=== PATIENT | female | born 1970 | race Caucasian/White ===

== ENCOUNTER 2020-07-21 18:38 | Inpatient (IN) | payer MEDICARE, MEDICAID, SELFPAY ==
[2020-07-21] VITALS (10 sets, daily range): BP systolic 111–118; BP diastolic 59–66; PULSE 80–122; RESP 16–24; TEMP 36.6; O2SAT 94–97; BMI 45.7
--- NOTE | ~2020-07-21 | XR_ITS ---
EXAMINATION: XR HUMERUS, RIGHT CLINICAL INFORMATION: Follow-up humeral head fracture COMPARISON: 08/26/2020 TECHNIQUE: AP and lateral views of the right humerus. FINDINGS: Again seen is the cortical defect in the region of the greater tuberosity which appears less sharp indicative of interval periosteal reaction and some healing. No new fractures are seen. No tendinous calcification is seen. XR/XR humerus RT IMPRESSION: Healing fracture greater tuberosity.
--- NOTE | ~2020-07-21 | XR_ITS ---
EXAMINATION: XR HUMERUS, RIGHT CLINICAL INFORMATION: Injury COMPARISON: None TECHNIQUE: AP and lateral views of the right humerus. FINDINGS: There is a nondisplaced fracture of the humeral head at the tuberosity. No dislocation. XR/XR humerus RT IMPRESSION: Nondisplaced fracture of the humeral head tuberosity.
[2020-07-21] MEDS: LORazepam 2 MG/ML VIAL IM (19:09)
[2020-07-21] MEDS: Haloperidol Lactate 5 MG/ML VIAL IM (19:09)
[2020-07-21] MEDS: OLANZapine 10 MG VIAL 5 MG IM (20:00)
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
[2020-07-21 23:33] LABS: MANUAL DIFF FLAG NO
[2020-07-21 23:34] LABS: Basophils Absolute Auto 0.1 X10*3/uL (0.0-0.2); Basophils Percent Auto 0.3 % (0-2); Eosinophils Percent Auto 0.2 % (0-4); Hematocrit 43.8 % (37-47); Hemoglobin 14.9 g/dl (12.0-16.0); Imm Gran Abs Auto 0.07 X10*3/uL (0.00-0.03); Imm Gran Pct Auto 0.4 % (0.0-0.4); Lymphocytes Absolute Auto 2.7 X10*3/uL (1.2-4.9); Lymphocytes Percent Auto 15.1 % (20-40); Mean Corpuscular Hemoglobin 32.2 pg (27.0-33.0); Mean Corpuscular Volume 94.6 fL (80-98); Mean Platelet Volume 9.4 fL (9.4-12.3); Monocytes Percent Auto 5.3 % (2-11); Neutrophils Absolute Auto 14.3 X10*3/uL (2.0-8.3); Neutrophils Percent Auto 78.7 % (45-73); Platelet Count 277 X10*3/uL (160-400); Red Blood Count 4.63 X10*6/uL (4.20-5.50); Red Cell Distribution Width 12.1 % (11.0-16.0); White Blood Count 18.1 X10*3/uL (4.8-10.8)
[2020-07-22] VITALS (8 sets, daily range): BP systolic 111; BP diastolic 63–69; PULSE 73–84; RESP 16–20; O2SAT 98
[2020-07-22 00:10] LABS: Ethanol < 10 mg/dL
[2020-07-22 00:14] LABS: Alanine Aminotransferase 28 U/L (0-31); Alkaline Phosphatase 97 U/L (39-117); Anion Gap 14 (12-20); Aspartate Amino Transferase 25 U/L (5-31); Bilirubin Total 0.8 mg/dL (0.0-1.0); Blood Urea Nitrogen 10 mg/dL (9-16); Calcium 9.1 mg/dL (8.4-10.2); Carbon Dioxide 22 mmol/L (22-29); Chloride 107 mmol/L (96-108); Creatinine Clr Calc Pharmacy 102.7; Estimated Glomerular Filt Rate > 60; Glucose Random 102 mg/dL (60-115); Potassium 3.8 mmol/L (3.3-5.1); Sodium 139 mmol/L (135-145); Total Protein 6.2 g/dL (6.5-8.0)
[2020-07-22 00:20] LABS: HCG Quantitative < 2 mIU/mL
[2020-07-22 02:47] LABS: COVID-19 Test Negative (Negative); IDNOW Serial# 9DD0AD1C
--- NOTE | 2020-07-22 02:50 | PC.NURSE ---
PT SLEEPING. SITTER AT BEDSIDE.
--- NOTE | 2020-07-22 08:59 | PC.NURSE ---
PT EATING BREAKFAST. NEEDS FREQUENT RE-DIRECTION. SITTER MAINTAINED. NOT COOPERATIVE FOR EKG
--- NOTE | 2020-07-22 10:20 | PC.NURSE ---
Pt continues to refuse all care including VS, covid swab, and EKG. Unable to give psych meds at this time due to a need for an EKG prior to administration. Will continue to encourage pt to allow care. Sitter at bedside.
--- NOTE | 2020-07-22 11:54 | PC.NURSE ---
Pt sleeping in bed. She was awakened and asked if we may obtain VS and an EKG. She continues to refuse at this time.
--- NOTE | 2020-07-22 12:07 | PC.NURSE ---
ADRIANA telles- Pt was seen yesterday and is an inpatient psych bed search. She is due for ADRIANA re-eval at 5pm.
[2020-07-22] MEDS: OLANZapine 10 MG VIAL 5 MG IM (14:50)
--- NOTE | 2020-07-22 15:02 | PC.NURSE ---
Addendum entered by Vanesa Miramontes RN 07/22/20 16:25: Pt continues to refuse VS and EKG. She is sleeping but is still uncooperative when she wakes. Jennifer SKIN PEELING MACHINE OPERATOR aware and staff aware. Original Note: Bed on M5. Pt refusing to go and becoming increasingly agitated. Per SKIN PEELING MACHINE OPERATOR give 5mg IM Zyprexa and obtain VS and EKG if able after the injection. Pt was cooperative for the injection but afterward became very upset and combative. Security able to calm her down. M5 called for report. Awaiting call back at this time.
--- NOTE | 2020-07-22 19:14 | PC.ADMIT ---
Nursing admission note: 49 year old female DX: Other specified schizophrenia spectrum and other psychotic disorder. A + O x2 place and name. Referred for admission by [facility],arrived approx 1630. Admitted on section 12b. Patient had been aggressive prior to admission. Engaged for brief period, preoccupied, delayed responses, hard stare at times. Refused to sign any legal documents or MELANIE. Oriented to unit, placed on 5 min checks. Medicated in ED prior to admission with Zyprexa 5mg IM. Patient disorganized and disoriented. Is currently [facility] the [facility]. Is marginally cooperative, in need of frequent redirection. She has been non compliant with medications at [facility] for unknown period of time 2-3 months. House was called for information regarding Ochoa order and last Invega injection, spoke to Deisi who reported last injection Invega 234mg was between April and May 2020, did not believe patient is currently on Ochoa order. Patient reports they pulled me out of bed, I new it wasn't the police or EMT and I don't know why they brought me here . Patient reports I don't take medicine . States she has not been sleeping well. She is dressed in hospital attire, disheveled and malodorous. 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 Patient denies any medical problems. Allergy includes Demerol HCl, Acetaminophen and latex. Tox screen was not obtained, COVID negative. Dr. Painter contacted for admission orders. See crisis evaluation for further details.
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
--- NOTE | 2020-07-24 13:37 | HO.PSYCHPN ---
Subjective Subjective Date of Service: 07/24/20 Reason For Visit: aggression Subjective Notes: Section 12B (07/26/20) Interim History: Pt declines to meet. Collateral contact with Meño Calderon who has worked with pt since pandemic began. Pt in a [facility] setting for a brief time. Prior to this she was in the [facility] 04/2019. Partner's mother has been very involved with pt. While living in that area pt was overusing substances while taking prescribed medications-she improved with medication decrease and Invega Sustenna. She began refusing a few months ago as she discussed not needing medication and experiencing a SE of tiredness. Overall impression by her team is that she did well on Invega Sustenna. Current time frame is anniversary of loss and changes 04/2019-07/2019. Pt has been declining with ADL's, decrease in her appetite, medication non-compliance, poor sleep, paranoia, throwing coffee at her staff, insighting fear in house-mates, aggression, refusing all medical appointments for the past two months, delusional content, misinterpreting identity of others, making accusations of friends in community and unable to accept assistance of any sort. Medication Compliance: No Side effects from medications: Yes (reported to out pt team sedation with Invega Sustenna) Attending Groups: No Review of Systems Review of Systems Yes Unobtainable due to mental status Reports behavioral changes Psychiatric: Reports abnormal sleep pattern, Reports anxiety, Reports behavioral changes, Reports change in appetite, Reports depression, Reports difficulty concentrating, Reports auditory hallucinations, Reports hopelessness, Reports irritability, Reports anhedonia, Reports mood swings and Reports paranoia Mental Status Exam Mental Status Exam Patient Appearance: Disheveled, Unkempt and Malodorous Patient Orientation: Person Level of Consciousness: Awake Patient Behavior: Guarded, Suspicious, Anxious, Fearful, Resistive to Care, Avoidant, Distractible, Isolative and Uncooperative Mood Description: Suspicious, Withdrawn, Constricted, Fearful, Hostile, Anxious, Angry, Sad, Nervous and Apprehensive Affect Description: Constricted Patient Cognition Impaired: Yes Ability to Follow Directions: Poor Speech Pattern: Impoverished, Soft-Spoken and Delayed Hallucinations: Auditory (appears to be responding) Delusions: Paranoid Ideation Perceptual Disturbances: Hallucinations Thought Process: Illogical, Distracted, Rumination and Slowed Thinking Thought Content: positive for Perseveration Depressive Symptoms: Insomnia, Increased Irritability, Difficulty Sleeping, Changes in Appetite, Loss of Int. in Activity, Unhappiness, Loss of Energy and Difficulty Concentrating Abnormal Motor Activity Signs and Symptoms: Restlessness Judgement: Poor Diagnostics Vital Signs (24Hr): Body Mass Index 45.7 Labs Results: 07/21/20 23:28 07/21/20 23:28 Medications Medications Current Medications Generic Name Dose Route Start Last Admin Trade Name Freq PRN Reason Stop Dose Admin Al Hydroxide/Mg Hydroxide 30 ml 07/22/20 16:17 Magnesium Hydrox/Alum Hydrox 30 Ml Oral.Susp PO Q6H PRN Heartburn/Nausea Albuterol Sulfate 2 puff 07/22/20 17:54 Albuterol Sulfate 90 Mcg 8 Gm Inhaler INHALE Q4H PRN Shortness Of Breath Or Wheezing Clonazepam 0.5 mg 07/22/20 17:54 Clonazepam 0.5 Mg Tablet PO Q4H PRN Anxiety Hydroxyzine HCl 25 mg 07/22/20 16:17 Hydroxyzine Hcl 25 Mg Tablet PO BEDTIME PRN Anxiety Lisinopril 5 mg 07/23/20 09:00 07/24/20 09:24 Lisinopril 5 Mg Tablet PO Not Given DAILY [facility] Protocol Magnesium Hydroxide 30 ml 07/22/20 16:17 Milk Of Magnesia 30 Ml Oral.Susp PO DAILY PRN Constipation Melatonin 3 mg 07/22/20 17:58 Melatonin 3 Mg Tablet PO BEDTIME PRN Insomnia Metoprolol Tartrate 25 mg 07/22/20 21:00 07/24/20 09:24 Metoprolol Tartrate 25 Mg Tablet PO Not Given BID [facility] Protocol Multivitamins/Vitamin C 1 tab 07/23/20 09:00 07/24/20 09:25 Multivitamin Tablet PO Not Given DAILY [facility] Naloxone HCl 4 mg 07/22/20 17:54 Naloxone Hcl Nasal 4 Mg [place] NOSTRILALT 07/28/20 23:59 Q3M PRN Opioid Overdose Non-Formulary Medication 1 appl 07/23/20 09:00 Metronidazole [Metrogel] TOPICAL 07/28/20 23:59 DAILY [facility] Nystatin 1 appl 07/22/20 21:00 07/24/20 09:25 Nystatin Powder 15 Gm Bottle TOPICAL Not Given BID [facility] Protocol Paliperidone 3 mg 07/23/20 11:40 07/24/20 09:25 Paliperidone Er 3 Mg Tab.Er.24 PO Not Given DAILY [facility] Paliperidone Palmitate 234 mg 07/22/20 17:54 Paliperidone Palmitate 234 Mg/1.5 Ml Syringe IM Q30D [facility] Senna 17.2 mg 07/22/20 17:59 Sennosides 8.6 Mg Tablet PO DAILY PRN Constipation Trazodone HCl 50 mg 07/22/20 16:17 Trazodone Hcl 50 Mg Tablet PO BEDTIME PRN Insomnia Allergies Allergies Allergy/AdvReac Type Severity Reaction Status Date / Time acetaminophen [From TYLENOL] Allergy Intermediate HIVES Verified 07/22/20 02:13 meperidine [From Demerol] Allergy Unknown Verified 07/22/20 02:10 Assessment & Plan Assessment & Plan (1) Schizo affective schizophrenia: Status: Acute Code(s): F25.9 - Schizoaffective disorder, unspecified Assessment and Plan: -Attempt to initiate alliance of treatment with pt. -Consider civil commitment process if pt continues to refuse care. Greater than 50% of the session was spent on counseling and/or coordination of care Reason for contiued inpatient stay Substantial Risk for: harm to self, harm to others, inability to function and rapid decompensation
--- NOTE | 2020-07-25 17:23 | HO.PSYCHPN ---
Subjective Subjective Date of Service: 07/25/20 Reason For Visit: aggression Subjective Notes: Section 12B Interim History: Withdrawn, in bed, refuses to talk with TW, pulls blankets over her head. Section 12B ends on 07/26/20. Will file for consideration for civil commitment. Medication Compliance: No Side effects from medications: No Attending Groups: No Review of Systems Review of Systems Yes Unobtainable due to mental status Reports behavioral changes Psychiatric: Reports behavioral changes, Reports auditory hallucinations, Reports irritability, Reports anhedonia, Reports mood swings, Reports paranoia, Reports visual hallucinations, Reports hallucinations and Reports homicidal ideation Mental Status Exam Mental Status Exam Patient Appearance: Disheveled, Unkempt and Malodorous Patient Orientation: Person Level of Consciousness: Awake Patient Behavior: Guarded, Suspicious, Aggressive, Anxious, Fearful, Resistive to Care, Avoidant, Fatigued, Distractible, Isolative, Uncooperative, Impulsive and Poor Eye Contact Mood Description: Suspicious, Withdrawn, Depressed, Fearful, Hostile, Anxious, Labile, Angry, Sad and Apprehensive Affect Description: Withdrawn, Labile and Angry Patient Cognition Impaired: Yes Ability to Follow Directions: Poor Speech Pattern: Impoverished and Poor Articulation Memory Description: Remote Impaired, Immediate Impaired, Nursing Home Impaired, Episodic Impaired, Recent Impaired, Working Impaired and Semantic Impaired Hallucinations: Auditory and Visual Delusions: Paranoid Ideation and Present Perceptual Disturbances: Hallucinations Thought Process: Illogical, Distracted and Rumination Thought Content: positive for Perseveration, positive for Preoccupation, positive for Thought Blocking, positive for Slowed Thinking, positive for Tangential and positive for Disorganized Depressive Symptoms: Increased Irritability, Difficulty Sleeping, Changes in Appetite, Loss of Int. in Activity, Feelings of Worthlessness, Hopelessness, Isolating-Friends/Family, Unhappiness, Increased Fatigue, Low Self Esteem, Loss of Energy and Difficulty Concentrating Judgement: Poor Diagnostics Vital Signs (24Hr): Body Mass Index 45.7 Labs Results: 07/21/20 23:28 07/21/20 23:28 Medications Medications Current Medications Generic Name Dose Route Start Last Admin Trade Name Freq PRN Reason Stop Dose Admin Al Hydroxide/Mg Hydroxide 30 ml 07/22/20 16:17 Magnesium Hydrox/Alum Hydrox 30 Ml Oral.Susp PO Q6H PRN Heartburn/Nausea Albuterol Sulfate 2 puff 07/22/20 17:54 Albuterol Sulfate 90 Mcg 8 Gm Inhaler INHALE Q4H PRN Shortness Of Breath Or Wheezing Clonazepam 0.5 mg 07/22/20 17:54 Clonazepam 0.5 Mg Tablet PO Q4H PRN Anxiety Hydroxyzine HCl 25 mg 07/22/20 16:17 Hydroxyzine Hcl 25 Mg Tablet PO BEDTIME PRN Anxiety Lisinopril 5 mg 07/23/20 09:00 07/25/20 09:28 Lisinopril 5 Mg Tablet PO Not Given DAILY [facility] Protocol Magnesium Hydroxide 30 ml 07/22/20 16:17 Milk Of Magnesia 30 Ml Oral.Susp PO DAILY PRN Constipation Melatonin 3 mg 07/22/20 17:58 Melatonin 3 Mg Tablet PO BEDTIME PRN Insomnia Metoprolol Tartrate 25 mg 07/22/20 21:00 07/25/20 09:29 Metoprolol Tartrate 25 Mg Tablet PO Not Given BID [facility] Protocol Multivitamins/Vitamin C 1 tab 07/23/20 09:00 07/25/20 09:29 Multivitamin Tablet PO Not Given DAILY [facility] Naloxone HCl 4 mg 07/22/20 17:54 Naloxone Hcl Nasal 4 Mg [place] NOSTRILALT 07/28/20 23:59 Q3M PRN Opioid Overdose Non-Formulary Medication 1 appl 07/23/20 09:00 Metronidazole [Metrogel] TOPICAL 07/28/20 23:59 DAILY [facility] Nystatin 1 appl 07/22/20 21:00 07/25/20 09:30 Nystatin Powder 15 Gm Bottle TOPICAL Not Given BID [facility] Protocol Paliperidone 3 mg 07/23/20 11:40 07/25/20 09:29 Paliperidone Er 3 Mg Tab.Er.24 PO Not Given DAILY [facility] Paliperidone Palmitate 234 mg 07/22/20 17:54 Paliperidone Palmitate 234 Mg/1.5 Ml Syringe IM Q30D [facility] Senna 17.2 mg 07/22/20 17:59 Sennosides 8.6 Mg Tablet PO DAILY PRN Constipation Trazodone HCl 50 mg 07/22/20 16:17 Trazodone Hcl 50 Mg Tablet PO BEDTIME PRN Insomnia Allergies Allergies Allergy/AdvReac Type Severity Reaction Status Date / Time acetaminophen [From TYLENOL] Allergy Intermediate HIVES Verified 07/22/20 02:13 meperidine [From Demerol] Allergy Unknown Verified 07/22/20 02:10 Assessment & Plan Assessment & Plan (1) Schizo affective schizophrenia: Status: Acute Code(s): F25.9 - Schizoaffective disorder, unspecified Assessment and Plan: Refusing interaction, refusing medication, appears to be responding to internal stimuli. Collateral contact obtained. Will file for consideration for civil commitment on 07/26/20. Greater than 50% of the session was spent on counseling and/or coordination of care Informed Consent: does not understand Reason for contiued inpatient stay Substantial Risk for: harm to self, harm to others, inability to function, rapid decompensation and med/psych decompensation
[2020-07-25 18:00] VITALS: RESP 14
[2020-07-26 04:50] VITALS: RESP 16
--- NOTE | 2020-07-26 17:10 | P.PNPSI_ITS ---
Subjective Subjective Date of Service: 07/26/20 Reason For Visit: aggression Subjective Notes: Section 7 Interim History: Visible in milieu. 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 Appears pre-occupied, not engaging much in her environment. Medication Compliance: No Side effects from medications: No Attending Groups: No Review of Systems Review of Systems Yes Unobtainable due to mental status Reports behavioral changes and Reports confusion Psychiatric: Reports anxiety, Reports behavioral changes, Reports confusion, Reports depression, Reports difficulty concentrating, Reports auditory hallucinations, Reports hopelessness, Reports irritability, Reports paranoia and Reports hallucinations Mental Status Exam Mental Status Exam Patient Appearance: Disheveled and Unkempt Patient Orientation: Person Level of Consciousness: Alert Patient Behavior: Guarded, Suspicious, Anxious, Fearful, Resistive to Care, Avoidant, Fatigued, Distractible, Isolative, Uncooperative and Poor Eye Contact Mood Description: Apathetic, Suspicious, Withdrawn, Hostile and Blunted Affect Description: Withdrawn Patient Cognition Impaired: Yes Ability to Follow Directions: Fair Speech Pattern: Impoverished, Delayed and Poor Articulation Memory Description: Remote Impaired, [facility] Impaired, Episodic Impaired and Recent Impaired Hallucinations: Auditory Delusions: Paranoid Ideation and Present Thought Process: Illogical, Distracted and Rumination Thought Content: positive for Perseveration and positive for Preoccupation Depressive Symptoms: Increased Irritability, Changes in Appetite, Loss of Int. in Activity, Unhappiness, Increased Fatigue, Loss of Energy and Difficulty Concentrating Diagnostics Vital Signs (24Hr): Vital Signs - 24 hr 07/25/20 18:00 07/26/20 04:50 Respiratory Rate 14 16 Body Mass Index 45.7 Labs Results: 07/21/20 23:28 07/21/20 23:28 Medications Medications Current Medications Generic Name Dose Route Start Last Admin Trade Name Freq PRN Reason Stop Dose Admin Al Hydroxide/Mg Hydroxide 30 ml 07/22/20 16:17 Magnesium Hydrox/Alum Hydrox 30 Ml Oral.Susp PO Q6H PRN Heartburn/Nausea Albuterol Sulfate 2 puff 07/22/20 17:54 Albuterol Sulfate 90 Mcg 8 Gm Inhaler INHALE Q4H PRN Shortness Of Breath Or Wheezing Clonazepam 0.5 mg 07/22/20 17:54 Clonazepam 0.5 Mg Tablet PO Q4H PRN Anxiety Hydroxyzine HCl 25 mg 07/22/20 16:17 Hydroxyzine Hcl 25 Mg Tablet PO BEDTIME PRN Anxiety Lisinopril 5 mg 07/23/20 09:00 07/26/20 12:14 Lisinopril 5 Mg Tablet PO Not Given DAILY [facility] Protocol Magnesium Hydroxide 30 ml 07/22/20 16:17 Milk Of Magnesia 30 Ml Oral.Susp PO DAILY PRN Constipation Melatonin 3 mg 07/22/20 17:58 Melatonin 3 Mg Tablet PO BEDTIME PRN Insomnia Metoprolol Tartrate 25 mg 07/22/20 21:00 07/26/20 12:14 Metoprolol Tartrate 25 Mg Tablet PO Not Given BID [facility] Protocol Multivitamins/Vitamin C 1 tab 07/23/20 09:00 07/26/20 12:14 Multivitamin Tablet PO Not Given DAILY [facility] Naloxone HCl 4 mg 07/22/20 17:54 Naloxone Hcl Nasal 4 Mg [place] NOSTRILALT 07/28/20 23:59 Q3M PRN Opioid Overdose Non-Formulary Medication 1 appl 07/23/20 09:00 Metronidazole [Metrogel] TOPICAL 07/28/20 23:59 DAILY [facility] Nystatin 1 appl 07/22/20 21:00 07/26/20 12:15 Nystatin Powder 15 Gm Bottle TOPICAL Not Given BID [facility] Protocol Paliperidone 3 mg 07/23/20 11:40 07/26/20 12:15 Paliperidone Er 3 Mg Tab.Er.24 PO Not Given DAILY [facility] Paliperidone Palmitate 234 mg 07/22/20 17:54 Paliperidone Palmitate 234 Mg/1.5 Ml Syringe IM Q30D [facility] Senna 17.2 mg 07/22/20 17:59 Sennosides 8.6 Mg Tablet PO DAILY PRN Constipation Trazodone HCl 50 mg 07/22/20 16:17 Trazodone Hcl 50 Mg Tablet PO BEDTIME PRN Insomnia Allergies Allergies Allergy/AdvReac Type Severity Reaction Status Date / Time acetaminophen [From TYLENOL] Allergy Intermediate HIVES Verified 07/22/20 02:13 meperidine [From Demerol] Allergy Unknown Verified 07/22/20 02:10 Assessment & Plan Assessment & Plan (1) Schizo affective schizophrenia: Status: Acute Code(s): F25.9 - Schizoaffective disorder, unspecified Assessment and Plan: -Court 08/01/20 to file for civil commitment Greater than 50% of the session was spent on counseling and/or coordination of care Informed Consent: does not understand Reason for contiued inpatient stay Substantial Risk for: harm to self, harm to others, inability to function and rapid decompensation
--- NOTE | 2020-07-27 13:09 | HO.PSYCHPN ---
Subjective Subjective Date of Service: 07/27/20 Reason For Visit: aggression Subjective Notes: Section 7 Interim History: Approached pt to discuss Section VII and upcoming court proceedings. She again refuses to engage in a discussion stating we are not here . Declines to talk. Visable in milieu-eating and drinking, minimal ADL attention-appears to be preoccupied, unaware of environment at times and responding to internal stimuli. Medication Compliance: No Side effects from medications: No Attending Groups: No (Will sit in the common area and at times observe, at times unaware of env.) Review of Systems Review of Systems Yes Unobtainable due to mental status Reports behavioral changes and Reports confusion Psychiatric: Reports behavioral changes, Reports confusion, Reports depression, Reports difficulty concentrating, Reports auditory hallucinations, Reports hopelessness, Reports irritability, Reports anhedonia, Reports mood swings and Reports paranoia Mental Status Exam Mental Status Exam Patient Appearance: Unkempt Patient Orientation: Person Level of Consciousness: Awake Patient Behavior: Guarded, Suspicious, Wandering, Anxious, Fearful, Resistive to Care, Avoidant, Fatigued, Distractible, Isolative and Uncooperative Mood Description: Apathetic, Withdrawn, Constricted, Depressed, Hostile and Angry Affect Description: Constricted and Angry Patient Cognition Impaired: Yes Ability to Follow Directions: Poor Speech Pattern: Impoverished, Difficulty Finding Words and Spontaneous Speech Hallucinations: Auditory Delusions: Present Thought Process: Illogical, Distracted and Rumination Thought Content: positive for Flight of Ideas, positive for Perseveration, positive for Thought Blocking and positive for Tangential Depressive Symptoms: Increased Anxiety, Diff. Making Decisions, Loss of Int. in Activity, Isolating-Friends/Family, Unhappiness, Increased Fatigue and Difficulty Concentrating Judgement: Poor Diagnostics Vital Signs (24Hr): Body Mass Index 45.7 Labs Results: 07/21/20 23:28 07/21/20 23:28 Medications Medications Current Medications Generic Name Dose Route Start Last Admin Trade Name Freq PRN Reason Stop Dose Admin Al Hydroxide/Mg Hydroxide 30 ml 07/22/20 16:17 Magnesium Hydrox/Alum Hydrox 30 Ml Oral.Susp PO Q6H PRN Heartburn/Nausea Albuterol Sulfate 2 puff 07/22/20 17:54 Albuterol Sulfate 90 Mcg 8 Gm Inhaler INHALE Q4H PRN Shortness Of Breath Or Wheezing Clonazepam 0.5 mg 07/22/20 17:54 Clonazepam 0.5 Mg Tablet PO Q4H PRN Anxiety Hydroxyzine HCl 25 mg 07/22/20 16:17 Hydroxyzine Hcl 25 Mg Tablet PO BEDTIME PRN Anxiety Lisinopril 5 mg 07/23/20 09:00 07/27/20 11:08 Lisinopril 5 Mg Tablet PO Not Given DAILY [facility] Protocol Magnesium Hydroxide 30 ml 07/22/20 16:17 Milk Of Magnesia 30 Ml Oral.Susp PO DAILY PRN Constipation Melatonin 3 mg 07/22/20 17:58 Melatonin 3 Mg Tablet PO BEDTIME PRN Insomnia Metoprolol Tartrate 25 mg 07/22/20 21:00 07/27/20 11:10 Metoprolol Tartrate 25 Mg Tablet PO Not Given BID [facility] Protocol Multivitamins/Vitamin C 1 tab 07/23/20 09:00 07/27/20 11:10 Multivitamin Tablet PO Not Given DAILY [facility] Naloxone HCl 4 mg 07/22/20 17:54 Naloxone Hcl Nasal 4 Mg [place] NOSTRILALT 07/28/20 23:59 Q3M PRN Opioid Overdose Non-Formulary Medication 1 appl 07/23/20 09:00 Metronidazole [Metrogel] TOPICAL 07/28/20 23:59 DAILY [facility] Nystatin 1 appl 07/22/20 21:00 07/27/20 11:10 Nystatin Powder 15 Gm Bottle TOPICAL Not Given BID [facility] Protocol Paliperidone 3 mg 07/23/20 11:40 07/27/20 11:10 Paliperidone Er 3 Mg Tab.Er.24 PO Not Given DAILY [facility] Paliperidone Palmitate 234 mg 07/22/20 17:54 Paliperidone Palmitate 234 Mg/1.5 Ml Syringe IM Q30D [facility] Senna 17.2 mg 07/22/20 17:59 Sennosides 8.6 Mg Tablet PO DAILY PRN Constipation Trazodone HCl 50 mg 07/22/20 16:17 Trazodone Hcl 50 Mg Tablet PO BEDTIME PRN Insomnia Allergies Allergies Allergy/AdvReac Type Severity Reaction Status Date / Time acetaminophen [From TYLENOL] Allergy Intermediate HIVES Verified 07/22/20 02:13 meperidine [From Demerol] Allergy Unknown Verified 07/22/20 02:10 Assessment & Plan Assessment & Plan (1) Schizo affective schizophrenia: Status: Acute Code(s): F25.9 - Schizoaffective disorder, unspecified Assessment and Plan: -Continue to approach and monitor pt. -Court 08/01/20. Greater than 50% of the session was spent on counseling and/or coordination of care Reason for contiued inpatient stay Substantial Risk for: inability to function and rapid decompensation
--- NOTE | 2020-07-28 14:01 | HO.PSYCHPN ---
Subjective Subjective Date of Service: 07/28/20 Reason For Visit: aggression Subjective Notes: Section 7 Interim History: Continues to refuse to meet to discuss her treatment. Visable in milieu. Team reports she is sleeping and eating well. She will now maintain eye contact, speaks infrequently except to refuse what is requested and appears to gaze through at times with a decrease in visual focus. Appears to respond to internal stimuli-although denies to team and does not answer when TW asks. Also appears to have some confusion in recognition of people. Today, smiled as I walked to her as if she knew me then when I attempted to talk with her she was briefly startled and rejecting of interaction. Per team, pt's last Invega Sustenna injection 2019. Medication Compliance: No Side effects from medications: No Attending Groups: No Review of Systems Review of Systems Yes Unobtainable due to mental status Reports behavioral changes and Reports confusion Psychiatric: Reports behavioral changes, Reports confusion, Reports depression, Reports difficulty concentrating, Reports auditory hallucinations, Reports hopelessness, Reports irritability, Reports anhedonia, Reports mood swings, Reports paranoia and Reports hallucinations Mental Status Exam Mental Status Exam Patient Appearance: Disheveled, Inappropriate, Unkempt and Malodorous Patient Orientation: Person Level of Consciousness: Awake Patient Behavior: Guarded, Suspicious, Anxious, Fearful, Resistive to Care, Avoidant, Fatigued, Distractible, Confused, Isolative, Uncooperative and Poor Eye Contact Mood Description: Apathetic, Suspicious, Withdrawn, Depressed, Fearful, Hostile, Anxious, Angry, Flat, Sad and Apprehensive Affect Description: Constricted, Depressed and Angry Patient Cognition Impaired: Yes Ability to Follow Directions: Fair Speech Pattern: Impoverished, Spontaneous Speech and Soft-Spoken Memory Description: Remote Impaired, Immediate Impaired, Mcc Impaired, Episodic Impaired and Recent Impaired Hallucinations: Auditory Delusions: Paranoid Ideation and Present Perceptual Disturbances: Derealization Thought Process: Disoriented, Distracted and Rumination Thought Content: positive for [place] and positive for Perseveration Depressive Symptoms: Increased Anxiety, Increased Irritability, Sleeping More Than Usual, Loss of Int. in Activity, Hopelessness, Isolating-Friends/Family, Unhappiness, Increased Fatigue, Loss of Energy and Difficulty Concentrating Judgement: Poor Diagnostics Vital Signs (24Hr): Body Mass Index 45.7 Labs Results: 07/21/20 23:28 07/21/20 23:28 Medications Medications Current Medications Generic Name Dose Route Start Last Admin Trade Name Freq PRN Reason Stop Dose Admin Al Hydroxide/Mg Hydroxide 30 ml 07/22/20 16:17 Magnesium Hydrox/Alum Hydrox 30 Ml Oral.Susp PO Q6H PRN Heartburn/Nausea Albuterol Sulfate 2 puff 07/22/20 17:54 Albuterol Sulfate 90 Mcg 8 Gm Inhaler INHALE Q4H PRN Shortness Of Breath Or Wheezing Clonazepam 0.5 mg 07/22/20 17:54 Clonazepam 0.5 Mg Tablet PO Q4H PRN Anxiety Hydroxyzine HCl 25 mg 07/22/20 16:17 Hydroxyzine Hcl 25 Mg Tablet PO BEDTIME PRN Anxiety Lisinopril 5 mg 07/23/20 09:00 07/28/20 08:33 Lisinopril 5 Mg Tablet PO Not Given DAILY [facility] Protocol Magnesium Hydroxide 30 ml 07/22/20 16:17 Milk Of Magnesia 30 Ml Oral.Susp PO DAILY PRN Constipation Melatonin 3 mg 07/22/20 17:58 Melatonin 3 Mg Tablet PO BEDTIME PRN Insomnia Metoprolol Tartrate 25 mg 07/22/20 21:00 07/28/20 08:33 Metoprolol Tartrate 25 Mg Tablet PO Not Given BID [facility] Protocol Multivitamins/Vitamin C 1 tab 07/23/20 09:00 07/28/20 08:33 Multivitamin Tablet PO Not Given DAILY [facility] Naloxone HCl 4 mg 07/22/20 17:54 Naloxone Hcl Nasal 4 Mg [place] NOSTRILALT 07/28/20 23:59 Q3M PRN Opioid Overdose Non-Formulary Medication 1 appl 07/23/20 09:00 Metronidazole [Metrogel] TOPICAL 07/28/20 23:59 DAILY [facility] Nystatin 1 appl 07/22/20 21:00 07/28/20 08:33 Nystatin Powder 15 Gm Bottle TOPICAL Not Given BID [facility] Protocol Paliperidone 3 mg 07/23/20 11:40 07/28/20 08:33 Paliperidone Er 3 Mg Tab.Er.24 PO Not Given DAILY [facility] Paliperidone Palmitate 234 mg 07/22/20 17:54 Paliperidone Palmitate 234 Mg/1.5 Ml Syringe IM Q30D [facility] Senna 17.2 mg 07/22/20 17:59 Sennosides 8.6 Mg Tablet PO DAILY PRN Constipation Trazodone HCl 50 mg 07/22/20 16:17 Trazodone Hcl 50 Mg Tablet PO BEDTIME PRN Insomnia Allergies Allergies Allergy/AdvReac Type Severity Reaction Status Date / Time acetaminophen [From TYLENOL] Allergy Intermediate HIVES Verified 07/22/20 02:13 meperidine [From Demerol] Allergy Unknown Verified 07/22/20 02:10 Assessment & Plan Assessment & Plan (1) Schizo affective schizophrenia: Status: Acute Code(s): F25.9 - Schizoaffective disorder, unspecified Assessment and Plan: Continue to approach pt to build alliance Court date is changed to 08/03/20. Greater than 50% of the session was spent on counseling and/or coordination of care Reason for contiued inpatient stay Substantial Risk for: harm to self, harm to others, inability to function and rapid decompensation
[2020-07-29 06:00] VITALS: RESP 18
--- NOTE | 2020-07-29 21:44 | HO.PSYCHPN ---
Subjective Subjective Date of Service: 07/29/20 Reason For Visit: aggression Mental Status Exam Mental Status Exam Patient Appearance: Disheveled, Inappropriate, Unkempt and Malodorous Patient Orientation: Person Level of Consciousness: Awake Patient Behavior: Guarded, Suspicious, Anxious, Fearful, Resistive to Care, Avoidant, Fatigued, Distractible, Confused, Isolative, Uncooperative and Poor Eye Contact Mood Description: Apathetic, Suspicious, Withdrawn, Depressed, Fearful, Hostile, Anxious, Angry, Flat, Sad and Apprehensive Affect Description: Constricted, Depressed and Angry Patient Cognition Impaired: Yes Ability to Follow Directions: Fair Speech Pattern: Impoverished, Spontaneous Speech and Soft-Spoken Memory Description: Remote Impaired, Immediate Impaired, Shelter Impaired, Episodic Impaired and Recent Impaired Hallucinations: Auditory Delusions: Paranoid Ideation and Present Perceptual Disturbances: Derealization Thought Process: Disoriented, Distracted and Rumination Thought Content: positive for [place] and positive for [place] Depressive Symptoms: Increased Anxiety, Increased Irritability, Sleeping More Than Usual, Loss of Int. in Activity, Hopelessness, Isolating-Friends/Family, Unhappiness, Increased Fatigue, Loss of Energy and Difficulty Concentrating Judgement: Poor Diagnostics Vital Signs (24Hr): Vital Signs - 24 hr 07/29/20 06:00 Respiratory Rate 18 Body Mass Index 45.7 Labs Results: 07/21/20 23:28 07/21/20 23:28 Medications Medications Current Medications Generic Name Dose Route Start Last Admin Trade Name Freq PRN Reason Stop Dose Admin Al Hydroxide/Mg Hydroxide 30 ml 07/22/20 16:17 Magnesium Hydrox/Alum Hydrox 30 Ml Oral.Susp PO Q6H PRN Heartburn/Nausea Albuterol Sulfate 2 puff 07/22/20 17:54 Albuterol Sulfate 90 Mcg 8 Gm Inhaler INHALE Q4H PRN Shortness Of Breath Or Wheezing Clonazepam 0.5 mg 07/22/20 17:54 Clonazepam 0.5 Mg Tablet PO Q4H PRN Anxiety Hydroxyzine HCl 25 mg 07/22/20 16:17 Hydroxyzine Hcl 25 Mg Tablet PO BEDTIME PRN Anxiety Lisinopril 5 mg 07/23/20 09:00 07/29/20 09:34 Lisinopril 5 Mg Tablet PO Not Given DAILY [facility] Protocol Magnesium Hydroxide 30 ml 07/22/20 16:17 Milk Of Magnesia 30 Ml Oral.Susp PO DAILY PRN Constipation Melatonin 3 mg 07/22/20 17:58 Melatonin 3 Mg Tablet PO BEDTIME PRN Insomnia Metoprolol Tartrate 25 mg 07/22/20 21:00 07/29/20 21:44 Metoprolol Tartrate 25 Mg Tablet PO Not Given BID [facility] Protocol Multivitamins/Vitamin C 1 tab 07/23/20 09:00 07/29/20 09:33 Multivitamin Tablet PO Not Given DAILY [facility] Non-Formulary Medication 1 appl 07/23/20 09:00 Metronidazole [Metrogel] TOPICAL 07/28/20 23:59 DAILY [facility] Nystatin 1 appl 07/22/20 21:00 07/29/20 09:33 Nystatin Powder 15 Gm Bottle TOPICAL Not Given BID [facility] Protocol Paliperidone 3 mg 07/23/20 11:40 07/29/20 09:33 Paliperidone Er 3 Mg Tab.Er.24 PO Not Given DAILY [facility] Paliperidone Palmitate 234 mg 07/22/20 17:54 Paliperidone Palmitate 234 Mg/1.5 Ml Syringe IM Q30D [facility] Senna 17.2 mg 07/22/20 17:59 Sennosides 8.6 Mg Tablet PO DAILY PRN Constipation Trazodone HCl 50 mg 07/22/20 16:17 Trazodone Hcl 50 Mg Tablet PO BEDTIME PRN Insomnia Allergies Allergies Allergy/AdvReac Type Severity Reaction Status Date / Time acetaminophen [From TYLENOL] Allergy Intermediate HIVES Verified 07/22/20 02:13 meperidine [From Demerol] Allergy Unknown Verified 07/22/20 02:10 Assessment & Plan Assessment & Plan (1) Schizo affective schizophrenia: Status: Acute Code(s): F25.9 - Schizoaffective disorder, unspecified Assessment and Plan: Encourage medication patient grossly disorganized flat psychotic Greater than 50% of the session was spent on counseling and/or coordination of care Reason for contiued inpatient stay Substantial Risk for: inability to function and rapid decompensation
[2020-07-30 06:20] VITALS: BP 124/63; PULSE 112; RESP 16; TEMP 36.2
[2020-07-30 09:41] VITALS: BP 124/63; PULSE 112
--- NOTE | 2020-07-30 13:30 | P.PNPSI_ITS ---
Subjective Subjective Date of Service: 07/30/20 Reason For Visit: aggression Subjective Notes: Section 7 Interim History: Patient flat withdrawn internally preoccupied does not engage in conversation has been refusing medication Medication Compliance: No Mental Status Exam Mental Status Exam Narrative: Patient not taking care of herself poor ADLs disheveled would not engage in meaningful conversation observed on the unit Patient Appearance: Disheveled, Inappropriate, Unkempt and Malodorous Patient Orientation: Person Level of Consciousness: Awake and Lethargic Patient Behavior: Guarded, Suspicious, Anxious, Fearful, Resistive to Care, Avoidant, Fatigued, Distractible, Confused, Isolative, Uncooperative and Poor Eye Contact Mood Description: Apathetic, Suspicious, Withdrawn, Depressed, Fearful, Hostile, Anxious, Angry, Flat, Sad and Apprehensive Affect Description: Constricted, Depressed and Angry Patient Cognition Impaired: Yes Ability to Follow Directions: Fair Speech Pattern: Impoverished Memory Description: Remote Impaired, Immediate Impaired, Fci Impaired, Episodic Impaired and Recent Impaired Hallucinations: Auditory Delusions: Paranoid Ideation Thought Process: Disoriented, Distracted and Rumination Thought Content: positive for [place] and positive for [place] Depressive Symptoms: Increased Anxiety, Increased Irritability, Sleeping More Than Usual, Loss of Int. in Activity, Hopelessness, Isolating-Friends/Family, Unhappiness, Increased Fatigue, Loss of Energy and Difficulty Concentrating Abnormal Motor Activity Signs and Symptoms: Psychomotor Retardation Judgement: Poor Diagnostics Vital Signs (24Hr): Vital Signs - 24 hr 07/30/20 06:20 07/30/20 09:41 Temperature 97.2 F Pulse Rate 112 H 112 H Respiratory Rate 16 Blood Pressure 124/63 124/63 Body Mass Index 45.7 Labs Results: 07/21/20 23:28 07/21/20 23:28 Medications Medications Current Medications Generic Name Dose Route Start Last Admin Trade Name Freq PRN Reason Stop Dose Admin Al Hydroxide/Mg Hydroxide 30 ml 07/22/20 16:17 Magnesium Hydrox/Alum Hydrox 30 Ml Oral.Susp PO Q6H PRN Heartburn/Nausea Albuterol Sulfate 2 puff 07/22/20 17:54 Albuterol Sulfate 90 Mcg 8 Gm Inhaler INHALE Q4H PRN Shortness Of Breath Or Wheezing Clonazepam 0.5 mg 07/22/20 17:54 Clonazepam 0.5 Mg Tablet PO Q4H PRN Anxiety Hydroxyzine HCl 25 mg 07/22/20 16:17 Hydroxyzine Hcl 25 Mg Tablet PO BEDTIME PRN Anxiety Lisinopril 5 mg 07/23/20 09:00 07/30/20 09:41 Lisinopril 5 Mg Tablet PO Not Given DAILY [facility] Protocol Magnesium Hydroxide 30 ml 07/22/20 16:17 Milk Of Magnesia 30 Ml Oral.Susp PO DAILY PRN Constipation Melatonin 3 mg 07/22/20 17:58 Melatonin 3 Mg Tablet PO BEDTIME PRN Insomnia Metoprolol Tartrate 25 mg 07/22/20 21:00 07/30/20 09:41 Metoprolol Tartrate 25 Mg Tablet PO Not Given BID [facility] Protocol Multivitamins/Vitamin C 1 tab 07/23/20 09:00 07/30/20 09:41 Multivitamin Tablet PO Not Given DAILY [facility] Non-Formulary Medication 1 appl 07/23/20 09:00 Metronidazole [Metrogel] TOPICAL 07/28/20 23:59 DAILY [facility] Nystatin 1 appl 07/22/20 21:00 07/30/20 09:42 Nystatin Powder 15 Gm Bottle TOPICAL Not Given BID [facility] Protocol Paliperidone 3 mg 07/23/20 11:40 07/30/20 09:42 Paliperidone Er 3 Mg Tab.Er.24 PO Not Given DAILY [facility] Paliperidone Palmitate 234 mg 07/22/20 17:54 Paliperidone Palmitate 234 Mg/1.5 Ml Syringe IM Q30D [facility] Senna 17.2 mg 07/22/20 17:59 Sennosides 8.6 Mg Tablet PO DAILY PRN Constipation Trazodone HCl 50 mg 07/22/20 16:17 Trazodone Hcl 50 Mg Tablet PO BEDTIME PRN Insomnia Allergies Allergies Allergy/AdvReac Type Severity Reaction Status Date / Time acetaminophen [From TYLENOL] Allergy Intermediate HIVES Verified 07/22/20 02:13 meperidine [From Demerol] Allergy Unknown Verified 07/22/20 02:10 Assessment & Plan Assessment & Plan (1) Schizo affective schizophrenia: Status: Acute Code(s): F25.9 - Schizoaffective disorder, unspecified Assessment and Plan: Patient isolative withdrawn poor ADLs minimal functioning refusing medication pending commitment and [place] hearing recheck CBC elevated white count afebrile Greater than 50% of the session was spent on counseling and/or coordination of care Reason for contiued inpatient stay Substantial Risk for: inability to function and rapid decompensation
[2020-07-31 06:00] VITALS: RESP 18
[2020-07-31 14:03] LABS: MANUAL DIFF FLAG NO
[2020-07-31 14:08] LABS: Basophils Absolute Auto 0.1 X10*3/uL (0.0-0.2); Basophils Percent Auto 0.7 % (0-2); Eosinophils Absolute Auto 0.3 X10*3/uL (0.0-0.4); Eosinophils Percent Auto 1.7 % (0-4); Hematocrit 46.8 % (37-47); Hemoglobin 15.4 g/dl (12.0-16.0); Imm Gran Abs Auto 0.09 X10*3/uL (0.00-0.03); Imm Gran Pct Auto 0.6 % (0.0-0.4); Lymphocytes Absolute Auto 2.9 X10*3/uL (1.2-4.9); Lymphocytes Percent Auto 19.4 % (20-40); Mean Corpuscular HGB Conc 32.9 g/dl (31.0-35.0); Mean Corpuscular Hemoglobin 32.2 pg (27.0-33.0); Mean Corpuscular Volume 97.9 fL (80-98); Mean Platelet Volume 9.6 fL (9.4-12.3); Monocytes Absolute Auto 1.1 X10*3/uL (0.1-1.2); Monocytes Percent Auto 7.5 % (2-11); Neutrophils Absolute Auto 10.5 X10*3/uL (2.0-8.3); Neutrophils Percent Auto 70.1 % (45-73); Platelet Count 276 X10*3/uL (160-400); Red Blood Count 4.78 X10*6/uL (4.20-5.50); Red Cell Distribution Width 12.2 % (11.0-16.0)
[2020-07-31 14:36] LABS: Estimated Average Glucose 128 mg/dL; Hemoglobin A1c % 6.1 %
[2020-07-31 14:38] LABS: Alanine Aminotransferase 39 U/L (0-31); Alkaline Phosphatase 111 U/L (39-117); Anion Gap 15 (12-20); Aspartate Amino Transferase 21 U/L (5-31); Bilirubin Total 0.2 mg/dL (0.0-1.0); Blood Urea Nitrogen 15 mg/dL (9-16); Calcium 9.2 mg/dL (8.4-10.2); Carbon Dioxide 26 mmol/L (22-29); Chloride 103 mmol/L (96-108); Cholesterol 187 mg/dL; Creatinine Clr Calc Pharmacy 95.4; Estimated Glomerular Filt Rate > 60; Glucose Random 158 mg/dL (60-115); HDL Cholesterol 45 mg/dL; LDL Cholesterol Calculated 86 mg/dl; Potassium 4.8 mmol/L (3.3-5.1); Sodium 139 mmol/L (135-145); Total Protein 6.2 g/dL (6.5-8.0); Triglycerides 282 mg/dL
--- NOTE | 2020-07-31 14:49 | HO.PSYCHPN ---
Subjective Subjective Date of Service: 07/31/20 Reason For Visit: aggression Subjective Notes: Section 7 Interim History: Court scheduled for 08/03/20. Labs completed. Pt continues to refuse to have a conversation, however, is increasing her response to the team. Care discussed with HCP Brit Elder. Brit agreed with team request for labs as pt is consistently refusing care, meds and WBC was elevated on admission. Brit reports pt has not responded to her calls recently and she is concerned by pt's recent statements that she is suicidal, feeling unable to continue after her partner has . As a result, team has moved her room closer to the nursing station for increased observation. Medication Compliance: No Side effects from medications: No Attending Groups: No Review of Systems Reports behavioral changes Psychiatric: Reports anxiety, Reports behavioral changes, Reports depression, Reports difficulty concentrating, Reports auditory hallucinations, Reports irritability, Reports anhedonia, Reports mood swings and Reports paranoia Mental Status Exam Mental Status Exam Patient Appearance: Fatigued, Disheveled, Unkempt and Malodorous (refuses ADL care) Patient Orientation: Person Level of Consciousness: Awake and Alert Patient Behavior: Guarded, Suspicious, Fearful, Resistive to Care, Avoidant, Fatigued, Isolative, Uncooperative and Poor Eye Contact Mood Description: Depressed Affect Description: Flat Patient Cognition Impaired: Yes Ability to Follow Directions: Fair Speech Pattern: Impoverished Hallucinations: Auditory Delusions: Paranoid Ideation Perceptual Disturbances: Depersonalization Thought Process: Illogical, Distracted and Rumination Thought Content: positive for [place] and positive for Preoccupation Depressive Symptoms: Increased Irritability, Loss of Int. in Activity, Hopelessness, Unhappiness and Loss of Energy Judgement: Poor Diagnostics Vital Signs (24Hr): Vital Signs - 24 hr 07/31/20 06:00 Respiratory Rate 18 Body Mass Index 45.7 Labs Results: 07/31/20 13:55 07/31/20 13:55 Labs: Laboratory Results - last 48 hr 07/31/20 07/31/20 07/31/20 13:55 13:55 13:55 WBC 15.0 H RBC 4.78 Hgb 15.4 Hct 46.8 MCV 97.9 MCH 32.2 MCHC 32.9 RDW 12.2 Plt Count 276 MPV 9.6 Immature Gran % (Auto) 0.6 H Neut % (Auto) 70.1 Lymph % (Auto) 19.4 L [place] % (Auto) 7.5 Eos % (Auto) 1.7 Baso % (Auto) 0.7 Lymph # (Auto) 2.9 [place] # (Auto) 1.1 Eos # (Auto) 0.3 Baso # (Auto) 0.1 Abs Immat Gran (auto) 0.09 H Absolute Neuts (auto) 10.5 H Absolute Nucleated RBC 0.000 Nucleated RBC % (auto) 0.0 Sodium 139 Potassium 4.8 D Chloride 103 Carbon Dioxide 26 Anion Gap 15 BUN 15 Creatinine 0.84 Estim Creat Clear Calc 95.4 Estimated GFR > 60 Random Glucose 158 H D Estimat Average Glucose 128 Hemoglobin A1c % 6.1 Calcium 9.2 Total Bilirubin 0.2 AST 21 ALT 39 H Alkaline Phosphatase 111 Total Protein 6.2 L Albumin 4.0 Triglycerides 282 Cholesterol 187 LDL Cholesterol, Calc 86 HDL Cholesterol 45 Medications Medications Current Medications Generic Name Dose Route Start Last Admin Trade Name Freq PRN Reason Stop Dose Admin Al Hydroxide/Mg Hydroxide 30 ml 07/22/20 16:17 Magnesium Hydrox/Alum Hydrox 30 Ml Oral.Susp PO Q6H PRN Heartburn/Nausea Albuterol Sulfate 2 puff 07/22/20 17:54 Albuterol Sulfate 90 Mcg 8 Gm Inhaler INHALE Q4H PRN Shortness Of Breath Or Wheezing Clonazepam 0.5 mg 07/22/20 17:54 Clonazepam 0.5 Mg Tablet PO Q4H PRN Anxiety Hydroxyzine HCl 25 mg 07/22/20 16:17 Hydroxyzine Hcl 25 Mg Tablet PO BEDTIME PRN Anxiety Lisinopril 5 mg 07/23/20 09:00 07/31/20 08:52 Lisinopril 5 Mg Tablet PO Not Given DAILY [facility] Protocol Magnesium Hydroxide 30 ml 07/22/20 16:17 Milk Of Magnesia 30 Ml Oral.Susp PO DAILY PRN Constipation Melatonin 3 mg 07/22/20 17:58 Melatonin 3 Mg Tablet PO BEDTIME PRN Insomnia Metoprolol Tartrate 25 mg 07/22/20 21:00 07/31/20 08:52 Metoprolol Tartrate 25 Mg Tablet PO Not Given BID [facility] Protocol Multivitamins/Vitamin C 1 tab 07/23/20 09:00 07/31/20 08:52 Multivitamin Tablet PO Not Given DAILY [facility] Non-Formulary Medication 1 appl 07/23/20 09:00 Metronidazole [Metrogel] TOPICAL 07/28/20 23:59 DAILY [facility] Nystatin 1 appl 07/22/20 21:00 07/31/20 08:53 Nystatin Powder 15 Gm Bottle TOPICAL Not Given BID [facility] Protocol Paliperidone 3 mg 07/23/20 11:40 07/31/20 08:53 Paliperidone Er 3 Mg Tab.Er.24 PO Not Given DAILY [facility] Paliperidone Palmitate 234 mg 07/22/20 17:54 Paliperidone Palmitate 234 Mg/1.5 Ml Syringe IM Q30D [facility] Senna 17.2 mg 07/22/20 17:59 Sennosides 8.6 Mg Tablet PO DAILY PRN Constipation Trazodone HCl 50 mg 07/22/20 16:17 Trazodone Hcl 50 Mg Tablet PO BEDTIME PRN Insomnia Allergies Allergies Allergy/AdvReac Type Severity Reaction Status Date / Time acetaminophen [From TYLENOL] Allergy Intermediate HIVES Verified 07/22/20 02:13 meperidine [From Demerol] Allergy Unknown Verified 07/22/20 02:10 Assessment & Plan Assessment & Plan (1) Schizo affective schizophrenia: Status: Acute Code(s): F25.9 - Schizoaffective disorder, unspecified Greater than 50% of the session was spent on counseling and/or coordination of care Reason for contiued inpatient stay Substantial Risk for: harm to self, inability to function, rapid decompensation and med/psych decompensation
[2020-07-31 14:53] LABS: Thyroid Stimulating Hormone 0.89 uIU/mL (0.32-4.0); Vitamin D 25-OH Total 12.7 ng/mL (>30)
[2020-07-31 15:10] LABS: Folate 9.3 ng/mL (> or = 4.0); Vitamin B12 662 pg/mL (200-900)
[2020-08-01 06:10] VITALS: RESP 18
--- NOTE | 2020-08-01 18:57 | P.PNPSI_ITS ---
Subjective Subjective Date of Service: 08/01/20 Reason For Visit: aggression Subjective Notes: Section 7 Interim History: Showered, visible, continues to refuse to talk with brief writer. Tentative court date 08/03/20. Medication Compliance: No Attending Groups: No Review of Systems Review of Systems Yes Unobtainable due to mental status Reports behavioral changes and Reports confusion Psychiatric: Reports anxiety, Reports behavioral changes, Reports confusion, Reports depression, Reports difficulty concentrating, Reports auditory hallucinations, Reports hopelessness, Reports irritability, Reports anhedonia, Reports mood swings and Reports paranoia Mental Status Exam Mental Status Exam Patient Appearance: Disheveled Patient Orientation: Person, Place, Time and Situation Level of Consciousness: Alert Patient Behavior: Guarded, Suspicious, Fearful, Resistive to Care, Avoidant, Distractible, Uncooperative and Poor Eye Contact Mood Description: Depressed Affect Description: Constricted Patient Cognition Impaired: Yes Ability to Follow Directions: Poor Speech Pattern: Impoverished Memory Description: Remote Impaired and Episodic Impaired Hallucinations: Auditory Delusions: Present Thought Process: Illogical, Distracted, Rumination and Slowed Thinking Thought Content: positive for Perseveration, positive for Poverty of Content, positive for Preoccupation, positive for Thought Blocking and positive for Tangential Depressive Symptoms: Increased Irritability, Loss of Int. in Activity, Feelings of Worthlessness, Hopelessness, Isolating-Friends/Family, Unhappiness, Loss of Energy and Difficulty Concentrating Judgement: Poor Diagnostics Vital Signs (24Hr): Vital Signs - 24 hr 08/01/20 06:10 Respiratory Rate 18 Body Mass Index 45.7 Labs Results: 07/31/20 13:55 07/31/20 13:55 Labs: Laboratory Results - last 48 hr 07/31/20 07/31/20 07/31/20 13:55 13:55 13:55 WBC 15.0 H RBC 4.78 Hgb 15.4 Hct 46.8 MCV 97.9 MCH 32.2 MCHC 32.9 RDW 12.2 Plt Count 276 MPV 9.6 Immature Gran % (Auto) 0.6 H Neut % (Auto) 70.1 Lymph % (Auto) 19.4 L Ward % (Auto) 7.5 Eos % (Auto) 1.7 Baso % (Auto) 0.7 Lymph # (Auto) 2.9 Ward # (Auto) 1.1 Eos # (Auto) 0.3 Baso # (Auto) 0.1 Abs Immat Gran (auto) 0.09 H Absolute Neuts (auto) 10.5 H Absolute Nucleated RBC 0.000 Nucleated RBC % (auto) 0.0 Sodium 139 Potassium 4.8 D Chloride 103 Carbon Dioxide 26 Anion Gap 15 BUN 15 Creatinine 0.84 Estim Creat Clear Calc 95.4 Estimated GFR > 60 Random Glucose 158 H D Estimat Average Glucose 128 Hemoglobin A1c % 6.1 Calcium 9.2 Total Bilirubin 0.2 AST 21 ALT 39 H Alkaline Phosphatase 111 Total Protein 6.2 L Albumin 4.0 Triglycerides 282 Cholesterol 187 LDL Cholesterol, Calc 86 HDL Cholesterol 45 Vitamin B12 25-OH Vitamin D Total Folate TSH 0.89 07/31/20 07/31/20 13:55 13:55 WBC RBC Hgb Hct MCV MCH MCHC RDW Plt Count MPV Immature Gran % (Auto) Neut % (Auto) Lymph % (Auto) Ward % (Auto) Eos % (Auto) Baso % (Auto) Lymph # (Auto) Ward # (Auto) Eos # (Auto) Baso # (Auto) Abs Immat Gran (auto) Absolute Neuts (auto) Absolute Nucleated RBC Nucleated RBC % (auto) Sodium Potassium Chloride Carbon Dioxide Anion Gap BUN Creatinine Estim Creat Clear Calc Estimated GFR Random Glucose Estimat Average Glucose Hemoglobin A1c % Calcium Total Bilirubin AST ALT Alkaline Phosphatase Total Protein Albumin Triglycerides Cholesterol LDL Cholesterol, Calc HDL Cholesterol Vitamin B12 662 25-OH Vitamin D Total 12.7 Folate 9.3 TSH Medications Medications Current Medications Generic Name Dose Route Start Last Admin Trade Name Freq PRN Reason Stop Dose Admin Al Hydroxide/Mg Hydroxide 30 ml 07/22/20 16:17 Magnesium Hydrox/Alum Hydrox 30 Ml Oral.Susp PO Q6H PRN Heartburn/Nausea Albuterol Sulfate 2 puff 07/22/20 17:54 Albuterol Sulfate 90 Mcg 8 Gm Inhaler INHALE Q4H PRN Shortness Of Breath Or Wheezing Hydroxyzine HCl 25 mg 07/22/20 16:17 Hydroxyzine Hcl 25 Mg Tablet PO BEDTIME PRN Anxiety Lisinopril 5 mg 07/23/20 09:00 08/01/20 09:31 Lisinopril 5 Mg Tablet PO Not Given DAILY [facility] Protocol Magnesium Hydroxide 30 ml 07/22/20 16:17 Milk Of Magnesia 30 Ml Oral.Susp PO DAILY PRN Constipation Melatonin 3 mg 07/22/20 17:58 Melatonin 3 Mg Tablet PO BEDTIME PRN Insomnia Metoprolol Tartrate 25 mg 07/22/20 21:00 08/01/20 09:31 Metoprolol Tartrate 25 Mg Tablet PO Not Given BID [facility] Protocol Multivitamins/Vitamin C 1 tab 07/23/20 09:00 08/01/20 09:31 Multivitamin Tablet PO Not Given DAILY [facility] Non-Formulary Medication 1 appl 07/23/20 09:00 Metronidazole [Metrogel] TOPICAL 07/28/20 23:59 DAILY [facility] Nystatin 1 appl 07/22/20 21:00 08/01/20 09:32 Nystatin Powder 15 Gm Bottle TOPICAL Not Given BID [facility] Protocol Paliperidone 3 mg 07/23/20 11:40 08/01/20 09:32 Paliperidone Er 3 Mg Tab.Er.24 PO Not Given DAILY [facility] Paliperidone Palmitate 234 mg 07/22/20 17:54 Paliperidone Palmitate 234 Mg/1.5 Ml Syringe IM Q30D [facility] Senna 17.2 mg 07/22/20 17:59 Sennosides 8.6 Mg Tablet PO DAILY PRN Constipation Trazodone HCl 50 mg 07/22/20 16:17 Trazodone Hcl 50 Mg Tablet PO BEDTIME PRN Insomnia Allergies Allergies Allergy/AdvReac Type Severity Reaction Status Date / Time acetaminophen [From TYLENOL] Allergy Intermediate HIVES Verified 07/22/20 02:13 meperidine [From Demerol] Allergy Unknown Verified 07/22/20 02:10 Assessment & Plan Assessment & Plan (1) Schizo affective schizophrenia: Status: Acute Code(s): F25.9 - Schizoaffective disorder, unspecified Greater than 50% of the session was spent on counseling and/or coordination of care Reason for contiued inpatient stay Substantial Risk for: harm to self, inability to function and rapid decompensation
--- NOTE | 2020-08-02 17:47 | P.PNPSI_ITS ---
Subjective Subjective Date of Service: 08/02/20 Reason For Visit: aggression Interim History: Pt turns her head and walks away when approached. We continue to work with the court on a treatment agreement. TW spoke with Dr. Jasso, the court assigned MEGAN at [phone]. Pt will not talk with Dr. Thompson as well. Case and plan of care discussed. Alterations to civil commitment request completed including abilify maximum 30 mg, olanzapine maximum 30 mg, lamictal maximum 400 mg, duloxetine maximum 120 mg, trileptal maximum 2400 mg Medication Compliance: No Side effects from medications: No Attending Groups: No Review of Systems Review of Systems Yes Unobtainable due to mental status Reports behavioral changes and Reports confusion Psychiatric: Reports behavioral changes, Reports confusion, Reports difficulty concentrating, Reports auditory hallucinations, Reports irritability, Reports mood swings, Reports paranoia and Reports hallucinations Mental Status Exam Mental Status Exam Patient Appearance: Disheveled Patient Orientation: Person, Place, Time and Situation Level of Consciousness: Awake Patient Behavior: Guarded, Suspicious, Anxious, Fearful, Resistive to Care, Avoidant, Distractible, Confused, Uncooperative and Poor Eye Contact Mood Description: Apathetic, Suspicious, Withdrawn, Constricted, Hostile, Anxious, Labile, Angry, Sad, Nervous and Apprehensive Affect Description: Depressed, Labile and Angry Patient Cognition Impaired: Yes Ability to Follow Directions: Poor Speech Pattern: Impoverished Memory Description: Remote Impaired Hallucinations: Auditory Delusions: Present Thought Process: Illogical, Distracted and Rumination Thought Content: positive for Perseveration and positive for Poverty of Content Depressive Symptoms: Increased Irritability, Loss of Int. in Activity, Ho pelessness, Isolating-Friends/Family, Unhappiness and Loss of Energy Judgement: Poor Diagnostics Vital Signs (24Hr): Body Mass Index 45.7 Labs Results: 07/31/20 13:55 07/31/20 13:55 Medications Medications Current Medications Generic Name Dose Route Start Last Admin Trade Name Freq PRN Reason Stop Dose Admin Al Hydroxide/Mg Hydroxide 30 ml 07/22/20 16:17 Magnesium Hydrox/Alum Hydrox 30 Ml Oral.Susp PO Q6H PRN Heartburn/Nausea Albuterol Sulfate 2 puff 07/22/20 17:54 Albuterol Sulfate 90 Mcg 8 Gm Inhaler INHALE Q4H PRN Shortness Of Breath Or Wheezing Hydroxyzine HCl 25 mg 07/22/20 16:17 Hydroxyzine Hcl 25 Mg Tablet PO BEDTIME PRN Anxiety Lisinopril 5 mg 07/23/20 09:00 08/02/20 08:42 Lisinopril 5 Mg Tablet PO Not Given DAILY [facility] Protocol Magnesium Hydroxide 30 ml 07/22/20 16:17 Milk Of Magnesia 30 Ml Oral.Susp PO DAILY PRN Constipation Melatonin 3 mg 07/22/20 17:58 Melatonin 3 Mg Tablet PO BEDTIME PRN Insomnia Metoprolol Tartrate 25 mg 07/22/20 21:00 08/02/20 08:42 Metoprolol Tartrate 25 Mg Tablet PO Not Given BID [facility] Protocol Multivitamins/Vitamin C 1 tab 07/23/20 09:00 08/02/20 08:42 Multivitamin Tablet PO Not Given DAILY [facility] Non-Formulary Medication 1 appl 07/23/20 09:00 Metronidazole [Metrogel] TOPICAL 07/28/20 23:59 DAILY [facility] Nystatin 1 appl 07/22/20 21:00 08/02/20 08:43 Nystatin Powder 15 Gm Bottle TOPICAL Not Given BID [facility] Protocol Paliperidone 3 mg 07/23/20 11:40 08/02/20 08:43 Paliperidone Er 3 Mg Tab.Er.24 PO Not Given DAILY [facility] Paliperidone Palmitate 234 mg 07/22/20 17:54 Paliperidone Palmitate 234 Mg/1.5 Ml Syringe IM Q30D [facility] Senna 17.2 mg 07/22/20 17:59 Sennosides 8.6 Mg Tablet PO DAILY PRN Constipation Trazodone HCl 50 mg 07/22/20 16:17 Trazodone Hcl 50 Mg Tablet PO BEDTIME PRN Insomnia Allergies Allergies Allergy/AdvReac Type Severity Reaction Status Date / Time acetaminophen [From TYLENOL] Allergy Intermediate HIVES Verified 07/22/20 02:13 meperidine [From Demerol] Allergy Unknown Verified 07/22/20 02:10 Assessment & Plan Assessment & Plan (1) Schizo affective schizophrenia: Status: Acute Code(s): F25.9 - Schizoaffective disorder, unspecified Greater than 50% of the session was spent on counseling and/or coordination of care Reason for contiued inpatient stay Substantial Risk for: harm to self, harm to others, inability to function and rapid decompensation
[2020-08-03 05:01] VITALS: RESP 18
[2020-08-03 09:56] VITALS: PULSE 0
[2020-08-03 09:57] VITALS: PULSE 0
--- NOTE | 2020-08-03 09:59 | PC.NURSE ---
pt refused to have her blood pressure taken today, refused all medications and turned her head away declining to talk when being greeted
--- NOTE | 2020-08-03 16:49 | HO.PSYCHPN ---
Subjective Subjective Date of Service: 08/03/20 Reason For Visit: aggression Subjective Notes: Section 8 Interim History: Court granted civil commitment for three months with approval of pt's commercial litigation attorney, Claudia, who reports pt has told others she wants to be in hospital. Pt is visable on the unit. Consistently, when approached, she will not make eye contact, will not speak and walks away with no acknowledgment. She is observed to be watching TV with attentiveness, watching peers with minimal interaction. Medication Compliance: No Side effects from medications: No Attending Groups: No Review of Systems Review of Systems Yes Unobtainable due to mental status Psychiatric: Reports anxiety, Reports depression, Reports auditory hallucinations, Reports hopelessness, Reports irritability, Reports paranoia, Reports hallucinations and Reports suicidal ideation (has told her HCP this week there is no reason to live after loss of partner) Mental Status Exam Mental Status Exam Patient Appearance: Disheveled Patient Orientation: Person Level of Consciousness: Awake and Alert Patient Behavior: Guarded, Suspicious, Anxious, Fearful, Resistive to Care, Avoidant, Fatigued, Distractible, Isolative, Uncooperative and Poor Eye Contact Mood Description: Suspicious, Withdrawn, Constricted, Depressed, Anxious, Sad and Apprehensive Affect Description: Flat Patient Cognition Impaired: Yes Ability to Follow Directions: Fair Speech Pattern: Impoverished Hallucinations: Auditory Delusions: Present Thought Process: Illogical and Rumination Thought Content: positive for Poverty of Content and positive for Suicidal Ideation Depressive Symptoms: Loss of Int. in Activity, Feelings of Worthlessness, Hopelessness, Isolating-Friends/Family, Unhappiness, Thoughts of /Suicide, Low Self Esteem, Loss of Energy and Difficulty Concentrating Judgement: Poor Diagnostics Vital Signs (24Hr): Vital Signs - 24 hr 08/03/20 05:01 08/03/20 09:56 08/03/20 09:57 Pulse Rate 0 L 0 L Respiratory Rate 18 Body Mass Index 45.7 Labs Results: 07/31/20 13:55 07/31/20 13:55 Medications Medications Current Medications Generic Name Dose Route Start Last Admin Trade Name Freq PRN Reason Stop Dose Admin Al Hydroxide/Mg Hydroxide 30 ml 07/22/20 16:17 Magnesium Hydrox/Alum Hydrox 30 Ml Oral.Susp PO Q6H PRN Heartburn/Nausea Albuterol Sulfate 2 puff 07/22/20 17:54 Albuterol Sulfate 90 Mcg 8 Gm Inhaler INHALE Q4H PRN Shortness Of Breath Or Wheezing Hydroxyzine HCl 25 mg 07/22/20 16:17 Hydroxyzine Hcl 25 Mg Tablet PO BEDTIME PRN Anxiety Lisinopril 5 mg 07/23/20 09:00 08/03/20 09:56 Lisinopril 5 Mg Tablet PO Not Given DAILY [facility] Protocol Magnesium Hydroxide 30 ml 07/22/20 16:17 Milk Of Magnesia 30 Ml Oral.Susp PO DAILY PRN Constipation Melatonin 3 mg 07/22/20 17:58 Melatonin 3 Mg Tablet PO BEDTIME PRN Insomnia Metoprolol Tartrate 25 mg 07/22/20 21:00 08/03/20 09:57 Metoprolol Tartrate 25 Mg Tablet PO Not Given BID [facility] Protocol Multivitamins/Vitamin C 1 tab 07/23/20 09:00 08/03/20 09:57 Multivitamin Tablet PO Not Given DAILY [facility] Non-Formulary Medication 1 appl 07/23/20 09:00 Metronidazole [Metrogel] TOPICAL 07/28/20 23:59 DAILY [facility] Nystatin 1 appl 07/22/20 21:00 08/03/20 09:58 Nystatin Powder 15 Gm Bottle TOPICAL Not Given BID [facility] Protocol Paliperidone 3 mg 07/23/20 11:40 08/03/20 09:58 Paliperidone Er 3 Mg Tab.Er.24 PO Not Given DAILY [facility] Paliperidone Palmitate 234 mg 07/22/20 17:54 Paliperidone Palmitate 234 Mg/1.5 Ml Syringe IM Q30D [facility] Senna 17.2 mg 07/22/20 17:59 Sennosides 8.6 Mg Tablet PO DAILY PRN Constipation Trazodone HCl 50 mg 07/22/20 16:17 Trazodone Hcl 50 Mg Tablet PO BEDTIME PRN Insomnia Allergies Allergies Allergy/AdvReac Type Severity Reaction Status Date / Time acetaminophen [From TYLENOL] Allergy Intermediate HIVES Verified 07/22/20 02:13 meperidine [From Demerol] Allergy Unknown Verified 07/22/20 02:10 Assessment & Plan Assessment & Plan (1) Schizo affective schizophrenia: Status: Acute Code(s): F25.9 - Schizoaffective disorder, unspecified Greater than 50% of the session was spent on counseling and/or coordination of care Reason for contiued inpatient stay Substantial Risk for: harm to self, harm to others, inability to function and rapid decompensation
[2020-08-03 18:00] VITALS: RESP 14
[2020-08-04] MEDS: Paliperidone Palmitate 234 MG/1.5 ML SYRINGE IM (19:05)
--- NOTE | 2020-08-04 19:41 | P.PNPSI_ITS ---
Subjective Subjective Date of Service: 08/04/20 Reason For Visit: aggression Subjective Notes: Section 8 Interim History: Received civil commitment paperwork. Ordered Invega Sustenna 234 mg IM as pt refuses PO. MEGAN asked that we give Sustenna if she refused po as she has tolerated it in the past and last injection was Mar 2020. Klonopin 0.5 mg bid, Ativan 1 mg q 4h prn po or im and Olanzapine 5 mg q4h prn po or im ordered. Pt continues to decline to talk with TW. Medication Compliance: No Side effects from medications: No Attending Groups: No Review of Systems Reports behavioral changes and Reports confusion Psychiatric: Reports behavioral changes, Reports confusion, Reports depression, Reports difficulty concentrating, Reports auditory hallucinations, Reports hopelessness, Reports irritability, Reports mood swings, Reports paranoia and Reports hallucinations Mental Status Exam Mental Status Exam Patient Appearance: Disheveled Patient Orientation: Person Level of Consciousness: Alert Patient Behavior: Resistive to Care Mood Description: Depressed and Angry Affect Description: Flat Patient Cognition Impaired: Yes Ability to Follow Directions: Fair Speech Pattern: Impoverished Hallucinations: Auditory Delusions: Present Thought Process: Rumination Thought Content: positive for Circumstantial and positive for Perseveration Depressive Symptoms: Increased Anxiety, Increased Irritability, Loss of Int. in Activity, Hopelessness, Isolating-Friends/Family, Unhappiness, Thoughts of /Suicide, Low Self Esteem and Loss of Energy Judgement: Poor Diagnostics Vital Signs (24Hr): Body Mass Index 45.7 Labs Results: 07/31/20 13:55 07/31/20 13:55 Medications Medications Current Medications Generic Name Dose Route Start Last Admin Trade Name Freq PRN Reason Stop Dose Admin Al Hydroxide/Mg Hydroxide 30 ml 07/22/20 16:17 Magnesium Hydrox/Alum Hydrox 30 Ml Oral.Susp PO Q6H PRN Heartburn/Nausea Albuterol Sulfate 2 puff 07/22/20 17:54 Albuterol Sulfate 90 Mcg 8 Gm Inhaler INHALE Q4H PRN Shortness Of Breath Or Wheezing Clonazepam 0.5 mg 08/04/20 21:00 Clonazepam 0.5 Mg Tablet PO BID [facility] Hydroxyzine HCl 25 mg 07/22/20 16:17 Hydroxyzine Hcl 25 Mg Tablet PO BEDTIME PRN Anxiety Lisinopril 5 mg 07/23/20 09:00 08/04/20 09:30 Lisinopril 5 Mg Tablet PO Not Given DAILY [facility] Protocol Lorazepam 1 mg 08/04/20 15:38 Lorazepam 1 Mg Tablet PO Q4H PRN agitation Magnesium Hydroxide 30 ml 07/22/20 16:17 Milk Of Magnesia 30 Ml Oral.Susp PO DAILY PRN Constipation Melatonin 3 mg 07/22/20 17:58 Melatonin 3 Mg Tablet PO BEDTIME PRN Insomnia Metoprolol Tartrate 25 mg 07/22/20 21:00 08/04/20 09:30 Metoprolol Tartrate 25 Mg Tablet PO Not Given BID [facility] Protocol Multivitamins/Vitamin C 1 tab 07/23/20 09:00 08/04/20 09:30 Multivitamin Tablet PO Not Given DAILY [facility] Non-Formulary Medication 1 appl 07/23/20 09:00 Metronidazole [Metrogel] TOPICAL 07/28/20 23:59 DAILY [facility] Nystatin 1 appl 07/22/20 21:00 08/04/20 09:30 Nystatin Powder 15 Gm Bottle TOPICAL Not Given BID [facility] Protocol Olanzapine 5 mg 08/04/20 15:39 Olanzapine 5 Mg Tablet PO Q4H PRN agitation Senna 17.2 mg 07/22/20 17:59 Sennosides 8.6 Mg Tablet PO DAILY PRN Constipation Trazodone HCl 50 mg 07/22/20 16:17 Trazodone Hcl 50 Mg Tablet PO BEDTIME PRN Insomnia Allergies Allergies Allergy/AdvReac Type Severity Reaction Status Date / Time acetaminophen [From TYLENOL] Allergy Intermediate HIVES Verified 07/22/20 02:13 meperidine [From Demerol] Allergy Unknown Verified 07/22/20 02:10 Assessment & Plan Assessment & Plan (1) Schizoaffective disorder: Status: Acute Code(s): F25.9 - Schizoaffective disorder, unspecified Assessment and Plan: Invega sustenna 234 mg IM Klonopin 0.5 mg bid Ativan/Olanzapine prn po/im Greater than 50% of the session was spent on counseling and/or coordination of care Reason for contiued inpatient stay Substantial Risk for: harm to self, harm to others, inability to function and rapid decompensation
[2020-08-05] MEDS: LORazepam 1 MG TABLET PO (04:00)
--- NOTE | 2020-08-05 04:46 | PC.NURSE ---
At start of shift pt observed pacing length of hallway. Refused medication for sleep and denied anxiety. Pt periodically returned to bed for brief periods. Pt's legs observed to be restless while in bed. Pt continued to refuse PRN medication for anxiety and agitation. 0340 T/W discussed with pt the possibility of experiencing akithisia as side effect to medication. After educating pt on possible side effects, pt agreeable to taking Ativan 1 mg PO which she received at 0400. Thorough mouth check performed. Refused vital signs. Pt appears to be sleeping as of 0450.
[2020-08-05 06:00] VITALS: BP 132/74; PULSE 101; TEMP 36.3
[2020-08-05 09:12] VITALS: BP 132/74; PULSE 101
[2020-08-05 09:13] VITALS: BP 132/74; PULSE 101
--- NOTE | 2020-08-05 12:19 | P.PNPSI_ITS ---
Subjective Subjective Date of Service: 08/06/20 Reason For Visit: aggression Interim History: 08/05/2020: Patient continues to be disorganized. Briefly met with this senior grant writer then simply walked off when I raise the issue of Cogentin. Staff have noticed some stiffness. Will add Cogentin p.r.n. but unlikely to accept. Patient is unkempt. 08/04/2020: Received civil commitment paperwork. Ordered Invega Sustenna 234 mg IM as pt refuses PO. MEGAN asked that we give Sustenna if she refused po as she has tolerated it in the past and last injection was Mar 2020. Klonopin 0.5 mg bid, Ativan 1 mg q 4h prn po or im and Olanzapine 5 mg q4h prn po or im ordered. Pt continues to decline to talk with TW. Review of Systems Review of Systems Yes all other systems are reviewed and are negative and Unobtainable due to mental status Reports behavioral changes and Reports confusion Psychiatric: Reports abnormal sleep pattern, Reports anxiety, Reports behavioral changes, Reports change in appetite, Reports confusion, Reports depression, Reports difficulty concentrating, Reports auditory hallucinations, Reports hopelessness, Reports irritability, Reports anhedonia, Reports mood swings, Reports paranoia, Reports visual hallucinations, Reports hallucinations, Reports homicidal ideation and Reports suicidal ideation (has told her HCP this week there is no reason to live after loss of partner) Mental Status Exam Mental Status Exam Narrative: Patient not taking care of herself poor ADLs disheveled would not engage in meaningful conversation observed on the unit Patient Appearance: Disheveled Patient Orientation: Person Level of Consciousness: Alert Patient Behavior: Resistive to Care Behavior Comments: Patient refused to participate in initial admission process. Today states there is nothing wrong with her she denies she is on medications so she needs medications. She denies she was seen by crisis stating ?they are not crisis people? Mood Description: Depressed and Angry Affect Description: Flat Patient Cognition Impaired: Yes Ability to Follow Directions: Fair Speech Pattern: Impoverished Memory Description: Remote Impaired Diagnostics Vital Signs (24Hr): Vital Signs - 24 hr 08/05/20 06:00 08/05/20 09:12 08/05/20 09:13 Temperature 97.3 F Pulse Rate 101 H 101 H 101 H Blood Pressure 132/74 132/74 132/74 Body Mass Index 45.7 Labs Results: 07/31/20 13:55 07/31/20 13:55 Medications Medications Current Medications Generic Name Dose Route Start Last Admin Trade Name Freq PRN Reason Stop Dose Admin Al Hydroxide/Mg Hydroxide 30 ml 07/22/20 16:17 Magnesium Hydrox/Alum Hydrox 30 Ml Oral.Susp PO Q6H PRN Heartburn/Nausea Albuterol Sulfate 2 puff 07/22/20 17:54 Albuterol Sulfate 90 Mcg 8 Gm Inhaler INHALE Q4H PRN Shortness Of Breath Or Wheezing Clonazepam 0.5 mg 08/04/20 21:00 08/05/20 09:12 Clonazepam 0.5 Mg Tablet PO Not Given BID [facility] Hydroxyzine HCl 25 mg 07/22/20 16:17 Hydroxyzine Hcl 25 Mg Tablet PO BEDTIME PRN Anxiety Lisinopril 5 mg 07/23/20 09:00 08/05/20 09:12 Lisinopril 5 Mg Tablet PO Not Given DAILY [facility] Protocol Lorazepam 1 mg 08/04/20 15:38 08/05/20 04:00 Lorazepam 1 Mg Tablet PO 1 mg Q4H PRN Administration agitation Magnesium Hydroxide 30 ml 07/22/20 16:17 Milk Of Magnesia 30 Ml Oral.Susp PO DAILY PRN Constipation Melatonin 3 mg 07/22/20 17:58 Melatonin 3 Mg Tablet PO BEDTIME PRN Insomnia Metoprolol Tartrate 25 mg 07/22/20 21:00 08/05/20 09:13 Metoprolol Tartrate 25 Mg Tablet PO Not Given BID [facility] Protocol Multivitamins/Vitamin C 1 tab 07/23/20 09:00 08/05/20 09:13 Multivitamin Tablet PO Not Given DAILY [facility] Non-Formulary Medication 1 appl 07/23/20 09:00 Metronidazole [Metrogel] TOPICAL 07/28/20 23:59 DAILY [facility] Nystatin 1 appl 07/22/20 21:00 08/05/20 09:13 Nystatin Powder 15 Gm Bottle TOPICAL Not Given BID [facility] Protocol Olanzapine 5 mg 08/04/20 15:39 Olanzapine 5 Mg Tablet PO Q4H PRN agitation Senna 17.2 mg 07/22/20 17:59 Sennosides 8.6 Mg Tablet PO DAILY PRN Constipation Trazodone HCl 50 mg 07/22/20 16:17 Trazodone Hcl 50 Mg Tablet PO BEDTIME PRN Insomnia Allergies Allergies Allergy/AdvReac Type Severity Reaction Status Date / Time acetaminophen [From TYLENOL] Allergy Intermediate HIVES Verified 07/22/20 02:13 meperidine [From Demerol] Allergy Unknown Verified 07/22/20 02:10 Assessment & Plan Assessment & Plan (1) Schizoaffective disorder: Status: Acute Code(s): F25.9 - Schizoaffective disorder, unspecified Assessment and Plan: Invega sustenna 234 mg IM Klonopin 0.5 mg bid Ativan/Olanzapine prn po/im Greater than 50% of the session was spent on counseling and/or coordination of care Reason for contiued inpatient stay Substantial Risk for: rapid decompensation
[2020-08-06 06:00] VITALS: RESP 18
--- NOTE | 2020-08-06 08:19 | HO.PSYCHPN ---
Subjective Subjective Date of Service: 08/06/20 Reason For Visit: aggression Interim History: 08/06/2020: Patient continues to be psychotic paranoid and disorganized. Afternoons have been difficult with screaming and intrusive behaviors. Neuroleptic orders clarified which charge nurse. Will use olanzapine scheduled with backup of IM if she refuses p.o. 08/05/2020: Patient continues to be disorganized. Briefly met with this quality analyst/technical writer then simply walked off when I raise the issue of Cogentin. Staff have noticed some stiffness. Will add Cogentin p.r.n. but unlikely to accept. Patient is unkempt. 08/04/2020: Received civil commitment paperwork. Ordered Invega Sustenna 234 mg IM as pt refuses PO. MEGAN asked that we give Sustenna if she refused po as she has tolerated it in the past and last injection was Mar 2020. Klonopin 0.5 mg bid, Ativan 1 mg q 4h prn po or im and Olanzapine 5 mg q4h prn po or im ordered. Pt continues to decline to talk with TW. Review of Systems Review of Systems Yes all other systems are reviewed and are negative and Unobtainable due to mental status Reports behavioral changes and Reports confusion Psychiatric: Reports abnormal sleep pattern, Reports anxiety, Reports behavioral changes, Reports change in appetite, Reports confusion, Reports depression, Reports difficulty concentrating, Reports auditory hallucinations, Reports hopelessness, Reports irritability, Reports anhedonia, Reports mood swings, Reports paranoia, Reports visual hallucinations, Reports hallucinations, Reports homicidal ideation and Reports suicidal ideation (has told her HCP this week there is no reason to live after loss of partner) Mental Status Exam Mental Status Exam Narrative: Patient not taking care of herself poor ADLs disheveled would not engage in meaningful conversation observed on the unit Patient Appearance: Disheveled Patient Orientation: Person Level of Consciousness: Alert Patient Behavior: Resistive to Care Behavior Comments: Patient refused to participate in initial admission process. Today states there is nothing wrong with her she denies she is on medications so she needs medications. She denies she was seen by crisis stating ?they are not crisis people? Mood Description: Depressed and Angry Affect Description: Flat Patient Cognition Impaired: Yes Ability to Follow Directions: Fair Speech Pattern: Impoverished Memory Description: Remote Impaired Diagnostics Vital Signs (24Hr): Vital Signs - 24 hr 08/05/20 09:12 08/05/20 09:13 08/06/20 06:00 Pulse Rate 101 H 101 H Respiratory Rate 18 Blood Pressure 132/74 132/74 Body Mass Index 45.7 Labs Results: 07/31/20 13:55 07/31/20 13:55 Medications Medications Current Medications Generic Name Dose Route Start Last Admin Trade Name Freq PRN Reason Stop Dose Admin Al Hydroxide/Mg Hydroxide 30 ml 07/22/20 16:17 Magnesium Hydrox/Alum Hydrox 30 Ml Oral.Susp PO Q6H PRN Heartburn/Nausea Albuterol Sulfate 2 puff 07/22/20 17:54 Albuterol Sulfate 90 Mcg 8 Gm Inhaler INHALE Q4H PRN Shortness Of Breath Or Wheezing Benztropine Mesylate 1 mg 08/05/20 21:00 08/05/20 20:52 Benztropine Mesylate 1 Mg Tablet PO Not Given BID [facility] Clonazepam 0.5 mg 08/04/20 21:00 08/05/20 20:52 Clonazepam 0.5 Mg Tablet PO Not Given BID [facility] Hydroxyzine HCl 25 mg 07/22/20 16:17 Hydroxyzine Hcl 25 Mg Tablet PO BEDTIME PRN Anxiety Lisinopril 5 mg 07/23/20 09:00 08/05/20 09:12 Lisinopril 5 Mg Tablet PO Not Given DAILY [facility] Protocol Lorazepam 1 mg 08/04/20 15:38 08/05/20 04:00 Lorazepam 1 Mg Tablet PO 1 mg Q4H PRN Administration agitation Magnesium Hydroxide 30 ml 07/22/20 16:17 Milk Of Magnesia 30 Ml Oral.Susp PO DAILY PRN Constipation Melatonin 3 mg 07/22/20 17:58 Melatonin 3 Mg Tablet PO BEDTIME PRN Insomnia Metoprolol Tartrate 25 mg 07/22/20 21:00 08/05/20 20:53 Metoprolol Tartrate 25 Mg Tablet PO Not Given BID [facility] Protocol Multivitamins/Vitamin C 1 tab 07/23/20 09:00 08/05/20 09:13 Multivitamin Tablet PO Not Given DAILY [facility] Non-Formulary Medication 1 appl 07/23/20 09:00 Metronidazole [Metrogel] TOPICAL 07/28/20 23:59 DAILY [facility] Nystatin 1 appl 07/22/20 21:00 08/05/20 20:56 Nystatin Powder 15 Gm Bottle TOPICAL Not Given BID [facility] Protocol Olanzapine 5 mg 08/04/20 15:39 Olanzapine 5 Mg Tablet PO Q4H PRN agitation Senna 17.2 mg 07/22/20 17:59 Sennosides 8.6 Mg Tablet PO DAILY PRN Constipation Trazodone HCl 50 mg 07/22/20 16:17 Trazodone Hcl 50 Mg Tablet PO BEDTIME PRN Insomnia Allergies Allergies Allergy/AdvReac Type Severity Reaction Status Date / Time acetaminophen [From TYLENOL] Allergy Intermediate HIVES Verified 07/22/20 02:13 meperidine [From Demerol] Allergy Unknown Verified 07/22/20 02:10 Assessment & Plan Assessment & Plan (1) Schizoaffective disorder: Status: Acute Code(s): F25.9 - Schizoaffective disorder, unspecified Assessment and Plan: Invega sustenna 234 mg IM Klonopin 0.5 mg bid Ativan/Olanzapine prn po/im Greater than 50% of the session was spent on counseling and/or coordination of care Reason for contiued inpatient stay Substantial Risk for: inability to function and rapid decompensation
[2020-08-06 16:00] VITALS: BP 141/92
[2020-08-06] MEDS: LORazepam 2 MG/ML VIAL 1 MG IM (16:11)
[2020-08-06] MEDS: OLANZapine 10 MG VIAL IM (16:11)
--- NOTE | 2020-08-06 16:36 | PC.NURSE ---
medicated per jack's order-pt continued to escalate verbally and posturing physically. verbalizes that staff are not staff that staff do not work in the hospital and that medications are not real medications. offered po medications, resistant to education. refused po medication and IM given as per jack's order. pt did require hands on to administer medication but was immediately released after injection. roommate was moved out of room due to negative verbalizations towards her. staff attempted to obtain vs but pt refusing and stating that blood pressure is not real. has fluids at bedside. will attempt to obtain vs at another time.
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
--- NOTE | 2020-08-06 19:28 | PC.NURSE ---
restraint time placed incorrectly in order set. time of restraint was 174. update information placed in system. release was at 1830.
--- NOTE | 2020-08-06 21:40 | PC.NURSE ---
REVIEWED WITH MD THAT PATIENT IS NOW SLEEPING. WILL HOLD EVENING MEDICATIONS ORDERED.
[2020-08-07] MEDS: LORazepam 2 MG/ML VIAL IM (10:23)
[2020-08-07] MEDS: OLANZapine 10 MG TABLET PO ×2 (10:24→20:32)
[2020-08-07] MEDS: LORazepam 1 MG TABLET 2 MG PO (16:08)
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
[2020-08-07] MEDS: clonazePAM 1 MG TABLET PO (20:09)
[2020-08-08 05:40] VITALS: BP 123/76; PULSE 112; RESP 18; TEMP 36.3; O2SAT 99
[2020-08-08] MEDS: OLANZapine 10 MG TABLET PO (10:01)
[2020-08-08] MEDS: clonazePAM 1 MG TABLET PO (10:01)
--- NOTE | 2020-08-08 18:09 | P.PNPSI_ITS ---
Subjective Subjective Date of Service: 08/08/20 Reason For Visit: aggression Subjective Notes: Section 8 Interim History: Angry, dismissive, agitated. Security present for pt's medicine choices-PO or IM-choice varies. Approached pt to check in. She stuck her tongue out and walked away, without speaking. Medication Compliance: Yes Side effects from medications: No Attending Groups: Yes Review of Systems Review of Systems Yes Unobtainable due to mental status Reports behavioral changes Psychiatric: Reports behavioral changes, Reports depression, Reports auditory hallucinations, Reports hopelessness, Reports irritability, Reports anhedonia, Reports mood swings, Reports paranoia and Reports hallucinations Mental Status Exam Mental Status Exam Patient Appearance: Disheveled and Unkempt Level of Consciousness: Alert Patient Behavior: Guarded, Suspicious, Belligerent, Anxious, Fearful, Resistive to Care, Avoidant, Fatigued, Distractible, Isolative, Uncooperative and Poor Eye Contact Mood Description: Suspicious, Withdrawn, Hostile, Labile and Angry Affect Description: Labile Patient Cognition Impaired: Yes Ability to Follow Directions: Fair Speech Pattern: Impoverished and Spontaneous Speech Memory Description: Remote Impaired, Immediate Impaired, Washery Boss Impaired and Episodic Impaired Hallucinations: Auditory Delusions: Being Controlled and Paranoid Ideation Thought Process: Illogical, Distracted and Rumination Thought Content: positive for Poverty of Content Depressive Symptoms: Increased Irritability, Hopelessness, Isolating- Friends/Family, Unhappiness, Increased Fatigue, Thoughts of /Suicide and Low Self Esteem Judgement: Poor Diagnostics Vital Signs (24Hr): Vital Signs - 24 hr 08/08/20 05:40 Temperature 97.4 F Pulse Rate 112 H Respiratory Rate 18 Blood Pressure 123/76 Pulse Oximetry 99 Body Mass Index 45.7 Labs Results: 07/31/20 13:55 07/31/20 13:55 Medications Medications Current Medications Generic Name Dose Route Start Last Admin Trade Name Freq PRN Reason Stop Dose Admin Al Hydroxide/Mg Hydroxide 30 ml 07/22/20 16:17 Magnesium Hydrox/Alum Hydrox 30 Ml Oral.Susp PO Q6H PRN Heartburn/Nausea Albuterol Sulfate 2 puff 07/22/20 17:54 Albuterol Sulfate 90 Mcg 8 Gm Inhaler INHALE Q4H PRN Shortness Of Breath Or Wheezing Benztropine Mesylate 1 mg 08/05/20 21:00 08/08/20 10:02 Benztropine Mesylate 1 Mg Tablet PO Not Given BID [facility] Clonazepam 1 mg 08/07/20 21:00 08/08/20 10:01 Clonazepam 1 Mg Tablet PO 1 mg BID [facility] Administration Hydroxyzine HCl 25 mg 07/22/20 16:17 Hydroxyzine Hcl 25 Mg Tablet PO BEDTIME PRN Anxiety Lisinopril 5 mg 07/23/20 09:00 08/08/20 10:01 Lisinopril 5 Mg Tablet PO Not Given DAILY [facility] Protocol Lorazepam 2 mg 08/06/20 18:11 08/07/20 16:08 Lorazepam 1 Mg Tablet PO 2 mg Q4H PRN Administration agitation Magnesium Hydroxide 30 ml 07/22/20 16:17 Milk Of Magnesia 30 Ml Oral.Susp PO DAILY PRN Constipation Melatonin 3 mg 07/22/20 17:58 Melatonin 3 Mg Tablet PO BEDTIME PRN Insomnia Metoprolol Tartrate 25 mg 07/22/20 21:00 08/08/20 10:01 Metoprolol Tartrate 25 Mg Tablet PO Not Given BID [facility] Protocol Multivitamins/Vitamin C 1 tab 07/23/20 09:00 08/08/20 10:02 Multivitamin Tablet PO Not Given DAILY [facility] Non-Formulary Medication 1 appl 07/23/20 09:00 Metronidazole [Metrogel] TOPICAL 07/28/20 23:59 DAILY [facility] Nystatin 1 appl 07/22/20 21:00 08/08/20 10:02 Nystatin Powder 15 Gm Bottle TOPICAL Not Given BID [facility] Protocol Olanzapine 10 mg 08/07/20 21:00 08/08/20 10:01 Olanzapine 10 Mg Tablet PO 10 mg BID [facility] Administration Olanzapine 5 mg 08/07/20 09:59 Olanzapine 5 Mg Tablet PO Q4H PRN psychosis, agitation Olanzapine 10 mg 08/07/20 21:00 Olanzapine 10 Mg Vial IM BID PRN IF PATIENT REFUSES PO Senna 17.2 mg 07/22/20 17:59 Sennosides 8.6 Mg Tablet PO DAILY PRN Constipation Trazodone HCl 50 mg 07/22/20 16:17 Trazodone Hcl 50 Mg Tablet PO BEDTIME PRN Insomnia Allergies Allergies Allergy/AdvReac Type Severity Reaction Status Date / Time acetaminophen [From TYLENOL] Allergy Intermediate HIVES Verified 07/22/20 02:13 meperidine [From Demerol] Allergy Unknown Verified 07/22/20 02:10 Assessment & Plan Assessment & Plan (1) Schizoaffective disorder: Status: Acute Code(s): F25.9 - Schizoaffective disorder, unspecified Greater than 50% of the session was spent on counseling and/or coordination of care Reason for contiued inpatient stay Substantial Risk for: harm to self, inability to function and rapid decompensation
[2020-08-08] MEDS: OLANZapine 10 MG VIAL IM (20:52)
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
[2020-08-09 06:35] VITALS: RESP 18
[2020-08-09] MEDS: OLANZapine 10 MG VIAL IM ×2 (08:18→21:59)
--- NOTE | 2020-08-09 17:21 | P.PNPSI_ITS ---
Subjective Subjective Date of Service: 08/09/20 Reason For Visit: aggression Subjective Notes: Section 8 Interim History: Accepted meds IM today, refusing PO. Declined to meet with this sql report writer, however did not verbally decline, just pointed her finger for TW to blu Braggable on the unit-appears unkempt, disheveled. Spends some time in the common area with TV-at times appears to be attentive to programming, at times appears to stare through. Eye contact is minimal but improving. Medication Compliance: Yes Side effects from medications: No Attending Groups: No Review of Systems Review of Systems Yes Unobtainable due to mental status Reports behavioral changes Psychiatric: Reports behavioral changes, Reports depression, Reports auditory hallucinations, Reports irritability, Reports anhedonia, Reports mood swings, Reports paranoia and Reports hallucinations Mental Status Exam Mental Status Exam Patient Appearance: Unkempt Patient Orientation: Person Level of Consciousness: Alert Patient Behavior: Guarded, Suspicious, Aggressive, Belligerent, Anxious, Resistive to Care, Avoidant, Fatigued, Distractible and Poor Eye Contact Diagnostics Vital Signs (24Hr): Vital Signs - 24 hr 08/09/20 06:35 Respiratory Rate 18 Body Mass Index 45.7 Labs Results: 07/31/20 13:55 07/31/20 13:55 Medications Medications Current Medications Generic Name Dose Route Start Last Admin Trade Name Freq PRN Reason Stop Dose Admin Al Hydroxide/Mg Hydroxide 30 ml 07/22/20 16:17 Magnesium Hydrox/Alum Hydrox 30 Ml Oral.Susp PO Q6H PRN Heartburn/Nausea Albuterol Sulfate 2 puff 07/22/20 17:54 Albuterol Sulfate 90 Mcg 8 Gm Inhaler INHALE Q4H PRN Shortness Of Breath Or Wheezing Benztropine Mesylate 1 mg 08/05/20 21:00 08/09/20 08:52 Benztropine Mesylate 1 Mg Tablet PO Not Given BID [facility] Clonazepam 1 mg 08/07/20 21:00 08/09/20 08:52 Clonazepam 1 Mg Tablet PO Not Given BID [facility] Hydroxyzine HCl 25 mg 07/22/20 16:17 Hydroxyzine Hcl 25 Mg Tablet PO BEDTIME PRN Anxiety Lisinopril 5 mg 07/23/20 09:00 08/09/20 08:52 Lisinopril 5 Mg Tablet PO Not Given DAILY [facility] Protocol Lorazepam 2 mg 08/06/20 18:11 08/07/20 16:08 Lorazepam 1 Mg Tablet PO 2 mg Q4H PRN Administration agitation Magnesium Hydroxide 30 ml 07/22/20 16:17 Milk Of Magnesia 30 Ml Oral.Susp PO DAILY PRN Constipation Melatonin 3 mg 07/22/20 17:58 Melatonin 3 Mg Tablet PO BEDTIME PRN Insomnia Metoprolol Tartrate 25 mg 07/22/20 21:00 08/09/20 08:52 Metoprolol Tartrate 25 Mg Tablet PO Not Given BID [facility] Protocol Multivitamins/Vitamin C 1 tab 07/23/20 09:00 08/09/20 08:53 Multivitamin Tablet PO Not Given DAILY [facility] Non-Formulary Medication 1 appl 07/23/20 09:00 Metronidazole [Metrogel] TOPICAL 07/28/20 23:59 DAILY [facility] Nystatin 1 appl 07/22/20 21:00 08/09/20 08:53 Nystatin Powder 15 Gm Bottle TOPICAL Not Given BID [facility] Protocol Olanzapine 10 mg 08/07/20 21:00 08/09/20 08:53 Olanzapine 10 Mg Tablet PO Not Given BID [facility] Olanzapine 5 mg 08/07/20 09:59 Olanzapine 5 Mg Tablet PO Q4H PRN psychosis, agitation Olanzapine 10 mg 08/07/20 21:00 08/09/20 08:18 Olanzapine 10 Mg Vial IM 10 mg BID PRN Administration IF PATIENT REFUSES PO Senna 17.2 mg 07/22/20 17:59 Sennosides 8.6 Mg Tablet PO DAILY PRN Constipation Trazodone HCl 50 mg 07/22/20 16:17 Trazodone Hcl 50 Mg Tablet PO BEDTIME PRN Insomnia Allergies Allergies Allergy/AdvReac Type Severity Reaction Status Date / Time acetaminophen [From TYLENOL] Allergy Intermediate HIVES Verified 07/22/20 02:13 meperidine [From Demerol] Allergy Unknown Verified 07/22/20 02:10 Assessment & Plan Assessment & Plan (1) Schizoaffective disorder: Status: Acute Code(s): F25.9 - Schizoaffective disorder, unspecified Assessment and Plan: -Continue current regime Greater than 50% of the session was spent on counseling and/or coordination of care Reason for contiued inpatient stay Substantial Risk for: harm to self, inability to function and rapid decompensation
[2020-08-10] MEDS: OLANZapine 10 MG VIAL IM ×2 (10:13→20:53)
--- NOTE | 2020-08-10 17:51 | HO.PSYCHPN ---
Subjective Subjective Date of Service: 08/10/20 Reason For Visit: aggression Subjective Notes: Section 8 Interim History: Hi. I don't have anything to say. Pt allowed minute dialogue today and did not dismiss TW. She appears fatigued, shakes her head to any symptoms or complaints Medication Compliance: Yes (prefers IM) Side effects from medications: No Attending Groups: No Review of Systems Review of Systems Yes Unobtainable due to mental status Reports behavioral changes Psychiatric: Reports behavioral changes, Reports depression, Reports difficulty concentrating, Reports auditory hallucinations, Reports hopelessness, Reports irritability, Reports anhedonia, Reports mood swings and Reports paranoia Mental Status Exam Mental Status Exam Patient Appearance: Fatigued and Disheveled Patient Orientation: Person Level of Consciousness: Awake and Sedated Patient Behavior: Appropriate, Guarded, Suspicious, Avoidant, Fatigued and Isolative Mood Description: Depressed Affect Description: Flat Patient Cognition Impaired: Yes Ability to Follow Directions: Fair Speech Pattern: Perseverating, Impoverished and Spontaneous Speech Memory Description: Remote Impaired and Episodic Impaired Hallucinations: Auditory Delusions: Paranoid Ideation Thought Process: Distracted and Rumination Thought Content: positive for Perseveration, positive for Tangential, positive for Disorganized and positive for Suicidal Ideation Depressive Symptoms: Increased Irritability, Loss of Int. in Activity, Feelings of Worthlessness, Hopelessness, Unhappiness, Thoughts of /Suicide, Low Self Esteem, Loss of Energy and Difficulty Concentrating Abnormal Motor Activity Signs and Symptoms: Restlessness Judgement: Poor Diagnostics Vital Signs (24Hr): Body Mass Index 45.7 Labs Results: 07/31/20 13:55 07/31/20 13:55 Medications Medications Current Medications Generic Name Dose Route Start Last Admin Trade Name Freq PRN Reason Stop Dose Admin Al Hydroxide/Mg Hydroxide 30 ml 07/22/20 16:17 Magnesium Hydrox/Alum Hydrox 30 Ml Oral.Susp PO Q6H PRN Heartburn/Nausea Albuterol Sulfate 2 puff 07/22/20 17:54 Albuterol Sulfate 90 Mcg 8 Gm Inhaler INHALE Q4H PRN Shortness Of Breath Or Wheezing Benztropine Mesylate 1 mg 08/05/20 21:00 08/10/20 10:15 Benztropine Mesylate 1 Mg Tablet PO Not Given BID [facility] Clonazepam 1 mg 08/07/20 21:00 08/10/20 10:15 Clonazepam 1 Mg Tablet PO Not Given BID [facility] Hydroxyzine HCl 25 mg 07/22/20 16:17 Hydroxyzine Hcl 25 Mg Tablet PO BEDTIME PRN Anxiety Lisinopril 5 mg 07/23/20 09:00 08/10/20 10:15 Lisinopril 5 Mg Tablet PO Not Given DAILY [facility] Protocol Lorazepam 2 mg 08/06/20 18:11 08/07/20 16:08 Lorazepam 1 Mg Tablet PO 2 mg Q4H PRN Administration agitation Magnesium Hydroxide 30 ml 07/22/20 16:17 Milk Of Magnesia 30 Ml Oral.Susp PO DAILY PRN Constipation Melatonin 3 mg 07/22/20 17:58 Melatonin 3 Mg Tablet PO BEDTIME PRN Insomnia Metoprolol Tartrate 25 mg 07/22/20 21:00 08/10/20 10:15 Metoprolol Tartrate 25 Mg Tablet PO Not Given BID [facility] Protocol Multivitamins/Vitamin C 1 tab 07/23/20 09:00 08/10/20 10:14 Multivitamin Tablet PO Not Given DAILY [facility] Nystatin 1 appl 07/22/20 21:00 08/10/20 10:14 Nystatin Powder 15 Gm Bottle TOPICAL Not Given BID [facility] Protocol Olanzapine 10 mg 08/07/20 21:00 08/10/20 10:14 Olanzapine 10 Mg Tablet PO Not Given BID [facility] Olanzapine 5 mg 08/07/20 09:59 Olanzapine 5 Mg Tablet PO Q4H PRN psychosis, agitation Olanzapine 10 mg 08/07/20 21:00 08/10/20 10:13 Olanzapine 10 Mg Vial IM 10 mg BID PRN Administration IF PATIENT REFUSES PO Senna 17.2 mg 07/22/20 17:59 Sennosides 8.6 Mg Tablet PO DAILY PRN Constipation Trazodone HCl 50 mg 07/22/20 16:17 Trazodone Hcl 50 Mg Tablet PO BEDTIME PRN Insomnia Allergies Allergies Allergy/AdvReac Type Severity Reaction Status Date / Time acetaminophen [From TYLENOL] Allergy Intermediate HIVES Verified 07/22/20 02:13 meperidine [From Demerol] Allergy Unknown Verified 07/22/20 02:10 Assessment & Plan Assessment & Plan (1) Schizoaffective disorder: Status: Acute Code(s): F25.9 - Schizoaffective disorder, unspecified Greater than 50% of the session was spent on counseling and/or coordination of care Reason for contiued inpatient stay Substantial Risk for: harm to self, harm to others, inability to function and rapid decompensation
[2020-08-11 06:00] VITALS: RESP 16
[2020-08-11] MEDS: OLANZapine 10 MG VIAL IM ×2 (09:31→20:45)
--- NOTE | 2020-08-11 16:33 | HO.PSYCHPN ---
Subjective Subjective Date of Service: 08/13/20 Reason For Visit: aggression Subjective Notes: Section 8 Interim History: Hi. How are you? Good, good, I am good. Would you get me some coffee? Calmer, distant, appears pre-occupied and thought blocking. Prefers meds IM. Declines conversation but allows approach and brief superficial dialogue. Preference is to not interact it appears. Medication Compliance: Yes (Prefers IM) Side effects from medications: No Attending Groups: No Review of Systems Review of Systems Yes Unobtainable due to mental status Reports behavioral changes Psychiatric: Reports behavioral changes, Reports depression, Reports difficulty concentrating, Reports auditory hallucinations, Reports hopelessness, Reports irritability and Reports paranoia Mental Status Exam Mental Status Exam Patient Appearance: Disheveled and Unkempt Patient Orientation: Person Level of Consciousness: Awake Patient Behavior: Guarded, Resistive to Care, Avoidant, Isolative and Poor Eye Contact Mood Description: Withdrawn Affect Description: Flat Patient Cognition Impaired: Yes Ability to Follow Directions: Fair Speech Pattern: Perseverating, Spontaneous Speech and Soft-Spoken Memory Description: Remote Impaired and Episodic Impaired Hallucinations: Auditory Delusions: Paranoid Ideation and Present Thought Process: Distracted and Rumination Thought Content: positive for Perseveration, positive for Thought Blocking and positive for Tangential Depressive Symptoms: Loss of Int. in Activity, Feelings of Worthlessness, Hopelessness, Isolating-Friends/Family, Unhappiness, Increased Fatigue, Loss of Energy and Difficulty Concentrating Judgement: Poor Diagnostics Vital Signs (24Hr): Vital Signs - 24 hr 08/11/20 06:00 Respiratory Rate 16 Body Mass Index 45.7 Labs Results: 07/31/20 13:55 07/31/20 13:55 Medications Medications Current Medications Generic Name Dose Route Start Last Admin Trade Name Freq PRN Reason Stop Dose Admin Al Hydroxide/Mg Hydroxide 30 ml 07/22/20 16:17 Magnesium Hydrox/Alum Hydrox 30 Ml Oral.Susp PO Q6H PRN Heartburn/Nausea Albuterol Sulfate 2 puff 07/22/20 17:54 Albuterol Sulfate 90 Mcg 8 Gm Inhaler INHALE Q4H PRN Shortness Of Breath Or Wheezing Benztropine Mesylate 1 mg 08/05/20 21:00 08/11/20 09:31 Benztropine Mesylate 1 Mg Tablet PO Not Given BID [facility] Clonazepam 1 mg 08/07/20 21:00 08/11/20 09:31 Clonazepam 1 Mg Tablet PO Not Given BID [facility] Hydroxyzine HCl 25 mg 07/22/20 16:17 Hydroxyzine Hcl 25 Mg Tablet PO BEDTIME PRN Anxiety Lisinopril 5 mg 07/23/20 09:00 08/11/20 09:31 Lisinopril 5 Mg Tablet PO Not Given DAILY [facility] Protocol Lorazepam 2 mg 08/06/20 18:11 08/07/20 16:08 Lorazepam 1 Mg Tablet PO 2 mg Q4H PRN Administration agitation Magnesium Hydroxide 30 ml 07/22/20 16:17 Milk Of Magnesia 30 Ml Oral.Susp PO DAILY PRN Constipation Melatonin 3 mg 07/22/20 17:58 Melatonin 3 Mg Tablet PO BEDTIME PRN Insomnia Metoprolol Tartrate 25 mg 07/22/20 21:00 08/11/20 09:31 Metoprolol Tartrate 25 Mg Tablet PO Not Given BID [facility] Protocol Multivitamins/Vitamin C 1 tab 07/23/20 09:00 08/11/20 09:31 Multivitamin Tablet PO Not Given DAILY [facility] Nystatin 1 appl 07/22/20 21:00 08/11/20 09:31 Nystatin Powder 15 Gm Bottle TOPICAL Not Given BID [facility] Protocol Olanzapine 10 mg 08/07/20 21:00 08/11/20 09:31 Olanzapine 10 Mg Tablet PO Not Given BID [facility] Olanzapine 5 mg 08/07/20 09:59 Olanzapine 5 Mg Tablet PO Q4H PRN psychosis, agitation Olanzapine 10 mg 08/07/20 21:00 08/11/20 09:31 Olanzapine 10 Mg Vial IM 10 mg BID PRN Administration IF PATIENT REFUSES PO Senna 17.2 mg 07/22/20 17:59 Sennosides 8.6 Mg Tablet PO DAILY PRN Constipation Trazodone HCl 50 mg 07/22/20 16:17 Trazodone Hcl 50 Mg Tablet PO BEDTIME PRN Insomnia Allergies Allergies Allergy/AdvReac Type Severity Reaction Status Date / Time acetaminophen [From TYLENOL] Allergy Intermediate HIVES Verified 07/22/20 02:13 meperidine [From Demerol] Allergy Unknown Verified 07/22/20 02:10 Assessment & Plan Assessment & Plan (1) Schizoaffective disorder: Status: Acute Code(s): F25.9 - Schizoaffective disorder, unspecified Assessment and Plan: -Invega Sustenna 156 mg on 08/12/20 is due. First dose of 234 mg given 08/04/20. Greater than 50% of the session was spent on counseling and/or coordination of care Reason for contiued inpatient stay Substantial Risk for: harm to self, harm to others, inability to function and rapid decompensation
[2020-08-12 06:00] VITALS: RESP 18
[2020-08-12 08:50] VITALS: PULSE 76; RESP 18
[2020-08-12] MEDS: Paliperidone Palmitate 156 MG/ML SYRINGE IM (09:35)
[2020-08-12] MEDS: OLANZapine 10 MG VIAL IM ×2 (09:36→21:31)
--- NOTE | 2020-08-12 10:50 | HO.PSYCHPN ---
Subjective Subjective Date of Service: 08/12/20 Reason For Visit: aggression Interim History: Pt minimally verbal, mostly staring at this commercial insurance underwriter, nodding head yes or no when asked questions. Per nursing, pt sleeping through night, less aggressive outburst, especially when medications offered, she rather get IM. She appears internally preoccupied, marked negativism, blank stare. She nods no, when asked about SI/HI. Appearance: casually groomed, poor hygiene, in NAD Behavior: minimally cooperative, blank stare Psychomotor: retardation noted Speech: non verbal during my interaction with her, but she does talk at times TP: unable to assess TC: unable to assess Mood:unable to assess Affect:flat AH/VH:appears to be responding to internal stimuli Delusions:guarded Insight/judgment:impaired Memory/cog:impaired secondary to psychiatric symptoms. Review of Systems Review of Systems Yes all other systems are reviewed and are negative and Unobtainable due to mental status Reports behavioral changes and Reports confusion Psychiatric: Reports behavioral changes and Reports confusion Diagnostics Vital Signs (24Hr): Vital Signs - 24 hr 08/12/20 06:00 08/12/20 08:50 Pulse Rate 76 Respiratory Rate 18 18 Body Mass Index 45.7 Labs Results: 07/31/20 13:55 07/31/20 13:55 Medications Medications Current Medications Generic Name Dose Route Start Last Admin Trade Name Freq PRN Reason Stop Dose Admin Al Hydroxide/Mg Hydroxide 30 ml 07/22/20 16:17 Magnesium Hydrox/Alum Hydrox 30 Ml Oral.Susp PO Q6H PRN Heartburn/Nausea Albuterol Sulfate 2 puff 07/22/20 17:54 Albuterol Sulfate 90 Mcg 8 Gm Inhaler INHALE Q4H PRN Shortness Of Breath Or Wheezing Benztropine Mesylate 1 mg 08/05/20 21:00 08/12/20 09:37 Benztropine Mesylate 1 Mg Tablet PO Not Given BID [facility] Clonazepam 1 mg 08/07/20 21:00 08/12/20 09:38 Clonazepam 1 Mg Tablet PO Not Given BID [facility] Hydroxyzine HCl 25 mg 07/22/20 16:17 Hydroxyzine Hcl 25 Mg Tablet PO BEDTIME PRN Anxiety Lisinopril 5 mg 07/23/20 09:00 08/12/20 09:39 Lisinopril 5 Mg Tablet PO Not Given DAILY [facility] Protocol Magnesium Hydroxide 30 ml 07/22/20 16:17 Milk Of Magnesia 30 Ml Oral.Susp PO DAILY PRN Constipation Melatonin 3 mg 07/22/20 17:58 Melatonin 3 Mg Tablet PO BEDTIME PRN Insomnia Metoprolol Tartrate 25 mg 07/22/20 21:00 08/12/20 09:38 Metoprolol Tartrate 25 Mg Tablet PO Not Given BID [facility] Protocol Multivitamins/Vitamin C 1 tab 07/23/20 09:00 08/12/20 09:38 Multivitamin Tablet PO Not Given DAILY [facility] Nystatin 1 appl 07/22/20 21:00 08/12/20 09:38 Nystatin Powder 15 Gm Bottle TOPICAL Not Given BID [facility] Protocol Olanzapine 10 mg 08/07/20 21:00 08/12/20 09:39 Olanzapine 10 Mg Tablet PO Not Given BID [facility] Olanzapine 5 mg 08/07/20 09:59 Olanzapine 5 Mg Tablet PO Q4H PRN psychosis, agitation Olanzapine 10 mg 08/07/20 21:00 08/12/20 09:36 Olanzapine 10 Mg Vial IM 10 mg BID PRN Administration IF PATIENT REFUSES PO Senna 17.2 mg 07/22/20 17:59 Sennosides 8.6 Mg Tablet PO DAILY PRN Constipation Trazodone HCl 50 mg 07/22/20 16:17 Trazodone Hcl 50 Mg Tablet PO BEDTIME PRN Insomnia Allergies Allergies Allergy/AdvReac Type Severity Reaction Status Date / Time acetaminophen [From TYLENOL] Allergy Intermediate HIVES Verified 07/22/20 02:13 meperidine [From Demerol] Allergy Unknown Verified 07/22/20 02:10 Assessment & Plan Assessment & Plan (1) Schizoaffective disorder: Status: Acute Code(s): F25.9 - Schizoaffective disorder, unspecified Assessment and Plan: -Invega Sustenna 156 mg on 08/12/20 is due. First dose of 234 mg given 08/04/20. continue olanzapine Greater than 50% of the session was spent on counseling and/or coordination of care Reason for contiued inpatient stay Substantial Risk for: inability to function
[2020-08-12 18:00] VITALS: BP 131/64; PULSE 94; RESP 16; TEMP 37.1
[2020-08-12 21:29] VITALS: BP 131/64; PULSE 94
[2020-08-13 05:50] VITALS: RESP 16
[2020-08-13] MEDS: OLANZapine 10 MG VIAL IM ×2 (10:05→22:46)
[2020-08-13] MEDS: LORazepam 2 MG/ML VIAL IM (10:05)
--- NOTE | 2020-08-13 10:45 | P.PNPSI_ITS ---
Subjective Subjective Date of Service: 08/13/20 Reason For Visit: aggression Interim History: Pt minimally verbal, mostly staring at this handbook writer, nodding head yes or no when asked questions. Today, she did tell this handbook writer get out, I don't want to talk, your not a nurse. When told if it matter and she would agree to talk with this handbook writer she states I know you're not human. Per santos damon, pt sleeping through night, less aggressive outburst, especially when medications offered although continues to refuse oral and getting mostly IM. She appears internally preoccupied, marked negativism, blank stare. She nods no, when asked about SI/HI. She is internally preoccupied and very paranoid. Appearance: casually groomed, poor hygiene, in NAD Behavior: minimally cooperative, blank stare Psychomotor: retardation noted Speech: non verbal during my interaction with her, but she does talk at times TP: unable to assess TC: unable to assess Mood:unable to assess Affect:flat AH/VH:appears to be responding to internal stimuli Delusions:guarded Insight/judgment:impaired Memory/cog:impaired secondary to psychiatric symptoms. Review of Systems Review of Systems Yes all other systems are reviewed and are negative and Unobtainable due to mental status Reports behavioral changes and Reports confusion Psychiatric: Reports abnormal sleep pattern, Reports anxiety, Reports behavioral changes, Reports change in appetite, Reports confusion, Reports depression, Reports difficulty concentrating, Reports auditory hallucinations, Reports hopelessness, Reports irritability, Reports anhedonia, Reports mood swings, Reports paranoia, Reports visual hallucinations, Reports hallucinations, Reports homicidal ideation and Reports suicidal ideation (has told her HCP this week there is no reason to live after loss of partner) Diagnostics Vital Signs (24Hr): Vital Signs - 24 hr 08/12/20 18:00 08/12/20 21:29 08/13/20 05:50 Temperature 98.7 F Pulse Rate 94 94 Respiratory Rate 16 16 Blood Pressure 131/64 131/64 Body Mass Index 45.7 Labs Results: 07/31/20 13:55 07/31/20 13:55 Medications Medications Current Medications Generic Name Dose Route Start Last Admin Trade Name Freq PRN Reason Stop Dose Admin Al Hydroxide/Mg Hydroxide 30 ml 07/22/20 16:17 Magnesium Hydrox/Alum Hydrox 30 Ml Oral.Susp PO Q6H PRN Heartburn/Nausea Albuterol Sulfate 2 puff 07/22/20 17:54 Albuterol Sulfate 90 Mcg 8 Gm Inhaler INHALE Q4H PRN Shortness Of Breath Or Wheezing Benztropine Mesylate 1 mg 08/05/20 21:00 08/13/20 09:08 Benztropine Mesylate 1 Mg Tablet PO Not Given BID [facility] Hydroxyzine HCl 25 mg 07/22/20 16:17 Hydroxyzine Hcl 25 Mg Tablet PO BEDTIME PRN Anxiety Lisinopril 5 mg 07/23/20 09:00 08/13/20 09:08 Lisinopril 5 Mg Tablet PO Not Given DAILY [facility] Protocol Magnesium Hydroxide 30 ml 07/22/20 16:17 Milk Of Magnesia 30 Ml Oral.Susp PO DAILY PRN Constipation Melatonin 3 mg 07/22/20 17:58 Melatonin 3 Mg Tablet PO BEDTIME PRN Insomnia Metoprolol Tartrate 25 mg 07/22/20 21:00 08/13/20 09:08 Metoprolol Tartrate 25 Mg Tablet PO Not Given BID [facility] Protocol Multivitamins/Vitamin C 1 tab 07/23/20 09:00 08/13/20 09:08 Multivitamin Tablet PO Not Given DAILY [facility] Nystatin 1 appl 07/22/20 21:00 08/13/20 09:08 Nystatin Powder 15 Gm Bottle TOPICAL Not Given BID [facility] Protocol Olanzapine 10 mg 08/07/20 21:00 08/13/20 09:09 Olanzapine 10 Mg Tablet PO Not Given BID [facility] Olanzapine 5 mg 08/07/20 09:59 Olanzapine 5 Mg Tablet PO Q4H PRN psychosis, agitation Olanzapine 10 mg 08/07/20 21:00 08/13/20 10:05 Olanzapine 10 Mg Vial IM 10 mg BID PRN Administration IF PATIENT REFUSES PO Senna 17.2 mg 07/22/20 17:59 Sennosides 8.6 Mg Tablet PO DAILY PRN Constipation Trazodone HCl 50 mg 07/22/20 16:17 Trazodone Hcl 50 Mg Tablet PO BEDTIME PRN Insomnia Allergies Allergies Allergy/AdvReac Type Severity Reaction Status Date / Time acetaminophen [From TYLENOL] Allergy Intermediate HIVES Verified 07/22/20 02:13 meperidine [From Demerol] Allergy Unknown Verified 07/22/20 02:10 Assessment & Plan Assessment & Plan (1) Schizoaffective disorder: Status: Acute Code(s): F25.9 - Schizoaffective disorder, unspecified Assessment and Plan: -Invega Sustenna 156 mg on 08/12/20 is due. First dose of 234 mg given 08/04/20. Greater than 50% of the session was spent on counseling and/or coordination of care Reason for contiued inpatient stay Substantial Risk for: inability to function
[2020-08-13 20:58] VITALS: BP 99/54; PULSE 86; RESP 18; TEMP 36.5; O2SAT 96
[2020-08-13] MEDS: metroNIDAZOLE 0.75 % Gel 45 GM TUBE 1 APPL TOPICAL (22:26)
--- NOTE | 2020-08-14 04:47 | PC.NURSE ---
During HS medication pass pt reported that she would not take medication due to having detoxed from all my medication: cymbaltal, klonopin... Pt provided with medication education but continued to refuse medication. You're not a nurse. This isn't a hospital. I don't have a [facility] order. Pt allowed for vital signs to be assessed. Order received for Metro Gel which pt reported self-admin outside of hospital. Pt observed to admin first dose to facial area where redness and dry flaky skin present. After refusing HS PO medication, pt recived IM per [facility] order with presence of security. Cont to deny [facility] order but allowed for admin of IM. Pt stated I slept all day today but refused PRN medication. Listened to music and in bed by 0100. Pt slept remainder of shift.
[2020-08-14 06:00] VITALS: RESP 18
[2020-08-14] MEDS: OLANZapine 10 MG VIAL IM ×2 (09:04→21:25)
--- NOTE | 2020-08-14 17:32 | HO.PSYCHPN ---
Subjective Subjective Date of Service: 08/14/20 Reason For Visit: aggression Interim History: Increase in presence and social activity. Increase in social conversation. Clinically, when attempts are made to communicate, assess, pt shuts down-accusatory of providers not being providers, not being real dismissive of any discussion. Accepts IM medications, remains with paranoia, delusions, withdrawal and depressive sx. Medication Compliance: Yes (court ordered-using IM) Side effects from medications: No Attending Groups: No Review of Systems Review of Systems Yes Unobtainable due to mental status Reports confusion Psychiatric: Reports anxiety, Reports confusion, Reports depression, Reports difficulty concentrating, Reports auditory hallucinations, Reports hopelessness, Reports irritability, Reports anhedonia, Reports mood swings, Reports paranoia, Reports hallucinations and Reports suicidal ideation (? will not answer) Mental Status Exam Mental Status Exam Patient Appearance: Disheveled, Unkempt and Malodorous Patient Orientation: Person and Place Level of Consciousness: Awake Patient Behavior: Guarded, Cooperative, Suspicious, Restless, Anxious, Fearful, Resistive to Care, Avoidant, Combative, Fatigued, Distractible, Isolative, Uncooperative and Poor Eye Contact Mood Description: Depressed, Labile and Angry Affect Description: Labile Patient Cognition Impaired: Yes Ability to Follow Directions: Fair Speech Pattern: Difficulty Finding Words and Spontaneous Speech Memory Description: Remote Impaired and Episodic Impaired Hallucinations: Auditory Delusions: Paranoid Ideation Perceptual Disturbances: Depersonalization and Derealization Thought Process: Distracted and Rumination Thought Content: positive for [place] and positive for Circumstantial Depressive Symptoms: Increased Anxiety, Increased Irritability, Hopelessness, Isolating-Friends/Family, Unhappiness and Low Self Esteem Judgement: Poor Diagnostics Vital Signs (24Hr): Vital Signs - 24 hr 08/13/20 20:58 08/14/20 06:00 Temperature 97.7 F Pulse Rate 86 Respiratory Rate 18 18 Blood Pressure 99/54 L Pulse Oximetry 96 Body Mass Index 45.7 Labs Results: 07/31/20 13:55 07/31/20 13:55 Medications Medications Current Medications Generic Name Dose Route Start Last Admin Trade Name Freq PRN Reason Stop Dose Admin Al Hydroxide/Mg Hydroxide 30 ml 07/22/20 16:17 Magnesium Hydrox/Alum Hydrox 30 Ml Oral.Susp PO Q6H PRN Heartburn/Nausea Albuterol Sulfate 2 puff 07/22/20 17:54 Albuterol Sulfate 90 Mcg 8 Gm Inhaler INHALE Q4H PRN Shortness Of Breath Or Wheezing Benztropine Mesylate 1 mg 08/05/20 21:00 08/14/20 09:03 Benztropine Mesylate 1 Mg Tablet PO Not Given BID [facility] Hydroxyzine HCl 25 mg 07/22/20 16:17 Hydroxyzine Hcl 25 Mg Tablet PO BEDTIME PRN Anxiety Lisinopril 5 mg 07/23/20 09:00 08/14/20 09:03 Lisinopril 5 Mg Tablet PO Not Given DAILY [facility] Protocol Magnesium Hydroxide 30 ml 07/22/20 16:17 Milk Of Magnesia 30 Ml Oral.Susp PO DAILY PRN Constipation Melatonin 3 mg 07/22/20 17:58 Melatonin 3 Mg Tablet PO BEDTIME PRN Insomnia Metoprolol Tartrate 25 mg 07/22/20 21:00 08/14/20 09:03 Metoprolol Tartrate 25 Mg Tablet PO Not Given BID [facility] Protocol Metronidazole 1 appl 08/14/20 09:00 08/14/20 10:40 Metronidazole 0.75 % Gel 45 Gm Tube TOPICAL Not Given BID [facility] Multivitamins/Vitamin C 1 tab 07/23/20 09:00 08/14/20 09:03 Multivitamin Tablet PO Not Given DAILY [facility] Nystatin 1 appl 07/22/20 21:00 08/14/20 09:03 Nystatin Powder 15 Gm Bottle TOPICAL Not Given BID [facility] Protocol Olanzapine 10 mg 08/07/20 21:00 08/14/20 10:10 Olanzapine 10 Mg Tablet PO Not Given BID [facility] Olanzapine 5 mg 08/07/20 09:59 Olanzapine 5 Mg Tablet PO Q4H PRN psychosis, agitation Olanzapine 10 mg 08/07/20 21:00 08/14/20 09:04 Olanzapine 10 Mg Vial IM 10 mg BID PRN Administration IF PATIENT REFUSES PO Senna 17.2 mg 07/22/20 17:59 Sennosides 8.6 Mg Tablet PO DAILY PRN Constipation Trazodone HCl 50 mg 07/22/20 16:17 Trazodone Hcl 50 Mg Tablet PO BEDTIME PRN Insomnia Allergies Allergies Allergy/AdvReac Type Severity Reaction Status Date / Time acetaminophen [From TYLENOL] Allergy Intermediate HIVES Verified 07/22/20 02:13 meperidine [From Demerol] Allergy Unknown Verified 07/22/20 02:10 Assessment & Plan Assessment & Plan (1) Schizoaffective disorder: Status: Acute Code(s): F25.9 - Schizoaffective disorder, unspecified Assessment and Plan: -Continue to attempt alliance -Continue current medication regime. Greater than 50% of the session was spent on counseling and/or coordination of care Reason for contiued inpatient stay Substantial Risk for: harm to self, inability to function and rapid decompensation
[2020-08-14 18:00] VITALS: BP 131/87; PULSE 93; TEMP 36.1
[2020-08-15 06:00] VITALS: RESP 18
[2020-08-15] MEDS: OLANZapine 10 MG VIAL IM ×2 (09:41→21:24)
[2020-08-15] MEDS: LORazepam 2 MG/ML VIAL IM (09:42)
--- NOTE | 2020-08-15 15:59 | P.PNPSI_ITS ---
Subjective Subjective Date of Service: 08/15/20 Reason For Visit: aggression Subjective Notes: Section 8 Interim History: Angry and more isolative today. Pt would not allow eye contact, covered her head with a blanket, stating Go . Accepting IM medications only. Ir ritable, paranoid and withdrawn. Medication Compliance: Yes (IM) Side effects from medications: No Attending Groups: No Review of Systems Review of Systems Yes Unobtainable due to mental status Reports behavioral changes Psychiatric: Reports behavioral changes, Reports depression, Reports difficulty concentrating, Reports hopelessness, Reports irritability, Reports anhedonia, Reports mood swings and Reports paranoia Mental Status Exam Mental Status Exam Patient Appearance: Fatigued, Disheveled, Unkempt and Malodorous Patient Orientation: Person Level of Consciousness: Alert Patient Behavior: Guarded, Suspicious, Resistive to Care, Avoidant, Fatigued, Distractible, Isolative, Uncooperative, Impulsive and Poor Eye Contact Mood Description: Suspicious, Withdrawn, Hostile, Labile and Angry Affect Description: Labile Patient Cognition Impaired: Yes Ability to Follow Directions: Poor Speech Pattern: Impoverished and Spontaneous Speech Memory Description: Remote Impaired and Episodic Impaired Hallucinations: Auditory Delusions: Being Controlled, Paranoid Ideation and Present Thought Process: Distracted, Rumination and Evasive Thought Content: positive for [place], positive for Circumstantial, positive for Perseveration, positive for Poverty of Content, positive for Preoccupation, positive for Thought Blocking and positive for Evasive Depressive Symptoms: Increased Irritability Judgement: Poor Diagnostics Vital Signs (24Hr): Vital Signs - 24 hr 08/14/20 18:00 08/15/20 06:00 Temperature 97.0 F Pulse Rate 93 Respiratory Rate 18 Blood Pressure 131/87 Body Mass Index 45.7 Labs Results: 07/31/20 13:55 07/31/20 13:55 Medications Medications Current Medications Generic Name Dose Route Start Last Admin Trade Name Freq PRN Reason Stop Dose Admin Al Hydroxide/Mg Hydroxide 30 ml 07/22/20 16:17 Magnesium Hydrox/Alum Hydrox 30 Ml Oral.Susp PO Q6H PRN Heartburn/Nausea Albuterol Sulfate 2 puff 07/22/20 17:54 Albuterol Sulfate 90 Mcg 8 Gm Inhaler INHALE Q4H PRN Shortness Of Breath Or Wheezing Benztropine Mesylate 1 mg 08/05/20 21:00 08/15/20 09:44 Benztropine Mesylate 1 Mg Tablet PO Not Given BID [facility] Hydroxyzine HCl 25 mg 07/22/20 16:17 Hydroxyzine Hcl 25 Mg Tablet PO BEDTIME PRN Anxiety Lisinopril 5 mg 07/23/20 09:00 08/15/20 09:44 Lisinopril 5 Mg Tablet PO Not Given DAILY [facility] Protocol Magnesium Hydroxide 30 ml 07/22/20 16:17 Milk Of Magnesia 30 Ml Oral.Susp PO DAILY PRN Constipation Melatonin 3 mg 07/22/20 17:58 Melatonin 3 Mg Tablet PO BEDTIME PRN Insomnia Metoprolol Tartrate 25 mg 07/22/20 21:00 08/15/20 09:46 Metoprolol Tartrate 25 Mg Tablet PO Not Given BID [facility] Protocol Metronidazole 1 appl 08/14/20 09:00 08/15/20 09:46 Metronidazole 0.75 % Gel 45 Gm Tube TOPICAL Not Given BID [facility] Multivitamins/Vitamin C 1 tab 07/23/20 09:00 08/15/20 09:46 Multivitamin Tablet PO Not Given DAILY [facility] Nystatin 1 appl 07/22/20 21:00 08/15/20 09:46 Nystatin Powder 15 Gm Bottle TOPICAL Not Given BID [facility] Protocol Olanzapine 10 mg 08/07/20 21:00 08/15/20 09:47 Olanzapine 10 Mg Tablet PO Not Given BID [facility] Olanzapine 5 mg 08/07/20 09:59 Olanzapine 5 Mg Tablet PO Q4H PRN psychosis, agitation Olanzapine 10 mg 08/07/20 21:00 08/15/20 09:41 Olanzapine 10 Mg Vial IM 10 mg BID PRN Administration IF PATIENT REFUSES PO Senna 17.2 mg 07/22/20 17:59 Sennosides 8.6 Mg Tablet PO DAILY PRN Constipation Trazodone HCl 50 mg 07/22/20 16:17 Trazodone Hcl 50 Mg Tablet PO BEDTIME PRN Insomnia Allergies Allergies Allergy/AdvReac Type Severity Reaction Status Date / Time acetaminophen [From TYLENOL] Allergy Intermediate HIVES Verified 07/22/20 02:13 meperidine [From Demerol] Allergy Unknown Verified 07/22/20 02:10 Assessment & Plan Assessment & Plan (1) Schizoaffective disorder: Status: Acute Code(s): F25.9 - Schizoaffective disorder, unspecified Greater than 50% of the session was spent on counseling and/or coordination of care Reason for contiued inpatient stay Substantial Risk for: harm to self, inability to function and rapid decompensation
[2020-08-16] MEDS: OLANZapine 10 MG VIAL IM (09:03)
--- NOTE | 2020-08-16 17:04 | P.PNPSI_ITS ---
Subjective Subjective Date of Service: 08/17/20 Reason For Visit: aggression Subjective Notes: Section 8 Interim History: Depressed, withdrawn, angry, looks through people when they attempt to connect. Pt in bed, awake, eyes will open when spoken to. Attempted to talk with pt about taking PO meds, specifically an antidepressant to assist with sx as Olanzapine is not seeming to be assisting in mood sx relief. Pt initially denied TW identity, claiming imposters-confronted on this perspective as being similiar to other interactions and needing to move forward with her treatment. Pt clearly expressed anger with profanity and some communication allowing insight into her perspective. you f------ b----. He is and you don't care. I can't go on without him. Told pt we were going to keep trying to help her through this. HCP tells Natividad WINN that by history it took three cycles of Sustenna for pt to have sx relief and clarity. Review of Systems Review of Systems Yes Unobtainable due to mental status Reports behavioral changes Psychiatric: Reports anxiety, Reports behavioral changes, Reports depression, Reports difficulty concentrating, Reports auditory hallucinations, Reports hopelessness, Reports irritability, Reports anhedonia, Reports mood swings, Reports paranoia and Reports suicidal ideation Mental Status Exam Mental Status Exam Patient Appearance: Fatigued, Disheveled, Unkempt and Malodorous Patient Orientation: Person and Situation Level of Consciousness: Awake, Sedated and Alert Patient Behavior: Guarded, Suspicious, Aggressive, Belligerent, Swearing, Anxious, Fearful, Avoidant, Fatigued, Distractible, Isolative, Uncooperative, Impulsive and Poor Eye Contact Mood Description: Depressed, Angry and Flat Affect Description: Depressed, Angry and Flat Patient Cognition Impaired: Yes Ability to Follow Directions: Fair Speech Pattern: Perseverating, Spontaneous Speech, Soft-Spoken and Delayed Memory Description: Remote Impaired and Episodic Impaired Hallucinations: Auditory Delusions: Paranoid Ideation Thought Process: Rumination Thought Content: positive for [place], positive for Obsessional Thoughts, positive for Circumstantial, positive for Perseveration, positive for Poverty of Content, positive for Preoccupation, positive for Tangential and positive for Suicidal Ideation Depressive Symptoms: Increased Irritability, Loss of Int. in Activity, Feelings of Worthlessness, Hopelessness, Isolating-Friends/Family, Unhappiness, Increased Fatigue, Low Self Esteem and Difficulty Concentrating Abnormal Motor Activity Signs and Symptoms: Agitation Judgement: Poor Diagnostics Vital Signs (24Hr): Body Mass Index 45.7 Labs Results: 07/31/20 13:55 07/31/20 13:55 Medications Medications Current Medications Generic Name Dose Route Start Last Admin Trade Name Freq PRN Reason Stop Dose Admin Al Hydroxide/Mg Hydroxide 30 ml 07/22/20 16:17 Magnesium Hydrox/Alum Hydrox 30 Ml Oral.Susp PO Q6H PRN Heartburn/Nausea Albuterol Sulfate 2 puff 07/22/20 17:54 Albuterol Sulfate 90 Mcg 8 Gm Inhaler INHALE Q4H PRN Shortness Of Breath Or Wheezing Benztropine Mesylate 1 mg 08/05/20 21:00 08/16/20 08:32 Benztropine Mesylate 1 Mg Tablet PO Not Given BID [facility] Haloperidol 5 mg 08/16/20 21:00 Haloperidol 5 Mg Tablet PO BID [facility] Haloperidol 5 mg 08/16/20 16:00 Haloperidol 5 Mg Tablet PO Q4H PRN Psychosis Lisinopril 5 mg 07/23/20 09:00 08/16/20 08:32 Lisinopril 5 Mg Tablet PO Not Given DAILY [facility] Protocol Lorazepam 1 mg 08/16/20 21:00 Lorazepam 1 Mg Tablet PO BID [facility] Lorazepam 1 mg 08/16/20 16:04 Lorazepam 1 Mg Tablet PO Q4H PRN agiation Magnesium Hydroxide 30 ml 07/22/20 16:17 Milk Of Magnesia 30 Ml Oral.Susp PO DAILY PRN Constipation Melatonin 3 mg 07/22/20 17:58 Melatonin 3 Mg Tablet PO BEDTIME PRN Insomnia Metoprolol Tartrate 25 mg 07/22/20 21:00 08/16/20 08:33 Metoprolol Tartrate 25 Mg Tablet PO Not Given BID [facility] Protocol Metronidazole 1 appl 08/14/20 09:00 08/16/20 08:33 Metronidazole 0.75 % Gel 45 Gm Tube TOPICAL Not Given BID [facility] Multivitamins/Vitamin C 1 tab 07/23/20 09:00 08/16/20 08:33 Multivitamin Tablet PO Not Given DAILY [facility] Nystatin 1 appl 07/22/20 21:00 08/16/20 08:33 Nystatin Powder 15 Gm Bottle TOPICAL Not Given BID [facility] Protocol Senna 17.2 mg 07/22/20 17:59 Sennosides 8.6 Mg Tablet PO DAILY PRN Constipation Trazodone HCl 50 mg 07/22/20 16:17 Trazodone Hcl 50 Mg Tablet PO BEDTIME PRN Insomnia Allergies Allergies Allergy/AdvReac Type Severity Reaction Status Date / Time acetaminophen [From TYLENOL] Allergy Intermediate HIVES Verified 07/22/20 02:13 meperidine [From Demerol] Allergy Unknown Verified 07/22/20 02:10 Assessment & Plan Assessment & Plan (1) Schizoaffective disorder: Status: Acute Code(s): F25.9 - Schizoaffective disorder, unspecified Assessment and Plan: Discontinue Olanzapine Haldol 5 mg bid Lorazepam 1 mg bid Greater than 50% of the session was spent on counseling and/or coordination of care Reason for contiued inpatient stay Substantial Risk for: harm to self, inability to function and rapid decompensation
[2020-08-16] MEDS: LORazepam 2 MG/ML VIAL 1 MG IM (21:31)
[2020-08-16] MEDS: Haloperidol Lactate 5 MG/ML VIAL IM (21:42)
[2020-08-17 06:00] VITALS: RESP 18
[2020-08-17] MEDS: Haloperidol Lactate 5 MG/ML VIAL IM ×2 (10:01→21:48)
[2020-08-17] MEDS: LORazepam 2 MG/ML VIAL 1 MG IM ×2 (10:01→21:48)
--- NOTE | 2020-08-17 15:02 | PC.ADMIT ---
Pt refusing to have her weight done ,approached x2.
--- NOTE | 2020-08-17 17:46 | P.PNPSI_ITS ---
Subjective Subjective Date of Service: 08/17/20 Reason For Visit: aggression Subjective Notes: Section 8 Interim History: Zyprexa change to Haldol as pt is not responding to this agent with improvement in mood and thought process. Angry, irritable, dismissive and isolative today. Medication Compliance: Yes (Will take IM meds only) Side effects from medications: No Attending Groups: No Review of Systems Review of Systems Yes Unobtainable due to mental status Reports behavioral changes, Reports confusion and Reports memory loss Psychiatric: Reports anxiety, Reports behavioral changes, Reports confusion, Reports depression, Reports difficulty concentrating, Reports auditory hallucinations, Reports hopelessness, Reports irritability, Reports anhedonia, Reports memory loss, Reports mood swings, Reports paranoia and Reports suicidal ideation Mental Status Exam Mental Status Exam Patient Appearance: Disheveled and Unkempt Patient Orientation: Person Level of Consciousness: Alert Patient Behavior: Guarded, Suspicious, Anxious, Fearful, Resistive to Care, Avoidant, Fatigued, Distractible, Confused, Uncooperative and Poor Eye Contact Mood Description: Apathetic, Suspicious, Withdrawn, Depressed, Hostile, Anxious, Labile, Angry, Sad, Nervous and Apprehensive Affect Description: Labile Patient Cognition Impaired: Yes Ability to Follow Directions: Fair Speech Pattern: Spontaneous Speech and Soft-Spoken Memory Description: Remote Impaired and Episodic Impaired Hallucinations: Auditory Delusions: Present Thought Process: Illogical, Distracted, Rumination and Confusion Thought Content: positive for [place], positive for Circumstantial, positive for Perseveration, positive for Poverty of Content, positive for Loose Associations, positive for Thought Blocking, positive for Tangential and positive for Suicidal Ideation Depressive Symptoms: Increased Anxiety, Increased Irritability, Isolating- Friends/Family, Unhappiness, Thoughts of /Suicide, Low Self Esteem, Loss of Energy and Difficulty Concentrating Abnormal Motor Activity Signs and Symptoms: Agitation Judgement: Poor Diagnostics Vital Signs (24Hr): Vital Signs - 24 hr 08/17/20 06:00 Respiratory Rate 18 Body Mass Index 0.0 Labs Results: 07/31/20 13:55 07/31/20 13:55 Medications Medications Current Medications Generic Name Dose Route Start Last Admin Trade Name Freq PRN Reason Stop Dose Admin Al Hydroxide/Mg Hydroxide 30 ml 07/22/20 16:17 Magnesium Hydrox/Alum Hydrox 30 Ml Oral.Susp PO Q6H PRN Heartburn/Nausea Albuterol Sulfate 2 puff 07/22/20 17:54 Albuterol Sulfate 90 Mcg 8 Gm Inhaler INHALE Q4H PRN Shortness Of Breath Or Wheezing Benztropine Mesylate 1 mg 08/05/20 21:00 08/17/20 10:00 Benztropine Mesylate 1 Mg Tablet PO Not Given BID [facility] Benztropine Mesylate 1 mg 08/17/20 10:08 Benztropine Mesylate 2 Mg/2 Ml Vial IM Q6H PRN Extrapyramidal Effects Haloperidol 5 mg 08/16/20 21:00 08/17/20 09:58 Haloperidol 5 Mg Tablet PO Not Given BID [facility] Haloperidol 5 mg 08/16/20 19:09 Haloperidol 5 Mg Tablet PO BID PRN Psychosis Haloperidol Lactate 5 mg 08/16/20 19:26 08/17/20 10:01 Haloperidol Lactate 5 Mg/Ml Vial IM 5 mg BID PRN Administration if pt refuses po per court order Lisinopril 5 mg 07/23/20 09:00 08/17/20 09:58 Lisinopril 5 Mg Tablet PO Not Given DAILY [facility] Protocol Lorazepam 1 mg 08/16/20 16:04 Lorazepam 1 Mg Tablet PO Q4H PRN agiation Lorazepam 1 mg 08/16/20 21:00 08/17/20 09:59 Lorazepam 1 Mg Tablet PO Not Given BID [facility] Lorazepam 1 mg 08/16/20 19:29 08/17/20 10:01 Lorazepam 2 Mg/Ml Vial IM 1 mg BID PRN Administration if pt refuses po per court ord Magnesium Hydroxide 30 ml 07/22/20 16:17 Milk Of Magnesia 30 Ml Oral.Susp PO DAILY PRN Constipation Melatonin 3 mg 07/22/20 17:58 Melatonin 3 Mg Tablet PO BEDTIME PRN Insomnia Metoprolol Tartrate 25 mg 07/22/20 21:00 08/17/20 09:59 Metoprolol Tartrate 25 Mg Tablet PO Not Given BID [facility] Protocol Metronidazole 1 appl 08/14/20 09:00 08/17/20 10:00 Metronidazole 0.75 % Gel 45 Gm Tube TOPICAL Not Given BID [facility] Multivitamins/Vitamin C 1 tab 07/23/20 09:00 08/17/20 10:00 Multivitamin Tablet PO Not Given DAILY [facility] Nystatin 1 appl 07/22/20 21:00 03/25/21 09:59 Nystatin Powder 15 Gm Bottle TOPICAL Not Given BID [facility] Protocol Senna 17.2 mg 07/22/20 17:59 Sennosides 8.6 Mg Tablet PO DAILY PRN Constipation Trazodone HCl 50 mg 07/22/20 16:17 Trazodone Hcl 50 Mg Tablet PO BEDTIME PRN Insomnia Allergies Allergies Allergy/AdvReac Type Severity Reaction Status Date / Time acetaminophen [From TYLENOL] Allergy Intermediate HIVES Verified 07/22/20 02:13 meperidine [From Demerol] Allergy Unknown Verified 07/22/20 02:10 Assessment & Plan Assessment & Plan (1) Schizoaffective disorder: Status: Acute Code(s): F25.9 - Schizoaffective disorder, unspecified Assessment and Plan: -Change of regime, Zyprexa to Haldol. Observe for changes, SE, improvement. Greater than 50% of the session was spent on counseling and/or coordination of care Reason for contiued inpatient stay Substantial Risk for: harm to self, harm to others, inability to function, rapid decompensation and med/psych decompensation
[2020-08-18 06:30] VITALS: RESP 20
[2020-08-18] MEDS: Benztropine Mesylate 2 MG/2 ML VIAL 1 MG IM ×2 (09:51→21:36)
[2020-08-18] MEDS: Haloperidol Lactate 5 MG/ML VIAL IM ×2 (09:52→21:36)
[2020-08-18] MEDS: LORazepam 2 MG/ML VIAL 1 MG IM ×2 (09:52→21:43)
--- NOTE | 2020-08-18 15:33 | HO.PSYCHPN ---
Subjective Subjective Date of Service: 08/18/20 Reason For Visit: aggression Subjective Notes: Section 8 Interim History: Pt reports team continues to be imposters and she continues to refuse PO medications. However, pt observed today having a conversation on the telephone where she was well engaged, smiling and laughing. Also visible in the common area this afternoon talking with the team. Appears at times with more affect and improved mood. Pt has no current interest in treatment. She is dismissive of all team members and interventions. Medication Compliance: Yes (needing IM dosing) Side effects from medications: No Attending Groups: No Review of Systems Review of Systems Yes Unobtainable due to mental status Reports behavioral changes and Reports memory loss Psychiatric: Reports behavioral changes, Reports auditory hallucinations, Reports hopelessness, Reports irritability, Reports anhedonia, Reports memory loss, Reports mood swings, Reports paranoia, Reports hallucinations and Reports suicidal ideation Mental Status Exam Mental Status Exam Patient Appearance: Disheveled and Unkempt Patient Orientation: Person Level of Consciousness: Awake and Alert Patient Behavior: Guarded, Suspicious, Anxious, Resistive to Care, Avoidant, Distractible, Confused, Isolative and Uncooperative Mood Description: Suspicious, Withdrawn, Constricted, Angry and Flat Affect Description: Flat Patient Cognition Impaired: Yes Ability to Follow Directions: Fair Speech Pattern: Impoverished, Spontaneous Speech and Soft-Spoken Memory Description: Remote Impaired and Episodic Impaired Hallucinations: Auditory Delusions: Being Controlled, Paranoid Ideation and Present Perceptual Disturbances: Derealization Thought Process: Illogical, Distracted, Evasive and Confusion Thought Content: positive for [place]overty of Content, positive for Thought Blocking and positive for Suicidal Ideation Depressive Symptoms: Loss of Int. in Activity, Feelings of Worthlessness, Hopelessness, Isolating-Friends/Family, Unhappiness, Thoughts of /Suicide, Low Self Esteem and Difficulty Concentrating Judgement: Poor Diagnostics Vital Signs (24Hr): Vital Signs - 24 hr 08/18/20 06:30 Respiratory Rate 20 Body Mass Index 0.0 Labs Results: 07/31/20 13:55 07/31/20 13:55 Medications Medications Current Medications Generic Name Dose Route Start Last Admin Trade Name Freq PRN Reason Stop Dose Admin Al Hydroxide/Mg Hydroxide 30 ml 07/22/20 16:17 Magnesium Hydrox/Alum Hydrox 30 Ml Oral.Susp PO Q6H PRN Heartburn/Nausea Albuterol Sulfate 2 puff 07/22/20 17:54 Albuterol Sulfate 90 Mcg 8 Gm Inhaler INHALE Q4H PRN Shortness Of Breath Or Wheezing Benztropine Mesylate 1 mg 08/05/20 21:00 08/18/20 09:50 Benztropine Mesylate 1 Mg Tablet PO Not Given BID [facility] Benztropine Mesylate 1 mg 08/17/20 10:08 08/18/20 09:51 Benztropine Mesylate 2 Mg/2 Ml Vial IM 1 mg Q6H PRN Administration Extrapyramidal Effects Haloperidol 5 mg 08/16/20 21:00 08/18/20 09:50 Haloperidol 5 Mg Tablet PO Not Given BID [facility] Haloperidol 5 mg 08/16/20 19:09 Haloperidol 5 Mg Tablet PO BID PRN Psychosis Haloperidol Lactate 5 mg 08/16/20 19:26 08/18/20 09:52 Haloperidol Lactate 5 Mg/Ml Vial IM 5 mg BID PRN Administration if pt refuses po per court order Lisinopril 5 mg 07/23/20 09:00 08/18/20 09:50 Lisinopril 5 Mg Tablet PO Not Given DAILY [facility] Protocol Lorazepam 1 mg 08/16/20 16:04 Lorazepam 1 Mg Tablet PO Q4H PRN agiation Lorazepam 1 mg 08/16/20 21:00 08/18/20 09:50 Lorazepam 1 Mg Tablet PO Not Given BID [facility] Lorazepam 1 mg 08/16/20 19:29 08/18/20 09:52 Lorazepam 2 Mg/Ml Vial IM 1 mg BID PRN Administration if pt refuses po per court ord Magnesium Hydroxide 30 ml 07/22/20 16:17 Milk Of Magnesia 30 Ml Oral.Susp PO DAILY PRN Constipation Melatonin 3 mg 07/22/20 17:58 Melatonin 3 Mg Tablet PO BEDTIME PRN Insomnia Metoprolol Tartrate 25 mg 07/22/20 21:00 08/18/20 09:50 Metoprolol Tartrate 25 Mg Tablet PO Not Given BID [facility] Protocol Metronidazole 1 appl 08/14/20 09:00 08/18/20 09:51 Metronidazole 0.75 % Gel 45 Gm Tube TOPICAL Not Given BID [facility] Multivitamins/Vitamin C 1 tab 07/23/20 09:00 08/18/20 09:51 Multivitamin Tablet PO Not Given DAILY [facility] Nystatin 1 appl 07/22/20 21:00 08/18/20 09:51 Nystatin Powder 15 Gm Bottle TOPICAL Not Given BID [facility] Protocol Senna 17.2 mg 07/22/20 17:59 Sennosides 8.6 Mg Tablet PO DAILY PRN Constipation Trazodone HCl 50 mg 07/22/20 16:17 Trazodone Hcl 50 Mg Tablet PO BEDTIME PRN Insomnia Allergies Allergies Allergy/AdvReac Type Severity Reaction Status Date / Time acetaminophen [From TYLENOL] Allergy Intermediate HIVES Verified 07/22/20 02:13 meperidine [From Demerol] Allergy Unknown Verified 07/22/20 02:10 Assessment & Plan Assessment & Plan (1) Schizoaffective disorder: Status: Acute Code(s): F25.9 - Schizoaffective disorder, unspecified Greater than 50% of the session was spent on counseling and/or coordination of care Reason for contiued inpatient stay Substantial Risk for: harm to self, harm to others, inability to function and rapid decompensation
[2020-08-19 08:59] VITALS: BP 121/67; PULSE 93
[2020-08-19] MEDS: HaloperidoL 5 MG TABLET PO ×2 (08:59→22:26)
[2020-08-19] MEDS: Metoprolol Tartrate 25 MG TABLET PO (08:59)
[2020-08-19] MEDS: Benztropine Mesylate 1 MG TABLET PO ×2 (08:59→22:26)
[2020-08-19] MEDS: LORazepam 1 MG TABLET PO ×2 (08:59→22:21)
[2020-08-19] MEDS: Multivitamin TABLET 1 TAB PO (08:59)
[2020-08-19] MEDS: Ibuprofen 400 MG TABLET PO (09:01)
[2020-08-19 10:00] VITALS: BP 121/67; PULSE 93; RESP 16; TEMP 36.4; O2SAT 96
--- NOTE | 2020-08-19 15:34 | HO.PSYCHPN ---
Subjective Subjective Date of Service: 08/19/20 Reason For Visit: aggression Subjective Notes: Section 8 Interim History: Pt demonstrating some improvement today with conversation, attention to ADL's and appearance. Alert, more engaged in her environment. Medication Compliance: Yes Side effects from medications: No Attending Groups: No Review of Systems Review of Systems Yes Unobtainable due to mental status Reports behavioral changes and Reports memory loss Psychiatric: Reports anxiety, Reports behavioral changes, Reports depression, Reports difficulty concentrating, Reports auditory hallucinations, Reports hopelessness, Reports irritability, Reports memory loss, Reports mood swings, Reports paranoia, Reports hallucinations and Reports suicidal ideation Mental Status Exam Mental Status Exam Patient Appearance: Well Grooomed Patient Orientation: Person Level of Consciousness: Alert Patient Behavior: Resistive to Care (some decrease in resistance) and Good Eye Contact Mood Description: Constricted Affect Description: Constricted Patient Cognition Impaired: Yes Ability to Follow Directions: Fair Speech Pattern: Spontaneous Speech Memory Description: Episodic Impaired Hallucinations: None Delusions: Present Thought Content: positive for [place], positive for Circumstantial, positive for Loose Associations and positive for Tangential Depressive Symptoms: Increased Irritability, Feelings of Worthlessness, Hopelessness, Isolating-Friends/Family, Unhappiness, Increased Fatigue, Thoughts of /Suicide, Low Self Esteem, Loss of Energy and Difficulty Concentrating Judgement: Fair Diagnostics Vital Signs (24Hr): Vital Signs - 24 hr 08/19/20 08:59 08/19/20 10:00 Temperature 97.5 F Pulse Rate 93 93 Respiratory Rate 16 Blood Pressure 121/67 121/67 Pulse Oximetry 96 Body Mass Index 0.0 Labs Results: 07/31/20 13:55 07/31/20 13:55 Medications Medications Current Medications Generic Name Dose Route Start Last Admin Trade Name Freq PRN Reason Stop Dose Admin Al Hydroxide/Mg Hydroxide 30 ml 07/22/20 16:17 Magnesium Hydrox/Alum Hydrox 30 Ml Oral.Susp PO Q6H PRN Heartburn/Nausea Albuterol Sulfate 2 puff 07/22/20 17:54 Albuterol Sulfate 90 Mcg 8 Gm Inhaler INHALE Q4H PRN Shortness Of Breath Or Wheezing Benztropine Mesylate 1 mg 08/05/20 21:00 08/19/20 08:59 Benztropine Mesylate 1 Mg Tablet PO 1 mg BID [facility] Administration Benztropine Mesylate 1 mg 08/17/20 10:08 08/18/20 21:36 Benztropine Mesylate 2 Mg/2 Ml Vial IM 1 mg Q6H PRN Administration Extrapyramidal Effects Haloperidol 5 mg 08/16/20 21:00 08/19/20 08:59 Haloperidol 5 Mg Tablet PO 5 mg BID [facility] Administration Haloperidol 5 mg 08/16/20 19:09 Haloperidol 5 Mg Tablet PO BID PRN Psychosis Haloperidol Lactate 5 mg 08/16/20 19:26 08/18/20 21:36 Haloperidol Lactate 5 Mg/Ml Vial IM 5 mg BID PRN Administration if pt refuses po per court order Ibuprofen 400 mg 08/18/20 20:19 08/19/20 09:01 Ibuprofen 400 Mg Tablet PO 400 mg Q6H PRN Administration Pain, Mild (Pain Scale 1-3) Lisinopril 5 mg 07/23/20 09:00 08/19/20 08:59 Lisinopril 5 Mg Tablet PO 5 mg DAILY [facility] Administration Protocol Lorazepam 1 mg 08/16/20 16:04 Lorazepam 1 Mg Tablet PO Q4H PRN agiation Lorazepam 1 mg 08/16/20 21:00 08/19/20 08:59 Lorazepam 1 Mg Tablet PO 1 mg BID [facility] Administration Lorazepam 1 mg 08/16/20 19:29 08/18/20 21:43 Lorazepam 2 Mg/Ml Vial IM 1 mg BID PRN Administration if pt refuses po per court ord Magnesium Hydroxide 30 ml 07/22/20 16:17 Milk Of Magnesia 30 Ml Oral.Susp PO DAILY PRN Constipation Melatonin 3 mg 07/22/20 17:58 Melatonin 3 Mg Tablet PO BEDTIME PRN Insomnia Metoprolol Tartrate 25 mg 07/22/20 21:00 08/19/20 08:59 Metoprolol Tartrate 25 Mg Tablet PO 25 mg BID [facility] Administration Protocol Metronidazole 1 appl 08/14/20 09:00 08/19/20 09:58 Metronidazole 0.75 % Gel 45 Gm Tube TOPICAL Not Given BID [facility] Multivitamins/Vitamin C 1 tab 07/23/20 09:00 08/19/20 08:59 Multivitamin Tablet PO 1 tab DAILY [facility] Administration Nystatin 1 appl 07/22/20 21:00 08/19/20 09:58 Nystatin Powder 15 Gm Bottle TOPICAL Not Given BID [facility] Protocol Senna 17.2 mg 07/22/20 17:59 Sennosides 8.6 Mg Tablet PO DAILY PRN Constipation Trazodone HCl 50 mg 07/22/20 16:17 Trazodone Hcl 50 Mg Tablet PO BEDTIME PRN Insomnia Allergies Allergies Allergy/AdvReac Type Severity Reaction Status Date / Time acetaminophen [From TYLENOL] Allergy Intermediate HIVES Verified 07/22/20 02:13 meperidine [From Demerol] Allergy Unknown Verified 07/22/20 02:10 Assessment & Plan Assessment & Plan (1) Schizoaffective disorder: Status: Acute Code(s): F25.9 - Schizoaffective disorder, unspecified Greater than 50% of the session was spent on counseling and/or coordination of care Reason for contiued inpatient stay Substantial Risk for: harm to self, harm to others, inability to function and rapid decompensation
--- NOTE | 2020-08-20 08:29 | P.PNPSI_ITS ---
Subjective Subjective Date of Service: 08/20/20 Reason For Visit: aggression Subjective Notes: Section 8 Interim History: Accepted PO medications with much encouragement from the team today. Less visable and interactive-confrontive of team-accusatory, belligerent Medication Compliance: Yes Side effects from medications: No Attending Groups: No Review of Systems Review of Systems Yes Unobtainable due to mental status Reports memory loss Psychiatric: Reports depression, Reports difficulty concentrating, Reports auditory hallucinations, Reports hopelessness, Reports irritability, Reports memory loss, Reports mood swings, Reports paranoia and Reports suicidal ideation Mental Status Exam Mental Status Exam Patient Appearance: Disheveled Patient Orientation: Person Level of Consciousness: Alert Patient Behavior: Guarded, Suspicious, Aggressive (verbally), Belligerent, Verbal Threats, Swearing, Resistive to Care, Avoidant, Fatigued, Distractible and Isolative Mood Description: Depressed and Angry Affect Description: Flat Patient Cognition Impaired: Yes Ability to Follow Directions: Good Speech Pattern: Impoverished and Spontaneous Speech Memory Description: Remote Impaired and Episodic Impaired Hallucinations: Auditory Delusions: Present Thought Process: Illogical, Distracted and Rumination Thought Content: positive for [place], positive for Circumstantial, positive for Perseveration and positive for Suicidal Ideation Depressive Symptoms: Increased Irritability, Feelings of Worthlessness, Significant Weight Gain, Hopelessness, Feelings of Guilt, Unhappiness, Increased Fatigue, Thoughts of /Suicide, Low Self Esteem, Loss of Energy and Difficulty Concentrating Abnormal Motor Activity Signs and Symptoms: Agitation Judgement: Poor Diagnostics Vital Signs (24Hr): Vital Signs - 24 hr 08/19/20 08:59 08/19/20 10:00 Temperature 97.5 F Pulse Rate 93 93 Respiratory Rate 16 Blood Pressure 121/67 121/67 Pulse Oximetry 96 Body Mass Index 0.0 Labs Results: 07/31/20 13:55 07/31/20 13:55 Medications Medications Current Medications Generic Name Dose Route Start Last Admin Trade Name Freq PRN Reason Stop Dose Admin Al Hydroxide/Mg Hydroxide 30 ml 07/22/20 16:17 Magnesium Hydrox/Alum Hydrox 30 Ml Oral.Susp PO Q6H PRN Heartburn/Nausea Albuterol Sulfate 2 puff 07/22/20 17:54 Albuterol Sulfate 90 Mcg 8 Gm Inhaler INHALE Q4H PRN Shortness Of Breath Or Wheezing Benztropine Mesylate 1 mg 08/05/20 21:00 08/19/20 22:26 Benztropine Mesylate 1 Mg Tablet PO 1 mg BID [facility] Administration Benztropine Mesylate 1 mg 08/17/20 10:08 08/18/20 21:36 Benztropine Mesylate 2 Mg/2 Ml Vial IM 1 mg Q6H PRN Administration Extrapyramidal Effects Haloperidol 5 mg 08/16/20 21:00 08/19/20 22:26 Haloperidol 5 Mg Tablet PO 5 mg BID [facility] Administration Haloperidol 5 mg 08/16/20 19:09 Haloperidol 5 Mg Tablet PO BID PRN Psychosis Haloperidol Lactate 5 mg 08/16/20 19:26 08/18/20 21:36 Haloperidol Lactate 5 Mg/Ml Vial IM 5 mg BID PRN Administration if pt refuses po per court order Ibuprofen 400 mg 08/18/20 20:19 08/19/20 09:01 Ibuprofen 400 Mg Tablet PO 400 mg Q6H PRN Administration Pain, Mild (Pain Scale 1-3) Lisinopril 5 mg 07/23/20 09:00 08/19/20 08:59 Lisinopril 5 Mg Tablet PO 5 mg DAILY [facility] Administration Protocol Lorazepam 1 mg 08/16/20 16:04 Lorazepam 1 Mg Tablet PO Q4H PRN agiation Lorazepam 1 mg 08/16/20 21:00 08/19/20 22:21 Lorazepam 1 Mg Tablet PO 1 mg BID [facility] Administration Lorazepam 1 mg 08/16/20 19:29 08/18/20 21:43 Lorazepam 2 Mg/Ml Vial IM 1 mg BID PRN Administration if pt refuses po per court ord Magnesium Hydroxide 30 ml 07/22/20 16:17 Milk Of Magnesia 30 Ml Oral.Susp PO DAILY PRN Constipation Melatonin 3 mg 07/22/20 17:58 Melatonin 3 Mg Tablet PO BEDTIME PRN Insomnia Metoprolol Tartrate 25 mg 07/22/20 21:00 08/19/20 22:29 Metoprolol Tartrate 25 Mg Tablet PO Not Given BID [facility] Protocol Metronidazole 1 appl 08/14/20 09:00 08/19/20 22:30 Metronidazole 0.75 % Gel 45 Gm Tube TOPICAL Not Given BID [facility] Multivitamins/Vitamin C 1 tab 07/23/20 09:00 08/19/20 08:59 Multivitamin Tablet PO 1 tab DAILY [facility] Administration Nystatin 1 appl 07/22/20 21:00 08/19/20 22:30 Nystatin Powder 15 Gm Bottle TOPICAL Not Given BID [facility] Protocol Senna 17.2 mg 07/22/20 17:59 Sennosides 8.6 Mg Tablet PO DAILY PRN Constipation Trazodone HCl 50 mg 07/22/20 16:17 Trazodone Hcl 50 Mg Tablet PO BEDTIME PRN Insomnia Allergies Allergies Allergy/AdvReac Type Severity Reaction Status Date / Time acetaminophen [From TYLENOL] Allergy Intermediate HIVES Verified 07/22/20 02:13 meperidine [From Demerol] Allergy Unknown Verified 07/22/20 02:10 Assessment & Plan Assessment & Plan (1) Schizoaffective disorder: Status: Acute Code(s): F25.9 - Schizoaffective disorder, unspecified Greater than 50% of the session was spent on counseling and/or coordination of care Reason for contiued inpatient stay Substantial Risk for: harm to self, harm to others, inability to function and rapid decompensation
[2020-08-20 10:36] VITALS: BP 121/74; PULSE 103
[2020-08-20] MEDS: Metoprolol Tartrate 25 MG TABLET PO (10:36)
[2020-08-20] MEDS: HaloperidoL 5 MG TABLET PO ×2 (10:37→20:31)
[2020-08-20 10:38] VITALS: BP 121/74; PULSE 103
[2020-08-20] MEDS: Multivitamin TABLET 1 TAB PO (10:38)
[2020-08-20] MEDS: Benztropine Mesylate 1 MG TABLET PO ×2 (10:38→20:31)
[2020-08-20] MEDS: LORazepam 1 MG TABLET PO ×2 (10:41→20:31)
[2020-08-21 06:00] VITALS: RESP 18
[2020-08-21] MEDS: HaloperidoL 5 MG TABLET PO ×2 (09:47→21:34)
[2020-08-21] MEDS: LORazepam 1 MG TABLET PO ×2 (09:48→21:34)
[2020-08-21] MEDS: Benztropine Mesylate 1 MG TABLET PO ×2 (09:50→21:34)
--- NOTE | 2020-08-21 17:17 | P.PNPSI_ITS ---
Subjective Subjective Date of Service: 08/21/20 Reason For Visit: psychosis Subjective Notes: Section 8 Interim History: Pt willing to talk with continuity writer today. Asks where she will go when well. She reports concerns about her [facility]-people were cleaning with chemicals-Clorox, Ammonia, Bleach-pt does not feel this is a healthy situation. 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 Also, states her daughter is a resident of her [facility] but going under another name. Also reports concern about night staff sleeping and feeling unprotected and overall inconsideration by staff and residents about the condition of the home which make her feel more unsafe. Adds she believes she is not allowed access to her entire check on a monthly basis, has had her driving license taken, her ID taken, is not allowed to grocery shop and fears that people of different races will harm her. Reports she feels safe on [address], is co mfortable with her room, diet and although she would like a private room, states she understands we only have a few . Is upset with room-mate leaving med cups on her blankets- but I am going to show her where we put the trash in a nice way . Medication Compliance: Yes Side effects from medications: No Attending Groups: No Review of Systems Review of Systems Yes all other systems are reviewed and are negative (pt denies-answered question s) Mental Status Exam Mental Status Exam Patient Appearance: Disheveled Patient Orientation: Person and Place Level of Consciousness: Alert Patient Behavior: Appropriate and Talkative Mood Description: Calm, Appropriate and Relaxed Affect Description: Calm Patient Cognition Impaired: Yes Ability to Follow Directions: Fair Speech Pattern: Spontaneous Speech and Soft-Spoken Memory Description: Remote Impaired and Episodic Impaired Hallucinations: None Delusions: Present Thought Process: Illogical Thought Content: positive for [place], positive for Perseveration and positive for Tangential Depressive Symptoms: Increased Anxiety and Increased Irritability Judgement: Fair Diagnostics Vital Signs (24Hr): Vital Signs - 24 hr 08/21/20 06:00 Respiratory Rate 18 Body Mass Index 0.0 Labs Results: 07/31/20 13:55 07/31/20 13:55 Medications Medications Current Medications Generic Name Dose Route Start Last Admin Trade Name Freq PRN Reason Stop Dose Admin Al Hydroxide/Mg Hydroxide 30 ml 07/22/20 16:17 Magnesium Hydrox/Alum Hydrox 30 Ml Oral.Susp PO Q6H PRN Heartburn/Nausea Albuterol Sulfate 2 puff 07/22/20 17:54 Albuterol Sulfate 90 Mcg 8 Gm Inhaler INHALE Q4H PRN Shortness Of Breath Or Wheezing Benztropine Mesylate 1 mg 08/05/20 21:00 08/21/20 09:50 Benztropine Mesylate 1 Mg Tablet PO 1 mg BID [facility] Administration Benztropine Mesylate 1 mg 08/17/20 10:08 08/18/20 21:36 Benztropine Mesylate 2 Mg/2 Ml Vial IM 1 mg Q6H PRN Administration Extrapyramidal Effects Haloperidol 5 mg 08/16/20 21:00 08/21/20 09:47 Haloperidol 5 Mg Tablet PO 5 mg BID [facility] Administration Haloperidol 5 mg 08/16/20 19:09 Haloperidol 5 Mg Tablet PO BID PRN Psychosis Haloperidol Lactate 5 mg 08/16/20 19:26 08/18/20 21:36 Haloperidol Lactate 5 Mg/Ml Vial IM 5 mg BID PRN Administration if pt refuses po per court order Ibuprofen 400 mg 08/18/20 20:19 08/19/20 09:01 Ibuprofen 400 Mg Tablet PO 400 mg Q6H PRN Administration Pain, Mild (Pain Scale 1-3) Lisinopril 5 mg 07/23/20 09:00 08/21/20 15:35 Lisinopril 5 Mg Tablet PO Not Given DAILY [facility] Protocol Lorazepam 1 mg 08/16/20 16:04 Lorazepam 1 Mg Tablet PO Q4H PRN agiation Lorazepam 1 mg 08/16/20 21:00 08/21/20 09:48 Lorazepam 1 Mg Tablet PO 1 mg BID [facility] Administration Lorazepam 1 mg 08/16/20 19:29 08/18/20 21:43 Lorazepam 2 Mg/Ml Vial IM 1 mg BID PRN Administration if pt refuses po per court ord Magnesium Hydroxide 30 ml 07/22/20 16:17 Milk Of Magnesia 30 Ml Oral.Susp PO DAILY PRN Constipation Melatonin 3 mg 07/22/20 17:58 Melatonin 3 Mg Tablet PO BEDTIME PRN Insomnia Metoprolol Tartrate 25 mg 07/22/20 21:00 08/21/20 15:36 Metoprolol Tartrate 25 Mg Tablet PO Not Given BID [facility] Protocol Metronidazole 1 appl 08/14/20 09:00 08/21/20 13:19 Metronidazole 0.75 % Gel 45 Gm Tube TOPICAL Not Given BID [facility] Multivitamins/Vitamin C 1 tab 07/23/20 09:00 08/21/20 15:36 Multivitamin Tablet PO Not Given DAILY [facility] Nystatin 1 appl 07/22/20 21:00 08/21/20 13:18 Nystatin Powder 15 Gm Bottle TOPICAL Not Given BID [facility] Protocol Senna 17.2 mg 07/22/20 17:59 Sennosides 8.6 Mg Tablet PO DAILY PRN Constipation Trazodone HCl 50 mg 07/22/20 16:17 Trazodone Hcl 50 Mg Tablet PO BEDTIME PRN Insomnia Allergies Allergies Allergy/AdvReac Type Severity Reaction Status Date / Time acetaminophen [From TYLENOL] Allergy Intermediate HIVES Verified 07/22/20 02:13 meperidine [From Demerol] Allergy Unknown Verified 07/22/20 02:10 Assessment & Plan Assessment & Plan (1) Schizoaffective disorder: Status: Acute Code(s): F25.9 - Schizoaffective disorder, unspecified Greater than 50% of the session was spent on counseling and/or coordination of care Reason for contiued inpatient stay Substantial Risk for: harm to self, inability to function and rapid decompensation
[2020-08-22 06:00] VITALS: BP 115/51; PULSE 90; RESP 16; TEMP 36.8; O2SAT 96
[2020-08-22] MEDS: HaloperidoL 5 MG TABLET PO ×2 (08:51→21:27)
[2020-08-22] MEDS: Benztropine Mesylate 1 MG TABLET PO (08:52)
[2020-08-22] MEDS: Multivitamin TABLET 1 TAB PO (08:52)
[2020-08-22] MEDS: LORazepam 1 MG TABLET PO (08:52)
[2020-08-22 08:55] VITALS: BP 110/51
[2020-08-22 08:56] VITALS: BP 110/51
--- NOTE | 2020-08-22 14:54 | P.PNPSI_ITS ---
Subjective Subjective Date of Service: 08/22/20 Reason For Visit: psychosis Subjective Notes: Section 8 Interim History: Quieter today. Nothing to talk about . States she feels OK. Asks about discharge, stating she has wasted much time here and needs to get herself back to work. EKG ordered. Medication Compliance: Yes Side effects from medications: No Attending Groups: No (Team reports she did attend one group yesterday.) Review of Systems Review of Systems Yes Unobtainable due to mental status Reports behavioral changes and Reports confusion Psychiatric: Reports anxiety, Reports behavioral changes, Reports confusion, Reports depression, Reports auditory hallucinations, Reports irritability and Reports suicidal ideation Mental Status Exam Mental Status Exam Patient Appearance: Fatigued and Disheveled Patient Orientation: Person and Place Level of Consciousness: Awake and Alert Patient Behavior: Guarded, Talkative, Suspicious, Fearful, Resistive to Care, Avoidant, Fatigued, Distractible, Isolative and Poor Eye Contact Mood Description: Suspicious, Withdrawn, Constricted, Depressed, Hostile, Anxious, Labile, Angry, Flat and Apprehensive Affect Description: Labile and Flat Patient Cognition Impaired: Yes Ability to Follow Directions: Good Speech Pattern: Spontaneous Speech, Soft-Spoken, Delayed and Long Pauses Memory Description: Remote Impaired and Episodic Impaired Hallucinations: Auditory Delusions: Paranoid Ideation and Present Thought Process: Illogical Thought Content: positive for Flight of Ideas, positive for [place], positive for Circumstantial, positive for Perseveration and positive for Suicidal Ideation Depressive Symptoms: Increased Irritability and Difficulty Sleeping Judgement: Fair Diagnostics Vital Signs (24Hr): Vital Signs - 24 hr 08/22/20 06:00 08/22/20 08:55 08/22/20 08:56 Temperature 98.2 F Pulse Rate 90 Respiratory Rate 16 Blood Pressure 115/51 L 110/51 L 110/51 L Pulse Oximetry 96 Body Mass Index 0.0 Labs Results: 07/31/20 13:55 07/31/20 13:55 Medications Medications Current Medications Generic Name Dose Route Start Last Admin Trade Name Freq PRN Reason Stop Dose Admin Al Hydroxide/Mg Hydroxide 30 ml 07/22/20 16:17 Magnesium Hydrox/Alum Hydrox 30 Ml Oral.Susp PO Q6H PRN Heartburn/Nausea Albuterol Sulfate 2 puff 07/22/20 17:54 Albuterol Sulfate 90 Mcg 8 Gm Inhaler INHALE Q4H PRN Shortness Of Breath Or Wheezing Benztropine Mesylate 1 mg 08/05/20 21:00 08/22/20 08:52 Benztropine Mesylate 1 Mg Tablet PO 1 mg BID [facility] Administration Benztropine Mesylate 1 mg 08/17/20 10:08 08/18/20 21:36 Benztropine Mesylate 2 Mg/2 Ml Vial IM 1 mg Q6H PRN Administration Extrapyramidal Effects Haloperidol 5 mg 08/16/20 21:00 08/22/20 08:51 Haloperidol 5 Mg Tablet PO 5 mg BID [facility] Administration Haloperidol 5 mg 08/16/20 19:09 Haloperidol 5 Mg Tablet PO BID PRN Psychosis Haloperidol Lactate 5 mg 08/16/20 19:26 08/18/20 21:36 Haloperidol Lactate 5 Mg/Ml Vial IM 5 mg BID PRN Administration if pt refuses po per court order Ibuprofen 400 mg 08/18/20 20:19 08/19/20 09:01 Ibuprofen 400 Mg Tablet PO 400 mg Q6H PRN Administration Pain, Mild (Pain Scale 1-3) Lisinopril 5 mg 07/23/20 09:00 08/22/20 08:56 Lisinopril 5 Mg Tablet PO Not Given DAILY [facility] Protocol Lorazepam 1 mg 08/16/20 16:04 Lorazepam 1 Mg Tablet PO Q4H PRN agiation Lorazepam 1 mg 08/16/20 21:00 08/22/20 08:52 Lorazepam 1 Mg Tablet PO 1 mg BID [facility] Administration Lorazepam 1 mg 08/16/20 19:29 08/18/20 21:43 Lorazepam 2 Mg/Ml Vial IM 1 mg BID PRN Administration if pt refuses po per court ord Magnesium Hydroxide 30 ml 07/22/20 16:17 Milk Of Magnesia 30 Ml Oral.Susp PO DAILY PRN Constipation Melatonin 3 mg 07/22/20 17:58 Melatonin 3 Mg Tablet PO BEDTIME PRN Insomnia Metoprolol Tartrate 25 mg 07/22/20 21:00 08/22/20 08:55 Metoprolol Tartrate 25 Mg Tablet PO Not Given BID [facility] Protocol Metronidazole 1 appl 08/14/20 09:00 08/22/20 08:55 Metronidazole 0.75 % Gel 45 Gm Tube TOPICAL Not Given BID [facility] Multivitamins/Vitamin C 1 tab 07/23/20 09:00 08/22/20 08:52 Multivitamin Tablet PO 1 tab DAILY [facility] Administration Nystatin 1 appl 07/22/20 21:00 08/22/20 08:56 Nystatin Powder 15 Gm Bottle TOPICAL Not Given BID [facility] Protocol Senna 17.2 mg 07/22/20 17:59 Sennosides 8.6 Mg Tablet PO DAILY PRN Constipation Trazodone HCl 50 mg 07/22/20 16:17 Trazodone Hcl 50 Mg Tablet PO BEDTIME PRN Insomnia Allergies Allergies Allergy/AdvReac Type Severity Reaction Status Date / Time acetaminophen [From TYLENOL] Allergy Intermediate HIVES Verified 07/22/20 02:13 meperidine [From Demerol] Allergy Unknown Verified 07/22/20 02:10 Assessment & Plan Assessment & Plan (1) Schizoaffective disorder: Status: Acute Code(s): F25.9 - Schizoaffective disorder, unspecified Greater than 50% of the session was spent on counseling and/or coordination of care Reason for contiued inpatient stay Substantial Risk for: harm to self, harm to others, inability to function and rapid decompensation
[2020-08-22 19:15] VITALS: BP 115/64; PULSE 94; TEMP 36.3
[2020-08-23] MEDS: Benztropine Mesylate 1 MG TABLET PO (10:33)
[2020-08-23] MEDS: LORazepam 1 MG TABLET PO ×2 (10:33→20:17)
[2020-08-23] MEDS: HaloperidoL 5 MG TABLET PO ×2 (10:34→20:18)
[2020-08-23] MEDS: Multivitamin TABLET 1 TAB PO (10:34)
--- NOTE | 2020-08-23 12:23 | P.PNPSI_ITS ---
Subjective Subjective Date of Service: 08/23/20 Reason For Visit: psychosis Diagnostics Vital Signs (24Hr): Vital Signs - 24 hr 08/22/20 19:15 Temperature 97.3 F Pulse Rate 94 Blood Pressure 115/64 Body Mass Index 0.0 Labs Results: 07/31/20 13:55 07/31/20 13:55 Medications Medications Current Medications Generic Name Dose Route Start Last Admin Trade Name Freq PRN Reason Stop Dose Admin Al Hydroxide/Mg Hydroxide 30 ml 07/22/20 16:17 Magnesium Hydrox/Alum Hydrox 30 Ml Oral.Susp PO Q6H PRN Heartburn/Nausea Albuterol Sulfate 2 puff 07/22/20 17:54 Albuterol Sulfate 90 Mcg 8 Gm Inhaler INHALE Q4H PRN Shortness Of Breath Or Wheezing Benztropine Mesylate 1 mg 08/05/20 21:00 08/23/20 10:33 Benztropine Mesylate 1 Mg Tablet PO 1 mg BID [facility] Administration Benztropine Mesylate 1 mg 08/17/20 10:08 08/18/20 21:36 Benztropine Mesylate 2 Mg/2 Ml Vial IM 1 mg Q6H PRN Administration Extrapyramidal Effects Haloperidol 5 mg 08/16/20 21:00 08/23/20 10:34 Haloperidol 5 Mg Tablet PO 5 mg BID [facility] Administration Haloperidol 5 mg 08/16/20 19:09 Haloperidol 5 Mg Tablet PO BID PRN Psychosis Haloperidol Lactate 5 mg 08/16/20 19:26 08/18/20 21:36 Haloperidol Lactate 5 Mg/Ml Vial IM 5 mg BID PRN Administration if pt refuses po per court order Ibuprofen 400 mg 08/18/20 20:19 08/19/20 09:01 Ibuprofen 400 Mg Tablet PO 400 mg Q6H PRN Administration Pain, Mild (Pain Scale 1-3) Lisinopril 5 mg 07/23/20 09:00 08/23/20 10:41 Lisinopril 5 Mg Tablet PO Not Given DAILY [facility] Protocol Lorazepam 1 mg 08/16/20 16:04 Lorazepam 1 Mg Tablet PO Q4H PRN agiation Lorazepam 1 mg 08/16/20 21:00 08/23/20 10:33 Lorazepam 1 Mg Tablet PO 1 mg BID [facility] Administration Lorazepam 1 mg 08/16/20 19:29 08/18/20 21:43 Lorazepam 2 Mg/Ml Vial IM 1 mg BID PRN Administration if pt refuses po per court ord Magnesium Hydroxide 30 ml 07/22/20 16:17 Milk Of Magnesia 30 Ml Oral.Susp PO DAILY PRN Constipation Melatonin 3 mg 07/22/20 17:58 Melatonin 3 Mg Tablet PO BEDTIME PRN Insomnia Metoprolol Tartrate 25 mg 07/22/20 21:00 08/23/20 10:40 Metoprolol Tartrate 25 Mg Tablet PO Not Given BID [facility] Protocol Metronidazole 1 appl 08/14/20 09:00 08/23/20 10:42 Metronidazole 0.75 % Gel 45 Gm Tube TOPICAL Not Given BID [facility] Multivitamins/Vitamin C 1 tab 07/23/20 09:00 08/23/20 10:34 Multivitamin Tablet PO 1 tab DAILY [facility] Administration Nystatin 1 appl 07/22/20 21:00 08/23/20 10:42 Nystatin Powder 15 Gm Bottle TOPICAL Not Given BID [facility] Protocol Senna 17.2 mg 07/22/20 17:59 Sennosides 8.6 Mg Tablet PO DAILY PRN Constipation Trazodone HCl 50 mg 07/22/20 16:17 Trazodone Hcl 50 Mg Tablet PO BEDTIME PRN Insomnia Allergies Allergies Allergy/AdvReac Type Severity Reaction Status Date / Time acetaminophen [From TYLENOL] Allergy Intermediate HIVES Verified 07/22/20 02:13 meperidine [From Demerol] Allergy Unknown Verified 07/22/20 02:10 Assessment & Plan Greater than 50% of the session was spent on counseling and/or coordination of care
--- NOTE | 2020-08-23 15:57 | HO.PSYCHPN ---
Subjective Subjective Date of Service: 08/23/20 Reason For Visit: psychosis Subjective Notes: Section 8 Interim History: Talkative and very tearful today about feeling depressed due to the loss of her partner. I miss Jhony. Declines antidepressant treatment, citing increased anger when this is prescribed. States she is aware how angry and mean she has been to team since admission. Crying-she adds that this is horrible- everyone is good to me here and I am hateful-I am so sorry. Pt is [facility] to her [facility]-discussed what treatment needs to occur prior to this. I think I am better. Reviewed with pt medical concerns- elevated triglycerides, elevated blood sugar, low Vitamin D. Pt declines treatment for triglycerides, blood sugar. Will allow Vit D supplement. Later in the day pt approached singer songwriter and said I feel good, I would like to leave today. Discussed with pt what treatment goals needed to be met prior to discharge. Encouraged pt to take PO meds. Medication Compliance: Intermittent (still needing IM dosing) Side effects from medications: No Attending Groups: No Review of Systems Review of Systems Yes all other systems are reviewed and are negative (Pt denies today-hip is sore) and Other Musculoskeletal: Reports other (R hip pain-chronic she states) Reports behavioral changes Psychiatric: Reports anxiety, Reports behavioral changes, Reports depression, Reports difficulty concentrating, Reports hopelessness, Reports irritability, Reports anhedonia, Reports mood swings and Reports suicidal ideation (denies-discussed wanting to work in the [employer] [facility] [facility] cafe. Hx of work with [employer]) Mental Status Exam Mental Status Exam Patient Appearance: Disheveled Patient Orientation: Person and Place Level of Consciousness: Alert Patient Behavior: Appropriate, Talkative, Anxious, Resistive to Care, Fatigued, Distractible, Confused, Isolative, Good Eye Contact and Crying Mood Description: Withdrawn and Depressed Affect Description: Flat Patient Cognition Impaired: Yes Ability to Follow Directions: Fair Speech Pattern: Appropriate, Spontaneous Speech and Soft-Spoken Memory Description: Remote Impaired and Episodic Impaired Hallucinations: None Delusions: Present Thought Process: Illogical, Distracted and Rumination Thought Content: positive for [place], positive for Circumstantial and positive for Perseveration Depressive Symptoms: Increased Anxiety, Hopelessness and Thoughts of /Suicide (denies) Judgement: Poor Diagnostics Vital Signs (24Hr): Vital Signs - 24 hr 08/22/20 19:15 Temperature 97.3 F Pulse Rate 94 Blood Pressure 115/64 Body Mass Index 0.0 Labs Results: 07/31/20 13:55 07/31/20 13:55 Medications Medications Current Medications Generic Name Dose Route Start Last Admin Trade Name Freq PRN Reason Stop Dose Admin Al Hydroxide/Mg Hydroxide 30 ml 07/22/20 16:17 Magnesium Hydrox/Alum Hydrox 30 Ml Oral.Susp PO Q6H PRN Heartburn/Nausea Albuterol Sulfate 2 puff 07/22/20 17:54 Albuterol Sulfate 90 Mcg 8 Gm Inhaler INHALE Q4H PRN Shortness Of Breath Or Wheezing Benztropine Mesylate 1 mg 08/05/20 21:00 08/23/20 10:33 Benztropine Mesylate 1 Mg Tablet PO 1 mg BID [facility] Administration Benztropine Mesylate 1 mg 08/17/20 10:08 08/18/20 21:36 Benztropine Mesylate 2 Mg/2 Ml Vial IM 1 mg Q6H PRN Administration Extrapyramidal Effects Haloperidol 5 mg 08/16/20 21:00 08/23/20 10:34 Haloperidol 5 Mg Tablet PO 5 mg BID [facility] Administration Haloperidol 5 mg 08/16/20 19:09 Haloperidol 5 Mg Tablet PO BID PRN Psychosis Haloperidol Lactate 5 mg 08/16/20 19:26 08/18/20 21:36 Haloperidol Lactate 5 Mg/Ml Vial IM 5 mg BID PRN Administration if pt refuses po per court order Ibuprofen 400 mg 08/18/20 20:19 08/19/20 09:01 Ibuprofen 400 Mg Tablet PO 400 mg Q6H PRN Administration Pain, Mild (Pain Scale 1-3) Lisinopril 5 mg 07/23/20 09:00 08/23/20 10:41 Lisinopril 5 Mg Tablet PO Not Given DAILY [facility] Protocol Lorazepam 1 mg 08/16/20 16:04 Lorazepam 1 Mg Tablet PO Q4H PRN agiation Lorazepam 1 mg 08/16/20 21:00 08/23/20 10:33 Lorazepam 1 Mg Tablet PO 1 mg BID [facility] Administration Lorazepam 1 mg 08/16/20 19:29 08/18/20 21:43 Lorazepam 2 Mg/Ml Vial IM 1 mg BID PRN Administration if pt refuses po per court ord Magnesium Hydroxide 30 ml 07/22/20 16:17 Milk Of Magnesia 30 Ml Oral.Susp PO DAILY PRN Constipation Melatonin 3 mg 07/22/20 17:58 Melatonin 3 Mg Tablet PO BEDTIME PRN Insomnia Metoprolol Tartrate 25 mg 07/22/20 21:00 08/23/20 10:40 Metoprolol Tartrate 25 Mg Tablet PO Not Given BID [facility] Protocol Metronidazole 1 appl 08/14/20 09:00 08/23/20 10:42 Metronidazole 0.75 % Gel 45 Gm Tube TOPICAL Not Given BID [facility] Multivitamins/Vitamin C 1 tab 07/23/20 09:00 08/23/20 10:34 Multivitamin Tablet PO 1 tab DAILY [facility] Administration Nystatin 1 appl 07/22/20 21:00 08/23/20 10:42 Nystatin Powder 15 Gm Bottle TOPICAL Not Given BID [facility] Protocol Senna 17.2 mg 07/22/20 17:59 Sennosides 8.6 Mg Tablet PO DAILY PRN Constipation Trazodone HCl 50 mg 07/22/20 16:17 Trazodone Hcl 50 Mg Tablet PO BEDTIME PRN Insomnia Allergies Allergies Allergy/AdvReac Type Severity Reaction Status Date / Time acetaminophen [From TYLENOL] Allergy Intermediate HIVES Verified 07/22/20 02:13 meperidine [From Demerol] Allergy Unknown Verified 07/22/20 02:10 Assessment & Plan Assessment & Plan (1) Schizoaffective disorder: Status: Acute Code(s): F25.9 - Schizoaffective disorder, unspecified Greater than 50% of the session was spent on counseling and/or coordination of care Reason for contiued inpatient stay Substantial Risk for: harm to self, harm to others, inability to function and rapid decompensation
[2020-08-24] MEDS: Multivitamin TABLET 1 TAB PO (10:26)
[2020-08-24] MEDS: HaloperidoL 5 MG TABLET PO ×2 (10:26→20:31)
[2020-08-24] MEDS: Benztropine Mesylate 1 MG TABLET PO (10:28)
[2020-08-24] MEDS: LORazepam 1 MG TABLET PO ×2 (10:29→20:31)
--- NOTE | 2020-08-24 19:44 | P.PNPSI_ITS ---
Subjective Subjective Date of Service: 08/24/20 Reason For Visit: psychosis Subjective Notes: Section 8 Interim History: Pt appears slightly less guarded and less paranoid. She agreed to talk with this creative services writer, which in the past she had refused. She reports sleeping and eating well. She denies SI/HI. She continues to present with cap gras delusions thinking that staff in unit are not who they say they are, including questioning if nurses are true license RN. She has received IM, refusing oral. She continues to isolate in room, minimally interactive with peers or staff. Medication Compliance: Yes Side effects from medications: No Attending Groups: No Review of Systems Review of Systems Yes all other systems are reviewed and are negative (Pt denies today-hip is sore), Unobtainable due to mental status and Other Musculoskeletal: Reports other (R hip pain-chronic she states) Reports behavioral changes and Reports confusion Psychiatric: Reports abnormal sleep pattern, Reports anxiety, Reports behavioral changes, Reports change in appetite, Reports confusion, Reports depression, Reports difficulty concentrating, Reports auditory hallucinations, Reports hopel essness, Reports anhedonia, Reports mood swings, Reports paranoia, Reports visual hallucinations, Reports hallucinations, Reports homicidal ideation and Reports suicidal ideation (denies-discussed wanting to work in the [employer] cafe. Hx of work with [employer]) Mental Status Exam Mental Status Exam Narrative: Appearance: casually groomed, fair hygiene, in NAD Behavior: less guarded, minimal eye contact. Psychomotor: no agitation or retardation noted Speech: clear, slowed rate/rhythm/volume, minimally spontaneous TP: single word answers TC: cap gras delusions, paranoid delusions, Mood: okay Affect:constricted SI:denies HI:denies AH/VH:appears to be responding to internal stimuli Delusions:paranoid, cap gras. Insight/judgment:impaired x 2. Memory/cog: alert, impaired secondary to psychiatric symptoms. Diagnostics Vital Signs (24Hr): Body Mass Index 0.0 Labs Results: 07/31/20 13:55 07/31/20 13:55 Medications Medications Current Medications Generic Name Dose Route Start Last Admin Trade Name Freq PRN Reason Stop Dose Admin Al Hydroxide/Mg Hydroxide 30 ml 07/22/20 16:17 Magnesium Hydrox/Alum Hydrox 30 Ml Oral.Susp PO Q6H PRN Heartburn/Nausea Albuterol Sulfate 2 puff 07/22/20 17:54 Albuterol Sulfate 90 Mcg 8 Gm Inhaler INHALE Q4H PRN Shortness Of Breath Or Wheezing Benztropine Mesylate 1 mg 08/05/20 21:00 08/24/20 10:28 Benztropine Mesylate 1 Mg Tablet PO 1 mg BID [facility] Administration Benztropine Mesylate 1 mg 08/17/20 10:08 08/18/20 21:36 Benztropine Mesylate 2 Mg/2 Ml Vial IM 1 mg Q6H PRN Administration Extrapyramidal Effects Haloperidol 5 mg 08/16/20 21:00 08/24/20 10:26 Haloperidol 5 Mg Tablet PO 5 mg BID [facility] Administration Haloperidol 5 mg 08/16/20 19:09 Haloperidol 5 Mg Tablet PO BID PRN Psychosis Haloperidol Lactate 5 mg 08/16/20 19:26 08/18/20 21:36 Haloperidol Lactate 5 Mg/Ml Vial IM 5 mg BID PRN Administration if pt refuses po per court order Ibuprofen 400 mg 08/18/20 20:19 08/19/20 09:01 Ibuprofen 400 Mg Tablet PO 400 mg Q6H PRN Administration Pain, Mild (Pain Scale 1-3) Lisinopril 5 mg 07/23/20 09:00 08/24/20 10:25 Lisinopril 5 Mg Tablet PO Not Given DAILY [facility] Protocol Lorazepam 1 mg 08/16/20 16:04 Lorazepam 1 Mg Tablet PO Q4H PRN agiation Lorazepam 1 mg 08/16/20 21:00 08/24/20 10:29 Lorazepam 1 Mg Tablet PO 1 mg BID [facility] Administration Lorazepam 1 mg 08/16/20 19:29 08/18/20 21:43 Lorazepam 2 Mg/Ml Vial IM 1 mg BID PRN Administration if pt refuses po per court ord Magnesium Hydroxide 30 ml 07/22/20 16:17 Milk Of Magnesia 30 Ml Oral.Susp PO DAILY PRN Constipation Melatonin 3 mg 07/22/20 17:58 Melatonin 3 Mg Tablet PO BEDTIME PRN Insomnia Metoprolol Tartrate 25 mg 07/22/20 21:00 08/24/20 10:24 Metoprolol Tartrate 25 Mg Tablet PO Not Given BID [facility] Protocol Metronidazole 1 appl 08/14/20 09:00 08/24/20 10:24 Metronidazole 0.75 % Gel 45 Gm Tube TOPICAL Not Given BID [facility] Multivitamins/Vitamin C 1 tab 07/23/20 09:00 08/24/20 10:26 Multivitamin Tablet PO 1 tab DAILY [facility] Administration Nystatin 1 appl 07/22/20 21:00 08/24/20 10:24 Nystatin Powder 15 Gm Bottle TOPICAL Not Given BID [facility] Protocol Senna 17.2 mg 07/22/20 17:59 Sennosides 8.6 Mg Tablet PO DAILY PRN Constipation Trazodone HCl 50 mg 07/22/20 16:17 Trazodone Hcl 50 Mg Tablet PO BEDTIME PRN Insomnia Allergies Allergies Allergy/AdvReac Type Severity Reaction Status Date / Time acetaminophen [From TYLENOL] Allergy Intermediate HIVES Verified 07/22/20 02:13 meperidine [From Demerol] Allergy Unknown Verified 07/22/20 02:10 Assessment & Plan Assessment & Plan (1) Schizoaffective disorder: Status: Acute Code(s): F25.9 - Schizoaffective disorder, unspecified Assessment and Plan: Continue current medications -Change of regime, Zyprexa to Haldol. Observe for changes, SE, improvement. Greater than 50% of the session was spent on counseling and/or coordination of care Reason for contiued inpatient stay Substantial Risk for: inability to function
--- NOTE | 2020-08-25 | ECG_ITS ---
Test Reason : MED CHECK Blood Pressure : / mmHG Vent. Rate : 142 BPM Atrial Rate : 142 BPM P-R Int : 132 ms QRS Dur : 072 ms QT Int : 270 ms P-R-T Axes : 071 009 070 degrees QTc Int : 415 ms Poor data quality Sinus tachycardia Nonspecific ST and T wave abnormality No previous ECGs available Referred By: Carolin Reyes Electronically Signed By:Christopher Watts
[2020-08-25] MEDS: Ibuprofen 400 MG TABLET PO ×2 (06:29→22:55)
[2020-08-25] MEDS: LORazepam 1 MG TABLET PO (09:46)
[2020-08-25] MEDS: Benztropine Mesylate 1 MG TABLET PO (09:46)
[2020-08-25] MEDS: Multivitamin TABLET 1 TAB PO (09:46)
[2020-08-25] MEDS: HaloperidoL 5 MG TABLET PO (09:46)
[2020-08-25] MEDS: metroNIDAZOLE 0.75 % Gel 45 GM TUBE 1 APPL TOPICAL (09:57)
[2020-08-25] MEDS: Nystatin Powder 15 GM BOTTLE 1 APPL TOPICAL (09:57)
--- NOTE | 2020-08-25 12:44 | P.PNPSI_ITS ---
Subjective Subjective Date of Service: 08/25/20 Reason For Visit: psychosis Subjective Notes: Section 8 Interim History: Isolative today. Responsive to discussion. Focus is on discharge- now, when, where ? Pt still believes that we are all imposters-when asked why she thought this and what would be the gain from it she replied, I have not figured this out yet. Pt reports sleep and appetite are intact She has chronic hip pain. She denies SI but I miss Jhony . She presents an ambivalent stance on some aspects of her health care when asked. Medication Compliance: Yes Side effects from medications: No Attending Groups: No Review of Systems Musculoskeletal: Reports other (hip pain that is chronic) Mental Status Exam Mental Status Exam Patient Appearance: Disheveled and Unkempt Patient Orientation: Person, Place (hospital but it is not real) and Situation (I am not committed.) Level of Consciousness: Alert Patient Behavior: Appropriate, Suspicious, Resistive to Care, Avoidant, Fatigued, Distractible, Isolative and Good Eye Contact Mood Description: Constricted and Depressed Affect Description: Constricted Patient Cognition Impaired: Yes Ability to Follow Directions: Good Speech Pattern: Spontaneous Speech and Soft-Spoken Memory Description: Remote Impaired and Episodic Impaired Hallucinations: None Delusions: Being Controlled, Paranoid Ideation and Present Thought Process: Disoriented, Illogical, Distracted and Rumination Thought Content: positive for Disoriented, positive for Gibbs, positive for Circumstantial, positive for Perseveration and positive for Suicidal Ideation ( denies) Depressive Symptoms: Increased Irritability, Loss of Int. in Activity, Feelings of Worthlessness, Hopelessness, Isolating-Friends/Family, Unhappiness, Increased Fatigue, Low Self Esteem and Difficulty Concentrating Judgement: Poor Diagnostics Vital Signs (24Hr): Body Mass Index 0.0 Labs Results: 07/31/20 13:55 07/31/20 13:55 Medications Medications Current Medications Generic Name Dose Route Start Last Admin Trade Name Freq PRN Reason Stop Dose Admin Al Hydroxide/Mg Hydroxide 30 ml 07/22/20 16:17 Magnesium Hydrox/Alum Hydrox 30 Ml Oral.Susp PO Q6H PRN Heartburn/Nausea Albuterol Sulfate 2 puff 07/22/20 17:54 Albuterol Sulfate 90 Mcg 8 Gm Inhaler INHALE Q4H PRN Shortness Of Breath Or Wheezing Benztropine Mesylate 1 mg 08/05/20 21:00 08/25/20 09:46 Benztropine Mesylate 1 Mg Tablet PO 1 mg BID LOBITO Administration Benztropine Mesylate 1 mg 08/17/20 10:08 08/18/20 21:36 Benztropine Mesylate 2 Mg/2 Ml Vial IM 1 mg Q6H PRN Administration Extrapyramidal Effects Haloperidol 5 mg 08/16/20 21:00 08/25/20 09:46 Haloperidol 5 Mg Tablet PO 5 mg BID LOBITO Administration Haloperidol 5 mg 08/16/20 19:09 Haloperidol 5 Mg Tablet PO BID PRN Psychosis Haloperidol Lactate 5 mg 08/16/20 19:26 08/18/20 21:36 Haloperidol Lactate 5 Mg/Ml Vial IM 5 mg BID PRN Administration if pt refuses po per court order Ibuprofen 400 mg 08/18/20 20:19 08/25/20 06:29 Ibuprofen 400 Mg Tablet PO 400 mg Q6H PRN Administration Pain, Mild (Pain Scale 1-3) Lisinopril 5 mg 07/23/20 09:00 08/25/20 09:56 Lisinopril 5 Mg Tablet PO Not Given DAILY [facility] Protocol Lorazepam 1 mg 08/16/20 16:04 Lorazepam 1 Mg Tablet PO Q4H PRN agiation Lorazepam 1 mg 08/16/20 21:00 08/25/20 09:46 Lorazepam 1 Mg Tablet PO 1 mg BID LOBITO Administration Lorazepam 1 mg 08/16/20 19:29 08/18/20 21:43 Lorazepam 2 Mg/Ml Vial IM 1 mg BID PRN Administration if pt refuses po per court ord Magnesium Hydroxide 30 ml 07/22/20 16:17 Milk Of Magnesia 30 Ml Oral.Susp PO DAILY PRN Constipation Melatonin 3 mg 07/22/20 17:58 Melatonin 3 Mg Tablet PO BEDTIME PRN Insomnia Metoprolol Tartrate 25 mg 07/22/20 21:00 08/25/20 09:56 Metoprolol Tartrate 25 Mg Tablet PO Not Given BID [facility] Protocol Metronidazole 1 appl 08/14/20 09:00 08/25/20 09:57 Metronidazole 0.75 % Gel 45 Gm Tube TOPICAL 1 appl BID LOBITO Administration Multivitamins/Vitamin C 1 tab 07/23/20 09:00 08/25/20 09:46 Multivitamin Tablet PO 1 tab DAILY [facility] Administration Nystatin 1 appl 07/22/20 21:00 08/25/20 09:57 Nystatin Powder 15 Gm Bottle TOPICAL 1 appl BID LOB[facility] Administration Protocol Senna 17.2 mg 07/22/20 17:59 Sennosides 8.6 Mg Tablet PO DAILY PRN Constipation Trazodone HCl 50 mg 07/22/20 16:17 Trazodone Hcl 50 Mg Tablet PO BEDTIME PRN Insomnia Allergies Allergies Allergy/AdvReac Type Severity Reaction Status Date / Time acetaminophen [From TYLENOL] Allergy Intermediate HIVES Verified 07/22/20 02:13 meperidine [From Demerol] Allergy Unknown Verified 07/22/20 02:10 Assessment & Plan Assessment & Plan (1) Schizoaffective disorder: Status: Acute Code(s): F25.9 - Schizoaffective disorder, unspecified Assessment and Plan: Pt is improving-continue current regime EKG ordered today. Greater than 50% of the session was spent on counseling and/or coordination of care Reason for contiued inpatient stay Substantial Risk for: harm to self, harm to others, inability to function and rapid decompensation
[2020-08-25] MEDS: LORazepam 2 MG/ML VIAL 1 MG IM (20:56)
[2020-08-25] MEDS: Haloperidol Lactate 5 MG/ML VIAL IM (20:56)
[2020-08-25 21:15] LABS: Alanine Aminotransferase 29 U/L (0-31); Albumin Level 3.9 g/dL (3.5-5.0); Alkaline Phosphatase 109 U/L (39-117); Anion Gap 15 (12-20); Aspartate Amino Transferase 20 U/L (5-31); Bilirubin Total 0.3 mg/dL (0.0-1.0); Blood Urea Nitrogen 13 mg/dL (9-16); Calcium 8.9 mg/dL (8.4-10.2); Carbon Dioxide 26 mmol/L (22-29); Chloride 104 mmol/L (96-108); Estimated Glomerular Filt Rate > 60; Glucose Random 186 mg/dL (60-115); Sodium 140 mmol/L (135-145); Total Protein 6.3 g/dL (6.5-8.0)
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
--- NOTE | 2020-08-26 00:42 | PC.NURSE ---
MD Dr Mckinney ordered an ekg this evening, however given that pt had already had an ekg and needed to be held down earlier in the day, and in addition needed so for labs, this senior technical writer spoke with provider iron launder operator Dr Matt Shipley and it was decided that another ekg would not be possible to be done at this time given the mental status of the pt this evening and the further distress it would cause
[2020-08-26] MEDS: Ibuprofen 400 MG TABLET PO (01:12)
[2020-08-26 06:00] VITALS: RESP 18
[2020-08-26] MEDS: LORazepam 1 MG TABLET PO ×2 (09:26→20:40)
[2020-08-26] MEDS: Multivitamin TABLET 1 TAB PO (09:34)
--- NOTE | 2020-08-26 10:45 | PM.EVENT ---
Event Note Date of Service: 08/25/20 Event Note: Ask to eval for increase QTc. I went up to see patient who didn't want to be evaluated. ECG reviewed, no prior ECG. QTc is 526. There is no report of syncope, metabolic labs K, mag requested. Spoke to Psychiatrist..that likely cause of increase QTc is Psychotropic and recommend review of meds and change to alternative meds, understanding that this patient is quite challenging to manage without Psychotropics. I was told a cardiology consultation had been requested as. Also reqquest repeat ECG for 08/26
[2020-08-26] MEDS: Ibuprofen 800 MG TABLET PO ×2 (13:45→21:43)
--- NOTE | 2020-08-26 15:59 | PC.NURSE ---
Pt agreeable to have he Right upper arm X-Rayed. Results reported to Dr Jacques .Order for Ortho consult received and placed in computer system. Pt received 800mg of motrin with good effect.
--- NOTE | 2020-08-26 15:59 | PM.CNCAR ---
History of Present Illness History of Present Illness Date of Service: 08/26/20 Requesting physician: Carolin Reyes Chief complaint: psychosis, prolonged QT Narrative: 50-year-old female with background history of hypertension obesity use presenting with psychosis. She is in the inpatient psych unit. She had an EKG performed which showed at QTC of 526 milliseconds. The EKG has a lot of artifact on it specially in the lateral leads. Discussing with her she has right shoulder pains. She is saying she fell and hit her shoulder. She denies any chest pain or shortness of breath otherwise. No dizziness or syncope episodes. [facility] Past Medical History Medical History (Updated 08/26/20 @ 18:07 by Christopher Watts MD) Hypertension Obesity Papanicolaou smear for cervical cancer screening Rosacea, acne Schizo affective schizophrenia Schizoaffective disorder Social History Social History Household Members: Other Household Members Other:: Ivis, Meño, Samia, Jhony Housing: Other Do you presently have visiting nurse or other home services: No Alcohol intake: unknown Smoking Status: Unknown if ever smoked Smoked in Last 30 Days: No Patient Interested in Nicotine Replacement: No Patient Given Instructions on How to Stop Smoking: No (Non smoker) Date Education Initiated: 07/22/20 Second Hand Smoke Exposure: No Use of substances other than those prescribed or required for medical reasons: No Substance Use Type Other:: Denies drug use Last Used Substance Other:: When I was real young, just weed . Currently Displaying Signs/Symptoms of Drug Intoxication Withdrawal: No Any prior treatment program specific to substance use: No Have you been hit, kicked, punched, or otherwise hurt by someone within the past year? If so, by whom?: No Do you feel safe in your current relationship?: No Current Relationship Is there a partner from a previous relationship who is making you feel unsafe now?: No Spiritual Healthcare Practices: Refused to answer [facility] Practices: Refused to answer Cultural Healthcare Practices: Refused to answer Advance Directives: No Advance Directives Information Provided: Yes Do you have thoughts of harming others: None Do you have a plan to hurt others: No Plan service: No Sexual orientation: Straight/Heterosexual Meds Allergies Allergy/AdvReac Type Severity Reaction Status Date / Time acetaminophen [From TYLENOL] Allergy Intermediate HIVES Verified 07/22/20 02:13 meperidine [From Demerol] Allergy Unknown Verified 07/22/20 02:10 Active Medications: Current Medications Generic Name Dose Route Start Last Admin Trade Name Freq PRN Reason Stop Dose Admin Al Hydroxide/Mg Hydroxide 30 ml 07/22/20 16:17 Magnesium Hydrox/Alum Hydrox 30 Ml Oral.Susp PO Q6H PRN Heartburn/Nausea Haloperidol 5 mg 08/16/20 19:09 Haloperidol 5 Mg Tablet PO BID PRN Psychosis Haloperidol 5 mg 08/25/20 21:00 08/25/20 21:11 Haloperidol 5 Mg Tablet PO Not Given BEDTIME LOBITO Haloperidol Lactate 5 mg 08/25/20 17:11 08/25/20 20:56 Haloperidol Lactate 5 Mg/Ml Vial IM 5 mg BEDTIME PRN Administration if pt ref PO per court order Ibuprofen 800 mg 08/26/20 01:21 08/26/20 13:45 Ibuprofen 800 Mg Tablet PO 800 mg Q8H PRN Administration Pain, Moderate (Pain Scale 4-6 Lisinopril 5 mg 07/23/20 09:00 08/26/20 09:26 Lisinopril 5 Mg Tablet PO Not Given DAILY [facility] Protocol Lorazepam 1 mg 08/16/20 16:04 Lorazepam 1 Mg Tablet PO Q4H PRN agiation Lorazepam 1 mg 08/16/20 21:00 08/26/20 09:26 Lorazepam 1 Mg Tablet PO 1 mg BID LOBITO Administration Lorazepam 1 mg 08/16/20 19:29 08/25/20 20:56 Lorazepam 2 Mg/Ml Vial IM 1 mg BID PRN Administration if pt refuses po per court ord Magnesium Hydroxide 30 ml 07/22/20 16:17 Milk Of Magnesia 30 Ml Oral.Susp PO DAILY PRN Constipation Melatonin 3 mg 07/22/20 17:58 Melatonin 3 Mg Tablet PO BEDTIME PRN Insomnia Metoprolol Tartrate 25 mg 07/22/20 21:00 08/26/20 09:26 Metoprolol Tartrate 25 Mg Tablet PO Not Given BID [facility] Protocol Metronidazole 1 appl 08/14/20 09:00 08/26/20 09:34 Metronidazole 0.75 % Gel 45 Gm Tube TOPICAL Not Given BID [facility] Multivitamins/Vitamin C 1 tab 07/23/20 09:00 08/26/20 09:34 Multivitamin Tablet PO 1 tab DAILY [facility] Administration Nystatin 1 appl 07/22/20 21:00 08/26/20 09:35 Nystatin Powder 15 Gm Bottle TOPICAL Not Given BID [facility] Protocol Senna 17.2 mg 07/22/20 17:59 Sennosides 8.6 Mg Tablet PO DAILY PRN Constipation Home Medications Medication Instructions Recorded Confirmed Last Taken Type albuterol sulfate 90 mcg/actuation 2 puff INHALATION Q4-6H PRN 04/04/20 07/22/20 Unknown History aerosol inhaler clonazepam 0.5 mg tablet 0.5 mg PO Q4-6H PRN 04/04/20 07/22/20 Unknown History lidocaine 5 % topical patch 1 patch TOPICAL DAILY 04/04/20 07/22/20 Unknown History lisinopril 5 mg tablet 5 mg PO DAILY 04/04/20 07/22/20 Unknown History melatonin 3 mg capsule 3 mg PO BEDTIME PRN 04/04/20 07/22/20 Unknown History metoprolol tartrate 25 mg tablet 25 mg PO BID 04/04/20 07/22/20 Unknown History multivitamin 1 tab PO DAILY 04/04/20 07/22/20 Unknown History naloxone 4 mg/actuation nasal spray 4 mg INTRANASAL Q3M PRN 04/04/20 07/22/20 Unknown History nystatin 100,000 unit/gram topical 1 applic TOPICAL BID 04/04/20 07/22/20 Unknown History powder paliperidone palmitate 234 mg/1.5 234 mg IM Q30D 04/04/20 07/22/20 Unknown History mL intramuscular syringe sennosides 15 mg tablet 17 mg PO DAILY PRN tab 04/04/20 07/22/20 Unknown History metronidazole [Metrogel] 1 appl TOPICAL DAILY 07/22/20 07/22/20 Unknown History Physical Exam Vital Signs: Vital Signs: Last Vital Signs Temp 97.3 F 08/22/20 19:15 Pulse 94 08/22/20 19:15 Resp 18 08/26/20 06:00 BP 115/64 08/22/20 19:15 Pulse Ox 96 08/22/20 06:00 Body Mass Index 0.0 GENERAL APPEARANCE: in no acute distress, well developed, well nourished. HEENT: unremarkable. HEAD: normocephalic, atraumatic. NECK/THYROID: no carotid bruit, no jugular venous distention. SKIN: no suspicious lesions, warm and dry. HEART: no murmurs, regular rate and rhythm, S1, S2 normal. LUNGS: clear to auscultation bilaterally. ABDOMEN: normal, bowel sounds present, soft, nontender, nondistended. EXTREMITIES: no clubbing, cyanosis, or edema. Right arm tenderness. She is having trouble abducting the arm. PERIPHERAL PULSES: equal. NEUROLOGIC: nonfocal, alert and oriented. Results Labs and Meds Result diagrams: 07/31/20 13:55 08/25/20 20:31 Lab results: Laboratory Results - last 24 hr 08/25/20 20:31 Sodium 140 Potassium 5.0 Chloride 104 Carbon Dioxide 26 Anion Gap 15 BUN 13 Creatinine 0.83 Estim Creat Clear Calc TNP Estimated GFR > 60 Random Glucose 186 H Calcium 8.9 Magnesium 2.0 Total Bilirubin 0.3 AST 20 ALT 29 Alkaline Phosphatase 109 Total Protein 6.3 L Albumin 3.9 Imaging Radiologist's impression: Impressions Humerus X-Ray 08/26/20 00:00 IMPRESSION: Nondisplaced fracture of the humeral head tuberosity. Assessment and Plan (1) Hypertension: Qualifiers: Hypertension type: unspecified Qualified Code(s): I10 - Essential (primary) hypertension Status: Acute (2) Obesity: Qualifiers: Obesity type: due to excess calories Obesity classification: adult class 3 (BMI >= 40) Serious obesity comorbidity presence: without serious comorbidity Body mass index: BMI 50.0-59.9 Qualified Code(s): E66.01 - Morbid (severe) obesity due to excess calories; Z68.43 - Body mass index [BMI] 50.0-59.9, adult Status: Acute (3) Prolonged QT interval: Status: Acute 50-year-old female with schizophrenia. She is on anti psychotic medications. We have been asked to assess her because of prolonged QTC on the EKG. The EKG had significant artifact in the lateral leads. When manually checked the QT interval was normal. She can continue her anti psychotic medications as before. Please monitor EKGs closely and if there is any concern again please reach out to us. Please monitor electrolytes during potassium magnesium if possible and if she allows any blood workup. She is agreeable for getting right shoulder x-ray. Thank you for allowing me to participate in the care of your patient. Please feel free to contact me if you have any questions.
--- NOTE | 2020-08-26 19:00 | HO.PSYCHPN ---
Subjective Subjective Date of Service: 08/26/20 Reason For Visit: psychosis, prolonged QT Subjective Notes: Section 7 and Section 8 Interim History: Sivan has remained grossly psychotic. At times she can be quite agitated and aggressive. Last evening she was chasing one of the clinicians and she fell onto the floor. She complained of pain in her arm. Initially she refused and XR, but later agreed. This has revealed a non-displace fracture. Orthopedic consult is now pending. She has used motrin for pain with good effect. Cardiology consult appreciated. Elevated QTc appears to have been an artefact, and suggest that antipsychotics can be re-instated with monitoring of QTc. She refused EKG today but will try tomorrow. Medication Compliance: Intermittent Side effects from medications: No Attending Groups: No Review of Systems Acute medical concerns: No Medical Review of Systems: changed Review of Systems: Shoulder pain after a fall Review of Systems Review of Systems Yes all other systems are reviewed and are negative Mental Status Exam Mental Status Exam Patient Appearance: Disheveled and Unkempt Patient Orientation: Person, Place (hospital but it is not real) and Situation (I am not committed.) Level of Consciousness: Alert Patient Behavior: Appropriate, Suspicious, Resistive to Care, Avoidant, Fatigued, Distractible, Isolative and Good Eye Contact Mood Description: Constricted and Depressed Affect Description: Constricted Patient Cognition Impaired: Yes Ability to Follow Directions: Good Speech Pattern: Spontaneous Speech and Soft-Spoken Memory Description: Remote Impaired and Episodic Impaired Hallucinations: None Delusions: Being Controlled, Paranoid Ideation and Present Thought Process: Disoriented, Illogical, Distracted and Rumination Thought Content: positive for Disoriented, positive for Fields, positive for Circumstantial, positive for Perseveration, negative for Suicidal Ideation and negative for Homicidal Ideation Depressive Symptoms: Increased Irritability, Loss of Int. in Activity, Feelings of Worthlessness, Hopelessness, Isolating-Friends/Family, Unhappiness, Increased Fatigue, Low Self Esteem and Difficulty Concentrating Judgement: Poor Diagnostics Vital Signs (24Hr): Vital Signs - 24 hr 08/26/20 06:00 Respiratory Rate 18 Body Mass Index 0.0 Labs Results: 07/31/20 13:55 08/25/20 20:31 Labs: Laboratory Results - last 48 hr 08/25/20 20:31 Sodium 140 Potassium 5.0 Chloride 104 Carbon Dioxide 26 Anion Gap 15 BUN 13 Creatinine 0.83 Estim Creat Clear Calc TNP Estimated GFR > 60 Random Glucose 186 H Calcium 8.9 Magnesium 2.0 Total Bilirubin 0.3 AST 20 ALT 29 Alkaline Phosphatase 109 Total Protein 6.3 L Albumin 3.9 Imaging Radiology Impressions: ITS Impressions Humerus X-Ray 08/26/20 00:00 IMPRESSION: Nondisplaced fracture of the humeral head tuberosity. Medications Medications Current Medications Generic Name Dose Route Start Last Admin Trade Name Freq PRN Reason Stop Dose Admin Al Hydroxide/Mg Hydroxide 30 ml 07/22/20 16:17 Magnesium Hydrox/Alum Hydrox 30 Ml Oral.Susp PO Q6H PRN Heartburn/Nausea Haloperidol 5 mg 08/16/20 19:09 Haloperidol 5 Mg Tablet PO BID PRN Psychosis Haloperidol 5 mg 08/26/20 21:00 Haloperidol 5 Mg Tablet PO BEDTIME LOBITO Haloperidol Lactate 5 mg 08/26/20 18:57 Haloperidol Lactate 5 Mg/Ml Vial IM BEDTIME PRN Refusal of court order Ibuprofen 800 mg 08/26/20 01:21 08/26/20 13:45 Ibuprofen 800 Mg Tablet PO 800 mg Q8H PRN Administration Pain, Moderate (Pain Scale 4-6 Lisinopril 5 mg 07/23/20 09:00 08/26/20 09:26 Lisinopril 5 Mg Tablet PO Not Given DAILY [facility] Protocol Lorazepam 1 mg 08/16/20 16:04 Lorazepam 1 Mg Tablet PO Q4H PRN agiation Lorazepam 1 mg 08/16/20 21:00 08/26/20 09:26 Lorazepam 1 Mg Tablet PO 1 mg BID LOBITO Administration Lorazepam 1 mg 08/16/20 19:29 08/25/20 20:56 Lorazepam 2 Mg/Ml Vial IM 1 mg BID PRN Administration if pt refuses po per court ord Magnesium Hydroxide 30 ml 07/22/20 16:17 Milk Of Magnesia 30 Ml Oral.Susp PO DAILY PRN Constipation Melatonin 3 mg 07/22/20 17:58 Melatonin 3 Mg Tablet PO BEDTIME PRN Insomnia Metoprolol Tartrate 25 mg 07/22/20 21:00 08/26/20 09:26 Metoprolol Tartrate 25 Mg Tablet PO Not Given BID [facility] Protocol Metronidazole 1 appl 08/14/20 09:00 08/26/20 09:34 Metronidazole 0.75 % Gel 45 Gm Tube TOPICAL Not Given BID [facility] Multivitamins/Vitamin C 1 tab 07/23/20 09:00 08/26/20 09:34 Multivitamin Tablet PO 1 tab DAILY [facility] Administration Nystatin 1 appl 07/22/20 21:00 08/26/20 09:35 Nystatin Powder 15 Gm Bottle TOPICAL Not Given BID [facility] Protocol Senna 17.2 mg 07/22/20 17:59 Sennosides 8.6 Mg Tablet PO DAILY PRN Constipation Allergies Allergies Allergy/AdvReac Type Severity Reaction Status Date / Time acetaminophen [From TYLENOL] Allergy Intermediate HIVES Verified 07/22/20 02:13 meperidine [From Demerol] Allergy Unknown Verified 07/22/20 02:10 Assessment & Plan Assessment & Plan (1) Schizoaffective disorder: Status: Acute Code(s): F25.9 - Schizoaffective disorder, unspecified Assessment and Plan: Pt is improving-continue current regime Re-start haldol Monitor with EKGs Orthopedic consult re: fracture Greater than 50% of the session was spent on counseling and/or coordination of care Patient educated on: diagnosis and medication risk/benefits Informed Consent: does not understand Reason for contiued inpatient stay Substantial Risk for: inability to function and rapid decompensation
[2020-08-26] MEDS: HaloperidoL 5 MG TABLET PO (20:41)
[2020-08-26] MEDS: Melatonin 3 MG TABLET PO (21:47)
--- NOTE | 2020-08-26 23:07 | PC.NURSE ---
Pt c/o pain in her right shoulder rating 9/10. ROM is minimal, weakness, circulation intact. Brewing Technician was notified about the fracture this evening and a call was made to the cement contractor orthopedic Dr. Vilchis. Reported that the ED doctor should be notified to come up to assess the patient till Ortho can see her tomorrow. Patient has been utilizing her PRN ibuprofen and is currently sleeping. Need to follow up in the morning to Ortho.
--- NOTE | 2020-08-27 | ECG_ITS ---
Test Reason : Prolonged QTc Blood Pressure : / mmHG Vent. Rate : 076 BPM Atrial Rate : 076 BPM P-R Int : 198 ms QRS Dur : 078 ms QT Int : 382 ms P-R-T Axes : 071 007 057 degrees QTc Int : 429 ms Normal sinus rhythm Normal ECG No previous ECGs available Referred By: Martha Jett Electronically Signed By:DANIELLE STARR MD
[2020-08-27 05:35] VITALS: RESP 18
[2020-08-27] MEDS: Ibuprofen 800 MG TABLET PO ×2 (06:11→15:48)
[2020-08-27] MEDS: LORazepam 1 MG TABLET PO ×2 (10:38→21:46)
[2020-08-27] MEDS: Multivitamin TABLET 1 TAB PO (10:38)
--- NOTE | 2020-08-27 15:03 | PC.NURSE ---
Complains of right shoulder pain r/t humerus f
--- NOTE | 2020-08-27 16:06 | P.PNPSI_ITS ---
Subjective Subjective Date of Service: 08/27/20 Reason For Visit: psychosis, prolonged QT Subjective Notes: Section 7 and Section 8 Interim History: Sivan has remained grossly psychotic, although she was much calmer today. At times she can be quite agitated and aggressive. She has a non-displaced fracture of the right humerus. Dr. Ruth from ER was consulted and he recommended an immobilizing sling. Orthopedics was also consulted and she was to be seen by PA today. Pain has been somewhat controlled with ibuprofen but will augment with oxycodone. She agreed to EKG today and RN will follow through with the order. Medication Compliance: Yes Side effects from medications: No Attending Groups: No Review of Systems Acute medical concerns: Yes Fracture Medical Review of Systems: unchanged Review of Systems Review of Systems Yes all other systems are reviewed and are negative, Unobtainable due to mental status and Other Musculoskeletal: Reports other (hip pain that is chronic) Reports behavioral changes, Reports confusion and Reports memory loss Psychiatric: Reports abnormal sleep pattern, Reports anxiety, Reports behavioral changes, Reports change in appetite, Reports confusion, Reports depression, Reports difficulty concentrating, Reports auditory hallucinations, Reports hopelessness, Reports irritability, Reports anhedonia, Reports memory loss, Reports mood swings, Reports paranoia, Reports visual hallucinations, Reports hallucinations, Reports homicidal ideation and Reports suicidal ideation (denies-discussed wanting to work in the [employer]. Hx of work with [employer]) Mental Status Exam Mental Status Exam Patient Appearance: Disheveled and Unkempt Patient Orientation: Person, Place (hospital but it is not real) and Situation (I am not committed.) Level of Consciousness: Alert Patient Behavior: Appropriate, Suspicious, Resistive to Care, Avoidant, Fatigued, Distractible, Isolative and Good Eye Contact Mood Description: Constricted and Depressed Affect Description: Constricted Patient Cognition Impaired: Yes Ability to Follow Directions: Good Speech Pattern: Spontaneous Speech and Soft-Spoken Memory Description: Remote Impaired and Episodic Impaired Thought Content: negative for Suicidal Ideation and negative for Homicidal Ideation Judgement: Poor Diagnostics Vital Signs (24Hr): Vital Signs - 24 hr 08/27/20 05:35 Respiratory Rate 18 Body Mass Index 0.0 Labs Results: 07/31/20 13:55 08/25/20 20:31 Labs: Laboratory Results - last 48 hr 08/25/20 20:31 Sodium 140 Potassium 5.0 Chloride 104 Carbon Dioxide 26 Anion Gap 15 BUN 13 Creatinine 0.83 Estim Creat Clear Calc TNP Estimated GFR > 60 Random Glucose 186 H Calcium 8.9 Magnesium 2.0 Total Bilirubin 0.3 AST 20 ALT 29 Alkaline Phosphatase 109 Total Protein 6.3 L Albumin 3.9 Imaging Radiology Impressions: ITS Impressions Humerus X-Ray 08/26/20 00:00 IMPRESSION: Nondisplaced fracture of the humeral head tuberosity. Medications Medications Current Medications Generic Name Dose Route Start Last Admin Trade Name Freq PRN Reason Stop Dose Admin Al Hydroxide/Mg Hydroxide 30 ml 07/22/20 16:17 Magnesium Hydrox/Alum Hydrox 30 Ml Oral.Susp PO Q6H PRN Heartburn/Nausea Haloperidol 5 mg 08/16/20 19:09 Haloperidol 5 Mg Tablet PO BID PRN Psychosis Haloperidol 5 mg 08/26/20 21:00 08/26/20 20:41 Haloperidol 5 Mg Tablet PO 5 mg BEDTIME [facility] Administration Haloperidol Lactate 5 mg 08/26/20 18:57 Haloperidol Lactate 5 Mg/Ml Vial IM BEDTIME PRN Refusal of court order Ibuprofen 800 mg 08/26/20 01:21 08/27/20 15:48 Ibuprofen 800 Mg Tablet PO 800 mg Q8H PRN Administration Pain, Moderate (Pain Scale 4-6 Lisinopril 5 mg 07/23/20 09:00 08/27/20 10:40 Lisinopril 5 Mg Tablet PO Not Given DAILY [facility] Protocol Lorazepam 1 mg 08/16/20 16:04 Lorazepam 1 Mg Tablet PO Q4H PRN agiation Lorazepam 1 mg 08/16/20 21:00 08/27/20 10:38 Lorazepam 1 Mg Tablet PO 1 mg BID [facility] Administration Lorazepam 1 mg 08/16/20 19:29 08/25/20 20:56 Lorazepam 2 Mg/Ml Vial IM 1 mg BID PRN Administration if pt refuses po per court ord Magnesium Hydroxide 30 ml 07/22/20 16:17 Milk Of Magnesia 30 Ml Oral.Susp PO DAILY PRN Constipation Melatonin 3 mg 07/22/20 17:58 08/26/20 21:47 Melatonin 3 Mg Tablet PO 3 mg BEDTIME PRN Administration Insomnia Metoprolol Tartrate 25 mg 07/22/20 21:00 08/27/20 10:40 Metoprolol Tartrate 25 Mg Tablet PO Not Given BID [facility] Protocol Metronidazole 1 appl 08/14/20 09:00 08/27/20 10:40 Metronidazole 0.75 % Gel 45 Gm Tube TOPICAL Not Given BID [facility] Multivitamins/Vitamin C 1 tab 07/23/20 09:00 08/27/20 10:38 Multivitamin Tablet PO 1 tab DAILY [facility] Administration Nystatin 1 appl 07/22/20 21:00 08/27/20 10:40 Nystatin Powder 15 Gm Bottle TOPICAL Not Given BID [facility] Protocol Senna 17.2 mg 07/22/20 17:59 Sennosides 8.6 Mg Tablet PO DAILY PRN Constipation Allergies Allergies Allergy/AdvReac Type Severity Reaction Status Date / Time acetaminophen [From TYLENOL] Allergy Intermediate HIVES Verified 07/22/20 02:13 meperidine [From Demerol] Allergy Unknown Verified 07/22/20 02:10 Assessment & Plan Assessment & Plan (1) Schizoaffective disorder: Status: Acute Code(s): F25.9 - Schizoaffective disorder, unspecified Assessment and Plan: Pt is improving-continue current regime Re-start haldol Monitor with EKGs Orthopedic consult re: fracture Greater than 50% of the session was spent on counseling and/or coordination of care Patient educated on: diagnosis and medication risk/benefits Informed Consent: further education needed Reason for contiued inpatient stay Substantial Risk for: rapid decompensation
[2020-08-27] MEDS: oxyCODONE HCl Immed Release 5 MG TABLET PO ×2 (17:37→21:46)
[2020-08-27 21:45] VITALS: BP 138/79; PULSE 75; TEMP 36.2
[2020-08-27 21:46] VITALS: BP 138/79; PULSE 75
[2020-08-27] MEDS: HaloperidoL 5 MG TABLET PO (21:46)
[2020-08-27] MEDS: Metoprolol Tartrate 25 MG TABLET PO (21:46)
[2020-08-27] MEDS: Melatonin 3 MG TABLET PO (21:46)
[2020-08-28] MEDS: oxyCODONE HCl Immed Release 5 MG TABLET PO ×4 (02:48→20:56)
[2020-08-28] MEDS: LORazepam 1 MG TABLET PO ×3 (02:48→20:57)
[2020-08-28 06:00] VITALS: BP 122/75; PULSE 70; RESP 18; TEMP 36.2; O2SAT 95
--- NOTE | 2020-08-28 07:43 | PM.EVENT ---
Event Note Date of Service: 08/28/20 Event Note: right shoulder greater tuberosity fx -she fell on the floor chasing a clinician down the floor -she was seen today wearing sling -recommend no abduction of the arm -will order PT/OT consult note to follow
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
[2020-08-28 08:55] VITALS: BP 122/61; PULSE 92
[2020-08-28] MEDS: Multivitamin TABLET 1 TAB PO (08:55)
[2020-08-28] MEDS: Metoprolol Tartrate 25 MG TABLET PO ×2 (08:55→20:58)
[2020-08-28 08:56] VITALS: BP 122/61; PULSE 92
[2020-08-28] MEDS: Nystatin Powder 15 GM BOTTLE 1 APPL TOPICAL (08:56)
[2020-08-28] MEDS: metroNIDAZOLE 0.75 % Gel 45 GM TUBE 1 APPL TOPICAL (08:56)
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
[2020-08-28 20:50] VITALS: BP 108/53; PULSE 85; TEMP 36.8
[2020-08-28] MEDS: HaloperidoL 5 MG TABLET PO (20:56)
[2020-08-28] MEDS: Melatonin 3 MG TABLET PO (20:56)
[2020-08-28 20:58] VITALS: BP 108/53; PULSE 85
[2020-08-29] MEDS: LORazepam 1 MG TABLET PO ×2 (08:46→20:52)
[2020-08-29] MEDS: Multivitamin TABLET 1 TAB PO (08:46)
[2020-08-29] MEDS: oxyCODONE HCl Immed Release 5 MG TABLET PO ×2 (08:46→17:26)
--- NOTE | 2020-08-29 16:53 | HO.PSYCHPN ---
Subjective Subjective Date of Service: 08/29/20 Reason For Visit: right shoulder pain Subjective Notes: Section 8 Interim History: Sivan spent much of her day resting/sleeping. She is reporting r arm pain s/p fracture. She declined to meet, stating only if TW were to give her discharge information. Attempted to see pt twice more during the day, and she was asleep with 1:1 present. Medication Compliance: Yes Side effects from medications: No Attending Groups: No Review of Systems Review of Systems Yes Unobtainable due to mental status Reports behavioral changes Psychiatric: Reports abnormal sleep pattern (increase in sleep), Reports behavioral changes, Reports mood swings and Reports paranoia Mental Status Exam Mental Status Exam Patient Appearance: Disheveled Patient Orientation: Person and Place Level of Consciousness: Awake, Drowsy and Sedated Patient Behavior: Guarded, Passive, Suspicious, Asleep, Sedated, Avoidant, Fatigued, Distractible, Isolative and Poor Eye Contact Mood Description: Suspicious, Withdrawn, Constricted, Angry and Apprehensive Affect Description: Flat Patient Cognition Impaired: Yes Ability to Follow Directions: Fair Speech Pattern: Clear, Monotone, Spontaneous Speech, Soft-Spoken and Delayed Memory Description: Episodic Impaired Hallucinations: None Delusions: Present Thought Process: Distracted and Slowed Thinking Thought Content: positive for Moore, positive for Circumstantial and positive for Tangential Depressive Symptoms: Increased Irritability, Sleeping More Than Usual, Loss of Int. in Activity, Isolating-Friends/Family, Unhappiness, Increased Fatigue, Loss of Energy and Difficulty Concentrating Judgement: Poor Diagnostics Vital Signs (24Hr): Vital Signs - 24 hr 08/28/20 20:50 08/28/20 20:58 Temperature 98.2 F Pulse Rate 85 85 Blood Pressure 108/53 L 108/53 L Body Mass Index 0.0 Labs Results: 07/31/20 13:55 08/25/20 20:31 Imaging Radiology Impressions: ITS Impressions Humerus X-Ray 08/26/20 00:00 IMPRESSION: Nondisplaced fracture of the humeral head tuberosity. Medications Medications Current Medications Generic Name Dose Route Start Last Admin Trade Name Freq PRN Reason Stop Dose Admin Al Hydroxide/Mg Hydroxide 30 ml 07/22/20 16:17 Magnesium Hydrox/Alum Hydrox 30 Ml Oral.Susp PO Q6H PRN Heartburn/Nausea Haloperidol 5 mg 08/16/20 19:09 Haloperidol 5 Mg Tablet PO BID PRN Psychosis Haloperidol 5 mg 08/26/20 21:00 08/28/20 20:56 Haloperidol 5 Mg Tablet PO 5 mg BEDTIME LOB[facility]O Administration Haloperidol Lactate 5 mg 08/26/20 18:57 Haloperidol Lactate 5 Mg/Ml Vial IM BEDTIME PRN Refusal of court order Ibuprofen 800 mg 08/26/20 01:21 08/27/20 15:48 Ibuprofen 800 Mg Tablet PO 800 mg Q8H PRN Administration Pain, Moderate (Pain Scale 4-6 Lisinopril 5 mg 07/23/20 09:00 08/29/20 08:58 Lisinopril 5 Mg Tablet PO Not Given DAILY [facility] Protocol Lorazepam 1 mg 08/16/20 16:04 08/28/20 02:48 Lorazepam 1 Mg Tablet PO 1 mg Q4H PRN Administration agiation Lorazepam 1 mg 08/16/20 21:00 08/29/20 08:46 Lorazepam 1 Mg Tablet PO 1 mg BID [facility] Administration Lorazepam 1 mg 08/16/20 19:29 08/25/20 20:56 Lorazepam 2 Mg/Ml Vial IM 1 mg BID PRN Administration if pt refuses po per court ord Magnesium Hydroxide 30 ml 07/22/20 16:17 Milk Of Magnesia 30 Ml Oral.Susp PO DAILY PRN Constipation Melatonin 3 mg 07/22/20 17:58 08/28/20 20:56 Melatonin 3 Mg Tablet PO 3 mg BEDTIME PRN Administration Insomnia Metoprolol Tartrate 25 mg 07/22/20 21:00 08/29/20 08:58 Metoprolol Tartrate 25 Mg Tablet PO Not Given BID [facility] Protocol Metronidazole 1 appl 08/14/20 09:00 08/29/20 08:58 Metronidazole 0.75 % Gel 45 Gm Tube TOPICAL Not Given BID [facility] Multivitamins/Vitamin C 1 tab 07/23/20 09:00 08/29/20 08:46 Multivitamin Tablet PO 1 tab DAILY [facility] Administration Nystatin 1 appl 07/22/20 21:00 08/29/20 08:58 Nystatin Powder 15 Gm Bottle TOPICAL Not Given BID [facility] Protocol Oxycodone HCl 5 mg 08/27/20 16:12 08/29/20 08:46 Oxycodone Hcl Immed Release 5 Mg Tablet PO 5 mg Q4H PRN Administration Pain, Moderate (Pain Scale 4-6 Senna 17.2 mg 02/27/21 17:59 Sennosides 8.6 Mg Tablet PO DAILY PRN Constipation Allergies Allergies Allergy/AdvReac Type Severity Reaction Status Date / Time acetaminophen [From TYLENOL] Allergy Intermediate HIVES Verified 07/22/20 02:13 meperidine [From Demerol] Allergy Unknown Verified 07/22/20 02:10 Assessment & Plan Assessment & Plan (1) Schizoaffective disorder: Status: Acute Code(s): F25.9 - Schizoaffective disorder, unspecified Assessment and Plan: -Continue current regime Greater than 50% of the session was spent on counseling and/or coordination of care Reason for contiued inpatient stay Substantial Risk for: harm to self, harm to others, inability to function, rapid decompensation and med/psych decompensation
[2020-08-29 18:00] VITALS: BP 122/79; PULSE 108; RESP 16; TEMP 36.5; O2SAT 93
[2020-08-29 20:53] VITALS: BP 122/79; PULSE 108
[2020-08-29] MEDS: HaloperidoL 5 MG TABLET PO (20:53)
[2020-08-29] MEDS: Metoprolol Tartrate 25 MG TABLET PO (20:53)
[2020-08-29] MEDS: Nystatin Powder 15 GM BOTTLE 1 APPL TOPICAL (20:54)
[2020-08-29] MEDS: Melatonin 3 MG TABLET PO (23:51)
[2020-08-30 06:00] VITALS: BP 118/61; PULSE 8
[2020-08-30 08:55] VITALS: BP 110/61; PULSE 78
[2020-08-30] MEDS: Multivitamin TABLET 1 TAB PO (08:55)
[2020-08-30] MEDS: LORazepam 1 MG TABLET PO (08:55)
[2020-08-30] MEDS: oxyCODONE HCl Immed Release 5 MG TABLET PO ×3 (08:55→22:07)
[2020-08-30 08:56] VITALS: BP 110/61; PULSE 78
[2020-08-30] MEDS: Metoprolol Tartrate 25 MG TABLET PO (08:56)
--- NOTE | 2020-08-30 12:29 | HO.PSYCHPN ---
Subjective Subjective Date of Service: 08/30/20 Reason For Visit: right shoulder pain Subjective Notes: Section 8 Interim History: Pt sleeping most of the day when attempting to be seen. Reports pain 9/10 to team in shoulder. Using pain medication regularly. Consult requested for orthopedics to discuss pain medication duration of use. Accepting PO psychotropic medication more frequently per team report and overall increase in compliance. Team reports more isolative today. Medication Compliance: Yes Side effects from medications: Yes (sedation) Attending Groups: No Review of Systems Musculoskeletal: Reports other (Fx L Humerus) Reports behavioral changes Psychiatric: Reports abnormal sleep pattern, Reports behavioral changes, Reports depression, Reports irritability, Reports anhedonia, Reports paranoia and Reports suicidal ideation (denies) Mental Status Exam Mental Status Exam Patient Appearance: Disheveled Patient Orientation: Person and Place Level of Consciousness: Drowsy and Sedated Patient Behavior: Guarded, Suspicious, Asleep, Belligerent, Anxious, Sedated, Fearful, Avoidant, Fatigued, Distractible, Isolative and Poor Eye Contact Mood Description: Constricted and Labile Affect Description: Labile Patient Cognition Impaired: Yes Ability to Follow Directions: Good Speech Pattern: Spontaneous Speech Memory Description: Episodic Impaired Hallucinations: None Delusions: Present Thought Process: Distracted and Slowed Thinking Thought Content: positive for [place] and positive for Circumstantial Depressive Symptoms: Increased Anxiety, Increased Irritability, Muscle Pain, Sleeping More Than Usual and Thoughts of /Suicide (denies) Judgement: Poor Diagnostics Vital Signs (24Hr): Vital Signs - 24 hr 08/29/20 18:00 08/29/20 20:53 08/30/20 06:00 Temperature 97.7 F Pulse Rate 108 H 108 H 8 L Respiratory Rate 16 Blood Pressure 122/79 122/79 118/61 Pulse Oximetry 93 08/30/20 08:55 08/30/20 08:56 Temperature Pulse Rate 78 78 Respiratory Rate Blood Pressure 110/61 110/61 Pulse Oximetry Body Mass Index 0.0 Labs Results: 07/31/20 13:55 08/25/20 20:31 Imaging Radiology Impressions: ITS Impressions Humerus X-Ray 08/26/20 00:00 IMPRESSION: Nondisplaced fracture of the humeral head tuberosity. Medications Medications Current Medications Generic Name Dose Route Start Last Admin Trade Name Freq PRN Reason Stop Dose Admin Al Hydroxide/Mg Hydroxide 30 ml 07/22/20 16:17 Magnesium Hydrox/Alum Hydrox 30 Ml Oral.Susp PO Q6H PRN Heartburn/Nausea Haloperidol 5 mg 08/16/20 19:09 Haloperidol 5 Mg Tablet PO BID PRN Psychosis Haloperidol 5 mg 08/26/20 21:00 08/29/20 20:53 Haloperidol 5 Mg Tablet PO 5 mg BEDTIME [facility] Administration Haloperidol Lactate 5 mg 08/26/20 18:57 Haloperidol Lactate 5 Mg/Ml Vial IM BEDTIME PRN Refusal of court order Ibuprofen 800 mg 08/26/20 01:21 08/27/20 15:48 Ibuprofen 800 Mg Tablet PO 800 mg Q8H PRN Administration Pain, Moderate (Pain Scale 4-6 Lisinopril 5 mg 07/23/20 09:00 08/30/20 08:55 Lisinopril 5 Mg Tablet PO 5 mg DAILY [facility] Administration Protocol Lorazepam 1 mg 08/16/20 16:04 08/28/20 02:48 Lorazepam 1 Mg Tablet PO 1 mg Q4H PRN Administration agiation Lorazepam 1 mg 08/16/20 21:00 08/30/20 08:55 Lorazepam 1 Mg Tablet PO 1 mg BID [facility] Administration Lorazepam 1 mg 08/16/20 19:29 08/25/20 20:56 Lorazepam 2 Mg/Ml Vial IM 1 mg BID PRN Administration if pt refuses po per court ord Magnesium Hydroxide 30 ml 07/22/20 16:17 Milk Of Magnesia 30 Ml Oral.Susp PO DAILY PRN Constipation Melatonin 3 mg 07/22/20 17:58 08/29/20 23:51 Melatonin 3 Mg Tablet PO 3 mg BEDTIME PRN Administration Insomnia Metoprolol Tartrate 25 mg 07/22/20 21:00 08/30/20 08:56 Metoprolol Tartrate 25 Mg Tablet PO 25 mg BID [facility] Administration Protocol Metronidazole 1 appl 08/14/20 09:00 08/30/20 10:40 Metronidazole 0.75 % Gel 45 Gm Tube TOPICAL Not Given BID [facility] Multivitamins/Vitamin C 1 tab 07/23/20 09:00 08/30/20 08:55 Multivitamin Tablet PO 1 tab DAILY [facility] Administration Nystatin 1 appl 07/22/20 21:00 08/30/20 10:05 Nystatin Powder 15 Gm Bottle TOPICAL Not Given BID [facility] Protocol Oxycodone HCl 5 mg 08/27/20 16:12 08/30/20 08:55 Oxycodone Hcl Immed Release 5 Mg Tablet PO 5 mg Q4H PRN Administration Pain, Moderate (Pain Scale 4-6 Senna 17.2 mg 07/22/20 17:59 Sennosides 8.6 Mg Tablet PO DAILY PRN Constipation Allergies Allergies Allergy/AdvReac Type Severity Reaction Status Date / Time acetaminophen [From TYLENOL] Allergy Intermediate HIVES Verified 07/22/20 02:13 meperidine [From Demerol] Allergy Unknown Verified 07/22/20 02:10 Assessment & Plan Assessment & Plan (1) Fracture of greater tuberosity of left humerus: Status: Acute Code(s): S42.252A - Displaced fracture of greater tuberosity of left humerus, initial encounter for closed fracture Assessment and Plan: -Continue 1:1 -Continue ortho care-supportive sling, pain mgt. (2) Prolonged QT interval: Status: Acute Code(s): R94.31 - Abnormal electrocardiogram [ECG] [EKG] Assessment and Plan: Resolved-will repeat EKG this week. (3) Schizoaffective disorder: Status: Acute Code(s): F25.9 - Schizoaffective disorder, unspecified Assessment and Plan: -Continue current medication plan. -Invega Sustenna given 08/04/20 234 mg and 08/12/20 156 mg. Next IM due 09/10/20. Greater than 50% of the session was spent on counseling and/or coordination of care Reason for contiued inpatient stay Substantial Risk for: harm to self, harm to others, inability to function, rapid decompensation and med/psych decompensation
[2020-08-30] MEDS: Haloperidol Lactate 5 MG/ML VIAL IM (20:36)
[2020-08-30] MEDS: LORazepam 2 MG/ML VIAL 1 MG IM (20:37)
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
[2020-08-31 06:00] VITALS: RESP 18
[2020-08-31] MEDS: metroNIDAZOLE 0.75 % Gel 45 GM TUBE 1 APPL TOPICAL (09:53)
[2020-08-31] MEDS: LORazepam 1 MG TABLET PO ×2 (09:53→21:32)
[2020-08-31] MEDS: Multivitamin TABLET 1 TAB PO (09:53)
[2020-08-31] MEDS: oxyCODONE HCl Immed Release 5 MG TABLET PO ×2 (16:16→21:57)
[2020-08-31] MEDS: Ibuprofen 800 MG TABLET PO (18:03)
--- NOTE | 2020-08-31 18:50 | HO.PSYCHPN ---
Subjective Subjective Date of Service: 08/31/20 Reason For Visit: right shoulder pain Subjective Notes: Section 8 Interim History: Pt is sleeping for most of the day- unable to meet. She is reporting significant pain and is using pain med. Consultation with orthopedics appreciated regarding pain mgt. Aj Renner encourages us to consider Oxycodone or Percocet for the first 3-4 weeks, asking pt not to move her arm away from the body because the attachment of the rotator cuff is at the fracture site and it can tear. Meeting scheduled for 09/04 with pt's [facility]-brief, just for her to check in with them. She did not talk with this rfp writer today-she was up briefly to ambulate but appears sedate, medicated. Medication Compliance: Yes Side effects from medications: Yes (sedation) Attending Groups: No Review of Systems Musculoskeletal: Reports myalgias, Reports arthralgias and Reports muscle weakness Comments: L Humeral Fx Reports behavioral changes Psychiatric: Reports anxiety, Reports behavioral changes, Reports depression, Reports difficulty concentrating, Reports irritability, Reports anhedonia, Reports mood swings and Reports paranoia Mental Status Exam Mental Status Exam Patient Appearance: Fatigued and Disheveled Patient Orientation: Person, Place and Situation Level of Consciousness: Alert Patient Behavior: Asleep and Fatigued Mood Description: Withdrawn and Labile Affect Description: Labile and Flat Patient Cognition Impaired: Yes Ability to Follow Directions: Poor Speech Pattern: Impoverished, Spontaneous Speech and Soft-Spoken Memory Description: Remote Impaired and Episodic Impaired Hallucinations: Auditory Delusions: Present Thought Process: Distracted and Slowed Thinking Thought Content: positive for [place], positive for [place] and positive for Slowed Thinking Depressive Symptoms: Sleeping More Than Usual (pain), Loss of Int. in Activity, Unexplained Headaches, Increased Fatigue and Loss of Energy Judgement: Poor Diagnostics Vital Signs (24Hr): Vital Signs - 24 hr 08/31/20 06:00 Respiratory Rate 18 Body Mass Index 0.0 Labs Results: 07/31/20 13:55 08/25/20 20:31 Imaging Radiology Impressions: ITS Impressions Humerus X-Ray 08/26/20 00:00 IMPRESSION: Nondisplaced fracture of the humeral head tuberosity. Medications Medications Current Medications Generic Name Dose Route Start Last Admin Trade Name Freq PRN Reason Stop Dose Admin Al Hydroxide/Mg Hydroxide 30 ml 07/22/20 16:17 Magnesium Hydrox/Alum Hydrox 30 Ml Oral.Susp PO Q6H PRN Heartburn/Nausea Haloperidol 5 mg 08/16/20 19:09 Haloperidol 5 Mg Tablet PO BID PRN Psychosis Haloperidol 5 mg 08/26/20 21:00 08/30/20 20:44 Haloperidol 5 Mg Tablet PO Not Given BEDTIME [facility] Haloperidol Lactate 5 mg 08/26/20 18:57 08/30/20 20:36 Haloperidol Lactate 5 Mg/Ml Vial IM 5 mg BEDTIME PRN Administration Refusal of court order Ibuprofen 800 mg 08/26/20 01:21 08/31/20 18:03 Ibuprofen 800 Mg Tablet PO 800 mg Q8H PRN Administration Pain, Moderate (Pain Scale 4-6 Lisinopril 5 mg 07/23/20 09:00 08/31/20 10:00 Lisinopril 5 Mg Tablet PO Not Given DAILY [facility] Protocol Lorazepam 1 mg 08/16/20 16:04 08/28/20 02:48 Lorazepam 1 Mg Tablet PO 1 mg Q4H PRN Administration agiation Lorazepam 1 mg 08/16/20 21:00 08/31/20 09:53 Lorazepam 1 Mg Tablet PO 1 mg BID [facility] Administration Lorazepam 1 mg 08/16/20 19:29 08/30/20 20:37 Lorazepam 2 Mg/Ml Vial IM 1 mg BID PRN Administration if pt refuses po per court ord Magnesium Hydroxide 30 ml 07/22/20 16:17 Milk Of Magnesia 30 Ml Oral.Susp PO DAILY PRN Constipation Melatonin 3 mg 07/22/20 17:58 08/29/20 23:51 Melatonin 3 Mg Tablet PO 3 mg BEDTIME PRN Administration Insomnia Metoprolol Tartrate 25 mg 07/22/20 21:00 08/31/20 10:00 Metoprolol Tartrate 25 Mg Tablet PO Not Given BID [facility] Protocol Metronidazole 1 appl 08/14/20 09:00 08/31/20 09:53 Metronidazole 0.75 % Gel 45 Gm Tube TOPICAL 1 appl BID [facility] Administration Multivitamins/Vitamin C 1 tab 07/23/20 09:00 08/31/20 09:53 Multivitamin Tablet PO 1 tab DAILY [facility] Administration Nystatin 1 appl 07/22/20 21:00 08/31/20 10:00 Nystatin Powder 15 Gm Bottle TOPICAL Not Given BID [facility] Protocol Oxycodone HCl 5 mg 08/27/20 16:12 08/31/20 16:16 Oxycodone Hcl Immed Release 5 Mg Tablet PO 5 mg Q4H PRN Administration Pain, Moderate (Pain Scale 4-6 Senna 17.2 mg 07/22/20 17:59 Sennosides 8.6 Mg Tablet PO DAILY PRN Constipation Allergies Allergies Allergy/AdvReac Type Severity Reaction Status Date / Time acetaminophen [From TYLENOL] Allergy Intermediate HIVES Verified 07/22/20 02:13 meperidine [From Demerol] Allergy Unknown Verified 07/22/20 02:10 Assessment & Plan Assessment & Plan (1) Fracture of greater tuberosity of left humerus: Status: Acute Code(s): S42.252A - Displaced fracture of greater tuberosity of left humerus, initial encounter for closed fracture Assessment and Plan: -Pain Mgt -Position Mgt -Orthopedic consult appreciated. (2) Schizoaffective disorder: Status: Acute Code(s): F25.9 - Schizoaffective disorder, unspecified Assessment and Plan: -Sedated due to pain mgt. -Continue current psychiatric plan. Greater than 50% of the session was spent on counseling and/or coordination of care Informed Consent: does not understand Reason for contiued inpatient stay Substantial Risk for: harm to self, harm to others, inability to function, rapid decompensation and med/psych decompensation
[2020-08-31] MEDS: HaloperidoL 5 MG TABLET PO (21:32)
[2020-09-01] MEDS: Ibuprofen 800 MG TABLET PO (10:21)
[2020-09-01] MEDS: LORazepam 1 MG TABLET PO (10:22)
[2020-09-01] MEDS: Multivitamin TABLET 1 TAB PO (10:22)
--- NOTE | 2020-09-01 10:54 | PC.NURSE ---
Approached for vitals,pt refused I'm all set,I dont need them .
[2020-09-01] MEDS: HaloperidoL 5 MG TABLET PO ×2 (11:04→19:58)
[2020-09-01] MEDS: oxyCODONE HCl Immed Release 5 MG TABLET PO ×2 (11:04→19:58)
--- NOTE | 2020-09-01 13:30 | PC.NURSE ---
Staff from [facility] in and met with patient. Good interaction noted. Patient was pleasant and talkative.
--- NOTE | 2020-09-01 14:49 | HO.PSYCHPN ---
Subjective Subjective Date of Service: 09/01/20 Reason For Visit: right shoulder pain Subjective Notes: Section 8 Interim History: Pt sedate from pain meds and Lorazepam. Will decrease Lorazepam to 0.5 mg bid Up at times-irritable, labile-engages in some brief superficial discussion, however, intolerant of clinical conversation as she was able to manage prior to Haldol decrease. Ortho team recommends we keep pain med in place for 3-4 weeks with the goal of immobilization of the shoulder to prevent rotator tear. Medication Compliance: Yes Side effects from medications: Yes (sedation) Attending Groups: No Review of Systems Musculoskeletal: Reports arthralgias, Reports limited range of motion, Reports muscle weakness and Reports radiating pain into limb Comments: Humerus Fx. Reports behavioral changes Psychiatric: Reports behavioral changes, Reports irritability and Reports mood swings Mental Status Exam Mental Status Exam Patient Appearance: Disheveled and Unkempt Patient Orientation: Person, Place and Situation Level of Consciousness: Awake and Sedated Patient Behavior: Guarded, Avoidant and Isolative Mood Description: Labile Affect Description: Labile Patient Cognition Impaired: Yes Ability to Follow Directions: Fair Speech Pattern: Spontaneous Speech and Soft-Spoken Memory Description: Episodic Impaired Hallucinations: Auditory Delusions: Present Thought Process: Distracted Thought Content: positive for [place] and positive for [place] Depressive Symptoms: Increased Anxiety, Increased Irritability and Sleeping More Than Usual Judgement: Poor Diagnostics Vital Signs (24Hr): Body Mass Index 0.0 Labs Results: 07/31/20 13:55 08/25/20 20:31 Imaging Radiology Impressions: ITS Impressions Humerus X-Ray 08/26/20 00:00 IMPRESSION: Nondisplaced fracture of the humeral head tuberosity. Medications Medications Current Medications Generic Name Dose Route Start Last Admin Trade Name Freq PRN Reason Stop Dose Admin Al Hydroxide/Mg Hydroxide 30 ml 07/22/20 16:17 Magnesium Hydrox/Alum Hydrox 30 Ml Oral.Susp PO Q6H PRN Heartburn/Nausea Haloperidol 5 mg 08/16/20 19:09 09/01/20 11:04 Haloperidol 5 Mg Tablet PO 5 mg BID PRN Administration Psychosis Haloperidol 5 mg 08/26/20 21:00 08/31/20 21:32 Haloperidol 5 Mg Tablet PO 5 mg BEDTIME [facility] Administration Haloperidol Lactate 5 mg 08/26/20 18:57 08/30/20 20:36 Haloperidol Lactate 5 Mg/Ml Vial IM 5 mg BEDTIME PRN Administration Refusal of court order Ibuprofen 800 mg 08/26/20 01:21 09/01/20 10:21 Ibuprofen 800 Mg Tablet PO 800 mg Q8H PRN Administration Pain, Moderate (Pain Scale 4-6 Lisinopril 5 mg 07/23/20 09:00 09/01/20 10:28 Lisinopril 5 Mg Tablet PO Not Given DAILY [facility] Protocol Lorazepam 1 mg 08/16/20 16:04 08/28/20 02:48 Lorazepam 1 Mg Tablet PO 1 mg Q4H PRN Administration agiation Lorazepam 0.5 mg 09/01/20 21:00 Lorazepam 0.5 Mg Tablet PO BID [facility] Lorazepam 0.5 mg 09/01/20 10:43 Lorazepam 2 Mg/Ml Vial IM BID PRN if pt refuses PO per court ord Magnesium Hydroxide 30 ml 07/22/20 16:17 Milk Of Magnesia 30 Ml Oral.Susp PO DAILY PRN Constipation Melatonin 3 mg 07/22/20 17:58 08/29/20 23:51 Melatonin 3 Mg Tablet PO 3 mg BEDTIME PRN Administration Insomnia Metoprolol Tartrate 25 mg 07/22/20 21:00 09/01/20 10:28 Metoprolol Tartrate 25 Mg Tablet PO Not Given BID [facility] Protocol Metronidazole 1 appl 08/14/20 09:00 09/01/20 10:28 Metronidazole 0.75 % Gel 45 Gm Tube TOPICAL Not Given BID [facility] Multivitamins/Vitamin C 1 tab 07/23/20 09:00 09/01/20 10:22 Multivitamin Tablet PO 1 tab DAILY [facility] Administration Nystatin 1 appl 07/22/20 21:00 09/01/20 10:25 Nystatin Powder 15 Gm Bottle TOPICAL Not Given BID [facility] Protocol Oxycodone HCl 5 mg 08/27/20 16:12 09/01/20 11:04 Oxycodone Hcl Immed Release 5 Mg Tablet PO 5 mg Q4H PRN Administration Pain, Moderate (Pain Scale 4-6 Senna 17.2 mg 07/22/20 17:59 Sennosides 8.6 Mg Tablet PO DAILY PRN Constipation Allergies Allergies Allergy/AdvReac Type Severity Reaction Status Date / Time acetaminophen [From TYLENOL] Allergy Intermediate HIVES Verified 07/22/20 02:13 meperidine [From Demerol] Allergy Unknown Verified 07/22/20 02:10 Assessment & Plan Assessment & Plan (1) Fracture of greater tuberosity of left humerus: Status: Acute Code(s): S42.252A - Displaced fracture of greater tuberosity of left humerus, initial encounter for closed fracture Assessment and Plan: -Immobility to prevent rotator tear is the goal. Continue support sling -PRN pain medications (2) Schizoaffective disorder: Status: Acute Code(s): F25.9 - Schizoaffective disorder, unspecified Assessment and Plan: -Less interactive with Haldol decrease. Sedate with pain med and lorazepam. -Decrease Lorazepam to 0.5 mg bid -EKG/Labs next week to evaluate for Haldol increase. QTC elevation may have been an artifact. Greater than 50% of the session was spent on counseling and/or coordination of care Reason for contiued inpatient stay Substantial Risk for: harm to self, harm to others, inability to function, rapid decompensation and med/psych decompensation
[2020-09-01 18:00] VITALS: BP 130/69; PULSE 91; RESP 16; TEMP 37.1; O2SAT 95
[2020-09-01] MEDS: LORazepam 0.5 MG TABLET PO (19:59)
--- NOTE | 2020-09-02 10:43 | P.PNPSI_ITS ---
Subjective Subjective Date of Service: 09/02/20 Reason For Visit: right shoulder pain Interim History: Pt sedate from pain meds and Lorazepam. tolerating decrease Lorazepam to 0.5 mg bid presents irritable, labile and superficial Review of Systems Review of Systems Yes all other systems are reviewed and are negative, Unobtainable due to mental status and Other Musculoskeletal: Reports myalgias, Reports arthralgias, Reports limited range of motion, Reports muscle weakness, Reports radiating pain into limb and Reports other (Fx L Humerus) Reports behavioral changes, Reports confusion and Reports memory loss Psychiatric: Reports abnormal sleep pattern, Reports anxiety, Reports behavioral changes, Reports change in appetite, Reports confusion, Reports depression, Reports difficulty concentrating, Reports auditory hallucinations, Reports hopelessness, Reports irritability, Reports anhedonia, Reports memory loss, Reports mood swings, Reports paranoia, Reports visual hallucinations, Reports hallucinations, Reports homicidal ideation and Reports suicidal ideation (denies) Mental Status Exam Mental Status Exam Narrative: Appearance: casually groomed, fair hygiene, in NAD Behavior: less guarded, minimal eye contact. Psychomotor: no agitation or retardation noted Speech: clear, slowed rate/rhythm/volume, minimally spontaneous TP: single word answers TC: cap gras delusions, paranoid delusions, Mood: okay Affect:constricted SI:denies HI:denies AH/VH:appears to be responding to internal stimuli Delusions:paranoid, cap gras. Insight/judgment:impaired x 2. Memory/cog: alert, impaired secondary to psychiatric symptoms. Patient Appearance: Disheveled and Unkempt Patient Orientation: Person, Place and Situation Level of Consciousness: Awake and Sedated Patient Behavior: Guarded, Avoidant and Isolative Mood Description: Labile Affect Description: Labile Patient Cognition Impaired: Yes Ability to Follow Directions: Fair Speech Pattern: Spontaneous Speech and Soft-Spoken Memory Description: Episodic Impaired Judgement: Fair Diagnostics Vital Signs (24Hr): Vital Signs - 24 hr 09/01/20 18:00 Temperature 98.7 F Pulse Rate 91 Respiratory Rate 16 Blood Pressure 130/69 Pulse Oximetry 95 Body Mass Index 0.0 Labs Results: 07/31/20 13:55 08/25/20 20:31 Imaging Radiology Impressions: ITS Impressions Humerus X-Ray 08/26/20 00:00 IMPRESSION: Nondisplaced fracture of the humeral head tuberosity. Medications Medications Current Medications Generic Name Dose Route Start Last Admin Trade Name Freq PRN Reason Stop Dose Admin Al Hydroxide/Mg Hydroxide 30 ml 07/22/20 16:17 Magnesium Hydrox/Alum Hydrox 30 Ml Oral.Susp PO Q6H PRN Heartburn/Nausea Haloperidol 5 mg 08/16/20 19:09 09/01/20 11:04 Haloperidol 5 Mg Tablet PO 5 mg BID PRN Administration Psychosis Haloperidol 5 mg 08/26/20 21:00 09/01/20 19:58 Haloperidol 5 Mg Tablet PO 5 mg BEDTIME [facility] Administration Haloperidol Lactate 5 mg 08/26/20 18:57 08/30/20 20:36 Haloperidol Lactate 5 Mg/Ml Vial IM 5 mg BEDTIME PRN Administration Refusal of court order Ibuprofen 800 mg 08/26/20 01:21 09/01/20 10:21 Ibuprofen 800 Mg Tablet PO 800 mg Q8H PRN Administration Pain, Moderate (Pain Scale 4-6 Lisinopril 5 mg 07/23/20 09:00 09/01/20 10:28 Lisinopril 5 Mg Tablet PO Not Given DAILY [facility] Protocol Lorazepam 1 mg 08/16/20 16:04 08/28/20 02:48 Lorazepam 1 Mg Tablet PO 1 mg Q4H PRN Administration agiation Lorazepam 0.5 mg 09/01/20 21:00 09/01/20 19:59 Lorazepam 0.5 Mg Tablet PO 0.5 mg BID [facility] Administration Lorazepam 0.5 mg 09/01/20 10:43 Lorazepam 2 Mg/Ml Vial IM BID PRN if pt refuses PO per court ord Magnesium Hydroxide 30 ml 07/22/20 16:17 Milk Of Magnesia 30 Ml Oral.Susp PO DAILY PRN Constipation Melatonin 3 mg 07/22/20 17:58 08/29/20 23:51 Melatonin 3 Mg Tablet PO 3 mg BEDTIME PRN Administration Insomnia Metoprolol Tartrate 25 mg 07/22/20 21:00 09/01/20 21:42 Metoprolol Tartrate 25 Mg Tablet PO Not Given BID [facility] Protocol Metronidazole 1 appl 08/14/20 09:00 09/01/20 21:42 Metronidazole 0.75 % Gel 45 Gm Tube TOPICAL Not Given BID [facility] Multivitamins/Vitamin C 1 tab 07/23/20 09:00 09/01/20 10:22 Multivitamin Tablet PO 1 tab DAILY [facility] Administration Nystatin 1 appl 07/22/20 21:00 09/01/20 21:42 Nystatin Powder 15 Gm Bottle TOPICAL Not Given BID [facility] Protocol Oxycodone HCl 5 mg 08/27/20 16:12 09/01/20 19:58 Oxycodone Hcl Immed Release 5 Mg Tablet PO 5 mg Q4H PRN Administration Pain, Moderate (Pain Scale 4-6 Senna 17.2 mg 07/22/20 17:59 Sennosides 8.6 Mg Tablet PO DAILY PRN Constipation Allergies Allergies Allergy/AdvReac Type Severity Reaction Status Date / Time acetaminophen [From TYLENOL] Allergy Intermediate HIVES Verified 07/22/20 02:13 meperidine [From Demerol] Allergy Unknown Verified 07/22/20 02:10 Assessment & Plan Assessment & Plan (1) Fracture of greater tuberosity of left humerus: Status: Acute Code(s): S42.252A - Displaced fracture of greater tuberosity of left humerus, initial encounter for closed fracture Assessment and Plan: -Immobility to prevent rotator tear is the goal. Continue support sling -PRN pain medications (2) Schizoaffective disorder: Status: Acute Code(s): F25.9 - Schizoaffective disorder, unspecified Assessment and Plan: Continue with treatment plan: -Less interactive with Haldol decrease. Sedate with pain med and lorazepam. -Decrease Lorazepam to 0.5 mg bid -EKG/Labs next week to evaluate for Haldol increase. QTC elevation may have been an artifact. Greater than 50% of the session was spent on counseling and/or coordination of care Reason for contiued inpatient stay Substantial Risk for: harm to self, inability to function, rapid decompensation and med/psych decompensation
[2020-09-02] MEDS: HaloperidoL 5 MG TABLET PO (21:04)
[2020-09-02] MEDS: Melatonin 3 MG TABLET PO (21:04)
[2020-09-02] MEDS: LORazepam 0.5 MG TABLET PO (21:04)
[2020-09-02] MEDS: oxyCODONE HCl Immed Release 5 MG TABLET PO (21:11)
[2020-09-03 07:55] VITALS: RESP 16
[2020-09-03] MEDS: oxyCODONE HCl Immed Release 5 MG TABLET PO ×3 (08:04→21:12)
--- NOTE | 2020-09-03 15:07 | PC.NURSE ---
PT REFUSING ANY BLOOD PRESSURES TO BE TAKEN
[2020-09-03 16:43] VITALS: BP 117/55; PULSE 94; RESP 16; TEMP 36.6; O2SAT 94
--- NOTE | 2020-09-03 17:51 | HO.PSYCHPN ---
Subjective Subjective Date of Service: 09/03/20 Reason For Visit: right shoulder pain Interim History: Pt sedate from pain meds and Lorazepam. tolerating decrease Lorazepam to 0.5 mg bid presents irritable, labile and superficial refused am meds and vitals- paranoid Review of Systems Review of Systems Yes all other systems are reviewed and are negative, Unobtainable due to mental status and Other Musculoskeletal: Reports myalgias, Reports arthralgias, Reports limited range of motion, Reports muscle weakness, Reports radiating pain into limb and Reports other (Fx L Humerus) Reports behavioral changes, Reports confusion and Reports memory loss Psychiatric: Reports abnormal sleep pattern, Reports anxiety, Reports behavioral changes, Reports change in appetite, Reports confusion, Reports depression, Reports difficulty concentrating, Reports auditory hallucinations, Reports hopelessness, Reports irritability, Reports anhedonia, Reports memory loss, Reports mood swings, Reports paranoia, Reports visual hallucinations, Reports hallucinations, Reports homicidal ideation and Reports suicidal ideation (denies) Mental Status Exam Mental Status Exam Narrative: Appearance: casually groomed, fair hygiene, in NAD Behavior: less guarded, minimal eye contact. Psychomotor: no agitation or retardation noted Speech: clear, slowed rate/rhythm/volume, minimally spontaneous TP: single word answers TC: cap gras delusions, paranoid delusions, Mood: okay Affect:constricted SI:denies HI:denies AH/VH:appears to be responding to internal stimuli Delusions:paranoid, cap gras. Insight/judgment:impaired x 2. Memory/cog: alert, impaired secondary to psychiatric symptoms. Patient Appearance: Disheveled and Unkempt Patient Orientation: Person, Place and Situation Level of Consciousness: Awake and Sedated Patient Behavior: Guarded, Avoidant and Isolative Mood Description: Labile Affect Description: Labile Patient Cognition Impaired: Yes Ability to Follow Directions: Fair Speech Pattern: Spontaneous Speech and Soft-Spoken Memory Description: Episodic Impaired Abnormal Motor Activity Signs and Symptoms: Restlessness Judgement: Poor Diagnostics Vital Signs (24Hr): Vital Signs - 24 hr 09/03/20 07:55 09/03/20 16:43 Temperature 97.9 F Pulse Rate 94 Respiratory Rate 16 16 Blood Pressure 117/55 L Pulse Oximetry 94 Body Mass Index 0.0 Labs Results: 07/31/20 13:55 08/25/20 20:31 Imaging Radiology Impressions: ITS Impressions Humerus X-Ray 08/26/20 00:00 IMPRESSION: Nondisplaced fracture of the humeral head tuberosity. Medications Medications Current Medications Generic Name Dose Route Start Last Admin Trade Name Elizabeth PRN Reason Stop Dose Admin Al Hydroxide/Mg Hydroxide 30 ml 07/22/20 16:17 Magnesium Hydrox/Alum Hydrox 30 Ml Oral.Susp PO Q6H PRN Heartburn/Nausea Haloperidol 5 mg 08/16/20 19:09 09/01/20 11:04 Haloperidol 5 Mg Tablet PO 5 mg BID PRN Administration Psychosis Haloperidol 5 mg 08/26/20 21:00 09/02/20 21:04 Haloperidol 5 Mg Tablet PO 5 mg BEDTIME [facility] Administration Haloperidol Lactate 5 mg 08/26/20 18:57 08/30/20 20:36 Haloperidol Lactate 5 Mg/Ml Vial IM 5 mg BEDTIME PRN Administration Refusal of court order Ibuprofen 800 mg 08/26/20 01:21 09/01/20 10:21 Ibuprofen 800 Mg Tablet PO 800 mg Q8H PRN Administration Pain, Moderate (Pain Scale 4-6 Lisinopril 5 mg 07/23/20 09:00 09/03/20 08:07 Lisinopril 5 Mg Tablet PO Not Given DAILY [facility] Protocol Lorazepam 0.5 mg 09/01/20 21:00 09/03/20 08:08 Lorazepam 0.5 Mg Tablet PO Not Given BID [facility] Lorazepam 0.5 mg 09/01/20 10:43 Lorazepam 2 Mg/Ml Vial IM BID PRN if pt refuses PO per court ord Magnesium Hydroxide 30 ml 07/22/20 16:17 Milk Of Magnesia 30 Ml Oral.Susp PO DAILY PRN Constipation Melatonin 3 mg 07/22/20 17:58 09/02/20 21:04 Melatonin 3 Mg Tablet PO 3 mg BEDTIME PRN Administration Insomnia Metoprolol Tartrate 25 mg 07/22/20 21:00 09/03/20 08:08 Metoprolol Tartrate 25 Mg Tablet PO Not Given BID [facility] Protocol Metronidazole 1 appl 08/14/20 09:00 09/03/20 08:08 Metronidazole 0.75 % Gel 45 Gm Tube TOPICAL Not Given BID [facility] Multivitamins/Vitamin C 1 tab 07/23/20 09:00 09/03/20 08:08 Multivitamin Tablet PO Not Given DAILY [facility] Nystatin 1 appl 07/22/20 21:00 09/03/20 08:09 Nystatin Powder 15 Gm Bottle TOPICAL Not Given BID [facility] Protocol Oxycodone HCl 5 mg 08/27/20 16:12 09/03/20 15:01 Oxycodone Hcl Immed Release 5 Mg Tablet PO 5 mg Q4H PRN Administration Pain, Moderate (Pain Scale 4-6 Senna 17.2 mg 07/22/20 17:59 Sennosides 8.6 Mg Tablet PO DAILY PRN Constipation Allergies Allergies Allergy/AdvReac Type Severity Reaction Status Date / Time acetaminophen [From TYLENOL] Allergy Intermediate HIVES Verified 07/22/20 02:13 meperidine [From Demerol] Allergy Unknown Verified 07/22/20 02:10 Assessment & Plan Assessment & Plan (1) Fracture of greater tuberosity of left humerus: Status: Acute Code(s): S42.252A - Displaced fracture of greater tuberosity of left humerus, initial encounter for closed fracture Assessment and Plan: -Immobility to prevent rotator tear is the goal. Continue support sling -PRN pain medications (2) Schizoaffective disorder: Status: Acute Code(s): F25.9 - Schizoaffective disorder, unspecified Assessment and Plan: Continue with treatment plan: -Less interactive with Haldol decrease. Sedate with pain med and lorazepam. -Decrease Lorazepam to 0.5 mg bid -EKG/Labs next week to evaluate for Haldol increase. QTC elevation may have been an artifact. Greater than 50% of the session was spent on counseling and/or coordination of care Reason for contiued inpatient stay Substantial Risk for: inability to function, rapid decompensation and med/psych decompensation
[2020-09-03] MEDS: HaloperidoL 5 MG TABLET PO (21:13)
[2020-09-03] MEDS: LORazepam 0.5 MG TABLET PO (21:13)
[2020-09-04] MEDS: oxyCODONE HCl Immed Release 5 MG TABLET PO ×3 (02:51→20:25)
[2020-09-04 06:35] VITALS: RESP 18
[2020-09-04 08:37] VITALS: BP 110/55; PULSE 77
[2020-09-04 08:47] VITALS: BP 110/55; PULSE 77
[2020-09-04 08:52] VITALS: BP 110/55; PULSE 77
[2020-09-04] MEDS: metroNIDAZOLE 0.75 % Gel 45 GM TUBE 1 APPL TOPICAL (08:53)
--- NOTE | 2020-09-04 18:29 | P.PNPSI_ITS ---
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 Team is talking with her about medicine and treatment compliance prior to setting a d ischarge goal. Attending group, visable in milieu. Medication Compliance: Intermittent Side effects from medications: No Attending Groups: Yes Review of Systems Musculoskeletal: Reports other (Humerus Fracture) Reports behavioral changes and Reports confusion Psychiatric: Reports behavioral changes, Reports confusion, Reports irritability, Reports mood swings and Reports paranoia Mental Status Exam Mental Status Exam Patient Appearance: Appropriate Patient Orientation: Person, Place and Situation Level of Consciousness: Alert Patient Behavior: Appropriate, Guarded, Talkative, Cooperative, Suspicious, Anxious, Sedated, Resistive to Care, Avoidant, Fatigued, Distractible, Isolative and Good Eye Contact Mood Description: Labile Affect Description: Labile Patient Cognition Impaired: No Ability to Follow Directions: Fair Speech Pattern: Spontaneous Speech Memory Description: Remote Impaired and Episodic Impaired Hallucinations: None Delusions: Present Thought Process: Distracted and Rumination Thought Content: positive for [place], positive for Circumstantial and positive for Perseveration Depressive Symptoms: Increased Irritability, Loss of Int. in Activity and Loss of Energy Judgement: Poor Diagnostics Vital Signs (24Hr): Vital Signs - 24 hr 09/04/20 06:35 09/04/20 08:37 09/04/20 08:47 Pulse Rate 77 77 Respiratory Rate 18 Blood Pressure 110/55 L 110/55 L 09/04/20 08:52 Pulse Rate 77 Respiratory Rate Blood Pressure 110/55 L Body Mass Index 0.0 Labs Results: 07/31/20 13:55 08/25/20 20:31 Imaging Radiology Impressions: ITS Impressions Humerus X-Ray 08/26/20 00:00 IMPRESSION: Nondisplaced fracture of the humeral head tuberosity. Medications Medications Current Medications Generic Name Dose Route Start Last Admin Trade Name Freq PRN Reason Stop Dose Admin Al Hydroxide/Mg Hydroxide 30 ml 07/22/20 16:17 Magnesium Hydrox/Alum Hydrox 30 Ml Oral.Susp PO Q6H PRN Heartburn/Nausea Haloperidol 5 mg 08/16/20 19:09 09/01/20 11:04 Haloperidol 5 Mg Tablet PO 5 mg BID PRN Administration Psychosis Haloperidol 5 mg 08/26/20 21:00 09/03/20 21:13 Haloperidol 5 Mg Tablet PO 5 mg BEDTIME [facility] Administration Haloperidol Lactate 5 mg 08/26/20 18:57 08/30/20 20:36 Haloperidol Lactate 5 Mg/Ml Vial IM 5 mg BEDTIME PRN Administration Refusal of court order Ibuprofen 800 mg 08/26/20 01:21 09/01/20 10:21 Ibuprofen 800 Mg Tablet PO 800 mg Q8H PRN Administration Pain, Moderate (Pain Scale 4-6 Lisinopril 5 mg 07/23/20 09:00 09/04/20 08:52 Lisinopril 5 Mg Tablet PO Not Given DAILY [facility] Protocol Lorazepam 0.5 mg 09/01/20 21:00 09/04/20 08:53 Lorazepam 0.5 Mg Tablet PO Not Given BID [facility] Lorazepam 0.5 mg 09/01/20 10:43 Lorazepam 2 Mg/Ml Vial IM BID PRN if pt refuses PO per court ord Magnesium Hydroxide 30 ml 07/22/20 16:17 Milk Of Magnesia 30 Ml Oral.Susp PO DAILY PRN Constipation Melatonin 3 mg 07/22/20 17:58 09/02/20 21:04 Melatonin 3 Mg Tablet PO 3 mg BEDTIME PRN Administration Insomnia Metoprolol Tartrate 25 mg 07/22/20 21:00 09/04/20 08:47 Metoprolol Tartrate 25 Mg Tablet PO Not Given BID [facility] Protocol Metronidazole 1 appl 08/14/20 09:00 09/04/20 08:53 Metronidazole 0.75 % Gel 45 Gm Tube TOPICAL 1 appl BID [facility] Administration Multivitamins/Vitamin C 1 tab 07/23/20 09:00 09/04/20 08:53 Multivitamin Tablet PO Not Given DAILY [facility] Nystatin 1 appl 07/22/20 21:00 09/04/20 09:13 Nystatin Powder 15 Gm Bottle TOPICAL Not Given BID [facility] Protocol Oxycodone HCl 5 mg 08/27/20 16:12 09/04/20 14:10 Oxycodone Hcl Immed Release 5 Mg Tablet PO 5 mg Q4H PRN Administration Pain, Moderate (Pain Scale 4-6 Senna 17.2 mg 07/22/20 17:59 Sennosides 8.6 Mg Tablet PO DAILY PRN Constipation Allergies Allergies Allergy/AdvReac Type Severity Reaction Status Date / Time acetaminophen [From TYLENOL] Allergy Intermediate HIVES Verified 07/22/20 02:13 meperidine [From Demerol] Allergy Unknown Verified 07/22/20 02:10 Assessment & Plan Assessment & Plan (1) Fracture of greater tuberosity of left humerus: Status: Acute Code(s): S42.252A - Displaced fracture of greater tuberosity of left humerus, initial encounter for closed fracture (2) Schizoaffective disorder: Status: Acute Code(s): F25.9 - Schizoaffective disorder, unspecified Assessment and Plan: Increase of awareness, activity and participation. Asking appropriate questions. Continue plan of care. Greater than 50% of the session was spent on counseling and/or coordination of care Reason for contiued inpatient stay Substantial Risk for: harm to self, harm to others, inability to function, rapid decompensation and med/psych decompensation
[2020-09-04] MEDS: Melatonin 3 MG TABLET PO (20:26)
[2020-09-04] MEDS: LORazepam 0.5 MG TABLET PO (20:27)
[2020-09-04] MEDS: HaloperidoL 5 MG TABLET PO (20:27)
[2020-09-05 06:00] VITALS: RESP 18
[2020-09-05 09:18] VITALS: BP 121/61; PULSE 84
[2020-09-05] MEDS: Metoprolol Tartrate 25 MG TABLET PO (09:18)
[2020-09-05] MEDS: Multivitamin TABLET 1 TAB PO (09:18)
[2020-09-05] MEDS: LORazepam 0.5 MG TABLET PO ×2 (09:19→22:07)
[2020-09-05] MEDS: oxyCODONE HCl Immed Release 5 MG TABLET PO ×2 (09:21→17:32)
--- NOTE | 2020-09-05 18:40 | HO.PSYCHPN ---
Subjective Subjective Date of Service: 09/05/20 Reason For Visit: right shoulder pain Subjective Notes: Section 8 Interim History: Alert, interactive, spontaneous. Ambulating with team. Encouraged to position her arm so as to not hyperextend. Supportive sling requested Medication Compliance: Yes Side effects from medications: No Attending Groups: No Review of Systems Review of Systems Yes all other systems are reviewed and are negative, Unobtainable due to mental status and Other Musculoskeletal: Reports other (humerus fx) Reports behavioral changes Psychiatric: Reports behavioral changes, Reports depression and Reports irritability Mental Status Exam Mental Status Exam Narrative: Appearance: casually groomed, fair hygiene, in NAD Behavior: less guarded, minimal eye contact. Psychomotor: no agitation or retardation noted Speech: clear, slowed rate/rhythm/volume, minimally spontaneous TP: single word answers TC: cap gras delusions, paranoid delusions, Mood: okay Affect:constricted SI:denies HI:denies AH/VH:appears to be responding to internal stimuli Delusions:paranoid, cap gras. Insight/judgment:impaired x 2. Memory/cog: alert, impaired secondary to psychiatric symptoms. Patient Appearance: Appropriate Patient Orientation: Person, Place and Situation Level of Consciousness: Alert Patient Behavior: Appropriate, Guarded, Talkative, Cooperative, Suspicious, Anxious, Sedated, Resistive to Care, Avoidant, Fatigued, Distractible, Isolative and Good Eye Contact Mood Description: Labile Affect Description: Labile Patient Cognition Impaired: No Ability to Follow Directions: Fair Speech Pattern: Spontaneous Speech Memory Description: Remote Impaired and Episodic Impaired Diagnostics Vital Signs (24Hr): Vital Signs - 24 hr 09/05/20 06:00 09/05/20 09:18 Pulse Rate 84 Respiratory Rate 18 Blood Pressure 121/61 Body Mass Index 0.0 Labs Results: 07/31/20 13:55 08/25/20 20:31 Imaging Radiology Impressions: ITS Impressions Humerus X-Ray 08/26/20 00:00 IMPRESSION: Nondisplaced fracture of the humeral head tuberosity. Medications Medications Current Medications Generic Name Dose Route Start Last Admin Trade Name Freq PRN Reason Stop Dose Admin Al Hydroxide/Mg Hydroxide 30 ml 07/22/20 16:17 Magnesium Hydrox/Alum Hydrox 30 Ml Oral.Susp PO Q6H PRN Heartburn/Nausea Haloperidol 5 mg 08/16/20 19:09 09/01/20 11:04 Haloperidol 5 Mg Tablet PO 5 mg BID PRN Administration Psychosis Haloperidol 5 mg 08/26/20 21:00 09/04/20 20:27 Haloperidol 5 Mg Tablet PO 5 mg BEDTIME [facility] Administration Haloperidol Lactate 5 mg 08/26/20 18:57 08/30/20 20:36 Haloperidol Lactate 5 Mg/Ml Vial IM 5 mg BEDTIME PRN Administration Refusal of court order Ibuprofen 800 mg 08/26/20 01:21 09/01/20 10:21 Ibuprofen 800 Mg Tablet PO 800 mg Q8H PRN Administration Pain, Moderate (Pain Scale 4-6 Lisinopril 5 mg 07/23/20 09:00 09/05/20 09:18 Lisinopril 5 Mg Tablet PO 5 mg DAILY [facility] Administration Protocol Lorazepam 0.5 mg 09/01/20 21:00 09/05/20 09:19 Lorazepam 0.5 Mg Tablet PO 0.5 mg BID [facility] Administration Lorazepam 0.5 mg 09/01/20 10:43 Lorazepam 2 Mg/Ml Vial IM BID PRN if pt refuses PO per court ord Magnesium Hydroxide 30 ml 07/22/20 16:17 Milk Of Magnesia 30 Ml Oral.Susp PO DAILY PRN Constipation Melatonin 3 mg 07/22/20 17:58 09/04/20 20:26 Melatonin 3 Mg Tablet PO 3 mg BEDTIME PRN Administration Insomnia Metoprolol Tartrate 25 mg 07/22/20 21:00 09/05/20 09:18 Metoprolol Tartrate 25 Mg Tablet PO 25 mg BID [facility] Administration Protocol Metronidazole 1 appl 08/14/20 09:00 09/05/20 10:53 Metronidazole 0.75 % Gel 45 Gm Tube TOPICAL Not Given BID [facility] Multivitamins/Vitamin C 1 tab 07/23/20 09:00 09/05/20 09:18 Multivitamin Tablet PO 1 tab DAILY [facility] Administration Nystatin 1 appl 07/22/20 21:00 09/05/20 09:20 Nystatin Powder 15 Gm Bottle TOPICAL Not Given BID [facility] Protocol Oxycodone HCl 5 mg 08/27/20 16:12 09/05/20 17:32 Oxycodone Hcl Immed Release 5 Mg Tablet PO 5 mg Q4H PRN Administration Pain, Moderate (Pain Scale 4-6 Senna 17.2 mg 07/22/20 17:59 Sennosides 8.6 Mg Tablet PO DAILY PRN Constipation Allergies Allergies Allergy/AdvReac Type Severity Reaction Status Date / Time acetaminophen [From TYLENOL] Allergy Intermediate HIVES Verified 07/22/20 02:13 meperidine [From Demerol] Allergy Unknown Verified 07/22/20 02:10 Assessment & Plan Assessment & Plan (1) Fracture of greater tuberosity of left humerus: Status: Acute Code(s): S42.252A - Displaced fracture of greater tuberosity of left humerus, initial encounter for closed fracture (2) Schizoaffective disorder: Status: Acute Code(s): F25.9 - Schizoaffective disorder, unspecified Assessment and Plan: Increase of awareness, activity and participation. Asking appropriate questions. Continue plan of care. Greater than 50% of the session was spent on counseling and/or coordination of care Reason for contiued inpatient stay Substantial Risk for: harm to self, harm to others, inability to function, rapid decompensation and med/psych decompensation
[2020-09-05] MEDS: HaloperidoL 5 MG TABLET PO (22:07)
[2020-09-06] MEDS: Melatonin 3 MG TABLET PO (03:05)
[2020-09-06] MEDS: oxyCODONE HCl Immed Release 5 MG TABLET PO ×2 (03:05→17:20)
[2020-09-06 06:00] VITALS: RESP 18
[2020-09-06 09:00] VITALS: BP 131/76; PULSE 80; RESP 16; TEMP 36.5; O2SAT 95
[2020-09-06 09:10] VITALS: BP 131/76; PULSE 80
[2020-09-06] MEDS: LORazepam 0.5 MG TABLET PO ×2 (09:10→20:58)
[2020-09-06] MEDS: Multivitamin TABLET 1 TAB PO (09:10)
[2020-09-06 12:52] VITALS: BP 131/76; PULSE 80
[2020-09-06] MEDS: Metoprolol Tartrate 25 MG TABLET PO (12:52)
--- NOTE | 2020-09-06 17:30 | HO.PSYCHPN ---
Subjective Subjective Date of Service: 09/06/20 Reason For Visit: right shoulder pain Subjective Notes: Section 8 Interim History: When can I go home? Can you call the house? I need some clothes. Pt singing in bed, laughing, interactive. Alert, in the milieu, walking with team. Discussed treatment and medicine compliance as being most important when discussing moving to the next step. Medication Compliance: Yes Side effects from medications: No Attending Groups: No Review of Systems Comments: Humerus Fx Mental Status Exam Mental Status Exam Patient Appearance: Disheveled Patient Orientation: Person, Place and Situation Level of Consciousness: Alert Patient Behavior: Talkative, Cooperative and Good Eye Contact Mood Description: Calm and Cheerful (singing) Affect Description: Calm Patient Cognition Impaired: Yes Ability to Follow Directions: Fair Speech Pattern: Spontaneous Speech and Soft-Spoken Memory Description: Episodic Impaired Hallucinations: None Delusions: Present Thought Process: Distracted Thought Content: positive for Loose Associations Depressive Symptoms: Unhappiness and Loss of Energy Judgement: Fair Diagnostics Vital Signs (24Hr): Vital Signs - 24 hr 09/06/20 06:00 09/06/20 09:00 09/06/20 09:10 Temperature 97.7 F Pulse Rate 80 80 Respiratory Rate 18 16 Blood Pressure 131/76 131/76 Pulse Oximetry 95 09/06/20 12:52 Temperature Pulse Rate 80 Respiratory Rate Blood Pressure 131/76 Pulse Oximetry Body Mass Index 0.0 Labs Results: 07/31/20 13:55 08/25/20 20:31 Imaging Radiology Impressions: ITS Impressions Humerus X-Ray 08/26/20 00:00 IMPRESSION: Nondisplaced fracture of the humeral head tuberosity. Medications Medications Current Medications Generic Name Dose Route Start Last Admin Trade Name Freq PRN Reason Stop Dose Admin Al Hydroxide/Mg Hydroxide 30 ml 07/22/20 16:17 Magnesium Hydrox/Alum Hydrox 30 Ml Oral.Susp PO Q6H PRN Heartburn/Nausea Haloperidol 5 mg 08/16/20 19:09 09/01/20 11:04 Haloperidol 5 Mg Tablet PO 5 mg BID PRN Administration Psychosis Haloperidol 5 mg 08/26/20 21:00 09/05/20 22:07 Haloperidol 5 Mg Tablet PO 5 mg BEDTIME [facility] Administration Haloperidol Lactate 5 mg 08/26/20 18:57 08/30/20 20:36 Haloperidol Lactate 5 Mg/Ml Vial IM 5 mg BEDTIME PRN Administration Refusal of court order Ibuprofen 800 mg 08/26/20 01:21 09/01/20 10:21 Ibuprofen 800 Mg Tablet PO 800 mg Q8H PRN Administration Pain, Moderate (Pain Scale 4-6 Lisinopril 5 mg 07/23/20 09:00 09/06/20 09:10 Lisinopril 5 Mg Tablet PO 5 mg DAILY [facility] Administration Protocol Lorazepam 0.5 mg 09/01/20 21:00 09/06/20 09:10 Lorazepam 0.5 Mg Tablet PO 0.5 mg BID [facility] Administration Lorazepam 0.5 mg 09/01/20 10:43 Lorazepam 2 Mg/Ml Vial IM BID PRN if pt refuses PO per court ord Magnesium Hydroxide 30 ml 07/22/20 16:17 Milk Of Magnesia 30 Ml Oral.Susp PO DAILY PRN Constipation Melatonin 3 mg 07/22/20 17:58 09/06/20 03:05 Melatonin 3 Mg Tablet PO 3 mg BEDTIME PRN Administration Insomnia Metoprolol Tartrate 25 mg 07/22/20 21:00 09/06/20 12:52 Metoprolol Tartrate 25 Mg Tablet PO 25 mg BID [facility] Administration Protocol Metronidazole 1 appl 08/14/20 09:00 09/06/20 12:52 Metronidazole 0.75 % Gel 45 Gm Tube TOPICAL Not Given BID [facility] Multivitamins/Vitamin C 1 tab 07/23/20 09:00 09/06/20 09:10 Multivitamin Tablet PO 1 tab DAILY [facility] Administration Nystatin 1 appl 07/22/20 21:00 09/06/20 12:53 Nystatin Powder 15 Gm Bottle TOPICAL Not Given BID [facility] Protocol Oxycodone HCl 5 mg 08/27/20 16:12 09/06/20 17:20 Oxycodone Hcl Immed Release 5 Mg Tablet PO 5 mg Q4H PRN Administration Pain, Moderate (Pain Scale 4-6 Senna 17.2 mg 07/22/20 17:59 Sennosides 8.6 Mg Tablet PO DAILY PRN Constipation Allergies Allergies Allergy/AdvReac Type Severity Reaction Status Date / Time acetaminophen [From TYLENOL] Allergy Intermediate HIVES Verified 07/22/20 02:13 meperidine [From Demerol] Allergy Unknown Verified 07/22/20 02:10 Assessment & Plan Assessment & Plan (1) Schizoaffective disorder: Status: Acute Code(s): F25.9 - Schizoaffective disorder, unspecified Assessment and Plan: -Improved today. -Attempt to reconnect pt with her residential team gradually. -Continue current regime. (2) Fracture of greater tuberosity of left humerus: Status: Acute Code(s): S42.252A - Displaced fracture of greater tuberosity of left humerus, initial encounter for closed fracture Assessment and Plan: -Ortho has offered two different types of slings to assist pt. Team is working with immobilizing sling today. Pt reports improved comfort and pain relief with this sling change. Greater than 50% of the session was spent on counseling and/or coordination of care Patient educated on: therapeutic strategies Informed Consent: understands and further education needed Reason for contiued inpatient stay Substantial Risk for: harm to self, harm to others, inability to function, rapid decompensation and med/psych decompensation
[2020-09-06] MEDS: HaloperidoL 5 MG TABLET PO (20:58)
[2020-09-07 06:00] VITALS: RESP 18
[2020-09-07] MEDS: LORazepam 0.5 MG TABLET PO ×2 (08:56→21:27)
[2020-09-07] MEDS: oxyCODONE HCl Immed Release 5 MG TABLET PO ×2 (08:56→21:31)
[2020-09-07 09:08] VITALS: BP 118/68; PULSE 80
[2020-09-07 09:09] VITALS: BP 118/68; PULSE 80
--- NOTE | 2020-09-07 12:52 | HO.PSYCHPN ---
Subjective Subjective Date of Service: 09/07/20 Reason For Visit: right shoulder pain Subjective Notes: Section 8 Interim History: Visable, more attentive to her environment and ADL's. Tells team and TW that she does not want to return to the shelter. Appears internally preoccupied at times, distant. Increasingly social-reports poor sleep-declines medicine prn-will offer again if she changes her mind. Accepting some PO meds, refusing others, i.e. antihypertensives-vital signs. Invega Sustenna IM due 09/11. Will order labs and ekg. Medication Compliance: Yes Side effects from medications: No Attending Groups: No Review of Systems Comments: Humerus fx Psychiatric: Reports abnormal sleep pattern, Reports difficulty concentrating, Reports irritability, Reports mood swings and Reports hallucinations Mental Status Exam Mental Status Exam Patient Appearance: Appropriate Patient Orientation: Person, Place and Situation Level of Consciousness: Alert Patient Behavior: Talkative, Cooperative, Resistive to Care (at times), Fatigued, Distractible, Isolative (at times) and Good Eye Contact Mood Description: Constricted Affect Description: Constricted Patient Cognition Impaired: No Ability to Follow Directions: Fair Speech Pattern: Spontaneous Speech and Soft-Spoken Memory Description: Remote Impaired and Episodic Impaired Hallucinations: None Delusions: Present Thought Process: Distracted and Rumination Thought Content: positive for [place], positive for Circumstantial, positive for Perseveration and positive for Tangential Depressive Symptoms: Insomnia, Difficulty Sleeping, Muscle Pain, Increased Fatigue and Difficulty Concentrating Judgement: Poor Diagnostics Vital Signs (24Hr): Vital Signs - 24 hr 09/07/20 06:00 09/07/20 09:08 09/07/20 09:09 Pulse Rate 80 80 Respiratory Rate 18 Blood Pressure 118/68 118/68 Body Mass Index 0.0 Labs Results: 07/31/20 13:55 08/25/20 20:31 Imaging Radiology Impressions: ITS Impressions Humerus X-Ray 08/26/20 00:00 IMPRESSION: Nondisplaced fracture of the humeral head tuberosity. Medications Medications Current Medications Generic Name Dose Route Start Last Admin Trade Name Freq PRN Reason Stop Dose Admin Al Hydroxide/Mg Hydroxide 30 ml 07/22/20 16:17 Magnesium Hydrox/Alum Hydrox 30 Ml Oral.Susp PO Q6H PRN Heartburn/Nausea Haloperidol 5 mg 08/16/20 19:09 09/01/20 11:04 Haloperidol 5 Mg Tablet PO 5 mg BID PRN Administration Psychosis Haloperidol 5 mg 08/26/20 21:00 09/06/20 20:58 Haloperidol 5 Mg Tablet PO 5 mg BEDTIME LOBITO Administration Haloperidol Lactate 5 mg 08/26/20 18:57 08/30/20 20:36 Haloperidol Lactate 5 Mg/Ml Vial IM 5 mg BEDTIME PRN Administration Refusal of court order Ibuprofen 800 mg 08/26/20 01:21 09/01/20 10:21 Ibuprofen 800 Mg Tablet PO 800 mg Q8H PRN Administration Pain, Moderate (Pain Scale 4-6 Lisinopril 5 mg 07/23/20 09:00 09/07/20 09:08 Lisinopril 5 Mg Tablet PO Not Given DAILY [facility] Protocol Lorazepam 0.5 mg 09/01/20 21:00 09/07/20 08:56 Lorazepam 0.5 Mg Tablet PO 0.5 mg BID LOBITO Administration Lorazepam 0.5 mg 09/01/20 10:43 Lorazepam 2 Mg/Ml Vial IM BID PRN if pt refuses PO per court ord Magnesium Hydroxide 30 ml 07/22/20 16:17 Milk Of Magnesia 30 Ml Oral.Susp PO DAILY PRN Constipation Melatonin 3 mg 07/22/20 17:58 09/06/20 03:05 Melatonin 3 Mg Tablet PO 3 mg BEDTIME PRN Administration Insomnia Metoprolol Tartrate 25 mg 07/22/20 21:00 09/07/20 09:09 Metoprolol Tartrate 25 Mg Tablet PO Not Given BID [facility] Protocol Metronidazole 1 appl 08/14/20 09:00 09/07/20 09:09 Metronidazole 0.75 % Gel 45 Gm Tube TOPICAL Not Given BID [facility] Multivitamins/Vitamin C 1 tab 07/23/20 09:00 09/07/20 09:09 Multivitamin Tablet PO Not Given DAILY [facility] Nystatin 1 appl 07/22/20 21:00 09/07/20 09:09 Nystatin Powder 15 Gm Bottle TOPICAL Not Given BID [facility] Protocol Oxycodone HCl 5 mg 08/27/20 16:12 09/07/20 08:56 Oxycodone Hcl Immed Release 5 Mg Tablet PO 5 mg Q4H PRN Administration Pain, Moderate (Pain Scale 4-6 Senna 17.2 mg 07/22/20 17:59 Sennosides 8.6 Mg Tablet PO DAILY PRN Constipation Allergies Allergies Allergy/AdvReac Type Severity Reaction Status Date / Time acetaminophen [From TYLENOL] Allergy Intermediate HIVES Verified 07/22/20 02:13 meperidine [From Demerol] Allergy Unknown Verified 07/22/20 02:10 Assessment & Plan Assessment & Plan (1) Fracture of greater tuberosity of left humerus: Status: Acute Code(s): S42.252A - Displaced fracture of greater tuberosity of left humerus, initial encounter for closed fracture Assessment and Plan: -Continue immobilizer sling -Pain mgt -Continues to report pain-with thought clarity she is more able to maintain and understand the need to immobilize (2) Schizoaffective disorder: Status: Acute Code(s): F25.9 - Schizoaffective disorder, unspecified Assessment and Plan: Gradual improvement. By history, family reports this takes about 3 months of treatment with [facility]. Due for injection on 09/11/20. Will prepare by getting EKG, labs. Pt is telling team that she does not want to return to her shelter. Will have a zoom meeting with them next week to begin to reaquaint with the residential team. Greater than 50% of the session was spent on counseling and/or coordination of care Patient educated on: therapeutic strategies Informed Consent: further education needed Reason for contiued inpatient stay Substantial Risk for: harm to self, harm to others, inability to function, rapid decompensation and med/psych decompensation
[2020-09-07 18:00] VITALS: BP 134/78; PULSE 101; RESP 18; TEMP 36.9; O2SAT 94
[2020-09-07] MEDS: HaloperidoL 5 MG TABLET PO ×2 (21:22→23:57)
[2020-09-07] MEDS: Melatonin 3 MG TABLET PO (21:31)
[2020-09-08] MEDS: oxyCODONE HCl Immed Release 5 MG TABLET PO ×3 (07:00→23:16)
[2020-09-08] MEDS: LORazepam 0.5 MG TABLET PO ×2 (09:05→21:13)
[2020-09-08] MEDS: Multivitamin TABLET 1 TAB PO (09:05)
--- NOTE | 2020-09-08 16:41 | P.PNPSI_ITS ---
Subjective Subjective Date of Service: 09/08/20 Reason For Visit: right shoulder pain Subjective Notes: Section 8 Interim History: Clear, calm, oriented, briefly engages however continues to appear internally preoccupied. Ambivalent about medication-sees/feels progress but compliance is still a difficult thought. Sleep is OK , some PETR, however pt is napping during the day. Attentive to appearance and clothing. Denies symptoms of anxiety/depression today. Invega Sustenna 234 mg due 09/11. Refused EKG and labs today. Will re-order tomorrow. Review of Systems Comments: Fx humerus-has immobilizer sling. Reports pain. Psychiatric: Reports abnormal sleep pattern, Reports difficulty concentrating and Reports hallucinations Mental Status Exam Mental Status Exam Patient Appearance: Appropriate Patient Orientation: Person, Place and Situation Level of Consciousness: Alert Patient Behavior: Talkative, Cooperative, Fatigued and Isolative Mood Description: Calm and Constricted Affect Description: Calm and Constricted Patient Cognition Impaired: Yes Ability to Follow Directions: Fair Speech Pattern: Spontaneous Speech and Soft-Spoken Memory Description: Remote Impaired and Episodic Impaired Hallucinations: None Delusions: Present Thought Process: Intact Thought Content: positive for Intact and positive for Circumstantial Judgement: Fair Diagnostics Vital Signs (24Hr): Vital Signs - 24 hr 09/07/20 18:00 Temperature 98.5 F Pulse Rate 101 H Respiratory Rate 18 Blood Pressure 134/78 Pulse Oximetry 94 Body Mass Index 0.0 Labs Results: 07/31/20 13:55 08/25/20 20:31 Imaging Radiology Impressions: ITS Impressions Humerus X-Ray 08/26/20 00:00 IMPRESSION: Nondisplaced fracture of the humeral head tuberosity. Medications Medications Current Medications Generic Name Dose Route Start Last Admin Trade Name Freq PRN Reason Stop Dose Admin Al Hydroxide/Mg Hydroxide 30 ml 07/22/20 16:17 Magnesium Hydrox/Alum Hydrox 30 Ml Oral.Susp PO Q6H PRN Heartburn/Nausea Haloperidol 5 mg 08/16/20 19:09 09/07/20 23:57 Haloperidol 5 Mg Tablet PO 5 mg BID PRN Administration Psychosis Haloperidol 5 mg 08/26/20 21:00 09/07/20 21:22 Haloperidol 5 Mg Tablet PO 5 mg BEDTIME LOBITO Administration Haloperidol Lactate 5 mg 08/26/20 18:57 08/30/20 20:36 Haloperidol Lactate 5 Mg/Ml Vial IM 5 mg BEDTIME PRN Administration Refusal of court order Ibuprofen 800 mg 08/26/20 01:21 09/01/20 10:21 Ibuprofen 800 Mg Tablet PO 800 mg Q8H PRN Administration Pain, Moderate (Pain Scale 4-6 Lisinopril 5 mg 07/23/20 09:00 09/08/20 09:40 Lisinopril 5 Mg Tablet PO Not Given DAILY [facility] Protocol Lorazepam 0.5 mg 09/01/20 21:00 09/08/20 09:05 Lorazepam 0.5 Mg Tablet PO 0.5 mg BID LOBITO Administration Lorazepam 0.5 mg 09/01/20 10:43 Lorazepam 2 Mg/Ml Vial IM BID PRN if pt refuses PO per court ord Magnesium Hydroxide 30 ml 07/22/20 16:17 Milk Of Magnesia 30 Ml Oral.Susp PO DAILY PRN Constipation Melatonin 3 mg 07/22/20 17:58 09/07/20 21:31 Melatonin 3 Mg Tablet PO 3 mg BEDTIME PRN Administration Insomnia Metoprolol Tartrate 25 mg 07/22/20 21:00 09/08/20 09:38 Metoprolol Tartrate 25 Mg Tablet PO Not Given BID [facility] Protocol Metronidazole 1 appl 08/14/20 09:00 09/08/20 09:38 Metronidazole 0.75 % Gel 45 Gm Tube TOPICAL Not Given BID [facility] Multivitamins/Vitamin C 1 tab 07/23/20 09:00 09/08/20 09:05 Multivitamin Tablet PO 1 tab DAILY [facility] Administration Nystatin 1 appl 07/22/20 21:00 09/08/20 09:38 Nystatin Powder 15 Gm Bottle TOPICAL Not Given BID [facility] Protocol Oxycodone HCl 5 mg 08/27/20 16:12 09/08/20 07:00 Oxycodone Hcl Immed Release 5 Mg Tablet PO 5 mg Q4H PRN Administration Pain, Moderate (Pain Scale 4-6 Paliperidone Palmitate 234 mg 09/11/20 09:00 Paliperidone Palmitate 234 Mg/1.5 Ml Syringe IM Q30D [facility] Senna 17.2 mg 07/22/20 17:59 Sennosides 8.6 Mg Tablet PO DAILY PRN Constipation Allergies Allergies Allergy/AdvReac Type Severity Reaction Status Date / Time acetaminophen [From TYLENOL] Allergy Intermediate HIVES Verified 07/22/20 02:13 meperidine [From Demerol] Allergy Unknown Verified 07/22/20 02:10 Assessment & Plan Assessment & Plan (1) Fracture of greater tuberosity of left humerus: Status: Acute Code(s): S42.252A - Displaced fracture of greater tuberosity of left humerus, initial encounter for closed fracture Assessment and Plan: -Continue immobilizer sling -Pain mgt -Continues to report pain-with thought clarity she is more able to maintain and understand the need to immobilize (2) Schizoaffective disorder: Status: Acute Code(s): F25.9 - Schizoaffective disorder, unspecified Assessment and Plan: Gradual improvement. By history, family reports this takes about 3 months of treatment with [facility]. Due for injection on 09/11/20, Invega Sustenna 234 mg. Refused EKG, labs today, will re-order for 09/09. Pt is telling team that she does not want to return to her [facility]. Will have a zoom meeting with them next week to begin to reaquaint with the residential team. Greater than 50% of the session was spent on counseling and/or coordination of care Reason for contiued inpatient stay Substantial Risk for: harm to self, harm to others, inability to function, rapid decompensation and med/psych decompensation
[2020-09-08] MEDS: HaloperidoL 5 MG TABLET PO (21:13)
[2020-09-08] MEDS: Melatonin 3 MG TABLET PO (21:13)
[2020-09-08] MEDS: Ibuprofen 800 MG TABLET PO (23:15)
[2020-09-09 06:00] VITALS: BP 123/49; PULSE 82; RESP 18; TEMP 35.9; O2SAT 97
[2020-09-09] MEDS: Multivitamin TABLET 1 TAB PO (08:51)
[2020-09-09] MEDS: LORazepam 0.5 MG TABLET PO ×2 (08:51→20:36)
[2020-09-09] MEDS: Ibuprofen 800 MG TABLET PO ×2 (09:02→20:36)
[2020-09-09] MEDS: oxyCODONE HCl Immed Release 5 MG TABLET PO ×3 (09:03→20:36)
--- NOTE | 2020-09-09 19:53 | HO.PSYCHPN ---
Subjective Subjective Date of Service: 09/09/20 Reason For Visit: right shoulder pain Subjective Notes: Section 8 Interim History: Interactive, visible in milieu. Improving. Mild lability. Increased attention to ADL's. Spontaneous conversation which is logical, concrete and goal oriented. Refused labs, EKG. Taking po meds, pain meds. Mostly refusing vital signs. Refuses monthly Invega, which is difficult as if pt needs restraint with humerus fx increases injury risk. Medication Compliance: Yes Side effects from medications: No Attending Groups: Intermittent Review of Systems Review of Systems Yes Unobtainable due to mental status (denies and refuses, difficult to restrain due to humerus fx.) Comments: Fractured humerus Reports behavioral changes Psychiatric: Reports behavioral changes and Reports depression Mental Status Exam Mental Status Exam Patient Appearance: Appropriate Patient Orientation: Person, Place, Time and Situation Level of Consciousness: Awake and Alert Patient Behavior: Guarded, Cooperative, Resistive to Care and Distractible Mood Description: Calm Affect Description: Flat Patient Cognition Impaired: No Ability to Follow Directions: Good Speech Pattern: Spontaneous Speech Memory Description: Remote Impaired, Immediate Impaired, [facility] Impaired and Episodic Impaired Hallucinations: None Delusions: Being Controlled Thought Process: Illogical Thought Content: positive for Circumstantial Depressive Symptoms: Diff. Making Decisions and Unhappiness Judgement: Poor Diagnostics Vital Signs (24Hr): Vital Signs - 24 hr 09/09/20 06:00 Temperature 96.7 F L Pulse Rate 82 Respiratory Rate 18 Blood Pressure 123/49 L Pulse Oximetry 97 Body Mass Index 0.0 Labs Results: 07/31/20 13:55 08/25/20 20:31 Imaging Radiology Impressions: ITS Impressions Humerus X-Ray 08/26/20 00:00 IMPRESSION: Nondisplaced fracture of the humeral head tuberosity. Medications Medications Current Medications Generic Name Dose Route Start Last Admin Trade Name Freq PRN Reason Stop Dose Admin Al Hydroxide/Mg Hydroxide 30 ml 07/22/20 16:17 Magnesium Hydrox/Alum Hydrox 30 Ml Oral.Susp PO Q6H PRN Heartburn/Nausea Haloperidol 5 mg 08/16/20 19:09 09/07/20 23:57 Haloperidol 5 Mg Tablet PO 5 mg BID PRN Administration Psychosis Haloperidol 5 mg 08/26/20 21:00 09/08/20 21:13 Haloperidol 5 Mg Tablet PO 5 mg BEDTIME LOBITO Administration Haloperidol Lactate 5 mg 08/26/20 18:57 08/30/20 20:36 Haloperidol Lactate 5 Mg/Ml Vial IM 5 mg BEDTIME PRN Administration Refusal of court order Ibuprofen 800 mg 08/26/20 01:21 09/09/20 09:02 Ibuprofen 800 Mg Tablet PO 800 mg Q8H PRN Administration Pain, Moderate (Pain Scale 4-6 Lisinopril 5 mg 07/23/20 09:00 09/09/20 09:52 Lisinopril 5 Mg Tablet PO Not Given DAILY [facility] Protocol Lorazepam 0.5 mg 09/01/20 21:00 09/09/20 08:51 Lorazepam 0.5 Mg Tablet PO 0.5 mg BID LOB[facility]O Administration Lorazepam 0.5 mg 09/01/20 10:43 Lorazepam 2 Mg/Ml Vial IM BID PRN if pt refuses PO per court ord Magnesium Hydroxide 30 ml 07/22/20 16:17 Milk Of Magnesia 30 Ml Oral.Susp PO DAILY PRN Constipation Melatonin 3 mg 07/22/20 17:58 09/08/20 21:13 Melatonin 3 Mg Tablet PO 3 mg BEDTIME PRN Administration Insomnia Metoprolol Tartrate 25 mg 07/22/20 21:00 09/09/20 09:53 Metoprolol Tartrate 25 Mg Tablet PO Not Given BID [facility] Protocol Metronidazole 1 appl 08/14/20 09:00 09/09/20 09:53 Metronidazole 0.75 % Gel 45 Gm Tube TOPICAL Not Given BID [facility] Multivitamins/Vitamin C 1 tab 07/23/20 09:00 09/09/20 08:51 Multivitamin Tablet PO 1 tab DAILY [facility] Administration Nystatin 1 appl 07/22/20 21:00 09/09/20 09:53 Nystatin Powder 15 Gm Bottle TOPICAL Not Given BID [facility] Protocol Oxycodone HCl 5 mg 08/27/20 16:12 09/09/20 16:24 Oxycodone Hcl Immed Release 5 Mg Tablet PO 5 mg Q4H PRN Administration Pain, Moderate (Pain Scale 4-6 Paliperidone Palmitate 234 mg 09/11/20 09:00 Paliperidone Palmitate 234 Mg/1.5 Ml Syringe IM Q30D [facility] Senna 17.2 mg 07/22/20 17:59 Sennosides 8.6 Mg Tablet PO DAILY PRN Constipation Allergies Allergies Allergy/AdvReac Type Severity Reaction Status Date / Time acetaminophen [From TYLENOL] Allergy Intermediate HIVES Verified 07/22/20 02:13 meperidine [From Demerol] Allergy Unknown Verified 07/22/20 02:10 Assessment & Plan Assessment & Plan (1) Fracture of greater tuberosity of left humerus: Status: Acute Code(s): S42.252A - Displaced fracture of greater tuberosity of left humerus, initial encounter for closed fracture Assessment and Plan: -Continue immobilizer sling -Pain mgt -Continues to report pain-with decreasing intensity (2) Schizoaffective disorder: Status: Acute Code(s): F25.9 - Schizoaffective disorder, unspecified Assessment and Plan: Gradual improvement. By history, family reports this takes about 3 months of treatment with [facility]. Due for injection on 09/11/20, Invega Sustenna 234 mg. Refused EKG, labs today, will re-order for 09/09. Pt is telling team that she does not want to return to her [place] [facility]. 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 Greater than 50% of the session was spent on counseling and/or coordination of care Reason for contiued inpatient stay Substantial Risk for: harm to self, harm to others, inability to function, rapid decompensation and med/psych decompensation
[2020-09-09 20:35] VITALS: BP 115/59; PULSE 86; TEMP 36.6
[2020-09-09 20:37] VITALS: BP 115/59; PULSE 86
[2020-09-09] MEDS: Metoprolol Tartrate 25 MG TABLET PO (20:37)
[2020-09-09] MEDS: HaloperidoL 5 MG TABLET PO (20:38)
[2020-09-10] MEDS: oxyCODONE HCl Immed Release 5 MG TABLET PO ×3 (04:53→20:51)
[2020-09-10 05:00] VITALS: BP 115/61; PULSE 95; RESP 18; TEMP 36.9; O2SAT 95
[2020-09-10] MEDS: LORazepam 0.5 MG TABLET PO ×2 (09:16→20:50)
[2020-09-10] MEDS: Multivitamin TABLET 1 TAB PO (09:17)
[2020-09-10] MEDS: Ibuprofen 800 MG TABLET PO (14:39)
[2020-09-10 18:43] VITALS: BP 136/90; PULSE 104; TEMP 36.8
--- NOTE | 2020-09-10 19:56 | HO.PSYCHPN ---
Subjective Subjective Date of Service: 09/10/20 Reason For Visit: right shoulder pain Subjective Notes: Section 8 Interim History: Discussed taking injection with pt. She agreed with the condition of being allowed reward of [employer], then declined, stating she does not want the medications. She is firm in her decision. Labile at times-precipitously cried with journalists and other writers when talking about leaving hospital to return to assisted, which today she is wanting to discharge to. Discussed needing medication compliance in order to return. Medication Compliance: Yes Side effects from medications: No Attending Groups: Yes Review of Systems Review of Systems Yes all other systems are reviewed and are negative Comments: R humerus fracture Reports behavioral changes Psychiatric: Reports behavioral changes and Reports mood swings Mental Status Exam Mental Status Exam Patient Appearance: Appropriate Patient Orientation: Person and Place Level of Consciousness: Alert Patient Behavior: Guarded, Talkative, Cooperative, Resistive to Care, Distractible and Good Eye Contact Mood Description: Flat Affect Description: Flat Patient Cognition Impaired: No Ability to Follow Directions: Fair Speech Pattern: Spontaneous Speech Memory Description: Remote Impaired, Immediate Impaired, Nursing Home Impaired and Episodic Impaired Hallucinations: None Delusions: Being Controlled Thought Process: Illogical Thought Content: positive for [place], positive for Circumstantial and positive for Perseveration Depressive Symptoms: Crying Spells Judgement: Poor Diagnostics Vital Signs (24Hr): Vital Signs - 24 hr 09/09/20 20:35 09/09/20 20:37 09/10/20 05:00 Temperature 97.9 F 98.5 F Pulse Rate 86 86 95 Respiratory Rate 18 Blood Pressure 115/59 L 115/59 L 115/61 Pulse Oximetry 95 09/10/20 18:43 Temperature 98.3 F Pulse Rate 104 H Respiratory Rate Blood Pressure 136/90 H Pulse Oximetry Body Mass Index 0.0 Labs Results: 07/31/20 13:55 08/25/20 20:31 Imaging Radiology Impressions: ITS Impressions Humerus X-Ray 08/26/20 00:00 IMPRESSION: Nondisplaced fracture of the humeral head tuberosity. Medications Medications Current Medications Generic Name Dose Route Start Last Admin Trade Name Freq PRN Reason Stop Dose Admin Al Hydroxide/Mg Hydroxide 30 ml 07/22/20 16:17 Magnesium Hydrox/Alum Hydrox 30 Ml Oral.Susp PO Q6H PRN Heartburn/Nausea Haloperidol 5 mg 08/16/20 19:09 09/07/20 23:57 Haloperidol 5 Mg Tablet PO 5 mg BID PRN Administration Psychosis Haloperidol 5 mg 08/26/20 21:00 09/09/20 20:38 Haloperidol 5 Mg Tablet PO 5 mg BEDTIME LOBITO Administration Haloperidol Lactate 5 mg 08/26/20 18:57 08/30/20 20:36 Haloperidol Lactate 5 Mg/Ml Vial IM 5 mg BEDTIME PRN Administration Refusal of court order Ibuprofen 800 mg 08/26/20 01:21 09/10/20 14:39 Ibuprofen 800 Mg Tablet PO 800 mg Q8H PRN Administration Pain, Moderate (Pain Scale 4-6 Lisinopril 5 mg 07/23/20 09:00 09/10/20 10:04 Lisinopril 5 Mg Tablet PO Not Given DAILY [facility] Protocol Lorazepam 0.5 mg 09/01/20 21:00 09/10/20 09:16 Lorazepam 0.5 Mg Tablet PO 0.5 mg BID [facility] Administration Magnesium Hydroxide 30 ml 07/22/20 16:17 Milk Of Magnesia 30 Ml Oral.Susp PO DAILY PRN Constipation Melatonin 3 mg 07/22/20 17:58 09/08/20 21:13 Melatonin 3 Mg Tablet PO 3 mg BEDTIME PRN Administration Insomnia Metoprolol Tartrate 25 mg 07/22/20 21:00 09/10/20 10:05 Metoprolol Tartrate 25 Mg Tablet PO Not Given BID [facility] Protocol Metronidazole 1 appl 08/14/20 09:00 09/10/20 10:07 Metronidazole 0.75 % Gel 45 Gm Tube TOPICAL Not Given BID [facility] Multivitamins/Vitamin C 1 tab 07/23/20 09:00 09/10/20 09:17 Multivitamin Tablet PO 1 tab DAILY [facility] Administration Nystatin 1 appl 07/22/20 21:00 09/10/20 10:08 Nystatin Powder 15 Gm Bottle TOPICAL Not Given BID [facility] Protocol Oxycodone HCl 5 mg 08/27/20 16:12 09/10/20 14:39 Oxycodone Hcl Immed Release 5 Mg Tablet PO 5 mg Q4H PRN Administration Pain, Moderate (Pain Scale 4-6 Paliperidone Palmitate 234 mg 09/11/20 09:00 Paliperidone Palmitate 234 Mg/1.5 Ml Syringe IM Q30D [facility] Senna 17.2 mg 07/22/20 17:59 Sennosides 8.6 Mg Tablet PO DAILY PRN Constipation Allergies Allergies Allergy/AdvReac Type Severity Reaction Status Date / Time acetaminophen [From TYLENOL] Allergy Intermediate HIVES Verified 07/22/20 02:13 meperidine [From Demerol] Allergy Unknown Verified 07/22/20 02:10 Assessment & Plan Assessment & Plan (1) Fracture of greater tuberosity of left humerus: Status: Acute Code(s): S42.252A - Displaced fracture of greater tuberosity of left humerus, initial encounter for closed fracture Assessment and Plan: -Continue immobilizer sling -Pain mgt -Continues to report pain-with thought clarity she is more able to maintain and understand the need to immobilize (2) Schizoaffective disorder: Status: Acute Code(s): F25.9 - Schizoaffective disorder, unspecified Assessment and Plan: Gradual improvement with increase in lability noted today. By history, family reports this takes about 3 months of treatment with [facility]. Due for injection on 09/11/20, Invega Sustenna 234 mg. Refused EKG, labs today. Refusing injection. Pt is telling team that she does want to return to her assisted. Will have a zoom meeting with them next week to begin to reaquaint with the residential team. Greater than 50% of the session was spent on counseling and/or coordination of care Reason for contiued inpatient stay Substantial Risk for: harm to self, harm to others, inability to function, rapid decompensation and med/psych decompensation
[2020-09-10 20:51] VITALS: BP 136/90; PULSE 104
[2020-09-10] MEDS: Metoprolol Tartrate 25 MG TABLET PO (20:51)
[2020-09-10] MEDS: HaloperidoL 5 MG TABLET PO (20:51)
[2020-09-11] MEDS: Multivitamin TABLET 1 TAB PO (08:51)
--- NOTE | 2020-09-11 13:36 | PC.NURSE ---
Pt refused vitals signs/ labs to be drawn / refused an EkG
[2020-09-11] MEDS: oxyCODONE HCl Immed Release 5 MG TABLET PO (14:56)
[2020-09-11 18:00] VITALS: BP 120/59; PULSE 86; TEMP 36.9
[2020-09-11] MEDS: Ibuprofen 800 MG TABLET PO (19:35)
[2020-09-11] MEDS: LORazepam 0.5 MG TABLET PO (20:15)
[2020-09-11] MEDS: HaloperidoL 5 MG TABLET PO (20:15)
--- NOTE | 2020-09-11 21:40 | P.PNPSI_ITS ---
Subjective Subjective Date of Service: 09/11/20 Reason For Visit: right shoulder pain Subjective Notes: Section 8 Interim History: Refusing INFANTE injection. Discussed with pt in each interaction over the past three days. She is alert, appears improved, pleased to have Zoom meeting with her residence. I have re-enforced that in order to discharge she needs to comply with treatment and medications. Nope, not true Celie. You are mistaken. Will need to do extensive planning to restrain given fx humerus for involvuntary IM Medication Compliance: Yes Side effects from medications: No Attending Groups: Yes Review of Systems Comments: Humerus Fx Reports behavioral changes and Reports confusion Psychiatric: Reports anxiety, Reports behavioral changes, Reports confusion, Reports depression, Reports difficulty concentrating and Reports irritability Mental Status Exam Mental Status Exam Patient Appearance: Appropriate Patient Orientation: Person and Place Level of Consciousness: Alert Patient Behavior: Guarded, Talkative, Suspicious, Resistive to Care, Distractible and Good Eye Contact Mood Description: Constricted Affect Description: Constricted Patient Cognition Impaired: Yes Ability to Follow Directions: Good Speech Pattern: Spontaneous Speech and Cofabulation Memory Description: Remote Impaired, Immediate Impaired, [place] Impaired and Episodic Impaired Hallucinations: None Delusions: Present Thought Process: Illogical and Distracted Thought Content: positive for Circumstantial, positive for Perseveration, positive for Thought Blocking and positive for Suicidal Ideation (denies) Depressive Symptoms: Sleeping More Than Usual, Increased Fatigue, Low Self Esteem and Loss of Energy Judgement: Poor Diagnostics Vital Signs (24Hr): Vital Signs - 24 hr 09/11/20 18:00 Temperature 98.4 F Pulse Rate 86 Blood Pressure 120/59 L Body Mass Index 0.0 Labs Results: 07/31/20 13:55 08/25/20 20:31 Imaging Radiology Impressions: ITS Impressions Humerus X-Ray 08/26/20 00:00 IMPRESSION: Nondisplaced fracture of the humeral head tuberosity. Medications Medications Current Medications Generic Name Dose Route Start Last Admin Trade Name Freq PRN Reason Stop Dose Admin Al Hydroxide/Mg Hydroxide 30 ml 07/22/20 16:17 Magnesium Hydrox/Alum Hydrox 30 Ml Oral.Susp PO Q6H PRN Heartburn/Nausea Haloperidol 5 mg 08/16/20 19:09 09/07/20 23:57 Haloperidol 5 Mg Tablet PO 5 mg BID PRN Administration Psychosis Haloperidol 5 mg 08/26/20 21:00 09/11/20 20:15 Haloperidol 5 Mg Tablet PO 5 mg BEDTIME [facility] Administration Haloperidol Lactate 5 mg 08/26/20 18:57 08/30/20 20:36 Haloperidol Lactate 5 Mg/Ml Vial IM 5 mg BEDTIME PRN Administration Refusal of court order Ibuprofen 800 mg 08/26/20 01:21 09/11/20 19:35 Ibuprofen 800 Mg Tablet PO 800 mg Q8H PRN Administration Pain, Moderate (Pain Scale 4-6 Lisinopril 5 mg 07/23/20 09:00 09/11/20 08:50 Lisinopril 5 Mg Tablet PO Not Given DAILY [facility] Protocol Lorazepam 0.5 mg 09/01/20 21:00 09/11/20 20:15 Lorazepam 0.5 Mg Tablet PO 0.5 mg BID [facility] Administration Magnesium Hydroxide 30 ml 07/22/20 16:17 Milk Of Magnesia 30 Ml Oral.Susp PO DAILY PRN Constipation Melatonin 3 mg 07/22/20 17:58 09/08/20 21:13 Melatonin 3 Mg Tablet PO 3 mg BEDTIME PRN Administration Insomnia Metoprolol Tartrate 25 mg 07/22/20 21:00 09/11/20 20:30 Metoprolol Tartrate 25 Mg Tablet PO Not Given BID [facility] Protocol Metronidazole 1 appl 08/14/20 09:00 09/11/20 20:30 Metronidazole 0.75 % Gel 45 Gm Tube TOPICAL Not Given BID [facility] Multivitamins/Vitamin C 1 tab 07/23/20 09:00 09/11/20 08:51 Multivitamin Tablet PO 1 tab DAILY [facility] Administration Nystatin 1 appl 07/22/20 21:00 09/11/20 20:31 Nystatin Powder 15 Gm Bottle TOPICAL Not Given BID [facility] Protocol Oxycodone HCl 5 mg 08/27/20 16:12 09/11/20 14:56 Oxycodone Hcl Immed Release 5 Mg Tablet PO 5 mg Q4H PRN Administration Pain, Moderate (Pain Scale 4-6 Paliperidone Palmitate 234 mg 09/11/20 09:00 09/11/20 10:32 Paliperidone Palmitate 234 Mg/1.5 Ml Syringe IM Not Given Q30D [facility] Senna 17.2 mg 07/22/20 17:59 Sennosides 8.6 Mg Tablet PO DAILY PRN Constipation Allergies Allergies Allergy/AdvReac Type Severity Reaction Status Date / Time acetaminophen [From TYLENOL] Allergy Intermediate HIVES Verified 07/22/20 02:13 meperidine [From Demerol] Allergy Unknown Verified 07/22/20 02:10 Assessment & Plan Assessment & Plan (1) Fracture of greater tuberosity of left humerus: Status: Acute Code(s): S42.252A - Displaced fracture of greater tuberosity of left humerus, initial encounter for closed fracture Assessment and Plan: -Continue immobilizer sling -Pain mgt -Continues to report pain-with thought clarity she is more able to maintain and understand the need to immobilize (2) Schizoaffective disorder: Status: Acute Code(s): F25.9 - Schizoaffective disorder, unspecified Assessment and Plan: Gradual improvement with increase in lability noted today. By history, family reports this takes about 3 months of treatment with INFANTE. Due for injection on 09/11/20, Invega Sustenna 234 mg. Refused EKG, labs today. Refusing injection. Will need to plan with team for restraint in considertion of humerus fx. Pt is telling team that she does want to return to her retirement. Will have a zoom meeting with them next week to begin to reaquaint with the residential team. Greater than 50% of the session was spent on counseling and/or coordination of care Reason for contiued inpatient stay Substantial Risk for: harm to self, harm to others, inability to function, rapid decompensation and med/psych decompensation
--- NOTE | 2020-09-12 | ECG_ITS ---
Test Reason : CHECK QT Blood Pressure : / mmHG Vent. Rate : 080 BPM Atrial Rate : 080 BPM P-R Int : 174 ms QRS Dur : 080 ms QT Int : 388 ms P-R-T Axes : 063 -13 046 degrees QTc Int : 447 ms Normal sinus rhythm Normal ECG When compared with ECG of 27-AUG-2020 19:14, No significant change was found Referred By: Yifan Montano Electronically Signed By:Christopher Watts
[2020-09-12] MEDS: oxyCODONE HCl Immed Release 5 MG TABLET PO ×3 (08:41→19:48)
[2020-09-12] MEDS: Multivitamin TABLET 1 TAB PO (08:41)
[2020-09-12] MEDS: Ibuprofen 800 MG TABLET PO ×2 (09:15→20:44)
[2020-09-12] MEDS: metroNIDAZOLE 0.75 % Gel 45 GM TUBE 1 APPL TOPICAL (10:09)
[2020-09-12 10:16] LABS: MANUAL DIFF FLAG NO
[2020-09-12 10:19] LABS: Basophils Absolute Auto 0.1 X10*3/uL (0.0-0.2); Basophils Percent Auto 0.6 % (0-2); Eosinophils Absolute Auto 0.2 X10*3/uL (0.0-0.4); Eosinophils Percent Auto 1.9 % (0-4); Hematocrit 42.9 % (37-47); Hemoglobin 14.2 g/dl (12.0-16.0); Imm Gran Abs Auto 0.11 X10*3/uL (0.00-0.03); Imm Gran Pct Auto 0.9 % (0.0-0.4); Lymphocytes Absolute Auto 1.9 X10*3/uL (1.2-4.9); Lymphocytes Percent Auto 15.9 % (20-40); Mean Corpuscular HGB Conc 33.1 g/dl (31.0-35.0); Mean Corpuscular Hemoglobin 31.8 pg (27.0-33.0); Mean Platelet Volume 9.1 fL (9.4-12.3); Monocytes Absolute Auto 0.7 X10*3/uL (0.1-1.2); Neutrophils Absolute Auto 8.7 X10*3/uL (2.0-8.3); Neutrophils Percent Auto 74.7 % (45-73); Platelet Count 252 X10*3/uL (160-400); Red Blood Count 4.47 X10*6/uL (4.20-5.50); Red Cell Distribution Width 12.2 % (11.0-16.0); White Blood Count 11.6 X10*3/uL (4.8-10.8)
--- NOTE | 2020-09-12 12:17 | HO.PSYCHPN ---
Subjective Subjective Date of Service: 09/12/20 Reason For Visit: right shoulder pain Subjective Notes: Section 7 and Section 8 Interim History: The patient was assessed at bedside, she recently had a Zoom meeting and she came back very upset, refused to talk with this prescriber. Initially, at AM she was open to have bloodwork and EKG that she has been refusing but later she refused them. Medication Compliance: Yes (Court ordered) Side effects from medications: No Review of Systems Review of Systems Yes Unobtainable due to mental status Mental Status Exam Mental Status Exam Patient Appearance: Unkempt Patient Orientation: Person, Place, Time and Situation Level of Consciousness: Awake Patient Behavior: Guarded and Passive Mood Description: Withdrawn Affect Description: Depressed Patient Cognition Impaired: No Ability to Follow Directions: Fair Speech Pattern: Clear Thought Content: positive for Thought Blocking Judgement: Poor Diagnostics Vital Signs (24Hr): Vital Signs - 24 hr 09/11/20 18:00 Temperature 98.4 F Pulse Rate 86 Blood Pressure 120/59 L Body Mass Index 0.0 Labs Results: 09/12/20 10:07 08/25/20 20:31 Labs: Laboratory Results - last 48 hr 09/12/20 10:07 WBC 11.6 H RBC 4.47 Hgb 14.2 Hct 42.9 MCV 96.0 MCH 31.8 MCHC 33.1 RDW 12.2 Plt Count 252 MPV 9.1 L Immature Gran % (Auto) 0.9 H Neut % (Auto) 74.7 H Lymph % (Auto) 15.9 L [place] % (Auto) 6.0 Eos % (Auto) 1.9 Baso % (Auto) 0.6 Lymph # (Auto) 1.9 [place] # (Auto) 0.7 Eos # (Auto) 0.2 Baso # (Auto) 0.1 Abs Immat Gran (auto) 0.11 H Absolute Neuts (auto) 8.7 H Absolute Nucleated RBC 0.000 Nucleated RBC % (auto) 0.0 Imaging Radiology Impressions: ITS Impressions Humerus X-Ray 08/26/20 00:00 IMPRESSION: Nondisplaced fracture of the humeral head tuberosity. Medications Medications Current Medications Generic Name Dose Route Start Last Admin Trade Name Freq PRN Reason Stop Dose Admin Al Hydroxide/Mg Hydroxide 30 ml 07/22/20 16:17 Magnesium Hydrox/Alum Hydrox 30 Ml Oral.Susp PO Q6H PRN Heartburn/Nausea Haloperidol 5 mg 08/16/20 19:09 09/07/20 23:57 Haloperidol 5 Mg Tablet PO 5 mg BID PRN Administration Psychosis Haloperidol 5 mg 08/26/20 21:00 09/11/20 20:15 Haloperidol 5 Mg Tablet PO 5 mg BEDTIME L[facility] Administration Haloperidol Lactate 5 mg 08/26/20 18:57 08/30/20 20:36 Haloperidol Lactate 5 Mg/Ml Vial IM 5 mg BEDTIME PRN Administration Refusal of court order Ibuprofen 800 mg 08/26/20 01:21 09/11/20 19:35 Ibuprofen 800 Mg Tablet PO 800 mg Q8H PRN Administration Pain, Moderate (Pain Scale 4-6 Lisinopril 5 mg 07/23/20 09:00 09/12/20 08:40 Lisinopril 5 Mg Tablet PO Not Given DAILY [facility] Protocol Lorazepam 0.5 mg 09/01/20 21:00 09/12/20 08:40 Lorazepam 0.5 Mg Tablet PO Not Given BID [facility] Magnesium Hydroxide 30 ml 07/22/20 16:17 Milk Of Magnesia 30 Ml Oral.Susp PO DAILY PRN Constipation Melatonin 3 mg 07/22/20 17:58 09/08/20 21:13 Melatonin 3 Mg Tablet PO 3 mg BEDTIME PRN Administration Insomnia Metoprolol Tartrate 25 mg 07/22/20 21:00 09/12/20 08:40 Metoprolol Tartrate 25 Mg Tablet PO Not Given BID [facility] Protocol Metronidazole 1 appl 08/14/20 09:00 09/12/20 10:09 Metronidazole 0.75 % Gel 45 Gm Tube TOPICAL 1 appl BID [facility] Administration Multivitamins/Vitamin C 1 tab 07/23/20 09:00 09/12/20 08:41 Multivitamin Tablet PO 1 tab DAILY [facility] Administration Nystatin 1 appl 07/22/20 21:00 09/12/20 08:41 Nystatin Powder 15 Gm Bottle TOPICAL Not Given BID [facility] Protocol Oxycodone HCl 5 mg 08/27/20 16:12 09/12/20 08:41 Oxycodone Hcl Immed Release 5 Mg Tablet PO 5 mg Q4H PRN Administration Pain, Moderate (Pain Scale 4-6 Paliperidone Palmitate 234 mg 09/11/20 09:00 09/11/20 10:32 Paliperidone Palmitate 234 Mg/1.5 Ml Syringe IM Not Given Q30D [facility] Senna 17.2 mg 07/22/20 17:59 Sennosides 8.6 Mg Tablet PO DAILY PRN Constipation Allergies Allergies Allergy/AdvReac Type Severity Reaction Status Date / Time acetaminophen [From TYLENOL] Allergy Intermediate HIVES Verified 07/22/20 02:13 meperidine [From Demerol] Allergy Unknown Verified 07/22/20 02:10 Assessment & Plan Assessment & Plan (1) Fracture of greater tuberosity of left humerus: Status: Acute Code(s): S42.252A - Displaced fracture of greater tuberosity of left humerus, initial encounter for closed fracture Assessment and Plan: -Continue immobilizer sling -Pain mgt -Continues to report pain-with thought clarity she is more able to maintain and understand the need to immobilize (2) Schizoaffective disorder: Status: Acute Code(s): F25.9 - Schizoaffective disorder, unspecified Assessment and Plan: Gradual improvement with increase in lability noted today. By history, family reports this takes about 3 months of treatment with INFANTE. Due for injection on 09/11/20, Invega Sustenna 234 mg. Refused EKG again, labs today. Refusing injection. Will need to plan with team for restraint in considertion of humerus fx. Pt is telling team that she does want to return to her senior care. Will have a zoom meeting with them next week to begin to reaquaint with the residential team. Greater than 50% of the session was spent on counseling and/or coordination of care Reason for contiued inpatient stay Substantial Risk for: harm to self and inability to function
[2020-09-12 18:00] VITALS: BP 111/68; PULSE 89; RESP 18; TEMP 36.5; O2SAT 96
[2020-09-12] MEDS: Melatonin 3 MG TABLET PO (20:06)
[2020-09-12] MEDS: HaloperidoL 5 MG TABLET PO (20:06)
[2020-09-12] MEDS: LORazepam 0.5 MG TABLET PO (20:06)
[2020-09-13] MEDS: Multivitamin TABLET 1 TAB PO (09:13)
[2020-09-13] MEDS: Nystatin Powder 15 GM BOTTLE 1 APPL TOPICAL (09:22)
[2020-09-13 09:25] VITALS: BP 141/63; PULSE 78; RESP 16; O2SAT 98
[2020-09-13] MEDS: oxyCODONE HCl Immed Release 5 MG TABLET PO ×2 (12:14→17:54)
--- NOTE | 2020-09-13 14:41 | P.PNPSI_ITS ---
Subjective Subjective Date of Service: 09/13/20 Reason For Visit: right shoulder pain Subjective Notes: Section 8 Interim History: Labs/EKG completed. Alert, talkative, asking about going home. Reluctant to have IM-difficult issue as with humerus fx restraint is a risk. Medication Compliance: Yes Side effects from medications: No Attending Groups: Yes Review of Systems Comments: humerus fracture Reports behavioral changes Psychiatric: Reports anxiety, Reports behavioral changes, Reports depression, Reports difficulty concentrating, Reports auditory hallucinations, Reports hopelessness, Reports irritability, Reports anhedonia, Reports paranoia and Reports suicidal ideation Mental Status Exam Mental Status Exam Patient Appearance: Appropriate Patient Orientation: Person, Place, Time and Situation Level of Consciousness: Alert Patient Behavior: Cooperative and Good Eye Contact Mood Description: Anxious Affect Description: Anxious Patient Cognition Impaired: Yes Ability to Follow Directions: Good Speech Pattern: Perseverating, Spontaneous Speech and Soft-Spoken Memory Description: Remote Impaired, Immediate Impaired, Lang Interpreter Impaired and Episodic Impaired Hallucinations: None Delusions: Present Thought Process: Distracted and Rumination Thought Content: positive for [place] and positive for Circumstantial Depressive Symptoms: Increased Anxiety, Diff. Making Decisions, Increased Irritability, Hopelessness, Low Self Esteem and Difficulty Concentrating Abnormal Motor Activity Signs and Symptoms: Restlessness Judgement: Poor Diagnostics Vital Signs (24Hr): Vital Signs - 24 hr 09/12/20 18:00 09/13/20 09:25 Temperature 97.7 F Pulse Rate 89 78 Respiratory Rate 18 16 Blood Pressure 111/68 141/63 H Pulse Oximetry 96 98 Body Mass Index 0.0 Labs Results: 09/12/20 10:07 08/25/20 20:31 Labs: Laboratory Results - last 48 hr 09/12/20 10:07 WBC 11.6 H RBC 4.47 Hgb 14.2 Hct 42.9 MCV 96.0 MCH 31.8 MCHC 33.1 RDW 12.2 Plt Count 252 MPV 9.1 L Immature Gran % (Auto) 0.9 H Neut % (Auto) 74.7 H Lymph % (Auto) 15.9 L [place] % (Auto) 6.0 Eos % (Auto) 1.9 Baso % (Auto) 0.6 Lymph # (Auto) 1.9 [place] # (Auto) 0.7 Eos # (Auto) 0.2 Baso # (Auto) 0.1 Abs Immat Gran (auto) 0.11 H Absolute Neuts (auto) 8.7 H Absolute Nucleated RBC 0.000 Nucleated RBC % (auto) 0.0 Imaging Radiology Impressions: ITS Impressions Humerus X-Ray 08/26/20 00:00 IMPRESSION: Nondisplaced fracture of the humeral head tuberosity. Medications Medications Current Medications Generic Name Dose Route Start Last Admin Trade Name Freq PRN Reason Stop Dose Admin Al Hydroxide/Mg Hydroxide 30 ml 07/22/20 16:17 Magnesium Hydrox/Alum Hydrox 30 Ml Oral.Susp PO Q6H PRN Heartburn/Nausea Haloperidol 5 mg 08/16/20 19:09 09/07/20 23:57 Haloperidol 5 Mg Tablet PO 5 mg BID PRN Administration Psychosis Haloperidol 5 mg 08/26/20 21:00 09/12/20 20:06 Haloperidol 5 Mg Tablet PO 5 mg BEDTIME LOB[facility] Administration Haloperidol Lactate 5 mg 08/26/20 18:57 08/30/20 20:36 Haloperidol Lactate 5 Mg/Ml Vial IM 5 mg BEDTIME PRN Administration Refusal of court order Ibuprofen 800 mg 08/26/20 01:21 09/12/20 20:44 Ibuprofen 800 Mg Tablet PO 800 mg Q8H PRN Administration Pain, Moderate (Pain Scale 4-6 Lisinopril 5 mg 07/23/20 09:00 09/13/20 09:21 Lisinopril 5 Mg Tablet PO Not Given DAILY [facility] Protocol Lorazepam 0.5 mg 09/01/20 21:00 09/13/20 09:21 Lorazepam 0.5 Mg Tablet PO Not Given BID [facility] Magnesium Hydroxide 30 ml 07/22/20 16:17 Milk Of Magnesia 30 Ml Oral.Susp PO DAILY PRN Constipation Melatonin 3 mg 07/22/20 17:58 09/12/20 20:06 Melatonin 3 Mg Tablet PO 3 mg BEDTIME PRN Administration Insomnia Metoprolol Tartrate 25 mg 07/22/20 21:00 09/13/20 09:21 Metoprolol Tartrate 25 Mg Tablet PO Not Given BID [facility] Protocol Metronidazole 1 appl 08/14/20 09:00 09/13/20 09:22 Metronidazole 0.75 % Gel 45 Gm Tube TOPICAL Not Given BID [facility] Multivitamins/Vitamin C 1 tab 07/23/20 09:00 09/13/20 09:13 Multivitamin Tablet PO 1 tab DAILY [facility] Administration Nystatin 1 appl 07/22/20 21:00 09/13/20 09:22 Nystatin Powder 15 Gm Bottle TOPICAL 1 appl BID [facility] Administration Protocol Oxycodone HCl 5 mg 08/27/20 16:12 09/13/20 12:14 Oxycodone Hcl Immed Release 5 Mg Tablet PO 5 mg Q4H PRN Administration Pain, Moderate (Pain Scale 4-6 Paliperidone Palmitate 234 mg 09/11/20 09:00 09/11/20 10:32 Paliperidone Palmitate 234 Mg/1.5 Ml Syringe IM Not Given Q30D [facility] Senna 17.2 mg 07/22/20 17:59 Sennosides 8.6 Mg Tablet PO DAILY PRN Constipation Allergies Allergies Allergy/AdvReac Type Severity Reaction Status Date / Time acetaminophen [From TYLENOL] Allergy Intermediate HIVES Verified 07/22/20 02:13 meperidine [From Demerol] Allergy Unknown Verified 07/22/20 02:10 Assessment & Plan Assessment & Plan (1) Fracture of greater tuberosity of left humerus: Status: Acute Code(s): S42.252A - Displaced fracture of greater tuberosity of left humerus, initial encounter for closed fracture Assessment and Plan: -Continue immobilizer sling -Pain mgt -Continues to report pain-with thought clarity she is more able to maintain and understand the need to immobilize (2) Schizoaffective disorder: Status: Acute Code(s): F25.9 - Schizoaffective disorder, unspecified Assessment and Plan: Gradual improvement with increase in lability noted today. By history, family reports this takes about 3 months of treatment with INFANTE. Due for injection on 09/11/20, Invega Sustenna 234 mg. Labs/EKG done 09/12. Will order INFANTE for 09/14. Pt is telling team that she does [facility] her [facility]. Greater than 50% of the session was spent on counseling and/or coordination of care Reason for contiued inpatient stay Substantial Risk for: harm to self, harm to others, inability to function, rapid decompensation and med/psych decompensation
[2020-09-13 18:00] VITALS: BP 136/74; PULSE 76; RESP 16; TEMP 35.8; O2SAT 96
[2020-09-13 20:03] VITALS: BP 136/74; PULSE 76
[2020-09-13] MEDS: HaloperidoL 5 MG TABLET PO (20:03)
[2020-09-13] MEDS: Metoprolol Tartrate 25 MG TABLET PO (20:03)
[2020-09-13] MEDS: LORazepam 0.5 MG TABLET PO (20:03)
[2020-09-14] MEDS: Ibuprofen 800 MG TABLET PO ×2 (02:35→22:42)
[2020-09-14 06:00] VITALS: RESP 18
[2020-09-14 07:00] VITALS: BMI 42.0
[2020-09-14] MEDS: Nystatin Powder 15 GM BOTTLE 1 APPL TOPICAL (09:13)
[2020-09-14] MEDS: Multivitamin TABLET 1 TAB PO (09:13)
[2020-09-14] MEDS: oxyCODONE HCl Immed Release 5 MG TABLET PO (15:54)
[2020-09-14] MEDS: Paliperidone Palmitate 234 MG/1.5 ML SYRINGE IM (16:05)
--- NOTE | 2020-09-14 16:21 | P.PNPSI_ITS ---
Subjective Subjective Date of Service: 09/14/20 Reason For Visit: right shoulder pain Subjective Notes: Section 8 Interim History: Alert, interactive, visable on the unit. Remains resistant to treatment Medication Compliance: Yes Side effects from medications: No Attending Groups: Yes Review of Systems Comments: Humerus Fracture Reports behavioral changes and Reports confusion Psychiatric: Reports anxiety, Reports behavioral changes, Reports confusion, Reports auditory hallucinations, Reports hopelessness, Reports irritability, Reports anhedonia and Reports mood swings Mental Status Exam Mental Status Exam Patient Appearance: Appropriate Patient Orientation: Person, Place, Time and Situation Level of Consciousness: Alert Patient Behavior: Guarded and Suspicious Mood Description: Suspicious and Withdrawn Affect Description: Suspicious, Withdrawn and Flat Patient Cognition Impaired: Yes Ability to Follow Directions: Fair Speech Pattern: Spontaneous Speech, Soft-Spoken and Delayed Memory Description: Remote Impaired, Immediate Impaired, Skilled Nursing Impaired and Episodic Impaired Hallucinations: None Delusions: Present Thought Process: Distracted Thought Content: positive for Circumstantial Depressive Symptoms: Increased Anxiety, Diff. Making Decisions, Crying Spells, Hopelessness, Unhappiness, Low Self Esteem, Loss of Energy and Difficulty Concentrating Judgement: Fair Diagnostics Vital Signs (24Hr): Vital Signs - 24 hr 09/13/20 18:00 09/13/20 20:03 09/14/20 06:00 Temperature 96.4 F L Pulse Rate 76 76 Respiratory Rate 16 18 Blood Pressure 136/74 136/74 Pulse Oximetry 96 Body Mass Index 42.0 Labs Results: 09/12/20 10:07 08/25/20 20:31 Imaging Radiology Impressions: ITS Impressions Humerus X-Ray 08/26/20 00:00 IMPRESSION: Nondisplaced fracture of the humeral head tuberosity. Medications Medications Current Medications Generic Name Dose Route Start Last Admin Trade Name Freq PRN Reason Stop Dose Admin Al Hydroxide/Mg Hydroxide 30 ml 07/22/20 16:17 Magnesium Hydrox/Alum Hydrox 30 Ml Oral.Susp PO Q6H PRN Heartburn/Nausea Haloperidol 5 mg 08/16/20 19:09 09/07/20 23:57 Haloperidol 5 Mg Tablet PO 5 mg BID PRN Administration Psychosis Haloperidol 5 mg 08/26/20 21:00 09/13/20 20:03 Haloperidol 5 Mg Tablet PO 5 mg BEDTIME [facility] Administration Haloperidol Lactate 5 mg 08/26/20 18:57 08/30/20 20:36 Haloperidol Lactate 5 Mg/Ml Vial IM 5 mg BEDTIME PRN Administration Refusal of court order Ibuprofen 800 mg 08/26/20 01:21 09/14/20 02:35 Ibuprofen 800 Mg Tablet PO 800 mg Q8H PRN Administration Pain, Moderate (Pain Scale 4-6 Lisinopril 5 mg 07/23/20 09:00 09/14/20 09:14 Lisinopril 5 Mg Tablet PO Not Given DAILY [facility] Protocol Lorazepam 0.5 mg 09/01/20 21:00 09/14/20 09:14 Lorazepam 0.5 Mg Tablet PO Not Given BID [facility] Magnesium Hydroxide 30 ml 07/22/20 16:17 Milk Of Magnesia 30 Ml Oral.Susp PO DAILY PRN Constipation Melatonin 3 mg 07/22/20 17:58 09/12/20 20:06 Melatonin 3 Mg Tablet PO 3 mg BEDTIME PRN Administration Insomnia Metoprolol Tartrate 25 mg 07/22/20 21:00 09/14/20 09:15 Metoprolol Tartrate 25 Mg Tablet PO Not Given BID [facility] Protocol Metronidazole 1 appl 08/14/20 09:00 09/14/20 09:16 Metronidazole 0.75 % Gel 45 Gm Tube TOPICAL Not Given BID [facility] Multivitamins/Vitamin C 1 tab 07/23/20 09:00 09/14/20 09:13 Multivitamin Tablet PO 1 tab DAILY [facility] Administration Nystatin 1 appl 07/22/20 21:00 09/14/20 09:13 Nystatin Powder 15 Gm Bottle TOPICAL 1 appl BID [facility] Administration Protocol Oxycodone HCl 5 mg 09/14/20 10:30 09/14/20 15:54 Oxycodone Hcl Immed Release 5 Mg Tablet PO 5 mg Q4H PRN Administration Pain, Moderate (Pain Scale 4-6 Paliperidone Palmitate 234 mg 09/11/20 09:00 09/11/20 10:32 Paliperidone Palmitate 234 Mg/1.5 Ml Syringe IM Not Given Q30D [facility] Senna 17.2 mg 07/22/20 17:59 Sennosides 8.6 Mg Tablet PO DAILY PRN Constipation Allergies Allergies Allergy/AdvReac Type Severity Reaction Status Date / Time acetaminophen [From TYLENOL] Allergy Intermediate HIVES Verified 07/22/20 02:13 meperidine [From Demerol] Allergy Unknown Verified 07/22/20 02:10 Assessment & Plan Assessment & Plan (1) Fracture of greater tuberosity of left humerus: Status: Acute Code(s): S42.252A - Displaced fracture of greater tuberosity of left humerus, initial encounter for closed fracture Assessment and Plan: -Continue immobilizer sling -Pain mgt -Continues to report pain-with thought clarity she is more able to maintain and understand the need to immobilize (2) Schizoaffective disorder: Status: Acute Code(s): F25.9 - Schizoaffective disorder, unspecified Assessment and Plan: Gradual improvement with increase in lability noted today. By history, family reports this takes about 3 months of treatment with INFANTE. Due for injection on 09/11/20, Invega Sustenna 234 mg. Labs/EKG done 09/12. Will order INFANTE for 09/14. Pt is telling team that she does want to return to her [facility]. Greater than 50% of the session was spent on counseling and/or coordination of care Reason for contiued inpatient stay Substantial Risk for: harm to self, harm to others, inability to function, rapid decompensation and med/psych decompensation
[2020-09-15 06:00] VITALS: RESP 16
[2020-09-15] MEDS: Multivitamin TABLET 1 TAB PO (08:25)
[2020-09-15] MEDS: Ibuprofen 800 MG TABLET PO (08:28)
--- NOTE | 2020-09-15 13:38 | HO.PSYCHPN ---
Subjective Subjective Date of Service: 09/15/20 Reason For Visit: right shoulder pain Subjective Notes: Section 8 Interim History: INFANTE given 09/14. Pt up and visable in milieu-socializing with peers, team, participating in activities. Reports she is feeling OK. Medication Compliance: Yes Side effects from medications: No Attending Groups: Yes Review of Systems Review of Systems Yes Unobtainable due to mental status Reports behavioral changes Psychiatric: Reports behavioral changes and Reports paranoia Mental Status Exam Mental Status Exam Patient Appearance: Appropriate Patient Orientation: Person, Place and Situation Level of Consciousness: Alert Patient Behavior: Talkative, Passive, Suspicious, Resistive to Care, Distractible and Good Eye Contact Mood Description: Constricted Affect Description: Constricted Patient Cognition Impaired: Yes Ability to Follow Directions: Good Speech Pattern: Spontaneous Speech and Soft-Spoken Memory Description: Remote Impaired, Immediate Impaired, [facility] Impaired and Episodic Impaired Hallucinations: None Delusions: Paranoid Ideation Thought Process: Distracted Thought Content: positive for [place] and positive for Circumstantial Depressive Symptoms: Diff. Making Decisions, Crying Spells, Hopelessness, Unhappiness and Low Self Esteem Judgement: Fair Diagnostics Vital Signs (24Hr): Vital Signs - 24 hr 09/15/20 06:00 Respiratory Rate 16 Body Mass Index 42.0 Labs Results: 09/12/20 10:07 08/25/20 20:31 Imaging Radiology Impressions: ITS Impressions Humerus X-Ray 08/26/20 00:00 IMPRESSION: Nondisplaced fracture of the humeral head tuberosity. Medications Medications Current Medications Generic Name Dose Route Start Last Admin Trade Name Freq PRN Reason Stop Dose Admin Al Hydroxide/Mg Hydroxide 30 ml 07/22/20 16:17 Magnesium Hydrox/Alum Hydrox 30 Ml Oral.Susp PO Q6H PRN Heartburn/Nausea Haloperidol 5 mg 08/16/20 19:09 09/07/20 23:57 Haloperidol 5 Mg Tablet PO 5 mg BID PRN Administration Psychosis Haloperidol 5 mg 08/26/20 21:00 09/14/20 19:51 Haloperidol 5 Mg Tablet PO Not Given BEDTIME LOBITO Haloperidol Lactate 5 mg 08/26/20 18:57 08/30/20 20:36 Haloperidol Lactate 5 Mg/Ml Vial IM 5 mg BEDTIME PRN Administration Refusal of court order Ibuprofen 800 mg 08/26/20 01:21 09/15/20 08:28 Ibuprofen 800 Mg Tablet PO 800 mg Q8H PRN Administration Pain, Moderate (Pain Scale 4-6 Lisinopril 5 mg 07/23/20 09:00 09/15/20 08:55 Lisinopril 5 Mg Tablet PO Not Given DAILY [facility] Protocol Lorazepam 0.5 mg 09/01/20 21:00 09/15/20 08:55 Lorazepam 0.5 Mg Tablet PO Not Given BID [facility] Magnesium Hydroxide 30 ml 07/22/20 16:17 Milk Of Magnesia 30 Ml Oral.Susp PO DAILY PRN Constipation Melatonin 3 mg 07/22/20 17:58 09/12/20 20:06 Melatonin 3 Mg Tablet PO 3 mg BEDTIME PRN Administration Insomnia Metoprolol Tartrate 25 mg 07/22/20 21:00 09/15/20 08:55 Metoprolol Tartrate 25 Mg Tablet PO Not Given BID [facility] Protocol Metronidazole 1 appl 08/14/20 09:00 09/15/20 08:56 Metronidazole 0.75 % Gel 45 Gm Tube TOPICAL Not Given BID [facility] Multivitamins/Vitamin C 1 tab 07/23/20 09:00 09/15/20 08:25 Multivitamin Tablet PO 1 tab DAILY [facility] Administration Nystatin 1 appl 07/22/20 21:00 09/15/20 08:56 Nystatin Powder 15 Gm Bottle TOPICAL Not Given BID [facility] Protocol Oxycodone HCl 5 mg 09/14/20 10:30 09/14/20 15:54 Oxycodone Hcl Immed Release 5 Mg Tablet PO 5 mg Q4H PRN Administration Pain, Moderate (Pain Scale 4-6 Paliperidone Palmitate 234 mg 09/11/20 09:00 09/11/20 10:32 Paliperidone Palmitate 234 Mg/1.5 Ml Syringe IM Not Given Q30D [facility] Senna 17.2 mg 07/22/20 17:59 Sennosides 8.6 Mg Tablet PO DAILY PRN Constipation Allergies Allergies Allergy/AdvReac Type Severity Reaction Status Date / Time acetaminophen [From TYLENOL] Allergy Intermediate HIVES Verified 07/22/20 02:13 meperidine [From Demerol] Allergy Unknown Verified 07/22/20 02:10 Assessment & Plan Assessment & Plan (1) Fracture of greater tuberosity of left humerus: Status: Acute Code(s): S42.252A - Displaced fracture of greater tuberosity of left humerus, initial encounter for closed fracture Assessment and Plan: -Continue immobilizer sling -Pain mgt -Continues to report pain-with thought clarity she is more able to maintain and understand the need to immobilize (2) Schizoaffective disorder: Status: Acute Code(s): F25.9 - Schizoaffective disorder, unspecified Assessment and Plan: Gradual improvement with increase in lability noted today. By history, family reports this takes about 3 months of treatment with INFANTE. Invega Sustenna 234 mg given 09/14.. Labs/EKG done 09/12. Pt is telling team that she does want to return to her shelter. Greater than 50% of the session was spent on counseling and/or coordination of care Reason for contiued inpatient stay Substantial Risk for: harm to self, harm to others, inability to function, rapid decompensation and med/psych decompensation
[2020-09-15] MEDS: HaloperidoL 5 MG TABLET PO (21:00)
[2020-09-15] MEDS: LORazepam 0.5 MG TABLET PO (21:00)
[2020-09-15] MEDS: Nystatin Powder 15 GM BOTTLE 1 APPL TOPICAL (22:21)
[2020-09-16] MEDS: Ibuprofen 800 MG TABLET PO ×2 (08:39→20:51)
[2020-09-16] MEDS: Multivitamin TABLET 1 TAB PO (08:41)
[2020-09-16] MEDS: LORazepam 0.5 MG TABLET PO ×2 (08:41→20:50)
[2020-09-16] MEDS: oxyCODONE HCl Immed Release 5 MG TABLET PO ×3 (11:36→23:45)
--- NOTE | 2020-09-16 17:15 | P.PNPSI_ITS ---
Subjective Subjective Date of Service: 09/16/20 Reason For Visit: right shoulder pain Subjective Notes: Conditional Voluntary Interim History: Sivan was somewhat more shutdown today. She was however in behavioral control Medication Compliance: Yes Side effects from medications: No Attending Groups: No Review of Systems Acute medical concerns: No Medical Review of Systems: unchanged Mental Status Exam Mental Status Exam Patient Appearance: Appropriate Patient Orientation: Person, Place and Situation Level of Consciousness: Alert Patient Behavior: Guarded, Passive, Suspicious, Resistive to Care, Distractible and Good Eye Contact Mood Description: Constricted Affect Description: Constricted Patient Cognition Impaired: Yes Ability to Follow Directions: Good Speech Pattern: Spontaneous Speech and Soft-Spoken Memory Description: Remote Impaired, Immediate Impaired, [employer] Impaired and Episodic Impaired Hallucinations: None Delusions: Paranoid Ideation Thought Process: Distracted Thought Content: positive for [place], positive for Circumstantial, negative for Suicidal Ideation and negative for Homicidal Ideation Depressive Symptoms: Diff. Making Decisions, Crying Spells, Hopelessness, Unhappiness and Low Self Esteem Judgement: Fair Diagnostics Vital Signs (24Hr): Body Mass Index 42.0 Labs Results: 09/12/20 10:07 08/25/20 20:31 Imaging Radiology Impressions: ITS Impressions Humerus X-Ray 08/26/20 00:00 IMPRESSION: Nondisplaced fracture of the humeral head tuberosity. Medications Medications Current Medications Generic Name Dose Route Start Last Admin Trade Name Freq PRN Reason Stop Dose Admin Al Hydroxide/Mg Hydroxide 30 ml 07/22/20 16:17 Magnesium Hydrox/Alum Hydrox 30 Ml Oral.Susp PO Q6H PRN Heartburn/Nausea Haloperidol 5 mg 08/16/20 19:09 09/07/20 23:57 Haloperidol 5 Mg Tablet PO 5 mg BID PRN Administration Psychosis Haloperidol 5 mg 08/26/20 21:00 09/15/20 21:00 Haloperidol 5 Mg Tablet PO 5 mg BEDTIME LOBITO Administration Haloperidol Lactate 5 mg 08/26/20 18:57 08/30/20 20:36 Haloperidol Lactate 5 Mg/Ml Vial IM 5 mg BEDTIME PRN Administration Refusal of court order Ibuprofen 800 mg 08/26/20 01:21 09/16/20 08:39 Ibuprofen 800 Mg Tablet PO 800 mg Q8H PRN Administration Pain, Moderate (Pain Scale 4-6 Lisinopril 5 mg 07/23/20 09:00 09/16/20 10:37 Lisinopril 5 Mg Tablet PO Not Given DAILY [facility] Protocol Lorazepam 0.5 mg 09/01/20 21:00 09/16/20 08:41 Lorazepam 0.5 Mg Tablet PO 0.5 mg BID [facility] Administration Magnesium Hydroxide 30 ml 07/22/20 16:17 Milk Of Magnesia 30 Ml Oral.Susp PO DAILY PRN Constipation Melatonin 3 mg 07/22/20 17:58 09/12/20 20:06 Melatonin 3 Mg Tablet PO 3 mg BEDTIME PRN Administration Insomnia Metoprolol Tartrate 25 mg 07/22/20 21:00 09/16/20 10:38 Metoprolol Tartrate 25 Mg Tablet PO Not Given BID [facility] Protocol Metronidazole 1 appl 08/14/20 09:00 09/16/20 13:20 Metronidazole 0.75 % Gel 45 Gm Tube TOPICAL Not Given BID [facility] Multivitamins/Vitamin C 1 tab 07/23/20 09:00 09/16/20 08:41 Multivitamin Tablet PO 1 tab DAILY [facility] Administration Nystatin 1 appl 07/22/20 21:00 09/16/20 13:20 Nystatin Powder 15 Gm Bottle TOPICAL Not Given BID [facility] Protocol Oxycodone HCl 5 mg 09/14/20 10:30 09/16/20 11:36 Oxycodone Hcl Immed Release 5 Mg Tablet PO 5 mg Q4H PRN Administration Pain, Moderate (Pain Scale 4-6 Paliperidone Palmitate 234 mg 09/11/20 09:00 09/11/20 10:32 Paliperidone Palmitate 234 Mg/1.5 Ml Syringe IM Not Given Q30D [facility] Senna 17.2 mg 07/22/20 17:59 Sennosides 8.6 Mg Tablet PO DAILY PRN Constipation Allergies Allergies Allergy/AdvReac Type Severity Reaction Status Date / Time acetaminophen [From TYLENOL] Allergy Intermediate HIVES Verified 07/22/20 02:13 meperidine [From Demerol] Allergy Unknown Verified 07/22/20 02:10 Assessment & Plan Assessment & Plan (1) Fracture of greater tuberosity of left humerus: Status: Acute Code(s): S42.252A - Displaced fracture of greater tuberosity of left humerus, initial encounter for closed fracture (2) Schizoaffective disorder: Status: Acute Code(s): F25.9 - Schizoaffective disorder, unspecified Assessment and Plan: -Continue immobilizer sling -Pain mgt -Continues to report pain-with thought clarity she is more able to maintain and understand the need to immobilize Gradual improvement with increase in lability noted today. By history, family reports this takes about 3 months of treatment with INFANTE. Invega Sustenna 234 mg given 09/14.. Labs/EKG done 09/12. Pt is telling team that she does want to return to her [facility]. No change to current treatment plan Greater than 50% of the session was spent on counseling and/or coordination of care Reason for contiued inpatient stay Substantial Risk for: inability to function and rapid decompensation
[2020-09-16 18:22] VITALS: BP 135/73; PULSE 85; RESP 18; TEMP 37.2; O2SAT 97
[2020-09-16 20:31] VITALS: BP 130/61; PULSE 72; RESP 18; TEMP 36.7; O2SAT 95
[2020-09-16] MEDS: HaloperidoL 5 MG TABLET PO (20:50)
--- NOTE | 2020-09-16 21:02 | PC.NURSE ---
Sivan took her scheduled Haldol and Ativan. Patient refused Metoprolol. Am staff however marked off the 2100 dose in the morning as not given so this nurse could not record it. Patient also stated she used her cream and powder already today and did not need it again.
--- NOTE | 2020-09-16 23:20 | PC.NURSE ---
TOE-left large toe is is red and swollen with some discolored drainage noted. reports she had stubbed her toe and that it was painful. nails were long and required trimming.
[2020-09-17] MEDS: oxyCODONE HCl Immed Release 5 MG TABLET PO ×2 (12:48→19:18)
[2020-09-17 17:44] VITALS: BP 118/72; PULSE 88; RESP 18; TEMP 36.8; O2SAT 94
[2020-09-17] MEDS: Ibuprofen 800 MG TABLET PO (17:58)
--- NOTE | 2020-09-17 18:06 | P.PNPSI_ITS ---
Subjective Subjective Date of Service: 09/17/20 Reason For Visit: right shoulder pain Subjective Notes: Section 8 Interim History: Sivan was sullen, withdrawn but in behavioral control Medication Compliance: Yes Side effects from medications: No Attending Groups: No Review of Systems Acute medical concerns: No Medical Review of Systems: unchanged Mental Status Exam Mental Status Exam Patient Appearance: Appropriate Patient Orientation: Person, Place and Situation Level of Consciousness: Alert Patient Behavior: Guarded, Passive, Suspicious, Resistive to Care, Distractible and Good Eye Contact Mood Description: Constricted Affect Description: Constricted Patient Cognition Impaired: Yes Ability to Follow Directions: Good Speech Pattern: Spontaneous Speech and Soft-Spoken Memory Description: Remote Impaired, Immediate Impaired, [place] Impaired and Episodic Impaired Hallucinations: None Delusions: Paranoid Ideation Thought Process: Distracted Thought Content: positive for [place], positive for Circumstantial, negative for Suicidal Ideation and negative for Homicidal Ideation Depressive Symptoms: Diff. Making Decisions, Crying Spells, Hopelessness, Unhappiness and Low Self Esteem Judgement: Fair Diagnostics Vital Signs (24Hr): Vital Signs - 24 hr 09/16/20 18:22 09/16/20 20:31 09/17/20 17:44 Temperature 98.9 F 98.1 F 98.3 F Pulse Rate 85 72 88 Respiratory Rate 18 18 18 Blood Pressure 135/73 130/61 118/72 Pulse Oximetry 97 95 94 Body Mass Index 42.0 Labs Results: 09/12/20 10:07 08/25/20 20:31 Imaging Radiology Impressions: ITS Impressions Humerus X-Ray 08/26/20 00:00 IMPRESSION: Nondisplaced fracture of the humeral head tuberosity. Medications Medications Current Medications Generic Name Dose Route Start Last Admin Trade Name Freq PRN Reason Stop Dose Admin Al Hydroxide/Mg Hydroxide 30 ml 07/22/20 16:17 Magnesium Hydrox/Alum Hydrox 30 Ml Oral.Susp PO Q6H PRN Heartburn/Nausea Haloperidol 5 mg 08/16/20 19:09 09/07/20 23:57 Haloperidol 5 Mg Tablet PO 5 mg BID PRN Administration Psychosis Haloperidol 5 mg 08/26/20 21:00 09/16/20 20:50 Haloperidol 5 Mg Tablet PO 5 mg BEDTIME LOBITO Administration Haloperidol Lactate 5 mg 08/26/20 18:57 08/30/20 20:36 Haloperidol Lactate 5 Mg/Ml Vial IM 5 mg BEDTIME PRN Administration Refusal of court order Ibuprofen 800 mg 08/26/20 01:21 09/17/20 17:58 Ibuprofen 800 Mg Tablet PO 800 mg Q8H PRN Administration Pain, Moderate (Pain Scale 4-6 Lisinopril 5 mg 07/23/20 09:00 09/17/20 08:53 Lisinopril 5 Mg Tablet PO Not Given DAILY [facility] Protocol Lorazepam 0.5 mg 09/01/20 21:00 09/17/20 08:54 Lorazepam 0.5 Mg Tablet PO Not Given BID [facility] Magnesium Hydroxide 30 ml 07/22/20 16:17 Milk Of Magnesia 30 Ml Oral.Susp PO DAILY PRN Constipation Melatonin 3 mg 07/22/20 17:58 09/12/20 20:06 Melatonin 3 Mg Tablet PO 3 mg BEDTIME PRN Administration Insomnia Metoprolol Tartrate 25 mg 07/22/20 21:00 09/17/20 08:54 Metoprolol Tartrate 25 Mg Tablet PO Not Given BID [facility] Protocol Metronidazole 1 appl 08/14/20 09:00 09/17/20 08:54 Metronidazole 0.75 % Gel 45 Gm Tube TOPICAL Not Given BID [facility] Multivitamins/Vitamin C 1 tab 07/23/20 09:00 09/17/20 08:54 Multivitamin Tablet PO Not Given DAILY [facility] Nystatin 1 appl 07/22/20 21:00 09/17/20 08:54 Nystatin Powder 15 Gm Bottle TOPICAL Not Given BID [facility] Protocol Oxycodone HCl 5 mg 09/14/20 10:30 09/17/20 12:48 Oxycodone Hcl Immed Release 5 Mg Tablet PO 5 mg Q4H PRN Administration Pain, Moderate (Pain Scale 4-6 Paliperidone Palmitate 234 mg 09/11/20 09:00 09/11/20 10:32 Paliperidone Palmitate 234 Mg/1.5 Ml Syringe IM Not Given Q30D [facility] Senna 17.2 mg 07/22/20 17:59 Sennosides 8.6 Mg Tablet PO DAILY PRN Constipation Allergies Allergies Allergy/AdvReac Type Severity Reaction Status Date / Time acetaminophen [From TYLENOL] Allergy Intermediate HIVES Verified 07/22/20 02:13 meperidine [From Demerol] Allergy Unknown Verified 07/22/20 02:10 Assessment & Plan Assessment & Plan (1) Fracture of greater tuberosity of left humerus: Status: Acute Code(s): S42.252A - Displaced fracture of greater tuberosity of left humerus, initial encounter for closed fracture (2) Schizoaffective disorder: Status: Acute Code(s): F25.9 - Schizoaffective disorder, unspecified Assessment and Plan: -Continue immobilizer sling -Pain mgt -Continues to report pain-with thought clarity she is more able to maintain and understand the need to immobilize Gradual improvement with increase in lability noted today. By history, family reports this takes about 3 months of treatment with INF[facility]. Invega Sustenna 234 mg given 09/14.. Labs/EKG done 09/12. Pt is telling team that she does want to return to her intermediate. No change to current treatment plan Greater than 50% of the session was spent on counseling and/or coordination of care Patient educated on: diagnosis and medication risk/benefits Informed Consent: further education needed Reason for contiued inpatient stay Substantial Risk for: inability to function and rapid decompensation
[2020-09-17] MEDS: LORazepam 0.5 MG TABLET PO (21:05)
[2020-09-17] MEDS: Melatonin 3 MG TABLET PO (21:05)
[2020-09-17] MEDS: HaloperidoL 5 MG TABLET PO (21:05)
[2020-09-17] MEDS: Nystatin Powder 15 GM BOTTLE 1 APPL TOPICAL (21:09)
[2020-09-18] MEDS: Ibuprofen 800 MG TABLET PO ×2 (08:25→16:44)
[2020-09-18] MEDS: LORazepam 0.5 MG TABLET PO ×2 (08:26→20:57)
[2020-09-18] MEDS: Multivitamin TABLET 1 TAB PO (08:26)
[2020-09-18] MEDS: metroNIDAZOLE 0.75 % Gel 45 GM TUBE 1 APPL TOPICAL (09:25)
[2020-09-18 09:26] VITALS: BP 129/65; PULSE 87
[2020-09-18] MEDS: Nystatin Powder 15 GM BOTTLE 1 APPL TOPICAL (09:26)
[2020-09-18 09:27] VITALS: BP 129/65; PULSE 87
[2020-09-18] MEDS: oxyCODONE HCl Immed Release 5 MG TABLET PO ×2 (10:12→23:10)
--- NOTE | 2020-09-18 14:24 | P.PNPSI_ITS ---
Subjective Subjective Date of Service: 09/18/20 Reason For Visit: right shoulder pain Subjective Notes: Section 8 Interim History: Alert, attentive, visable in milieu, interactive. Asking when her next injection is due. Processing issues with her team-they report she is talking about the loss of her partner, Jhony. Medication Compliance: Yes Side effects from medications: No Attending Groups: Yes Review of Systems Musculoskeletal: Reports other Comments: Humerus Fracture-difficulty keeping the sling in position. Initiated opiates prn for pain on 08/27/20. Ortho team recommended 4 weeks of pain mgt which will complete on09/24/20. Mental Status Exam Mental Status Exam Patient Appearance: Appropriate Patient Orientation: Person, Place, Time and Situation Level of Consciousness: Alert Patient Behavior: Appropriate and Cooperative Mood Description: Calm Affect Description: Calm Patient Cognition Impaired: No Ability to Follow Directions: Good Speech Pattern: Spontaneous Speech and Soft-Spoken Memory Description: Remote Impaired and Episodic Impaired Hallucinations: None Delusions: Not Present Thought Process: Distracted and Goal Oriented Thought Content: positive for [place] and positive for Circumstantial Abnormal Motor Activity Signs and Symptoms: Restlessness Judgement: Fair Diagnostics Vital Signs (24Hr): Vital Signs - 24 hr 09/17/20 17:44 09/18/20 09:26 09/18/20 09:27 Temperature 98.3 F Pulse Rate 88 87 87 Respiratory Rate 18 Blood Pressure 118/72 129/65 129/65 Pulse Oximetry 94 Body Mass Index 42.0 Labs Results: 09/12/20 10:07 08/25/20 20:31 Imaging Radiology Impressions: ITS Impressions Humerus X-Ray 08/26/20 00:00 IMPRESSION: Nondisplaced fracture of the humeral head tuberosity. Medications Medications Current Medications Generic Name Dose Route Start Last Admin Trade Name Freq PRN Reason Stop Dose Admin Al Hydroxide/Mg Hydroxide 30 ml 07/22/20 16:17 Magnesium Hydrox/Alum Hydrox 30 Ml Oral.Susp PO Q6H PRN Heartburn/Nausea Haloperidol 5 mg 08/16/20 19:09 09/07/20 23:57 Haloperidol 5 Mg Tablet PO 5 mg BID PRN Administration Psychosis Haloperidol 5 mg 08/26/20 21:00 09/17/20 21:05 Haloperidol 5 Mg Tablet PO 5 mg BEDTIME LOBITO Administration Haloperidol Lactate 5 mg 08/26/20 18:57 08/30/20 20:36 Haloperidol Lactate 5 Mg/Ml Vial IM 5 mg BEDTIME PRN Administration Refusal of court order Ibuprofen 800 mg 08/26/20 01:21 09/18/20 08:25 Ibuprofen 800 Mg Tablet PO 800 mg Q8H PRN Administration Pain, Moderate (Pain Scale 4-6 Lisinopril 5 mg 07/23/20 09:00 09/18/20 09:26 Lisinopril 5 Mg Tablet PO Not Given DAILY [facility] Protocol Lorazepam 0.5 mg 09/01/20 21:00 09/18/20 08:26 Lorazepam 0.5 Mg Tablet PO 0.5 mg BID [facility] Administration Magnesium Hydroxide 30 ml 07/22/20 16:17 Milk Of Magnesia 30 Ml Oral.Susp PO DAILY PRN Constipation Melatonin 3 mg 07/22/20 17:58 09/17/20 21:05 Melatonin 3 Mg Tablet PO 3 mg BEDTIME PRN Administration Insomnia Metoprolol Tartrate 25 mg 07/22/20 21:00 09/18/20 09:27 Metoprolol Tartrate 25 Mg Tablet PO Not Given BID [facility] Protocol Metronidazole 1 appl 08/14/20 09:00 09/18/20 09:25 Metronidazole 0.75 % Gel 45 Gm Tube TOPICAL 1 appl BID [facility] Administration Multivitamins/Vitamin C 1 tab 07/23/20 09:00 09/18/20 08:26 Multivitamin Tablet PO 1 tab DAILY [facility] Administration Nystatin 1 appl 07/22/20 21:00 09/18/20 09:26 Nystatin Powder 15 Gm Bottle TOPICAL 1 appl BID [facility] Administration Protocol Oxycodone HCl 5 mg 09/14/20 10:30 09/18/20 10:12 Oxycodone Hcl Immed Release 5 Mg Tablet PO 5 mg Q4H PRN Administration Pain, Moderate (Pain Scale 4-6 Paliperidone Palmitate 234 mg 09/11/20 09:00 09/11/20 10:32 Paliperidone Palmitate 234 Mg/1.5 Ml Syringe IM Not Given Q30D [facility] Senna 17.2 mg 07/22/20 17:59 Sennosides 8.6 Mg Tablet PO DAILY PRN Constipation Allergies Allergies Allergy/AdvReac Type Severity Reaction Status Date / Time acetaminophen [From TYLENOL] Allergy Intermediate HIVES Verified 07/22/20 02:13 meperidine [From Demerol] Allergy Unknown Verified 02/27/21 02:10 Assessment & Plan Assessment & Plan (1) Fracture of greater tuberosity of left humerus: Status: Acute Code(s): S42.252A - Displaced fracture of greater tuberosity of left humerus, initial encounter for closed fracture (2) Schizoaffective disorder: Status: Acute Code(s): F25.9 - Schizoaffective disorder, unspecified Assessment and Plan: -Continue immobilizer sling -Pain mgt -Continues to report pain-with thought clarity she is more able to maintain and understand the need to immobilize Gradual improvement with increase in lability noted today. By history, family reports this takes about 3 months of treatment with [facility]. Invega Sustenna 234 mg given 09/14.. Labs/EKG done 09/12. Pt is telling team that she does want to return to her [facility]. No change to current treatment plan Greater than 50% of the session was spent on counseling and/or coordination of care Reason for contiued inpatient stay Substantial Risk for: harm to self, harm to others, inability to function, rapid decompensation and med/psych decompensation
[2020-09-18 20:00] VITALS: BP 141/80; PULSE 86; TEMP 36.6
[2020-09-18] MEDS: HaloperidoL 5 MG TABLET PO (20:57)
[2020-09-19 05:05] VITALS: BP 130/60; PULSE 100; RESP 18; TEMP 35.9; O2SAT 96
[2020-09-19] MEDS: oxyCODONE HCl Immed Release 5 MG TABLET PO ×2 (10:09→19:17)
[2020-09-19] MEDS: Multivitamin TABLET 1 TAB PO (10:09)
[2020-09-19] MEDS: Ibuprofen 800 MG TABLET PO (13:38)
--- NOTE | 2020-09-19 13:47 | P.PNPSI_ITS ---
Subjective Subjective Date of Service: 09/19/20 Reason For Visit: right shoulder pain Subjective Notes: Section 8 Interim History: Visable, attending groups, no questions for TW today. Appearing preoccupied at times. Discussed in team an increase in agitated, angry, labile sx/behaviors. Will re-start Haldol at bid 5 mg from 5 mg daily dosing. Medication Compliance: Yes Side effects from medications: No Attending Groups: Yes Review of Systems Review of Systems Yes all other systems are reviewed and are negative Reports behavioral changes Psychiatric: Reports behavioral changes, Reports depression, Reports auditory hallucinations, Reports irritability, Reports mood swings and Reports hallucinations Mental Status Exam Mental Status Exam Patient Appearance: Appropriate Patient Orientation: Person, Place, Time and Situation Level of Consciousness: Alert Patient Behavior: Guarded, Cooperative, Fatigued and Distractible Mood Description: Blunted Affect Description: Blunted Patient Cognition Impaired: Yes Ability to Follow Directions: Fair Speech Pattern: Spontaneous Speech Memory Description: Remote Impaired, Immediate Impaired and Mobile Home Technician Impaired Hallucinations: Auditory Delusions: Present Thought Process: Distracted Thought Content: positive for Dennis Depressive Symptoms: Increased Irritability Judgement: Fair Diagnostics Vital Signs (24Hr): Vital Signs - 24 hr 09/18/20 20:00 09/19/20 05:05 Temperature 97.8 F 96.7 F L Pulse Rate 86 100 Respiratory Rate 18 Blood Pressure 141/80 H 130/60 Pulse Oximetry 96 Body Mass Index 42.0 Labs Results: 09/12/20 10:07 08/25/20 20:31 Imaging Radiology Impressions: ITS Impressions Humerus X-Ray 08/26/20 00:00 IMPRESSION: Nondisplaced fracture of the humeral head tuberosity. Medications Medications Current Medications Generic Name Dose Route Start Last Admin Trade Name Freq PRN Reason Stop Dose Admin Al Hydroxide/Mg Hydroxide 30 ml 07/22/20 16:17 Magnesium Hydrox/Alum Hydrox 30 Ml Oral.Susp PO Q6H PRN Heartburn/Nausea Haloperidol 5 mg 08/16/20 19:09 09/07/20 23:57 Haloperidol 5 Mg Tablet PO 5 mg BID PRN Administration Psychosis Haloperidol 5 mg 08/26/20 21:00 09/18/20 20:57 Haloperidol 5 Mg Tablet PO 5 mg BEDTIME [facility] Administration Haloperidol Lactate 5 mg 08/26/20 18:57 08/30/20 20:36 Haloperidol Lactate 5 Mg/Ml Vial IM 5 mg BEDTIME PRN Administration Refusal of court order Ibuprofen 800 mg 08/26/20 01:21 09/19/20 13:38 Ibuprofen 800 Mg Tablet PO 800 mg Q8H PRN Administration Pain, Moderate (Pain Scale 4-6 Lisinopril 5 mg 07/23/20 09:00 09/19/20 10:09 Lisinopril 5 Mg Tablet PO Not Given DAILY [facility] Protocol Lorazepam 0.5 mg 09/01/20 21:00 09/19/20 10:10 Lorazepam 0.5 Mg Tablet PO Not Given BID [facility] Magnesium Hydroxide 30 ml 07/22/20 16:17 Milk Of Magnesia 30 Ml Oral.Susp PO DAILY PRN Constipation Melatonin 3 mg 07/22/20 17:58 09/17/20 21:05 Melatonin 3 Mg Tablet PO 3 mg BEDTIME PRN Administration Insomnia Metoprolol Tartrate 25 mg 07/22/20 21:00 09/19/20 10:10 Metoprolol Tartrate 25 Mg Tablet PO Not Given BID [facility] Protocol Metronidazole 1 appl 08/14/20 09:00 09/19/20 13:40 Metronidazole 0.75 % Gel 45 Gm Tube TOPICAL Not Given BID [facility] Multivitamins/Vitamin C 1 tab 07/23/20 09:00 09/19/20 10:09 Multivitamin Tablet PO 1 tab DAILY [facility] Administration Nystatin 1 appl 07/22/20 21:00 09/19/20 13:40 Nystatin Powder 15 Gm Bottle TOPICAL Not Given BID [facility] Protocol Oxycodone HCl 5 mg 09/14/20 10:30 09/19/20 10:09 Oxycodone Hcl Immed Release 5 Mg Tablet PO 5 mg Q4H PRN Administration Pain, Moderate (Pain Scale 4-6 Paliperidone Palmitate 234 mg 09/11/20 09:00 09/11/20 10:32 Paliperidone Palmitate 234 Mg/1.5 Ml Syringe IM Not Given Q30D [facility] Senna 17.2 mg 07/22/20 17:59 Sennosides 8.6 Mg Tablet PO DAILY PRN Constipation Allergies Allergies Allergy/AdvReac Type Severity Reaction Status Date / Time acetaminophen [From TYLENOL] Allergy Intermediate HIVES Verified 07/22/20 02:13 meperidine [From Demerol] Allergy Unknown Verified 07/22/20 02:10 Assessment & Plan Assessment & Plan (1) Fracture of greater tuberosity of left humerus: Status: Acute Code(s): S42.252A - Displaced fracture of greater tuberosity of left humerus, initial encounter for closed fracture (2) Schizoaffective disorder: Status: Acute Code(s): F25.9 - Schizoaffective disorder, unspecified Assessment and Plan: -Continue immobilizer sling -Pain mgt -Continues to report pain-with thought clarity she is more able to maintain and understand the need to immobilize Gradual improvement with increase in lability, irritability and anger. By history, family reports this takes about 3 months of treatment with [facility]. Will increase Haldol to 5 mg bid from 5 mg daily Invega Sustenna 234 mg given 09/14.. Labs/EKG done 09/12. Pt is telling team that she does not want to return to her [facility]. Greater than 50% of the session was spent on counseling and/or coordination of care Reason for contiued inpatient stay Substantial Risk for: harm to self, harm to others, inability to function, rapid decompensation and med/psych decompensation
[2020-09-19 19:50] VITALS: BP 137/75; PULSE 85; TEMP 36.4
[2020-09-19] MEDS: LORazepam 0.5 MG TABLET PO (20:00)
[2020-09-19] MEDS: HaloperidoL 5 MG TABLET PO (20:00)
[2020-09-19 20:01] VITALS: BP 137/75; PULSE 85
[2020-09-19] MEDS: Metoprolol Tartrate 25 MG TABLET PO (20:01)
[2020-09-20] MEDS: Multivitamin TABLET 1 TAB PO (09:58)
[2020-09-20] MEDS: HaloperidoL 5 MG TABLET PO ×2 (09:58→21:04)
--- NOTE | 2020-09-20 11:39 | P.PNPSI_ITS ---
Subjective Subjective Date of Service: 09/20/20 Reason For Visit: right shoulder pain Subjective Notes: Section 8 Interim History: Guarded, paranoid, confrontive. Ambivalent about what she wants, unsure if team is real or imposter. No questions for TW today. Medication Compliance: Yes Side effects from medications: No Attending Groups: Intermittent Review of Systems Comments: Humerus fracture Reports behavioral changes and Reports confusion Psychiatric: Reports anxiety, Reports behavioral changes, Reports confusion, Reports difficulty concentrating, Reports auditory hallucinations, Reports irritability, Reports mood swings, Reports paranoia and Reports hallucinations Mental Status Exam Mental Status Exam Patient Appearance: Appropriate Patient Orientation: Person and Place Level of Consciousness: Awake and Alert Patient Behavior: Guarded, Talkative, Suspicious, Restless, Anxious, Resistive to Care, Avoidant, Distractible, Confused, Good Eye Contact, Impulsive and Poor Eye Contact Mood Description: Constricted Affect Description: Constricted Patient Cognition Impaired: Yes Ability to Follow Directions: Fair Speech Pattern: Spontaneous Speech, Soft-Spoken and Cofabulation Memory Description: Remote Impaired, Immediate Impaired, 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 Making Decisions, Increased Irritability and Difficulty Concentrating Judgement: Poor Diagnostics Vital Signs (24Hr): Vital Signs - 24 hr 09/19/20 19:50 09/19/20 20:01 Temperature 97.6 F Pulse Rate 85 85 Blood Pressure 137/75 137/75 Body Mass Index 42.0 Labs Results: 09/12/20 10:07 08/25/20 20:31 Imaging Radiology Impressions: ITS Impressions Humerus X-Ray 08/26/20 00:00 IMPRESSION: Nondisplaced fracture of the humeral head tuberosity. Medications Medications Current Medications Generic Name Dose Route Start Last Admin Trade Name Freq PRN Reason Stop Dose Admin Al Hydroxide/Mg Hydroxide 30 ml 07/22/20 16:17 Magnesium Hydrox/Alum Hydrox 30 Ml Oral.Susp PO Q6H PRN Heartburn/Nausea Haloperidol 5 mg 08/16/20 19:09 09/07/20 23:57 Haloperidol 5 Mg Tablet PO 5 mg BID PRN Administration Psychosis Haloperidol 5 mg 09/19/20 21:00 09/20/20 09:58 Haloperidol 5 Mg Tablet PO 5 mg BID [facility] Administration Haloperidol Lactate 5 mg 09/19/20 16:47 Haloperidol Lactate 5 Mg/Ml Vial IM BID PRN If pt ref PO per court order Ibuprofen 800 mg 08/26/20 01:21 09/19/20 13:38 Ibuprofen 800 Mg Tablet PO 800 mg Q8H PRN Administration Pain, Moderate (Pain Scale 4-6 Lisinopril 5 mg 07/23/20 09:00 09/20/20 10:01 Lisinopril 5 Mg Tablet PO Not Given DAILY [facility] Protocol Lorazepam 0.5 mg 09/01/20 21:00 09/20/20 10:00 Lorazepam 0.5 Mg Tablet PO Not Given BID [facility] Magnesium Hydroxide 30 ml 07/22/20 16:17 Milk Of Magnesia 30 Ml Oral.Susp PO DAILY PRN Constipation Melatonin 3 mg 07/22/20 17:58 09/17/20 21:05 Melatonin 3 Mg Tablet PO 3 mg BEDTIME PRN Administration Insomnia Metoprolol Tartrate 25 mg 07/22/20 21:00 09/20/20 10:00 Metoprolol Tartrate 25 Mg Tablet PO Not Given BID [facility] Protocol Metronidazole 1 appl 08/14/20 09:00 09/20/20 10:01 Metronidazole 0.75 % Gel 45 Gm Tube TOPICAL Not Given BID [facility] Multivitamins/Vitamin C 1 tab 07/23/20 09:00 09/20/20 09:58 Multivitamin Tablet PO 1 tab DAILY [facility] Administration Nystatin 1 appl 07/22/20 21:00 09/20/20 10:02 Nystatin Powder 15 Gm Bottle TOPICAL Not Given BID [facility] Protocol Oxycodone HCl 5 mg 09/14/20 10:30 09/19/20 19:17 Oxycodone Hcl Immed Release 5 Mg Tablet PO 5 mg Q4H PRN Administration Pain, Moderate (Pain Scale 4-6 Paliperidone Palmitate 234 mg 09/11/20 09:00 09/11/20 10:32 Paliperidone Palmitate 234 Mg/1.5 Ml Syringe IM Not Given Q30D [facility] Senna 17.2 mg 07/22/20 17:59 Sennosides 8.6 Mg Tablet PO DAILY PRN Constipation Allergies Allergies Allergy/AdvReac Type Severity Reaction Status Date / Time acetaminophen [From TYLENOL] Allergy Intermediate HIVES Verified 07/22/20 02:13 meperidine [From Demerol] Allergy Unknown Verified 07/22/20 02:10 Assessment & Plan Assessment & Plan (1) Fracture of greater tuberosity of left humerus: Status: Acute Code(s): S42.252A - Displaced fracture of greater tuberosity of left humerus, initial encounter for closed fracture (2) Schizoaffective disorder: Status: Acute Code(s): F25.9 - Schizoaffective disorder, unspecified Assessment and Plan: -Continue immobilizer sling -Pain mgt -Continues to report pain-with thought clarity she is more able to maintain and understand the need to immobilize Gradual improvement with increase in lability, irritability and anger. By history, family reports this takes about 3 months of treatment with [facility]. Haldol to 5 mg bid Invega Sustenna 234 mg given 09/14.. Labs/EKG done 09/12. Pt has several changes in what she will accept for a discharge plan. Greater than 50% of the session was spent on counseling and/or coordination of care Reason for contiued inpatient stay Substantial Risk for: harm to self, harm to others, inability to function, rapid decompensation and med/psych decompensation
[2020-09-20 18:00] VITALS: PULSE 114; RESP 18; TEMP 36.6; O2SAT 94
[2020-09-20] MEDS: LORazepam 0.5 MG TABLET PO (21:03)
[2020-09-20] MEDS: oxyCODONE HCl Immed Release 5 MG TABLET PO (21:48)
[2020-09-21 07:00] VITALS: BMI 41.8
[2020-09-21] MEDS: Multivitamin TABLET 1 TAB PO (08:54)
[2020-09-21] MEDS: HaloperidoL 5 MG TABLET PO (08:54)
[2020-09-21] MEDS: LORazepam 0.5 MG TABLET PO ×2 (09:52→20:07)
[2020-09-21] MEDS: oxyCODONE HCl Immed Release 5 MG TABLET PO ×2 (09:52→20:07)
--- NOTE | 2020-09-21 11:02 | P.PNPSI_ITS ---
Subjective Subjective Date of Service: 09/21/20 Reason For Visit: right shoulder pain Subjective Notes: Section 8 Interim History: Ana Paula is labile, angry, challenging today. She is aggressive with the team-at one point throwing her sling at her primary nurse. She asks to make a change in Haldol as she believes it causes her to have muscle pain. We will trial Olanzapine. She challenges both board writer and Natividad WINN on validity of civil commitment. She was given a copy of the judges order, but states it is fake, invalid. Team requests discontinuation of sling and trial of five minute checks as she seems to become more upset with the 1:1-at one point today making them stay outside of her room while she was resting. She also is asking to discharge to respite, which was explained that this was the plan, but not at this time due to increase in symptoms. She also reports she will refuse to return to the assigned residence. Medication Compliance: Yes Side effects from medications: Yes (reports muscle pain) Attending Groups: Intermittent Review of Systems Musculoskeletal: Reports other (Reports SE of haldol-pain.) Reports behavioral changes and Reports confusion Psychiatric: Reports behavioral changes, Reports confusion, Reports depression, Reports difficulty concentrating, Reports irritability, Reports mood swings and Reports paranoia Mental Status Exam Mental Status Exam Patient Appearance: Appropriate Patient Orientation: Person, Place, Time and Situation Level of Consciousness: Alert Patient Behavior: Guarded, Talkative, Suspicious, Aggressive, Restless, Swearing, Anxious, Resistive to Care, Avoidant, Distractible, Good Eye Contact and Uncooperative Mood Description: Suspicious, Withdrawn, Fearful, Hostile, Labile, Angry and Apprehensive Affect Description: Labile and Angry Patient Cognition Impaired: Yes Ability to Follow Directions: Fair Speech Pattern: Perseverating, Spontaneous Speech and Soft-Spoken Memory Description: Remote Impaired, Immediate Impaired, 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 in Activity, H opelessness, Isolating-Friends/Family and Unhappiness Judgement: Poor Diagnostics Vital Signs (24Hr): Vital Signs - 24 hr 09/20/20 18:00 Temperature 98 F Pulse Rate 114 H Respiratory Rate 18 Pulse Oximetry 94 Body Mass Index 41.8 Labs Results: 09/12/20 10:07 08/25/20 20:31 Imaging Radiology Impressions: ITS Impressions Humerus X-Ray 08/26/20 00:00 IMPRESSION: Nondisplaced fracture of the humeral head tuberosity. Medications Medications Current Medications Generic Name Dose Route Start Last Admin Trade Name Freq PRN Reason Stop Dose Admin Al Hydroxide/Mg Hydroxide 30 ml 07/22/20 16:17 Magnesium Hydrox/Alum Hydrox 30 Ml Oral.Susp PO Q6H PRN Heartburn/Nausea Haloperidol 5 mg 08/16/20 19:09 09/07/20 23:57 Haloperidol 5 Mg Tablet PO 5 mg BID PRN Administration Psychosis Haloperidol 5 mg 09/19/20 21:00 09/21/20 08:54 Haloperidol 5 Mg Tablet PO 5 mg BID [facility] Administration Haloperidol Lactate 5 mg 09/19/20 16:47 Haloperidol Lactate 5 Mg/Ml Vial IM BID PRN If pt ref PO per court order Ibuprofen 800 mg 08/26/20 01:21 09/19/20 13:38 Ibuprofen 800 Mg Tablet PO 800 mg Q8H PRN Administration Pain, Moderate (Pain Scale 4-6 Lisinopril 5 mg 07/23/20 09:00 09/21/20 09:15 Lisinopril 5 Mg Tablet PO Not Given DAILY [facility] Protocol Lorazepam 0.5 mg 09/01/20 21:00 09/21/20 09:52 Lorazepam 0.5 Mg Tablet PO 0.5 mg BID [facility] Administration Magnesium Hydroxide 30 ml 07/22/20 16:17 Milk Of Magnesia 30 Ml Oral.Susp PO DAILY PRN Constipation Melatonin 3 mg 07/22/20 17:58 09/17/20 21:05 Melatonin 3 Mg Tablet PO 3 mg BEDTIME PRN Administration Insomnia Metoprolol Tartrate 25 mg 07/22/20 21:00 09/21/20 09:15 Metoprolol Tartrate 25 Mg Tablet PO Not Given BID [facility] Protocol Metronidazole 1 appl 08/14/20 09:00 09/21/20 09:15 Metronidazole 0.75 % Gel 45 Gm Tube TOPICAL Not Given BID [facility] Multivitamins/Vitamin C 1 tab 07/23/20 09:00 09/21/20 08:54 Multivitamin Tablet PO 1 tab DAILY [facility] Administration Nystatin 1 appl 07/22/20 21:00 09/21/20 09:15 Nystatin Powder 15 Gm Bottle TOPICAL Not Given BID [facility] Protocol Oxycodone HCl 5 mg 09/14/20 10:30 09/21/20 09:52 Oxycodone Hcl Immed Release 5 Mg Tablet PO 5 mg Q4H PRN Administration Pain, Moderate (Pain Scale 4-6 Paliperidone Palmitate 234 mg 09/11/20 09:00 09/11/20 10:32 Paliperidone Palmitate 234 Mg/1.5 Ml Syringe IM Not Given Q30D [facility] Senna 17.2 mg 07/22/20 17:59 Sennosides 8.6 Mg Tablet PO DAILY PRN Constipation Allergies Allergies Allergy/AdvReac Type Severity Reaction Status Date / Time acetaminophen [From TYLENOL] Allergy Intermediate HIVES Verified 07/22/20 02:13 meperidine [From Demerol] Allergy Unknown Verified 07/22/20 02:10 Assessment & Plan Assessment & Plan (1) Fracture of greater tuberosity of left humerus: Status: Acute Code(s): S42.252A - Displaced fracture of greater tuberosity of left humerus, initial encounter for closed fracture (2) Schizoaffective disorder: Status: Acute Code(s): F25.9 - Schizoaffective disorder, unspecified Assessment and Plan: -Pt refuses immobilizer sling-discontinue. -Discontinue 1:1. 5 minute safety checks -Decrease oxycodone to q 12 hours prn-taper. Pt will have used the medication for 4 weeks effective 09/25/20. -I have asked pt to repeat x rays to re-evaluate healing and consult with orthpedics again-she refuses at this time. Gradual improvement with increase in lability, irritability and anger. Seems to be deteriorating today. By history, family reports this takes about 3 months of treatment with [facility]. Discontinue Haldol. Olanzapine 5 mg bid. Olanzapine 10 mg daily prn Invega Sustenna 234 mg given 09/14.. Pt accepting of plan for respite, not residential at this time. She has returned to the belief that the civil commitment is fradulent. Greater than 50% of the session was spent on counseling and/or coordination of care Patient educated on: medication risk/benefits and therapeutic strategies Informed Consent: does not understand Reason for contiued inpatient stay Substantial Risk for: harm to self, harm to others, inability to function, rapid decompensation and med/psych decompensation
[2020-09-21 20:03] VITALS: TEMP 36.4
[2020-09-21 20:07] VITALS: BP 150/87; PULSE 91
[2020-09-21] MEDS: OLANZapine 5 MG TABLET PO (20:07)
[2020-09-21] MEDS: Metoprolol Tartrate 25 MG TABLET PO (20:07)
[2020-09-22] MEDS: OLANZapine 5 MG TABLET PO (08:39)
--- NOTE | 2020-09-22 12:50 | HO.PSYCHPN ---
Subjective Subjective Date of Service: 09/22/20 Reason For Visit: right shoulder pain Subjective Notes: Section 8 Interim History: Visable, interactive, labile and angry at times. Refusing sling-discontinued. Trial of 5 minute checks. Continues at times to state that team are imposters, at other times is clear, oriented, and able to discuss concerns. Depressive sx present-pt not wanting to treat these, periods of crying. Wanting to go to respite, not wanting to return to her residence. Medication Compliance: Yes Side effects from medications: No Attending Groups: Intermittent Review of Systems Musculoskeletal: Reports other ( My arm does not hurt anymore .) Reports behavioral changes and Reports confusion Psychiatric: Reports anxiety, Reports behavioral changes, Reports confusion, Reports depression, Reports difficulty concentrating, Reports auditory hallucinations, Reports hopelessness, Reports irritability, Reports anhedonia, Reports mood swings, Reports paranoia and Reports suicidal ideation (denies) Mental Status Exam Mental Status Exam Patient Appearance: Appropriate Patient Orientation: Person and Place Level of Consciousness: Awake and Alert Patient Behavior: Guarded, Talkative, Cooperative, Suspicious, Restless, Belligerent, Anxious, Fearful, Resistive to Care, Avoidant, Distractible, Confused, Isolative, Good Eye Contact (intense at times), Crying, Uncooperative and Impulsive Mood Description: Suspicious, Withdrawn, Anxious and Labile Affect Description: Labile Patient Cognition Impaired: Yes Ability to Follow Directions: Fair Speech Pattern: Spontaneous Speech and Soft-Spoken Memory Description: Remote Impaired, Immediate Impaired, Supreme Court Justice Impaired and Episodic Impaired Hallucinations: Auditory Delusions: Paranoid Ideation and Present Thought Process: Illogical, Distracted, Rumination and Goal Oriented Thought Content: positive for Circumstantial, positive for Goal Oriented, positive for Preoccupation and positive for Tangential Depressive Symptoms: Increased Anxiety, Diff. Making Decisions, Increased Irritability, Crying Spells, Low Self Esteem and Difficulty Concentrating Judgement: Poor Diagnostics Vital Signs (24Hr): Vital Signs - 24 hr 09/21/20 20:03 09/21/20 20:07 Temperature 97.5 F Pulse Rate 91 Blood Pressure 150/87 H Body Mass Index 41.8 Labs Results: 09/12/20 10:07 08/25/20 20:31 Imaging Radiology Impressions: ITS Impressions Humerus X-Ray 08/26/20 00:00 IMPRESSION: Nondisplaced fracture of the humeral head tuberosity. Medications Medications Current Medications Generic Name Dose Route Start Last Admin Trade Name Freq PRN Reason Stop Dose Admin Al Hydroxide/Mg Hydroxide 30 ml 07/22/20 16:17 Magnesium Hydrox/Alum Hydrox 30 Ml Oral.Susp PO Q6H PRN Heartburn/Nausea Ibuprofen 800 mg 08/26/20 01:21 09/19/20 13:38 Ibuprofen 800 Mg Tablet PO 800 mg Q8H PRN Administration Pain, Moderate (Pain Scale 4-6 Lisinopril 5 mg 07/23/20 09:00 09/22/20 10:05 Lisinopril 5 Mg Tablet PO Not Given DAILY [facility] Protocol Lorazepam 0.5 mg 09/01/20 21:00 09/22/20 10:06 Lorazepam 0.5 Mg Tablet PO Not Given BID [facility] Magnesium Hydroxide 30 ml 07/22/20 16:17 Milk Of Magnesia 30 Ml Oral.Susp PO DAILY PRN Constipation Melatonin 3 mg 07/22/20 17:58 09/17/20 21:05 Melatonin 3 Mg Tablet PO 3 mg BEDTIME PRN Administration Insomnia Metoprolol Tartrate 25 mg 07/22/20 21:00 09/22/20 10:06 Metoprolol Tartrate 25 Mg Tablet PO Not Given BID [facility] Protocol Metronidazole 1 appl 08/14/20 09:00 09/22/20 10:08 Metronidazole 0.75 % Gel 45 Gm Tube TOPICAL Not Given BID [facility] Multivitamins/Vitamin C 1 tab 07/23/20 09:00 09/22/20 10:08 Multivitamin Tablet PO Not Given DAILY [facility] Nystatin 1 appl 07/22/20 21:00 09/22/20 10:06 Nystatin Powder 15 Gm Bottle TOPICAL Not Given BID [facility] Protocol Olanzapine 5 mg 09/21/20 21:00 09/22/20 08:39 Olanzapine 5 Mg Tablet PO 5 mg BID [facility] Administration Olanzapine 5 mg 09/21/20 13:05 Olanzapine 10 Mg Vial IM BID PRN if pt ref po per court order Olanzapine 10 mg 09/21/20 13:08 Olanzapine 10 Mg Tablet PO DAILY PRN psychosis Oxycodone HCl 5 mg 09/21/20 13:01 09/21/20 20:07 Oxycodone Hcl Immed Release 5 Mg Tablet PO 5 mg BID PRN Administration Pain, Severe (Pain Scale 7-10) Paliperidone Palmitate 234 mg 09/11/20 09:00 09/11/20 10:32 Paliperidone Palmitate 234 Mg/1.5 Ml Syringe IM Not Given Q30D [facility] Senna 17.2 mg 07/22/20 17:59 Sennosides 8.6 Mg Tablet PO DAILY PRN Constipation Allergies Allergies Allergy/AdvReac Type Severity Reaction Status Date / Time acetaminophen [From TYLENOL] Allergy Intermediate HIVES Verified 07/22/20 02:13 meperidine [From Demerol] Allergy Unknown Verified 07/22/20 02:10 Assessment & Plan Assessment & Plan (1) Fracture of greater tuberosity of left humerus: Status: Acute Code(s): S42.252A - Displaced fracture of greater tuberosity of left humerus, initial encounter for closed fracture (2) Schizoaffective disorder: Status: Acute Code(s): F25.9 - Schizoaffective disorder, unspecified Assessment and Plan: -Pt refuses immobilizer sling-discontinue. -Discontinue 1:1. 5 minute safety checks -Decrease oxycodone to q 12 hours prn-taper. Pt will have used the medication for 4 weeks effective 09/25/20. -I have asked pt to repeat x rays to re-evaluate healing and consult with orthpedics again-she refuses at this time. Gradual improvement with increase in lability, irritability and anger. Seems to be deteriorating today. By history, family reports this takes about 3 months of treatment with [facility]. Discontinue Haldol. Olanzapine 5 mg bid. Olanzapine 10 mg daily prn. Will trial, if ineffective ?Kuldeep Stewart Sustenna 234 mg given 09/14.. Pt accepting of plan for respite, not residential at this time. She has returned to the belief that the civil commitment is fradulent. Greater than 50% of the session was spent on counseling and/or coordination of care Reason for contiued inpatient stay Substantial Risk for: harm to self, harm to others, inability to function, rapid decompensation and med/psych decompensation
[2020-09-22] MEDS: oxyCODONE HCl Immed Release 5 MG TABLET PO ×2 (14:55→19:32)
[2020-09-22] MEDS: Ibuprofen 800 MG TABLET PO (14:55)
[2020-09-22 21:00] VITALS: BP 134/70; PULSE 81; TEMP 36.7
[2020-09-22 21:18] VITALS: BP 134/70; PULSE 81
[2020-09-22] MEDS: OLANZapine ODT 10 MG TAB.RAPDIS 5 MG TRANSLINGU (21:18)
[2020-09-22] MEDS: LORazepam 0.5 MG TABLET PO (21:18)
[2020-09-22] MEDS: Metoprolol Tartrate 25 MG TABLET PO (21:18)
[2020-09-23 04:00] VITALS: RESP 16
[2020-09-23] MEDS: LORazepam 0.5 MG TABLET PO ×2 (08:25→20:29)
[2020-09-23] MEDS: OLANZapine ODT 10 MG TAB.RAPDIS 5 MG TRANSLINGU ×2 (08:25→20:23)
[2020-09-23] MEDS: Ibuprofen 800 MG TABLET PO ×2 (08:26→20:28)
[2020-09-23] MEDS: Multivitamin TABLET 1 TAB PO (08:26)
--- NOTE | 2020-09-23 10:53 | HO.PSYCHPN ---
Subjective Subjective Date of Service: 09/23/20 Reason For Visit: right shoulder pain Subjective Notes: Section 8 Interim History: Chart reviewed; case discussed with team. Vitals reviewed: pt refused Pt lying in bed. Petrol Tanker Driver asked how pt was feeling today and at fist she said good but then started saying she does not belong here, she is not schizophrenic...court document on substituted judgement is false and she wants to discharge now. Petrol Tanker Driver inquired about Zyprexa which was just started which she said makes her tired and said she would thus forward refuse it. Pt could tolerate discussion regarding this topics and conversation concluded. Medication Compliance: Yes (after first refuses) Side effects from medications: Yes (zyprexa causing tiredness) Mental Status Exam Mental Status Exam Narrative: Patient Appearance: Appropriate Patient Orientation: Person and Place Level of Consciousness: Awake and Alert Patient Behavior: Guarded, Talkative, Cooperative, Suspicious, Restless, Belligerent, Anxious, Fearful, Resistive to Care, Avoidant, Distractible, Confused, Isolative, Good Eye Contact (intense at times), Crying, Uncooperative and Impulsive Mood Description: Suspicious, Withdrawn, Anxious and Labile Affect Description: Labile Patient Cognition Impaired: Yes Ability to Follow Directions: Fair Speech Pattern: Spontaneous Speech and Soft-Spoken Memory Description: Remote Impaired, Immediate Impaired, Animal Nursery Worker Impaired and Episodic Impaired Hallucinations: Auditory Delusions: Paranoid Ideation and Present Thought Process: Illogical, Distracted, Rumination and Goal Oriented Thought Content: positive for Circumstantial, positive for Goal Oriented, positive for Preoccupation and positive for Tangential Depressive Symptoms: Increased Anxiety, Diff. Making Decisions, Increased Irritability, Crying Spells, Low Self Esteem and Difficulty Concentrating Diagnostics Vital Signs (24Hr): Vital Signs - 24 hr 09/22/20 21:00 09/22/20 21:18 09/23/20 04:00 Temperature 98.0 F Pulse Rate 81 81 Respiratory Rate 16 Blood Pressure 134/70 134/70 Body Mass Index 41.8 Labs Results: 09/12/20 10:07 08/25/20 20:31 Imaging Radiology Impressions: ITS Impressions Humerus X-Ray 08/26/20 00:00 IMPRESSION: Nondisplaced fracture of the humeral head tuberosity. Medications Medications Current Medications Generic Name Dose Route Start Last Admin Trade Name Freq PRN Reason Stop Dose Admin Al Hydroxide/Mg Hydroxide 30 ml 07/22/20 16:17 Magnesium Hydrox/Alum Hydrox 30 Ml Oral.Susp PO Q6H PRN Heartburn/Nausea Ibuprofen 800 mg 08/26/20 01:21 09/23/20 08:26 Ibuprofen 800 Mg Tablet PO 800 mg Q8H PRN Administration Pain, Moderate (Pain Scale 4-6 Lisinopril 5 mg 07/23/20 09:00 09/23/20 08:28 Lisinopril 5 Mg Tablet PO Not Given DAILY [facility] Protocol Lorazepam 0.5 mg 09/01/20 21:00 09/23/20 08:25 Lorazepam 0.5 Mg Tablet PO 0.5 mg BID [facility] Administration Magnesium Hydroxide 30 ml 07/22/20 16:17 Milk Of Magnesia 30 Ml Oral.Susp PO DAILY PRN Constipation Melatonin 3 mg 07/22/20 17:58 09/17/20 21:05 Melatonin 3 Mg Tablet PO 3 mg BEDTIME PRN Administration Insomnia Metoprolol Tartrate 25 mg 07/22/20 21:00 09/23/20 08:28 Metoprolol Tartrate 25 Mg Tablet PO Not Given BID [facility] Protocol Metronidazole 1 appl 08/14/20 09:00 09/23/20 08:29 Metronidazole 0.75 % Gel 45 Gm Tube TOPICAL Not Given BID [facility] Multivitamins/Vitamin C 1 tab 07/23/20 09:00 09/23/20 08:26 Multivitamin Tablet PO 1 tab DAILY [facility] Administration Nystatin 1 appl 07/22/20 21:00 09/23/20 08:28 Nystatin Powder 15 Gm Bottle TOPICAL Not Given BID [facility] Protocol Olanzapine 5 mg 09/21/20 13:05 Olanzapine 10 Mg Vial IM BID PRN if pt ref po per court order Olanzapine 5 mg 09/22/20 21:00 09/23/20 08:25 Olanzapine Odt 10 Mg Tab.Rapdis TRANSLINGU 5 mg BID [facility] Administration Olanzapine 10 mg 09/22/20 16:24 Olanzapine Odt 10 Mg Tab.Rapdis TRANSLINGU DAILY PRN psychosis, agitation Oxycodone HCl 5 mg 09/21/20 13:01 09/22/20 19:32 Oxycodone Hcl Immed Release 5 Mg Tablet PO 5 mg BID PRN Administration Pain, Severe (Pain Scale 7-10) Paliperidone Palmitate 234 mg 09/11/20 09:00 09/11/20 10:32 Paliperidone Palmitate 234 Mg/1.5 Ml Syringe IM Not Given Q30D [facility] Senna 17.2 mg 07/22/20 17:59 Sennosides 8.6 Mg Tablet PO DAILY PRN Constipation Allergies Allergies Allergy/AdvReac Type Severity Reaction Status Date / Time acetaminophen [From TYLENOL] Allergy Intermediate HIVES Verified 07/22/20 02:13 meperidine [From Demerol] Allergy Unknown Verified 07/22/20 02:10 Assessment & Plan Assessment & Plan (1) Fracture of greater tuberosity of left humerus: Status: Acute Code(s): S42.252A - Displaced fracture of greater tuberosity of left humerus, initial encounter for closed fracture (2) Schizoaffective disorder: Status: Acute Code(s): F25.9 - Schizoaffective disorder, unspecified Assessment and Plan: impression: pt perseverative that court proceedings are false; poor insight; resistance to medication but taking it -Pt had Follow up Xray for right humerus, impression pending Otherwise, no change from primary team treatment plan: Pt refuses immobilizer sling-discontinue. -Discontinue 1:1. 5 minute safety checks -Decrease oxycodone to q 12 hours prn-taper. Pt will have used the medication for 4 weeks effective 09/25/20. Gradual improvement with increase in lability, irritability and anger.. By history, family reports this takes about 3 months of treatment with [facility]. Discontinued Haldol. Continue Olanzapine 5 mg bid. Olanzapine 10 mg daily prn. Will trial, if ineffective ?Kuldeep Stewart Sustenna 234 mg given 09/14.. Pt accepting of plan for respite, not residential at this time. She has returned to the belief that the civil commitment is fradulent. Greater than 50% of the session was spent on counseling and/or coordination of care Reason for contiued inpatient stay Substantial Risk for: inability to function
[2020-09-23] MEDS: oxyCODONE HCl Immed Release 5 MG TABLET PO (16:57)
[2020-09-23 20:00] VITALS: BP 122/66; PULSE 75; TEMP 36.9
[2020-09-23 20:28] VITALS: BP 122/66; PULSE 75
[2020-09-23] MEDS: Metoprolol Tartrate 25 MG TABLET PO (20:28)
[2020-09-24] MEDS: Ibuprofen 800 MG TABLET PO (08:25)
[2020-09-24] MEDS: OLANZapine ODT 10 MG TAB.RAPDIS 5 MG TRANSLINGU ×2 (08:25→20:42)
[2020-09-24] MEDS: Multivitamin TABLET 1 TAB PO (08:25)
[2020-09-24] MEDS: LORazepam 0.5 MG TABLET PO ×2 (08:25→20:41)
--- NOTE | 2020-09-24 09:11 | P.PNPSI_ITS ---
Subjective Subjective Date of Service: 09/24/20 Reason For Visit: right shoulder pain Interim History: Chart reviewed; case discussed with team. Vitals reviewed: WNL Pt sleeping on approach. Tip Stitcher woke patient who was willing to say that she is fine and does not need anything. Otherwise, nursing staff reports that today, patient approached med window and asked for her medications, a significant improvement in presentation/insight/judgement regarding arm pain she reports it hurts some in the morning and then again just before bed Mental Status Exam Mental Status Exam Narrative: Patient Appearance: Appropriate Patient Orientation: Person and Place Level of Consciousness: Awake and Alert Patient Behavior: Guarded, Talkative, Cooperative, Suspicious, Restless, Belligerent, Anxious, Fearful, Resistive to Care, Avoidant, Distractible, Confused, Isolative, Good Eye Contact (intense at times), Crying, Uncooperative and Impulsive Mood Description: Suspicious, Withdrawn, Anxious and Labile Affect Description: Labile Patient Cognition Impaired: Yes Ability to Follow Directions: Fair Speech Pattern: Spontaneous Speech Memory Description: Remote Impaired, Immediate Impaired, Intermediate Impaired and Episodic Impaired Hallucinations: Auditory Delusions: Paranoid Ideation and Present Thought Process: Illogical, Distracted, Rumination and Goal Oriented Thought Content: positive for Circumstantial, positive for Goal Oriented, positive for Preoccupation and positive for Tangential Depressive Symptoms: Increased Anxiety, Diff. Making Decisions, Increased Irritability, Crying Spells, Low Self Esteem and Difficulty Concentrating Diagnostics Vital Signs (24Hr): Vital Signs - 24 hr 09/23/20 20:00 09/23/20 20:28 Temperature 98.4 F Pulse Rate 75 75 Blood Pressure 122/66 122/66 Body Mass Index 41.8 Labs Results: 09/12/20 10:07 08/25/20 20:31 Imaging Radiology Impressions: ITS Impressions Humerus X-Ray 08/26/20 00:00 IMPRESSION: Nondisplaced fracture of the humeral head tuberosity. Humerus X-Ray 09/23/20 11:48 IMPRESSION: Healing fracture greater tuberosity. Medications Medications Current Medications Generic Name Dose Route Start Last Admin Trade Name Freq PRN Reason Stop Dose Admin Al Hydroxide/Mg Hydroxide 30 ml 07/22/20 16:17 Magnesium Hydrox/Alum Hydrox 30 Ml Oral.Susp PO Q6H PRN Heartburn/Nausea Ibuprofen 800 mg 08/26/20 01:21 09/24/20 08:25 Ibuprofen 800 Mg Tablet PO 800 mg Q8H PRN Administration Pain, Moderate (Pain Scale 4-6 Lisinopril 5 mg 07/23/20 09:00 09/24/20 08:43 Lisinopril 5 Mg Tablet PO Not Given DAILY [facility] Protocol Lorazepam 0.5 mg 09/01/20 21:00 09/24/20 08:25 Lorazepam 0.5 Mg Tablet PO 0.5 mg BID [facility] Administration Magnesium Hydroxide 30 ml 07/22/20 16:17 Milk Of Magnesia 30 Ml Oral.Susp PO DAILY PRN Constipation Melatonin 3 mg 07/22/20 17:58 09/17/20 21:05 Melatonin 3 Mg Tablet PO 3 mg BEDTIME PRN Administration Insomnia Metoprolol Tartrate 25 mg 07/22/20 21:00 09/24/20 08:43 Metoprolol Tartrate 25 Mg Tablet PO Not Given BID [facility] Protocol Metronidazole 1 appl 08/14/20 09:00 09/24/20 08:44 Metronidazole 0.75 % Gel 45 Gm Tube TOPICAL Not Given BID [facility] Multivitamins/Vitamin C 1 tab 07/23/20 09:00 09/24/20 08:25 Multivitamin Tablet PO 1 tab DAILY [facility] Administration Nystatin 1 appl 07/22/20 21:00 09/24/20 08:44 Nystatin Powder 15 Gm Bottle TOPICAL Not Given BID [facility] Protocol Olanzapine 5 mg 09/21/20 13:05 Olanzapine 10 Mg Vial IM BID PRN if pt ref po per court order Olanzapine 5 mg 09/22/20 21:00 09/24/20 08:25 Olanzapine Odt 10 Mg Tab.Rapdis TRANSLINGU 5 mg BID [facility] Administration Olanzapine 10 mg 09/22/20 16:24 Olanzapine Odt 10 Mg Tab.Rapdis TRANSLINGU DAILY PRN psychosis, agitation Oxycodone HCl 5 mg 09/21/20 13:01 09/23/20 16:57 Oxycodone Hcl Immed Release 5 Mg Tablet PO 5 mg BID PRN Administration Pain, Severe (Pain Scale 7-10) Paliperidone Palmitate 234 mg 09/11/20 09:00 09/11/20 10:32 Paliperidone Palmitate 234 Mg/1.5 Ml Syringe IM Not Given Q30D [facility] Senna 17.2 mg 07/22/20 17:59 Sennosides 8.6 Mg Tablet PO DAILY PRN Constipation Allergies Allergies Allergy/AdvReac Type Severity Reaction Status Date / Time acetaminophen [From TYLENOL] Allergy Intermediate HIVES Verified 07/22/20 02:13 meperidine [From Demerol] Allergy Unknown Verified 07/22/20 02:10 Assessment & Plan Assessment & Plan (1) Fracture of greater tuberosity of left humerus: Status: Acute Code(s): S42.252A - Displaced fracture of greater tuberosity of left humerus, initial encounter for closed fracture (2) Schizoaffective disorder: Status: Acute Code(s): F25.9 - Schizoaffective disorder, unspecified Assessment and Plan: impression: pt perseverative that court proceedings are false; poor insight; resistance to medication but taking it -Pt had Follow up Xray for right humerus, impression: Healing fracture greater tuberosity. Otherwise, no change from primary team treatment plan: Pt refuses immobilizer sling-discontinue. -Discontinue 1:1. 5 minute safety checks -Decrease oxycodone to q 12 hours prn-taper. Pt will have used the medication for 4 weeks effective 09/25/20. Gradual improvement with increase in lability, irritability and anger.. By history, family reports this takes about 3 months of treatment with [facility]. Discontinued Haldol. Continue Olanzapine 5 mg bid. Olanzapine 10 mg daily prn. Will trial, if ineffective ?Kuldeep Stewart Sustenna 234 mg given 09/14.. Pt accepting of plan for respite, not residential at this time. She has returned to the belief that the civil commitment is fradulent. Greater than 50% of the session was spent on counseling and/or coordination of care Reason for contiued inpatient stay Substantial Risk for: inability to function
[2020-09-24] MEDS: oxyCODONE HCl Immed Release 5 MG TABLET PO (18:00)
[2020-09-24] MEDS: metroNIDAZOLE 0.75 % Gel 45 GM TUBE 1 APPL TOPICAL (20:15)
[2020-09-25 06:00] VITALS: RESP 16
[2020-09-25] MEDS: Multivitamin TABLET 1 TAB PO (09:37)
[2020-09-25] MEDS: OLANZapine ODT 10 MG TAB.RAPDIS 5 MG TRANSLINGU ×2 (09:44→20:35)
[2020-09-25] MEDS: LORazepam 0.5 MG TABLET PO ×2 (09:46→20:34)
[2020-09-25] MEDS: oxyCODONE HCl Immed Release 5 MG TABLET PO ×2 (10:29→20:34)
--- NOTE | 2020-09-25 17:43 | HO.PSYCHPN ---
Subjective Subjective Date of Service: 09/25/20 Reason For Visit: right shoulder pain Subjective Notes: Section 8 Interim History: Pt approached team over the weekend and asked for her medications once. Today, she continues to deny validity of her legal status, her team, credentials of her team and her current situation. Team reports Olanzapine has had some positive effect. Will continue with this trial at this time. Medication Compliance: Yes Side effects from medications: No Attending Groups: Intermittent Review of Systems Review of Systems Yes all other systems are reviewed and are negative Reports behavioral changes Psychiatric: Reports anxiety, Reports behavioral changes, Reports depression, Reports irritability, Reports mood swings and Reports paranoia Mental Status Exam Mental Status Exam Patient Appearance: Appropriate Patient Orientation: Person, Place, Time and Situation Level of Consciousness: Awake and Alert Patient Behavior: Guarded, Talkative, Suspicious, Aggressive, Belligerent, Anxious, Distractible, Isolative, Good Eye Contact and Impulsive Mood Description: Labile Affect Description: Labile Patient Cognition Impaired: Yes Speech Pattern: Perseverating, Spontaneous Speech and Soft-Spoken Memory Description: Remote Impaired, Immediate Impaired and Nursing Home Impaired Hallucinations: None Delusions: Present Thought Process: Distracted and Rumination Thought Content: positive for Circumstantial and positive for Tangential Depressive Symptoms: Diff. Making Decisions, Increased Irritability, Unhappiness and Low Self Esteem Abnormal Motor Activity Signs and Symptoms: Restlessness Judgement: Poor Diagnostics Vital Signs (24Hr): Vital Signs - 24 hr 09/25/20 06:00 Respiratory Rate 16 Body Mass Index 41.8 Labs Results: 09/12/20 10:07 08/25/20 20:31 Imaging Radiology Impressions: ITS Impressions Humerus X-Ray 08/26/20 00:00 IMPRESSION: Nondisplaced fracture of the humeral head tuberosity. Humerus X-Ray 09/23/20 11:48 IMPRESSION: Healing fracture greater tuberosity. Medications Medications Current Medications Generic Name Dose Route Start Last Admin Trade Name Freq PRN Reason Stop Dose Admin Al Hydroxide/Mg Hydroxide 30 ml 07/22/20 16:17 Magnesium Hydrox/Alum Hydrox 30 Ml Oral.Susp PO Q6H PRN Heartburn/Nausea Ibuprofen 800 mg 08/26/20 01:21 09/24/20 08:25 Ibuprofen 800 Mg Tablet PO 800 mg Q8H PRN Administration Pain, Moderate (Pain Scale 4-6 Lisinopril 5 mg 07/23/20 09:00 09/25/20 09:39 Lisinopril 5 Mg Tablet PO Not Given DAILY [facility] Protocol Lorazepam 0.5 mg 09/01/20 21:00 09/25/20 09:46 Lorazepam 0.5 Mg Tablet PO 0.5 mg BID [facility] Administration Magnesium Hydroxide 30 ml 07/22/20 16:17 Milk Of Magnesia 30 Ml Oral.Susp PO DAILY PRN Constipation Melatonin 3 mg 07/22/20 17:58 09/17/20 21:05 Melatonin 3 Mg Tablet PO 3 mg BEDTIME PRN Administration Insomnia Metoprolol Tartrate 25 mg 07/22/20 21:00 09/25/20 09:39 Metoprolol Tartrate 25 Mg Tablet PO Not Given BID [facility] Protocol Metronidazole 1 appl 08/14/20 09:00 09/25/20 09:38 Metronidazole 0.75 % Gel 45 Gm Tube TOPICAL Not Given BID [facility] Multivitamins/Vitamin C 1 tab 07/23/20 09:00 09/25/20 09:37 Multivitamin Tablet PO 1 tab DAILY [facility] Administration Nystatin 1 appl 07/22/20 21:00 09/25/20 09:38 Nystatin Powder 15 Gm Bottle TOPICAL Not Given BID [facility] Protocol Olanzapine 5 mg 09/21/20 13:05 Olanzapine 10 Mg Vial IM BID PRN if pt ref po per court order Olanzapine 5 mg 09/22/20 21:00 09/25/20 09:44 Olanzapine Odt 10 Mg Tab.Rapdis TRANSLINGU 5 mg BID [facility] Administration Olanzapine 10 mg 09/22/20 16:24 Olanzapine Odt 10 Mg Tab.Rapdis TRANSLINGU DAILY PRN psychosis, agitation Oxycodone HCl 5 mg 09/21/20 13:01 09/25/20 10:29 Oxycodone Hcl Immed Release 5 Mg Tablet PO 5 mg BID PRN Administration Pain, Severe (Pain Scale 7-10) Paliperidone Palmitate 234 mg 09/11/20 09:00 09/11/20 10:32 Paliperidone Palmitate 234 Mg/1.5 Ml Syringe IM Not Given Q30D [facility] Senna 17.2 mg 07/22/20 17:59 Sennosides 8.6 Mg Tablet PO DAILY PRN Constipation Allergies Allergies Allergy/AdvReac Type Severity Reaction Status Date / Time acetaminophen [From TYLENOL] Allergy Intermediate HIVES Verified 07/22/20 02:13 meperidine [From Demerol] Allergy Unknown Verified 07/22/20 02:10 Assessment & Plan Assessment & Plan (1) Fracture of greater tuberosity of left humerus: Status: Acute Code(s): S42.252A - Displaced fracture of greater tuberosity of left humerus, initial encounter for closed fracture (2) Schizoaffective disorder: Status: Acute Code(s): F25.9 - Schizoaffective disorder, unspecified Assessment and Plan: Pt refuses immobilizer sling-discontinue. Follow up [id number] fracture greater tuberosity -Discontinue 1:1. 5 minute safety checks -Decrease oxycodone to q 12 hours prn-taper. Pt will have used the medication for 4 weeks effective 09/25/20. Gradual improvement with increase in lability, irritability and anger.. By history, family reports this takes about 3 months of treatment with [facility]. Continue Olanzapine 5 mg bid. Olanzapine 10 mg daily prn. Will trial, if ineffective ?Kuldeep Longoriaega Sustenna 234 mg given 09/14.. Pt accepting of plan for respite, not residential at this time. She has returned to the belief that the civil commitment is fradulent. Greater than 50% of the session was spent on counseling and/or coordination of care Reason for contiued inpatient stay Substantial Risk for: harm to self, harm to others, inability to function, rapid decompensation and med/psych decompensation
[2020-09-25] MEDS: Ibuprofen 800 MG TABLET PO (20:33)
[2020-09-25 20:57] VITALS: BP 148/76; PULSE 103; TEMP 36.9
[2020-09-26 06:00] VITALS: BP 164/60; PULSE 88; TEMP 36.3; O2SAT 94
[2020-09-26] MEDS: OLANZapine ODT 10 MG TAB.RAPDIS 5 MG TRANSLINGU ×2 (09:07→21:02)
[2020-09-26] MEDS: LORazepam 0.5 MG TABLET PO ×2 (09:08→21:02)
[2020-09-26] MEDS: Multivitamin TABLET 1 TAB PO (09:08)
[2020-09-26] MEDS: metroNIDAZOLE 0.75 % Gel 45 GM TUBE 1 APPL TOPICAL ×2 (09:20→22:06)
[2020-09-26] MEDS: Ibuprofen 800 MG TABLET PO (09:24)
--- NOTE | 2020-09-26 11:33 | HO.PSYCHPN ---
Subjective Subjective Date of Service: 09/26/20 Reason For Visit: right shoulder pain Subjective Notes: Section 8 Interim History: I don't want to talk because there is nothing wrong with me. You don't have to ask me any questions. Irritable, evasive, isolative, not interested in communicating today. Medication Compliance: Yes Side effects from medications: No Attending Groups: Intermittent Review of Systems Review of Systems Yes all other systems are reviewed and are negative (denies, denies arm pain) Reports behavioral changes Psychiatric: Reports behavioral changes, Reports depression, Reports auditory hallucinations, Reports hopelessness, Reports anhedonia and Reports mood swings Mental Status Exam Mental Status Exam Patient Appearance: Appropriate Patient Orientation: Person, Place, Time and Situation Level of Consciousness: Drowsy, Sedated and Alert Patient Behavior: Guarded, Suspicious, Fatigued, Distractible, Isolative and Good Eye Contact Mood Description: Suspicious, Constricted, Hostile, Anxious, Labile, Angry and Apprehensive Affect Description: Labile Patient Cognition Impaired: Yes Ability to Follow Directions: Good Speech Pattern: Spontaneous Speech and Cofabulation Memory Description: Remote Impaired, Immediate Impaired and Mcfp Impaired Hallucinations: None Delusions: Present Thought Process: Illogical, Distracted and Rumination Thought Content: positive for Circumstantial, positive for Tangential, positive for Disorganized and positive for Suicidal Ideation (denies) Depressive Symptoms: Increased Anxiety, Increased Irritability, Sleeping More Than Usual, Low Self Esteem and Difficulty Concentrating Judgement: Poor Diagnostics Vital Signs (24Hr): Vital Signs - 24 hr 09/25/20 20:57 09/26/20 06:00 Temperature 98.5 F 97.4 F Pulse Rate 103 H 88 Blood Pressure 148/76 H 164/60 H Pulse Oximetry 94 Body Mass Index 41.8 Labs Results: 09/12/20 10:07 08/25/20 20:31 Imaging Radiology Impressions: ITS Impressions Humerus X-Ray 08/26/20 00:00 IMPRESSION: Nondisplaced fracture of the humeral head tuberosity. Humerus X-Ray 09/23/20 11:48 IMPRESSION: Healing fracture greater tuberosity. Medications Medications Current Medications Generic Name Dose Route Start Last Admin Trade Name Freq PRN Reason Stop Dose Admin Al Hydroxide/Mg Hydroxide 30 ml 07/22/20 16:17 Magnesium Hydrox/Alum Hydrox 30 Ml Oral.Susp PO Q6H PRN Heartburn/Nausea Ibuprofen 800 mg 08/26/20 01:21 09/26/20 09:24 Ibuprofen 800 Mg Tablet PO 800 mg Q8H PRN Administration Pain, Moderate (Pain Scale 4-6 Lisinopril 5 mg 07/23/20 09:00 09/26/20 09:08 Lisinopril 5 Mg Tablet PO Not Given DAILY [facility] Protocol Lorazepam 0.5 mg 09/01/20 21:00 09/26/20 09:08 Lorazepam 0.5 Mg Tablet PO 0.5 mg BID [facility] Administration Magnesium Hydroxide 30 ml 07/22/20 16:17 Milk Of Magnesia 30 Ml Oral.Susp PO DAILY PRN Constipation Melatonin 3 mg 07/22/20 17:58 09/17/20 21:05 Melatonin 3 Mg Tablet PO 3 mg BEDTIME PRN Administration Insomnia Metoprolol Tartrate 25 mg 07/22/20 21:00 09/26/20 09:08 Metoprolol Tartrate 25 Mg Tablet PO Not Given BID [facility] Protocol Metronidazole 1 appl 08/14/20 09:00 09/26/20 09:20 Metronidazole 0.75 % Gel 45 Gm Tube TOPICAL 1 appl BID [facility] Administration Multivitamins/Vitamin C 1 tab 07/23/20 09:00 09/26/20 09:08 Multivitamin Tablet PO 1 tab DAILY [facility] Administration Nystatin 1 appl 07/22/20 21:00 09/26/20 09:21 Nystatin Powder 15 Gm Bottle TOPICAL Not Given BID [facility] Protocol Olanzapine 5 mg 09/21/20 13:05 Olanzapine 10 Mg Vial IM BID PRN if pt ref po per court order Olanzapine 5 mg 09/22/20 21:00 09/26/20 09:07 Olanzapine Odt 10 Mg Tab.Rapdis TRANSLINGU 5 mg BID [facility] Administration Olanzapine 10 mg 09/22/20 16:24 Olanzapine Odt 10 Mg Tab.Rapdis TRANSLINGU DAILY PRN psychosis, agitation Oxycodone HCl 5 mg 09/21/20 13:01 09/25/20 20:34 Oxycodone Hcl Immed Release 5 Mg Tablet PO 5 mg BID PRN Administration Pain, Severe (Pain Scale 7-10) Paliperidone Palmitate 234 mg 09/11/20 09:00 09/11/20 10:32 Paliperidone Palmitate 234 Mg/1.5 Ml Syringe IM Not Given Q30D [facility] Senna 17.2 mg 07/22/20 17:59 Sennosides 8.6 Mg Tablet PO DAILY PRN Constipation Allergies Allergies Allergy/AdvReac Type Severity Reaction Status Date / Time acetaminophen [From TYLENOL] Allergy Intermediate HIVES Verified 07/22/20 02:13 meperidine [From Demerol] Allergy Unknown Verified 07/22/20 02:10 Assessment & Plan Assessment & Plan (1) Fracture of greater tuberosity of left humerus: Status: Acute Code(s): S42.252A - Displaced fracture of greater tuberosity of left humerus, initial encounter for closed fracture (2) Schizoaffective disorder: Status: Acute Code(s): F25.9 - Schizoaffective disorder, unspecified Assessment and Plan: Pt refuses immobilizer sling-discontinue. Follow up [id number] fracture greater tuberosity -Discontinue 1:1. 5 minute safety checks -Decrease oxycodone to q 12 hours prn-taper. Pt will have used the medication for 4 weeks effective 09/25/20. Gradual improvement with increase in lability, irritability and anger.The course is up and down. Pt exhibiting more mood sx currently however, po compliance is very erratic so difficult to treat effectively. ? ECT eval. By history, family reports atypical [facility] takes about 3 months of treatment. Continue Olanzapine 5 mg bid. Olanzapine 10 mg daily prn. Will trial, if ineffective ?Vraylar, however it is only in PO form. Invega Sustenna 234 mg given 09/14.. Pt accepting of plan for respite, not residential at this time. She has returned to the belief that the civil commitment is fradulent. Greater than 50% of the session was spent on counseling and/or coordination of care Reason for contiued inpatient stay Substantial Risk for: harm to self, harm to others, inability to function, rapid decompensation and med/psych decompensation
[2020-09-26] MEDS: oxyCODONE HCl Immed Release 5 MG TABLET PO (14:24)
[2020-09-27] MEDS: Multivitamin TABLET 1 TAB PO (08:39)
[2020-09-27] MEDS: OLANZapine ODT 10 MG TAB.RAPDIS 5 MG TRANSLINGU ×2 (08:39→20:07)
[2020-09-27] MEDS: LORazepam 0.5 MG TABLET PO ×2 (08:39→20:07)
[2020-09-27] MEDS: metroNIDAZOLE 0.75 % Gel 45 GM TUBE 1 APPL TOPICAL ×2 (08:50→20:09)
[2020-09-27] MEDS: oxyCODONE HCl Immed Release 5 MG TABLET PO (14:08)
--- NOTE | 2020-09-27 18:02 | HO.PSYCHPN ---
Subjective Subjective Date of Service: 09/27/20 Reason For Visit: psychosis Subjective Notes: Section 8 Interim History: Team reports pt is more accepting of medications, with less lability. Will continue Olanzapine. Pt reports today she is feeling OK . Asks about her discharge plan. Discussed respite and return to her custodial, she responded Oh that is good, when? Discussed improved sx mgt and a more stable period of mood before those plans could be made, encouraged compliance with regime and discussion of what she would like for herself in moving forward in her life. She responded with a laugh- just good coffee. . Medication Compliance: Yes Side effects from medications: No Attending Groups: No Review of Systems Musculoskeletal: Reports other (intermittent arm/shoulder pain) Reports behavioral changes Psychiatric: Reports behavioral changes, Reports irritability, Reports mood swings and Reports paranoia Mental Status Exam Mental Status Exam Patient Appearance: Disheveled Patient Orientation: Person, Place and Situation Level of Consciousness: Alert Patient Behavior: Talkative and Good Eye Contact Mood Description: Labile Affect Description: Labile Patient Cognition Impaired: Yes Ability to Follow Directions: Good Speech Pattern: Spontaneous Speech Memory Description: Remote Impaired, Immediate Impaired and Shelter Impaired Hallucinations: None Delusions: Present Thought Process: Distracted Thought Content: positive for [place], positive for Circumstantial, positive for Preoccupation and positive for Tangential Depressive Symptoms: Increased Irritability Judgement: Fair Diagnostics Vital Signs (24Hr): Body Mass Index 41.8 Labs Results: 09/12/20 10:07 08/25/20 20:31 Imaging Radiology Impressions: ITS Impressions Humerus X-Ray 08/26/20 00:00 IMPRESSION: Nondisplaced fracture of the humeral head tuberosity. Humerus X-Ray 09/23/20 11:48 IMPRESSION: Healing fracture greater tuberosity. Medications Medications Current Medications Generic Name Dose Route Start Last Admin Trade Name Freq PRN Reason Stop Dose Admin Al Hydroxide/Mg Hydroxide 30 ml 07/22/20 16:17 Magnesium Hydrox/Alum Hydrox 30 Ml Oral.Susp PO Q6H PRN Heartburn/Nausea Ibuprofen 800 mg 08/26/20 01:21 09/26/20 09:24 Ibuprofen 800 Mg Tablet PO 800 mg Q8H PRN Administration Pain, Moderate (Pain Scale 4-6 Lisinopril 5 mg 07/23/20 09:00 09/27/20 08:41 Lisinopril 5 Mg Tablet PO Not Given DAILY [facility] Protocol Lorazepam 0.5 mg 09/01/20 21:00 09/27/20 08:39 Lorazepam 0.5 Mg Tablet PO 0.5 mg BID [facility] Administration Magnesium Hydroxide 30 ml 07/22/20 16:17 Milk Of Magnesia 30 Ml Oral.Susp PO DAILY PRN Constipation Melatonin 3 mg 07/22/20 17:58 09/17/20 21:05 Melatonin 3 Mg Tablet PO 3 mg BEDTIME PRN Administration Insomnia Metoprolol Tartrate 25 mg 07/22/20 21:00 09/27/20 08:41 Metoprolol Tartrate 25 Mg Tablet PO Not Given BID [facility] Protocol Metronidazole 1 appl 08/14/20 09:00 09/27/20 08:50 Metronidazole 0.75 % Gel 45 Gm Tube TOPICAL 1 appl BID [facility] Administration Multivitamins/Vitamin C 1 tab 07/23/20 09:00 09/27/20 08:39 Multivitamin Tablet PO 1 tab DAILY [facility] Administration Nystatin 1 appl 07/22/20 21:00 09/27/20 08:42 Nystatin Powder 15 Gm Bottle TOPICAL Not Given BID [facility] Protocol Olanzapine 5 mg 09/21/20 13:05 Olanzapine 10 Mg Vial IM BID PRN if pt ref po per court order Olanzapine 5 mg 09/22/20 21:00 09/27/20 08:39 Olanzapine Odt 10 Mg Tab.Rapdis TRANSLINGU 5 mg BID [facility] Administration Olanzapine 10 mg 09/22/20 16:24 Olanzapine Odt 10 Mg Tab.Rapdis TRANSLINGU DAILY PRN psychosis, agitation Oxycodone HCl 5 mg 09/21/20 13:01 09/27/20 14:08 Oxycodone Hcl Immed Release 5 Mg Tablet PO 5 mg BID PRN Administration Pain, Severe (Pain Scale 7-10) Paliperidone Palmitate 234 mg 09/11/20 09:00 09/11/20 10:32 Paliperidone Palmitate 234 Mg/1.5 Ml Syringe IM Not Given Q30D [facility] Senna 17.2 mg 07/22/20 17:59 Sennosides 8.6 Mg Tablet PO DAILY PRN Constipation Allergies Allergies Allergy/AdvReac Type Severity Reaction Status Date / Time acetaminophen [From TYLENOL] Allergy Intermediate HIVES Verified 07/22/20 02:13 meperidine [From Demerol] Allergy Unknown Verified 07/22/20 02:10 Assessment & Plan Assessment & Plan (1) Fracture of greater tuberosity of left humerus: Status: Acute Code(s): S42.252A - Displaced fracture of greater tuberosity of left humerus, initial encounter for closed fracture (2) Schizoaffective disorder: Status: Acute Code(s): F25.9 - Schizoaffective disorder, unspecified Assessment and Plan: Pt refuses immobilizer sling-discontinue. Follow up [id number] fracture greater tuberosity -Discontinue 1:1. 5 minute safety checks -Decrease oxycodone to q 12 hours prn-taper. Pt will have used the medication for 4 weeks effective 09/25/20. Gradual improvement with increase in lability, irritability and anger.The course is up and down. Pt exhibiting more mood sx currently however, po compliance is very erratic so difficult to treat effectively. ? ECT eval. By history, family reports atypical INFANTE takes about 3 months of treatment. Continue Olanzapine 5 mg bid. Olanzapine 10 mg daily prn. Will trial, if ineffective ?Alexlashaniqua, however it is only in PO form. Invega Sustenna 234 mg given 09/14.. Pt accepting of plan for respite, residential at this time. She is interactive today and believes the plan makes some sense for her well-being. Greater than 50% of the session was spent on counseling and/or coordination of care Reason for contiued inpatient stay Substantial Risk for: harm to self, harm to others, inability to function, rapid decompensation and med/psych decompensation
[2020-09-27] MEDS: Ibuprofen 800 MG TABLET PO (19:03)
[2020-09-28 05:20] VITALS: BP 153/82; PULSE 84; RESP 16; TEMP 36.1; O2SAT 96
[2020-09-28 07:00] VITALS: BMI 43.1
[2020-09-28] MEDS: Ibuprofen 800 MG TABLET PO (07:50)
[2020-09-28] MEDS: LORazepam 0.5 MG TABLET PO ×2 (09:10→20:58)
[2020-09-28] MEDS: OLANZapine ODT 10 MG TAB.RAPDIS 5 MG TRANSLINGU ×2 (09:10→20:58)
[2020-09-28] MEDS: Multivitamin TABLET 1 TAB PO (10:02)
--- NOTE | 2020-09-28 11:43 | P.PNPSI_ITS ---
Subjective Subjective Date of Service: 09/28/20 Reason For Visit: psychosis Subjective Notes: Section 8 Interim History: Sivan reports she is feeling well. She is clearer, bright, has good eye contact, initiates conversation, has humor and is visable on the unit. She is attentive to her ADL's today and appears alert without sedation. She is looking forward to the next phase of her transition plan. Medication Compliance: Yes Side effects from medications: No Attending Groups: Intermittent Review of Systems Comments: intermittent arm pain s/p fracture. Reports behavioral changes Psychiatric: Reports behavioral changes, Reports depression, Reports irritability and Reports mood swings Mental Status Exam Mental Status Exam Patient Appearance: Appropriate Patient Orientation: Person, Place and Situation Level of Consciousness: Awake and Alert Patient Behavior: Appropriate, Talkative, Cooperative, Distractible and Good Eye Contact Mood Description: Calm and Cheerful Affect Description: Calm Patient Cognition Impaired: Yes Ability to Follow Directions: Good Speech Pattern: Clear, Appropriate and Spontaneous Speech Memory Description: Remote Impaired, Immediate Impaired, Machine Accountant Impaired and Episodic Impaired Hallucinations: None Delusions: Not Present Thought Process: Intact Thought Content: positive for Intact Judgement: Fair Diagnostics Vital Signs (24Hr): Vital Signs - 24 hr 09/28/20 05:20 Temperature 97 F Pulse Rate 84 Respiratory Rate 16 Blood Pressure 153/82 H Pulse Oximetry 96 Body Mass Index 43.1 Labs Results: 09/12/20 10:07 08/25/20 20:31 Imaging Radiology Impressions: ITS Impressions Humerus X-Ray 08/26/20 00:00 IMPRESSION: Nondisplaced fracture of the humeral head tuberosity. Humerus X-Ray 09/23/20 11:48 IMPRESSION: Healing fracture greater tuberosity. Medications Medications Current Medications Generic Name Dose Route Start Last Admin Trade Name Freq PRN Reason Stop Dose Admin Al Hydroxide/Mg Hydroxide 30 ml 07/22/20 16:17 Magnesium Hydrox/Alum Hydrox 30 Ml Oral.Susp PO Q6H PRN Heartburn/Nausea Ibuprofen 800 mg 08/26/20 01:21 09/28/20 07:50 Ibuprofen 800 Mg Tablet PO 800 mg Q8H PRN Administration Pain, Moderate (Pain Scale 4-6 Lisinopril 5 mg 07/23/20 09:00 09/28/20 09:13 Lisinopril 5 Mg Tablet PO Not Given DAILY [facility] Protocol Lorazepam 0.5 mg 09/01/20 21:00 09/28/20 09:10 Lorazepam 0.5 Mg Tablet PO 0.5 mg BID [facility] Administration Magnesium Hydroxide 30 ml 07/22/20 16:17 Milk Of Magnesia 30 Ml Oral.Susp PO DAILY PRN Constipation Melatonin 3 mg 07/22/20 17:58 09/17/20 21:05 Melatonin 3 Mg Tablet PO 3 mg BEDTIME PRN Administration Insomnia Metoprolol Tartrate 25 mg 07/22/20 21:00 09/28/20 09:13 Metoprolol Tartrate 25 Mg Tablet PO Not Given BID [facility] Protocol Metronidazole 1 appl 08/14/20 09:00 09/28/20 10:03 Metronidazole 0.75 % Gel 45 Gm Tube TOPICAL 1 appl BID [facility] Administration Multivitamins/Vitamin C 1 tab 07/23/20 09:00 09/28/20 10:02 Multivitamin Tablet PO 1 tab DAILY [facility] Administration Nystatin 1 appl 07/22/20 21:00 09/28/20 10:01 Nystatin Powder 15 Gm Bottle TOPICAL 1 appl BID [facility] Administration Protocol Olanzapine 5 mg 09/21/20 13:05 Olanzapine 10 Mg Vial IM BID PRN if pt ref po per court order Olanzapine 5 mg 09/22/20 21:00 09/28/20 09:10 Olanzapine Odt 10 Mg Tab.Rapdis TRANSLINGU 5 mg BID [facility] Administration Olanzapine 10 mg 09/22/20 16:24 Olanzapine Odt 10 Mg Tab.Rapdis TRANSLINGU DAILY PRN psychosis, agitation Oxycodone HCl 5 mg 09/21/20 13:01 09/27/20 14:08 Oxycodone Hcl Immed Release 5 Mg Tablet PO 5 mg BID PRN Administration Pain, Severe (Pain Scale 7-10) Paliperidone Palmitate 234 mg 09/11/20 09:00 09/11/20 10:32 Paliperidone Palmitate 234 Mg/1.5 Ml Syringe IM Not Given Q30D [facility] Senna 17.2 mg 07/22/20 17:59 Sennosides 8.6 Mg Tablet PO DAILY PRN Constipation Allergies Allergies Allergy/AdvReac Type Severity Reaction Status Date / Time acetaminophen [From TYLENOL] Allergy Intermediate HIVES Verified 07/22/20 02:13 meperidine [From Demerol] Allergy Unknown Verified 07/22/20 02:10 Assessment & Plan Assessment & Plan (1) Fracture of greater tuberosity of left humerus: Status: Acute Code(s): S42.252A - Displaced fracture of greater tuberosity of left humerus, initial encounter for closed fracture (2) Schizoaffective disorder: Status: Acute Code(s): F25.9 - Schizoaffective disorder, unspecified Assessment and Plan: Pt refuses immobilizer sling-discontinue. Follow up [id number] fracture greater tuberosity -Discontinue 1:1. 5 minute safety checks -Decrease oxycodone to q 12 hours prn-taper to qd prn 10/02/20. Pt will have used the medication for 4 weeks effective 09/25/20. Gradual improvement with increase in lability, irritability and anger.The course is up and down. Pt exhibiting more mood sx currently however, po compliance is very erratic so difficult to treat effectively. ? ECT eval. By history, family reports atypical INFANTE takes about 3 months of treatment. Today, she appears well. Continue Olanzapine 5 mg bid. Olanzapine 10 mg daily prn. Will trial, if ineffective ?Vraylar, however it is only in PO form. Invega Sustenna 234 mg given 09/14.. Pt accepting of plan for respite, residential at this time. She is interactive today and believes the plan makes some sense for her well-being. Greater than 50% of the session was spent on counseling and/or coordination of care Reason for contiued inpatient stay Substantial Risk for: harm to self, harm to others, inability to function, rapid decompensation and med/psych decompensation
[2020-09-28 18:00] VITALS: RESP 15
[2020-09-28] MEDS: oxyCODONE HCl Immed Release 5 MG TABLET PO (19:47)
[2020-09-29] MEDS: LORazepam 0.5 MG TABLET PO ×2 (08:06→20:19)
[2020-09-29] MEDS: OLANZapine ODT 10 MG TAB.RAPDIS 5 MG TRANSLINGU ×2 (08:07→20:18)
[2020-09-29] MEDS: Multivitamin TABLET 1 TAB PO (08:07)
[2020-09-29] MEDS: oxyCODONE HCl Immed Release 5 MG TABLET PO (08:34)
[2020-09-29] MEDS: Ibuprofen 800 MG TABLET PO (08:35)
--- NOTE | 2020-09-29 16:28 | HO.PSYCHPN ---
Subjective Subjective Date of Service: 09/29/20 Reason For Visit: psychosis Subjective Notes: Section 8 Interim History: Interactive, visable, positive, three conversations with pt that were focused, without psychotic, accusatory content and were appropriate to her needs. Medication Compliance: Yes Side effects from medications: No Attending Groups: Intermittent Review of Systems Comments: intermittent arm pain. Reports behavioral changes Psychiatric: Reports behavioral changes, Reports depression, Reports difficulty concentrating, Reports irritability and Reports mood swings Mental Status Exam Mental Status Exam Patient Appearance: Appropriate Patient Orientation: Person, Place, Time and Situation Level of Consciousness: Awake and Alert Patient Behavior: Appropriate, Talkative, Cooperative, Distractible and Good Eye Contact Mood Description: Calm and Cheerful Affect Description: Calm Patient Cognition Impaired: Yes Ability to Follow Directions: Good Speech Pattern: Spontaneous Speech and Soft-Spoken Memory Description: Remote Impaired, Immediate Impaired and Shelter Impaired Hallucinations: None Delusions: Not Present Thought Process: Goal Oriented Thought Content: positive for Goal Oriented Depressive Symptoms: Diff. Making Decisions Judgement: Fair Diagnostics Vital Signs (24Hr): Vital Signs - 24 hr 09/28/20 18:00 Respiratory Rate 15 Body Mass Index 43.1 Labs Results: 09/12/20 10:07 08/25/20 20:31 Imaging Radiology Impressions: ITS Impressions Humerus X-Ray 08/26/20 00:00 IMPRESSION: Nondisplaced fracture of the humeral head tuberosity. Humerus X-Ray 09/23/20 11:48 IMPRESSION: Healing fracture greater tuberosity. Medications Medications Current Medications Generic Name Dose Route Start Last Admin Trade Name Freq PRN Reason Stop Dose Admin Al Hydroxide/Mg Hydroxide 30 ml 07/22/20 16:17 Magnesium Hydrox/Alum Hydrox 30 Ml Oral.Susp PO Q6H PRN Heartburn/Nausea Ibuprofen 800 mg 08/26/20 01:21 09/29/20 08:35 Ibuprofen 800 Mg Tablet PO 800 mg Q8H PRN Administration Pain, Moderate (Pain Scale 4-6 Lisinopril 5 mg 07/23/20 09:00 09/29/20 08:09 Lisinopril 5 Mg Tablet PO Not Given DAILY [facility] Protocol Lorazepam 0.5 mg 09/01/20 21:00 09/29/20 08:06 Lorazepam 0.5 Mg Tablet PO 0.5 mg BID [facility] Administration Magnesium Hydroxide 30 ml 07/22/20 16:17 Milk Of Magnesia 30 Ml Oral.Susp PO DAILY PRN Constipation Melatonin 3 mg 07/22/20 17:58 09/17/20 21:05 Melatonin 3 Mg Tablet PO 3 mg BEDTIME PRN Administration Insomnia Metoprolol Tartrate 25 mg 07/22/20 21:00 09/29/20 08:08 Metoprolol Tartrate 25 Mg Tablet PO Not Given BID [facility] Protocol Metronidazole 1 appl 08/14/20 09:00 09/29/20 08:08 Metronidazole 0.75 % Gel 45 Gm Tube TOPICAL Not Given BID [facility] Multivitamins/Vitamin C 1 tab 07/23/20 09:00 09/29/20 08:07 Multivitamin Tablet PO 1 tab DAILY [facility] Administration Nystatin 1 appl 07/22/20 21:00 09/29/20 08:09 Nystatin Powder 15 Gm Bottle TOPICAL Not Given BID [facility] Protocol Olanzapine 5 mg 09/21/20 13:05 Olanzapine 10 Mg Vial IM BID PRN if pt ref po per court order Olanzapine 5 mg 09/22/20 21:00 09/29/20 08:07 Olanzapine Odt 10 Mg Tab.Rapdis TRANSLINGU 5 mg BID [facility] Administration Olanzapine 10 mg 09/22/20 16:24 Olanzapine Odt 10 Mg Tab.Rapdis TRANSLINGU DAILY PRN psychosis, agitation Oxycodone HCl 5 mg 09/21/20 13:01 09/29/20 08:34 Oxycodone Hcl Immed Release 5 Mg Tablet PO 5 mg BID PRN Administration Pain, Severe (Pain Scale 7-10) Paliperidone Palmitate 234 mg 09/11/20 09:00 09/11/20 10:32 Paliperidone Palmitate 234 Mg/1.5 Ml Syringe IM Not Given Q30D [facility] Senna 17.2 mg 07/22/20 17:59 Sennosides 8.6 Mg Tablet PO DAILY PRN Constipation Allergies Allergies Allergy/AdvReac Type Severity Reaction Status Date / Time acetaminophen [From TYLENOL] Allergy Intermediate HIVES Verified 07/22/20 02:13 meperidine [From Demerol] Allergy Unknown Verified 07/22/20 02:10 Assessment & Plan Assessment & Plan (1) Fracture of greater tuberosity of left humerus: Status: Acute Code(s): S42.252A - Displaced fracture of greater tuberosity of left humerus, initial encounter for closed fracture (2) Schizoaffective disorder: Status: Acute Code(s): F25.9 - Schizoaffective disorder, unspecified Assessment and Plan: Pt refuses immobilizer sling-discontinue. Follow up [id number] fracture greater tuberosity -Discontinue 1:1. 5 minute safety checks -Decrease oxycodone to q 12 hours prn-taper to qd prn 10/02/20. Pt will have used the medication for 4 weeks effective 09/25/20. Gradual improvement with increase in lability, irritability and anger.The course is up and down. Pt exhibiting more mood sx currently however, po compliance is very erratic so difficult to treat effectively. ? ECT eval. By history, family reports atypical INFANTE takes about 3 months of treatment. Today, she appears well. Continue Olanzapine 5 mg bid. Olanzapine 10 mg daily prn. Will trial, if ineffective ?Vraylar, however it is only in PO form. Invega Sustenna 234 mg given 09/14. Next dose due 10/14/20 with labs, EKG prior to injection. Pt accepting of plan for respite, residential at this time. She is interactive today and believes the plan makes some sense for her well-being. Greater than 50% of the session was spent on counseling and/or coordination of care Reason for contiued inpatient stay Substantial Risk for: harm to self, harm to others, inability to function, rapid decompensation and med/psych decompensation
[2020-09-29 18:00] VITALS: RESP 18
--- NOTE | 2020-09-30 08:20 | HO.PSYCHPN ---
Subjective Subjective Date of Service: 09/30/20 Reason For Visit: psychosis Interim History: Chart reviewed; case discussed with team. Vitals reviewed: refuses BP pt warm and friendly, significantly more than in past with health underwriter; she says she's good' and that she slept well; she reports she has no complaints. Staff reports pt is overall doing much better and taking antipsychotic meds; she still refuses BP meds in milue more often, typically sitting on her own Medication Compliance: Yes Side effects from medications: No Attending Groups: Yes Mental Status Exam Mental Status Exam Narrative: Appearance: Appropriate Patient Orientation: Person, Place, Time and Situation Level of Consciousness: Awake and Alert Patient Behavior: friendly, cooperative, Good Eye Contact Mood Description: good Affect Description: congruent, almost cheerful Patient Cognition Impaired: Yes Ability to Follow Directions: Good Speech Pattern: Spontaneous Speech Memory Description: Remote Impaired, Immediate Impaired and Jamb Cutter Impaired Hallucinations: None Delusions: Not Present Thought Process: Goal Oriented Thought Content: positive for Goal Oriented Judgement: Fair Diagnostics Vital Signs (24Hr): Vital Signs - 24 hr 09/29/20 18:00 Respiratory Rate 18 Body Mass Index 43.1 Labs Results: 09/12/20 10:07 08/25/20 20:31 Imaging Radiology Impressions: ITS Impressions Humerus X-Ray 08/26/20 00:00 IMPRESSION: Nondisplaced fracture of the humeral head tuberosity. Humerus X-Ray 09/23/20 11:48 IMPRESSION: Healing fracture greater tuberosity. Medications Medications Current Medications Generic Name Dose Route Start Last Admin Trade Name Freq PRN Reason Stop Dose Admin Al Hydroxide/Mg Hydroxide 30 ml 07/22/20 16:17 Magnesium Hydrox/Alum Hydrox 30 Ml Oral.Susp PO Q6H PRN Heartburn/Nausea Ibuprofen 800 mg 08/26/20 01:21 09/29/20 08:35 Ibuprofen 800 Mg Tablet PO 800 mg Q8H PRN Administration Pain, Moderate (Pain Scale 4-6 Lisinopril 5 mg 07/23/20 09:00 09/29/20 08:09 Lisinopril 5 Mg Tablet PO Not Given DAILY [facility] Protocol Lorazepam 0.5 mg 09/01/20 21:00 09/29/20 20:19 Lorazepam 0.5 Mg Tablet PO 0.5 mg BID [facility] Administration Magnesium Hydroxide 30 ml 07/22/20 16:17 Milk Of Magnesia 30 Ml Oral.Susp PO DAILY PRN Constipation Melatonin 3 mg 07/22/20 17:58 09/17/20 21:05 Melatonin 3 Mg Tablet PO 3 mg BEDTIME PRN Administration Insomnia Metoprolol Tartrate 25 mg 07/22/20 21:00 09/29/20 20:45 Metoprolol Tartrate 25 Mg Tablet PO Not Given BID [facility] Protocol Metronidazole 1 appl 08/14/20 09:00 09/29/20 20:46 Metronidazole 0.75 % Gel 45 Gm Tube TOPICAL Not Given BID [facility] Multivitamins/Vitamin C 1 tab 07/23/20 09:00 09/29/20 08:07 Multivitamin Tablet PO 1 tab DAILY [facility] Administration Nystatin 1 appl 07/22/20 21:00 09/29/20 20:46 Nystatin Powder 15 Gm Bottle TOPICAL Not Given BID [facility] Protocol Olanzapine 5 mg 09/21/20 13:05 Olanzapine 10 Mg Vial IM BID PRN if pt ref po per court order Olanzapine 5 mg 09/22/20 21:00 09/29/20 20:18 Olanzapine Odt 10 Mg Tab.Rapdis TRANSLINGU 5 mg BID [facility] Administration Olanzapine 10 mg 09/22/20 16:24 Olanzapine Odt 10 Mg Tab.Rapdis TRANSLINGU DAILY PRN psychosis, agitation Oxycodone HCl 5 mg 09/21/20 13:01 09/29/20 08:34 Oxycodone Hcl Immed Release 5 Mg Tablet PO 5 mg BID PRN Administration Pain, Severe (Pain Scale 7-10) Paliperidone Palmitate 234 mg 09/11/20 09:00 09/11/20 10:32 Paliperidone Palmitate 234 Mg/1.5 Ml Syringe IM Not Given Q30D [facility] Senna 17.2 mg 07/22/20 17:59 Sennosides 8.6 Mg Tablet PO DAILY PRN Constipation Allergies Allergies Allergy/AdvReac Type Severity Reaction Status Date / Time acetaminophen [From TYLENOL] Allergy Intermediate HIVES Verified 07/22/20 02:13 meperidine [From Demerol] Allergy Unknown Verified 07/22/20 02:10 Assessment & Plan Assessment & Plan (1) Fracture of greater tuberosity of left humerus: Status: Acute Code(s): S42.252A - Displaced fracture of greater tuberosity of left humerus, initial encounter for closed fracture (2) Schizoaffective disorder: Status: Acute Code(s): F25.9 - Schizoaffective disorder, unspecified Assessment and Plan: 09/30/20 pt stable, good mood, taking antipsychotic meds, though refusing antihypertensives and Vitals no changes to current tx plan Pt refuses immobilizer sling-discontinue. Follow up [id number] fracture greater tuberosity -Discontinue 1:1. 5 minute safety checks -Decrease oxycodone to q 12 hours prn-taper to qd prn 10/02/20. Pt will have used the medication for 4 weeks effective 09/25/20. Gradual improvement with increase in lability, irritability and anger.The course is up and down. Pt exhibiting more mood sx currently however, po compliance is very erratic so difficult to treat effectively. ? ECT eval. By history, family reports atypical INFANTE takes about 3 months of treatment. Today, she appears well. Continue Olanzapine 5 mg bid. Olanzapine 10 mg daily prn. Will trial, if ineffective ?Vraylar, however it is only in PO form. Invega Sustenna 234 mg given 09/14. Next dose due 10/14/20 with labs, EKG prior to injection. Pt accepting of plan for respite, residential at this time. She is interactive today and believes the plan makes some sense for her well-being. Greater than 50% of the session was spent on counseling and/or coordination of care Reason for contiued inpatient stay Substantial Risk for: rapid decompensation
[2020-09-30] MEDS: LORazepam 0.5 MG TABLET PO ×2 (09:04→20:28)
[2020-09-30] MEDS: OLANZapine ODT 10 MG TAB.RAPDIS 5 MG TRANSLINGU ×2 (09:04→20:28)
[2020-09-30] MEDS: Multivitamin TABLET 1 TAB PO (09:05)
[2020-09-30 09:16] VITALS: BP 134/80; PULSE 87; O2SAT 99
[2020-09-30 09:18] VITALS: BP 134/80; PULSE 87
[2020-09-30 09:19] VITALS: BP 134/80; PULSE 87
[2020-09-30 18:00] VITALS: BP 144/72; PULSE 112; TEMP 35.8; O2SAT 95
[2020-09-30] MEDS: Ibuprofen 800 MG TABLET PO (18:44)
[2020-09-30 20:39] VITALS: BP 144/72; PULSE 112
[2020-10-01] MEDS: LORazepam 0.5 MG TABLET PO ×2 (08:35→19:49)
[2020-10-01] MEDS: OLANZapine ODT 10 MG TAB.RAPDIS 5 MG TRANSLINGU ×2 (09:15→19:49)
[2020-10-01] MEDS: metroNIDAZOLE 0.75 % Gel 45 GM TUBE 1 APPL TOPICAL ×2 (09:16→19:51)
--- NOTE | 2020-10-01 11:08 | HO.PSYCHPN ---
Subjective Subjective Date of Service: 10/01/20 Reason For Visit: psychosis Interim History: Chart reviewed; case discussed with team. Vitals reviewed: mild hypertension, tachycardic pt again friendly and calm; she says im' good...i'm in a good mood and denies any complaints. Staff informed mortgage or loan underwriter that last night she'd felt a little down, thinking of past boyfriend but was able to talk about it w/ staff and remain stable. Mental Status Exam Mental Status Exam Narrative: Appearance: Appropriate Patient Orientation: Person, Place, Time and Situation Level of Consciousness: Awake and Alert Patient Behavior: friendly, cooperative, Good Eye Contact Mood Description: im in a good mood Affect Description: congruent, almost cheerful Patient Cognition Impaired: Yes Ability to Follow Directions: Good Speech Pattern: Spontaneous Speech Memory Description: Remote Impaired, Immediate Impaired and Bell Spinner Sousaphones Impaired Hallucinations: None Delusions: Not Present Thought Process: Goal Oriented Thought Content: positive for Goal Oriented Judgement: Fair Diagnostics Vital Signs (24Hr): Vital Signs - 24 hr 09/30/20 18:00 09/30/20 20:39 Temperature 96.4 F L Pulse Rate 112 H 112 H Blood Pressure 144/72 H 144/72 H Pulse Oximetry 95 Body Mass Index 43.1 Labs Results: 09/12/20 10:07 08/25/20 20:31 Imaging Radiology Impressions: ITS Impressions Humerus X-Ray 08/26/20 00:00 IMPRESSION: Nondisplaced fracture of the humeral head tuberosity. Humerus X-Ray 09/23/20 11:48 IMPRESSION: Healing fracture greater tuberosity. Medications Medications Current Medications Generic Name Dose Route Start Last Admin Trade Name Freq PRN Reason Stop Dose Admin Al Hydroxide/Mg Hydroxide 30 ml 07/22/20 16:17 Magnesium Hydrox/Alum Hydrox 30 Ml Oral.Susp PO Q6H PRN Heartburn/Nausea Ibuprofen 800 mg 08/26/20 01:21 09/30/20 18:44 Ibuprofen 800 Mg Tablet PO 800 mg Q8H PRN Administration Pain, Moderate (Pain Scale 4-6 Lisinopril 5 mg 07/23/20 09:00 10/01/20 09:18 Lisinopril 5 Mg Tablet PO Not Given DAILY [facility] Protocol Lorazepam 0.5 mg 09/01/20 21:00 10/01/20 08:35 Lorazepam 0.5 Mg Tablet PO 0.5 mg BID [facility] Administration Magnesium Hydroxide 30 ml 07/22/20 16:17 Milk Of Magnesia 30 Ml Oral.Susp PO DAILY PRN Constipation Melatonin 3 mg 07/22/20 17:58 09/17/20 21:05 Melatonin 3 Mg Tablet PO 3 mg BEDTIME PRN Administration Insomnia Metoprolol Tartrate 25 mg 07/22/20 21:00 10/01/20 09:17 Metoprolol Tartrate 25 Mg Tablet PO Not Given BID [facility] Protocol Metronidazole 1 appl 08/14/20 09:00 10/01/20 09:16 Metronidazole 0.75 % Gel 45 Gm Tube TOPICAL 1 appl BID [facility] Administration Multivitamins/Vitamin C 1 tab 07/23/20 09:00 10/01/20 09:16 Multivitamin Tablet PO Not Given DAILY [facility] Nystatin 1 appl 07/22/20 21:00 10/01/20 09:16 Nystatin Powder 15 Gm Bottle TOPICAL Not Given BID [facility] Protocol Olanzapine 5 mg 09/21/20 13:05 Olanzapine 10 Mg Vial IM BID PRN if pt ref po per court order Olanzapine 5 mg 09/22/20 21:00 10/01/20 09:15 Olanzapine Odt 10 Mg Tab.Rapdis TRANSLINGU 5 mg BID [facility] Administration Olanzapine 10 mg 09/22/20 16:24 Olanzapine Odt 10 Mg Tab.Rapdis TRANSLINGU DAILY PRN psychosis, agitation Oxycodone HCl 5 mg 09/21/20 13:01 09/29/20 08:34 Oxycodone Hcl Immed Release 5 Mg Tablet PO 5 mg BID PRN Administration Pain, Severe (Pain Scale 7-10) Paliperidone Palmitate 234 mg 09/11/20 09:00 09/11/20 10:32 Paliperidone Palmitate 234 Mg/1.5 Ml Syringe IM Not Given Q30D [facility] Senna 17.2 mg 07/22/20 17:59 Sennosides 8.6 Mg Tablet PO DAILY PRN Constipation Allergies Allergies Allergy/AdvReac Type Severity Reaction Status Date / Time acetaminophen [From TYLENOL] Allergy Intermediate HIVES Verified 07/22/20 02:13 meperidine [From Demerol] Allergy Unknown Verified 07/22/20 02:10 Assessment & Plan Assessment & Plan (1) Fracture of greater tuberosity of left humerus: Status: Acute Code(s): S42.252A - Displaced fracture of greater tuberosity of left humerus, initial encounter for closed fracture (2) Schizoaffective disorder: Status: Acute Code(s): F25.9 - Schizoaffective disorder, unspecified Assessment and Plan: 10/01/20 pt remains stable and overall in good mood; continues to take antipsychotic meds no changes to current tx plan Pt refuses immobilizer sling-discontinue. Follow up [id number] fracture greater tuberosity -Discontinue 1:1. 5 minute safety checks -Decrease oxycodone to q 12 hours prn-taper to qd prn 10/02/20. Pt will have used the medication for 4 weeks effective 09/25/20. Gradual improvement with increase in lability, irritability and anger.The course is up and down. Pt exhibiting more mood sx currently however, po compliance is very erratic so difficult to treat effectively. ? ECT eval. By history, family reports atypical INFANTE takes about 3 months of treatment. Today, she appears well. Continue Olanzapine 5 mg bid. Olanzapine 10 mg daily prn. Will trial, if ineffective ?Vraylar, however it is only in PO form. Invega Sustenna 234 mg given 09/14. Next dose due 10/14/20 with labs, EKG prior to injection. Pt accepting of plan for respite, residential at this time. She is interactive today and believes the plan makes some sense for her well-being. Greater than 50% of the session was spent on counseling and/or coordination of care Reason for contiued inpatient stay Substantial Risk for: med/psych decompensation
[2020-10-01] MEDS: Ibuprofen 800 MG TABLET PO (16:00)
[2020-10-01] MEDS: oxyCODONE HCl Immed Release 5 MG TABLET PO (16:57)
[2020-10-01 17:48] VITALS: BP 117/88; PULSE 92; RESP 18; TEMP 36.4; O2SAT 96
[2020-10-02 05:50] VITALS: BP 130/77; PULSE 114; RESP 18; TEMP 36.6; O2SAT 97
[2020-10-02] MEDS: Multivitamin TABLET 1 TAB PO (09:04)
[2020-10-02] MEDS: LORazepam 0.5 MG TABLET PO ×2 (09:05→20:45)
[2020-10-02] MEDS: OLANZapine ODT 10 MG TAB.RAPDIS 5 MG TRANSLINGU (09:06)
[2020-10-02] MEDS: Ibuprofen 800 MG TABLET PO (14:49)
--- NOTE | 2020-10-02 15:57 | P.PNPSI_ITS ---
Subjective Subjective Date of Service: 10/02/20 Reason For Visit: psychosis Subjective Notes: Section 8 Interim History: Team reports slight improvement, however, pt discussed over the weekend that she did not believe her partner Jhony had . Continues to refuse some medications, making it difficult to target specific symptoms for treatment when PO is the option. Pt is pleasant today, but dismissive when the subject is approached regarding her symptoms, treatment, medicines and future planning. She believes it is all fallacy and our beliefs are mistaken and misguided. Medication Compliance: Yes Side effects from medications: No Attending Groups: Intermittent Review of Systems Review of Systems Yes all other systems are reviewed and are negative (denies) Reports behavioral changes and Reports confusion Psychiatric: Reports behavioral changes, Reports confusion, Reports depression, Reports difficulty concentrating and Reports mood swings Mental Status Exam Mental Status Exam Patient Appearance: Appropriate Patient Orientation: Person and Place Level of Consciousness: Alert Patient Behavior: Talkative, Suspicious, Resistive to Care, Distractible and Good Eye Contact Mood Description: Calm, Suspicious and Apprehensive Affect Description: Apprehensive Patient Cognition Impaired: Yes Ability to Follow Directions: Good Speech Pattern: Spontaneous Speech and Soft-Spoken Memory Description: Remote Impaired, Immediate Impaired, Snf Impaired and Episodic Impaired Hallucinations: None Delusions: Present Thought Process: Illogical, Distracted and Rumination Thought Content: positive for Perseveration and positive for Thought Blocking Depressive Symptoms: Difficulty Concentrating Judgement: Poor Diagnostics Vital Signs (24Hr): Vital Signs - 24 hr 10/01/20 17:48 10/02/20 05:50 Temperature 97.6 F 97.8 F Pulse Rate 92 114 H Respiratory Rate 18 18 Blood Pressure 117/88 130/77 Pulse Oximetry 96 97 Body Mass Index 43.1 Labs Results: 09/12/20 10:07 08/25/20 20:31 Imaging Radiology Impressions: ITS Impressions Humerus X-Ray 08/26/20 00:00 IMPRESSION: Nondisplaced fracture of the humeral head tuberosity. Humerus X-Ray 09/23/20 11:48 IMPRESSION: Healing fracture greater tuberosity. Medications Medications Current Medications Generic Name Dose Route Start Last Admin Trade Name Freq PRN Reason Stop Dose Admin Al Hydroxide/Mg Hydroxide 30 ml 07/22/20 16:17 Magnesium Hydrox/Alum Hydrox 30 Ml Oral.Susp PO Q6H PRN Heartburn/Nausea Ibuprofen 800 mg 08/26/20 01:21 10/02/20 14:49 Ibuprofen 800 Mg Tablet PO 800 mg Q8H PRN Administration Pain, Moderate (Pain Scale 4-6 Lisinopril 5 mg 07/23/20 09:00 10/02/20 10:29 Lisinopril 5 Mg Tablet PO Not Given DAILY [facility] Protocol Lorazepam 0.5 mg 09/01/20 21:00 10/02/20 09:05 Lorazepam 0.5 Mg Tablet PO 0.5 mg BID [facility] Administration Magnesium Hydroxide 30 ml 07/22/20 16:17 Milk Of Magnesia 30 Ml Oral.Susp PO DAILY PRN Constipation Melatonin 3 mg 07/22/20 17:58 09/17/20 21:05 Melatonin 3 Mg Tablet PO 3 mg BEDTIME PRN Administration Insomnia Metoprolol Tartrate 25 mg 07/22/20 21:00 10/02/20 10:30 Metoprolol Tartrate 25 Mg Tablet PO Not Given BID [facility] Protocol Metronidazole 1 appl 08/14/20 09:00 10/02/20 10:30 Metronidazole 0.75 % Gel 45 Gm Tube TOPICAL Not Given BID [facility] Multivitamins/Vitamin C 1 tab 07/23/20 09:00 10/02/20 09:04 Multivitamin Tablet PO 1 tab DAILY [facility] Administration Nystatin 1 appl 07/22/20 21:00 10/02/20 10:30 Nystatin Powder 15 Gm Bottle TOPICAL Not Given BID [facility] Protocol Olanzapine 5 mg 09/21/20 13:05 Olanzapine 10 Mg Vial IM BID PRN if pt ref po per court order Olanzapine 10 mg 09/22/20 16:24 Olanzapine Odt 10 Mg Tab.Rapdis TRANSLINGU DAILY PRN psychosis, agitation Olanzapine 10 mg 10/02/20 21:00 Olanzapine Odt 10 Mg Tab.Rapdis TRANSLINGU BID [facility] Oxycodone HCl 5 mg 09/21/20 13:01 10/01/20 16:57 Oxycodone Hcl Immed Release 5 Mg Tablet PO 5 mg BID PRN Administration Pain, Severe (Pain Scale 7-10) Paliperidone Palmitate 234 mg 09/11/20 09:00 09/11/20 10:32 Paliperidone Palmitate 234 Mg/1.5 Ml Syringe IM Not Given Q30D [facility] Senna 17.2 mg 07/22/20 17:59 Sennosides 8.6 Mg Tablet PO DAILY PRN Constipation Allergies Allergies Allergy/AdvReac Type Severity Reaction Status Date / Time acetaminophen [From TYLENOL] Allergy Intermediate HIVES Verified 07/22/20 02:13 meperidine [From Demerol] Allergy Unknown Verified 07/22/20 02:10 Assessment & Plan Assessment & Plan (1) Fracture of greater tuberosity of left humerus: Status: Acute Code(s): S42.252A - Displaced fracture of greater tuberosity of left humerus, initial encounter for closed fracture (2) Schizoaffective disorder: Status: Acute Code(s): F25.9 - Schizoaffective disorder, unspecified Assessment and Plan: Pt refuses immobilizer sling-discontinue. Follow up [id number] fracture greater tuberosity -Discontinue 1:1. 15 minute safety checks -Decrease oxycodone to q 24 hours prn-discontinue 10/09/20. Pt will have used the medication for 4 weeks effective 09/25/20. Gradual improvement with increase in lability, irritability and anger.The course is up and down. Pt exhibiting more mood sx currently however, po compliance is very erratic so difficult to treat effectively. ? ECT eval. By history, family reports atypical INFANTE takes about 3 months of treatment. Today, she appears well. Increase Olanzapine 10 mg bid. Olanzapine 10 mg daily prn. Will trial, if ineffective ?Vraylar, however it is only in PO form. Invega Sustenna 234 mg given 09/14. Next dose due 10/14/20 with labs, EKG prior to injection. Pt accepting of plan for respite, residential at this time. Greater than 50% of the session was spent on counseling and/or coordination of care Reason for contiued inpatient stay Substantial Risk for: harm to self, harm to others, inability to function, rapid decompensation and med/psych decompensation
[2020-10-02] MEDS: oxyCODONE HCl Immed Release 5 MG TABLET PO (16:39)
[2020-10-02] MEDS: OLANZapine ODT 10 MG TAB.RAPDIS TRANSLINGU (20:44)
[2020-10-03 06:20] VITALS: RESP 18
[2020-10-03] MEDS: OLANZapine ODT 10 MG TAB.RAPDIS TRANSLINGU ×2 (10:19→20:02)
[2020-10-03] MEDS: LORazepam 0.5 MG TABLET PO ×2 (10:19→20:02)
[2020-10-03] MEDS: Multivitamin TABLET 1 TAB PO (10:20)
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
[2020-10-03 18:00] VITALS: RESP 18
[2020-10-04 06:00] VITALS: BP 121/59; PULSE 100; TEMP 36.2; O2SAT 94
[2020-10-04] MEDS: Multivitamin TABLET 1 TAB PO (08:49)
[2020-10-04] MEDS: OLANZapine ODT 10 MG TAB.RAPDIS TRANSLINGU ×2 (08:49→22:22)
[2020-10-04] MEDS: LORazepam 0.5 MG TABLET PO ×2 (09:13→22:22)
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
[2020-10-04] MEDS: Ibuprofen 800 MG TABLET PO (14:09)
--- NOTE | 2020-10-04 17:44 | P.PNPSI_ITS ---
Subjective Subjective Date of Service: 10/04/20 Reason For Visit: psychosis Subjective Notes: Section 8 Interim History: You will never convince me that I have high blood pressure. I will never take blood pressure medications. Talking today with Sivan about preventative health maintenance. For most of the discussion she was labile, giggling and denied all issues/interventions discussed. She responded at the end of our discussion, we just need to be free, happy and not worry about these things, they do not matter. Who have you seen in concert? Discussed that moving to the next step of transition would require compliance with her plan, taking responsiblity for her health care and accepting a plan that she could follow. She responded with a smile and a laugh, stating no. Discussed with team submission of application for consideration to admit to LTC vs senior care as pt at this time is not wanting to accept a plan for her health care. Medication Compliance: Yes Side effects from medications: Yes (sedation) Attending Groups: Yes Review of Systems Review of Systems Yes all other systems are reviewed and are negative (denies) Reports behavioral changes Psychiatric: Reports behavioral changes, Reports depression, Reports difficulty concentrating, Reports auditory hallucinations, Reports hopelessness, Reports irritability, Reports anhedonia, Reports paranoia and Reports suicidal ideation ( sometimes ) Mental Status Exam Mental Status Exam Patient Appearance: Disheveled Patient Orientation: Person and Place Level of Consciousness: Awake, Sedated and Alert Patient Behavior: Guarded, Talkative, Suspicious, Sedated, Resistive to Care, Avoidant, Fatigued, Distractible and Good Eye Contact Mood Description: Calm, Withdrawn and Flat Affect Description: Flat Patient Cognition Impaired: Yes Ability to Follow Directions: Fair Speech Pattern: Spontaneous Speech, Soft-Spoken and Cofabulation Memory Description: Remote Impaired, Immediate Impaired, Intermediate Impaired and Episodic Impaired Hallucinations: None Delusions: Present Thought Process: Illogical and Distracted Thought Content: positive for Circumstantial, positive for Tangential and positive for Suicidal Ideation (denies) Depressive Symptoms: Diff. Making Decisions, Increased Irritability, Crying Spells and Thoughts of /Suicide (denies) Judgement: Poor Diagnostics Vital Signs (24Hr): Vital Signs - 24 hr 10/03/20 18:00 10/04/20 06:00 Temperature 97.1 F Pulse Rate 100 Respiratory Rate 18 Blood Pressure 121/59 L Pulse Oximetry 94 Body Mass Index 43.1 Labs Results: 09/12/20 10:07 08/25/20 20:31 Imaging Radiology Impressions: ITS Impressions Humerus X-Ray 08/26/20 00:00 IMPRESSION: Nondisplaced fracture of the humeral head tuberosity. Humerus X-Ray 09/23/20 11:48 IMPRESSION: Healing fracture greater tuberosity. Medications Medications Current Medications Generic Name Dose Route Start Last Admin Trade Name Freq PRN Reason Stop Dose Admin Al Hydroxide/Mg Hydroxide 30 ml 07/22/20 16:17 Magnesium Hydrox/Alum Hydrox 30 Ml Oral.Susp PO Q6H PRN Heartburn/Nausea Ibuprofen 800 mg 08/26/20 01:21 10/04/20 14:09 Ibuprofen 800 Mg Tablet PO 800 mg Q8H PRN Administration Pain, Moderate (Pain Scale 4-6 Lisinopril 5 mg 07/23/20 09:00 10/04/20 09:11 Lisinopril 5 Mg Tablet PO Not Given DAILY [facility] Protocol Lorazepam 0.5 mg 09/01/20 21:00 10/04/20 09:13 Lorazepam 0.5 Mg Tablet PO 0.5 mg BID [facility] Administration Magnesium Hydroxide 30 ml 07/22/20 16:17 Milk Of Magnesia 30 Ml Oral.Susp PO DAILY PRN Constipation Melatonin 3 mg 07/22/20 17:58 09/17/20 21:05 Melatonin 3 Mg Tablet PO 3 mg BEDTIME PRN Administration Insomnia Metoprolol Tartrate 25 mg 07/22/20 21:00 10/04/20 09:11 Metoprolol Tartrate 25 Mg Tablet PO Not Given BID [facility] Protocol Metronidazole 1 appl 08/14/20 09:00 10/04/20 09:12 Metronidazole 0.75 % Gel 45 Gm Tube TOPICAL Not Given BID [facility] Multivitamins/Vitamin C 1 tab 07/23/20 09:00 10/04/20 08:49 Multivitamin Tablet PO 1 tab DAILY [facility] Administration Nystatin 1 appl 07/22/20 21:00 10/04/20 09:12 Nystatin Powder 15 Gm Bottle TOPICAL Not Given BID [facility] Protocol Olanzapine 10 mg 09/22/20 16:24 Olanzapine Odt 10 Mg Tab.Rapdis TRANSLINGU DAILY PRN psychosis, agitation Olanzapine 10 mg 10/02/20 21:00 10/04/20 08:49 Olanzapine Odt 10 Mg Tab.Rapdis TRANSLINGU 10 mg BID [facility] Administration Olanzapine 10 mg 10/02/20 16:11 Olanzapine 10 Mg Vial IM BID PRN if pt refuses PO per court ord Oxycodone HCl 5 mg 10/02/20 16:08 10/02/20 16:39 Oxycodone Hcl Immed Release 5 Mg Tablet PO 5 mg DAILY PRN Administration Pain, Severe (Pain Scale 7-10) Paliperidone Palmitate 234 mg 09/11/20 09:00 09/11/20 10:32 Paliperidone Palmitate 234 Mg/1.5 Ml Syringe IM Not Given Q30D [facility] Senna 17.2 mg 07/22/20 17:59 Sennosides 8.6 Mg Tablet PO DAILY PRN Constipation Allergies Allergies Allergy/AdvReac Type Severity Reaction Status Date / Time acetaminophen [From TYLENOL] Allergy Intermediate HIVES Verified 07/22/20 02:13 meperidine [From Demerol] Allergy Unknown Verified 07/22/20 02:10 Assessment & Plan Assessment & Plan (1) Fracture of greater tuberosity of left humerus: Status: Acute Code(s): S42.252A - Displaced fracture of greater tuberosity of left humerus, initial encounter for closed fracture (2) Schizoaffective disorder: Status: Acute Code(s): F25.9 - Schizoaffective disorder, unspecified Assessment and Plan: Pt refuses immobilizer sling-discontinue. Follow up [id number] fracture greater tuberosity -Discontinue 1:1. 15 minute safety checks -Decrease oxycodone to q 24 hours prn-discontinue 10/09/20. Pt will have used the medication for 4 weeks effective 09/25/20. Variable improvement with increase in lability, irritability and anger.The course is up and down. Pt exhibiting more mood sx currently however, po compliance is very erratic so difficult to treat effectively. ? ECT eval. By history, family reports atypical INFANTE takes about 3 months of treatment. Today, labile, believes she has no medical issues to address Olanzapine 10 mg bid. Olanzapine 10 mg daily prn. Will trial, if ineffective ?Vraylar, however it is only in PO form. Pt declines. Discussed lamictal trial, and antihypertensive eval for new regime. She refuses. Invega Sustenna 234 mg given 09/14. Next dose due 10/14/20 with labs, EKG prior to injection. Pt accepting of plan for respite, residential at this time, unclear if this will be an option. Discussed LTC referral with team. Treatment summary completed. Greater than 50% of the session was spent on counseling and/or coordination of care Reason for contiued inpatient stay Substantial Risk for: harm to self, harm to others, inability to function, rapid decompensation and med/psych decompensation
[2020-10-05 07:00] VITALS: BMI 43.0
[2020-10-05] MEDS: LORazepam 0.5 MG TABLET PO ×2 (09:09→20:28)
[2020-10-05] MEDS: Multivitamin TABLET 1 TAB PO (09:09)
[2020-10-05] MEDS: OLANZapine ODT 10 MG TAB.RAPDIS TRANSLINGU ×2 (09:09→20:28)
[2020-10-05] MEDS: oxyCODONE HCl Immed Release 5 MG TABLET PO (09:12)
[2020-10-05] MEDS: Ibuprofen 800 MG TABLET PO ×2 (09:13→23:14)
--- NOTE | 2020-10-05 11:18 | HO.PSYCHPN ---
Subjective Subjective Date of Service: 10/05/20 Reason For Visit: psychosis Subjective Notes: Conditional Voluntary Interim History: Pt visable in milieu, approached team to inform them she accepted her medications. Denies issues of concern, except to ask when can she discharge-she then tells team she is feeling comfortable here and is not feeling stressed to discharge. Medication Compliance: Yes Side effects from medications: No Attending Groups: Intermittent Review of Systems Review of Systems Yes all other systems are reviewed and are negative Reports behavioral changes Psychiatric: Reports behavioral changes, Reports depression, Reports difficulty concentrating, Reports auditory hallucinations, Reports irritability, Reports mood swings and Reports paranoia Mental Status Exam Mental Status Exam Patient Appearance: Appropriate Patient Orientation: Person, Place, Time and Situation Level of Consciousness: Awake and Alert Patient Behavior: Appropriate, Guarded, Talkative, Suspicious, Distractible and Good Eye Contact Mood Description: Calm, Withdrawn and Constricted Affect Description: Constricted Patient Cognition Impaired: Yes Ability to Follow Directions: Good Speech Pattern: Spontaneous Speech and Soft-Spoken Memory Description: Remote Impaired, Immediate Impaired, [employer] Impaired and Episodic Impaired Hallucinations: Auditory Delusions: Present Thought Process: Illogical and Rumination Thought Content: positive for Perseveration and positive for Tangential Depressive Symptoms: Diff. Making Decisions Judgement: Poor Diagnostics Vital Signs (24Hr): Body Mass Index 43.1 Labs Results: 09/12/20 10:07 08/25/20 20:31 Imaging Radiology Impressions: ITS Impressions Humerus X-Ray 08/26/20 00:00 IMPRESSION: Nondisplaced fracture of the humeral head tuberosity. Humerus X-Ray 09/23/20 11:48 IMPRESSION: Healing fracture greater tuberosity. Medications Medications Current Medications Generic Name Dose Route Start Last Admin Trade Name Freq PRN Reason Stop Dose Admin Al Hydroxide/Mg Hydroxide 30 ml 07/22/20 16:17 Magnesium Hydrox/Alum Hydrox 30 Ml Oral.Susp PO Q6H PRN Heartburn/Nausea Ibuprofen 800 mg 08/26/20 01:21 10/05/20 09:13 Ibuprofen 800 Mg Tablet PO 800 mg Q8H PRN Administration Pain, Moderate (Pain Scale 4-6 Lisinopril 5 mg 07/23/20 09:00 10/05/20 09:21 Lisinopril 5 Mg Tablet PO Not Given DAILY [facility] Protocol Lorazepam 0.5 mg 09/01/20 21:00 10/05/20 09:09 Lorazepam 0.5 Mg Tablet PO 0.5 mg BID [facility] Administration Magnesium Hydroxide 30 ml 07/22/20 16:17 Milk Of Magnesia 30 Ml Oral.Susp PO DAILY PRN Constipation Melatonin 3 mg 07/22/20 17:58 09/17/20 21:05 Melatonin 3 Mg Tablet PO 3 mg BEDTIME PRN Administration Insomnia Metoprolol Tartrate 25 mg 07/22/20 21:00 10/05/20 09:21 Metoprolol Tartrate 25 Mg Tablet PO Not Given BID [facility] Protocol Metronidazole 1 appl 08/14/20 09:00 10/05/20 09:22 Metronidazole 0.75 % Gel 45 Gm Tube TOPICAL Not Given BID [facility] Multivitamins/Vitamin C 1 tab 07/23/20 09:00 10/05/20 09:09 Multivitamin Tablet PO 1 tab DAILY [facility] Administration Nystatin 1 appl 07/22/20 21:00 10/05/20 09:22 Nystatin Powder 15 Gm Bottle TOPICAL Not Given BID [facility] Protocol Olanzapine 10 mg 09/22/20 16:24 Olanzapine Odt 10 Mg Tab.Rapdis TRANSLINGU DAILY PRN psychosis, agitation Olanzapine 10 mg 10/02/20 21:00 10/05/20 09:09 Olanzapine Odt 10 Mg Tab.Rapdis TRANSLINGU 10 mg BID [facility] Administration Olanzapine 10 mg 10/02/20 16:11 Olanzapine 10 Mg Vial IM BID PRN if pt refuses PO per court ord Oxycodone HCl 5 mg 10/02/20 16:08 10/05/20 09:12 Oxycodone Hcl Immed Release 5 Mg Tablet PO 5 mg DAILY PRN Administration Pain, Severe (Pain Scale 7-10) Paliperidone Palmitate 234 mg 09/11/20 09:00 09/11/20 10:32 Paliperidone Palmitate 234 Mg/1.5 Ml Syringe IM Not Given Q30D [facility] Senna 17.2 mg 07/22/20 17:59 Sennosides 8.6 Mg Tablet PO DAILY PRN Constipation Allergies Allergies Allergy/AdvReac Type Severity Reaction Status Date / Time acetaminophen [From TYLENOL] Allergy Intermediate HIVES Verified 07/22/20 02:13 meperidine [From Demerol] Allergy Unknown Verified 07/22/20 02:10 Assessment & Plan Assessment & Plan (1) Fracture of greater tuberosity of left humerus: Status: Acute Code(s): S42.252A - Displaced fracture of greater tuberosity of left humerus, initial encounter for closed fracture (2) Schizoaffective disorder: Status: Acute Code(s): F25.9 - Schizoaffective disorder, unspecified Assessment and Plan: Pt refuses immobilizer sling-discontinue. Follow up [id number] fracture greater tuberosity -Discontinue 1:1. 15 minute safety checks -Decrease oxycodone to q 24 hours prn-discontinue 10/09/20. Pt will have used the medication for 4 weeks effective 09/25/20. Variable improvement with increase in lability, irritability and anger.The course is up and down. Pt exhibiting more mood sx currently however, po compliance is very erratic so difficult to treat effectively. ? ECT eval. By history, family reports atypical INFANTE takes about 3 months of treatment. Today, labile, believes she has no medical issues to address Olanzapine 10 mg bid. Olanzapine 10 mg daily prn. Will trial, if ineffective ?Vraylar, however it is only in PO form. Pt declines. Discussed lamictal trial, and antihypertensive eval for new regime. She refuses. Invega Sustenna 234 mg given 09/14. Next dose due 10/14/20 with labs, EKG prior to injection. Pt accepting of plan for respite, residential at this time, unclear if this will be an option. Discussed LTC referral with team. Treatment summary completed. Greater than 50% of the session was spent on counseling and/or coordination of care Reason for contiued inpatient stay Substantial Risk for: harm to self, harm to others, inability to function, rapid decompensation and med/psych decompensation
[2020-10-05 16:22] VITALS: RESP 16
[2020-10-06 06:00] VITALS: BP 113/58; PULSE 88; RESP 18; TEMP 36.1; O2SAT 96
[2020-10-06] MEDS: Multivitamin TABLET 1 TAB PO (09:02)
[2020-10-06] MEDS: LORazepam 0.5 MG TABLET PO ×2 (09:02→20:25)
[2020-10-06] MEDS: OLANZapine ODT 10 MG TAB.RAPDIS TRANSLINGU ×2 (09:07→20:25)
--- NOTE | 2020-10-06 15:53 | P.PNPSI_ITS ---
Subjective Subjective Date of Service: 10/06/20 Reason For Visit: psychosis Subjective Notes: Section 8 Interim History: Asking about discharge to respite. Visable, engaged, lability remains. Unrealistic in her account of medical issues, needs and need to follow POC. We are in process of application to LTC as pt is not improving and insight is poor into self-care, acceptance of assistance, need for treatment and acceptance of treatment. Medication Compliance: Yes Side effects from medications: No Attending Groups: Intermittent Review of Systems Reports behavioral changes Psychiatric: Reports behavioral changes, Reports difficulty concentrating, Reports irritability, Reports mood swings and Reports suicidal ideation (denies) Mental Status Exam Mental Status Exam Patient Appearance: Disheveled Patient Orientation: Person and Place Level of Consciousness: Awake and Alert Patient Behavior: Guarded, Talkative, Cooperative, Fearful, Resistive to Care, Distractible and Good Eye Contact Mood Description: Constricted Affect Description: Constricted Patient Cognition Impaired: Yes Ability to Follow Directions: Good Speech Pattern: Spontaneous Speech and Soft-Spoken Memory Description: Remote Impaired, Immediate Impaired, Custodial Impaired and Episodic Impaired Hallucinations: None Delusions: Present Thought Process: Illogical Thought Content: positive for [place], positive for Circumstantial, positive for Thought Blocking and positive for Tangential Depressive Symptoms: Increased Irritability, Feelings of Worthlessness, Hopelessness, Isolating-Friends/Family, Unhappiness, Increased Fatigue, Low Self Esteem and Difficulty Concentrating Judgement: Poor Diagnostics Vital Signs (24Hr): Vital Signs - 24 hr 10/05/20 16:22 10/06/20 06:00 Temperature 96.9 F Pulse Rate 88 Respiratory Rate 16 18 Blood Pressure 113/58 L Pulse Oximetry 96 Body Mass Index 43.0 Labs Results: 09/12/20 10:07 08/25/20 20:31 Imaging Radiology Impressions: ITS Impressions Humerus X-Ray 08/26/20 00:00 IMPRESSION: Nondisplaced fracture of the humeral head tuberosity. Humerus X-Ray 09/23/20 11:48 IMPRESSION: Healing fracture greater tuberosity. Medications Medications Current Medications Generic Name Dose Route Start Last Admin Trade Name Freq PRN Reason Stop Dose Admin Al Hydroxide/Mg Hydroxide 30 ml 07/22/20 16:17 Magnesium Hydrox/Alum Hydrox 30 Ml Oral.Susp PO Q6H PRN Heartburn/Nausea Ibuprofen 800 mg 08/26/20 01:21 10/05/20 23:14 Ibuprofen 800 Mg Tablet PO 800 mg Q8H PRN Administration Pain, Moderate (Pain Scale 4-6 Lisinopril 5 mg 07/23/20 09:00 10/06/20 09:07 Lisinopril 5 Mg Tablet PO Not Given DAILY [facility] Protocol Lorazepam 0.5 mg 09/01/20 21:00 10/06/20 09:02 Lorazepam 0.5 Mg Tablet PO 0.5 mg BID [facility] Administration Magnesium Hydroxide 30 ml 07/22/20 16:17 Milk Of Magnesia 30 Ml Oral.Susp PO DAILY PRN Constipation Melatonin 3 mg 07/22/20 17:58 09/17/20 21:05 Melatonin 3 Mg Tablet PO 3 mg BEDTIME PRN Administration Insomnia Metoprolol Tartrate 25 mg 07/22/20 21:00 10/06/20 09:07 Metoprolol Tartrate 25 Mg Tablet PO Not Given BID [facility] Protocol Metronidazole 1 appl 08/14/20 09:00 10/06/20 09:07 Metronidazole 0.75 % Gel 45 Gm Tube TOPICAL Not Given BID [facility] Multivitamins/Vitamin C 1 tab 07/23/20 09:00 10/06/20 09:02 Multivitamin Tablet PO 1 tab DAILY [facility] Administration Nystatin 1 appl 07/22/20 21:00 10/06/20 09:08 Nystatin Powder 15 Gm Bottle TOPICAL Not Given BID [facility] Protocol Olanzapine 10 mg 09/22/20 16:24 Olanzapine Odt 10 Mg Tab.Rapdis TRANSLINGU DAILY PRN psychosis, agitation Olanzapine 10 mg 10/02/20 21:00 10/06/20 09:07 Olanzapine Odt 10 Mg Tab.Rapdis TRANSLINGU 10 mg BID [facility] Administration Olanzapine 10 mg 10/02/20 16:11 Olanzapine 10 Mg Vial IM BID PRN if pt refuses PO per court ord Oxycodone HCl 5 mg 10/02/20 16:08 10/05/20 09:12 Oxycodone Hcl Immed Release 5 Mg Tablet PO 5 mg DAILY PRN Administration Pain, Severe (Pain Scale 7-10) Paliperidone Palmitate 234 mg 09/11/20 09:00 09/11/20 10:32 Paliperidone Palmitate 234 Mg/1.5 Ml Syringe IM Not Given Q30D [facility] Paliperidone Palmitate 234 mg 10/14/20 16:00 Paliperidone Palmitate 234 Mg/1.5 Ml Syringe IM Q30D [facility] Senna 17.2 mg 07/22/20 17:59 Sennosides 8.6 Mg Tablet PO DAILY PRN Constipation Allergies Allergies Allergy/AdvReac Type Severity Reaction Status Date / Time acetaminophen [From TYLENOL] Allergy Intermediate HIVES Verified 07/22/20 02:13 meperidine [From Demerol] Allergy Unknown Verified 07/22/20 02:10 Assessment & Plan Assessment & Plan (1) Fracture of greater tuberosity of left humerus: Status: Acute Code(s): S42.252A - Displaced fracture of greater tuberosity of left humerus, initial encounter for closed fracture (2) Schizoaffective disorder: Status: Acute Code(s): F25.9 - Schizoaffective disorder, unspecified Assessment and Plan: Pt refuses immobilizer sling-discontinue. Follow up [id number] fracture greater tuberosity -Discontinue 1:1. 15 minute safety checks -Decrease oxycodone to q 24 hours prn-discontinue 10/09/20. Pt will have used the medication for 4 weeks effective 09/25/20. Variable improvement with increase in lability, irritability and anger.The course is up and down. Pt exhibiting more mood sx currently however, po compliance is very erratic so difficult to treat effectively. ? ECT eval. By history, family reports atypical INFANTE takes about 3 months of treatment. Today, asking about discharge Olanzapine 10 mg bid. Olanzapine 10 mg daily prn. Will trial, if ineffective ?Vraylar, however it is only in PO form. Pt declines. Discussed lamictal trial, and antihypertensive eval for new regime. She refuses. Invega Sustenna 234 mg given 09/14. Next dose due 10/14/20 with labs, EKG prior to injection. All are ordered today. Pt accepting of plan for respite, residential at this time, unclear if this will be an option. Discussed LTC referral with team. Treatment summary completed. Greater than 50% of the session was spent on counseling and/or coordination of care Reason for contiued inpatient stay Substantial Risk for: harm to self, harm to others, inability to function, rapid decompensation and med/psych decompensation
[2020-10-06 17:54] VITALS: RESP 18
[2020-10-07] MEDS: LORazepam 0.5 MG TABLET PO ×2 (09:31→20:50)
[2020-10-07] MEDS: Multivitamin TABLET 1 TAB PO (09:33)
[2020-10-07] MEDS: OLANZapine ODT 10 MG TAB.RAPDIS TRANSLINGU ×2 (09:35→20:50)
--- NOTE | 2020-10-07 11:41 | P.PNPSI_ITS ---
Subjective Subjective Date of Service: 10/08/20 Reason For Visit: psychosis Interim History: Pt somewhat guarded this morning, declining to talk with this handbook writer. She reports she slept well. she denies SI/HI. She was more open with nursing about feeling frustrated about being in hospital, loss of boyfriend. She is taking medications as prescribed. Today she stayed mostly in bed, minimally interactive with peers. Review of Systems Review of Systems Yes all other systems are reviewed and are negative and Other Musculoskeletal: Reports myalgias, Reports arthralgias, Reports limited range of motion, Reports muscle weakness, Reports radiating pain into limb and Reports other (intermittent arm/shoulder pain) Reports behavioral changes, Reports confusion and Reports memory loss Psychiatric: Reports abnormal sleep pattern, Reports anxiety, Reports behavioral changes, Reports change in appetite, Reports confusion, Reports depression, Reports difficulty concentrating, Reports auditory hallucinations, Reports hopelessness, Reports irritability, Reports anhedonia, Reports memory loss, Reports mood swings, Reports paranoia, Reports visual hallucinations, Reports hallucinations, Reports homicidal ideation and Reports suicidal ideation (denies) Mental Status Exam Mental Status Exam Narrative: Appearance: Appropriate Patient Orientation: Person, Place, Time and Situation Level of Consciousness: Awake and Alert Patient Behavior: friendly, cooperative, Good Eye Contact Mood Description: okay Affect Description: constricted Patient Cognition Impaired: Yes Ability to Follow Directions: Good Speech Pattern: Spontaneous Speech Memory Description: Remote Impaired, Immediate Impaired and Bonded Strand Operator Impaired Hallucinations: None Delusions: Not Present Thought Process: Goal Oriented Thought Content: positive for Goal Oriented Judgement: Fair Diagnostics Vital Signs (24Hr): Vital Signs - 24 hr 10/07/20 18:00 Respiratory Rate 16 Body Mass Index 43.0 Labs Results: 09/12/20 10:07 08/25/20 20:31 Imaging Radiology Impressions: ITS Impressions Humerus X-Ray 08/26/20 00:00 IMPRESSION: Nondisplaced fracture of the humeral head tuberosity. Humerus X-Ray 09/23/20 11:48 IMPRESSION: Healing fracture greater tuberosity. Medications Medications Current Medications Generic Name Dose Route Start Last Admin Trade Name Freq PRN Reason Stop Dose Admin Al Hydroxide/Mg Hydroxide 30 ml 07/22/20 16:17 Magnesium Hydrox/Alum Hydrox 30 Ml Oral.Susp PO Q6H PRN Heartburn/Nausea Ibuprofen 800 mg 08/26/20 01:21 10/05/20 23:14 Ibuprofen 800 Mg Tablet PO 800 mg Q8H PRN Administration Pain, Moderate (Pain Scale 4-6 Lisinopril 5 mg 07/23/20 09:00 10/08/20 08:27 Lisinopril 5 Mg Tablet PO Not Given DAILY [facility] Protocol Lorazepam 0.5 mg 09/01/20 21:00 10/08/20 08:23 Lorazepam 0.5 Mg Tablet PO 0.5 mg BID [facility] Administration Magnesium Hydroxide 30 ml 07/22/20 16:17 Milk Of Magnesia 30 Ml Oral.Susp PO DAILY PRN Constipation Melatonin 3 mg 07/22/20 17:58 09/17/20 21:05 Melatonin 3 Mg Tablet PO 3 mg BEDTIME PRN Administration Insomnia Metoprolol Tartrate 25 mg 07/22/20 21:00 10/08/20 08:27 Metoprolol Tartrate 25 Mg Tablet PO Not Given BID [facility] Protocol Metronidazole 1 appl 08/14/20 09:00 10/08/20 08:27 Metronidazole 0.75 % Gel 45 Gm Tube TOPICAL Not Given BID [facility] Multivitamins/Vitamin C 1 tab 07/23/20 09:00 10/08/20 08:24 Multivitamin Tablet PO 1 tab DAILY [facility] Administration Nystatin 1 appl 07/22/20 21:00 10/08/20 08:27 Nystatin Powder 15 Gm Bottle TOPICAL Not Given BID [facility] Protocol Olanzapine 10 mg 09/22/20 16:24 Olanzapine Odt 10 Mg Tab.Rapdis TRANSLINGU DAILY PRN psychosis, agitation Olanzapine 10 mg 10/02/20 21:00 10/08/20 08:23 Olanzapine Odt 10 Mg Tab.Rapdis TRANSLINGU 10 mg BID [facility] Administration Olanzapine 10 mg 10/02/20 16:11 Olanzapine 10 Mg Vial IM BID PRN if pt refuses PO per court ord Paliperidone Palmitate 234 mg 09/11/20 09:00 09/11/20 10:32 Paliperidone Palmitate 234 Mg/1.5 Ml Syringe IM Not Given Q30D [facility] Paliperidone Palmitate 234 mg 10/14/20 16:00 Paliperidone Palmitate 234 Mg/1.5 Ml Syringe IM Q30D [facility] Senna 17.2 mg 07/22/20 17:59 Sennosides 8.6 Mg Tablet PO DAILY PRN Constipation Allergies Allergies Allergy/AdvReac Type Severity Reaction Status Date / Time acetaminophen [From TYLENOL] Allergy Intermediate HIVES Verified 07/22/20 02:13 meperidine [From Demerol] Allergy Unknown Verified 07/22/20 02:10 Assessment & Plan Assessment & Plan (1) Fracture of greater tuberosity of left humerus: Status: Acute Code(s): S42.252A - Displaced fracture of greater tuberosity of left humerus, initial encounter for closed fracture (2) Schizoaffective disorder: Status: Acute Code(s): F25.9 - Schizoaffective disorder, unspecified Assessment and Plan: Pt refuses immobilizer sling-discontinue. Follow up [id number] fracture greater tuberosity -Discontinue 1:1. 15 minute safety checks -Decrease oxycodone to q 24 hours prn-discontinue 10/09/20. Pt will have used the medication for 4 weeks effective 09/25/20. Variable improvement with increase in lability, irritability and anger.The course is up and down. Pt exhibiting more mood sx currently however, po compliance is very erratic so difficult to treat effectively. ? ECT eval. By history, family reports atypical INFANTE takes about 3 months of treatment. Today, asking about discharge Olanzapine 10 mg bid. Olanzapine 10 mg daily prn. Will trial, if ineffective ?Vraylar, however it is only in PO form. Pt declines. Discussed lamictal trial, and antihypertensive eval for new regime. She refuses. Invega Sustenna 234 mg given 09/14. Next dose due 10/14/20 with labs, EKG prior to injection. All are ordered today. Pt accepting of plan for respite, residential at this time, unclear if this will be an option. Discussed LTC referral with team. Treatment summary completed. Greater than 50% of the session was spent on counseling and/or coordination of care Reason for contiued inpatient stay Substantial Risk for: inability to function
[2020-10-07 18:00] VITALS: RESP 16
[2020-10-08] MEDS: OLANZapine ODT 10 MG TAB.RAPDIS TRANSLINGU ×2 (08:23→20:35)
[2020-10-08] MEDS: LORazepam 0.5 MG TABLET PO ×2 (08:23→20:35)
[2020-10-08] MEDS: Multivitamin TABLET 1 TAB PO (08:24)
--- NOTE | 2020-10-08 11:43 | HO.PSYCHPN ---
Subjective Subjective Date of Service: 10/08/20 Reason For Visit: psychosis Interim History: Pt more visible today, but again not very talkative as she was last week. She denies SI/HI. She has been mostly in her room, minimally interactive with peers. She denies any concerns with current medications, although insight about mental illness is poor. No behavioral concerns. Review of Systems Review of Systems Yes all other systems are reviewed and are negative Musculoskeletal: Reports myalgias, Reports arthralgias, Reports limited range of motion, Reports muscle weakness, Reports radiating pain into limb and Reports other (intermittent arm/shoulder pain) Reports behavioral changes, Reports confusion and Reports memory loss Psychiatric: Reports abnormal sleep pattern, Reports anxiety, Reports behavioral changes, Reports change in appetite, Reports confusion, Reports depression, Reports difficulty concentrating, Reports auditory hallucinations, Reports hopelessness, Reports irritability, Reports anhedonia, Reports memory loss, Reports mood swings, Reports paranoia, Reports visual hallucinations, Reports hallucinations, Reports homicidal ideation and Reports suicidal ideation (denies) Mental Status Exam Mental Status Exam Narrative: Appearance: Appropriate Patient Orientation: Person, Place, Time and Situation Level of Consciousness: Awake and Alert Patient Behavior: friendly, cooperative, Good Eye Contact Mood Description: okay Affect Description: constricted Patient Cognition Impaired: Yes Ability to Follow Directions: Good Speech Pattern: Spontaneous Speech Memory Description: Remote Impaired, Immediate Impaired and Fci Impaired Hallucinations: None Delusions: Not Present Thought Process: Goal Oriented Thought Content: positive for Goal Oriented Judgement: Fair Diagnostics Vital Signs (24Hr): Vital Signs - 24 hr 10/07/20 18:00 Respiratory Rate 16 Body Mass Index 43.0 Labs Results: 09/12/20 10:07 08/25/20 20:31 Imaging Radiology Impressions: ITS Impressions Humerus X-Ray 08/26/20 00:00 IMPRESSION: Nondisplaced fracture of the humeral head tuberosity. Humerus X-Ray 09/23/20 11:48 IMPRESSION: Healing fracture greater tuberosity. Medications Medications Current Medications Generic Name Dose Route Start Last Admin Trade Name Freq PRN Reason Stop Dose Admin Al Hydroxide/Mg Hydroxide 30 ml 07/22/20 16:17 Magnesium Hydrox/Alum Hydrox 30 Ml Oral.Susp PO Q6H PRN Heartburn/Nausea Ibuprofen 800 mg 08/26/20 01:21 10/05/20 23:14 Ibuprofen 800 Mg Tablet PO 800 mg Q8H PRN Administration Pain, Moderate (Pain Scale 4-6 Lisinopril 5 mg 07/23/20 09:00 10/08/20 08:27 Lisinopril 5 Mg Tablet PO Not Given DAILY [facility] Protocol Lorazepam 0.5 mg 09/01/20 21:00 10/08/20 08:23 Lorazepam 0.5 Mg Tablet PO 0.5 mg BID [facility] Administration Magnesium Hydroxide 30 ml 07/22/20 16:17 Milk Of Magnesia 30 Ml Oral.Susp PO DAILY PRN Constipation Melatonin 3 mg 07/22/20 17:58 09/17/20 21:05 Melatonin 3 Mg Tablet PO 3 mg BEDTIME PRN Administration Insomnia Metoprolol Tartrate 25 mg 07/22/20 21:00 10/08/20 08:27 Metoprolol Tartrate 25 Mg Tablet PO Not Given BID [facility] Protocol Metronidazole 1 appl 08/14/20 09:00 10/08/20 08:27 Metronidazole 0.75 % Gel 45 Gm Tube TOPICAL Not Given BID [facility] Multivitamins/Vitamin C 1 tab 07/23/20 09:00 10/08/20 08:24 Multivitamin Tablet PO 1 tab DAILY [facility] Administration Nystatin 1 appl 07/22/20 21:00 10/08/20 08:27 Nystatin Powder 15 Gm Bottle TOPICAL Not Given BID [facility] Protocol Olanzapine 10 mg 09/22/20 16:24 Olanzapine Odt 10 Mg Tab.Rapdis TRANSLINGU DAILY PRN psychosis, agitation Olanzapine 10 mg 10/02/20 21:00 10/08/20 08:23 Olanzapine Odt 10 Mg Tab.Rapdis TRANSLINGU 10 mg BID [facility] Administration Olanzapine 10 mg 10/02/20 16:11 Olanzapine 10 Mg Vial IM BID PRN if pt refuses PO per court ord Paliperidone Palmitate 234 mg 09/11/20 09:00 09/11/20 10:32 Paliperidone Palmitate 234 Mg/1.5 Ml Syringe IM Not Given Q30D [facility] Paliperidone Palmitate 234 mg 10/14/20 16:00 Paliperidone Palmitate 234 Mg/1.5 Ml Syringe IM Q30D [facility] Senna 17.2 mg 07/22/20 17:59 Sennosides 8.6 Mg Tablet PO DAILY PRN Constipation Allergies Allergies Allergy/AdvReac Type Severity Reaction Status Date / Time acetaminophen [From TYLENOL] Allergy Intermediate HIVES Verified 07/22/20 02:13 meperidine [From Demerol] Allergy Unknown Verified 07/22/20 02:10 Assessment & Plan Assessment & Plan (1) Fracture of greater tuberosity of left humerus: Status: Acute Code(s): S42.252A - Displaced fracture of greater tuberosity of left humerus, initial encounter for closed fracture (2) Schizoaffective disorder: Status: Acute Code(s): F25.9 - Schizoaffective disorder, unspecified Assessment and Plan: Pt refuses immobilizer sling-discontinue. Follow up [id number] fracture greater tuberosity -Discontinue 1:1. 15 minute safety checks -Decrease oxycodone to q 24 hours prn-discontinue 10/09/20. Pt will have used the medication for 4 weeks effective 09/25/20. Variable improvement with increase in lability, irritability and anger.The course is up and down. Pt exhibiting more mood sx currently however, po compliance is very erratic so difficult to treat effectively. ? ECT eval. By history, family reports atypical INFANTE takes about 3 months of treatment. Today, asking about discharge Olanzapine 10 mg bid. Olanzapine 10 mg daily prn. Will trial, if ineffective ?Vraylar, however it is only in PO form. Pt declines. Discussed lamictal trial, and antihypertensive eval for new regime. She refuses. Invega Sustenna 234 mg given 09/14. Next dose due 10/14/20 with labs, EKG prior to injection. All are ordered today. Pt accepting of plan for respite, residential at this time, unclear if this will be an option. Discussed LTC referral with team. Treatment summary completed. Greater than 50% of the session was spent on counseling and/or coordination of care Reason for contiued inpatient stay Substantial Risk for: inability to function
[2020-10-08 16:45] VITALS: TEMP 36.4
[2020-10-08] MEDS: Ibuprofen 800 MG TABLET PO (16:52)
[2020-10-09 06:00] VITALS: BP 140/68; PULSE 82; TEMP 36.2; O2SAT 96
[2020-10-09] MEDS: Ibuprofen 800 MG TABLET PO ×2 (07:08→14:15)
[2020-10-09] MEDS: Multivitamin TABLET 1 TAB PO (08:02)
[2020-10-09] MEDS: OLANZapine ODT 10 MG TAB.RAPDIS TRANSLINGU ×2 (08:02→21:42)
[2020-10-09] MEDS: LORazepam 0.5 MG TABLET PO ×2 (08:03→21:42)
[2020-10-09] MEDS: metroNIDAZOLE 0.75 % Gel 45 GM TUBE 1 APPL TOPICAL (08:05)
--- NOTE | 2020-10-09 10:16 | HO.PSYCHPN ---
Subjective Subjective Date of Service: 10/09/20 Reason For Visit: psychosis Interim History: [employer] Manager covering for Carolin Montiel Pt lying in bed; promotion writer explains coverage for primary provider. Pt reports she's good; denies depression, SI, AVH. Does not need anything. She knows that eKg and labs are ordered for her but she said she will not allow this saying she does not need it; promotion writer can persuade her otherwise. She is curios about DC and promotion writer agreed to discuss further with team Mental Status Exam Mental Status Exam Narrative: Appearance: Appropriate Patient Orientation: Person, Place, Time and Situation Level of Consciousness: Awake and Alert Patient Behavior: friendly, cooperative, Good Eye Contact Mood Description: good Affect Description: constricted Patient Cognition Impaired: Yes Ability to Follow Directions: Good Speech Pattern: Spontaneous Speech Memory Description: Remote Impaired, Immediate Impaired and Long-Term Impaired Hallucinations: None Delusions: Not Present Thought Process: Goal Oriented Thought Content: positive for Goal Oriented Judgement: Fair Diagnostics Vital Signs (24Hr): Vital Signs - 24 hr 10/08/20 16:45 10/09/20 06:00 Temperature 97.6 F 97.2 F Pulse Rate 82 Blood Pressure 140/68 H Pulse Oximetry 96 Body Mass Index 43.0 Labs Results: 09/12/20 10:07 08/25/20 20:31 Imaging Radiology Impressions: ITS Impressions Humerus X-Ray 08/26/20 00:00 IMPRESSION: Nondisplaced fracture of the humeral head tuberosity. Humerus X-Ray 09/23/20 11:48 IMPRESSION: Healing fracture greater tuberosity. EKG Date of Service: 09/12/20 Procedure(s): ECG 12 lead EKG Accession Number(s): [id number] Test Reason : CHECK QT Blood Pressure : / mmHG Vent. Rate : 080 BPM Atrial Rate : 080 BPM P-R Int : 174 ms QRS Dur : 080 ms QT Int : 388 ms P-R-T Axes : 063 -13 046 degrees QTc Int : 447 ms Normal sinus rhythm Normal ECG When compared with ECG of 27-AUG-2020 19:14, No significant change was found Medications Medications Current Medications Generic Name Dose Route Start Last Admin Trade Name Freq PRN Reason Stop Dose Admin Al Hydroxide/Mg Hydroxide 30 ml 07/22/20 16:17 Magnesium Hydrox/Alum Hydrox 30 Ml Oral.Susp PO Q6H PRN Heartburn/Nausea Ibuprofen 800 mg 08/26/20 01:21 10/09/20 07:08 Ibuprofen 800 Mg Tablet PO 800 mg Q8H PRN Administration Pain, Moderate (Pain Scale 4-6 Lisinopril 5 mg 07/23/20 09:00 10/09/20 08:05 Lisinopril 5 Mg Tablet PO Not Given DAILY [facility] Protocol Lorazepam 0.5 mg 09/01/20 21:00 10/09/20 08:03 Lorazepam 0.5 Mg Tablet PO 0.5 mg BID [facility] Administration Magnesium Hydroxide 30 ml 07/22/20 16:17 Milk Of Magnesia 30 Ml Oral.Susp PO DAILY PRN Constipation Melatonin 3 mg 07/22/20 17:58 09/17/20 21:05 Melatonin 3 Mg Tablet PO 3 mg BEDTIME PRN Administration Insomnia Metoprolol Tartrate 25 mg 07/22/20 21:00 10/09/20 08:05 Metoprolol Tartrate 25 Mg Tablet PO Not Given BID [facility] Protocol Metronidazole 1 appl 08/14/20 09:00 10/09/20 08:05 Metronidazole 0.75 % Gel 45 Gm Tube TOPICAL 1 appl BID [facility] Administration Multivitamins/Vitamin C 1 tab 07/23/20 09:00 10/09/20 08:02 Multivitamin Tablet PO 1 tab DAILY [facility] Administration Nystatin 1 appl 07/22/20 21:00 10/09/20 08:07 Nystatin Powder 15 Gm Bottle TOPICAL Not Given BID [facility] Protocol Olanzapine 10 mg 09/22/20 16:24 Olanzapine Odt 10 Mg Tab.Rapdis TRANSLINGU DAILY PRN psychosis, agitation Olanzapine 10 mg 10/02/20 21:00 10/09/20 08:02 Olanzapine Odt 10 Mg Tab.Rapdis TRANSLINGU 10 mg BID [facility] Administration Olanzapine 10 mg 10/02/20 16:11 Olanzapine 10 Mg Vial IM BID PRN if pt refuses PO per court ord Paliperidone Palmitate 234 mg 09/11/20 09:00 09/11/20 10:32 Paliperidone Palmitate 234 Mg/1.5 Ml Syringe IM Not Given Q30D [facility] Paliperidone Palmitate 234 mg 10/14/20 16:00 Paliperidone Palmitate 234 Mg/1.5 Ml Syringe IM Q30D [facility] Senna 17.2 mg 07/22/20 17:59 Sennosides 8.6 Mg Tablet PO DAILY PRN Constipation Allergies Allergies Allergy/AdvReac Type Severity Reaction Status Date / Time acetaminophen [From TYLENOL] Allergy Intermediate HIVES Verified 07/22/20 02:13 meperidine [From Demerol] Allergy Unknown Verified 07/22/20 02:10 Assessment & Plan Assessment & Plan (1) Fracture of greater tuberosity of left humerus: Status: Acute Code(s): S42.252A - Displaced fracture of greater tuberosity of left humerus, initial encounter for closed fracture (2) Schizoaffective disorder: Status: Acute Code(s): F25.9 - Schizoaffective disorder, unspecified Assessment and Plan: PLAN Invega Sustenna 234 mg given 09/14. Next dose to be given on 10/11/20 (30 days from prior) Pt refuses labs and EKG, however most recent EKG is with a just barely prolonged Qtc; pt has no other cardiac history and Torsades is rare; here, benefit outweighs the risk as pt has stabilized considerably on this medication. Pt is unconcerned about this risk. Otherwise continue with primary tx plan: Pt refuses immobilizer sling-discontinue. Follow up [id number] fracture greater tuberosity -Discontinue 1:1. 15 minute safety checks -Decrease oxycodone to q 24 hours prn-discontinue 10/09/20. Pt will have used the medication for 4 weeks effective 09/25/20. Variable improvement with increase in lability, irritability and anger.The course is up and down. Pt exhibiting more mood sx currently however, po compliance is very erratic so difficult to treat effectively. ? ECT eval. By history, family reports atypical INFANTE takes about 3 months of treatment. Today, asking about discharge Olanzapine 10 mg bid. Olanzapine 10 mg daily prn. Will trial, if ineffective ?Vraylar, however it is only in PO form. Pt declines. Discussed lamictal trial, and antihypertensive eval for new regime. She refuses. Pt accepting of plan for respite, residential at this time, unclear if this will be an option. Discussed LTC referral with team. Treatment summary completed. Greater than 50% of the session was spent on counseling and/or coordination of care Reason for contiued inpatient stay Substantial Risk for: med/psych decompensation
[2020-10-10] MEDS: OLANZapine ODT 10 MG TAB.RAPDIS TRANSLINGU ×2 (09:09→21:39)
--- NOTE | 2020-10-10 17:02 | P.PNPSI_ITS ---
Subjective Subjective Date of Service: 10/10/20 Reason For Visit: psychosis Interim History: Pt sitting in bed. She says i'm good...I'm good She then says when I am getting discharged? santos woods said he would set up discussion with LUBNA Reid to which patient said but she's not doing anything Cable Worker Helper attempted to explain, but pt repeated But she's not doing anything. Pt seemed to accept that staff writer will get Jeanette involved. Medication Compliance: Yes Side effects from medications: No Attending Groups: No Mental Status Exam Mental Status Exam Narrative: Appearance: Appropriate attire; perhaps some roscea on face Patient Orientation: Person, Place, Time and Situation Level of Consciousness: Awake and Alert Patient Behavior: friendly, cooperative, Good Eye Contact Mood Description: good Affect Description: constricted Patient Cognition Impaired: Yes Ability to Follow Directions: Good Speech Pattern: Spontaneous Speech Memory Description: Remote Impaired, Immediate Impaired and Intermediate Impaired Hallucinations: None Delusions: Not Present Thought Process: Goal Oriented Thought Content: positive for Goal Oriented Judgement: Fair Diagnostics Vital Signs (24Hr): Body Mass Index 43.0 Labs Results: 09/12/20 10:07 08/25/20 20:31 Imaging Radiology Impressions: ITS Impressions Humerus X-Ray 08/26/20 00:00 IMPRESSION: Nondisplaced fracture of the humeral head tuberosity. Humerus X-Ray 09/23/20 11:48 IMPRESSION: Healing fracture greater tuberosity. Medications Medications Current Medications Generic Name Dose Route Start Last Admin Trade Name Freq PRN Reason Stop Dose Admin Al Hydroxide/Mg Hydroxide 30 ml 07/22/20 16:17 Magnesium Hydrox/Alum Hydrox 30 Ml Oral.Susp PO Q6H PRN Heartburn/Nausea Ibuprofen 800 mg 08/26/20 01:21 10/09/20 14:15 Ibuprofen 800 Mg Tablet PO 800 mg Q8H PRN Administration Pain, Moderate (Pain Scale 4-6 Lisinopril 5 mg 07/23/20 09:00 10/10/20 10:40 Lisinopril 5 Mg Tablet PO Not Given DAILY [facility] Protocol Lorazepam 0.5 mg 09/01/20 21:00 10/10/20 10:41 Lorazepam 0.5 Mg Tablet PO Not Given BID [facility] Magnesium Hydroxide 30 ml 07/22/20 16:17 Milk Of Magnesia 30 Ml Oral.Susp PO DAILY PRN Constipation Melatonin 3 mg 07/22/20 17:58 09/17/20 21:05 Melatonin 3 Mg Tablet PO 3 mg BEDTIME PRN Administration Insomnia Metoprolol Tartrate 25 mg 07/22/20 21:00 10/10/20 10:41 Metoprolol Tartrate 25 Mg Tablet PO Not Given BID [facility] Protocol Metronidazole 1 appl 08/14/20 09:00 10/10/20 10:42 Metronidazole 0.75 % Gel 45 Gm Tube TOPICAL Not Given BID [facility] Multivitamins/Vitamin C 1 tab 07/23/20 09:00 10/10/20 10:42 Multivitamin Tablet PO Not Given DAILY [facility] Patient Own 234 each 10/11/20 16:00 Medication Invega IM Sustenna 234 Mg Q30D [facility] Nystatin 1 appl 07/22/20 21:00 10/10/20 10:42 Nystatin Powder 15 Gm Bottle TOPICAL Not Given BID [facility] Protocol Olanzapine 10 mg 09/22/20 16:24 Olanzapine Odt 10 Mg Tab.Rapdis TRANSLINGU DAILY PRN psychosis, agitation Olanzapine 10 mg 10/02/20 21:00 10/10/20 09:09 Olanzapine Odt 10 Mg Tab.Rapdis TRANSLINGU 10 mg BID [facility] Administration Olanzapine 10 mg 10/02/20 16:11 Olanzapine 10 Mg Vial IM BID PRN if pt refuses PO per court ord Paliperidone Palmitate 234 mg 09/11/20 09:00 09/11/20 10:32 Paliperidone Palmitate 234 Mg/1.5 Ml Syringe IM Not Given Q30D [facility] Senna 17.2 mg 07/22/20 17:59 Sennosides 8.6 Mg Tablet PO DAILY PRN Constipation Allergies Allergies Allergy/AdvReac Type Severity Reaction Status Date / Time acetaminophen [From TYLENOL] Allergy Intermediate HIVES Verified 07/22/20 02:13 meperidine [From Demerol] Allergy Unknown Verified 07/22/20 02:10 Assessment & Plan Assessment & Plan (1) Fracture of greater tuberosity of left humerus: Status: Acute Code(s): S42.252A - Displaced fracture of greater tuberosity of left humerus, initial encounter for closed fracture (2) Schizoaffective disorder: Status: Acute Code(s): F25.9 - Schizoaffective disorder, unspecified Assessment and Plan: no changes to current tx plan below PLAN Invega Sustenna 234 mg given 09/14. Next dose to be given on 10/11/20 (30 days from prior) Pt refuses labs and EKG, however most recent EKG is with a just barely prolonged Qtc; pt has no other cardiac history and Torsades is rare; here, benefit outweighs the risk as pt has stabilized considerably on this medication. Pt is unconcerned about this risk. Otherwise continue with primary tx plan: Pt refuses immobilizer sling-discontinue. Follow up [id number] fracture greater tuberosity -Discontinue 1:1. 15 minute safety checks -Decrease oxycodone to q 24 hours prn-discontinue 10/09/20. Pt will have used the medication for 4 weeks effective 09/25/20. Variable improvement with increase in lability, irritability and anger.The course is up and down. Pt exhibiting more mood sx currently however, po compliance is very erratic so difficult to treat effectively. ? ECT eval. By history, family reports atypical INFANTE takes about 3 months of treatment. Today, asking about discharge Olanzapine 10 mg bid. Olanzapine 10 mg daily prn. Will trial, if ineffective ?Vraylar, however it is only in PO form. Pt declines. Discussed lamictal trial, and antihypertensive eval for new regime. She refuses. Pt accepting of plan for respite, residential at this time, unclear if this will be an option. Discussed LTC referral with team. Treatment summary completed. Greater than 50% of the session was spent on counseling and/or coordination of care Reason for contiued inpatient stay Substantial Risk for: rapid decompensation
[2020-10-10] MEDS: metroNIDAZOLE 0.75 % Gel 45 GM TUBE 1 APPL TOPICAL (17:28)
[2020-10-10] MEDS: Ibuprofen 800 MG TABLET PO (17:52)
[2020-10-10 21:20] VITALS: BP 175/78; PULSE 102; TEMP 36
[2020-10-10] MEDS: LORazepam 0.5 MG TABLET PO (21:39)
[2020-10-10] MEDS: Melatonin 3 MG TABLET PO (23:54)
[2020-10-11] MEDS: LORazepam 0.5 MG TABLET PO ×2 (08:46→21:09)
[2020-10-11] MEDS: OLANZapine ODT 10 MG TAB.RAPDIS TRANSLINGU ×2 (08:46→21:09)
[2020-10-11] MEDS: Multivitamin TABLET 1 TAB PO (08:46)
--- NOTE | 2020-10-11 09:04 | HO.PSYCHPN ---
Subjective Subjective Date of Service: 10/11/20 Reason For Visit: psychosis Interim History: Pt says she's good and no complaints. Pt questioned Invega IM but accepted it. Medication Compliance: Yes Side effects from medications: No Attending Groups: Intermittent Mental Status Exam Mental Status Exam Narrative: Appearance: Appropriate attire; perhaps some roscea on face Patient Orientation: Person, Place, Time and Situation Level of Consciousness: Awake and Alert Patient Behavior: friendly, cooperative, Good Eye Contact Mood Description: good Affect Description: constricted Patient Cognition Impaired: Yes Ability to Follow Directions: Good Speech Pattern: Spontaneous Speech Memory Description: Remote Impaired, Immediate Impaired and Polish Maker Impaired Hallucinations: None Delusions: Not Present Thought Process: Goal Oriented Thought Content: positive for Goal Oriented Judgement: impaired Diagnostics Vital Signs (24Hr): Vital Signs - 24 hr 10/10/20 21:20 Temperature 96.8 F Pulse Rate 102 H Blood Pressure 175/78 H Body Mass Index 43.0 Labs Results: 09/12/20 10:07 08/25/20 20:31 Imaging Radiology Impressions: ITS Impressions Humerus X-Ray 08/26/20 00:00 IMPRESSION: Nondisplaced fracture of the humeral head tuberosity. Humerus X-Ray 09/23/20 11:48 IMPRESSION: Healing fracture greater tuberosity. Medications Medications Current Medications Generic Name Dose Route Start Last Admin Trade Name Freq PRN Reason Stop Dose Admin Al Hydroxide/Mg Hydroxide 30 ml 07/22/20 16:17 Magnesium Hydrox/Alum Hydrox 30 Ml Oral.Susp PO Q6H PRN Heartburn/Nausea Ibuprofen 800 mg 08/26/20 01:21 10/10/20 17:52 Ibuprofen 800 Mg Tablet PO 800 mg Q8H PRN Administration Pain, Moderate (Pain Scale 4-6 Lisinopril 5 mg 07/23/20 09:00 10/11/20 08:48 Lisinopril 5 Mg Tablet PO Not Given DAILY [facility] Protocol Lorazepam 0.5 mg 09/01/20 21:00 10/11/20 08:46 Lorazepam 0.5 Mg Tablet PO 0.5 mg BID [facility] Administration Magnesium Hydroxide 30 ml 07/22/20 16:17 Milk Of Magnesia 30 Ml Oral.Susp PO DAILY PRN Constipation Melatonin 3 mg 07/22/20 17:58 10/10/20 23:54 Melatonin 3 Mg Tablet PO 3 mg BEDTIME PRN Administration Insomnia Metoprolol Tartrate 25 mg 07/22/20 21:00 10/11/20 08:48 Metoprolol Tartrate 25 Mg Tablet PO Not Given BID [facility] Protocol Metronidazole 1 appl 08/14/20 09:00 10/11/20 08:48 Metronidazole 0.75 % Gel 45 Gm Tube TOPICAL Not Given BID [facility] Multivitamins/Vitamin C 1 tab 07/23/20 09:00 10/11/20 08:46 Multivitamin Tablet PO 1 tab DAILY [facility] Administration Patient Own 234 each 10/11/20 16:00 Medication Invega IM Sustenna 234 Mg Q30D [facility] Nystatin 1 appl 07/22/20 21:00 10/11/20 08:49 Nystatin Powder 15 Gm Bottle TOPICAL Not Given BID [facility] Protocol Olanzapine 10 mg 09/22/20 16:24 Olanzapine Odt 10 Mg Tab.Rapdis TRANSLINGU DAILY PRN psychosis, agitation Olanzapine 10 mg 10/02/20 21:00 10/11/20 08:46 Olanzapine Odt 10 Mg Tab.Rapdis TRANSLINGU 10 mg BID [facility] Administration Olanzapine 10 mg 10/02/20 16:11 Olanzapine 10 Mg Vial IM BID PRN if pt refuses PO per court ord Paliperidone Palmitate 234 mg 09/11/20 09:00 09/11/20 10:32 Paliperidone Palmitate 234 Mg/1.5 Ml Syringe IM Not Given Q30D [facility] Senna 17.2 mg 07/22/20 17:59 Sennosides 8.6 Mg Tablet PO DAILY PRN Constipation Allergies Allergies Allergy/AdvReac Type Severity Reaction Status Date / Time acetaminophen [From TYLENOL] Allergy Intermediate HIVES Verified 07/22/20 02:13 meperidine [From Demerol] Allergy Unknown Verified 07/22/20 02:10 Assessment & Plan Assessment & Plan (1) Fracture of greater tuberosity of left humerus: Status: Acute Code(s): S42.252A - Displaced fracture of greater tuberosity of left humerus, initial encounter for closed fracture (2) Schizoaffective disorder: Status: Acute Code(s): F25.9 - Schizoaffective disorder, unspecified Assessment and Plan: no changes to current tx plan below discussed dispo with SW who reports patient remains with impaired insight saying she continues to refuse to meet with outpatient psychiatrist upon discharge, making her a quick return to inpatient unit. It is currently questionable whether she will be successful in a skilled nursing and whether she needs long term acute care registered nurse inpatient facility. refuses BP meds PLAN Invega Sustenna 234 mg given on 10/11/20 Pt refuses labs and EKG, however most recent EKG is with a just barely prolonged Qtc; pt has no other cardiac history and Torsades is rare; here, benefit outweighs the risk as pt has stabilized considerably on this medication. Pt is unconcerned about this risk. Otherwise continue with primary tx plan: Pt refuses immobilizer sling-discontinue. Follow up [id number] fracture greater tuberosity -Discontinue 1:1. 15 minute safety checks -Decrease oxycodone to q 24 hours prn-discontinue 10/09/20. Pt will have used the medication for 4 weeks effective 09/25/20. Variable improvement with increase in lability, irritability and anger.The course is up and down. Pt exhibiting more mood sx currently however, po compliance is very erratic so difficult to treat effectively. ? ECT eval. By history, family reports atypical INFANTE takes about 3 months of treatment. Today, asking about discharge Olanzapine 10 mg bid. Olanzapine 10 mg daily prn. Will trial, if ineffective ?Vraylar, however it is only in PO form. Pt declines. Discussed lamictal trial, and antihypertensive eval for new regime. She refuses. Pt accepting of plan for respite, residential at this time, unclear if this will be an option. Discussed LTC referral with team. Treatment summary completed. Greater than 50% of the session was spent on counseling and/or coordination of care Reason for contiued inpatient stay Substantial Risk for: rapid decompensation
[2020-10-12] MEDS: OLANZapine ODT 10 MG TAB.RAPDIS TRANSLINGU ×2 (10:09→20:08)
[2020-10-12] MEDS: Ibuprofen 800 MG TABLET PO (10:09)
[2020-10-12] MEDS: LORazepam 0.5 MG TABLET PO ×2 (10:09→20:08)
[2020-10-12] MEDS: Multivitamin TABLET 1 TAB PO (10:09)
[2020-10-12 10:16] VITALS: BP 139/66; PULSE 100; RESP 16; TEMP 36.3; O2SAT 98
--- NOTE | 2020-10-12 10:18 | HO.PSYCHPN ---
Subjective Subjective Date of Service: 10/12/20 Reason For Visit: psychosis Interim History: Pt sitting in day room. She says i'm good. Medical/Surgery Registered Nurse asked what it's like to have BORA Montiel abscent to which pt said it makes it harder for her to get her coffee (reward for certain behaviors). Pt said i took the shot yesterday... She then said for a few weeks she feels her eyes are blurry and can't read. Medical/Surgery Registered Nurse gave patient an informal reading test and she could read words only once close enough. On further discussion, patient told typewriter operator automatic that she normally wears glasses and cannot read without them. [facility]. She agrees that this is the likely reason for her blurry vision and asked if LUBNA Reid could have them delivered to which typewriter operator automatic agreed to help facilitate. Medical/Surgery Registered Nurse discussed patients refusal for EKG and it's function to r/o arrhythmia; she said she understands about that and that it's to measure medication side-effect but informs i've had a lot of EKG's...there's nothing wrong with my heart. She says she does not like the sticky stuff on pads and won't get EKG. She says same thing about lab work. Medication Compliance: Yes (with antipsychotics; no BP meds) Side effects from medications: No Attending Groups: No Mental Status Exam Mental Status Exam Narrative: Appearance: Appropriate attire; perhaps some roscea and or dry skin on face Patient Orientation: Person, Place, Time and Situation Level of Consciousness: Awake and Alert Patient Behavior: friendly, cooperative, Good Eye Contact Mood Description: good Affect Description: somewhat constricted Patient Cognition Impaired: Yes Ability to Follow Directions: Good Speech Pattern: Spontaneous Speech Memory Description: Remote Impaired, Immediate Impaired and Wash Worker Impaired Hallucinations: None Delusions: Not Present Thought Process: Goal Oriented Thought Content: positive for Goal Oriented Judgement: impaired Diagnostics Vital Signs (24Hr): Vital Signs - 24 hr 10/12/20 10:16 Temperature 97.4 F Pulse Rate 100 Respiratory Rate 16 Blood Pressure 139/66 Pulse Oximetry 98 Body Mass Index 43.0 Labs Results: 09/12/20 10:07 08/25/20 20:31 Imaging Radiology Impressions: ITS Impressions Humerus X-Ray 08/26/20 00:00 IMPRESSION: Nondisplaced fracture of the humeral head tuberosity. Humerus X-Ray 09/23/20 11:48 IMPRESSION: Healing fracture greater tuberosity. Medications Medications Current Medications Generic Name Dose Route Start Last Admin Trade Name Freq PRN Reason Stop Dose Admin Al Hydroxide/Mg Hydroxide 30 ml 07/22/20 16:17 Magnesium Hydrox/Alum Hydrox 30 Ml Oral.Susp PO Q6H PRN Heartburn/Nausea Ibuprofen 800 mg 08/26/20 01:21 10/12/20 10:09 Ibuprofen 800 Mg Tablet PO 800 mg Q8H PRN Administration Pain, Moderate (Pain Scale 4-6 Lisinopril 5 mg 07/23/20 09:00 10/12/20 10:14 Lisinopril 5 Mg Tablet PO Not Given DAILY [facility] Protocol Lorazepam 0.5 mg 10/11/20 21:00 10/12/20 10:09 Lorazepam 0.5 Mg Tablet PO 0.5 mg BID [facility] Administration Magnesium Hydroxide 30 ml 07/22/20 16:17 Milk Of Magnesia 30 Ml Oral.Susp PO DAILY PRN Constipation Melatonin 3 mg 07/22/20 17:58 10/10/20 23:54 Melatonin 3 Mg Tablet PO 3 mg BEDTIME PRN Administration Insomnia Metoprolol Tartrate 25 mg 07/22/20 21:00 10/12/20 10:14 Metoprolol Tartrate 25 Mg Tablet PO Not Given BID [facility] Protocol Metronidazole 1 appl 08/14/20 09:00 10/12/20 10:15 Metronidazole 0.75 % Gel 45 Gm Tube TOPICAL Not Given BID [facility] Multivitamins/Vitamin C 1 tab 07/23/20 09:00 10/12/20 10:09 Multivitamin Tablet PO 1 tab DAILY [facility] Administration Patient Own 234 each 10/11/20 16:00 10/11/20 13:33 Medication Invega IM 234 each Sustenna 234 Mg Q30D [facility] Administration Nystatin 1 appl 07/22/20 21:00 10/12/20 10:15 Nystatin Powder 15 Gm Bottle TOPICAL Not Given BID [facility] Protocol Olanzapine 10 mg 09/22/20 16:24 Olanzapine Odt 10 Mg Tab.Rapdis TRANSLINGU DAILY PRN psychosis, agitation Olanzapine 10 mg 10/02/20 21:00 10/12/20 10:09 Olanzapine Odt 10 Mg Tab.Rapdis TRANSLINGU 10 mg BID [facility] Administration Olanzapine 10 mg 10/02/20 16:11 Olanzapine 10 Mg Vial IM BID PRN if pt refuses PO per court ord Senna 17.2 mg 07/22/20 17:59 Sennosides 8.6 Mg Tablet PO DAILY PRN Constipation Allergies Allergies Allergy/AdvReac Type Severity Reaction Status Date / Time acetaminophen [From TYLENOL] Allergy Intermediate HIVES Verified 07/22/20 02:13 meperidine [From Demerol] Allergy Unknown Verified 07/22/20 02:10 Assessment & Plan Assessment & Plan (1) Fracture of greater tuberosity of left humerus: Status: Acute Code(s): S42.252A - Displaced fracture of greater tuberosity of left humerus, initial encounter for closed fracture (2) Schizoaffective disorder: Status: Acute Code(s): F25.9 - Schizoaffective disorder, unspecified Assessment and Plan: no changes to current tx plan below discussed dispo with SW who reports patient remains with impaired insight saying she continues to refuse to meet with outpatient psychiatrist upon discharge, making her a quick return to inpatient unit. It is currently questionable whether she will be successful in a penitentiary and whether she needs [facility] inpatient facility. VIBRA Consult placed refuses BP meds PLAN Invega Sustenna 234 mg given on 10/11/20 Pt refuses labs and EKG; she understands it's function and risk of not getting but is not concerned and says there's nothing wrong with my heart. That said, most recent EKG is with a just barely prolonged Qtc; pt has no other cardiac history and Torsades is rare; here, benefit outweighs the risk as pt has stabilized considerably on this medication. VIBRA Consult placed Otherwise continue with primary tx plan: Pt refuses immobilizer sling-discontinue. Follow up [id number] fracture greater tuberosity -Discontinue 1:1. 15 minute safety checks -Decrease oxycodone to q 24 hours prn-discontinue 10/09/20. Pt will have used the medication for 4 weeks effective 09/25/20. Variable improvement with increase in lability, irritability and anger.The course is up and down. Pt exhibiting more mood sx currently however, po compliance is very erratic so difficult to treat effectively. ? ECT eval. By history, family reports atypical INFANTE takes about 3 months of treatment. Today, asking about discharge Olanzapine 10 mg bid. Olanzapine 10 mg daily prn. Will trial, if ineffective ?Vraylar, however it is only in PO form. Pt declines. Discussed lamictal trial, and antihypertensive eval for new regime. She refuses. Pt accepting of plan for respite, residential at this time, unclear if this will be an option. Discussed LTC referral with team. Treatment summary completed. Greater than 50% of the session was spent on counseling and/or coordination of care Reason for contiued inpatient stay Substantial Risk for: rapid decompensation and med/psych decompensation
[2020-10-12] MEDS: metroNIDAZOLE 0.75 % Gel 45 GM TUBE 1 APPL TOPICAL (20:08)
[2020-10-13] MEDS: OLANZapine ODT 10 MG TAB.RAPDIS TRANSLINGU ×2 (09:22→20:36)
[2020-10-13] MEDS: Multivitamin TABLET 1 TAB PO (09:22)
[2020-10-13] MEDS: LORazepam 0.5 MG TABLET PO ×2 (09:22→20:36)
--- NOTE | 2020-10-13 09:27 | P.PNPSI_ITS ---
Subjective Subjective Date of Service: 10/13/20 Reason For Visit: psychosis Interim History: pt says she's good that she slept well and has no complaints. She did ask if internal communications writer will ask SW to see if skilled nursing can send over her other slippers as current ones don't have good traction Medication Compliance: Intermittent Side effects from medications: Yes Attending Groups: No Mental Status Exam Mental Status Exam Narrative: Appearance: Appropriate attire; perhaps some roscea and or dry skin on face Patient Orientation: Person, Place, Time and Situation Level of Consciousness: Awake and Alert Patient Behavior: friendly, cooperative, Good Eye Contact Mood Description: good Affect Description: somewhat constricted Patient Cognition Impaired: Yes Ability to Follow Directions: Good Speech Pattern: Spontaneous Speech Memory Description: Remote Impaired, Immediate Impaired and Correction Impaired Hallucinations: None Delusions: Not Present Thought Process: Goal Oriented Thought Content: positive for Goal Oriented Judgement: impaired Diagnostics Vital Signs (24Hr): Vital Signs - 24 hr 10/12/20 10:16 Temperature 97.4 F Pulse Rate 100 Respiratory Rate 16 Blood Pressure 139/66 Pulse Oximetry 98 Body Mass Index 43.0 Labs Results: 09/12/20 10:07 08/25/20 20:31 Imaging Radiology Impressions: ITS Impressions Humerus X-Ray 08/26/20 00:00 IMPRESSION: Nondisplaced fracture of the humeral head tuberosity. Humerus X-Ray 09/23/20 11:48 IMPRESSION: Healing fracture greater tuberosity. Medications Medications Current Medications Generic Name Dose Route Start Last Admin Trade Name Freq PRN Reason Stop Dose Admin Al Hydroxide/Mg Hydroxide 30 ml 07/22/20 16:17 Magnesium Hydrox/Alum Hydrox 30 Ml Oral.Susp PO Q6H PRN Heartburn/Nausea Ibuprofen 800 mg 08/26/20 01:21 10/12/20 10:09 Ibuprofen 800 Mg Tablet PO 800 mg Q8H PRN Administration Pain, Moderate (Pain Scale 4-6 Lisinopril 5 mg 07/23/20 09:00 10/12/20 10:14 Lisinopril 5 Mg Tablet PO Not Given DAILY [facility] Protocol Lorazepam 0.5 mg 10/11/20 21:00 10/13/20 09:22 Lorazepam 0.5 Mg Tablet PO 0.5 mg BID [facility] Administration Magnesium Hydroxide 30 ml 07/22/20 16:17 Milk Of Magnesia 30 Ml Oral.Susp PO DAILY PRN Constipation Melatonin 3 mg 07/22/20 17:58 10/10/20 23:54 Melatonin 3 Mg Tablet PO 3 mg BEDTIME PRN Administration Insomnia Metoprolol Tartrate 25 mg 07/22/20 21:00 10/12/20 20:08 Metoprolol Tartrate 25 Mg Tablet PO Not Given BID [facility] Protocol Metronidazole 1 appl 08/14/20 09:00 10/12/20 20:08 Metronidazole 0.75 % Gel 45 Gm Tube TOPICAL 1 appl BID [facility] Administration Multivitamins/Vitamin C 1 tab 07/23/20 09:00 10/13/20 09:22 Multivitamin Tablet PO 1 tab DAILY [facility] Administration Patient Own 234 each 10/11/20 16:00 10/11/20 13:33 Medication Invega IM 234 each Sustenna 234 Mg Q30D [facility] Administration Nystatin 1 appl 07/22/20 21:00 10/12/20 20:08 Nystatin Powder 15 Gm Bottle TOPICAL Not Given BID [facility] Protocol Olanzapine 10 mg 09/22/20 16:24 Olanzapine Odt 10 Mg Tab.Rapdis TRANSLINGU DAILY PRN psychosis, agitation Olanzapine 10 mg 10/02/20 21:00 10/13/20 09:22 Olanzapine Odt 10 Mg Tab.Rapdis TRANSLINGU 10 mg BID [facility] Administration Olanzapine 10 mg 10/02/20 16:11 Olanzapine 10 Mg Vial IM BID PRN if pt refuses PO per court ord Senna 17.2 mg 07/22/20 17:59 Sennosides 8.6 Mg Tablet PO DAILY PRN Constipation Allergies Allergies Allergy/AdvReac Type Severity Reaction Status Date / Time acetaminophen [From TYLENOL] Allergy Intermediate HIVES Verified 07/22/20 02:13 meperidine [From Demerol] Allergy Unknown Verified 07/22/20 02:10 Assessment & Plan Assessment & Plan (1) Fracture of greater tuberosity of left humerus: Status: Acute Code(s): S42.252A - Displaced fracture of greater tuberosity of left humerus, initial encounter for closed fracture (2) Schizoaffective disorder: Status: Acute Code(s): F25.9 - Schizoaffective disorder, unspecified Assessment and Plan: no changes to current tx plan below discussed dispo with SW who reports patient remains with impaired insight saying she continues to refuse to meet with outpatient psychiatrist upon discharge, making her a quick return to inpatient unit. It is currently questionable whether she will be successful in a skilled nursing and whether she needs nursing home inpatient facility. VIBRA Consult placed continues to refuse BP meds PLAN Invega Sustenna 234 mg given on 10/11/20 Pt refuses labs and EKG; she understands it's function and risk of not getting but is not concerned and says there's nothing wrong with my heart. That said, most recent EKG is with a just barely prolonged Qtc; pt has no other cardiac history and Torsades is rare; here, benefit outweighs the risk as pt has stabilized considerably on this medication. VIBRA Consult placed Otherwise continue with primary tx plan: Pt refuses immobilizer sling-discontinue. Follow up [id number] fracture greater tuberosity -Discontinue 1:1. 15 minute safety checks -Decrease oxycodone to q 24 hours prn-discontinue 10/09/20. Pt will have used the medication for 4 weeks effective 09/25/20. Variable improvement with increase in lability, irritability and anger.The course is up and down. Pt exhibiting more mood sx currently however, po comp liance is very erratic so difficult to treat effectively. ? ECT eval. By history, family reports atypical INFANTE takes about 3 months of treatment. Today, asking about discharge Olanzapine 10 mg bid. Olanzapine 10 mg daily prn. Will trial, if ineffective ?Vraylar, however it is only in PO form. Pt declines. Discussed lamictal trial, and antihypertensive eval for new regime. She refuses. Pt accepting of plan for respite, residential at this time, unclear if this will be an option. Discussed LTC referral with team. Treatment summary completed. Greater than 50% of the session was spent on counseling and/or coordination of care Reason for contiued inpatient stay Substantial Risk for: rapid decompensation
[2020-10-13 18:00] VITALS: RESP 16
--- NOTE | 2020-10-14 08:04 | HO.PSYCHPN ---
Subjective Subjective Date of Service: 10/14/20 Reason For Visit: psychosis Interim History: pT initially refused to speak with this development writer but later in am more easily engaged; reports mood is good. Reports she slept well; she states she accepted the invega INFANTE and tolerating well. denies SI or HI, Review of Systems Review of Systems Yes all other systems are reviewed and are negative Musculoskeletal: Reports myalgias, Reports arthralgias, Reports limited range of motion, Reports muscle weakness, Reports radiating pain into limb and Reports other (intermittent arm/shoulder pain) Reports behavioral changes, Reports confusion and Reports memory loss Psychiatric: Reports abnormal sleep pattern, Reports anxiety, Reports behavioral changes, Reports change in appetite, Reports confusion, Reports depression, Reports difficulty concentrating, Reports auditory hallucinations, Reports hopelessness, Reports irritability, Reports anhedonia, Reports memory loss, Reports mood swings, Reports paranoia, Reports visual hallucinations, Reports hallucinations, Reports homicidal ideation and Reports suicidal ideation (denies) Mental Status Exam Mental Status Exam Narrative: Appearance: Appropriate attire; perhaps some roscea and or dry skin on face Patient Orientation: Person, Place, Time and Situation Level of Consciousness: Awake and Alert Patient Behavior: friendly, cooperative, Good Eye Contact Mood Description: good Affect Description: somewhat constricted Patient Cognition Impaired: Yes Ability to Follow Directions: Good Speech Pattern: Spontaneous Speech Memory Description: Remote Impaired, Immediate Impaired and Senior Care Impaired Hallucinations: None Delusions: Not Present Thought Process: Goal Oriented Thought Content: positive for Goal Oriented Judgement: impaired Diagnostics Vital Signs (24Hr): Vital Signs - 24 hr 10/13/20 18:00 Respiratory Rate 16 Body Mass Index 43.0 Labs Results: 09/12/20 10:07 08/25/20 20:31 Imaging Radiology Impressions: ITS Impressions Humerus X-Ray 08/26/20 00:00 IMPRESSION: Nondisplaced fracture of the humeral head tuberosity. Humerus X-Ray 09/23/20 11:48 IMPRESSION: Healing fracture greater tuberosity. Medications Medications Current Medications Generic Name Dose Route Start Last Admin Trade Name Freq PRN Reason Stop Dose Admin Al Hydroxide/Mg Hydroxide 30 ml 07/22/20 16:17 Magnesium Hydrox/Alum Hydrox 30 Ml Oral.Susp PO Q6H PRN Heartburn/Nausea Ibuprofen 800 mg 08/26/20 01:21 10/12/20 10:09 Ibuprofen 800 Mg Tablet PO 800 mg Q8H PRN Administration Pain, Moderate (Pain Scale 4-6 Lisinopril 5 mg 07/23/20 09:00 10/13/20 13:12 Lisinopril 5 Mg Tablet PO Not Given DAILY [facility] Protocol Lorazepam 0.5 mg 10/11/20 21:00 10/13/20 20:36 Lorazepam 0.5 Mg Tablet PO 0.5 mg BID [facility] Administration Magnesium Hydroxide 30 ml 07/22/20 16:17 Milk Of Magnesia 30 Ml Oral.Susp PO DAILY PRN Constipation Melatonin 3 mg 07/22/20 17:58 10/10/20 23:54 Melatonin 3 Mg Tablet PO 3 mg BEDTIME PRN Administration Insomnia Metoprolol Tartrate 25 mg 07/22/20 21:00 10/13/20 21:00 Metoprolol Tartrate 25 Mg Tablet PO Not Given BID [facility] Protocol Metronidazole 1 appl 08/14/20 09:00 10/13/20 21:01 Metronidazole 0.75 % Gel 45 Gm Tube TOPICAL Not Given BID [facility] Multivitamins/Vitamin C 1 tab 07/23/20 09:00 10/13/20 09:22 Multivitamin Tablet PO 1 tab DAILY [facility] Administration Patient Own 234 each 10/11/20 16:00 10/11/20 13:33 Medication Invega IM 234 each Sustenna 234 Mg Q30D [facility] Administration Nystatin 1 appl 07/22/20 21:00 10/13/20 21:03 Nystatin Powder 15 Gm Bottle TOPICAL Not Given BID [facility] Protocol Olanzapine 10 mg 09/22/20 16:24 Olanzapine Odt 10 Mg Tab.Rapdis TRANSLINGU DAILY PRN psychosis, agitation Olanzapine 10 mg 10/02/20 21:00 10/13/20 20:36 Olanzapine Odt 10 Mg Tab.Rapdis TRANSLINGU 10 mg BID [facility] Administration Olanzapine 10 mg 10/02/20 16:11 Olanzapine 10 Mg Vial IM BID PRN if pt refuses PO per court ord Senna 17.2 mg 07/22/20 17:59 Sennosides 8.6 Mg Tablet PO DAILY PRN Constipation Allergies Allergies Allergy/AdvReac Type Severity Reaction Status Date / Time acetaminophen [From TYLENOL] Allergy Intermediate HIVES Verified 07/22/20 02:13 meperidine [From Demerol] Allergy Unknown Verified 07/22/20 02:10 Assessment & Plan Assessment & Plan (1) Fracture of greater tuberosity of left humerus: Status: Acute Code(s): S42.252A - Displaced fracture of greater tuberosity of left humerus, initial encounter for closed fracture (2) Schizoaffective disorder: Status: Acute Code(s): F25.9 - Schizoaffective disorder, unspecified Assessment and Plan: no changes to current tx plan below discussed dispo with SW who reports patient remains with impaired insight saying she continues to refuse to meet with outpatient psychiatrist upon discharge, making her a quick return to inpatient unit. It is currently questionable whether she will be successful in a penitentiary and whether she needs rat exterminator inpatient facility. VIBRA Consult placed continues to refuse BP meds PLAN Invega Sustenna 234 mg given on 10/11/20 Pt refuses labs and EKG; she understands it's function and risk of not getting but is not concerned and says there's nothing wrong with my heart. That said, most recent EKG is with a just barely prolonged Qtc; pt has no other cardiac history and Torsades is rare; here, benefit outweighs the risk as pt has stabilized considerably on this medication. VIBRA Consult placed Otherwise continue with primary tx plan: Pt refuses immobilizer sling-discontinue. Follow up [id number] fracture greater tuberosity -Discontinue 1:1. 15 minute safety checks -Decrease oxycodone to q 24 hours prn-discontinue 10/09/20. Pt will have used the medication for 4 weeks effective 09/25/20. Variable improvement with increase in lability, irritability and anger.The course is up and down. Pt exhibiting more mood sx currently however, po compliance is very erratic so difficult to treat effectively. ? ECT eval. By history, family reports atypical INFANTE takes about 3 months of treatment. Today, asking about discharge Olanzapine 10 mg bid. Olanzapine 10 mg daily prn. Will trial, if ineffective ?Vraylar, however it is only in PO form. Pt declines. Discussed lamictal trial, and antihypertensive eval for new regime. She refuses. Pt accepting of plan for respite, residential at this time, unclear if this will be an option. Discussed LTC referral with team. Treatment summary completed. Greater than 50% of the session was spent on counseling and/or coordination of care Reason for contiued inpatient stay Substantial Risk for: harm to self, inability to function and med/psych decompensation
[2020-10-14] MEDS: LORazepam 0.5 MG TABLET PO ×2 (09:15→21:19)
[2020-10-14] MEDS: OLANZapine ODT 10 MG TAB.RAPDIS TRANSLINGU ×2 (09:15→21:19)
[2020-10-14] MEDS: Ibuprofen 800 MG TABLET PO (14:32)
[2020-10-14 17:10] VITALS: BP 142/91; PULSE 118; RESP 18; TEMP 36.2; O2SAT 96
[2020-10-15] MEDS: LORazepam 0.5 MG TABLET PO ×2 (09:03→20:14)
[2020-10-15] MEDS: OLANZapine ODT 10 MG TAB.RAPDIS TRANSLINGU ×2 (09:03→20:14)
[2020-10-15] MEDS: Ibuprofen 800 MG TABLET PO (09:08)
[2020-10-15] MEDS: Multivitamin TABLET 1 TAB PO (09:08)
[2020-10-15] MEDS: metroNIDAZOLE 0.75 % Gel 45 GM TUBE 1 APPL TOPICAL (10:56)
--- NOTE | 2020-10-15 18:03 | HO.PSYCHPN ---
Subjective Subjective Date of Service: 10/15/20 Reason For Visit: psychosis Interim History: pt more easily engaged; rless irritable; reports mood is good. Reports she slept well; she states she accepted the invega INFANTE and tolerating well. denies SI or HI, Review of Systems Review of Systems Yes all other systems are reviewed and are negative, Unobtainable due to mental status and Other Musculoskeletal: Reports myalgias, Reports arthralgias, Reports limited range of motion, Reports muscle weakness, Reports radiating pain into limb and Reports other (intermittent arm/shoulder pain) Reports behavioral changes, Reports confusion and Reports memory loss Psychiatric: Reports abnormal sleep pattern, Reports anxiety, Reports behavioral changes, Reports change in appetite, Reports confusion, Reports depression, Reports difficulty concentrating, Reports auditory hallucinations, Reports hopelessness, Reports irritability, Reports anhedonia, Reports memory loss, Reports mood swings, Reports paranoia, Reports visual hallucinations, Reports hallucinations, Reports homicidal ideation and Reports suicidal ideation (denies) Mental Status Exam Mental Status Exam Narrative: Appearance: Appropriate attire; perhaps some roscea and or dry skin on face Patient Orientation: Person, Place, Time and Situation Level of Consciousness: Awake and Alert Patient Behavior: friendly, cooperative, Good Eye Contact Mood Description: good Affect Description: somewhat constricted Patient Cognition Impaired: Yes Ability to Follow Directions: Good Speech Pattern: Spontaneous Speech Memory Description: Remote Impaired, Immediate Impaired and Janitorial Assistant Impaired Hallucinations: None Delusions: Not Present Thought Process: Goal Oriented Thought Content: positive for Goal Oriented Judgement: impaired Patient Appearance: Disheveled Patient Orientation: Person and Place Level of Consciousness: Awake and Alert Patient Behavior: Guarded, Talkative, Cooperative, Fearful, Resistive to Care, Distractible and Good Eye Contact Mood Description: Constricted Affect Description: Constricted Patient Cognition Impaired: Yes Ability to Follow Directions: Good Speech Pattern: Spontaneous Speech and Soft-Spoken Memory Description: Remote Impaired, Immediate Impaired, Janitorial Assistant Impaired and Episodic Impaired Diagnostics Vital Signs (24Hr): Body Mass Index 43.0 Labs Results: 09/12/20 10:07 08/25/20 20:31 Imaging Radiology Impressions: ITS Impressions Humerus X-Ray 08/26/20 00:00 IMPRESSION: Nondisplaced fracture of the humeral head tuberosity. Humerus X-Ray 09/23/20 11:48 IMPRESSION: Healing fracture greater tuberosity. Medications Medications Current Medications Generic Name Dose Route Start Last Admin Trade Name Freq PRN Reason Stop Dose Admin Al Hydroxide/Mg Hydroxide 30 ml 07/22/20 16:17 Magnesium Hydrox/Alum Hydrox 30 Ml Oral.Susp PO Q6H PRN Heartburn/Nausea Ibuprofen 800 mg 08/26/20 01:21 10/15/20 09:08 Ibuprofen 800 Mg Tablet PO 800 mg Q8H PRN Administration Pain, Moderate (Pain Scale 4-6 Lisinopril 5 mg 07/23/20 09:00 10/15/20 09:13 Lisinopril 5 Mg Tablet PO Not Given DAILY [facility] Protocol Lorazepam 0.5 mg 10/11/20 21:00 10/15/20 09:03 Lorazepam 0.5 Mg Tablet PO 0.5 mg BID [facility] Administration Magnesium Hydroxide 30 ml 07/22/20 16:17 Milk Of Magnesia 30 Ml Oral.Susp PO DAILY PRN Constipation Melatonin 3 mg 07/22/20 17:58 10/10/20 23:54 Melatonin 3 Mg Tablet PO 3 mg BEDTIME PRN Administration Insomnia Metoprolol Tartrate 25 mg 07/22/20 21:00 10/15/20 09:13 Metoprolol Tartrate 25 Mg Tablet PO Not Given BID [facility] Protocol Metronidazole 1 appl 08/14/20 09:00 10/15/20 10:56 Metronidazole 0.75 % Gel 45 Gm Tube TOPICAL 1 appl BID [facility] Administration Multivitamins/Vitamin C 1 tab 07/23/20 09:00 10/15/20 09:08 Multivitamin Tablet PO 1 tab DAILY [facility] Administration Patient Own 234 each 10/11/20 16:00 10/11/20 13:33 Medication Invega IM 234 each Sustenna 234 Mg Q30D [facility] Administration Nystatin 1 appl 07/22/20 21:00 10/15/20 10:55 Nystatin Powder 15 Gm Bottle TOPICAL Not Given BID [facility] Protocol Olanzapine 10 mg 09/22/20 16:24 Olanzapine Odt 10 Mg Tab.Rapdis TRANSLINGU DAILY PRN psychosis, agitation Olanzapine 10 mg 10/02/20 21:00 10/15/20 09:03 Olanzapine Odt 10 Mg Tab.Rapdis TRANSLINGU 10 mg BID [facility] Administration Olanzapine 10 mg 10/02/20 16:11 Olanzapine 10 Mg Vial IM BID PRN if pt refuses PO per court ord Senna 17.2 mg 07/22/20 17:59 Sennosides 8.6 Mg Tablet PO DAILY PRN Constipation Allergies Allergies Allergy/AdvReac Type Severity Reaction Status Date / Time acetaminophen [From TYLENOL] Allergy Intermediate HIVES Verified 07/22/20 02:13 meperidine [From Demerol] Allergy Unknown Verified 07/22/20 02:10 Assessment & Plan Assessment & Plan (1) Fracture of greater tuberosity of left humerus: Status: Acute Code(s): S42.252A - Displaced fracture of greater tuberosity of left humerus, initial encounter for closed fracture (2) Schizoaffective disorder: Status: Acute Code(s): F25.9 - Schizoaffective disorder, unspecified Assessment and Plan: 10/15/20 no changes to current tx plan below discussed dispo with LUBNA who reports patient remains with impaired insight saying she continues to refuse to meet with outpatient psychiatrist upon discharge, making her a quick return to inpatient unit. It is currently questionable whether she will be successful in a half-way and whether she needs correction inpatient facility. VIBRA Consult placed continues to refuse BP meds PLAN Invega Sustenna 234 mg given on 10/11/20 Pt refuses labs and EKG; she understands it's function and risk of not getting but is not concerned and says there's nothing wrong with my heart. That said, most recent EKG is with a just barely prolonged Qtc; pt has no other cardiac history and Torsades is rare; here, benefit outweighs the risk as pt has stabilized considerably on this medication. VIBRA Consult placed Otherwise continue with primary tx plan: Pt refuses immobilizer sling-discontinue. Follow up [id number] fracture greater tuberosity -Discontinue 1:1. 15 minute safety checks -Decrease oxycodone to q 24 hours prn-discontinue 10/09/20. Pt will have used the medication for 4 weeks effective 09/25/20. Variable improvement with increase in lability, irritability and anger.The course is up and down. Pt exhibiting more mood sx currently however, po compliance is very erratic so difficult to treat effectively. ? ECT eval. By history, family reports atypical INFANTE takes about 3 months of treatment. Today, asking about discharge Olanzapine 10 mg bid. Olanzapine 10 mg daily prn. Will trial, if ineffective ?Vraylar, however it is only in PO form. Pt declines. Discussed lamictal trial, and antihypertensive eval for new regime. She refuses. Pt accepting of plan for respite, residential at this time, unclear if this will be an option. Discussed LTC referral with team. Treatment summary completed. Greater than 50% of the session was spent on counseling and/or coordination of care Reason for contiued inpatient stay Substantial Risk for: harm to self, inability to function, rapid decompensation and med/psych decompensation
[2020-10-16 06:50] VITALS: BP 133/86; PULSE 108; RESP 18; TEMP 36.1; O2SAT 95
[2020-10-16] MEDS: LORazepam 0.5 MG TABLET PO ×2 (08:06→19:55)
[2020-10-16] MEDS: Multivitamin TABLET 1 TAB PO (08:06)
[2020-10-16] MEDS: OLANZapine ODT 10 MG TAB.RAPDIS TRANSLINGU ×2 (08:07→19:55)
--- NOTE | 2020-10-16 09:35 | HO.PSYCHPN ---
Subjective Subjective Date of Service: 10/16/20 Reason For Visit: psychosis Subjective Notes: Chandler Order Interim History: today pt says she's good. but then she said the medication is making her face break out. Military Pay Clerk inquired further and pt clarified and says she has exzema but that the medication is making it worse. She then said she does not need the medication and does not want to take it anymore. Military Pay Clerk said that to his knowledge, a court and curb and gutter laborer ordered a chandler...Pt said incredulously, a curb and gutter laborer ordered drugs? I don't believe it... Pt repeated herself and ensuring discussion could change her mind. Pt insisted these were drugs and not medications. She said she is not on a Chandler, there was no court hearing and if senior technical writer were to show her the court documents, she would know the were fake. Patient says i dont have a psychiatric illness. of note, Eczema and rosacea are not listed side-effects of Paliperidone (according to [employer]) Zyprexa has a 2% incidence of acne and dry skin. Medication Compliance: Yes Mental Status Exam Mental Status Exam Narrative: Appearance: Appropriate attire; perhaps some roscea and or dry skin on face Patient Orientation: Person, Place Level of Consciousness: Awake and Alert Patient Behavior: calm Mood Description: good Affect Description: somewhat constricted Patient Cognition Impaired: Yes Ability to Follow Directions: fair Speech Pattern: Spontaneous Speech Memory Description: Remote Impaired, Immediate Impaired and Import/Export Specialist Impaired Hallucinations: None Delusions: None expressed Thought Process: Goal Oriented Thought Content: does not want medications Judgment/insight: impaired Diagnostics Vital Signs (24Hr): Vital Signs - 24 hr 10/16/20 06:50 Temperature 96.9 F Pulse Rate 108 H Respiratory Rate 18 Blood Pressure 133/86 Pulse Oximetry 95 Body Mass Index 43.0 Labs Results: 09/12/20 10:07 08/25/20 20:31 Imaging Radiology Impressions: ITS Impressions Humerus X-Ray 08/26/20 00:00 IMPRESSION: Nondisplaced fracture of the humeral head tuberosity. Humerus X-Ray 09/23/20 11:48 IMPRESSION: Healing fracture greater tuberosity. Medications Medications Current Medications Generic Name Dose Route Start Last Admin Trade Name Freq PRN Reason Stop Dose Admin Al Hydroxide/Mg Hydroxide 30 ml 07/22/20 16:17 Magnesium Hydrox/Alum Hydrox 30 Ml Oral.Susp PO Q6H PRN Heartburn/Nausea Ibuprofen 800 mg 08/26/20 01:21 10/15/20 09:08 Ibuprofen 800 Mg Tablet PO 800 mg Q8H PRN Administration Pain, Moderate (Pain Scale 4-6 Lisinopril 5 mg 07/23/20 09:00 10/16/20 08:13 Lisinopril 5 Mg Tablet PO Not Given DAILY [facility] Protocol Lorazepam 0.5 mg 10/11/20 21:00 10/16/20 08:06 Lorazepam 0.5 Mg Tablet PO 0.5 mg BID [facility] Administration Magnesium Hydroxide 30 ml 07/22/20 16:17 Milk Of Magnesia 30 Ml Oral.Susp PO DAILY PRN Constipation Melatonin 3 mg 07/22/20 17:58 10/10/20 23:54 Melatonin 3 Mg Tablet PO 3 mg BEDTIME PRN Administration Insomnia Metoprolol Tartrate 25 mg 07/22/20 21:00 10/16/20 08:13 Metoprolol Tartrate 25 Mg Tablet PO Not Given BID [facility] Protocol Metronidazole 1 appl 08/14/20 09:00 10/16/20 08:13 Metronidazole 0.75 % Gel 45 Gm Tube TOPICAL Not Given BID [facility] Multivitamins/Vitamin C 1 tab 07/23/20 09:00 10/16/20 08:06 Multivitamin Tablet PO 1 tab DAILY [facility] Administration Patient Own 234 each 10/11/20 16:00 10/11/20 13:33 Medication Invega IM 234 each Sustenna 234 Mg Q30D [facility] Administration Nystatin 1 appl 07/22/20 21:00 10/16/20 08:21 Nystatin Powder 15 Gm Bottle TOPICAL Not Given BID [facility] Protocol Olanzapine 10 mg 09/22/20 16:24 Olanzapine Odt 10 Mg Tab.Rapdis TRANSLINGU DAILY PRN psychosis, agitation Olanzapine 10 mg 10/02/20 21:00 10/16/20 08:07 Olanzapine Odt 10 Mg Tab.Rapdis TRANSLINGU 10 mg BID [facility] Administration Olanzapine 10 mg 10/02/20 16:11 Olanzapine 10 Mg Vial IM BID PRN if pt refuses PO per court ord Senna 17.2 mg 07/22/20 17:59 Sennosides 8.6 Mg Tablet PO DAILY PRN Constipation Allergies Allergies Allergy/AdvReac Type Severity Reaction Status Date / Time acetaminophen [From TYLENOL] Allergy Intermediate HIVES Verified 07/22/20 02:13 meperidine [From Demerol] Allergy Unknown Verified 07/22/20 02:10 Assessment & Plan Assessment & Plan (1) Fracture of greater tuberosity of left humerus: Status: Acute Code(s): S42.252A - Displaced fracture of greater tuberosity of left humerus, initial encounter for closed fracture (2) Schizoaffective disorder: Status: Acute Code(s): F25.9 - Schizoaffective disorder, unspecified Assessment and Plan: no changes to current tx plan below Pt has poor insight; denies psychiatric illness and denies Chandler order exists discussed dispo with SW who reports patient remains with impaired insight saying she continues to refuse to meet with outpatient psychiatrist upon discharge, making her a quick return to inpatient unit. It is currently questionable whether she will be successful in a [place] [facility] facility and whether she needs rn long term care inpatient facility. VIBRA Consult placed pt continues to refuse BP meds PLAN Invega Sustenna 234 mg given on 10/11/20 Pt refuses labs and EKG; she understands it's function and risk of not getting but is not concerned and says there's nothing wrong with my heart. That said, most recent EKG is with a just barely prolonged Qtc; pt has no other cardiac history and Torsades is rare; here, benefit outweighs the risk as pt has stabilized considerably on this medication. VIBRA Consult placed Otherwise continue with primary tx plan: Pt refuses immobilizer sling-discontinue. Follow up [id number] fracture greater tuberosity -Discontinue 1:1. 15 minute safety checks -Decrease oxycodone to q 24 hours prn-discontinue 10/09/20. Pt will have used the medication for 4 weeks effective 09/25/20. Variable improvement with increase in lability, irritability and anger.The course is up and down. Pt exhibiting more mood sx currently however, po compliance is very erratic so difficult to treat effectively. ? ECT eval. By history, family reports atypical INFANTE takes about 3 months of treatment. Today, asking about discharge Olanzapine 10 mg bid. Olanzapine 10 mg daily prn. Will trial, if ineffective ?Vraylar, however it is only in PO form. Pt declines. Discussed lamictal trial, and antihypertensive eval for new regime. She refuses. Pt accepting of plan for respite, residential at this time, unclear if this will be an option. Discussed LTC referral with team. Treatment summary completed. Greater than 50% of the session was spent on counseling and/or coordination of care Reason for contiued inpatient stay Substantial Risk for: rapid decompensation and med/psych decompensation
[2020-10-16] MEDS: Ibuprofen 800 MG TABLET PO (17:20)
[2020-10-16] MEDS: metroNIDAZOLE 0.75 % Gel 45 GM TUBE 1 APPL TOPICAL (20:24)
[2020-10-17] MEDS: Multivitamin TABLET 1 TAB PO (08:05)
[2020-10-17] MEDS: metroNIDAZOLE 0.75 % Gel 45 GM TUBE 1 APPL TOPICAL (08:06)
[2020-10-17] MEDS: OLANZapine ODT 10 MG TAB.RAPDIS TRANSLINGU ×2 (08:06→20:41)
[2020-10-17] MEDS: Ibuprofen 800 MG TABLET PO (13:12)
--- NOTE | 2020-10-17 14:29 | HO.PSYCHPN ---
Subjective Subjective Date of Service: 10/17/20 Reason For Visit: psychosis Interim History: pt lying on bed, back to ad copy writer; she does not turn or look at ad copy writer. Pt says she's OK. She denies SI/AVH. ad copy writer makes other inquires, but pt does not respond. Until ad copy writer says will let her rest and good bye, to which she says good bye back. Medication Compliance: Intermittent (not bp meds) Attending Groups: No Mental Status Exam Mental Status Exam Narrative: Appearance: lying on bed, back to ad copy writer; Appropriate attire; some roscea and or dry skin on face Patient Orientation: Person, Place Level of Consciousness: Awake and Alert Patient Behavior: calm Mood Description: OK Affect Description: constricted Patient Cognition Impaired: Yes Ability to Follow Directions: fair Speech Pattern: Spontaneous Speech Memory Description: Remote Impaired, Immediate Impaired and Nursing Home Impaired Hallucinations: None Delusions: None expressed Thought Process: Goal Oriented Thought Content: does not want medications Judgment/insight: impaired Diagnostics Vital Signs (24Hr): Body Mass Index 43.0 Labs Results: 09/12/20 10:07 08/25/20 20:31 Imaging Radiology Impressions: ITS Impressions Humerus X-Ray 08/26/20 00:00 IMPRESSION: Nondisplaced fracture of the humeral head tuberosity. Humerus X-Ray 09/23/20 11:48 IMPRESSION: Healing fracture greater tuberosity. Medications Medications Current Medications Generic Name Dose Route Start Last Admin Trade Name Freq PRN Reason Stop Dose Admin Al Hydroxide/Mg Hydroxide 30 ml 07/22/20 16:17 Magnesium Hydrox/Alum Hydrox 30 Ml Oral.Susp PO Q6H PRN Heartburn/Nausea Ibuprofen 800 mg 08/26/20 01:21 10/17/20 13:12 Ibuprofen 800 Mg Tablet PO 800 mg Q8H PRN Administration Pain, Moderate (Pain Scale 4-6 Lisinopril 5 mg 07/23/20 09:00 10/17/20 08:06 Lisinopril 5 Mg Tablet PO Not Given DAILY [facility] Protocol Magnesium Hydroxide 30 ml 07/22/20 16:17 Milk Of Magnesia 30 Ml Oral.Susp PO DAILY PRN Constipation Melatonin 3 mg 07/22/20 17:58 10/10/20 23:54 Melatonin 3 Mg Tablet PO 3 mg BEDTIME PRN Administration Insomnia Metoprolol Tartrate 25 mg 07/22/20 21:00 10/17/20 08:06 Metoprolol Tartrate 25 Mg Tablet PO Not Given BID [facility] Protocol Metronidazole 1 appl 08/14/20 09:00 10/17/20 08:06 Metronidazole 0.75 % Gel 45 Gm Tube TOPICAL 1 appl BID [facility] Administration Multivitamins/Vitamin C 1 tab 07/23/20 09:00 10/17/20 08:05 Multivitamin Tablet PO 1 tab DAILY [facility] Administration Patient Own 234 each 10/11/20 16:00 10/11/20 13:33 Medication Invega IM 234 each Sustenna 234 Mg Q30D [facility] Administration Nystatin 1 appl 07/22/20 21:00 10/17/20 08:06 Nystatin Powder 15 Gm Bottle TOPICAL Not Given BID [facility] Protocol Olanzapine 10 mg 09/22/20 16:24 Olanzapine Odt 10 Mg Tab.Rapdis TRANSLINGU DAILY PRN psychosis, agitation Olanzapine 10 mg 10/02/20 21:00 10/17/20 08:06 Olanzapine Odt 10 Mg Tab.Rapdis TRANSLINGU 10 mg BID [facility] Administration Olanzapine 10 mg 10/02/20 16:11 Olanzapine 10 Mg Vial IM BID PRN if pt refuses PO per court ord Senna 17.2 mg 07/22/20 17:59 Sennosides 8.6 Mg Tablet PO DAILY PRN Constipation Allergies Allergies Allergy/AdvReac Type Severity Reaction Status Date / Time acetaminophen [From TYLENOL] Allergy Intermediate HIVES Verified 07/22/20 02:13 meperidine [From Demerol] Allergy Unknown Verified 07/22/20 02:10 Assessment & Plan Assessment & Plan (1) Fracture of greater tuberosity of left humerus: Status: Acute Code(s): S42.252A - Displaced fracture of greater tuberosity of left humerus, initial encounter for closed fracture (2) Schizoaffective disorder: Status: Acute Code(s): F25.9 - Schizoaffective disorder, unspecified Assessment and Plan: no changes to current tx plan below Pt has poor insight; intermittently denies psychiatric illness and denies Ochoa order exists -discussed dispo with SW who reports patient remains with impaired insight saying she continues to refuse to meet with outpatient psychiatrist upon discharge, making her a quick return to inpatient unit. It is currently questionable whether she will be successful in a snf and whether she needs dedicated intermodal truck driver inpatient facility. -VIBRA Consult placed -pt continues to refuse BP meds, though BP WNL PLAN Invega Sustenna 234 mg given on 10/11/20 Pt refuses labs and EKG; she understands it's function and risk of not getting but is not concerned and says there's nothing wrong with my heart. That said, most recent EKG is with a just barely prolonged Qtc; pt has no other cardiac history and Torsades is rare; here, benefit outweighs the risk as pt has stabilized considerably on this medication. VIBRA Consult placed Otherwise continue with primary tx plan: Pt refuses immobilizer sling-discontinue. Follow up [id number] fracture greater tuberosity -Discontinue 1:1. 15 minute safety checks -Decrease oxycodone to q 24 hours prn-discontinue 10/09/20. Pt will have used the medication for 4 weeks effective 09/25/20. Variable improvement with increase in lability, irritability and anger.The course is up and down. Pt exhibiting more mood sx currently however, po compliance is very erratic so difficult to treat effectively. ? ECT eval. By history, family reports atypical INFANTE takes about 3 months of treatment. Today, asking about discharge Olanzapine 10 mg bid. Olanzapine 10 mg daily prn. Will trial, if ineffective ?Vraylar, however it is only in PO form. Pt declines. Discussed lamictal trial, and antihypertensive eval for new regime. She refuses. Pt accepting of plan for respite, residential at this time, unclear if this will be an option. Discussed LTC referral with team. Treatment summary completed. Greater than 50% of the session was spent on counseling and/or coordination of care Reason for contiued inpatient stay Substantial Risk for: rapid decompensation and med/psych decompensation
[2020-10-17 16:30] VITALS: BP 115/88; PULSE 99; TEMP 36.6
[2020-10-17] MEDS: LORazepam 0.5 MG TABLET PO (20:41)
[2020-10-18] MEDS: Ibuprofen 800 MG TABLET PO ×2 (09:04→16:21)
[2020-10-18] MEDS: LORazepam 0.5 MG TABLET PO ×2 (09:04→20:44)
[2020-10-18] MEDS: OLANZapine ODT 10 MG TAB.RAPDIS TRANSLINGU ×2 (09:05→20:44)
[2020-10-18] MEDS: Multivitamin TABLET 1 TAB PO (09:05)
--- NOTE | 2020-10-18 09:36 | P.PNPSI_ITS ---
Subjective Subjective Date of Service: 10/18/20 Reason For Visit: psychosis Interim History: Patient says she is in ?good ? mood today. Pharmacy Technician Inpatient asked about yesterday and she said she was just tired and laughed about it. She tells sba underwriter that she would like to go to a care home or otherwise respite and hopes that she can. Pharmacy Technician Inpatient asked about her past refusal to see psychiatrist as an ou tpatient but she says that she will. She does not acknowledge her recent refusal. No complaints Medication Compliance: Intermittent (Refuses the meds) Side effects from medications: No Mental Status Exam Mental Status Exam Narrative: Appearance: Appropriate attire; roscea clearing; some dry skin on face Patient Orientation: Person, Place Level of Consciousness: Awake and Alert Patient Behavior: calm Mood Description: good Affect Description: friendly Patient Cognition Impaired: Yes Ability to Follow Directions: fair Speech Pattern: Spontaneous Speech Memory Description: Remote Impaired, Immediate Impaired and Aquatic Scientist Impaired Hallucinations: None Delusions: None expressed Thought Process: Goal Oriented Thought Content: does not want medications Judgment/insight: impaired Diagnostics Vital Signs (24Hr): Vital Signs - 24 hr 10/17/20 16:30 Temperature 97.8 F Pulse Rate 99 Blood Pressure 115/88 Body Mass Index 43.0 Labs Results: 09/12/20 10:07 08/25/20 20:31 Imaging Radiology Impressions: ITS Impressions Humerus X-Ray 08/26/20 00:00 IMPRESSION: Nondisplaced fracture of the humeral head tuberosity. Humerus X-Ray 09/23/20 11:48 IMPRESSION: Healing fracture greater tuberosity. Medications Medications Current Medications Generic Name Dose Route Start Last Admin Trade Name Freq PRN Reason Stop Dose Admin Al Hydroxide/Mg Hydroxide 30 ml 07/22/20 16:17 Magnesium Hydrox/Alum Hydrox 30 Ml Oral.Susp PO Q6H PRN Heartburn/Nausea Ibuprofen 800 mg 08/26/20 01:21 10/18/20 09:04 Ibuprofen 800 Mg Tablet PO 800 mg Q8H PRN Administration Pain, Moderate (Pain Scale 4-6 Lisinopril 5 mg 07/23/20 09:00 10/18/20 09:02 Lisinopril 5 Mg Tablet PO Not Given DAILY [facility] Protocol Lorazepam 0.5 mg 10/17/20 21:00 10/18/20 09:04 Lorazepam 0.5 Mg Tablet PO 0.5 mg BID [facility] Administration Magnesium Hydroxide 30 ml 07/22/20 16:17 Milk Of Magnesia 30 Ml Oral.Susp PO DAILY PRN Constipation Melatonin 3 mg 07/22/20 17:58 10/10/20 23:54 Melatonin 3 Mg Tablet PO 3 mg BEDTIME PRN Administration Insomnia Metoprolol Tartrate 25 mg 07/22/20 21:00 10/18/20 09:03 Metoprolol Tartrate 25 Mg Tablet PO Not Given BID [facility] Protocol Metronidazole 1 appl 08/14/20 09:00 10/18/20 09:03 Metronidazole 0.75 % Gel 45 Gm Tube TOPICAL Not Given BID [facility] Multivitamins/Vitamin C 1 tab 07/23/20 09:00 10/18/20 09:05 Multivitamin Tablet PO 1 tab DAILY [facility] Administration Patient Own 234 each 10/11/20 16:00 10/11/20 13:33 Medication Invega IM 234 each Sustenna 234 Mg Q30D [facility] Administration Nystatin 1 appl 07/22/20 21:00 10/18/20 09:03 Nystatin Powder 15 Gm Bottle TOPICAL Not Given BID [facility] Protocol Olanzapine 10 mg 09/22/20 16:24 Olanzapine Odt 10 Mg Tab.Rapdis TRANSLINGU DAILY PRN psychosis, agitation Olanzapine 10 mg 10/02/20 21:00 10/18/20 09:05 Olanzapine Odt 10 Mg Tab.Rapdis TRANSLINGU 10 mg BID [facility] Administration Olanzapine 10 mg 10/02/20 16:11 Olanzapine 10 Mg Vial IM BID PRN if pt refuses PO per court ord Senna 17.2 mg 07/22/20 17:59 Sennosides 8.6 Mg Tablet PO DAILY PRN Constipation Allergies Allergies Allergy/AdvReac Type Severity Reaction Status Date / Time acetaminophen [From TYLENOL] Allergy Intermediate HIVES Verified 07/22/20 02:13 meperidine [From Demerol] Allergy Unknown Verified 07/22/20 02:10 Assessment & Plan Assessment & Plan (1) Fracture of greater tuberosity of left humerus: Status: Acute Code(s): S42.252A - Displaced fracture of greater tuberosity of left humerus, initial encounter for closed fracture (2) Schizoaffective disorder: Status: Acute Code(s): F25.9 - Schizoaffective disorder, unspecified Assessment and Plan: no changes to current tx plan below Pt has poor insight; intermittently denies psychiatric illness and that court ordered treatment plan/Ochoa order exists. -discussed dispo with SW who reports patient remains with impaired insight saying she continues to refuse to meet with outpatient psychiatrist upon discharge, making her a quick return to inpatient unit. It is currently questionable whether she will be successful in a care home and whether she needs ferry terminal agent inpatient facility. -VIBRA Consult placed -pt continues to refuse BP meds, though BP WNL PLAN Invega Sustenna 234 mg given on 10/11/20 Pt refuses labs and EKG; she understands it's function and risk of not getting but is not concerned and says there's nothing wrong with my heart. That said, most recent EKG is with a just barely prolonged Qtc; pt has no other cardiac history and Torsades is rare; here, benefit outweighs the risk as pt has stabilized considerably on this medication. VIBRA Consult placed Otherwise continue with primary tx plan: Pt refuses immobilizer sling-discontinue. Follow up [id number] fracture greater tuberosity -Discontinue 1:1. 15 minute safety checks -Decrease oxycodone to q 24 hours prn-discontinue 10/09/20. Pt will have used the medication for 4 weeks effective 09/25/20. Variable improvement with increase in lability, irritability and anger.The course is up and down. Pt exhibiting more mood sx currently however, po c ompliance is very erratic so difficult to treat effectively. ? ECT eval. By history, family reports atypical INFANTE takes about 3 months of treatment. Today, asking about discharge Olanzapine 10 mg bid. Olanzapine 10 mg daily prn. Will trial, if ineffective ?Vraylar, however it is only in PO form. Pt declines. Discussed lamictal trial, and antihypertensive eval for new regime. She refuses. Pt accepting of plan for respite, residential at this time, unclear if this will be an option. Discussed LTC referral with team. Treatment summary completed. Greater than 50% of the session was spent on counseling and/or coordination of care Reason for contiued inpatient stay Substantial Risk for: rapid decompensation and med/psych decompensation
[2020-10-18 09:53] VITALS: BP 128/79; PULSE 101; RESP 18
[2020-10-18 17:41] VITALS: BP 134/63; PULSE 104; RESP 18; TEMP 35.9; O2SAT 94
[2020-10-19 06:00] VITALS: BP 139/72; PULSE 89; RESP 18; TEMP 36.3; O2SAT 98
[2020-10-19] MEDS: LORazepam 0.5 MG TABLET PO ×2 (09:38→20:05)
[2020-10-19] MEDS: OLANZapine ODT 10 MG TAB.RAPDIS TRANSLINGU ×2 (09:38→20:05)
[2020-10-19] MEDS: Multivitamin TABLET 1 TAB PO (09:39)
--- NOTE | 2020-10-19 09:40 | P.PNPSI_ITS ---
Subjective Subjective Date of Service: 10/19/20 Reason For Visit: psychosis Interim History: Patient had bright affect and says she was ?good?. She says ?I feel lot better today...I was so tired yesterday, I was so tired... I was so tired. Patient reiterated that she would like to go to residential but accepted that she will discuss this more with her primary team provider when she returns. Icing Maker asked about medications and psychiatric illness and she said ?I do not have a psychiatric illness ? and then said she will not take the medications when she leaves. Medication Compliance: Intermittent Side effects from medications: No Attending Groups: Yes Mental Status Exam Mental Status Exam Narrative: Appearance: Appropriate attire; roscea clearing; some dry skin on face Patient Orientation: Person, Place Level of Consciousness: Awake and Alert Patient Behavior: calm Mood Description: good Affect Description: friendly Patient Cognition Impaired: Yes Ability to Follow Directions: fair Speech Pattern: Spontaneous Speech Memory Description: Remote Impaired, Immediate Impaired and Charge Coordinator Impaired Hallucinations: None Delusions: None expressed Thought Process: Goal Oriented Thought Content: does not want medications Judgment/insight: impaired Diagnostics Vital Signs (24Hr): Vital Signs - 24 hr 10/18/20 09:53 10/18/20 17:41 10/19/20 06:00 Temperature 96.6 F L 97.4 F Pulse Rate 101 H 104 H 89 Respiratory Rate 18 18 18 Blood Pressure 128/79 134/63 139/72 Pulse Oximetry 94 98 Body Mass Index 43.0 Labs Results: 09/12/20 10:07 08/25/20 20:31 Imaging Radiology Impressions: ITS Impressions Humerus X-Ray 08/26/20 00:00 IMPRESSION: Nondisplaced fracture of the humeral head tuberosity. Humerus X-Ray 09/23/20 11:48 IMPRESSION: Healing fracture greater tuberosity. Medications Medications Current Medications Generic Name Dose Route Start Last Admin Trade Name Freq PRN Reason Stop Dose Admin Al Hydroxide/Mg Hydroxide 30 ml 07/22/20 16:17 Magnesium Hydrox/Alum Hydrox 30 Ml Oral.Susp PO Q6H PRN Heartburn/Nausea Ibuprofen 800 mg 08/26/20 01:21 10/18/20 16:21 Ibuprofen 800 Mg Tablet PO 800 mg Q8H PRN Administration Pain, Moderate (Pain Scale 4-6 Lisinopril 5 mg 07/23/20 09:00 10/18/20 09:02 Lisinopril 5 Mg Tablet PO Not Given DAILY [facility] Protocol Lorazepam 0.5 mg 10/17/20 21:00 10/18/20 20:44 Lorazepam 0.5 Mg Tablet PO 0.5 mg BID LOBITO Administration Magnesium Hydroxide 30 ml 07/22/20 16:17 Milk Of Magnesia 30 Ml Oral.Susp PO DAILY PRN Constipation Melatonin 3 mg 07/22/20 17:58 10/10/20 23:54 Melatonin 3 Mg Tablet PO 3 mg BEDTIME PRN Administration Insomnia Metoprolol Tartrate 25 mg 07/22/20 21:00 10/18/20 20:45 Metoprolol Tartrate 25 Mg Tablet PO Not Given BID [facility] Protocol Metronidazole 1 appl 08/14/20 09:00 10/18/20 20:45 Metronidazole 0.75 % Gel 45 Gm Tube TOPICAL Not Given BID [facility] Multivitamins/Vitamin C 1 tab 07/23/20 09:00 10/18/20 09:05 Multivitamin Tablet PO 1 tab DAILY LOB[facility] Administration Patient Own 234 each 10/11/20 16:00 10/11/20 13:33 Medication Invega IM 234 each Sustenna 234 Mg Q30D [facility] Administration Nystatin 1 appl 07/22/20 21:00 10/18/20 20:45 Nystatin Powder 15 Gm Bottle TOPICAL Not Given BID [facility] Protocol Olanzapine 10 mg 09/22/20 16:24 Olanzapine Odt 10 Mg Tab.Rapdis TRANSLINGU DAILY PRN psychosis, agitation Olanzapine 10 mg 10/02/20 21:00 10/18/20 20:44 Olanzapine Odt 10 Mg Tab.Rapdis TRANSLINGU 10 mg BID [facility] Administration Olanzapine 10 mg 10/02/20 16:11 Olanzapine 10 Mg Vial IM BID PRN if pt refuses PO per court ord Senna 17.2 mg 07/22/20 17:59 Sennosides 8.6 Mg Tablet PO DAILY PRN Constipation Allergies Allergies Allergy/AdvReac Type Severity Reaction Status Date / Time acetaminophen [From TYLENOL] Allergy Intermediate HIVES Verified 07/22/20 02:13 meperidine [From Demerol] Allergy Unknown Verified 07/22/20 02:10 Assessment & Plan Assessment & Plan (1) Fracture of greater tuberosity of left humerus: Status: Acute Code(s): S42.252A - Displaced fracture of greater tuberosity of left humerus, initial encounter for closed fracture (2) Schizoaffective disorder: Status: Acute Code(s): F25.9 - Schizoaffective disorder, unspecified Assessment and Plan: no changes to current tx plan below Pt has poor insight; intermittently denies psychiatric illness and that court ordered treatment plan/[place] order exists. -discussed dispo with SW who reports patient remains with impaired insight saying she continues to refuse to meet with outpatient psychiatrist upon discharge, making her a quick return to inpatient unit. It is currently questionable whether she will be successful in a residential and whether she needs rn long term care inpatient facility. -VIBRA Consult placed -pt continues to refuse BP meds, though BP WNL PLAN Invega Sustenna 234 mg given on 10/11/20 Pt refuses labs and EKG; she understands it's function and risk of not getting but is not concerned and says there's nothing wrong with my heart. That said, most recent EKG is with a just barely prolonged Qtc; pt has no other cardiac history and Torsades is rare; here, benefit outweighs the risk as pt has stabilized considerably on this medication. VIBRA Consult placed Otherwise continue with primary tx plan: Pt refuses immobilizer sling-discontinue. Follow up [id number] fracture grea ter tuberosity -Discontinue 1:1. 15 minute safety checks -Decrease oxycodone to q 24 hours prn-discontinue 10/09/20. Pt will have used the medication for 4 weeks effective 09/25/20. Variable improvement with increase in lability, irritability and anger.The course is up and down. Pt exhibiting more mood sx currently however, po compliance is very erratic so difficult to treat effectively. ? ECT eval. By history, family reports atypical INFANTE takes about 3 months of treatment. Today, asking about discharge Olanzapine 10 mg bid. Olanzapine 10 mg daily prn. Will trial, if ineffective ?Vraylar, however it is only in PO form. Pt declines. Discussed lamictal trial, and antihypertensive eval for new regime. She refuses. Pt accepting of plan for respite, residential at this time, unclear if this will be an option. Discussed LTC referral with team. Treatment summary completed. Greater than 50% of the session was spent on counseling and/or coordination of care Reason for contiued inpatient stay Substantial Risk for: rapid decompensation
[2020-10-19 11:20] VITALS: BMI 43.7
[2020-10-19 17:19] VITALS: RESP 18
[2020-10-20] MEDS: OLANZapine ODT 10 MG TAB.RAPDIS TRANSLINGU ×2 (08:58→20:19)
[2020-10-20] MEDS: Multivitamin TABLET 1 TAB PO (08:58)
[2020-10-20] MEDS: LORazepam 0.5 MG TABLET PO ×2 (08:58→20:19)
--- NOTE | 2020-10-20 09:07 | HO.PSYCHPN ---
Subjective Subjective Date of Service: 11/03/20 Reason For Visit: psychosis Diagnostics Vital Signs (24Hr): Vital Signs - 24 hr 10/19/20 17:19 Respiratory Rate 18 Body Mass Index 43.7 Labs Results: 09/12/20 10:07 08/25/20 20:31 Imaging Radiology Impressions: ITS Impressions Humerus X-Ray 08/26/20 00:00 IMPRESSION: Nondisplaced fracture of the humeral head tuberosity. Humerus X-Ray 09/23/20 11:48 IMPRESSION: Healing fracture greater tuberosity. Medications Medications Current Medications Generic Name Dose Route Start Last Admin Trade Name Freq PRN Reason Stop Dose Admin Al Hydroxide/Mg Hydroxide 30 ml 07/22/20 16:17 Magnesium Hydrox/Alum Hydrox 30 Ml Oral.Susp PO Q6H PRN Heartburn/Nausea Ibuprofen 800 mg 08/26/20 01:21 10/18/20 16:21 Ibuprofen 800 Mg Tablet PO 800 mg Q8H PRN Administration Pain, Moderate (Pain Scale 4-6 Lisinopril 5 mg 07/23/20 09:00 10/20/20 09:02 Lisinopril 5 Mg Tablet PO Not Given DAILY [facility] Protocol Lorazepam 0.5 mg 10/17/20 21:00 10/20/20 08:58 Lorazepam 0.5 Mg Tablet PO 0.5 mg BID [facility] Administration Magnesium Hydroxide 30 ml 07/22/20 16:17 Milk Of Magnesia 30 Ml Oral.Susp PO DAILY PRN Constipation Melatonin 3 mg 07/22/20 17:58 10/10/20 23:54 Melatonin 3 Mg Tablet PO 3 mg BEDTIME PRN Administration Insomnia Metoprolol Tartrate 25 mg 07/22/20 21:00 10/20/20 09:02 Metoprolol Tartrate 25 Mg Tablet PO Not Given BID [facility] Protocol Metronidazole 1 appl 08/14/20 09:00 10/20/20 09:03 Metronidazole 0.75 % Gel 45 Gm Tube TOPICAL Not Given BID [facility] Multivitamins/Vitamin C 1 tab 07/23/20 09:00 10/20/20 08:58 Multivitamin Tablet PO 1 tab DAILY [facility] Administration Patient Own 234 each 10/11/20 16:00 10/11/20 13:33 Medication Invega IM 234 each Sustenna 234 Mg Q30D [facility] Administration Nystatin 1 appl 07/22/20 21:00 10/20/20 09:03 Nystatin Powder 15 Gm Bottle TOPICAL Not Given BID [facility] Protocol Olanzapine 10 mg 09/22/20 16:24 Olanzapine Odt 10 Mg Tab.Rapdis TRANSLINGU DAILY PRN psychosis, agitation Olanzapine 10 mg 10/02/20 21:00 10/20/20 08:58 Olanzapine Odt 10 Mg Tab.Rapdis TRANSLINGU 10 mg BID [facility] Administration Olanzapine 10 mg 10/02/20 16:11 Olanzapine 10 Mg Vial IM BID PRN if pt refuses PO per court ord Senna 17.2 mg 07/22/20 17:59 Sennosides 8.6 Mg Tablet PO DAILY PRN Constipation Allergies Allergies Allergy/AdvReac Type Severity Reaction Status Date / Time acetaminophen [From TYLENOL] Allergy Intermediate HIVES Verified 07/22/20 02:13 meperidine [From Demerol] Allergy Unknown Verified 07/22/20 02:10 Assessment & Plan Assessment & Plan (1) Fracture of greater tuberosity of left humerus: Status: Acute Code(s): S42.252A - Displaced fracture of greater tuberosity of left humerus, initial encounter for closed fracture (2) Schizoaffective disorder: Status: Acute Code(s): F25.9 - Schizoaffective disorder, unspecified Assessment and Plan: no changes to current tx plan below Pt has poor insight; intermittently denies psychiatric illness and that court ordered treatment plan/[place] order exists. -discussed dispo with LUBNA who reports patient remains with impaired insight saying she continues to refuse to meet with outpatient psychiatrist upon discharge, making her a quick return to inpatient unit. It is currently questionable whether she will be successful in a shelter and whether she needs intermediate frame tender inpatient facility. -VIBRA Consult placed -pt continues to refuse BP meds, though BP WNL PLAN Invega Sustenna 234 mg given on 10/11/20 Pt refuses labs and EKG; she understands it's function and risk of not getting but is not concerned and says there's nothing wrong with my heart. That said, most recent EKG is with a just barely prolonged Qtc; pt has no other cardiac history and Torsades is rare; here, benefit outweighs the risk as pt has stabilized considerably on this medication. VIBRA Consult placed Otherwise continue with primary tx plan: Pt refuses immobilizer sling-discontinue. Follow up [id number] fracture greater tuberosity -Discontinue 1:1. 15 minute safety checks -Decrease oxycodone to q 24 hours prn-discontinue 10/09/20. Pt will have used the medication for 4 weeks effective 09/25/20. Variable improvement with increase in lability, irritability and anger.The course is up and down. Pt exhibiting more mood sx currently however, po compliance is very erratic so difficult to treat effectively. ? ECT eval. By history, family reports atypical INFANTE takes about 3 months of treatment. Today, asking about discharge Olanzapine 10 mg bid. Olanzapine 10 mg daily prn. Will trial, if ineffective ?Vraylar, however it is only in PO form. Pt declines. Discussed lamictal trial, and antihypertensive eval for new regime. She refuses. Pt accepting of plan for respite, residential at this time, unclear if this will be an option. Discussed LTC referral with team. Treatment summary completed. Greater than 50% of the session was spent on counseling and/or coordination of care Reason for contiued inpatient stay Substantial Risk for: rapid decompensation
[2020-10-20 18:00] VITALS: RESP 16
[2020-10-21 06:00] VITALS: BP 101/67; PULSE 91; RESP 18; TEMP 34.4; O2SAT 95
[2020-10-21] MEDS: Multivitamin TABLET 1 TAB PO (08:55)
[2020-10-21] MEDS: OLANZapine ODT 10 MG TAB.RAPDIS TRANSLINGU ×2 (08:55→20:00)
[2020-10-21] MEDS: LORazepam 0.5 MG TABLET PO ×2 (08:55→20:00)
--- NOTE | 2020-10-21 11:16 | HO.PHPPROGNO ---
Subjective Subjective Date of Service: 10/21/20 Reason For Visit: psychosis Review of Systems Review of Systems Yes all other systems are reviewed and are negative, Unobtainable due to mental status and Other Musculoskeletal: Reports myalgias, Reports arthralgias, Reports limited range of motion, Reports muscle weakness, Reports radiating pain into limb and Reports other (intermittent arm/shoulder pain) Reports behavioral changes, Reports confusion and Reports memory loss Psychiatric: Reports abnormal sleep pattern, Reports anxiety, Reports behavioral changes, Reports change in appetite, Reports confusion, Reports depression, Reports difficulty concentrating, Reports auditory hallucinations, Reports hopelessness, Reports irritability, Reports anhedonia, Reports memory loss, Reports mood swings, Reports paranoia, Reports visual hallucinations, Reports hallucinations, Reports homicidal ideation and Reports suicidal ideation (denies) Mental Status Exam Mental Status Exam Narrative: Appearance: Appropriate attire; roscea clearing; some dry skin on face Patient Orientation: Person, Place Level of Consciousness: Awake and Alert Patient Behavior: calm Mood Description: good Affect Description: friendly Patient Cognition Impaired: Yes Ability to Follow Directions: fair Speech Pattern: Spontaneous Speech Memory Description: Remote Impaired, Immediate Impaired and Senior Living Impaired Hallucinations: None Delusions: None expressed Thought Process: Goal Oriented Thought Content: does not want medications Judgment/insight: impaired Diagnostics Vital Signs (24Hr): Vital Signs - 24 hr 10/20/20 18:00 10/21/20 06:00 Temperature 94 F L Pulse Rate 91 Respiratory Rate 16 18 Blood Pressure 101/67 Pulse Oximetry 95 Body Mass Index 43.7 Labs Results: 09/12/20 10:07 08/25/20 20:31 Imaging Radiology Impressions: ITS Impressions Humerus X-Ray 08/26/20 00:00 IMPRESSION: Nondisplaced fracture of the humeral head tuberosity. Humerus X-Ray 09/23/20 11:48 IMPRESSION: Healing fracture greater tuberosity. Assessment & Plan Certification Patient continues to have a daryn of hospital level of care for safety and stabilization. Greater than 50% of the session was spent on counseling and/or coordination of care Discharge Plan Discharge Patient Disposition: Home, Self-Care Discharge Diagnosis: schizoaffective disorder Referrals: Physician,Unknown [Primary Care Provider] - 1 Week Discharge Medications: Continued metronidazole [Metrogel] 1 % gel 1 appl topical DAILY RF: 0 Invega Sustenna 234 mg/1.5 mL syringe 234 mg IM Q30D Qty: 1 RF: 0 clonazepam [Klonopin] 0.5 mg tablet 0.5 mg PO Q4-6H PRN (Reason: Anxiety) RF: 0 melatonin 3 mg capsule 3 mg PO BEDTIME PRN (Reason: qhs) RF: 0 multivitamin Tablet 1 tab PO DAILY RF: 0 lisinopril 5 mg tablet 5 mg PO DAILY RF: 0 albuterol sulfate 90 mcg/actuation HFA aerosol inhaler 2 puff inhalation Q4-6H PRN (Reason: Shortness Of Breath Or Wheezing) RF: 0 metoprolol tartrate 25 mg tablet 25 mg PO BID RF: 0 lidocaine [Lidoderm] 5 % adhesive patch,medicated 1 patch topical DAILY RF: 0 Narcan 4 mg/actuation spray,non-aerosol 4 mg intranasal Q3M PRN (Reason: Opioid Overdose) RF: 0 sennosides 15 mg tablet 17 mg PO DAILY PRN (Reason: Constipation) RF: 0 nystatin [Nyamyc] 100,000 unit/gram powder 1 applic topical BID RF: 0 Stand Alone Forms: Patient Portal Discharge page
--- NOTE | 2020-10-21 11:24 | P.PNPSI_ITS ---
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 Humerus X-Ray 09/23/20 11:48 IMPRESSION: Healing fracture greater tuberosity. Medications Medications Current Medications Generic Name Dose Route Start Last Admin Trade Name Freq PRN Reason Stop Dose Admin Ibuprofen 800 mg 08/26/20 01:21 10/18/20 16:21 Ibuprofen 800 Mg Tablet PO 800 mg Q8H PRN Administration Pain, Moderate (Pain Scale 4-6 Lorazepam 0.5 mg 10/17/20 21:00 10/21/20 08:55 Lorazepam 0.5 Mg Tablet PO 0.5 mg BID [facility] Administration Metronidazole 1 appl 08/14/20 09:00 10/21/20 08:55 Metronidazole 0.75 % Gel 45 Gm Tube TOPICAL Not Given BID [facility] Patient Own 234 each 10/11/20 16:00 10/11/20 13:33 Medication Invega IM 234 each Sustenna 234 Mg Q30D [facility] Administration Olanzapine 10 mg 09/22/20 16:24 Olanzapine Odt 10 Mg Tab.Rapdis TRANSLINGU DAILY PRN psychosis, agitation Olanzapine 10 mg 10/02/20 21:00 10/21/20 08:55 Olanzapine Odt 10 Mg Tab.Rapdis TRANSLINGU 10 mg BID [facility] Administration Olanzapine 10 mg 10/02/20 16:11 Olanzapine 10 Mg Vial IM BID PRN if pt refuses PO per court ord Allergies Allergies Allergy/AdvReac Type Severity Reaction Status Date / Time acetaminophen [From TYLENOL] Allergy Intermediate HIVES Verified 07/22/20 02:13 meperidine [From Demerol] Allergy Unknown Verified 07/22/20 02:10 Assessment & Plan Assessment & Plan (1) Fracture of greater tuberosity of left humerus: Status: Acute Code(s): S42.252A - Displaced fracture of greater tuberosity of left humerus, initial encounter for closed fracture (2) Schizoaffective disorder: Status: Acute Code(s): F25.9 - Schizoaffective disorder, unspecified Assessment and Plan: no changes to current tx plan below Pt has poor insight; intermittently denies psychiatric illness and that court ordered treatment plan/[place] order exists. -discussed dispo with SW who reports patient remains with impaired insight saying she continues to refuse to meet with outpatient psychiatrist upon discharge, making her a quick return to inpatient unit. It is currently questionable whether she will be successful in a [facility] and whether she needs adjunct faculty for medical terminology inpatient facility. -VIBRA Consult placed -pt continues to refuse BP meds, though BP WNL PLAN Invega Sustenna 234 mg given on 10/11/20 Pt refuses labs and EKG; she understands it's function and risk of not getting but is not concerned and says there's nothing wrong with my heart. That said, most recent EKG is with a just barely prolonged Qtc; pt has no other cardiac history and Torsades is rare; here, benefit outweighs the risk as pt has stabilized considerably on this medication. VIBRA Consult placed Otherwise continue with primary tx plan: Pt refuses immobilizer sling-discontinue. Follow up [id number] fracture greater tuberosity -Discontinue 1:1. 15 minute safety checks -Decrease oxycodone to q 24 hours prn-discontinue 10/09/20. Pt will have used the medication for 4 weeks effective 09/25/20. Variable improvement with increase in lability, irritability and anger.The co urse is up and down. Pt exhibiting more mood sx currently however, po compliance is very erratic so difficult to treat effectively. ? ECT eval. By history, family reports atypical INFANTE takes about 3 months of treatment. Today, asking about discharge Olanzapine 10 mg bid. Olanzapine 10 mg daily prn. Will trial, if ineffective ?Vraylar, however it is only in PO form. Pt declines. Discussed lamictal trial, and antihypertensive eval for new regime. She refuses. Pt accepting of plan for respite, residential at this time, unclear if this will be an option. Discussed LTC referral with team. Treatment summary completed. Greater than 50% of the session was spent on counseling and/or coordination of care Reason for contiued inpatient stay Substantial Risk for: harm to self
[2020-10-21 16:24] VITALS: RESP 16
[2020-10-22] MEDS: Ibuprofen 800 MG TABLET PO ×2 (06:39→19:23)
--- NOTE | 2020-10-22 08:58 | P.PNPSI_ITS ---
Subjective Subjective Date of Service: 10/22/20 Reason For Visit: psychosis Subjective Notes: Conditional Voluntary Medical Problems Affecting Mental Status: No Interim History: Patient was seen in rounds today. She has been visible. She has been taking her medications intermittently, having refused the morning dose but took the medications later in the day. She has been taking the Zyprexa and Ativan more regularly. She denies any side effects. Eating and sleeping adequately. No SI. No signs of psychosis. 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 Humerus X-Ray 09/23/20 11:48 IMPRESSION: Healing fracture greater tuberosity. Medications Medications Current Medications Generic Name Dose Route Start Last Admin Trade Name Elizabeth PRN Reason Stop Dose Admin Ibuprofen 800 mg 08/26/20 01:21 10/22/20 06:39 Ibuprofen 800 Mg Tablet PO 800 mg Q8H PRN Administration Pain, Moderate (Pain Scale 4-6 Lorazepam 0.5 mg 10/17/20 21:00 10/21/20 20:00 Lorazepam 0.5 Mg Tablet PO 0.5 mg BID LOBITO Administration Metronidazole 1 appl 08/14/20 09:00 10/21/20 20:16 Metronidazole 0.75 % Gel 45 Gm Tube TOPICAL Not Given BID LOBITO Patient Own 234 each 10/11/20 16:00 10/11/20 13:33 Medication Invega IM 234 each Sustenna 234 Mg Q30D LOBITO Administration Olanzapine 10 mg 09/22/20 16:24 Olanzapine Odt 10 Mg Tab.Rapdis TRANSLINGU DAILY PRN psychosis, agitation Olanzapine 10 mg 10/02/20 21:00 10/21/20 20:00 Olanzapine Odt 10 Mg Tab.Rapdis TRANSLINGU 10 mg BID LOBITO Administration Olanzapine 10 mg 10/02/20 16:11 Olanzapine 10 Mg Vial IM BID PRN if pt refuses PO per court ord Allergies Allergies Allergy/AdvReac Type Severity Reaction Status Date / Time acetaminophen [From TYLENOL] Allergy Intermediate HIVES Verified 07/22/20 02:13 meperidine [From Demerol] Allergy Unknown Verified 07/22/20 02:10 Assessment & Plan Assessment & Plan (1) Fracture of greater tuberosity of left humerus: Status: Acute Code(s): S42.252A - Displaced fracture of greater tuberosity of left humerus, initial encounter for closed fracture (2) Schizoaffective disorder: Status: Acute Code(s): F25.9 - Schizoaffective disorder, unspecified Assessment and Plan: no changes to current tx plan below Pt has poor insight; intermittently denies psychiatric illness and that court ordered treatment plan/[place] order exists. PLAN Invega Sustenna 234 mg given on 10/11/20 Pt refuses labs and EKG; she understands it's function and risk of not getting but is not concerned and says there's nothing wrong with my heart. That said, most recent EKG is with a just barely prolonged Qtc; pt has no other cardiac history and Torsades is rare; here, benefit outweighs the risk as pt has stabilized considerably on this medication. VIBRA Consult placed Otherwise continue with primary tx plan: Pt refuses immobilizer sling-discontinue. Follow up [id number] fracture greater tuberosity -Discontinue 1:1. 15 minute safety checks -Decrease oxycodone to q 24 hours prn-discontinue 10/09/20. Pt will have used the medication for 4 weeks effective 09/25/20. Variable improvement with increase in lability, irritability and anger.The course is up and down. Pt exhibiting more mood sx currently however, po compliance is very erratic so difficult to treat effectively. ? ECT eval. By history, family reports atypical INFANTE takes about 3 months of treatment. Today, asking about discharge Olanzapine 10 mg bid. Olanzapine 10 mg daily prn. Will trial, if ineffective ?Kuldeep, however it is only in PO form. Pt declines. Discussed lamictal trial, and antihypertensive eval for new regime. She refuses. Greater than 50% of the session was spent on counseling and/or coordination of care Reason for contiued inpatient stay Substantial Risk for: inability to function
[2020-10-22] MEDS: OLANZapine ODT 10 MG TAB.RAPDIS TRANSLINGU ×2 (10:00→20:29)
[2020-10-22] MEDS: LORazepam 0.5 MG TABLET PO ×2 (10:00→20:30)
[2020-10-22 16:30] VITALS: BP 120/71; PULSE 101; TEMP 36.3
[2020-10-23] MEDS: OLANZapine ODT 10 MG TAB.RAPDIS TRANSLINGU ×2 (09:16→20:17)
--- NOTE | 2020-10-23 09:35 | HO.PSYCHPN ---
Subjective Subjective Date of Service: 10/23/20 Reason For Visit: psychosis Subjective Notes: Conditional Voluntary Interim History: Subjective Notes: Conditional Voluntary Medical Problems Affecting Mental Status: No Interim History: Patient was seen in rounds today. She has been doing better and has been compliant with treatment and medications. She had some questions pertaining to dietary supplements which we discussed and multivitamin and vitamin-D was ordered. Ativan order was renewed. She has been visible on social. Eating and sleeping adequately. No other complaints or changes. Continue current regimen Medication Compliance: Yes Side effects from medications: No Attending Groups: Yes Review of Systems Review of Systems Yes all other systems are reviewed and are negative Mental Status Exam Mental Status Exam Narrative: Patient was seen today. She is alert, oriented and pleasant. Normal speech. Good eye contact. Affect is appropriate and varied. No signs of psychosis. No overt signs of depression. No SI. Cognitively intact. Diagnostics Vital Signs (24Hr): Vital Signs - 24 hr 10/22/20 16:30 Temperature 97.3 F Pulse Rate 101 H Blood Pressure 120/71 Body Mass Index 43.7 Labs Results: 09/12/20 10:07 08/25/20 20:31 Imaging Radiology Impressions: ITS Impressions Humerus X-Ray 08/26/20 00:00 IMPRESSION: Nondisplaced fracture of the humeral head tuberosity. Humerus X-Ray 09/23/20 11:48 IMPRESSION: Healing fracture greater tuberosity. Medications Medications Current Medications Generic Name Dose Route Start Last Admin Trade Name Freq PRN Reason Stop Dose Admin Ibuprofen 800 mg 08/26/20 01:21 10/22/20 19:23 Ibuprofen 800 Mg Tablet PO 800 mg Q8H PRN Administration Pain, Moderate (Pain Scale 4-6 Lorazepam 0.5 mg 10/23/20 09:33 Lorazepam 0.5 Mg Tablet PO BID [facility] Metronidazole 1 appl 08/14/20 09:00 10/23/20 09:16 Metronidazole 0.75 % Gel 45 Gm Tube TOPICAL Not Given BID [facility] Multivitamins/Minerals 1 tab 10/23/20 09:45 Multivitamin With Minerals Tablet PO DAILY [facility] Patient Own 234 each 10/11/20 16:00 10/11/20 13:33 Medication Invega IM 234 each Sustenna 234 Mg Q30D LOBITO Administration Olanzapine 10 mg 09/22/20 16:24 Olanzapine Odt 10 Mg Tab.Rapdis TRANSLINGU DAILY PRN psychosis, agitation Olanzapine 10 mg 10/02/20 21:00 10/23/20 09:16 Olanzapine Odt 10 Mg Tab.Rapdis TRANSLINGU 10 mg BID LOBITO Administration Olanzapine 10 mg 10/02/20 16:11 Olanzapine 10 Mg Vial IM BID PRN if pt refuses PO per court ord Vitamin D 10 mcg 10/23/20 09:45 Cholecalciferol (Vitamin D3) 10 Mcg Tablet PO DAILY LOBITO Allergies Allergies Allergy/AdvReac Type Severity Reaction Status Date / Time acetaminophen [From TYLENOL] Allergy Intermediate HIVES Verified 07/22/20 02:13 meperidine [From Demerol] Allergy Unknown Verified 07/22/20 02:10 Assessment & Plan Assessment & Plan (1) Fracture of greater tuberosity of left humerus: Status: Acute Code(s): S42.252A - Displaced fracture of greater tuberosity of left humerus, initial encounter for closed fracture (2) Schizoaffective disorder: Status: Acute Code(s): F25.9 - Schizoaffective disorder, unspecified Assessment and Plan: no changes to current tx plan below Pt has poor insight; intermittently denies psychiatric illness and that court ordered treatment plan/[place] order exists. PLAN Continue current regimen and plans Greater than 50% of the session was spent on counseling and/or coordination of care Reason for contiued inpatient stay Substantial Risk for: other
[2020-10-23] MEDS: LORazepam 0.5 MG TABLET PO ×2 (10:24→20:17)
[2020-10-23 17:09] VITALS: RESP 18
[2020-10-24 08:30] VITALS: BP 124/73; PULSE 91; TEMP 36.4; O2SAT 96
[2020-10-24] MEDS: LORazepam 0.5 MG TABLET PO ×2 (09:54→20:14)
[2020-10-24] MEDS: Cholecalciferol (Vitamin D3) 10 MCG TABLET PO (09:54)
[2020-10-24] MEDS: OLANZapine ODT 10 MG TAB.RAPDIS TRANSLINGU ×2 (09:54→20:15)
--- NOTE | 2020-10-24 19:05 | P.PNPSI_ITS ---
Subjective Subjective Date of Service: 10/24/20 Reason For Visit: psychosis Subjective Notes: Section 8 Healthcare Proxy: No Guardianship: No Medical Problems Affecting Mental Status: No Interim History: Pt reports she is well. Discussed ending of commitment on 11/03/20. She reports she is willing to transfer to respite for transition back to the [facility]. Medication Compliance: Yes Side effects from medications: No Attending Groups: Intermittent Review of Systems Review of Systems Yes all other systems are reviewed and are negative (denies issues today.) Psychiatric: Reports mood swings Mental Status Exam Mental Status Exam Patient Appearance: Appropriate Patient Orientation: Person, Place, Time and Situation Level of Consciousness: Awake and Alert Patient Behavior: Talkative Mood Description: Constricted Affect Description: Constricted Patient Cognition Impaired: Yes Ability to Follow Directions: Good Speech Pattern: Spontaneous Speech Memory Description: Remote Impaired and Episodic Impaired Hallucinations: None Delusions: Present Thought Process: Distracted Thought Content: positive for Cow[place] and positive for Circumstantial Depressive Symptoms: Increased Irritability Judgement: Fair Diagnostics Vital Signs (24Hr): Vital Signs - 24 hr 10/24/20 08:30 Temperature 97.5 F Pulse Rate 91 Blood Pressure 124/73 Pulse Oximetry 96 Body Mass Index 43.7 Labs Results: 09/12/20 10:07 08/25/20 20:31 Imaging Radiology Impressions: ITS Impressions Humerus X-Ray 08/26/20 00:00 IMPRESSION: Nondisplaced fracture of the humeral head tuberosity. Humerus X-Ray 09/23/20 11:48 IMPRESSION: Healing fracture greater tuberosity. Medications Medications Current Medications Generic Name Dose Route Start Last Admin Trade Name Freq PRN Reason Stop Dose Admin Ibuprofen 800 mg 08/26/20 01:21 10/22/20 19:23 Ibuprofen 800 Mg Tablet PO 800 mg Q8H PRN Administration Pain, Moderate (Pain Scale 4-6 Lorazepam 0.5 mg 10/23/20 09:33 10/24/20 09:54 Lorazepam 0.5 Mg Tablet PO 0.5 mg BID LOBITO Administration Metronidazole 1 appl 08/14/20 09:00 10/24/20 09:59 Metronidazole 0.75 % Gel 45 Gm Tube TOPICAL Not Given BID [facility] Multivitamins/Minerals 1 tab 10/23/20 09:45 10/24/20 09:54 Multivitamin With Minerals Tablet PO 1 tab DAILY LOBITO Administration Patient Own 234 each 10/11/20 16:00 10/11/20 13:33 Medication Invega IM 234 each Sustenna 234 Mg Q30D LOBITO Administration Olanzapine 10 mg 09/22/20 16:24 Olanzapine Odt 10 Mg Tab.Rapdis TRANSLINGU DAILY PRN psychosis, agitation Olanzapine 10 mg 10/02/20 21:00 10/24/20 09:54 Olanzapine Odt 10 Mg Tab.Rapdis TRANSLINGU 10 mg BID LOBITO Administration Olanzapine 10 mg 10/02/20 16:11 Olanzapine 10 Mg Vial IM BID PRN if pt refuses PO per court ord Vitamin D 10 mcg 10/23/20 09:45 10/24/20 09:54 Cholecalciferol (Vitamin D3) 10 Mcg Tablet PO 10 mcg DAILY LOBITO Administration Allergies Allergies Allergy/AdvReac Type Severity Reaction Status Date / Time acetaminophen [From TYLENOL] Allergy Intermediate HIVES Verified 07/22/20 02:13 meperidine [From Demerol] Allergy Unknown Verified 07/22/20 02:10 Assessment & Plan Assessment & Plan (1) Fracture of greater tuberosity of left humerus: Status: Acute Code(s): S42.252A - Displaced fracture of greater tuberosity of left humerus, initial encounter for closed fracture (2) Schizoaffective disorder: Status: Acute Code(s): F25.9 - Schizoaffective disorder, unspecified Assessment and Plan: no changes to current tx plan below Pt has poor insight; intermittently denies psychiatric illness and that court ordered treatment plan/[place] order exists. PLAN Continue current regimen and plans Transition to respite Greater than 50% of the session was spent on counseling and/or coordination of care Reason for contiued inpatient stay Substantial Risk for: harm to self, harm to others, inability to function, rapid decompensation and med/psych decompensation
[2020-10-25] MEDS: LORazepam 0.5 MG TABLET PO ×2 (08:51→20:29)
[2020-10-25] MEDS: OLANZapine ODT 10 MG TAB.RAPDIS TRANSLINGU ×2 (08:52→20:29)
[2020-10-25] MEDS: Cholecalciferol (Vitamin D3) 10 MCG TABLET PO (08:52)
[2020-10-25 09:44] VITALS: RESP 18
--- NOTE | 2020-10-25 19:40 | HO.PSYCHPN ---
Subjective Subjective Date of Service: 10/25/20 Reason For Visit: psychosis Subjective Notes: Section 8 Healthcare Proxy: No Guardianship: No Medical Problems Affecting Mental Status: No Interim History: Pt talked of her mother today. 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 Expressed her respect and pride for mother's accomplishments. Also spoke of her daughter whom she has not discussed with TW. Asking about respite, encouraged to keep on track Medication Compliance: Yes Side effects from medications: No Attending Groups: Intermittent Review of Systems Review of Systems Yes all other systems are reviewed and are negative Reports behavioral changes Psychiatric: Reports behavioral changes Mental Status Exam Mental Status Exam Patient Appearance: Appropriate Patient Orientation: Person, Place, Time and Situation Level of Consciousness: Alert Patient Behavior: Appropriate and Cooperative Mood Description: Calm Affect Description: Calm Patient Cognition Impaired: Yes Ability to Follow Directions: Good Speech Pattern: Spontaneous Speech Memory Description: Remote Impaired and Episodic Impaired Hallucinations: None Delusions: Present Thought Process: Intact Thought Content: positive for [place] and positive for Circumstantial Depressive Symptoms: Increased Irritability Judgement: Fair Diagnostics Vital Signs (24Hr): Vital Signs - 24 hr 10/25/20 09:44 Respiratory Rate 18 Body Mass Index 43.7 Labs Results: 09/12/20 10:07 08/25/20 20:31 Imaging Radiology Impressions: ITS Impressions Humerus X-Ray 08/26/20 00:00 IMPRESSION: Nondisplaced fracture of the humeral head tuberosity. Humerus X-Ray 09/23/20 11:48 IMPRESSION: Healing fracture greater tuberosity. Medications Medications Current Medications Generic Name Dose Route Start Last Admin Trade Name Freq PRN Reason Stop Dose Admin Ibuprofen 800 mg 08/26/20 01:21 10/22/20 19:23 Ibuprofen 800 Mg Tablet PO 800 mg Q8H PRN Administration Pain, Moderate (Pain Scale 4-6 Lorazepam 0.5 mg 10/23/20 09:33 10/25/20 08:51 Lorazepam 0.5 Mg Tablet PO 0.5 mg BID LOBITO Administration Metronidazole 1 appl 08/14/20 09:00 10/25/20 09:00 Metronidazole 0.75 % Gel 45 Gm Tube TOPICAL Not Given BID [facility] Multivitamins/Minerals 1 tab 10/23/20 09:45 10/25/20 08:51 Multivitamin With Minerals Tablet PO 1 tab DAILY LOBITO Administration Patient Own 234 each 10/11/20 16:00 10/11/20 13:33 Medication Invega IM 234 each Sustenna 234 Mg Q30D LOBITO Administration Olanzapine 10 mg 09/22/20 16:24 Olanzapine Odt 10 Mg Tab.Rapdis TRANSLINGU DAILY PRN psychosis, agitation Olanzapine 10 mg 10/02/20 21:00 10/25/20 08:52 Olanzapine Odt 10 Mg Tab.Rapdis TRANSLINGU 10 mg BID LOBITO Administration Olanzapine 10 mg 10/02/20 16:11 Olanzapine 10 Mg Vial IM BID PRN if pt refuses PO per court ord Vitamin D 10 mcg 10/23/20 09:45 10/25/20 08:52 Cholecalciferol (Vitamin D3) 10 Mcg Tablet PO 10 mcg DAILY LOBITO Administration Allergies Allergies Allergy/AdvReac Type Severity Reaction Status Date / Time acetaminophen [From TYLENOL] Allergy Intermediate HIVES Verified 07/22/20 02:13 meperidine [From Demerol] Allergy Unknown Verified 07/22/20 02:10 Assessment & Plan Assessment & Plan (1) Fracture of greater tuberosity of left humerus: Status: Acute Code(s): S42.252A - Displaced fracture of greater tuberosity of left humerus, initial encounter for closed fracture (2) Schizoaffective disorder: Status: Acute Code(s): F25.9 - Schizoaffective disorder, unspecified Assessment and Plan: no changes to current tx plan below Pt has poor insight; intermittently denies psychiatric illness and that court ordered treatment plan/[place] order exists. PLAN Continue current regimen and plans Transition to respite Greater than 50% of the session was spent on counseling and/or coordination of care Reason for contiued inpatient stay Substantial Risk for: harm to self, harm to others, inability to function, rapid decompensation and med/psych decompensation
[2020-10-26 05:50] VITALS: BP 123/58; PULSE 83; RESP 18; TEMP 36.2; O2SAT 97
[2020-10-26] MEDS: Ibuprofen 800 MG TABLET PO (06:09)
[2020-10-26 07:00] VITALS: BMI 44.3
[2020-10-26] MEDS: Cholecalciferol (Vitamin D3) 10 MCG TABLET PO (09:20)
[2020-10-26] MEDS: OLANZapine ODT 10 MG TAB.RAPDIS TRANSLINGU ×2 (09:21→20:21)
[2020-10-26] MEDS: LORazepam 0.5 MG TABLET PO ×2 (09:21→20:21)
[2020-10-26 16:55] VITALS: BP 134/74; PULSE 101; TEMP 38.3
--- NOTE | 2020-10-26 19:27 | P.PNPSI_ITS ---
Subjective Subjective Date of Service: 10/26/20 Reason For Visit: psychosis Subjective Notes: Section 8 Healthcare Proxy: No Guardianship: No Medical Problems Affecting Mental Status: No Interim History: Spending time with team, down today. Talking with team about losing Jhony, having illness and coping. 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 Overall improved with grieving evident. Medication Compliance: Yes Side effects from medications: No Attending Groups: Yes Review of Systems Review of Systems Yes all other systems are reviewed and are negative Reports behavioral changes Psychiatric: Reports behavioral changes and Reports depression (grieving) Mental Status Exam Mental Status Exam Patient Appearance: Appropriate Patient Orientation: Person, Place, Time and Situation Level of Consciousness: Alert Patient Behavior: Appropriate Mood Description: Depressed Affect Description: Flat Patient Cognition Impaired: Yes Ability to Follow Directions: Good Speech Pattern: Spontaneous Speech Memory Description: Remote Impaired, Immediate Impaired and Episodic Impaired Hallucinations: None Delusions: Not Present Thought Process: Intact and Rumination Thought Content: positive for Intact and positive for Circumstantial Depressive Symptoms: Unhappiness (grief) Judgement: Fair Diagnostics Vital Signs (24Hr): Vital Signs - 24 hr 10/26/20 05:50 10/26/20 16:55 Temperature 97.1 F 101 F H Pulse Rate 83 101 H Respiratory Rate 18 Blood Pressure 123/58 L 134/74 Pulse Oximetry 97 Body Mass Index 44.3 Labs Results: 09/12/20 10:07 08/25/20 20:31 Imaging Radiology Impressions: ITS Impressions Humerus X-Ray 08/26/20 00:00 IMPRESSION: Nondisplaced fracture of the humeral head tuberosity. Humerus X-Ray 09/23/20 11:48 IMPRESSION: Healing fracture greater tuberosity. Medications Medications Current Medications Generic Name Dose Route Start Last Admin Trade Name Freq PRN Reason Stop Dose Admin Ibuprofen 800 mg 08/26/20 01:21 10/26/20 06:09 Ibuprofen 800 Mg Tablet PO 800 mg Q8H PRN Administration Pain, Moderate (Pain Scale 4-6 Lorazepam 0.5 mg 10/23/20 09:33 10/26/20 09:21 Lorazepam 0.5 Mg Tablet PO 0.5 mg BID LOBITO Administration Metronidazole 1 appl 08/14/20 09:00 10/26/20 11:14 Metronidazole 0.75 % Gel 45 Gm Tube TOPICAL Not Given BID [facility] Multivitamins/Minerals 1 tab 10/23/20 09:45 10/26/20 09:21 Multivitamin With Minerals Tablet PO 1 tab DAILY LOBITO Administration Patient Own 234 each 10/11/20 16:00 10/11/20 13:33 Medication Invega IM 234 each Sustenna 234 Mg Q30D LOBITO Administration Olanzapine 10 mg 09/22/20 16:24 Olanzapine Odt 10 Mg Tab.Rapdis TRANSLINGU DAILY PRN psychosis, agitation Olanzapine 10 mg 10/02/20 21:00 10/26/20 09:21 Olanzapine Odt 10 Mg Tab.Rapdis TRANSLINGU 10 mg BID LOBITO Administration Olanzapine 10 mg 10/02/20 16:11 Olanzapine 10 Mg Vial IM BID PRN if pt refuses PO per court ord Vitamin D 10 mcg 10/23/20 09:45 10/26/20 09:20 Cholecalciferol (Vitamin D3) 10 Mcg Tablet PO 10 mcg DAILY LOBITO Administration Allergies Allergies Allergy/AdvReac Type Severity Reaction Status Date / Time acetaminophen [From TYLENOL] Allergy Intermediate HIVES Verified 07/22/20 02:13 meperidine [From Demerol] Allergy Unknown Verified 07/22/20 02:10 Assessment & Plan Assessment & Plan (1) Fracture of greater tuberosity of left humerus: Status: Acute Code(s): S42.252A - Displaced fracture of greater tuberosity of left humerus, initial encounter for closed fracture (2) Schizoaffective disorder: Status: Acute Code(s): F25.9 - Schizoaffective disorder, unspecified Assessment and Plan: no changes to current tx plan below Pt has poor insight; intermittently denies psychiatric illness and that court ordered treatment plan/[place] order exists. PLAN Continue current regimen and plans Transition to respite Greater than 50% of the session was spent on counseling and/or coordination of care Reason for contiued inpatient stay Substantial Risk for: harm to self, harm to others, inability to function, rapid decompensation and med/psych decompensation
[2020-10-27 06:45] VITALS: BP 118/68; PULSE 80; RESP 18; TEMP 36; O2SAT 97
[2020-10-27] MEDS: OLANZapine ODT 10 MG TAB.RAPDIS TRANSLINGU ×2 (08:18→20:14)
[2020-10-27] MEDS: Cholecalciferol (Vitamin D3) 10 MCG TABLET PO (08:18)
[2020-10-27] MEDS: LORazepam 0.5 MG TABLET PO ×2 (08:18→20:14)
[2020-10-27] MEDS: Ibuprofen 800 MG TABLET PO (15:53)
[2020-10-27 16:25] VITALS: RESP 16
--- NOTE | 2020-10-27 17:30 | HO.PSYCHPN ---
Subjective Subjective Date of Service: 10/27/20 Reason For Visit: psychosis Subjective Notes: Section [employer] Proxy: No Guardianship: No Medical Problems Affecting Mental Status: No Interim History: Visable and interactive in milieu. Approachable and independently approaches to initiate appropriate discussion Mood appears euthymic today. Pt reports a bad day yesterday, but today, a bit better. Medication Compliance: Yes Side effects from medications: No Attending Groups: Yes Review of Systems Review of Systems Yes all other systems are reviewed and are negative Reports behavioral changes Psychiatric: Reports behavioral changes Mental Status Exam Mental Status Exam Patient Appearance: Appropriate Patient Orientation: Person, Place and Time Level of Consciousness: Awake and Alert Patient Behavior: Appropriate, Talkative, Cooperative and Good Eye Contact Mood Description: Constricted Affect Description: Flat Patient Cognition Impaired: Yes Ability to Follow Directions: Good Speech Pattern: Spontaneous Speech and Soft-Spoken Memory Description: Remote Impaired, Immediate Impaired, Intermediate Impaired and Episodic Impaired Hallucinations: None Delusions: Present Thought Process: Intact and Distracted Thought Content: positive for [place] and positive for Circumstantial Depressive Symptoms: Diff. Making Decisions, Unhappiness and Low Self Esteem Judgement: Fair Diagnostics Vital Signs (24Hr): Vital Signs - 24 hr 10/27/20 06:45 10/27/20 16:25 Temperature 96.8 F Pulse Rate 80 Respiratory Rate 18 16 Blood Pressure 118/68 Pulse Oximetry 97 Body Mass Index 44.3 Labs Results: 09/12/20 10:07 08/25/20 20:31 Imaging Radiology Impressions: ITS Impressions Humerus X-Ray 08/26/20 00:00 IMPRESSION: Nondisplaced fracture of the humeral head tuberosity. Humerus X-Ray 09/23/20 11:48 IMPRESSION: Healing fracture greater tuberosity. Medications Medications Current Medications Generic Name Dose Route Start Last Admin Trade Name Freq PRN Reason Stop Dose Admin Ibuprofen 800 mg 08/26/20 01:21 10/27/20 15:53 Ibuprofen 800 Mg Tablet PO 800 mg Q8H PRN Administration Pain, Moderate (Pain Scale 4-6 Lorazepam 0.5 mg 10/23/20 09:33 10/27/20 08:18 Lorazepam 0.5 Mg Tablet PO 0.5 mg BID LOBITO Administration Metronidazole 1 appl 08/14/20 09:00 10/27/20 08:19 Metronidazole 0.75 % Gel 45 Gm Tube TOPICAL Not Given BID [facility] Multivitamins/Minerals 1 tab 10/23/20 09:45 10/27/20 08:18 Multivitamin With Minerals Tablet PO 1 tab DAILY LOBITO Administration Patient Own 234 each 10/11/20 16:00 10/11/20 13:33 Medication Invega IM 234 each Sustenna 234 Mg Q30D LOBITO Administration Olanzapine 10 mg 09/22/20 16:24 Olanzapine Odt 10 Mg Tab.Rapdis TRANSLINGU DAILY PRN psychosis, agitation Olanzapine 10 mg 10/02/20 21:00 10/27/20 08:18 Olanzapine Odt 10 Mg Tab.Rapdis TRANSLINGU 10 mg BID LOBITO Administration Olanzapine 10 mg 10/02/20 16:11 Olanzapine 10 Mg Vial IM BID PRN if pt refuses PO per court ord Vitamin D 10 mcg 10/23/20 09:45 10/27/20 08:18 Cholecalciferol (Vitamin D3) 10 Mcg Tablet PO 10 mcg DAILY LOBITO Administration Allergies Allergies Allergy/AdvReac Type Severity Reaction Status Date / Time acetaminophen [From TYLENOL] Allergy Intermediate HIVES Verified 07/22/20 02:13 meperidine [From Demerol] Allergy Unknown Verified 07/22/20 02:10 Assessment & Plan Assessment & Plan (1) Fracture of greater tuberosity of left humerus: Status: Acute Code(s): S42.252A - Displaced fracture of greater tuberosity of left humerus, initial encounter for closed fracture (2) Schizoaffective disorder: Status: Acute Code(s): F25.9 - Schizoaffective disorder, unspecified Assessment and Plan: no changes to current tx plan below Pt has poor insight; intermittently denies psychiatric illness and that court ordered treatment plan/[place] order exists. PLAN Continue current regimen and plans Transition to respite Greater than 50% of the session was spent on counseling and/or coordination of care Reason for contiued inpatient stay Substantial Risk for: harm to self, harm to others, inability to function, rapid decompensation and med/psych decompensation
[2020-10-28] MEDS: Cholecalciferol (Vitamin D3) 10 MCG TABLET PO (08:45)
[2020-10-28] MEDS: LORazepam 0.5 MG TABLET PO ×2 (08:45→20:41)
[2020-10-28] MEDS: OLANZapine ODT 10 MG TAB.RAPDIS TRANSLINGU ×2 (08:45→20:41)
--- NOTE | 2020-10-28 20:32 | P.PNPSI_ITS ---
Subjective Subjective Date of Service: 10/28/20 Reason For Visit: psychosis Subjective Notes: Section 8 Healthcare Proxy: No Guardianship: No Medical Problems Affecting Mental Status: No Interim History: Social with peer and team. Smiling, laughing, joking. Well engaged. Appears emotionally calm today. Medication Compliance: Yes Side effects from medications: No Attending Groups: Yes Review of Systems Reports behavioral changes Psychiatric: Reports behavioral changes Mental Status Exam Mental Status Exam Patient Appearance: Appropriate Patient Orientation: Person, Place and Time Level of Consciousness: Alert Patient Behavior: Appropriate, Talkative and Cooperative Mood Description: Calm Affect Description: Calm Patient Cognition Impaired: No Ability to Follow Directions: Good Speech Pattern: Spontaneous Speech Memory Description: Remote Impaired, Chcf Impaired and Episodic Impaired Hallucinations: None Delusions: Not Present Thought Process: Intact Thought Content: positive for [place] Judgement: Fair Diagnostics Vital Signs (24Hr): Body Mass Index 44.3 Labs Results: 09/12/20 10:07 08/25/20 20:31 Imaging Radiology Impressions: ITS Impressions Humerus X-Ray 08/26/20 00:00 IMPRESSION: Nondisplaced fracture of the humeral head tuberosity. Humerus X-Ray 09/23/20 11:48 IMPRESSION: Healing fracture greater tuberosity. Medications Medications Current Medications Generic Name Dose Route Start Last Admin Trade Name Freq PRN Reason Stop Dose Admin Ibuprofen 800 mg 08/26/20 01:21 10/27/20 15:53 Ibuprofen 800 Mg Tablet PO 800 mg Q8H PRN Administration Pain, Moderate (Pain Scale 4-6 Lorazepam 0.5 mg 10/28/20 21:00 Lorazepam 0.[address] [facility] Metronidazole 1 appl 08/14/20 09:00 10/28/20 08:48 Metronidazole 0.75 % Gel 45 Gm Tube TOPICAL Not Given BID [facility] Multivitamins/Minerals 1 tab 10/23/20 09:45 10/28/20 08:45 Multivitamin With Minerals Tablet PO 1 tab DAILY LOBITO Administration Patient Own 234 each 10/11/20 16:00 10/11/20 13:33 Medication Invega IM 234 each Sustenna 234 Mg Q30D LOBITO Administration Olanzapine 10 mg 09/22/20 16:24 Olanzapine Odt 10 Mg Tab.Rapdis TRANSLINGU DAILY PRN psychosis, agitation Olanzapine 10 mg 10/02/20 21:00 10/28/20 08:45 Olanzapine Odt 10 Mg Tab.Rapdis TRANSLINGU 10 mg BID LOBITO Administration Olanzapine 10 mg 10/02/20 16:11 Olanzapine 10 Mg Vial IM BID PRN if pt refuses PO per court ord Vitamin D 10 mcg 10/23/20 09:45 10/28/20 08:45 Cholecalciferol (Vitamin D3) 10 Mcg Tablet PO 10 mcg DAILY LOBITO Administration Allergies Allergies Allergy/AdvReac Type Severity Reaction Status Date / Time acetaminophen [From TYLENOL] Allergy Intermediate HIVES Verified 07/22/20 02:13 meperidine [From Demerol] Allergy Unknown Verified 07/22/20 02:10 Assessment & Plan Assessment & Plan (1) Fracture of greater tuberosity of left humerus: Status: Acute Code(s): S42.252A - Displaced fracture of greater tuberosity of left humerus, initial encounter for closed fracture (2) Schizoaffective disorder: Status: Acute Code(s): F25.9 - Schizoaffective disorder, unspecified Assessment and Plan: no changes to current tx plan below Pt has poor insight; intermittently denies psychiatric illness and that court ordered treatment plan/[place] order exists. PLAN Continue current regimen and plans Transition to respite Greater than 50% of the session was spent on counseling and/or coordination of care Reason for contiued inpatient stay Substantial Risk for: harm to self, harm to others, inability to function and rapid decompensation
[2020-10-29] MEDS: OLANZapine ODT 10 MG TAB.RAPDIS TRANSLINGU ×2 (08:51→20:09)
[2020-10-29] MEDS: LORazepam 0.5 MG TABLET PO ×2 (08:51→20:09)
[2020-10-29] MEDS: Cholecalciferol (Vitamin D3) 10 MCG TABLET PO (08:51)
--- NOTE | 2020-10-29 18:07 | HO.PSYCHPN ---
Subjective Subjective Date of Service: 10/29/20 Reason For Visit: psychosis Subjective Notes: Section 8 Healthcare Proxy: No Guardianship: No Medical Problems Affecting Mental Status: No Interim History: Pt reports she is feeling well. She is again interactive with the team and peers. Medication Compliance: Yes Side effects from medications: No Attending Groups: Yes Review of Systems Reports behavioral changes Psychiatric: Reports anxiety and Reports behavioral changes Mental Status Exam Mental Status Exam Patient Appearance: Appropriate Patient Orientation: Person, Place, Time and Situation Level of Consciousness: Awake and Alert Patient Behavior: Appropriate and Talkative Mood Description: Cheerful Affect Description: Constricted Patient Cognition Impaired: Yes Ability to Follow Directions: Good Speech Pattern: Spontaneous Speech and Soft-Spoken Memory Description: Remote Impaired and Episodic Impaired Hallucinations: None Delusions: Not Present Thought Process: Goal Oriented Thought Content: positive for Circum[place] and positive for Goal Oriented Depressive Symptoms: Increased Anxiety and Low Self Esteem Judgement: Fair Diagnostics Vital Signs (24Hr): Body Mass Index 44.3 Labs Results: 09/12/20 10:07 08/25/20 20:31 Imaging Radiology Impressions: ITS Impressions Humerus X-Ray 08/26/20 00:00 IMPRESSION: Nondisplaced fracture of the humeral head tuberosity. Humerus X-Ray 09/23/20 11:48 IMPRESSION: Healing fracture greater tuberosity. Medications Medications Current Medications Generic Name Dose Route Start Last Admin Trade Name Rogelioq PRN Reason Stop Dose Admin Ibuprofen 800 mg 08/26/20 01:21 10/27/20 15:53 Ibuprofen 800 Mg Tablet PO 800 mg Q8H PRN Administration Pain, Moderate (Pain Scale 4-6 Lorazepam 0.5 mg 10/28/20 21:00 10/29/20 08:51 Lorazepam 0.5 Mg Tablet PO 0.5 mg BID LOBITO Administration Metronidazole 1 appl 08/14/20 09:00 10/29/20 08:55 Metronidazole 0.75 % Gel 45 Gm Tube TOPICAL Not Given BID [facility] Multivitamins/Minerals 1 tab 10/23/20 09:45 10/29/20 08:51 Multivitamin With Minerals Tablet PO 1 tab DAILY LOBITO Administration Patient Own 234 each 10/11/20 16:00 10/11/20 13:33 Medication Invega IM 234 each Sustenna 234 Mg Q30D LOBITO Administration Olanzapine 10 mg 09/22/20 16:24 Olanzapine Odt 10 Mg Tab.Rapdis TRANSLINGU DAILY PRN psychosis, agitation Olanzapine 10 mg 10/02/20 21:00 10/29/20 08:51 Olanzapine Odt 10 Mg Tab.Rapdis TRANSLINGU 10 mg BID LOBITO Administration Olanzapine 10 mg 10/02/20 16:11 Olanzapine 10 Mg Vial IM BID PRN if pt refuses PO per court ord Vitamin D 10 mcg 10/23/20 09:45 10/29/20 08:51 Cholecalciferol (Vitamin D3) 10 Mcg Tablet PO 10 mcg DAILY LOBITO Administration Allergies Allergies Allergy/AdvReac Type Severity Reaction Status Date / Time acetaminophen [From TYLENOL] Allergy Intermediate HIVES Verified 07/22/20 02:13 meperidine [From Demerol] Allergy Unknown Verified 07/22/20 02:10 Assessment & Plan Assessment & Plan (1) Fracture of greater tuberosity of left humerus: Status: Acute Code(s): S42.252A - Displaced fracture of greater tuberosity of left humerus, initial encounter for closed fracture (2) Schizoaffective disorder: Status: Acute Code(s): F25.9 - Schizoaffective disorder, unspecified Assessment and Plan: no changes to current tx plan below Pt has poor insight; intermittently denies psychiatric illness and that court ordered treatment plan/[place] order exists. PLAN Continue current regimen and plans Transition to respite Greater than 50% of the session was spent on counseling and/or coordination of care Reason for contiued inpatient stay Substantial Risk for: harm to self, harm to others, inability to function and rapid decompensation
[2020-10-29] MEDS: Ibuprofen 800 MG TABLET PO (20:28)
[2020-10-30] MEDS: Cholecalciferol (Vitamin D3) 10 MCG TABLET PO (08:26)
[2020-10-30] MEDS: LORazepam 0.5 MG TABLET PO ×2 (08:26→21:29)
[2020-10-30] MEDS: OLANZapine ODT 10 MG TAB.RAPDIS TRANSLINGU ×2 (08:26→21:29)
[2020-10-30] MEDS: metroNIDAZOLE 0.75 % Gel 45 GM TUBE 1 APPL TOPICAL (08:56)
[2020-10-30 21:35] VITALS: BP 138/78; PULSE 98; TEMP 36.7
[2020-10-31] MEDS: Cholecalciferol (Vitamin D3) 10 MCG TABLET PO (08:33)
[2020-10-31] MEDS: OLANZapine ODT 10 MG TAB.RAPDIS TRANSLINGU ×2 (08:33→20:04)
[2020-10-31] MEDS: LORazepam 0.5 MG TABLET PO ×2 (08:33→20:04)
--- NOTE | 2020-10-31 09:24 | HO.PSYCHPN ---
Subjective Subjective Date of Service: 10/30/20 Reason For Visit: psychosis Interim History: late entry for 10/30/20 pt lying in bed; says she's good and asks when Nellie Montiel will return. Pt says she is due a coffee for compliance. Otherwise, has no complaints, no requests. Mental Status Exam Mental Status Exam Narrative: Patient Appearance: Appropriate Patient Orientation: Person, Place, Time and Situation Level of Consciousness: Awake and Alert Patient Behavior: Appropriate and Talkative Mood Description: good Affect Description: Constricted Patient Cognition Impaired: Yes Ability to Follow Directions: Good Speech Pattern: Spontaneous Speech and Soft-Spoken Memory Description: Remote Impaired and Episodic Impaired Hallucinations: None Delusions: Not Present Thought Process: Goal Oriented Thought Content: positive for Circumstantial and positive for Goal Oriented Depressive Symptoms: Increased Anxiety and Low Self Esteem Judgement: Fair Diagnostics Vital Signs (24Hr): Vital Signs - 24 hr 10/30/20 21:35 Temperature 98.0 F Pulse Rate 98 Blood Pressure 138/78 Body Mass Index 44.3 Labs Results: 09/12/20 10:07 08/25/20 20:31 Imaging Radiology Impressions: ITS Impressions Humerus X-Ray 08/26/20 00:00 IMPRESSION: Nondisplaced fracture of the humeral head tuberosity. Humerus X-Ray 09/23/20 11:48 IMPRESSION: Healing fracture greater tuberosity. Medications Medications Current Medications Generic Name Dose Route Start Last Admin Trade Name Freq PRN Reason Stop Dose Admin Ibuprofen 800 mg 08/26/20 01:21 10/29/20 20:28 Ibuprofen 800 Mg Tablet PO 800 mg Q8H PRN Administration Pain, Moderate (Pain Scale 4-6 Lorazepam 0.5 mg 10/28/20 21:00 10/31/20 08:33 Lorazepam 0.5 Mg Tablet PO 0.5 mg BID LOBITO Administration Metronidazole 1 appl 08/14/20 09:00 10/30/20 21:30 Metronidazole 0.75 % Gel 45 Gm Tube TOPICAL Not Given BID [facility] Multivitamins/Minerals 1 tab 10/23/20 09:45 10/31/20 08:33 Multivitamin With Minerals Tablet PO 1 tab DAILY LOBITO Administration Patient Own 234 each 10/11/20 16:00 10/11/20 13:33 Medication Invega IM 234 each Sustenna 234 Mg Q30D LOBITO Administration Olanzapine 10 mg 09/22/20 16:24 Olanzapine Odt 10 Mg Tab.Rapdis TRANSLINGU DAILY PRN psychosis, agitation Olanzapine 10 mg 10/02/20 21:00 10/31/20 08:33 Olanzapine Odt 10 Mg Tab.Rapdis TRANSLINGU 10 mg BID LOBITO Administration Olanzapine 10 mg 10/02/20 16:11 Olanzapine 10 Mg Vial IM BID PRN if pt refuses PO per court ord Vitamin D 10 mcg 10/23/20 09:45 10/31/20 08:33 Cholecalciferol (Vitamin D3) 10 Mcg Tablet PO 10 mcg DAILY LOBITO Administration Allergies Allergies Allergy/AdvReac Type Severity Reaction Status Date / Time acetaminophen [From TYLENOL] Allergy Intermediate HIVES Verified 07/22/20 02:13 meperidine [From Demerol] Allergy Unknown Verified 07/22/20 02:10 Assessment & Plan Assessment & Plan (1) Fracture of greater tuberosity of left humerus: Status: Acute Code(s): S42.252A - Displaced fracture of greater tuberosity of left humerus, initial encounter for closed fracture (2) Schizoaffective disorder: Status: Acute Code(s): F25.9 - Schizoaffective disorder, unspecified Assessment and Plan: no changes to current tx plan below Pt has poor insight; intermittently denies psychiatric illness and that court ordered treatment plan/[place] order exists. -discussed dispo with SW who reports patient remains with impaired insight saying she continues to refuse to meet with outpatient psychiatrist upon discharge, making her a quick return to inpatient unit. It is currently questionable whether she will be successful in a fci and whether she needs correction inpatient facility. -VIBRA Consult placed -pt continues to refuse BP meds, though BP WNL PLAN Invega Sustenna 234 mg given on 10/11/20 Pt refuses labs and EKG; she understands it's function and risk of not getting but is not concerned and says there's nothing wrong with my heart. That said, most recent EKG is with a just barely prolonged Qtc; pt has no other cardiac history and Torsades is rare; here, benefit outweighs the risk as pt has stabilized considerably on this medication. VIBRA Consult placed Otherwise continue with primary tx plan: Pt refuses immobilizer sling-discontinue. Follow up [id number] fracture greater tuberosity -Discontinue 1:1. 15 minute safety checks -Decrease oxycodone to q 24 hours prn-discontinue 10/09/20. Pt will have used the medication for 4 weeks effective 09/25/20. Variable improvement with increase in lability, irritability and anger.The course is up and down. Pt exhibiting more mood sx currently however, po compliance is very erratic so difficult to treat effectively. ? ECT eval. By history, family reports atypical INFANTE takes about 3 months of treatment. Today, asking about discharge Olanzapine 10 mg bid. Olanzapine 10 mg daily prn. Will trial, if ineffective ?Vraylar, however it is only in PO form. Pt declines. Discussed lamictal trial, and antihypertensive eval for new regime. She refuses. Pt accepting of plan for respite, residential at this time, unclear if this will be an option. Discussed LTC referral with team. Treatment summary completed. Greater than 50% of the session was spent on counseling and/or coordination of care Reason for contiued inpatient stay Substantial Risk for: rapid decompensation
[2020-10-31] MEDS: metroNIDAZOLE 0.75 % Gel 45 GM TUBE 1 APPL TOPICAL (10:54)
[2020-10-31 18:45] VITALS: RESP 16
--- NOTE | 2020-10-31 21:12 | HO.PSYCHPN ---
Subjective Subjective Date of Service: 11/01/20 Reason For Visit: psychosis Subjective Notes: Section 8 Healthcare Proxy: No Guardianship: No Medical Problems Affecting Mental Status: No Interim History: Pt talking about her work on [employer], her treatment experience and moving to her next step of respite. She discussed the need for an antidepressant and is ready to begin. By history she reporty Negraalta has worked very well at low doses. Medication Compliance: Yes Side effects from medications: No Attending Groups: Yes Review of Systems Reports behavioral changes Psychiatric: Reports behavioral changes and Reports depression Mental Status Exam Mental Status Exam Patient Appearance: Appropriate Patient Orientation: Person, Place, Time and Situation Level of Consciousness: Awake and Alert Patient Behavior: Appropriate, Talkative and Cooperative Mood Description: Depressed Affect Description: Flat Patient Cognition Impaired: Yes Ability to Follow Directions: Good Speech Pattern: Spontaneous Speech Memory Description: Remote Impaired and Episodic Impaired Hallucinations: None Delusions: Not Present Thought Process: Rumination Thought Content: positive for Circumstantial and positive for Suicidal Ideation (denies) Depressive Symptoms: Diff. Making Decisions, Hopelessness, Unhappiness, Low Self Esteem and Difficulty Concentrating Judgement: Fair Diagnostics Vital Signs (24Hr): Vital Signs - 24 hr 10/30/20 21:35 10/31/20 18:45 Temperature 98.0 F Pulse Rate 98 Respiratory Rate 16 Blood Pressure 138/78 Body Mass Index 44.3 Labs Results: 09/12/20 10:07 08/25/20 20:31 Imaging Radiology Impressions: ITS Impressions Humerus X-Ray 08/26/20 00:00 IMPRESSION: Nondisplaced fracture of the humeral head tuberosity. Humerus X-Ray 09/23/20 11:48 IMPRESSION: Healing fracture greater tuberosity. Medications Medications Current Medications Generic Name Dose Route Start Last Admin Trade Name Freq PRN Reason Stop Dose Admin Duloxetine HCl 20 mg 11/01/20 09:00 Duloxetine Hcl 20 Mg Capsule. PO DAILY LOBITO Ibuprofen 800 mg 08/26/20 01:21 10/29/20 20:28 Ibuprofen 800 Mg Tablet PO 800 mg Q8H PRN Administration Pain, Moderate (Pain Scale 4-6 Lorazepam 0.5 mg 10/28/20 21:00 10/31/20 20:04 Lorazepam 0.5 Mg Tablet PO 0.5 mg BID LOBITO Administration Metronidazole 1 appl 08/14/20 09:00 10/31/20 20:09 Metronidazole 0.75 % Gel 45 Gm Tube TOPICAL Not Given BID [facility] Multivitamins/Minerals 1 tab 10/23/20 09:45 10/31/20 08:33 Multivitamin With Minerals Tablet PO 1 tab DAILY LOBITO Administration Patient Own 234 each 10/11/20 16:00 10/11/20 13:33 Medication Invega IM 234 each Sustenna 234 Mg Q30D LOBITO Administration Olanzapine 10 mg 09/22/20 16:24 Olanzapine Odt 10 Mg Tab.Rapdis TRANSLINGU DAILY PRN psychosis, agitation Olanzapine 10 mg 10/02/20 21:00 10/31/20 20:04 Olanzapine Odt 10 Mg Tab.Rapdis TRANSLINGU 10 mg BID LOBITO Administration Olanzapine 10 mg 10/02/20 16:11 Olanzapine 10 Mg Vial IM BID PRN if pt refuses PO per court ord Vitamin D 10 mcg 10/23/20 09:45 10/31/20 08:33 Cholecalciferol (Vitamin D3) 10 Mcg Tablet PO 10 mcg DAILY LOBITO Administration Allergies Allergies Allergy/AdvReac Type Severity Reaction Status Date / Time acetaminophen [From TYLENOL] Allergy Intermediate HIVES Verified 07/22/20 02:13 meperidine [From Demerol] Allergy Unknown Verified 07/22/20 02:10 Assessment & Plan Assessment & Plan (1) Fracture of greater tuberosity of left humerus: Status: Acute Code(s): S42.252A - Displaced fracture of greater tuberosity of left humerus, initial encounter for closed fracture (2) Schizoaffective disorder: Status: Acute Code(s): F25.9 - Schizoaffective disorder, unspecified Assessment and Plan: Cymbalta 20 mg daily Re-consult ortho for follow up s/p fracture Preparing for transition to respite. Greater than 50% of the session was spent on counseling and/or coordination of care Reason for contiued inpatient stay Substantial Risk for: harm to self, harm to others, inability to function, rapid decompensation and med/psych decompensation
[2020-11-01 06:00] VITALS: BP 123/82; PULSE 87; TEMP 36.1
[2020-11-01] MEDS: DULoxetine HCl 20 MG CAPSULE.DR PO (08:34)
[2020-11-01] MEDS: OLANZapine ODT 10 MG TAB.RAPDIS TRANSLINGU ×2 (08:34→20:03)
[2020-11-01] MEDS: Cholecalciferol (Vitamin D3) 10 MCG TABLET PO (08:34)
[2020-11-01] MEDS: metroNIDAZOLE 0.75 % Gel 45 GM TUBE 1 APPL TOPICAL (08:35)
[2020-11-01] MEDS: LORazepam 0.5 MG TABLET PO ×2 (08:35→20:03)
--- NOTE | 2020-11-01 12:52 | HO.PSYCHPN ---
Subjective Subjective Date of Service: 11/01/20 Reason For Visit: psychosis Subjective Notes: Section 8 Healthcare Proxy: No Guardianship: No Medical Problems Affecting Mental Status: No Interim History: Discharge to respite on 11/02. Pt feeling excited about this and feeling ready to move forward. States I will call you to let you know how I am, OK? Medication Compliance: Yes Side effects from medications: No Attending Groups: Yes Review of Systems Review of Systems Yes all other systems are reviewed and are negative (pt refuses diagnostics) Psychiatric: Reports no additional psychiatric complaints Mental Status Exam Mental Status Exam Patient Appearance: Appropriate Patient Orientation: Person, Place, Time and Situation Level of Consciousness: Awake and Alert Patient Behavior: Appropriate, Talkative and Cooperative Mood Description: Calm and Cheerful Affect Description: Calm Patient Cognition Impaired: No Ability to Follow Directions: Good Speech Pattern: Spontaneous Speech Memory Description: Remote Impaired and Episodic Impaired Hallucinations: None Delusions: Not Present Thought Process: Intact Thought Content: positive for Intact Depressive Symptoms: Low Self Esteem Judgement: Good Diagnostics Vital Signs (24Hr): Vital Signs - 24 hr 10/31/20 18:45 11/01/20 06:00 Temperature 96.9 F Pulse Rate 87 Respiratory Rate 16 Blood Pressure 123/82 Body Mass Index 44.3 Labs Results: 09/12/20 10:07 08/25/20 20:31 Imaging Radiology Impressions: ITS Impressions Humerus X-Ray 08/26/20 00:00 IMPRESSION: Nondisplaced fracture of the humeral head tuberosity. Humerus X-Ray 09/23/20 11:48 IMPRESSION: Healing fracture greater tuberosity. Medications Medications Current Medications Generic Name Dose Route Start Last Admin Trade Name Rogelioq PRN Reason Stop Dose Admin Duloxetine HCl 20 mg 11/01/20 09:00 11/01/20 08:34 Duloxetine Hcl 20 Mg Capsule. PO 20 mg DAILY LOBITO Administration Ibuprofen 800 mg 08/26/20 01:21 10/29/20 20:28 Ibuprofen 800 Mg Tablet PO 800 mg Q8H PRN Administration Pain, Moderate (Pain Scale 4-6 Lorazepam 0.5 mg 10/28/20 21:00 11/01/20 08:35 Lorazepam 0.5 Mg Tablet PO 0.5 mg BID LOBITO Administration Metronidazole 1 appl 08/14/20 09:00 11/01/20 08:35 Metronidazole 0.75 % Gel 45 Gm Tube TOPICAL 1 appl BID LOBITO Administration Multivitamins/Minerals 1 tab 10/23/20 09:45 11/01/20 08:34 Multivitamin With Minerals Tablet PO 1 tab DAILY LOBITO Administration Patient Own 234 each 10/11/20 16:00 10/11/20 13:33 Medication Invega IM 234 each Sustenna 234 Mg Q30D LOBITO Administration Olanzapine 10 mg 09/22/20 16:24 Olanzapine Odt 10 Mg Tab.Rapdis TRANSLINGU DAILY PRN psychosis, agitation Olanzapine 10 mg 10/02/20 21:00 11/01/20 08:34 Olanzapine Odt 10 Mg Tab.Rapdis TRANSLINGU 10 mg BID LOBITO Administration Olanzapine 10 mg 10/02/20 16:11 Olanzapine 10 Mg Vial IM BID PRN if pt refuses PO per court ord Vitamin D 10 mcg 10/23/20 09:45 11/01/20 08:34 Cholecalciferol (Vitamin D3) 10 Mcg Tablet PO 10 mcg DAILY LOBITO Administration Allergies Allergies Allergy/AdvReac Type Severity Reaction Status Date / Time acetaminophen [From TYLENOL] Allergy Intermediate HIVES Verified 07/22/20 02:13 meperidine [From Demerol] Allergy Unknown Verified 07/22/20 02:10 Assessment & Plan Assessment & Plan (1) Fracture of greater tuberosity of left humerus: Status: Acute Code(s): S42.252A - Displaced fracture of greater tuberosity of left humerus, initial encounter for closed fracture (2) Schizoaffective disorder: Status: Acute Code(s): F25.9 - Schizoaffective disorder, unspecified Assessment and Plan: Cymbalta 20 mg daily tolerated for first dosage. Re-consult ortho for follow up s/p fracture- will need OP scheduling Discharge 11/02 to Respite. COVID-19 testing per respite request. Greater than 50% of the session was spent on counseling and/or coordination of care Reason for contiued inpatient stay Substantial Risk for: stable for discharge
[2020-11-01 19:39] LABS: COVID-19 Test Negative (Negative)
[2020-11-01] MEDS: Ibuprofen 800 MG TABLET PO (20:45)
[2020-11-02] MEDS: Cholecalciferol (Vitamin D3) 10 MCG TABLET PO (08:36)
[2020-11-02] MEDS: DULoxetine HCl 20 MG CAPSULE.DR PO (08:36)
[2020-11-02] MEDS: LORazepam 0.5 MG TABLET PO (08:36)
[2020-11-02] MEDS: OLANZapine ODT 10 MG TAB.RAPDIS TRANSLINGU (08:37)
[2020-11-02] MEDS: metroNIDAZOLE 0.75 % Gel 45 GM TUBE 1 APPL TOPICAL (08:40)
[2020-11-02 08:48] VITALS: BP 112/57; PULSE 104
[2020-11-02 10:14] VITALS: BMI 44.6
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
== END 2020-11-02 12:52 | DRG 885 ==
LOC: HO.ED 07-22 16:36 → HO.PM5 07-22 16:38
PROVIDERS: Nurse Practitioner Primary Care; Psychiatry & Neurology Psychiatry; Admitting Provider Psychiatry & Neurology Psychiatry; Emergency Provider Emergency Medicine Emergency Medical Services; Visit Provider Clinical Nurse Specialist Psychiatric/Mental Health, Adult
DX: F25.9 Schizoaffective disorder, unspecified (principal); S42.252A Displaced fracture of greater tuberosity of left humerus, initial encounter for closed fracture; Z68.41 Body mass index [BMI] 40.0-44.9, adult; R45.851 Suicidal ideations; E66.9 Obesity, unspecified; Z20.822 Contact with and (suspected) exposure to COVID-19; F43.10 Post-traumatic stress disorder, unspecified; W18.30XA Fall on same level, unspecified, initial encounter; Y93.89 Activity, other specified; Y92.232 Corridor of hospital as the place of occurrence of the external cause; Y99.9 Unspecified external cause status; Z79.899 Other long term (current) drug therapy
CPT/HCPCS: 36415; 73060; 80053; 80061; 80320; 82306; 82607; 82746; 83036; 83735; 84443; 84702; 85025; 87635; 93005; 99232; 99285; J0515; J2060; J2426

== ENCOUNTER 2020-11-15 10:08 | Outpatient (REF) | payer MEDICARE, MEDICAID, SELFPAY ==
--- NOTE | ~2020-11-15 | XR_ITS ---
EXAMINATION: XR SHOULDER, LEFT CLINICAL INFORMATION: Pain left shoulder. COMPARISON: None TECHNIQUE: AP external rotation, Grashey, scapular Y, and axillary views of the left shoulder. FINDINGS: There is a minimally displaced right greater tuberosity comminuted fracture. No dislocation. No gross additional bony abnormality. The right AC joint space is maintained normal. XR/XR shoulder LT min 2V IMPRESSION: Comminuted displaced fracture right greater tuberosity. No dislocation seen.
== END 2020-11-15 10:09 | disposition home or self-care (01) ==
LOC: HO.XRAY 10:08
PROVIDERS: PCP Internal Medicine; Visit Provider Physician Assistant
DX: M25.512 Pain in left shoulder (principal); S42.251D Displaced fracture of greater tuberosity of right humerus, subsequent encounter for fracture with routine healing
CPT/HCPCS: 73030; 99202

== ENCOUNTER 2020-12-27 06:18 | Outpatient (REF) | payer MEDICARE, MEDICAID, SELFPAY | END 2020-12-27 06:19 | disposition home or self-care (01) | LOC: HO.HOSX 06:18 | PROVIDERS: Visit Provider Physician Assistant | DX: Z13.89 Encounter for screening for other disorder (principal) ==

== ENCOUNTER 2021-07-06 13:00 | Outpatient (RCR) | payer OTHER, MEDICARE, MEDICAID, SELFPAY ==
--- NOTE | 2021-08-09 08:51 | MHC.PT.DC ---
[facility] [place] Office [place] Office [place] Office [address] Israel Morocho [address] [phone] F: [phone] F: [phone] F: [phone] F: [phone] Physical Therapy Discharge Report Diagnosis: R shoulder pain Date of Surgery: Date of Evaluation: 06/06/21 Date of Discharge: 08/09/21 Treatments to Date: 7 Cancellations to Date: 2 No Shows to Date: 0 Discharge Status: Independent with HEP Visit Non-compliance Discharge Summary: Pt did not f/u with further visits and is now d/c at this time. Electronically signed by: Ivy Lewis PT Please sign and return to therapist. Thank you for your referral.
== END 2021-08-09 08:52 | disposition home or self-care (01) ==
LOC: HO.PT 13:00
PROVIDERS: PCP Internal Medicine; Visit Provider Nurse Practitioner Family
DX: M25.511 Pain in right shoulder (principal)
CPT/HCPCS: 97110; 97140; 97161

== ENCOUNTER 2021-12-19 12:06 | Outpatient (REF) | payer MEDICARE, MEDICAID, SELFPAY ==
[2021-12-19 13:38] LABS: Alanine Aminotransferase 53 U/L (0-31); Albumin Level 4.2 g/dL (3.5-5.0); Alkaline Phosphatase 121 U/L (39-117); Anion Gap 15 (12-20); Aspartate Amino Transferase 30 U/L (5-31); Bilirubin Total 0.5 mg/dL (0.0-1.0); Blood Urea Nitrogen 11 mg/dL (9-16); Calcium 9.3 mg/dL (8.4-10.2); Carbon Dioxide 26 mmol/L (22-29); Chloride 104 mmol/L (96-108); Cholesterol 197 mg/dL; Estimated Glomerular Filt Rate > 60; Glucose Random 188 mg/dL (60-115); HDL Cholesterol 39 mg/dL; LDL Cholesterol Calculated 117 mg/dl; Sodium 140 mmol/L (135-145); Total Protein 6.6 g/dL (6.5-8.0); Triglycerides 208 mg/dL
[2021-12-19 14:18] LABS: Vitamin B12 653 pg/mL (200-900)
== END 2021-12-19 12:07 | disposition home or self-care (01) ==
LOC: HO.LAB 12:06
PROVIDERS: PCP Internal Medicine; Visit Provider Internal Medicine
DX: E11.65 Type 2 diabetes mellitus with hyperglycemia (principal); E78.00 Pure hypercholesterolemia, unspecified
CPT/HCPCS: 36415; 80053; 80061; 82607; 82746; 84439; 84443

== ENCOUNTER 2022-07-10 11:16 | Outpatient (REF) | payer MEDICARE, MEDICAID, SELFPAY | END 2022-07-10 11:17 | disposition home or self-care (01) | LOC: HO.LAB 11:16 | PROVIDERS: PCP Internal Medicine; Visit Provider Advanced Practice Midwife | DX: Z13.89 Encounter for screening for other disorder (principal) | CPT/HCPCS: 99202 ==

== ENCOUNTER 2022-07-10 11:47 | Outpatient (REF) | payer MEDICARE, MEDICAID, SELFPAY ==
[2022-07-10 16:30] LABS: CT PCR NOT DETECTED (Not Detect.); NG PCR NOT DETECTED (Not Detect.)
[2022-07-11 11:14] LABS: BV Int Neg Control Negative (Negative); BV Int Pos Control Positive (Positive)
[2022-07-13 03:48] LABS: HPV mRNA E6/E7 rflx Not Detected (Not Detected)
== END 2022-07-10 11:48 | disposition home or self-care (01) ==
LOC: HO.LNP 11:47
PROVIDERS: Visit Provider Advanced Practice Midwife
DX: N95.0 Postmenopausal bleeding (principal)
CPT/HCPCS: 0353U; 87480; 87510; 87624; 87660; 88142; 99202

== ENCOUNTER 2022-07-26 10:36 | Outpatient (REF) | payer MEDICARE, MEDICAID, SELFPAY ==
--- NOTE | ~2022-07-26 | US_ITS ---
EXAMINATION: US PELVIS CLINICAL INFORMATION: Postmenopausal bleeding. COMPARISON: None TECHNIQUE: Ultrasound of the pelvis is performed using both transabdominal technique. The patient declined transvaginal imaging. FINDINGS: Uterus: The uterus is anteverted and anteflexed. The uterus measures 8.4 x 3.3 x 4.1 cm. The double wall endometrial thickness is 0.3 mm. The uterus is smooth in contour and has normal myometrial echogenicity. No visible fibroid. Adnexa: Both ovaries are nonvisualized. There is normal color flow to the adnexa. There is no ovarian torsion. There is no pelvic ascites or fluid collection. US/US pelvic and transvaginal IMPRESSION: The bilateral ovaries are nonvisualized. Otherwise, unremarkable transabdominal ultrasound examination of the pelvis.
== END 2022-07-26 10:37 | disposition home or self-care (01) ==
LOC: HO.US 10:36
PROVIDERS: PCP Internal Medicine; Visit Provider Advanced Practice Midwife
DX: N95.0 Postmenopausal bleeding (principal)
CPT/HCPCS: 76830; 76856

== ENCOUNTER → 2022-08-20 11:37 | Outpatient (BNVA) | payer MEDICARE, MEDICAID, SELFPAY | PROVIDERS: PCP Internal Medicine; Visit Provider Advanced Practice Midwife | DX: N95.0 Postmenopausal bleeding (principal); Z71.2 Person consulting for explanation of examination or test findings | CPT/HCPCS: 99212 ==

== ENCOUNTER 2023-01-31 16:17 | Outpatient (REF) | payer MEDICARE, MEDICAID, SELFPAY ==
[2023-01-31 17:39] LABS: Appearance Urine Turbid; Color Urine Dark Yellow; Glucose Urine UA 250 mg/dL (Negative); Leukocyte Esterase Urine Negative (Negative); Nitrite Urine Negative (Negative); PH 5.5 (5.0-9.0); Specific Gravity - Urine >= 1.030 (1.005-1.025); UMIC TRIGGER UACC YES; Urine Blood Negative (Negative); Urine Ketones Trace mg/dL (Negative); Urine Protein 300 (3+) mg/dL (Neg-Trace)
[2023-01-31 17:45] LABS: Bacteria Urine 2+ (None Seen); Hyaline Casts Urine 0-2 /LPF (0-2); RBC Urine 0-2 /HPF (0-2); WBC Urine 0-5 /HPF (0-5)
== END 2023-01-31 16:18 | disposition home or self-care (01) ==
LOC: HO.LAB 16:17
PROVIDERS: PCP Internal Medicine; Visit Provider Internal Medicine
DX: R39.9 Unspecified symptoms and signs involving the genitourinary system (principal)
CPT/HCPCS: 81001

== ENCOUNTER 2023-06-25 16:26 | Inpatient (IN) | payer MEDICARE, MEDICAID, SELFPAY ==
[2023-06-25 16:34] VITALS: BP 140/43; BP 142/69; PULSE 108; PULSE 119; RESP 18; TEMP 36.5; O2SAT 98; O2SAT 99; BMI 33.5
[2023-06-25 18:03] LABS: MANUAL DIFF FLAG NO
[2023-06-25 18:22] LABS: Alanine Aminotransferase 39 U/L (0-31); Albumin Level 4.2 g/dL (3.5-5.0); Alkaline Phosphatase 95 U/L (39-117); Anion Gap 12 (12-20); Aspartate Amino Transferase 21 U/L (5-31); Bilirubin Total 0.4 mg/dL (0.0-1.0); Blood Urea Nitrogen 13 mg/dL (9-16); Calcium 9.5 mg/dL (8.4-10.2); Carbon Dioxide 27 mmol/L (22-29); Chloride 106 mmol/L (96-108); Creatinine Clr Calc Pharmacy 78.2; Estimated Glomerular Filt Rate > 60; Ethanol < 10 mg/dL; Glucose Random 133 mg/dL (60-115); IDNOW Serial# 6674DD1D; Potassium 4.1 mmol/L (3.3-5.1); Sodium 141 mmol/L (135-145); Total Protein 6.8 g/dL (6.5-8.0)
[2023-06-25 18:23] LABS: COVID-19 Test Negative (Negative)
[2023-06-25 18:31] LABS: Basophils Absolute Auto 0.1 X10*3/uL (0.0-0.2); Basophils Percent Auto 0.7 % (0-2); Eosinophils Absolute Auto 0.1 X10*3/uL (0.0-0.4); Eosinophils Percent Auto 0.9 % (0-4); Hemoglobin 16.2 g/dl (12.0-16.0); Imm Gran Abs Auto 0.15 X10*3/uL (0.00-0.03); Lymphocytes Absolute Auto 2.7 X10*3/uL (1.2-4.9); Lymphocytes Percent Auto 18.1 % (20-40); Mean Corpuscular HGB Conc 33.8 g/dl (31.0-35.0); Mean Corpuscular Hemoglobin 32.1 pg (27.0-33.0); Monocytes Absolute Auto 0.8 X10*3/uL (0.1-1.2); Monocytes Percent Auto 5.1 % (2-11); Neutrophils Percent Auto 74.2 % (45-73); Platelet Count 267 X10*3/uL (160-400); Red Blood Count 5.05 X10*6/uL (4.20-5.50); Red Cell Distribution Width 11.9 % (11.0-16.0); White Blood Count 14.8 X10*3/uL (4.8-10.8)
--- NOTE | 2023-06-25 19:07 | ED.PSYCH ---
HPI - Psych General Chief Complaint: Psychiatric Symptoms Stated Complaint: SECTION 12 FAILURE TO THRIVE Time Seen by Provider: 06/25/23 16:33 Source: patient Mode of arrival: EMS Limitations: no limitations History of Present Illness HPI Narrative: Patient comes to the emergency room from a custodial. Patient was seen already by [facility] [place]. EMS reports that the staff at the patient's custodial reports increased delusions, inability to do activities of daily living, sealing other people's belongings. Patient here in the ED states that she feels well, has no complaints, there is nothing wrong with her other than having pain all over and needing coffee to cure her pains. Denies SI or HI Related Data Home Medications Medication Instructions Recorded Confirmed Multi-Vitamin W/Extra C 1 tab PO DAILY 06/25/23 06/25/23 albuterol sulfate 90 mcg/actuation 2 puff inhalation DIRECTED PRN 06/25/23 06/25/23 aerosol inhaler (Ventolin HFA) Wheezing cholecalciferol (vitamin D3) 100 400 unit PO DAILY 06/25/23 06/25/23 mcg (4,000 unit) capsule duloxetine 20 mg capsule,delayed 40 mg PO DAILY 06/25/23 06/25/23 release (Cymbalta) metformin 500 mg tablet 500 mg PO BID 06/25/23 06/25/23 metronidazole 0.75 % topical gel 1 appl topical DAILY 06/25/23 06/25/23 nicotine (polacrilex) 2 mg buccal 2 mg buccal Q2-4H PRN Nicotine 06/25/23 06/25/23 lozenge Cravings olanzapine 10 mg disintegrating 10 mg PO DAILY PRN Psychosis 06/25/23 06/25/23 tablet (Zyprexa Zydis) olanzapine 20 mg disintegrating 20 mg PO DAILY 06/25/23 06/25/23 tablet (Zyprexa Zydis) Previous Rx's Medication Instructions Recorded blood-glucose meter ([employer] #1 ea 02/16/21 Autocode Meter kit) lancets 28 gauge ([employer] Lancets) #100 ea 06/04/21 blood sugar diagnostic ([place] [employer] #100 boxes 06/18/21 Coding strips) Allergies Allergy/AdvReac Type Severity Reaction Status Date / Time acetaminophen [From TYLENOL] Allergy Intermediate HIVES Verified 08/28/22 09:48 meperidine [From Demerol] Allergy Unknown Verified 08/28/22 09:48 Review of Systems Review of Systems: Constitutional : No Weight loss, No Fever, No Chills, No Night Sweats, No Fatigue, No Malaise ENT/Mouth : No Hearing loss, No Ear Pain, No Nasal Congestion, No Sinus Pain, No Hoarseness, No sore throat, No Rhinorrhea, No Swallowing Difficulty Eyes: No Eye Pain, No Swelling, No Redness, No Foreign Body, No Discharge, No Vision Changes Cardiovascular : No Chest Pain, No SOB, No Dyspnea on Exertion, No Orthopnea, No Edema, No Palpitations Respiratory : No Cough, No Sputum, No Wheezing, No Smoke Exposure, No Dyspnea Gastrointestinal : No Nausea, No Vomiting, No Diarrhea, No Constipation, No abdominal Pain, No Hematochezia, No Melena Genitourinary : no irregular bleeding, No Dysuria, No Urinary Frequency, No Hematuria, No Urinary Incontinence, No Urgency, No Flank Pain, No Urinary Flow Changes, No Hesitancy Musculoskeletal : No joint pain, No Myalgias, No Joint Swelling Skin : No Skin Lesions, No rash Neuro : No Weakness, No Numbness, No Paresthesias, No Loss of Consciousness, No Dizziness, No Headache Psych : No Anxiety/Panic, No Depression, No SI/HI/AH/VH, No Social Issues, Heme/Lymph: No Bruising, No Bleeding,No Lymphadenopathy Endocrine : No Polyuria, No Polydipsia, No Temperature Intolerance [facility] Past Medical History Medical History Hypertension Obesity Postmenopausal Postmenopausal bleeding Rosacea, acne Schizoaffective disorder Surgical History Delivery by section Social History Social History Household Members: Other Household Members Other:: Meño Langston, Jhony Gracia Housing: Assisted Living Facility Do you presently have visiting nurse or other home services: No Unable to assess alcohol history related to: Unknown Alcohol intake: current Alcohol intake frequency: does not drink Comment: patient asleep at start of shift Patient Tobacco Use Status: Current everyday Tobacco user Tobacco use type: Cigarette Cigarettes Per Day: 5 e-Cigarette/Vaping Use: Never Used Second Hand Smoke Exposure: No Use of substances other than those prescribed or required for medical reasons: No Advance Directives: Yes Advance Directives on File: Yes Advance Directives Date on File: 11/06/20 service: No Current occupational status: disabled Sexual orientation: Straight/Heterosexual Cognitive needs: No Hearing needs: No Vision needs: No Physical Exam Vital Signs: Vital Signs: Last Vital Signs Temp 97.7 F 06/25/23 16:34 Pulse 108 H 06/25/23 16:34 Resp 18 06/25/23 16:34 BP 142/69 H 06/25/23 16:34 Pulse Ox 98 06/25/23 16:34 O2 Del Method Room Air 06/25/23 16:34 BMI result Body Mass Index 33.5 Const: Other: Appearance: Alert. No acute distress. Eyes: Pupils equal, round and reactive to light. ENT: Pharynx normal. Neck: Normal inspection. Neck supple. No lymph nodes noted. No crepitus CVS: Normal heart rate and rhythm. Pulses normal. Normal S1 and S2 Respiratory: No respiratory distress. Breath sounds normal. No Wheezing. No rales Abdomen: Soft and nontender. No rigidity. No distention. Skin: Skin warm and dry. Normal skin color. Normal skin turgor. Extremities: No lower extremity edema. No Lacerations. No Rash Neuro: No motor deficit. No sensory deficit. Moving all extremities. No slurred speech. CN 2 through 12 grossly intact Psych: calm, cooperative, normal affect Course Course Course Narrative: - Medical Decision Making Medical Decision Making [facility] Narrative: -my interpretation of labs: Chemistry no electrolyte abnormalities, chronic leukocytosis, alcohol level negative. Patient has not provided a urine sample yet. -care team consult pending -patient is on a Section 12 started by [facility] [place] -Physician observation started at 20:46 Differential Diagnosis Differential Diagnoses: The differential diagnosis associated with the presentation includes (Schizophrenia, schizoaffective disorder, decompensation) Admission/Observation Consideration of admission/observation: Escalation of care including admission/observation considered (Patient will likely be admitted to the psychiatric unit. Consult pending) Lab Data [facility] Lab Attestation statement: I reviewed the patient's lab results. 06/25/23 17:59 06/25/23 17:59 Labs: Lab Results 06/25/23 Range/Units 17:59 WBC 14.8 H (4.8-10.8) X10*3/uL RBC 5.05 (4.20-5.50) X10*6/uL Hgb 16.2 H (12.0-16.0) g/dl Hct 48.0 H (37.0-47.0) % MCV 95.0 (80.0-98.0) fL MCH 32.1 (27.0-33.0) pg MCHC 33.8 (31.0-35.0) g/dl RDW 11.9 (11.0-16.0) % Plt Count 267 (160-400) X10*3/uL MPV 10.0 (9.4-12.3) fL Immature Gran % (Auto) 1.0 H (0.0-0.4) % Neut % (Auto) 74.2 H (45-73) % Lymph % (Auto) 18.1 L (20-40) % [place] % (Auto) 5.1 (2-11) % Eos % (Auto) 0.9 (0-4) % Baso % (Auto) 0.7 (0-2) % Lymph # (Auto) 2.7 (1.2-4.9) X10*3/uL [place] # (Auto) 0.8 (0.1-1.2) X10*3/uL Eos # (Auto) 0.1 (0.0-0.4) X10*3/uL Baso # (Auto) 0.1 (0.0-0.2) X10*3/uL Abs Immat Gran (auto) 0.15 H (0.00-0.03) X10*3/uL Absolute Neuts (auto) 11.0 H (2.0-8.3) x10*3/uL Absolute Nucleated RBC 0.000 (0.0-0.012) X10*3/uL Nucleated RBC % (auto) 0.0 (0.0-0.2) /100WBC Sodium 141 (135-145) mmol/L Potassium 4.1 (3.3-5.1) mmol/L Chloride 106 (96-108) mmol/L Carbon Dioxide 27 (22-29) mmol/L Anion Gap 12 (12-20) BUN 13 (9-16) mg/dL Creatinine 0.83 (0.5-1.4) mg/dL Estim Creat Clear Calc 78.2 Estimated GFR > 60 Random Glucose 133 H (60-115) mg/dL Calcium 9.5 (8.4-10.2) mg/dL Total Bilirubin 0.4 (0.0-1.0) mg/dL AST 21 (5-31) U/L ALT 39 H (0-31) U/L Alkaline Phosphatase 95 (39-117) U/L Total Protein 6.8 (6.5-8.0) g/dL Albumin 4.2 (3.5-5.0) g/dL Ethyl Alcohol < 10 mg/dL COVID-19 (CAS) Negative (Negative) COVID-19 Clin Com See Note Critical Care Time Critical Care Time Critical Care Time: Yes Total Critical Care Time: 30 Attestation: I have personally provided critical care time. Time includes review of lab data, radiology results, discussion with consultants, and monitoring for potential decompensation. Intervention performed as documented. Discharge Plan Discharge Clinical Impression: Schizoaffective disorder Patient Disposition: Still a Patient Prescriptions: No Action (DME) blood-glucose meter [[employer] Autocode Meter] Kit See Rx Instructions .Route Qty: 1 0RF Rx Instructions: As directed metformin 500 mg Tablet 500 mg PO BID olanzapine [Zyprexa Zydis] 20 mg Tablet,Disintegrating 20 mg PO DAILY olanzapine [Zyprexa Zydis] 10 mg Tablet,Disintegrating 10 mg PO DAILY PRN (Reason: Psychosis) albuterol sulfate [Ventolin HFA] 90 mcg/actuation Hfa Aerosol Inhaler 2 puff INHALATION DIRECTED PRN (Reason: Wheezing) metronidazole [Metrogel] 0.75 % Gel 1 appl TOPICAL DAILY nicotine (polacrilex) 2 mg Lozenge 2 mg BUCCAL Q2-4H PRN (Reason: Nicotine Cravings) duloxetine [Cymbalta] 20 mg Capsule,Delayed Release(Dr/Ec) 40 mg PO DAILY cholecalciferol (vitamin D3) 100 mcg (4,000 unit) Capsule 400 unit PO DAILY Multi-Vitamin W/Extra C 1 tab PO DAILY (DME) [employer] No Coding Strip See Rx Instructions .Route Qty: 100 3RF Rx Instructions: As directed check the BS QD (DME) lancets [[employer] Lancets] 28 gauge misc See Rx Instructions .Route Qty: 100 3RF Rx Instructions: As directed check the blood sugar once a day Interventions: Daniels-Suicide Risk Severity Scale Last Done: 06/25/23 16:42
[2023-06-25 23:44] VITALS: RESP 17
--- NOTE | 2023-06-26 06:32 | PC.NURSE ---
Pt refused to provide urine sample stating she is unable to urinate.
[2023-06-26 08:26] VITALS: RESP 18
[2023-06-26 08:26] LABS: Appearance Urine Cloudy; Color Urine Dark Yellow; Glucose Urine UA Negative (Negative); Leukocyte Esterase Urine Negative (Negative); Nitrite Urine Negative (Negative); PH 5.5 (5.0-9.0); Specific Gravity - Urine 1.025 (1.005-1.025); UMIC TRIGGER UACC YES; Urine Blood Negative (Negative); Urine Ketones Negative (Negative); Urine Protein 100 (2+) mg/dL (Neg-Trace)
[2023-06-26 08:31] LABS: Bacteria Urine 2+ (None Seen); Hyaline Casts Urine 0-2 /LPF (0-2); RBC Urine 0-2 /HPF (0-2); WBC Urine 0-5 /HPF (0-5)
[2023-06-26 09:34] LABS: Amphetamine Screen Urine Not Detected (Not Detect); Barbiturates, Urine Not Detected (Not Detect); Benzodiazepines Screen Urine Not Detected (Not Detect); Cannabinoid Screen Urine POSITIVE (Not Detect); Cocaine Screen Urine Not Detected (Not Detect); Fentanyl, urine Not Detected (Not Detect); Opiate Screen Urine Not Detected (Not Detect); Phencyclidine Screen Urine Not Detected (Not Detect)
--- NOTE | 2023-06-26 09:35 | PC.NURSE ---
pt refused ekg, it hurts , milton attempts made but unsuccessful, pt also refused her meds as she stated I'm not taking them they are street drugs , otherwise quiet and laying in her bed
--- NOTE | 2023-06-26 13:09 | PC.NURSE ---
Assumed care of patient at 1100, patient is resting on couch in BH7, offers no complaints, respirations even and unlabored. Pt refusing EKG stating it hurts, I don't want it . Pt otherwise compliant
--- NOTE | 2023-06-26 14:58 | PHA.MEDREC ---
Pharmacy Consult ? Medication Reconciliation Pharmacy has reviewed the medication reconciliation completed by binta. Patient filling Invega Sustena but patient believes she is not getting them anymore. Unable to confirm if patient still receive Invega Sustenna or the last time she has received it,
--- NOTE | 2023-06-26 18:38 | PC.NURSE ---
PT continues to refuse EKG after multiple attempts.
--- NOTE | 2023-06-26 19:11 | PC.NURSE ---
patient appears to remain at rest at present respirations are even and and unlabored patient appears in no distress.
[2023-06-26 20:52] VITALS: RESP 18
[2023-06-27 03:48] VITALS: RESP 17
--- NOTE | 2023-06-27 07:49 | PC.NURSE ---
Pt refused am medications. Refused VS.
--- NOTE | 2023-06-27 13:34 | PC.NURSE ---
Report given to Celeste LOMELI on M5.
[2023-06-27 14:11] VITALS: BP 163/77; PULSE 109; RESP 18; TEMP 36.6; O2SAT 98; BMI 34.1
--- NOTE | 2023-06-27 14:22 | PC.NURSE ---
Pt arrived to unit at approximately 1345. Pt added to safety check board and census board. Patient safety search completed on arrival with comic book writer and jamarcus Cotter RN. New band applied, patient oriented to unit, and menu and toiletries given to patient.
--- NOTE | 2023-06-27 18:03 | PC.ADMIT ---
This is one of multiple admissions for this 52 y.o female to [facility]. Arrived on unit at 1350 and placed on 15 min safety checks. Referred by [facility] Mobile Crisis with Dx Schizoaffective Disorder, Bipolar Type, Opioid Use Disorder. Precipitating factors to admission: Presented to [facility] on a Section 12b from [facility] mobile crisis on 06/25/23. Referral for crisis eval was initiated by the employment programs analyst for pt's group living environment. Pt had been presenting with increased depressive symptoms, paranoid delusions, poor ADL's, and med noncompliance. Pt has been declining meals at home, leading to noticeable wt loss to her outpt staff. Pt has not showered x2 weeks. Has not taken oral psych meds x6-7 months and refused IM Invega Sustenna this month. Last admission to this unit 07/23/20-11/03/20. CA[place]EDO positive for THC. Medical issues: Diabetes. Did not respond when initially approached by this technical writer and then stated she would not state her name out loud. Pt declined to participate in admission process. Walked away from this technical writer to her room and shut the door. Paranoia noted. Nurse to nurse done prior to admission by prior shift. Med verified in ED, Admission orders received. Declined CV, Section 12b status. Denies SI/HI. Visible in milieu; sitting in kitchen, isolative to self. Observed snacking upon admission to unit and eating supper this beatris.
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
[2023-06-29 08:00] VITALS: RESP 18
--- NOTE | 2023-06-29 12:14 | P.PNPSI_ITS ---
Subjective Subjective Date of Service: 06/29/23 Reason For Visit: Schizoaffective disorder Subjective Notes: Section 12B Medical Problems Affecting Mental Status: No Interim History: Not engaging with staff. Refusing medications. Is eating and drinkking. In milieu. Asked for motrin later in the day Medication Compliance: No Side effects from medications: No Attending Groups: Intermittent Review of Systems Acute medical concerns: No Review of Systems Review of Systems Yes Unobtainable due to mental status Mental Status Exam Mental Status Exam Narrative: poor self-care. Alert. Does appear oriented to where she is. Wearing headphones. Observed eating meals. Will not engage with interview. Diagnostics Vital Signs (24Hr): Vital Signs - 24 hr 06/29/23 08:00 Respiratory Rate 18 BMI result Body Mass Index 34.1 Labs 06/25/23 17:59 06/25/23 17:59 Medications Medications Current Medications Al Hydroxide/Mg Hydroxide (Magnesium Hydrox/Alum Hydrox 30 Ml Oral.Susp) 30 ml PO Q6H PRN PRN Reason: Heartburn/Nausea Albuterol Sulfate (Albuterol Sulfate 90 Mcg 8 Gm Inhaler) 2 puff INHALE Q4H PRN PRN Reason: Wheezing Duloxetine HCl (Duloxetine Hcl 20 Mg Capsule.Dr) 40 mg PO DAILY [facility] Last Admin: 06/29/23 10:13 Dose: Not Given Hydroxyzine HCl (Hydroxyzine Hcl 25 Mg Tablet) 25 mg PO Q6H PRN PRN Reason: Anxiety Magnesium Hydroxide (Milk Of Magnesia 30 Ml Oral.Susp) 30 ml PO DAILY PRN PRN Reason: Constipation Metformin HCl (Metformin Hcl 500 Mg Tablet) 500 mg PO BID [facility] Last Admin: 06/29/23 10:13 Dose: Not Given Metronidazole (Metronidazole 0.75 % Gel 45 Gm Tube) 1 appl TOPICAL DAILY [facility] Last Admin: 06/29/23 10:13 Dose: Not Given Multivitamins/Vitamin C (Multivitamin Tablet) 1 tab PO DAILY [facility] Last Admin: 06/29/23 10:13 Dose: Not Given Nicotine Polacrilex (Nicotine Polacrilex Lozenge 2 Mg Lozenge) 2 mg BUCCAL Q2H PRN PRN Reason: Nicotine Cravings Olanzapine (Olanzapine Odt 10 Mg Tab.Rapdis) 20 mg TRANSLINGU DAILY [facility] Last Admin: 06/29/23 10:14 Dose: Not Given Olanzapine (Olanzapine Odt 10 Mg Tab.Rapdis) 10 mg TRANSLINGU DAILY PRN PRN Reason: Psychosis Trazodone HCl (Trazodone Hcl 50 Mg Tablet) 50 mg PO BEDTIME MRX1 PRN PRN Reason: Insomnia Vitamin D (Cholecalciferol (Vitamin D3) 10 Mcg Tablet) 10 mcg PO DAILY [facility] Last Admin: 06/29/23 10:13 Dose: Not Given Allergies Allergies Allergy/AdvReac Type Severity Reaction Status Date / Time acetaminophen [From TYLENOL] Allergy Intermediate HIVES Verified 08/28/22 09:48 meperidine [From Demerol] Allergy Unknown Verified 08/28/22 09:48 Assessment & Plan Assessment & Plan (1) Schizoaffective disorder: Status: Acute Code(s): F25.9 - Schizoaffective disorder, unspecified Assessment and Plan: Presents with decompensation of schizoaffective disorder, while in group living environment. Not adherence appears to be a factor. Patient not engaging with interview, evaluation or adherent with medications ie declining same. Unable to care for self. Being held on a Section 12 that will on 07/02/23. In the meantime will try and establish report and encourage medication adherence. Plan 2/4: encourage med adherence. Reason for continued inpatient stay Substantial Risk for: inability to function Time Spent With Patient Time: Total time managing care of this patient today ____ minutes.
[2023-06-29] MEDS: Ibuprofen 600 MG TABLET PO (13:35)
[2023-06-29 18:00] VITALS: RESP 18
[2023-06-30 09:36] VITALS: RESP 18
--- NOTE | 2023-06-30 15:07 | HO.PSYCHPN ---
Subjective Subjective Date of Service: 06/30/23 Reason For Visit: Schizoaffective disorder Subjective Notes: Section 12B Healthcare Proxy: Yes Guardianship: No Medical Problems Affecting Mental Status: No Interim History: I am sick and will need to stay a long time. Refusing of meds, care, ADL's. Significant body odor. Engaging when approached at times, irritable, dismissive at other times. Listening to headphones in milieu, singing, dancing. Delusional and paranoid sx are present. Medication Compliance: No Side effects from medications: No Attending Groups: No Review of Systems Acute medical concerns: No Medical Review of Systems: unchanged Review of Systems Review of Systems Reports that every bone in her body is broken. Mental Status Exam Mental Status Exam Patient Appearance: Fatigued, Unkempt and Malodorous Patient Orientation: Person and Place Level of Consciousness: Alert Patient Behavior: Talkative, Suspicious, Belligerent, Anxious, Fearful, Avoidant, Distractible and Good Eye Contact Mood Description: Labile Affect Description: Labile Patient Cognition Impaired: Yes Ability to Follow Directions: Fair Speech Pattern: Spontaneous Speech Memory Description: Remote Impaired and Episodic Impaired Hallucinations: Auditory (??) Delusions: Paranoid Ideation and Present Perceptual Disturbances: Derealization Thought Process: Illogical, Distracted and Rumination Thought Content: positive for Flight of Ideas, positive for Circumstantial, positive for Perseveration, positive for Thought Blocking, positive for Tangential and positive for Disorganized Depressive Symptoms: Increased Anxiety, Increased Irritability, Unhappiness, Difficulty Concentrating and Back Pain Abnormal Motor Activity Signs and Symptoms: Restlessness Judgement: Poor Diagnostics Vital Signs (24Hr): Vital Signs - 24 hr 06/29/23 18:00 06/30/23 09:36 Respiratory Rate 18 18 BMI result Body Mass Index 34.1 Labs 06/25/23 17:59 06/25/23 17:59 Medications Medications Current Medications Al Hydroxide/Mg Hydroxide (Magnesium Hydrox/Alum Hydrox 30 Ml Oral.Susp) 30 ml PO Q6H PRN PRN Reason: Heartburn/Nausea Albuterol Sulfate (Albuterol Sulfate 90 Mcg 8 Gm Inhaler) 2 puff INHALE Q4H PRN PRN Reason: Wheezing Duloxetine HCl (Duloxetine Hcl 20 Mg Capsule.Dr) 40 mg PO DAILY [facility] Last Admin: 06/30/23 09:36 Dose: Not Given Hydroxyzine HCl (Hydroxyzine Hcl 25 Mg Tablet) 25 mg PO Q6H PRN PRN Reason: Anxiety Ibuprofen (Ibuprofen 600 Mg Tablet) 600 mg PO Q6H PRN PRN Reason: moderate to severe pain Last Admin: 06/29/23 13:35 Dose: 600 mg Magnesium Hydroxide (Milk Of Magnesia 30 Ml Oral.Susp) 30 ml PO DAILY PRN PRN Reason: Constipation Metformin HCl (Metformin Hcl 500 Mg Tablet) 500 mg PO BID [facility] Last Admin: 06/30/23 09:36 Dose: Not Given Metronidazole (Metronidazole 0.75 % Gel 45 Gm Tube) 1 appl TOPICAL DAILY [facility] Last Admin: 06/30/23 09:36 Dose: Not Given Multivitamins/Vitamin C (Multivitamin Tablet) 1 tab PO DAILY [facility] Last Admin: 06/30/23 09:36 Dose: Not Given Nicotine Polacrilex (Nicotine Polacrilex Lozenge 2 Mg Lozenge) 2 mg BUCCAL Q2H PRN PRN Reason: Nicotine Cravings Olanzapine (Olanzapine Odt 10 Mg Tab.Rapdis) 20 mg TRANSLINGU DAILY [facility] Last Admin: 06/30/23 09:36 Dose: Not Given Olanzapine (Olanzapine Odt 10 Mg Tab.Rapdis) 10 mg TRANSLINGU DAILY PRN PRN Reason: Psychosis Trazodone HCl (Trazodone Hcl 50 Mg Tablet) 50 mg PO BEDTIME MRX1 PRN PRN Reason: Insomnia Vitamin D (Cholecalciferol (Vitamin D3) 10 Mcg Tablet) 10 mcg PO DAILY [facility] Last Admin: 06/30/23 09:36 Dose: Not Given Allergies Allergies Allergy/AdvReac Type Severity Reaction Status Date / Time acetaminophen [From TYLENOL] Allergy Intermediate HIVES Verified 08/28/22 09:48 meperidine [From Demerol] Allergy Unknown Verified 08/28/22 09:48 Assessment & Plan Assessment & Plan (1) Schizoaffective disorder: Status: Acute Code(s): F25.9 - Schizoaffective disorder, unspecified Assessment and Plan: Presents with decompensation of schizoaffective disorder, while in group living environment. Not adherence appears to be a factor. Patient not engaging with interview, evaluation or adherent with medications ie declining same. Unable to care for self. Being held on a Section 12 that will on 07/02/23. In the meantime will try and establish report and encourage medication adherence. Plan 2/4: encourage med adherence. 06/30/23: Encourage participation in treatment. Informed Consent: does not understand Reason for continued inpatient stay Substantial Risk for: rapid decompensation Time Spent With Patient Time: Total time managing care of this patient today ____ minutes.
[2023-06-30] MEDS: Ibuprofen 600 MG TABLET PO (17:12)
[2023-07-01 09:13] VITALS: RESP 16
[2023-07-01] MEDS: Ibuprofen 600 MG TABLET PO ×2 (12:16→21:20)
--- NOTE | 2023-07-01 14:25 | P.PNPSI_ITS ---
Subjective Subjective Date of Service: 07/01/23 Reason For Visit: Schizoaffective disorder Subjective Notes: Section 12B Healthcare Proxy: Yes Guardianship: No Medical Problems Affecting Mental Status: No Interim History: Pt seen, discussed in team meeting. Reports her back, legs, feet, hands hurt and she can only take Motrin. She needs to heal broken bones, needs a wheelchair and cannot sleep She will allow Ensure, no other meds besides Motrin TC to HCP, Martine Elder [phone]. Martine is pt's partner's mother (partner a few years ago). She is available to pt as needed, however, she is about to have hip surgery and will be unavailable for a few weeks, she is available to pt by phone. Martine reports pt stopped meds several months ago as someone at the home told her her injectable meds had Fentanyl in it and pt became increasingly paranoid, thinking she would just as she saw her partner of this a few years ago. Discussed filing of Section 7 which Martine is in agreement with. Pt has no family to contact at this time. Medication Compliance: No Side effects from medications: No Attending Groups: No Review of Systems Acute medical concerns: No Medical Review of Systems: unchanged Review of Systems Review of Systems reports chronic musculoskeletal pain Mental Status Exam Mental Status Exam Patient Appearance: Fatigued, Unkempt and Malodorous Patient Orientation: Person and Place Level of Consciousness: Alert Patient Behavior: Talkative, Suspicious, Belligerent, Anxious, Fearful, Avoidant, Distractible and Good Eye Contact Mood Description: Labile Affect Description: Labile Patient Cognition Impaired: Yes Ability to Follow Directions: Fair Speech Pattern: Spontaneous Speech Memory Description: Remote Impaired and Episodic Impaired Hallucinations: Auditory (??) Delusions: Paranoid Ideation and Present Perceptual Disturbances: Derealization Thought Process: Illogical, Distracted and Rumination Thought Content: positive for Flight of Ideas, positive for Circumstantial, positive for Perseveration, positive for Thought Blocking, positive for Tangential and positive for Disorganized Depressive Symptoms: Increased Anxiety, Increased Irritability, Unhappiness, Difficulty Concentrating and Back Pain Abnormal Motor Activity Signs and Symptoms: Restlessness Judgement: Poor Diagnostics Vital Signs (24Hr): Vital Signs - 24 hr 07/01/23 09:13 Respiratory Rate 16 BMI result Body Mass Index 34.1 Labs 06/25/23 17:59 06/25/23 17:59 Medications Medications Current Medications Al Hydroxide/Mg Hydroxide (Magnesium Hydrox/Alum Hydrox 30 Ml Oral.Susp) 30 ml PO Q6H PRN PRN Reason: Heartburn/Nausea Albuterol Sulfate (Albuterol Sulfate 90 Mcg 8 Gm Inhaler) 2 puff INHALE Q4H PRN PRN Reason: Wheezing Duloxetine HCl (Duloxetine Hcl 20 Mg Capsule.Dr) 40 mg PO DAILY [facility] Last Admin: 07/01/23 09:09 Dose: Not Given Hydroxyzine HCl (Hydroxyzine Hcl 25 Mg Tablet) 25 mg PO Q6H PRN PRN Reason: Anxiety Ibuprofen (Ibuprofen 600 Mg Tablet) 600 mg PO Q6H PRN PRN Reason: moderate to severe pain Last Admin: 07/01/23 12:16 Dose: 600 mg Magnesium Hydroxide (Milk Of Magnesia 30 Ml Oral.Susp) 30 ml PO DAILY PRN PRN Reason: Constipation Metformin HCl (Metformin Hcl 500 Mg Tablet) 500 mg PO BID [facility] Last Admin: 07/01/23 09:09 Dose: Not Given Metronidazole (Metronidazole 0.75 % Gel 45 Gm Tube) 1 appl TOPICAL DAILY [facility] Last Admin: 07/01/23 09:09 Dose: Not Given Multivitamins/Vitamin C (Multivitamin Tablet) 1 tab PO DAILY [facility] Last Admin: 07/01/23 09:10 Dose: Not Given Nicotine Polacrilex (Nicotine Polacrilex Lozenge 2 Mg Lozenge) 2 mg BUCCAL Q2H PRN PRN Reason: Nicotine Cravings Olanzapine (Olanzapine Odt 10 Mg Tab.Rapdis) 20 mg TRANSLINGU DAILY [facility] Last Admin: 07/01/23 09:10 Dose: Not Given Olanzapine (Olanzapine Odt 10 Mg Tab.Rapdis) 10 mg TRANSLINGU DAILY PRN PRN Reason: Psychosis Trazodone HCl (Trazodone Hcl 50 Mg Tablet) 50 mg PO BEDTIME MRX1 PRN PRN Reason: Insomnia Vitamin D (Cholecalciferol (Vitamin D3) 10 Mcg Tablet) 10 mcg PO DAILY [facility] Last Admin: 07/01/23 09:09 Dose: Not Given Allergies Allergies Allergy/AdvReac Type Severity Reaction Status Date / Time acetaminophen [From TYLENOL] Allergy Intermediate HIVES Verified 08/28/22 09:48 meperidine [From Demerol] Allergy Unknown Verified 08/28/22 09:48 Assessment & Plan Assessment & Plan (1) Schizoaffective disorder: Status: Acute Code(s): F25.9 - Schizoaffective disorder, unspecified Assessment and Plan: Presents with decompensation of schizoaffective disorder, while in group living environment. Not adherence appears to be a factor. Patient not engaging with interview, evaluation or adherent with medications ie declining same. Unable to care for self. Being held on a Section 12 that will on 07/02/23. In the meantime will try and establish report and encourage medication adherence. Plan 06/29: encourage med adherence. 07/01/23: Ensure tid Will file Section VII on 07/02/23. Informed Consent: does not understand Reason for continued inpatient stay Substantial Risk for: rapid decompensation Time Spent With Patient Time: Total time managing care of this patient today ____ minutes.
[2023-07-01 18:00] VITALS: RESP 18
--- NOTE | 2023-07-02 08:40 | HO.PSYCHPN ---
Subjective Subjective Date of Service: 07/02/23 Reason For Visit: Schizoaffective disorder Subjective Notes: Conditional Voluntary (signed in by HCP) Healthcare Proxy: Yes Guardianship: No Medical Problems Affecting Mental Status: No Interim History: Pt's Section 12B expires today. Discussion with HCP Martine Elder [phone]. Martine is willing to serve in the capacity as HCP and has signed a CV for pt to remain on the unit. She is aware she will be consenting to treatment decisions. We will need to go to probate to affirm the HCP for medication use. Martine will have surgery 07/15 and will be available for court by zoom. She will be available by phone but not in person for a time after surgery. She is happy to assist pt with her care and treatment and is invested in her recovery. Pt is not asking to leave the unit. She is isolative, refusing of care and treatment, however, intermittently interactive and attempts to help peers and offer her feedback and assistance. Team notes as does this ticket writer, that she believes all on the unit are men. Today she asks for face cream which she uses at home. Medication Compliance: No Side effects from medications: No Attending Groups: No Review of Systems Acute medical concerns: No Medical Review of Systems: unchanged Review of Systems Review of Systems Yes Unobtainable due to mental status Mental Status Exam Mental Status Exam Patient Appearance: Fatigued and Appropriate (showered today) Patient Orientation: Person and Place Level of Consciousness: Alert Patient Behavior: Talkative, Suspicious, Belligerent, Anxious, Fearful, Avoidant, Distractible and Good Eye Contact Mood Description: Labile Affect Description: Labile Patient Cognition Impaired: Yes Ability to Follow Directions: Fair Speech Pattern: Spontaneous Speech Memory Description: Remote Impaired and Episodic Impaired Hallucinations: Auditory (??) Delusions: Paranoid Ideation and Present Perceptual Disturbances: Derealization Thought Process: Illogical, Distracted and Rumination Thought Content: positive for Flight of Ideas, positive for Circumstantial, positive for Perseveration, positive for Thought Blocking, positive for Tangential and positive for Disorganized Depressive Symptoms: Increased Anxiety, Increased Irritability, Unhappiness, Difficulty Concentrating and Back Pain Abnormal Motor Activity Signs and Symptoms: Restlessness Judgement: Poor Diagnostics Vital Signs (24Hr): Vital Signs - 24 hr 07/01/23 09:13 07/01/23 18:00 Respiratory Rate 16 18 BMI result Body Mass Index 34.1 Labs 06/25/23 17:59 06/25/23 17:59 Medications Medications Current Medications Al Hydroxide/Mg Hydroxide (Magnesium Hydrox/Alum Hydrox 30 Ml Oral.Susp) 30 ml PO Q6H PRN PRN Reason: Heartburn/Nausea Albuterol Sulfate (Albuterol Sulfate 90 Mcg 8 Gm Inhaler) 2 puff INHALE Q4H PRN PRN Reason: Wheezing Duloxetine HCl (Duloxetine Hcl 20 Mg Capsule.Dr) 40 mg PO DAILY [facility] Last Admin: 07/01/23 09:09 Dose: Not Given Hydroxyzine HCl (Hydroxyzine Hcl 25 Mg Tablet) 25 mg PO Q6H PRN PRN Reason: Anxiety Ibuprofen (Ibuprofen 600 Mg Tablet) 600 mg PO Q6H PRN PRN Reason: moderate to severe pain Last Admin: 07/01/23 21:20 Dose: 600 mg Magnesium Hydroxide (Milk Of Magnesia 30 Ml Oral.Susp) 30 ml PO DAILY PRN PRN Reason: Constipation Metformin HCl (Metformin Hcl 500 Mg Tablet) 500 mg PO BID [facility] Last Admin: 07/01/23 20:29 Dose: Not Given Metronidazole (Metronidazole 0.75 % Gel 45 Gm Tube) 1 appl TOPICAL DAILY [facility] Last Admin: 07/01/23 09:09 Dose: Not Given Multivitamins/Vitamin C (Multivitamin Tablet) 1 tab PO DAILY [facility] Last Admin: 07/01/23 09:10 Dose: Not Given Nicotine Polacrilex (Nicotine Polacrilex Lozenge 2 Mg Lozenge) 2 mg BUCCAL Q2H PRN PRN Reason: Nicotine Cravings Olanzapine (Olanzapine Odt 10 Mg Tab.Rapdis) 20 mg TRANSLINGU DAILY [facility] Last Admin: 07/01/23 09:10 Dose: Not Given Olanzapine (Olanzapine Odt 10 Mg Tab.Rapdis) 10 mg TRANSLINGU DAILY PRN PRN Reason: Psychosis Trazodone HCl (Trazodone Hcl 50 Mg Tablet) 50 mg PO BEDTIME MRX1 PRN PRN Reason: Insomnia Vitamin D (Cholecalciferol (Vitamin D3) 10 Mcg Tablet) 10 mcg PO DAILY [facility] Last Admin: 07/01/23 09:09 Dose: Not Given Allergies Allergies Allergy/AdvReac Type Severity Reaction Status Date / Time acetaminophen [From TYLENOL] Allergy Intermediate HIVES Verified 08/28/22 09:48 meperidine [From Demerol] Allergy Unknown Verified 08/28/22 09:48 Assessment & Plan Assessment & Plan (1) Schizoaffective disorder: Status: Acute Code(s): F25.9 - Schizoaffective disorder, unspecified Assessment and Plan: Presents with decompensation of schizoaffective disorder, while in group living environment. Not adherence appears to be a factor. Patient not engaging with interview, evaluation or adherent with medications ie declining same. Unable to care for self. Being held on a Section 12 that will on 07/02/23. In the meantime will try and establish report and encourage medication adherence. Plan 06/29: encourage med adherence. 07/01/23: Ensure tid Will file Section VII on 07/02/23. 07/02/23: HCP activated today. Martine Elder is willing to serve in this role. [phone]. Informed Consent: does not understand Reason for continued inpatient stay Substantial Risk for: rapid decompensation Time Spent With Patient Time: Total time managing care of this patient today ____ minutes.
[2023-07-02 11:08] VITALS: RESP 16
[2023-07-02 18:00] VITALS: RESP 18
[2023-07-03 10:43] VITALS: RESP 16
--- NOTE | 2023-07-03 16:33 | P.PNPSI_ITS ---
Subjective Subjective Date of Service: 07/03/23 Reason For Visit: Schizoaffective disorder Subjective Notes: Conditional Voluntary Healthcare Proxy: Yes Guardianship: No Medical Problems Affecting Mental Status: No Interim History: Visable in milieu. Labile, angry, quiet yet interactive. Attempted to give pt a message from her HCP. She hates me I hate me I know all of you don't hate me, that is why I am working for you . Refusing of meds. Medication Compliance: No Side effects from medications: No Attending Groups: No Review of Systems Acute medical concerns: No Medical Review of Systems: unchanged Review of Systems Review of Systems Yes all other systems are reviewed and are negative Mental Status Exam Mental Status Exam Patient Appearance: Fatigued Patient Orientation: Person and Place Level of Consciousness: Alert Patient Behavior: Talkative, Suspicious, Belligerent, Anxious, Fearful, Avoidant, Distractible and Good Eye Contact Mood Description: Labile Affect Description: Labile Patient Cognition Impaired: Yes Ability to Follow Directions: Fair Speech Pattern: Spontaneous Speech Memory Description: Remote Impaired and Episodic Impaired Hallucinations: Auditory (??) Delusions: Paranoid Ideation and Present Perceptual Disturbances: Derealization Thought Process: Illogical, Distracted and Rumination Thought Content: positive for Flight of Ideas, positive for Circumstantial, positive for Perseveration, positive for Thought Blocking, positive for Tangential and positive for Disorganized Depressive Symptoms: Increased Anxiety, Increased Irritability, Unhappiness, Difficulty Concentrating and Back Pain Abnormal Motor Activity Signs and Symptoms: Restlessness Judgement: Poor Diagnostics Vital Signs (24Hr): Vital Signs - 24 hr 07/02/23 18:00 07/03/23 10:43 Respiratory Rate 18 16 BMI result Body Mass Index 34.1 Labs 06/25/23 17:59 06/25/23 17:59 Medications Medications Current Medications Al Hydroxide/Mg Hydroxide (Magnesium Hydrox/Alum Hydrox 30 Ml Oral.Susp) 30 ml PO Q6H PRN PRN Reason: Heartburn/Nausea Albuterol Sulfate (Albuterol Sulfate 90 Mcg 8 Gm Inhaler) 2 puff INHALE Q4H PRN PRN Reason: Wheezing Duloxetine HCl (Duloxetine Hcl 20 Mg Capsule.Dr) 40 mg PO DAILY [facility] Last Admin: 07/03/23 08:55 Dose: Not Given Hydroxyzine HCl (Hydroxyzine Hcl 25 Mg Tablet) 25 mg PO Q6H PRN PRN Reason: Anxiety Ibuprofen (Ibuprofen 600 Mg Tablet) 600 mg PO Q6H PRN PRN Reason: moderate to severe pain Last Admin: 07/01/23 21:20 Dose: 600 mg Magnesium Hydroxide (Milk Of Magnesia 30 Ml Oral.Susp) 30 ml PO DAILY PRN PRN Reason: Constipation Metformin HCl (Metformin Hcl 500 Mg Tablet) 500 mg PO BID [facility] Last Admin: 07/03/23 08:55 Dose: Not Given Metronidazole (Metronidazole 0.75 % Gel 45 Gm Tube) 1 appl TOPICAL DAILY [facility] Last Admin: 07/03/23 08:55 Dose: Not Given Multivitamins/Vitamin C (Multivitamin Tablet) 1 tab PO DAILY [facility] Last Admin: 07/03/23 08:55 Dose: Not Given Nicotine Polacrilex (Nicotine Polacrilex Lozenge 2 Mg Lozenge) 2 mg BUCCAL Q2H PRN PRN Reason: Nicotine Cravings Olanzapine (Olanzapine Odt 10 Mg Tab.Rapdis) 20 mg TRANSLINGU DAILY [facility] Last Admin: 07/03/23 08:55 Dose: Not Given Olanzapine (Olanzapine Odt 10 Mg Tab.Rapdis) 10 mg TRANSLINGU DAILY PRN PRN Reason: Psychosis Trazodone HCl (Trazodone Hcl 50 Mg Tablet) 50 mg PO BEDTIME MRX1 PRN PRN Reason: Insomnia Vitamin D (Cholecalciferol (Vitamin D3) 10 Mcg Tablet) 10 mcg PO DAILY [facility] Last Admin: 07/03/23 08:54 Dose: Not Given Allergies Allergies Allergy/AdvReac Type Severity Reaction Status Date / Time acetaminophen [From TYLENOL] Allergy Intermediate HIVES Verified 08/28/22 09:48 meperidine [From Demerol] Allergy Unknown Verified 08/28/22 09:48 Assessment & Plan Assessment & Plan (1) Schizoaffective disorder: Status: Acute Code(s): F25.9 - Schizoaffective disorder, unspecified Assessment and Plan: Presents with decompensation of schizoaffective disorder, while in group living environment. Not adherence appears to be a factor. Patient not engaging with interview, evaluation or adherent with medications ie declining same. Unable to care for self. Being held on a Section 12 that will on 07/02/23. In the meantime will try and establish report and encourage medication adherence. Plan 06/29: encourage med adherence. 07/01/23: Ensure tid Will file Section VII on 07/02/23. 07/02/23: HCP activated today. Martine Elder is willing to serve in this role. [phone]. 07/03/23: Encourage treatment compliance Informed Consent: does not understand Reason for continued inpatient stay Substantial Risk for: rapid decompensation Time Spent With Patient Time: Total time managing care of this patient today ____ minutes.
[2023-07-03] MEDS: Ibuprofen 600 MG TABLET PO (20:52)
[2023-07-04 06:00] VITALS: RESP 16
--- NOTE | 2023-07-04 09:59 | HO.PSYCHPN ---
Subjective Subjective Date of Service: 07/04/23 Reason For Visit: Schizoaffective disorder Subjective Notes: Conditional Voluntary Healthcare Proxy: Yes Guardianship: No Medical Problems Affecting Mental Status: No Interim History: No, I can only take Motrin and Cetaphil I own the pharmacy and all the medicines there are contraband except Motrin Cetaphil is safe from [facility] Attempting to discuss pt's reports of joint pain, muscle pain, bone pain to her stopping Cymbalta. No, I have not taken it in 20 years , just Motrin . The other stuff is poisoned. I know, I own all of the pharmacies . Medication Compliance: No Side effects from medications: No Attending Groups: No Review of Systems Acute medical concerns: No Medical Review of Systems: unchanged Review of Systems Review of Systems joint, muscle, bone pain reported. Pt will not accept intervention as she believes she owns all of the pharmacies and all of the meds are contraband. Mental Status Exam Mental Status Exam Patient Appearance: Fatigued Patient Orientation: Person and Place Level of Consciousness: Alert Patient Behavior: Talkative, Suspicious, Belligerent, Anxious, Fearful, Avoidant, Distractible and Good Eye Contact Mood Description: Labile Affect Description: Labile Patient Cognition Impaired: Yes Ability to Follow Directions: Fair Speech Pattern: Spontaneous Speech Memory Description: Remote Impaired and Episodic Impaired Hallucinations: Auditory (??) Delusions: Paranoid Ideation and Present Perceptual Disturbances: Derealization Thought Process: Illogical, Distracted and Rumination Thought Content: positive for Flight of Ideas, positive for Circumstantial, positive for Perseveration, positive for Thought Blocking, positive for Tangential and positive for Disorganized Depressive Symptoms: Increased Anxiety, Increased Irritability, Unhappiness, Difficulty Concentrating and Back Pain Abnormal Motor Activity Signs and Symptoms: Restlessness Judgement: Poor Diagnostics Vital Signs (24Hr): Vital Signs - 24 hr 07/03/23 10:43 07/04/23 06:00 Respiratory Rate 16 16 BMI result Body Mass Index 34.1 Labs 06/25/23 17:59 06/25/23 17:59 Medications Medications Current Medications Al Hydroxide/Mg Hydroxide (Magnesium Hydrox/Alum Hydrox 30 Ml Oral.Susp) 30 ml PO Q6H PRN PRN Reason: Heartburn/Nausea Albuterol Sulfate (Albuterol Sulfate 90 Mcg 8 Gm Inhaler) 2 puff INHALE Q4H PRN PRN Reason: Wheezing Duloxetine HCl (Duloxetine Hcl 20 Mg Capsule.Dr) 40 mg PO DAILY [facility] Last Admin: 07/04/23 08:21 Dose: Not Given Hydroxyzine HCl (Hydroxyzine Hcl 25 Mg Tablet) 25 mg PO Q6H PRN PRN Reason: Anxiety Ibuprofen (Ibuprofen 600 Mg Tablet) 600 mg PO Q6H PRN PRN Reason: moderate to severe pain Last Admin: 07/03/23 20:52 Dose: 600 mg Lorazepam (Lorazepam 0.5 Mg Tablet) 0.5 mg PO BID [facility] Last Admin: 07/04/23 08:21 Dose: Not Given Magnesium Hydroxide (Milk Of Magnesia 30 Ml Oral.Susp) 30 ml PO DAILY PRN PRN Reason: Constipation Metformin HCl (Metformin Hcl 500 Mg Tablet) 500 mg PO BID [facility] Last Admin: 07/04/23 08:21 Dose: Not Given Metronidazole (Metronidazole 0.75 % Gel 45 Gm Tube) 1 appl TOPICAL DAILY [facility] Last Admin: 07/04/23 08:21 Dose: Not Given Multivitamins/Vitamin C (Multivitamin Tablet) 1 tab PO DAILY [facility] Last Admin: 07/04/23 08:21 Dose: Not Given Nicotine Polacrilex (Nicotine Polacrilex Lozenge 2 Mg Lozenge) 2 mg BUCCAL Q2H PRN PRN Reason: Nicotine Cravings Olanzapine (Olanzapine Odt 10 Mg Tab.Rapdis) 20 mg TRANSLINGU DAILY [facility] Last Admin: 07/04/23 08:22 Dose: Not Given Olanzapine (Olanzapine Odt 10 Mg Tab.Rapdis) 10 mg TRANSLINGU DAILY PRN PRN Reason: Psychosis Trazodone HCl (Trazodone Hcl 50 Mg Tablet) 50 mg PO BEDTIME MRX1 PRN PRN Reason: Insomnia Vitamin D (Cholecalciferol (Vitamin D3) 10 Mcg Tablet) 10 mcg PO DAILY [facility] Last Admin: 07/04/23 08:21 Dose: Not Given Allergies Allergies Allergy/AdvReac Type Severity Reaction Status Date / Time acetaminophen [From TYLENOL] Allergy Intermediate HIVES Verified 08/28/22 09:48 meperidine [From Demerol] Allergy Unknown Verified 08/28/22 09:48 Assessment & Plan Assessment & Plan (1) Schizoaffective disorder: Status: Acute Code(s): F25.9 - Schizoaffective disorder, unspecified Assessment and Plan: Presents with decompensation of schizoaffective disorder, while in group living environment. Not adherence appears to be a factor. Patient not engaging with interview, evaluation or adherent with medications ie declining same. Unable to care for self. Being held on a Section 12 that will on 07/02/23. In the meantime will try and establish report and encourage medication adherence. Plan 06/29: encourage med adherence. 07/01/23: Ensure tid Will file Section VII on 07/02/23. 07/02/23: HCP activated today. Martine Elder is willing to serve in this role. [phone]. 07/03/23: Encourage treatment compliance 07/04/23 Encourage treatment compliance, begin process of validating HCP with the courts in order to provide pt with psychopharmacology options. Informed Consent: does not understand Reason for continued inpatient stay Substantial Risk for: rapid decompensation Time Spent With Patient Time: Total time managing care of this patient today ____ minutes.
[2023-07-04] MEDS: Ibuprofen 600 MG TABLET PO ×2 (13:54→21:27)
--- NOTE | 2023-07-05 10:32 | P.PNPSI_ITS ---
Subjective Subjective Date of Service: 07/05/23 Reason For Visit: Schizoaffective disorder Subjective Notes: Conditional Voluntary Healthcare Proxy: Yes Guardianship: No Medical Problems Affecting Mental Status: No Interim History: Continues guarded, paranoid, delusional, grandiose. Refusing of meds and treatment Unable to have a discussion with her-she owns all pharmacies, all meds are contraband for her except motrin and cetaphil and this is fixed in her thought process. She reports muscle pain-unable to accept alternative interventions besides motrin. Quiet in milieu- no aggression, no violence. States she is safe here as when I lived with all of you before I learned that you would keep me safe and you are. Medication Compliance: No Side effects from medications: No Attending Groups: No Review of Systems Acute medical concerns: No Medical Review of Systems: unchanged Review of Systems Review of Systems Yes all other systems are reviewed and are negative and Unobtainable due to mental status Mental Status Exam Mental Status Exam Patient Appearance: Fatigued Patient Orientation: Person and Place Level of Consciousness: Alert Patient Behavior: Talkative, Suspicious, Belligerent, Anxious, Fearful, Avoidant, Distractible and Good Eye Contact Mood Description: Labile Affect Description: Labile Patient Cognition Impaired: Yes Ability to Follow Directions: Fair Speech Pattern: Spontaneous Speech Memory Description: Remote Impaired and Episodic Impaired Hallucinations: Auditory (??) Delusions: Paranoid Ideation and Present Perceptual Disturbances: Derealization Thought Process: Illogical, Distracted and Rumination Thought Content: positive for Flight of Ideas, positive for Circumstantial, positive for Perseveration, positive for Thought Blocking, positive for Tangential and positive for Disorganized Depressive Symptoms: Increased Anxiety, Increased Irritability, Unhappiness, Difficulty Concentrating and Back Pain Abnormal Motor Activity Signs and Symptoms: Restlessness Judgement: Poor Diagnostics Vital Signs (24Hr): BMI result Body Mass Index 34.1 Labs 06/25/23 17:59 06/25/23 17:59 Medications Medications Current Medications Al Hydroxide/Mg Hydroxide (Magnesium Hydrox/Alum Hydrox 30 Ml Oral.Susp) 30 ml PO Q6H PRN PRN Reason: Heartburn/Nausea Albuterol Sulfate (Albuterol Sulfate 90 Mcg 8 Gm Inhaler) 2 puff INHALE Q4H PRN PRN Reason: Wheezing Duloxetine HCl (Duloxetine Hcl 20 Mg Capsule.Dr) 40 mg PO DAILY [facility] Last Admin: 07/05/23 09:40 Dose: Not Given Hydroxyzine HCl (Hydroxyzine Hcl 25 Mg Tablet) 25 mg PO Q6H PRN PRN Reason: Anxiety Ibuprofen (Ibuprofen 600 Mg Tablet) 600 mg PO Q6H PRN PRN Reason: moderate to severe pain Last Admin: 07/04/23 21:27 Dose: 600 mg Lorazepam (Lorazepam 0.5 Mg Tablet) 0.5 mg PO BID [facility] Last Admin: 07/05/23 09:40 Dose: Not Given Magnesium Hydroxide (Milk Of Magnesia 30 Ml Oral.Susp) 30 ml PO DAILY PRN PRN Reason: Constipation Metformin HCl (Metformin Hcl 500 Mg Tablet) 500 mg PO BID [facility] Last Admin: 07/05/23 09:40 Dose: Not Given Metronidazole (Metronidazole 0.75 % Gel 45 Gm Tube) 1 appl TOPICAL DAILY [facility] Last Admin: 07/05/23 09:40 Dose: Not Given Multivitamins/Vitamin C (Multivitamin Tablet) 1 tab PO DAILY [facility] Last Admin: 07/05/23 09:40 Dose: Not Given Nicotine Polacrilex (Nicotine Polacrilex Lozenge 2 Mg Lozenge) 2 mg BUCCAL Q2H PRN PRN Reason: Nicotine Cravings Olanzapine (Olanzapine Odt 10 Mg Tab.Rapdis) 20 mg TRANSLINGU DAILY [facility] Last Admin: 07/05/23 09:40 Dose: Not Given Olanzapine (Olanzapine Odt 10 Mg Tab.Rapdis) 10 mg TRANSLINGU DAILY PRN PRN Reason: Psychosis Trazodone HCl (Trazodone Hcl 50 Mg Tablet) 50 mg PO BEDTIME MRX1 PRN PRN Reason: Insomnia Vitamin D (Cholecalciferol (Vitamin D3) 10 Mcg Tablet) 10 mcg PO DAILY [facility] Last Admin: 07/05/23 09:40 Dose: Not Given Allergies Allergies Allergy/AdvReac Type Severity Reaction Status Date / Time acetaminophen [From TYLENOL] Allergy Intermediate HIVES Verified 08/28/22 09:48 meperidine [From Demerol] Allergy Unknown Verified 08/28/22 09:48 Assessment & Plan Assessment & Plan (1) Schizoaffective disorder: Status: Acute Code(s): F25.9 - Schizoaffective disorder, unspecified Assessment and Plan: Presents with decompensation of schizoaffective disorder, while in group living environment. Not adherence appears to be a factor. Patient not engaging with interview, evaluation or adherent with medications ie declining same. Unable to care for self. Being held on a Section 12 that will on 07/02/23. In the meantime will try and establish report and encourage medication adherence. Plan 06/29: encourage med adherence. 07/01/23: Ensure tid Will file Section VII on 07/02/23. 07/02/23: HCP activated today. Martine Elder is willing to serve in this role. [phone]. 07/03/23: Encourage treatment compliance 07/04/23 Encourage treatment compliance, begin process of validating HCP with the courts in order to provide pt with psychopharmacology options. 07/05/23 Encourage treatment. Informed Consent: does not understand Reason for continued inpatient stay Substantial Risk for: rapid decompensation Time Spent With Patient Time: Total time managing care of this patient today ____ minutes.
[2023-07-05 11:18] VITALS: RESP 16
[2023-07-05] MEDS: Ibuprofen 600 MG TABLET PO (22:00)
[2023-07-06 08:54] VITALS: RESP 16
[2023-07-06] MEDS: Ibuprofen 600 MG TABLET PO (20:29)
--- NOTE | 2023-07-07 09:40 | HO.PSYCHPN ---
Subjective Subjective Date of Service: 07/07/23 Reason For Visit: Schizoaffective disorder Interim History: Met with patient; discussed with team; reviewed chart on approach pt said you're not a doctor and you don't work here... Supervisor Detasseling Crew tried to explain the contrary, including that pt has seen underwriter solicitation director on the unit all last week, however, she repeated the same, turned away and would not engage further. refusing meds Mental Status Exam Mental Status Exam Narrative: Pt is alert and oriented; behavior is guarded, not cooperative though calm; patient is not in distress; dressed in casual attire, disheveled, malodorous; mood is described as irritable and affect congruent; eye contact limited; Speech is normal rate, volume and prosody and not pressured; some mild psychomotor agitation and retardation both present; thought process goal directed; Thought content is on paranoid thoughts; no SI/HI expressed. Internally preoccupied. Patients insight and judgment impaired. Diagnostics Vital Signs (24Hr): BMI result Body Mass Index 34.1 Labs 06/25/23 17:59 06/25/23 17:59 Medications Medications Current Medications Al Hydroxide/Mg Hydroxide (Magnesium Hydrox/Alum Hydrox 30 Ml Oral.Susp) 30 ml PO Q6H PRN PRN Reason: Heartburn/Nausea Albuterol Sulfate (Albuterol Sulfate 90 Mcg 8 Gm Inhaler) 2 puff INHALE Q4H PRN PRN Reason: Wheezing Duloxetine HCl (Duloxetine Hcl 20 Mg Capsule.Dr) 40 mg PO DAILY [facility] Last Admin: 07/06/23 08:31 Dose: Not Given Hydroxyzine HCl (Hydroxyzine Hcl 25 Mg Tablet) 25 mg PO Q6H PRN PRN Reason: Anxiety Ibuprofen (Ibuprofen 600 Mg Tablet) 600 mg PO Q6H PRN PRN Reason: moderate to severe pain Last Admin: 07/06/23 20:29 Dose: 600 mg Lorazepam (Lorazepam 0.5 Mg Tablet) 0.5 mg PO BID [facility] Last Admin: 07/06/23 20:28 Dose: Not Given Magnesium Hydroxide (Milk Of Magnesia 30 Ml Oral.Susp) 30 ml PO DAILY PRN PRN Reason: Constipation Metformin HCl (Metformin Hcl 500 Mg Tablet) 500 mg PO BID [facility] Last Admin: 07/06/23 20:28 Dose: Not Given Metronidazole (Metronidazole 0.75 % Gel 45 Gm Tube) 1 appl TOPICAL DAILY [facility] Last Admin: 07/06/23 08:31 Dose: Not Given Multivitamins/Vitamin C (Multivitamin Tablet) 1 tab PO DAILY [facility] Last Admin: 07/06/23 08:32 Dose: Not Given Nicotine Polacrilex (Nicotine Polacrilex Lozenge 2 Mg Lozenge) 2 mg BUCCAL Q2H PRN PRN Reason: Nicotine Cravings Olanzapine (Olanzapine Odt 10 Mg Tab.Rapdis) 20 mg TRANSLINGU DAILY [facility] Last Admin: 07/06/23 08:32 Dose: Not Given Olanzapine (Olanzapine Odt 10 Mg Tab.Rapdis) 10 mg TRANSLINGU DAILY PRN PRN Reason: Psychosis Trazodone HCl (Trazodone Hcl 50 Mg Tablet) 50 mg PO BEDTIME MRX1 PRN PRN Reason: Insomnia Vitamin D (Cholecalciferol (Vitamin D3) 10 Mcg Tablet) 10 mcg PO DAILY [facility] Last Admin: 07/06/23 08:31 Dose: Not Given Allergies Allergies Allergy/AdvReac Type Severity Reaction Status Date / Time acetaminophen [From TYLENOL] Allergy Intermediate HIVES Verified 08/28/22 09:48 meperidine [From Demerol] Allergy Unknown Verified 08/28/22 09:48 Assessment & Plan Assessment & Plan (1) Schizoaffective disorder: Status: Acute Code(s): F25.9 - Schizoaffective disorder, unspecified Assessment and Plan: Presents with decompensation of schizoaffective disorder, while in group living environment. Not adherence appears to be a factor. Patient not engaging with interview, evaluation or adherent with medications ie declining same. Unable to care for self. Being held on a Section 12 that will on 07/02/23. In the meantime will try and establish report and encourage medication adherence. Plan 06/29: encourage med adherence. 07/01/23: Ensure tid Will file Section VII on 07/02/23. 07/02/23: HCP activated today. Martine Elder is willing to serve in this role. [phone]. 07/03/23: Encourage treatment compliance 07/04/23 Encourage treatment compliance, begin process of validating HCP with the courts in order to provide pt with psychopharmacology options. 07/05/23 Encourage treatment. 07/07 remains disorganized in speech and behavior; refusing meds, paranoid -continue process of affirming HCP Patient educated on: diagnosis Informed Consent: does not understand Reason for continued inpatient stay Substantial Risk for: inability to function Time Spent With Patient Time: Total time managing care of this patient today ____ minutes.
[2023-07-07 10:00] VITALS: RESP 18
[2023-07-07] MEDS: Ibuprofen 600 MG TABLET PO (10:17)
--- NOTE | 2023-07-07 10:27 | HO.PSYCHPN ---
Subjective Subjective Date of Service: 07/06/23 Reason For Visit: Schizoaffective disorder Subjective Notes: Conditional Voluntary Healthcare Proxy: Yes Guardianship: No Medical Problems Affecting Mental Status: No Interim History: Pt seen and reviewed with team. She remains resistant to care, meds, delusional and paranoid about treatment, grandiose regarding owning all pharmacies and her authority to deem meds contraband. She has intermittent irritability and overall mood is labile. She is confrontive at times with team and peers. She continues to believe that all on the unit are male and uses male pronouns to address this. Medication Compliance: No Side effects from medications: No Attending Groups: Intermittent Review of Systems Acute medical concerns: No Medical Review of Systems: unchanged Review of Systems Review of Systems Yes all other systems are reviewed and are negative and Unobtainable due to mental status Mental Status Exam Mental Status Exam Patient Appearance: Fatigued Patient Orientation: Person and Place Level of Consciousness: Alert Patient Behavior: Talkative, Suspicious, Belligerent, Anxious, Fearful, Avoidant, Distractible and Good Eye Contact Mood Description: Labile Affect Description: Labile Patient Cognition Impaired: Yes Ability to Follow Directions: Fair Speech Pattern: Spontaneous Speech Memory Description: Remote Impaired and Episodic Impaired Hallucinations: Auditory (??) Delusions: Paranoid Ideation and Present Perceptual Disturbances: Derealization Thought Process: Illogical, Distracted and Rumination Thought Content: positive for Flight of Ideas, positive for Circumstantial, positive for Perseveration, positive for Thought Blocking, positive for Tangential and positive for Disorganized Depressive Symptoms: Increased Anxiety, Increased Irritability, Unhappiness, Difficulty Concentrating and Back Pain Abnormal Motor Activity Signs and Symptoms: Restlessness Judgement: Poor Diagnostics Vital Signs (24Hr): Vital Signs - 24 hr 07/07/23 10:00 Respiratory Rate 18 BMI result Body Mass Index 34.1 Labs 06/25/23 17:59 06/25/23 17:59 Medications Medications Current Medications Al Hydroxide/Mg Hydroxide (Magnesium Hydrox/Alum Hydrox 30 Ml Oral.Susp) 30 ml PO Q6H PRN PRN Reason: Heartburn/Nausea Albuterol Sulfate (Albuterol Sulfate 90 Mcg 8 Gm Inhaler) 2 puff INHALE Q4H PRN PRN Reason: Wheezing Duloxetine HCl (Duloxetine Hcl 20 Mg Capsule.Dr) 40 mg PO DAILY [facility] Last Admin: 07/07/23 09:45 Dose: Not Given Hydroxyzine HCl (Hydroxyzine Hcl 25 Mg Tablet) 25 mg PO Q6H PRN PRN Reason: Anxiety Ibuprofen (Ibuprofen 600 Mg Tablet) 600 mg PO Q6H PRN PRN Reason: moderate to severe pain Last Admin: 07/07/23 10:17 Dose: 600 mg Lorazepam (Lorazepam 0.5 Mg Tablet) 0.5 mg PO BID [facility] Last Admin: 07/07/23 09:45 Dose: Not Given Magnesium Hydroxide (Milk Of Magnesia 30 Ml Oral.Susp) 30 ml PO DAILY PRN PRN Reason: Constipation Metformin HCl (Metformin Hcl 500 Mg Tablet) 500 mg PO BID [facility] Last Admin: 07/07/23 09:45 Dose: Not Given Metronidazole (Metronidazole 0.75 % Gel 45 Gm Tube) 1 appl TOPICAL DAILY [facility] Last Admin: 07/07/23 09:45 Dose: Not Given Multivitamins/Vitamin C (Multivitamin Tablet) 1 tab PO DAILY [facility] Last Admin: 07/07/23 09:45 Dose: Not Given Nicotine Polacrilex (Nicotine Polacrilex Lozenge 2 Mg Lozenge) 2 mg BUCCAL Q2H PRN PRN Reason: Nicotine Cravings Olanzapine (Olanzapine Odt 10 Mg Tab.Rapdis) 20 mg TRANSLINGU DAILY [facility] Last Admin: 07/07/23 09:45 Dose: Not Given Olanzapine (Olanzapine Odt 10 Mg Tab.Rapdis) 10 mg TRANSLINGU DAILY PRN PRN Reason: Psychosis Trazodone HCl (Trazodone Hcl 50 Mg Tablet) 50 mg PO BEDTIME MRX1 PRN PRN Reason: Insomnia Vitamin D (Cholecalciferol (Vitamin D3) 10 Mcg Tablet) 10 mcg PO DAILY [facility] Last Admin: 07/07/23 09:45 Dose: Not Given Allergies Allergies Allergy/AdvReac Type Severity Reaction Status Date / Time acetaminophen [From TYLENOL] Allergy Intermediate HIVES Verified 08/28/22 09:48 meperidine [From Demerol] Allergy Unknown Verified 08/28/22 09:48 Assessment & Plan Assessment & Plan (1) Schizoaffective disorder: Status: Acute Code(s): F25.9 - Schizoaffective disorder, unspecified Assessment and Plan: Presents with decompensation of schizoaffective disorder, while in group living environment. Not adherence appears to be a factor. Patient not engaging with interview, evaluation or adherent with medications ie declining same. Unable to care for self. Being held on a Section 12 that will on 07/02/23. In the meantime will try and establish report and encourage medication adherence. Plan 06/29: encourage med adherence. 07/01/23: Ensure tid Will file Section VII on 07/02/23. 07/02/23: HCP activated today. Martine Elder is willing to serve in this role. [phone]. 07/03/23: Encourage treatment compliance 07/04/23 Encourage treatment compliance, begin process of validating HCP with the courts in order to provide pt with psychopharmacology options. 07/05/23 Encourage treatment. 07/06/23 Encourage treatment, begin work on validation of HCP so we may begin medications. Informed Consent: does not understand Reason for continued inpatient stay Substantial Risk for: rapid decompensation Time Spent With Patient Time: Total time managing care of this patient today ____ minutes.
[2023-07-08 08:20] VITALS: RESP 20
[2023-07-08] MEDS: Ibuprofen 600 MG TABLET PO (09:07)
--- NOTE | 2023-07-08 16:15 | PC.NURSE ---
Assumed care of pt at 15:30, pt laying in bed with eyes closed, resp even and unlabored. Plan of care ongoing.
--- NOTE | 2023-07-08 16:30 | P.PNPSI_ITS ---
Subjective Subjective Date of Service: 07/08/23 Reason For Visit: Schizoaffective disorder Subjective Notes: Conditional Voluntary Healthcare Proxy: Yes Guardianship: No Medical Problems Affecting Mental Status: No Interim History: Sivan is not my name I am not telling you my name, now go . Intermittently visable in milieu and spending time in her room. Irritable, labile, approachable at times, but expresses anger at other times. Continues to refuse medications. Team is working on HCP validation so medications can be given to treat schizoaffective disorder sx. By history, pt has recompensated on a psychotropic regime and has been able to be actively involved in her community. Medication Compliance: No Side effects from medications: No Attending Groups: No Review of Systems Acute medical concerns: No Medical Review of Systems: unchanged Review of Systems Review of Systems Yes Unobtainable due to mental status Mental Status Exam Mental Status Exam Patient Appearance: Fatigued Patient Orientation: Person and Place Level of Consciousness: Alert Patient Behavior: Talkative, Suspicious, Belligerent, Anxious, Fearful, Avoidant, Distractible and Good Eye Contact Mood Description: Labile Affect Description: Labile Patient Cognition Impaired: Yes Ability to Follow Directions: Fair Speech Pattern: Spontaneous Speech Memory Description: Remote Impaired and Episodic Impaired Hallucinations: Auditory (??) Delusions: Paranoid Ideation and Present Perceptual Disturbances: Derealization Thought Process: Illogical, Distracted and Rumination Thought Content: positive for Flight of Ideas, positive for Circumstantial, positive for Perseveration, positive for Thought Blocking, positive for Tangential and positive for Disorganized Depressive Symptoms: Increased Anxiety, Increased Irritability, Unhappiness, Difficulty Concentrating and Back Pain Abnormal Motor Activity Signs and Symptoms: Restlessness Judgement: Poor Diagnostics Vital Signs (24Hr): Vital Signs - 24 hr 07/08/23 08:20 Respiratory Rate 20 BMI result Body Mass Index 34.1 Labs 06/25/23 17:59 06/25/23 17:59 Medications Medications Current Medications Al Hydroxide/Mg Hydroxide (Magnesium Hydrox/Alum Hydrox 30 Ml Oral.Susp) 30 ml PO Q6H PRN PRN Reason: Heartburn/Nausea Albuterol Sulfate (Albuterol Sulfate 90 Mcg 8 Gm Inhaler) 2 puff INHALE Q4H PRN PRN Reason: Wheezing Duloxetine HCl (Duloxetine Hcl 20 Mg Capsule.Dr) 40 mg PO DAILY [facility] Last Admin: 07/08/23 09:01 Dose: Not Given Hydroxyzine HCl (Hydroxyzine Hcl 25 Mg Tablet) 25 mg PO Q6H PRN PRN Reason: Anxiety Ibuprofen (Ibuprofen 600 Mg Tablet) 600 mg PO Q6H PRN PRN Reason: moderate to severe pain Last Admin: 07/08/23 09:07 Dose: 600 mg Lorazepam (Lorazepam 0.5 Mg Tablet) 0.5 mg PO BID [facility] Last Admin: 07/08/23 09:02 Dose: Not Given Magnesium Hydroxide (Milk Of Magnesia 30 Ml Oral.Susp) 30 ml PO DAILY PRN PRN Reason: Constipation Metformin HCl (Metformin Hcl 500 Mg Tablet) 500 mg PO BID [facility] Last Admin: 07/08/23 09:02 Dose: Not Given Metronidazole (Metronidazole 0.75 % Gel 45 Gm Tube) 1 appl TOPICAL DAILY [facility] Last Admin: 07/08/23 09:02 Dose: Not Given Multivitamins/Vitamin C (Multivitamin Tablet) 1 tab PO DAILY [facility] Last Admin: 07/08/23 09:02 Dose: Not Given Nicotine Polacrilex (Nicotine Polacrilex Lozenge 2 Mg Lozenge) 2 mg BUCCAL Q2H PRN PRN Reason: Nicotine Cravings Olanzapine (Olanzapine Odt 10 Mg Tab.Rapdis) 20 mg TRANSLINGU DAILY [facility] Last Admin: 07/08/23 09:02 Dose: Not Given Olanzapine (Olanzapine Odt 10 Mg Tab.Rapdis) 10 mg TRANSLINGU DAILY PRN PRN Reason: Psychosis Trazodone HCl (Trazodone Hcl 50 Mg Tablet) 50 mg PO BEDTIME MRX1 PRN PRN Reason: Insomnia Vitamin D (Cholecalciferol (Vitamin D3) 10 Mcg Tablet) 10 mcg PO DAILY [facility] Last Admin: 07/08/23 09:01 Dose: Not Given Allergies Allergies Allergy/AdvReac Type Severity Reaction Status Date / Time acetaminophen [From TYLENOL] Allergy Intermediate HIVES Verified 08/28/22 09:48 meperidine [From Demerol] Allergy Unknown Verified 08/28/22 09:48 Assessment & Plan Assessment & Plan (1) Schizoaffective disorder: Status: Acute Code(s): F25.9 - Schizoaffective disorder, unspecified Assessment and Plan: Presents with decompensation of schizoaffective disorder, while in group living environment. Not adherence appears to be a factor. Patient not engaging with interview, evaluation or adherent with medications ie declining same. Unable to care for self. Being held on a Section 12 that will on 07/02/23. In the meantime will try and establish report and encourage medication adherence. Plan 06/29: encourage med adherence. 07/01/23: Ensure tid Will file Section VII on 07/02/23. 07/02/23: HCP activated today. Martine Elder is willing to serve in this role. [phone]. 07/03/23: Encourage treatment compliance 07/04/23 Encourage treatment compliance, begin process of validating HCP with the courts in order to provide pt with psychopharmacology options. 07/05/23 Encourage treatment. 07/07 remains disorganized in speech and behavior; refusing meds, paranoid -continue process of affirming HCP 07/08- Continue current plan. Informed Consent: does not understand Reason for continued inpatient stay Substantial Risk for: rapid decompensation Time Spent With Patient Time: Total time managing care of this patient today ____ minutes.
--- NOTE | 2023-07-08 19:52 | PC.NURSE ---
PT refusing all care including VS, EKG and scheduled medications.
[2023-07-09 08:42] VITALS: RESP 18
--- NOTE | 2023-07-09 09:45 | P.PNPSI_ITS ---
Subjective Subjective Date of Service: 07/09/23 Reason For Visit: Schizoaffective disorder Interim History: met with patient; discussed with team Patient refused to meet with racebook writer. Also refused vitals, meds, and other staff interaction frequent verbal outbursts in the milieu, however they quickly resolve and patient retreats back to room Mental Status Exam Mental Status Exam Narrative: Pt is alert and oriented; behavior is guarded, not cooperative though calm; patient is not in distress; dressed in casual attire, disheveled, malodorous; mood is described as irritable and affect congruent; eye contact limited; Speech is normal rate, volume and prosody and not pressured; some mild psychomotor agitation and retardation both present; thought process goal directed; Thought content is on paranoid thoughts; no SI/HI expressed. Internally preoccupied. Patients insight and judgment impaired. Diagnostics Vital Signs (24Hr): Vital Signs - 24 hr 07/09/23 08:42 Respiratory Rate 18 BMI result Body Mass Index 34.1 Labs 06/25/23 17:59 06/25/23 17:59 Medications Medications Current Medications Al Hydroxide/Mg Hydroxide (Magnesium Hydrox/Alum Hydrox 30 Ml Oral.Susp) 30 ml PO Q6H PRN PRN Reason: Heartburn/Nausea Albuterol Sulfate (Albuterol Sulfate 90 Mcg 8 Gm Inhaler) 2 puff INHALE Q4H PRN PRN Reason: Wheezing Duloxetine HCl (Duloxetine Hcl 20 Mg Capsule.Dr) 40 mg PO DAILY [facility] Last Admin: 07/09/23 08:45 Dose: Not Given Hydroxyzine HCl (Hydroxyzine Hcl 25 Mg Tablet) 25 mg PO Q6H PRN PRN Reason: Anxiety Ibuprofen (Ibuprofen 600 Mg Tablet) 600 mg PO Q6H PRN PRN Reason: moderate to severe pain Last Admin: 07/08/23 09:07 Dose: 600 mg Lorazepam (Lorazepam 0.5 Mg Tablet) 0.5 mg PO BID [facility] Last Admin: 07/09/23 08:45 Dose: Not Given Magnesium Hydroxide (Milk Of Magnesia 30 Ml Oral.Susp) 30 ml PO DAILY PRN PRN Reason: Constipation Metformin HCl (Metformin Hcl 500 Mg Tablet) 500 mg PO BID [facility] Last Admin: 07/09/23 08:45 Dose: Not Given Metronidazole (Metronidazole 0.75 % Gel 45 Gm Tube) 1 appl TOPICAL DAILY [facility] Last Admin: 07/09/23 08:45 Dose: Not Given Multivitamins/Vitamin C (Multivitamin Tablet) 1 tab PO DAILY [facility] Last Admin: 07/09/23 08:45 Dose: Not Given Nicotine Polacrilex (Nicotine Polacrilex Lozenge 2 Mg Lozenge) 2 mg BUCCAL Q2H PRN PRN Reason: Nicotine Cravings Olanzapine (Olanzapine Odt 10 Mg Tab.Rapdis) 20 mg TRANSLINGU DAILY [facility] Last Admin: 07/09/23 08:45 Dose: Not Given Olanzapine (Olanzapine Odt 10 Mg Tab.Rapdis) 10 mg TRANSLINGU DAILY PRN PRN Reason: Psychosis Trazodone HCl (Trazodone Hcl 50 Mg Tablet) 50 mg PO BEDTIME MRX1 PRN PRN Reason: Insomnia Vitamin D (Cholecalciferol (Vitamin D3) 10 Mcg Tablet) 10 mcg PO DAILY [facility] Last Admin: 07/09/23 08:45 Dose: Not Given Allergies Allergies Allergy/AdvReac Type Severity Reaction Status Date / Time acetaminophen [From TYLENOL] Allergy Intermediate HIVES Verified 08/28/22 09:48 meperidine [From Demerol] Allergy Unknown Verified 08/28/22 09:48 Assessment & Plan Assessment & Plan (1) Schizoaffective disorder: Status: Acute Code(s): F25.9 - Schizoaffective disorder, unspecified Assessment and Plan: Presents with decompensation of schizoaffective disorder, while in group living environment. Not adherence appears to be a factor. Patient not engaging with interview, evaluation or adherent with medications ie declining same. Unable to care for self. Being held on a Section 12 that will on 07/02/23. In the meantime will try and establish report and encourage medication adherence. Plan 06/29: encourage med adherence. 07/01/23: Ensure tid Will file Section VII on 07/02/23. 07/02/23: HCP activated today. Martine Elder is willing to serve in this role. [phone]. 07/03/23: Encourage treatment compliance 07/04/23 Encourage treatment compliance, begin process of validating HCP with the courts in order to provide pt with psychopharmacology options. 07/05/23 Encourage treatment. 07/07 remains disorganized in speech and behavior; refusing meds, paranoid -continue process of affirming HCP 07/08- Continue current plan. 07/09 continue current treatment plan Patient educated on: diagnosis Informed Consent: does not understand Reason for continued inpatient stay Substantial Risk for: inability to function Time Spent With Patient Time: Total time managing care of this patient today ____ minutes.
--- NOTE | 2023-07-09 21:11 | P.EN_ITS ---
Event Note Date of Service: 07/09/23 Event Note: Patient seen chart reviewed patient refusing to engage with this director underwriter sales paperwork completed regarding affirming healthcare proxy Time Spent With Patient Time: Total time managing care of this patient today ____ minutes.
[2023-07-10] MEDS: Ibuprofen 600 MG TABLET PO ×2 (01:32→08:30)
[2023-07-10 08:15] VITALS: RESP 18
--- NOTE | 2023-07-10 15:18 | HO.PSYCHPN ---
Subjective Subjective Date of Service: 07/10/23 Reason For Visit: Schizoaffective disorder Subjective Notes: Conditional Voluntary Healthcare Proxy: Yes Guardianship: No Medical Problems Affecting Mental Status: No Interim History: Irritable, hostile at times, responding to internal stimult. Inattentive to ADL's and hygiene, declines assist. Poor sleep per team-2 hours Continues to refuse medications. Process of health care proxy affirmation is ongoing. Pt's residential insurance inspector visited. Pt refused to meet with her. Medication Compliance: No Side effects from medications: No Attending Groups: No Review of Systems Acute medical concerns: No Medical Review of Systems: unchanged Review of Systems Review of Systems Yes Unobtainable due to mental status Mental Status Exam Mental Status Exam Patient Appearance: Fatigued Patient Orientation: Person and Place Level of Consciousness: Alert Patient Behavior: Talkative, Suspicious, Belligerent, Anxious, Fearful, Avoidant, Distractible and Good Eye Contact Mood Description: Labile Affect Description: Labile Patient Cognition Impaired: Yes Ability to Follow Directions: Fair Speech Pattern: Spontaneous Speech Memory Description: Remote Impaired and Episodic Impaired Hallucinations: Auditory (??) Delusions: Paranoid Ideation and Present Perceptual Disturbances: Derealization Thought Process: Illogical, Distracted and Rumination Thought Content: positive for Flight of Ideas, positive for Circumstantial, positive for Perseveration, positive for Thought Blocking, positive for Tangential and positive for Disorganized Depressive Symptoms: Increased Anxiety, Increased Irritability, Unhappiness, Difficulty Concentrating and Back Pain Abnormal Motor Activity Signs and Symptoms: Restlessness Judgement: Poor Diagnostics Vital Signs (24Hr): Vital Signs - 24 hr 07/10/23 08:15 Respiratory Rate 18 BMI result Body Mass Index 34.1 Labs 06/25/23 17:59 06/25/23 17:59 Medications Medications Current Medications Al Hydroxide/Mg Hydroxide (Magnesium Hydrox/Alum Hydrox 30 Ml Oral.Susp) 30 ml PO Q6H PRN PRN Reason: Heartburn/Nausea Albuterol Sulfate (Albuterol Sulfate 90 Mcg 8 Gm Inhaler) 2 puff INHALE Q4H PRN PRN Reason: Wheezing Duloxetine HCl (Duloxetine Hcl 20 Mg Capsule.Dr) 40 mg PO DAILY [facility] Last Admin: 07/10/23 10:11 Dose: Not Given Hydroxyzine HCl (Hydroxyzine Hcl 25 Mg Tablet) 25 mg PO Q6H PRN PRN Reason: Anxiety Ibuprofen (Ibuprofen 600 Mg Tablet) 600 mg PO Q6H PRN PRN Reason: moderate to severe pain Last Admin: 07/10/23 08:30 Dose: 600 mg Lorazepam (Lorazepam 0.5 Mg Tablet) 0.5 mg PO BID [facility] Last Admin: 07/10/23 10:12 Dose: Not Given Magnesium Hydroxide (Milk Of Magnesia 30 Ml Oral.Susp) 30 ml PO DAILY PRN PRN Reason: Constipation Metformin HCl (Metformin Hcl 500 Mg Tablet) 500 mg PO BID [facility] Last Admin: 07/10/23 10:12 Dose: Not Given Metronidazole (Metronidazole 0.75 % Gel 45 Gm Tube) 1 appl TOPICAL DAILY [facility] Last Admin: 07/10/23 10:12 Dose: Not Given Multivitamins/Vitamin C (Multivitamin Tablet) 1 tab PO DAILY [facility] Last Admin: 07/10/23 10:12 Dose: Not Given Nicotine Polacrilex (Nicotine Polacrilex Lozenge 2 Mg Lozenge) 2 mg BUCCAL Q2H PRN PRN Reason: Nicotine Cravings Olanzapine (Olanzapine Odt 10 Mg Tab.Rapdis) 20 mg TRANSLINGU DAILY [facility] Last Admin: 07/10/23 10:12 Dose: Not Given Olanzapine (Olanzapine Odt 10 Mg Tab.Rapdis) 10 mg TRANSLINGU DAILY PRN PRN Reason: Psychosis Trazodone HCl (Trazodone Hcl 50 Mg Tablet) 50 mg PO BEDTIME MRX1 PRN PRN Reason: Insomnia Vitamin D (Cholecalciferol (Vitamin D3) 10 Mcg Tablet) 10 mcg PO DAILY [facility] Last Admin: 07/10/23 10:11 Dose: Not Given Allergies Allergies Allergy/AdvReac Type Severity Reaction Status Date / Time acetaminophen [From TYLENOL] Allergy Intermediate HIVES Verified 08/28/22 09:48 meperidine [From Demerol] Allergy Unknown Verified 08/28/22 09:48 Assessment & Plan Assessment & Plan (1) Schizoaffective disorder: Status: Acute Code(s): F25.9 - Schizoaffective disorder, unspecified Assessment and Plan: Presents with decompensation of schizoaffective disorder, while in group living environment. Not adherence appears to be a factor. Patient not engaging with interview, evaluation or adherent with medications ie declining same. Unable to care for self. Being held on a Section 12 that will on 07/02/23. In the meantime will try and establish report and encourage medication adherence. Plan 06/29: encourage med adherence. 07/01/23: Ensure tid Will file Section VII on 07/02/23. 07/02/23: HCP activated today. Martine Elder is willing to serve in this role. [phone]. 07/03/23: Encourage treatment compliance 07/04/23 Encourage treatment compliance, begin process of validating HCP with the courts in order to provide pt with psychopharmacology options. 07/05/23 Encourage treatment. 07/07 remains disorganized in speech and behavior; refusing meds, paranoid -continue process of affirming HCP 07/08- Continue current plan. 07/09: Contineu current plan of affirmation of health care proxy. Informed Consent: does not understand Reason for continued inpatient stay Substantial Risk for: rapid decompensation Time Spent With Patient Time: Total time managing care of this patient today ____ minutes.
[2023-07-11] MEDS: Ibuprofen 600 MG TABLET PO (08:04)
[2023-07-11 08:40] VITALS: RESP 16
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
[2023-07-11] MEDS: Haloperidol Lactate 5 MG/ML VIAL 10 MG IM (16:40)
[2023-07-11] MEDS: diphenhydrAMINE HCL 50 MG/ML VIAL IM (16:40)
[2023-07-11] MEDS: LORazepam 2 MG/ML VIAL IM (16:40)
--- NOTE | 2023-07-11 17:26 | PM.EVENT ---
Event Note Date of Service: 07/15/23 Event Note: Pt seen post restraint. She is resting in room 505, drinking apple juice and listening to headphones. She is not wanting to process the restraint or discuss further at this time. No current distress noted, resting and comfortable. Does motion for this financial underwriter to leave after a short period of time. Time Spent With Patient Time: Total time managing care of this patient today ____ minutes.
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
[2023-07-12] MEDS: Ibuprofen 600 MG TABLET PO ×3 (08:46→20:53)
--- NOTE | 2023-07-12 08:49 | HO.PSYCHPN ---
Subjective Subjective Date of Service: 07/12/23 Reason For Visit: Schizoaffective disorder Subjective Notes: Conditional Voluntary Interim History: Patient was seen and discussed in rounds today. She is irritable, loud and refused to be interviewed. She has been aggressive towards others. No changes or additions were made today Review of Systems Review of Systems Yes Unobtainable due to mental status Mental Status Exam Mental Status Exam Narrative: Unable to do formal exam. She is loud, irritable and uncooperative Diagnostics Vital Signs (24Hr): BMI result Body Mass Index 34.1 Labs 06/25/23 17:59 06/25/23 17:59 Medications Medications Current Medications Al Hydroxide/Mg Hydroxide (Magnesium Hydrox/Alum Hydrox 30 Ml Oral.Susp) 30 ml PO Q6H PRN PRN Reason: Heartburn/Nausea Albuterol Sulfate (Albuterol Sulfate 90 Mcg 8 Gm Inhaler) 2 puff INHALE Q4H PRN PRN Reason: Wheezing Duloxetine HCl (Duloxetine Hcl 20 Mg Capsule.Dr) 40 mg PO DAILY [facility] Last Admin: 07/11/23 09:16 Dose: Not Given Hydroxyzine HCl (Hydroxyzine Hcl 25 Mg Tablet) 25 mg PO Q6H PRN PRN Reason: Anxiety Ibuprofen (Ibuprofen 600 Mg Tablet) 600 mg PO Q6H PRN PRN Reason: moderate to severe pain Last Admin: 07/12/23 08:46 Dose: 600 mg Lorazepam (Lorazepam 0.5 Mg Tablet) 0.5 mg PO BID [facility] Last Admin: 07/11/23 20:27 Dose: Not Given Magnesium Hydroxide (Milk Of Magnesia 30 Ml Oral.Susp) 30 ml PO DAILY PRN PRN Reason: Constipation Metformin HCl (Metformin Hcl 500 Mg Tablet) 500 mg PO BID [facility] Last Admin: 07/11/23 20:27 Dose: Not Given Metronidazole (Metronidazole 0.75 % Gel 45 Gm Tube) 1 appl TOPICAL DAILY [facility] Last Admin: 07/11/23 09:16 Dose: Not Given Multivitamins/Vitamin C (Multivitamin Tablet) 1 tab PO DAILY [facility] Last Admin: 07/11/23 09:16 Dose: Not Given Nicotine Polacrilex (Nicotine Polacrilex Lozenge 2 Mg Lozenge) 2 mg BUCCAL Q2H PRN PRN Reason: Nicotine Cravings Olanzapine (Olanzapine Odt 10 Mg Tab.Rapdis) 20 mg TRANSLINGU DAILY [facility] Last Admin: 07/11/23 09:16 Dose: Not Given Olanzapine (Olanzapine Odt 10 Mg Tab.Rapdis) 10 mg TRANSLINGU DAILY PRN PRN Reason: Psychosis Trazodone HCl (Trazodone Hcl 50 Mg Tablet) 50 mg PO BEDTIME MRX1 PRN PRN Reason: Insomnia Vitamin D (Cholecalciferol (Vitamin D3) 10 Mcg Tablet) 10 mcg PO DAILY [facility] Last Admin: 07/11/23 09:16 Dose: Not Given Allergies Allergies Allergy/AdvReac Type Severity Reaction Status Date / Time acetaminophen [From TYLENOL] Allergy Intermediate HIVES Verified 08/28/22 09:48 meperidine [From Demerol] Allergy Unknown Verified 08/28/22 09:48 Assessment & Plan Assessment & Plan (1) Schizoaffective disorder: Status: Acute Code(s): F25.9 - Schizoaffective disorder, unspecified Assessment and Plan: Presents with decompensation of schizoaffective disorder, while in group living environment. Not adherence appears to be a factor. Patient not engaging with interview, evaluation or adherent with medications ie declining same. Unable to care for self. Being held on a Section 12 that will on 07/02/23. In the meantime will try and establish report and encourage medication adherence. Plan 06/29: encourage med adherence. 07/01/23: Ensure tid Will file Section VII on 07/02/23. 07/02/23: HCP activated today. Martine Elder is willing to serve in this role. [phone]. 07/03/23: Encourage treatment compliance 07/04/23 Encourage treatment compliance, begin process of validating HCP with the courts in order to provide pt with psychopharmacology options. 07/05/23 Encourage treatment. 07/07 remains disorganized in speech and behavior; refusing meds, paranoid -continue process of affirming HCP 07/08- Continue current plan. 07/09 continue current treatment plan 07/11/23 continue current treatment plan 07/12: Continue current regimen and plans Reason for continued inpatient stay Substantial Risk for: inability to function and med/psych decompensation Time Spent With Patient Time: Total time managing care of this patient today ____ minutes.
[2023-07-13] MEDS: Ibuprofen 600 MG TABLET PO ×2 (05:02→20:15)
--- NOTE | 2023-07-13 08:49 | P.PNPSI_ITS ---
Subjective Subjective Date of Service: 07/13/23 Reason For Visit: Schizoaffective disorder Subjective Notes: Conditional Voluntary Interim History: Patient was seen and discussed in rounds today. She continues to be guarded, agitated at times. She is delusional. Not taking any medications. When asked to be seen she gave me the middle finger and walked away. Medication Compliance: No Attending Groups: No Review of Systems Review of Systems Yes Unobtainable due to mental status Mental Status Exam Mental Status Exam Narrative: She refused to be seen/examined. She is delusional and psychotic. Judgment is impaired. Diagnostics Vital Signs (24Hr): BMI result Body Mass Index 34.1 Labs 06/25/23 17:59 06/25/23 17:59 Medications Medications Current Medications Al Hydroxide/Mg Hydroxide (Magnesium Hydrox/Alum Hydrox 30 Ml Oral.Susp) 30 ml PO Q6H PRN PRN Reason: Heartburn/Nausea Albuterol Sulfate (Albuterol Sulfate 90 Mcg 8 Gm Inhaler) 2 puff INHALE Q4H PRN PRN Reason: Wheezing Duloxetine HCl (Duloxetine Hcl 20 Mg Capsule.Dr) 40 mg PO DAILY [facility] Last Admin: 07/13/23 08:05 Dose: Not Given Hydroxyzine HCl (Hydroxyzine Hcl 25 Mg Tablet) 25 mg PO Q6H PRN PRN Reason: Anxiety Ibuprofen (Ibuprofen 600 Mg Tablet) 600 mg PO Q6H PRN PRN Reason: moderate to severe pain Last Admin: 07/13/23 05:02 Dose: 600 mg Lorazepam (Lorazepam 0.5 Mg Tablet) 0.5 mg PO BID [facility] Last Admin: 07/13/23 08:05 Dose: Not Given Magnesium Hydroxide (Milk Of Magnesia 30 Ml Oral.Susp) 30 ml PO DAILY PRN PRN Reason: Constipation Metformin HCl (Metformin Hcl 500 Mg Tablet) 500 mg PO BID [facility] Last Admin: 07/13/23 08:05 Dose: Not Given Metronidazole (Metronidazole 0.75 % Gel 45 Gm Tube) 1 appl TOPICAL DAILY [facility] Last Admin: 07/13/23 08:05 Dose: Not Given Multivitamins/Vitamin C (Multivitamin Tablet) 1 tab PO DAILY [facility] Last Admin: 07/13/23 08:05 Dose: Not Given Nicotine Polacrilex (Nicotine Polacrilex Lozenge 2 Mg Lozenge) 2 mg BUCCAL Q2H PRN PRN Reason: Nicotine Cravings Olanzapine (Olanzapine Odt 10 Mg Tab.Rapdis) 20 mg TRANSLINGU DAILY [facility] Last Admin: 07/13/23 08:05 Dose: Not Given Olanzapine (Olanzapine Odt 10 Mg Tab.Rapdis) 10 mg TRANSLINGU DAILY PRN PRN Reason: Psychosis Trazodone HCl (Trazodone Hcl 50 Mg Tablet) 50 mg PO BEDTIME MRX1 PRN PRN Reason: Insomnia Vitamin D (Cholecalciferol (Vitamin D3) 10 Mcg Tablet) 10 mcg PO DAILY [facility] Last Admin: 07/13/23 08:05 Dose: Not Given Allergies Allergies Allergy/AdvReac Type Severity Reaction Status Date / Time acetaminophen [From TYLENOL] Allergy Intermediate HIVES Verified 08/28/22 09:48 meperidine [From Demerol] Allergy Unknown Verified 08/28/22 09:48 Assessment & Plan Assessment & Plan (1) Schizoaffective disorder: Status: Acute Code(s): F25.9 - Schizoaffective disorder, unspecified Assessment and Plan: Presents with decompensation of schizoaffective disorder, while in group living environment. Not adherence appears to be a factor. Patient not engaging with interview, evaluation or adherent with medications ie declining same. Unable to care for self. Being held on a Section 12 that will on 07/02/23. In the meantime will try and establish report and encourage medication adherence. Plan 06/29: encourage med adherence. 07/01/23: Ensure tid Will file Section VII on 07/02/23. 07/02/23: HCP activated today. Martine Elder is willing to serve in this role. [phone]. 07/03/23: Encourage treatment compliance 07/04/23 Encourage treatment compliance, begin process of validating HCP with the courts in order to provide pt with psychopharmacology options. 07/05/23 Encourage treatment. 07/07 remains disorganized in speech and behavior; refusing meds, paranoid -continue process of affirming HCP 07/08- Continue current plan. 07/09 continue current treatment plan 07/11/23 continue current treatment plan 07/12: Continue current regimen and plans 07/13: Continue current regimen and plans Reason for continued inpatient stay Substantial Risk for: inability to function and med/psych decompensation Time Spent With Patient Time: Total time managing care of this patient today ____ minutes.
[2023-07-14 09:25] VITALS: RESP 18
[2023-07-14] MEDS: Ibuprofen 600 MG TABLET PO (11:14)
--- NOTE | 2023-07-14 13:28 | P.PNPSI_ITS ---
Subjective Subjective Date of Service: 07/14/23 Reason For Visit: Schizoaffective disorder Subjective Notes: Conditional Voluntary Interim History: Patient was seen and discussed in rounds today. She continues to be guarded, agitated at times. She is delusional. Not taking any medications. She continues refused to be interviewed Medication Compliance: No Attending Groups: No Review of Systems Review of Systems Yes Unobtainable due to mental status Mental Status Exam Mental Status Exam Narrative: Continues to appear psychotic and delusional and very disorganized and would not interact. Diagnostics Vital Signs (24Hr): Vital Signs - 24 hr 07/14/23 09:25 Respiratory Rate 18 BMI result Body Mass Index 34.1 Labs 06/25/23 17:59 06/25/23 17:59 Medications Medications Current Medications Al Hydroxide/Mg Hydroxide (Magnesium Hydrox/Alum Hydrox 30 Ml Oral.Susp) 30 ml PO Q6H PRN PRN Reason: Heartburn/Nausea Albuterol Sulfate (Albuterol Sulfate 90 Mcg 8 Gm Inhaler) 2 puff INHALE Q4H PRN PRN Reason: Wheezing Duloxetine HCl (Duloxetine Hcl 20 Mg Capsule.Dr) 40 mg PO DAILY [facility] Last Admin: 07/14/23 09:23 Dose: Not Given Hydroxyzine HCl (Hydroxyzine Hcl 25 Mg Tablet) 25 mg PO Q6H PRN PRN Reason: Anxiety Ibuprofen (Ibuprofen 600 Mg Tablet) 600 mg PO Q6H PRN PRN Reason: moderate to severe pain Last Admin: 07/14/23 11:14 Dose: 600 mg Lorazepam (Lorazepam 0.5 Mg Tablet) 0.5 mg PO BID [facility] Last Admin: 07/14/23 09:24 Dose: Not Given Magnesium Hydroxide (Milk Of Magnesia 30 Ml Oral.Susp) 30 ml PO DAILY PRN PRN Reason: Constipation Metformin HCl (Metformin Hcl 500 Mg Tablet) 500 mg PO BID [facility] Last Admin: 07/14/23 09:24 Dose: Not Given Metronidazole (Metronidazole 0.75 % Gel 45 Gm Tube) 1 appl TOPICAL DAILY [facility] Last Admin: 07/14/23 09:24 Dose: Not Given Multivitamins/Vitamin C (Multivitamin Tablet) 1 tab PO DAILY [facility] Last Admin: 07/14/23 09:24 Dose: Not Given Nicotine Polacrilex (Nicotine Polacrilex Lozenge 2 Mg Lozenge) 2 mg BUCCAL Q2H PRN PRN Reason: Nicotine Cravings Olanzapine (Olanzapine Odt 10 Mg Tab.Rapdis) 20 mg TRANSLINGU DAILY [facility] Last Admin: 07/14/23 09:24 Dose: Not Given Olanzapine (Olanzapine Odt 10 Mg Tab.Rapdis) 10 mg TRANSLINGU DAILY PRN PRN Reason: Psychosis Trazodone HCl (Trazodone Hcl 50 Mg Tablet) 50 mg PO BEDTIME MRX1 PRN PRN Reason: Insomnia Vitamin D (Cholecalciferol (Vitamin D3) 10 Mcg Tablet) 10 mcg PO DAILY [facility] Last Admin: 07/14/23 09:23 Dose: Not Given Allergies Allergies Allergy/AdvReac Type Severity Reaction Status Date / Time acetaminophen [From TYLENOL] Allergy Intermediate HIVES Verified 08/28/22 09:48 meperidine [From Demerol] Allergy Unknown Verified 08/28/22 09:48 Assessment & Plan Assessment & Plan (1) Schizoaffective disorder: Status: Acute Code(s): F25.9 - Schizoaffective disorder, unspecified Assessment and Plan: Presents with decompensation of schizoaffective disorder, while in group living environment. Not adherence appears to be a factor. Patient not engaging with interview, evaluation or adherent with medications ie declining same. Unable to care for self. Being held on a Section 12 that will on 07/02/23. In the meantime will try and establish report and encourage medication adherence. Plan 06/29: encourage med adherence. 07/01/23: Ensure tid Will file Section VII on 07/02/23. 07/02/23: HCP activated today. Martine Elder is willing to serve in this role. [phone]. 07/03/23: Encourage treatment compliance 07/04/23 Encourage treatment compliance, begin process of validating HCP with the courts in order to provide pt with psychopharmacology options. 07/05/23 Encourage treatment. 07/07 remains disorganized in speech and behavior; refusing meds, paranoid -continue process of affirming HCP 07/08- Continue current plan. 07/09 continue current treatment plan 07/11/23 continue current treatment plan 07/12: Continue current regimen and plans 07/13: Continue current regimen and plans 07/14: Continue current plans and regimen Reason for continued inpatient stay Substantial Risk for: inability to function and med/psych decompensation Time Spent With Patient Time: Total time managing care of this patient today ____ minutes.
[2023-07-15 08:25] VITALS: RESP 18
--- NOTE | 2023-07-15 16:29 | P.PNPSI_ITS ---
Subjective Subjective Date of Service: 07/15/23 Reason For Visit: Schizoaffective disorder Subjective Notes: Conditional Voluntary Healthcare Proxy: Yes Guardianship: No Medical Problems Affecting Mental Status: No Interim History: Pt seen, discussed with team. Pt continues with paranoia, responding to internal stimuli. Refusing ADL's and shower, declining vital signs. Pt is restricted from the kitchen due to poor ADL's.HCP was affirmed today. Review of meds later in the day with pt's HCP Martine Elder. Martine hopes pt can begin Sustenna again as she had good success and quality of life while on this medication. Full med list reviewed. Medication Compliance: No Side effects from medications: No Attending Groups: No Review of Systems Acute medical concerns: No Medical Review of Systems: unchanged Review of Systems Review of Systems Yes Unobtainable due to mental status Mental Status Exam Mental Status Exam Narrative: Continues to appear psychotic and delusional and very disorganized and would not interact. Diagnostics Vital Signs (24Hr): Vital Signs - 24 hr 07/15/23 08:25 Respiratory Rate 18 BMI result Body Mass Index 34.1 Labs 06/25/23 17:59 06/25/23 17:59 Medications Medications Current Medications Al Hydroxide/Mg Hydroxide (Magnesium Hydrox/Alum Hydrox 30 Ml Oral.Susp) 30 ml PO Q6H PRN PRN Reason: Heartburn/Nausea Albuterol Sulfate (Albuterol Sulfate 90 Mcg 8 Gm Inhaler) 2 puff INHALE Q4H PRN PRN Reason: Wheezing Duloxetine HCl (Duloxetine Hcl 20 Mg Capsule.Dr) 40 mg PO DAILY [facility] Last Admin: 07/15/23 09:59 Dose: Not Given Hydroxyzine HCl (Hydroxyzine Hcl 25 Mg Tablet) 25 mg PO Q6H PRN PRN Reason: Anxiety Ibuprofen (Ibuprofen 600 Mg Tablet) 600 mg PO Q6H PRN PRN Reason: moderate to severe pain Last Admin: 07/14/23 11:14 Dose: 600 mg Lorazepam (Lorazepam 0.5 Mg Tablet) 0.5 mg PO BID [facility] Last Admin: 07/15/23 09:59 Dose: Not Given Magnesium Hydroxide (Milk Of Magnesia 30 Ml Oral.Susp) 30 ml PO DAILY PRN PRN Reason: Constipation Metformin HCl (Metformin Hcl 500 Mg Tablet) 500 mg PO BID [facility] Last Admin: 07/15/23 09:59 Dose: Not Given Metronidazole (Metronidazole 0.75 % Gel 45 Gm Tube) 1 appl TOPICAL DAILY [facility] Last Admin: 07/15/23 09:59 Dose: Not Given Multivitamins/Vitamin C (Multivitamin Tablet) 1 tab PO DAILY [facility] Last Admin: 07/15/23 09:59 Dose: Not Given Nicotine Polacrilex (Nicotine Polacrilex Lozenge 2 Mg Lozenge) 2 mg BUCCAL Q2H PRN PRN Reason: Nicotine Cravings Olanzapine (Olanzapine Odt 10 Mg Tab.Rapdis) 20 mg TRANSLINGU DAILY [facility] Last Admin: 07/15/23 10:18 Dose: Not Given Olanzapine (Olanzapine Odt 10 Mg Tab.Rapdis) 10 mg TRANSLINGU DAILY PRN PRN Reason: Psychosis Trazodone HCl (Trazodone Hcl 50 Mg Tablet) 50 mg PO BEDTIME MRX1 PRN PRN Reason: Insomnia Vitamin D (Cholecalciferol (Vitamin D3) 10 Mcg Tablet) 10 mcg PO DAILY [facility] Last Admin: 07/15/23 09:59 Dose: Not Given Allergies Allergies Allergy/AdvReac Type Severity Reaction Status Date / Time acetaminophen [From TYLENOL] Allergy Intermediate HIVES Verified 08/28/22 09:48 meperidine [From Demerol] Allergy Unknown Verified 08/28/22 09:48 Assessment & Plan Assessment & Plan (1) Schizoaffective disorder: Status: Acute Code(s): F25.9 - Schizoaffective disorder, unspecified Assessment and Plan: Presents with decompensation of schizoaffective disorder, while in group living environment. Not adherence appears to be a factor. Patient not engaging with interview, evaluation or adherent with medications ie declining same. Unable to care for self. Being held on a Section 12 that will on 07/02/23. In the meantime will try and establish report and encourage medication adherence. Plan 06/29: encourage med adherence. 07/01/23: Ensure tid Will file Section VII on 07/02/23. 07/02/23: HCP activated today. Martine Elder is willing to serve in this role. [phone]. 07/03/23: Encourage treatment compliance 07/04/23 Encourage treatment compliance, begin process of validating HCP with the courts in order to provide pt with psychopharmacology options. 07/05/23 Encourage treatment. 07/07 remains disorganized in speech and behavior; refusing meds, paranoid -continue process of affirming HCP 07/08- Continue current plan. 07/09 continue current treatment plan 07/11/23 continue current treatment plan 07/12: Continue current regimen and plans 07/13: Continue current regimen and plans 07/14: Continue current plans and regimen 07/15/23: Continue current tx. Initiate regime 07/16. Informed Consent: does not understand Reason for continued inpatient stay Substantial Risk for: rapid decompensation Time Spent With Patient Time: Total time managing care of this patient today ____ minutes.
[2023-07-15 18:00] VITALS: RESP 18
[2023-07-16] MEDS: Ibuprofen 600 MG TABLET PO (08:29)
[2023-07-16 08:43] VITALS: RESP 18
[2023-07-16] MEDS: Paliperidone Palmitate 156 MG/ML SYRINGE IM (13:16)
--- NOTE | 2023-07-16 18:56 | P.PNPSI_ITS ---
Subjective Subjective Date of Service: 07/16/23 Reason For Visit: Schizoaffective disorder Subjective Notes: Conditional Voluntary Healthcare Proxy: Yes Guardianship: No Medical Problems Affecting Mental Status: No Interim History: HCP activated on 07/15. Invega Sustenna 156 mg given without incident. Discussed with pt that Martine and her family are wanting her back in the family group of activity, that Martine, Travis, and the kids would like her to begin visiting again, and Kaykay and Eric would like her to visit as well. Encouraged pt to re-establish her treatment so she may benefit from this family involvement. Martine also asked that she be told that she would protect her and not allow her to be harmed and would always watch out for her health. Pt responded, yes, I know this, and I know all of you will too, that is why I came for a long time. Medication Compliance: Yes Side effects from medications: No Attending Groups: Intermittent Review of Systems Acute medical concerns: No Medical Review of Systems: unchanged Review of Systems Review of Systems Yes Unobtainable due to mental status Mental Status Exam Mental Status Exam Narrative: Continues to appear psychotic and delusional and very disorganized and would not interact for a long period of time, however, able to talk briefly and listen to support and encouragment, Diagnostics Vital Signs (24Hr): Vital Signs - 24 hr 07/16/23 08:43 Respiratory Rate 18 BMI result Body Mass Index 34.1 Labs 06/25/23 17:59 06/25/23 17:59 Medications Medications Current Medications Al Hydroxide/Mg Hydroxide (Magnesium Hydrox/Alum Hydrox 30 Ml Oral.Susp) 30 ml PO Q6H PRN PRN Reason: Heartburn/Nausea Albuterol Sulfate (Albuterol Sulfate 90 Mcg 8 Gm Inhaler) 2 puff INHALE Q4H PRN PRN Reason: Wheezing Duloxetine HCl (Duloxetine Hcl 20 Mg Capsule.Dr) 40 mg PO DAILY [facility] Last Admin: 07/16/23 08:29 Dose: Not Given Hydroxyzine HCl (Hydroxyzine Hcl 25 Mg Tablet) 25 mg PO Q6H PRN PRN Reason: Anxiety Ibuprofen (Ibuprofen 600 Mg Tablet) 600 mg PO Q6H PRN PRN Reason: moderate to severe pain Last Admin: 07/16/23 08:29 Dose: 600 mg Lorazepam (Lorazepam 0.5 Mg Tablet) 0.5 mg PO BID [facility] Last Admin: 07/16/23 08:30 Dose: Not Given Magnesium Hydroxide (Milk Of Magnesia 30 Ml Oral.Susp) 30 ml PO DAILY PRN PRN Reason: Constipation Metformin HCl (Metformin Hcl 500 Mg Tablet) 500 mg PO BID [facility] Last Admin: 07/16/23 08:30 Dose: Not Given Metronidazole (Metronidazole 0.75 % Gel 45 Gm Tube) 1 appl TOPICAL DAILY [facility] Last Admin: 07/16/23 08:30 Dose: Not Given Multivitamins/Vitamin C (Multivitamin Tablet) 1 tab PO DAILY [facility] Last Admin: 07/16/23 08:30 Dose: Not Given Nicotine Polacrilex (Nicotine Polacrilex Lozenge 2 Mg Lozenge) 2 mg BUCCAL Q2H PRN PRN Reason: Nicotine Cravings Olanzapine (Olanzapine Odt 10 Mg Tab.Rapdis) 20 mg TRANSLINGU DAILY [facility] Last Admin: 07/16/23 08:30 Dose: Not Given Olanzapine (Olanzapine Odt 10 Mg Tab.Rapdis) 10 mg TRANSLINGU DAILY PRN PRN Reason: Psychosis Trazodone HCl (Trazodone Hcl 50 Mg Tablet) 50 mg PO BEDTIME MRX1 PRN PRN Reason: Insomnia Vitamin D (Cholecalciferol (Vitamin D3) 10 Mcg Tablet) 10 mcg PO DAILY [facility] Last Admin: 07/16/23 08:29 Dose: Not Given Allergies Allergies Allergy/AdvReac Type Severity Reaction Status Date / Time acetaminophen [From TYLENOL] Allergy Intermediate HIVES Verified 08/28/22 09:48 meperidine [From Demerol] Allergy Unknown Verified 08/28/22 09:48 Assessment & Plan Assessment & Plan (1) Schizoaffective disorder: Status: Acute Code(s): F25.9 - Schizoaffective disorder, unspecified Assessment and Plan: Presents with decompensation of schizoaffective disorder, while in group living environment. Not adherence appears to be a factor. Patient not engaging with interview, evaluation or adherent with medications ie declining same. Unable to care for self. Being held on a Section 12 that will on 07/02/23. In the meantime will try and establish report and encourage medication adherence. Plan 06/29: encourage med adherence. 07/01/23: Ensure tid Will file Section VII on 07/02/23. 07/02/23: HCP activated today. Martine Elder is willing to serve in this role. [phone]. 07/03/23: Encourage treatment compliance 07/04/23 Encourage treatment compliance, begin process of validating HCP with the courts in order to provide pt with psychopharmacology options. 07/05/23 Encourage treatment. 07/07 remains disorganized in speech and behavior; refusing meds, paranoid -continue process of affirming HCP 07/08- Continue current plan. 07/09 continue current treatment plan 07/11/23 continue current treatment plan 07/12: Continue current regimen and plans 07/13: Continue current regimen and plans 07/14: Continue current plans and regimen 07/15/23: Continue current tx. Initiate regime 07/16. 07/16/23: Invega Sustenna initiated at 156 mg. Encourage treatment. Informed Consent: does not understand Reason for continued inpatient stay Substantial Risk for: rapid decompensation Time Spent With Patient Time: Total time managing care of this patient today ____ minutes.
[2023-07-16 19:03] VITALS: RESP 18
[2023-07-17 08:23] VITALS: RESP 18
--- NOTE | 2023-07-17 12:06 | HO.PSYCHPN ---
Subjective Subjective Date of Service: 07/17/23 Reason For Visit: Schizoaffective disorder Subjective Notes: Conditional Voluntary Healthcare Proxy: No Guardianship: No Medical Problems Affecting Mental Status: No Interim History: Pt declined to meet today. She is visable in milieu. Had a visit from a friend today. She continues to decline to shower. Medication Compliance: Intermittent Side effects from medications: No Attending Groups: No Review of Systems Acute medical concerns: No Medical Review of Systems: unchanged Review of Systems Review of Systems Yes Unobtainable due to mental status Diagnostics Vital Signs (24Hr): Vital Signs - 24 hr 07/16/23 19:03 07/17/23 08:23 Respiratory Rate 18 18 BMI result Body Mass Index 34.1 Labs 06/25/23 17:59 06/25/23 17:59 Medications Medications Current Medications Al Hydroxide/Mg Hydroxide (Magnesium Hydrox/Alum Hydrox 30 Ml Oral.Susp) 30 ml PO Q6H PRN PRN Reason: Heartburn/Nausea Albuterol Sulfate (Albuterol Sulfate 90 Mcg 8 Gm Inhaler) 2 puff INHALE Q4H PRN PRN Reason: Wheezing Duloxetine HCl (Duloxetine Hcl 20 Mg Capsule.Dr) 40 mg PO DAILY [facility] Last Admin: 07/17/23 08:23 Dose: Not Given Hydroxyzine HCl (Hydroxyzine Hcl 25 Mg Tablet) 25 mg PO Q6H PRN PRN Reason: Anxiety Ibuprofen (Ibuprofen 600 Mg Tablet) 600 mg PO Q6H PRN PRN Reason: moderate to severe pain Last Admin: 07/16/23 08:29 Dose: 600 mg Lorazepam (Lorazepam 0.5 Mg Tablet) 0.5 mg PO BID [facility] Last Admin: 07/17/23 08:23 Dose: Not Given Magnesium Hydroxide (Milk Of Magnesia 30 Ml Oral.Susp) 30 ml PO DAILY PRN PRN Reason: Constipation Metformin HCl (Metformin Hcl 500 Mg Tablet) 500 mg PO BID [facility] Last Admin: 07/17/23 08:23 Dose: Not Given Metronidazole (Metronidazole 0.75 % Gel 45 Gm Tube) 1 appl TOPICAL DAILY [facility] Last Admin: 07/17/23 08:24 Dose: Not Given Multivitamins/Vitamin C (Multivitamin Tablet) 1 tab PO DAILY [facility] Last Admin: 07/17/23 08:24 Dose: Not Given Nicotine Polacrilex (Nicotine Polacrilex Lozenge 2 Mg Lozenge) 2 mg BUCCAL Q2H PRN PRN Reason: Nicotine Cravings Olanzapine (Olanzapine Odt 10 Mg Tab.Rapdis) 20 mg TRANSLINGU DAILY [facility] Last Admin: 07/17/23 08:25 Dose: Not Given Olanzapine (Olanzapine Odt 10 Mg Tab.Rapdis) 10 mg TRANSLINGU DAILY PRN PRN Reason: Psychosis Trazodone HCl (Trazodone Hcl 50 Mg Tablet) 50 mg PO BEDTIME MRX1 PRN PRN Reason: Insomnia Vitamin D (Cholecalciferol (Vitamin D3) 10 Mcg Tablet) 10 mcg PO DAILY [facility] Last Admin: 07/17/23 08:23 Dose: Not Given Allergies Allergies Allergy/AdvReac Type Severity Reaction Status Date / Time acetaminophen [From TYLENOL] Allergy Intermediate HIVES Verified 08/28/22 09:48 meperidine [From Demerol] Allergy Unknown Verified 08/28/22 09:48 Assessment & Plan Assessment & Plan (1) Schizoaffective disorder: Status: Acute Code(s): F25.9 - Schizoaffective disorder, unspecified Assessment and Plan: Presents with decompensation of schizoaffective disorder, while in group living environment. Not adherence appears to be a factor. Patient not engaging with interview, evaluation or adherent with medications ie declining same. Unable to care for self. Being held on a Section 12 that will on 07/02/23. In the meantime will try and establish report and encourage medication adherence. Plan 06/29: encourage med adherence. 07/01/23: Ensure tid Will file Section VII on 07/02/23. 07/02/23: HCP activated today. Martine Elder is willing to serve in this role. [phone]. 07/03/23: Encourage treatment compliance 07/04/23 Encourage treatment compliance, begin process of validating HCP with the courts in order to provide pt with psychopharmacology options. 07/05/23 Encourage treatment. 07/07 remains disorganized in speech and behavior; refusing meds, paranoid -continue process of affirming HCP 07/08- Continue current plan. 07/09 continue current treatment plan 07/11/23 continue current treatment plan 07/12: Continue current regimen and plans 07/13: Continue current regimen and plans 07/14: Continue current plans and regimen 2/20/24: Continue current tx. Initiate regime 07/16. 07/17/23: Continue to encourage treatment. Patient educated on: therapeutic strategies Informed Consent: does not understand Reason for continued inpatient stay Substantial Risk for: rapid decompensation Time Spent With Patient Time: Total time managing care of this patient today ____ minutes.
[2023-07-18 08:46] VITALS: RESP 18
--- NOTE | 2023-07-18 16:12 | P.PNPSI_ITS ---
Subjective Subjective Date of Service: 07/18/23 Reason For Visit: Schizoaffective disorder Subjective Notes: Conditional Voluntary Healthcare Proxy: Yes Guardianship: No Medical Problems Affecting Mental Status: No Interim History: Visable at times in milieu today. Declines to meet. Denies questions. Asks for food and drink options. Medication Compliance: Intermittent Side effects from medications: No Attending Groups: No Review of Systems Acute medical concerns: No Medical Review of Systems: unchanged Review of Systems Review of Systems Yes Unobtainable due to mental status Mental Status Exam Mental Status Exam Narrative: Continues to appear psychotic and delusional and very disorganized and would not interact for a long period of time, however, able to talk briefly and listen to support and encouragment, Diagnostics Vital Signs (24Hr): Vital Signs - 24 hr 07/18/23 08:46 Respiratory Rate 18 BMI result Body Mass Index 34.1 Labs 06/25/23 17:59 06/25/23 17:59 Medications Medications Current Medications Al Hydroxide/Mg Hydroxide (Magnesium Hydrox/Alum Hydrox 30 Ml Oral.Susp) 30 ml PO Q6H PRN PRN Reason: Heartburn/Nausea Albuterol Sulfate (Albuterol Sulfate 90 Mcg 8 Gm Inhaler) 2 puff INHALE Q4H PRN PRN Reason: Wheezing Duloxetine HCl (Duloxetine Hcl 20 Mg Capsule.Dr) 40 mg PO DAILY [facility] Last Admin: 07/18/23 09:25 Dose: Not Given Hydroxyzine HCl (Hydroxyzine Hcl 25 Mg Tablet) 25 mg PO Q6H PRN PRN Reason: Anxiety Ibuprofen (Ibuprofen 600 Mg Tablet) 600 mg PO Q6H PRN PRN Reason: moderate to severe pain Last Admin: 07/16/23 08:29 Dose: 600 mg Lorazepam (Lorazepam 0.5 Mg Tablet) 0.5 mg PO BID [facility] Last Admin: 07/18/23 09:25 Dose: Not Given Magnesium Hydroxide (Milk Of Magnesia 30 Ml Oral.Susp) 30 ml PO DAILY PRN PRN Reason: Constipation Metformin HCl (Metformin Hcl 500 Mg Tablet) 500 mg PO BID [facility] Last Admin: 07/18/23 09:25 Dose: Not Given Metronidazole (Metronidazole 0.75 % Gel 45 Gm Tube) 1 appl TOPICAL DAILY [facility] Last Admin: 07/18/23 09:25 Dose: Not Given Multivitamins/Vitamin C (Multivitamin Tablet) 1 tab PO DAILY [facility] Last Admin: 07/18/23 09:26 Dose: Not Given Nicotine Polacrilex (Nicotine Polacrilex Lozenge 2 Mg Lozenge) 2 mg BUCCAL Q2H PRN PRN Reason: Nicotine Cravings Olanzapine (Olanzapine Odt 10 Mg Tab.Rapdis) 20 mg TRANSLINGU DAILY [facility] Last Admin: 07/18/23 09:26 Dose: Not Given Olanzapine (Olanzapine Odt 10 Mg Tab.Rapdis) 10 mg TRANSLINGU DAILY PRN PRN Reason: Psychosis Trazodone HCl (Trazodone Hcl 50 Mg Tablet) 50 mg PO BEDTIME MRX1 PRN PRN Reason: Insomnia Vitamin D (Cholecalciferol (Vitamin D3) 10 Mcg Tablet) 10 mcg PO DAILY [facility] Last Admin: 07/18/23 09:25 Dose: Not Given Allergies Allergies Allergy/AdvReac Type Severity Reaction Status Date / Time acetaminophen [From TYLENOL] Allergy Intermediate HIVES Verified 08/28/22 09:48 meperidine [From Demerol] Allergy Unknown Verified 08/28/22 09:48 Assessment & Plan Assessment & Plan (1) Schizoaffective disorder: Status: Acute Code(s): F25.9 - Schizoaffective disorder, unspecified Assessment and Plan: Presents with decompensation of schizoaffective disorder, while in group living environment. Not adherence appears to be a factor. Patient not engaging with interview, evaluation or adherent with medications ie declining same. Unable to care for self. Being held on a Section 12 that will on 07/02/23. In the meantime will try and establish report and encourage medication adherence. Plan 06/29: encourage med adherence. 07/01/23: Ensure tid Will file Section VII on 07/02/23. 07/02/23: HCP activated today. Martine Elder is willing to serve in this role. [phone]. 07/03/23: Encourage treatment compliance 07/04/23 Encourage treatment compliance, begin process of validating HCP with the courts in order to provide pt with psychopharmacology options. 07/05/23 Encourage treatment. 07/07 remains disorganized in speech and behavior; refusing meds, paranoid -continue process of affirming HCP 07/08- Continue current plan. 07/09 continue current treatment plan 07/11/23 continue current treatment plan 07/12: Continue current regimen and plans 07/13: Continue current regimen and plans 07/14: Continue current plans and regimen 07/15/23: Continue current tx. Initiate regime 07/16. 07/17/23: Continue to encourage treatment. 07/18/23: Add prn Zyprexa IM if she refuses HS dosing Reason for continued inpatient stay Substantial Risk for: rapid decompensation Time Spent With Patient Time: Total time managing care of this patient today ____ minutes.
[2023-07-18] MEDS: Ibuprofen 600 MG TABLET PO (19:21)
[2023-07-19] MEDS: Ibuprofen 600 MG TABLET PO (05:49)
[2023-07-19 11:01] VITALS: RESP 16
[2023-07-19] MEDS: OLANZapine 10 MG VIAL 20 MG IM (12:08)
--- NOTE | 2023-07-19 14:55 | HO.PSYCHPN ---
Subjective Subjective Date of Service: 07/19/23 Reason For Visit: Schizoaffective disorder Interim History: Patient discussed. Walked away from examiner when approached and refused to talk. She continues to refuse PO Zyprexa. HCP affirmed. IM Zyprexa administered. Declines to meet. [place] yelling F you at the RN after she received the IM Zyprexa. Didn't resist and was cooperative with the administration of IM. Medication Compliance: No Review of Systems Review of Systems joint, muscle, bone pain reported. Pt will not accept intervention as she believes she owns all of the pharmacies and all of the meds are contraband. Yes all other systems are reviewed and are negative and Unobtainable due to mental status Mental Status Exam Mental Status Exam Narrative: Continues to appear psychotic and delusional and very disorganized and would not interact for a long period of time, however, able to talk briefly and listen to support and encouragment, Patient Appearance: Fatigued Patient Orientation: Person and Place Level of Consciousness: Alert Patient Behavior: Talkative, Suspicious, Belligerent, Anxious, Fearful, Avoidant, Distractible and Good Eye Contact Mood Description: Labile Affect Description: Labile Patient Cognition Impaired: Yes Ability to Follow Directions: Fair Speech Pattern: Spontaneous Speech Memory Description: Remote Impaired and Episodic Impaired Diagnostics Vital Signs (24Hr): Vital Signs - 24 hr 07/19/23 11:01 Respiratory Rate 16 BMI result Body Mass Index 34.1 Labs 06/25/23 17:59 06/25/23 17:59 Medications Medications Current Medications Al Hydroxide/Mg Hydroxide (Magnesium Hydrox/Alum Hydrox 30 Ml Oral.Susp) 30 ml PO Q6H PRN PRN Reason: Heartburn/Nausea Albuterol Sulfate (Albuterol Sulfate 90 Mcg 8 Gm Inhaler) 2 puff INHALE Q4H PRN PRN Reason: Wheezing Duloxetine HCl (Duloxetine Hcl 20 Mg Capsule.Dr) 40 mg PO DAILY [facility] Last Admin: 07/19/23 12:15 Dose: Not Given Hydroxyzine HCl (Hydroxyzine Hcl 25 Mg Tablet) 25 mg PO Q6H PRN PRN Reason: Anxiety Ibuprofen (Ibuprofen 600 Mg Tablet) 600 mg PO Q6H PRN PRN Reason: moderate to severe pain Last Admin: 07/19/23 05:49 Dose: 600 mg Lorazepam (Lorazepam 0.5 Mg Tablet) 0.5 mg PO BID [facility] Last Admin: 07/19/23 12:15 Dose: Not Given Magnesium Hydroxide (Milk Of Magnesia 30 Ml Oral.Susp) 30 ml PO DAILY PRN PRN Reason: Constipation Metformin HCl (Metformin Hcl 500 Mg Tablet) 500 mg PO BID [facility] Last Admin: 07/19/23 12:14 Dose: Not Given Metronidazole (Metronidazole 0.75 % Gel 45 Gm Tube) 1 appl TOPICAL DAILY [facility] Last Admin: 07/19/23 12:14 Dose: Not Given Multivitamins/Vitamin C (Multivitamin Tablet) 1 tab PO DAILY [facility] Last Admin: 07/19/23 12:14 Dose: Not Given Nicotine Polacrilex (Nicotine Polacrilex Lozenge 2 Mg Lozenge) 2 mg BUCCAL Q2H PRN PRN Reason: Nicotine Cravings Olanzapine (Olanzapine Odt 10 Mg Tab.Rapdis) 20 mg TRANSLINGU DAILY [facility] Last Admin: 07/19/23 12:00 Dose: Not Given Olanzapine (Olanzapine Odt 10 Mg Tab.Rapdis) 10 mg TRANSLINGU DAILY PRN PRN Reason: Psychosis Olanzapine (Olanzapine 10 Mg Vial) 20 mg IM DAILY PRN PRN Reason: if pt refuses PO Zydis-HCP activation Last Admin: 07/19/23 12:08 Dose: 20 mg Trazodone HCl (Trazodone Hcl 50 Mg Tablet) 50 mg PO BEDTIME MRX1 PRN PRN Reason: Insomnia Vitamin D (Cholecalciferol (Vitamin D3) 10 Mcg Tablet) 10 mcg PO DAILY [facility] Last Admin: 07/19/23 12:15 Dose: Not Given Allergies Allergies Allergy/AdvReac Type Severity Reaction Status Date / Time acetaminophen [From TYLENOL] Allergy Intermediate HIVES Verified 08/28/22 09:48 meperidine [From Demerol] Allergy Unknown Verified 08/28/22 09:48 Assessment & Plan Assessment & Plan (1) Schizoaffective disorder: Status: Acute Code(s): F25.9 - Schizoaffective disorder, unspecified Assessment and Plan: Presents with decompensation of schizoaffective disorder, while in group living environment. Not adherence appears to be a factor. Patient not engaging with interview, evaluation or adherent with medications ie declining same. Unable to care for self. Being held on a Section 12 that will on 07/02/23. In the meantime will try and establish report and encourage medication adherence. Plan 06/29: encourage med adherence. 07/01/23: Ensure tid Will file Section VII on 07/02/23. 07/02/23: HCP activated today. Martine Elder is willing to serve in this role. [phone]. 07/03/23: Encourage treatment compliance 07/04/23 Encourage treatment compliance, begin process of validating HCP with the courts in order to provide pt with psychopharmacology options. 07/05/23 Encourage treatment. 07/07 remains disorganized in speech and behavior; refusing meds, paranoid -continue process of affirming HCP 07/08- Continue current plan. 07/09 continue current treatment plan 07/11/23 continue current treatment plan 07/12: Continue current regimen and plans 07/13: Continue current regimen and plans 07/14: Continue current plans and regimen 07/15/23: Continue current tx. Initiate regime 07/16. 07/17/23: Continue to encourage treatment. 07/18/23: Add prn Zyprexa IM if she refuses HS dosing 07/19: Continue current management and treatment plan. Reason for continued inpatient stay Substantial Risk for: inability to function and rapid decompensation Time Spent With Patient Time: Total time managing care of this patient today ____ minutes.
--- NOTE | 2023-07-19 15:41 | PC.NURSE ---
Prior to medication administration I spoke with the patient's affirmed HCP Martine Elder at [phone] regarding medication orders. The affirmed HCP Martine Elder verbalized that she spoke with provider Carolin Live NP on 07/18/2023 regarding Zyprexa. Martine Elder stated that she was aware and approved for patient to start Zyprexa injections today if/when patient refuses daily scheduled Zyprexa PO.
[2023-07-20] MEDS: Ibuprofen 600 MG TABLET PO ×3 (00:43→21:11)
[2023-07-20 09:41] VITALS: RESP 16
[2023-07-20] MEDS: OLANZapine ODT 10 MG TAB.RAPDIS 20 MG TRANSLINGU (10:57)
--- NOTE | 2023-07-20 14:52 | HO.PSYCHPN ---
Subjective Subjective Date of Service: 07/20/23 Reason For Visit: Schizoaffective disorder Interim History: Patient discussed. Yelled at this examiner no you're not! when he went into the room and introduced himself as the doctor environmental marketer. Patient took her Zydis PO today and didn't need an IM. Security show of force has helped and no restraints or hands on needed. Cooperated with the mouth check as well. Declines to meet. Review of Systems Review of Systems joint, muscle, bone pain reported. Pt will not accept intervention as she believes she owns all of the pharmacies and all of the meds are contraband. Yes all other systems are reviewed and are negative and Unobtainable due to mental status Mental Status Exam Mental Status Exam Narrative: Continues to appear psychotic and delusional and very disorganized and would not interact for a long period of time, however, able to talk briefly and listen to support and encouragment, Patient Appearance: Fatigued Patient Orientation: Person and Place Level of Consciousness: Alert Patient Behavior: Talkative, Suspicious, Belligerent, Anxious, Fearful, Avoidant, Distractible and Good Eye Contact Mood Description: Labile Affect Description: Labile Patient Cognition Impaired: Yes Ability to Follow Directions: Fair Speech Pattern: Spontaneous Speech Memory Description: Remote Impaired and Episodic Impaired Diagnostics Vital Signs (24Hr): Vital Signs - 24 hr 07/20/23 09:41 Respiratory Rate 16 BMI result Body Mass Index 34.1 Labs 06/25/23 17:59 06/25/23 17:59 Medications Medications Current Medications Al Hydroxide/Mg Hydroxide (Magnesium Hydrox/Alum Hydrox 30 Ml Oral.Susp) 30 ml PO Q6H PRN PRN Reason: Heartburn/Nausea Albuterol Sulfate (Albuterol Sulfate 90 Mcg 8 Gm Inhaler) 2 puff INHALE Q4H PRN PRN Reason: Wheezing Duloxetine HCl (Duloxetine Hcl 20 Mg Capsule.Dr) 40 mg PO DAILY [facility] Last Admin: 07/20/23 10:18 Dose: Not Given Hydroxyzine HCl (Hydroxyzine Hcl 25 Mg Tablet) 25 mg PO Q6H PRN PRN Reason: Anxiety Ibuprofen (Ibuprofen 600 Mg Tablet) 600 mg PO Q6H PRN PRN Reason: moderate to severe pain Last Admin: 07/20/23 06:07 Dose: 600 mg Lorazepam (Lorazepam 0.5 Mg Tablet) 0.5 mg PO BID [facility] Last Admin: 07/20/23 10:18 Dose: Not Given Magnesium Hydroxide (Milk Of Magnesia 30 Ml Oral.Susp) 30 ml PO DAILY PRN PRN Reason: Constipation Metformin HCl (Metformin Hcl 500 Mg Tablet) 500 mg PO BID [facility] Last Admin: 07/20/23 10:19 Dose: Not Given Metronidazole (Metronidazole 0.75 % Gel 45 Gm Tube) 1 appl TOPICAL DAILY [facility] Last Admin: 07/20/23 10:19 Dose: Not Given Multivitamins/Vitamin C (Multivitamin Tablet) 1 tab PO DAILY [facility] Last Admin: 07/20/23 10:19 Dose: Not Given Nicotine Polacrilex (Nicotine Polacrilex Lozenge 2 Mg Lozenge) 2 mg BUCCAL Q2H PRN PRN Reason: Nicotine Cravings Olanzapine (Olanzapine Odt 10 Mg Tab.Rapdis) 20 mg TRANSLINGU DAILY [facility] Last Admin: 07/20/23 10:57 Dose: 20 mg Olanzapine (Olanzapine Odt 10 Mg Tab.Rapdis) 10 mg TRANSLINGU DAILY PRN PRN Reason: Psychosis Olanzapine (Olanzapine 10 Mg Vial) 20 mg IM DAILY PRN PRN Reason: if pt refuses PO Zydis-HCP activation Last Admin: 07/19/23 12:08 Dose: 20 mg Trazodone HCl (Trazodone Hcl 50 Mg Tablet) 50 mg PO BEDTIME MRX1 PRN PRN Reason: Insomnia Vitamin D (Cholecalciferol (Vitamin D3) 10 Mcg Tablet) 10 mcg PO DAILY [facility] Last Admin: 07/20/23 10:18 Dose: Not Given Allergies Allergies Allergy/AdvReac Type Severity Reaction Status Date / Time acetaminophen [From TYLENOL] Allergy Intermediate HIVES Verified 08/28/22 09:48 meperidine [From Demerol] Allergy Unknown Verified 08/28/22 09:48 Assessment & Plan Assessment & Plan (1) Schizoaffective disorder: Status: Acute Code(s): F25.9 - Schizoaffective disorder, unspecified Assessment and Plan: Presents with decompensation of schizoaffective disorder, while in group living environment. Not adherence appears to be a factor. Patient not engaging with interview, evaluation or adherent with medications ie declining same. Unable to care for self. Being held on a Section 12 that will on 07/02/23. In the meantime will try and establish report and encourage medication adherence. Plan 06/29: encourage med adherence. 07/01/23: Ensure tid Will file Section VII on 07/02/23. 07/02/23: HCP activated today. Martine Elder is willing to serve in this role. [phone]. 07/03/23: Encourage treatment compliance 07/04/23 Encourage treatment compliance, begin process of validating HCP with the courts in order to provide pt with psychopharmacology options. 07/05/23 Encourage treatment. 07/07 remains disorganized in speech and behavior; refusing meds, paranoid -continue process of affirming HCP 07/08- Continue current plan. 07/09 continue current treatment plan 07/11/23 continue current treatment plan 07/12: Continue current regimen and plans 07/13: Continue current regimen and plans 07/14: Continue current plans and regimen 07/15/23: Continue current tx. Initiate regime 07/16. 07/17/23: Continue to encourage treatment. 07/18/23: Add prn Zyprexa IM if she refuses HS dosing 07/19: Continue current management and treatment plan. 07/20: Continue current management and treatment plan. Reason for continued inpatient stay Substantial Risk for: inability to function and rapid decompensation Time Spent With Patient Time: Total time managing care of this patient today ____ minutes.
[2023-07-21 06:00] VITALS: RESP 18
[2023-07-21] MEDS: Ibuprofen 600 MG TABLET PO ×2 (08:22→22:00)
[2023-07-21] MEDS: OLANZapine ODT 10 MG TAB.RAPDIS 20 MG TRANSLINGU (09:49)
--- NOTE | 2023-07-21 21:57 | P.PNPSI_ITS ---
Subjective Subjective Date of Service: 07/21/23 Reason For Visit: Schizoaffective disorder Subjective Notes: Conditional Voluntary Healthcare Proxy: Yes Guardianship: No Medical Problems Affecting Mental Status: No Interim History: Visable. Poor attention to ADL's. Poor communication with some breakthrough agitation, profanity and decreased impulse control. Pacing, listening to music. Disconnected with milieu, but with some attention to the environment. Medication Compliance: Yes Side effects from medications: No Attending Groups: No Review of Systems Acute medical concerns: No Medical Review of Systems: unchanged Review of Systems Review of Systems Yes Unobtainable due to mental status Mental Status Exam Mental Status Exam Patient Appearance: Disheveled Patient Orientation: Person and Place Level of Consciousness: Alert Patient Behavior: Talkative, Suspicious, Belligerent, Anxious, Fearful, Avoidant, Distractible and Good Eye Contact Mood Description: Labile Affect Description: Labile Patient Cognition Impaired: Yes Ability to Follow Directions: Fair Speech Pattern: Spontaneous Speech Memory Description: Remote Impaired and Episodic Impaired Diagnostics Vital Signs (24Hr): Vital Signs - 24 hr 07/21/23 06:00 Respiratory Rate 18 BMI result Body Mass Index 34.1 Labs 06/25/23 17:59 06/25/23 17:59 Medications Medications Current Medications Al Hydroxide/Mg Hydroxide (Magnesium Hydrox/Alum Hydrox 30 Ml Oral.Susp) 30 ml PO Q6H PRN PRN Reason: Heartburn/Nausea Albuterol Sulfate (Albuterol Sulfate 90 Mcg 8 Gm Inhaler) 2 puff INHALE Q4H PRN PRN Reason: Wheezing Duloxetine HCl (Duloxetine Hcl 20 Mg Capsule.Dr) 40 mg PO DAILY [facility] Last Admin: 07/21/23 10:12 Dose: Not Given Hydroxyzine HCl (Hydroxyzine Hcl 25 Mg Tablet) 25 mg PO Q6H PRN PRN Reason: Anxiety Ibuprofen (Ibuprofen 600 Mg Tablet) 600 mg PO Q6H PRN PRN Reason: moderate to severe pain Last Admin: 07/21/23 08:22 Dose: 600 mg Lorazepam (Lorazepam 0.5 Mg Tablet) 0.5 mg PO BID [facility] Last Admin: 07/21/23 20:03 Dose: Not Given Magnesium Hydroxide (Milk Of Magnesia 30 Ml Oral.Susp) 30 ml PO DAILY PRN PRN Reason: Constipation Metformin HCl (Metformin Hcl 500 Mg Tablet) 500 mg PO BID [facility] Last Admin: 07/21/23 20:03 Dose: Not Given Metronidazole (Metronidazole 0.75 % Gel 45 Gm Tube) 1 appl TOPICAL DAILY [facility] Last Admin: 07/21/23 10:13 Dose: Not Given Multivitamins/Vitamin C (Multivitamin Tablet) 1 tab PO DAILY [facility] Last Admin: 07/21/23 10:13 Dose: Not Given Nicotine Polacrilex (Nicotine Polacrilex Lozenge 2 Mg Lozenge) 2 mg BUCCAL Q2H PRN PRN Reason: Nicotine Cravings Olanzapine (Olanzapine Odt 10 Mg Tab.Rapdis) 20 mg TRANSLINGU DAILY [facility] Last Admin: 07/21/23 09:49 Dose: 20 mg Olanzapine (Olanzapine Odt 10 Mg Tab.Rapdis) 10 mg TRANSLINGU DAILY PRN PRN Reason: Psychosis Olanzapine (Olanzapine 10 Mg Vial) 20 mg IM DAILY PRN PRN Reason: if pt refuses PO Zydis-HCP activation Last Admin: 07/19/23 12:08 Dose: 20 mg Trazodone HCl (Trazodone Hcl 50 Mg Tablet) 50 mg PO BEDTIME MRX1 PRN PRN Reason: Insomnia Vitamin D (Cholecalciferol (Vitamin D3) 10 Mcg Tablet) 10 mcg PO DAILY [facility] Last Admin: 07/21/23 10:12 Dose: Not Given Allergies Allergies Allergy/AdvReac Type Severity Reaction Status Date / Time acetaminophen [From TYLENOL] Allergy Intermediate HIVES Verified 08/28/22 09:48 meperidine [From Demerol] Allergy Unknown Verified 08/28/22 09:48 Assessment & Plan Assessment & Plan (1) Schizoaffective disorder: Status: Acute Code(s): F25.9 - Schizoaffective disorder, unspecified Assessment and Plan: Presents with decompensation of schizoaffective disorder, while in group living environment. Not adherence appears to be a factor. Patient not engaging with interview, evaluation or adherent with medications ie declining same. Unable to care for self. Being held on a Section 12 that will on 07/02/23. In the meantime will try and establish report and encourage medication adherence. Plan 06/29: encourage med adherence. 07/01/23: Ensure tid Will file Section VII on 07/02/23. 07/02/23: HCP activated today. Martine Elder is willing to serve in this role. [phone]. 07/03/23: Encourage treatment compliance 07/04/23 Encourage treatment compliance, begin process of validating HCP with the courts in order to provide pt with psychopharmacology options. 07/05/23 Encourage treatment. 07/07 remains disorganized in speech and behavior; refusing meds, paranoid -continue process of affirming HCP 07/08- Continue current plan. 07/09 continue current treatment plan 07/11/23 continue current treatment plan 07/12: Continue current regimen and plans 07/13: Continue current regimen and plans 07/14: Continue current plans and regimen 07/15/23: Continue current tx. Initiate regime 07/16. 07/17/23: Continue to encourage treatment. 07/18/23: Add prn Zyprexa IM if she refuses HS dosing 07/19: Continue current management and treatment plan. 07/20: Continue current management and treatment plan. 07/21: Continue tx. Informed Consent: does not understand Reason for continued inpatient stay Substantial Risk for: rapid decompensation Time Spent With Patient Time: Total time managing care of this patient today ____ minutes.
[2023-07-22] MEDS: Ibuprofen 600 MG TABLET PO ×2 (05:35→15:20)
[2023-07-22 09:37] VITALS: RESP 18
[2023-07-22] MEDS: OLANZapine ODT 10 MG TAB.RAPDIS 20 MG TRANSLINGU (09:55)
--- NOTE | 2023-07-22 09:57 | P.PNPSI_ITS ---
Subjective Subjective Date of Service: 07/22/23 Reason For Visit: Schizoaffective disorder Subjective Notes: Conditional Voluntary Healthcare Proxy: Yes Guardianship: No Medical Problems Affecting Mental Status: No Interim History: Visable in milieu. Declines to meet Irritable angry and labile at times. Asks for needs to be met. No interest in process discussion Caustic when approached. ADL's encouraged. Medication Compliance: Intermittent Side effects from medications: No Attending Groups: No Review of Systems Acute medical concerns: No Medical Review of Systems: unchanged Review of Systems Review of Systems Yes Unobtainable due to mental status Mental Status Exam Mental Status Exam Patient Appearance: Disheveled Patient Orientation: Person and Place Level of Consciousness: Alert Patient Behavior: Talkative, Suspicious, Belligerent, Anxious, Fearful, Avoidant, Distractible and Good Eye Contact Mood Description: Labile Affect Description: Labile Patient Cognition Impaired: Yes Ability to Follow Directions: Fair Speech Pattern: Spontaneous Speech Memory Description: Remote Impaired and Episodic Impaired Diagnostics Vital Signs (24Hr): Vital Signs - 24 hr 07/22/23 09:37 Respiratory Rate 18 BMI result Body Mass Index 34.1 Labs 06/25/23 17:59 06/25/23 17:59 Medications Medications Current Medications Al Hydroxide/Mg Hydroxide (Magnesium Hydrox/Alum Hydrox 30 Ml Oral.Susp) 30 ml PO Q6H PRN PRN Reason: Heartburn/Nausea Albuterol Sulfate (Albuterol Sulfate 90 Mcg 8 Gm Inhaler) 2 puff INHALE Q4H PRN PRN Reason: Wheezing Duloxetine HCl (Duloxetine Hcl 20 Mg Capsule.Dr) 40 mg PO DAILY [facility] Last Admin: 07/21/23 10:12 Dose: Not Given Hydroxyzine HCl (Hydroxyzine Hcl 25 Mg Tablet) 25 mg PO Q6H PRN PRN Reason: Anxiety Ibuprofen (Ibuprofen 600 Mg Tablet) 600 mg PO Q6H PRN PRN Reason: moderate to severe pain Last Admin: 07/22/23 05:35 Dose: 600 mg Lorazepam (Lorazepam 0.5 Mg Tablet) 0.5 mg PO BID [facility] Last Admin: 07/21/23 20:03 Dose: Not Given Magnesium Hydroxide (Milk Of Magnesia 30 Ml Oral.Susp) 30 ml PO DAILY PRN PRN Reason: Constipation Metformin HCl (Metformin Hcl 500 Mg Tablet) 500 mg PO BID [facility] Last Admin: 07/21/23 20:03 Dose: Not Given Metronidazole (Metronidazole 0.75 % Gel 45 Gm Tube) 1 appl TOPICAL DAILY [facility] Last Admin: 07/21/23 10:13 Dose: Not Given Multivitamins/Vitamin C (Multivitamin Tablet) 1 tab PO DAILY [facility] Last Admin: 07/21/23 10:13 Dose: Not Given Nicotine Polacrilex (Nicotine Polacrilex Lozenge 2 Mg Lozenge) 2 mg BUCCAL Q2H PRN PRN Reason: Nicotine Cravings Olanzapine (Olanzapine Odt 10 Mg Tab.Rapdis) 20 mg TRANSLINGU DAILY [facility] Last Admin: 07/22/23 09:55 Dose: 20 mg Olanzapine (Olanzapine Odt 10 Mg Tab.Rapdis) 10 mg TRANSLINGU DAILY PRN PRN Reason: Psychosis Olanzapine (Olanzapine 10 Mg Vial) 20 mg IM DAILY PRN PRN Reason: if pt refuses PO Zydis-HCP activation Last Admin: 07/19/23 12:08 Dose: 20 mg Trazodone HCl (Trazodone Hcl 50 Mg Tablet) 50 mg PO BEDTIME MRX1 PRN PRN Reason: Insomnia Vitamin D (Cholecalciferol (Vitamin D3) 10 Mcg Tablet) 10 mcg PO DAILY [facility] Last Admin: 07/21/23 10:12 Dose: Not Given Allergies Allergies Allergy/AdvReac Type Severity Reaction Status Date / Time acetaminophen [From TYLENOL] Allergy Intermediate HIVES Verified 08/28/22 09:48 meperidine [From Demerol] Allergy Unknown Verified 08/28/22 09:48 Assessment & Plan Assessment & Plan (1) Schizoaffective disorder: Status: Acute Code(s): F25.9 - Schizoaffective disorder, unspecified Assessment and Plan: Presents with decompensation of schizoaffective disorder, while in group living environment. Not adherence appears to be a factor. Patient not engaging with interview, evaluation or adherent with medications ie declining same. Unable to care for self. Being held on a Section 12 that will on 07/02/23. In the meantime will try and establish report and encourage medication adherence. Plan 06/29: encourage med adherence. 07/01/23: Ensure tid Will file Section VII on 07/02/23. 07/02/23: HCP activated today. Martine Elder is willing to serve in this role. [phone]. 07/03/23: Encourage treatment compliance 07/04/23 Encourage treatment compliance, begin process of validating HCP with the courts in order to provide pt with psychopharmacology options. 07/05/23 Encourage treatment. 07/07 remains disorganized in speech and behavior; refusing meds, paranoid -continue process of affirming HCP 07/08- Continue current plan. 07/09 continue current treatment plan 07/11/23 continue current treatment plan 07/12: Continue current regimen and plans 07/13: Continue current regimen and plans 07/14: Continue current plans and regimen 07/15/23: Continue current tx. Initiate regime 07/16. 07/17/23: Continue to encourage treatment. 07/18/23: Add prn Zyprexa IM if she refuses HS dosing 07/19: Continue current management and treatment plan. 07/20: Continue current management and treatment plan. 07/21: Continue tx. Informed Consent: does not understand Reason for continued inpatient stay Substantial Risk for: rapid decompensation Time Spent With Patient Time: Total time managing care of this patient today ____ minutes.
[2023-07-23] MEDS: OLANZapine ODT 10 MG TAB.RAPDIS 20 MG TRANSLINGU (08:56)
--- NOTE | 2023-07-23 16:32 | P.PNPSI_ITS ---
Subjective Subjective Date of Service: 07/23/23 Reason For Visit: Schizoaffective disorder Subjective Notes: Conditional Voluntary Healthcare Proxy: Yes Guardianship: No Medical Problems Affecting Mental Status: No Medication Compliance: Intermittent Side effects from medications: No Attending Groups: No Review of Systems Acute medical concerns: No Medical Review of Systems: unchanged Review of Systems Review of Systems Yes Unobtainable due to mental status Mental Status Exam Mental Status Exam Patient Appearance: Disheveled Patient Orientation: Person and Place Level of Consciousness: Alert Patient Behavior: Talkative, Suspicious, Belligerent, Anxious, Fearful, Avoidant, Distractible and Good Eye Contact Mood Description: Labile Affect Description: Labile Patient Cognition Impaired: Yes Ability to Follow Directions: Fair Speech Pattern: Spontaneous Speech Memory Description: Remote Impaired and Episodic Impaired Diagnostics Vital Signs (24Hr): BMI result Body Mass Index 34.1 Labs 06/25/23 17:59 06/25/23 17:59 Medications Medications Current Medications Al Hydroxide/Mg Hydroxide (Magnesium Hydrox/Alum Hydrox 30 Ml Oral.Susp) 30 ml PO Q6H PRN PRN Reason: Heartburn/Nausea Albuterol Sulfate (Albuterol Sulfate 90 Mcg 8 Gm Inhaler) 2 puff INHALE Q4H PRN PRN Reason: Wheezing Duloxetine HCl (Duloxetine Hcl 20 Mg Capsule.Dr) 40 mg PO DAILY COUNTS INCLUDE 234 BEDS AT THE [facility] Last Admin: 07/23/23 08:55 Dose: Not Given Hydroxyzine HCl (Hydroxyzine Hcl 25 Mg Tablet) 25 mg PO Q6H PRN PRN Reason: Anxiety Ibuprofen (Ibuprofen 600 Mg Tablet) 600 mg PO Q6H PRN PRN Reason: moderate to severe pain Last Admin: 07/22/23 15:20 Dose: 600 mg Lorazepam (Lorazepam 0.5 Mg Tablet) 0.5 mg PO BID COUNTS INCLUDE 234 BEDS AT THE [facility] Last Admin: 07/23/23 08:55 Dose: Not Given Magnesium Hydroxide (Milk Of Magnesia 30 Ml Oral.Susp) 30 ml PO DAILY PRN PRN Reason: Constipation Metformin HCl (Metformin Hcl 500 Mg Tablet) 500 mg PO BID COUNTS INCLUDE 234 BEDS AT THE [facility] Last Admin: 07/23/23 08:55 Dose: Not Given Metronidazole (Metronidazole 0.75 % Gel 45 Gm Tube) 1 appl TOPICAL DAILY COUNTS INCLUDE 234 BEDS AT THE [facility] Last Admin: 07/23/23 08:55 Dose: Not Given Multivitamins/Vitamin C (Multivitamin Tablet) 1 tab PO DAILY COUNTS INCLUDE 234 BEDS AT THE [facility] Last Admin: 07/23/23 08:55 Dose: Not Given Nicotine Polacrilex (Nicotine Polacrilex Lozenge 2 Mg Lozenge) 2 mg BUCCAL Q2H PRN PRN Reason: Nicotine Cravings Olanzapine (Olanzapine Odt 10 Mg Tab.Rapdis) 20 mg TRANSLINGU DAILY COUNTS INCLUDE 234 BEDS AT THE [facility] Last Admin: 07/23/23 08:56 Dose: 20 mg Olanzapine (Olanzapine Odt 10 Mg Tab.Rapdis) 10 mg TRANSLINGU DAILY PRN PRN Reason: Psychosis Olanzapine (Olanzapine 10 Mg Vial) 20 mg IM DAILY PRN PRN Reason: if pt refuses PO Zydis-HCP activation Last Admin: 07/19/23 12:08 Dose: 20 mg Paliperidone Palmitate (Paliperidone Palmitate 234 Mg/1.5 Ml Syringe) 234 mg IM ONCE ONE Stop: 07/24/23 09:01 Trazodone HCl (Trazodone Hcl 50 Mg Tablet) 50 mg PO BEDTIME MRX1 PRN PRN Reason: Insomnia Vitamin D (Cholecalciferol (Vitamin D3) 10 Mcg Tablet) 10 mcg PO DAILY COUNTS INCLUDE 234 BEDS AT THE [facility] Last Admin: 07/23/23 08:55 Dose: Not Given Allergies Allergies Allergy/AdvReac Type Severity Reaction Status Date / Time acetaminophen [From TYLENOL] Allergy Intermediate HIVES Verified 08/28/22 09:48 meperidine [From Demerol] Allergy Unknown Verified 08/28/22 09:48 Assessment & Plan Assessment & Plan (1) Schizoaffective disorder: Status: Acute Code(s): F25.9 - Schizoaffective disorder, unspecified Assessment and Plan: Presents with decompensation of schizoaffective disorder, while in group living environment. Not adherence appears to be a factor. Patient not engaging with interview, evaluation or adherent with medications ie declining same. Unable to care for self. Being held on a Section 12 that will on 07/02/23. In the meantime will try and establish report and encourage medication adherence. Plan 06/29: encourage med adherence. 07/01/23: Ensure tid Will file Section VII on 07/02/23. 07/02/23: HCP activated today. Martine Elder is willing to serve in this role. [phone]. 07/03/23: Encourage treatment compliance 07/04/23 Encourage treatment compliance, begin process of validating HCP with the courts in order to provide pt with psychopharmacology options. 07/05/23 Encourage treatment. 07/07 remains disorganized in speech and behavior; refusing meds, paranoid -continue process of affirming HCP 07/08- Continue current plan. 07/09 continue current treatment plan 07/11/23 continue current treatment plan 07/12: Continue current regimen and plans 07/13: Continue current regimen and plans 07/14: Continue current plans and regimen 07/15/23: Continue current tx. Initiate regime 07/16. 07/17/23: Continue to encourage treatment. 07/18/23: Add prn Zyprexa IM if she refuses HS dosing 07/19: Continue current management and treatment plan. 07/20: Continue current management and treatment plan. 07/22: Continue tx. 07/23: Continue tx Informed Consent: does not understand Reason for continued inpatient stay Substantial Risk for: rapid decompensation Time Spent With Patient Time: Total time managing care of this patient today ____ minutes.
[2023-07-23] MEDS: Ibuprofen 600 MG TABLET PO (17:32)
[2023-07-24] MEDS: Ibuprofen 600 MG TABLET PO ×2 (06:23→16:40)
--- NOTE | 2023-07-24 10:50 | PC.NURSE ---
pt was approached by nurse with PO and IM medication as ordered. Pt was agreeable and then threw med cup at nurse and refused PO medication. Nurse collected medications from floor and will reapproach pt to administer IM medication shortly. Currently allowing pt to deescalate.
[2023-07-24] MEDS: Paliperidone Palmitate 234 MG/1.5 ML SYRINGE IM (11:19)
--- NOTE | 2023-07-24 11:30 | PC.NURSE ---
pt withdrew needle from arm while nurse was administering scheduled IM Paliperidone medication, security and staff held pt for 1min while new needle was obtained and remainder of medication was administered. Pt is now resting comfortably in bed.
--- NOTE | 2023-07-24 17:25 | P.EN_ITS ---
Documented by User: Carolin Reyes, BORA 08/06/23 17:54 Event Note Date of Service: 08/06/23 Event Note: Pt receiving her Invega Sustenna IM per activated HCP today She required a physical hold from 11:19-11:20 as team report she ripped the needle out during IM administration. Hold was needed for one minute to stabilize, obtain a clean needle and re- administer the remainder of the medication. During the remainder of the medicine administration pt was able to maintain behavioral control. Pt has been visable in the milieu this afternoon, listening to music, walking. She is verbal to make her needs known, however she is not open to process interactions at this time. Time Spent With Patient Time: Total time managing care of this patient today ____ minutes. Documented by User: Reggie Elder MD 08/07/23 22:48 Event Note Date of Service: 08/07/23
[2023-07-24 18:00] VITALS: RESP 18
--- NOTE | 2023-07-24 18:53 | P.PNPSI_ITS ---
Subjective Subjective Date of Service: 07/24/23 Reason For Visit: Schizoaffective disorder Subjective Notes: Conditional Voluntary Healthcare Proxy: Yes Guardianship: No Medical Problems Affecting Mental Status: No Interim History: Pt combative today with Invega Sustenna injection. Please refer to event notation. After injection she is calm, no distress, visable in milieu. Continues to make needs known, but is otherwise not very interactive when approached. She continues to be non-attentive to ADL'S Medication Compliance: Intermittent Side effects from medications: No Attending Groups: No Review of Systems Acute medical concerns: No Medical Review of Systems: unchanged Review of Systems Review of Systems Yes Unobtainable due to mental status Mental Status Exam Mental Status Exam Patient Appearance: Disheveled Patient Orientation: Person and Place Level of Consciousness: Alert Patient Behavior: Talkative, Suspicious, Belligerent, Anxious, Fearful, Avoidant, Distractible and Good Eye Contact Mood Description: Labile Affect Description: Labile Patient Cognition Impaired: Yes Ability to Follow Directions: Fair Speech Pattern: Spontaneous Speech Memory Description: Remote Impaired and Episodic Impaired Diagnostics Vital Signs (24Hr): BMI result Body Mass Index 34.1 Labs 06/25/23 17:59 06/25/23 17:59 Medications Medications Current Medications Al Hydroxide/Mg Hydroxide (Magnesium Hydrox/Alum Hydrox 30 Ml Oral.Susp) 30 ml PO Q6H PRN PRN Reason: Heartburn/Nausea Albuterol Sulfate (Albuterol Sulfate 90 Mcg 8 Gm Inhaler) 2 puff INHALE Q4H PRN PRN Reason: Wheezing Duloxetine HCl (Duloxetine Hcl 20 Mg Capsule.Dr) 40 mg PO DAILY [facility] Last Admin: 07/24/23 10:48 Dose: Not Given Hydroxyzine HCl (Hydroxyzine Hcl 25 Mg Tablet) 25 mg PO Q6H PRN PRN Reason: Anxiety Ibuprofen (Ibuprofen 600 Mg Tablet) 600 mg PO Q6H PRN PRN Reason: moderate to severe pain Last Admin: 07/24/23 16:40 Dose: 600 mg Lorazepam (Lorazepam 0.5 Mg Tablet) 0.5 mg PO BID [facility] Last Admin: 07/24/23 10:48 Dose: Not Given Magnesium Hydroxide (Milk Of Magnesia 30 Ml Oral.Susp) 30 ml PO DAILY PRN PRN Reason: Constipation Metformin HCl (Metformin Hcl 500 Mg Tablet) 500 mg PO BID [facility] Last Admin: 07/24/23 10:48 Dose: Not Given Metronidazole (Metronidazole 0.75 % Gel 45 Gm Tube) 1 appl TOPICAL DAILY [facility] Last Admin: 07/24/23 10:48 Dose: Not Given Multivitamins/Vitamin C (Multivitamin Tablet) 1 tab PO DAILY [facility] Last Admin: 07/24/23 10:49 Dose: Not Given Nicotine Polacrilex (Nicotine Polacrilex Lozenge 2 Mg Lozenge) 2 mg BUCCAL Q2H PRN PRN Reason: Nicotine Cravings Olanzapine (Olanzapine Odt 10 Mg Tab.Rapdis) 20 mg TRANSLINGU DAILY [facility] Last Admin: 07/24/23 10:49 Dose: Not Given Olanzapine (Olanzapine Odt 10 Mg Tab.Rapdis) 10 mg TRANSLINGU DAILY PRN PRN Reason: Psychosis Olanzapine (Olanzapine 10 Mg Vial) 20 mg IM DAILY PRN PRN Reason: if pt refuses PO Zydis-HCP activation Last Admin: 07/19/23 12:08 Dose: 20 mg Trazodone HCl (Trazodone Hcl 50 Mg Tablet) 50 mg PO BEDTIME MRX1 PRN PRN Reason: Insomnia Vitamin D (Cholecalciferol (Vitamin D3) 10 Mcg Tablet) 10 mcg PO DAILY [facility] Last Admin: 07/24/23 10:48 Dose: Not Given Allergies Allergies Allergy/AdvReac Type Severity Reaction Status Date / Time acetaminophen [From TYLENOL] Allergy Intermediate HIVES Verified 08/28/22 09:48 meperidine [From Demerol] Allergy Unknown Verified 08/28/22 09:48 Assessment & Plan Assessment & Plan (1) Schizoaffective disorder: Status: Acute Code(s): F25.9 - Schizoaffective disorder, unspecified Assessment and Plan: Presents with decompensation of schizoaffective disorder, while in group living environment. Not adherence appears to be a factor. Patient not engaging with interview, evaluation or adherent with medications ie declining same. Unable to care for self. Being held on a Section 12 that will on 07/02/23. In the meantime will try and establish report and encourage medication adherence. Plan 06/29: encourage med adherence. 07/01/23: Ensure tid Will file Section VII on 07/02/23. 07/02/23: HCP activated today. Martine Elder is willing to serve in this role. [phone]. 07/03/23: Encourage treatment compliance 07/04/23 Encourage treatment compliance, begin process of validating HCP with the courts in order to provide pt with psychopharmacology options. 07/05/23 Encourage treatment. 07/07 remains disorganized in speech and behavior; refusing meds, paranoid -continue process of affirming HCP 07/08- Continue current plan. 07/09 continue current treatment plan 07/11/23 continue current treatment plan 07/12: Continue current regimen and plans 07/13: Continue current regimen and plans 07/14: Continue current plans and regimen 07/15/23: Continue current tx. Initiate regime 07/16. 07/17/23: Continue to encourage treatment. 07/18/23: Add prn Zyprexa IM if she refuses HS dosing 07/19: Continue current management and treatment plan. 07/20: Continue current management and treatment plan. 07/22: Continue tx. 07/23: Continue tx : Received Sustenna 234 mg today. Informed Consent: does not understand Reason for continued inpatient stay Substantial Risk for: harm to self, harm to others and rapid decompensation Time Spent With Patient Time: Total time managing care of this patient today ____ minutes.
[2023-07-25] MEDS: Ibuprofen 600 MG TABLET PO ×3 (05:00→21:05)
[2023-07-25 06:00] VITALS: RESP 18
--- NOTE | 2023-07-25 13:09 | P.PNPSI_ITS ---
Subjective Subjective Date of Service: 07/25/23 Reason For Visit: Schizoaffective disorder Subjective Notes: Conditional Voluntary Healthcare Proxy: Yes Guardianship: No Medical Problems Affecting Mental Status: No Interim History: Visable in milieu. Spent the afternoon sitting by the phone, watching the door. No exit seeking attempts. Pt is a bit more talkative today in brief interactions Making her needs known. At times attentive to the environment, at times in her own thoughts. Medication Compliance: Intermittent Side effects from medications: No Attending Groups: No Review of Systems Acute medical concerns: No Medical Review of Systems: unchanged Review of Systems Review of Systems Yes Unobtainable due to mental status Mental Status Exam Mental Status Exam Patient Appearance: Disheveled Patient Orientation: Person and Place Level of Consciousness: Alert Patient Behavior: Talkative, Suspicious, Belligerent, Anxious, Fearful, Avoidant, Distractible and Good Eye Contact Mood Description: Labile Affect Description: Labile Patient Cognition Impaired: Yes Ability to Follow Directions: Fair Speech Pattern: Spontaneous Speech Memory Description: Remote Impaired and Episodic Impaired Diagnostics Vital Signs (24Hr): Vital Signs - 24 hr 07/24/23 18:00 07/25/23 06:00 Respiratory Rate 18 18 BMI result Body Mass Index 34.1 Labs 06/25/23 17:59 06/25/23 17:59 Medications Medications Current Medications Al Hydroxide/Mg Hydroxide (Magnesium Hydrox/Alum Hydrox 30 Ml Oral.Susp) 30 ml PO Q6H PRN PRN Reason: Heartburn/Nausea Albuterol Sulfate (Albuterol Sulfate 90 Mcg 8 Gm Inhaler) 2 puff INHALE Q4H PRN PRN Reason: Wheezing Duloxetine HCl (Duloxetine Hcl 20 Mg Capsule.Dr) 40 mg PO DAILY [facility] Last Admin: 07/25/23 08:22 Dose: Not Given Hydroxyzine HCl (Hydroxyzine Hcl 25 Mg Tablet) 25 mg PO Q6H PRN PRN Reason: Anxiety Ibuprofen (Ibuprofen 600 Mg Tablet) 600 mg PO Q6H PRN PRN Reason: moderate to severe pain Last Admin: 07/25/23 05:00 Dose: 600 mg Lorazepam (Lorazepam 0.5 Mg Tablet) 0.5 mg PO BID [facility] Last Admin: 07/25/23 08:22 Dose: Not Given Magnesium Hydroxide (Milk Of Magnesia 30 Ml Oral.Susp) 30 ml PO DAILY PRN PRN Reason: Constipation Metformin HCl (Metformin Hcl 500 Mg Tablet) 500 mg PO BID [facility] Last Admin: 07/25/23 08:22 Dose: Not Given Metronidazole (Metronidazole 0.75 % Gel 45 Gm Tube) 1 appl TOPICAL DAILY [facility] Last Admin: 07/25/23 08:23 Dose: Not Given Multivitamins/Vitamin C (Multivitamin Tablet) 1 tab PO DAILY [facility] Last Admin: 07/25/23 08:23 Dose: Not Given Nicotine Polacrilex (Nicotine Polacrilex Lozenge 2 Mg Lozenge) 2 mg BUCCAL Q2H PRN PRN Reason: Nicotine Cravings Olanzapine (Olanzapine Odt 10 Mg Tab.Rapdis) 20 mg TRANSLINGU DAILY [facility] Last Admin: 07/24/23 10:49 Dose: Not Given Olanzapine (Olanzapine Odt 10 Mg Tab.Rapdis) 10 mg TRANSLINGU DAILY PRN PRN Reason: Psychosis Olanzapine (Olanzapine 10 Mg Vial) 20 mg IM DAILY PRN PRN Reason: if pt refuses PO Zydis-HCP activation Last Admin: 07/19/23 12:08 Dose: 20 mg Trazodone HCl (Trazodone Hcl 50 Mg Tablet) 50 mg PO BEDTIME MRX1 PRN PRN Reason: Insomnia Vitamin D (Cholecalciferol (Vitamin D3) 10 Mcg Tablet) 10 mcg PO DAILY [facility] Last Admin: 07/25/23 08:22 Dose: Not Given Allergies Allergies Allergy/AdvReac Type Severity Reaction Status Date / Time acetaminophen [From TYLENOL] Allergy Intermediate HIVES Verified 08/28/22 09:48 meperidine [From Demerol] Allergy Unknown Verified 08/28/22 09:48 Assessment & Plan Assessment & Plan (1) Schizoaffective disorder: Status: Acute Code(s): F25.9 - Schizoaffective disorder, unspecified Assessment and Plan: Presents with decompensation of schizoaffective disorder, while in group living environment. Not adherence appears to be a factor. Patient not engaging with interview, evaluation or adherent with medications ie declining same. Unable to care for self. Being held on a Section 12 that will on 07/02/23. In the meantime will try and establish report and encourage medication adherence. Plan 06/29: encourage med adherence. 07/01/23: Ensure tid Will file Section VII on 07/02/23. 07/02/23: HCP activated today. Maritne Elder is willing to serve in this role. [phone]. 07/03/23: Encourage treatment compliance 07/04/23 Encourage treatment compliance, begin process of validating HCP with the courts in order to provide pt with psychopharmacology options. 07/05/23 Encourage treatment. 07/07 remains disorganized in speech and behavior; refusing meds, paranoid -continue process of affirming HCP 07/08- Continue current plan. 07/09 continue current treatment plan 07/11/23 continue current treatment plan 07/12: Continue current regimen and plans 07/13: Continue current regimen and plans 07/14: Continue current plans and regimen 07/15/23: Continue current tx. Initiate regime 07/16. 07/17/23: Continue to encourage treatment. 07/18/23: Add prn Zyprexa IM if she refuses HS dosing 07/19: Continue current management and treatment plan. 07/20: Continue current management and treatment plan. 07/22: Continue tx. 07/23: Continue tx 07/24: Encourage milieu participation Informed Consent: does not understand Reason for continued inpatient stay Substantial Risk for: rapid decompensation Time Spent With Patient Time: Total time managing care of this patient today ____ minutes.
[2023-07-26 06:00] VITALS: RESP 18
[2023-07-26] MEDS: Ibuprofen 600 MG TABLET PO ×2 (08:21→17:48)
--- NOTE | 2023-07-26 13:25 | HO.PSYCHPN ---
Subjective Subjective Date of Service: 07/26/23 Reason For Visit: Schizoaffective disorder Subjective Notes: Conditional Voluntary Healthcare Proxy: Yes Guardianship: No Medical Problems Affecting Mental Status: No Interim History: When asked to talk with pt she said no you don't refused am meds , malodorous, keeps to self, eating, but interaction becomes mildly agitated Medication Compliance: No (but getting injection) Side effects from medications: No Attending Groups: No Review of Systems Acute medical concerns: No Medical Review of Systems: unchanged Mental Status Exam Mental Status Exam Patient Appearance: Disheveled and Unkempt Patient Orientation: Person Level of Consciousness: Awake and Inappropriate Patient Behavior: Resistive to Care Mood Description: Angry Affect Description: Labile Patient Cognition Impaired: No Ability to Follow Directions: Poor Delusions: Paranoid Ideation Thought Process: Illogical Judgement: Poor Diagnostics Vital Signs (24Hr): Vital Signs - 24 hr 07/26/23 06:00 Respiratory Rate 18 BMI result Body Mass Index 34.1 Labs 06/25/23 17:59 06/25/23 17:59 Medications Medications Current Medications Al Hydroxide/Mg Hydroxide (Magnesium Hydrox/Alum Hydrox 30 Ml Oral.Susp) 30 ml PO Q6H PRN PRN Reason: Heartburn/Nausea Albuterol Sulfate (Albuterol Sulfate 90 Mcg 8 Gm Inhaler) 2 puff INHALE Q4H PRN PRN Reason: Wheezing Duloxetine HCl (Duloxetine Hcl 20 Mg Capsule.Dr) 40 mg PO DAILY [facility] Last Admin: 07/26/23 08:34 Dose: Not Given Hydroxyzine HCl (Hydroxyzine Hcl 25 Mg Tablet) 25 mg PO Q6H PRN PRN Reason: Anxiety Ibuprofen (Ibuprofen 600 Mg Tablet) 600 mg PO Q6H PRN PRN Reason: moderate to severe pain Last Admin: 07/26/23 08:21 Dose: 600 mg Lorazepam (Lorazepam 0.5 Mg Tablet) 0.5 mg PO BID [facility] Last Admin: 07/26/23 08:34 Dose: Not Given Magnesium Hydroxide (Milk Of Magnesia 30 Ml Oral.Susp) 30 ml PO DAILY PRN PRN Reason: Constipation Metformin HCl (Metformin Hcl 500 Mg Tablet) 500 mg PO BID [facility] Last Admin: 07/26/23 08:35 Dose: Not Given Metronidazole (Metronidazole 0.75 % Gel 45 Gm Tube) 1 appl TOPICAL DAILY [facility] Last Admin: 07/26/23 08:35 Dose: Not Given Multivitamins/Vitamin C (Multivitamin Tablet) 1 tab PO DAILY [facility] Last Admin: 07/26/23 08:35 Dose: Not Given Nicotine Polacrilex (Nicotine Polacrilex Lozenge 2 Mg Lozenge) 2 mg BUCCAL Q2H PRN PRN Reason: Nicotine Cravings Olanzapine (Olanzapine Odt 10 Mg Tab.Rapdis) 20 mg TRANSLINGU DAILY [facility] Last Admin: 07/24/23 10:49 Dose: Not Given Olanzapine (Olanzapine Odt 10 Mg Tab.Rapdis) 10 mg TRANSLINGU DAILY PRN PRN Reason: Psychosis Olanzapine (Olanzapine 10 Mg Vial) 20 mg IM DAILY PRN PRN Reason: if pt refuses PO Zydis-HCP activation Last Admin: 07/19/23 12:08 Dose: 20 mg Trazodone HCl (Trazodone Hcl 50 Mg Tablet) 50 mg PO BEDTIME MRX1 PRN PRN Reason: Insomnia Vitamin D (Cholecalciferol (Vitamin D3) 10 Mcg Tablet) 10 mcg PO DAILY [facility] Last Admin: 07/26/23 08:34 Dose: Not Given Allergies Allergies Allergy/AdvReac Type Severity Reaction Status Date / Time acetaminophen [From TYLENOL] Allergy Intermediate HIVES Verified 08/28/22 09:48 meperidine [From Demerol] Allergy Unknown Verified 08/28/22 09:48 Assessment & Plan Assessment & Plan (1) Schizoaffective disorder: Status: Acute Code(s): F25.9 - Schizoaffective disorder, unspecified Assessment and Plan: Presents with decompensation of schizoaffective disorder, while in group living environment. Not adherence appears to be a factor. Patient not engaging with interview, evaluation or adherent with medications ie declining same. Unable to care for self. Being held on a Section 12 that will on 07/02/23. In the meantime will try and establish report and encourage medication adherence. Plan 06/29: encourage med adherence. 07/01/23: Ensure tid Will file Section VII on 07/02/23. 07/02/23: HCP activated today. Martine Elder is willing to serve in this role. [phone]. 07/03/23: Encourage treatment compliance 07/04/23 Encourage treatment compliance, begin process of validating HCP with the courts in order to provide pt with psychopharmacology options. 07/05/23 Encourage treatment. 07/07 remains disorganized in speech and behavior; refusing meds, paranoid -continue process of affirming HCP 07/08- Continue current plan. 07/09 continue current treatment plan 07/11/23 continue current treatment plan 07/12: Continue current regimen and plans 07/13: Continue current regimen and plans 07/14: Continue current plans and regimen 07/15/23: Continue current tx. Initiate regime 07/16. 07/17/23: Continue to encourage treatment. 07/18/23: Add prn Zyprexa IM if she refuses HS dosing 07/19: Continue current management and treatment plan. 07/20: Continue current management and treatment plan. 07/22: Continue tx. 07/23: Continue tx 07/24: Encourage milieu participation 07/26/23 continues too labile to interact with others- Informed Consent: does not understand Reason for continued inpatient stay Substantial Risk for: inability to function and rapid decompensation Time Spent With Patient Time: Total time managing care of this patient today ____ minutes.
[2023-07-27 06:00] VITALS: RESP 18
[2023-07-27] MEDS: Ibuprofen 600 MG TABLET PO ×2 (08:08→21:37)
--- NOTE | 2023-07-27 11:11 | P.PNPSI_ITS ---
Subjective Subjective Date of Service: 07/27/23 Reason For Visit: Schizoaffective disorder Subjective Notes: Section 7 Healthcare Proxy: No Guardianship: No Medical Problems Affecting Mental Status: No Interim History: 52 yo with ongoing psychosis refusing medications - I am not on any that is what she tells nursing- but did ask nursing to take a shower/shave - today- ( is on invega I don't do meds or vitals paces around with headphones- singing in [place] Medication Compliance: No Side effects from medications: No Attending Groups: No Review of Systems Acute medical concerns: No Medical Review of Systems: unchanged Mental Status Exam Mental Status Exam Patient Appearance: Unkempt (but showering today) Patient Orientation: Person, Place, Time and Situation Level of Consciousness: Awake Patient Behavior: Hyperactive, Resistive to Care, Impulsive and Poor Eye Contact Mood Description: Expansive Affect Description: Labile Patient Cognition Impaired: No Ability to Follow Directions: Poor Speech Pattern: Inappropriate and Loud Thought Process: Racing and Distracted Thought Content: positive for [employer] Depressive Symptoms: Difficulty Sleeping Abnormal Motor Activity Signs and Symptoms: Hyperactivity Judgement: Poor Diagnostics Vital Signs (24Hr): Vital Signs - 24 hr 07/27/23 06:00 Respiratory Rate 18 BMI result Body Mass Index 34.1 Labs 06/25/23 17:59 06/25/23 17:59 Medications Medications Current Medications Al Hydroxide/Mg Hydroxide (Magnesium Hydrox/Alum Hydrox 30 Ml Oral.Susp) 30 ml PO Q6H PRN PRN Reason: Heartburn/Nausea Albuterol Sulfate (Albuterol Sulfate 90 Mcg 8 Gm Inhaler) 2 puff INHALE Q4H PRN PRN Reason: Wheezing Duloxetine HCl (Duloxetine Hcl 20 Mg Capsule.Dr) 40 mg PO DAILY [facility] Last Admin: 07/27/23 09:47 Dose: Not Given Hydroxyzine HCl (Hydroxyzine Hcl 25 Mg Tablet) 25 mg PO Q6H PRN PRN Reason: Anxiety Ibuprofen (Ibuprofen 600 Mg Tablet) 600 mg PO Q6H PRN PRN Reason: moderate to severe pain Last Admin: 07/27/23 08:08 Dose: 600 mg Lorazepam (Lorazepam 0.5 Mg Tablet) 0.5 mg PO BID [facility] Last Admin: 07/27/23 09:47 Dose: Not Given Magnesium Hydroxide (Milk Of Magnesia 30 Ml Oral.Susp) 30 ml PO DAILY PRN PRN Reason: Constipation Metformin HCl (Metformin Hcl 500 Mg Tablet) 500 mg PO BID [facility] Last Admin: 07/27/23 09:47 Dose: Not Given Metronidazole (Metronidazole 0.75 % Gel 45 Gm Tube) 1 appl TOPICAL DAILY [facility] Last Admin: 07/27/23 09:47 Dose: Not Given Multivitamins/Vitamin C (Multivitamin Tablet) 1 tab PO DAILY [facility] Last Admin: 07/27/23 09:47 Dose: Not Given Nicotine Polacrilex (Nicotine Polacrilex Lozenge 2 Mg Lozenge) 2 mg BUCCAL Q2H PRN PRN Reason: Nicotine Cravings Olanzapine (Olanzapine Odt 10 Mg Tab.Rapdis) 20 mg TRANSLINGU DAILY [facility] Last Admin: 07/24/23 10:49 Dose: Not Given Olanzapine (Olanzapine Odt 10 Mg Tab.Rapdis) 10 mg TRANSLINGU DAILY PRN PRN Reason: Psychosis Olanzapine (Olanzapine 10 Mg Vial) 20 mg IM DAILY PRN PRN Reason: if pt refuses PO Zydis-HCP activation Last Admin: 07/19/23 12:08 Dose: 20 mg Trazodone HCl (Trazodone Hcl 50 Mg Tablet) 50 mg PO BEDTIME MRX1 PRN PRN Reason: Insomnia Vitamin D (Cholecalciferol (Vitamin D3) 10 Mcg Tablet) 10 mcg PO DAILY [facility] Last Admin: 07/27/23 09:46 Dose: Not Given Allergies Allergies Allergy/AdvReac Type Severity Reaction Status Date / Time acetaminophen [From TYLENOL] Allergy Intermediate HIVES Verified 08/28/22 09:48 meperidine [From Demerol] Allergy Unknown Verified 08/28/22 09:48 Assessment & Plan Assessment & Plan (1) Schizoaffective disorder: Status: Acute Code(s): F25.9 - Schizoaffective disorder, unspecified Assessment and Plan: Presents with decompensation of schizoaffective disorder, while in group living environment. Not adherence appears to be a factor. Patient not engaging with interview, evaluation or adherent with medications ie declining same. Unable to care for self. Being held on a Section 12 that will on 07/02/23. In the meantime will try and establish report and encourage medication adherence. Plan 06/29: encourage med adherence. 07/01/23: Ensure tid Will file Section VII on 07/02/23. 07/02/23: HCP activated today. Martine Elder is willing to serve in this role. [phone]. 07/03/23: Encourage treatment compliance 07/04/23 Encourage treatment compliance, begin process of validating HCP with the courts in order to provide pt with psychopharmacology options. 07/05/23 Encourage treatment. 07/07 remains disorganized in speech and behavior; refusing meds, paranoid -continue process of affirming HCP 07/08- Continue current plan. 07/09 continue current treatment plan 07/11/23 continue current treatment plan 07/12: Continue current regimen and plans 07/13: Continue current regimen and plans 07/14: Continue current plans and regimen 07/15/23: Continue current tx. Initiate regime 07/16. 07/17/23: Continue to encourage treatment. 07/18/23: Add prn Zyprexa IM if she refuses HS dosing 07/19: Continue current management and treatment plan. 07/20: Continue current management and treatment plan. 07/22: Continue tx. 07/23: Continue tx 07/24: Encourage milieu participation 07/26/23 continues too labile to interact with others- 07/27/23 - CTP encourage treatment Patient educated on: medication risk/benefits Informed Consent: further education needed Reason for continued inpatient stay Substantial Risk for: inability to function and rapid decompensation Time Spent With Patient Time: Total time managing care of this patient today ____ minutes.
[2023-07-27 18:00] VITALS: RESP 18
[2023-07-28 06:00] VITALS: RESP 18
[2023-07-28] MEDS: Ibuprofen 600 MG TABLET PO (07:41)
--- NOTE | 2023-07-28 12:43 | P.PNPSI_ITS ---
Subjective Subjective Date of Service: 07/28/23 Reason For Visit: Schizoaffective disorder Healthcare Proxy: Yes ( HCP activated 07/02. Martine Elder ) Interim History: 52 yo with ongoing psychosis refusing medications -discussed in team and pt seen; pt yells get the hell out of my room upon apprach - refuses to meet with me. Pt is agitated. is on invega sustenna. I don't do meds or vitals paces around with headphones- singing in [place] Medication Compliance: No Side effects from medications: No Attending Groups: No Review of Systems Acute medical concerns: No Medical Review of Systems: unchanged Review of Systems Review of Systems joint, muscle, bone pain reported. Pt will not accept intervention as she believes she owns all of the pharmacies and all of the meds are contraband. Yes all other systems are reviewed and are negative and Unobtainable due to mental status Mental Status Exam Mental Status Exam Narrative: Continues to appear psychotic and delusional and very disorganized and would not interact and became more agitated when I persisted. Patient Appearance: Unkempt (but showering today) Patient Orientation: Person, Place, Time and Situation Level of Consciousness: Awake Patient Behavior: Hyperactive, Resistive to Care, Impulsive and Poor Eye Contact Mood Description: Expansive Affect Description: Labile Patient Cognition Impaired: No Ability to Follow Directions: Poor Speech Pattern: Inappropriate and Loud Memory Description: Remote Impaired and Episodic Impaired Thought Process: Distracted Judgement: Poor Diagnostics Vital Signs (24Hr): Vital Signs - 24 hr 07/27/23 18:00 07/28/23 06:00 Respiratory Rate 18 18 BMI result Body Mass Index 34.1 Labs 06/25/23 17:59 06/25/23 17:59 Medications Medications Current Medications Al Hydroxide/Mg Hydroxide (Magnesium Hydrox/Alum Hydrox 30 Ml Oral.Susp) 30 ml PO Q6H PRN PRN Reason: Heartburn/Nausea Albuterol Sulfate (Albuterol Sulfate 90 Mcg 8 Gm Inhaler) 2 puff INHALE Q4H PRN PRN Reason: Wheezing Duloxetine HCl (Duloxetine Hcl 20 Mg Capsule.Dr) 40 mg PO DAILY [facility] Last Admin: 07/28/23 08:29 Dose: Not Given Hydroxyzine HCl (Hydroxyzine Hcl 25 Mg Tablet) 25 mg PO Q6H PRN PRN Reason: Anxiety Ibuprofen (Ibuprofen 600 Mg Tablet) 600 mg PO Q6H PRN PRN Reason: moderate to severe pain Last Admin: 07/28/23 07:41 Dose: 600 mg Lorazepam (Lorazepam 0.5 Mg Tablet) 0.5 mg PO BID [facility] Last Admin: 07/28/23 08:29 Dose: Not Given Magnesium Hydroxide (Milk Of Magnesia 30 Ml Oral.Susp) 30 ml PO DAILY PRN PRN Reason: Constipation Metformin HCl (Metformin Hcl 500 Mg Tablet) 500 mg PO BID [facility] Last Admin: 07/28/23 08:30 Dose: Not Given Metronidazole (Metronidazole 0.75 % Gel 45 Gm Tube) 1 appl TOPICAL DAILY [facility] Last Admin: 07/28/23 08:30 Dose: Not Given Multivitamins/Vitamin C (Multivitamin Tablet) 1 tab PO DAILY [facility] Last Admin: 07/28/23 08:30 Dose: Not Given Nicotine Polacrilex (Nicotine Polacrilex Lozenge 2 Mg Lozenge) 2 mg BUCCAL Q2H PRN PRN Reason: Nicotine Cravings Olanzapine (Olanzapine Odt 10 Mg Tab.Rapdis) 20 mg TRANSLINGU DAILY [facility] Last Admin: 07/24/23 10:49 Dose: Not Given Olanzapine (Olanzapine Odt 10 Mg Tab.Rapdis) 10 mg TRANSLINGU DAILY PRN PRN Reason: Psychosis Olanzapine (Olanzapine 10 Mg Vial) 20 mg IM DAILY PRN PRN Reason: if pt refuses PO Zydis-HCP activation Last Admin: 07/19/23 12:08 Dose: 20 mg Trazodone HCl (Trazodone Hcl 50 Mg Tablet) 50 mg PO BEDTIME MRX1 PRN PRN Reason: Insomnia Vitamin D (Cholecalciferol (Vitamin D3) 10 Mcg Tablet) 10 mcg PO DAILY [facility] Last Admin: 07/28/23 08:29 Dose: Not Given Allergies Allergies Allergy/AdvReac Type Severity Reaction Status Date / Time acetaminophen [From TYLENOL] Allergy Intermediate HIVES Verified 08/28/22 09:48 meperidine [From Demerol] Allergy Unknown Verified 08/28/22 09:48 Assessment & Plan Assessment & Plan (1) Schizoaffective disorder: Status: Acute Code(s): F25.9 - Schizoaffective disorder, unspecified Assessment and Plan: Presents with decompensation of schizoaffective disorder, while in group living environment. Not adherence appears to be a factor. Patient not engaging with interview, evaluation or adherent with medications ie declining same. Unable to care for self. Being held on a Section 12 that will on 07/02/23. In the meantime will try and establish report and encourage medication adherence. Plan 06/29: encourage med adherence. 07/01/23: Ensure tid Will file Section VII on 07/02/23. 07/02/23: HCP activated today. Martine Elder is willing to serve in this role. [phone]. 07/03/23: Encourage treatment compliance 07/04/23 Encourage treatment compliance, begin process of validating HCP with the courts in order to provide pt with psychopharmacology options. 07/05/23 Encourage treatment. 07/07 remains disorganized in speech and behavior; refusing meds, paranoid -continue process of affirming HCP 07/08- Continue current plan. 07/09 continue current treatment plan 07/11/23 continue current treatment plan 07/12: Continue current regimen and plans 07/13: Continue current regimen and plans 07/14: Continue current plans and regimen 07/15/23: Continue current tx. Initiate regime 07/16. 07/17/23: Continue to encourage treatment. 07/18/23: Add prn Zyprexa IM if she refuses HS dosing 07/19: Continue current management and treatment plan. 07/20: Continue current management and treatment plan. 07/22: Continue tx. 07/23: Continue tx 07/24: Encourage milieu participation 07/26/23 continues too labile to interact with others- 07/27/23 - CTP encourage treatment 07/27/22 Continue tx plan; encourge meds as approved by HCP and court Patient educated on: therapeutic strategies Informed Consent: does not understand Reason for continued inpatient stay Substantial Risk for: harm to self, harm to others, inability to function and rapid decompensation Time Spent With Patient Time: Total time managing care of this patient today ____ minutes.
[2023-07-29] MEDS: Ibuprofen 600 MG TABLET PO ×3 (05:14→18:22)
--- NOTE | 2023-07-29 05:16 | PC.NURSE ---
pt approached nurses station and reported lower abdominal pain. Pt reports having a small, hard bowel movement home health clinician 07/29/23 but was unable to recall last bowel movement prior to then. MOM administered and results pending. will continue to monitor.
[2023-07-29 06:00] VITALS: RESP 18
--- NOTE | 2023-07-29 13:42 | HO.PSYCHPN ---
Subjective Subjective Date of Service: 07/29/23 Reason For Visit: Schizoaffective disorder Subjective Notes: Conditional Voluntary Healthcare Proxy: Yes (court approved) Interim History: Pt discussed in team and pt seen; 52 yo with ongoing psychosis; received invega sustenna 156 mg IM on 07.16.23 and then 234 mg IM on 07/24/23. Pt is refusing PO medications -discussed in team and pt seen; refuses to meet with me. Pt is observed in [facility] with headphones on; she appears mildy irritable and withdrawn; she does not make eye contact. she is not aggressive with staff or peers. States I don't do meds or vitals paces around with headphones on. Medication Compliance: No Side effects from medications: No Attending Groups: No Review of Systems Acute medical concerns: No Medical Review of Systems: unchanged Review of Systems Review of Systems joint, muscle, bone pain reported. Pt will not accept intervention as she believes she owns all of the pharmacies and all of the meds are contraband. Yes all other systems are reviewed and are negative and Unobtainable due to mental status Mental Status Exam Mental Status Exam Narrative: Continues to appear psychotic and delusional and very disorganized and would not interact and became more agitated when I persisted. Patient Appearance: Unkempt (but showering today) Patient Orientation: Person, Place, Time and Situation Level of Consciousness: Awake Patient Behavior: Hyperactive, Resistive to Care, Impulsive and Poor Eye Contact Mood Description: Withdrawn Affect Description: Labile Patient Cognition Impaired: No Ability to Follow Directions: Poor Speech Pattern: Inappropriate and Loud Memory Description: Remote Impaired and Episodic Impaired Judgement: Poor Diagnostics Vital Signs (24Hr): Vital Signs - 24 hr 07/29/23 06:00 Respiratory Rate 18 BMI result Body Mass Index 34.1 Labs 06/25/23 17:59 06/25/23 17:59 Medications Medications Current Medications Al Hydroxide/Mg Hydroxide (Magnesium Hydrox/Alum Hydrox 30 Ml Oral.Susp) 30 ml PO Q6H PRN PRN Reason: Heartburn/Nausea Albuterol Sulfate (Albuterol Sulfate 90 Mcg 8 Gm Inhaler) 2 puff INHALE Q4H PRN PRN Reason: Wheezing Duloxetine HCl (Duloxetine Hcl 20 Mg Capsule.Dr) 40 mg PO DAILY [facility] Last Admin: 07/28/23 08:29 Dose: Not Given Hydroxyzine HCl (Hydroxyzine Hcl 25 Mg Tablet) 25 mg PO Q6H PRN PRN Reason: Anxiety Ibuprofen (Ibuprofen 600 Mg Tablet) 600 mg PO Q6H PRN PRN Reason: moderate to severe pain Last Admin: 07/29/23 05:14 Dose: 600 mg Lorazepam (Lorazepam 0.5 Mg Tablet) 0.5 mg PO BID [facility] Last Admin: 07/28/23 21:32 Dose: Not Given Magnesium Hydroxide (Milk Of Magnesia 30 Ml Oral.Susp) 30 ml PO DAILY PRN PRN Reason: Constipation Metformin HCl (Metformin Hcl 500 Mg Tablet) 500 mg PO BID [facility] Last Admin: 07/28/23 21:32 Dose: Not Given Metronidazole (Metronidazole 0.75 % Gel 45 Gm Tube) 1 appl TOPICAL DAILY [facility] Last Admin: 07/28/23 08:30 Dose: Not Given Multivitamins/Vitamin C (Multivitamin Tablet) 1 tab PO DAILY [facility] Last Admin: 07/28/23 08:30 Dose: Not Given Nicotine Polacrilex (Nicotine Polacrilex Lozenge 2 Mg Lozenge) 2 mg BUCCAL Q2H PRN PRN Reason: Nicotine Cravings Olanzapine (Olanzapine Odt 10 Mg Tab.Rapdis) 10 mg TRANSLINGU DAILY PRN PRN Reason: Psychosis Trazodone HCl (Trazodone Hcl 50 Mg Tablet) 50 mg PO BEDTIME MRX1 PRN PRN Reason: Insomnia Vitamin D (Cholecalciferol (Vitamin D3) 10 Mcg Tablet) 10 mcg PO DAILY [facility] Last Admin: 07/28/23 08:29 Dose: Not Given Allergies Allergies Allergy/AdvReac Type Severity Reaction Status Date / Time acetaminophen [From TYLENOL] Allergy Intermediate HIVES Verified 08/28/22 09:48 meperidine [From Demerol] Allergy Unknown Verified 08/28/22 09:48 Assessment & Plan Assessment & Plan (1) Schizoaffective disorder: Status: Acute Code(s): F25.9 - Schizoaffective disorder, unspecified Assessment and Plan: Presents with decompensation of schizoaffective disorder, while in group living environment. Not adherence appears to be a factor. Patient not engaging with interview, evaluation or adherent with medications ie declining same. Unable to care for self. Being held on a Section 12 that will on 07/02/23. In the meantime will try and establish report and encourage medication adherence. Plan 06/29: encourage med adherence. 07/01/23: Ensure tid Will file Section VII on 07/02/23. 07/02/23: HCP activated today. Martine Elder is willing to serve in this role. [phone]. 07/03/23: Encourage treatment compliance 07/04/23 Encourage treatment compliance, begin process of validating HCP with the courts in order to provide pt with psychopharmacology options. 07/05/23 Encourage treatment. 07/07 remains disorganized in speech and behavior; refusing meds, paranoid -continue process of affirming HCP 07/08- Continue current plan. 07/09 continue current treatment plan 07/11/23 continue current treatment plan 07/12: Continue current regimen and plans 07/13: Continue current regimen and plans 07/14: Continue current plans and regimen 07/15/23: Continue current tx. Initiate regime 07/16. 07/17/23: Continue to encourage treatment. 07/18/23: Add prn Zyprexa IM if she refuses HS dosing 07/19: Continue current management and treatment plan. 07/20: Continue current management and treatment plan. 07/22: Continue tx. 07/23: Continue tx 07/24: Encourage milieu participation 07/26/23 continues too labile to interact with others- 07/27/23 - CTP encourage treatment 07/27/22 Continue tx plan; encourge meds as approved by HCP and court 07/29/23 schedule olanzepine discontinued after on hold for several days; awaiting invega sustenna to alleviate some of the psychosis in hopes patient more engageable and able to participate in her treatment; PO meds still ordered and should be offered with statement that they are court ordered and approved by HCP. Patient educated on: diagnosis, medication risk/benefits and therapeutic strategies Informed Consent: does not understand Reason for continued inpatient stay Substantial Risk for: harm to self, inability to function and rapid decompensation Time Spent With Patient Time: Total time managing care of this patient today __30__ minutes.
[2023-07-30] MEDS: Ibuprofen 600 MG TABLET PO ×3 (06:31→20:40)
[2023-07-30 09:00] VITALS: RESP 16
--- NOTE | 2023-07-30 16:47 | P.PNPSI_ITS ---
Subjective Subjective Date of Service: 07/30/23 Reason For Visit: Schizoaffective disorder Subjective Notes: Conditional Voluntary Healthcare Proxy: Yes Interim History: Pt discussed in team and pt seen; 52 yo with ongoing psychosis; received invega sustenna 156 mg IM on 07.16.23 and then 234 mg IM on 07/24/23. Pt is refusing PO medications -discussed in team and pt seen; refuses to meet with me. Pt is observed in [facility] with headphones on; she appears mildy irritable and withdrawn; she does not make eye contact. She is interacting with a few specific staff people but otherwise refuses to engage or allow vitals. She yelled at this chart writer again stating to get out of her room and that i was not a staff person. Staff reports she slept 3 hours last night. Medication Compliance: No Side effects from medications: No Attending Groups: No Review of Systems Acute medical concerns: No Medical Review of Systems: unchanged Review of Systems Review of Systems joint, muscle, bone pain reported. Pt will not accept intervention as she believes she owns all of the pharmacies and all of the meds are contraband. Yes all other systems are reviewed and are negative and Unobtainable due to mental status Mental Status Exam Mental Status Exam Narrative: Continues to appear psychotic and delusional and very disorganized and would not interact and became more agitated when I persisted. Patient Appearance: Unkempt (but showering today) Patient Orientation: Person, Place, Time and Situation Level of Consciousness: Awake Patient Behavior: Hyperactive, Resistive to Care, Impulsive and Poor Eye Contact Mood Description: Withdrawn Affect Description: Labile Patient Cognition Impaired: No Ability to Follow Directions: Poor Speech Pattern: Inappropriate and Loud Memory Description: Remote Impaired and Episodic Impaired Delusions: Paranoid Ideation Thought Process: Distracted and Confusion Thought Content: positive for Disorganized Judgement: Poor Diagnostics Vital Signs (24Hr): Vital Signs - 24 hr 07/30/23 09:00 Respiratory Rate 16 BMI result Body Mass Index 34.1 Labs 06/25/23 17:59 06/25/23 17:59 Medications Medications Current Medications Al Hydroxide/Mg Hydroxide (Magnesium Hydrox/Alum Hydrox 30 Ml Oral.Susp) 30 ml PO Q6H PRN PRN Reason: Heartburn/Nausea Albuterol Sulfate (Albuterol Sulfate 90 Mcg 8 Gm Inhaler) 2 puff INHALE Q4H PRN PRN Reason: Wheezing Duloxetine HCl (Duloxetine Hcl 20 Mg Capsule.Dr) 40 mg PO DAILY [facility] Last Admin: 07/30/23 08:59 Dose: Not Given Hydroxyzine HCl (Hydroxyzine Hcl 25 Mg Tablet) 25 mg PO Q6H PRN PRN Reason: Anxiety Ibuprofen (Ibuprofen 600 Mg Tablet) 600 mg PO Q6H PRN PRN Reason: moderate to severe pain Last Admin: 07/30/23 12:56 Dose: 600 mg Lorazepam (Lorazepam 0.5 Mg Tablet) 0.5 mg PO BID [facility] Last Admin: 07/30/23 08:59 Dose: Not Given Magnesium Hydroxide (Milk Of Magnesia 30 Ml Oral.Susp) 30 ml PO DAILY PRN PRN Reason: Constipation Metformin HCl (Metformin Hcl 500 Mg Tablet) 500 mg PO BID [facility] Last Admin: 07/30/23 08:59 Dose: Not Given Metronidazole (Metronidazole 0.75 % Gel 45 Gm Tube) 1 appl TOPICAL DAILY [facility] Last Admin: 07/30/23 09:00 Dose: Not Given Multivitamins/Vitamin C (Multivitamin Tablet) 1 tab PO DAILY [facility] Last Admin: 07/30/23 09:00 Dose: Not Given Nicotine Polacrilex (Nicotine Polacrilex Lozenge 2 Mg Lozenge) 2 mg BUCCAL Q2H PRN PRN Reason: Nicotine Cravings Olanzapine (Olanzapine Odt 10 Mg Tab.Rapdis) 10 mg TRANSLINGU DAILY PRN PRN Reason: Psychosis Trazodone HCl (Trazodone Hcl 50 Mg Tablet) 50 mg PO BEDTIME MRX1 PRN PRN Reason: Insomnia Vitamin D (Cholecalciferol (Vitamin D3) 10 Mcg Tablet) 10 mcg PO DAILY [facility] Last Admin: 07/30/23 08:59 Dose: Not Given Allergies Allergies Allergy/AdvReac Type Severity Reaction Status Date / Time acetaminophen [From TYLENOL] Allergy Intermediate HIVES Verified 08/28/22 09:48 meperidine [From Demerol] Allergy Unknown Verified 08/28/22 09:48 Assessment & Plan Assessment & Plan (1) Schizoaffective disorder: Status: Acute Code(s): F25.9 - Schizoaffective disorder, unspecified Assessment and Plan: Presents with decompensation of schizoaffective disorder, while in group living environment. Not adherence appears to be a factor. Patient not engaging with interview, evaluation or adherent with medications ie declining same. Unable to care for self. Being held on a Section 12 that will on 07/02/23. In the meantime will try and establish report and encourage medication adherence. Plan 06/29: encourage med adherence. 07/01/23: Ensure tid Will file Section VII on 07/02/23. 07/02/23: HCP activated today. Martine Elder is willing to serve in this role. [phone]. 07/03/23: Encourage treatment compliance 07/04/23 Encourage treatment compliance, begin process of validating HCP with the courts in order to provide pt with psychopharmacology options. 07/05/23 Encourage treatment. 07/07 remains disorganized in speech and behavior; refusing meds, paranoid -continue process of affirming HCP 07/08- Continue current plan. 07/09 continue current treatment plan 07/11/23 continue current treatment plan 07/12: Continue current regimen and plans 07/13: Continue current regimen and plans 07/14: Continue current plans and regimen 07/15/23: Continue current tx. Initiate regime 07/16. 07/17/23: Continue to encourage treatment. 07/18/23: Add prn Zyprexa IM if she refuses HS dosing 07/19: Continue current management and treatment plan. 07/20: Continue current management and treatment plan. 07/22: Continue tx. 07/23: Continue tx 07/24: Encourage milieu participation 07/26/23 continues too labile to interact with others- 07/27/23 - CTP encourage treatment 07/27/22 Continue tx plan; encourge meds as approved by HCP and court 07/29/23 schedule olanzepine discontinued after on hold for several days; awaiting invega sustenna to alleviate some of the psychosis in hopes patient more engageable and able to participate in her treatment; PO meds still ordered and should be offered with statement that they are court ordered and approved by HCP. 07/30/23 pt showing slight improvement- continue treatment plan Reason for continued inpatient stay Substantial Risk for: harm to self, harm to others, inability to function and rapid decompensation Time Spent With Patient Time: Total time managing care of this patient today ____ minutes.
--- NOTE | 2023-07-30 21:51 | PC.NURSE ---
PT refused blood draw.
[2023-07-31] MEDS: Ibuprofen 600 MG TABLET PO ×2 (08:29→17:46)
--- NOTE | 2023-07-31 09:52 | P.PNPSI_ITS ---
Subjective Subjective Date of Service: 07/31/23 Reason For Visit: Schizoaffective disorder Subjective Notes: Conditional Voluntary Interim History: Pt discussed in team and pt seen; 52 yo with ongoing psychosis; received invega sustenna 156 mg IM on 07.16.23 and then 234 mg IM on 07/24/23. Pt is refusing PO medications -discussed in team and pt seen; pt seen in [facility] [place] ; she acknowledged and said hello to this health underwriter; first day she did not yell at me and accuse me of being an imposter; More engaged with other in milieu in appropriate way. Staff reports she slept 6 hours last night. Medication Compliance: No Side effects from medications: No Attending Groups: No Review of Systems Acute medical concerns: No Medical Review of Systems: unchanged Review of Systems Review of Systems joint, muscle, bone pain reported. Pt will not accept intervention as she believes she owns all of the pharmacies and all of the meds are contraband. Yes all other systems are reviewed and are negative and Unobtainable due to mental status Mental Status Exam Mental Status Exam Narrative: Continues to appear psychotic and delusional and very disorganized. slight improvement in interactions and mood. Patient Appearance: Unkempt (but showering today) Patient Orientation: Person, Place, Time and Situation Level of Consciousness: Awake Patient Behavior: Hyperactive, Resistive to Care, Impulsive and Poor Eye Contact Mood Description: Withdrawn Affect Description: Labile Patient Cognition Impaired: No Ability to Follow Directions: Poor Speech Pattern: Inappropriate and Loud Memory Description: Remote Impaired and Episodic Impaired Judgement: Poor Diagnostics Vital Signs (24Hr): BMI result Body Mass Index 34.1 Labs 06/25/23 17:59 06/25/23 17:59 Medications Medications Current Medications Al Hydroxide/Mg Hydroxide (Magnesium Hydrox/Alum Hydrox 30 Ml Oral.Susp) 30 ml PO Q6H PRN PRN Reason: Heartburn/Nausea Albuterol Sulfate (Albuterol Sulfate 90 Mcg 8 Gm Inhaler) 2 puff INHALE Q4H PRN PRN Reason: Wheezing Duloxetine HCl (Duloxetine Hcl 20 Mg Capsule.Dr) 40 mg PO DAILY [facility] Last Admin: 07/31/23 08:30 Dose: Not Given Hydroxyzine HCl (Hydroxyzine Hcl 25 Mg Tablet) 25 mg PO Q6H PRN PRN Reason: Anxiety Ibuprofen (Ibuprofen 600 Mg Tablet) 600 mg PO Q6H PRN PRN Reason: moderate to severe pain Last Admin: 07/31/23 08:29 Dose: 600 mg Lorazepam (Lorazepam 0.5 Mg Tablet) 0.5 mg PO BID [facility] Last Admin: 07/31/23 08:30 Dose: Not Given Magnesium Hydroxide (Milk Of Magnesia 30 Ml Oral.Susp) 30 ml PO DAILY PRN PRN Reason: Constipation Metformin HCl (Metformin Hcl 500 Mg Tablet) 500 mg PO BID [facility] Last Admin: 07/31/23 08:30 Dose: Not Given Metronidazole (Metronidazole 0.75 % Gel 45 Gm Tube) 1 appl TOPICAL DAILY [facility] Last Admin: 07/31/23 08:31 Dose: Not Given Multivitamins/Vitamin C (Multivitamin Tablet) 1 tab PO DAILY [facility] Last Admin: 07/31/23 08:31 Dose: Not Given Nicotine Polacrilex (Nicotine Polacrilex Lozenge 2 Mg Lozenge) 2 mg BUCCAL Q2H PRN PRN Reason: Nicotine Cravings Olanzapine (Olanzapine Odt 10 Mg Tab.Rapdis) 10 mg TRANSLINGU DAILY PRN PRN Reason: Psychosis Trazodone HCl (Trazodone Hcl 50 Mg Tablet) 50 mg PO BEDTIME MRX1 PRN PRN Reason: Insomnia Vitamin D (Cholecalciferol (Vitamin D3) 10 Mcg Tablet) 10 mcg PO DAILY [facility] Last Admin: 07/31/23 08:30 Dose: Not Given Allergies Allergies Allergy/AdvReac Type Severity Reaction Status Date / Time acetaminophen [From TYLENOL] Allergy Intermediate HIVES Verified 08/28/22 09:48 meperidine [From Demerol] Allergy Unknown Verified 08/28/22 09:48 Assessment & Plan Assessment & Plan (1) Schizoaffective disorder: Status: Acute Code(s): F25.9 - Schizoaffective disorder, unspecified Assessment and Plan: Presents with decompensation of schizoaffective disorder, while in group living environment. Not adherence appears to be a factor. Patient not engaging with interview, evaluation or adherent with medications ie declining same. Unable to care for self. Being held on a Section 12 that will on 07/02/23. In the meantime will try and establish report and encourage medication adherence. Plan 06/29: encourage med adherence. 07/01/23: Ensure tid Will file Section VII on 07/02/23. 07/02/23: HCP activated today. Martine Elder is willing to serve in this role. [phone]. 07/03/23: Encourage treatment compliance 07/04/23 Encourage treatment compliance, begin process of validating HCP with the courts in order to provide pt with psychopharmacology options. 07/05/23 Encourage treatment. 07/07 remains disorganized in speech and behavior; refusing meds, paranoid -continue process of affirming HCP 07/08- Continue current plan. 07/09 continue current treatment plan 07/11/23 continue current treatment plan 07/12: Continue current regimen and plans 07/13: Continue current regimen and plans 07/14: Continue current plans and regimen 07/15/23: Continue current tx. Initiate regime 07/16. 07/17/23: Continue to encourage treatment. 07/18/23: Add prn Zyprexa IM if she refuses HS dosing 07/19: Continue current management and treatment plan. 07/20: Continue current management and treatment plan. 07/22: Continue tx. 07/23: Continue tx 07/24: Encourage milieu participation 07/26/23 continues too labile to interact with others- 07/27/23 - CTP encourage treatment 07/27/22 Continue tx plan; encourge meds as approved by HCP and court 07/29/23 schedule olanzepine discontinued after on hold for several days; awaiting invega sustenna to alleviate some of the psychosis in hopes patient more engageable and able to participate in her treatment; PO meds still ordered and should be offered with statement that they are court ordered and approved by HCP. 07/30/23 pt showing slight improvement- continue treatment plan 07/31/23 continue tx plan Reason for continued inpatient stay Substantial Risk for: harm to self, inability to function and rapid decompensation Time Spent With Patient Time: Total time managing care of this patient today __30__ minutes.
[2023-08-01] MEDS: Ibuprofen 600 MG TABLET PO ×3 (01:01→15:25)
[2023-08-01 08:00] VITALS: BP 135/83; PULSE 103; RESP 16; TEMP 36.2; O2SAT 98
--- NOTE | 2023-08-01 09:53 | HO.PSYCHPN ---
Subjective Subjective Date of Service: 08/01/23 Reason For Visit: Schizoaffective disorder Subjective Notes: Conditional Voluntary Healthcare Proxy: Yes Medical Problems Affecting Mental Status: No Interim History: Pt discussed in team and pt seen; 52 yo with ongoing psychosis; received invega sustenna 156 mg IM on 07.16.23 and then 234 mg IM on 07/24/23. Pt still refusing PO medications; she is more visible on unit and more interactive; makes brief eye contact, says kizzy, not willing to engage with this signwriter more but making progress as not yelling at TW as in past days. More engaged with other in milieu in appropriate way. Staff reports she slept 6 hours last night. Less labile. Medication Compliance: No Side effects from medications: No Attending Groups: Intermittent Review of Systems Acute medical concerns: No Medical Review of Systems: unchanged Review of Systems Review of Systems joint, muscle, bone pain reported. Pt will not accept intervention as she believes she owns all of the pharmacies and all of the meds are contraband. Yes all other systems are reviewed and are negative and Unobtainable due to mental status Mental Status Exam Mental Status Exam Narrative: Continues to appear psychotic and delusional and disorganized. slight improvement in interactions and mood. Patient Appearance: Unkempt (but showering today) Patient Orientation: Person, Place, Time and Situation Level of Consciousness: Awake Patient Behavior: Hyperactive, Resistive to Care, Impulsive and Poor Eye Contact Mood Description: Withdrawn Affect Description: Labile Patient Cognition Impaired: No Ability to Follow Directions: Poor Speech Pattern: Inappropriate and Loud Memory Description: Remote Impaired and Episodic Impaired Hallucinations: Auditory and Visual Delusions: Paranoid Ideation Thought Process: Incoherent Thought Content: positive for Preoccupation and positive for Incoherent Judgement: Poor Diagnostics Vital Signs (24Hr): BMI result Body Mass Index 34.1 Labs 06/25/23 17:59 06/25/23 17:59 Medications Medications Current Medications Al Hydroxide/Mg Hydroxide (Magnesium Hydrox/Alum Hydrox 30 Ml Oral.Susp) 30 ml PO Q6H PRN PRN Reason: Heartburn/Nausea Albuterol Sulfate (Albuterol Sulfate 90 Mcg 8 Gm Inhaler) 2 puff INHALE Q4H PRN PRN Reason: Wheezing Duloxetine HCl (Duloxetine Hcl 20 Mg Capsule.Dr) 40 mg PO DAILY [facility] Last Admin: 08/01/23 09:45 Dose: Not Given Hydroxyzine HCl (Hydroxyzine Hcl 25 Mg Tablet) 25 mg PO Q6H PRN PRN Reason: Anxiety Ibuprofen (Ibuprofen 600 Mg Tablet) 600 mg PO Q6H PRN PRN Reason: moderate to severe pain Last Admin: 08/01/23 06:02 Dose: 600 mg Lorazepam (Lorazepam 0.5 Mg Tablet) 0.5 mg PO BID [facility] Last Admin: 08/01/23 09:45 Dose: Not Given Magnesium Hydroxide (Milk Of Magnesia 30 Ml Oral.Susp) 30 ml PO DAILY PRN PRN Reason: Constipation Metformin HCl (Metformin Hcl 500 Mg Tablet) 500 mg PO BID [facility] Last Admin: 08/01/23 09:45 Dose: Not Given Metronidazole (Metronidazole 0.75 % Gel 45 Gm Tube) 1 appl TOPICAL DAILY [facility] Last Admin: 08/01/23 09:45 Dose: Not Given Multivitamins/Vitamin C (Multivitamin Tablet) 1 tab PO DAILY [facility] Last Admin: 08/01/23 09:45 Dose: Not Given Nicotine Polacrilex (Nicotine Polacrilex Lozenge 2 Mg Lozenge) 2 mg BUCCAL Q2H PRN PRN Reason: Nicotine Cravings Olanzapine (Olanzapine Odt 10 Mg Tab.Rapdis) 10 mg TRANSLINGU DAILY PRN PRN Reason: Psychosis Trazodone HCl (Trazodone Hcl 50 Mg Tablet) 50 mg PO BEDTIME MRX1 PRN PRN Reason: Insomnia Vitamin D (Cholecalciferol (Vitamin D3) 10 Mcg Tablet) 10 mcg PO DAILY [facility] Last Admin: 08/01/23 09:45 Dose: Not Given Allergies Allergies Allergy/AdvReac Type Severity Reaction Status Date / Time acetaminophen [From TYLENOL] Allergy Intermediate HIVES Verified 08/28/22 09:48 meperidine [From Demerol] Allergy Unknown Verified 08/28/22 09:48 Assessment & Plan Assessment & Plan (1) Schizoaffective disorder: Status: Acute Code(s): F25.9 - Schizoaffective disorder, unspecified Assessment and Plan: Presents with decompensation of schizoaffective disorder, while in group living environment. Not adherence appears to be a factor. Patient not engaging with interview, evaluation or adherent with medications ie declining same. Unable to care for self. Being held on a Section 12 that will on 07/02/23. In the meantime will try and establish report and encourage medication adherence. Plan 06/29: encourage med adherence. 07/01/23: Ensure tid Will file Section VII on 07/02/23. 07/02/23: HCP activated today. Martine Elder is willing to serve in this role. [phone]. 07/03/23: Encourage treatment compliance 07/04/23 Encourage treatment compliance, begin process of validating HCP with the courts in order to provide pt with psychopharmacology options. 07/05/23 Encourage treatment. 07/07 remains disorganized in speech and behavior; refusing meds, paranoid -continue process of affirming HCP 07/08- Continue current plan. 07/09 continue current treatment plan 07/11/23 continue current treatment plan 07/12: Continue current regimen and plans 07/13: Continue current regimen and plans 07/14: Continue current plans and regimen 07/15/23: Continue current tx. Initiate regime 07/16. 07/17/23: Continue to encourage treatment. 07/18/23: Add prn Zyprexa IM if she refuses HS dosing 07/19: Continue current management and treatment plan. 07/20: Continue current management and treatment plan. 07/22: Continue tx. 07/23: Continue tx 07/24: Encourage milieu participation 07/26/23 continues too labile to interact with others- 07/27/23 - CTP encourage treatment 07/27/22 Continue tx plan; encourge meds as approved by HCP and court 07/29/23 schedule olanzepine discontinued after on hold for several days; awaiting invega sustenna to alleviate some of the psychosis in hopes patient more engageable and able to participate in her treatment; PO meds still ordered and should be offered with statement that they are court ordered and approved by HCP. 07/30/23 pt showing slight improvement- continue treatment plan 07/31/23 continue tx plan 08/01/23 continue tx plan Informed Consent: does not understand Reason for continued inpatient stay Substantial Risk for: harm to self, inability to function and rapid decompensation Time Spent With Patient Time: Total time managing care of this patient today ____ minutes.
[2023-08-02 08:15] VITALS: BP 144/79; PULSE 84; RESP 16; TEMP 36.4; O2SAT 99
[2023-08-02] MEDS: Ibuprofen 600 MG TABLET PO ×2 (08:49→19:58)
--- NOTE | 2023-08-02 10:31 | HO.PSYCHPN ---
Subjective Subjective Date of Service: 08/02/23 Reason For Visit: Schizoaffective disorder Interim History: Met with patient; discussed with team; reviewed chart -Intermittently angry and irritable. Said hello to chart writer but then when chart writer asked how she was doing said none of your business. -Made swiping motion as if to scratch towards several staff, saying it was a curse -Yelled at peer today due to disorganized thought that person should not be in group room; yell that another peer who was going into the community refrigerator since patient thinks that the refrigerator is her property; able to be redirected Mental Status Exam Mental Status Exam Narrative: Continues to appear psychotic and delusional and disorganized. slight improvement in interactions and mood. Patient Appearance: Unkempt (but showering today) Patient Orientation: Person, Place, Time and Situation Level of Consciousness: Awake Patient Behavior: Hyperactive, Resistive to Care, Impulsive and Poor Eye Contact Mood Description: Withdrawn Affect Description: Labile Patient Cognition Impaired: No Ability to Follow Directions: Poor Speech Pattern: Inappropriate and Loud Memory Description: Remote Impaired and Episodic Impaired Hallucinations: Auditory and Visual Delusions: Paranoid Ideation Thought Process: Incoherent Thought Content: positive for Preoccupation and positive for Incoherent Judgement: Poor Diagnostics Vital Signs (24Hr): Vital Signs - 24 hr 08/02/23 08:15 Temperature 97.5 F Pulse Rate 84 Respiratory Rate 16 Blood Pressure 144/79 H Pulse Oximetry 99 Oxygen Delivery Method Room Air BMI result Body Mass Index 34.1 Labs 06/25/23 17:59 06/25/23 17:59 Medications Medications Current Medications Al Hydroxide/Mg Hydroxide (Magnesium Hydrox/Alum Hydrox 30 Ml Oral.Susp) 30 ml PO Q6H PRN PRN Reason: Heartburn/Nausea Albuterol Sulfate (Albuterol Sulfate 90 Mcg 8 Gm Inhaler) 2 puff INHALE Q4H PRN PRN Reason: Wheezing Duloxetine HCl (Duloxetine Hcl 20 Mg Capsule.) 40 mg PO DAILY [facility] Last Admin: 08/02/23 08:51 Dose: Not Given Hydroxyzine HCl (Hydroxyzine Hcl 25 Mg Tablet) 25 mg PO Q6H PRN PRN Reason: Anxiety Ibuprofen (Ibuprofen 600 Mg Tablet) 600 mg PO Q6H PRN PRN Reason: moderate to severe pain Last Admin: 08/02/23 08:49 Dose: 600 mg Lorazepam (Lorazepam 0.5 Mg Tablet) 0.5 mg PO BID [facility] Last Admin: 08/02/23 08:52 Dose: Not Given Magnesium Hydroxide (Milk Of Magnesia 30 Ml Oral.Susp) 30 ml PO DAILY PRN PRN Reason: Constipation Metformin HCl (Metformin Hcl 500 Mg Tablet) 500 mg PO BID [facility] Last Admin: 08/02/23 08:52 Dose: Not Given Metronidazole (Metronidazole 0.75 % Gel 45 Gm Tube) 1 appl TOPICAL DAILY [facility] Last Admin: 08/02/23 08:52 Dose: Not Given Multivitamins/Vitamin C (Multivitamin Tablet) 1 tab PO DAILY [facility] Last Admin: 08/02/23 08:52 Dose: Not Given Nicotine Polacrilex (Nicotine Polacrilex Lozenge 2 Mg Lozenge) 2 mg BUCCAL Q2H PRN PRN Reason: Nicotine Cravings Olanzapine (Olanzapine Odt 10 Mg Tab.Rapdis) 10 mg TRANSLINGU DAILY PRN PRN Reason: Psychosis Trazodone HCl (Trazodone Hcl 50 Mg Tablet) 50 mg PO BEDTIME MRX1 PRN PRN Reason: Insomnia Vitamin D (Cholecalciferol (Vitamin D3) 10 Mcg Tablet) 10 mcg PO DAILY [facility] Last Admin: 08/02/23 08:51 Dose: Not Given Allergies Allergies Allergy/AdvReac Type Severity Reaction Status Date / Time acetaminophen [From TYLENOL] Allergy Intermediate HIVES Verified 08/28/22 09:48 meperidine [From Demerol] Allergy Unknown Verified 08/28/22 09:48 Assessment & Plan Assessment & Plan (1) Schizoaffective disorder: Status: Acute Code(s): F25.9 - Schizoaffective disorder, unspecified Assessment and Plan: Presents with decompensation of schizoaffective disorder, while in group living environment. Not adherence appears to be a factor. Patient not engaging with interview, evaluation or adherent with medications ie declining same. Unable to care for self. Being held on a Section 12 that will on 07/02/23. In the meantime will try and establish report and encourage medication adherence. Plan 06/29: encourage med adherence. 07/01/23: Ensure tid Will file Section VII on 07/02/23. 07/02/23: HCP activated today. Martine Elder is willing to serve in this role. [phone]. 07/03/23: Encourage treatment compliance 07/04/23 Encourage treatment compliance, begin process of validating HCP with the courts in order to provide pt with psychopharmacology options. 07/05/23 Encourage treatment. 07/07 remains disorganized in speech and behavior; refusing meds, paranoid -continue process of affirming HCP 07/08- Continue current plan. 07/09 continue current treatment plan 07/11/23 continue current treatment plan 07/12: Continue current regimen and plans 07/13: Continue current regimen and plans 07/14: Continue current plans and regimen 07/15/23: Continue current tx. Initiate regime 07/16. 07/17/23: Continue to encourage treatment. 07/18/23: Add prn Zyprexa IM if she refuses HS dosing 07/19: Continue current management and treatment plan. 07/20: Continue current management and treatment plan. 07/22: Continue tx. 07/23: Continue tx 07/24: Encourage milieu participation 07/26/23 continues too labile to interact with others- 07/27/23 - CTP encourage treatment 07/27/22 Continue tx plan; encourge meds as approved by HCP and court 07/29/23 schedule olanzepine discontinued after on hold for several days; awaiting invega sustenna to alleviate some of the psychosis in hopes patient more engageable and able to participate in her treatment; PO meds still ordered and should be offered with statement that they are court ordered and approved by HCP. 07/30/23 pt showing slight improvement- continue treatment plan 07/31/23 continue tx plan 08/01/23 continue tx plan 08/01 -Intermittently angry and irritable. Said hello to chart writer but then when chart writer asked how she was doing said none of your business. -Made swiping motion as if to scratch towards several staff, saying it was a curse -Yelled at peer today due to disorganized thought that person should not be in group room; yell that another peer who was going into the community refrigerator since patient thinks that the refrigerator is her property; able to be redirected Patient educated on: diagnosis Informed Consent: does not understand Reason for continued inpatient stay Substantial Risk for: inability to function Time Spent With Patient Time: Total time managing care of this patient today ____ minutes.
[2023-08-02 17:05] VITALS: RESP 18
[2023-08-03] MEDS: Ibuprofen 600 MG TABLET PO ×3 (06:06→21:13)
[2023-08-03 08:00] VITALS: BP 95/50; PULSE 109; TEMP 36.3; O2SAT 96
--- NOTE | 2023-08-03 11:04 | P.PNPSI_ITS ---
Subjective Subjective Date of Service: 08/03/23 Reason For Visit: Schizoaffective disorder Interim History: met with patient; discussed with team in rare moment, letting staff take BP, pt mild-moderately hypotensive but repeated and WNL remains irritable and disorganized; on approach pt screamed at property underwriter get out of my room... alerting staff. Later she walked by staff and suddenly yelled you're not a real doctor.. Mental Status Exam Mental Status Exam Narrative: Continues to appear psychotic and delusional and disorganized. slight improvement in interactions and mood. Patient Appearance: Unkempt (but showering today) Patient Orientation: Person and Place Level of Consciousness: Awake Patient Behavior: Hyperactive, Resistive to Care, Impulsive and Poor Eye Contact Mood Description: Withdrawn Affect Description: Labile Patient Cognition Impaired: No Ability to Follow Directions: Poor Speech Pattern: Inappropriate and Loud Memory Description: Remote Impaired and Episodic Impaired Hallucinations: Auditory and Visual Delusions: Paranoid Ideation Thought Process: Incoherent Thought Content: positive for Preoccupation and positive for Incoherent Judgement: Poor Diagnostics Vital Signs (24Hr): Vital Signs - 24 hr 08/02/23 17:05 08/03/23 08:00 Temperature 97.4 F Pulse Rate 109 H Respiratory Rate 18 Blood Pressure 95/50 L Pulse Oximetry 96 Oxygen Delivery Method Room Air BMI result Body Mass Index 34.1 Labs 06/25/23 17:59 06/25/23 17:59 Medications Medications Current Medications Al Hydroxide/Mg Hydroxide (Magnesium Hydrox/Alum Hydrox 30 Ml Oral.Susp) 30 ml PO Q6H PRN PRN Reason: Heartburn/Nausea Albuterol Sulfate (Albuterol Sulfate 90 Mcg 8 Gm Inhaler) 2 puff INHALE Q4H PRN PRN Reason: Wheezing Duloxetine HCl (Duloxetine Hcl 20 Mg Capsule.Dr) 40 mg PO DAILY [facility] Last Admin: 08/03/23 08:55 Dose: Not Given Hydroxyzine HCl (Hydroxyzine Hcl 25 Mg Tablet) 25 mg PO Q6H PRN PRN Reason: Anxiety Ibuprofen (Ibuprofen 600 Mg Tablet) 600 mg PO Q6H PRN PRN Reason: moderate to severe pain Last Admin: 08/03/23 06:06 Dose: 600 mg Lorazepam (Lorazepam 0.5 Mg Tablet) 0.5 mg PO BID [facility] Last Admin: 08/03/23 08:55 Dose: Not Given Magnesium Hydroxide (Milk Of Magnesia 30 Ml Oral.Susp) 30 ml PO DAILY PRN PRN Reason: Constipation Metformin HCl (Metformin Hcl 500 Mg Tablet) 500 mg PO BID [facility] Last Admin: 08/03/23 08:55 Dose: Not Given Metronidazole (Metronidazole 0.75 % Gel 45 Gm Tube) 1 appl TOPICAL DAILY [facility] Last Admin: 08/03/23 08:56 Dose: Not Given Multivitamins/Vitamin C (Multivitamin Tablet) 1 tab PO DAILY [facility] Last Admin: 08/03/23 08:56 Dose: Not Given Nicotine Polacrilex (Nicotine Polacrilex Lozenge 2 Mg Lozenge) 2 mg BUCCAL Q2H PRN PRN Reason: Nicotine Cravings Olanzapine (Olanzapine Odt 10 Mg Tab.Rapdis) 10 mg TRANSLINGU DAILY PRN PRN Reason: Psychosis Trazodone HCl (Trazodone Hcl 50 Mg Tablet) 50 mg PO BEDTIME MRX1 PRN PRN Reason: Insomnia Vitamin D (Cholecalciferol (Vitamin D3) 10 Mcg Tablet) 10 mcg PO DAILY [facility] Last Admin: 08/03/23 08:55 Dose: Not Given Allergies Allergies Allergy/AdvReac Type Severity Reaction Status Date / Time acetaminophen [From TYLENOL] Allergy Intermediate HIVES Verified 08/28/22 09:48 meperidine [From Demerol] Allergy Unknown Verified 08/28/22 09:48 Assessment & Plan Assessment & Plan (1) Schizoaffective disorder: Status: Acute Code(s): F25.9 - Schizoaffective disorder, unspecified Assessment and Plan: Presents with decompensation of schizoaffective disorder, while in group living environment. Not adherence appears to be a factor. Patient not engaging with interview, evaluation or adherent with medications ie declining same. Unable to care for self. Being held on a Section 12 that will on 07/02/23. In the meantime will try and establish report and encourage medication adherence. Plan 06/29: encourage med adherence. 07/01/23: Ensure tid Will file Section VII on 07/02/23. 07/02/23: HCP activated today. Martine Elder is willing to serve in this role. [phone]. 07/03/23: Encourage treatment compliance 07/04/23 Encourage treatment compliance, begin process of validating HCP with the courts in order to provide pt with psychopharmacology options. 07/05/23 Encourage treatment. 07/07 remains disorganized in speech and behavior; refusing meds, paranoid -continue process of affirming HCP 07/08- Continue current plan. 07/09 continue current treatment plan 07/11/23 continue current treatment plan 07/12: Continue current regimen and plans 07/13: Continue current regimen and plans 07/14: Continue current plans and regimen 07/15/23: Continue current tx. Initiate regime 07/16. 07/17/23: Continue to encourage treatment. 07/18/23: Add prn Zyprexa IM if she refuses HS dosing 07/19: Continue current management and treatment plan. 07/20: Continue current management and treatment plan. 07/22: Continue tx. 07/23: Continue tx 07/24: Encourage milieu participation 07/26/23 continues too labile to interact with others- 07/27/23 - CTP encourage treatment 07/27/22 Continue tx plan; encourge meds as approved by HCP and court 07/29/23 schedule olanzepine discontinued after on hold for several days; awaiting invega sustenna to alleviate some of the psychosis in hopes patient more engageable and able to participate in her treatment; PO meds still ordered and should be offered with statement that they are court ordered and approved by HCP. 07/30/23 pt showing slight improvement- continue treatment plan 07/31/23 continue tx plan 08/01/23 continue tx plan 08/01 -Intermittently angry and irritable. Said hello to property underwriter but then when property underwriter asked how she was doing said none of your business. -Made swiping motion as if to scratch towards several staff, saying it was a curse -Yelled at peer today due to disorganized thought that person should not be in group room; yell that another peer who was going into the community refrigerator since patient thinks that the refrigerator is her property; able to be redirected 08/02 screamed at property underwriter and refused to enage. Patient educated on: diagnosis Informed Consent: does not understand Reason for continued inpatient stay Substantial Risk for: inability to function Time Spent With Patient Time: Total time managing care of this patient today ____ minutes.
[2023-08-03 12:05] VITALS: BP 130/67
[2023-08-04 08:00] VITALS: BP 136/78; PULSE 95; RESP 18; TEMP 36.1; O2SAT 99
--- NOTE | 2023-08-04 09:34 | HO.PSYCHPN ---
Subjective Subjective Date of Service: 08/04/23 Reason For Visit: Schizoaffective disorder Interim History: met with patient; discussed with team Patient seems to be increasingly disorganized, walking briskly down the calle and yelling at peers, staff, making angry accusatory remarks and frightening some patients. Will not engage with production underwriter. Mental Status Exam Mental Status Exam Narrative: Continues to appear psychotic and delusional and disorganized. Patient Appearance: Unkempt Patient Orientation: Person and Place Level of Consciousness: Awake Patient Behavior: Hyperactive, Resistive to Care, Combative, Impulsive and Poor Eye Contact Mood Description: Angry Affect Description: Angry Patient Cognition Impaired: No Ability to Follow Directions: Poor Speech Pattern: Inappropriate and Loud Memory Description: Remote Impaired and Episodic Impaired Hallucinations: Auditory and Visual Delusions: Paranoid Ideation Thought Process: Distracted and Goal Oriented Thought Content: positive for Preoccupation and positive for Disorganized Judgement: Poor Judgement and Insight: impaired Diagnostics Vital Signs (24Hr): Vital Signs - 24 hr 08/03/23 12:05 08/04/23 08:00 Temperature 96.9 F Pulse Rate 95 Respiratory Rate 18 Blood Pressure 130/67 136/78 Pulse Oximetry 99 Oxygen Delivery Method Room Air BMI result Body Mass Index 34.1 Labs 06/25/23 17:59 06/25/23 17:59 Medications Medications Current Medications Al Hydroxide/Mg Hydroxide (Magnesium Hydrox/Alum Hydrox 30 Ml Oral.Susp) 30 ml PO Q6H PRN PRN Reason: Heartburn/Nausea Albuterol Sulfate (Albuterol Sulfate 90 Mcg 8 Gm Inhaler) 2 puff INHALE Q4H PRN PRN Reason: Wheezing Duloxetine HCl (Duloxetine Hcl 20 Mg Capsule.Dr) 40 mg PO DAILY [facility] Last Admin: 08/04/23 09:13 Dose: Not Given Hydroxyzine HCl (Hydroxyzine Hcl 25 Mg Tablet) 25 mg PO Q6H PRN PRN Reason: Anxiety Ibuprofen (Ibuprofen 600 Mg Tablet) 600 mg PO Q6H PRN PRN Reason: moderate to severe pain Last Admin: 08/03/23 21:13 Dose: 600 mg Lorazepam (Lorazepam 0.5 Mg Tablet) 0.5 mg PO BID [facility] Last Admin: 08/04/23 09:13 Dose: Not Given Magnesium Hydroxide (Milk Of Magnesia 30 Ml Oral.Susp) 30 ml PO DAILY PRN PRN Reason: Constipation Metformin HCl (Metformin Hcl 500 Mg Tablet) 500 mg PO BID [facility] Last Admin: 08/04/23 09:13 Dose: Not Given Metronidazole (Metronidazole 0.75 % Gel 45 Gm Tube) 1 appl TOPICAL DAILY [facility] Last Admin: 08/04/23 09:13 Dose: Not Given Multivitamins/Vitamin C (Multivitamin Tablet) 1 tab PO DAILY [facility] Last Admin: 08/04/23 09:13 Dose: Not Given Nicotine Polacrilex (Nicotine Polacrilex Lozenge 2 Mg Lozenge) 2 mg BUCCAL Q2H PRN PRN Reason: Nicotine Cravings Olanzapine (Olanzapine Odt 10 Mg Tab.Rapdis) 10 mg TRANSLINGU DAILY PRN PRN Reason: Psychosis Trazodone HCl (Trazodone Hcl 50 Mg Tablet) 50 mg PO BEDTIME MRX1 PRN PRN Reason: Insomnia Vitamin D (Cholecalciferol (Vitamin D3) 10 Mcg Tablet) 10 mcg PO DAILY [facility] Last Admin: 08/04/23 09:13 Dose: Not Given Allergies Allergies Allergy/AdvReac Type Severity Reaction Status Date / Time acetaminophen [From TYLENOL] Allergy Intermediate HIVES Verified 08/28/22 09:48 meperidine [From Demerol] Allergy Unknown Verified 08/28/22 09:48 Assessment & Plan Assessment & Plan (1) Schizoaffective disorder: Status: Acute Code(s): F25.9 - Schizoaffective disorder, unspecified Assessment and Plan: Presents with decompensation of schizoaffective disorder, while in group living environment. Not adherence appears to be a factor. Patient not engaging with interview, evaluation or adherent with medications ie declining same. Unable to care for self. Being held on a Section 12 that will on 07/02/23. In the meantime will try and establish report and encourage medication adherence. Plan 06/29: encourage med adherence. 07/01/23: Ensure tid Will file Section VII on 07/02/23. 07/02/23: HCP activated today. Martine Elder is willing to serve in this role. [phone]. 07/03/23: Encourage treatment compliance 07/04/23 Encourage treatment compliance, begin process of validating HCP with the courts in order to provide pt with psychopharmacology options. 07/05/23 Encourage treatment. 07/07 remains disorganized in speech and behavior; refusing meds, paranoid -continue process of affirming HCP 07/08- Continue current plan. 07/09 continue current treatment plan 07/11/23 continue current treatment plan 07/12: Continue current regimen and plans 07/13: Continue current regimen and plans 07/14: Continue current plans and regimen 07/15/23: Continue current tx. Initiate regime 07/16. 07/17/23: Continue to encourage treatment. 07/18/23: Add prn Zyprexa IM if she refuses HS dosing 07/19: Continue current management and treatment plan. 07/20: Continue current management and treatment plan. 07/22: Continue tx. 07/23: Continue tx 07/24: Encourage milieu participation 07/26/23 continues too labile to interact with others- 07/27/23 - CTP encourage treatment 07/27/22 Continue tx plan; encourge meds as approved by HCP and court 07/29/23 schedule olanzepine discontinued after on hold for several days; awaiting invega sustenna to alleviate some of the psychosis in hopes patient more engageable and able to participate in her treatment; PO meds still ordered and should be offered with statement that they are court ordered and approved by HCP. 07/30/23 pt showing slight improvement- continue treatment plan 07/31/23 continue tx plan 08/01/23 continue tx plan 08/01 -Intermittently angry and irritable. Said hello to production underwriter but then when production underwriter asked how she was doing said none of your business. -Made swiping motion as if to scratch towards several staff, saying it was a curse -Yelled at peer today due to disorganized thought that person should not be in group room; yell that another peer who was going into the community refrigerator since patient thinks that the refrigerator is her property; able to be redirected 08/02 screamed at production underwriter and refused to enage. 08/03 staff agree Patient seems to be increasingly disorganized, walking briskly down the calle and yelling at peers, staff, making angry accusatory remarks and frightening and provoking some patients, causing some patients to become angry response. Will not engage with production underwriter. -patient on Invega Sustenna however behaviors are problematic, upsetting and sometimes scary to both peers and staff. Patient psychotic illness has gone untreated for quite some time and it seems likely she will need p.o. to overlap long-acting medication. [employer] reached out to patient's healthcare proxy Brit Elder and left message to discuss treatment Reason for continued inpatient stay Substantial Risk for: inability to function Time Spent With Patient Time: Total time managing care of this patient today ____ minutes.
[2023-08-04] MEDS: Ibuprofen 600 MG TABLET PO ×2 (10:50→17:06)
[2023-08-04] MEDS: OLANZapine ODT 10 MG TAB.RAPDIS TRANSLINGU (17:34)
[2023-08-04 18:00] VITALS: RESP 18
[2023-08-05] MEDS: Haloperidol Lactate 5 MG/ML VIAL IM (05:20)
[2023-08-05] MEDS: LORazepam 2 MG/ML VIAL IM (05:20)
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
[2023-08-05] MEDS: Ibuprofen 600 MG TABLET PO ×2 (11:26→17:44)
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
[2023-08-05 18:00] VITALS: BP 129/87; PULSE 111; TEMP 36.1; O2SAT 99
[2023-08-05] MEDS: OLANZapine ODT 10 MG TAB.RAPDIS TRANSLINGU (18:50)
[2023-08-06] MEDS: OLANZapine ODT 10 MG TAB.RAPDIS TRANSLINGU ×2 (09:18→21:11)
[2023-08-06] MEDS: Ibuprofen 600 MG TABLET PO ×2 (09:20→17:42)
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
[2023-08-07] MEDS: OLANZapine ODT 10 MG TAB.RAPDIS TRANSLINGU ×2 (07:47→19:44)
[2023-08-07] MEDS: Ibuprofen 600 MG TABLET PO ×2 (07:48→16:25)
[2023-08-07 08:23] VITALS: RESP 18
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
[2023-08-07 18:55] VITALS: BP 130/81; PULSE 91; RESP 16; TEMP 36.1; O2SAT 99
[2023-08-08 06:00] VITALS: RESP 18
[2023-08-08] MEDS: Ibuprofen 600 MG TABLET PO ×2 (08:02→17:12)
[2023-08-08] MEDS: OLANZapine ODT 10 MG TAB.RAPDIS TRANSLINGU ×2 (08:02→21:41)
--- NOTE | 2023-08-08 14:37 | HO.PSYCHPN ---
Subjective Subjective Date of Service: 08/08/23 Reason For Visit: Schizoaffective disorder Subjective Notes: Conditional Voluntary Healthcare Proxy: Yes Guardianship: No Medical Problems Affecting Mental Status: No Interim History: Visable in milieu. Quiet, with ongoing lability when approached. Isolative with intermittent interactions to verbalize her needs. Team has encouraged pt to make a change of her clothing, which she was able to do with their encouragement. Added supervision needed when using the phone as team reports she has been calling 911. Medication Compliance: Yes (Olanzapine) Side effects from medications: No Attending Groups: No Review of Systems Acute medical concerns: No Medical Review of Systems: unchanged Review of Systems Review of Systems Yes Unobtainable due to mental status Mental Status Exam Mental Status Exam Patient Appearance: Disheveled Patient Orientation: Person and Place Level of Consciousness: Alert Patient Behavior: Guarded, Suspicious, Distractible and Good Eye Contact Mood Description: Blunted Affect Description: Blunted Patient Cognition Impaired: Yes Ability to Follow Directions: Fair Speech Pattern: Spontaneous Speech Memory Description: Remote Impaired Hallucinations: Auditory (appears to be responding at times, not consistently) Delusions: Paranoid Ideation Perceptual Disturbances: Derealization Thought Process: Illogical, Distracted, Rumination and Slowed Thinking Thought Content: positive for Circumstantial, positive for Perseveration, positive for Preoccupation, positive for Thought Blocking and positive for Tangential Judgement: Poor Diagnostics Vital Signs (24Hr): Vital Signs - 24 hr 08/07/23 18:55 08/08/23 06:00 Temperature 97.0 F Pulse Rate 91 Respiratory Rate 16 18 Blood Pressure 130/81 Pulse Oximetry 99 Oxygen Delivery Method Room Air BMI result Body Mass Index 34.1 Labs 06/25/23 17:59 06/25/23 17:59 Medications Medications Current Medications Al Hydroxide/Mg Hydroxide (Magnesium Hydrox/Alum Hydrox 30 Ml Oral.Susp) 30 ml PO Q6H PRN PRN Reason: Heartburn/Nausea Albuterol Sulfate (Albuterol Sulfate 90 Mcg 8 Gm Inhaler) 2 puff INHALE Q4H PRN PRN Reason: Wheezing Benztropine Mesylate (Benztropine Mesylate 1 Mg Tablet) 1 mg PO TID PRN PRN Reason: Extrapyramidal Effects Duloxetine HCl (Duloxetine Hcl 20 Mg Capsule.Dr) 40 mg PO DAILY [facility] Last Admin: 03/15/24 09:19 Dose: Not Given Hydroxyzine HCl (Hydroxyzine Hcl 25 Mg Tablet) 25 mg PO Q6H PRN PRN Reason: Anxiety Ibuprofen (Ibuprofen 600 Mg Tablet) 600 mg PO Q6H PRN PRN Reason: moderate to severe pain Last Admin: 08/08/23 08:02 Dose: 600 mg Lorazepam (Lorazepam 0.5 Mg Tablet) 0.5 mg PO BID [facility] Last Admin: 08/08/23 09:19 Dose: Not Given Magnesium Hydroxide (Milk Of Magnesia 30 Ml Oral.Susp) 30 ml PO DAILY PRN PRN Reason: Constipation Metformin HCl (Metformin Hcl 500 Mg Tablet) 500 mg PO BID [facility] Last Admin: 08/08/23 09:19 Dose: Not Given Metronidazole (Metronidazole 0.75 % Gel 45 Gm Tube) 1 appl TOPICAL DAILY [facility] Last Admin: 08/08/23 09:19 Dose: Not Given Multivitamins/Vitamin C (Multivitamin Tablet) 1 tab PO DAILY [facility] Last Admin: 08/08/23 09:19 Dose: Not Given Nicotine Polacrilex (Nicotine Polacrilex Lozenge 2 Mg Lozenge) 2 mg BUCCAL Q2H PRN PRN Reason: Nicotine Cravings Olanzapine (Olanzapine Odt 10 Mg Tab.Rapdis) 10 mg TRANSLINGU DAILY PRN PRN Reason: Psychosis Last Admin: 08/04/23 17:34 Dose: 10 mg Olanzapine (Olanzapine Odt 10 Mg Tab.Rapdis) 10 mg TRANSLINGU BID [facility] Last Admin: 08/08/23 08:02 Dose: 10 mg Olanzapine (Olanzapine 10 Mg Vial) 10 mg IM BID PRN PRN Reason: if refuses PO Zydis Paliperidone Palmitate (Paliperidone Palmitate 234 Mg/1.5 Ml Syringe) 234 mg IM Q30D [facility] Trazodone HCl (Trazodone Hcl 50 Mg Tablet) 50 mg PO BEDTIME MRX1 PRN PRN Reason: Insomnia Vitamin D (Cholecalciferol (Vitamin D3) 10 Mcg Tablet) 10 mcg PO DAILY [facility] Last Admin: 08/08/23 09:19 Dose: Not Given Allergies Allergies Allergy/AdvReac Type Severity Reaction Status Date / Time acetaminophen [From TYLENOL] Allergy Intermediate HIVES Verified 08/28/22 09:48 meperidine [From Demerol] Allergy Unknown Verified 08/28/22 09:48 Assessment & Plan Assessment & Plan (1) Schizoaffective disorder: Status: Acute Code(s): F25.9 - Schizoaffective disorder, unspecified Assessment and Plan: Presents with decompensation of schizoaffective disorder, while in group living environment. Not adherence appears to be a factor. Patient not engaging with interview, evaluation or adherent with medications ie declining same. Unable to care for self. Being held on a Section 12 that will on 07/02/23. In the meantime will try and establish report and encourage medication adherence. Plan 06/29: encourage med adherence. 07/01/23: Ensure tid Will file Section VII on 07/02/23. 07/02/23: HCP activated today. Martine Elder is willing to serve in this role. [phone]. 07/03/23: Encourage treatment compliance 07/04/23 Encourage treatment compliance, begin process of validating HCP with the courts in order to provide pt with psychopharmacology options. 07/05/23 Encourage treatment. 07/07 remains disorganized in speech and behavior; refusing meds, paranoid -continue process of affirming HCP 07/08- Continue current plan. 07/09 continue current treatment plan 07/11/23 continue current treatment plan 07/12: Continue current regimen and plans 07/13: Continue current regimen and plans 07/14: Continue current plans and regimen 07/15/23: Continue current tx. Initiate regime 07/16. 07/17/23: Continue to encourage treatment. 07/18/23: Add prn Zyprexa IM if she refuses HS dosing 07/19: Continue current management and treatment plan. 07/20: Continue current management and treatment plan. 07/22: Continue tx. 07/23: Continue tx 07/24: Encourage milieu participation 07/26/23 continues too labile to interact with others- 07/27/23 - CTP encourage treatment 07/27/22 Continue tx plan; encourge meds as approved by HCP and court 07/29/23 schedule olanzepine discontinued after on hold for several days; awaiting invega sustenna to alleviate some of the psychosis in hopes patient more engageable and able to participate in her treatment; PO meds still ordered and should be offered with statement that they are court ordered and approved by HCP. 07/30/23 pt showing slight improvement- continue treatment plan 07/31/23 continue tx plan 08/01/23 continue tx plan 08/01 -Intermittently angry and irritable. Said hello to va underwriter but then when va underwriter asked how she was doing said none of your business. -Made swiping motion as if to scratch towards several staff, saying it was a curse -Yelled at peer today due to disorganized thought that person should not be in group room; yell that another peer who was going into the community refrigerator since patient thinks that the refrigerator is her property; able to be redirected 08/02 screamed at va underwriter and refused to enage. 08/03 staff agree Patient seems to be increasingly disorganized, walking briskly down the calle and yelling at peers, staff, making angry accusatory remarks and frightening and provoking some patients, causing some patients to become angry response. Will not engage with va underwriter. -patient on Invega Sustenna however behaviors are problematic, upsetting and sometimes scary to both peers and staff. Patient psychotic illness has gone untreated for quite some time and it seems likely she will need p.o. to overlap long-acting medication. Business Services Specialist Sales reached out to patient's healthcare proxy Brit Elder and left message to discuss treatment 08/06/23- Continue tx. Pt today able to reach out and initiate discussion. Benztropine 1 mg tid prn EPS 08/07/23- Continue tx. 08/08/23- Continue tx. Informed Consent: does not understand Reason for continued inpatient stay Substantial Risk for: rapid decompensation Time Spent With Patient Time: Total time managing care of this patient today ____ minutes.
--- NOTE | 2023-08-09 08:52 | P.PNPSI_ITS ---
Subjective Subjective Date of Service: 08/09/23 Reason For Visit: Schizoaffective disorder Interim History: Attempted to see the patient but she declined. Discussed in rounds. Records and plans were reviewed. She is eating and sleeping adequately . She has been med compliant. Affect is reported to be somewhat improved. No changes were made today Review of Systems Review of Systems Yes Unobtainable due to mental status Mental Status Exam Mental Status Exam Narrative: Unable to conduct because of patient refusal Diagnostics Vital Signs (24Hr): BMI result Body Mass Index 34.1 Labs 06/25/23 17:59 06/25/23 17:59 Medications Medications Current Medications Al Hydroxide/Mg Hydroxide (Magnesium Hydrox/Alum Hydrox 30 Ml Oral.Susp) 30 ml PO Q6H PRN PRN Reason: Heartburn/Nausea Albuterol Sulfate (Albuterol Sulfate 90 Mcg 8 Gm Inhaler) 2 puff INHALE Q4H PRN PRN Reason: Wheezing Benztropine Mesylate (Benztropine Mesylate 1 Mg Tablet) 1 mg PO TID PRN PRN Reason: Extrapyramidal Effects Duloxetine HCl (Duloxetine Hcl 20 Mg Capsule.Dr) 40 mg PO DAILY [facility] Last Admin: 08/08/23 09:19 Dose: Not Given Hydroxyzine HCl (Hydroxyzine Hcl 25 Mg Tablet) 25 mg PO Q6H PRN PRN Reason: Anxiety Ibuprofen (Ibuprofen 600 Mg Tablet) 600 mg PO Q6H PRN PRN Reason: moderate to severe pain Last Admin: 08/08/23 17:12 Dose: 600 mg Lorazepam (Lorazepam 0.5 Mg Tablet) 0.5 mg PO BID [facility] Last Admin: 08/08/23 21:58 Dose: Not Given Magnesium Hydroxide (Milk Of Magnesia 30 Ml Oral.Susp) 30 ml PO DAILY PRN PRN Reason: Constipation Metformin HCl (Metformin Hcl 500 Mg Tablet) 500 mg PO BID [facility] Last Admin: 08/08/23 21:59 Dose: Not Given Metronidazole (Metronidazole 0.75 % Gel 45 Gm Tube) 1 appl TOPICAL DAILY [facility] Last Admin: 08/08/23 09:19 Dose: Not Given Multivitamins/Vitamin C (Multivitamin Tablet) 1 tab PO DAILY [facility] Last Admin: 08/08/23 09:19 Dose: Not Given Nicotine Polacrilex (Nicotine Polacrilex Lozenge 2 Mg Lozenge) 2 mg BUCCAL Q2H PRN PRN Reason: Nicotine Cravings Olanzapine (Olanzapine Odt 10 Mg Tab.Rapdis) 10 mg TRANSLINGU DAILY PRN PRN Reason: Psychosis Last Admin: 08/04/23 17:34 Dose: 10 mg Olanzapine (Olanzapine Odt 10 Mg Tab.Rapdis) 10 mg TRANSLINGU BID [facility] Last Admin: 08/08/23 21:41 Dose: 10 mg Olanzapine (Olanzapine 10 Mg Vial) 10 mg IM BID PRN PRN Reason: if refuses PO Zydis Paliperidone Palmitate (Paliperidone Palmitate 234 Mg/1.5 Ml Syringe) 234 mg IM Q30D [facility] Trazodone HCl (Trazodone Hcl 50 Mg Tablet) 50 mg PO BEDTIME MRX1 PRN PRN Reason: Insomnia Vitamin D (Cholecalciferol (Vitamin D3) 10 Mcg Tablet) 10 mcg PO DAILY [facility] Last Admin: 08/08/23 09:19 Dose: Not Given Allergies Allergies Allergy/AdvReac Type Severity Reaction Status Date / Time acetaminophen [From TYLENOL] Allergy Intermediate HIVES Verified 08/28/22 09:48 meperidine [From Demerol] Allergy Unknown Verified 08/28/22 09:48 Assessment & Plan Assessment & Plan (1) Schizoaffective disorder: Status: Acute Code(s): F25.9 - Schizoaffective disorder, unspecified Assessment and Plan: Presents with decompensation of schizoaffective disorder, while in group living environment. Not adherence appears to be a factor. Patient not engaging with interview, evaluation or adherent with medications ie declining same. Unable to care for self. Being held on a Section 12 that will on 07/02/23. In the meantime will try and establish report and encourage medication adherence. Plan 06/29: encourage med adherence. 07/01/23: Ensure tid Will file Section VII on 07/02/23. 07/02/23: HCP activated today. Martine Elder is willing to serve in this role. [phone]. 07/03/23: Encourage treatment compliance 07/04/23 Encourage treatment compliance, begin process of validating HCP with the courts in order to provide pt with psychopharmacology options. 07/05/23 Encourage treatment. 07/07 remains disorganized in speech and behavior; refusing meds, paranoid -continue process of affirming HCP 07/08- Continue current plan. 07/09 continue current treatment plan 07/11/23 continue current treatment plan 07/12: Continue current regimen and plans 07/13: Continue current regimen and plans 07/14: Continue current plans and regimen 07/15/23: Continue current tx. Initiate regime 07/16. 07/17/23: Continue to encourage treatment. 07/18/23: Add prn Zyprexa IM if she refuses HS dosing 07/19: Continue current management and treatment plan. 07/20: Continue current management and treatment plan. 07/22: Continue tx. 07/23: Continue tx 07/24: Encourage milieu participation 07/26/23 continues too labile to interact with others- 07/27/23 - CTP encourage treatment 07/27/22 Continue tx plan; encourge meds as approved by HCP and court 07/29/23 schedule olanzepine discontinued after on hold for several days; awaiting invega sustenna to alleviate some of the psychosis in hopes patient more engageable and able to participate in her treatment; PO meds still ordered and should be offered with statement that they are court ordered and approved by HCP. 07/30/23 pt showing slight improvement- continue treatment plan 07/31/23 continue tx plan 08/01/23 continue tx plan 08/01 -Intermittently angry and irritable. Said hello to information writer but then when information writer asked how she was doing said none of your business. -Made swiping motion as if to scratch towards several staff, saying it was a curse -Yelled at peer today due to disorganized thought that person should not be in group room; yell that another peer who was going into the community refrigerator since patient thinks that the refrigerator is her property; able to be redirected 08/02 screamed at information writer and refused to enage. 08/03 staff agree Patient seems to be increasingly disorganized, walking briskly down the calle and yelling at peers, staff, making angry accusatory remarks and frightening and provoking some patients, causing some patients to become angry response. Will not engage with information writer. -patient on Invega Sustenna however behaviors are problematic, upsetting and sometimes scary to both peers and staff. Patient psychotic illness has gone untreated for quite some time and it seems likely she will need p.o. to overlap long-acting medication. Maintenance Craftsman reached out to patient's healthcare proxy Brit Elder and left message to discuss treatment 08/06/23- Continue tx. Pt today able to reach out and initiate discussion. Benztropine 1 mg tid prn EPS 08/07/23- Continue tx. 08/08/23- Continue tx. 08/09/2023: Continue current regimen and plans. Reason for continued inpatient stay Substantial Risk for: med/psych decompensation Time Spent With Patient Time: Total time managing care of this patient today ____ minutes.
[2023-08-09] MEDS: OLANZapine ODT 10 MG TAB.RAPDIS TRANSLINGU ×2 (09:55→21:52)
[2023-08-09] MEDS: Ibuprofen 600 MG TABLET PO ×3 (09:55→21:59)
[2023-08-10 06:00] VITALS: RESP 18
[2023-08-10] MEDS: OLANZapine ODT 10 MG TAB.RAPDIS TRANSLINGU ×2 (07:50→21:18)
[2023-08-10] MEDS: Ibuprofen 600 MG TABLET PO ×2 (07:50→16:31)
--- NOTE | 2023-08-10 08:58 | HO.PSYCHPN ---
Subjective Subjective Date of Service: 08/10/23 Reason For Visit: Schizoaffective disorder Subjective Notes: Conditional Voluntary Interim History: Patient was seen and discussed in rounds today. Records and plans were reviewed. She did finally interact with me, minimally!, stating that ?you are not a doctor?. She continues to walk up and down the calle, listening to music. Periods of agitation. P.r.n. medications continue to be helpful. No complaints or side effects. Eating and sleeping adequately Review of Systems Review of Systems Yes Unobtainable due to mental status Mental Status Exam Mental Status Exam Narrative: In today's visit she is alert, minimally pleasant and minimally interactive. Normal speech/loud. No eye contact. Affect is labile. Probably responding to internal stimuli. No SI. Cognitively could not be assessed. Judgment could not be assessed Diagnostics Vital Signs (24Hr): BMI result Body Mass Index 34.1 Labs 06/25/23 17:59 06/25/23 17:59 Medications Medications Current Medications Al Hydroxide/Mg Hydroxide (Magnesium Hydrox/Alum Hydrox 30 Ml Oral.Susp) 30 ml PO Q6H PRN PRN Reason: Heartburn/Nausea Albuterol Sulfate (Albuterol Sulfate 90 Mcg 8 Gm Inhaler) 2 puff INHALE Q4H PRN PRN Reason: Wheezing Benztropine Mesylate (Benztropine Mesylate 1 Mg Tablet) 1 mg PO TID PRN PRN Reason: Extrapyramidal Effects Duloxetine HCl (Duloxetine Hcl 20 Mg Capsule.Dr) 40 mg PO DAILY [facility] Last Admin: 08/10/23 07:51 Dose: Not Given Hydroxyzine HCl (Hydroxyzine Hcl 25 Mg Tablet) 25 mg PO Q6H PRN PRN Reason: Anxiety Ibuprofen (Ibuprofen 600 Mg Tablet) 600 mg PO Q6H PRN PRN Reason: moderate to severe pain Last Admin: 08/10/23 07:50 Dose: 600 mg Lorazepam (Lorazepam 0.5 Mg Tablet) 0.5 mg PO BID [facility] Last Admin: 08/10/23 07:51 Dose: Not Given Magnesium Hydroxide (Milk Of Magnesia 30 Ml Oral.Susp) 30 ml PO DAILY PRN PRN Reason: Constipation Metformin HCl (Metformin Hcl 500 Mg Tablet) 500 mg PO BID [facility] Last Admin: 08/10/23 07:51 Dose: Not Given Metronidazole (Metronidazole 0.75 % Gel 45 Gm Tube) 1 appl TOPICAL DAILY [facility] Last Admin: 08/10/23 07:51 Dose: Not Given Multivitamins/Vitamin C (Multivitamin Tablet) 1 tab PO DAILY [facility] Last Admin: 08/10/23 07:51 Dose: Not Given Nicotine Polacrilex (Nicotine Polacrilex Lozenge 2 Mg Lozenge) 2 mg BUCCAL Q2H PRN PRN Reason: Nicotine Cravings Olanzapine (Olanzapine Odt 10 Mg Tab.Rapdis) 10 mg TRANSLINGU DAILY PRN PRN Reason: Psychosis Last Admin: 08/04/23 17:34 Dose: 10 mg Olanzapine (Olanzapine Odt 10 Mg Tab.Rapdis) 10 mg TRANSLINGU BID [facility] Last Admin: 08/10/23 07:50 Dose: 10 mg Olanzapine (Olanzapine 10 Mg Vial) 10 mg IM BID PRN PRN Reason: if refuses PO Zydis Paliperidone Palmitate (Paliperidone Palmitate 234 Mg/1.5 Ml Syringe) 234 mg IM Q30D [facility] Trazodone HCl (Trazodone Hcl 50 Mg Tablet) 50 mg PO BEDTIME MRX1 PRN PRN Reason: Insomnia Vitamin D (Cholecalciferol (Vitamin D3) 10 Mcg Tablet) 10 mcg PO DAILY [facility] Last Admin: 08/10/23 07:50 Dose: Not Given Allergies Allergies Allergy/AdvReac Type Severity Reaction Status Date / Time acetaminophen [From TYLENOL] Allergy Intermediate HIVES Verified 08/28/22 09:48 meperidine [From Demerol] Allergy Unknown Verified 08/28/22 09:48 Assessment & Plan Assessment & Plan (1) Schizoaffective disorder: Status: Acute Code(s): F25.9 - Schizoaffective disorder, unspecified Assessment and Plan: Presents with decompensation of schizoaffective disorder, while in group living environment. Not adherence appears to be a factor. Patient not engaging with interview, evaluation or adherent with medications ie declining same. Unable to care for self. Being held on a Section 12 that will on 07/02/23. In the meantime will try and establish report and encourage medication adherence. Plan 06/29: encourage med adherence. 07/01/23: Ensure tid Will file Section VII on 07/02/23. 07/02/23: HCP activated today. Martine Elder is willing to serve in this role. [phone]. 07/03/23: Encourage treatment compliance 07/04/23 Encourage treatment compliance, begin process of validating HCP with the courts in order to provide pt with psychopharmacology options. 07/05/23 Encourage treatment. 07/07 remains disorganized in speech and behavior; refusing meds, paranoid -continue process of affirming HCP 07/08- Continue current plan. 07/09 continue current treatment plan 07/11/23 continue current treatment plan 07/12: Continue current regimen and plans 07/13: Continue current regimen and plans 07/14: Continue current plans and regimen 07/15/23: Continue current tx. Initiate regime 07/16. 07/17/23: Continue to encourage treatment. 07/18/23: Add prn Zyprexa IM if she refuses HS dosing 07/19: Continue current management and treatment plan. 07/20: Continue current management and treatment plan. 07/22: Continue tx. 07/23: Continue tx 07/24: Encourage milieu participation 07/26/23 continues too labile to interact with others- 07/27/23 - CTP encourage treatment 07/27/22 Continue tx plan; encourge meds as approved by HCP and court 07/29/23 schedule olanzepine discontinued after on hold for several days; awaiting invega sustenna to alleviate some of the psychosis in hopes patient more engageable and able to participate in her treatment; PO meds still ordered and should be offered with statement that they are court ordered and approved by HCP. 07/30/23 pt showing slight improvement- continue treatment plan 07/31/23 continue tx plan 08/01/23 continue tx plan 08/01 -Intermittently angry and irritable. Said hello to personal lines underwriter but then when personal lines underwriter asked how she was doing said none of your business. -Made swiping motion as if to scratch towards several staff, saying it was a curse -Yelled at peer today due to disorganized thought that person should not be in group room; yell that another peer who was going into the community refrigerator since patient thinks that the refrigerator is her property; able to be redirected 08/02 screamed at personal lines underwriter and refused to enage. 08/03 staff agree Patient seems to be increasingly disorganized, walking briskly down the calle and yelling at peers, staff, making angry accusatory remarks and frightening and provoking some patients, causing some patients to become angry response. Will not engage with personal lines underwriter. -patient on Invega Sustenna however behaviors are problematic, upsetting and sometimes scary to both peers and staff. Patient psychotic illness has gone untreated for quite some time and it seems likely she will need p.o. to overlap long-acting medication. Automobile Rental Clerk reached out to patient's healthcare proxy Brit Elder and left message to discuss treatment 08/06/23- Continue tx. Pt today able to reach out and initiate discussion. Benztropine 1 mg tid prn EPS 08/07/23- Continue tx. 08/08/23- Continue tx. 08/09/2023: Continue current regimen and plans. 08/10/2023: Continue current regimen and plans Reason for continued inpatient stay Substantial Risk for: med/psych decompensation Time Spent With Patient Time: Total time managing care of this patient today ____ minutes.
[2023-08-11] MEDS: Ibuprofen 600 MG TABLET PO (06:15)
[2023-08-11 08:01] VITALS: RESP 18
[2023-08-11] MEDS: OLANZapine ODT 10 MG TAB.RAPDIS TRANSLINGU ×2 (09:05→20:15)
--- NOTE | 2023-08-11 18:13 | HO.PSYCHPN ---
Subjective Subjective Date of Service: 08/11/23 Reason For Visit: Schizoaffective disorder Subjective Notes: Conditional Voluntary Healthcare Proxy: No Guardianship: No Medical Problems Affecting Mental Status: No Interim History: Visable in milieu, yet isolative. Irritable when approached, with confusion. [place] in passing today. Minimal eye contact. No behavioral outbursts today per team. Medication Compliance: Yes Side effects from medications: No Attending Groups: No Review of Systems Acute medical concerns: No Medical Review of Systems: unchanged Review of Systems Review of Systems Yes Unobtainable due to mental status Mental Status Exam Mental Status Exam Patient Appearance: Disheveled Patient Orientation: Person and Place Level of Consciousness: Alert Patient Behavior: Guarded, Suspicious, Distractible and Good Eye Contact Mood Description: Blunted Affect Description: Blunted Patient Cognition Impaired: Yes Ability to Follow Directions: Fair Speech Pattern: Spontaneous Speech Memory Description: Remote Impaired Hallucinations: Auditory (appears to be responding at times, not consistently) Delusions: Paranoid Ideation Perceptual Disturbances: Derealization Thought Process: Illogical, Distracted, Rumination and Slowed Thinking Thought Content: positive for Circumstantial, positive for Perseveration, positive for Preoccupation, positive for Thought Blocking and positive for Tangential Judgement: Poor Diagnostics Vital Signs (24Hr): Vital Signs - 24 hr 08/11/23 08:01 Respiratory Rate 18 BMI result Body Mass Index 34.1 Labs 06/25/23 17:59 06/25/23 17:59 Medications Medications Current Medications Al Hydroxide/Mg Hydroxide (Magnesium Hydrox/Alum Hydrox 30 Ml Oral.Susp) 30 ml PO Q6H PRN PRN Reason: Heartburn/Nausea Albuterol Sulfate (Albuterol Sulfate 90 Mcg 8 Gm Inhaler) 2 puff INHALE Q4H PRN PRN Reason: Wheezing Benztropine Mesylate (Benztropine Mesylate 1 Mg Tablet) 1 mg PO TID PRN PRN Reason: Extrapyramidal Effects Duloxetine HCl (Duloxetine Hcl 20 Mg Capsule.) 40 mg PO DAILY [facility] Last Admin: 08/11/23 09:13 Dose: Not Given Hydroxyzine HCl (Hydroxyzine Hcl 25 Mg Tablet) 25 mg PO Q6H PRN PRN Reason: Anxiety Ibuprofen (Ibuprofen 600 Mg Tablet) 600 mg PO Q6H PRN PRN Reason: moderate to severe pain Last Admin: 08/11/23 06:15 Dose: 600 mg Lorazepam (Lorazepam 0.5 Mg Tablet) 0.5 mg PO BID [facility] Last Admin: 08/11/23 09:15 Dose: Not Given Magnesium Hydroxide (Milk Of Magnesia 30 Ml Oral.Susp) 30 ml PO DAILY PRN PRN Reason: Constipation Metformin HCl (Metformin Hcl 500 Mg Tablet) 500 mg PO BID [facility] Last Admin: 08/11/23 09:15 Dose: Not Given Metronidazole (Metronidazole 0.75 % Gel 45 Gm Tube) 1 appl TOPICAL DAILY [facility] Last Admin: 08/11/23 09:15 Dose: Not Given Multivitamins/Vitamin C (Multivitamin Tablet) 1 tab PO DAILY [facility] Last Admin: 08/11/23 09:15 Dose: Not Given Nicotine Polacrilex (Nicotine Polacrilex Lozenge 2 Mg Lozenge) 2 mg BUCCAL Q2H PRN PRN Reason: Nicotine Cravings Olanzapine (Olanzapine Odt 10 Mg Tab.Rapdis) 10 mg TRANSLINGU DAILY PRN PRN Reason: Psychosis Last Admin: 08/04/23 17:34 Dose: 10 mg Olanzapine (Olanzapine Odt 10 Mg Tab.Rapdis) 10 mg TRANSLINGU BID [facility] Last Admin: 08/11/23 09:05 Dose: 10 mg Olanzapine (Olanzapine 10 Mg Vial) 10 mg IM BID PRN PRN Reason: if refuses PO Zydis Paliperidone Palmitate (Paliperidone Palmitate 234 Mg/1.5 Ml Syringe) 234 mg IM Q30D [facility] Trazodone HCl (Trazodone Hcl 50 Mg Tablet) 50 mg PO BEDTIME MRX1 PRN PRN Reason: Insomnia Vitamin D (Cholecalciferol (Vitamin D3) 10 Mcg Tablet) 10 mcg PO DAILY [facility] Last Admin: 08/11/23 09:13 Dose: Not Given Allergies Allergies Allergy/AdvReac Type Severity Reaction Status Date / Time acetaminophen [From TYLENOL] Allergy Intermediate HIVES Verified 08/28/22 09:48 meperidine [From Demerol] Allergy Unknown Verified 08/28/22 09:48 Assessment & Plan Assessment & Plan (1) Schizoaffective disorder: Status: Acute Code(s): F25.9 - Schizoaffective disorder, unspecified Assessment and Plan: Presents with decompensation of schizoaffective disorder, while in group living environment. Not adherence appears to be a factor. Patient not engaging with interview, evaluation or adherent with medications ie declining same. Unable to care for self. Being held on a Section 12 that will on 07/02/23. In the meantime will try and establish report and encourage medication adherence. Plan 06/29: encourage med adherence. 07/01/23: Ensure tid Will file Section VII on 07/02/23. 07/02/23: HCP activated today. Martine Elder is willing to serve in this role. [phone]. 07/03/23: Encourage treatment compliance 07/04/23 Encourage treatment compliance, begin process of validating HCP with the courts in order to provide pt with psychopharmacology options. 07/05/23 Encourage treatment. 07/07 remains disorganized in speech and behavior; refusing meds, paranoid -continue process of affirming HCP 07/08- Continue current plan. 07/09 continue current treatment plan 07/11/23 continue current treatment plan 07/12: Continue current regimen and plans 07/13: Continue current regimen and plans 07/14: Continue current plans and regimen 07/15/23: Continue current tx. Initiate regime 07/16. 07/17/23: Continue to encourage treatment. 07/18/23: Add prn Zyprexa IM if she refuses HS dosing 07/19: Continue current management and treatment plan. 07/20: Continue current management and treatment plan. 07/22: Continue tx. 07/23: Continue tx 07/24: Encourage milieu participation 07/26/23 continues too labile to interact with others- 07/27/23 - CTP encourage treatment 07/27/22 Continue tx plan; encourge meds as approved by HCP and court 07/29/23 schedule olanzepine discontinued after on hold for several days; awaiting invega sustenna to alleviate some of the psychosis in hopes patient more engageable and able to participate in her treatment; PO meds still ordered and should be offered with statement that they are court ordered and approved by HCP. 07/30/23 pt showing slight improvement- continue treatment plan 07/31/23 continue tx plan 08/01/23 continue tx plan 08/01 -Intermittently angry and irritable. Said hello to check writer but then when check writer asked how she was doing said none of your business. -Made swiping motion as if to scratch towards several staff, saying it was a curse -Yelled at peer today due to disorganized thought that person should not be in group room; yell that another peer who was going into the community refrigerator since patient thinks that the refrigerator is her property; able to be redirected 08/02 screamed at check writer and refused to enage. 08/03 staff agree Patient seems to be increasingly disorganized, walking briskly down the calle and yelling at peers, staff, making angry accusatory remarks and frightening and provoking some patients, causing some patients to become angry response. Will not engage with check writer. -patient on Invega Sustenna however behaviors are problematic, upsetting and sometimes scary to both peers and staff. Patient psychotic illness has gone untreated for quite some time and it seems likely she will need p.o. to overlap long-acting medication. Risk Officer reached out to patient's healthcare proxy Brit Elder and left message to discuss treatment 08/06/23- Continue tx. Pt today able to reach out and initiate discussion. Benztropine 1 mg tid prn EPS 08/07/23- Continue tx. 08/08/23- Continue tx. 08/09/2023: Continue current regimen and plans. 08/10/2023: Continue current regimen and plans 08/11/23: Continue current regime and care plan. Informed Consent: does not understand Reason for continued inpatient stay Substantial Risk for: rapid decompensation Time Spent With Patient Time: Total time managing care of this patient today ____ minutes.
[2023-08-12] MEDS: Ibuprofen 600 MG TABLET PO ×2 (05:04→16:44)
[2023-08-12 08:01] VITALS: RESP 18
[2023-08-12] MEDS: OLANZapine ODT 10 MG TAB.RAPDIS TRANSLINGU ×2 (08:38→21:21)
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
[2023-08-12 18:00] VITALS: RESP 18
[2023-08-13] MEDS: Ibuprofen 600 MG TABLET PO (08:50)
[2023-08-13] MEDS: OLANZapine ODT 10 MG TAB.RAPDIS TRANSLINGU ×2 (09:09→20:11)
[2023-08-13] MEDS: OLANZapine 10 MG VIAL IM (09:17)
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
[2023-08-13 18:40] VITALS: BP 122/67; PULSE 131; RESP 16; TEMP 36; O2SAT 96
[2023-08-14] MEDS: Ibuprofen 600 MG TABLET PO ×2 (08:58→15:45)
[2023-08-14] MEDS: OLANZapine ODT 10 MG TAB.RAPDIS TRANSLINGU ×2 (08:58→19:52)
--- NOTE | 2023-08-14 13:13 | HO.PSYCHPN ---
Subjective Subjective Date of Service: 08/14/23 Reason For Visit: Schizoaffective disorder Subjective Notes: Conditional Voluntary Healthcare Proxy: Yes Guardianship: No Medical Problems Affecting Mental Status: No Interim History: Visable, walking in the calle, listening to music, in the common area. Irritable, Labile, poor attention to ADL's. Threatening lawsuits to team. Tells this specifications writer today, I know you are Putin in disguise I know what you are doing. Later in the day pt is pleasant, calls tw by name, has brief dialogue about a project she worked on in group. Medication Compliance: Yes Side effects from medications: No Attending Groups: Intermittent Review of Systems Acute medical concerns: No Medical Review of Systems: unchanged Review of Systems Review of Systems Yes all other systems are reviewed and are negative Mental Status Exam Mental Status Exam Patient Appearance: Disheveled Patient Orientation: Person and Place Level of Consciousness: Alert Patient Behavior: Guarded, Suspicious, Distractible and Good Eye Contact Mood Description: Blunted Affect Description: Blunted Patient Cognition Impaired: Yes Ability to Follow Directions: Fair Speech Pattern: Spontaneous Speech Memory Description: Remote Impaired Hallucinations: Auditory (appears to be responding at times, not consistently) Delusions: Paranoid Ideation Perceptual Disturbances: Derealization Thought Process: Illogical, Distracted, Rumination and Slowed Thinking Thought Content: positive for Circumstantial, positive for Perseveration, positive for Preoccupation, positive for Thought Blocking and positive for Tangential Judgement: Poor Diagnostics Vital Signs (24Hr): Vital Signs - 24 hr 08/13/23 18:40 Temperature 96.8 F Pulse Rate 131 H Respiratory Rate 16 Blood Pressure 122/67 Pulse Oximetry 96 Oxygen Delivery Method Room Air BMI result Body Mass Index 34.1 Labs 06/25/23 17:59 06/25/23 17:59 Medications Medications Current Medications Al Hydroxide/Mg Hydroxide (Magnesium Hydrox/Alum Hydrox 30 Ml Oral.Susp) 30 ml PO Q6H PRN PRN Reason: Heartburn/Nausea Albuterol Sulfate (Albuterol Sulfate 90 Mcg 8 Gm Inhaler) 2 puff INHALE Q4H PRN PRN Reason: Wheezing Benztropine Mesylate (Benztropine Mesylate 1 Mg Tablet) 1 mg PO TID PRN PRN Reason: Extrapyramidal Effects Duloxetine HCl (Duloxetine Hcl 20 Mg Capsule.) 40 mg PO DAILY [facility] Last Admin: 08/14/23 10:40 Dose: Not Given Hydroxyzine HCl (Hydroxyzine Hcl 25 Mg Tablet) 25 mg PO Q6H PRN PRN Reason: Anxiety Ibuprofen (Ibuprofen 600 Mg Tablet) 600 mg PO Q6H PRN PRN Reason: moderate to severe pain Last Admin: 08/14/23 08:58 Dose: 600 mg Lorazepam (Lorazepam 0.5 Mg Tablet) 0.5 mg PO BID [facility] Last Admin: 08/14/23 10:40 Dose: Not Given Magnesium Hydroxide (Milk Of Magnesia 30 Ml Oral.Susp) 30 ml PO DAILY PRN PRN Reason: Constipation Metformin HCl (Metformin Hcl 500 Mg Tablet) 500 mg PO BID [facility] Last Admin: 08/14/23 10:40 Dose: Not Given Metronidazole (Metronidazole 0.75 % Gel 45 Gm Tube) 1 appl TOPICAL DAILY [facility] Last Admin: 08/14/23 10:40 Dose: Not Given Multivitamins/Vitamin C (Multivitamin Tablet) 1 tab PO DAILY [facility] Last Admin: 08/14/23 10:41 Dose: Not Given Nicotine Polacrilex (Nicotine Polacrilex Lozenge 2 Mg Lozenge) 2 mg BUCCAL Q2H PRN PRN Reason: Nicotine Cravings Olanzapine (Olanzapine Odt 10 Mg Tab.Rapdis) 10 mg TRANSLINGU DAILY PRN PRN Reason: Psychosis Last Admin: 08/04/23 17:34 Dose: 10 mg Olanzapine (Olanzapine Odt 10 Mg Tab.Rapdis) 10 mg TRANSLINGU BID [facility] Last Admin: 08/14/23 08:58 Dose: 10 mg Olanzapine (Olanzapine 10 Mg Vial) 10 mg IM BID PRN PRN Reason: if refuses PO Zydis Last Admin: 08/13/23 09:17 Dose: 10 mg Paliperidone Palmitate (Paliperidone Palmitate 234 Mg/1.5 Ml Syringe) 234 mg IM Q30D [facility] Trazodone HCl (Trazodone Hcl 50 Mg Tablet) 50 mg PO BEDTIME MRX1 PRN PRN Reason: Insomnia Vitamin D (Cholecalciferol (Vitamin D3) 10 Mcg Tablet) 10 mcg PO DAILY [facility] Last Admin: 08/14/23 10:40 Dose: Not Given Allergies Allergies Allergy/AdvReac Type Severity Reaction Status Date / Time acetaminophen [From TYLENOL] Allergy Intermediate HIVES Verified 08/28/22 09:48 meperidine [From Demerol] Allergy Unknown Verified 08/28/22 09:48 Assessment & Plan Assessment & Plan (1) Schizoaffective disorder: Status: Acute Code(s): F25.9 - Schizoaffective disorder, unspecified Assessment and Plan: Presents with decompensation of schizoaffective disorder, while in group living environment. Not adherence appears to be a factor. Patient not engaging with interview, evaluation or adherent with medications ie declining same. Unable to care for self. Being held on a Section 12 that will on 07/02/23. In the meantime will try and establish report and encourage medication adherence. Plan 06/29: encourage med adherence. 07/01/23: Ensure tid Will file Section VII on 07/02/23. 07/02/23: HCP activated today. Martine Elder is willing to serve in this role. [phone]. 07/03/23: Encourage treatment compliance 07/04/23 Encourage treatment compliance, begin process of validating HCP with the courts in order to provide pt with psychopharmacology options. 07/05/23 Encourage treatment. 07/07 remains disorganized in speech and behavior; refusing meds, paranoid -continue process of affirming HCP 07/08- Continue current plan. 07/09 continue current treatment plan 07/11/23 continue current treatment plan 07/12: Continue current regimen and plans 07/13: Continue current regimen and plans 07/14: Continue current plans and regimen 07/15/23: Continue current tx. Initiate regime 07/16. 07/17/23: Continue to encourage treatment. 07/18/23: Add prn Zyprexa IM if she refuses HS dosing 07/19: Continue current management and treatment plan. 07/20: Continue current management and treatment plan. 07/22: Continue tx. 07/23: Continue tx 07/24: Encourage milieu participation 07/26/23 continues too labile to interact with others- 07/27/23 - CTP encourage treatment 07/27/22 Continue tx plan; encourge meds as approved by HCP and court 07/29/23 schedule olanzepine discontinued after on hold for several days; awaiting invega sustenna to alleviate some of the psychosis in hopes patient more engageable and able to participate in her treatment; PO meds still ordered and should be offered with statement that they are court ordered and approved by HCP. 07/30/23 pt showing slight improvement- continue treatment plan 07/31/23 continue tx plan 08/01/23 continue tx plan 08/01 -Intermittently angry and irritable. Said hello to specifications writer but then when specifications writer asked how she was doing said none of your business. -Made swiping motion as if to scratch towards several staff, saying it was a curse -Yelled at peer today due to disorganized thought that person should not be in group room; yell that another peer who was going into the community refrigerator since patient thinks that the refrigerator is her property; able to be redirected 08/02 screamed at specifications writer and refused to enage. 08/03 staff agree Patient seems to be increasingly disorganized, walking briskly down the calle and yelling at peers, staff, making angry accusatory remarks and frightening and provoking some patients, causing some patients to become angry response. Will not engage with specifications writer. -patient on Invega Sustenna however behaviors are problematic, upsetting and sometimes scary to both peers and staff. Patient psychotic illness has gone untreated for quite some time and it seems likely she will need p.o. to overlap long-acting medication. Photo Booth Operator reached out to patient's healthcare proxy Brit Elder and left message to discuss treatment 08/06/23- Continue tx. Pt today able to reach out and initiate discussion. Benztropine 1 mg tid prn EPS 08/07/23- Continue tx. 08/08/23- Continue tx. 08/09/2023: Continue current regimen and plans. 08/10/2023: Continue current regimen and plans 08/12/23: Diagnostics 08/13/23. 08/13/23: Continue tx. 08/14/23: Continue tx. Informed Consent: does not understand Reason for continued inpatient stay Substantial Risk for: rapid decompensation Time Spent With Patient Time: Total time managing care of this patient today ____ minutes.
[2023-08-14 17:50] VITALS: BP 128/79; PULSE 114; RESP 16; TEMP 36.6; O2SAT 98
[2023-08-15] MEDS: OLANZapine ODT 10 MG TAB.RAPDIS TRANSLINGU ×2 (08:42→20:13)
[2023-08-15] MEDS: Ibuprofen 600 MG TABLET PO ×2 (08:42→20:13)
[2023-08-15 09:29] VITALS: RESP 18
--- NOTE | 2023-08-15 18:20 | HO.PSYCHPN ---
Subjective Subjective Date of Service: 08/15/23 Reason For Visit: Schizoaffective disorder Subjective Notes: Conditional Voluntary Healthcare Proxy: Yes Guardianship: No Medical Problems Affecting Mental Status: No Interim History: Visable in milieu. Spending more time in the common areas with peers. Positive interactions today with tw-spontaneous smile, no threatening statements. Appears somewhat calmer and relaxed Medication Compliance: Yes Side effects from medications: No Attending Groups: No Review of Systems Acute medical concerns: No Medical Review of Systems: unchanged Review of Systems Review of Systems Yes Unobtainable due to mental status Mental Status Exam Mental Status Exam Patient Appearance: Disheveled Patient Orientation: Person and Place Level of Consciousness: Alert Patient Behavior: Guarded, Suspicious, Distractible and Good Eye Contact Mood Description: Blunted Affect Description: Blunted Patient Cognition Impaired: Yes Ability to Follow Directions: Fair Speech Pattern: Spontaneous Speech Memory Description: Remote Impaired Hallucinations: Auditory (appears to be responding at times, not consistently) Delusions: Paranoid Ideation Perceptual Disturbances: Derealization Thought Process: Illogical, Distracted, Rumination and Slowed Thinking Thought Content: positive for Circumstantial, positive for Perseveration, positive for Preoccupation, positive for Thought Blocking and positive for Tangential Judgement: Poor Diagnostics Vital Signs (24Hr): Vital Signs - 24 hr 08/15/23 09:29 Respiratory Rate 18 BMI result Body Mass Index 34.1 Labs 06/25/23 17:59 06/25/23 17:59 Medications Medications Current Medications Al Hydroxide/Mg Hydroxide (Magnesium Hydrox/Alum Hydrox 30 Ml Oral.Susp) 30 ml PO Q6H PRN PRN Reason: Heartburn/Nausea Albuterol Sulfate (Albuterol Sulfate 90 Mcg 8 Gm Inhaler) 2 puff INHALE Q4H PRN PRN Reason: Wheezing Benztropine Mesylate (Benztropine Mesylate 1 Mg Tablet) 1 mg PO TID PRN PRN Reason: Extrapyramidal Effects Duloxetine HCl (Duloxetine Hcl 20 Mg Capsule.Dr) 40 mg PO DAILY [facility] Last Admin: 08/15/23 08:55 Dose: Not Given Hydroxyzine HCl (Hydroxyzine Hcl 25 Mg Tablet) 25 mg PO Q6H PRN PRN Reason: Anxiety Ibuprofen (Ibuprofen 600 Mg Tablet) 600 mg PO Q6H PRN PRN Reason: moderate to severe pain Last Admin: 03/22/24 08:42 Dose: 600 mg Lorazepam (Lorazepam 0.5 Mg Tablet) 0.5 mg PO BID [facility] Last Admin: 08/15/23 08:55 Dose: Not Given Magnesium Hydroxide (Milk Of Magnesia 30 Ml Oral.Susp) 30 ml PO DAILY PRN PRN Reason: Constipation Metformin HCl (Metformin Hcl 500 Mg Tablet) 500 mg PO BID [facility] Last Admin: 08/15/23 08:56 Dose: Not Given Metronidazole (Metronidazole 0.75 % Gel 45 Gm Tube) 1 appl TOPICAL DAILY [facility] Last Admin: 08/15/23 08:56 Dose: Not Given Multivitamins/Vitamin C (Multivitamin Tablet) 1 tab PO DAILY [facility] Last Admin: 08/15/23 08:56 Dose: Not Given Nicotine Polacrilex (Nicotine Polacrilex Lozenge 2 Mg Lozenge) 2 mg BUCCAL Q2H PRN PRN Reason: Nicotine Cravings Olanzapine (Olanzapine Odt 10 Mg Tab.Rapdis) 10 mg TRANSLINGU DAILY PRN PRN Reason: Psychosis Last Admin: 08/04/23 17:34 Dose: 10 mg Olanzapine (Olanzapine Odt 10 Mg Tab.Rapdis) 10 mg TRANSLINGU BID [facility] Last Admin: 08/15/23 08:42 Dose: 10 mg Olanzapine (Olanzapine 10 Mg Vial) 10 mg IM BID PRN PRN Reason: if refuses PO Zydis Last Admin: 08/13/23 09:17 Dose: 10 mg Paliperidone Palmitate (Paliperidone Palmitate 234 Mg/1.5 Ml Syringe) 234 mg IM Q30D [facility] Trazodone HCl (Trazodone Hcl 50 Mg Tablet) 50 mg PO BEDTIME MRX1 PRN PRN Reason: Insomnia Vitamin D (Cholecalciferol (Vitamin D3) 10 Mcg Tablet) 10 mcg PO DAILY [facility] Last Admin: 08/15/23 08:55 Dose: Not Given Allergies Allergies Allergy/AdvReac Type Severity Reaction Status Date / Time acetaminophen [From TYLENOL] Allergy Intermediate HIVES Verified 08/28/22 09:48 meperidine [From Demerol] Allergy Unknown Verified 08/28/22 09:48 Assessment & Plan Assessment & Plan (1) Schizoaffective disorder: Status: Acute Code(s): F25.9 - Schizoaffective disorder, unspecified Assessment and Plan: Presents with decompensation of schizoaffective disorder, while in group living environment. Not adherence appears to be a factor. Patient not engaging with interview, evaluation or adherent with medications ie declining same. Unable to care for self. Being held on a Section 12 that will on 07/02/23. In the meantime will try and establish report and encourage medication adherence. Plan 06/29: encourage med adherence. 07/01/23: Ensure tid Will file Section VII on 07/02/23. 07/02/23: HCP activated today. Martine Elder is willing to serve in this role. [phone]. 07/03/23: Encourage treatment compliance 07/04/23 Encourage treatment compliance, begin process of validating HCP with the courts in order to provide pt with psychopharmacology options. 07/05/23 Encourage treatment. 07/07 remains disorganized in speech and behavior; refusing meds, paranoid -continue process of affirming HCP 07/08- Continue current plan. 07/09 continue current treatment plan 07/11/23 continue current treatment plan 07/12: Continue current regimen and plans 07/13: Continue current regimen and plans 07/14: Continue current plans and regimen 07/15/23: Continue current tx. Initiate regime 07/16. 07/17/23: Continue to encourage treatment. 07/18/23: Add prn Zyprexa IM if she refuses HS dosing 07/19: Continue current management and treatment plan. 07/20: Continue current management and treatment plan. 07/22: Continue tx. 07/23: Continue tx 07/24: Encourage milieu participation 07/26/23 continues too labile to interact with others- 07/27/23 - CTP encourage treatment 07/27/22 Continue tx plan; encourge meds as approved by HCP and court 07/29/23 schedule olanzepine discontinued after on hold for several days; awaiting invega sustenna to alleviate some of the psychosis in hopes patient more engageable and able to participate in her treatment; PO meds still ordered and should be offered with statement that they are court ordered and approved by HCP. 07/30/23 pt showing slight improvement- continue treatment plan 07/31/23 continue tx plan 08/01/23 continue tx plan 08/01 -Intermittently angry and irritable. Said hello to music writer but then when music writer asked how she was doing said none of your business. -Made swiping motion as if to scratch towards several staff, saying it was a curse -Yelled at peer today due to disorganized thought that person should not be in group room; yell that another peer who was going into the community refrigerator since patient thinks that the refrigerator is her property; able to be redirected 08/02 screamed at music writer and refused to enage. 08/03 staff agree Patient seems to be increasingly disorganized, walking briskly down the calle and yelling at peers, staff, making angry accusatory remarks and frightening and provoking some patients, causing some patients to become angry response. Will not engage with music writer. -patient on Invega Sustenna however behaviors are problematic, upsetting and sometimes scary to both peers and staff. Patient psychotic illness has gone untreated for quite some time and it seems likely she will need p.o. to overlap long-acting medication. [employer] House Supervisor reached out to patient's healthcare proxy Brit Elder and left message to discuss treatment 08/06/23- Continue tx. Pt today able to reach out and initiate discussion. Benztropine 1 mg tid prn EPS 08/07/23- Continue tx. 08/08/23- Continue tx. 08/09/2023: Continue current regimen and plans. 08/10/2023: Continue current regimen and plans 08/12/23: Diagnostics 08/13/23. 08/13/23: Continue tx. 08/14/23: Continue tx. 08/15/23: Continue tx. Informed Consent: does not understand Reason for continued inpatient stay Substantial Risk for: rapid decompensation Time Spent With Patient Time: Total time managing care of this patient today ____ minutes.
[2023-08-16] MEDS: Ibuprofen 600 MG TABLET PO ×4 (02:46→21:39)
[2023-08-16 08:14] VITALS: RESP 18
[2023-08-16] MEDS: OLANZapine ODT 10 MG TAB.RAPDIS TRANSLINGU ×2 (08:44→21:39)
--- NOTE | 2023-08-16 09:47 | HO.PSYCHPN ---
Subjective Subjective Date of Service: 08/16/23 Reason For Visit: Schizoaffective disorder Interim History: Visable in milieu. You are not a doctor! the patient yells at this radio script writer and walks into her room. Staff report she selectively interacts with people. Overall calmer. Spending more time in the common areas with peers. No reports of SI Review of Systems Review of Systems reports chronic musculoskeletal pain Yes all other systems are reviewed and are negative and Unobtainable due to mental status Mental Status Exam Mental Status Exam Narrative: In today's visit she is alert, minimally pleasant and minimally interactive. Normal speech/loud. No eye contact. Affect is labile. Probably responding to internal stimuli. No SI. Cognitively could not be assessed. Judgment could not be assessed Patient Appearance: Disheveled Patient Orientation: Person and Place Level of Consciousness: Alert Patient Behavior: Guarded, Suspicious, Distractible and Good Eye Contact Mood Description: Blunted Affect Description: Blunted Patient Cognition Impaired: Yes Ability to Follow Directions: Fair Speech Pattern: Spontaneous Speech Memory Description: Remote Impaired Diagnostics Vital Signs (24Hr): Vital Signs - 24 hr 08/16/23 08:14 Respiratory Rate 18 BMI result Body Mass Index 34.1 Labs 06/25/23 17:59 06/25/23 17:59 Medications Medications Current Medications Al Hydroxide/Mg Hydroxide (Magnesium Hydrox/Alum Hydrox 30 Ml Oral.Susp) 30 ml PO Q6H PRN PRN Reason: Heartburn/Nausea Albuterol Sulfate (Albuterol Sulfate 90 Mcg 8 Gm Inhaler) 2 puff INHALE Q4H PRN PRN Reason: Wheezing Benztropine Mesylate (Benztropine Mesylate 1 Mg Tablet) 1 mg PO TID PRN PRN Reason: Extrapyramidal Effects Duloxetine HCl (Duloxetine Hcl 20 Mg Capsule.Dr) 40 mg PO DAILY [facility]S INCLUDE 234 BEDS AT [facility] Last Admin: 08/16/23 07:52 Dose: Not Given Hydroxyzine HCl (Hydroxyzine Hcl 25 Mg Tablet) 25 mg PO Q6H PRN PRN Reason: Anxiety Ibuprofen (Ibuprofen 600 Mg Tablet) 600 mg PO Q6H PRN PRN Reason: moderate to severe pain Last Admin: 08/16/23 08:42 Dose: 600 mg Lorazepam (Lorazepam 0.5 Mg Tablet) 0.5 mg PO BID [facility]S [facility]CLUDE 234 BEDS AT [facility] Last Admin: 08/16/23 07:52 Dose: Not Given Magnesium Hydroxide (Milk Of Magnesia 30 Ml Oral.Susp) 30 ml PO DAILY PRN PRN Reason: Constipation Metformin HCl (Metformin Hcl 500 Mg Tablet) 500 mg PO BID COUNTS INCLUDE 234 BEDS AT [facility] Last Admin: 08/16/23 07:52 Dose: Not Given Metronidazole (Metronidazole 0.75 % Gel 45 Gm Tube) 1 appl TOPICAL DAILY [facility]S INCLUDE 234 BEDS AT [facility] Last Admin: 08/16/23 07:52 Dose: Not Given Multivitamins/Vitamin C (Multivitamin Tablet) 1 tab PO DAILY [facility]S INCLUDE 234 BEDS AT [facility] Last Admin: 08/16/23 07:52 Dose: Not Given Nicotine Polacrilex (Nicotine Polacrilex Lozenge 2 Mg Lozenge) 2 mg BUCCAL Q2H PRN PRN Reason: Nicotine Cravings Olanzapine (Olanzapine Odt 10 Mg Tab.Rapdis) 10 mg TRANSLINGU DAILY PRN PRN Reason: Psychosis Last Admin: 08/04/23 17:34 Dose: 10 mg Olanzapine (Olanzapine Odt 10 Mg Tab.Rapdis) 10 mg TRANSLINGU BID COUNTS INCLUDE 234 BEDS AT [facility] Last Admin: 08/16/23 08:44 Dose: 10 mg Olanzapine (Olanzapine 10 Mg Vial) 10 mg IM BID PRN PRN Reason: if refuses PO Zydis Last Admin: 08/13/23 09:17 Dose: 10 mg Paliperidone Palmitate (Paliperidone Palmitate 234 Mg/1.5 Ml Syringe) 234 mg IM Q30D COUNTS INCLUDE 234 BEDS AT [facility] Trazodone HCl (Trazodone Hcl 50 Mg Tablet) 50 mg PO BEDTIME MRX1 PRN PRN Reason: Insomnia Vitamin D (Cholecalciferol (Vitamin D3) 10 Mcg Tablet) 10 mcg PO DAILY COUNTS INCLUDE 234 BEDS AT [facility] Last Admin: 08/16/23 07:52 Dose: Not Given Allergies Allergies Allergy/AdvReac Type Severity Reaction Status Date / Time acetaminophen [From TYLENOL] Allergy Intermediate HIVES Verified 08/28/22 09:48 meperidine [From Demerol] Allergy Unknown Verified 08/28/22 09:48 Assessment & Plan Assessment & Plan (1) Schizoaffective disorder: Status: Acute Code(s): F25.9 - Schizoaffective disorder, unspecified Assessment and Plan: Presents with decompensation of schizoaffective disorder, while in group living environment. Not adherence appears to be a factor. Patient not engaging with interview, evaluation or adherent with medications ie declining same. Unable to care for self. Being held on a Section 12 that will on 07/02/23. In the meantime will try and establish report and encourage medication adherence. Plan 06/29: encourage med adherence. 07/01/23: Ensure tid Will file Section VII on 07/02/23. 07/02/23: HCP activated today. Martine Elder is willing to serve in this role. [phone]. 07/03/23: Encourage treatment compliance 07/04/23 Encourage treatment compliance, begin process of validating HCP with the courts in order to provide pt with psychopharmacology options. 07/05/23 Encourage treatment. 07/07 remains disorganized in speech and behavior; refusing meds, paranoid -continue process of affirming HCP 07/08- Continue current plan. 07/09 continue current treatment plan 07/11/23 continue current treatment plan 07/12: Continue current regimen and plans 07/13: Continue current regimen and plans 07/14: Continue current plans and regimen 07/15/23: Continue current tx. Initiate regime 07/16. 07/17/23: Continue to encourage treatment. 07/18/23: Add prn Zyprexa IM if she refuses HS dosing 07/19: Continue current management and treatment plan. 07/20: Continue current management and treatment plan. 07/22: Continue tx. 07/23: Continue tx 07/24: Encourage milieu participation 07/26/23 continues too labile to interact with others- 07/27/23 - CTP encourage treatment 07/27/22 Continue tx plan; encourge meds as approved by HCP and court 07/29/23 schedule olanzepine discontinued after on hold for several days; awaiting invega sustenna to alleviate some of the psychosis in hopes patient more engageable and able to participate in her treatment; PO meds still ordered and should be offered with statement that they are court ordered and approved by HCP. 07/30/23 pt showing slight improvement- continue treatment plan 07/31/23 continue tx plan 08/01/23 continue tx plan 08/01 -Intermittently angry and irritable. Said hello to radio script writer but then when radio script writer asked how she was doing said none of your business. -Made swiping motion as if to scratch towards several staff, saying it was a curse -Yelled at peer today due to disorganized thought that person should not be in group room; yell that another peer who was going into the community refrigerator since patient thinks that the refrigerator is her property; able to be redirected 08/02 screamed at radio script writer and refused to enage. 08/03 staff agree Patient seems to be increasingly disorganized, walking briskly down the calle and yelling at peers, staff, making angry accusatory remarks and frightening and provoking some patients, causing some patients to become angry response. Will not engage with radio script writer. -patient on Invega Sustenna however behaviors are problematic, upsetting and sometimes scary to both peers and staff. Patient psychotic illness has gone untreated for quite some time and it seems likely she will need p.o. to overlap long-acting medication. Human Resources Executive reached out to patient's healthcare proxy Brit Elder and left message to discuss treatment 08/06/23- Continue tx. Pt today able to reach out and initiate discussion. Benztropine 1 mg tid prn EPS 08/07/23- Continue tx. 08/08/23- Continue tx. 08/09/2023: Continue current regimen and plans. 08/10/2023: Continue current regimen and plans 08/12/23: Diagnostics 08/13/23. 08/13/23: Continue tx. 08/14/23: Continue tx. 08/15/23: Continue tx. 08/15: continue current management and treatment plan. Reason for continued inpatient stay Substantial Risk for: inability to function and rapid decompensation Time Spent With Patient Time: Total time managing care of this patient today ____ minutes.
[2023-08-16 17:33] VITALS: RESP 16
[2023-08-17] MEDS: Ibuprofen 600 MG TABLET PO ×3 (05:26→20:52)
[2023-08-17 08:00] VITALS: PULSE 84; TEMP 36.9; O2SAT 98
--- NOTE | 2023-08-17 09:06 | P.PNPSI_ITS ---
Subjective Subjective Date of Service: 08/17/23 Reason For Visit: Schizoaffective disorder Interim History: Visible in milieu. More pleasant interactions with the staff. Once approached however, she loudly says You are not a doctor! Staff report she selectively interacts with people. Overall calmer. Spending more time in the common areas with peers. No reports of SI Review of Systems Review of Systems reports chronic musculoskeletal pain Yes all other systems are reviewed and are negative and Unobtainable due to mental status Mental Status Exam Mental Status Exam Narrative: In today's visit she is alert, minimally pleasant and minimally interactive. Normal speech/loud. No eye contact. Affect is labile. Probably responding to internal stimuli. No SI. Cognitively could not be assessed. Judgment could not be assessed Patient Appearance: Disheveled Patient Orientation: Person and Place Level of Consciousness: Alert Patient Behavior: Guarded, Suspicious, Distractible and Good Eye Contact Mood Description: Blunted Affect Description: Blunted Patient Cognition Impaired: Yes Ability to Follow Directions: Fair Speech Pattern: Spontaneous Speech Memory Description: Remote Impaired Diagnostics Vital Signs (24Hr): Vital Signs - 24 hr 08/16/23 17:33 08/17/23 08:00 Temperature 98.4 F Pulse Rate 84 Respiratory Rate 16 Pulse Oximetry 98 Oxygen Delivery Method Room Air BMI result Body Mass Index 34.1 Labs 06/25/23 17:59 06/25/23 17:59 Medications Medications Current Medications Al Hydroxide/Mg Hydroxide (Magnesium Hydrox/Alum Hydrox 30 Ml Oral.Susp) 30 ml PO Q6H PRN PRN Reason: Heartburn/Nausea Albuterol Sulfate (Albuterol Sulfate 90 Mcg 8 Gm Inhaler) 2 puff INHALE Q4H PRN PRN Reason: Wheezing Benztropine Mesylate (Benztropine Mesylate 1 Mg Tablet) 1 mg PO TID PRN PRN Reason: Extrapyramidal Effects Duloxetine HCl (Duloxetine Hcl 20 Mg Capsule.Dr) 40 mg PO DAILY [facility] Last Admin: 08/16/23 07:52 Dose: Not Given Hydroxyzine HCl (Hydroxyzine Hcl 25 Mg Tablet) 25 mg PO Q6H PRN PRN Reason: Anxiety Ibuprofen (Ibuprofen 600 Mg Tablet) 600 mg PO Q6H PRN PRN Reason: moderate to severe pain Last Admin: 08/17/23 05:26 Dose: 600 mg Lorazepam (Lorazepam 0.5 Mg Tablet) 0.5 mg PO BID [facility] Last Admin: 08/16/23 21:41 Dose: Not Given Magnesium Hydroxide (Milk Of Magnesia 30 Ml Oral.Susp) 30 ml PO DAILY PRN PRN Reason: Constipation Metformin HCl (Metformin Hcl 500 Mg Tablet) 500 mg PO BID [facility] Last Admin: 08/16/23 21:41 Dose: Not Given Metronidazole (Metronidazole 0.75 % Gel 45 Gm Tube) 1 appl TOPICAL DAILY [facility] Last Admin: 08/16/23 07:52 Dose: Not Given Multivitamins/Vitamin C (Multivitamin Tablet) 1 tab PO DAILY [facility] Last Admin: 08/16/23 07:52 Dose: Not Given Nicotine Polacrilex (Nicotine Polacrilex Lozenge 2 Mg Lozenge) 2 mg BUCCAL Q2H PRN PRN Reason: Nicotine Cravings Olanzapine (Olanzapine Odt 10 Mg Tab.Rapdis) 10 mg TRANSLINGU DAILY PRN PRN Reason: Psychosis Last Admin: 08/04/23 17:34 Dose: 10 mg Olanzapine (Olanzapine Odt 10 Mg Tab.Rapdis) 10 mg TRANSLINGU BID [facility] Last Admin: 08/16/23 21:39 Dose: 10 mg Olanzapine (Olanzapine 10 Mg Vial) 10 mg IM BID PRN PRN Reason: if refuses PO Zydis Last Admin: 08/13/23 09:17 Dose: 10 mg Paliperidone Palmitate (Paliperidone Palmitate 234 Mg/1.5 Ml Syringe) 234 mg IM Q30D [facility] Trazodone HCl (Trazodone Hcl 50 Mg Tablet) 50 mg PO BEDTIME MRX1 PRN PRN Reason: Insomnia Vitamin D (Cholecalciferol (Vitamin D3) 10 Mcg Tablet) 10 mcg PO DAILY [facility] Last Admin: 08/16/23 07:52 Dose: Not Given Allergies Allergies Allergy/AdvReac Type Severity Reaction Status Date / Time acetaminophen [From TYLENOL] Allergy Intermediate HIVES Verified 08/28/22 09:48 meperidine [From Demerol] Allergy Unknown Verified 08/28/22 09:48 Assessment & Plan Assessment & Plan (1) Schizoaffective disorder: Status: Acute Code(s): F25.9 - Schizoaffective disorder, unspecified Assessment and Plan: Presents with decompensation of schizoaffective disorder, while in group living environment. Not adherence appears to be a factor. Patient not engaging with interview, evaluation or adherent with medications ie declining same. Unable to care for self. Being held on a Section 12 that will on 07/02/23. In the meantime will try and establish report and encourage medication adherence. Plan 06/29: encourage med adherence. 07/01/23: Ensure tid Will file Section VII on 07/02/23. 07/02/23: HCP activated today. Martine Elder is willing to serve in this role. [phone]. 07/03/23: Encourage treatment compliance 07/04/23 Encourage treatment compliance, begin process of validating HCP with the courts in order to provide pt with psychopharmacology options. 07/05/23 Encourage treatment. 07/07 remains disorganized in speech and behavior; refusing meds, paranoid -continue process of affirming HCP 07/08- Continue current plan. 07/09 continue current treatment plan 07/11/23 continue current treatment plan 07/12: Continue current regimen and plans 07/13: Continue current regimen and plans 07/14: Continue current plans and regimen 07/15/23: Continue current tx. Initiate regime 07/16. 07/17/23: Continue to encourage treatment. 07/18/23: Add prn Zyprexa IM if she refuses HS dosing 07/19: Continue current management and treatment plan. 07/20: Continue current management and treatment plan. 07/22: Continue tx. 07/23: Continue tx 07/24: Encourage milieu participation 07/26/23 continues too labile to interact with others- 07/27/23 - CTP encourage treatment 07/27/22 Continue tx plan; encourge meds as approved by HCP and court 07/29/23 schedule olanzepine discontinued after on hold for several days; awaiting invega sustenna to alleviate some of the psychosis in hopes patient more engageable and able to participate in her treatment; PO meds still ordered and should be offered with statement that they are court ordered and approved by HCP. 07/30/23 pt showing slight improvement- continue treatment plan 07/31/23 continue tx plan 08/01/23 continue tx plan 08/01 -Intermittently angry and irritable. Said hello to commercial underwriter but then when commercial underwriter asked how she was doing said none of your business. -Made swiping motion as if to scratch towards several staff, saying it was a curse -Yelled at peer today due to disorganized thought that person should not be in group room; yell that another peer who was going into the community refrigerator since patient thinks that the refrigerator is her property; able to be redirected 08/02 screamed at commercial underwriter and refused to enage. 08/03 staff agree Patient seems to be increasingly disorganized, walking briskly down the calle and yelling at peers, staff, making angry accusatory remarks and frightening and provoking some patients, causing some patients to become angry response. Will not engage with commercial underwriter. -patient on Invega Sustenna however behaviors are problematic, upsetting and sometimes scary to both peers and staff. Patient psychotic illness has gone untreated for quite some time and it seems likely she will need p.o. to overlap long-acting medication. Warning Coordination Meteorologist reached out to patient's healthcare proxy Brit Elder and left message to discuss treatment 08/06/23- Continue tx. Pt today able to reach out and initiate discussion. Benztropine 1 mg tid prn EPS 08/07/23- Continue tx. 08/08/23- Continue tx. 08/09/2023: Continue current regimen and plans. 08/10/2023: Continue current regimen and plans 08/12/23: Diagnostics 08/13/23. 08/13/23: Continue tx. 08/14/23: Continue tx. 08/15/23: Continue tx. 08/15: continue current management and treatment plan. 08/16: continue current management and treatment plan. Reason for continued inpatient stay Substantial Risk for: inability to function and rapid decompensation Time Spent With Patient Time: Total time managing care of this patient today ____ minutes.
[2023-08-17] MEDS: OLANZapine ODT 10 MG TAB.RAPDIS TRANSLINGU ×2 (09:08→20:50)
[2023-08-18 06:00] VITALS: RESP 18
[2023-08-18] MEDS: OLANZapine ODT 10 MG TAB.RAPDIS TRANSLINGU ×2 (08:30→19:59)
[2023-08-18] MEDS: Ibuprofen 600 MG TABLET PO (08:32)
--- NOTE | 2023-08-18 10:44 | HO.PSYCHPN ---
Subjective Subjective Date of Service: 08/18/23 Reason For Visit: Schizoaffective disorder Subjective Notes: Conditional Voluntary Healthcare Proxy: Yes Guardianship: No Medical Problems Affecting Mental Status: No Interim History: Diagnostics ordered today. Pt is visable in milieu-making eye contact today, initiating logical conversation, smiling at times. Overall appears with less lability. Remains mostly on the periphery of the unit with isolation however with less overall irritability. Accepting mandatory meds only. Medication Compliance: Yes Side effects from medications: No Attending Groups: Intermittent Review of Systems Acute medical concerns: No Medical Review of Systems: unchanged Review of Systems Review of Systems Yes all other systems are reviewed and are negative (denies) Mental Status Exam Mental Status Exam Patient Appearance: Disheveled Patient Orientation: Person and Place Level of Consciousness: Alert Patient Behavior: Guarded, Talkative and Good Eye Contact Mood Description: Constricted and Labile Affect Description: Constricted and Labile Patient Cognition Impaired: Yes Ability to Follow Directions: Fair Speech Pattern: Spontaneous Speech Memory Description: Remote Impaired Hallucinations: Auditory Delusions: Paranoid Ideation Perceptual Disturbances: Derealization Thought Process: Distracted Thought Content: positive for [place] and positive for Circumstantial Depressive Symptoms: Increased Irritability Judgement: Poor Diagnostics Vital Signs (24Hr): Vital Signs - 24 hr 08/18/23 06:00 Respiratory Rate 18 BMI result Body Mass Index 34.1 Labs 06/25/23 17:59 06/25/23 17:59 Medications Medications Current Medications Al Hydroxide/Mg Hydroxide (Magnesium Hydrox/Alum Hydrox 30 Ml Oral.Susp) 30 ml PO Q6H PRN PRN Reason: Heartburn/Nausea Albuterol Sulfate (Albuterol Sulfate 90 Mcg 8 Gm Inhaler) 2 puff INHALE Q4H PRN PRN Reason: Wheezing Benztropine Mesylate (Benztropine Mesylate 1 Mg Tablet) 1 mg PO TID PRN PRN Reason: Extrapyramidal Effects Duloxetine HCl (Duloxetine Hcl 20 Mg Capsule.Dr) 40 mg PO DAILY [facility] Last Admin: 08/18/23 08:43 Dose: Not Given Hydroxyzine HCl (Hydroxyzine Hcl 25 Mg Tablet) 25 mg PO Q6H PRN PRN Reason: Anxiety Ibuprofen (Ibuprofen 600 Mg Tablet) 600 mg PO Q6H PRN PRN Reason: moderate to severe pain Last Admin: 08/18/23 08:32 Dose: 600 mg Lorazepam (Lorazepam 0.5 Mg Tablet) 0.5 mg PO BID [facility] Last Admin: 08/18/23 08:43 Dose: Not Given Magnesium Hydroxide (Milk Of Magnesia 30 Ml Oral.Susp) 30 ml PO DAILY PRN PRN Reason: Constipation Metformin HCl (Metformin Hcl 500 Mg Tablet) 500 mg PO BID [facility] Last Admin: 08/18/23 08:43 Dose: Not Given Metronidazole (Metronidazole 0.75 % Gel 45 Gm Tube) 1 appl TOPICAL DAILY [facility] Last Admin: 08/18/23 08:43 Dose: Not Given Multivitamins/Vitamin C (Multivitamin Tablet) 1 tab PO DAILY [facility] Last Admin: 08/18/23 08:43 Dose: Not Given Nicotine Polacrilex (Nicotine Polacrilex Lozenge 2 Mg Lozenge) 2 mg BUCCAL Q2H PRN PRN Reason: Nicotine Cravings Olanzapine (Olanzapine Odt 10 Mg Tab.Rapdis) 10 mg TRANSLINGU DAILY PRN PRN Reason: Psychosis Last Admin: 08/04/23 17:34 Dose: 10 mg Olanzapine (Olanzapine Odt 10 Mg Tab.Rapdis) 10 mg TRANSLINGU BID [facility] Last Admin: 08/18/23 08:30 Dose: 10 mg Olanzapine (Olanzapine 10 Mg Vial) 10 mg IM BID PRN PRN Reason: if refuses PO Zydis Last Admin: 08/13/23 09:17 Dose: 10 mg Paliperidone Palmitate (Paliperidone Palmitate 234 Mg/1.5 Ml Syringe) 234 mg IM Q30D [facility] Trazodone HCl (Trazodone Hcl 50 Mg Tablet) 50 mg PO BEDTIME MRX1 PRN PRN Reason: Insomnia Vitamin D (Cholecalciferol (Vitamin D3) 10 Mcg Tablet) 10 mcg PO DAILY [facility] Last Admin: 08/18/23 08:43 Dose: Not Given Allergies Allergies Allergy/AdvReac Type Severity Reaction Status Date / Time acetaminophen [From TYLENOL] Allergy Intermediate HIVES Verified 08/28/22 09:48 meperidine [From Demerol] Allergy Unknown Verified 08/28/22 09:48 Assessment & Plan Assessment & Plan (1) Schizoaffective disorder: Status: Acute Code(s): F25.9 - Schizoaffective disorder, unspecified Assessment and Plan: Presents with decompensation of schizoaffective disorder, while in group living environment. Not adherence appears to be a factor. Patient not engaging with interview, evaluation or adherent with medications ie declining same. Unable to care for self. Being held on a Section 12 that will on 07/02/23. In the meantime will try and establish report and encourage medication adherence. Plan 06/29: encourage med adherence. 07/01/23: Ensure tid Will file Section VII on 07/02/23. 07/02/23: HCP activated today. Martine Elder is willing to serve in this role. [phone]. 07/03/23: Encourage treatment compliance 07/04/23 Encourage treatment compliance, begin process of validating HCP with the courts in order to provide pt with psychopharmacology options. 07/05/23 Encourage treatment. 07/07 remains disorganized in speech and behavior; refusing meds, paranoid -continue process of affirming HCP 07/08- Continue current plan. 07/09 continue current treatment plan 07/11/23 continue current treatment plan 07/12: Continue current regimen and plans 07/13: Continue current regimen and plans 07/14: Continue current plans and regimen 07/15/23: Continue current tx. Initiate regime 07/16. 07/17/23: Continue to encourage treatment. 07/18/23: Add prn Zyprexa IM if she refuses HS dosing 07/19: Continue current management and treatment plan. 07/20: Continue current management and treatment plan. 07/22: Continue tx. 07/23: Continue tx 07/24: Encourage milieu participation 07/26/23 continues too labile to interact with others- 07/27/23 - CTP encourage treatment 07/27/22 Continue tx plan; encourge meds as approved by HCP and court 07/29/23 schedule olanzepine discontinued after on hold for several days; awaiting invega sustenna to alleviate some of the psychosis in hopes patient more engageable and able to participate in her treatment; PO meds still ordered and should be offered with statement that they are court ordered and approved by HCP. 07/30/23 pt showing slight improvement- continue treatment plan 07/31/23 continue tx plan 08/01/23 continue tx plan 08/01 -Intermittently angry and irritable. Said hello to editorial writer but then when editorial writer asked how she was doing said none of your business. -Made swiping motion as if to scratch towards several staff, saying it was a curse -Yelled at peer today due to disorganized thought that person should not be in group room; yell that another peer who was going into the community refrigerator since patient thinks that the refrigerator is her property; able to be redirected 08/02 screamed at editorial writer and refused to enage. 08/03 staff agree Patient seems to be increasingly disorganized, walking briskly down the calle and yelling at peers, staff, making angry accusatory remarks and frightening and provoking some patients, causing some patients to become angry response. Will not engage with editorial writer. -patient on Invega Sustenna however behaviors are problematic, upsetting and sometimes scary to both peers and staff. Patient psychotic illness has gone untreated for quite some time and it seems likely she will need p.o. to overlap long-acting medication. Jail Guard reached out to patient's healthcare proxy Brit Elder and left message to discuss treatment 08/06/23- Continue tx. Pt today able to reach out and initiate discussion. Benztropine 1 mg tid prn EPS 08/07/23- Continue tx. 08/08/23- Continue tx. 08/09/2023: Continue current regimen and plans. 08/10/2023: Continue current regimen and plans 08/12/23: Diagnostics 08/13/23. 08/13/23: Continue tx. 08/14/23: Continue tx. 08/15/23: Continue tx. 08/15: continue current management and treatment plan. 08/16: continue current management and treatment plan. 08/17: Continue tx. Informed Consent: does not understand Reason for continued inpatient stay Substantial Risk for: rapid decompensation Time Spent With Patient Time: Total time managing care of this patient today ____ minutes.
[2023-08-19 06:00] VITALS: RESP 18
[2023-08-19] MEDS: OLANZapine ODT 10 MG TAB.RAPDIS TRANSLINGU ×2 (08:22→21:29)
[2023-08-19] MEDS: Ibuprofen 600 MG TABLET PO ×3 (08:22→21:33)
--- NOTE | 2023-08-19 12:28 | HO.PSYCHPN ---
Subjective Subjective Date of Service: 08/19/23 Reason For Visit: Schizoaffective disorder Subjective Notes: Conditional Voluntary Healthcare Proxy: Yes Guardianship: No Medical Problems Affecting Mental Status: No Interim History: Sivan is confrontive to tw today. When can I leave? The Invega shot is pure Fentanyl. I know as I own the drug company and all pharmacies. Poor spatial boundaries when talking-needing to be in ones personal space to clearly make her point known-responds very well to supportive limits, no aggression, no violence, able to accept verbal re-direction. Walking in the milieu, not engaging too often, however, is attentive to peers, staff dialogue and making appropriate comments in response to what she is hearing. She appears more attentive to her environment. Medication Compliance: Yes Side effects from medications: No Attending Groups: No Review of Systems Acute medical concerns: No Medical Review of Systems: unchanged Review of Systems Review of Systems Reports chronic pain daily, however, today, reports she believes medication is helpful in managing the pain and it is decreasing. Mental Status Exam Mental Status Exam Patient Appearance: Disheveled Patient Orientation: Person and Place Level of Consciousness: Alert Patient Behavior: Guarded, Talkative and Good Eye Contact Mood Description: Constricted and Labile Affect Description: Constricted and Labile Patient Cognition Impaired: Yes Ability to Follow Directions: Fair Speech Pattern: Spontaneous Speech Memory Description: Remote Impaired Hallucinations: Auditory Delusions: Paranoid Ideation Perceptual Disturbances: Derealization Thought Process: Distracted Thought Content: positive for [place] and positive for Circumstantial Depressive Symptoms: Increased Irritability Judgement: Poor Diagnostics Vital Signs (24Hr): Vital Signs - 24 hr 08/19/23 06:00 Respiratory Rate 18 BMI result Body Mass Index 34.1 Labs 06/25/23 17:59 06/25/23 17:59 Medications Medications Current Medications Al Hydroxide/Mg Hydroxide (Magnesium Hydrox/Alum Hydrox 30 Ml Oral.Susp) 30 ml PO Q6H PRN PRN Reason: Heartburn/Nausea Albuterol Sulfate (Albuterol Sulfate 90 Mcg 8 Gm Inhaler) 2 puff INHALE Q4H PRN PRN Reason: Wheezing Benztropine Mesylate (Benztropine Mesylate 1 Mg Tablet) 1 mg PO TID PRN PRN Reason: Extrapyramidal Effects Duloxetine HCl (Duloxetine Hcl 20 Mg Capsule.) 40 mg PO DAILY [facility] Last Admin: 08/19/23 08:53 Dose: Not Given Hydroxyzine HCl (Hydroxyzine Hcl 25 Mg Tablet) 25 mg PO Q6H PRN PRN Reason: Anxiety Ibuprofen (Ibuprofen 600 Mg Tablet) 600 mg PO Q6H PRN PRN Reason: moderate to severe pain Last Admin: 08/19/23 08:22 Dose: 600 mg Lorazepam (Lorazepam 0.5 Mg Tablet) 0.5 mg PO BID [facility] Last Admin: 08/19/23 08:53 Dose: Not Given Magnesium Hydroxide (Milk Of Magnesia 30 Ml Oral.Susp) 30 ml PO DAILY PRN PRN Reason: Constipation Metformin HCl (Metformin Hcl 500 Mg Tablet) 500 mg PO BID [facility] Last Admin: 08/19/23 08:54 Dose: Not Given Metronidazole (Metronidazole 0.75 % Gel 45 Gm Tube) 1 appl TOPICAL DAILY [facility] Last Admin: 08/19/23 08:54 Dose: Not Given Multivitamins/Vitamin C (Multivitamin Tablet) 1 tab PO DAILY [facility] Last Admin: 08/19/23 08:54 Dose: Not Given Nicotine Polacrilex (Nicotine Polacrilex Lozenge 2 Mg Lozenge) 2 mg BUCCAL Q2H PRN PRN Reason: Nicotine Cravings Olanzapine (Olanzapine Odt 10 Mg Tab.Rapdis) 10 mg TRANSLINGU DAILY PRN PRN Reason: Psychosis Last Admin: 08/04/23 17:34 Dose: 10 mg Olanzapine (Olanzapine Odt 10 Mg Tab.Rapdis) 10 mg TRANSLINGU BID [facility] Last Admin: 08/19/23 08:22 Dose: 10 mg Olanzapine (Olanzapine 10 Mg Vial) 10 mg IM BID PRN PRN Reason: if refuses PO Zydis Last Admin: 08/13/23 09:17 Dose: 10 mg Paliperidone Palmitate (Paliperidone Palmitate 234 Mg/1.5 Ml Syringe) 234 mg IM Q30D [facility] Trazodone HCl (Trazodone Hcl 50 Mg Tablet) 50 mg PO BEDTIME MRX1 PRN PRN Reason: Insomnia Vitamin D (Cholecalciferol (Vitamin D3) 10 Mcg Tablet) 10 mcg PO DAILY [facility] Last Admin: 08/19/23 08:53 Dose: Not Given Allergies Allergies Allergy/AdvReac Type Severity Reaction Status Date / Time acetaminophen [From TYLENOL] Allergy Intermediate HIVES Verified 08/28/22 09:48 meperidine [From Demerol] Allergy Unknown Verified 08/28/22 09:48 Assessment & Plan Assessment & Plan (1) Schizoaffective disorder: Status: Acute Code(s): F25.9 - Schizoaffective disorder, unspecified Assessment and Plan: Presents with decompensation of schizoaffective disorder, while in group living environment. Not adherence appears to be a factor. Patient not engaging with interview, evaluation or adherent with medications ie declining same. Unable to care for self. Being held on a Section 12 that will on 07/02/23. In the meantime will try and establish report and encourage medication adherence. Plan 06/29: encourage med adherence. 07/01/23: Ensure tid Will file Section VII on 07/02/23. 07/02/23: HCP activated today. Martine Mckeonon is willing to serve in this role. [phone]. 07/03/23: Encourage treatment compliance 07/04/23 Encourage treatment compliance, begin process of validating HCP with the courts in order to provide pt with psychopharmacology options. 07/05/23 Encourage treatment. 07/07 remains disorganized in speech and behavior; refusing meds, paranoid -continue process of affirming HCP 07/08- Continue current plan. 07/09 continue current treatment plan 07/11/23 continue current treatment plan 07/12: Continue current regimen and plans 07/13: Continue current regimen and plans 07/14: Continue current plans and regimen 07/15/23: Continue current tx. Initiate regime 07/16. 07/17/23: Continue to encourage treatment. 07/18/23: Add prn Zyprexa IM if she refuses HS dosing 07/19: Continue current management and treatment plan. 07/20: Continue current management and treatment plan. 07/22: Continue tx. 07/23: Continue tx 07/24: Encourage milieu participation 07/26/23 continues too labile to interact with others- 07/27/23 - CTP encourage treatment 07/27/22 Continue tx plan; encourge meds as approved by HCP and court 07/29/23 schedule olanzepine discontinued after on hold for several days; awaiting invega sustenna to alleviate some of the psychosis in hopes patient more engageable and able to participate in her treatment; PO meds still ordered and should be offered with statement that they are court ordered and approved by HCP. 3/6/24 pt showing slight improvement- continue treatment plan 07/31/23 continue tx plan 08/01/23 continue tx plan 08/01 -Intermittently angry and irritable. Said hello to keno writer / runner but then when keno writer / runner asked how she was doing said none of your business. -Made swiping motion as if to scratch towards several staff, saying it was a curse -Yelled at peer today due to disorganized thought that person should not be in group room; yell that another peer who was going into the community refrigerator since patient thinks that the refrigerator is her property; able to be redirected 08/02 screamed at keno writer / runner and refused to enage. 08/03 staff agree Patient seems to be increasingly disorganized, walking briskly down the calle and yelling at peers, staff, making angry accusatory remarks and frightening and provoking some patients, causing some patients to become angry response. Will not engage with keno writer / runner. -patient on Invega Sustenna however behaviors are problematic, upsetting and sometimes scary to both peers and staff. Patient psychotic illness has gone untreated for quite some time and it seems likely she will need p.o. to overlap long-acting medication. Certified Shorthand Reporter reached out to patient's healthcare proxy Brit Elder and left message to discuss treatment 08/06/23- Continue tx. Pt today able to reach out and initiate discussion. Benztropine 1 mg tid prn EPS 08/07/23- Continue tx. 08/08/23- Continue tx. 08/09/2023: Continue current regimen and plans. 08/10/2023: Continue current regimen and plans 08/12/23: Diagnostics 08/13/23. 08/13/23: Continue tx. 08/14/23: Continue tx. 08/15/23: Continue tx. 08/15: continue current management and treatment plan. 08/16: continue current management and treatment plan. 08/17: Continue tx. 08/18: Continue tx. Informed Consent: does not understand and further education needed Reason for continued inpatient stay Substantial Risk for: rapid decompensation Time Spent With Patient Time: Total time managing care of this patient today ____ minutes.
[2023-08-19 19:40] VITALS: BP 136/82; PULSE 90; RESP 16; TEMP 36.6; O2SAT 97
[2023-08-20] MEDS: OLANZapine ODT 10 MG TAB.RAPDIS TRANSLINGU ×2 (08:15→20:18)
[2023-08-20] MEDS: Ibuprofen 600 MG TABLET PO (08:17)
[2023-08-20 08:21] VITALS: BP 127/60; PULSE 91; RESP 18; TEMP 36.4; O2SAT 96
--- NOTE | 2023-08-20 14:36 | HO.PSYCHPN ---
Subjective Subjective Date of Service: 08/20/23 Reason For Visit: Schizoaffective disorder Subjective Notes: Conditional Voluntary Healthcare Proxy: Yes Guardianship: No Medical Problems Affecting Mental Status: No Interim History: Visable in milieu. Did not approach tw today. When approached, I am OK . No questions or concerns raised, no confrontations about discharge or paranoid thought process or grandiosity regarding her medications or their origin. Medication Compliance: Yes Side effects from medications: No Attending Groups: No Review of Systems Acute medical concerns: No Medical Review of Systems: unchanged Review of Systems Review of Systems Yes Unobtainable due to mental status Mental Status Exam Mental Status Exam Patient Appearance: Disheveled Patient Orientation: Person and Place Level of Consciousness: Alert Patient Behavior: Guarded, Talkative and Good Eye Contact Mood Description: Constricted and Labile Affect Description: Constricted and Labile Patient Cognition Impaired: Yes Ability to Follow Directions: Fair Speech Pattern: Spontaneous Speech Memory Description: Remote Impaired Hallucinations: Auditory Delusions: Paranoid Ideation Perceptual Disturbances: Derealization Thought Process: Distracted Thought Content: positive for [place] and positive for Circumstantial Depressive Symptoms: Increased Irritability Judgement: Poor Diagnostics Vital Signs (24Hr): Vital Signs - 24 hr 08/19/23 19:40 08/20/23 08:21 Temperature 97.9 F 97.6 F Pulse Rate 90 91 Respiratory Rate 16 18 Blood Pressure 136/82 127/60 Pulse Oximetry 97 96 Oxygen Delivery Method Room Air Room Air BMI result Body Mass Index 34.1 Labs 06/25/23 17:59 06/25/23 17:59 Medications Medications Current Medications Al Hydroxide/Mg Hydroxide (Magnesium Hydrox/Alum Hydrox 30 Ml Oral.Susp) 30 ml PO Q6H PRN PRN Reason: Heartburn/Nausea Albuterol Sulfate (Albuterol Sulfate 90 Mcg 8 Gm Inhaler) 2 puff INHALE Q4H PRN PRN Reason: Wheezing Benztropine Mesylate (Benztropine Mesylate 1 Mg Tablet) 1 mg PO TID PRN PRN Reason: Extrapyramidal Effects Duloxetine HCl (Duloxetine Hcl 20 Mg Capsule.Dr) 40 mg PO DAILY [facility] Last Admin: 08/20/23 08:19 Dose: Not Given Hydroxyzine HCl (Hydroxyzine Hcl 25 Mg Tablet) 25 mg PO Q6H PRN PRN Reason: Anxiety Ibuprofen (Ibuprofen 600 Mg Tablet) 600 mg PO Q6H PRN PRN Reason: moderate to severe pain Last Admin: 08/20/23 08:17 Dose: 600 mg Lorazepam (Lorazepam 0.5 Mg Tablet) 0.5 mg PO BID [facility] Last Admin: 08/20/23 08:19 Dose: Not Given Magnesium Hydroxide (Milk Of Magnesia 30 Ml Oral.Susp) 30 ml PO DAILY PRN PRN Reason: Constipation Metformin HCl (Metformin Hcl 500 Mg Tablet) 500 mg PO BID [facility] Last Admin: 08/20/23 08:19 Dose: Not Given Metronidazole (Metronidazole 0.75 % Gel 45 Gm Tube) 1 appl TOPICAL DAILY [facility] Last Admin: 08/20/23 08:19 Dose: Not Given Multivitamins/Vitamin C (Multivitamin Tablet) 1 tab PO DAILY [facility] Last Admin: 08/20/23 08:19 Dose: Not Given Nicotine Polacrilex (Nicotine Polacrilex Lozenge 2 Mg Lozenge) 2 mg BUCCAL Q2H PRN PRN Reason: Nicotine Cravings Olanzapine (Olanzapine Odt 10 Mg Tab.Rapdis) 10 mg TRANSLINGU DAILY PRN PRN Reason: Psychosis Last Admin: 08/04/23 17:34 Dose: 10 mg Olanzapine (Olanzapine Odt 10 Mg Tab.Rapdis) 10 mg TRANSLINGU BID [facility] Last Admin: 08/20/23 08:15 Dose: 10 mg Olanzapine (Olanzapine 10 Mg Vial) 10 mg IM BID PRN PRN Reason: if refuses PO Zydis Last Admin: 08/13/23 09:17 Dose: 10 mg Paliperidone Palmitate (Paliperidone Palmitate 234 Mg/1.5 Ml Syringe) 234 mg IM Q30D [facility] Trazodone HCl (Trazodone Hcl 50 Mg Tablet) 50 mg PO BEDTIME MRX1 PRN PRN Reason: Insomnia Vitamin D (Cholecalciferol (Vitamin D3) 10 Mcg Tablet) 10 mcg PO DAILY [facility] Last Admin: 08/20/23 08:19 Dose: Not Given Allergies Allergies Allergy/AdvReac Type Severity Reaction Status Date / Time acetaminophen [From TYLENOL] Allergy Intermediate HIVES Verified 08/28/22 09:48 meperidine [From Demerol] Allergy Unknown Verified 08/28/22 09:48 Assessment & Plan Assessment & Plan (1) Schizoaffective disorder: Status: Acute Code(s): F25.9 - Schizoaffective disorder, unspecified Assessment and Plan: Presents with decompensation of schizoaffective disorder, while in group living environment. Not adherence appears to be a factor. Patient not engaging with interview, evaluation or adherent with medications ie declining same. Unable to care for self. Being held on a Section 12 that will on 07/02/23. In the meantime will try and establish report and encourage medication adherence. Plan 06/29: encourage med adherence. 07/01/23: Ensure tid Will file Section VII on 07/02/23. 07/02/23: HCP activated today. Martine Elder is willing to serve in this role. [phone]. 07/03/23: Encourage treatment compliance 07/04/23 Encourage treatment compliance, begin process of validating HCP with the courts in order to provide pt with psychopharmacology options. 07/05/23 Encourage treatment. 07/07 remains disorganized in speech and behavior; refusing meds, paranoid -continue process of affirming HCP 07/08- Continue current plan. 07/09 continue current treatment plan 07/11/23 continue current treatment plan 07/12: Continue current regimen and plans 07/13: Continue current regimen and plans 07/14: Continue current plans and regimen 07/15/23: Continue current tx. Initiate regime 07/16. 07/17/23: Continue to encourage treatment. 07/18/23: Add prn Zyprexa IM if she refuses HS dosing 07/19: Continue current management and treatment plan. 07/20: Continue current management and treatment plan. 07/22: Continue tx. 07/23: Continue tx 07/24: Encourage milieu participation 07/26/23 continues too labile to interact with others- 07/27/23 - CTP encourage treatment 07/27/22 Continue tx plan; encourge meds as approved by HCP and court 07/29/23 schedule olanzepine discontinued after on hold for several days; awaiting invega sustenna to alleviate some of the psychosis in hopes patient more engageable and able to participate in her treatment; PO meds still ordered and should be offered with statement that they are court ordered and approved by HCP. 07/30/23 pt showing slight improvement- continue treatment plan 07/31/23 continue tx plan 08/01/23 continue tx plan 08/01 -Intermittently angry and irritable. Said hello to service writer but then when service writer asked how she was doing said none of your business. -Made swiping motion as if to scratch towards several staff, saying it was a curse -Yelled at peer today due to disorganized thought that person should not be in group room; yell that another peer who was going into the community refrigerator since patient thinks that the refrigerator is her property; able to be redirected 08/02 screamed at service writer and refused to enage. 08/03 staff agree Patient seems to be increasingly disorganized, walking briskly down the calle and yelling at peers, staff, making angry accusatory remarks and frightening and provoking some patients, causing some patients to become angry response. Will not engage with service writer. -patient on Invega Sustenna however behaviors are problematic, upsetting and sometimes scary to both peers and staff. Patient psychotic illness has gone untreated for quite some time and it seems likely she will need p.o. to overlap long-acting medication. Heating Operators Engineer reached out to patient's healthcare proxy Brit Elder and left message to discuss treatment 08/06/23- Continue tx. Pt today able to reach out and initiate discussion. Benztropine 1 mg tid prn EPS 08/07/23- Continue tx. 08/08/23- Continue tx. 08/09/2023: Continue current regimen and plans. 08/10/2023: Continue current regimen and plans 08/12/23: Diagnostics 08/13/23. 08/13/23: Continue tx. 08/14/23: Continue tx. 08/15/23: Continue tx. 08/15: continue current management and treatment plan. 08/16: continue current management and treatment plan. 08/17: Continue tx. 08/19: Sustenna injection due 08/20. Continue current plan. By history, it has taken three cycles of injections for pt to achieve symptom relief and benefit. Informed Consent: does not understand Reason for continued inpatient stay Substantial Risk for: rapid decompensation Time Spent With Patient Time: Total time managing care of this patient today ____ minutes.
[2023-08-20 18:00] VITALS: BP 138/70; PULSE 114; RESP 16; TEMP 36.4; O2SAT 94
[2023-08-21] MEDS: Ibuprofen 600 MG TABLET PO ×3 (05:46→19:50)
[2023-08-21 06:00] VITALS: BP 154/83; PULSE 94; RESP 16; TEMP 36.5; O2SAT 96
[2023-08-21] MEDS: OLANZapine ODT 10 MG TAB.RAPDIS TRANSLINGU ×2 (08:57→19:50)
[2023-08-21] MEDS: Paliperidone Palmitate 234 MG/1.5 ML SYRINGE IM (12:39)
--- NOTE | 2023-08-21 14:07 | P.PNPSI_ITS ---
Subjective Subjective Date of Service: 08/21/23 Reason For Visit: Schizoaffective disorder Subjective Notes: Conditional Voluntary Healthcare Proxy: Yes Guardianship: No Medical Problems Affecting Mental Status: No Interim History: Invega Sustenna injection was given today. Pt angry with tw with appropriate expression as she believes Sustenna to be Fentanyl. Later in the day, she is in the milieu, helping to organize the kitchen, putting supplies and foods away and interacting with some of her peers, offering support to peers and approaching team with her questions. Medication Compliance: Yes Side effects from medications: No Attending Groups: No Review of Systems Acute medical concerns: No Medical Review of Systems: unchanged Review of Systems Review of Systems Yes Unobtainable due to mental status Mental Status Exam Mental Status Exam Patient Appearance: Disheveled Patient Orientation: Person and Place Level of Consciousness: Alert Patient Behavior: Guarded, Talkative and Good Eye Contact Mood Description: Constricted and Labile Affect Description: Constricted and Labile Patient Cognition Impaired: Yes Ability to Follow Directions: Fair Speech Pattern: Spontaneous Speech Memory Description: Remote Impaired Hallucinations: Auditory Delusions: Paranoid Ideation Perceptual Disturbances: Derealization Thought Process: Distracted Thought Content: positive for [place] and positive for Circumstantial Depressive Symptoms: Increased Irritability Judgement: Poor Diagnostics Vital Signs (24Hr): Vital Signs - 24 hr 08/20/23 18:00 08/21/23 06:00 Temperature 97.6 F 97.7 F Pulse Rate 114 H 94 Respiratory Rate 16 16 Blood Pressure 138/70 154/83 H Pulse Oximetry 94 96 Oxygen Delivery Method Room Air Room Air BMI result Body Mass Index 34.1 Labs 06/25/23 17:59 06/25/23 17:59 Medications Medications Current Medications Al Hydroxide/Mg Hydroxide (Magnesium Hydrox/Alum Hydrox 30 Ml Oral.Susp) 30 ml PO Q6H PRN PRN Reason: Heartburn/Nausea Albuterol Sulfate (Albuterol Sulfate 90 Mcg 8 Gm Inhaler) 2 puff INHALE Q4H PRN PRN Reason: Wheezing Benztropine Mesylate (Benztropine Mesylate 1 Mg Tablet) 1 mg PO TID PRN PRN Reason: Extrapyramidal Effects Duloxetine HCl (Duloxetine Hcl 20 Mg Capsule.Dr) 40 mg PO DAILY [facility] Last Admin: 08/21/23 09:31 Dose: Not Given Hydroxyzine HCl (Hydroxyzine Hcl 25 Mg Tablet) 25 mg PO Q6H PRN PRN Reason: Anxiety Ibuprofen (Ibuprofen 600 Mg Tablet) 600 mg PO Q6H PRN PRN Reason: moderate to severe pain Last Admin: 08/21/23 11:22 Dose: 600 mg Lorazepam (Lorazepam 0.5 Mg Tablet) 0.5 mg PO BID [facility] Last Admin: 08/21/23 09:31 Dose: Not Given Magnesium Hydroxide (Milk Of Magnesia 30 Ml Oral.Susp) 30 ml PO DAILY PRN PRN Reason: Constipation Metformin HCl (Metformin Hcl 500 Mg Tablet) 500 mg PO BID [facility] Last Admin: 08/21/23 09:31 Dose: Not Given Metronidazole (Metronidazole 0.75 % Gel 45 Gm Tube) 1 appl TOPICAL DAILY [facility] Last Admin: 08/21/23 09:31 Dose: Not Given Multivitamins/Vitamin C (Multivitamin Tablet) 1 tab PO DAILY [facility] Last Admin: 08/21/23 09:31 Dose: Not Given Nicotine Polacrilex (Nicotine Polacrilex Lozenge 2 Mg Lozenge) 2 mg BUCCAL Q2H PRN PRN Reason: Nicotine Cravings Olanzapine (Olanzapine Odt 10 Mg Tab.Rapdis) 10 mg TRANSLINGU DAILY PRN PRN Reason: Psychosis Last Admin: 08/04/23 17:34 Dose: 10 mg Olanzapine (Olanzapine Odt 10 Mg Tab.Rapdis) 10 mg TRANSLINGU BID [facility] Last Admin: 08/21/23 08:57 Dose: 10 mg Olanzapine (Olanzapine 10 Mg Vial) 10 mg IM BID PRN PRN Reason: if refuses PO Zydis Last Admin: 08/13/23 09:17 Dose: 10 mg Paliperidone Palmitate (Paliperidone Palmitate 234 Mg/1.5 Ml Syringe) 234 mg IM Q30D [facility] Last Admin: 08/21/23 12:39 Dose: 234 mg Trazodone HCl (Trazodone Hcl 50 Mg Tablet) 50 mg PO BEDTIME MRX1 PRN PRN Reason: Insomnia Vitamin D (Cholecalciferol (Vitamin D3) 10 Mcg Tablet) 10 mcg PO DAILY [facility] Last Admin: 08/21/23 09:31 Dose: Not Given Allergies Allergies Allergy/AdvReac Type Severity Reaction Status Date / Time acetaminophen [From TYLENOL] Allergy Intermediate HIVES Verified 08/28/22 09:48 meperidine [From Demerol] Allergy Unknown Verified 08/28/22 09:48 Assessment & Plan Assessment & Plan (1) Schizoaffective disorder: Status: Acute Code(s): F25.9 - Schizoaffective disorder, unspecified Assessment and Plan: Presents with decompensation of schizoaffective disorder, while in group living environment. Not adherence appears to be a factor. Patient not engaging with interview, evaluation or adherent with medications ie declining same. Unable to care for self. Being held on a Section 12 that will on 07/02/23. In the meantime will try and establish report and encourage medication adherence. Plan 06/29: encourage med adherence. 07/01/23: Ensure tid Will file Section VII on 07/02/23. 07/02/23: HCP activated today. Martine Elder is willing to serve in this role. [phone]. 07/03/23: Encourage treatment compliance 07/04/23 Encourage treatment compliance, begin process of validating HCP with the courts in order to provide pt with psychopharmacology options. 07/05/23 Encourage treatment. 07/07 remains disorganized in speech and behavior; refusing meds, paranoid -continue process of affirming HCP 07/08- Continue current plan. 07/09 continue current treatment plan 07/11/23 continue current treatment plan 07/12: Continue current regimen and plans 07/13: Continue current regimen and plans 07/14: Continue current plans and regimen 07/15/23: Continue current tx. Initiate regime 07/16. 07/17/23: Continue to encourage treatment. 07/18/23: Add prn Zyprexa IM if she refuses HS dosing 07/19: Continue current management and treatment plan. 07/20: Continue current management and treatment plan. 07/22: Continue tx. 07/23: Continue tx 07/24: Encourage milieu participation 07/26/23 continues too labile to interact with others- 07/27/23 - CTP encourage treatment 07/27/22 Continue tx plan; encourge meds as approved by HCP and court 07/29/23 schedule olanzepine discontinued after on hold for several days; awaiting invega sustenna to alleviate some of the psychosis in hopes patient more engageable and able to participate in her treatment; PO meds still ordered and should be offered with statement that they are court ordered and approved by HCP. 07/30/23 pt showing slight improvement- continue treatment plan 07/31/23 continue tx plan 08/01/23 continue tx plan 08/01 -Intermittently angry and irritable. Said hello to process description writer but then when process description writer asked how she was doing said none of your business. -Made swiping motion as if to scratch towards several staff, saying it was a curse -Yelled at peer today due to disorganized thought that person should not be in group room; yell that another peer who was going into the community refrigerator since patient thinks that the refrigerator is her property; able to be redirected 08/02 screamed at process description writer and refused to enage. 08/03 staff agree Patient seems to be increasingly disorganized, walking briskly down the calle and yelling at peers, staff, making angry accusatory remarks and frightening and provoking some patients, causing some patients to become angry response. Will not engage with process description writer. -patient on Invega Sustenna however behaviors are problematic, upsetting and sometimes scary to both peers and staff. Patient psychotic illness has gone untreated for quite some time and it seems likely she will need p.o. to overlap long-acting medication. Heating Repair Technician reached out to patient's healthcare proxy Brit Elder and left message to discuss treatment 08/06/23- Continue tx. Pt today able to reach out and initiate discussion. Benztropine 1 mg tid prn EPS 08/07/23- Continue tx. 08/08/23- Continue tx. 08/09/2023: Continue current regimen and plans. 08/10/2023: Continue current regimen and plans 08/12/23: Diagnostics 08/13/23. 08/13/23: Continue tx. 08/14/23: Continue tx. 08/15/23: Continue tx. 08/15: continue current management and treatment plan. 08/16: continue current management and treatment plan. 08/17: Continue tx. 08/18: Continue tx. 08/21/23: Continue tx. Informed Consent: does not understand Reason for continued inpatient stay Substantial Risk for: rapid decompensation Time Spent With Patient Time: Total time managing care of this patient today ____ minutes.
[2023-08-21 18:00] VITALS: RESP 18
[2023-08-22] MEDS: OLANZapine ODT 10 MG TAB.RAPDIS TRANSLINGU ×2 (08:36→21:27)
[2023-08-22] MEDS: Ibuprofen 600 MG TABLET PO ×3 (08:39→21:27)
--- NOTE | 2023-08-22 16:19 | HO.PSYCHPN ---
Subjective Subjective Date of Service: 08/22/23 Reason For Visit: Schizoaffective disorder Subjective Notes: Conditional Voluntary Healthcare Proxy: Yes Guardianship: No Medical Problems Affecting Mental Status: No Interim History: Visable in milieu. Positive, cheerful with very brief interactions. Easily agitates when one attempts to have a discussion with her with increase in paranoia, accusatory statements. Today, walking in the halls, giving direction- No, only say hi to me, no conversation. Smiles and walks by. Medication Compliance: Yes Side effects from medications: No Attending Groups: No Review of Systems Acute medical concerns: No Medical Review of Systems: unchanged Review of Systems Review of Systems Yes Unobtainable due to mental status Mental Status Exam Mental Status Exam Patient Appearance: Disheveled Patient Orientation: Person and Place Level of Consciousness: Alert Patient Behavior: Guarded, Talkative and Good Eye Contact Mood Description: Constricted and Labile Affect Description: Constricted and Labile Patient Cognition Impaired: Yes Ability to Follow Directions: Fair Speech Pattern: Spontaneous Speech Memory Description: Remote Impaired Hallucinations: Auditory Delusions: Paranoid Ideation Perceptual Disturbances: Derealization Thought Process: Distracted Thought Content: positive for [place] and positive for Circumstantial Depressive Symptoms: Increased Irritability Judgement: Poor Diagnostics Vital Signs (24Hr): Vital Signs - 24 hr 08/21/23 18:00 Respiratory Rate 18 BMI result Body Mass Index 34.1 Labs 06/25/23 17:59 06/25/23 17:59 Medications Medications Current Medications Al Hydroxide/Mg Hydroxide (Magnesium Hydrox/Alum Hydrox 30 Ml Oral.Susp) 30 ml PO Q6H PRN PRN Reason: Heartburn/Nausea Albuterol Sulfate (Albuterol Sulfate 90 Mcg 8 Gm Inhaler) 2 puff INHALE Q4H PRN PRN Reason: Wheezing Benztropine Mesylate (Benztropine Mesylate 1 Mg Tablet) 1 mg PO TID PRN PRN Reason: Extrapyramidal Effects Duloxetine HCl (Duloxetine Hcl 20 Mg Capsule.Dr) 40 mg PO DAILY [facility] Last Admin: 08/22/23 08:36 Dose: Not Given Hydroxyzine HCl (Hydroxyzine Hcl 25 Mg Tablet) 25 mg PO Q6H PRN PRN Reason: Anxiety Ibuprofen (Ibuprofen 600 Mg Tablet) 600 mg PO Q6H PRN PRN Reason: moderate to severe pain Last Admin: 08/22/23 15:20 Dose: 600 mg Lorazepam (Lorazepam 0.5 Mg Tablet) 0.5 mg PO BID [facility] Last Admin: 08/22/23 08:37 Dose: Not Given Magnesium Hydroxide (Milk Of Magnesia 30 Ml Oral.Susp) 30 ml PO DAILY PRN PRN Reason: Constipation Metformin HCl (Metformin Hcl 500 Mg Tablet) 500 mg PO BID [facility] Last Admin: 08/22/23 08:37 Dose: Not Given Metronidazole (Metronidazole 0.75 % Gel 45 Gm Tube) 1 appl TOPICAL DAILY [facility] Last Admin: 08/22/23 08:35 Dose: Not Given Multivitamins/Vitamin C (Multivitamin Tablet) 1 tab PO DAILY [facility] Last Admin: 08/22/23 08:35 Dose: Not Given Nicotine Polacrilex (Nicotine Polacrilex Lozenge 2 Mg Lozenge) 2 mg BUCCAL Q2H PRN PRN Reason: Nicotine Cravings Olanzapine (Olanzapine Odt 10 Mg Tab.Rapdis) 10 mg TRANSLINGU DAILY PRN PRN Reason: Psychosis Last Admin: 08/04/23 17:34 Dose: 10 mg Olanzapine (Olanzapine Odt 10 Mg Tab.Rapdis) 10 mg TRANSLINGU BID [facility] Last Admin: 08/22/23 08:36 Dose: 10 mg Olanzapine (Olanzapine 10 Mg Vial) 10 mg IM BID PRN PRN Reason: if refuses PO Zydis Last Admin: 08/13/23 09:17 Dose: 10 mg Paliperidone Palmitate (Paliperidone Palmitate 234 Mg/1.5 Ml Syringe) 234 mg IM Q30D [facility] Last Admin: 08/21/23 12:39 Dose: 234 mg Trazodone HCl (Trazodone Hcl 50 Mg Tablet) 50 mg PO BEDTIME MRX1 PRN PRN Reason: Insomnia Vitamin D (Cholecalciferol (Vitamin D3) 10 Mcg Tablet) 10 mcg PO DAILY [facility] Last Admin: 08/22/23 08:35 Dose: Not Given Allergies Allergies Allergy/AdvReac Type Severity Reaction Status Date / Time acetaminophen [From TYLENOL] Allergy Intermediate HIVES Verified 08/28/22 09:48 meperidine [From Demerol] Allergy Unknown Verified 08/28/22 09:48 Assessment & Plan Assessment & Plan (1) Schizoaffective disorder: Status: Acute Code(s): F25.9 - Schizoaffective disorder, unspecified Assessment and Plan: Presents with decompensation of schizoaffective disorder, while in group living environment. Not adherence appears to be a factor. Patient not engaging with interview, evaluation or adherent with medications ie declining same. Unable to care for self. Being held on a Section 12 that will on 07/02/23. In the meantime will try and establish report and encourage medication adherence. Plan 06/29: encourage med adherence. 07/01/23: Ensure tid Will file Section VII on 07/02/23. 07/02/23: HCP activated today. Martine Elder is willing to serve in this role. [phone]. 07/03/23: Encourage treatment compliance 07/04/23 Encourage treatment compliance, begin process of validating HCP with the courts in order to provide pt with psychopharmacology options. 07/05/23 Encourage treatment. 07/07 remains disorganized in speech and behavior; refusing meds, paranoid -continue process of affirming HCP 07/08- Continue current plan. 07/09 continue current treatment plan 07/11/23 continue current treatment plan 07/12: Continue current regimen and plans 07/13: Continue current regimen and plans 07/14: Continue current plans and regimen 07/15/23: Continue current tx. Initiate regime 07/16. 07/17/23: Continue to encourage treatment. 07/18/23: Add prn Zyprexa IM if she refuses HS dosing 07/19: Continue current management and treatment plan. 07/20: Continue current management and treatment plan. 07/22: Continue tx. 07/23: Continue tx 07/24: Encourage milieu participation 07/26/23 continues too labile to interact with others- 07/27/23 - CTP encourage treatment 07/27/22 Continue tx plan; encourge meds as approved by HCP and court 07/29/23 schedule olanzepine discontinued after on hold for several days; awaiting invega sustenna to alleviate some of the psychosis in hopes patient more engageable and able to participate in her treatment; PO meds still ordered and should be offered with statement that they are court ordered and approved by HCP. 07/30/23 pt showing slight improvement- continue treatment plan 07/31/23 continue tx plan 08/01/23 continue tx plan 08/01 -Intermittently angry and irritable. Said hello to specifications writer but then when specifications writer asked how she was doing said none of your business. -Made swiping motion as if to scratch towards several staff, saying it was a curse -Yelled at peer today due to disorganized thought that person should not be in group room; yell that another peer who was going into the community refrigerator since patient thinks that the refrigerator is her property; able to be redirected 08/02 screamed at specifications writer and refused to enage. 08/03 staff agree Patient seems to be increasingly disorganized, walking briskly down the calle and yelling at peers, staff, making angry accusatory remarks and frightening and provoking some patients, causing some patients to become angry response. Will not engage with specifications writer. -patient on Invega Sustenna however behaviors are problematic, upsetting and sometimes scary to both peers and staff. Patient psychotic illness has gone untreated for quite some time and it seems likely she will need p.o. to overlap long-acting medication. Bulk Sealer Operator reached out to patient's healthcare proxy Brit Elder and left message to discuss treatment 08/06/23- Continue tx. Pt today able to reach out and initiate discussion. Benztropine 1 mg tid prn EPS 08/07/23- Continue tx. 08/08/23- Continue tx. 08/09/2023: Continue current regimen and plans. 08/10/2023: Continue current regimen and plans 08/12/23: Diagnostics 08/13/23. 08/13/23: Continue tx. 08/14/23: Continue tx. 08/15/23: Continue tx. 08/15: continue current management and treatment plan. 08/16: continue current management and treatment plan. 08/17: Continue tx. 08/18: Continue tx. 08/21/23: Continue tx. 08/22/23: Continue tx. Informed Consent: does not understand Reason for continued inpatient stay Substantial Risk for: rapid decompensation Time Spent With Patient Time: Total time managing care of this patient today ____ minutes.
[2023-08-23] MEDS: Ibuprofen 600 MG TABLET PO ×2 (08:21→21:07)
[2023-08-23] MEDS: OLANZapine ODT 10 MG TAB.RAPDIS TRANSLINGU ×2 (08:21→21:07)
--- NOTE | 2023-08-23 11:51 | P.PNPSI_ITS ---
Subjective Subjective Date of Service: 08/23/23 Reason For Visit: Schizoaffective disorder Interim History: Pt in her room, lying on bed- said not interested in meeting with me as I am not a real doctor. Nursing reports she seems improved - came up to nurse today called her Ugo, Ugo, get me my fentanyl when asking for her meds- (zyprexa) which she took - Medication Compliance: Intermittent Side effects from medications: No Attending Groups: No Review of Systems Acute medical concerns: No Medical Review of Systems: unchanged Mental Status Exam Mental Status Exam Patient Appearance: Disheveled (though showered) Patient Orientation: Person Level of Consciousness: Awake Patient Behavior: Restless, Resistive to Care, Uncooperative and Poor Eye Contact Mood Description: Suspicious and Labile Affect Description: Labile Ability to Follow Directions: Poor Speech Pattern: Clear Delusions: Paranoid Ideation Thought Process: Illogical Thought Content: positive for Loose Associations Abnormal Motor Activity Signs and Symptoms: Hyperactivity Judgement: Poor Diagnostics Vital Signs (24Hr): BMI result Body Mass Index 34.1 Labs 06/25/23 17:59 06/25/23 17:59 Medications Medications Current Medications Al Hydroxide/Mg Hydroxide (Magnesium Hydrox/Alum Hydrox 30 Ml Oral.Susp) 30 ml PO Q6H PRN PRN Reason: Heartburn/Nausea Albuterol Sulfate (Albuterol Sulfate 90 Mcg 8 Gm Inhaler) 2 puff INHALE Q4H PRN PRN Reason: Wheezing Benztropine Mesylate (Benztropine Mesylate 1 Mg Tablet) 1 mg PO TID PRN PRN Reason: Extrapyramidal Effects Duloxetine HCl (Duloxetine Hcl 20 Mg Capsule.) 40 mg PO DAILY [facility] Last Admin: 08/23/23 08:37 Dose: Not Given Hydroxyzine HCl (Hydroxyzine Hcl 25 Mg Tablet) 25 mg PO Q6H PRN PRN Reason: Anxiety Ibuprofen (Ibuprofen 600 Mg Tablet) 600 mg PO Q6H PRN PRN Reason: moderate to severe pain Last Admin: 08/23/23 08:21 Dose: 600 mg Lorazepam (Lorazepam 0.5 Mg Tablet) 0.5 mg PO BID [facility] Last Admin: 08/23/23 08:37 Dose: Not Given Magnesium Hydroxide (Milk Of Magnesia 30 Ml Oral.Susp) 30 ml PO DAILY PRN PRN Reason: Constipation Metformin HCl (Metformin Hcl 500 Mg Tablet) 500 mg PO BID [facility] Last Admin: 08/23/23 08:37 Dose: Not Given Metronidazole (Metronidazole 0.75 % Gel 45 Gm Tube) 1 appl TOPICAL DAILY [facility] Last Admin: 08/23/23 08:37 Dose: Not Given Multivitamins/Vitamin C (Multivitamin Tablet) 1 tab PO DAILY [facility] Last Admin: 08/23/23 08:37 Dose: Not Given Nicotine Polacrilex (Nicotine Polacrilex Lozenge 2 Mg Lozenge) 2 mg BUCCAL Q2H PRN PRN Reason: Nicotine Cravings Olanzapine (Olanzapine Odt 10 Mg Tab.Rapdis) 10 mg TRANSLINGU DAILY PRN PRN Reason: Psychosis Last Admin: 08/04/23 17:34 Dose: 10 mg Olanzapine (Olanzapine Odt 10 Mg Tab.Rapdis) 10 mg TRANSLINGU BID [facility] Last Admin: 08/23/23 08:21 Dose: 10 mg Olanzapine (Olanzapine 10 Mg Vial) 10 mg IM BID PRN PRN Reason: if refuses PO Zydis Last Admin: 08/13/23 09:17 Dose: 10 mg Paliperidone Palmitate (Paliperidone Palmitate 234 Mg/1.5 Ml Syringe) 234 mg IM Q30D [facility] Last Admin: 08/21/23 12:39 Dose: 234 mg Trazodone HCl (Trazodone Hcl 50 Mg Tablet) 50 mg PO BEDTIME MRX1 PRN PRN Reason: Insomnia Vitamin D (Cholecalciferol (Vitamin D3) 10 Mcg Tablet) 10 mcg PO DAILY [facility] Last Admin: 08/23/23 08:37 Dose: Not Given Allergies Allergies Allergy/AdvReac Type Severity Reaction Status Date / Time acetaminophen [From TYLENOL] Allergy Intermediate HIVES Verified 08/28/22 09:48 meperidine [From Demerol] Allergy Unknown Verified 08/28/22 09:48 Assessment & Plan Assessment & Plan (1) Schizoaffective disorder: Status: Acute Code(s): F25.9 - Schizoaffective disorder, unspecified Assessment and Plan: Presents with decompensation of schizoaffective disorder, while in group living environment. Not adherence appears to be a factor. Patient not engaging with interview, evaluation or adherent with medications ie declining same. Unable to care for self. Being held on a Section 12 that will on 07/02/23. In the meantime will try and establish report and encourage medication adherence. Plan 2/4: encourage med adherence. 07/01/23: Ensure tid Will file Section VII on 07/02/23. 07/02/23: HCP activated today. Martine Elder is willing to serve in this role. [phone]. 07/03/23: Encourage treatment compliance 07/04/23 Encourage treatment compliance, begin process of validating HCP with the courts in order to provide pt with psychopharmacology options. 07/05/23 Encourage treatment. 07/07 remains disorganized in speech and behavior; refusing meds, paranoid -continue process of affirming HCP 07/08- Continue current plan. 07/09 continue current treatment plan 07/11/23 continue current treatment plan 07/12: Continue current regimen and plans 07/13: Continue current regimen and plans 07/14: Continue current plans and regimen 07/15/23: Continue current tx. Initiate regime 07/16. 07/17/23: Continue to encourage treatment. 07/18/23: Add prn Zyprexa IM if she refuses HS dosing 07/19: Continue current management and treatment plan. 07/20: Continue current management and treatment plan. 07/22: Continue tx. 07/23: Continue tx 07/24: Encourage milieu participation 07/26/23 continues too labile to interact with others- 07/27/23 - CTP encourage treatment 07/27/22 Continue tx plan; encourge meds as approved by HCP and court 07/29/23 schedule olanzepine discontinued after on hold for several days; awaiting invega sustenna to alleviate some of the psychosis in hopes patient more engageable and able to participate in her treatment; PO meds still ordered and should be offered with statement that they are court ordered and approved by HCP. 07/30/23 pt showing slight improvement- continue treatment plan 07/31/23 continue tx plan 08/01/23 continue tx plan 08/01 -Intermittently angry and irritable. Said hello to group underwriter but then when group underwriter asked how she was doing said none of your business. -Made swiping motion as if to scratch towards several staff, saying it was a curse -Yelled at peer today due to disorganized thought that person should not be in group room; yell that another peer who was going into the community refrigerator since patient thinks that the refrigerator is her property; able to be redirected 08/02 screamed at group underwriter and refused to enage. 08/03 staff agree Patient seems to be increasingly disorganized, walking briskly down the calle and yelling at peers, staff, making angry accusatory remarks and frightening and provoking some patients, causing some patients to become angry response. Will not engage with group underwriter. -patient on Invega Sustenna however behaviors are problematic, upsetting and sometimes scary to both peers and staff. Patient psychotic illness has gone untreated for quite some time and it seems likely she will need p.o. to overlap long-acting medication. Emergency Room Technician reached out to patient's healthcare proxy Brit Elder and left message to discuss treatment 08/06/23- Continue tx. Pt today able to reach out and initiate discussion. Benztropine 1 mg tid prn EPS 08/07/23- Continue tx. 08/08/23- Continue tx. 08/09/2023: Continue current regimen and plans. 08/10/2023: Continue current regimen and plans 08/12/23: Diagnostics 08/13/23. 08/13/23: Continue tx. 08/14/23: Continue tx. 08/15/23: Continue tx. 08/15: continue current management and treatment plan. 08/16: continue current management and treatment plan. 08/17: Continue tx. 08/18: Continue tx. 08/21/23: Continue tx. 08/22/23: Continue tx. 08/23/23 improving alds and med compliance- but picks and chooses who she will interact with Informed Consent: does not understand Reason for continued inpatient stay Substantial Risk for: inability to function and rapid decompensation Time Spent With Patient Time: Total time managing care of this patient today ____ minutes.
[2023-08-24] MEDS: Ibuprofen 600 MG TABLET PO ×2 (08:46→16:30)
[2023-08-24] MEDS: OLANZapine ODT 10 MG TAB.RAPDIS TRANSLINGU ×2 (08:52→20:01)
--- NOTE | 2023-08-24 12:45 | P.PNPSI_ITS ---
Subjective Subjective Date of Service: 08/24/23 Reason For Visit: Schizoaffective disorder Subjective Notes: Conditional Voluntary Interim History: Lying in bed, continues to refuse to meet with provider- Nursing reports compliant with medication, and also disorganized behavior. Medication Compliance: Yes Side effects from medications: No Attending Groups: No Review of Systems Acute medical concerns: No Medical Review of Systems: unchanged Mental Status Exam Mental Status Exam Patient Appearance: Disheveled (though showered) Patient Orientation: Person Level of Consciousness: Awake Patient Behavior: Restless, Resistive to Care, Uncooperative and Poor Eye Contact Mood Description: Suspicious and Labile Affect Description: Labile Ability to Follow Directions: Poor Speech Pattern: Clear Delusions: Paranoid Ideation Thought Process: Illogical Thought Content: positive for Loose Associations Abnormal Motor Activity Signs and Symptoms: Hyperactivity Judgement: Poor Diagnostics Vital Signs (24Hr): BMI result Body Mass Index 34.1 Labs 06/25/23 17:59 06/25/23 17:59 Medications Medications Current Medications Al Hydroxide/Mg Hydroxide (Magnesium Hydrox/Alum Hydrox 30 Ml Oral.Susp) 30 ml PO Q6H PRN PRN Reason: Heartburn/Nausea Albuterol Sulfate (Albuterol Sulfate 90 Mcg 8 Gm Inhaler) 2 puff INHALE Q4H PRN PRN Reason: Wheezing Benztropine Mesylate (Benztropine Mesylate 1 Mg Tablet) 1 mg PO TID PRN PRN Reason: Extrapyramidal Effects Duloxetine HCl (Duloxetine Hcl 20 Mg Capsule.Dr) 40 mg PO DAILY [facility] Last Admin: 08/24/23 08:55 Dose: Not Given Hydroxyzine HCl (Hydroxyzine Hcl 25 Mg Tablet) 25 mg PO Q6H PRN PRN Reason: Anxiety Ibuprofen (Ibuprofen 600 Mg Tablet) 600 mg PO Q6H PRN PRN Reason: moderate to severe pain Last Admin: 08/24/23 08:46 Dose: 600 mg Lorazepam (Lorazepam 0.5 Mg Tablet) 0.5 mg PO BID [facility] Last Admin: 08/24/23 08:55 Dose: Not Given Magnesium Hydroxide (Milk Of Magnesia 30 Ml Oral.Susp) 30 ml PO DAILY PRN PRN Reason: Constipation Metformin HCl (Metformin Hcl 500 Mg Tablet) 500 mg PO BID [facility] Last Admin: 08/24/23 08:55 Dose: Not Given Metronidazole (Metronidazole 0.75 % Gel 45 Gm Tube) 1 appl TOPICAL DAILY [facility] Last Admin: 08/24/23 08:55 Dose: Not Given Multivitamins/Vitamin C (Multivitamin Tablet) 1 tab PO DAILY [facility] Last Admin: 08/24/23 08:55 Dose: Not Given Nicotine Polacrilex (Nicotine Polacrilex Lozenge 2 Mg Lozenge) 2 mg BUCCAL Q2H PRN PRN Reason: Nicotine Cravings Olanzapine (Olanzapine Odt 10 Mg Tab.Rapdis) 10 mg TRANSLINGU DAILY PRN PRN Reason: Psychosis Last Admin: 08/04/23 17:34 Dose: 10 mg Olanzapine (Olanzapine Odt 10 Mg Tab.Rapdis) 10 mg TRANSLINGU BID [facility] Last Admin: 08/24/23 08:52 Dose: 10 mg Olanzapine (Olanzapine 10 Mg Vial) 10 mg IM BID PRN PRN Reason: if refuses PO Zydis Last Admin: 08/13/23 09:17 Dose: 10 mg Paliperidone Palmitate (Paliperidone Palmitate 234 Mg/1.5 Ml Syringe) 234 mg IM Q30D [facility] Last Admin: 08/21/23 12:39 Dose: 234 mg Trazodone HCl (Trazodone Hcl 50 Mg Tablet) 50 mg PO BEDTIME MRX1 PRN PRN Reason: Insomnia Vitamin D (Cholecalciferol (Vitamin D3) 10 Mcg Tablet) 10 mcg PO DAILY [facility] Last Admin: 08/24/23 08:55 Dose: Not Given Allergies Allergies Allergy/AdvReac Type Severity Reaction Status Date / Time acetaminophen [From TYLENOL] Allergy Intermediate HIVES Verified 08/28/22 09:48 meperidine [From Demerol] Allergy Unknown Verified 08/28/22 09:48 Assessment & Plan Assessment & Plan (1) Schizoaffective disorder: Qualifiers: Schizoaffective disorder type: bipolar Qualified Code(s): F25.0 - Schizoaffective disorder, bipolar type Status: Acute Code(s): F25.9 - Schizoaffective disorder, unspecified Assessment and Plan: Presents with decompensation of schizoaffective disorder, while in group living environment. Not adherence appears to be a factor. Patient not engaging with interview, evaluation or adherent with medications ie declining same. Unable to care for self. Being held on a Section 12 that will on 07/02/23. In the meantime will try and establish report and encourage medication adherence. Plan 06/29: encourage med adherence. 07/01/23: Ensure tid Will file Section VII on 07/02/23. 07/02/23: HCP activated today. Martine Elder is willing to serve in this role. [phone]. 07/03/23: Encourage treatment compliance 07/04/23 Encourage treatment compliance, begin process of validating HCP with the courts in order to provide pt with psychopharmacology options. 07/05/23 Encourage treatment. 07/07 remains disorganized in speech and behavior; refusing meds, paranoid -continue process of affirming HCP 07/08- Continue current plan. 07/09 continue current treatment plan 07/11/23 continue current treatment plan 07/12: Continue current regimen and plans 07/13: Continue current regimen and plans 07/14: Continue current plans and regimen 07/15/23: Continue current tx. Initiate regime 07/16. 07/17/23: Continue to encourage treatment. 07/18/23: Add prn Zyprexa IM if she refuses HS dosing 07/19: Continue current management and treatment plan. 07/20: Continue current management and treatment plan. 07/22: Continue tx. 07/23: Continue tx 07/24: Encourage milieu participation 07/26/23 continues too labile to interact with others- 07/27/23 - CTP encourage treatment 07/27/22 Continue tx plan; encourge meds as approved by HCP and court 07/29/23 schedule olanzepine discontinued after on hold for several days; awaiting invega sustenna to alleviate some of the psychosis in hopes patient more engageable and able to participate in her treatment; PO meds still ordered and should be offered with statement that they are court ordered and approved by HCP. 07/30/23 pt showing slight improvement- continue treatment plan 07/31/23 continue tx plan 08/01/23 continue tx plan 08/01 -Intermittently angry and irritable. Said hello to com writer but then when com writer asked how she was doing said none of your business. -Made swiping motion as if to scratch towards several staff, saying it was a curse -Yelled at peer today due to disorganized thought that person should not be in group room; yell that another peer who was going into the community refrigerator since patient thinks that the refrigerator is her property; able to be redirected 08/02 screamed at com writer and refused to enage. 08/03 staff agree Patient seems to be increasingly disorganized, walking briskly down the calle and yelling at peers, staff, making angry accusatory remarks and frightening and provoking some patients, causing some patients to become angry response. Will not engage with com writer. -patient on Invega Sustenna however behaviors are problematic, upsetting and sometimes scary to both peers and staff. Patient psychotic illness has gone untreated for quite some time and it seems likely she will need p.o. to overlap long-acting medication. [employer] Functional Analyst reached out to patient's healthcare proxy Brit Elder and left message to discuss treatment 08/06/23- Continue tx. Pt today able to reach out and initiate discussion. Benztropine 1 mg tid prn EPS 08/07/23- Continue tx. 08/08/23- Continue tx. 08/09/2023: Continue current regimen and plans. 08/10/2023: Continue current regimen and plans 08/12/23: Diagnostics 08/13/23. 08/13/23: Continue tx. 08/14/23: Continue tx. 08/15/23: Continue tx. 08/15: continue current management and treatment plan. 08/16: continue current management and treatment plan. 08/17: Continue tx. 08/18: Continue tx. 08/21/23: Continue tx. 08/22/23: Continue tx. 08/23/23 improving adls and med compliance- but picks and chooses who she will interact with 08/24/23- CTP Informed Consent: further education needed Reason for continued inpatient stay Substantial Risk for: inability to function and rapid decompensation Time Spent With Patient Time: Total time managing care of this patient today ____ minutes.
[2023-08-25] MEDS: OLANZapine ODT 10 MG TAB.RAPDIS TRANSLINGU ×2 (08:58→20:26)
[2023-08-25] MEDS: Ibuprofen 600 MG TABLET PO ×2 (09:00→18:52)
[2023-08-25 09:03] VITALS: RESP 18
--- NOTE | 2023-08-25 09:56 | P.PNPSI_ITS ---
Subjective Subjective Date of Service: 08/25/23 Reason For Visit: Schizoaffective disorder Interim History: met with patient; discussed with team; reviewed chart same presentation; pt would not engage with freelance copywriter but just gave freelance copywriter middle finger and briskly walked away Mental Status Exam Mental Status Exam Patient Appearance: Disheveled Patient Orientation: Person Level of Consciousness: Awake Patient Behavior: Restless, Resistive to Care, Uncooperative and Poor Eye Contact Mood Description: Suspicious and Labile Affect Description: Labile Ability to Follow Directions: Poor Speech Pattern: Clear Delusions: Paranoid Ideation Thought Process: Illogical Thought Content: positive for Loose Associations Abnormal Motor Activity Signs and Symptoms: Hyperactivity Judgement: Poor Diagnostics Vital Signs (24Hr): Vital Signs - 24 hr 08/25/23 09:03 Respiratory Rate 18 BMI result Body Mass Index 34.1 Labs 06/25/23 17:59 06/25/23 17:59 Medications Medications Current Medications Al Hydroxide/Mg Hydroxide (Magnesium Hydrox/Alum Hydrox 30 Ml Oral.Susp) 30 ml PO Q6H PRN PRN Reason: Heartburn/Nausea Albuterol Sulfate (Albuterol Sulfate 90 Mcg 8 Gm Inhaler) 2 puff INHALE Q4H PRN PRN Reason: Wheezing Benztropine Mesylate (Benztropine Mesylate 1 Mg Tablet) 1 mg PO TID PRN PRN Reason: Extrapyramidal Effects Duloxetine HCl (Duloxetine Hcl 20 Mg Capsule.Dr) 40 mg PO DAILY [facility] Last Admin: 08/25/23 09:11 Dose: Not Given Hydroxyzine HCl (Hydroxyzine Hcl 25 Mg Tablet) 25 mg PO Q6H PRN PRN Reason: Anxiety Ibuprofen (Ibuprofen 600 Mg Tablet) 600 mg PO Q6H PRN PRN Reason: moderate to severe pain Last Admin: 08/25/23 09:00 Dose: 600 mg Lorazepam (Lorazepam 0.5 Mg Tablet) 0.5 mg PO BID [facility] Last Admin: 08/25/23 09:11 Dose: Not Given Magnesium Hydroxide (Milk Of Magnesia 30 Ml Oral.Susp) 30 ml PO DAILY PRN PRN Reason: Constipation Metformin HCl (Metformin Hcl 500 Mg Tablet) 500 mg PO BID [facility] Last Admin: 08/25/23 09:02 Dose: Not Given Metronidazole (Metronidazole 0.75 % Gel 45 Gm Tube) 1 appl TOPICAL DAILY [facility] Last Admin: 08/25/23 09:02 Dose: Not Given Multivitamins/Vitamin C (Multivitamin Tablet) 1 tab PO DAILY [facility] Last Admin: 08/25/23 09:03 Dose: Not Given Nicotine Polacrilex (Nicotine Polacrilex Lozenge 2 Mg Lozenge) 2 mg BUCCAL Q2H PRN PRN Reason: Nicotine Cravings Olanzapine (Olanzapine Odt 10 Mg Tab.Rapdis) 10 mg TRANSLINGU DAILY PRN PRN Reason: Psychosis Last Admin: 08/04/23 17:34 Dose: 10 mg Olanzapine (Olanzapine Odt 10 Mg Tab.Rapdis) 10 mg TRANSLINGU BID [facility] Last Admin: 08/25/23 08:58 Dose: 10 mg Olanzapine (Olanzapine 10 Mg Vial) 10 mg IM BID PRN PRN Reason: if refuses PO Zydis Last Admin: 08/13/23 09:17 Dose: 10 mg Paliperidone Palmitate (Paliperidone Palmitate 234 Mg/1.5 Ml Syringe) 234 mg IM Q30D [facility] Last Admin: 08/21/23 12:39 Dose: 234 mg Trazodone HCl (Trazodone Hcl 50 Mg Tablet) 50 mg PO BEDTIME MRX1 PRN PRN Reason: Insomnia Vitamin D (Cholecalciferol (Vitamin D3) 10 Mcg Tablet) 10 mcg PO DAILY [facility] Last Admin: 08/25/23 09:02 Dose: Not Given Allergies Allergies Allergy/AdvReac Type Severity Reaction Status Date / Time acetaminophen [From TYLENOL] Allergy Intermediate HIVES Verified 08/28/22 09:48 meperidine [From Demerol] Allergy Unknown Verified 08/28/22 09:48 Assessment & Plan Assessment & Plan (1) Schizoaffective disorder: Qualifiers: Schizoaffective disorder type: bipolar Qualified Code(s): F25.0 - Schizoaffective disorder, bipolar type Status: Acute Code(s): F25.9 - Schizoaffective disorder, unspecified Assessment and Plan: Presents with decompensation of schizoaffective disorder, while in group living environment. Not adherence appears to be a factor. Patient not engaging with interview, evaluation or adherent with medications ie declining same. Unable to care for self. Being held on a Section 12 that will on 07/02/23. In the meantime will try and establish report and encourage medication adherence. Plan 06/29: encourage med adherence. 07/01/23: Ensure tid Will file Section VII on 07/02/23. 07/02/23: HCP activated today. Martine Elder is willing to serve in this role. [phone]. 07/03/23: Encourage treatment compliance 07/04/23 Encourage treatment compliance, begin process of validating HCP with the courts in order to provide pt with psychopharmacology options. 07/05/23 Encourage treatment. 07/07 remains disorganized in speech and behavior; refusing meds, paranoid -continue process of affirming HCP 07/08- Continue current plan. 07/09 continue current treatment plan 07/11/23 continue current treatment plan 07/12: Continue current regimen and plans 07/13: Continue current regimen and plans 07/14: Continue current plans and regimen 07/15/23: Continue current tx. Initiate regime 07/16. 07/17/23: Continue to encourage treatment. 07/18/23: Add prn Zyprexa IM if she refuses HS dosing 07/19: Continue current management and treatment plan. 07/20: Continue current management and treatment plan. 07/22: Continue tx. 07/23: Continue tx 07/24: Encourage milieu participation 07/26/23 continues too labile to interact with others- 07/27/23 - CTP encourage treatment 07/27/22 Continue tx plan; encourge meds as approved by HCP and court 07/29/23 schedule olanzepine discontinued after on hold for several days; awaiting invega sustenna to alleviate some of the psychosis in hopes patient more engageable and able to participate in her treatment; PO meds still ordered and should be offered with statement that they are court ordered and approved by HCP. 07/30/23 pt showing slight improvement- continue treatment plan 07/31/23 continue tx plan 08/01/23 continue tx plan 08/01 -Intermittently angry and irritable. Said hello to freelance copywriter but then when freelance copywriter asked how she was doing said none of your business. -Made swiping motion as if to scratch towards several staff, saying it was a curse -Yelled at peer today due to disorganized thought that person should not be in group room; yell that another peer who was going into the community refrigerator since patient thinks that the refrigerator is her property; able to be redirected 08/02 screamed at freelance copywriter and refused to enage. 08/03 staff agree Patient seems to be increasingly disorganized, walking briskly down the calle and yelling at peers, staff, making angry accusatory remarks and frightening and provoking some patients, causing some patients to become angry response. Will not engage with freelance copywriter. -patient on Invega Sustenna however behaviors are problematic, upsetting and sometimes scary to both peers and staff. Patient psychotic illness has gone untreated for quite some time and it seems likely she will need p.o. to overlap long-acting medication. Bladder Changer reached out to patient's healthcare proxy Brit Elder and left message to discuss treatment 08/06/23- Continue tx. Pt today able to reach out and initiate discussion. Benztropine 1 mg tid prn EPS 08/07/23- Continue tx. 08/08/23- Continue tx. 08/09/2023: Continue current regimen and plans. 08/10/2023: Continue current regimen and plans 08/12/23: Diagnostics 08/13/23. 08/13/23: Continue tx. 08/14/23: Continue tx. 08/15/23: Continue tx. 08/15: continue current management and treatment plan. 08/16: continue current management and treatment plan. 08/17: Continue tx. 08/18: Continue tx. 08/21/23: Continue tx. 08/22/23: Continue tx. 08/23/23 improving adls and med compliance- but picks and chooses who she will interact with 08/24/23- CTP 08/25/23 CTP Patient educated on: diagnosis Informed Consent: does not understand Reason for continued inpatient stay Substantial Risk for: inability to function Time Spent With Patient Time: Total time managing care of this patient today ____ minutes.
[2023-08-25 15:00] VITALS: BP 121/64; PULSE 95; RESP 16; TEMP 36.5; O2SAT 98
[2023-08-25 17:10] VITALS: RESP 16
[2023-08-26] MEDS: Ibuprofen 600 MG TABLET PO ×2 (03:35→17:24)
[2023-08-26 06:00] VITALS: RESP 18
[2023-08-26] MEDS: OLANZapine ODT 10 MG TAB.RAPDIS TRANSLINGU ×2 (10:03→20:41)
--- NOTE | 2023-08-26 11:34 | P.PNPSI_ITS ---
Subjective Subjective Date of Service: 08/26/23 Reason For Visit: Schizoaffective disorder Subjective Notes: Conditional Voluntary Healthcare Proxy: Yes Guardianship: No Medical Problems Affecting Mental Status: No Interim History: Pt approached tw today-offers a hug and a report that she is feeling better with less pain and overall feeling happier. She is smiling visable on the unit and non aggressive. No verbally caustic comments when we met and good eye contact, no evidence of a response to internal stimuli. Medication Compliance: Yes Side effects from medications: No Attending Groups: No Review of Systems Acute medical concerns: No Medical Review of Systems: unchanged Review of Systems Review of Systems Yes all other systems are reviewed and are negative Mental Status Exam Mental Status Exam Patient Appearance: Disheveled Patient Orientation: Person and Place Level of Consciousness: Alert Patient Behavior: Talkative Mood Description: Happy Affect Description: Happy Patient Cognition Impaired: Yes Ability to Follow Directions: Good Speech Pattern: Spontaneous Speech Memory Description: Remote Impaired Hallucinations: None Delusions: Not Present Thought Process: Distracted Thought Content: positive for Flight of Ideas and positive for Circumstantial Judgement: Poor Diagnostics Vital Signs (24Hr): Vital Signs - 24 hr 08/25/23 15:00 08/25/23 17:10 08/26/23 06:00 Temperature 97.7 F Pulse Rate 95 Respiratory Rate 16 16 18 Blood Pressure 121/64 Pulse Oximetry 98 Oxygen Delivery Method Room Air BMI result Body Mass Index 34.1 Labs 06/25/23 17:59 06/25/23 17:59 Medications Medications Current Medications Al Hydroxide/Mg Hydroxide (Magnesium Hydrox/Alum Hydrox 30 Ml Oral.Susp) 30 ml PO Q6H PRN PRN Reason: Heartburn/Nausea Albuterol Sulfate (Albuterol Sulfate 90 Mcg 8 Gm Inhaler) 2 puff INHALE Q4H PRN PRN Reason: Wheezing Benztropine Mesylate (Benztropine Mesylate 1 Mg Tablet) 1 mg PO TID PRN PRN Reason: Extrapyramidal Effects Duloxetine HCl (Duloxetine Hcl 20 Mg Capsule.Dr) 40 mg PO DAILY [facility] Last Admin: 08/26/23 10:14 Dose: Not Given Hydroxyzine HCl (Hydroxyzine Hcl 25 Mg Tablet) 25 mg PO Q6H PRN PRN Reason: Anxiety Ibuprofen (Ibuprofen 600 Mg Tablet) 600 mg PO Q6H PRN PRN Reason: moderate to severe pain Last Admin: 08/26/23 03:35 Dose: 600 mg Lorazepam (Lorazepam 0.5 Mg Tablet) 0.5 mg PO BID [facility] Last Admin: 08/26/23 10:14 Dose: Not Given Magnesium Hydroxide (Milk Of Magnesia 30 Ml Oral.Susp) 30 ml PO DAILY PRN PRN Reason: Constipation Metformin HCl (Metformin Hcl 500 Mg Tablet) 500 mg PO BID [facility] Last Admin: 08/26/23 10:13 Dose: Not Given Metronidazole (Metronidazole 0.75 % Gel 45 Gm Tube) 1 appl TOPICAL DAILY [facility] Last Admin: 08/26/23 10:13 Dose: Not Given Multivitamins/Vitamin C (Multivitamin Tablet) 1 tab PO DAILY [facility] Last Admin: 08/26/23 10:13 Dose: Not Given Nicotine Polacrilex (Nicotine Polacrilex Lozenge 2 Mg Lozenge) 2 mg BUCCAL Q2H PRN PRN Reason: Nicotine Cravings Olanzapine (Olanzapine Odt 10 Mg Tab.Rapdis) 10 mg TRANSLINGU DAILY PRN PRN Reason: Psychosis Last Admin: 08/04/23 17:34 Dose: 10 mg Olanzapine (Olanzapine Odt 10 Mg Tab.Rapdis) 10 mg TRANSLINGU BID [facility] Last Admin: 08/26/23 10:03 Dose: 10 mg Olanzapine (Olanzapine 10 Mg Vial) 10 mg IM BID PRN PRN Reason: if refuses PO Zydis Last Admin: 08/13/23 09:17 Dose: 10 mg Paliperidone Palmitate (Paliperidone Palmitate 234 Mg/1.5 Ml Syringe) 234 mg IM Q30D [facility] Last Admin: 08/21/23 12:39 Dose: 234 mg Trazodone HCl (Trazodone Hcl 50 Mg Tablet) 50 mg PO BEDTIME MRX1 PRN PRN Reason: Insomnia Vitamin D (Cholecalciferol (Vitamin D3) 10 Mcg Tablet) 10 mcg PO DAILY [facility] Last Admin: 08/26/23 10:13 Dose: Not Given Allergies Allergies Allergy/AdvReac Type Severity Reaction Status Date / Time acetaminophen [From TYLENOL] Allergy Intermediate HIVES Verified 08/28/22 09:48 meperidine [From Demerol] Allergy Unknown Verified 08/28/22 09:48 Assessment & Plan Assessment & Plan (1) Schizoaffective disorder: Qualifiers: Schizoaffective disorder type: bipolar Qualified Code(s): F25.0 - Schizoaffective disorder, bipolar type Status: Acute Code(s): F25.9 - Schizoaffective disorder, unspecified Assessment and Plan: Presents with decompensation of schizoaffective disorder, while in group living environment. Not adherence appears to be a factor. Patient not engaging with interview, evaluation or adherent with medications ie declining same. Unable to care for self. Being held on a Section 12 that will on 07/02/23. In the meantime will try and establish report and encourage medication adherence. Plan 06/29: encourage med adherence. 07/01/23: Ensure tid Will file Section VII on 07/02/23. 07/02/23: HCP activated today. Martine Elder is willing to serve in this role. [phone]. 07/03/23: Encourage treatment compliance 07/04/23 Encourage treatment compliance, begin process of validating HCP with the courts in order to provide pt with psychopharmacology options. 07/05/23 Encourage treatment. 07/07 remains disorganized in speech and behavior; refusing meds, paranoid -continue process of affirming HCP 07/08- Continue current plan. 07/09 continue current treatment plan 07/11/23 continue current treatment plan 07/12: Continue current regimen and plans 07/13: Continue current regimen and plans 07/14: Continue current plans and regimen 07/15/23: Continue current tx. Initiate regime 07/16. 07/17/23: Continue to encourage treatment. 07/18/23: Add prn Zyprexa IM if she refuses HS dosing 07/19: Continue current management and treatment plan. 07/20: Continue current management and treatment plan. 07/22: Continue tx. 07/23: Continue tx 07/24: Encourage milieu participation 07/26/23 continues too labile to interact with others- 07/27/23 - CTP encourage treatment 07/27/22 Continue tx plan; encourge meds as approved by HCP and court 07/29/23 schedule olanzepine discontinued after on hold for several days; awaiting invega sustenna to alleviate some of the psychosis in hopes patient more engageable and able to participate in her treatment; PO meds still ordered and should be offered with statement that they are court ordered and approved by HCP. 07/30/23 pt showing slight improvement- continue treatment plan 07/31/23 continue tx plan 08/01/23 continue tx plan 08/01 -Intermittently angry and irritable. Said hello to health technical writer but then when health technical writer asked how she was doing said none of your business. -Made swiping motion as if to scratch towards several staff, saying it was a curse -Yelled at peer today due to disorganized thought that person should not be in group room; yell that another peer who was going into the community refrigerator since patient thinks that the refrigerator is her property; able to be redirected 08/02 screamed at health technical writer and refused to enage. 08/03 staff agree Patient seems to be increasingly disorganized, walking briskly down the calle and yelling at peers, staff, making angry accusatory remarks and frightening and provoking some patients, causing some patients to become angry response. Will not engage with health technical writer. -patient on Invega Sustenna however behaviors are problematic, upsetting and sometimes scary to both peers and staff. Patient psychotic illness has gone untreated for quite some time and it seems likely she will need p.o. to overlap long-acting medication. [employer] Machine Set Up Operator reached out to patient's healthcare proxy Brit Elder and left message to discuss treatment 08/06/23- Continue tx. Pt today able to reach out and initiate discussion. Benztropine 1 mg tid prn EPS 08/07/23- Continue tx. 08/08/23- Continue tx. 08/09/2023: Continue current regimen and plans. 08/10/2023: Continue current regimen and plans 08/12/23: Diagnostics 08/13/23. 08/13/23: Continue tx. 08/14/23: Continue tx. 08/15/23: Continue tx. 08/15: continue current management and treatment plan. 08/16: continue current management and treatment plan. 08/17: Continue tx. 08/18: Continue tx. 08/21/23: Continue tx. 08/22/23: Continue tx. 08/23/23 improving adls and med compliance- but picks and chooses who she will interact with 08/24/23- CTP 08/25/23 CTP 08/26/23- Continue tx- attempt diagnostics again this week. Patient educated on: therapeutic strategies Informed Consent: does not understand Reason for continued inpatient stay Substantial Risk for: rapid decompensation Time Spent With Patient Time: Total time managing care of this patient today ____ minutes.
[2023-08-27] MEDS: Ibuprofen 600 MG TABLET PO ×2 (04:54→18:11)
[2023-08-27 07:58] VITALS: BP 149/79; PULSE 82; RESP 16; TEMP 36.5; O2SAT 98
[2023-08-27] MEDS: OLANZapine ODT 10 MG TAB.RAPDIS TRANSLINGU ×2 (08:46→20:34)
--- NOTE | 2023-08-27 15:44 | HO.PSYCHPN ---
Subjective Subjective Date of Service: 08/27/23 Reason For Visit: Schizoaffective disorder Subjective Notes: Conditional Voluntary Healthcare Proxy: Yes Guardianship: No Medical Problems Affecting Mental Status: No Interim History: Angry, confrontive, labile with ongoing delusional content. Demanding discharge, states she owns the [facility] and the staff. Team did make contact with her residential team-we have asked them to begin visiting pt. Medication Compliance: Yes Side effects from medications: No Attending Groups: Intermittent Review of Systems Acute medical concerns: No Medical Review of Systems: unchanged Review of Systems Review of Systems Yes Unobtainable due to mental status Mental Status Exam Mental Status Exam Patient Appearance: Disheveled Patient Orientation: Person and Place Level of Consciousness: Alert Patient Behavior: Talkative Mood Description: Happy Affect Description: Happy Patient Cognition Impaired: Yes Ability to Follow Directions: Good Speech Pattern: Spontaneous Speech Memory Description: Remote Impaired Hallucinations: None Delusions: Not Present Thought Process: Distracted Thought Content: positive for Flight of Ideas and positive for Circumstantial Judgement: Poor Diagnostics Vital Signs (24Hr): Vital Signs - 24 hr 08/27/23 07:58 Temperature 97.7 F Pulse Rate 82 Respiratory Rate 16 Blood Pressure 149/79 H Pulse Oximetry 98 Oxygen Delivery Method Room Air BMI result Body Mass Index 34.1 Labs 06/25/23 17:59 06/25/23 17:59 Medications Medications Current Medications Al Hydroxide/Mg Hydroxide (Magnesium Hydrox/Alum Hydrox 30 Ml Oral.Susp) 30 ml PO Q6H PRN PRN Reason: Heartburn/Nausea Albuterol Sulfate (Albuterol Sulfate 90 Mcg 8 Gm Inhaler) 2 puff INHALE Q4H PRN PRN Reason: Wheezing Benztropine Mesylate (Benztropine Mesylate 1 Mg Tablet) 1 mg PO TID PRN PRN Reason: Extrapyramidal Effects Duloxetine HCl (Duloxetine Hcl 20 Mg Capsule.Dr) 40 mg PO DAILY [facility] Last Admin: 08/27/23 12:34 Dose: Not Given Hydroxyzine HCl (Hydroxyzine Hcl 25 Mg Tablet) 25 mg PO Q6H PRN PRN Reason: Anxiety Ibuprofen (Ibuprofen 600 Mg Tablet) 600 mg PO Q6H PRN PRN Reason: moderate to severe pain Last Admin: 08/27/23 04:54 Dose: 600 mg Lorazepam (Lorazepam 0.5 Mg Tablet) 0.5 mg PO BID [facility] Last Admin: 08/27/23 12:34 Dose: Not Given Magnesium Hydroxide (Milk Of Magnesia 30 Ml Oral.Susp) 30 ml PO DAILY PRN PRN Reason: Constipation Metformin HCl (Metformin Hcl 500 Mg Tablet) 500 mg PO BID [facility] Last Admin: 08/27/23 12:34 Dose: Not Given Metronidazole (Metronidazole 0.75 % Gel 45 Gm Tube) 1 appl TOPICAL DAILY [facility] Last Admin: 08/27/23 12:35 Dose: Not Given Multivitamins/Vitamin C (Multivitamin Tablet) 1 tab PO DAILY [facility] Last Admin: 08/27/23 12:35 Dose: Not Given Nicotine Polacrilex (Nicotine Polacrilex Lozenge 2 Mg Lozenge) 2 mg BUCCAL Q2H PRN PRN Reason: Nicotine Cravings Olanzapine (Olanzapine Odt 10 Mg Tab.Rapdis) 10 mg TRANSLINGU DAILY PRN PRN Reason: Psychosis Last Admin: 08/04/23 17:34 Dose: 10 mg Olanzapine (Olanzapine Odt 10 Mg Tab.Rapdis) 10 mg TRANSLINGU BID [facility] Last Admin: 08/27/23 08:46 Dose: 10 mg Olanzapine (Olanzapine 10 Mg Vial) 10 mg IM BID PRN PRN Reason: if refuses PO Zydis Last Admin: 08/13/23 09:17 Dose: 10 mg Paliperidone Palmitate (Paliperidone Palmitate 234 Mg/1.5 Ml Syringe) 234 mg IM Q30D [facility] Last Admin: 08/21/23 12:39 Dose: 234 mg Trazodone HCl (Trazodone Hcl 50 Mg Tablet) 50 mg PO BEDTIME MRX1 PRN PRN Reason: Insomnia Vitamin D (Cholecalciferol (Vitamin D3) 10 Mcg Tablet) 10 mcg PO DAILY [facility] Last Admin: 08/27/23 12:34 Dose: Not Given Allergies Allergies Allergy/AdvReac Type Severity Reaction Status Date / Time acetaminophen [From TYLENOL] Allergy Intermediate HIVES Verified 08/28/22 09:48 meperidine [From Demerol] Allergy Unknown Verified 08/28/22 09:48 Assessment & Plan Assessment & Plan (1) Schizoaffective disorder: Qualifiers: Schizoaffective disorder type: bipolar Qualified Code(s): F25.0 - Schizoaffective disorder, bipolar type Status: Acute Code(s): F25.9 - Schizoaffective disorder, unspecified Assessment and Plan: Presents with decompensation of schizoaffective disorder, while in group living environment. Not adherence appears to be a factor. Patient not engaging with interview, evaluation or adherent with medications ie declining same. Unable to care for self. Being held on a Section 12 that will on 07/02/23. In the meantime will try and establish report and encourage medication adherence. Plan 06/29: encourage med adherence. 07/01/23: Ensure tid Will file Section VII on 07/02/23. 07/02/23: HCP activated today. Martine Elder is willing to serve in this role. [phone]. 07/03/23: Encourage treatment compliance 07/04/23 Encourage treatment compliance, begin process of validating HCP with the courts in order to provide pt with psychopharmacology options. 07/05/23 Encourage treatment. 07/07 remains disorganized in speech and behavior; refusing meds, paranoid -continue process of affirming HCP 07/08- Continue current plan. 07/09 continue current treatment plan 07/11/23 continue current treatment plan 07/12: Continue current regimen and plans 07/13: Continue current regimen and plans 07/14: Continue current plans and regimen 07/15/23: Continue current tx. Initiate regime 07/16. 07/17/23: Continue to encourage treatment. 07/18/23: Add prn Zyprexa IM if she refuses HS dosing 07/19: Continue current management and treatment plan. 07/20: Continue current management and treatment plan. 07/22: Continue tx. 07/23: Continue tx 07/24: Encourage milieu participation 07/26/23 continues too labile to interact with others- 07/27/23 - CTP encourage treatment 07/27/22 Continue tx plan; encourge meds as approved by HCP and court 07/29/23 schedule olanzepine discontinued after on hold for several days; awaiting invega sustenna to alleviate some of the psychosis in hopes patient more engageable and able to participate in her treatment; PO meds still ordered and should be offered with statement that they are court ordered and approved by HCP. 07/30/23 pt showing slight improvement- continue treatment plan 07/31/23 continue tx plan 08/01/23 continue tx plan 08/01 -Intermittently angry and irritable. Said hello to manual writer but then when manual writer asked how she was doing said none of your business. -Made swiping motion as if to scratch towards several staff, saying it was a curse -Yelled at peer today due to disorganized thought that person should not be in group room; yell that another peer who was going into the community refrigerator since patient thinks that the refrigerator is her property; able to be redirected 08/02 screamed at manual writer and refused to enage. 08/03 staff agree Patient seems to be increasingly disorganized, walking briskly down the calle and yelling at peers, staff, making angry accusatory remarks and frightening and provoking some patients, causing some patients to become angry response. Will not engage with manual writer. -patient on Invega Sustenna however behaviors are problematic, upsetting and sometimes scary to both peers and staff. Patient psychotic illness has gone untreated for quite some time and it seems likely she will need p.o. to overlap long-acting medication. [employer] Prospect[employer] Observer reached out to patient's healthcare proxy Brit Elder and left message to discuss treatment 08/06/23- Continue tx. Pt today able to reach out and initiate discussion. Benztropine 1 mg tid prn EPS 08/07/23- Continue tx. 08/08/23- Continue tx. 08/09/2023: Continue current regimen and plans. 08/10/2023: Continue current regimen and plans 08/12/23: Diagnostics 08/13/23. 08/13/23: Continue tx. 08/14/23: Continue tx. 08/15/23: Continue tx. 08/15: continue current management and treatment plan. 08/16: continue current management and treatment plan. 08/17: Continue tx. 08/18: Continue tx. 08/21/23: Continue tx. 08/22/23: Continue tx. 08/23/23 improving adls and med compliance- but picks and chooses who she will interact with 08/24/23- CTP 08/25/23 CTP 08/26/23- Continue tx- attempt diagnostics again this week. 08/27/23- Continue tx. Support, encourage diagnostics-refusing currently. Pt believes there is fentanyl in the lab needle. Patient educated on: medication risk/benefits, therapeutic strategies and medical condition Informed Consent: does not understand Reason for continued inpatient stay Substantial Risk for: rapid decompensation Time Spent With Patient Time: Total time managing care of this patient today ____ minutes.
[2023-08-27 18:45] VITALS: BP 145/65; PULSE 99; RESP 16; TEMP 36.6; O2SAT 96
[2023-08-28 06:00] VITALS: BP 158/80; PULSE 80; RESP 16; TEMP 36.5; O2SAT 100
[2023-08-28] MEDS: Ibuprofen 600 MG TABLET PO ×2 (08:29→20:20)
[2023-08-28] MEDS: OLANZapine ODT 10 MG TAB.RAPDIS TRANSLINGU ×2 (08:30→20:20)
--- NOTE | 2023-08-28 15:09 | HO.PSYCHPN ---
Subjective Subjective Date of Service: 08/28/23 Reason For Visit: Schizoaffective disorder Subjective Notes: Conditional Voluntary Healthcare Proxy: Yes Guardianship: No Medical Problems Affecting Mental Status: No Interim History: Guarded, confrontive, again demanding discharge. Delusional regarding owning her care home house, the staff. States she is ready to leave immediately. Discussed some of the things we are looking at for discharge including medicine compliance, attention to ADL's, decrease in lability of mood, and rational thought process. Pt did not comment on these when presented, she returned to later in the afternoon stating, I am not ready yet . Emphasized her progress thus far and encouraged her continued work. Medication Compliance: Yes Side effects from medications: No Attending Groups: No Review of Systems Acute medical concerns: No Medical Review of Systems: unchanged Review of Systems Review of Systems Yes Unobtainable due to mental status Mental Status Exam Mental Status Exam Patient Appearance: Disheveled Patient Orientation: Person and Place Level of Consciousness: Alert Patient Behavior: Talkative Mood Description: Happy Affect Description: Happy Patient Cognition Impaired: Yes Ability to Follow Directions: Good Speech Pattern: Spontaneous Speech Memory Description: Remote Impaired Hallucinations: None Delusions: Not Present Thought Process: Distracted Thought Content: positive for Flight of Ideas and positive for Circumstantial Judgement: Poor Diagnostics Vital Signs (24Hr): Vital Signs - 24 hr 08/27/23 18:45 08/28/23 06:00 Temperature 97.8 F 97.7 F Pulse Rate 99 80 Respiratory Rate 16 16 Blood Pressure 145/65 H 158/80 H Pulse Oximetry 96 100 Oxygen Delivery Method Room Air Room Air BMI result Body Mass Index 34.1 Labs 06/25/23 17:59 06/25/23 17:59 Medications Medications Current Medications Al Hydroxide/Mg Hydroxide (Magnesium Hydrox/Alum Hydrox 30 Ml Oral.Susp) 30 ml PO Q6H PRN PRN Reason: Heartburn/Nausea Albuterol Sulfate (Albuterol Sulfate 90 Mcg 8 Gm Inhaler) 2 puff INHALE Q4H PRN PRN Reason: Wheezing Benztropine Mesylate (Benztropine Mesylate 1 Mg Tablet) 1 mg PO TID PRN PRN Reason: Extrapyramidal Effects Duloxetine HCl (Duloxetine Hcl 20 Mg Capsule.Dr) 40 mg PO DAILY [facility] Last Admin: 08/28/23 08:32 Dose: Not Given Hydroxyzine HCl (Hydroxyzine Hcl 25 Mg Tablet) 25 mg PO Q6H PRN PRN Reason: Anxiety Ibuprofen (Ibuprofen 600 Mg Tablet) 600 mg PO Q6H PRN PRN Reason: moderate to severe pain Last Admin: 08/28/23 08:29 Dose: 600 mg Lorazepam (Lorazepam 0.5 Mg Tablet) 0.5 mg PO BID [facility] Last Admin: 08/28/23 08:33 Dose: Not Given Magnesium Hydroxide (Milk Of Magnesia 30 Ml Oral.Susp) 30 ml PO DAILY PRN PRN Reason: Constipation Metformin HCl (Metformin Hcl 500 Mg Tablet) 500 mg PO BID [facility] Last Admin: 08/28/23 08:33 Dose: Not Given Metronidazole (Metronidazole 0.75 % Gel 45 Gm Tube) 1 appl TOPICAL DAILY [facility] Last Admin: 08/28/23 08:33 Dose: Not Given Multivitamins/Vitamin C (Multivitamin Tablet) 1 tab PO DAILY [facility] Last Admin: 08/28/23 08:33 Dose: Not Given Nicotine Polacrilex (Nicotine Polacrilex Lozenge 2 Mg Lozenge) 2 mg BUCCAL Q2H PRN PRN Reason: Nicotine Cravings Olanzapine (Olanzapine Odt 10 Mg Tab.Rapdis) 10 mg TRANSLINGU DAILY PRN PRN Reason: Psychosis Last Admin: 08/04/23 17:34 Dose: 10 mg Olanzapine (Olanzapine Odt 10 Mg Tab.Rapdis) 10 mg TRANSLINGU BID [facility] Last Admin: 08/28/23 08:30 Dose: 10 mg Olanzapine (Olanzapine 10 Mg Vial) 10 mg IM BID PRN PRN Reason: if refuses PO Zydis Last Admin: 08/13/23 09:17 Dose: 10 mg Paliperidone Palmitate (Paliperidone Palmitate 234 Mg/1.5 Ml Syringe) 234 mg IM Q30D [facility] Last Admin: 08/21/23 12:39 Dose: 234 mg Trazodone HCl (Trazodone Hcl 50 Mg Tablet) 50 mg PO BEDTIME MRX1 PRN PRN Reason: Insomnia Vitamin D (Cholecalciferol (Vitamin D3) 10 Mcg Tablet) 10 mcg PO DAILY [facility] Last Admin: 08/28/23 08:32 Dose: Not Given Allergies Allergies Allergy/AdvReac Type Severity Reaction Status Date / Time acetaminophen [From TYLENOL] Allergy Intermediate HIVES Verified 08/28/22 09:48 meperidine [From Demerol] Allergy Unknown Verified 08/28/22 09:48 Assessment & Plan Assessment & Plan (1) Schizoaffective disorder: Qualifiers: Schizoaffective disorder type: bipolar Qualified Code(s): F25.0 - Schizoaffective disorder, bipolar type Status: Acute Code(s): F25.9 - Schizoaffective disorder, unspecified Assessment and Plan: Presents with decompensation of schizoaffective disorder, while in group living environment. Not adherence appears to be a factor. Patient not engaging with interview, evaluation or adherent with medications ie declining same. Unable to care for self. Being held on a Section 12 that will on 07/02/23. In the meantime will try and establish report and encourage medication adherence. Plan 06/29: encourage med adherence. 07/01/23: Ensure tid Will file Section VII on 07/02/23. 07/02/23: HCP activated today. Martine Elder is willing to serve in this role. [phone]. 07/03/23: Encourage treatment compliance 07/04/23 Encourage treatment compliance, begin process of validating HCP with the courts in order to provide pt with psychopharmacology options. 07/05/23 Encourage treatment. 07/07 remains disorganized in speech and behavior; refusing meds, paranoid -continue process of affirming HCP 07/08- Continue current plan. 07/09 continue current treatment plan 07/11/23 continue current treatment plan 07/12: Continue current regimen and plans 07/13: Continue current regimen and plans 07/14: Continue current plans and regimen 07/15/23: Continue current tx. Initiate regime 07/16. 07/17/23: Continue to encourage treatment. 07/18/23: Add prn Zyprexa IM if she refuses HS dosing 07/19: Continue current management and treatment plan. 07/20: Continue current management and treatment plan. 07/22: Continue tx. 07/23: Continue tx 07/24: Encourage milieu participation 07/26/23 continues too labile to interact with others- 07/27/23 - CTP encourage treatment 07/27/22 Continue tx plan; encourge meds as approved by HCP and court 07/29/23 schedule olanzepine discontinued after on hold for several days; awaiting invega sustenna to alleviate some of the psychosis in hopes patient more engageable and able to participate in her treatment; PO meds still ordered and should be offered with statement that they are court ordered and approved by HCP. 07/30/23 pt showing slight improvement- continue treatment plan 07/31/23 continue tx plan 08/01/23 continue tx plan 08/01 -Intermittently angry and irritable. Said hello to filing writer but then when filing writer asked how she was doing said none of your business. -Made swiping motion as if to scratch towards several staff, saying it was a curse -Yelled at peer today due to disorganized thought that person should not be in group room; yell that another peer who was going into the community refrigerator since patient thinks that the refrigerator is her property; able to be redirected 08/02 screamed at filing writer and refused to enage. 08/03 staff agree Patient seems to be increasingly disorganized, walking briskly down the calle and yelling at peers, staff, making angry accusatory remarks and frightening and provoking some patients, causing some patients to become angry response. Will not engage with filing writer. -patient on Invega Sustenna however behaviors are problematic, upsetting and sometimes scary to both peers and staff. Patient psychotic illness has gone untreated for quite some time and it seems likely she will need p.o. to overlap long-acting medication. Histology Technician reached out to patient's healthcare proxy Brit Elder and left message to discuss treatment 08/06/23- Continue tx. Pt today able to reach out and initiate discussion. Benztropine 1 mg tid prn EPS 08/07/23- Continue tx. 08/08/23- Continue tx. 08/09/2023: Continue current regimen and plans. 08/10/2023: Continue current regimen and plans 08/12/23: Diagnostics 08/13/23. 08/13/23: Continue tx. 08/14/23: Continue tx. 08/15/23: Continue tx. 08/15: continue current management and treatment plan. 08/16: continue current management and treatment plan. 08/17: Continue tx. 08/18: Continue tx. 08/21/23: Continue tx. 08/22/23: Continue tx. 08/23/23 improving adls and med compliance- but picks and chooses who she will interact with 08/24/23- CTP 08/25/23 CTP 08/26/23- Continue tx- attempt diagnostics again this week. 08/28/23- Continue tx. Informed Consent: does not understand Reason for continued inpatient stay Substantial Risk for: rapid decompensation Time Spent With Patient Time: Total time managing care of this patient today ____ minutes.
[2023-08-28 18:00] VITALS: RESP 18
[2023-08-29 07:40] VITALS: RESP 18
[2023-08-29] MEDS: OLANZapine ODT 10 MG TAB.RAPDIS TRANSLINGU ×2 (08:47→22:36)
[2023-08-29] MEDS: Ibuprofen 600 MG TABLET PO ×2 (08:47→18:08)
--- NOTE | 2023-08-29 14:45 | HO.PSYCHPN ---
Subjective Subjective Date of Service: 08/29/23 Reason For Visit: Schizoaffective disorder Subjective Notes: Conditional Voluntary Healthcare Proxy: Yes Guardianship: No Medical Problems Affecting Mental Status: No Interim History: Pt calmer today. We discussed her treatment plan. Discussed what is needed to begin discharge planning including taking all of her medicines on a regular basis, regular attention to ADL's, showering and attention to hygiene, group attendance and participation and beginning to meet with her residential team and participating in active planning for her return home. Pt reports she will not participate in this plan as she owns her assisted house, the staff, the pharmacy and the hospital. All of you will do as I want. Pt ended this discussion and did not want to talk further about it. Her team has been contacted to make contact and begin discussion of her return home. Medication Compliance: Intermittent Side effects from medications: No Attending Groups: No Review of Systems Acute medical concerns: No Medical Review of Systems: unchanged Review of Systems Review of Systems Yes Unobtainable due to mental status Mental Status Exam Mental Status Exam Patient Appearance: Disheveled Patient Orientation: Person and Place Level of Consciousness: Alert Patient Behavior: Talkative Mood Description: Happy Affect Description: Happy Patient Cognition Impaired: Yes Ability to Follow Directions: Good Speech Pattern: Spontaneous Speech Memory Description: Remote Impaired Hallucinations: None Delusions: Not Present Thought Process: Distracted Thought Content: positive for Flight of Ideas and positive for Circumstantial Judgement: Poor Diagnostics Vital Signs (24Hr): Vital Signs - 24 hr 08/28/23 18:00 08/29/23 07:40 Respiratory Rate 18 18 BMI result Body Mass Index 34.1 Labs 06/25/23 17:59 06/25/23 17:59 Medications Medications Current Medications Al Hydroxide/Mg Hydroxide (Magnesium Hydrox/Alum Hydrox 30 Ml Oral.Susp) 30 ml PO Q6H PRN PRN Reason: Heartburn/Nausea Albuterol Sulfate (Albuterol Sulfate 90 Mcg 8 Gm Inhaler) 2 puff INHALE Q4H PRN PRN Reason: Wheezing Benztropine Mesylate (Benztropine Mesylate 1 Mg Tablet) 1 mg PO TID PRN PRN Reason: Extrapyramidal Effects Duloxetine HCl (Duloxetine Hcl 20 Mg Capsule.Dr) 40 mg PO DAILY [facility] Last Admin: 08/29/23 08:49 Dose: Not Given Hydroxyzine HCl (Hydroxyzine Hcl 25 Mg Tablet) 25 mg PO Q6H PRN PRN Reason: Anxiety Ibuprofen (Ibuprofen 600 Mg Tablet) 600 mg PO Q6H PRN PRN Reason: moderate to severe pain Last Admin: 08/29/23 08:47 Dose: 600 mg Lorazepam (Lorazepam 0.5 Mg Tablet) 0.5 mg PO BID [facility] Last Admin: 08/29/23 08:49 Dose: Not Given Magnesium Hydroxide (Milk Of Magnesia 30 Ml Oral.Susp) 30 ml PO DAILY PRN PRN Reason: Constipation Metformin HCl (Metformin Hcl 500 Mg Tablet) 500 mg PO BID [facility] Last Admin: 08/29/23 08:49 Dose: Not Given Metronidazole (Metronidazole 0.75 % Gel 45 Gm Tube) 1 appl TOPICAL DAILY [facility] Last Admin: 08/29/23 08:49 Dose: Not Given Multivitamins/Vitamin C (Multivitamin Tablet) 1 tab PO DAILY [facility] Last Admin: 08/29/23 08:49 Dose: Not Given Nicotine Polacrilex (Nicotine Polacrilex Lozenge 2 Mg Lozenge) 2 mg BUCCAL Q2H PRN PRN Reason: Nicotine Cravings Olanzapine (Olanzapine Odt 10 Mg Tab.Rapdis) 10 mg TRANSLINGU DAILY PRN PRN Reason: Psychosis Last Admin: 08/04/23 17:34 Dose: 10 mg Olanzapine (Olanzapine Odt 10 Mg Tab.Rapdis) 10 mg TRANSLINGU BID [facility] Last Admin: 08/29/23 08:47 Dose: 10 mg Olanzapine (Olanzapine 10 Mg Vial) 10 mg IM BID PRN PRN Reason: if refuses PO Zydis Last Admin: 08/13/23 09:17 Dose: 10 mg Paliperidone Palmitate (Paliperidone Palmitate 234 Mg/1.5 Ml Syringe) 234 mg IM Q30D [facility] Last Admin: 08/21/23 12:39 Dose: 234 mg Trazodone HCl (Trazodone Hcl 50 Mg Tablet) 50 mg PO BEDTIME MRX1 PRN PRN Reason: Insomnia Vitamin D (Cholecalciferol (Vitamin D3) 10 Mcg Tablet) 10 mcg PO DAILY [facility] Last Admin: 08/29/23 08:49 Dose: Not Given Allergies Allergies Allergy/AdvReac Type Severity Reaction Status Date / Time acetaminophen [From TYLENOL] Allergy Intermediate HIVES Verified 08/28/22 09:48 meperidine [From Demerol] Allergy Unknown Verified 08/28/22 09:48 Assessment & Plan Assessment & Plan (1) Schizoaffective disorder: Qualifiers: Schizoaffective disorder type: bipolar Qualified Code(s): F25.0 - Schizoaffective disorder, bipolar type Status: Acute Code(s): F25.9 - Schizoaffective disorder, unspecified Assessment and Plan: Presents with decompensation of schizoaffective disorder, while in group living environment. Not adherence appears to be a factor. Patient not engaging with interview, evaluation or adherent with medications ie declining same. Unable to care for self. Being held on a Section 12 that will on 07/02/23. In the meantime will try and establish report and encourage medication adherence. Plan 06/29: encourage med adherence. 07/01/23: Ensure tid Will file Section VII on 07/02/23. 07/02/23: HCP activated today. Martine Elder is willing to serve in this role. [phone]. 07/03/23: Encourage treatment compliance 07/04/23 Encourage treatment compliance, begin process of validating HCP with the courts in order to provide pt with psychopharmacology options. 07/05/23 Encourage treatment. 07/07 remains disorganized in speech and behavior; refusing meds, paranoid -continue process of affirming HCP 07/08- Continue current plan. 07/09 continue current treatment plan 07/11/23 continue current treatment plan 07/12: Continue current regimen and plans 07/13: Continue current regimen and plans 07/14: Continue current plans and regimen 07/15/23: Continue current tx. Initiate regime 07/16. 07/17/23: Continue to encourage treatment. 07/18/23: Add prn Zyprexa IM if she refuses HS dosing 07/19: Continue current management and treatment plan. 07/20: Continue current management and treatment plan. 07/22: Continue tx. 07/23: Continue tx 07/24: Encourage milieu participation 07/26/23 continues too labile to interact with others- 07/27/23 - CTP encourage treatment 07/27/22 Continue tx plan; encourge meds as approved by HCP and court 07/29/23 schedule olanzepine discontinued after on hold for several days; awaiting invega sustenna to alleviate some of the psychosis in hopes patient more engageable and able to participate in her treatment; PO meds still ordered and should be offered with statement that they are court ordered and approved by HCP. 07/30/23 pt showing slight improvement- continue treatment plan 07/31/23 continue tx plan 08/01/23 continue tx plan 08/01 -Intermittently angry and irritable. Said hello to junior technical writer but then when junior technical writer asked how she was doing said none of your business. -Made swiping motion as if to scratch towards several staff, saying it was a curse -Yelled at peer today due to disorganized thought that person should not be in group room; yell that another peer who was going into the community refrigerator since patient thinks that the refrigerator is her property; able to be redirected 08/02 screamed at junior technical writer and refused to enage. 08/03 staff agree Patient seems to be increasingly disorganized, walking briskly down the calle and yelling at peers, staff, making angry accusatory remarks and frightening and provoking some patients, causing some patients to become angry response. Will not engage with junior technical writer. -patient on Invega Sustenna however behaviors are problematic, upsetting and sometimes scary to both peers and staff. Patient psychotic illness has gone untreated for quite some time and it seems likely she will need p.o. to overlap long-acting medication. Station Examiner reached out to patient's healthcare proxy Brit Elder and left message to discuss treatment 08/06/23- Continue tx. Pt today able to reach out and initiate discussion. Benztropine 1 mg tid prn EPS 08/07/23- Continue tx. 08/08/23- Continue tx. 08/09/2023: Continue current regimen and plans. 08/10/2023: Continue current regimen and plans 08/12/23: Diagnostics 08/13/23. 08/13/23: Continue tx. 08/14/23: Continue tx. 08/15/23: Continue tx. 08/15: continue current management and treatment plan. 08/16: continue current management and treatment plan. 08/17: Continue tx. 08/18: Continue tx. 08/21/23: Continue tx. 08/22/23: Continue tx. 08/23/23 improving adls and med compliance- but picks and chooses who she will interact with 08/24/23- CTP 08/25/23 CTP 08/26/23- Continue tx- attempt diagnostics again this week. 08/28/23- Continue tx. 08/29/23- Continue to attempt to get pt involved in discharge planning and daily routine expectations. Informed Consent: does not understand Reason for continued inpatient stay Substantial Risk for: rapid decompensation Time Spent With Patient Time: Total time managing care of this patient today ____ minutes.
[2023-08-30] MEDS: Ibuprofen 600 MG TABLET PO ×3 (06:52→20:01)
[2023-08-30 08:14] VITALS: RESP 18
[2023-08-30] MEDS: OLANZapine ODT 10 MG TAB.RAPDIS TRANSLINGU ×2 (08:28→20:00)
--- NOTE | 2023-08-30 12:46 | HO.PSYCHPN ---
Subjective Subjective Date of Service: 08/30/23 Reason For Visit: Schizoaffective disorder Subjective Notes: Conditional Voluntary Healthcare Proxy: Yes Guardianship: No Medical Problems Affecting Mental Status: No Interim History: Labile, mild reasonable at times, confrontive, caustic, acusatory at times. Has male names for many. Delusional belief that she owns her care home house, [facility] Approachable at times, not at other times Can be difficult to redirect Medication Compliance: Yes Side effects from medications: No Attending Groups: Intermittent Review of Systems Acute medical concerns: No Medical Review of Systems: unchanged Review of Systems Review of Systems Yes Unobtainable due to mental status Mental Status Exam Mental Status Exam Patient Appearance: Disheveled Patient Orientation: Person and Place Level of Consciousness: Alert Patient Behavior: Talkative Mood Description: Labile Affect Description: Labile Patient Cognition Impaired: Yes Ability to Follow Directions: Good Speech Pattern: Spontaneous Speech Memory Description: Remote Impaired Hallucinations: None Delusions: Not Present Thought Process: Distracted Thought Content: positive for Flight of Ideas and positive for Circumstantial Depressive Symptoms: Increased Irritability Abnormal Motor Activity Signs and Symptoms: Agitation Judgement: Poor Diagnostics Vital Signs (24Hr): Vital Signs - 24 hr 08/30/23 08:14 Respiratory Rate 18 BMI result Body Mass Index 34.1 Labs 06/25/23 17:59 06/25/23 17:59 Medications Medications Current Medications Al Hydroxide/Mg Hydroxide (Magnesium Hydrox/Alum Hydrox 30 Ml Oral.Susp) 30 ml PO Q6H PRN PRN Reason: Heartburn/Nausea Albuterol Sulfate (Albuterol Sulfate 90 Mcg 8 Gm Inhaler) 2 puff INHALE Q4H PRN PRN Reason: Wheezing Benztropine Mesylate (Benztropine Mesylate 1 Mg Tablet) 1 mg PO TID PRN PRN Reason: Extrapyramidal Effects Duloxetine HCl (Duloxetine Hcl 20 Mg Capsule.Dr) 40 mg PO DAILY [facility] Last Admin: 08/30/23 08:41 Dose: Not Given Hydroxyzine HCl (Hydroxyzine Hcl 25 Mg Tablet) 25 mg PO Q6H PRN PRN Reason: Anxiety Ibuprofen (Ibuprofen 600 Mg Tablet) 600 mg PO Q6H PRN PRN Reason: moderate to severe pain Last Admin: 08/30/23 06:52 Dose: 600 mg Lorazepam (Lorazepam 0.5 Mg Tablet) 0.5 mg PO BID [facility] Last Admin: 08/30/23 08:41 Dose: Not Given Magnesium Hydroxide (Milk Of Magnesia 30 Ml Oral.Susp) 30 ml PO DAILY PRN PRN Reason: Constipation Metformin HCl (Metformin Hcl 500 Mg Tablet) 500 mg PO BID [facility] Last Admin: 08/30/23 08:41 Dose: Not Given Metronidazole (Metronidazole 0.75 % Gel 45 Gm Tube) 1 appl TOPICAL DAILY [facility] Last Admin: 08/30/23 08:41 Dose: Not Given Multivitamins/Vitamin C (Multivitamin Tablet) 1 tab PO DAILY [facility] Last Admin: 08/30/23 08:41 Dose: Not Given Nicotine Polacrilex (Nicotine Polacrilex Lozenge 2 Mg Lozenge) 2 mg BUCCAL Q2H PRN PRN Reason: Nicotine Cravings Olanzapine (Olanzapine Odt 10 Mg Tab.Rapdis) 10 mg TRANSLINGU DAILY PRN PRN Reason: Psychosis Last Admin: 08/04/23 17:34 Dose: 10 mg Olanzapine (Olanzapine Odt 10 Mg Tab.Rapdis) 10 mg TRANSLINGU BID [facility] Last Admin: 08/30/23 08:28 Dose: 10 mg Olanzapine (Olanzapine 10 Mg Vial) 10 mg IM BID PRN PRN Reason: if refuses PO Zydis Last Admin: 08/13/23 09:17 Dose: 10 mg Paliperidone Palmitate (Paliperidone Palmitate 234 Mg/1.5 Ml Syringe) 234 mg IM Q30D [facility] Last Admin: 08/21/23 12:39 Dose: 234 mg Trazodone HCl (Trazodone Hcl 50 Mg Tablet) 50 mg PO BEDTIME MRX1 PRN PRN Reason: Insomnia Vitamin D (Cholecalciferol (Vitamin D3) 10 Mcg Tablet) 10 mcg PO DAILY [facility] Last Admin: 08/30/23 08:40 Dose: Not Given Allergies Allergies Allergy/AdvReac Type Severity Reaction Status Date / Time acetaminophen [From TYLENOL] Allergy Intermediate HIVES Verified 08/28/22 09:48 meperidine [From Demerol] Allergy Unknown Verified 08/28/22 09:48 Assessment & Plan Assessment & Plan (1) Schizoaffective disorder: Qualifiers: Schizoaffective disorder type: bipolar Qualified Code(s): F25.0 - Schizoaffective disorder, bipolar type Status: Acute Code(s): F25.9 - Schizoaffective disorder, unspecified Assessment and Plan: Presents with decompensation of schizoaffective disorder, while in group living environment. Not adherence appears to be a factor. Patient not engaging with interview, evaluation or adherent with medications ie declining same. Unable to care for self. Being held on a Section 12 that will on 07/02/23. In the meantime will try and establish report and encourage medication adherence. Plan 06/29: encourage med adherence. 07/01/23: Ensure tid Will file Section VII on 07/02/23. 07/02/23: HCP activated today. Martine Elder is willing to serve in this role. [phone]. 07/03/23: Encourage treatment compliance 07/04/23 Encourage treatment compliance, begin process of validating HCP with the courts in order to provide pt with psychopharmacology options. 07/05/23 Encourage treatment. 07/07 remains disorganized in speech and behavior; refusing meds, paranoid -continue process of affirming HCP 07/08- Continue current plan. 07/09 continue current treatment plan 07/11/23 continue current treatment plan 07/12: Continue current regimen and plans 07/13: Continue current regimen and plans 07/14: Continue current plans and regimen 07/15/23: Continue current tx. Initiate regime 07/16. 07/17/23: Continue to encourage treatment. 07/18/23: Add prn Zyprexa IM if she refuses HS dosing 07/19: Continue current management and treatment plan. 07/20: Continue current management and treatment plan. 07/22: Continue tx. 07/23: Continue tx 07/24: Encourage milieu participation 07/26/23 continues too labile to interact with others- 07/27/23 - CTP encourage treatment 07/27/22 Continue tx plan; encourge meds as approved by HCP and court 07/29/23 schedule olanzepine discontinued after on hold for several days; awaiting invega sustenna to alleviate some of the psychosis in hopes patient more engageable and able to participate in her treatment; PO meds still ordered and should be offered with statement that they are court ordered and approved by HCP. 07/30/23 pt showing slight improvement- continue treatment plan 07/31/23 continue tx plan 08/01/23 continue tx plan 3/9 -Intermittently angry and irritable. Said hello to typewriter assembly and parts inspector but then when typewriter assembly and parts inspector asked how she was doing said none of your business. -Made swiping motion as if to scratch towards several staff, saying it was a curse -Yelled at peer today due to disorganized thought that person should not be in group room; yell that another peer who was going into the community refrigerator since patient thinks that the refrigerator is her property; able to be redirected 08/02 screamed at typewriter assembly and parts inspector and refused to enage. 08/03 staff agree Patient seems to be increasingly disorganized, walking briskly down the calle and yelling at peers, staff, making angry accusatory remarks and frightening and provoking some patients, causing some patients to become angry response. Will not engage with typewriter assembly and parts inspector. -patient on Invega Sustenna however behaviors are problematic, upsetting and sometimes scary to both peers and staff. Patient psychotic illness has gone untreated for quite some time and it seems likely she will need p.o. to overlap long-acting medication. Console Operator reached out to patient's healthcare proxy Brit Elder and left message to discuss treatment 08/06/23- Continue tx. Pt today able to reach out and initiate discussion. Benztropine 1 mg tid prn EPS 08/07/23- Continue tx. 08/08/23- Continue tx. 08/09/2023: Continue current regimen and plans. 08/10/2023: Continue current regimen and plans 08/12/23: Diagnostics 08/13/23. 08/13/23: Continue tx. 08/14/23: Continue tx. 08/15/23: Continue tx. 08/15: continue current management and treatment plan. 08/16: continue current management and treatment plan. 08/17: Continue tx. 08/18: Continue tx. 08/21/23: Continue tx. 08/22/23: Continue tx. 08/23/23 improving adls and med compliance- but picks and chooses who she will interact with 08/24/23- CTP 08/25/23 CTP 08/26/23- Continue tx- attempt diagnostics again this week. 08/28/23- Continue tx. 08/29/23- Continue to attempt to get pt involved in discharge planning and daily routine expectations. 08/30/23- Continue tx Informed Consent: does not understand Reason for continued inpatient stay Substantial Risk for: rapid decompensation Time Spent With Patient Time: Total time managing care of this patient today ____ minutes.
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
[2023-08-31 08:00] VITALS: BP 138/63; PULSE 81; RESP 18; TEMP 36.4; O2SAT 99
[2023-08-31] MEDS: OLANZapine ODT 10 MG TAB.RAPDIS TRANSLINGU ×2 (08:10→21:19)
[2023-08-31] MEDS: Ibuprofen 600 MG TABLET PO ×2 (08:10→17:00)
[2023-09-01] MEDS: Ibuprofen 600 MG TABLET PO ×2 (08:08→15:23)
[2023-09-01] MEDS: OLANZapine ODT 10 MG TAB.RAPDIS TRANSLINGU (08:09)
--- NOTE | 2023-09-01 10:56 | PC.NURSE ---
pt reports generalized pain rated 8/10. Pt refuses any otehr medication other than Motrin.
--- NOTE | 2023-09-01 14:28 | HO.PSYCHPN ---
Subjective Subjective Date of Service: 09/01/23 Reason For Visit: Schizoaffective disorder Subjective Notes: Conditional Voluntary Healthcare Proxy: Yes Guardianship: No Medical Problems Affecting Mental Status: No Interim History: Labile. Confrontive. Believes she owns [facility], her fpc, the hospital. Reality testing attempted, pt unable to tolerate this with poor spatial boundaries, intense eye contact, loud tone of voice, anger, denial of this reality. As compared to this a.m where she was calm, pleasant, conversational. Medication Compliance: Intermittent Side effects from medications: No Attending Groups: No Review of Systems Acute medical concerns: No Medical Review of Systems: unchanged Review of Systems Review of Systems Yes all other systems are reviewed and are negative Mental Status Exam Mental Status Exam Patient Appearance: Disheveled Patient Orientation: Person and Place Level of Consciousness: Alert Patient Behavior: Talkative Mood Description: Labile Affect Description: Labile Patient Cognition Impaired: Yes Ability to Follow Directions: Good Speech Pattern: Spontaneous Speech Memory Description: Remote Impaired Hallucinations: None Delusions: Not Present Thought Process: Distracted Thought Content: positive for Flight of Ideas and positive for Circumstantial Depressive Symptoms: Increased Irritability Abnormal Motor Activity Signs and Symptoms: Agitation Judgement: Poor Diagnostics Vital Signs (24Hr): BMI result Body Mass Index 34.1 Labs 06/25/23 17:59 06/25/23 17:59 Medications Medications Current Medications Al Hydroxide/Mg Hydroxide (Magnesium Hydrox/Alum Hydrox 30 Ml Oral.Susp) 30 ml PO Q6H PRN PRN Reason: Heartburn/Nausea Albuterol Sulfate (Albuterol Sulfate 90 Mcg 8 Gm Inhaler) 2 puff INHALE Q4H PRN PRN Reason: Wheezing Benztropine Mesylate (Benztropine Mesylate 1 Mg Tablet) 1 mg PO TID PRN PRN Reason: Extrapyramidal Effects Divalproex Sodium (Divalproex Sodium Er 500 Mg Tab.Er.24h) 500 mg PO BEDTIME [facility] Duloxetine HCl (Duloxetine Hcl 20 Mg Capsule.Dr) 40 mg PO DAILY [facility] Last Admin: 09/01/23 08:10 Dose: Not Given Hydroxyzine HCl (Hydroxyzine Hcl 25 Mg Tablet) 25 mg PO Q6H PRN PRN Reason: Anxiety Ibuprofen (Ibuprofen 600 Mg Tablet) 600 mg PO Q6H PRN PRN Reason: moderate to severe pain Last Admin: 09/01/23 08:08 Dose: 600 mg Lorazepam (Lorazepam 0.5 Mg Tablet) 0.5 mg PO BID [facility] Last Admin: 09/01/23 08:10 Dose: Not Given Magnesium Hydroxide (Milk Of Magnesia 30 Ml Oral.Susp) 30 ml PO DAILY PRN PRN Reason: Constipation Metformin HCl (Metformin Hcl 500 Mg Tablet) 500 mg PO BID [facility] Last Admin: 09/01/23 08:10 Dose: Not Given Metronidazole (Metronidazole 0.75 % Gel 45 Gm Tube) 1 appl TOPICAL DAILY [facility] Last Admin: 09/01/23 08:10 Dose: Not Given Multivitamins/Vitamin C (Multivitamin Tablet) 1 tab PO DAILY [facility] Last Admin: 09/01/23 08:10 Dose: Not Given Nicotine Polacrilex (Nicotine Polacrilex Lozenge 2 Mg Lozenge) 2 mg BUCCAL Q2H PRN PRN Reason: Nicotine Cravings Olanzapine (Olanzapine Odt 10 Mg Tab.Rapdis) 10 mg TRANSLINGU DAILY PRN PRN Reason: Psychosis Last Admin: 08/04/23 17:34 Dose: 10 mg Olanzapine (Olanzapine 10 Mg Vial) 10 mg IM BID PRN PRN Reason: if refuses PO Zydis Last Admin: 08/13/23 09:17 Dose: 10 mg Olanzapine (Olanzapine Odt 10 Mg Tab.Rapdis) 20 mg TRANSLINGU BID [facility] Paliperidone Palmitate (Paliperidone Palmitate 234 Mg/1.5 Ml Syringe) 234 mg IM Q30D [facility] Last Admin: 08/21/23 12:39 Dose: 234 mg Trazodone HCl (Trazodone Hcl 50 Mg Tablet) 50 mg PO BEDTIME MRX1 PRN PRN Reason: Insomnia Vitamin D (Cholecalciferol (Vitamin D3) 10 Mcg Tablet) 10 mcg PO DAILY [facility] Last Admin: 09/01/23 08:10 Dose: Not Given Allergies Allergies Allergy/AdvReac Type Severity Reaction Status Date / Time acetaminophen [From TYLENOL] Allergy Intermediate HIVES Verified 08/28/22 09:48 meperidine [From Demerol] Allergy Unknown Verified 08/28/22 09:48 Assessment & Plan Assessment & Plan (1) Schizoaffective disorder: Qualifiers: Schizoaffective disorder type: bipolar Qualified Code(s): F25.0 - Schizoaffective disorder, bipolar type Status: Acute Code(s): F25.9 - Schizoaffective disorder, unspecified Assessment and Plan: Presents with decompensation of schizoaffective disorder, while in group living environment. Not adherence appears to be a factor. Patient not engaging with interview, evaluation or adherent with medications ie declining same. Unable to care for self. Being held on a Section 12 that will on 07/02/23. In the meantime will try and establish report and encourage medication adherence. Plan 06/29: encourage med adherence. 07/01/23: Ensure tid Will file Section VII on 07/02/23. 07/02/23: HCP activated today. Martine Elder is willing to serve in this role. [phone]. 07/03/23: Encourage treatment compliance 07/04/23 Encourage treatment compliance, begin process of validating HCP with the courts in order to provide pt with psychopharmacology options. 07/05/23 Encourage treatment. 07/07 remains disorganized in speech and behavior; refusing meds, paranoid -continue process of affirming HCP 07/08- Continue current plan. 07/09 continue current treatment plan 07/11/23 continue current treatment plan 07/12: Continue current regimen and plans 07/13: Continue current regimen and plans 07/14: Continue current plans and regimen 07/15/23: Continue current tx. Initiate regime 07/16. 07/17/23: Continue to encourage treatment. 07/18/23: Add prn Zyprexa IM if she refuses HS dosing 07/19: Continue current management and treatment plan. 07/20: Continue current management and treatment plan. 07/22: Continue tx. 07/23: Continue tx 07/24: Encourage milieu participation 07/26/23 continues too labile to interact with others- 07/27/23 - CTP encourage treatment 07/27/22 Continue tx plan; encourge meds as approved by HCP and court 07/29/23 schedule olanzepine discontinued after on hold for several days; awaiting invega sustenna to alleviate some of the psychosis in hopes patient more engageable and able to participate in her treatment; PO meds still ordered and should be offered with statement that they are court ordered and approved by HCP. 07/30/23 pt showing slight improvement- continue treatment plan 07/31/23 continue tx plan 08/01/23 continue tx plan 08/01 -Intermittently angry and irritable. Said hello to abstract writer but then when abstract writer asked how she was doing said none of your business. -Made swiping motion as if to scratch towards several staff, saying it was a curse -Yelled at peer today due to disorganized thought that person should not be in group room; yell that another peer who was going into the community refrigerator since patient thinks that the refrigerator is her property; able to be redirected 08/02 screamed at abstract writer and refused to enage. 08/03 staff agree Patient seems to be increasingly disorganized, walking briskly down the calle and yelling at peers, staff, making angry accusatory remarks and frightening and provoking some patients, causing some patients to become angry response. Will not engage with abstract writer. -patient on Invega Sustenna however behaviors are problematic, upsetting and sometimes scary to both peers and staff. Patient psychotic illness has gone untreated for quite some time and it seems likely she will need p.o. to overlap long-acting medication. [employer] reached out to patient's healthcare proxy Brit Elder and left message to discuss treatment 08/06/23- Continue tx. Pt today able to reach out and initiate discussion. Benztropine 1 mg tid prn EPS 08/07/23- Continue tx. 08/08/23- Continue tx. 08/09/2023: Continue current regimen and plans. 08/10/2023: Continue current regimen and plans 08/12/23: Diagnostics 08/13/23. 08/13/23: Continue tx. 08/14/23: Continue tx. 08/15/23: Continue tx. 08/15: continue current management and treatment plan. 08/16: continue current management and treatment plan. 08/17: Continue tx. 08/18: Continue tx. 08/21/23: Continue tx. 08/22/23: Continue tx. 08/23/23 improving adls and med compliance- but picks and chooses who she will interact with 08/24/23- CTP 08/25/23 CTP 08/26/23- Continue tx- attempt diagnostics again this week. 08/28/23- Continue tx. 08/29/23- Continue to attempt to get pt involved in discharge planning and daily routine expectations. 08/31/23- Continue to attempt education regarding intrusive behaviors, reality testing 09/01/23- Depakote ER 500 mg HS Increase Olanzapine 20 mg bid Informed Consent: does not understand Reason for continued inpatient stay Substantial Risk for: rapid decompensation Time Spent With Patient Time: Total time managing care of this patient today ____ minutes.
[2023-09-01] MEDS: OLANZapine ODT 10 MG TAB.RAPDIS 20 MG TRANSLINGU (20:16)
[2023-09-02 08:00] VITALS: RESP 18
[2023-09-02] MEDS: Ibuprofen 600 MG TABLET PO ×2 (09:24→20:07)
[2023-09-02] MEDS: OLANZapine ODT 10 MG TAB.RAPDIS 20 MG TRANSLINGU ×2 (09:24→20:08)
--- NOTE | 2023-09-02 18:13 | P.PNPSI_ITS ---
Subjective Subjective Date of Service: 09/02/23 Reason For Visit: Schizoaffective disorder Subjective Notes: Conditional Voluntary Healthcare Proxy: Yes Guardianship: No Medical Problems Affecting Mental Status: No Interim History: Angry, labile, confrontive with tw today. Demanding to leave. Informs us she is being poisoned with medicine, owns the community, is an MD and other grandiose ideas. Medication Compliance: Intermittent Side effects from medications: No Attending Groups: No Review of Systems Acute medical concerns: No Medical Review of Systems: unchanged Review of Systems Review of Systems Yes all other systems are reviewed and are negative Mental Status Exam Mental Status Exam Patient Appearance: Disheveled Patient Orientation: Person and Place Level of Consciousness: Alert Patient Behavior: Talkative Mood Description: Labile Affect Description: Labile Patient Cognition Impaired: Yes Ability to Follow Directions: Good Speech Pattern: Spontaneous Speech Memory Description: Remote Impaired Hallucinations: None Delusions: Not Present Thought Process: Distracted Thought Content: positive for Flight of Ideas and positive for Circumstantial Depressive Symptoms: Increased Irritability Abnormal Motor Activity Signs and Symptoms: Agitation Judgement: Poor Diagnostics Vital Signs (24Hr): Vital Signs - 24 hr 09/02/23 08:00 Respiratory Rate 18 BMI result Body Mass Index 34.1 Labs 06/25/23 17:59 06/25/23 17:59 Medications Medications Current Medications Al Hydroxide/Mg Hydroxide (Magnesium Hydrox/Alum Hydrox 30 Ml Oral.Susp) 30 ml PO Q6H PRN PRN Reason: Heartburn/Nausea Albuterol Sulfate (Albuterol Sulfate 90 Mcg 8 Gm Inhaler) 2 puff INHALE Q4H PRN PRN Reason: Wheezing Benztropine Mesylate (Benztropine Mesylate 1 Mg Tablet) 1 mg PO TID PRN PRN Reason: Extrapyramidal Effects Divalproex Sodium (Divalproex Sodium Er 500 Mg Tab.Er.24h) 500 mg PO BEDTIME [facility] Last Admin: 09/01/23 22:42 Dose: Not Given Duloxetine HCl (Duloxetine Hcl 20 Mg Capsule.Dr) 40 mg PO DAILY [facility] Last Admin: 09/02/23 09:33 Dose: Not Given Hydroxyzine HCl (Hydroxyzine Hcl 25 Mg Tablet) 25 mg PO Q6H PRN PRN Reason: Anxiety Ibuprofen (Ibuprofen 600 Mg Tablet) 600 mg PO Q6H PRN PRN Reason: moderate to severe pain Last Admin: 09/02/23 09:24 Dose: 600 mg Lorazepam (Lorazepam 0.5 Mg Tablet) 0.5 mg PO BID [facility] Last Admin: 09/02/23 09:33 Dose: Not Given Magnesium Hydroxide (Milk Of Magnesia 30 Ml Oral.Susp) 30 ml PO DAILY PRN PRN Reason: Constipation Metformin HCl (Metformin Hcl 500 Mg Tablet) 500 mg PO BID [facility] Last Admin: 09/02/23 09:33 Dose: Not Given Metronidazole (Metronidazole 0.75 % Gel 45 Gm Tube) 1 appl TOPICAL DAILY [facility] [place] Last Admin: 09/02/23 09:33 Dose: Not Given Multivitamins/Vitamin C (Multivitamin Tablet) 1 tab PO DAILY [facility] [place] Last Admin: 09/02/23 09:34 Dose: Not Given Nicotine Polacrilex (Nicotine Polacrilex Lozenge 2 Mg Lozenge) 2 mg BUCCAL Q2H PRN PRN Reason: Nicotine Cravings Olanzapine (Olanzapine Odt 10 Mg Tab.Rapdis) 10 mg TRANSLINGU DAILY PRN PRN Reason: Psychosis Last Admin: 08/04/23 17:34 Dose: 10 mg Olanzapine (Olanzapine 10 Mg Vial) 10 mg IM BID PRN PRN Reason: if refuses PO Zydis Last Admin: 08/13/23 09:17 Dose: 10 mg Olanzapine (Olanzapine Odt 10 Mg Tab.Rapdis) 20 mg TRANSLINGU BID [facility] Last Admin: 09/02/23 09:24 Dose: 20 mg Paliperidone Palmitate (Paliperidone Palmitate 234 Mg/1.5 Ml Syringe) 234 mg IM Q30D [facility] Last Admin: 08/21/23 12:39 Dose: 234 mg Trazodone HCl (Trazodone Hcl 50 Mg Tablet) 50 mg PO BEDTIME MRX1 PRN PRN Reason: Insomnia Vitamin D (Cholecalciferol (Vitamin D3) 10 Mcg Tablet) 10 mcg PO DAILY [facility] Last Admin: 09/02/23 09:33 Dose: Not Given Allergies Allergies Allergy/AdvReac Type Severity Reaction Status Date / Time acetaminophen [From TYLENOL] Allergy Intermediate HIVES Verified 08/28/22 09:48 meperidine [From Demerol] Allergy Unknown Verified 08/28/22 09:48 Assessment & Plan Assessment & Plan (1) Schizoaffective disorder: Qualifiers: Schizoaffective disorder type: bipolar Qualified Code(s): F25.0 - Schizoaffective disorder, bipolar type Status: Acute Code(s): F25.9 - Schizoaffective disorder, unspecified Assessment and Plan: Presents with decompensation of schizoaffective disorder, while in group living environment. Not adherence appears to be a factor. Patient not engaging with interview, evaluation or adherent with medications ie declining same. Unable to care for self. Being held on a Section 12 that will on 07/02/23. In the meantime will try and establish report and encourage medication adherence. Plan 06/29: encourage med adherence. 07/01/23: Ensure tid Will file Section VII on 07/02/23. 07/02/23: HCP activated today. Martine Elder is willing to serve in this role. [phone]. 07/03/23: Encourage treatment compliance 07/04/23 Encourage treatment compliance, begin process of validating HCP with the courts in order to provide pt with psychopharmacology options. 07/05/23 Encourage treatment. 07/07 remains disorganized in speech and behavior; refusing meds, paranoid -continue process of affirming HCP 07/08- Continue current plan. 07/09 continue current treatment plan 07/11/23 continue current treatment plan 07/12: Continue current regimen and plans 07/13: Continue current regimen and plans 07/14: Continue current plans and regimen 07/15/23: Continue current tx. Initiate regime 07/16. 07/17/23: Continue to encourage treatment. 07/18/23: Add prn Zyprexa IM if she refuses HS dosing 07/19: Continue current management and treatment plan. 07/20: Continue current management and treatment plan. 07/22: Continue tx. 07/23: Continue tx 07/24: Encourage milieu participation 07/26/23 continues too labile to interact with others- 07/27/23 - CTP encourage treatment 07/27/22 Continue tx plan; encourge meds as approved by HCP and court 07/29/23 schedule olanzepine discontinued after on hold for several days; awaiting invega sustenna to alleviate some of the psychosis in hopes patient more engageable and able to participate in her treatment; PO meds still ordered and should be offered with statement that they are court ordered and approved by HCP. 07/30/23 pt showing slight improvement- continue treatment plan 07/31/23 continue tx plan 08/01/23 continue tx plan 08/01 -Intermittently angry and irritable. Said hello to investigative writer but then when investigative writer asked how she was doing said none of your business. -Made swiping motion as if to scratch towards several staff, saying it was a curse -Yelled at peer today due to disorganized thought that person should not be in group room; yell that another peer who was going into the community refrigerator since patient thinks that the refrigerator is her property; able to be redirected 08/02 screamed at investigative writer and refused to enage. 08/03 staff agree Patient seems to be increasingly disorganized, walking briskly down the calle and yelling at peers, staff, making angry accusatory remarks and frightening and provoking some patients, causing some patients to become angry response. Will not engage with investigative writer. -patient on Invega Sustenna however behaviors are problematic, upsetting and sometimes scary to both peers and staff. Patient psychotic illness has gone untreated for quite some time and it seems likely she will need p.o. to overlap long-acting medication. [employer] reached out to patient's healthcare proxy Brit Elder and left message to discuss treatment 08/06/23- Continue tx. Pt today able to reach out and initiate discussion. Benztropine 1 mg tid prn EPS 08/07/23- Continue tx. 08/08/23- Continue tx. 08/09/2023: Continue current regimen and plans. 08/10/2023: Continue current regimen and plans 08/12/23: Diagnostics 08/13/23. 08/13/23: Continue tx. 08/14/23: Continue tx. 08/15/23: Continue tx. 08/15: continue current management and treatment plan. 08/16: continue current management and treatment plan. 08/17: Continue tx. 08/18: Continue tx. 08/21/23: Continue tx. 08/22/23: Continue tx. 08/23/23 improving adls and med compliance- but picks and chooses who she will interact with 08/24/23- CTP 08/25/23 CTP 08/26/23- Continue tx- attempt diagnostics again this week. 08/28/23- Continue tx. 08/29/23- Continue to attempt to get pt involved in discharge planning and daily routine expectations. 08/31/23- Continue to attempt education regarding intrusive behaviors, reality testing 09/01/23- Depakote ER 500 mg HS Increase Olanzapine 20 mg bid 09/02/23: Refusing Depakote Continue plan of care. Informed Consent: does not understand Reason for continued inpatient stay Substantial Risk for: rapid decompensation Time Spent With Patient Time: Total time managing care of this patient today ____ minutes.
[2023-09-03 06:00] VITALS: RESP 18
[2023-09-03] MEDS: OLANZapine ODT 10 MG TAB.RAPDIS 20 MG TRANSLINGU ×2 (09:02→19:39)
[2023-09-03] MEDS: Ibuprofen 600 MG TABLET PO ×2 (09:02→19:38)
--- NOTE | 2023-09-03 10:26 | HO.PSYCHPN ---
Subjective Subjective Date of Service: 09/03/23 Reason For Visit: Schizoaffective disorder Subjective Notes: Conditional Voluntary Healthcare Proxy: Yes Guardianship: No Medical Problems Affecting Mental Status: No Interim History: Continues with anger, agitation, confrontive regarding discharge, grandiose. Borderline aggressive today. Refusing of some of her medications Medication Compliance: Intermittent Side effects from medications: No Attending Groups: No Review of Systems Acute medical concerns: No Medical Review of Systems: unchanged Review of Systems Review of Systems Yes all other systems are reviewed and are negative Mental Status Exam Mental Status Exam Patient Appearance: Disheveled Patient Orientation: Person and Place Level of Consciousness: Alert Patient Behavior: Talkative Mood Description: Labile Affect Description: Labile Patient Cognition Impaired: Yes Ability to Follow Directions: Good Speech Pattern: Spontaneous Speech Memory Description: Remote Impaired Hallucinations: None Delusions: Not Present Thought Process: Distracted Thought Content: positive for Flight of Ideas and positive for Circumstantial Depressive Symptoms: Increased Irritability Abnormal Motor Activity Signs and Symptoms: Agitation Judgement: Poor Diagnostics Vital Signs (24Hr): Vital Signs - 24 hr 09/03/23 06:00 Respiratory Rate 18 BMI result Body Mass Index 34.1 Labs 06/25/23 17:59 06/25/23 17:59 Medications Medications Current Medications Al Hydroxide/Mg Hydroxide (Magnesium Hydrox/Alum Hydrox 30 Ml Oral.Susp) 30 ml PO Q6H PRN PRN Reason: Heartburn/Nausea Albuterol Sulfate (Albuterol Sulfate 90 Mcg 8 Gm Inhaler) 2 puff INHALE Q4H PRN PRN Reason: Wheezing Benztropine Mesylate (Benztropine Mesylate 1 Mg Tablet) 1 mg PO TID PRN PRN Reason: Extrapyramidal Effects Divalproex Sodium (Divalproex Sodium Er 500 Mg Tab.Er.24h) 500 mg PO BEDTIME [facility] Last Admin: 09/02/23 22:14 Dose: Not Given Duloxetine HCl (Duloxetine Hcl 20 Mg Capsule.Dr) 40 mg PO DAILY [facility] Last Admin: 09/03/23 09:05 Dose: Not Given Hydroxyzine HCl (Hydroxyzine Hcl 25 Mg Tablet) 25 mg PO Q6H PRN PRN Reason: Anxiety Ibuprofen (Ibuprofen 600 Mg Tablet) 600 mg PO Q6H PRN PRN Reason: moderate to severe pain Last Admin: 09/03/23 09:02 Dose: 600 mg Lorazepam (Lorazepam 0.5 Mg Tablet) 0.5 mg PO BID [facility] Last Admin: 09/03/23 09:05 Dose: Not Given Magnesium Hydroxide (Milk Of Magnesia 30 Ml Oral.Susp) 30 ml PO DAILY PRN PRN Reason: Constipation Metformin HCl (Metformin Hcl 500 Mg Tablet) 500 mg PO BID [facility] Last Admin: 09/03/23 09:05 Dose: Not Given Metronidazole (Metronidazole 0.75 % Gel 45 Gm Tube) 1 appl TOPICAL DAILY [facility] Last Admin: 09/03/23 09:05 Dose: Not Given Multivitamins/Vitamin C (Multivitamin Tablet) 1 tab PO DAILY [facility] Last Admin: 09/03/23 09:06 Dose: Not Given Nicotine Polacrilex (Nicotine Polacrilex Lozenge 2 Mg Lozenge) 2 mg BUCCAL Q2H PRN PRN Reason: Nicotine Cravings Olanzapine (Olanzapine Odt 10 Mg Tab.Rapdis) 10 mg TRANSLINGU DAILY PRN PRN Reason: Psychosis Last Admin: 08/04/23 17:34 Dose: 10 mg Olanzapine (Olanzapine 10 Mg Vial) 10 mg IM BID PRN PRN Reason: if refuses PO Zydis Last Admin: 08/13/23 09:17 Dose: 10 mg Olanzapine (Olanzapine Odt 10 Mg Tab.Rapdis) 20 mg TRANSLINGU BID [facility] Last Admin: 09/03/23 09:02 Dose: 20 mg Paliperidone Palmitate (Paliperidone Palmitate 234 Mg/1.5 Ml Syringe) 234 mg IM Q30D [facility] Last Admin: 08/21/23 12:39 Dose: 234 mg Trazodone HCl (Trazodone Hcl 50 Mg Tablet) 50 mg PO BEDTIME MRX1 PRN PRN Reason: Insomnia Vitamin D (Cholecalciferol (Vitamin D3) 10 Mcg Tablet) 10 mcg PO DAILY [facility] Last Admin: 09/03/23 09:05 Dose: Not Given Allergies Allergies Allergy/AdvReac Type Severity Reaction Status Date / Time acetaminophen [From TYLENOL] Allergy Intermediate HIVES Verified 08/28/22 09:48 meperidine [From Demerol] Allergy Unknown Verified 08/28/22 09:48 Assessment & Plan Assessment & Plan (1) Schizoaffective disorder: Qualifiers: Schizoaffective disorder type: bipolar Qualified Code(s): F25.0 - Schizoaffective disorder, bipolar type Status: Acute Code(s): F25.9 - Schizoaffective disorder, unspecified Assessment and Plan: Presents with decompensation of schizoaffective disorder, while in group living environment. Not adherence appears to be a factor. Patient not engaging with interview, evaluation or adherent with medications ie declining same. Unable to care for self. Being held on a Section 12 that will on 07/02/23. In the meantime will try and establish report and encourage medication adherence. Plan 06/29: encourage med adherence. 07/01/23: Ensure tid Will file Section VII on 07/02/23. 07/02/23: HCP activated today. Martine Elder is willing to serve in this role. [phone]. 07/03/23: Encourage treatment compliance 07/04/23 Encourage treatment compliance, begin process of validating HCP with the courts in order to provide pt with psychopharmacology options. 07/05/23 Encourage treatment. 07/07 remains disorganized in speech and behavior; refusing meds, paranoid -continue process of affirming HCP 07/08- Continue current plan. 07/09 continue current treatment plan 07/11/23 continue current treatment plan 07/12: Continue current regimen and plans 07/13: Continue current regimen and plans 07/14: Continue current plans and regimen 07/15/23: Continue current tx. Initiate regime 07/16. 07/17/23: Continue to encourage treatment. 07/18/23: Add prn Zyprexa IM if she refuses HS dosing 07/19: Continue current management and treatment plan. 07/20: Continue current management and treatment plan. 07/22: Continue tx. 07/23: Continue tx 07/24: Encourage milieu participation 07/26/23 continues too labile to interact with others- 07/27/23 - CTP encourage treatment 07/27/22 Continue tx plan; encourge meds as approved by HCP and court 07/29/23 schedule olanzepine discontinued after on hold for several days; awaiting invega sustenna to alleviate some of the psychosis in hopes patient more engageable and able to participate in her treatment; PO meds still ordered and should be offered with statement that they are court ordered and approved by HCP. 07/30/23 pt showing slight improvement- continue treatment plan 07/31/23 continue tx plan 08/01/23 continue tx plan 08/01 -Intermittently angry and irritable. Said hello to parts data writer but then when parts data writer asked how she was doing said none of your business. -Made swiping motion as if to scratch towards several staff, saying it was a curse -Yelled at peer today due to disorganized thought that person should not be in group room; yell that another peer who was going into the community refrigerator since patient thinks that the refrigerator is her property; able to be redirected 08/02 screamed at parts data writer and refused to enage. 08/03 staff agree Patient seems to be increasingly disorganized, walking briskly down the calle and yelling at peers, staff, making angry accusatory remarks and frightening and provoking some patients, causing some patients to become angry response. Will not engage with parts data writer. -patient on Invega Sustenna however behaviors are problematic, upsetting and sometimes scary to both peers and staff. Patient psychotic illness has gone untreated for quite some time and it seems likely she will need p.o. to overlap long-acting medication. System Support Developer reached out to patient's healthcare proxy Brit Elder and left message to discuss treatment 08/06/23- Continue tx. Pt today able to reach out and initiate discussion. Benztropine 1 mg tid prn EPS 08/07/23- Continue tx. 08/08/23- Continue tx. 08/09/2023: Continue current regimen and plans. 08/10/2023: Continue current regimen and plans 08/12/23: Diagnostics 08/13/23. 08/13/23: Continue tx. 08/14/23: Continue tx. 08/15/23: Continue tx. 08/15: continue current management and treatment plan. 08/16: continue current management and treatment plan. 08/17: Continue tx. 08/18: Continue tx. 08/21/23: Continue tx. 08/22/23: Continue tx. 08/23/23 improving adls and med compliance- but picks and chooses who she will interact with 08/24/23- CTP 08/25/23 CTP 08/26/23- Continue tx- attempt diagnostics again this week. 08/28/23- Continue tx. 08/29/23- Continue to attempt to get pt involved in discharge planning and daily routine expectations. 08/31/23- Continue to attempt education regarding intrusive behaviors, reality testing 09/01/23- Depakote ER 500 mg HS Increase Olanzapine 20 mg bid 09/03/23: CBCD, CMP, A1c, Lipids, TSH Reason for continued inpatient stay Substantial Risk for: rapid decompensation Time Spent With Patient Time: Total time managing care of this patient today ____ minutes.
[2023-09-03 18:15] VITALS: BP 135/68; PULSE 118; RESP 16; TEMP 36.7; O2SAT 94
[2023-09-04] MEDS: OLANZapine ODT 10 MG TAB.RAPDIS 20 MG TRANSLINGU ×2 (10:07→20:06)
[2023-09-04] MEDS: Ibuprofen 600 MG TABLET PO ×2 (10:07→17:41)
[2023-09-04] MEDS: DULoxetine HCl 20 MG CAPSULE.DR 40 MG PO (10:08)
[2023-09-04] MEDS: Cholecalciferol (Vitamin D3) 10 MCG TABLET PO (10:08)
[2023-09-04] MEDS: metFORMIN HCl 500 MG TABLET PO (10:08)
[2023-09-04] MEDS: Multivitamin TABLET 1 TAB PO (10:08)
[2023-09-04 18:00] VITALS: RESP 18
--- NOTE | 2023-09-04 18:46 | P.PNPSI_ITS ---
Subjective Subjective Date of Service: 09/04/23 Reason For Visit: Schizoaffective disorder Interim History: met with pt; discussed in team for first time, pt pleasant, cooperative with typewriter ribbon winder. c/o of some body aches but says ibuprofin helping. Has been asking nursing for discharge and responding angrily, saying she owns the hospital when request (for dc) not granted. Mental Status Exam Mental Status Exam Patient Appearance: Disheveled Patient Orientation: Person and Place Level of Consciousness: Alert Patient Behavior: Talkative Mood Description: Labile Affect Description: Labile Patient Cognition Impaired: Yes Ability to Follow Directions: Good Speech Pattern: Spontaneous Speech Memory Description: Remote Impaired Hallucinations: None Delusions: Not Present Thought Process: Distracted Thought Content: positive for Flight of Ideas and positive for Circumstantial Depressive Symptoms: Increased Irritability Abnormal Motor Activity Signs and Symptoms: Agitation Judgement: Poor Diagnostics Vital Signs (24Hr): BMI result Body Mass Index 34.1 Labs 06/25/23 17:59 06/25/23 17:59 Medications Medications Current Medications Al Hydroxide/Mg Hydroxide (Magnesium Hydrox/Alum Hydrox 30 Ml Oral.Susp) 30 ml PO Q6H PRN PRN Reason: Heartburn/Nausea Albuterol Sulfate (Albuterol Sulfate 90 Mcg 8 Gm Inhaler) 2 puff INHALE Q4H PRN PRN Reason: Wheezing Benztropine Mesylate (Benztropine Mesylate 1 Mg Tablet) 1 mg PO TID PRN PRN Reason: Extrapyramidal Effects Divalproex Sodium (Divalproex Sodium Er 500 Mg Tab.Er.24h) 500 mg PO BEDTIME [facility] Last Admin: 09/04/23 01:09 Dose: Not Given Duloxetine HCl (Duloxetine Hcl 20 Mg Capsule.Dr) 40 mg PO DAILY [facility] Last Admin: 09/04/23 10:08 Dose: 40 mg Hydroxyzine HCl (Hydroxyzine Hcl 25 Mg Tablet) 25 mg PO Q6H PRN PRN Reason: Anxiety Ibuprofen (Ibuprofen 600 Mg Tablet) 600 mg PO Q6H PRN PRN Reason: moderate to severe pain Last Admin: 09/04/23 17:41 Dose: 600 mg Lorazepam (Lorazepam 0.5 Mg Tablet) 0.5 mg PO BID [facility] Last Admin: 09/04/23 10:08 Dose: 0.5 mg Magnesium Hydroxide (Milk Of Magnesia 30 Ml Oral.Susp) 30 ml PO DAILY PRN PRN Reason: Constipation Metformin HCl (Metformin Hcl 500 Mg Tablet) 500 mg PO BID [facility] Last Admin: 09/04/23 10:08 Dose: 500 mg Metronidazole (Metronidazole 0.75 % Gel 45 Gm Tube) 1 appl TOPICAL DAILY [facility] Last Admin: 09/04/23 10:08 Dose: Not Given Multivitamins/Vitamin C (Multivitamin Tablet) 1 tab PO DAILY [facility] Last Admin: 09/04/23 10:08 Dose: 1 tab Nicotine Polacrilex (Nicotine Polacrilex Lozenge 2 Mg Lozenge) 2 mg BUCCAL Q2H PRN PRN Reason: Nicotine Cravings Olanzapine (Olanzapine Odt 10 Mg Tab.Rapdis) 10 mg TRANSLINGU DAILY PRN PRN Reason: Psychosis Last Admin: 08/04/23 17:34 Dose: 10 mg Olanzapine (Olanzapine 10 Mg Vial) 10 mg IM BID PRN PRN Reason: if refuses PO Zydis Last Admin: 08/13/23 09:17 Dose: 10 mg Olanzapine (Olanzapine Odt 10 Mg Tab.Rapdis) 20 mg TRANSLINGU BID [facility] Last Admin: 09/04/23 10:07 Dose: 20 mg Paliperidone Palmitate (Paliperidone Palmitate 234 Mg/1.5 Ml Syringe) 234 mg IM Q30D [facility] Last Admin: 08/21/23 12:39 Dose: 234 mg Trazodone HCl (Trazodone Hcl 50 Mg Tablet) 50 mg PO BEDTIME MRX1 PRN PRN Reason: Insomnia Vitamin D (Cholecalciferol (Vitamin D3) 10 Mcg Tablet) 10 mcg PO DAILY [facility] Last Admin: 09/04/23 10:08 Dose: 10 mcg Allergies Allergies Allergy/AdvReac Type Severity Reaction Status Date / Time acetaminophen [From TYLENOL] Allergy Intermediate HIVES Verified 08/28/22 09:48 meperidine [From Demerol] Allergy Unknown Verified 08/28/22 09:48 Assessment & Plan Assessment & Plan (1) Schizoaffective disorder: Qualifiers: Schizoaffective disorder type: bipolar Qualified Code(s): F25.0 - Schizoaffective disorder, bipolar type Status: Acute Code(s): F25.9 - Schizoaffective disorder, unspecified Assessment and Plan: Presents with decompensation of schizoaffective disorder, while in group living environment. Not adherence appears to be a factor. Patient not engaging with interview, evaluation or adherent with medications ie declining same. Unable to care for self. Being held on a Section 12 that will on 07/02/23. In the meantime will try and establish report and encourage medication adherence. Plan 06/29: encourage med adherence. 07/01/23: Ensure tid Will file Section VII on 07/02/23. 07/02/23: HCP activated today. Martine Elder is willing to serve in this role. [phone]. 07/03/23: Encourage treatment compliance 07/04/23 Encourage treatment compliance, begin process of validating HCP with the courts in order to provide pt with psychopharmacology options. 07/05/23 Encourage treatment. 07/07 remains disorganized in speech and behavior; refusing meds, paranoid -continue process of affirming HCP 07/08- Continue current plan. 07/09 continue current treatment plan 07/11/23 continue current treatment plan 07/12: Continue current regimen and plans 07/13: Continue current regimen and plans 07/14: Continue current plans and regimen 07/15/23: Continue current tx. Initiate regime 07/16. 07/17/23: Continue to encourage treatment. 07/18/23: Add prn Zyprexa IM if she refuses HS dosing 07/19: Continue current management and treatment plan. 07/20: Continue current management and treatment plan. 07/22: Continue tx. 07/23: Continue tx 07/24: Encourage milieu participation 07/26/23 continues too labile to interact with others- 07/27/23 - CTP encourage treatment 07/27/22 Continue tx plan; encourge meds as approved by HCP and court 07/29/23 schedule olanzepine discontinued after on hold for several days; awaiting invega sustenna to alleviate some of the psychosis in hopes patient more engageable and able to participate in her treatment; PO meds still ordered and should be offered with statement that they are court ordered and approved by HCP. 07/30/23 pt showing slight improvement- continue treatment plan 07/31/23 continue tx plan 08/01/23 continue tx plan 08/01 -Intermittently angry and irritable. Said hello to typewriter ribbon winder but then when typewriter ribbon winder asked how she was doing said none of your business. -Made swiping motion as if to scratch towards several staff, saying it was a curse -Yelled at peer today due to disorganized thought that person should not be in group room; yell that another peer who was going into the community refrigerator since patient thinks that the refrigerator is her property; able to be redirected 08/02 screamed at typewriter ribbon winder and refused to enage. 08/03 staff agree Patient seems to be increasingly disorganized, walking briskly down the calle and yelling at peers, staff, making angry accusatory remarks and frightening and provoking some patients, causing some patients to become angry response. Will not engage with typewriter ribbon winder. -patient on Invega Sustenna however behaviors are problematic, upsetting and sometimes scary to both peers and staff. Patient psychotic illness has gone untreated for quite some time and it seems likely she will need p.o. to overlap long-acting medication. Catering Attendant reached out to patient's healthcare proxy Brit Elder and left message to discuss treatment 08/06/23- Continue tx. Pt today able to reach out and initiate discussion. Benztropine 1 mg tid prn EPS 08/07/23- Continue tx. 08/08/23- Continue tx. 08/09/2023: Continue current regimen and plans. 08/10/2023: Continue current regimen and plans 08/12/23: Diagnostics 08/13/23. 08/13/23: Continue tx. 08/14/23: Continue tx. 08/15/23: Continue tx. 08/15: continue current management and treatment plan. 08/16: continue current management and treatment plan. 08/17: Continue tx. 08/18: Continue tx. 08/21/23: Continue tx. 08/22/23: Continue tx. 08/23/23 improving adls and med compliance- but picks and chooses who she will interact with 08/24/23- CTP 08/25/23 CTP 08/26/23- Continue tx- attempt diagnostics again this week. 08/28/23- Continue tx. 08/29/23- Continue to attempt to get pt involved in discharge planning and daily routine expectations. 08/31/23- Continue to attempt education regarding intrusive behaviors, reality testing 09/01/23- Depakote ER 500 mg HS Increase Olanzapine 20 mg bid 09/03/23: CBCD, CMP, A1c, Lipids, TSH 09/03 for first time, pt pleasant, cooperative with typewriter ribbon winder. c/o of some body aches but says ibuprofin helping. Has been asking nursing for discharge and responding angrily, saying she owns the hospital when request (for dc) not granted. Patient educated on: diagnosis Informed Consent: does not understand Reason for continued inpatient stay Substantial Risk for: inability to function Time Spent With Patient Time: Total time managing care of this patient today ____ minutes.
[2023-09-05 08:00] VITALS: RESP 18
[2023-09-05] MEDS: Ibuprofen 600 MG TABLET PO ×3 (08:45→21:24)
[2023-09-05] MEDS: OLANZapine ODT 10 MG TAB.RAPDIS 20 MG TRANSLINGU ×2 (08:46→21:24)
--- NOTE | 2023-09-05 19:18 | HO.PSYCHPN ---
Subjective Subjective Date of Service: 09/05/23 Reason For Visit: Schizoaffective disorder Interim History: discussed with team briefly met with patient who was sleeping on approach. Remains pleasant toward residential mortgage underwriter, thanking for inquiry but that she is taking a nap and wants to continue resting. no complaints/requests Mental Status Exam Mental Status Exam Patient Appearance: Disheveled Patient Orientation: Person and Place Level of Consciousness: Awake, Drowsy and Alert Patient Behavior: Impulsive Mood Description: Labile Affect Description: Labile Patient Cognition Impaired: Yes Ability to Follow Directions: Fair Speech Pattern: Spontaneous Speech Memory Description: Remote Impaired Hallucinations: None Delusions: Present Thought Process: Distracted and Goal Oriented Thought Content: positive for [place] and positive for Circumstantial Abnormal Motor Activity Signs and Symptoms: Agitation (intermittent) Judgement: Poor Diagnostics Vital Signs (24Hr): Vital Signs - 24 hr 09/05/23 08:00 Respiratory Rate 18 BMI result Body Mass Index 34.1 Labs 06/25/23 17:59 06/25/23 17:59 Medications Medications Current Medications Al Hydroxide/Mg Hydroxide (Magnesium Hydrox/Alum Hydrox 30 Ml Oral.Susp) 30 ml PO Q6H PRN PRN Reason: Heartburn/Nausea Albuterol Sulfate (Albuterol Sulfate 90 Mcg 8 Gm Inhaler) 2 puff INHALE Q4H PRN PRN Reason: Wheezing Benztropine Mesylate (Benztropine Mesylate 1 Mg Tablet) 1 mg PO TID PRN PRN Reason: Extrapyramidal Effects Divalproex Sodium (Divalproex Sodium Er 500 Mg Tab.Er.24h) 500 mg PO BEDTIME [facility] Last Admin: 09/04/23 20:04 Dose: Not Given Duloxetine HCl (Duloxetine Hcl 20 Mg Capsule.Dr) 40 mg PO DAILY [facility] Last Admin: 09/05/23 10:55 Dose: Not Given Hydroxyzine HCl (Hydroxyzine Hcl 25 Mg Tablet) 25 mg PO Q6H PRN PRN Reason: Anxiety Ibuprofen (Ibuprofen 600 Mg Tablet) 600 mg PO Q6H PRN PRN Reason: moderate to severe pain Last Admin: 09/05/23 13:50 Dose: 600 mg Lorazepam (Lorazepam 0.5 Mg Tablet) 0.5 mg PO BID [facility] Last Admin: 09/05/23 10:55 Dose: Not Given Magnesium Hydroxide (Milk Of Magnesia 30 Ml Oral.Susp) 30 ml PO DAILY PRN PRN Reason: Constipation Metformin HCl (Metformin Hcl 500 Mg Tablet) 500 mg PO BID [facility] Last Admin: 09/05/23 10:55 Dose: Not Given Metronidazole (Metronidazole 0.75 % Gel 45 Gm Tube) 1 appl TOPICAL DAILY [facility] Last Admin: 09/05/23 10:57 Dose: Not Given Multivitamins/Vitamin C (Multivitamin Tablet) 1 tab PO DAILY [facility] Last Admin: 09/05/23 10:55 Dose: Not Given Nicotine Polacrilex (Nicotine Polacrilex Lozenge 2 Mg Lozenge) 2 mg BUCCAL Q2H PRN PRN Reason: Nicotine Cravings Olanzapine (Olanzapine Odt 10 Mg Tab.Rapdis) 10 mg TRANSLINGU DAILY PRN PRN Reason: Psychosis Last Admin: 08/04/23 17:34 Dose: 10 mg Olanzapine (Olanzapine 10 Mg Vial) 10 mg IM BID PRN PRN Reason: if refuses PO Zydis Last Admin: 08/13/23 09:17 Dose: 10 mg Olanzapine (Olanzapine Odt 10 Mg Tab.Rapdis) 20 mg TRANSLINGU BID [facility] Last Admin: 09/05/23 08:46 Dose: 20 mg Paliperidone Palmitate (Paliperidone Palmitate 234 Mg/1.5 Ml Syringe) 234 mg IM Q30D [facility] Last Admin: 08/21/23 12:39 Dose: 234 mg Trazodone HCl (Trazodone Hcl 50 Mg Tablet) 50 mg PO BEDTIME MRX1 PRN PRN Reason: Insomnia Vitamin D (Cholecalciferol (Vitamin D3) 10 Mcg Tablet) 10 mcg PO DAILY [facility] Last Admin: 09/05/23 10:55 Dose: Not Given Allergies Allergies Allergy/AdvReac Type Severity Reaction Status Date / Time acetaminophen [From TYLENOL] Allergy Intermediate HIVES Verified 08/28/22 09:48 meperidine [From Demerol] Allergy Unknown Verified 08/28/22 09:48 Assessment & Plan Assessment & Plan (1) Schizoaffective disorder: Qualifiers: Schizoaffective disorder type: bipolar Qualified Code(s): F25.0 - Schizoaffective disorder, bipolar type Status: Acute Code(s): F25.9 - Schizoaffective disorder, unspecified Assessment and Plan: Presents with decompensation of schizoaffective disorder, while in group living environment. Not adherence appears to be a factor. Patient not engaging with interview, evaluation or adherent with medications ie declining same. Unable to care for self. Being held on a Section 12 that will on 07/02/23. In the meantime will try and establish report and encourage medication adherence. Plan 06/29: encourage med adherence. 07/01/23: Ensure tid Will file Section VII on 07/02/23. 07/02/23: HCP activated today. Matrine Elder is willing to serve in this role. [phone]. 07/03/23: Encourage treatment compliance 07/04/23 Encourage treatment compliance, begin process of validating HCP with the courts in order to provide pt with psychopharmacology options. 07/05/23 Encourage treatment. 07/07 remains disorganized in speech and behavior; refusing meds, paranoid -continue process of affirming HCP 07/08- Continue current plan. 07/09 continue current treatment plan 07/11/23 continue current treatment plan 07/12: Continue current regimen and plans 07/13: Continue current regimen and plans 07/14: Continue current plans and regimen 07/15/23: Continue current tx. Initiate regime 07/16. 07/17/23: Continue to encourage treatment. 07/18/23: Add prn Zyprexa IM if she refuses HS dosing 07/19: Continue current management and treatment plan. 07/20: Continue current management and treatment plan. 07/22: Continue tx. 07/23: Continue tx 07/24: Encourage milieu participation 07/26/23 continues too labile to interact with others- 07/27/23 - CTP encourage treatment 07/27/22 Continue tx plan; encourge meds as approved by HCP and court 07/29/23 schedule olanzepine discontinued after on hold for several days; awaiting invega sustenna to alleviate some of the psychosis in hopes patient more engageable and able to participate in her treatment; PO meds still ordered and should be offered with statement that they are court ordered and approved by HCP. 07/30/23 pt showing slight improvement- continue treatment plan 07/31/23 continue tx plan 08/01/23 continue tx plan 08/01 -Intermittently angry and irritable. Said hello to residential mortgage underwriter but then when residential mortgage underwriter asked how she was doing said none of your business. -Made swiping motion as if to scratch towards several staff, saying it was a curse -Yelled at peer today due to disorganized thought that person should not be in group room; yell that another peer who was going into the community refrigerator since patient thinks that the refrigerator is her property; able to be redirected 08/02 screamed at residential mortgage underwriter and refused to enage. 08/03 staff agree Patient seems to be increasingly disorganized, walking briskly down the calle and yelling at peers, staff, making angry accusatory remarks and frightening and provoking some patients, causing some patients to become angry response. Will not engage with residential mortgage underwriter. -patient on Invega Sustenna however behaviors are problematic, upsetting and sometimes scary to both peers and staff. Patient psychotic illness has gone untreated for quite some time and it seems likely she will need p.o. to overlap long-acting medication. Health Information Director reached out to patient's healthcare proxy Brit Elder and left message to discuss treatment 08/06/23- Continue tx. Pt today able to reach out and initiate discussion. Benztropine 1 mg tid prn EPS 08/07/23- Continue tx. 08/12/23: Diagnostics 08/13/23. 08/16: continue current management and treatment plan. 08/23/23 improving adls and med compliance- but picks and chooses who she will interact with 08/26/23- Continue tx- attempt diagnostics again this week. 08/29/23- Continue to attempt to get pt involved in discharge planning and daily routine expectations. 08/31/23- Continue to attempt education regarding intrusive behaviors, reality testing 09/01/23- Depakote ER 500 mg HS Increase Olanzapine 20 mg bid 09/03/23: CBCD, CMP, A1c, Lipids, TSH 09/03 for first time, pt pleasant, cooperative with residential mortgage underwriter. c/o of some body aches but says ibuprofin helping. Has been asking nursing for discharge and responding angrily, saying she owns the hospital when request (for dc) not granted. 09/04 continue tx Reason for continued inpatient stay Substantial Risk for: inability to function Time Spent With Patient Time: Total time managing care of this patient today ____ minutes.
[2023-09-06 08:07] VITALS: BP 141/83; PULSE 92; RESP 16; TEMP 36.4; O2SAT 95
[2023-09-06] MEDS: Ibuprofen 600 MG TABLET PO ×2 (09:07→19:40)
[2023-09-06] MEDS: OLANZapine ODT 10 MG TAB.RAPDIS 20 MG TRANSLINGU ×2 (09:08→19:58)
[2023-09-06 18:00] VITALS: BP 149/66; PULSE 87; RESP 18; TEMP 36.5; O2SAT 97
--- NOTE | 2023-09-06 21:41 | P.PNPSI_ITS ---
Subjective Subjective Date of Service: 09/06/23 Reason For Visit: Schizoaffective disorder Subjective Notes: Conditional Voluntary Interim History: Patient seen occasionally out on the unit, is unkempt wearing a robe, pacing up and down hallways with a set of headphones on. Often dragging her slippers along the floor. She appears disorganized, kept to herself and appeared to avoid eye contact. Upon first few attempts to approach her she did not stop or acknowledge this documentation writer. On one occasion I walked beside her and again introduced myself, she loudly responded I wont tell you my name! and wiggled her hand oddly toward my face as she walked off. Per staff, she refused vitals and labs this morning and has only taken AM Zyprexa so far, refused her AM duloxetine and metformin. There were no other incidents noted on the unit. Mental Status Exam Mental Status Exam Narrative: Patient Appearance: Disheveled Patient Orientation: Person and Place Level of Consciousness: Awake, Drowsy and Alert Patient Behavior: Impulsive Mood Description: Labile Affect Description: Labile Patient Cognition Impaired: Yes Ability to Follow Directions: Fair Speech Pattern: Spontaneous Speech Memory Description: Remote Impaired Hallucinations: None Delusions: Present Thought Process: Distracted and Goal Oriented Thought Content: positive for [place] and positive for Circumstantial Abnormal Motor Activity Signs and Symptoms: Agitation (intermittent) Judgement: Poor Diagnostics Vital Signs (24Hr): Vital Signs - 24 hr 09/06/23 08:07 09/06/23 18:00 Temperature 97.5 F 97.7 F Pulse Rate 92 87 Respiratory Rate 16 18 Blood Pressure 141/83 H 149/66 H Pulse Oximetry 95 97 Oxygen Delivery Method Room Air Room Air BMI result Body Mass Index 34.1 Labs 06/25/23 17:59 06/25/23 17:59 Medications Medications Current Medications Al Hydroxide/Mg Hydroxide (Magnesium Hydrox/Alum Hydrox 30 Ml Oral.Susp) 30 ml PO Q6H PRN PRN Reason: Heartburn/Nausea Albuterol Sulfate (Albuterol Sulfate 90 Mcg 8 Gm Inhaler) 2 puff INHALE Q4H PRN PRN Reason: Wheezing Benztropine Mesylate (Benztropine Mesylate 1 Mg Tablet) 1 mg PO TID PRN PRN Reason: Extrapyramidal Effects Divalproex Sodium (Divalproex Sodium Er 500 Mg Tab.Er.24h) 500 mg PO BEDTIME [facility] Last Admin: 09/06/23 20:17 Dose: Not Given Duloxetine HCl (Duloxetine Hcl 20 Mg Capsule.Dr) 40 mg PO DAILY [facility] Last Admin: 09/06/23 09:13 Dose: Not Given Hydroxyzine HCl (Hydroxyzine Hcl 25 Mg Tablet) 25 mg PO Q6H PRN PRN Reason: Anxiety Ibuprofen (Ibuprofen 600 Mg Tablet) 600 mg PO Q6H PRN PRN Reason: moderate to severe pain Last Admin: 09/06/23 19:40 Dose: 600 mg Lorazepam (Lorazepam 0.5 Mg Tablet) 0.5 mg PO BID [facility] Last Admin: 09/06/23 20:17 Dose: Not Given Magnesium Hydroxide (Milk Of Magnesia 30 Ml Oral.Susp) 30 ml PO DAILY PRN PRN Reason: Constipation Metformin HCl (Metformin Hcl 500 Mg Tablet) 500 mg PO BID [facility] Last Admin: 09/06/23 20:17 Dose: Not Given Metronidazole (Metronidazole 0.75 % Gel 45 Gm Tube) 1 appl TOPICAL DAILY [facility] Last Admin: 09/06/23 09:12 Dose: Not Given Multivitamins/Vitamin C (Multivitamin Tablet) 1 tab PO DAILY [facility] Last Admin: 09/06/23 09:12 Dose: Not Given Nicotine Polacrilex (Nicotine Polacrilex Lozenge 2 Mg Lozenge) 2 mg BUCCAL Q2H PRN PRN Reason: Nicotine Cravings Olanzapine (Olanzapine Odt 10 Mg Tab.Rapdis) 10 mg TRANSLINGU DAILY PRN PRN Reason: Psychosis Last Admin: 08/04/23 17:34 Dose: 10 mg Olanzapine (Olanzapine 10 Mg Vial) 10 mg IM BID PRN PRN Reason: if refuses PO Zydis Last Admin: 08/13/23 09:17 Dose: 10 mg Olanzapine (Olanzapine Odt 10 Mg Tab.Rapdis) 20 mg TRANSLINGU BID [facility] Last Admin: 09/06/23 19:58 Dose: 20 mg Paliperidone Palmitate (Paliperidone Palmitate 234 Mg/1.5 Ml Syringe) 234 mg IM Q30D [facility] Last Admin: 08/21/23 12:39 Dose: 234 mg Trazodone HCl (Trazodone Hcl 50 Mg Tablet) 50 mg PO BEDTIME MRX1 PRN PRN Reason: Insomnia Vitamin D (Cholecalciferol (Vitamin D3) 10 Mcg Tablet) 10 mcg PO DAILY [facility] Last Admin: 09/06/23 09:13 Dose: Not Given Allergies Allergies Allergy/AdvReac Type Severity Reaction Status Date / Time acetaminophen [From TYLENOL] Allergy Intermediate HIVES Verified 08/28/22 09:48 meperidine [From Demerol] Allergy Unknown Verified 08/28/22 09:48 Assessment & Plan Assessment & Plan (1) Schizoaffective disorder: Qualifiers: Schizoaffective disorder type: bipolar Qualified Code(s): F25.0 - Schizoaffective disorder, bipolar type Status: Acute Code(s): F25.9 - Schizoaffective disorder, unspecified Assessment and Plan: Presents with decompensation of schizoaffective disorder, while in group living environment. Not adherence appears to be a factor. Patient not engaging with interview, evaluation or adherent with medications ie declining same. Unable to care for self. Being held on a Section 12 that will on 07/02/23. In the meantime will try and establish report and encourage medication adherence. Plan 06/29: encourage med adherence. 07/01/23: Ensure tid Will file Section VII on 07/02/23. 07/02/23: HCP activated today. Martine Elder is willing to serve in this role. [phone]. 07/03/23: Encourage treatment compliance 07/04/23 Encourage treatment compliance, begin process of validating HCP with the courts in order to provide pt with psychopharmacology options. 07/05/23 Encourage treatment. 07/07 remains disorganized in speech and behavior; refusing meds, paranoid -continue process of affirming HCP 07/08- Continue current plan. 07/09 continue current treatment plan 07/11/23 continue current treatment plan 07/12: Continue current regimen and plans 07/13: Continue current regimen and plans 07/14: Continue current plans and regimen 07/15/23: Continue current tx. Initiate regime 07/16. 07/17/23: Continue to encourage treatment. 07/18/23: Add prn Zyprexa IM if she refuses HS dosing 07/19: Continue current management and treatment plan. 07/20: Continue current management and treatment plan. 07/22: Continue tx. 07/23: Continue tx 07/24: Encourage milieu participation 07/26/23 continues too labile to interact with others- 07/27/23 - CTP encourage treatment 07/27/22 Continue tx plan; encourge meds as approved by HCP and court 07/29/23 schedule olanzepine discontinued after on hold for several days; awaiting invega sustenna to alleviate some of the psychosis in hopes patient more engageable and able to participate in her treatment; PO meds still ordered and should be offered with statement that they are court ordered and approved by HCP. 07/30/23 pt showing slight improvement- continue treatment plan 07/31/23 continue tx plan 08/01/23 continue tx plan 08/01 -Intermittently angry and irritable. Said hello to documentation writer but then when documentation writer asked how she was doing said none of your business. -Made swiping motion as if to scratch towards several staff, saying it was a curse -Yelled at peer today due to disorganized thought that person should not be in group room; yell that another peer who was going into the community refrigerator since patient thinks that the refrigerator is her property; able to be redirected 08/02 screamed at documentation writer and refused to enage. 08/03 staff agree Patient seems to be increasingly disorganized, walking briskly down the calle and yelling at peers, staff, making angry accusatory remarks and frightening and provoking some patients, causing some patients to become angry response. Will not engage with documentation writer. -patient on Invega Sustenna however behaviors are problematic, upsetting and sometimes scary to both peers and staff. Patient psychotic illness has gone untreated for quite some time and it seems likely she will need p.o. to overlap long-acting medication. Television Tube Inspector reached out to patient's healthcare proxy Brit Elder and left message to discuss treatment 08/06/23- Continue tx. Pt today able to reach out and initiate discussion. Benztropine 1 mg tid prn EPS 08/07/23- Continue tx. 08/12/23: Diagnostics 08/13/23. 08/16: continue current management and treatment plan. 08/23/23 improving adls and med compliance- but picks and chooses who she will interact with 08/26/23- Continue tx- attempt diagnostics again this week. 08/29/23- Continue to attempt to get pt involved in discharge planning and daily routine expectations. 08/31/23- Continue to attempt education regarding intrusive behaviors, reality testing 09/01/23- Depakote ER 500 mg HS Increase Olanzapine 20 mg bid 09/03/23: CBCD, CMP, A1c, Lipids, TSH 09/03 for first time, pt pleasant, cooperative with documentation writer. c/o of some body aches but says ibuprofin helping. Has been asking nursing for discharge and responding angrily, saying she owns the hospital when request (for dc) not granted. 09/04 continue tx 09/05 continue tx Reason for continued inpatient stay Substantial Risk for: inability to function, rapid decompensation and med/psych decompensation Time Spent With Patient Time: Total time managing care of this patient today ____ minutes.
[2023-09-07] MEDS: Ibuprofen 600 MG TABLET PO ×3 (06:34→21:10)
[2023-09-07] MEDS: OLANZapine ODT 10 MG TAB.RAPDIS 20 MG TRANSLINGU ×2 (09:07→21:10)
--- NOTE | 2023-09-07 23:28 | HO.PSYCHPN ---
Subjective Subjective Date of Service: 09/07/23 Reason For Visit: Schizoaffective disorder Interim History: SATUDAY: Patient seen occasionally out on the unit, is unkempt wearing a robe, pacing up and down hallways with a set of headphones on. Often dragging her slippers along the floor. She appears disorganized, kept to herself and appeared to avoid eye contact. Upon first few attempts to approach her she did not stop or acknowledge this parts data writer. On one occasion I walked beside her and again introduced myself, she loudly responded I wont tell you my name! and wiggled her hand oddly toward my face as she walked off. Per staff, she refused vitals and labs this morning and has only taken AM Zyprexa so far, refused her AM duloxetine and metformin. There were no other incidents noted on the unit. TODAY: Per nursing staff, patient was pleasant this morning. lying under the covers. Took Zyprexa without an issues. She was seen in her room, immediately began yelling at this parts data writer You're not a doctor and Get out of here, you dont belong here . Approaching this parts data writer as I backed away from the door but did stop at the threshold to continue to yell. Did not respond to any questions. everntually retreated into the room. Continues to be angry, belligerent, glaring toward me. Uncooperative .No changes from yesterday. Review of Systems Review of Systems Reports chronic pain daily, however, today, reports she believes medication is helpful in managing the pain and it is decreasing. Yes all other systems are reviewed and are negative and Unobtainable due to mental status Mental Status Exam Mental Status Exam Narrative: In today's visit she is alert, minimally pleasant and minimally interactive. Normal speech/loud. No eye contact. Affect is labile. Probably responding to internal stimuli. No SI. Cognitively could not be assessed. Judgment could not be assessed Diagnostics Vital Signs (24Hr): BMI result Body Mass Index 34.1 Labs 06/25/23 17:59 06/25/23 17:59 Medications Medications Current Medications Al Hydroxide/Mg Hydroxide (Magnesium Hydrox/Alum Hydrox 30 Ml Oral.Susp) 30 ml PO Q6H PRN PRN Reason: Heartburn/Nausea Albuterol Sulfate (Albuterol Sulfate 90 Mcg 8 Gm Inhaler) 2 puff INHALE Q4H PRN PRN Reason: Wheezing Benztropine Mesylate (Benztropine Mesylate 1 Mg Tablet) 1 mg PO TID PRN PRN Reason: Extrapyramidal Effects Divalproex Sodium (Divalproex Sodium Er 500 Mg Tab.Er.24h) 500 mg PO BEDTIME [facility] Last Admin: 09/07/23 22:35 Dose: Not Given Duloxetine HCl (Duloxetine Hcl 20 Mg Capsule.Dr) 40 mg PO DAILY [facility] Last Admin: 09/07/23 09:02 Dose: Not Given Hydroxyzine HCl (Hydroxyzine Hcl 25 Mg Tablet) 25 mg PO Q6H PRN PRN Reason: Anxiety Ibuprofen (Ibuprofen 600 Mg Tablet) 600 mg PO Q6H PRN PRN Reason: moderate to severe pain Last Admin: 09/07/23 21:10 Dose: 600 mg Lorazepam (Lorazepam 0.5 Mg Tablet) 0.5 mg PO BID [facility] Last Admin: 09/07/23 22:35 Dose: Not Given Magnesium Hydroxide (Milk Of Magnesia 30 Ml Oral.Susp) 30 ml PO DAILY PRN PRN Reason: Constipation Metformin HCl (Metformin Hcl 500 Mg Tablet) 500 mg PO BID [facility] Last Admin: 09/07/23 22:36 Dose: Not Given Metronidazole (Metronidazole 0.75 % Gel 45 Gm Tube) 1 appl TOPICAL DAILY [facility] Last Admin: 09/07/23 09:02 Dose: Not Given Multivitamins/Vitamin C (Multivitamin Tablet) 1 tab PO DAILY [facility] Last Admin: 09/07/23 09:02 Dose: Not Given Nicotine Polacrilex (Nicotine Polacrilex Lozenge 2 Mg Lozenge) 2 mg BUCCAL Q2H PRN PRN Reason: Nicotine Cravings Olanzapine (Olanzapine Odt 10 Mg Tab.Rapdis) 10 mg TRANSLINGU DAILY PRN PRN Reason: Psychosis Last Admin: 08/04/23 17:34 Dose: 10 mg Olanzapine (Olanzapine 10 Mg Vial) 10 mg IM BID PRN PRN Reason: if refuses PO Zydis Last Admin: 08/13/23 09:17 Dose: 10 mg Olanzapine (Olanzapine Odt 10 Mg Tab.Rapdis) 20 mg TRANSLINGU BID [facility] Last Admin: 09/07/23 21:10 Dose: 20 mg Paliperidone Palmitate (Paliperidone Palmitate 234 Mg/1.5 Ml Syringe) 234 mg IM Q30D [facility] Last Admin: 08/21/23 12:39 Dose: 234 mg Trazodone HCl (Trazodone Hcl 50 Mg Tablet) 50 mg PO BEDTIME MRX1 PRN PRN Reason: Insomnia Vitamin D (Cholecalciferol (Vitamin D3) 10 Mcg Tablet) 10 mcg PO DAILY [facility] Last Admin: 09/07/23 09:02 Dose: Not Given Allergies Allergies Allergy/AdvReac Type Severity Reaction Status Date / Time acetaminophen [From TYLENOL] Allergy Intermediate HIVES Verified 08/28/22 09:48 meperidine [From Demerol] Allergy Unknown Verified 08/28/22 09:48 Assessment & Plan Assessment & Plan (1) Schizoaffective disorder: Qualifiers: Schizoaffective disorder type: bipolar Qualified Code(s): F25.0 - Schizoaffective disorder, bipolar type Status: Acute Code(s): F25.9 - Schizoaffective disorder, unspecified Assessment and Plan: Presents with decompensation of schizoaffective disorder, while in group living environment. Not adherence appears to be a factor. Patient not engaging with interview, evaluation or adherent with medications ie declining same. Unable to care for self. Being held on a Section 12 that will on 07/02/23. In the meantime will try and establish report and encourage medication adherence. Plan 06/29: encourage med adherence. 07/01/23: Ensure tid Will file Section VII on 07/02/23. 07/02/23: HCP activated today. Martine Elder is willing to serve in this role. [phone]. 07/03/23: Encourage treatment compliance 07/04/23 Encourage treatment compliance, begin process of validating HCP with the courts in order to provide pt with psychopharmacology options. 07/05/23 Encourage treatment. 07/07 remains disorganized in speech and behavior; refusing meds, paranoid -continue process of affirming HCP 07/08- Continue current plan. 07/09 continue current treatment plan 07/11/23 continue current treatment plan 07/12: Continue current regimen and plans 07/13: Continue current regimen and plans 07/14: Continue current plans and regimen 07/15/23: Continue current tx. Initiate regime 07/16. 07/17/23: Continue to encourage treatment. 07/18/23: Add prn Zyprexa IM if she refuses HS dosing 07/19: Continue current management and treatment plan. 07/20: Continue current management and treatment plan. 07/22: Continue tx. 07/23: Continue tx 07/24: Encourage milieu participation 07/26/23 continues too labile to interact with others- 07/27/23 - CTP encourage treatment 07/27/22 Continue tx plan; encourge meds as approved by HCP and court 07/29/23 schedule olanzepine discontinued after on hold for several days; awaiting invega sustenna to alleviate some of the psychosis in hopes patient more engageable and able to participate in her treatment; PO meds still ordered and should be offered with statement that they are court ordered and approved by HCP. 07/30/23 pt showing slight improvement- continue treatment plan 07/31/23 continue tx plan 08/01/23 continue tx plan 08/01 -Intermittently angry and irritable. Said hello to parts data writer but then when parts data writer asked how she was doing said none of your business. -Made swiping motion as if to scratch towards several staff, saying it was a curse -Yelled at peer today due to disorganized thought that person should not be in group room; yell that another peer who was going into the community refrigerator since patient thinks that the refrigerator is her property; able to be redirected 08/02 screamed at parts data writer and refused to enage. 08/03 staff agree Patient seems to be increasingly disorganized, walking briskly down the calle and yelling at peers, staff, making angry accusatory remarks and frightening and provoking some patients, causing some patients to become angry response. Will not engage with parts data writer. -patient on Invega Sustenna however behaviors are problematic, upsetting and sometimes scary to both peers and staff. Patient psychotic illness has gone untreated for quite some time and it seems likely she will need p.o. to overlap long-acting medication. Associate Drafter reached out to patient's healthcare proxy Brit Elder and left message to discuss treatment 08/06/23- Continue tx. Pt today able to reach out and initiate discussion. Benztropine 1 mg tid prn EPS 08/07/23- Continue tx. 08/12/23: Diagnostics 08/13/23. 08/16: continue current management and treatment plan. 08/23/23 improving adls and med compliance- but picks and chooses who she will interact with 08/26/23- Continue tx- attempt diagnostics again this week. 08/29/23- Continue to attempt to get pt involved in discharge planning and daily routine expectations. 08/31/23- Continue to attempt education regarding intrusive behaviors, reality testing 09/01/23- Depakote ER 500 mg HS Increase Olanzapine 20 mg bid 09/03/23: CBCD, CMP, A1c, Lipids, TSH 09/03 for first time, pt pleasant, cooperative with parts data writer. c/o of some body aches but says ibuprofin helping. Has been asking nursing for discharge and responding angrily, saying she owns the hospital when request (for dc) not granted. 09/04 continue tx 09/05 continue tx 09/06 continue tx Reason for continued inpatient stay Substantial Risk for: inability to function, rapid decompensation and med/psych decompensation Time Spent With Patient Time: Total time managing care of this patient today ____ minutes.
[2023-09-08] MEDS: Ibuprofen 600 MG TABLET PO (06:19)
[2023-09-08] MEDS: OLANZapine ODT 10 MG TAB.RAPDIS 20 MG TRANSLINGU ×2 (09:02→21:05)
--- NOTE | 2023-09-08 10:01 | HO.PSYCHPN ---
Subjective Subjective Date of Service: 09/08/23 Reason For Visit: Schizoaffective disorder Subjective Notes: Conditional Voluntary Interim History: 53 yo with psychosis continuing to improve slowly looks brighter and less intrussive on unit, goes to get her medications daily - which is improved- continues to say you are not a dr and refusing to meet with provider. Nursing reports sleeping, eating ok - Medication Compliance: Yes (with olanzapine) Side effects from medications: Yes (inc apt/wt?) Attending Groups: No Review of Systems Acute medical concerns: No Medical Review of Systems: unchanged Mental Status Exam Mental Status Exam Narrative: More groomed than 2 weeks ago when provider saw pt- less labile as well Patient Orientation: Person, Place, Time and Situation Level of Consciousness: Awake Patient Behavior: Uncooperative and Poor Eye Contact Mood Description: Apprehensive Affect Description: Apathetic Patient Cognition Impaired: No Ability to Follow Directions: Poor Speech Pattern: Clear Delusions: Grandiose Thought Process: Illogical Thought Content: positive for Flight of Ideas Judgement: Poor Diagnostics Vital Signs (24Hr): BMI result Body Mass Index 34.1 Labs 06/25/23 17:59 06/25/23 17:59 Medications Medications Current Medications Al Hydroxide/Mg Hydroxide (Magnesium Hydrox/Alum Hydrox 30 Ml Oral.Susp) 30 ml PO Q6H PRN PRN Reason: Heartburn/Nausea Albuterol Sulfate (Albuterol Sulfate 90 Mcg 8 Gm Inhaler) 2 puff INHALE Q4H PRN PRN Reason: Wheezing Benztropine Mesylate (Benztropine Mesylate 1 Mg Tablet) 1 mg PO TID PRN PRN Reason: Extrapyramidal Effects Divalproex Sodium (Divalproex Sodium Er 500 Mg Tab.Er.24h) 500 mg PO BEDTIME [facility] Last Admin: 09/07/23 22:35 Dose: Not Given Duloxetine HCl (Duloxetine Hcl 20 Mg Capsule.Dr) 40 mg PO DAILY [facility] Last Admin: 09/08/23 09:46 Dose: Not Given Hydroxyzine HCl (Hydroxyzine Hcl 25 Mg Tablet) 25 mg PO Q6H PRN PRN Reason: Anxiety Ibuprofen (Ibuprofen 600 Mg Tablet) 600 mg PO Q6H PRN PRN Reason: moderate to severe pain Last Admin: 09/08/23 06:19 Dose: 600 mg Lorazepam (Lorazepam 0.5 Mg Tablet) 0.5 mg PO BID [facility] Last Admin: 09/08/23 09:48 Dose: Not Given Magnesium Hydroxide (Milk Of Magnesia 30 Ml Oral.Susp) 30 ml PO DAILY PRN PRN Reason: Constipation Metformin HCl (Metformin Hcl 500 Mg Tablet) 500 mg PO BID [facility] Last Admin: 09/08/23 09:46 Dose: Not Given Metronidazole (Metronidazole 0.75 % Gel 45 Gm Tube) 1 appl TOPICAL DAILY [facility] Last Admin: 09/08/23 09:46 Dose: Not Given Multivitamins/Vitamin C (Multivitamin Tablet) 1 tab PO DAILY [facility] Last Admin: 09/08/23 09:46 Dose: Not Given Nicotine Polacrilex (Nicotine Polacrilex Lozenge 2 Mg Lozenge) 2 mg BUCCAL Q2H PRN PRN Reason: Nicotine Cravings Olanzapine (Olanzapine Odt 10 Mg Tab.Rapdis) 10 mg TRANSLINGU DAILY PRN PRN Reason: Psychosis Last Admin: 08/04/23 17:34 Dose: 10 mg Olanzapine (Olanzapine 10 Mg Vial) 10 mg IM BID PRN PRN Reason: if refuses PO Zydis Last Admin: 08/13/23 09:17 Dose: 10 mg Olanzapine (Olanzapine Odt 10 Mg Tab.Rapdis) 20 mg TRANSLINGU BID [facility] Last Admin: 09/08/23 09:02 Dose: 20 mg Paliperidone Palmitate (Paliperidone Palmitate 234 Mg/1.5 Ml Syringe) 234 mg IM Q30D [facility] Last Admin: 08/21/23 12:39 Dose: 234 mg Trazodone HCl (Trazodone Hcl 50 Mg Tablet) 50 mg PO BEDTIME MRX1 PRN PRN Reason: Insomnia Vitamin D (Cholecalciferol (Vitamin D3) 10 Mcg Tablet) 10 mcg PO DAILY [facility] Last Admin: 09/08/23 09:45 Dose: Not Given Allergies Allergies Allergy/AdvReac Type Severity Reaction Status Date / Time acetaminophen [From TYLENOL] Allergy Intermediate HIVES Verified 08/28/22 09:48 meperidine [From Demerol] Allergy Unknown Verified 08/28/22 09:48 Assessment & Plan Assessment & Plan (1) Schizoaffective disorder: Qualifiers: Schizoaffective disorder type: bipolar Qualified Code(s): F25.0 - Schizoaffective disorder, bipolar type Status: Acute Code(s): F25.9 - Schizoaffective disorder, unspecified Assessment and Plan: Presents with decompensation of schizoaffective disorder, while in group living environment. Not adherence appears to be a factor. Patient not engaging with interview, evaluation or adherent with medications ie declining same. Unable to care for self. Being held on a Section 12 that will on 07/02/23. In the meantime will try and establish report and encourage medication adherence. Plan 06/29: encourage med adherence. 07/01/23: Ensure tid Will file Section VII on 07/02/23. 07/02/23: HCP activated today. Martine Elder is willing to serve in this role. [phone]. 07/03/23: Encourage treatment compliance 07/04/23 Encourage treatment compliance, begin process of validating HCP with the courts in order to provide pt with psychopharmacology options. 07/05/23 Encourage treatment. 07/07 remains disorganized in speech and behavior; refusing meds, paranoid -continue process of affirming HCP 07/08- Continue current plan. 07/09 continue current treatment plan 07/11/23 continue current treatment plan 07/12: Continue current regimen and plans 07/13: Continue current regimen and plans 07/14: Continue current plans and regimen 07/15/23: Continue current tx. Initiate regime 07/16. 07/17/23: Continue to encourage treatment. 07/18/23: Add prn Zyprexa IM if she refuses HS dosing 07/19: Continue current management and treatment plan. 07/20: Continue current management and treatment plan. 07/22: Continue tx. 07/23: Continue tx 07/24: Encourage milieu participation 07/26/23 continues too labile to interact with others- 07/27/23 - CTP encourage treatment 07/27/22 Continue tx plan; encourge meds as approved by HCP and court 07/29/23 schedule olanzepine discontinued after on hold for several days; awaiting invega sustenna to alleviate some of the psychosis in hopes patient more engageable and able to participate in her treatment; PO meds still ordered and should be offered with statement that they are court ordered and approved by HCP. 07/30/23 pt showing slight improvement- continue treatment plan 07/31/23 continue tx plan 08/01/23 continue tx plan 08/01 -Intermittently angry and irritable. Said hello to typewriter aligner but then when typewriter aligner asked how she was doing said none of your business. -Made swiping motion as if to scratch towards several staff, saying it was a curse -Yelled at peer today due to disorganized thought that person should not be in group room; yell that another peer who was going into the community refrigerator since patient thinks that the refrigerator is her property; able to be redirected 08/02 screamed at typewriter aligner and refused to enage. 08/03 staff agree Patient seems to be increasingly disorganized, walking briskly down the calle and yelling at peers, staff, making angry accusatory remarks and frightening and provoking some patients, causing some patients to become angry response. Will not engage with typewriter aligner. -patient on Invega Sustenna however behaviors are problematic, upsetting and sometimes scary to both peers and staff. Patient psychotic illness has gone untreated for quite some time and it seems likely she will need p.o. to overlap long-acting medication. Training Associate reached out to patient's healthcare proxy Brit Elder and left message to discuss treatment 08/06/23- Continue tx. Pt today able to reach out and initiate discussion. Benztropine 1 mg tid prn EPS 08/07/23- Continue tx. 08/12/23: Diagnostics 08/13/23. 08/16: continue current management and treatment plan. 08/23/23 improving adls and med compliance- but picks and chooses who she will interact with 08/26/23- Continue tx- attempt diagnostics again this week. 08/29/23- Continue to attempt to get pt involved in discharge planning and daily routine expectations. 08/31/23- Continue to attempt education regarding intrusive behaviors, reality testing 09/01/23- Depakote ER 500 mg HS Increase Olanzapine 20 mg bid 09/03/23: CBCD, CMP, A1c, Lipids, TSH 09/03 for first time, pt pleasant, cooperative with typewriter aligner. c/o of some body aches but says ibuprofin helping. Has been asking nursing for discharge and responding angrily, saying she owns the hospital when request (for dc) not granted. 09/04 continue tx Reason for continued inpatient stay Substantial Risk for: rapid decompensation Time Spent With Patient Time: Total time managing care of this patient today ____ minutes.
[2023-09-08 18:00] VITALS: RESP 18
[2023-09-08] MEDS: LORazepam 0.5 MG TABLET PO (21:05)
[2023-09-08] MEDS: Divalproex Sodium ER 500 MG TAB.ER.24H PO (21:05)
[2023-09-09 08:38] VITALS: RESP 18
[2023-09-09] MEDS: OLANZapine ODT 10 MG TAB.RAPDIS 20 MG TRANSLINGU ×2 (08:43→22:06)
[2023-09-09] MEDS: Ibuprofen 600 MG TABLET PO (13:19)
--- NOTE | 2023-09-09 16:22 | HO.PSYCHPN ---
Subjective Subjective Date of Service: 09/09/23 Reason For Visit: Schizoaffective disorder Subjective Notes: Conditional Voluntary Healthcare Proxy: Yes Guardianship: No Medical Problems Affecting Mental Status: No Interim History: Visable in milieu. Confrontive about wanting discharge. [facility]usional [id number], senior living house, staff. All meds have fentanyl in them, I know I put it in them Pt has been given a reference list of what needs to take place prior to discharge-including regular compliance with all medications, ADL activity attendance, group attendance and regular meeting with residential team to prepare to transition. This was given to pt last week, when referenced, she is not accepting of it. I will give you a list. Medication Compliance: Yes Side effects from medications: No Attending Groups: No Review of Systems Acute medical concerns: No Medical Review of Systems: unchanged Review of Systems Review of Systems Yes Unobtainable due to mental status Mental Status Exam Mental Status Exam Patient Appearance: Disheveled Patient Orientation: Person and Place Level of Consciousness: Alert Patient Behavior: Talkative Mood Description: Labile Affect Description: Labile Patient Cognition Impaired: Yes Ability to Follow Directions: Good Speech Pattern: Spontaneous Speech Memory Description: Remote Impaired Hallucinations: None Delusions: Not Present Thought Process: Distracted Thought Content: positive for Flight of Ideas and positive for Circumstantial Depressive Symptoms: Increased Irritability Abnormal Motor Activity Signs and Symptoms: Agitation Judgement: Poor Diagnostics Vital Signs (24Hr): Vital Signs - 24 hr 09/08/23 18:00 09/09/23 08:38 Respiratory Rate 18 18 BMI result Body Mass Index 34.1 Labs 06/25/23 17:59 06/25/23 17:59 Medications Medications Current Medications Al Hydroxide/Mg Hydroxide (Magnesium Hydrox/Alum Hydrox 30 Ml Oral.Susp) 30 ml PO Q6H PRN PRN Reason: Heartburn/Nausea Albuterol Sulfate (Albuterol Sulfate 90 Mcg 8 Gm Inhaler) 2 puff INHALE Q4H PRN PRN Reason: Wheezing Benztropine Mesylate (Benztropine Mesylate 1 Mg Tablet) 1 mg PO TID PRN PRN Reason: Extrapyramidal Effects Divalproex Sodium (Divalproex Sodium Er 500 Mg Tab.Er.24h) 500 mg PO BEDTIME LOBITO Last Admin: 09/08/23 21:05 Dose: 500 mg Duloxetine HCl (Duloxetine Hcl 20 Mg Capsule.Dr) 40 mg PO DAILY [facility] Last Admin: 09/09/23 08:45 Dose: Not Given Hydroxyzine HCl (Hydroxyzine Hcl 25 Mg Tablet) 25 mg PO Q6H PRN PRN Reason: Anxiety Ibuprofen (Ibuprofen 600 Mg Tablet) 600 mg PO Q6H PRN PRN Reason: moderate to severe pain Last Admin: 09/09/23 13:19 Dose: 600 mg Lorazepam (Lorazepam 0.5 Mg Tablet) 0.5 mg PO BID [facility] Last Admin: 09/09/23 08:45 Dose: Not Given Magnesium Hydroxide (Milk Of Magnesia 30 Ml Oral.Susp) 30 ml PO DAILY PRN PRN Reason: Constipation Metformin HCl (Metformin Hcl 500 Mg Tablet) 500 mg PO BID [facility] Last Admin: 09/09/23 08:45 Dose: Not Given Metronidazole (Metronidazole 0.75 % Gel 45 Gm Tube) 1 appl TOPICAL DAILY [facility] Last Admin: 09/09/23 08:45 Dose: Not Given Multivitamins/Vitamin C (Multivitamin Tablet) 1 tab PO DAILY [facility] Last Admin: 09/09/23 08:45 Dose: Not Given Nicotine Polacrilex (Nicotine Polacrilex Lozenge 2 Mg Lozenge) 2 mg BUCCAL Q2H PRN PRN Reason: Nicotine Cravings Olanzapine (Olanzapine Odt 10 Mg Tab.Rapdis) 10 mg TRANSLINGU DAILY PRN PRN Reason: Psychosis Last Admin: 08/04/23 17:34 Dose: 10 mg Olanzapine (Olanzapine 10 Mg Vial) 10 mg IM BID PRN PRN Reason: if refuses PO Zydis Last Admin: 08/13/23 09:17 Dose: 10 mg Olanzapine (Olanzapine Odt 10 Mg Tab.Rapdis) 20 mg TRANSLINGU BID [facility] Last Admin: 09/09/23 08:43 Dose: 20 mg Paliperidone Palmitate (Paliperidone Palmitate 234 Mg/1.5 Ml Syringe) 234 mg IM Q30D [facility] Last Admin: 08/21/23 12:39 Dose: 234 mg Trazodone HCl (Trazodone Hcl 50 Mg Tablet) 50 mg PO BEDTIME MRX1 PRN PRN Reason: Insomnia Vitamin D (Cholecalciferol (Vitamin D3) 10 Mcg Tablet) 10 mcg PO DAILY [facility] Last Admin: 09/09/23 08:45 Dose: Not Given Allergies Allergies Allergy/AdvReac Type Severity Reaction Status Date / Time acetaminophen [From TYLENOL] Allergy Intermediate HIVES Verified 08/28/22 09:48 meperidine [From Demerol] Allergy Unknown Verified 08/28/22 09:48 Assessment & Plan Assessment & Plan (1) Schizoaffective disorder: Qualifiers: Schizoaffective disorder type: bipolar Qualified Code(s): F25.0 - Schizoaffective disorder, bipolar type Status: Acute Code(s): F25.9 - Schizoaffective disorder, unspecified Assessment and Plan: Presents with decompensation of schizoaffective disorder, while in group living environment. Not adherence appears to be a factor. Patient not engaging with interview, evaluation or adherent with medications ie declining same. Unable to care for self. Being held on a Section 12 that will on 07/02/23. In the meantime will try and establish report and encourage medication adherence. Plan 06/29: encourage med adherence. 07/01/23: Ensure tid Will file Section VII on 07/02/23. 07/02/23: HCP activated today. Martine Elder is willing to serve in this role. [phone]. 07/03/23: Encourage treatment compliance 07/04/23 Encourage treatment compliance, begin process of validating HCP with the courts in order to provide pt with psychopharmacology options. 07/05/23 Encourage treatment. 07/07 remains disorganized in speech and behavior; refusing meds, paranoid -continue process of affirming HCP 07/08- Continue current plan. 07/09 continue current treatment plan 07/11/23 continue current treatment plan 07/12: Continue current regimen and plans 07/13: Continue current regimen and plans 07/14: Continue current plans and regimen 07/15/23: Continue current tx. Initiate regime 07/16. 07/17/23: Continue to encourage treatment. 07/18/23: Add prn Zyprexa IM if she refuses HS dosing 07/19: Continue current management and treatment plan. 07/20: Continue current management and treatment plan. 07/22: Continue tx. 07/23: Continue tx 07/24: Encourage milieu participation 07/26/23 continues too labile to interact with others- 07/27/23 - CTP encourage treatment 07/27/22 Continue tx plan; encourge meds as approved by HCP and court 07/29/23 schedule olanzepine discontinued after on hold for several days; awaiting invega sustenna to alleviate some of the psychosis in hopes patient more engageable and able to participate in her treatment; PO meds still ordered and should be offered with statement that they are court ordered and approved by HCP. 07/30/23 pt showing slight improvement- continue treatment plan 07/31/23 continue tx plan 08/01/23 continue tx plan 08/01 -Intermittently angry and irritable. Said hello to loan underwriter but then when loan underwriter asked how she was doing said none of your business. -Made swiping motion as if to scratch towards several staff, saying it was a curse -Yelled at peer today due to disorganized thought that person should not be in group room; yell that another peer who was going into the community refrigerator since patient thinks that the refrigerator is her property; able to be redirected 08/02 screamed at loan underwriter and refused to enage. 08/03 staff agree Patient seems to be increasingly disorganized, walking briskly down the calle and yelling at peers, staff, making angry accusatory remarks and frightening and provoking some patients, causing some patients to become angry response. Will not engage with loan underwriter. -patient on Invega Sustenna however behaviors are problematic, upsetting and sometimes scary to both peers and staff. Patient psychotic illness has gone untreated for quite some time and it seems likely she will need p.o. to overlap long-acting medication. Business Coordinator reached out to patient's healthcare proxy Brit Elder and left message to discuss treatment 08/06/23- Continue tx. Pt today able to reach out and initiate discussion. Benztropine 1 mg tid prn EPS 08/07/23- Continue tx. 08/12/23: Diagnostics 08/13/23. 08/16: continue current management and treatment plan. 08/23/23 improving adls and med compliance- but picks and chooses who she will interact with 08/26/23- Continue tx- attempt diagnostics again this week. 08/29/23- Continue to attempt to get pt involved in discharge planning and daily routine expectations. 08/31/23- Continue to attempt education regarding intrusive behaviors, reality testing 09/01/23- Depakote ER 500 mg HS Increase Olanzapine 20 mg bid 09/03/23: CBCD, CMP, A1c, Lipids, TSH-refused 09/03 for first time, pt pleasant, cooperative with loan underwriter. c/o of some body aches but says ibuprofin helping. Has been asking nursing for discharge and responding angrily, saying she owns the hospital when request (for dc) not granted. 09/04 continue tx 09/05 continue tx 09/09/23 Continue tx. Encourage participation. Informed Consent: does not understand Reason for continued inpatient stay Substantial Risk for: rapid decompensation Time Spent With Patient Time: Total time managing care of this patient today ____ minutes.
[2023-09-09 17:09] VITALS: RESP 18
[2023-09-10] MEDS: OLANZapine ODT 10 MG TAB.RAPDIS 20 MG TRANSLINGU ×2 (08:48→21:16)
[2023-09-10] MEDS: Ibuprofen 600 MG TABLET PO (08:48)
--- NOTE | 2023-09-10 12:28 | PC.NURSE ---
approached pt to ask if she was agreeable to have labs drawn. No. I'm not having labs drawn. They're not phlebotomists . Pt was educated on phlebotomy procedure with no effect. Pt yelled I'm not having it done willingly before she stormed away.
--- NOTE | 2023-09-10 13:15 | P.PNPSI_ITS ---
Subjective Subjective Date of Service: 09/10/23 Reason For Visit: Schizoaffective disorder Subjective Notes: Conditional Voluntary Healthcare Proxy: Yes Guardianship: No Medical Problems Affecting Mental Status: No Interim History: Declines diagnostics today. Less irritable, more accepting of reality testing, yet not wanting to discuss any discharge planning. I am OK here . Observant to increase in milieu activity, commenting to tw at one point, we are all good here . Medication Compliance: Yes Side effects from medications: No Attending Groups: No Review of Systems Acute medical concerns: No Medical Review of Systems: unchanged Mental Status Exam Mental Status Exam Patient Appearance: Disheveled Patient Orientation: Person and Place Level of Consciousness: Alert Patient Behavior: Talkative Mood Description: Labile Affect Description: Labile Patient Cognition Impaired: Yes Ability to Follow Directions: Good Speech Pattern: Spontaneous Speech Memory Description: Remote Impaired Hallucinations: None Delusions: Not Present Thought Process: Distracted Thought Content: positive for Flight of Ideas and positive for Circumstantial Depressive Symptoms: Increased Irritability Abnormal Motor Activity Signs and Symptoms: Agitation Judgement: Poor Diagnostics Vital Signs (24Hr): Vital Signs - 24 hr 09/09/23 17:09 Respiratory Rate 18 Oxygen Delivery Method Room Air BMI result Body Mass Index 34.1 Labs 06/25/23 17:59 06/25/23 17:59 Medications Medications Current Medications Al Hydroxide/Mg Hydroxide (Magnesium Hydrox/Alum Hydrox 30 Ml Oral.Susp) 30 ml PO Q6H PRN PRN Reason: Heartburn/Nausea Albuterol Sulfate (Albuterol Sulfate 90 Mcg 8 Gm Inhaler) 2 puff INHALE Q4H PRN PRN Reason: Wheezing Benztropine Mesylate (Benztropine Mesylate 1 Mg Tablet) 1 mg PO TID PRN PRN Reason: Extrapyramidal Effects Divalproex Sodium (Divalproex Sodium Er 500 Mg Tab.Er.24h) 500 mg PO BEDTIME [facility] Last Admin: 09/09/23 22:28 Dose: Not Given Duloxetine HCl (Duloxetine Hcl 20 Mg Capsule.Dr) 40 mg PO DAILY [facility] Last Admin: 09/10/23 11:02 Dose: Not Given Hydroxyzine HCl (Hydroxyzine Hcl 25 Mg Tablet) 25 mg PO Q6H PRN PRN Reason: Anxiety Ibuprofen (Ibuprofen 600 Mg Tablet) 600 mg PO Q6H PRN PRN Reason: moderate to severe pain Last Admin: 09/10/23 08:48 Dose: 600 mg Lorazepam (Lorazepam 0.5 Mg Tablet) 0.5 mg PO BID [facility] Last Admin: 09/10/23 11:02 Dose: Not Given Magnesium Hydroxide (Milk Of Magnesia 30 Ml Oral.Susp) 30 ml PO DAILY PRN PRN Reason: Constipation Metformin HCl (Metformin Hcl 500 Mg Tablet) 500 mg PO BID [facility] Last Admin: 09/10/23 11:03 Dose: Not Given Metronidazole (Metronidazole 0.75 % Gel 45 Gm Tube) 1 appl TOPICAL DAILY [facility] Last Admin: 09/10/23 11:04 Dose: Not Given Multivitamins/Vitamin C (Multivitamin Tablet) 1 tab PO DAILY [facility] Last Admin: 09/10/23 11:04 Dose: Not Given Nicotine Polacrilex (Nicotine Polacrilex Lozenge 2 Mg Lozenge) 2 mg BUCCAL Q2H PRN PRN Reason: Nicotine Cravings Olanzapine (Olanzapine Odt 10 Mg Tab.Rapdis) 10 mg TRANSLINGU DAILY PRN PRN Reason: Psychosis Last Admin: 08/04/23 17:34 Dose: 10 mg Olanzapine (Olanzapine 10 Mg Vial) 10 mg IM BID PRN PRN Reason: if refuses PO Zydis Last Admin: 08/13/23 09:17 Dose: 10 mg Olanzapine (Olanzapine Odt 10 Mg Tab.Rapdis) 20 mg TRANSLINGU BID [facility] Last Admin: 09/10/23 08:48 Dose: 20 mg Paliperidone Palmitate (Paliperidone Palmitate 234 Mg/1.5 Ml Syringe) 234 mg IM Q30D [facility] Last Admin: 08/21/23 12:39 Dose: 234 mg Trazodone HCl (Trazodone Hcl 50 Mg Tablet) 50 mg PO BEDTIME MRX1 PRN PRN Reason: Insomnia Vitamin D (Cholecalciferol (Vitamin D3) 10 Mcg Tablet) 10 mcg PO DAILY [facility] Last Admin: 09/10/23 11:01 Dose: Not Given Allergies Allergies Allergy/AdvReac Type Severity Reaction Status Date / Time acetaminophen [From TYLENOL] Allergy Intermediate HIVES Verified 08/28/22 09:48 meperidine [From Demerol] Allergy Unknown Verified 08/28/22 09:48 Assessment & Plan Assessment & Plan (1) Schizoaffective disorder: Qualifiers: Schizoaffective disorder type: bipolar Qualified Code(s): F25.0 - Schizoaffective disorder, bipolar type Status: Acute Code(s): F25.9 - Schizoaffective disorder, unspecified Assessment and Plan: Presents with decompensation of schizoaffective disorder, while in group living environment. Not adherence appears to be a factor. Patient not engaging with interview, evaluation or adherent with medications ie declining same. Unable to care for self. Being held on a Section 12 that will on 07/02/23. In the meantime will try and establish report and encourage medication adherence. Plan 06/29: encourage med adherence. 07/01/23: Ensure tid Will file Section VII on 07/02/23. 07/02/23: HCP activated today. Martinemansi Elder is willing to serve in this role. [phone]. 07/03/23: Encourage treatment compliance 07/04/23 Encourage treatment compliance, begin process of validating HCP with the courts in order to provide pt with psychopharmacology options. 07/05/23 Encourage treatment. 07/07 remains disorganized in speech and behavior; refusing meds, paranoid -continue process of affirming HCP 07/08- Continue current plan. 07/09 continue current treatment plan 07/11/23 continue current treatment plan 07/12: Continue current regimen and plans 07/13: Continue current regimen and plans 07/14: Continue current plans and regimen 07/15/23: Continue current tx. Initiate regime 07/16. 07/17/23: Continue to encourage treatment. 07/18/23: Add prn Zyprexa IM if she refuses HS dosing 07/19: Continue current management and treatment plan. 07/20: Continue current management and treatment plan. 07/22: Continue tx. 07/23: Continue tx 07/24: Encourage milieu participation 07/26/23 continues too labile to interact with others- 07/27/23 - CTP encourage treatment 07/27/22 Continue tx plan; encourge meds as approved by HCP and court 07/29/23 schedule olanzepine discontinued after on hold for several days; awaiting invega sustenna to alleviate some of the psychosis in hopes patient more engageable and able to participate in her treatment; PO meds still ordered and should be offered with statement that they are court ordered and approved by HCP. 07/30/23 pt showing slight improvement- continue treatment plan 07/31/23 continue tx plan 08/01/23 continue tx plan 08/01 -Intermittently angry and irritable. Said hello to designer/writer but then when designer/writer asked how she was doing said none of your business. -Made swiping motion as if to scratch towards several staff, saying it was a curse -Yelled at peer today due to disorganized thought that person should not be in group room; yell that another peer who was going into the community refrigerator since patient thinks that the refrigerator is her property; able to be redirected 08/02 screamed at designer/writer and refused to enage. 08/03 staff agree Patient seems to be increasingly disorganized, walking briskly down the calle and yelling at peers, staff, making angry accusatory remarks and frightening and provoking some patients, causing some patients to become angry response. Will not engage with designer/writer. -patient on Invega Sustenna however behaviors are problematic, upsetting and sometimes scary to both peers and staff. Patient psychotic illness has gone untreated for quite some time and it seems likely she will need p.o. to overlap long-acting medication. Hospice Spiritual Care Coordinator reached out to patient's healthcare proxy Brit Elder and left message to discuss treatment 08/06/23- Continue tx. Pt today able to reach out and initiate discussion. Benztropine 1 mg tid prn EPS 08/07/23- Continue tx. 08/12/23: Diagnostics 08/13/23. 08/16: continue current management and treatment plan. 08/23/23 improving adls and med compliance- but picks and chooses who she will interact with 08/26/23- Continue tx- attempt diagnostics again this week. 08/29/23- Continue to attempt to get pt involved in discharge planning and daily routine expectations. 08/31/23- Continue to attempt education regarding intrusive behaviors, reality testing 09/01/23- Depakote ER 500 mg HS Increase Olanzapine 20 mg bid 09/03/23: CBCD, CMP, A1c, Lipids, TSH 09/03 for first time, pt pleasant, cooperative with designer/writer. c/o of some body aches but says ibuprofin helping. Has been asking nursing for discharge and responding angrily, saying she owns the hospital when request (for dc) not granted. 09/04 continue tx 09/05 continue tx 09/10/23 Continue regime and plan-declined diagnostics. Informed Consent: does not understand Reason for continued inpatient stay Substantial Risk for: rapid decompensation Time Spent With Patient Time: Total time managing care of this patient today ____ minutes.
--- NOTE | 2023-09-10 18:18 | PC.NURSE ---
pt refused vitals, labs, and EKG today.
[2023-09-11 08:00] VITALS: RESP 18
[2023-09-11] MEDS: Ibuprofen 600 MG TABLET PO ×3 (10:36→20:21)
[2023-09-11] MEDS: OLANZapine ODT 10 MG TAB.RAPDIS 20 MG TRANSLINGU ×2 (10:36→20:21)
--- NOTE | 2023-09-11 17:33 | P.PNPSI_ITS ---
Subjective Subjective Date of Service: 09/11/23 Reason For Visit: Schizoaffective disorder Subjective Notes: Conditional Voluntary Healthcare Proxy: Yes Guardianship: No Medical Problems Affecting Mental Status: No Interim History: Tell me again what I have to do to go home. Reviewed medicine compliance, hygiene, meeting with her residential team, attending groups. Today, pt is attentive, listening, asking appropriate questions. There is no confrontation, no insistence from pt that she owns the hospital, her residential agency, her team and does not need to work on her symptoms. I understand, will you buy me some soap and shampoo. ? Medication Compliance: Yes Side effects from medications: No Attending Groups: No Review of Systems Acute medical concerns: No Medical Review of Systems: unchanged Review of Systems Review of Systems Yes all other systems are reviewed and are negative Mental Status Exam Mental Status Exam Patient Appearance: Disheveled Patient Orientation: Person and Place Level of Consciousness: Alert Patient Behavior: Talkative Mood Description: Labile Affect Description: Labile Patient Cognition Impaired: Yes Ability to Follow Directions: Good Speech Pattern: Spontaneous Speech Memory Description: Remote Impaired Hallucinations: None Delusions: Not Present Thought Process: Distracted Thought Content: positive for Flight of Ideas and positive for Circumstantial Depressive Symptoms: Increased Irritability Judgement: Poor Diagnostics Vital Signs (24Hr): Vital Signs - 24 hr 09/11/23 08:00 Respiratory Rate 18 BMI result Body Mass Index 34.1 Labs 06/25/23 17:59 06/25/23 17:59 Medications Medications Current Medications Al Hydroxide/Mg Hydroxide (Magnesium Hydrox/Alum Hydrox 30 Ml Oral.Susp) 30 ml PO Q6H PRN PRN Reason: Heartburn/Nausea Albuterol Sulfate (Albuterol Sulfate 90 Mcg 8 Gm Inhaler) 2 puff INHALE Q4H PRN PRN Reason: Wheezing Benztropine Mesylate (Benztropine Mesylate 1 Mg Tablet) 1 mg PO TID PRN PRN Reason: Extrapyramidal Effects Divalproex Sodium (Divalproex Sodium Er 500 Mg Tab.Er.24h) 500 mg PO BEDTIME [facility] Last Admin: 09/10/23 21:17 Dose: Not Given Duloxetine HCl (Duloxetine Hcl 20 Mg Capsule.Dr) 40 mg PO DAILY [facility] Last Admin: 09/11/23 08:36 Dose: Not Given Hydroxyzine HCl (Hydroxyzine Hcl 25 Mg Tablet) 25 mg PO Q6H PRN PRN Reason: Anxiety Ibuprofen (Ibuprofen 600 Mg Tablet) 600 mg PO Q4H PRN PRN Reason: moderate to severe pain Last Admin: 09/11/23 15:18 Dose: 600 mg Lorazepam (Lorazepam 0.5 Mg Tablet) 0.5 mg PO BID [facility] Last Admin: 09/11/23 08:37 Dose: Not Given Magnesium Hydroxide (Milk Of Magnesia 30 Ml Oral.Susp) 30 ml PO DAILY PRN PRN Reason: Constipation Metformin HCl (Metformin Hcl 500 Mg Tablet) 500 mg PO BID [facility] Last Admin: 09/11/23 08:37 Dose: Not Given Metronidazole (Metronidazole 0.75 % Gel 45 Gm Tube) 1 appl TOPICAL DAILY [facility] Last Admin: 09/11/23 08:37 Dose: Not Given Multivitamins/Vitamin C (Multivitamin Tablet) 1 tab PO DAILY [facility] Last Admin: 09/11/23 08:37 Dose: Not Given Nicotine Polacrilex (Nicotine Polacrilex Lozenge 2 Mg Lozenge) 2 mg BUCCAL Q2H PRN PRN Reason: Nicotine Cravings Olanzapine (Olanzapine Odt 10 Mg Tab.Rapdis) 10 mg TRANSLINGU DAILY PRN PRN Reason: Psychosis Last Admin: 08/04/23 17:34 Dose: 10 mg Olanzapine (Olanzapine 10 Mg Vial) 10 mg IM BID PRN PRN Reason: if refuses PO Zydis Last Admin: 08/13/23 09:17 Dose: 10 mg Olanzapine (Olanzapine Odt 10 Mg Tab.Rapdis) 20 mg TRANSLINGU BID [facility] Last Admin: 09/11/23 10:36 Dose: 20 mg Paliperidone Palmitate (Paliperidone Palmitate 234 Mg/1.5 Ml Syringe) 234 mg IM Q30D [facility] Last Admin: 08/21/23 12:39 Dose: 234 mg Trazodone HCl (Trazodone Hcl 50 Mg Tablet) 50 mg PO BEDTIME MRX1 PRN PRN Reason: Insomnia Vitamin D (Cholecalciferol (Vitamin D3) 10 Mcg Tablet) 10 mcg PO DAILY [facility] Last Admin: 09/11/23 08:36 Dose: Not Given Allergies Allergies Allergy/AdvReac Type Severity Reaction Status Date / Time acetaminophen [From TYLENOL] Allergy Intermediate HIVES Verified 08/28/22 09:48 meperidine [From Demerol] Allergy Unknown Verified 08/28/22 09:48 Assessment & Plan Assessment & Plan (1) Schizoaffective disorder: Qualifiers: Schizoaffective disorder type: bipolar Qualified Code(s): F25.0 - Schizoaffective disorder, bipolar type Status: Acute Code(s): F25.9 - Schizoaffective disorder, unspecified Assessment and Plan: Presents with decompensation of schizoaffective disorder, while in group living environment. Not adherence appears to be a factor. Patient not engaging with interview, evaluation or adherent with medications ie declining same. Unable to care for self. Being held on a Section 12 that will on 07/02/23. In the meantime will try and establish report and encourage medication adherence. Plan 06/29: encourage med adherence. 07/01/23: Ensure tid Will file Section VII on 07/02/23. 07/02/23: HCP activated today. Martine Elder is willing to serve in this role. [phone]. 07/03/23: Encourage treatment compliance 07/04/23 Encourage treatment compliance, begin process of validating HCP with the courts in order to provide pt with psychopharmacology options. 07/05/23 Encourage treatment. 07/07 remains disorganized in speech and behavior; refusing meds, paranoid -continue process of affirming HCP 07/08- Continue current plan. 07/09 continue current treatment plan 07/11/23 continue current treatment plan 07/12: Continue current regimen and plans 07/13: Continue current regimen and plans 07/14: Continue current plans and regimen 07/15/23: Continue current tx. Initiate regime 07/16. 07/17/23: Continue to encourage treatment. 07/18/23: Add prn Zyprexa IM if she refuses HS dosing 07/19: Continue current management and treatment plan. 07/20: Continue current management and treatment plan. 07/22: Continue tx. 07/23: Continue tx 07/24: Encourage milieu participation 07/26/23 continues too labile to interact with others- 07/27/23 - CTP encourage treatment 07/27/22 Continue tx plan; encourge meds as approved by HCP and court 07/29/23 schedule olanzepine discontinued after on hold for several days; awaiting invega sustenna to alleviate some of the psychosis in hopes patient more engageable and able to participate in her treatment; PO meds still ordered and should be offered with statement that they are court ordered and approved by HCP. 07/30/23 pt showing slight improvement- continue treatment plan 07/31/23 continue tx plan 08/01/23 continue tx plan 08/01 -Intermittently angry and irritable. Said hello to director underwriter sales but then when director underwriter sales asked how she was doing said none of your business. -Made swiping motion as if to scratch towards several staff, saying it was a curse -Yelled at peer today due to disorganized thought that person should not be in group room; yell that another peer who was going into the community refrigerator since patient thinks that the refrigerator is her property; able to be redirected 08/02 screamed at director underwriter sales and refused to enage. 08/03 staff agree Patient seems to be increasingly disorganized, walking briskly down the calle and yelling at peers, staff, making angry accusatory remarks and frightening and provoking some patients, causing some patients to become angry response. Will not engage with director underwriter sales. -patient on Invega Sustenna however behaviors are problematic, upsetting and sometimes scary to both peers and staff. Patient psychotic illness has gone untreated for quite some time and it seems likely she will need p.o. to overlap long-acting medication. Bank Sales [employer] Manager reached out to patient's healthcare proxy Brit Elder and left message to discuss treatment 08/06/23- Continue tx. Pt today able to reach out and initiate discussion. Benztropine 1 mg tid prn EPS 08/07/23- Continue tx. 08/12/23: Diagnostics 08/13/23. 08/16: continue current management and treatment plan. 08/23/23 improving adls and med compliance- but picks and chooses who she will interact with 08/26/23- Continue tx- attempt diagnostics again this week. 08/29/23- Continue to attempt to get pt involved in discharge planning and daily routine expectations. 08/31/23- Continue to attempt education regarding intrusive behaviors, reality testing 09/01/23- Depakote ER 500 mg HS Increase Olanzapine 20 mg bid 09/03/23: CBCD, CMP, A1c, Lipids, TSH 09/03 for first time, pt pleasant, cooperative with director underwriter sales. c/o of some body aches but says ibuprofin helping. Has been asking nursing for discharge and responding angrily, saying she owns the hospital when request (for dc) not granted. 09/04 continue tx 09/05 continue tx 09/06 continue tx 09/11/23- Some improvement, asking what she needs to do to go home and responding. Informed Consent: does not understand Reason for continued inpatient stay Substantial Risk for: rapid decompensation Time Spent With Patient Time: Total time managing care of this patient today ____ minutes.
[2023-09-11 18:00] VITALS: BP 132/81; PULSE 94; TEMP 36.4; O2SAT 99
[2023-09-12 08:00] VITALS: RESP 18
[2023-09-12] MEDS: Ibuprofen 600 MG TABLET PO ×3 (08:33→20:29)
[2023-09-12] MEDS: OLANZapine ODT 10 MG TAB.RAPDIS 20 MG TRANSLINGU ×2 (08:33→20:25)
--- NOTE | 2023-09-12 15:44 | HO.PSYCHPN ---
Subjective Subjective Date of Service: 09/12/23 Reason For Visit: Schizoaffective disorder Subjective Notes: Conditional Voluntary Healthcare Proxy: Yes Guardianship: No Medical Problems Affecting Mental Status: No Interim History: Team reports residential team is preparing to discuss beginning regular visits with pt to prepare for discharge. Pt doing laundry today. Received her care supplies, states she will shower and wash her hair today. Visable on the unit, listening to music. No instances of behavioral dyscontrol. Medication Compliance: Yes Side effects from medications: No Attending Groups: No Review of Systems Acute medical concerns: No Medical Review of Systems: unchanged Review of Systems Review of Systems Yes all other systems are reviewed and are negative Mental Status Exam Mental Status Exam Patient Appearance: Disheveled Patient Orientation: Person and Place Level of Consciousness: Alert Patient Behavior: Talkative Mood Description: Labile Affect Description: Labile Patient Cognition Impaired: Yes Ability to Follow Directions: Good Speech Pattern: Spontaneous Speech Memory Description: Remote Impaired Hallucinations: None Delusions: Not Present Thought Process: Distracted Thought Content: positive for Flight of Ideas and positive for Circumstantial Judgement: Poor Diagnostics Vital Signs (24Hr): Vital Signs - 24 hr 09/11/23 18:00 09/12/23 08:00 Temperature 97.6 F Pulse Rate 94 Respiratory Rate 18 Blood Pressure 132/81 Pulse Oximetry 99 Oxygen Delivery Method Room Air BMI result Body Mass Index 34.1 Labs 06/25/23 17:59 06/25/23 17:59 Medications Medications Current Medications Al Hydroxide/Mg Hydroxide (Magnesium Hydrox/Alum Hydrox 30 Ml Oral.Susp) 30 ml PO Q6H PRN PRN Reason: Heartburn/Nausea Albuterol Sulfate (Albuterol Sulfate 90 Mcg 8 Gm Inhaler) 2 puff INHALE Q4H PRN PRN Reason: Wheezing Benztropine Mesylate (Benztropine Mesylate 1 Mg Tablet) 1 mg PO TID PRN PRN Reason: Extrapyramidal Effects Divalproex Sodium (Divalproex Sodium Er 500 Mg Tab.Er.24h) 500 mg PO BEDTIME [facility] Last Admin: 09/12/23 00:17 Dose: Not Given Duloxetine HCl (Duloxetine Hcl 20 Mg Capsule.Dr) 40 mg PO DAILY [facility] Last Admin: 09/12/23 09:39 Dose: Not Given Hydroxyzine HCl (Hydroxyzine Hcl 25 Mg Tablet) 25 mg PO Q6H PRN PRN Reason: Anxiety Ibuprofen (Ibuprofen 600 Mg Tablet) 600 mg PO Q4H PRN PRN Reason: moderate to severe pain Last Admin: 09/12/23 12:19 Dose: 600 mg Lorazepam (Lorazepam 0.5 Mg Tablet) 0.5 mg PO BID [facility] Last Admin: 09/12/23 09:39 Dose: Not Given Magnesium Hydroxide (Milk Of Magnesia 30 Ml Oral.Susp) 30 ml PO DAILY PRN PRN Reason: Constipation Metformin HCl (Metformin Hcl 500 Mg Tablet) 500 mg PO BID [facility] Last Admin: 09/12/23 09:39 Dose: Not Given Metronidazole (Metronidazole 0.75 % Gel 45 Gm Tube) 1 appl TOPICAL DAILY [facility] Last Admin: 09/12/23 09:39 Dose: Not Given Multivitamins/Vitamin C (Multivitamin Tablet) 1 tab PO DAILY [facility] Last Admin: 09/12/23 09:39 Dose: Not Given Nicotine Polacrilex (Nicotine Polacrilex Lozenge 2 Mg Lozenge) 2 mg BUCCAL Q2H PRN PRN Reason: Nicotine Cravings Olanzapine (Olanzapine Odt 10 Mg Tab.Rapdis) 10 mg TRANSLINGU DAILY PRN PRN Reason: Psychosis Last Admin: 08/04/23 17:34 Dose: 10 mg Olanzapine (Olanzapine 10 Mg Vial) 10 mg IM BID PRN PRN Reason: if refuses PO Zydis Last Admin: 08/13/23 09:17 Dose: 10 mg Olanzapine (Olanzapine Odt 10 Mg Tab.Rapdis) 20 mg TRANSLINGU BID [facility] Last Admin: 09/12/23 08:33 Dose: 20 mg Paliperidone Palmitate (Paliperidone Palmitate 234 Mg/1.5 Ml Syringe) 234 mg IM Q30D [facility] Last Admin: 08/21/23 12:39 Dose: 234 mg Trazodone HCl (Trazodone Hcl 50 Mg Tablet) 50 mg PO BEDTIME MRX1 PRN PRN Reason: Insomnia Vitamin D (Cholecalciferol (Vitamin D3) 10 Mcg Tablet) 10 mcg PO DAILY [facility] Last Admin: 09/12/23 09:38 Dose: Not Given Allergies Allergies Allergy/AdvReac Type Severity Reaction Status Date / Time acetaminophen [From TYLENOL] Allergy Intermediate HIVES Verified 08/28/22 09:48 meperidine [From Demerol] Allergy Unknown Verified 08/28/22 09:48 Assessment & Plan Assessment & Plan (1) Schizoaffective disorder: Qualifiers: Schizoaffective disorder type: bipolar Qualified Code(s): F25.0 - Schizoaffective disorder, bipolar type Status: Acute Code(s): F25.9 - Schizoaffective disorder, unspecified Assessment and Plan: Presents with decompensation of schizoaffective disorder, while in group living environment. Not adherence appears to be a factor. Patient not engaging with interview, evaluation or adherent with medications ie declining same. Unable to care for self. Being held on a Section 12 that will on 07/02/23. In the meantime will try and establish report and encourage medication adherence. Plan 06/29: encourage med adherence. 07/01/23: Ensure tid Will file Section VII on 07/02/23. 07/02/23: HCP activated today. Martine Elder is willing to serve in this role. [phone]. 07/03/23: Encourage treatment compliance 07/04/23 Encourage treatment compliance, begin process of validating HCP with the courts in order to provide pt with psychopharmacology options. 07/05/23 Encourage treatment. 07/07 remains disorganized in speech and behavior; refusing meds, paranoid -continue process of affirming HCP 07/08- Continue current plan. 07/09 continue current treatment plan 07/11/23 continue current treatment plan 07/12: Continue current regimen and plans 07/13: Continue current regimen and plans 07/14: Continue current plans and regimen 07/15/23: Continue current tx. Initiate regime 07/16. 07/17/23: Continue to encourage treatment. 07/18/23: Add prn Zyprexa IM if she refuses HS dosing 07/19: Continue current management and treatment plan. 07/20: Continue current management and treatment plan. 07/22: Continue tx. 07/23: Continue tx 07/24: Encourage milieu participation 07/26/23 continues too labile to interact with others- 07/27/23 - CTP encourage treatment 07/27/22 Continue tx plan; encourge meds as approved by HCP and court 07/29/23 schedule olanzepine discontinued after on hold for several days; awaiting invega sustenna to alleviate some of the psychosis in hopes patient more engageable and able to participate in her treatment; PO meds still ordered and should be offered with statement that they are court ordered and approved by HCP. 07/30/23 pt showing slight improvement- continue treatment plan 07/31/23 continue tx plan 08/01/23 continue tx plan 08/01 -Intermittently angry and irritable. Said hello to va underwriter but then when va underwriter asked how she was doing said none of your business. -Made swiping motion as if to scratch towards several staff, saying it was a curse -Yelled at peer today due to disorganized thought that person should not be in group room; yell that another peer who was going into the community refrigerator since patient thinks that the refrigerator is her property; able to be redirected 08/02 screamed at va underwriter and refused to enage. 08/03 staff agree Patient seems to be increasingly disorganized, walking briskly down the calle and yelling at peers, staff, making angry accusatory remarks and frightening and provoking some patients, causing some patients to become angry response. Will not engage with va underwriter. -patient on Invega Sustenna however behaviors are problematic, upsetting and sometimes scary to both peers and staff. Patient psychotic illness has gone untreated for quite some time and it seems likely she will need p.o. to overlap long-acting medication. Plate Slitter [employer] Inspector reached out to patient's healthcare proxy Brit Elder and left message to discuss treatment 08/06/23- Continue tx. Pt today able to reach out and initiate discussion. Benztropine 1 mg tid prn EPS 08/07/23- Continue tx. 08/12/23: Diagnostics 08/13/23. 08/16: continue current management and treatment plan. 08/23/23 improving adls and med compliance- but picks and chooses who she will interact with 08/26/23- Continue tx- attempt diagnostics again this week. 08/29/23- Continue to attempt to get pt involved in discharge planning and daily routine expectations. 08/31/23- Continue to attempt education regarding intrusive behaviors, reality testing 09/01/23- Depakote ER 500 mg HS Increase Olanzapine 20 mg bid 09/03/23: CBCD, CMP, A1c, Lipids, TSH 09/03 for first time, pt pleasant, cooperative with va underwriter. c/o of some body aches but says ibuprofin helping. Has been asking nursing for discharge and responding angrily, saying she owns the hospital when request (for dc) not granted. 09/04 continue tx 09/05 continue tx 09/06 continue tx 09/12/23 Continue plan of care Informed Consent: does not understand Reason for continued inpatient stay Substantial Risk for: rapid decompensation Time Spent With Patient Time: Total time managing care of this patient today ____ minutes.
[2023-09-13] MEDS: Ibuprofen 600 MG TABLET PO ×3 (04:58→18:31)
[2023-09-13 08:00] VITALS: RESP 18
[2023-09-13] MEDS: OLANZapine ODT 10 MG TAB.RAPDIS 20 MG TRANSLINGU ×2 (08:36→21:22)
--- NOTE | 2023-09-13 10:25 | P.PNPSI_ITS ---
Subjective Subjective Date of Service: 09/13/23 Reason For Visit: Schizoaffective disorder Interim History: Met with patient; discussed with team; reviewed chart Patient pleasant today; friendly with account underwriter. No complaints, walking up and down the calle singing to herself. When account underwriter was talking to another peer that she knows from the community, patient came up and encouraged this peer who was having a hard time. Mental Status Exam Mental Status Exam Patient Appearance: Disheveled Patient Orientation: Person and Place Level of Consciousness: Awake and Alert Patient Behavior: Talkative and Pacing Behavior Comments: More pleasant Mood Description: Labile Affect Description: Labile Patient Cognition Impaired: Yes Ability to Follow Directions: Fair Speech Pattern: Spontaneous Speech Memory Description: Remote Impaired Hallucinations: None Delusions: Not Present (none expressed anyway) Thought Process: Distracted and Goal Oriented Thought Content: positive for Circumstantial Judgement: Poor Diagnostics Vital Signs (24Hr): Vital Signs - 24 hr 09/13/23 08:00 Respiratory Rate 18 BMI result Body Mass Index 34.1 Labs 06/25/23 17:59 06/25/23 17:59 Medications Medications Current Medications Al Hydroxide/Mg Hydroxide (Magnesium Hydrox/Alum Hydrox 30 Ml Oral.Susp) 30 ml PO Q6H PRN PRN Reason: Heartburn/Nausea Albuterol Sulfate (Albuterol Sulfate 90 Mcg 8 Gm Inhaler) 2 puff INHALE Q4H PRN PRN Reason: Wheezing Benztropine Mesylate (Benztropine Mesylate 1 Mg Tablet) 1 mg PO TID PRN PRN Reason: Extrapyramidal Effects Divalproex Sodium (Divalproex Sodium Er 500 Mg Tab.Er.24h) 500 mg PO BEDTIME [facility] Last Admin: 09/12/23 21:17 Dose: Not Given Duloxetine HCl (Duloxetine Hcl 20 Mg Capsule.Dr) 40 mg PO DAILY [facility] Last Admin: 09/13/23 08:39 Dose: Not Given Hydroxyzine HCl (Hydroxyzine Hcl 25 Mg Tablet) 25 mg PO Q6H PRN PRN Reason: Anxiety Ibuprofen (Ibuprofen 600 Mg Tablet) 600 mg PO Q4H PRN PRN Reason: moderate to severe pain Last Admin: 09/13/23 04:58 Dose: 600 mg Lorazepam (Lorazepam 0.5 Mg Tablet) 0.5 mg PO BID [facility] Last Admin: 04/20/24 08:39 Dose: Not Given Magnesium Hydroxide (Milk Of Magnesia 30 Ml Oral.Susp) 30 ml PO DAILY PRN PRN Reason: Constipation Metformin HCl (Metformin Hcl 500 Mg Tablet) 500 mg PO BID [facility] Last Admin: 09/13/23 08:39 Dose: Not Given Metronidazole (Metronidazole 0.75 % Gel 45 Gm Tube) 1 appl TOPICAL DAILY [facility] Last Admin: 09/13/23 08:39 Dose: Not Given Multivitamins/Vitamin C (Multivitamin Tablet) 1 tab PO DAILY [facility] Last Admin: 09/13/23 08:39 Dose: Not Given Nicotine Polacrilex (Nicotine Polacrilex Lozenge 2 Mg Lozenge) 2 mg BUCCAL Q2H PRN PRN Reason: Nicotine Cravings Olanzapine (Olanzapine Odt 10 Mg Tab.Rapdis) 10 mg TRANSLINGU DAILY PRN PRN Reason: Psychosis Last Admin: 08/04/23 17:34 Dose: 10 mg Olanzapine (Olanzapine 10 Mg Vial) 10 mg IM BID PRN PRN Reason: if refuses PO Zydis Last Admin: 08/13/23 09:17 Dose: 10 mg Olanzapine (Olanzapine Odt 10 Mg Tab.Rapdis) 20 mg TRANSLINGU BID [facility] Last Admin: 09/13/23 08:36 Dose: 20 mg Paliperidone Palmitate (Paliperidone Palmitate 234 Mg/1.5 Ml Syringe) 234 mg IM Q30D [facility] Last Admin: 08/21/23 12:39 Dose: 234 mg Trazodone HCl (Trazodone Hcl 50 Mg Tablet) 50 mg PO BEDTIME MRX1 PRN PRN Reason: Insomnia Vitamin D (Cholecalciferol (Vitamin D3) 10 Mcg Tablet) 10 mcg PO DAILY [facility] Last Admin: 09/13/23 08:39 Dose: Not Given Allergies Allergies Allergy/AdvReac Type Severity Reaction Status Date / Time acetaminophen [From TYLENOL] Allergy Intermediate HIVES Verified 08/28/22 09:48 meperidine [From Demerol] Allergy Unknown Verified 08/28/22 09:48 Assessment & Plan Assessment & Plan (1) Schizoaffective disorder: Qualifiers: Schizoaffective disorder type: bipolar Qualified Code(s): F25.0 - Schizoaffective disorder, bipolar type Status: Acute Code(s): F25.9 - Schizoaffective disorder, unspecified Assessment and Plan: Presents with decompensation of schizoaffective disorder, while in group living environment. Not adherence appears to be a factor. Patient not engaging with interview, evaluation or adherent with medications ie declining same. Unable to care for self. Being held on a Section 12 that will on 07/02/23. In the meantime will try and establish report and encourage medication adherence. Plan 06/29: encourage med adherence. 07/01/23: Ensure tid Will file Section VII on 07/02/23. 07/02/23: HCP activated today. Martine Elder is willing to serve in this role. [phone]. 07/03/23: Encourage treatment compliance 07/04/23 Encourage treatment compliance, begin process of validating HCP with the courts in order to provide pt with psychopharmacology options. 07/05/23 Encourage treatment. 07/07 remains disorganized in speech and behavior; refusing meds, paranoid -continue process of affirming HCP 07/08- Continue current plan. 07/09 continue current treatment plan 07/11/23 continue current treatment plan 07/12: Continue current regimen and plans 07/13: Continue current regimen and plans 07/14: Continue current plans and regimen 07/15/23: Continue current tx. Initiate regime 07/16. 07/17/23: Continue to encourage treatment. 07/18/23: Add prn Zyprexa IM if she refuses HS dosing 07/19: Continue current management and treatment plan. 07/20: Continue current management and treatment plan. 07/22: Continue tx. 07/23: Continue tx 07/24: Encourage milieu participation 07/26/23 continues too labile to interact with others- 07/27/23 - CTP encourage treatment 07/27/22 Continue tx plan; encourge meds as approved by HCP and court 07/29/23 schedule olanzepine discontinued after on hold for several days; awaiting invega sustenna to alleviate some of the psychosis in hopes patient more engageable and able to participate in her treatment; PO meds still ordered and should be offered with statement that they are court ordered and approved by HCP. 07/30/23 pt showing slight improvement- continue treatment plan 07/31/23 continue tx plan 08/01/23 continue tx plan 08/01 -Intermittently angry and irritable. Said hello to account underwriter but then when account underwriter asked how she was doing said none of your business. -Made swiping motion as if to scratch towards several staff, saying it was a curse -Yelled at peer today due to disorganized thought that person should not be in group room; yell that another peer who was going into the community refrigerator since patient thinks that the refrigerator is her property; able to be redirected 08/02 screamed at account underwriter and refused to enage. 08/03 staff agree Patient seems to be increasingly disorganized, walking briskly down the calle and yelling at peers, staff, making angry accusatory remarks and frightening and provoking some patients, causing some patients to become angry response. Will not engage with account underwriter. -patient on Invega Sustenna however behaviors are problematic, upsetting and sometimes scary to both peers and staff. Patient psychotic illness has gone untreated for quite some time and it seems likely she will need p.o. to overlap long-acting medication. Radioisotope Technologist reached out to patient's healthcare proxy Brit Elder and left message to discuss treatment 08/06/23- Continue tx. Pt today able to reach out and initiate discussion. Benztropine 1 mg tid prn EPS 08/07/23- Continue tx. 08/12/23: Diagnostics 08/13/23. 08/16: continue current management and treatment plan. 08/23/23 improving adls and med compliance- but picks and chooses who she will interact with 08/26/23- Continue tx- attempt diagnostics again this week. 08/29/23- Continue to attempt to get pt involved in discharge planning and daily routine expectations. 08/31/23- Continue to attempt education regarding intrusive behaviors, reality testing 09/01/23- Depakote ER 500 mg HS Increase Olanzapine 20 mg bid 09/03/23: CBCD, CMP, A1c, Lipids, TSH 09/03 for first time, pt pleasant, cooperative with account underwriter. c/o of some body aches but says ibuprofin helping. Has been asking nursing for discharge and responding angrily, saying she owns the hospital when request (for dc) not granted. 09/04 continue tx 09/05 continue tx 09/06 continue tx 09/12/23 Continue plan of care 09/12 Patient pleasant today; friendly with account underwriter. No complaints, walking up and down the calle singing to herself. When account underwriter was talking to another peer that she knows from the community, patient came up and encouraged this peer who was having a hard time. Reason for continued inpatient stay Substantial Risk for: inability to function Time Spent With Patient Time: Total time managing care of this patient today ____ minutes.
[2023-09-14] MEDS: Ibuprofen 600 MG TABLET PO ×2 (05:07→21:36)
[2023-09-14 08:00] VITALS: RESP 18
[2023-09-14] MEDS: OLANZapine ODT 10 MG TAB.RAPDIS 20 MG TRANSLINGU ×2 (08:55→21:35)
--- NOTE | 2023-09-14 15:21 | HO.PSYCHPN ---
Subjective Subjective Date of Service: 09/14/23 Reason For Visit: Schizoaffective disorder Interim History: Met with patient; discussed with team Patient calm, pleasant on approach. No complaints, asked for a glass of gin drove which typewriter aligner brought. Patient allowed cleaning person to clean her room and even thanked the person which is improvement Mental Status Exam Mental Status Exam Patient Appearance: Disheveled Patient Orientation: Person and Place Level of Consciousness: Awake and Alert Patient Behavior: Talkative and Pacing Behavior Comments: More pleasant Mood Description: Labile Affect Description: Labile Patient Cognition Impaired: Yes Ability to Follow Directions: Fair Speech Pattern: Spontaneous Speech Memory Description: Remote Impaired Hallucinations: None Delusions: Not Present (none expressed anyway) Thought Process: Distracted and Goal Oriented Thought Content: positive for Circumstantial Judgement: Poor Diagnostics Vital Signs (24Hr): Vital Signs - 24 hr 09/14/23 08:00 Respiratory Rate 18 BMI result Body Mass Index 34.1 Labs 06/25/23 17:59 06/25/23 17:59 Medications Medications Current Medications Al Hydroxide/Mg Hydroxide (Magnesium Hydrox/Alum Hydrox 30 Ml Oral.Susp) 30 ml PO Q6H PRN PRN Reason: Heartburn/Nausea Albuterol Sulfate (Albuterol Sulfate 90 Mcg 8 Gm Inhaler) 2 puff INHALE Q4H PRN PRN Reason: Wheezing Benztropine Mesylate (Benztropine Mesylate 1 Mg Tablet) 1 mg PO TID PRN PRN Reason: Extrapyramidal Effects Divalproex Sodium (Divalproex Sodium Er 500 Mg Tab.Er.24h) 500 mg PO BEDTIME [facility] Last Admin: 09/13/23 22:33 Dose: Not Given Duloxetine HCl (Duloxetine Hcl 20 Mg Capsule.Dr) 40 mg PO DAILY [facility] Last Admin: 09/14/23 08:22 Dose: Not Given Hydroxyzine HCl (Hydroxyzine Hcl 25 Mg Tablet) 25 mg PO Q6H PRN PRN Reason: Anxiety Ibuprofen (Ibuprofen 600 Mg Tablet) 600 mg PO Q4H PRN PRN Reason: moderate to severe pain Last Admin: 09/14/23 05:07 Dose: 600 mg Lorazepam (Lorazepam 0.5 Mg Tablet) 0.5 mg PO BID [facility] Last Admin: 09/14/23 08:22 Dose: Not Given Magnesium Hydroxide (Milk Of Magnesia 30 Ml Oral.Susp) 30 ml PO DAILY PRN PRN Reason: Constipation Metformin HCl (Metformin Hcl 500 Mg Tablet) 500 mg PO BID [facility] Last Admin: 09/14/23 08:22 Dose: Not Given Metronidazole (Metronidazole 0.75 % Gel 45 Gm Tube) 1 appl TOPICAL DAILY [facility] Last Admin: 09/14/23 08:22 Dose: Not Given Multivitamins/Vitamin C (Multivitamin Tablet) 1 tab PO DAILY [facility] Last Admin: 09/14/23 08:23 Dose: Not Given Nicotine Polacrilex (Nicotine Polacrilex Lozenge 2 Mg Lozenge) 2 mg BUCCAL Q2H PRN PRN Reason: Nicotine Cravings Olanzapine (Olanzapine Odt 10 Mg Tab.Rapdis) 10 mg TRANSLINGU DAILY PRN PRN Reason: Psychosis Last Admin: 08/04/23 17:34 Dose: 10 mg Olanzapine (Olanzapine 10 Mg Vial) 10 mg IM BID PRN PRN Reason: if refuses PO Zydis Last Admin: 08/13/23 09:17 Dose: 10 mg Olanzapine (Olanzapine Odt 10 Mg Tab.Rapdis) 20 mg TRANSLINGU BID [facility] Last Admin: 09/14/23 08:55 Dose: 20 mg Paliperidone Palmitate (Paliperidone Palmitate 234 Mg/1.5 Ml Syringe) 234 mg IM Q30D [facility] Last Admin: 08/21/23 12:39 Dose: 234 mg Trazodone HCl (Trazodone Hcl 50 Mg Tablet) 50 mg PO BEDTIME MRX1 PRN PRN Reason: Insomnia Vitamin D (Cholecalciferol (Vitamin D3) 10 Mcg Tablet) 10 mcg PO DAILY [facility] Last Admin: 09/14/23 08:22 Dose: Not Given Allergies Allergies Allergy/AdvReac Type Severity Reaction Status Date / Time acetaminophen [From TYLENOL] Allergy Intermediate HIVES Verified 08/28/22 09:48 meperidine [From Demerol] Allergy Unknown Verified 08/28/22 09:48 Assessment & Plan Assessment & Plan (1) Schizoaffective disorder: Qualifiers: Schizoaffective disorder type: bipolar Qualified Code(s): F25.0 - Schizoaffective disorder, bipolar type Status: Acute Code(s): F25.9 - Schizoaffective disorder, unspecified Assessment and Plan: Presents with decompensation of schizoaffective disorder, while in group living environment. Not adherence appears to be a factor. Patient not engaging with interview, evaluation or adherent with medications ie declining same. Unable to care for self. Being held on a Section 12 that will on 07/02/23. In the meantime will try and establish report and encourage medication adherence. Plan 06/29: encourage med adherence. 07/01/23: Ensure tid Will file Section VII on 07/02/23. 07/02/23: HCP activated today. Martine Elder is willing to serve in this role. [phone]. 07/03/23: Encourage treatment compliance 07/04/23 Encourage treatment compliance, begin process of validating HCP with the courts in order to provide pt with psychopharmacology options. 07/05/23 Encourage treatment. 07/07 remains disorganized in speech and behavior; refusing meds, paranoid -continue process of affirming HCP 07/08- Continue current plan. 07/09 continue current treatment plan 07/11/23 continue current treatment plan 07/12: Continue current regimen and plans 07/13: Continue current regimen and plans 07/14: Continue current plans and regimen 07/15/23: Continue current tx. Initiate regime 07/16. 07/17/23: Continue to encourage treatment. 07/18/23: Add prn Zyprexa IM if she refuses HS dosing 07/19: Continue current management and treatment plan. 07/20: Continue current management and treatment plan. 07/22: Continue tx. 07/23: Continue tx 07/24: Encourage milieu participation 07/26/23 continues too labile to interact with others- 07/27/23 - CTP encourage treatment 07/27/22 Continue tx plan; encourge meds as approved by HCP and court 07/29/23 schedule olanzepine discontinued after on hold for several days; awaiting invega sustenna to alleviate some of the psychosis in hopes patient more engageable and able to participate in her treatment; PO meds still ordered and should be offered with statement that they are court ordered and approved by HCP. 07/30/23 pt showing slight improvement- continue treatment plan 07/31/23 continue tx plan 08/01/23 continue tx plan 08/01 -Intermittently angry and irritable. Said hello to typewriter aligner but then when typewriter aligner asked how she was doing said none of your business. -Made swiping motion as if to scratch towards several staff, saying it was a curse -Yelled at peer today due to disorganized thought that person should not be in group room; yell that another peer who was going into the community refrigerator since patient thinks that the refrigerator is her property; able to be redirected 08/02 screamed at typewriter aligner and refused to enage. 08/03 staff agree Patient seems to be increasingly disorganized, walking briskly down the calle and yelling at peers, staff, making angry accusatory remarks and frightening and provoking some patients, causing some patients to become angry response. Will not engage with typewriter aligner. -patient on Invega Sustenna however behaviors are problematic, upsetting and sometimes scary to both peers and staff. Patient psychotic illness has gone untreated for quite some time and it seems likely she will need p.o. to overlap long-acting medication. Disability Specialist reached out to patient's healthcare proxy Brit Elder and left message to discuss treatment 08/06/23- Continue tx. Pt today able to reach out and initiate discussion. Benztropine 1 mg tid prn EPS 08/07/23- Continue tx. 08/12/23: Diagnostics 08/13/23. 08/16: continue current management and treatment plan. 08/23/23 improving adls and med compliance- but picks and chooses who she will interact with 08/26/23- Continue tx- attempt diagnostics again this week. 08/29/23- Continue to attempt to get pt involved in discharge planning and daily routine expectations. 08/31/23- Continue to attempt education regarding intrusive behaviors, reality testing 09/01/23- Depakote ER 500 mg HS Increase Olanzapine 20 mg bid 09/03/23: CBCD, CMP, A1c, Lipids, TSH 09/03 for first time, pt pleasant, cooperative with typewriter aligner. c/o of some body aches but says ibuprofin helping. Has been asking nursing for discharge and responding angrily, saying she owns the hospital when request (for dc) not granted. 09/04 continue tx 09/05 continue tx 09/06 continue tx 09/12/23 Continue plan of care 09/12 Patient pleasant today; friendly with typewriter aligner. No complaints, walking up and down the calle singing to herself. When typewriter aligner was talking to another peer that she knows from the community, patient came up and encouraged this peer who was having a hard time. 09/13 remains much more pleasant and approachable, calm. dry skin vs psoriasis patches on face; will order lotion Patient educated on: diagnosis Informed Consent: does not understand Reason for continued inpatient stay Substantial Risk for: inability to function Time Spent With Patient Time: Total time managing care of this patient today ____ minutes.
[2023-09-14] MEDS: Mineral Oil/Petrolatum,White 106 GM Tube 1 APPL TOPICAL (19:49)
[2023-09-15] MEDS: OLANZapine ODT 10 MG TAB.RAPDIS 20 MG TRANSLINGU ×2 (07:46→20:07)
[2023-09-15] MEDS: Ibuprofen 600 MG TABLET PO ×3 (07:46→20:07)
--- NOTE | 2023-09-15 10:57 | P.PNPSI_ITS ---
Subjective Subjective Date of Service: 09/15/23 Reason For Visit: Schizoaffective disorder Subjective Notes: Conditional Voluntary Healthcare Proxy: Yes Guardianship: No Medical Problems Affecting Mental Status: No Interim History: [facility] to [facility]- Washed, braided her hair today. Calmer, asks about going home. Discussed residential team beginning meetings. She agrees. Walking with headphones on, using the phone, decrease in labile agitation, approachable Medication Compliance: Yes Side effects from medications: No Attending Groups: No Review of Systems Acute medical concerns: No Medical Review of Systems: unchanged Review of Systems Review of Systems Yes all other systems are reviewed and are negative Mental Status Exam Mental Status Exam Patient Appearance: Disheveled Patient Orientation: Person and Place Level of Consciousness: Awake and Alert Patient Behavior: Talkative and Pacing Behavior Comments: More pleasant Mood Description: Labile Affect Description: Labile Patient Cognition Impaired: Yes Ability to Follow Directions: Fair Speech Pattern: Spontaneous Speech Memory Description: Remote Impaired Hallucinations: None Delusions: Not Present (none expressed anyway) Thought Process: Distracted and Goal Oriented Thought Content: positive for Circumstantial Judgement: Poor Diagnostics Vital Signs (24Hr): BMI result Body Mass Index 34.1 Labs 06/25/23 17:59 06/25/23 17:59 Medications Medications Current Medications Al Hydroxide/Mg Hydroxide (Magnesium Hydrox/Alum Hydrox 30 Ml Oral.Susp) 30 ml PO Q6H PRN PRN Reason: Heartburn/Nausea Albuterol Sulfate (Albuterol Sulfate 90 Mcg 8 Gm Inhaler) 2 puff INHALE Q4H PRN PRN Reason: Wheezing Benztropine Mesylate (Benztropine Mesylate 1 Mg Tablet) 1 mg PO TID PRN PRN Reason: Extrapyramidal Effects Divalproex Sodium (Divalproex Sodium Er 500 Mg Tab.Er.24h) 500 mg PO BEDTIME [facility] Last Admin: 09/14/23 21:52 Dose: Not Given Duloxetine HCl (Duloxetine Hcl 20 Mg Capsule.Dr) 40 mg PO DAILY [facility] Last Admin: 09/15/23 08:06 Dose: Not Given Hydroxyzine HCl (Hydroxyzine Hcl 25 Mg Tablet) 25 mg PO Q6H PRN PRN Reason: Anxiety Ibuprofen (Ibuprofen 600 Mg Tablet) 600 mg PO Q4H PRN PRN Reason: moderate to severe pain Last Admin: 09/15/23 07:46 Dose: 600 mg Lorazepam (Lorazepam 0.5 Mg Tablet) 0.5 mg PO BID [facility] Last Admin: 09/15/23 08:06 Dose: Not Given Magnesium Hydroxide (Milk Of Magnesia 30 Ml Oral.Susp) 30 ml PO DAILY PRN PRN Reason: Constipation Metformin HCl (Metformin Hcl 500 Mg Tablet) 500 mg PO BID [facility] Last Admin: 09/15/23 08:06 Dose: Not Given Metronidazole (Metronidazole 0.75 % Gel 45 Gm Tube) 1 appl TOPICAL DAILY [facility] Last Admin: 09/15/23 08:07 Dose: Not Given Multi-Ingred Cream/Lotion/Oil/Oint (Mineral Oil/Petrolatum,White 106 Gm Tube) 1 appl TOPICAL BID [facility]; Protocol Last Admin: 09/15/23 08:07 Dose: Not Given Multivitamins/Vitamin C (Multivitamin Tablet) 1 tab PO DAILY [facility] Last Admin: 09/15/23 08:07 Dose: Not Given Nicotine Polacrilex (Nicotine Polacrilex Lozenge 2 Mg Lozenge) 2 mg BUCCAL Q2H PRN PRN Reason: Nicotine Cravings Olanzapine (Olanzapine Odt 10 Mg Tab.Rapdis) 10 mg TRANSLINGU DAILY PRN PRN Reason: Psychosis Last Admin: 08/04/23 17:34 Dose: 10 mg Olanzapine (Olanzapine 10 Mg Vial) 10 mg IM BID PRN PRN Reason: if refuses PO Zydis Last Admin: 08/13/23 09:17 Dose: 10 mg Olanzapine (Olanzapine Odt 10 Mg Tab.Rapdis) 20 mg TRANSLINGU BID [facility] Last Admin: 09/15/23 07:46 Dose: 20 mg Paliperidone Palmitate (Paliperidone Palmitate 234 Mg/1.5 Ml Syringe) 234 mg IM Q30D [facility] Last Admin: 08/21/23 12:39 Dose: 234 mg Trazodone HCl (Trazodone Hcl 50 Mg Tablet) 50 mg PO BEDTIME MRX1 PRN PRN Reason: Insomnia Vitamin D (Cholecalciferol (Vitamin D3) 10 Mcg Tablet) 10 mcg PO DAILY [facility] Last Admin: 09/15/23 08:06 Dose: Not Given Allergies Allergies Allergy/AdvReac Type Severity Reaction Status Date / Time acetaminophen [From TYLENOL] Allergy Intermediate HIVES Verified 08/28/22 09:48 meperidine [From Demerol] Allergy Unknown Verified 08/28/22 09:48 Assessment & Plan Assessment & Plan (1) Schizoaffective disorder: Qualifiers: Schizoaffective disorder type: bipolar Qualified Code(s): F25.0 - Schizoaffective disorder, bipolar type Status: Acute Code(s): F25.9 - Schizoaffective disorder, unspecified Assessment and Plan: Presents with decompensation of schizoaffective disorder, while in group living environment. Not adherence appears to be a factor. Patient not engaging with interview, evaluation or adherent with medications ie declining same. Unable to care for self. Being held on a Section 12 that will on 07/02/23. In the meantime will try and establish report and encourage medication adherence. Plan 06/29: encourage med adherence. 07/01/23: Ensure tid Will file Section VII on 07/02/23. 07/02/23: HCP activated today. Martine Elder is willing to serve in this role. [phone]. 07/03/23: Encourage treatment compliance 07/04/23 Encourage treatment compliance, begin process of validating HCP with the courts in order to provide pt with psychopharmacology options. 07/05/23 Encourage treatment. 07/07 remains disorganized in speech and behavior; refusing meds, paranoid -continue process of affirming HCP 07/08- Continue current plan. 07/09 continue current treatment plan 07/11/23 continue current treatment plan 07/12: Continue current regimen and plans 07/13: Continue current regimen and plans 07/14: Continue current plans and regimen 07/15/23: Continue current tx. Initiate regime 07/16. 07/17/23: Continue to encourage treatment. 07/18/23: Add prn Zyprexa IM if she refuses HS dosing 07/19: Continue current management and treatment plan. 07/20: Continue current management and treatment plan. 07/22: Continue tx. 07/23: Continue tx 07/24: Encourage milieu participation 07/26/23 continues too labile to interact with others- 07/27/23 - CTP encourage treatment 07/27/22 Continue tx plan; encourge meds as approved by HCP and court 07/29/23 schedule olanzepine discontinued after on hold for several days; awaiting invega sustenna to alleviate some of the psychosis in hopes patient more engageable and able to participate in her treatment; PO meds still ordered and should be offered with statement that they are court ordered and approved by HCP. 07/30/23 pt showing slight improvement- continue treatment plan 07/31/23 continue tx plan 08/01/23 continue tx plan 08/01 -Intermittently angry and irritable. Said hello to financial underwriter but then when financial underwriter asked how she was doing said none of your business. -Made swiping motion as if to scratch towards several staff, saying it was a curse -Yelled at peer today due to disorganized thought that person should not be in group room; yell that another peer who was going into the community refrigerator since patient thinks that the refrigerator is her property; able to be redirected 08/02 screamed at financial underwriter and refused to enage. 08/03 staff agree Patient seems to be increasingly disorganized, walking briskly down the calle and yelling at peers, staff, making angry accusatory remarks and frightening and provoking some patients, causing some patients to become angry response. Will not engage with financial underwriter. -patient on Invega Sustenna however behaviors are problematic, upsetting and sometimes scary to both peers and staff. Patient psychotic illness has gone untreated for quite some time and it seems likely she will need p.o. to overlap long-acting medication. Pharmaceutical Botanist reached out to patient's healthcare proxy Brit Elder and left message to discuss treatment 08/06/23- Continue tx. Pt today able to reach out and initiate discussion. Benztropine 1 mg tid prn EPS 08/07/23- Continue tx. 08/12/23: Diagnostics 08/13/23. 08/16: continue current management and treatment plan. 08/23/23 improving adls and med compliance- but picks and chooses who she will interact with 08/26/23- Continue tx- attempt diagnostics again this week. 08/29/23- Continue to attempt to get pt involved in discharge planning and daily routine expectations. 08/31/23- Continue to attempt education regarding intrusive behaviors, reality testing 09/01/23- Depakote ER 500 mg HS Increase Olanzapine 20 mg bid 09/03/23: CBCD, CMP, A1c, Lipids, TSH 09/03 for first time, pt pleasant, cooperative with financial underwriter. c/o of some body aches but says ibuprofin helping. Has been asking nursing for discharge and responding angrily, saying she owns the hospital when request (for dc) not granted. 09/04 continue tx 09/05 continue tx 09/06 continue tx 09/12/23 Continue plan of care 09/12 Patient pleasant today; friendly with financial underwriter. No complaints, walking up and down the calle singing to herself. When financial underwriter was talking to another peer that she knows from the community, patient came up and encouraged this peer who was having a hard time. 09/13 remains much more pleasant and approachable, calm. dry skin vs psoriasis patches on face; will order lotion 09/14- Continue current regime and plan of care. Reason for continued inpatient stay Substantial Risk for: rapid decompensation Time Spent With Patient Time: Total time managing care of this patient today ____ minutes.
[2023-09-15 20:00] VITALS: BP 141/65; PULSE 91; RESP 16; TEMP 37.1; O2SAT 97
[2023-09-16] MEDS: Ibuprofen 600 MG TABLET PO ×3 (06:50→20:15)
[2023-09-16] MEDS: OLANZapine ODT 10 MG TAB.RAPDIS 20 MG TRANSLINGU ×2 (08:23→20:16)
--- NOTE | 2023-09-16 13:35 | HO.PSYCHPN ---
Subjective Subjective Date of Service: 09/16/23 Reason For Visit: Schizoaffective disorder Subjective Notes: Conditional Voluntary Healthcare Proxy: Yes Guardianship: No Medical Problems Affecting Mental Status: No Interim History: Sivan is working on ADL's, focused on discharge. Team will meet on 09/17 1pm with pt to begin assessment Less confrontation, lability today. Medication Compliance: Yes Side effects from medications: No Attending Groups: Intermittent Review of Systems Acute medical concerns: No Medical Review of Systems: unchanged Review of Systems Review of Systems Yes all other systems are reviewed and are negative Mental Status Exam Mental Status Exam Patient Appearance: Appropriate Patient Orientation: Person and Place Level of Consciousness: Awake and Alert Patient Behavior: Talkative and Pacing Behavior Comments: More pleasant Mood Description: Labile Affect Description: Labile Patient Cognition Impaired: Yes Ability to Follow Directions: Fair Speech Pattern: Spontaneous Speech Memory Description: Remote Impaired Hallucinations: None Delusions: Not Present (none expressed anyway) Thought Process: Distracted and Goal Oriented Thought Content: positive for Circumstantial Judgement: Fair Diagnostics Vital Signs (24Hr): Vital Signs - 24 hr 09/15/23 20:00 Temperature 98.7 F Pulse Rate 91 Respiratory Rate 16 Blood Pressure 141/65 H Pulse Oximetry 97 Oxygen Delivery Method Room Air BMI result Body Mass Index 34.1 Labs 06/25/23 17:59 06/25/23 17:59 Medications Medications Current Medications Al Hydroxide/Mg Hydroxide (Magnesium Hydrox/Alum Hydrox 30 Ml Oral.Susp) 30 ml PO Q6H PRN PRN Reason: Heartburn/Nausea Albuterol Sulfate (Albuterol Sulfate 90 Mcg 8 Gm Inhaler) 2 puff INHALE Q4H PRN PRN Reason: Wheezing Benztropine Mesylate (Benztropine Mesylate 1 Mg Tablet) 1 mg PO TID PRN PRN Reason: Extrapyramidal Effects Divalproex Sodium (Divalproex Sodium Er 500 Mg Tab.Er.24h) 500 mg PO BEDTIME [facility] Last Admin: 09/15/23 20:01 Dose: Not Given Duloxetine HCl (Duloxetine Hcl 20 Mg Capsule.Dr) 40 mg PO DAILY [facility] Last Admin: 09/15/23 08:06 Dose: Not Given Hydroxyzine HCl (Hydroxyzine Hcl 25 Mg Tablet) 25 mg PO Q6H PRN PRN Reason: Anxiety Ibuprofen (Ibuprofen 600 Mg Tablet) 600 mg PO Q4H PRN PRN Reason: moderate to severe pain Last Admin: 09/16/23 12:54 Dose: 600 mg Lorazepam (Lorazepam 0.5 Mg Tablet) 0.5 mg PO BID [facility] Last Admin: 09/15/23 20:01 Dose: Not Given Magnesium Hydroxide (Milk Of Magnesia 30 Ml Oral.Susp) 30 ml PO DAILY PRN PRN Reason: Constipation Metformin HCl (Metformin Hcl 500 Mg Tablet) 500 mg PO BID [facility] Last Admin: 09/15/23 20:01 Dose: Not Given Metronidazole (Metronidazole 0.75 % Gel 45 Gm Tube) 1 appl TOPICAL DAILY [facility] Last Admin: 09/15/23 08:07 Dose: Not Given Multi-Ingred Cream/Lotion/Oil/Oint (Mineral Oil/Petrolatum,White 106 Gm Tube) 1 appl TOPICAL BID [facility]; Protocol Last Admin: 09/15/23 20:02 Dose: Not Given Multivitamins/Vitamin C (Multivitamin Tablet) 1 tab PO DAILY [facility] Last Admin: 09/15/23 08:07 Dose: Not Given Nicotine Polacrilex (Nicotine Polacrilex Lozenge 2 Mg Lozenge) 2 mg BUCCAL Q2H PRN PRN Reason: Nicotine Cravings Olanzapine (Olanzapine Odt 10 Mg Tab.Rapdis) 10 mg TRANSLINGU DAILY PRN PRN Reason: Psychosis Last Admin: 08/04/23 17:34 Dose: 10 mg Olanzapine (Olanzapine 10 Mg Vial) 10 mg IM BID PRN PRN Reason: if refuses PO Zydis Last Admin: 08/13/23 09:17 Dose: 10 mg Olanzapine (Olanzapine Odt 10 Mg Tab.Rapdis) 20 mg TRANSLINGU BID [facility] Last Admin: 09/16/23 08:23 Dose: 20 mg Paliperidone Palmitate (Paliperidone Palmitate 234 Mg/1.5 Ml Syringe) 234 mg IM Q30D [facility] Last Admin: 08/21/23 12:39 Dose: 234 mg Trazodone HCl (Trazodone Hcl 50 Mg Tablet) 50 mg PO BEDTIME MRX1 PRN PRN Reason: Insomnia Vitamin D (Cholecalciferol (Vitamin D3) 10 Mcg Tablet) 10 mcg PO DAILY [facility] Last Admin: 09/15/23 08:06 Dose: Not Given Allergies Allergies Allergy/AdvReac Type Severity Reaction Status Date / Time acetaminophen [From TYLENOL] Allergy Intermediate HIVES Verified 08/28/22 09:48 meperidine [From Demerol] Allergy Unknown Verified 08/28/22 09:48 Assessment & Plan Assessment & Plan (1) Schizoaffective disorder: Qualifiers: Schizoaffective disorder type: bipolar Qualified Code(s): F25.0 - Schizoaffective disorder, bipolar type Status: Acute Code(s): F25.9 - Schizoaffective disorder, unspecified Assessment and Plan: Presents with decompensation of schizoaffective disorder, while in group living environment. Not adherence appears to be a factor. Patient not engaging with interview, evaluation or adherent with medications ie declining same. Unable to care for self. Being held on a Section 12 that will on 07/02/23. In the meantime will try and establish report and encourage medication adherence. Plan 06/29: encourage med adherence. 07/01/23: Ensure tid Will file Section VII on 07/02/23. 07/02/23: HCP activated today. Martine Elder is willing to serve in this role. [phone]. 07/03/23: Encourage treatment compliance 07/04/23 Encourage treatment compliance, begin process of validating HCP with the courts in order to provide pt with psychopharmacology options. 07/05/23 Encourage treatment. 07/07 remains disorganized in speech and behavior; refusing meds, paranoid -continue process of affirming HCP 07/08- Continue current plan. 07/09 continue current treatment plan 07/11/23 continue current treatment plan 07/12: Continue current regimen and plans 07/13: Continue current regimen and plans 07/14: Continue current plans and regimen 07/15/23: Continue current tx. Initiate regime 07/16. 07/17/23: Continue to encourage treatment. 07/18/23: Add prn Zyprexa IM if she refuses HS dosing 07/19: Continue current management and treatment plan. 07/20: Continue current management and treatment plan. 07/22: Continue tx. 07/23: Continue tx 07/24: Encourage milieu participation 07/26/23 continues too labile to interact with others- 07/27/23 - CTP encourage treatment 07/27/22 Continue tx plan; encourge meds as approved by HCP and court 07/29/23 schedule olanzepine discontinued after on hold for several days; awaiting invega sustenna to alleviate some of the psychosis in hopes patient more engageable and able to participate in her treatment; PO meds still ordered and should be offered with statement that they are court ordered and approved by HCP. 07/30/23 pt showing slight improvement- continue treatment plan 07/31/23 continue tx plan 08/01/23 continue tx plan 08/01 -Intermittently angry and irritable. Said hello to conventional mortgage underwriter but then when conventional mortgage underwriter asked how she was doing said none of your business. -Made swiping motion as if to scratch towards several staff, saying it was a curse -Yelled at peer today due to disorganized thought that person should not be in group room; yell that another peer who was going into the community refrigerator since patient thinks that the refrigerator is her property; able to be redirected 08/02 screamed at conventional mortgage underwriter and refused to enage. 08/03 staff agree Patient seems to be increasingly disorganized, walking briskly down the calle and yelling at peers, staff, making angry accusatory remarks and frightening and provoking some patients, causing some patients to become angry response. Will not engage with conventional mortgage underwriter. -patient on Invega Sustenna however behaviors are problematic, upsetting and sometimes scary to both peers and staff. Patient psychotic illness has gone untreated for quite some time and it seems likely she will need p.o. to overlap long-acting medication. Implementation Engineer reached out to patient's healthcare proxy Brit Elder and left message to discuss treatment 08/06/23- Continue tx. Pt today able to reach out and initiate discussion. Benztropine 1 mg tid prn EPS 08/07/23- Continue tx. 08/12/23: Diagnostics 08/13/23. 08/16: continue current management and treatment plan. 08/23/23 improving adls and med compliance- but picks and chooses who she will interact with 08/26/23- Continue tx- attempt diagnostics again this week. 08/29/23- Continue to attempt to get pt involved in discharge planning and daily routine expectations. 08/31/23- Continue to attempt education regarding intrusive behaviors, reality testing 09/01/23- Depakote ER 500 mg HS Increase Olanzapine 20 mg bid 09/03/23: CBCD, CMP, A1c, Lipids, TSH 09/03 for first time, pt pleasant, cooperative with conventional mortgage underwriter. c/o of some body aches but says ibuprofin helping. Has been asking nursing for discharge and responding angrily, saying she owns the hospital when request (for dc) not granted. 09/04 continue tx 09/05 continue tx 09/06 continue tx 09/12/23 Continue plan of care 09/12 Patient pleasant today; friendly with conventional mortgage underwriter. No complaints, walking up and down the calle singing to herself. When conventional mortgage underwriter was talking to another peer that she knows from the community, patient came up and encouraged this peer who was having a hard time. 09/13 remains much more pleasant and approachable, calm. dry skin vs psoriasis patches on face; will order lotion 09/14- Continue current regime and plan of care. 09/16/23 Pt preparing to meet with her residential team to begin planning her discharge. Reason for continued inpatient stay Substantial Risk for: rapid decompensation Time Spent With Patient Time: Total time managing care of this patient today ____ minutes.
[2023-09-16 20:00] VITALS: BP 126/61; PULSE 91; RESP 16; TEMP 36.3; O2SAT 96
[2023-09-17 08:00] VITALS: BP 133/95; PULSE 83; RESP 16; TEMP 36.3; O2SAT 100
[2023-09-17] MEDS: OLANZapine ODT 10 MG TAB.RAPDIS 20 MG TRANSLINGU ×2 (08:05→20:31)
[2023-09-17] MEDS: Ibuprofen 600 MG TABLET PO ×2 (08:16→20:32)
--- NOTE | 2023-09-17 15:50 | P.PNPSI_ITS ---
Subjective Subjective Date of Service: 09/17/23 Reason For Visit: Schizoaffective disorder Subjective Notes: Conditional Voluntary Healthcare Proxy: Yes Guardianship: No Medical Problems Affecting Mental Status: No Interim History: Confrontive today- I want to leave tomorrow. They are not staff who are coming. I am their employer. Declines dianostics- No, if they draw blood, all of the medicine will come out of my system. Labile, irritable at times, at times, pleasant and calm. Medication Compliance: Yes Side effects from medications: No Attending Groups: Intermittent Review of Systems Acute medical concerns: No Medical Review of Systems: unchanged Review of Systems Review of Systems Yes all other systems are reviewed and are negative Mental Status Exam Mental Status Exam Patient Appearance: Appropriate Patient Orientation: Person and Place Level of Consciousness: Awake and Alert Patient Behavior: Talkative and Pacing Behavior Comments: More pleasant Mood Description: Labile Affect Description: Labile Patient Cognition Impaired: Yes Ability to Follow Directions: Fair Speech Pattern: Spontaneous Speech Memory Description: Remote Impaired Hallucinations: None Delusions: Not Present (none expressed anyway) Thought Process: Distracted and Goal Oriented Thought Content: positive for Circumstantial Judgement: Fair Diagnostics Vital Signs (24Hr): Vital Signs - 24 hr 09/16/23 20:00 09/17/23 08:00 Temperature 97.4 F 97.3 F Pulse Rate 91 83 Respiratory Rate 16 16 Blood Pressure 126/61 133/95 H Pulse Oximetry 96 100 Oxygen Delivery Method Room Air Room Air BMI result Body Mass Index 34.1 Labs 06/25/23 17:59 06/25/23 17:59 Medications Medications Current Medications Al Hydroxide/Mg Hydroxide (Magnesium Hydrox/Alum Hydrox 30 Ml Oral.Susp) 30 ml PO Q6H PRN PRN Reason: Heartburn/Nausea Albuterol Sulfate (Albuterol Sulfate 90 Mcg 8 Gm Inhaler) 2 puff INHALE Q4H PRN PRN Reason: Wheezing Benztropine Mesylate (Benztropine Mesylate 1 Mg Tablet) 1 mg PO TID PRN PRN Reason: Extrapyramidal Effects Divalproex Sodium (Divalproex Sodium Er 500 Mg Tab.Er.24h) 500 mg PO BEDTIME [facility] Last Admin: 09/16/23 20:18 Dose: Not Given Duloxetine HCl (Duloxetine Hcl 20 Mg Capsule.Dr) 40 mg PO DAILY [facility] Last Admin: 09/17/23 08:18 Dose: Not Given Hydroxyzine HCl (Hydroxyzine Hcl 25 Mg Tablet) 25 mg PO Q6H PRN PRN Reason: Anxiety Ibuprofen (Ibuprofen 600 Mg Tablet) 600 mg PO Q4H PRN PRN Reason: moderate to severe pain Last Admin: 09/17/23 08:16 Dose: 600 mg Lorazepam (Lorazepam 0.5 Mg Tablet) 0.5 mg PO BID [facility] Last Admin: 09/17/23 08:11 Dose: Not Given Magnesium Hydroxide (Milk Of Magnesia 30 Ml Oral.Susp) 30 ml PO DAILY PRN PRN Reason: Constipation Metformin HCl (Metformin Hcl 500 Mg Tablet) 500 mg PO BID [facility] Last Admin: 09/17/23 08:14 Dose: Not Given Metronidazole (Metronidazole 0.75 % Gel 45 Gm Tube) 1 appl TOPICAL DAILY [facility] Last Admin: 09/17/23 11:49 Dose: Not Given Multi-Ingred Cream/Lotion/Oil/Oint (Mineral Oil/Petrolatum,White 106 Gm Tube) 1 appl TOPICAL BID [facility]; Protocol Last Admin: 09/17/23 11:49 Dose: Not Given Multivitamins/Vitamin C (Multivitamin Tablet) 1 tab PO DAILY [facility] Last Admin: 09/17/23 08:14 Dose: Not Given Nicotine Polacrilex (Nicotine Polacrilex Lozenge 2 Mg Lozenge) 2 mg BUCCAL Q2H PRN PRN Reason: Nicotine Cravings Olanzapine (Olanzapine Odt 10 Mg Tab.Rapdis) 10 mg TRANSLINGU DAILY PRN PRN Reason: Psychosis Last Admin: 08/04/23 17:34 Dose: 10 mg Olanzapine (Olanzapine 10 Mg Vial) 10 mg IM BID PRN PRN Reason: if refuses PO Zydis Last Admin: 08/13/23 09:17 Dose: 10 mg Olanzapine (Olanzapine Odt 10 Mg Tab.Rapdis) 20 mg TRANSLINGU BID [facility] Last Admin: 09/17/23 08:05 Dose: 20 mg Paliperidone Palmitate (Paliperidone Palmitate 234 Mg/1.5 Ml Syringe) 234 mg IM Q30D [facility] Last Admin: 08/21/23 12:39 Dose: 234 mg Trazodone HCl (Trazodone Hcl 50 Mg Tablet) 50 mg PO BEDTIME MRX1 PRN PRN Reason: Insomnia Vitamin D (Cholecalciferol (Vitamin D3) 10 Mcg Tablet) 10 mcg PO DAILY [facility] Last Admin: 09/17/23 08:11 Dose: Not Given Allergies Allergies Allergy/AdvReac Type Severity Reaction Status Date / Time acetaminophen [From TYLENOL] Allergy Intermediate HIVES Verified 08/28/22 09:48 meperidine [From Demerol] Allergy Unknown Verified 08/28/22 09:48 Assessment & Plan Assessment & Plan (1) Schizoaffective disorder: Qualifiers: Schizoaffective disorder type: bipolar Qualified Code(s): F25.0 - Schizoaffective disorder, bipolar type Status: Acute Code(s): F25.9 - Schizoaffective disorder, unspecified Assessment and Plan: Presents with decompensation of schizoaffective disorder, while in group living environment. Not adherence appears to be a factor. Patient not engaging with interview, evaluation or adherent with medications ie declining same. Unable to care for self. Being held on a Section 12 that will on 07/02/23. In the meantime will try and establish report and encourage medication adherence. Plan 06/29: encourage med adherence. 07/01/23: Ensure tid Will file Section VII on 07/02/23. 07/02/23: HCP activated today. Martine Elder is willing to serve in this role. [phone]. 07/03/23: Encourage treatment compliance 07/04/23 Encourage treatment compliance, begin process of validating HCP with the courts in order to provide pt with psychopharmacology options. 07/05/23 Encourage treatment. 07/07 remains disorganized in speech and behavior; refusing meds, paranoid -continue process of affirming HCP 07/08- Continue current plan. 07/09 continue current treatment plan 07/11/23 continue current treatment plan 07/12: Continue current regimen and plans 07/13: Continue current regimen and plans 07/14: Continue current plans and regimen 07/15/23: Continue current tx. Initiate regime 07/16. 07/17/23: Continue to encourage treatment. 07/18/23: Add prn Zyprexa IM if she refuses HS dosing 07/19: Continue current management and treatment plan. 07/20: Continue current management and treatment plan. 07/22: Continue tx. 07/23: Continue tx 07/24: Encourage milieu participation 07/26/23 continues too labile to interact with others- 07/27/23 - CTP encourage treatment 07/27/22 Continue tx plan; encourge meds as approved by HCP and court 07/29/23 schedule olanzepine discontinued after on hold for several days; awaiting invega sustenna to alleviate some of the psychosis in hopes patient more engageable and able to participate in her treatment; PO meds still ordered and should be offered with statement that they are court ordered and approved by HCP. 07/30/23 pt showing slight improvement- continue treatment plan 07/31/23 continue tx plan 08/01/23 continue tx plan 08/01 -Intermittently angry and irritable. Said hello to quality analyst/technical writer but then when quality analyst/technical writer asked how she was doing said none of your business. -Made swiping motion as if to scratch towards several staff, saying it was a curse -Yelled at peer today due to disorganized thought that person should not be in group room; yell that another peer who was going into the community refrigerator since patient thinks that the refrigerator is her property; able to be redirected 08/02 screamed at quality analyst/technical writer and refused to enage. 08/03 staff agree Patient seems to be increasingly disorganized, walking briskly down the calle and yelling at peers, staff, making angry accusatory remarks and frightening and provoking some patients, causing some patients to become angry response. Will not engage with quality analyst/technical writer. -patient on Invega Sustenna however behaviors are problematic, upsetting and sometimes scary to both peers and staff. Patient psychotic illness has gone untreated for quite some time and it seems likely she will need p.o. to overlap long-acting medication. Non Destructive Testing Technician reached out to patient's healthcare proxy Brit Elder and left message to discuss treatment 08/06/23- Continue tx. Pt today able to reach out and initiate discussion. Benztropine 1 mg tid prn EPS 08/07/23- Continue tx. 08/12/23: Diagnostics 08/13/23. 08/16: continue current management and treatment plan. 08/23/23 improving adls and med compliance- but picks and chooses who she will interact with 08/26/23- Continue tx- attempt diagnostics again this week. 08/29/23- Continue to attempt to get pt involved in discharge planning and daily routine expectations. 08/31/23- Continue to attempt education regarding intrusive behaviors, reality testing 09/01/23- Depakote ER 500 mg HS Increase Olanzapine 20 mg bid 09/03/23: CBCD, CMP, A1c, Lipids, TSH 09/03 for first time, pt pleasant, cooperative with quality analyst/technical writer. c/o of some body aches but says ibuprofin helping. Has been asking nursing for discharge and responding angrily, saying she owns the hospital when request (for dc) not granted. 09/04 continue tx 09/05 continue tx 09/06 continue tx 09/12/23 Continue plan of care 09/12 Patient pleasant today; friendly with quality analyst/technical writer. No complaints, walking up and down the calle singing to herself. When quality analyst/technical writer was talking to another peer that she knows from the community, patient came up and encouraged this peer who was having a hard time. 09/13 remains much more pleasant and approachable, calm. dry skin vs psoriasis patches on face; will order lotion 09/14- Continue current regime and plan of care. 09/16- Residential team meeting 09/18/23. Reason for continued inpatient stay Substantial Risk for: rapid decompensation Time Spent With Patient Time: Total time managing care of this patient today ____ minutes.
[2023-09-17 20:00] VITALS: BP 161/73; PULSE 90; RESP 17; TEMP 36.8; O2SAT 97
[2023-09-18 07:00] VITALS: BMI 37.7
[2023-09-18 08:00] VITALS: RESP 16
[2023-09-18] MEDS: Ibuprofen 600 MG TABLET PO ×2 (08:21→20:14)
[2023-09-18] MEDS: OLANZapine ODT 10 MG TAB.RAPDIS 20 MG TRANSLINGU ×2 (08:22→20:15)
--- NOTE | 2023-09-18 09:40 | HO.PSYCHPN ---
Subjective Subjective Date of Service: 09/18/23 Reason For Visit: Schizoaffective disorder Subjective Notes: Conditional Voluntary Healthcare Proxy: Yes Guardianship: No Medical Problems Affecting Mental Status: No Interim History: Met with pt and her residential sub acute care nurse today. Pt began her meeting in a positive manner. She progressed to accusations of having money stolen, informing us she owned the house, [facility] [facility] [place]. She demanded to leave on Friday. She refuses to acknowledge HCP activation. Parameters were set regarding what needs to be in place prior to discharge. She dismissed these and left our meeting. Her team will continue to meet weekly with her. They assured her she was welcome back at the house and is missed by the staff and her peers. Medication Compliance: Intermittent Side effects from medications: No Attending Groups: No Review of Systems Acute medical concerns: No Medical Review of Systems: unchanged Mental Status Exam Mental Status Exam Patient Appearance: Appropriate Patient Orientation: Person and Place Level of Consciousness: Awake and Alert Patient Behavior: Talkative and Pacing Behavior Comments: More pleasant Mood Description: Labile Affect Description: Labile Patient Cognition Impaired: Yes Ability to Follow Directions: Fair Speech Pattern: Spontaneous Speech Memory Description: Remote Impaired Hallucinations: None Delusions: Not Present (none expressed anyway) Thought Process: Distracted and Goal Oriented Thought Content: positive for Circumstantial Judgement: Fair Diagnostics Vital Signs (24Hr): Vital Signs - 24 hr 09/17/23 20:00 09/18/23 08:00 Temperature 98.2 F Pulse Rate 90 Respiratory Rate 17 16 Blood Pressure 161/73 H Pulse Oximetry 97 Oxygen Delivery Method Room Air BMI result Body Mass Index 34.1 Labs 06/25/23 17:59 06/25/23 17:59 Medications Medications Current Medications Al Hydroxide/Mg Hydroxide (Magnesium Hydrox/Alum Hydrox 30 Ml Oral.Susp) 30 ml PO Q6H PRN PRN Reason: Heartburn/Nausea Albuterol Sulfate (Albuterol Sulfate 90 Mcg 8 Gm Inhaler) 2 puff INHALE Q4H PRN PRN Reason: Wheezing Benztropine Mesylate (Benztropine Mesylate 1 Mg Tablet) 1 mg PO TID PRN PRN Reason: Extrapyramidal Effects Divalproex Sodium (Divalproex Sodium Er 500 Mg Tab.Er.24h) 500 mg PO BEDTIME [facility] Last Admin: 09/17/23 22:50 Dose: Not Given Duloxetine HCl (Duloxetine Hcl 20 Mg Capsule.Dr) 40 mg PO DAILY [facility] Last Admin: 09/18/23 08:25 Dose: Not Given Hydroxyzine HCl (Hydroxyzine Hcl 25 Mg Tablet) 25 mg PO Q6H PRN PRN Reason: Anxiety Ibuprofen (Ibuprofen 600 Mg Tablet) 600 mg PO Q4H PRN PRN Reason: moderate to severe pain Last Admin: 09/18/23 08:21 Dose: 600 mg Lorazepam (Lorazepam 0.5 Mg Tablet) 0.5 mg PO BID [facility] Last Admin: 09/18/23 08:25 Dose: Not Given Magnesium Hydroxide (Milk Of Magnesia 30 Ml Oral.Susp) 30 ml PO DAILY PRN PRN Reason: Constipation Metformin HCl (Metformin Hcl 500 Mg Tablet) 500 mg PO BID [facility] Last Admin: 09/18/23 08:25 Dose: Not Given Metronidazole (Metronidazole 0.75 % Gel 45 Gm Tube) 1 appl TOPICAL DAILY [facility] Last Admin: 09/18/23 08:25 Dose: Not Given Multi-Ingred Cream/Lotion/Oil/Oint (Mineral Oil/Petrolatum,White 106 Gm Tube) 1 appl TOPICAL BID [facility]; Protocol Last Admin: 09/18/23 08:25 Dose: Not Given Multivitamins/Vitamin C (Multivitamin Tablet) 1 tab PO DAILY [facility] Last Admin: 09/18/23 08:25 Dose: Not Given Nicotine Polacrilex (Nicotine Polacrilex Lozenge 2 Mg Lozenge) 2 mg BUCCAL Q2H PRN PRN Reason: Nicotine Cravings Olanzapine (Olanzapine Odt 10 Mg Tab.Rapdis) 10 mg TRANSLINGU DAILY PRN PRN Reason: Psychosis Last Admin: 08/04/23 17:34 Dose: 10 mg Olanzapine (Olanzapine 10 Mg Vial) 10 mg IM BID PRN PRN Reason: if refuses PO Zydis Last Admin: 08/13/23 09:17 Dose: 10 mg Olanzapine (Olanzapine Odt 10 Mg Tab.Rapdis) 20 mg TRANSLINGU BID [facility] Last Admin: 09/18/23 08:22 Dose: 20 mg Paliperidone Palmitate (Paliperidone Palmitate 234 Mg/1.5 Ml Syringe) 234 mg IM Q30D [facility] Last Admin: 08/21/23 12:39 Dose: 234 mg Trazodone HCl (Trazodone Hcl 50 Mg Tablet) 50 mg PO BEDTIME MRX1 PRN PRN Reason: Insomnia Vitamin D (Cholecalciferol (Vitamin D3) 10 Mcg Tablet) 10 mcg PO DAILY [facility] Last Admin: 09/18/23 08:25 Dose: Not Given Allergies Allergies Allergy/AdvReac Type Severity Reaction Status Date / Time acetaminophen [From TYLENOL] Allergy Intermediate HIVES Verified 08/28/22 09:48 meperidine [From Demerol] Allergy Unknown Verified 08/28/22 09:48 Assessment & Plan Assessment & Plan (1) Schizoaffective disorder: Qualifiers: Schizoaffective disorder type: bipolar Qualified Code(s): F25.0 - Schizoaffective disorder, bipolar type Status: Acute Code(s): F25.9 - Schizoaffective disorder, unspecified Assessment and Plan: Presents with decompensation of schizoaffective disorder, while in group living environment. Not adherence appears to be a factor. Patient not engaging with interview, evaluation or adherent with medications ie declining same. Unable to care for self. Being held on a Section 12 that will on 07/02/23. In the meantime will try and establish report and encourage medication adherence. Plan 06/29: encourage med adherence. 07/01/23: Ensure tid Will file Section VII on 07/02/23. 07/02/23: HCP activated today. Martine Elder is willing to serve in this role. [phone]. 07/03/23: Encourage treatment compliance 07/04/23 Encourage treatment compliance, begin process of validating HCP with the courts in order to provide pt with psychopharmacology options. 07/05/23 Encourage treatment. 07/07 remains disorganized in speech and behavior; refusing meds, paranoid -continue process of affirming HCP 07/08- Continue current plan. 07/09 continue current treatment plan 07/11/23 continue current treatment plan 07/12: Continue current regimen and plans 07/13: Continue current regimen and plans 07/14: Continue current plans and regimen 07/15/23: Continue current tx. Initiate regime 07/16. 07/17/23: Continue to encourage treatment. 07/18/23: Add prn Zyprexa IM if she refuses HS dosing 07/19: Continue current management and treatment plan. 07/20: Continue current management and treatment plan. 07/22: Continue tx. 07/23: Continue tx 07/24: Encourage milieu participation 07/26/23 continues too labile to interact with others- 07/27/23 - CTP encourage treatment 07/27/22 Continue tx plan; encourge meds as approved by HCP and court 07/29/23 schedule olanzepine discontinued after on hold for several days; awaiting invega sustenna to alleviate some of the psychosis in hopes patient more engageable and able to participate in her treatment; PO meds still ordered and should be offered with statement that they are court ordered and approved by HCP. 07/30/23 pt showing slight improvement- continue treatment plan 07/31/23 continue tx plan 08/01/23 continue tx plan 08/01 -Intermittently angry and irritable. Said hello to news writer but then when news writer asked how she was doing said none of your business. -Made swiping motion as if to scratch towards several staff, saying it was a curse -Yelled at peer today due to disorganized thought that person should not be in group room; yell that another peer who was going into the community refrigerator since patient thinks that the refrigerator is her property; able to be redirected 08/02 screamed at news writer and refused to enage. 08/03 staff agree Patient seems to be increasingly disorganized, walking briskly down the calle and yelling at peers, staff, making angry accusatory remarks and frightening and provoking some patients, causing some patients to become angry response. Will not engage with news writer. -patient on Invega Sustenna however behaviors are problematic, upsetting and sometimes scary to both peers and staff. Patient psychotic illness has gone untreated for quite some time and it seems likely she will need p.o. to overlap long-acting medication. Specialist Icu reached out to patient's healthcare proxy Brit Elder and left message to discuss treatment 08/06/23- Continue tx. Pt today able to reach out and initiate discussion. Benztropine 1 mg tid prn EPS 08/07/23- Continue tx. 08/12/23: Diagnostics 08/13/23. 08/16: continue current management and treatment plan. 08/23/23 improving adls and med compliance- but picks and chooses who she will interact with 08/26/23- Continue tx- attempt diagnostics again this week. 08/29/23- Continue to attempt to get pt involved in discharge planning and daily routine expectations. 08/31/23- Continue to attempt education regarding intrusive behaviors, reality testing 09/01/23- Depakote ER 500 mg HS Increase Olanzapine 20 mg bid 09/03/23: CBCD, CMP, A1c, Lipids, TSH 09/03 for first time, pt pleasant, cooperative with news writer. c/o of some body aches but says ibuprofin helping. Has been asking nursing for discharge and responding angrily, saying she owns the hospital when request (for dc) not granted. 09/04 continue tx 09/05 continue tx 09/06 continue tx 09/12/23 Continue plan of care 09/12 Patient pleasant today; friendly with news writer. No complaints, walking up and down the calle singing to herself. When news writer was talking to another peer that she knows from the community, patient came up and encouraged this peer who was having a hard time. 09/13 remains much more pleasant and approachable, calm. dry skin vs psoriasis patches on face; will order lotion 09/14- Continue current regime and plan of care. 09/16- Residential team meeting 09/18/23. 09/18/23- Continue treatment Informed Consent: further education needed Reason for continued inpatient stay Substantial Risk for: rapid decompensation Time Spent With Patient Time: Total time managing care of this patient today ____ minutes.
[2023-09-18 20:00] VITALS: BP 151/90; PULSE 104; RESP 18; TEMP 36.6; O2SAT 96
[2023-09-19] MEDS: OLANZapine ODT 10 MG TAB.RAPDIS 20 MG TRANSLINGU ×2 (09:59→20:33)
[2023-09-19] MEDS: Ibuprofen 600 MG TABLET PO ×2 (09:59→16:12)
--- NOTE | 2023-09-19 15:00 | P.PNPSI_ITS ---
Subjective Subjective Date of Service: 09/19/23 Reason For Visit: Schizoaffective disorder Subjective Notes: Conditional Voluntary Healthcare Proxy: Yes Guardianship: No Medical Problems Affecting Mental Status: No Interim History: Brief review of meeting with residential team on 09/17. Reviewed pt's goals to work on while she continues in patient prior to discharge. Pt challenging her own thoughts at times, someone told me I don't own my care home . Is that true ? Discussed briefly-pt not wanting to talk of this for a significant time. Medication Compliance: Intermittent Side effects from medications: No Attending Groups: No Review of Systems Acute medical concerns: No Medical Review of Systems: unchanged Review of Systems Review of Systems Yes all other systems are reviewed and are negative Mental Status Exam Mental Status Exam Patient Appearance: Appropriate Patient Orientation: Person and Place Level of Consciousness: Awake and Alert Patient Behavior: Talkative and Pacing Behavior Comments: More pleasant Mood Description: Labile Affect Description: Labile Patient Cognition Impaired: Yes Ability to Follow Directions: Fair Speech Pattern: Spontaneous Speech Memory Description: Remote Impaired Hallucinations: None Delusions: Not Present (none expressed anyway) Thought Process: Distracted and Goal Oriented Thought Content: positive for Circumstantial Judgement: Fair Diagnostics Vital Signs (24Hr): Vital Signs - 24 hr 09/18/23 20:00 Temperature 97.8 F Pulse Rate 104 H Respiratory Rate 18 Blood Pressure 151/90 H Pulse Oximetry 96 Oxygen Delivery Method Room Air BMI result Body Mass Index 37.7 Labs 06/25/23 17:59 06/25/23 17:59 Medications Medications Current Medications Al Hydroxide/Mg Hydroxide (Magnesium Hydrox/Alum Hydrox 30 Ml Oral.Susp) 30 ml PO Q6H PRN PRN Reason: Heartburn/Nausea Albuterol Sulfate (Albuterol Sulfate 90 Mcg 8 Gm Inhaler) 2 puff INHALE Q4H PRN PRN Reason: Wheezing Benztropine Mesylate (Benztropine Mesylate 1 Mg Tablet) 1 mg PO TID PRN PRN Reason: Extrapyramidal Effects Divalproex Sodium (Divalproex Sodium Er 500 Mg Tab.Er.24h) 500 mg PO BEDTIME [facility] Last Admin: 09/19/23 01:26 Dose: Not Given Duloxetine HCl (Duloxetine Hcl 20 Mg Capsule.Dr) 40 mg PO DAILY [facility] Last Admin: 09/19/23 10:14 Dose: Not Given Hydroxyzine HCl (Hydroxyzine Hcl 25 Mg Tablet) 25 mg PO Q6H PRN PRN Reason: Anxiety Ibuprofen (Ibuprofen 600 Mg Tablet) 600 mg PO Q4H PRN PRN Reason: moderate to severe pain Last Admin: 09/19/23 09:59 Dose: 600 mg Lorazepam (Lorazepam 0.5 Mg Tablet) 0.5 mg PO BID [facility] Last Admin: 09/19/23 10:14 Dose: Not Given Magnesium Hydroxide (Milk Of Magnesia 30 Ml Oral.Susp) 30 ml PO DAILY PRN PRN Reason: Constipation Metformin HCl (Metformin Hcl 500 Mg Tablet) 500 mg PO BID [facility] Last Admin: 09/19/23 10:14 Dose: Not Given Metronidazole (Metronidazole 0.75 % Gel 45 Gm Tube) 1 appl TOPICAL DAILY [facility] Last Admin: 09/19/23 10:14 Dose: Not Given Multi-Ingred Cream/Lotion/Oil/Oint (Mineral Oil/Petrolatum,White 106 Gm Tube) 1 appl TOPICAL BID [facility]; Protocol Last Admin: 09/19/23 10:14 Dose: Not Given Multivitamins/Vitamin C (Multivitamin Tablet) 1 tab PO DAILY [facility] Last Admin: 09/19/23 10:15 Dose: Not Given Nicotine Polacrilex (Nicotine Polacrilex Lozenge 2 Mg Lozenge) 2 mg BUCCAL Q2H PRN PRN Reason: Nicotine Cravings Olanzapine (Olanzapine Odt 10 Mg Tab.Rapdis) 10 mg TRANSLINGU DAILY PRN PRN Reason: Psychosis Last Admin: 08/04/23 17:34 Dose: 10 mg Olanzapine (Olanzapine 10 Mg Vial) 10 mg IM BID PRN PRN Reason: if refuses PO Zydis Last Admin: 08/13/23 09:17 Dose: 10 mg Olanzapine (Olanzapine Odt 10 Mg Tab.Rapdis) 20 mg TRANSLINGU BID [facility] Last Admin: 09/19/23 09:59 Dose: 20 mg Paliperidone Palmitate (Paliperidone Palmitate 234 Mg/1.5 Ml Syringe) 234 mg IM Q30D [facility] Last Admin: 08/21/23 12:39 Dose: 234 mg Trazodone HCl (Trazodone Hcl 50 Mg Tablet) 50 mg PO BEDTIME MRX1 PRN PRN Reason: Insomnia Vitamin D (Cholecalciferol (Vitamin D3) 10 Mcg Tablet) 10 mcg PO DAILY [facility] Last Admin: 09/19/23 10:14 Dose: Not Given Allergies Allergies Allergy/AdvReac Type Severity Reaction Status Date / Time acetaminophen [From TYLENOL] Allergy Intermediate HIVES Verified 08/28/22 09:48 meperidine [From Demerol] Allergy Unknown Verified 08/28/22 09:48 Assessment & Plan Assessment & Plan (1) Schizoaffective disorder: Qualifiers: Schizoaffective disorder type: bipolar Qualified Code(s): F25.0 - Schizoaffective disorder, bipolar type Status: Acute Code(s): F25.9 - Schizoaffective disorder, unspecified Assessment and Plan: Presents with decompensation of schizoaffective disorder, while in group living environment. Not adherence appears to be a factor. Patient not engaging with interview, evaluation or adherent with medications ie declining same. Unable to care for self. Being held on a Section 12 that will on 07/02/23. In the meantime will try and establish report and encourage medication adherence. Plan 06/29: encourage med adherence. 07/01/23: Ensure tid Will file Section VII on 07/02/23. 07/02/23: HCP activated today. Martine Elder is willing to serve in this role. [phone]. 07/03/23: Encourage treatment compliance 07/04/23 Encourage treatment compliance, begin process of validating HCP with the courts in order to provide pt with psychopharmacology options. 07/05/23 Encourage treatment. 07/07 remains disorganized in speech and behavior; refusing meds, paranoid -continue process of affirming HCP 07/08- Continue current plan. 07/09 continue current treatment plan 07/11/23 continue current treatment plan 07/12: Continue current regimen and plans 07/13: Continue current regimen and plans 07/14: Continue current plans and regimen 07/15/23: Continue current tx. Initiate regime 07/16. 07/17/23: Continue to encourage treatment. 07/18/23: Add prn Zyprexa IM if she refuses HS dosing 07/19: Continue current management and treatment plan. 07/20: Continue current management and treatment plan. 07/22: Continue tx. 07/23: Continue tx 07/24: Encourage milieu participation 07/26/23 continues too labile to interact with others- 07/27/23 - CTP encourage treatment 07/27/22 Continue tx plan; encourge meds as approved by HCP and court 07/29/23 schedule olanzepine discontinued after on hold for several days; awaiting invega sustenna to alleviate some of the psychosis in hopes patient more engageable and able to participate in her treatment; PO meds still ordered and should be offered with statement that they are court ordered and approved by HCP. 07/30/23 pt showing slight improvement- continue treatment plan 07/31/23 continue tx plan 08/01/23 continue tx plan 08/01 -Intermittently angry and irritable. Said hello to repairer typewriter but then when repairer typewriter asked how she was doing said none of your business. -Made swiping motion as if to scratch towards several staff, saying it was a curse -Yelled at peer today due to disorganized thought that person should not be in group room; yell that another peer who was going into the community refrigerator since patient thinks that the refrigerator is her property; able to be redirected 08/02 screamed at repairer typewriter and refused to enage. 08/03 staff agree Patient seems to be increasingly disorganized, walking briskly down the calle and yelling at peers, staff, making angry accusatory remarks and frightening and provoking some patients, causing some patients to become angry response. Will not engage with repairer typewriter. -patient on Invega Sustenna however behaviors are problematic, upsetting and sometimes scary to both peers and staff. Patient psychotic illness has gone untreated for quite some time and it seems likely she will need p.o. to overlap long-acting medication. Dentistry Professor reached out to patient's healthcare proxy Brit Elder and left message to discuss treatment 08/06/23- Continue tx. Pt today able to reach out and initiate discussion. Benztropine 1 mg tid prn EPS 08/07/23- Continue tx. 08/12/23: Diagnostics 08/13/23. 08/16: continue current management and treatment plan. 08/23/23 improving adls and med compliance- but picks and chooses who she will interact with 08/26/23- Continue tx- attempt diagnostics again this week. 08/29/23- Continue to attempt to get pt involved in discharge planning and daily routine expectations. 08/31/23- Continue to attempt education regarding intrusive behaviors, reality testing 09/01/23- Depakote ER 500 mg HS Increase Olanzapine 20 mg bid 09/03/23: CBCD, CMP, A1c, Lipids, TSH 09/03 for first time, pt pleasant, cooperative with repairer typewriter. c/o of some body aches but says ibuprofin helping. Has been asking nursing for discharge and responding angrily, saying she owns the hospital when request (for dc) not granted. 09/04 continue tx 09/05 continue tx 09/06 continue tx 09/12/23 Continue plan of care 09/12 Patient pleasant today; friendly with repairer typewriter. No complaints, walking up and down the calle singing to herself. When repairer typewriter was talking to another peer that she knows from the community, patient came up and encouraged this peer who was having a hard time. 09/13 remains much more pleasant and approachable, calm. dry skin vs psoriasis patches on face; will order lotion 09/14- Continue current regime and plan of care. 09/16- Residential team meeting 09/18/23. 09/18/23- Continue treatment 09/19/23- Continue treatment Reason for continued inpatient stay Substantial Risk for: rapid decompensation Time Spent With Patient Time: Total time managing care of this patient today ____ minutes.
[2023-09-19 20:00] VITALS: BP 116/75; PULSE 111; TEMP 36.3; O2SAT 95
[2023-09-20] MEDS: Ibuprofen 600 MG TABLET PO ×2 (08:39→19:50)
[2023-09-20] MEDS: OLANZapine ODT 10 MG TAB.RAPDIS 20 MG TRANSLINGU ×2 (08:39→19:50)
[2023-09-20 19:43] VITALS: BP 138/60; PULSE 93; RESP 18; TEMP 36; O2SAT 96
--- NOTE | 2023-09-20 21:01 | P.PNPSI_ITS ---
Subjective Subjective Date of Service: 09/20/23 Reason For Visit: Schizoaffective disorder Interim History: Improvec since admission. Tolerating medications well with no side effects. Review of Systems Review of Systems Reports chronic pain daily, however, today, reports she believes medication is helpful in managing the pain and it is decreasing. Yes all other systems are reviewed and are negative and Unobtainable due to mental status Mental Status Exam Mental Status Exam Narrative: Patient Appearance: Disheveled Patient Orientation: Person and Place Level of Consciousness: Awake, Drowsy and Alert Patient Behavior: Impulsive Mood Description: Labile Affect Description: Labile Patient Cognition Impaired: Yes Ability to Follow Directions: Fair Speech Pattern: Spontaneous Speech Memory Description: Remote Impaired Hallucinations: None Delusions: Present Thought Process: Distracted and Goal Oriented Thought Content: positive for [place] and positive for Circumstantial Abnormal Motor Activity Signs and Symptoms: Agitation (intermittent) Judgement: Poor Patient Appearance: Appropriate Patient Orientation: Person and Place Level of Consciousness: Awake and Alert Patient Behavior: Talkative and Pacing Behavior Comments: More pleasant Mood Description: Labile Affect Description: Labile Patient Cognition Impaired: Yes Ability to Follow Directions: Fair Speech Pattern: Spontaneous Speech Memory Description: Remote Impaired Diagnostics Vital Signs (24Hr): Vital Signs - 24 hr 09/20/23 19:43 Temperature 96.8 F Pulse Rate 93 Respiratory Rate 18 Blood Pressure 138/60 Pulse Oximetry 96 Oxygen Delivery Method Room Air BMI result Body Mass Index 37.7 Labs 06/25/23 17:59 06/25/23 17:59 Medications Medications Current Medications Al Hydroxide/Mg Hydroxide (Magnesium Hydrox/Alum Hydrox 30 Ml Oral.Susp) 30 ml PO Q6H PRN PRN Reason: Heartburn/Nausea Albuterol Sulfate (Albuterol Sulfate 90 Mcg 8 Gm Inhaler) 2 puff INHALE Q4H PRN PRN Reason: Wheezing Benztropine Mesylate (Benztropine Mesylate 1 Mg Tablet) 1 mg PO TID PRN PRN Reason: Extrapyramidal Effects Divalproex Sodium (Divalproex Sodium Er 500 Mg Tab.Er.24h) 500 mg PO BEDTIME [facility] Last Admin: 09/20/23 19:57 Dose: Not Given Duloxetine HCl (Duloxetine Hcl 20 Mg Capsule.Dr) 40 mg PO DAILY [facility] Last Admin: 09/20/23 11:35 Dose: Not Given Hydroxyzine HCl (Hydroxyzine Hcl 25 Mg Tablet) 25 mg PO Q6H PRN PRN Reason: Anxiety Ibuprofen (Ibuprofen 600 Mg Tablet) 600 mg PO Q4H PRN PRN Reason: moderate to severe pain Last Admin: 09/20/23 19:50 Dose: 600 mg Lorazepam (Lorazepam 0.5 Mg Tablet) 0.5 mg PO BID [facility] Last Admin: 09/20/23 19:57 Dose: Not Given Magnesium Hydroxide (Milk Of Magnesia 30 Ml Oral.Susp) 30 ml PO DAILY PRN PRN Reason: Constipation Metformin HCl (Metformin Hcl 500 Mg Tablet) 500 mg PO BID [facility] Last Admin: 09/20/23 19:57 Dose: Not Given Metronidazole (Metronidazole 0.75 % Gel 45 Gm Tube) 1 appl TOPICAL DAILY [facility] Last Admin: 09/20/23 11:35 Dose: Not Given Multi-Ingred Cream/Lotion/Oil/Oint (Mineral Oil/Petrolatum,White 106 Gm Tube) 1 appl TOPICAL BID [facility]; Protocol Last Admin: 09/20/23 19:57 Dose: Not Given Multivitamins/Vitamin C (Multivitamin Tablet) 1 tab PO DAILY [facility] Last Admin: 09/20/23 11:36 Dose: Not Given Nicotine Polacrilex (Nicotine Polacrilex Lozenge 2 Mg Lozenge) 2 mg BUCCAL Q2H PRN PRN Reason: Nicotine Cravings Olanzapine (Olanzapine Odt 10 Mg Tab.Rapdis) 10 mg TRANSLINGU DAILY PRN PRN Reason: Psychosis Last Admin: 08/04/23 17:34 Dose: 10 mg Olanzapine (Olanzapine 10 Mg Vial) 10 mg IM BID PRN PRN Reason: if refuses PO Zydis Last Admin: 08/13/23 09:17 Dose: 10 mg Olanzapine (Olanzapine Odt 10 Mg Tab.Rapdis) 20 mg TRANSLINGU BID [facility] Last Admin: 09/20/23 19:50 Dose: 20 mg Paliperidone Palmitate (Paliperidone Palmitate 234 Mg/1.5 Ml Syringe) 234 mg IM Q30D [facility] Last Admin: 09/20/23 11:36 Dose: Not Given Trazodone HCl (Trazodone Hcl 50 Mg Tablet) 50 mg PO BEDTIME MRX1 PRN PRN Reason: Insomnia Vitamin D (Cholecalciferol (Vitamin D3) 10 Mcg Tablet) 10 mcg PO DAILY [facility] Last Admin: 09/20/23 11:35 Dose: Not Given Allergies Allergies Allergy/AdvReac Type Severity Reaction Status Date / Time acetaminophen [From TYLENOL] Allergy Intermediate HIVES Verified 08/28/22 09:48 meperidine [From Demerol] Allergy Unknown Verified 08/28/22 09:48 Assessment & Plan Assessment & Plan (1) Schizoaffective disorder: Qualifiers: Schizoaffective disorder type: bipolar Qualified Code(s): F25.0 - Schizoaffective disorder, bipolar type Status: Acute Code(s): F25.9 - Schizoaffective disorder, unspecified Assessment and Plan: Presents with decompensation of schizoaffective disorder, while in group living environment. Not adherence appears to be a factor. Patient not engaging with interview, evaluation or adherent with medications ie declining same. Unable to care for self. Being held on a Section 12 that will on 07/02/23. In the meantime will try and establish report and encourage medication adherence. Plan 06/29: encourage med adherence. 07/01/23: Ensure tid Will file Section VII on 07/02/23. 07/02/23: HCP activated today. Martine Elder is willing to serve in this role. [phone]. 07/03/23: Encourage treatment compliance 07/04/23 Encourage treatment compliance, begin process of validating HCP with the courts in order to provide pt with psychopharmacology options. 07/05/23 Encourage treatment. 07/07 remains disorganized in speech and behavior; refusing meds, paranoid -continue process of affirming HCP 07/08- Continue current plan. 07/09 continue current treatment plan 07/11/23 continue current treatment plan 07/12: Continue current regimen and plans 07/13: Continue current regimen and plans 07/14: Continue current plans and regimen 07/15/23: Continue current tx. Initiate regime 07/16. 07/17/23: Continue to encourage treatment. 07/18/23: Add prn Zyprexa IM if she refuses HS dosing 07/19: Continue current management and treatment plan. 07/20: Continue current management and treatment plan. 07/22: Continue tx. 07/23: Continue tx 07/24: Encourage milieu participation 07/26/23 continues too labile to interact with others- 07/27/23 - CTP encourage treatment 07/27/22 Continue tx plan; encourge meds as approved by HCP and court 07/29/23 schedule olanzepine discontinued after on hold for several days; awaiting invega sustenna to alleviate some of the psychosis in hopes patient more engageable and able to participate in her treatment; PO meds still ordered and should be offered with statement that they are court ordered and approved by HCP. 07/30/23 pt showing slight improvement- continue treatment plan 07/31/23 continue tx plan 08/01/23 continue tx plan 08/01 -Intermittently angry and irritable. Said hello to business writer but then when business writer asked how she was doing said none of your business. -Made swiping motion as if to scratch towards several staff, saying it was a curse -Yelled at peer today due to disorganized thought that person should not be in group room; yell that another peer who was going into the community refrigerator since patient thinks that the refrigerator is her property; able to be redirected 08/02 screamed at business writer and refused to enage. 08/03 staff agree Patient seems to be increasingly disorganized, walking briskly down the calle and yelling at peers, staff, making angry accusatory remarks and frightening and provoking some patients, causing some patients to become angry response. Will not engage with business writer. -patient on Invega Sustenna however behaviors are problematic, upsetting and sometimes scary to both peers and staff. Patient psychotic illness has gone untreated for quite some time and it seems likely she will need p.o. to overlap long-acting medication. Truck Sales Manager reached out to patient's healthcare proxy Brit Elder and left message to discuss treatment 08/06/23- Continue tx. Pt today able to reach out and initiate discussion. Benztropine 1 mg tid prn EPS 08/07/23- Continue tx. 08/12/23: Diagnostics 08/13/23. 08/16: continue current management and treatment plan. 08/23/23 improving adls and med compliance- but picks and chooses who she will interact with 08/26/23- Continue tx- attempt diagnostics again this week. 08/29/23- Continue to attempt to get pt involved in discharge planning and daily routine expectations. 08/31/23- Continue to attempt education regarding intrusive behaviors, reality testing 09/01/23- Depakote ER 500 mg HS Increase Olanzapine 20 mg bid 09/03/23: CBCD, CMP, A1c, Lipids, TSH 09/03 for first time, pt pleasant, cooperative with business writer. c/o of some body aches but says ibuprofin helping. Has been asking nursing for discharge and responding angrily, saying she owns the hospital when request (for dc) not granted. 09/04 continue tx 09/05 continue tx 09/06 continue tx 09/12/23 Continue plan of care 09/12 Patient pleasant today; friendly with business writer. No complaints, walking up and down the calle singing to herself. When business writer was talking to another peer that she knows from the community, patient came up and encouraged this peer who was having a hard time. 09/13 remains much more pleasant and approachable, calm. dry skin vs psoriasis patches on face; will order lotion 09/14- Continue current regime and plan of care. 09/16- Residential team meeting 09/18/23. 09/18/23- Continue treatment 09/19/23- Continue treatment Reason for continued inpatient stay Substantial Risk for: harm to self, inability to function and rapid decompensation Time Spent With Patient Time: Total time managing care of this patient today ____ minutes.
[2023-09-21] MEDS: Ibuprofen 600 MG TABLET PO ×3 (09:03→20:32)
[2023-09-21] MEDS: OLANZapine ODT 10 MG TAB.RAPDIS 20 MG TRANSLINGU ×2 (09:03→20:32)
--- NOTE | 2023-09-21 09:23 | HO.PSYCHPN ---
Subjective Subjective Date of Service: 09/21/23 Reason For Visit: Schizoaffective disorder Interim History: Improvec since admission. Tolerating medications well with no side effects. Review of Systems Review of Systems Reports chronic pain daily, however, today, reports she believes medication is helpful in managing the pain and it is decreasing. Yes all other systems are reviewed and are negative and Unobtainable due to mental status Mental Status Exam Mental Status Exam Narrative: Patient Appearance: Disheveled Patient Orientation: Person and Place Level of Consciousness: Awake, Drowsy and Alert Patient Behavior: Impulsive Mood Description: Labile Affect Description: Labile Patient Cognition Impaired: Yes Ability to Follow Directions: Fair Speech Pattern: Spontaneous Speech Memory Description: Remote Impaired Hallucinations: None Delusions: Present Thought Process: Distracted and Goal Oriented Thought Content: positive for [place] and positive for Circumstantial Abnormal Motor Activity Signs and Symptoms: Agitation (intermittent) Judgement: Poor Patient Appearance: Appropriate Patient Orientation: Person and Place Level of Consciousness: Awake and Alert Patient Behavior: Talkative and Pacing Behavior Comments: More pleasant Mood Description: Labile Affect Description: Labile Patient Cognition Impaired: Yes Ability to Follow Directions: Fair Speech Pattern: Spontaneous Speech Memory Description: Remote Impaired Diagnostics Vital Signs (24Hr): Vital Signs - 24 hr 09/20/23 19:43 Temperature 96.8 F Pulse Rate 93 Respiratory Rate 18 Blood Pressure 138/60 Pulse Oximetry 96 Oxygen Delivery Method Room Air BMI result Body Mass Index 37.7 Labs 06/25/23 17:59 06/25/23 17:59 Medications Medications Current Medications Al Hydroxide/Mg Hydroxide (Magnesium Hydrox/Alum Hydrox 30 Ml Oral.Susp) 30 ml PO Q6H PRN PRN Reason: Heartburn/Nausea Albuterol Sulfate (Albuterol Sulfate 90 Mcg 8 Gm Inhaler) 2 puff INHALE Q4H PRN PRN Reason: Wheezing Benztropine Mesylate (Benztropine Mesylate 1 Mg Tablet) 1 mg PO TID PRN PRN Reason: Extrapyramidal Effects Divalproex Sodium (Divalproex Sodium Er 500 Mg Tab.Er.24h) 500 mg PO BEDTIME [facility] Last Admin: 09/20/23 19:57 Dose: Not Given Duloxetine HCl (Duloxetine Hcl 20 Mg Capsule.Dr) 40 mg PO DAILY [facility] Last Admin: 09/21/23 09:05 Dose: Not Given Hydroxyzine HCl (Hydroxyzine Hcl 25 Mg Tablet) 25 mg PO Q6H PRN PRN Reason: Anxiety Ibuprofen (Ibuprofen 600 Mg Tablet) 600 mg PO Q4H PRN PRN Reason: moderate to severe pain Last Admin: 09/21/23 09:03 Dose: 600 mg Lorazepam (Lorazepam 0.5 Mg Tablet) 0.5 mg PO BID [facility] Last Admin: 09/21/23 09:05 Dose: Not Given Magnesium Hydroxide (Milk Of Magnesia 30 Ml Oral.Susp) 30 ml PO DAILY PRN PRN Reason: Constipation Metformin HCl (Metformin Hcl 500 Mg Tablet) 500 mg PO BID [facility] Last Admin: 09/21/23 09:05 Dose: Not Given Metronidazole (Metronidazole 0.75 % Gel 45 Gm Tube) 1 appl TOPICAL DAILY [facility] Last Admin: 09/21/23 09:05 Dose: Not Given Multi-Ingred Cream/Lotion/Oil/Oint (Mineral Oil/Petrolatum,White 106 Gm Tube) 1 appl TOPICAL BID [facility]; Protocol Last Admin: 09/21/23 09:05 Dose: Not Given Multivitamins/Vitamin C (Multivitamin Tablet) 1 tab PO DAILY [facility] Last Admin: 09/21/23 09:05 Dose: Not Given Nicotine Polacrilex (Nicotine Polacrilex Lozenge 2 Mg Lozenge) 2 mg BUCCAL Q2H PRN PRN Reason: Nicotine Cravings Olanzapine (Olanzapine Odt 10 Mg Tab.Rapdis) 10 mg TRANSLINGU DAILY PRN PRN Reason: Psychosis Last Admin: 08/04/23 17:34 Dose: 10 mg Olanzapine (Olanzapine 10 Mg Vial) 10 mg IM BID PRN PRN Reason: if refuses PO Zydis Last Admin: 08/13/23 09:17 Dose: 10 mg Olanzapine (Olanzapine Odt 10 Mg Tab.Rapdis) 20 mg TRANSLINGU BID [facility] Last Admin: 09/21/23 09:03 Dose: 20 mg Paliperidone Palmitate (Paliperidone Palmitate 234 Mg/1.5 Ml Syringe) 234 mg IM Q30D [facility] Last Admin: 09/20/23 11:36 Dose: Not Given Trazodone HCl (Trazodone Hcl 50 Mg Tablet) 50 mg PO BEDTIME MRX1 PRN PRN Reason: Insomnia Vitamin D (Cholecalciferol (Vitamin D3) 10 Mcg Tablet) 10 mcg PO DAILY [facility] Last Admin: 09/21/23 09:04 Dose: Not Given Allergies Allergies Allergy/AdvReac Type Severity Reaction Status Date / Time acetaminophen [From TYLENOL] Allergy Intermediate HIVES Verified 08/28/22 09:48 meperidine [From Demerol] Allergy Unknown Verified 08/28/22 09:48 Assessment & Plan Assessment & Plan (1) Schizoaffective disorder: Qualifiers: Schizoaffective disorder type: bipolar Qualified Code(s): F25.0 - Schizoaffective disorder, bipolar type Status: Acute Code(s): F25.9 - Schizoaffective disorder, unspecified Assessment and Plan: Presents with decompensation of schizoaffective disorder, while in group living environment. Not adherence appears to be a factor. Patient not engaging with interview, evaluation or adherent with medications ie declining same. Unable to care for self. Being held on a Section 12 that will on 07/02/23. In the meantime will try and establish report and encourage medication adherence. Plan 06/29: encourage med adherence. 07/01/23: Ensure tid Will file Section VII on 07/02/23. 07/02/23: HCP activated today. Martine Elder is willing to serve in this role. [phone]. 07/03/23: Encourage treatment compliance 07/04/23 Encourage treatment compliance, begin process of validating HCP with the courts in order to provide pt with psychopharmacology options. 07/05/23 Encourage treatment. 07/07 remains disorganized in speech and behavior; refusing meds, paranoid -continue process of affirming HCP 07/08- Continue current plan. 07/09 continue current treatment plan 07/11/23 continue current treatment plan 07/12: Continue current regimen and plans 07/13: Continue current regimen and plans 07/14: Continue current plans and regimen 07/15/23: Continue current tx. Initiate regime 07/16. 07/17/23: Continue to encourage treatment. 07/18/23: Add prn Zyprexa IM if she refuses HS dosing 07/19: Continue current management and treatment plan. 07/20: Continue current management and treatment plan. 07/22: Continue tx. 07/23: Continue tx 07/24: Encourage milieu participation 07/26/23 continues too labile to interact with others- 07/27/23 - CTP encourage treatment 07/27/22 Continue tx plan; encourge meds as approved by HCP and court 07/29/23 schedule olanzepine discontinued after on hold for several days; awaiting invega sustenna to alleviate some of the psychosis in hopes patient more engageable and able to participate in her treatment; PO meds still ordered and should be offered with statement that they are court ordered and approved by HCP. 07/30/23 pt showing slight improvement- continue treatment plan 07/31/23 continue tx plan 08/01/23 continue tx plan 08/01 -Intermittently angry and irritable. Said hello to financial underwriter but then when financial underwriter asked how she was doing said none of your business. -Made swiping motion as if to scratch towards several staff, saying it was a curse -Yelled at peer today due to disorganized thought that person should not be in group room; yell that another peer who was going into the community refrigerator since patient thinks that the refrigerator is her property; able to be redirected 08/02 screamed at financial underwriter and refused to enage. 08/03 staff agree Patient seems to be increasingly disorganized, walking briskly down the calle and yelling at peers, staff, making angry accusatory remarks and frightening and provoking some patients, causing some patients to become angry response. Will not engage with financial underwriter. -patient on Invega Sustenna however behaviors are problematic, upsetting and sometimes scary to both peers and staff. Patient psychotic illness has gone untreated for quite some time and it seems likely she will need p.o. to overlap long-acting medication. Finish Rolls Operator reached out to patient's healthcare proxy Brit Elder and left message to discuss treatment 08/06/23- Continue tx. Pt today able to reach out and initiate discussion. Benztropine 1 mg tid prn EPS 08/07/23- Continue tx. 08/12/23: Diagnostics 08/13/23. 08/16: continue current management and treatment plan. 08/23/23 improving adls and med compliance- but picks and chooses who she will interact with 08/26/23- Continue tx- attempt diagnostics again this week. 08/29/23- Continue to attempt to get pt involved in discharge planning and daily routine expectations. 08/31/23- Continue to attempt education regarding intrusive behaviors, reality testing 09/01/23- Depakote ER 500 mg HS Increase Olanzapine 20 mg bid 09/03/23: CBCD, CMP, A1c, Lipids, TSH 09/03 for first time, pt pleasant, cooperative with financial underwriter. c/o of some body aches but says ibuprofin helping. Has been asking nursing for discharge and responding angrily, saying she owns the hospital when request (for dc) not granted. 09/04 continue tx 09/05 continue tx 09/06 continue tx 09/12/23 Continue plan of care 09/12 Patient pleasant today; friendly with financial underwriter. No complaints, walking up and down the calle singing to herself. When financial underwriter was talking to another peer that she knows from the community, patient came up and encouraged this peer who was having a hard time. 09/13 remains much more pleasant and approachable, calm. dry skin vs psoriasis patches on face; will order lotion 09/14- Continue current regime and plan of care. 09/16- Residential team meeting 09/18/23. 09/18/23- Continue treatment 09/19/23- Continue treatment 09/20: continue current management and treatment plan. Reason for continued inpatient stay Substantial Risk for: inability to function and rapid decompensation Time Spent With Patient Time: Total time managing care of this patient today ____ minutes.
[2023-09-21 20:00] VITALS: BP 136/78; PULSE 103; RESP 16; TEMP 36.4; O2SAT 99
--- NOTE | 2023-09-22 09:56 | P.PNPSI_ITS ---
Subjective Subjective Date of Service: 09/22/23 Reason For Visit: Schizoaffective disorder Interim History: met with patient; discussed with team pt pleasant but says she's supposed to be discharged today; accepts redirection. Flat Folding Machine Operator shared however that expectation is that she'll start taking Depakote before she discharges, however she refused said i'm not depressed and walked away. Mental Status Exam Mental Status Exam Patient Appearance: Appropriate Patient Orientation: Person and Place Level of Consciousness: Awake and Alert Patient Behavior: Talkative and Pacing Behavior Comments: More pleasant Mood Description: Labile Affect Description: Labile Patient Cognition Impaired: Yes Ability to Follow Directions: Fair Speech Pattern: Spontaneous Speech Memory Description: Remote Impaired Hallucinations: None Delusions: Not Present (none expressed anyway) Thought Process: Distracted and Goal Oriented Thought Content: positive for Circ[place] Judgement: Fair Diagnostics Vital Signs (24Hr): Vital Signs - 24 hr 09/21/23 20:00 Temperature 97.6 F Pulse Rate 103 H Respiratory Rate 16 Blood Pressure 136/78 Pulse Oximetry 99 Oxygen Delivery Method Room Air BMI result Body Mass Index 37.7 Labs 06/25/23 17:59 06/25/23 17:59 Medications Medications Current Medications Al Hydroxide/Mg Hydroxide (Magnesium Hydrox/Alum Hydrox 30 Ml Oral.Susp) 30 ml PO Q6H PRN PRN Reason: Heartburn/Nausea Albuterol Sulfate (Albuterol Sulfate 90 Mcg 8 Gm Inhaler) 2 puff INHALE Q4H PRN PRN Reason: Wheezing Benztropine Mesylate (Benztropine Mesylate 1 Mg Tablet) 1 mg PO TID PRN PRN Reason: Extrapyramidal Effects Divalproex Sodium (Divalproex Sodium Er 500 Mg Tab.Er.24h) 500 mg PO BEDTIME [facility] Last Admin: 09/21/23 20:27 Dose: Not Given Duloxetine HCl (Duloxetine Hcl 20 Mg Capsule.Dr) 40 mg PO DAILY [facility] Last Admin: 09/21/23 09:05 Dose: Not Given Hydroxyzine HCl (Hydroxyzine Hcl 25 Mg Tablet) 25 mg PO Q6H PRN PRN Reason: Anxiety Ibuprofen (Ibuprofen 600 Mg Tablet) 600 mg PO Q4H PRN PRN Reason: moderate to severe pain Last Admin: 09/21/23 20:32 Dose: 600 mg Lorazepam (Lorazepam 0.5 Mg Tablet) 0.5 mg PO BID [facility] Last Admin: 09/21/23 20:27 Dose: Not Given Magnesium Hydroxide (Milk Of Magnesia 30 Ml Oral.Susp) 30 ml PO DAILY PRN PRN Reason: Constipation Metformin HCl (Metformin Hcl 500 Mg Tablet) 500 mg PO BID [facility] Last Admin: 09/21/23 20:28 Dose: Not Given Metronidazole (Metronidazole 0.75 % Gel 45 Gm Tube) 1 appl TOPICAL DAILY [facility] Last Admin: 09/21/23 09:05 Dose: Not Given Multi-Ingred Cream/Lotion/Oil/Oint (Mineral Oil/Petrolatum,White 106 Gm Tube) 1 appl TOPICAL BID [facility]; Protocol Last Admin: 09/21/23 20:28 Dose: Not Given Multivitamins/Vitamin C (Multivitamin Tablet) 1 tab PO DAILY [facility] Last Admin: 09/21/23 09:05 Dose: Not Given Nicotine Polacrilex (Nicotine Polacrilex Lozenge 2 Mg Lozenge) 2 mg BUCCAL Q2H PRN PRN Reason: Nicotine Cravings Olanzapine (Olanzapine Odt 10 Mg Tab.Rapdis) 10 mg TRANSLINGU DAILY PRN PRN Reason: Psychosis Last Admin: 08/04/23 17:34 Dose: 10 mg Olanzapine (Olanzapine 10 Mg Vial) 10 mg IM BID PRN PRN Reason: if refuses PO Zydis Last Admin: 08/13/23 09:17 Dose: 10 mg Olanzapine (Olanzapine Odt 10 Mg Tab.Rapdis) 20 mg TRANSLINGU BID [facility] Last Admin: 09/21/23 20:32 Dose: 20 mg Paliperidone Palmitate (Paliperidone Palmitate 234 Mg/1.5 Ml Syringe) 234 mg IM Q30D [facility] Last Admin: 09/20/23 11:36 Dose: Not Given Trazodone HCl (Trazodone Hcl 50 Mg Tablet) 50 mg PO BEDTIME MRX1 PRN PRN Reason: Insomnia Vitamin D (Cholecalciferol (Vitamin D3) 10 Mcg Tablet) 10 mcg PO DAILY [facility] Last Admin: 09/21/23 09:04 Dose: Not Given Allergies Allergies Allergy/AdvReac Type Severity Reaction Status Date / Time acetaminophen [From TYLENOL] Allergy Intermediate HIVES Verified 08/28/22 09:48 meperidine [From Demerol] Allergy Unknown Verified 08/28/22 09:48 Assessment & Plan Assessment & Plan (1) Schizoaffective disorder: Qualifiers: Schizoaffective disorder type: bipolar Qualified Code(s): F25.0 - Schizoaffective disorder, bipolar type Status: Acute Code(s): F25.9 - Schizoaffective disorder, unspecified Assessment and Plan: Presents with decompensation of schizoaffective disorder, while in group living environment. Not adherence appears to be a factor. Patient not engaging with interview, evaluation or adherent with medications ie declining same. Unable to care for self. Being held on a Section 12 that will on 07/02/23. In the meantime will try and establish report and encourage medication adherence. Plan 06/29: encourage med adherence. 07/01/23: Ensure tid Will file Section VII on 07/02/23. 07/02/23: HCP activated today. Martine Elder is willing to serve in this role. [phone]. 07/03/23: Encourage treatment compliance 07/04/23 Encourage treatment compliance, begin process of validating HCP with the courts in order to provide pt with psychopharmacology options. 07/05/23 Encourage treatment. 07/07 remains disorganized in speech and behavior; refusing meds, paranoid -continue process of affirming HCP 07/08- Continue current plan. 07/09 continue current treatment plan 07/11/23 continue current treatment plan 07/12: Continue current regimen and plans 07/13: Continue current regimen and plans 07/14: Continue current plans and regimen 07/15/23: Continue current tx. Initiate regime 07/16. 07/17/23: Continue to encourage treatment. 07/18/23: Add prn Zyprexa IM if she refuses HS dosing 07/19: Continue current management and treatment plan. 07/20: Continue current management and treatment plan. 07/22: Continue tx. 07/23: Continue tx 07/24: Encourage milieu participation 07/26/23 continues too labile to interact with others- 07/27/23 - CTP encourage treatment 07/27/22 Continue tx plan; encourge meds as approved by HCP and court 07/29/23 schedule olanzepine discontinued after on hold for several days; awaiting invega sustenna to alleviate some of the psychosis in hopes patient more engageable and able to participate in her treatment; PO meds still ordered and should be offered with statement that they are court ordered and approved by HCP. 07/30/23 pt showing slight improvement- continue treatment plan 07/31/23 continue tx plan 08/01/23 continue tx plan 08/01 -Intermittently angry and irritable. Said hello to senior grant writer but then when senior grant writer asked how she was doing said none of your business. -Made swiping motion as if to scratch towards several staff, saying it was a curse -Yelled at peer today due to disorganized thought that person should not be in group room; yell that another peer who was going into the community refrigerator since patient thinks that the refrigerator is her property; able to be redirected 08/02 screamed at senior grant writer and refused to enage. 08/03 staff agree Patient seems to be increasingly disorganized, walking briskly down the calle and yelling at peers, staff, making angry accusatory remarks and frightening and provoking some patients, causing some patients to become angry response. Will not engage with senior grant writer. -patient on Invega Sustenna however behaviors are problematic, upsetting and sometimes scary to both peers and staff. Patient psychotic illness has gone untreated for quite some time and it seems likely she will need p.o. to overlap long-acting medication. Flat Folding Machine Operator reached out to patient's healthcare proxy Brit Elder and left message to discuss treatment 08/06/23- Continue tx. Pt today able to reach out and initiate discussion. Benztropine 1 mg tid prn EPS 08/07/23- Continue tx. 08/12/23: Diagnostics 08/13/23. 08/16: continue current management and treatment plan. 08/23/23 improving adls and med compliance- but picks and chooses who she will interact with 08/26/23- Continue tx- attempt diagnostics again this week. 08/29/23- Continue to attempt to get pt involved in discharge planning and daily routine expectations. 08/31/23- Continue to attempt education regarding intrusive behaviors, reality testing 09/01/23- Depakote ER 500 mg HS Increase Olanzapine 20 mg bid 09/03/23: CBCD, CMP, A1c, Lipids, TSH 09/03 for first time, pt pleasant, cooperative with senior grant writer. c/o of some body aches but says ibuprofin helping. Has been asking nursing for discharge and responding angrily, saying she owns the hospital when request (for dc) not granted. 09/04 continue tx 09/05 continue tx 09/06 continue tx 09/12/23 Continue plan of care 09/12 Patient pleasant today; friendly with senior grant writer. No complaints, walking up and down the calle singing to herself. When senior grant writer was talking to another peer that she knows from the community, patient came up and encouraged this peer who was having a hard time. 09/13 remains much more pleasant and approachable, calm. dry skin vs psoriasis patches on face; will order lotion 09/14- Continue current regime and plan of care. 09/16- Residential team meeting 09/18/23. 09/18/23- Continue treatment 09/19/23- Continue treatment 09/20: continue current management and treatment plan. Patient educated on: diagnosis and medication risk/benefits Informed Consent: does not understand Reason for continued inpatient stay Substantial Risk for: inability to function Time Spent With Patient Time: Total time managing care of this patient today ____ minutes.
[2023-09-22] MEDS: Ibuprofen 600 MG TABLET PO ×2 (10:33→16:14)
[2023-09-22] MEDS: OLANZapine ODT 10 MG TAB.RAPDIS 20 MG TRANSLINGU ×2 (10:34→20:49)
[2023-09-22 10:52] VITALS: RESP 16
[2023-09-22 20:00] VITALS: BP 136/70; PULSE 109; RESP 18; TEMP 36.5; O2SAT 96
[2023-09-23 07:30] VITALS: BP 136/70; PULSE 78; RESP 16; TEMP 36.3; O2SAT 95
[2023-09-23] MEDS: OLANZapine ODT 10 MG TAB.RAPDIS 20 MG TRANSLINGU ×2 (08:53→19:52)
[2023-09-23] MEDS: Ibuprofen 600 MG TABLET PO (08:53)
--- NOTE | 2023-09-23 19:07 | P.PNPSI_ITS ---
Subjective Subjective Date of Service: 09/23/23 Reason For Visit: Schizoaffective disorder Subjective Notes: Conditional Voluntary Healthcare Proxy: Yes Guardianship: No Medical Problems Affecting Mental Status: No Interim History: Approachable, yet confrontational at times. 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 Reality testing consistently done. Medication Compliance: Intermittent Side effects from medications: No Attending Groups: No Review of Systems Acute medical concerns: No Medical Review of Systems: unchanged Review of Systems Review of Systems Yes all other systems are reviewed and are negative and Unobtainable due to mental status Mental Status Exam Mental Status Exam Patient Appearance: Appropriate Patient Orientation: Person and Place Level of Consciousness: Awake and Alert Patient Behavior: Talkative and Pacing Behavior Comments: More pleasant Mood Description: Labile Affect Description: Labile Patient Cognition Impaired: Yes Ability to Follow Directions: Fair Speech Pattern: Spontaneous Speech Memory Description: Remote Impaired Hallucinations: None Delusions: Not Present (none expressed anyway) Thought Process: Distracted and Goal Oriented Thought Content: positive for Circumstantial Judgement: Fair Diagnostics Vital Signs (24Hr): Vital Signs - 24 hr 09/22/23 20:00 09/23/23 07:30 Temperature 97.7 F 97.3 F Pulse Rate 109 H 78 Respiratory Rate 18 16 Blood Pressure 136/70 136/70 Pulse Oximetry 96 95 Oxygen Delivery Method Room Air Room Air BMI result Body Mass Index 37.7 Labs 06/25/23 17:59 06/25/23 17:59 Medications Medications Current Medications Al Hydroxide/Mg Hydroxide (Magnesium Hydrox/Alum Hydrox 30 Ml Oral.Susp) 30 ml PO Q6H PRN PRN Reason: Heartburn/Nausea Albuterol Sulfate (Albuterol Sulfate 90 Mcg 8 Gm Inhaler) 2 puff INHALE Q4H PRN PRN Reason: Wheezing Benztropine Mesylate (Benztropine Mesylate 1 Mg Tablet) 1 mg PO TID PRN PRN Reason: Extrapyramidal Effects Divalproex Sodium (Divalproex Sodium Er 500 Mg Tab.Er.24h) 500 mg PO BEDTIME [facility] Last Admin: 09/22/23 20:52 Dose: Not Given Duloxetine HCl (Duloxetine Hcl 20 Mg Capsule.Dr) 40 mg PO DAILY [facility] Last Admin: 09/23/23 08:58 Dose: Not Given Hydroxyzine HCl (Hydroxyzine Hcl 25 Mg Tablet) 25 mg PO Q6H PRN PRN Reason: Anxiety Ibuprofen (Ibuprofen 600 Mg Tablet) 600 mg PO Q4H PRN PRN Reason: moderate to severe pain Last Admin: 09/23/23 08:53 Dose: 600 mg Lorazepam (Lorazepam 0.5 Mg Tablet) 0.5 mg PO BID [facility] Last Admin: 09/23/23 08:58 Dose: Not Given Magnesium Hydroxide (Milk Of Magnesia 30 Ml Oral.Susp) 30 ml PO DAILY PRN PRN Reason: Constipation Metformin HCl (Metformin Hcl 500 Mg Tablet) 500 mg PO BID [facility] Last Admin: 09/23/23 08:58 Dose: Not Given Metronidazole (Metronidazole 0.75 % Gel 45 Gm Tube) 1 appl TOPICAL DAILY [facility] Last Admin: 09/23/23 08:59 Dose: Not Given Multi-Ingred Cream/Lotion/Oil/Oint (Mineral Oil/Petrolatum,White 106 Gm Tube) 1 appl TOPICAL BID [facility]; Protocol Last Admin: 09/23/23 08:59 Dose: Not Given Multivitamins/Vitamin C (Multivitamin Tablet) 1 tab PO DAILY [facility] Last Admin: 09/23/23 08:59 Dose: Not Given Nicotine Polacrilex (Nicotine Polacrilex Lozenge 2 Mg Lozenge) 2 mg BUCCAL Q2H PRN PRN Reason: Nicotine Cravings Olanzapine (Olanzapine Odt 10 Mg Tab.Rapdis) 10 mg TRANSLINGU DAILY PRN PRN Reason: Psychosis Last Admin: 08/04/23 17:34 Dose: 10 mg Olanzapine (Olanzapine 10 Mg Vial) 10 mg IM BID PRN PRN Reason: if refuses PO Zydis Last Admin: 08/13/23 09:17 Dose: 10 mg Olanzapine (Olanzapine Odt 10 Mg Tab.Rapdis) 20 mg TRANSLINGU BID [facility] Last Admin: 09/23/23 08:53 Dose: 20 mg Paliperidone Palmitate (Paliperidone Palmitate 234 Mg/1.5 Ml Syringe) 234 mg IM Q30D [facility] Last Admin: 09/20/23 11:36 Dose: Not Given Trazodone HCl (Trazodone Hcl 50 Mg Tablet) 50 mg PO BEDTIME MRX1 PRN PRN Reason: Insomnia Vitamin D (Cholecalciferol (Vitamin D3) 10 Mcg Tablet) 10 mcg PO DAILY [facility] Last Admin: 09/23/23 08:58 Dose: Not Given Allergies Allergies Allergy/AdvReac Type Severity Reaction Status Date / Time acetaminophen [From TYLENOL] Allergy Intermediate HIVES Verified 08/28/22 09:48 meperidine [From Demerol] Allergy Unknown Verified 08/28/22 09:48 Assessment & Plan Assessment & Plan (1) Schizoaffective disorder: Qualifiers: Schizoaffective disorder type: bipolar Qualified Code(s): F25.0 - Schizoaffective disorder, bipolar type Status: Acute Code(s): F25.9 - Schizoaffective disorder, unspecified Assessment and Plan: Presents with decompensation of schizoaffective disorder, while in group living environment. Not adherence appears to be a factor. Patient not engaging with interview, evaluation or adherent with medications ie declining same. Unable to care for self. Being held on a Section 12 that will on 07/02/23. In the meantime will try and establish report and encourage medication adherence. Plan 06/29: encourage med adherence. 07/01/23: Ensure tid Will file Section VII on 07/02/23. 07/02/23: HCP activated today. Martine Elder is willing to serve in this role. [phone]. 07/03/23: Encourage treatment compliance 07/04/23 Encourage treatment compliance, begin process of validating HCP with the courts in order to provide pt with psychopharmacology options. 07/05/23 Encourage treatment. 07/07 remains disorganized in speech and behavior; refusing meds, paranoid -continue process of affirming HCP 07/08- Continue current plan. 07/09 continue current treatment plan 07/11/23 continue current treatment plan 07/12: Continue current regimen and plans 07/13: Continue current regimen and plans 07/14: Continue current plans and regimen 07/15/23: Continue current tx. Initiate regime 07/16. 07/17/23: Continue to encourage treatment. 07/18/23: Add prn Zyprexa IM if she refuses HS dosing 07/19: Continue current management and treatment plan. 07/20: Continue current management and treatment plan. 07/22: Continue tx. 07/23: Continue tx 07/24: Encourage milieu participation 07/26/23 continues too labile to interact with others- 07/27/23 - CTP encourage treatment 07/27/22 Continue tx plan; encourge meds as approved by HCP and court 07/29/23 schedule olanzepine discontinued after on hold for several days; awaiting invega sustenna to alleviate some of the psychosis in hopes patient more engageable and able to participate in her treatment; PO meds still ordered and should be offered with statement that they are court ordered and approved by HCP. 07/30/23 pt showing slight improvement- continue treatment plan 07/31/23 continue tx plan 08/01/23 continue tx plan 08/01 -Intermittently angry and irritable. Said hello to bond underwriter but then when bond underwriter asked how she was doing said none of your business. -Made swiping motion as if to scratch towards several staff, saying it was a curse -Yelled at peer today due to disorganized thought that person should not be in group room; yell that another peer who was going into the community refrigerator since patient thinks that the refrigerator is her property; able to be redirected 08/02 screamed at bond underwriter and refused to enage. 08/03 staff agree Patient seems to be increasingly disorganized, walking briskly down the calle and yelling at peers, staff, making angry accusatory remarks and frightening and provoking some patients, causing some patients to become angry response. Will not engage with bond underwriter. -patient on Invega Sustenna however behaviors are problematic, upsetting and sometimes scary to both peers and staff. Patient psychotic illness has gone untreated for quite some time and it seems likely she will need p.o. to overlap long-acting medication. [employer] reached out to patient's healthcare proxy Brit Elder and left message to discuss treatment 08/06/23- Continue tx. Pt today able to reach out and initiate discussion. Benztropine 1 mg tid prn EPS 08/07/23- Continue tx. 08/12/23: Diagnostics 08/13/23. 08/16: continue current management and treatment plan. 08/23/23 improving adls and med compliance- but picks and chooses who she will interact with 08/26/23- Continue tx- attempt diagnostics again this week. 08/29/23- Continue to attempt to get pt involved in discharge planning and daily routine expectations. 08/31/23- Continue to attempt education regarding intrusive behaviors, reality testing 09/01/23- Depakote ER 500 mg HS Increase Olanzapine 20 mg bid 09/03/23: CBCD, CMP, A1c, Lipids, TSH 09/03 for first time, pt pleasant, cooperative with bond underwriter. c/o of some body aches but says ibuprofin helping. Has been asking nursing for discharge and responding angrily, saying she owns the hospital when request (for dc) not granted. 09/04 continue tx 09/05 continue tx 09/06 continue tx 09/12/23 Continue plan of care 09/12 Patient pleasant today; friendly with bond underwriter. No complaints, walking up and down the calle singing to herself. When bond underwriter was talking to another peer that she knows from the community, patient came up and encouraged this peer who was having a hard time. 09/13 remains much more pleasant and approachable, calm. dry skin vs psoriasis patches on face; will order lotion 09/14- Continue current regime and plan of care. 09/16- Residential team meeting 09/18/23. 09/18/23- Continue treatment 09/19/23- Continue treatment 09/20: continue current management and treatment plan. 09/23/23: Continue treatment Reason for continued inpatient stay Substantial Risk for: rapid decompensation Time Spent With Patient Time: Total time managing care of this patient today ____ minutes.
--- NOTE | 2023-09-23 19:16 | HO.PSYCHPN ---
Subjective Subjective Reason For Visit: Schizoaffective disorder Diagnostics Vital Signs (24Hr): Vital Signs - 24 hr 09/22/23 20:00 09/23/23 07:30 Temperature 97.7 F 97.3 F Pulse Rate 109 H 78 Respiratory Rate 18 16 Blood Pressure 136/70 136/70 Pulse Oximetry 96 95 Oxygen Delivery Method Room Air Room Air BMI result Body Mass Index 37.7 Labs 06/25/23 17:59 06/25/23 17:59 Medications Medications Current Medications Al Hydroxide/Mg Hydroxide (Magnesium Hydrox/Alum Hydrox 30 Ml Oral.Susp) 30 ml PO Q6H PRN PRN Reason: Heartburn/Nausea Albuterol Sulfate (Albuterol Sulfate 90 Mcg 8 Gm Inhaler) 2 puff INHALE Q4H PRN PRN Reason: Wheezing Benztropine Mesylate (Benztropine Mesylate 1 Mg Tablet) 1 mg PO TID PRN PRN Reason: Extrapyramidal Effects Divalproex Sodium (Divalproex Sodium Er 500 Mg Tab.Er.24h) 500 mg PO BEDTIME [facility] Last Admin: 09/22/23 20:52 Dose: Not Given Duloxetine HCl (Duloxetine Hcl 20 Mg Capsule.Dr) 40 mg PO DAILY [facility] Last Admin: 09/23/23 08:58 Dose: Not Given Hydroxyzine HCl (Hydroxyzine Hcl 25 Mg Tablet) 25 mg PO Q6H PRN PRN Reason: Anxiety Ibuprofen (Ibuprofen 600 Mg Tablet) 600 mg PO Q4H PRN PRN Reason: moderate to severe pain Last Admin: 09/23/23 08:53 Dose: 600 mg Lorazepam (Lorazepam 0.5 Mg Tablet) 0.5 mg PO BID [facility] Last Admin: 09/23/23 08:58 Dose: Not Given Magnesium Hydroxide (Milk Of Magnesia 30 Ml Oral.Susp) 30 ml PO DAILY PRN PRN Reason: Constipation Metformin HCl (Metformin Hcl 500 Mg Tablet) 500 mg PO BID [facility] Last Admin: 09/23/23 08:58 Dose: Not Given Metronidazole (Metronidazole 0.75 % Gel 45 Gm Tube) 1 appl TOPICAL DAILY [facility] Last Admin: 09/23/23 08:59 Dose: Not Given Multi-Ingred Cream/Lotion/Oil/Oint (Mineral Oil/Petrolatum,White 106 Gm Tube) 1 appl TOPICAL BID [facility]; Protocol Last Admin: 04/30/24 08:59 Dose: Not Given Multivitamins/Vitamin C (Multivitamin Tablet) 1 tab PO DAILY [facility] Last Admin: 09/23/23 08:59 Dose: Not Given Nicotine Polacrilex (Nicotine Polacrilex Lozenge 2 Mg Lozenge) 2 mg BUCCAL Q2H PRN PRN Reason: Nicotine Cravings Olanzapine (Olanzapine Odt 10 Mg Tab.Rapdis) 10 mg TRANSLINGU DAILY PRN PRN Reason: Psychosis Last Admin: 08/04/23 17:34 Dose: 10 mg Olanzapine (Olanzapine 10 Mg Vial) 10 mg IM BID PRN PRN Reason: if refuses PO Zydis Last Admin: 08/13/23 09:17 Dose: 10 mg Olanzapine (Olanzapine Odt 10 Mg Tab.Rapdis) 20 mg TRANSLINGU BID [facility] Last Admin: 09/23/23 08:53 Dose: 20 mg Paliperidone Palmitate (Paliperidone Palmitate 234 Mg/1.5 Ml Syringe) 234 mg IM Q30D [facility] Last Admin: 09/20/23 11:36 Dose: Not Given Trazodone HCl (Trazodone Hcl 50 Mg Tablet) 50 mg PO BEDTIME MRX1 PRN PRN Reason: Insomnia Vitamin D (Cholecalciferol (Vitamin D3) 10 Mcg Tablet) 10 mcg PO DAILY [facility] Last Admin: 09/23/23 08:58 Dose: Not Given Allergies Allergies Allergy/AdvReac Type Severity Reaction Status Date / Time acetaminophen [From TYLENOL] Allergy Intermediate HIVES Verified 08/28/22 09:48 meperidine [From Demerol] Allergy Unknown Verified 08/28/22 09:48 Assessment & Plan Assessment & Plan (1) Schizoaffective disorder: Qualifiers: Schizoaffective disorder type: bipolar Qualified Code(s): F25.0 - Schizoaffective disorder, bipolar type Status: Acute Code(s): F25.9 - Schizoaffective disorder, unspecified Assessment and Plan: Presents with decompensation of schizoaffective disorder, while in group living environment. Not adherence appears to be a factor. Patient not engaging with interview, evaluation or adherent with medications ie declining same. Unable to care for self. Being held on a Section 12 that will on 07/02/23. In the meantime will try and establish report and encourage medication adherence. Plan 06/29: encourage med adherence. 07/01/23: Ensure tid Will file Section VII on 07/02/23. 07/02/23: HCP activated today. Martine Elder is willing to serve in this role. [phone]. 07/03/23: Encourage treatment compliance 07/04/23 Encourage treatment compliance, begin process of validating HCP with the courts in order to provide pt with psychopharmacology options. 07/05/23 Encourage treatment. 07/07 remains disorganized in speech and behavior; refusing meds, paranoid -continue process of affirming HCP 07/08- Continue current plan. 07/09 continue current treatment plan 07/11/23 continue current treatment plan 07/12: Continue current regimen and plans 07/13: Continue current regimen and plans 07/14: Continue current plans and regimen 07/15/23: Continue current tx. Initiate regime 07/16. 07/17/23: Continue to encourage treatment. 07/18/23: Add prn Zyprexa IM if she refuses HS dosing 07/19: Continue current management and treatment plan. 07/20: Continue current management and treatment plan. 07/22: Continue tx. 07/23: Continue tx 07/24: Encourage milieu participation 07/26/23 continues too labile to interact with others- 07/27/23 - CTP encourage treatment 07/27/22 Continue tx plan; encourge meds as approved by HCP and court 07/29/23 schedule olanzepine discontinued after on hold for several days; awaiting invega sustenna to alleviate some of the psychosis in hopes patient more engageable and able to participate in her treatment; PO meds still ordered and should be offered with statement that they are court ordered and approved by HCP. 07/30/23 pt showing slight improvement- continue treatment plan 07/31/23 continue tx plan 08/01/23 continue tx plan 08/01 -Intermittently angry and irritable. Said hello to technical publications writer but then when technical publications writer asked how she was doing said none of your business. -Made swiping motion as if to scratch towards several staff, saying it was a curse -Yelled at peer today due to disorganized thought that person should not be in group room; yell that another peer who was going into the community refrigerator since patient thinks that the refrigerator is her property; able to be redirected 08/02 screamed at technical publications writer and refused to enage. 08/03 staff agree Patient seems to be increasingly disorganized, walking briskly down the calle and yelling at peers, staff, making angry accusatory remarks and frightening and provoking some patients, causing some patients to become angry response. Will not engage with technical publications writer. -patient on Invega Sustenna however behaviors are problematic, upsetting and sometimes scary to both peers and staff. Patient psychotic illness has gone untreated for quite some time and it seems likely she will need p.o. to overlap long-acting medication. [employer] reached out to patient's healthcare proxy Brit Elder and left message to discuss treatment 08/06/23- Continue tx. Pt today able to reach out and initiate discussion. Benztropine 1 mg tid prn EPS 08/07/23- Continue tx. 08/12/23: Diagnostics 08/13/23. 08/16: continue current management and treatment plan. 08/23/23 improving adls and med compliance- but picks and chooses who she will interact with 08/26/23- Continue tx- attempt diagnostics again this week. 08/29/23- Continue to attempt to get pt involved in discharge planning and daily routine expectations. 08/31/23- Continue to attempt education regarding intrusive behaviors, reality testing 09/01/23- Depakote ER 500 mg HS Increase Olanzapine 20 mg bid 09/03/23: CBCD, CMP, A1c, Lipids, TSH 09/03 for first time, pt pleasant, cooperative with technical publications writer. c/o of some body aches but says ibuprofin helping. Has been asking nursing for discharge and responding angrily, saying she owns the hospital when request (for dc) not granted. 09/04 continue tx 09/05 continue tx 09/06 continue tx 09/12/23 Continue plan of care 09/12 Patient pleasant today; friendly with technical publications writer. No complaints, walking up and down the calle singing to herself. When technical publications writer was talking to another peer that she knows from the community, patient came up and encouraged this peer who was having a hard time. 09/13 remains much more pleasant and approachable, calm. dry skin vs psoriasis patches on face; will order lotion 09/14- Continue current regime and plan of care. 09/16- Residential team meeting 09/18/23. 09/18/23- Continue treatment 09/19/23- Continue treatment 09/20: continue current management and treatment plan. 09/23/23: Continue treatment Time Spent With Patient Time: Total time managing care of this patient today ____ minutes.
[2023-09-23 20:00] VITALS: RESP 16
[2023-09-24] MEDS: OLANZapine ODT 10 MG TAB.RAPDIS 20 MG TRANSLINGU (09:56)
[2023-09-24] MEDS: Ibuprofen 600 MG TABLET PO (10:39)
--- NOTE | 2023-09-24 19:21 | HO.PSYCHPN ---
Subjective Subjective Date of Service: 09/24/23 Reason For Visit: Schizoaffective disorder Subjective Notes: Conditional Voluntary Healthcare Proxy: Yes Guardianship: No Medical Problems Affecting Mental Status: No Interim History: Pt continues to present with delusional ideas about her ownership and control [facility] [place]. She asks regularly about going home and criteria are reviewed with her that she will not accept. Medication Compliance: Intermittent Side effects from medications: No Attending Groups: No Review of Systems Acute medical concerns: No Medical Review of Systems: unchanged Review of Systems Review of Systems Yes all other systems are reviewed and are negative Mental Status Exam Mental Status Exam Patient Appearance: Appropriate Patient Orientation: Person and Place Level of Consciousness: Awake and Alert Patient Behavior: Talkative and Pacing Behavior Comments: More pleasant Mood Description: Labile Affect Description: Labile Patient Cognition Impaired: Yes Ability to Follow Directions: Fair Speech Pattern: Spontaneous Speech Memory Description: Remote Impaired Hallucinations: None Delusions: Paranoid Ideation, Grandiose and Present Thought Process: Distracted and Goal Oriented Thought Content: positive for Circumstantial Judgement: Fair Diagnostics Vital Signs (24Hr): Vital Signs - 24 hr 09/23/23 20:00 Respiratory Rate 16 BMI result Body Mass Index 37.7 Labs 06/25/23 17:59 06/25/23 17:59 Medications Medications Current Medications Al Hydroxide/Mg Hydroxide (Magnesium Hydrox/Alum Hydrox 30 Ml Oral.Susp) 30 ml PO Q6H PRN PRN Reason: Heartburn/Nausea Albuterol Sulfate (Albuterol Sulfate 90 Mcg 8 Gm Inhaler) 2 puff INHALE Q4H PRN PRN Reason: Wheezing Benztropine Mesylate (Benztropine Mesylate 1 Mg Tablet) 1 mg PO TID PRN PRN Reason: Extrapyramidal Effects Divalproex Sodium (Divalproex Sodium Er 500 Mg Tab.Er.24h) 500 mg PO BEDTIME [facility] Last Admin: 09/23/23 19:56 Dose: Not Given Duloxetine HCl (Duloxetine Hcl 20 Mg Capsule.Dr) 40 mg PO DAILY [facility] Last Admin: 09/24/23 09:55 Dose: Not Given Hydroxyzine HCl (Hydroxyzine Hcl 25 Mg Tablet) 25 mg PO Q6H PRN PRN Reason: Anxiety Ibuprofen (Ibuprofen 600 Mg Tablet) 600 mg PO Q4H PRN PRN Reason: moderate to severe pain Last Admin: 09/24/23 10:39 Dose: 600 mg Lorazepam (Lorazepam 0.5 Mg Tablet) 0.5 mg PO BID [facility] Last Admin: 09/24/23 09:55 Dose: Not Given Magnesium Hydroxide (Milk Of Magnesia 30 Ml Oral.Susp) 30 ml PO DAILY PRN PRN Reason: Constipation Metronidazole (Metronidazole 0.75 % Gel 45 Gm Tube) 1 appl TOPICAL DAILY [facility] Last Admin: 09/24/23 09:55 Dose: Not Given Multi-Ingred Cream/Lotion/Oil/Oint (Mineral Oil/Petrolatum,White 106 Gm Tube) 1 appl TOPICAL BID [facility]; Protocol Last Admin: 09/24/23 09:55 Dose: Not Given Multivitamins/Vitamin C (Multivitamin Tablet) 1 tab PO DAILY [facility] Last Admin: 09/24/23 09:55 Dose: Not Given Olanzapine (Olanzapine Odt 10 Mg Tab.Rapdis) 10 mg TRANSLINGU DAILY PRN PRN Reason: Psychosis Last Admin: 08/04/23 17:34 Dose: 10 mg Olanzapine (Olanzapine 10 Mg Vial) 10 mg IM BID PRN PRN Reason: if refuses PO Zydis Last Admin: 08/13/23 09:17 Dose: 10 mg Olanzapine (Olanzapine Odt 10 Mg Tab.Rapdis) 20 mg TRANSLINGU BID [facility] Last Admin: 09/24/23 09:56 Dose: 20 mg Paliperidone Palmitate (Paliperidone Palmitate 234 Mg/1.5 Ml Syringe) 234 mg IM Q30D [facility] Last Admin: 09/20/23 11:36 Dose: Not Given Trazodone HCl (Trazodone Hcl 50 Mg Tablet) 50 mg PO BEDTIME MRX1 PRN PRN Reason: Insomnia Vitamin D (Cholecalciferol (Vitamin D3) 10 Mcg Tablet) 10 mcg PO DAILY [facility] Last Admin: 09/24/23 09:55 Dose: Not Given Allergies Allergies Allergy/AdvReac Type Severity Reaction Status Date / Time acetaminophen [From TYLENOL] Allergy Intermediate HIVES Verified 08/28/22 09:48 meperidine [From Demerol] Allergy Unknown Verified 08/28/22 09:48 Assessment & Plan Assessment & Plan (1) Schizoaffective disorder: Qualifiers: Schizoaffective disorder type: bipolar Qualified Code(s): F25.0 - Schizoaffective disorder, bipolar type Status: Acute Code(s): F25.9 - Schizoaffective disorder, unspecified Assessment and Plan: Presents with decompensation of schizoaffective disorder, while in group living environment. Not adherence appears to be a factor. Patient not engaging with interview, evaluation or adherent with medications ie declining same. Unable to care for self. Being held on a Section 12 that will on 07/02/23. In the meantime will try and establish report and encourage medication adherence. Plan 06/29: encourage med adherence. 07/01/23: Ensure tid Will file Section VII on 07/02/23. 07/02/23: HCP activated today. Martine Elder is willing to serve in this role. [phone]. 07/03/23: Encourage treatment compliance 07/04/23 Encourage treatment compliance, begin process of validating HCP with the courts in order to provide pt with psychopharmacology options. 07/05/23 Encourage treatment. 07/07 remains disorganized in speech and behavior; refusing meds, paranoid -continue process of affirming HCP 07/08- Continue current plan. 07/09 continue current treatment plan 07/11/23 continue current treatment plan 07/12: Continue current regimen and plans 07/13: Continue current regimen and plans 07/14: Continue current plans and regimen 07/15/23: Continue current tx. Initiate regime 07/16. 07/17/23: Continue to encourage treatment. 07/18/23: Add prn Zyprexa IM if she refuses HS dosing 07/19: Continue current management and treatment plan. 07/20: Continue current management and treatment plan. 07/22: Continue tx. 07/23: Continue tx 07/24: Encourage milieu participation 07/26/23 continues too labile to interact with others- 07/27/23 - CTP encourage treatment 07/27/22 Continue tx plan; encourge meds as approved by HCP and court 07/29/23 schedule olanzepine discontinued after on hold for several days; awaiting invega sustenna to alleviate some of the psychosis in hopes patient more engageable and able to participate in her treatment; PO meds still ordered and should be offered with statement that they are court ordered and approved by HCP. 07/30/23 pt showing slight improvement- continue treatment plan 07/31/23 continue tx plan 08/01/23 continue tx plan 08/01 -Intermittently angry and irritable. Said hello to machine sign writer but then when machine sign writer asked how she was doing said none of your business. -Made swiping motion as if to scratch towards several staff, saying it was a curse -Yelled at peer today due to disorganized thought that person should not be in group room; yell that another peer who was going into the community refrigerator since patient thinks that the refrigerator is her property; able to be redirected 08/02 screamed at machine sign writer and refused to enage. 08/03 staff agree Patient seems to be increasingly disorganized, walking briskly down the calle and yelling at peers, staff, making angry accusatory remarks and frightening and provoking some patients, causing some patients to become angry response. Will not engage with machine sign writer. -patient on Invega Sustenna however behaviors are problematic, upsetting and sometimes scary to both peers and staff. Patient psychotic illness has gone untreated for quite some time and it seems likely she will need p.o. to overlap long-acting medication. Air [employer] reached out to patient's healthcare proxy Brit Elder and left message to discuss treatment 08/06/23- Continue tx. Pt today able to reach out and initiate discussion. Benztropine 1 mg tid prn EPS 08/07/23- Continue tx. 08/12/23: Diagnostics 08/13/23. 08/16: continue current management and treatment plan. 08/23/23 improving adls and med compliance- but picks and chooses who she will interact with 08/26/23- Continue tx- attempt diagnostics again this week. 08/29/23- Continue to attempt to get pt involved in discharge planning and daily routine expectations. 08/31/23- Continue to attempt education regarding intrusive behaviors, reality testing 09/01/23- Depakote ER 500 mg HS Increase Olanzapine 20 mg bid 09/03/23: CBCD, CMP, A1c, Lipids, TSH 09/03 for first time, pt pleasant, cooperative with machine sign writer. c/o of some body aches but says ibuprofin helping. Has been asking nursing for discharge and responding angrily, saying she owns the hospital when request (for dc) not granted. 09/04 continue tx 09/05 continue tx 09/06 continue tx 09/12/23 Continue plan of care 09/12 Patient pleasant today; friendly with machine sign writer. No complaints, walking up and down the calle singing to herself. When machine sign writer was talking to another peer that she knows from the community, patient came up and encouraged this peer who was having a hard time. 09/13 remains much more pleasant and approachable, calm. dry skin vs psoriasis patches on face; will order lotion 09/14- Continue current regime and plan of care. 09/16- Residential team meeting 09/18/23. 09/18/23- Continue treatment 09/19/23- Continue treatment 09/20: continue current management and treatment plan. 09/23/23: Continue treatment 09/24/23: Continue treatment Informed Consent: understands Reason for continued inpatient stay Substantial Risk for: rapid decompensation Time Spent With Patient Time: Total time managing care of this patient today ____ minutes.
[2023-09-25] MEDS: OLANZapine ODT 10 MG TAB.RAPDIS 20 MG TRANSLINGU ×3 (00:13→20:21)
[2023-09-25 08:00] VITALS: RESP 18
[2023-09-25] MEDS: Paliperidone Palmitate 234 MG/1.5 ML SYRINGE IM (13:38)
[2023-09-25] MEDS: Ibuprofen 600 MG TABLET PO (15:43)
--- NOTE | 2023-09-25 18:14 | P.PNPSI_ITS ---
Subjective Subjective Date of Service: 09/25/23 Reason For Visit: Schizoaffective disorder Subjective Notes: Conditional Voluntary Healthcare Proxy: Yes Guardianship: No Medical Problems Affecting Mental Status: No Interim History: Visited by her residential team today. Care discussed with pt's HCP, Bridgette Elder. Bridgette has had a long recovery from surgery and may visit next week, she will need to call prior to visit, and may need to schedule precipitously due to her health at this time. Discussed progress, setbacks, pt's refusal of care, increased length of time for recovery and refusal of labs, meds. Reviewed rationale for labs. Bridgette reports she fully supports pt having the best psychiatric and medical care and agrees we should obtain diagnostics which we will order. Pt calmer today, asking to leave, more accepting of what needs to happen before discharge. Excited to see Bridgette, aware that they vacation together yearly with family and pt is excited to plan this years trip. Medication Compliance: Intermittent Side effects from medications: No Attending Groups: No Review of Systems Acute medical concerns: No Medical Review of Systems: unchanged Review of Systems Review of Systems Yes all other systems are reviewed and are negative and Unobtainable due to mental status Mental Status Exam Mental Status Exam Patient Appearance: Appropriate Patient Orientation: Person and Place Level of Consciousness: Awake and Alert Patient Behavior: Talkative and Pacing Behavior Comments: More pleasant Mood Description: Labile Affect Description: Labile Patient Cognition Impaired: Yes Ability to Follow Directions: Fair Speech Pattern: Spontaneous Speech Memory Description: Remote Impaired Hallucinations: None Delusions: Paranoid Ideation, Grandiose and Present Thought Process: Distracted and Goal Oriented Thought Content: positive for Circumstantial Judgement: Fair Diagnostics Vital Signs (24Hr): Vital Signs - 24 hr 09/25/23 08:00 Respiratory Rate 18 BMI result Body Mass Index 37.7 Labs 06/25/23 17:59 06/25/23 17:59 Medications Medications Current Medications Al Hydroxide/Mg Hydroxide (Magnesium Hydrox/Alum Hydrox 30 Ml Oral.Susp) 30 ml PO Q6H PRN PRN Reason: Heartburn/Nausea Albuterol Sulfate (Albuterol Sulfate 90 Mcg 8 Gm Inhaler) 2 puff INHALE Q4H PRN PRN Reason: Wheezing Benztropine Mesylate (Benztropine Mesylate 1 Mg Tablet) 1 mg PO TID PRN PRN Reason: Extrapyramidal Effects Divalproex Sodium (Divalproex Sodium Er 500 Mg Tab.Er.24h) 500 mg PO BEDTIME [facility] Last Admin: 09/25/23 00:13 Dose: Not Given Duloxetine HCl (Duloxetine Hcl 20 Mg Capsule.Dr) 40 mg PO DAILY [facility] Last Admin: 09/25/23 10:00 Dose: Not Given Hydroxyzine HCl (Hydroxyzine Hcl 25 Mg Tablet) 25 mg PO Q6H PRN PRN Reason: Anxiety Ibuprofen (Ibuprofen 600 Mg Tablet) 600 mg PO Q4H PRN PRN Reason: moderate to severe pain Last Admin: 09/25/23 15:43 Dose: 600 mg Lorazepam (Lorazepam 0.5 Mg Tablet) 0.5 mg PO BID [facility] Last Admin: 09/25/23 10:00 Dose: Not Given Magnesium Hydroxide (Milk Of Magnesia 30 Ml Oral.Susp) 30 ml PO DAILY PRN PRN Reason: Constipation Metronidazole (Metronidazole 0.75 % Gel 45 Gm Tube) 1 appl TOPICAL DAILY [facility] Last Admin: 09/25/23 10:00 Dose: Not Given Multi-Ingred Cream/Lotion/Oil/Oint (Mineral Oil/Petrolatum,White 106 Gm Tube) 1 appl TOPICAL BID [facility]; Protocol Last Admin: 09/25/23 09:59 Dose: Not Given Multivitamins/Vitamin C (Multivitamin Tablet) 1 tab PO DAILY [facility] Last Admin: 09/25/23 09:59 Dose: Not Given Olanzapine (Olanzapine Odt 10 Mg Tab.Rapdis) 10 mg TRANSLINGU DAILY PRN PRN Reason: Psychosis Last Admin: 08/04/23 17:34 Dose: 10 mg Olanzapine (Olanzapine 10 Mg Vial) 10 mg IM BID PRN PRN Reason: if refuses PO Zydis Last Admin: 08/13/23 09:17 Dose: 10 mg Olanzapine (Olanzapine Odt 10 Mg Tab.Rapdis) 20 mg TRANSLINGU BID [facility] Last Admin: 09/25/23 09:58 Dose: 20 mg Paliperidone Palmitate (Paliperidone Palmitate 234 Mg/1.5 Ml Syringe) 234 mg IM Q30D [facility] Last Admin: 09/25/23 13:38 Dose: 234 mg Trazodone HCl (Trazodone Hcl 50 Mg Tablet) 50 mg PO BEDTIME MRX1 PRN PRN Reason: Insomnia Vitamin D (Cholecalciferol (Vitamin D3) 10 Mcg Tablet) 10 mcg PO DAILY [facility] Last Admin: 09/25/23 10:00 Dose: Not Given Allergies Allergies Allergy/AdvReac Type Severity Reaction Status Date / Time acetaminophen [From TYLENOL] Allergy Intermediate HIVES Verified 08/28/22 09:48 meperidine [From Demerol] Allergy Unknown Verified 08/28/22 09:48 Assessment & Plan Assessment & Plan (1) Schizoaffective disorder: Qualifiers: Schizoaffective disorder type: bipolar Qualified Code(s): F25.0 - Schizoaffective disorder, bipolar type Status: Acute Code(s): F25.9 - Schizoaffective disorder, unspecified Plan 09/25/23: Labs ordered for 09/25/22 CBCD, CMP, Lipid Panel, A1C, TSH Informed Consent: does not understand Reason for continued inpatient stay Substantial Risk for: rapid decompensation Time Spent With Patient Time: Total time managing care of this patient today ____ minutes.
[2023-09-25 20:00] VITALS: BP 143/65; PULSE 82; TEMP 36.1; O2SAT 98
[2023-09-26 08:19] VITALS: BP 129/60; PULSE 91; RESP 16; TEMP 36.6; O2SAT 96
[2023-09-26] MEDS: OLANZapine ODT 10 MG TAB.RAPDIS 20 MG TRANSLINGU ×2 (09:29→22:15)
[2023-09-26 14:44] LABS: MANUAL DIFF FLAG NO
[2023-09-26 14:46] LABS: Basophils Absolute Auto 0.1 X10*3/uL (0.0-0.2); Basophils Percent Auto 0.9 % (0-2); Eosinophils Absolute Auto 0.4 X10*3/uL (0.0-0.4); Eosinophils Percent Auto 3.2 % (0-4); Hematocrit 40.2 % (37.0-47.0); Hemoglobin 13.7 g/dl (12.0-16.0); Imm Gran Abs Auto 0.05 X10*3/uL (0.00-0.03); Imm Gran Pct Auto 0.4 % (0.0-0.4); Lymphocytes Absolute Auto 2.4 X10*3/uL (1.2-4.9); Lymphocytes Percent Auto 19.1 % (20-40); Mean Corpuscular HGB Conc 34.1 g/dl (31.0-35.0); Mean Corpuscular Hemoglobin 32.5 pg (27.0-33.0); Mean Corpuscular Volume 95.3 fL (80.0-98.0); Mean Platelet Volume 9.5 fL (9.4-12.3); Monocytes Absolute Auto 0.7 X10*3/uL (0.1-1.2); Monocytes Percent Auto 5.7 % (2-11); Neutrophils Percent Auto 70.7 % (45-73); Platelet Count 251 X10*3/uL (160-400); Red Blood Count 4.22 X10*6/uL (4.20-5.50); Red Cell Distribution Width 11.9 % (11.0-16.0); White Blood Count 12.8 X10*3/uL (4.8-10.8)
--- NOTE | 2023-09-26 14:51 | PC.NURSE ---
pt was agreeable to lab draw, no restraint needed
[2023-09-26 14:58] LABS: Estimated Average Glucose 166 mg/dL; Hemoglobin A1c % 7.4 % (<6.0)
--- NOTE | 2023-09-26 15:06 | HO.PSYCHPN ---
Subjective Subjective Date of Service: 09/26/23 Reason For Visit: Schizoaffective disorder Subjective Notes: Conditional Voluntary Healthcare Proxy: Yes Guardianship: No Medical Problems Affecting Mental Status: No Interim History: Pt agreed to lab work with strong staff support. No violence or need for restraint. Security was present. Needing assistance to organize her room due to hoarding of food items. Looking forward to seeing her HCP Bridgette, who will possibly visit next week. Bridgette and her family would like pt to join them on vacation this year as she does each year.. Pt is pleased with this invitation. I want to go and help with cooking . Medication Compliance: Intermittent Side effects from medications: No Attending Groups: No Review of Systems Acute medical concerns: No Medical Review of Systems: unchanged Review of Systems Review of Systems Yes all other systems are reviewed and are negative Mental Status Exam Mental Status Exam Patient Appearance: Appropriate Patient Orientation: Person and Place Level of Consciousness: Awake and Alert Patient Behavior: Talkative and Pacing Behavior Comments: More pleasant Mood Description: Labile Affect Description: Labile Patient Cognition Impaired: Yes Ability to Follow Directions: Fair Speech Pattern: Spontaneous Speech Memory Description: Remote Impaired Hallucinations: None Delusions: Paranoid Ideation, Grandiose and Present Thought Process: Distracted and Goal Oriented Thought Content: positive for Circumstantial Judgement: Fair Diagnostics Vital Signs (24Hr): Vital Signs - 24 hr 09/25/23 20:00 09/26/23 08:19 Temperature 97 F 97.8 F Pulse Rate 82 91 Respiratory Rate 16 Blood Pressure 143/65 H 129/60 Pulse Oximetry 98 96 Oxygen Delivery Method Room Air Room Air BMI result Body Mass Index 37.7 Labs 09/26/23 14:40 09/26/23 14:40 Labs: Laboratory Results - last 48 hr 09/26/23 14:40 WBC 12.8 H RBC 4.22 Hgb 13.7 Hct 40.2 MCV 95.3 MCH 32.5 MCHC 34.1 RDW 11.9 Plt Count 251 MPV 9.5 Immature Gran % (Auto) 0.4 Neut % (Auto) 70.7 Lymph % (Auto) 19.1 L Frontier % (Auto) 5.7 Eos % (Auto) 3.2 Baso % (Auto) 0.9 Lymph # (Auto) 2.4 Frontier # (Auto) 0.7 Eos # (Auto) 0.4 Baso # (Auto) 0.1 Abs Immat Gran (auto) 0.05 H Absolute Neuts (auto) 9.0 H Absolute Nucleated RBC 0.000 Nucleated RBC % (auto) 0.0 Estimat Average Glucose 166 Hemoglobin A1c % 7.4 H Medications Medications Current Medications Al Hydroxide/Mg Hydroxide (Magnesium Hydrox/Alum Hydrox 30 Ml Oral.Susp) 30 ml PO Q6H PRN PRN Reason: Heartburn/Nausea Albuterol Sulfate (Albuterol Sulfate 90 Mcg 8 Gm Inhaler) 2 puff INHALE Q4H PRN PRN Reason: Wheezing Benztropine Mesylate (Benztropine Mesylate 1 Mg Tablet) 1 mg PO TID PRN PRN Reason: Extrapyramidal Effects Divalproex Sodium (Divalproex Sodium Er 500 Mg Tab.Er.24h) 500 mg PO BEDTIME [facility] Last Admin: 09/25/23 20:23 Dose: Not Given Duloxetine HCl (Duloxetine Hcl 20 Mg Capsule.Dr) 40 mg PO DAILY [facility] Last Admin: 09/26/23 14:47 Dose: Not Given Hydroxyzine HCl (Hydroxyzine Hcl 25 Mg Tablet) 25 mg PO Q6H PRN PRN Reason: Anxiety Ibuprofen (Ibuprofen 600 Mg Tablet) 600 mg PO Q4H PRN PRN Reason: moderate to severe pain Last Admin: 09/25/23 15:43 Dose: 600 mg Lorazepam (Lorazepam 0.5 Mg Tablet) 0.5 mg PO BID [facility] Last Admin: 09/26/23 14:47 Dose: Not Given Magnesium Hydroxide (Milk Of Magnesia 30 Ml Oral.Susp) 30 ml PO DAILY PRN PRN Reason: Constipation Metronidazole (Metronidazole 0.75 % Gel 45 Gm Tube) 1 appl TOPICAL DAILY [facility] Last Admin: 09/26/23 14:47 Dose: Not Given Multi-Ingred Cream/Lotion/Oil/Oint (Mineral Oil/Petrolatum,White 106 Gm Tube) 1 appl TOPICAL BID [facility]; Protocol Last Admin: 09/26/23 14:47 Dose: Not Given Multivitamins/Vitamin C (Multivitamin Tablet) 1 tab PO DAILY [facility] Last Admin: 09/26/23 14:47 Dose: Not Given Olanzapine (Olanzapine Odt 10 Mg Tab.Rapdis) 10 mg TRANSLINGU DAILY PRN PRN Reason: Psychosis Last Admin: 08/04/23 17:34 Dose: 10 mg Olanzapine (Olanzapine 10 Mg Vial) 10 mg IM BID PRN PRN Reason: if refuses PO Zydis Last Admin: 08/13/23 09:17 Dose: 10 mg Olanzapine (Olanzapine Odt 10 Mg Tab.Rapdis) 20 mg TRANSLINGU BID [facility] Last Admin: 09/26/23 09:29 Dose: 20 mg Paliperidone Palmitate (Paliperidone Palmitate 234 Mg/1.5 Ml Syringe) 234 mg IM Q30D [facility] Last Admin: 09/25/23 13:38 Dose: 234 mg Trazodone HCl (Trazodone Hcl 50 Mg Tablet) 50 mg PO BEDTIME MRX1 PRN PRN Reason: Insomnia Vitamin D (Cholecalciferol (Vitamin D3) 10 Mcg Tablet) 10 mcg PO DAILY [facility] Last Admin: 09/26/23 14:47 Dose: Not Given Allergies Allergies Allergy/AdvReac Type Severity Reaction Status Date / Time acetaminophen [From TYLENOL] Allergy Intermediate HIVES Verified 08/28/22 09:48 meperidine [From Demerol] Allergy Unknown Verified 08/28/22 09:48 Assessment & Plan Assessment & Plan (1) Schizoaffective disorder: Qualifiers: Schizoaffective disorder type: bipolar Qualified Code(s): F25.0 - Schizoaffective disorder, bipolar type Status: Acute Code(s): F25.9 - Schizoaffective disorder, unspecified Assessment and Plan: Presents with decompensation of schizoaffective disorder, while in group living environment. Not adherence appears to be a factor. Patient not engaging with interview, evaluation or adherent with medications ie declining same. Unable to care for self. Being held on a Section 12 that will on 07/02/23. In the meantime will try and establish report and encourage medication adherence. Plan 06/29: encourage med adherence. 07/01/23: Ensure tid Will file Section VII on 07/02/23. 07/02/23: HCP activated today. Martine Elder is willing to serve in this role. [phone]. 07/03/23: Encourage treatment compliance 07/04/23 Encourage treatment compliance, begin process of validating HCP with the courts in order to provide pt with psychopharmacology options. 07/05/23 Encourage treatment. 07/07 remains disorganized in speech and behavior; refusing meds, paranoid -continue process of affirming HCP 07/08- Continue current plan. 07/09 continue current treatment plan 07/11/23 continue current treatment plan 07/12: Continue current regimen and plans 07/13: Continue current regimen and plans 07/14: Continue current plans and regimen 07/15/23: Continue current tx. Initiate regime 07/16. 07/17/23: Continue to encourage treatment. 07/18/23: Add prn Zyprexa IM if she refuses HS dosing 07/19: Continue current management and treatment plan. 07/20: Continue current management and treatment plan. 07/22: Continue tx. 07/23: Continue tx 07/24: Encourage milieu participation 07/26/23 continues too labile to interact with others- 07/27/23 - CTP encourage treatment 07/27/22 Continue tx plan; encourge meds as approved by HCP and court 07/29/23 schedule olanzepine discontinued after on hold for several days; awaiting invega sustenna to alleviate some of the psychosis in hopes patient more engageable and able to participate in her treatment; PO meds still ordered and should be offered with statement that they are court ordered and approved by HCP. 07/30/23 pt showing slight improvement- continue treatment plan 07/31/23 continue tx plan 08/01/23 continue tx plan 08/01 -Intermittently angry and irritable. Said hello to conventional mortgage underwriter but then when conventional mortgage underwriter asked how she was doing said none of your business. -Made swiping motion as if to scratch towards several staff, saying it was a curse -Yelled at peer today due to disorganized thought that person should not be in group room; yell that another peer who was going into the community refrigerator since patient thinks that the refrigerator is her property; able to be redirected 08/02 screamed at conventional mortgage underwriter and refused to enage. 08/03 staff agree Patient seems to be increasingly disorganized, walking briskly down the calle and yelling at peers, staff, making angry accusatory remarks and frightening and provoking some patients, causing some patients to become angry response. Will not engage with conventional mortgage underwriter. -patient on Invega Sustenna however behaviors are problematic, upsetting and sometimes scary to both peers and staff. Patient psychotic illness has gone untreated for quite some time and it seems likely she will need p.o. to overlap long-acting medication. Fire Management Specialist reached out to patient's healthcare proxy Brit Elder and left message to discuss treatment 08/06/23- Continue tx. Pt today able to reach out and initiate discussion. Benztropine 1 mg tid prn EPS 08/07/23- Continue tx. 08/12/23: Diagnostics 08/13/23. 08/16: continue current management and treatment plan. 08/23/23 improving adls and med compliance- but picks and chooses who she will interact with 08/26/23- Continue tx- attempt diagnostics again this week. 08/29/23- Continue to attempt to get pt involved in discharge planning and daily routine expectations. 08/31/23- Continue to attempt education regarding intrusive behaviors, reality testing 09/01/23- Depakote ER 500 mg HS Increase Olanzapine 20 mg bid 09/03/23: CBCD, CMP, A1c, Lipids, TSH 09/03 for first time, pt pleasant, cooperative with conventional mortgage underwriter. c/o of some body aches but says ibuprofin helping. Has been asking nursing for discharge and responding angrily, saying she owns the hospital when request (for dc) not granted. 09/04 continue tx 09/05 continue tx 09/06 continue tx 09/12/23 Continue plan of care 09/12 Patient pleasant today; friendly with conventional mortgage underwriter. No complaints, walking up and down the calle singing to herself. When conventional mortgage underwriter was talking to another peer that she knows from the community, patient came up and encouraged this peer who was having a hard time. 09/13 remains much more pleasant and approachable, calm. dry skin vs psoriasis patches on face; will order lotion 09/14- Continue current regime and plan of care. 09/16- Residential team meeting 09/18/23. 09/18/23- Continue treatment 09/19/23- Continue treatment 09/20: continue current management and treatment plan. 09/26/23: Continue treatment Reason for continued inpatient stay Substantial Risk for: rapid decompensation Time Spent With Patient Time: Total time managing care of this patient today ____ minutes.
[2023-09-26 15:07] LABS: Alanine Aminotransferase 41 U/L (0-31); Albumin Level 3.8 g/dL (3.5-5.0); Alkaline Phosphatase 89 U/L (39-117); Anion Gap 15 (12-20); Aspartate Amino Transferase 19 U/L (5-31); Bilirubin Total 0.2 mg/dL (0.0-1.0); Blood Urea Nitrogen 17 mg/dL (9-16); Calcium 9.3 mg/dL (8.4-10.2); Carbon Dioxide 26 mmol/L (22-29); Chloride 103 mmol/L (96-108); Cholesterol 180 mg/dL (<200); Creatinine Clr Calc Pharmacy 76.8; Estimated Glomerular Filt Rate > 60; Glucose Random 324 mg/dL (60-115); HDL Cholesterol 46 mg/dL (>40); LDL Cholesterol Calculated 77 mg/dL (<100); Potassium 4.5 mmol/L (3.3-5.1); Sodium 139 mmol/L (135-145); Total Protein 6.3 g/dL (6.5-8.0); Triglycerides 288 mg/dL (<150)
[2023-09-26 15:21] LABS: Thyroid Stimulating Hormone 0.86 uIU/mL (0.32-4.0)
[2023-09-26] MEDS: Ibuprofen 600 MG TABLET PO (22:15)
[2023-09-27] MEDS: Ibuprofen 600 MG TABLET PO ×2 (06:05→19:35)
[2023-09-27 08:00] VITALS: RESP 18
[2023-09-27] MEDS: OLANZapine ODT 10 MG TAB.RAPDIS 20 MG TRANSLINGU ×2 (08:52→21:14)
--- NOTE | 2023-09-27 15:31 | P.PNPSI_ITS ---
Subjective Subjective Date of Service: 09/27/23 Reason For Visit: Schizoaffective disorder Interim History: met with patient. Discussed with Nursing. Overall appears at baseline. No management issues. Patient denied being any concerns and will speak with tech writer tomorrow rather than today. Medication Compliance: Yes Side effects from medications: No Attending Groups: No Review of Systems Acute medical concerns: No Mental Status Exam Mental Status Exam Narrative: In bed. Fair self-care. Minimal engagement. Reported wanting to speak tomorrow instead. Diagnostics Vital Signs (24Hr): Vital Signs - 24 hr 09/27/23 08:00 Respiratory Rate 18 BMI result Body Mass Index 37.7 Labs 09/26/23 14:40 09/26/23 14:40 Labs: Laboratory Results - last 48 hr 09/26/23 14:40 WBC 12.8 H RBC 4.22 Hgb 13.7 Hct 40.2 MCV 95.3 MCH 32.5 MCHC 34.1 RDW 11.9 Plt Count 251 MPV 9.5 Immature Gran % (Auto) 0.4 Neut % (Auto) 70.7 Lymph % (Auto) 19.1 L Harper % (Auto) 5.7 Eos % (Auto) 3.2 Baso % (Auto) 0.9 Lymph # (Auto) 2.4 Harper # (Auto) 0.7 Eos # (Auto) 0.4 Baso # (Auto) 0.1 Abs Immat Gran (auto) 0.05 H Absolute Neuts (auto) 9.0 H Absolute Nucleated RBC 0.000 Nucleated RBC % (auto) 0.0 Sodium 139 Potassium 4.5 Chloride 103 Carbon Dioxide 26 Anion Gap 15 BUN 17 H Creatinine 0.89 Estim Creat Clear Calc 76.8 Estimated GFR > 60 Random Glucose 324 H Estimat Average Glucose 166 Hemoglobin A1c % 7.4 H Calcium 9.3 Total Bilirubin 0.2 AST 19 ALT 41 H Alkaline Phosphatase 89 Total Protein 6.3 L Albumin 3.8 Triglycerides 288 H Cholesterol 180 LDL Cholesterol, Calc 77 HDL Cholesterol 46 TSH 0.86 Medications Medications Current Medications Al Hydroxide/Mg Hydroxide (Magnesium Hydrox/Alum Hydrox 30 Ml Oral.Susp) 30 ml PO Q6H PRN PRN Reason: Heartburn/Nausea Albuterol Sulfate (Albuterol Sulfate 90 Mcg 8 Gm Inhaler) 2 puff INHALE Q4H PRN PRN Reason: Wheezing Benztropine Mesylate (Benztropine Mesylate 1 Mg Tablet) 1 mg PO TID PRN PRN Reason: Extrapyramidal Effects Divalproex Sodium (Divalproex Sodium Er 500 Mg Tab.Er.24h) 500 mg PO BEDTIME [facility] Last Admin: 09/26/23 23:53 Dose: Not Given Duloxetine HCl (Duloxetine Hcl 20 Mg Capsule.Dr) 40 mg PO DAILY [facility] Last Admin: 09/27/23 08:54 Dose: Not Given Hydroxyzine HCl (Hydroxyzine Hcl 25 Mg Tablet) 25 mg PO Q6H PRN PRN Reason: Anxiety Ibuprofen (Ibuprofen 600 Mg Tablet) 600 mg PO Q4H PRN PRN Reason: moderate to severe pain Last Admin: 09/27/23 06:05 Dose: 600 mg Lorazepam (Lorazepam 0.5 Mg Tablet) 0.5 mg PO BID [facility] Last Admin: 09/27/23 08:54 Dose: Not Given Magnesium Hydroxide (Milk Of Magnesia 30 Ml Oral.Susp) 30 ml PO DAILY PRN PRN Reason: Constipation Metronidazole (Metronidazole 0.75 % Gel 45 Gm Tube) 1 appl TOPICAL DAILY [facility] Last Admin: 09/27/23 08:54 Dose: Not Given Multi-Ingred Cream/Lotion/Oil/Oint (Mineral Oil/Petrolatum,White 106 Gm Tube) 1 appl TOPICAL BID [facility]; Protocol Last Admin: 09/27/23 08:54 Dose: Not Given Multivitamins/Vitamin C (Multivitamin Tablet) 1 tab PO DAILY [facility] Last Admin: 09/27/23 08:54 Dose: Not Given Olanzapine (Olanzapine Odt 10 Mg Tab.Rapdis) 10 mg TRANSLINGU DAILY PRN PRN Reason: Psychosis Last Admin: 08/04/23 17:34 Dose: 10 mg Olanzapine (Olanzapine 10 Mg Vial) 10 mg IM BID PRN PRN Reason: if refuses PO Zydis Last Admin: 08/13/23 09:17 Dose: 10 mg Olanzapine (Olanzapine Odt 10 Mg Tab.Rapdis) 20 mg TRANSLINGU BID [facility] Last Admin: 09/27/23 08:52 Dose: 20 mg Paliperidone Palmitate (Paliperidone Palmitate 234 Mg/1.5 Ml Syringe) 234 mg IM Q30D [facility] Last Admin: 09/25/23 13:38 Dose: 234 mg Trazodone HCl (Trazodone Hcl 50 Mg Tablet) 50 mg PO BEDTIME MRX1 PRN PRN Reason: Insomnia Vitamin D (Cholecalciferol (Vitamin D3) 10 Mcg Tablet) 10 mcg PO DAILY [facility] Last Admin: 09/27/23 08:55 Dose: Not Given Allergies Allergies Allergy/AdvReac Type Severity Reaction Status Date / Time acetaminophen [From TYLENOL] Allergy Intermediate HIVES Verified 08/28/22 09:48 meperidine [From Demerol] Allergy Unknown Verified 08/28/22 09:48 Assessment & Plan Assessment & Plan (1) Schizoaffective disorder: Qualifiers: Schizoaffective disorder type: bipolar Qualified Code(s): F25.0 - Schizoaffective disorder, bipolar type Status: Acute Code(s): F25.9 - Schizoaffective disorder, unspecified Assessment and Plan: Presents with decompensation of schizoaffective disorder, while in group living environment. Not adherence appears to be a factor. Patient not engaging with interview, evaluation or adherent with medications ie declining same. Unable to care for self. Being held on a Section 12 that will on 07/02/23. In the meantime will try and establish report and encourage medication adherence. Plan 06/29: encourage med adherence. 07/01/23: Ensure tid Will file Section VII on 07/02/23. 07/02/23: HCP activated today. Martine Elder is willing to serve in this role. [phone]. 07/03/23: Encourage treatment compliance 07/04/23 Encourage treatment compliance, begin process of validating HCP with the courts in order to provide pt with psychopharmacology options. 07/05/23 Encourage treatment. 07/07 remains disorganized in speech and behavior; refusing meds, paranoid -continue process of affirming HCP 07/08- Continue current plan. 07/09 continue current treatment plan 07/11/23 continue current treatment plan 07/12: Continue current regimen and plans 07/13: Continue current regimen and plans 07/14: Continue current plans and regimen 07/15/23: Continue current tx. Initiate regime 07/16. 07/17/23: Continue to encourage treatment. 07/18/23: Add prn Zyprexa IM if she refuses HS dosing 07/19: Continue current management and treatment plan. 07/20: Continue current management and treatment plan. 07/22: Continue tx. 07/23: Continue tx 07/24: Encourage milieu participation 07/26/23 continues too labile to interact with others- 07/27/23 - CTP encourage treatment 07/27/22 Continue tx plan; encourge meds as approved by HCP and court 07/29/23 schedule olanzepine discontinued after on hold for several days; awaiting invega sustenna to alleviate some of the psychosis in hopes patient more engageable and able to participate in her treatment; PO meds still ordered and should be offered with statement that they are court ordered and approved by HCP. 07/30/23 pt showing slight improvement- continue treatment plan 07/31/23 continue tx plan 08/01/23 continue tx plan 08/01 -Intermittently angry and irritable. Said hello to tech writer but then when tech writer asked how she was doing said none of your business. -Made swiping motion as if to scratch towards several staff, saying it was a curse -Yelled at peer today due to disorganized thought that person should not be in group room; yell that another peer who was going into the community refrigerator since patient thinks that the refrigerator is her property; able to be redirected 08/02 screamed at tech writer and refused to enage. 08/03 staff agree Patient seems to be increasingly disorganized, walking briskly down the calle and yelling at peers, staff, making angry accusatory remarks and frightening and provoking some patients, causing some patients to become angry response. Will not engage with tech writer. -patient on Invega Sustenna however behaviors are problematic, upsetting and sometimes scary to both peers and staff. Patient psychotic illness has gone untreated for quite some time and it seems likely she will need p.o. to overlap long-acting medication. Chemical Treatment Operator reached out to patient's healthcare proxy Brit Elder and left message to discuss treatment 08/06/23- Continue tx. Pt today able to reach out and initiate discussion. Benztropine 1 mg tid prn EPS 08/07/23- Continue tx. 08/12/23: Diagnostics 08/13/23. 08/16: continue current management and treatment plan. 08/23/23 improving adls and med compliance- but picks and chooses who she will interact with 08/26/23- Continue tx- attempt diagnostics again this week. 08/29/23- Continue to attempt to get pt involved in discharge planning and daily routine expectations. 08/31/23- Continue to attempt education regarding intrusive behaviors, reality testing 09/01/23- Depakote ER 500 mg HS Increase Olanzapine 20 mg bid 09/03/23: CBCD, CMP, A1c, Lipids, TSH 09/03 for first time, pt pleasant, cooperative with tech writer. c/o of some body aches but says ibuprofin helping. Has been asking nursing for discharge and responding angrily, saying she owns the hospital when request (for dc) not granted. 09/04 continue tx 09/05 continue tx 09/06 continue tx 09/12/23 Continue plan of care 09/12 Patient pleasant today; friendly with tech writer. No complaints, walking up and down the calle singing to herself. When tech writer was talking to another peer that she knows from the community, patient came up and encouraged this peer who was having a hard time. 09/13 remains much more pleasant and approachable, calm. dry skin vs psoriasis patches on face; will order lotion 09/14- Continue current regime and plan of care. 09/16- Residential team meeting 09/18/23. 09/18/23- Continue treatment 09/19/23- Continue treatment 09/20: continue current management and treatment plan. 09/26/23: Continue treatment 09/27/2023: No changes Reason for continued inpatient stay Substantial Risk for: rapid decompensation Time Spent With Patient Time: Total time managing care of this patient today ____ minutes.
[2023-09-28 08:00] VITALS: RESP 18
[2023-09-28] MEDS: OLANZapine ODT 10 MG TAB.RAPDIS 20 MG TRANSLINGU ×2 (10:29→20:43)
[2023-09-28] MEDS: Ibuprofen 600 MG TABLET PO ×2 (10:29→20:42)
--- NOTE | 2023-09-28 10:42 | P.PNPSI_ITS ---
Subjective Subjective Date of Service: 09/28/23 Reason For Visit: Schizoaffective disorder Interim History: met with patient. Discussed with Nursing. Overall appears at baseline. No management issues. reports wanting olanzapine medication lowered and hopeful this can be discussed with primary team tomorrow. Reports feeling very tired and no energy to do anything. Review of Systems Review of Systems nothing acute Mental Status Exam Mental Status Exam Narrative: In bed. Fair self-care. Minimal engagement. Denies depression. Affect is restricted. No SI or HI. No overt psychosis noted. Insight and judgment fair Diagnostics Vital Signs (24Hr): Vital Signs - 24 hr 09/28/23 08:00 Respiratory Rate 18 BMI result Body Mass Index 37.7 Labs 09/26/23 14:40 09/26/23 14:40 Labs: Laboratory Results - last 48 hr 09/26/23 14:40 WBC 12.8 H RBC 4.22 Hgb 13.7 Hct 40.2 MCV 95.3 MCH 32.5 MCHC 34.1 RDW 11.9 Plt Count 251 MPV 9.5 Immature Gran % (Auto) 0.4 Neut % (Auto) 70.7 Lymph % (Auto) 19.1 L Ford % (Auto) 5.7 Eos % (Auto) 3.2 Baso % (Auto) 0.9 Lymph # (Auto) 2.4 Ford # (Auto) 0.7 Eos # (Auto) 0.4 Baso # (Auto) 0.1 Abs Immat Gran (auto) 0.05 H Absolute Neuts (auto) 9.0 H Absolute Nucleated RBC 0.000 Nucleated RBC % (auto) 0.0 Sodium 139 Potassium 4.5 Chloride 103 Carbon Dioxide 26 Anion Gap 15 BUN 17 H Creatinine 0.89 Estim Creat Clear Calc 76.8 Estimated GFR > 60 Random Glucose 324 H Estimat Average Glucose 166 Hemoglobin A1c % 7.4 H Calcium 9.3 Total Bilirubin 0.2 AST 19 ALT 41 H Alkaline Phosphatase 89 Total Protein 6.3 L Albumin 3.8 Triglycerides 288 H Cholesterol 180 LDL Cholesterol, Calc 77 HDL Cholesterol 46 TSH 0.86 Medications Medications Current Medications Al Hydroxide/Mg Hydroxide (Magnesium Hydrox/Alum Hydrox 30 Ml Oral.Susp) 30 ml PO Q6H PRN PRN Reason: Heartburn/Nausea Albuterol Sulfate (Albuterol Sulfate 90 Mcg 8 Gm Inhaler) 2 puff INHALE Q4H PRN PRN Reason: Wheezing Benztropine Mesylate (Benztropine Mesylate 1 Mg Tablet) 1 mg PO TID PRN PRN Reason: Extrapyramidal Effects Divalproex Sodium (Divalproex Sodium Er 500 Mg Tab.Er.24h) 500 mg PO BEDTIME [facility] Last Admin: 09/27/23 23:00 Dose: Not Given Duloxetine HCl (Duloxetine Hcl 20 Mg Capsule.Dr) 40 mg PO DAILY [facility] Last Admin: 09/28/23 09:25 Dose: Not Given Hydroxyzine HCl (Hydroxyzine Hcl 25 Mg Tablet) 25 mg PO Q6H PRN PRN Reason: Anxiety Ibuprofen (Ibuprofen 600 Mg Tablet) 600 mg PO Q4H PRN PRN Reason: moderate to severe pain Last Admin: 09/28/23 10:29 Dose: 600 mg Lorazepam (Lorazepam 0.5 Mg Tablet) 0.5 mg PO BID [facility] Last Admin: 09/28/23 09:25 Dose: Not Given Magnesium Hydroxide (Milk Of Magnesia 30 Ml Oral.Susp) 30 ml PO DAILY PRN PRN Reason: Constipation Metronidazole (Metronidazole 0.75 % Gel 45 Gm Tube) 1 appl TOPICAL DAILY [facility] Last Admin: 09/28/23 09:25 Dose: Not Given Multi-Ingred Cream/Lotion/Oil/Oint (Mineral Oil/Petrolatum,White 106 Gm Tube) 1 appl TOPICAL BID [facility]; Protocol Last Admin: 09/28/23 09:25 Dose: Not Given Multivitamins/Vitamin C (Multivitamin Tablet) 1 tab PO DAILY [facility] Last Admin: 09/28/23 09:26 Dose: Not Given Olanzapine (Olanzapine Odt 10 Mg Tab.Rapdis) 10 mg TRANSLINGU DAILY PRN PRN Reason: Psychosis Last Admin: 08/04/23 17:34 Dose: 10 mg Olanzapine (Olanzapine 10 Mg Vial) 10 mg IM BID PRN PRN Reason: if refuses PO Zydis Last Admin: 08/13/23 09:17 Dose: 10 mg Olanzapine (Olanzapine Odt 10 Mg Tab.Rapdis) 20 mg TRANSLINGU BID [facility] Last Admin: 09/28/23 10:29 Dose: 20 mg Paliperidone Palmitate (Paliperidone Palmitate 234 Mg/1.5 Ml Syringe) 234 mg IM Q30D [facility] Last Admin: 09/25/23 13:38 Dose: 234 mg Trazodone HCl (Trazodone Hcl 50 Mg Tablet) 50 mg PO BEDTIME MRX1 PRN PRN Reason: Insomnia Vitamin D (Cholecalciferol (Vitamin D3) 10 Mcg Tablet) 10 mcg PO DAILY [facility] Last Admin: 09/28/23 09:25 Dose: Not Given Allergies Allergies Allergy/AdvReac Type Severity Reaction Status Date / Time acetaminophen [From TYLENOL] Allergy Intermediate HIVES Verified 08/28/22 09:48 meperidine [From Demerol] Allergy Unknown Verified 08/28/22 09:48 Assessment & Plan Assessment & Plan (1) Schizoaffective disorder: Qualifiers: Schizoaffective disorder type: bipolar Qualified Code(s): F25.0 - Schizoaffective disorder, bipolar type Status: Acute Code(s): F25.9 - Schizoaffective disorder, unspecified Assessment and Plan: Presents with decompensation of schizoaffective disorder, while in group living environment. Not adherence appears to be a factor. Patient not engaging with interview, evaluation or adherent with medications ie declining same. Unable to care for self. Being held on a Section 12 that will on 07/02/23. In the meantime will try and establish report and encourage medication adherence. Plan 06/29: encourage med adherence. 07/01/23: Ensure tid Will file Section VII on 07/02/23. 07/02/23: HCP activated today. Martine Elder is willing to serve in this role. [phone]. 07/03/23: Encourage treatment compliance 07/04/23 Encourage treatment compliance, begin process of validating HCP with the courts in order to provide pt with psychopharmacology options. 07/05/23 Encourage treatment. 07/07 remains disorganized in speech and behavior; refusing meds, paranoid -continue process of affirming HCP 07/08- Continue current plan. 07/09 continue current treatment plan 07/11/23 continue current treatment plan 07/12: Continue current regimen and plans 07/13: Continue current regimen and plans 07/14: Continue current plans and regimen 07/15/23: Continue current tx. Initiate regime 07/16. 07/17/23: Continue to encourage treatment. 07/18/23: Add prn Zyprexa IM if she refuses HS dosing 07/19: Continue current management and treatment plan. 07/20: Continue current management and treatment plan. 07/22: Continue tx. 07/23: Continue tx 07/24: Encourage milieu participation 07/26/23 continues too labile to interact with others- 07/27/23 - CTP encourage treatment 07/27/22 Continue tx plan; encourge meds as approved by HCP and court 07/29/23 schedule olanzepine discontinued after on hold for several days; awaiting invega sustenna to alleviate some of the psychosis in hopes patient more engageable and able to participate in her treatment; PO meds still ordered and should be offered with statement that they are court ordered and approved by HCP. 07/30/23 pt showing slight improvement- continue treatment plan 07/31/23 continue tx plan 08/01/23 continue tx plan 08/01 -Intermittently angry and irritable. Said hello to documentation writer but then when documentation writer asked how she was doing said none of your business. -Made swiping motion as if to scratch towards several staff, saying it was a curse -Yelled at peer today due to disorganized thought that person should not be in group room; yell that another peer who was going into the community refrigerator since patient thinks that the refrigerator is her property; able to be redirected 08/02 screamed at documentation writer and refused to enage. 08/03 staff agree Patient seems to be increasingly disorganized, walking briskly down the calle and yelling at peers, staff, making angry accusatory remarks and frightening and provoking some patients, causing some patients to become angry response. Will not engage with documentation writer. -patient on Invega Sustenna however behaviors are problematic, upsetting and sometimes scary to both peers and staff. Patient psychotic illness has gone untreated for quite some time and it seems likely she will need p.o. to overlap long-acting medication. Sock Examiner reached out to patient's healthcare proxy Brit Elder and left message to discuss treatment 08/06/23- Continue tx. Pt today able to reach out and initiate discussion. Benztropine 1 mg tid prn EPS 08/07/23- Continue tx. 08/12/23: Diagnostics 08/13/23. 08/16: continue current management and treatment plan. 08/23/23 improving adls and med compliance- but picks and chooses who she will interact with 08/26/23- Continue tx- attempt diagnostics again this week. 08/29/23- Continue to attempt to get pt involved in discharge planning and daily routine expectations. 08/31/23- Continue to attempt education regarding intrusive behaviors, reality testing 09/01/23- Depakote ER 500 mg HS Increase Olanzapine 20 mg bid 09/03/23: CBCD, CMP, A1c, Lipids, TSH 09/03 for first time, pt pleasant, cooperative with documentation writer. c/o of some body aches but says ibuprofin helping. Has been asking nursing for discharge and responding angrily, saying she owns the hospital when request (for dc) not granted. 09/04 continue tx 09/05 continue tx 09/06 continue tx 09/12/23 Continue plan of care 09/12 Patient pleasant today; friendly with documentation writer. No complaints, walking up and down the calle singing to herself. When documentation writer was talking to another peer that she knows from the community, patient came up and encouraged this peer who was having a hard time. 09/13 remains much more pleasant and approachable, calm. dry skin vs psoriasis patches on face; will order lotion 09/14- Continue current regime and plan of care. 09/16- Residential team meeting 09/18/23. 09/18/23- Continue treatment 09/19/23- Continue treatment 09/20: continue current management and treatment plan. 09/26/23: Continue treatment 09/27/2023: No changes 09/28/23: no changes- pt would like team to consider lowering olanzapine dose Reason for continued inpatient stay Substantial Risk for: inability to function and rapid decompensation Time Spent With Patient Time: Total time managing care of this patient today ____ minutes.
[2023-09-29 08:00] VITALS: BP 146/104; PULSE 90; RESP 18; TEMP 36.5; O2SAT 98
[2023-09-29] MEDS: OLANZapine ODT 10 MG TAB.RAPDIS TRANSLINGU ×2 (08:22→20:57)
[2023-09-29] MEDS: Ibuprofen 600 MG TABLET PO (08:22)
--- NOTE | 2023-09-29 10:16 | HO.PSYCHPN ---
Subjective Subjective Date of Service: 09/29/23 Reason For Visit: Schizoaffective disorder Subjective Notes: Conditional Voluntary Healthcare Proxy: Yes Guardianship: No Medical Problems Affecting Mental Status: No Interim History: Pt accepted her injection and lab work last week. Recompensating slowly. Looking forward to seeing her HCP hopefully this week and asking about discharge. Medication Compliance: Intermittent Side effects from medications: No Attending Groups: No Review of Systems Acute medical concerns: No Medical Review of Systems: unchanged Review of Systems Review of Systems Yes all other systems are reviewed and are negative Mental Status Exam Mental Status Exam Patient Appearance: Appropriate Patient Orientation: Person and Place Level of Consciousness: Awake and Alert Patient Behavior: Talkative and Pacing Behavior Comments: More pleasant Mood Description: Labile Affect Description: Labile Patient Cognition Impaired: Yes Ability to Follow Directions: Fair Speech Pattern: Spontaneous Speech Memory Description: Remote Impaired Hallucinations: None Delusions: Paranoid Ideation, Grandiose and Present Thought Process: Distracted and Goal Oriented Thought Content: positive for Circumstantial Judgement: Fair Diagnostics Vital Signs (24Hr): Vital Signs - 24 hr 09/29/23 08:00 Temperature 97.7 F Pulse Rate 90 Respiratory Rate 18 Blood Pressure 146/104 H Pulse Oximetry 98 Oxygen Delivery Method Room Air BMI result Body Mass Index 37.7 Labs 09/26/23 14:40 09/26/23 14:40 Medications Medications Current Medications Al Hydroxide/Mg Hydroxide (Magnesium Hydrox/Alum Hydrox 30 Ml Oral.Susp) 30 ml PO Q6H PRN PRN Reason: Heartburn/Nausea Albuterol Sulfate (Albuterol Sulfate 90 Mcg 8 Gm Inhaler) 2 puff INHALE Q4H PRN PRN Reason: Wheezing Benztropine Mesylate (Benztropine Mesylate 1 Mg Tablet) 1 mg PO TID PRN PRN Reason: Extrapyramidal Effects Divalproex Sodium (Divalproex Sodium Er 500 Mg Tab.Er.24h) 500 mg PO BEDTIME [facility] Last Admin: 09/28/23 20:47 Dose: Not Given Duloxetine HCl (Duloxetine Hcl 20 Mg Capsule.Dr) 40 mg PO DAILY [facility] Last Admin: 09/29/23 08:35 Dose: Not Given Hydroxyzine HCl (Hydroxyzine Hcl 25 Mg Tablet) 25 mg PO Q6H PRN PRN Reason: Anxiety Ibuprofen (Ibuprofen 600 Mg Tablet) 600 mg PO Q4H PRN PRN Reason: moderate to severe pain Last Admin: 09/29/23 08:22 Dose: 600 mg Lorazepam (Lorazepam 0.5 Mg Tablet) 0.5 mg PO BID [facility] Last Admin: 09/29/23 08:35 Dose: Not Given Magnesium Hydroxide (Milk Of Magnesia 30 Ml Oral.Susp) 30 ml PO DAILY PRN PRN Reason: Constipation Metronidazole (Metronidazole 0.75 % Gel 45 Gm Tube) 1 appl TOPICAL DAILY [facility] Last Admin: 09/29/23 08:35 Dose: Not Given Multi-Ingred Cream/Lotion/Oil/Oint (Mineral Oil/Petrolatum,White 106 Gm Tube) 1 appl TOPICAL BID [facility]; Protocol Last Admin: 09/29/23 08:35 Dose: Not Given Multivitamins/Vitamin C (Multivitamin Tablet) 1 tab PO DAILY [facility] Last Admin: 09/29/23 08:35 Dose: Not Given Olanzapine (Olanzapine Odt 10 Mg Tab.Rapdis) 10 mg TRANSLINGU DAILY PRN PRN Reason: Psychosis Last Admin: 08/04/23 17:34 Dose: 10 mg Olanzapine (Olanzapine 10 Mg Vial) 10 mg IM BID PRN PRN Reason: if refuses PO Zydis Last Admin: 08/13/23 09:17 Dose: 10 mg Olanzapine (Olanzapine Odt 10 Mg Tab.Rapdis) 10 mg TRANSLINGU BID [facility] Last Admin: 09/29/23 08:22 Dose: 10 mg Paliperidone Palmitate (Paliperidone Palmitate 234 Mg/1.5 Ml Syringe) 234 mg IM Q30D [facility] Last Admin: 09/25/23 13:38 Dose: 234 mg Trazodone HCl (Trazodone Hcl 50 Mg Tablet) 50 mg PO BEDTIME MRX1 PRN PRN Reason: Insomnia Vitamin D (Cholecalciferol (Vitamin D3) 10 Mcg Tablet) 10 mcg PO DAILY [facility] Last Admin: 09/29/23 08:35 Dose: Not Given Allergies Allergies Allergy/AdvReac Type Severity Reaction Status Date / Time acetaminophen [From TYLENOL] Allergy Intermediate HIVES Verified 08/28/22 09:48 meperidine [From Demerol] Allergy Unknown Verified 08/28/22 09:48 Assessment & Plan Assessment & Plan (1) Schizoaffective disorder: Qualifiers: Schizoaffective disorder type: bipolar Qualified Code(s): F25.0 - Schizoaffective disorder, bipolar type Status: Acute Code(s): F25.9 - Schizoaffective disorder, unspecified Assessment and Plan: Presents with decompensation of schizoaffective disorder, while in group living environment. Not adherence appears to be a factor. Patient not engaging with interview, evaluation or adherent with medications ie declining same. Unable to care for self. Being held on a Section 12 that will on 07/02/23. In the meantime will try and establish report and encourage medication adherence. Plan 06/29: encourage med adherence. 07/01/23: Ensure tid Will file Section VII on 07/02/23. 07/02/23: HCP activated today. Martine Elder is willing to serve in this role. [phone]. 07/03/23: Encourage treatment compliance 07/04/23 Encourage treatment compliance, begin process of validating HCP with the courts in order to provide pt with psychopharmacology options. 07/05/23 Encourage treatment. 07/07 remains disorganized in speech and behavior; refusing meds, paranoid -continue process of affirming HCP 07/08- Continue current plan. 07/09 continue current treatment plan 07/11/23 continue current treatment plan 07/12: Continue current regimen and plans 07/13: Continue current regimen and plans 07/14: Continue current plans and regimen 07/15/23: Continue current tx. Initiate regime 07/16. 07/17/23: Continue to encourage treatment. 07/18/23: Add prn Zyprexa IM if she refuses HS dosing 07/19: Continue current management and treatment plan. 07/20: Continue current management and treatment plan. 07/22: Continue tx. 07/23: Continue tx 07/24: Encourage milieu participation 07/26/23 continues too labile to interact with others- 07/27/23 - CTP encourage treatment 07/27/22 Continue tx plan; encourge meds as approved by HCP and court 07/29/23 schedule olanzepine discontinued after on hold for several days; awaiting invega sustenna to alleviate some of the psychosis in hopes patient more engageable and able to participate in her treatment; PO meds still ordered and should be offered with statement that they are court ordered and approved by HCP. 07/30/23 pt showing slight improvement- continue treatment plan 07/31/23 continue tx plan 08/01/23 continue tx plan 08/01 -Intermittently angry and irritable. Said hello to technical writer but then when technical writer asked how she was doing said none of your business. -Made swiping motion as if to scratch towards several staff, saying it was a curse -Yelled at peer today due to disorganized thought that person should not be in group room; yell that another peer who was going into the community refrigerator since patient thinks that the refrigerator is her property; able to be redirected 08/02 screamed at technical writer and refused to enage. 08/03 staff agree Patient seems to be increasingly disorganized, walking briskly down the calle and yelling at peers, staff, making angry accusatory remarks and frightening and provoking some patients, causing some patients to become angry response. Will not engage with technical writer. -patient on Invega Sustenna however behaviors are problematic, upsetting and sometimes scary to both peers and staff. Patient psychotic illness has gone untreated for quite some time and it seems likely she will need p.o. to overlap long-acting medication. Family Health Nurse Practitioner reached out to patient's healthcare proxy Brit lEder and left message to discuss treatment 08/06/23- Continue tx. Pt today able to reach out and initiate discussion. Benztropine 1 mg tid prn EPS 08/07/23- Continue tx. 08/12/23: Diagnostics 08/13/23. 08/16: continue current management and treatment plan. 08/23/23 improving adls and med compliance- but picks and chooses who she will interact with 08/26/23- Continue tx- attempt diagnostics again this week. 08/29/23- Continue to attempt to get pt involved in discharge planning and daily routine expectations. 08/31/23- Continue to attempt education regarding intrusive behaviors, reality testing 09/01/23- Depakote ER 500 mg HS Increase Olanzapine 20 mg bid 09/03/23: CBCD, CMP, A1c, Lipids, TSH 09/03 for first time, pt pleasant, cooperative with technical writer. c/o of some body aches but says ibuprofin helping. Has been asking nursing for discharge and responding angrily, saying she owns the hospital when request (for dc) not granted. 09/04 continue tx 09/05 continue tx 09/06 continue tx 09/12/23 Continue plan of care 09/12 Patient pleasant today; friendly with technical writer. No complaints, walking up and down the calle singing to herself. When technical writer was talking to another peer that she knows from the community, patient came up and encouraged this peer who was having a hard time. 09/13 remains much more pleasant and approachable, calm. dry skin vs psoriasis patches on face; will order lotion 09/14- Continue current regime and plan of care. 09/16- Residential team meeting 09/18/23. 09/18/23- Continue treatment 09/19/23- Continue treatment 09/20: continue current management and treatment plan. 09/26/23: Continue treatment 09/27/2023: No changes 09/28/23: no changes- pt would like team to consider lowering olanzapine dose 09/29/23: Decrease Olanzapine to 10 mg bid Informed Consent: does not understand Reason for continued inpatient stay Substantial Risk for: rapid decompensation Time Spent With Patient Time: Total time managing care of this patient today ____ minutes.
[2023-09-29 20:00] VITALS: BP 105/62; PULSE 106; TEMP 37.1; O2SAT 94
[2023-09-30] MEDS: OLANZapine ODT 10 MG TAB.RAPDIS TRANSLINGU ×2 (09:29→20:10)
--- NOTE | 2023-09-30 10:28 | HO.PSYCHPN ---
Subjective Subjective Date of Service: 09/30/23 Reason For Visit: Schizoaffective disorder Subjective Notes: Conditional Voluntary Healthcare Proxy: Yes Guardianship: No Medical Problems Affecting Mental Status: No Interim History: Pt reviewed today what she needed to do in order to be able to discharge. She initiated this discussion- ADL's, medicine compliance, groups, meeting with residential team without conflicts she reports. I can do this now. Reports Olanzapine decrease is tolerated and helpful. Believes there was less conflict with her residential team last week, but I will continue to work. I want to go home and help again. Medication Compliance: Intermittent Side effects from medications: No Attending Groups: No Review of Systems Acute medical concerns: No Medical Review of Systems: unchanged Mental Status Exam Mental Status Exam Patient Appearance: Appropriate Patient Orientation: Person and Place Level of Consciousness: Awake and Alert Patient Behavior: Talkative and Pacing Behavior Comments: More pleasant Mood Description: Labile Affect Description: Labile Patient Cognition Impaired: Yes Ability to Follow Directions: Fair Speech Pattern: Spontaneous Speech Memory Description: Remote Impaired Hallucinations: None Delusions: Paranoid Ideation, Grandiose and Present Thought Process: Distracted and Goal Oriented Thought Content: positive for Circumstantial Judgement: Fair Diagnostics Vital Signs (24Hr): Vital Signs - 24 hr 09/29/23 20:00 Temperature 98.7 F Pulse Rate 106 H Blood Pressure 105/62 Pulse Oximetry 94 Oxygen Delivery Method Room Air BMI result Body Mass Index 37.7 Labs 09/26/23 14:40 09/26/23 14:40 Medications Medications Current Medications Al Hydroxide/Mg Hydroxide (Magnesium Hydrox/Alum Hydrox 30 Ml Oral.Susp) 30 ml PO Q6H PRN PRN Reason: Heartburn/Nausea Albuterol Sulfate (Albuterol Sulfate 90 Mcg 8 Gm Inhaler) 2 puff INHALE Q4H PRN PRN Reason: Wheezing Benztropine Mesylate (Benztropine Mesylate 1 Mg Tablet) 1 mg PO TID PRN PRN Reason: Extrapyramidal Effects Divalproex Sodium (Divalproex Sodium Er 500 Mg Tab.Er.24h) 500 mg PO BEDTIME COUNT INCLUDES [facility] Last Admin: 09/29/23 20:58 Dose: Not Given Duloxetine HCl (Duloxetine Hcl 20 Mg Capsule.Dr) 40 mg PO DAILY COUNT [facility]CLUD[facility] Last Admin: 09/30/23 10:03 Dose: Not Given Hydroxyzine HCl (Hydroxyzine Hcl 25 Mg Tablet) 25 mg PO Q6H PRN PRN Reason: Anxiety Ibuprofen (Ibuprofen 600 Mg Tablet) 600 mg PO Q4H PRN PRN Reason: moderate to severe pain Last Admin: 09/29/23 08:22 Dose: 600 mg Lorazepam (Lorazepam 0.5 Mg Tablet) 0.5 mg PO BID COUNT [facility]CLUDES [facility] Last Admin: 09/30/23 10:03 Dose: Not Given Magnesium Hydroxide (Milk Of Magnesia 30 Ml Oral.Susp) 30 ml PO DAILY PRN PRN Reason: Constipation Metronidazole (Metronidazole 0.75 % Gel 45 Gm Tube) 1 appl TOPICAL DAILY COUNT [facility]CLUDES [facility] Last Admin: 09/30/23 10:03 Dose: Not Given Multi-Ingred Cream/Lotion/Oil/Oint (Mineral Oil/Petrolatum,White 106 Gm Tube) 1 appl TOPICAL BID COUNT INCLUDES [facility]; Protocol Last Admin: 09/30/23 10:03 Dose: Not Given Multivitamins/Vitamin C (Multivitamin Tablet) 1 tab PO DAILY COUNT [facility]CLUDES [facility] Last Admin: 09/30/23 10:03 Dose: Not Given Olanzapine (Olanzapine Odt 10 Mg Tab.Rapdis) 10 mg TRANSLINGU DAILY PRN PRN Reason: Psychosis Last Admin: 08/04/23 17:34 Dose: 10 mg Olanzapine (Olanzapine 10 Mg Vial) 10 mg IM BID PRN PRN Reason: if refuses PO Zydis Last Admin: 08/13/23 09:17 Dose: 10 mg Olanzapine (Olanzapine Odt 10 Mg Tab.Rapdis) 10 mg TRANSLINGU BID COUNT INCLUDES [facility] Last Admin: 09/30/23 09:29 Dose: 10 mg Paliperidone Palmitate (Paliperidone Palmitate 234 Mg/1.5 Ml Syringe) 234 mg IM Q30D COUNT [facility]CLUDES [facility] Last Admin: 09/25/23 13:38 Dose: 234 mg Trazodone HCl (Trazodone Hcl 50 Mg Tablet) 50 mg PO BEDTIME MRX1 PRN PRN Reason: Insomnia Vitamin D (Cholecalciferol (Vitamin D3) 10 Mcg Tablet) 10 mcg PO DAILY COUNT [facility]CLUDES [facility] Last Admin: 09/30/23 10:03 Dose: Not Given Allergies Allergies Allergy/AdvReac Type Severity Reaction Status Date / Time acetaminophen [From TYLENOL] Allergy Intermediate HIVES Verified 08/28/22 09:48 meperidine [From Demerol] Allergy Unknown Verified 08/28/22 09:48 Assessment & Plan Assessment & Plan (1) Schizoaffective disorder: Qualifiers: Schizoaffective disorder type: bipolar Qualified Code(s): F25.0 - Schizoaffective disorder, bipolar type Status: Acute Code(s): F25.9 - Schizoaffective disorder, unspecified Assessment and Plan: Presents with decompensation of schizoaffective disorder, while in group living environment. Not adherence appears to be a factor. Patient not engaging with interview, evaluation or adherent with medications ie declining same. Unable to care for self. Being held on a Section 12 that will on 07/02/23. In the meantime will try and establish report and encourage medication adherence. Plan 06/29: encourage med adherence. 07/01/23: Ensure tid Will file Section VII on 07/02/23. 07/02/23: HCP activated today. Martine Elder is willing to serve in this role. [phone]. 07/03/23: Encourage treatment compliance 07/04/23 Encourage treatment compliance, begin process of validating HCP with the courts in order to provide pt with psychopharmacology options. 07/05/23 Encourage treatment. 07/07 remains disorganized in speech and behavior; refusing meds, paranoid -continue process of affirming HCP 07/08- Continue current plan. 07/09 continue current treatment plan 07/11/23 continue current treatment plan 07/12: Continue current regimen and plans 07/13: Continue current regimen and plans 07/14: Continue current plans and regimen 07/15/23: Continue current tx. Initiate regime 07/16. 07/17/23: Continue to encourage treatment. 07/18/23: Add prn Zyprexa IM if she refuses HS dosing 07/19: Continue current management and treatment plan. 07/20: Continue current management and treatment plan. 07/22: Continue tx. 07/23: Continue tx 07/24: Encourage milieu participation 07/26/23 continues too labile to interact with others- 07/27/23 - CTP encourage treatment 07/27/22 Continue tx plan; encourge meds as approved by HCP and court 07/29/23 schedule olanzepine discontinued after on hold for several days; awaiting invega sustenna to alleviate some of the psychosis in hopes patient more engageable and able to participate in her treatment; PO meds still ordered and should be offered with statement that they are court ordered and approved by HCP. 07/30/23 pt showing slight improvement- continue treatment plan 07/31/23 continue tx plan 08/01/23 continue tx plan 08/01 -Intermittently angry and irritable. Said hello to scenario writer but then when scenario writer asked how she was doing said none of your business. -Made swiping motion as if to scratch towards several staff, saying it was a curse -Yelled at peer today due to disorganized thought that person should not be in group room; yell that another peer who was going into the community refrigerator since patient thinks that the refrigerator is her property; able to be redirected 08/02 screamed at scenario writer and refused to enage. 08/03 staff agree Patient seems to be increasingly disorganized, walking briskly down the calle and yelling at peers, staff, making angry accusatory remarks and frightening and provoking some patients, causing some patients to become angry response. Will not engage with scenario writer. -patient on Invega Sustenna however behaviors are problematic, upsetting and sometimes scary to both peers and staff. Patient psychotic illness has gone untreated for quite some time and it seems likely she will need p.o. to overlap long-acting medication. Hogshead Opener reached out to patient's healthcare proxy Brit Elder and left message to discuss treatment 08/06/23- Continue tx. Pt today able to reach out and initiate discussion. Benztropine 1 mg tid prn EPS 08/07/23- Continue tx. 08/12/23: Diagnostics 08/13/23. 08/16: continue current management and treatment plan. 08/23/23 improving adls and med compliance- but picks and chooses who she will interact with 08/26/23- Continue tx- attempt diagnostics again this week. 08/29/23- Continue to attempt to get pt involved in discharge planning and daily routine expectations. 08/31/23- Continue to attempt education regarding intrusive behaviors, reality testing 09/01/23- Depakote ER 500 mg HS Increase Olanzapine 20 mg bid 09/03/23: CBCD, CMP, A1c, Lipids, TSH 09/03 for first time, pt pleasant, cooperative with scenario writer. c/o of some body aches but says ibuprofin helping. Has been asking nursing for discharge and responding angrily, saying she owns the hospital when request (for dc) not granted. 09/04 continue tx 09/05 continue tx 09/06 continue tx 09/12/23 Continue plan of care 09/12 Patient pleasant today; friendly with scenario writer. No complaints, walking up and down the calle singing to herself. When scenario writer was talking to another peer that she knows from the community, patient came up and encouraged this peer who was having a hard time. 09/13 remains much more pleasant and approachable, calm. dry skin vs psoriasis patches on face; will order lotion 09/14- Continue current regime and plan of care. 09/16- Residential team meeting 09/18/23. 09/18/23- Continue treatment 09/19/23- Continue treatment 09/20: continue current management and treatment plan. 09/26/23: Continue treatment 09/27/2023: No changes 09/28/23: no changes- pt would like team to consider lowering olanzapine dose 09/29/23: Decrease Olanzapine to 10 mg bid 09/30/23: Continue current regime Reason for continued inpatient stay Substantial Risk for: rapid decompensation Time Spent With Patient Time: Total time managing care of this patient today ____ minutes.
[2023-09-30] MEDS: Ibuprofen 600 MG TABLET PO (15:50)
[2023-09-30 20:00] VITALS: BP 120/58; PULSE 83; RESP 16; TEMP 36.2; O2SAT 98
[2023-10-01] MEDS: Ibuprofen 600 MG TABLET PO (06:38)
[2023-10-01 08:00] VITALS: RESP 18
[2023-10-01] MEDS: OLANZapine ODT 10 MG TAB.RAPDIS TRANSLINGU ×2 (08:37→20:14)
--- NOTE | 2023-10-01 13:04 | HO.PSYCHPN ---
Subjective Subjective Date of Service: 10/01/23 Reason For Visit: Schizoaffective disorder Subjective Notes: Conditional Voluntary Healthcare Proxy: Yes Guardianship: No Medical Problems Affecting Mental Status: No Interim History: Pt reports feeling well. No outbursts of behavioral dyscontrol. Preparing for meeting with her residential team on 10/01 to discuss discharge. Medication Compliance: Intermittent Side effects from medications: No Attending Groups: No Review of Systems Acute medical concerns: No Medical Review of Systems: unchanged Review of Systems Review of Systems Yes all other systems are reviewed and are negative Mental Status Exam Mental Status Exam Patient Appearance: Appropriate Patient Orientation: Person and Place Level of Consciousness: Awake and Alert Patient Behavior: Talkative and Pacing Behavior Comments: More pleasant Mood Description: Constricted Affect Description: Labile Patient Cognition Impaired: No Ability to Follow Directions: Fair Speech Pattern: Spontaneous Speech Memory Description: Remote Impaired Hallucinations: None Delusions: Paranoid Ideation (at times), Grandiose (at times) and Present (at times) Thought Process: Distracted and Goal Oriented Thought Content: positive for Circumstantial Depressive Symptoms: Back Pain Judgement: Fair Diagnostics Vital Signs (24Hr): Vital Signs - 24 hr 09/30/23 20:00 10/01/23 08:00 Temperature 97.1 F Pulse Rate 83 Respiratory Rate 16 18 Blood Pressure 120/58 L Pulse Oximetry 98 Oxygen Delivery Method Room Air BMI result Body Mass Index 37.7 Labs 09/26/23 14:40 09/26/23 14:40 Medications Medications Current Medications Al Hydroxide/Mg Hydroxide (Magnesium Hydrox/Alum Hydrox 30 Ml Oral.Susp) 30 ml PO Q6H PRN PRN Reason: Heartburn/Nausea Albuterol Sulfate (Albuterol Sulfate 90 Mcg 8 Gm Inhaler) 2 puff INHALE Q4H PRN PRN Reason: Wheezing Benztropine Mesylate (Benztropine Mesylate 1 Mg Tablet) 1 mg PO TID PRN PRN Reason: Extrapyramidal Effects Divalproex Sodium (Divalproex Sodium Er 500 Mg Tab.Er.24h) 500 mg PO BEDTIME [facility] Last Admin: 09/30/23 20:53 Dose: Not Given Duloxetine HCl (Duloxetine Hcl 20 Mg Capsule.Dr) 40 mg PO DAILY [facility] Last Admin: 10/01/23 08:48 Dose: Not Given Hydroxyzine HCl (Hydroxyzine Hcl 25 Mg Tablet) 25 mg PO Q6H PRN PRN Reason: Anxiety Ibuprofen (Ibuprofen 600 Mg Tablet) 600 mg PO Q4H PRN PRN Reason: moderate to severe pain Last Admin: 10/01/23 06:38 Dose: 600 mg Lorazepam (Lorazepam 0.5 Mg Tablet) 0.5 mg PO BID [facility] Last Admin: 10/01/23 08:48 Dose: Not Given Magnesium Hydroxide (Milk Of Magnesia 30 Ml Oral.Susp) 30 ml PO DAILY PRN PRN Reason: Constipation Metronidazole (Metronidazole 0.75 % Gel 45 Gm Tube) 1 appl TOPICAL DAILY [facility] Last Admin: 10/01/23 08:48 Dose: Not Given Multi-Ingred Cream/Lotion/Oil/Oint (Mineral Oil/Petrolatum,White 106 Gm Tube) 1 appl TOPICAL BID [facility]; Protocol Last Admin: 10/01/23 08:48 Dose: Not Given Multivitamins/Vitamin C (Multivitamin Tablet) 1 tab PO DAILY [facility] Last Admin: 10/01/23 08:48 Dose: Not Given Olanzapine (Olanzapine Odt 10 Mg Tab.Rapdis) 10 mg TRANSLINGU DAILY PRN PRN Reason: Psychosis Last Admin: 08/04/23 17:34 Dose: 10 mg Olanzapine (Olanzapine 10 Mg Vial) 10 mg IM BID PRN PRN Reason: if refuses PO Zydis Last Admin: 08/13/23 09:17 Dose: 10 mg Olanzapine (Olanzapine Odt 10 Mg Tab.Rapdis) 10 mg TRANSLINGU BID [facility] Last Admin: 10/01/23 08:37 Dose: 10 mg Paliperidone Palmitate (Paliperidone Palmitate 234 Mg/1.5 Ml Syringe) 234 mg IM Q30D [facility] Last Admin: 09/25/23 13:38 Dose: 234 mg Trazodone HCl (Trazodone Hcl 50 Mg Tablet) 50 mg PO BEDTIME MRX1 PRN PRN Reason: Insomnia Vitamin D (Cholecalciferol (Vitamin D3) 10 Mcg Tablet) 10 mcg PO DAILY [facility] Last Admin: 10/01/23 08:47 Dose: Not Given Allergies Allergies Allergy/AdvReac Type Severity Reaction Status Date / Time acetaminophen [From TYLENOL] Allergy Intermediate HIVES Verified 08/28/22 09:48 meperidine [From Demerol] Allergy Unknown Verified 08/28/22 09:48 Assessment & Plan Assessment & Plan (1) Schizoaffective disorder: Qualifiers: Schizoaffective disorder type: bipolar Qualified Code(s): F25.0 - Schizoaffective disorder, bipolar type Status: Acute Code(s): F25.9 - Schizoaffective disorder, unspecified Assessment and Plan: Presents with decompensation of schizoaffective disorder, while in group living environment. Not adherence appears to be a factor. Patient not engaging with interview, evaluation or adherent with medications ie declining same. Unable to care for self. Being held on a Section 12 that will on 07/02/23. In the meantime will try and establish report and encourage medication adherence. Plan 06/29: encourage med adherence. 07/01/23: Ensure tid Will file Section VII on 07/02/23. 07/02/23: HCP activated today. Martine Elder is willing to serve in this role. [phone]. 07/03/23: Encourage treatment compliance 07/04/23 Encourage treatment compliance, begin process of validating HCP with the courts in order to provide pt with psychopharmacology options. 07/05/23 Encourage treatment. 07/07 remains disorganized in speech and behavior; refusing meds, paranoid -continue process of affirming HCP 07/08- Continue current plan. 07/09 continue current treatment plan 07/11/23 continue current treatment plan 07/12: Continue current regimen and plans 07/13: Continue current regimen and plans 07/14: Continue current plans and regimen 07/15/23: Continue current tx. Initiate regime 07/16. 07/17/23: Continue to encourage treatment. 07/18/23: Add prn Zyprexa IM if she refuses HS dosing 07/19: Continue current management and treatment plan. 07/20: Continue current management and treatment plan. 07/22: Continue tx. 07/23: Continue tx 07/24: Encourage milieu participation 07/26/23 continues too labile to interact with others- 07/27/23 - CTP encourage treatment 07/27/22 Continue tx plan; encourge meds as approved by HCP and court 07/29/23 schedule olanzepine discontinued after on hold for several days; awaiting invega sustenna to alleviate some of the psychosis in hopes patient more engageable and able to participate in her treatment; PO meds still ordered and should be offered with statement that they are court ordered and approved by HCP. 07/30/23 pt showing slight improvement- continue treatment plan 07/31/23 continue tx plan 08/01/23 continue tx plan 08/01 -Intermittently angry and irritable. Said hello to technical proposal writer but then when technical proposal writer asked how she was doing said none of your business. -Made swiping motion as if to scratch towards several staff, saying it was a curse -Yelled at peer today due to disorganized thought that person should not be in group room; yell that another peer who was going into the community refrigerator since patient thinks that the refrigerator is her property; able to be redirected 08/02 screamed at technical proposal writer and refused to enage. 08/03 staff agree Patient seems to be increasingly disorganized, walking briskly down the calle and yelling at peers, staff, making angry accusatory remarks and frightening and provoking some patients, causing some patients to become angry response. Will not engage with technical proposal writer. -patient on Invega Sustenna however behaviors are problematic, upsetting and sometimes scary to both peers and staff. Patient psychotic illness has gone untreated for quite some time and it seems likely she will need p.o. to overlap long-acting medication. Machine Gun Mechanic reached out to patient's healthcare proxy Brit Elder and left message to discuss treatment 08/06/23- Continue tx. Pt today able to reach out and initiate discussion. Benztropine 1 mg tid prn EPS 08/07/23- Continue tx. 08/12/23: Diagnostics 08/13/23. 08/16: continue current management and treatment plan. 08/23/23 improving adls and med compliance- but picks and chooses who she will interact with 08/26/23- Continue tx- attempt diagnostics again this week. 08/29/23- Continue to attempt to get pt involved in discharge planning and daily routine expectations. 08/31/23- Continue to attempt education regarding intrusive behaviors, reality testing 09/01/23- Depakote ER 500 mg HS Increase Olanzapine 20 mg bid 09/03/23: CBCD, CMP, A1c, Lipids, TSH 09/03 for first time, pt pleasant, cooperative with technical proposal writer. c/o of some body aches but says ibuprofin helping. Has been asking nursing for discharge and responding angrily, saying she owns the hospital when request (for dc) not granted. 09/04 continue tx 09/05 continue tx 09/06 continue tx 09/12/23 Continue plan of care 09/12 Patient pleasant today; friendly with technical proposal writer. No complaints, walking up and down the calle singing to herself. When technical proposal writer was talking to another peer that she knows from the community, patient came up and encouraged this peer who was having a hard time. 09/13 remains much more pleasant and approachable, calm. dry skin vs psoriasis patches on face; will order lotion 09/14- Continue current regime and plan of care. 09/16- Residential team meeting 09/18/23. 09/18/23- Continue treatment 09/19/23- Continue treatment 09/20: continue current management and treatment plan. 09/26/23: Continue treatment 09/27/2023: No changes 09/28/23: no changes- pt would like team to consider lowering olanzapine dose 09/29/23: Decrease Olanzapine to 10 mg bid 09/30/23: Continue current regime 10/01/23: Team meeting with pt's residential team on 10/01 to discuss discharge. Reason for continued inpatient stay Substantial Risk for: rapid decompensation Time Spent With Patient Time: Total time managing care of this patient today ____ minutes.
[2023-10-02] MEDS: Ibuprofen 600 MG TABLET PO ×2 (07:19→20:52)
[2023-10-02 08:00] VITALS: RESP 16
[2023-10-02] MEDS: OLANZapine ODT 10 MG TAB.RAPDIS TRANSLINGU ×2 (08:56→20:52)
--- NOTE | 2023-10-02 19:05 | HO.PSYCHPN ---
Subjective Subjective Date of Service: 10/02/23 Reason For Visit: Schizoaffective disorder Subjective Notes: Conditional Voluntary Healthcare Proxy: Yes Guardianship: No Medical Problems Affecting Mental Status: No Interim History: Meeting with pt, team, residential team. Discharge planning for 10/08. Discussed HCP activation, affirmation with court and meaning for community compliance. Pt in control and a full participant for the entire meeting. Looking forward to going to camp with the residential upon discharge. Review of meds, hospital process, current fixed delusions, poor PO compliance with meds that she does not have to have-agrees to Olanzapine and Sustenna IM Medication Compliance: Yes Side effects from medications: No Attending Groups: No Review of Systems Acute medical concerns: No Medical Review of Systems: unchanged Review of Systems Review of Systems Yes all other systems are reviewed and are negative Mental Status Exam Mental Status Exam Patient Appearance: Appropriate Patient Orientation: Person and Place Level of Consciousness: Awake and Alert Patient Behavior: Talkative and Pacing Behavior Comments: More pleasant Mood Description: Constricted Affect Description: Labile Patient Cognition Impaired: No Ability to Follow Directions: Fair Speech Pattern: Spontaneous Speech Memory Description: Remote Impaired Hallucinations: None Delusions: Paranoid Ideation (at times), Grandiose (at times) and Present (at times) Thought Process: Distracted and Goal Oriented Thought Content: positive for Circumstantial Depressive Symptoms: Back Pain Judgement: Fair Diagnostics Vital Signs (24Hr): Vital Signs - 24 hr 10/02/23 08:00 Respiratory Rate 16 BMI result Body Mass Index 37.7 Labs 09/26/23 14:40 09/26/23 14:40 Medications Medications Current Medications Al Hydroxide/Mg Hydroxide (Magnesium Hydrox/Alum Hydrox 30 Ml Oral.Susp) 30 ml PO Q6H PRN PRN Reason: Heartburn/Nausea Albuterol Sulfate (Albuterol Sulfate 90 Mcg 8 Gm Inhaler) 2 puff INHALE Q4H PRN PRN Reason: Wheezing Benztropine Mesylate (Benztropine Mesylate 1 Mg Tablet) 1 mg PO TID PRN PRN Reason: Extrapyramidal Effects Hydroxyzine HCl (Hydroxyzine Hcl 25 Mg Tablet) 25 mg PO Q6H PRN PRN Reason: Anxiety Ibuprofen (Ibuprofen 600 Mg Tablet) 600 mg PO Q4H PRN PRN Reason: moderate to severe pain Last Admin: 10/02/23 07:19 Dose: 600 mg Lorazepam (Lorazepam 0.5 Mg Tablet) 0.5 mg PO BID [facility] Last Admin: 10/02/23 08:56 Dose: Not Given Magnesium Hydroxide (Milk Of Magnesia 30 Ml Oral.Susp) 30 ml PO DAILY PRN PRN Reason: Constipation Metronidazole (Metronidazole 0.75 % Gel 45 Gm Tube) 1 appl TOPICAL DAILY [facility] Last Admin: 10/02/23 08:56 Dose: Not Given Multi-Ingred Cream/Lotion/Oil/Oint (Mineral Oil/Petrolatum,White 106 Gm Tube) 1 appl TOPICAL BID [facility]; Protocol Last Admin: 10/02/23 08:56 Dose: Not Given Multivitamins/Vitamin C (Multivitamin Tablet) 1 tab PO DAILY [facility] Last Admin: 10/02/23 08:57 Dose: Not Given Olanzapine (Olanzapine Odt 10 Mg Tab.Rapdis) 10 mg TRANSLINGU DAILY PRN PRN Reason: Psychosis Last Admin: 08/04/23 17:34 Dose: 10 mg Olanzapine (Olanzapine 10 Mg Vial) 10 mg IM BID PRN PRN Reason: if refuses PO Zydis Last Admin: 08/13/23 09:17 Dose: 10 mg Olanzapine (Olanzapine Odt 10 Mg Tab.Rapdis) 10 mg TRANSLINGU BID [facility] Last Admin: 10/02/23 08:56 Dose: 10 mg Paliperidone Palmitate (Paliperidone Palmitate 234 Mg/1.5 Ml Syringe) 234 mg IM Q30D [facility] Last Admin: 09/25/23 13:38 Dose: 234 mg Trazodone HCl (Trazodone Hcl 50 Mg Tablet) 50 mg PO BEDTIME MRX1 PRN PRN Reason: Insomnia Vitamin D (Cholecalciferol (Vitamin D3) 10 Mcg Tablet) 10 mcg PO DAILY [facility] Last Admin: 10/02/23 08:56 Dose: Not Given Allergies Allergies Allergy/AdvReac Type Severity Reaction Status Date / Time acetaminophen [From TYLENOL] Allergy Intermediate HIVES Verified 08/28/22 09:48 meperidine [From Demerol] Allergy Unknown Verified 08/28/22 09:48 Assessment & Plan Assessment & Plan (1) Schizoaffective disorder: Qualifiers: Schizoaffective disorder type: bipolar Qualified Code(s): F25.0 - Schizoaffective disorder, bipolar type Status: Acute Code(s): F25.9 - Schizoaffective disorder, unspecified Assessment and Plan: Presents with decompensation of schizoaffective disorder, while in group living environment. Not adherence appears to be a factor. Patient not engaging with interview, evaluation or adherent with medications ie declining same. Unable to care for self. Being held on a Section 12 that will on 07/02/23. In the meantime will try and establish report and encourage medication adherence. Plan 06/29: encourage med adherence. 07/01/23: Ensure tid Will file Section VII on 07/02/23. 07/02/23: HCP activated today. Martine Elder is willing to serve in this role. [phone]. 07/03/23: Encourage treatment compliance 07/04/23 Encourage treatment compliance, begin process of validating HCP with the courts in order to provide pt with psychopharmacology options. 07/05/23 Encourage treatment. 07/07 remains disorganized in speech and behavior; refusing meds, paranoid -continue process of affirming HCP 07/08- Continue current plan. 07/09 continue current treatment plan 07/11/23 continue current treatment plan 07/12: Continue current regimen and plans 07/13: Continue current regimen and plans 07/14: Continue current plans and regimen 07/15/23: Continue current tx. Initiate regime 07/16. 07/17/23: Continue to encourage treatment. 07/18/23: Add prn Zyprexa IM if she refuses HS dosing 07/19: Continue current management and treatment plan. 07/20: Continue current management and treatment plan. 07/22: Continue tx. 07/23: Continue tx 07/24: Encourage milieu participation 07/26/23 continues too labile to interact with others- 07/27/23 - CTP encourage treatment 07/27/22 Continue tx plan; encourge meds as approved by HCP and court 07/29/23 schedule olanzepine discontinued after on hold for several days; awaiting invega sustenna to alleviate some of the psychosis in hopes patient more engageable and able to participate in her treatment; PO meds still ordered and should be offered with statement that they are court ordered and approved by HCP. 07/30/23 pt showing slight improvement- continue treatment plan 07/31/23 continue tx plan 08/01/23 continue tx plan 08/01 -Intermittently angry and irritable. Said hello to senior copywriter but then when senior copywriter asked how she was doing said none of your business. -Made swiping motion as if to scratch towards several staff, saying it was a curse -Yelled at peer today due to disorganized thought that person should not be in group room; yell that another peer who was going into the community refrigerator since patient thinks that the refrigerator is her property; able to be redirected 08/02 screamed at senior copywriter and refused to enage. 08/03 staff agree Patient seems to be increasingly disorganized, walking briskly down the calle and yelling at peers, staff, making angry accusatory remarks and frightening and provoking some patients, causing some patients to become angry response. Will not engage with senior copywriter. -patient on Invega Sustenna however behaviors are problematic, upsetting and sometimes scary to both peers and staff. Patient psychotic illness has gone untreated for quite some time and it seems likely she will need p.o. to overlap long-acting medication. Clerical Receptionist reached out to patient's healthcare proxy Brit Elder and left message to discuss treatment 08/06/23- Continue tx. Pt today able to reach out and initiate discussion. Benztropine 1 mg tid prn EPS 08/07/23- Continue tx. 08/12/23: Diagnostics 08/13/23. 08/16: continue current management and treatment plan. 08/23/23 improving adls and med compliance- but picks and chooses who she will interact with 08/26/23- Continue tx- attempt diagnostics again this week. 08/29/23- Continue to attempt to get pt involved in discharge planning and daily routine expectations. 08/31/23- Continue to attempt education regarding intrusive behaviors, reality testing 09/01/23- Depakote ER 500 mg HS Increase Olanzapine 20 mg bid 09/03/23: CBCD, CMP, A1c, Lipids, TSH 09/03 for first time, pt pleasant, cooperative with senior copywriter. c/o of some body aches but says ibuprofin helping. Has been asking nursing for discharge and responding angrily, saying she owns the hospital when request (for dc) not granted. 09/04 continue tx 09/05 continue tx 09/06 continue tx 09/12/23 Continue plan of care 09/12 Patient pleasant today; friendly with senior copywriter. No complaints, walking up and down the calle singing to herself. When senior copywriter was talking to another peer that she knows from the community, patient came up and encouraged this peer who was having a hard time. 09/13 remains much more pleasant and approachable, calm. dry skin vs psoriasis patches on face; will order lotion 09/14- Continue current regime and plan of care. 09/16- Residential team meeting 09/18/23. 09/18/23- Continue treatment 09/19/23- Continue treatment 09/20: continue current management and treatment plan. 09/26/23: Continue treatment 09/27/2023: No changes 09/28/23: no changes- pt would like team to consider lowering olanzapine dose 09/29/23: Decrease Olanzapine to 10 mg bid 09/30/23: Continue current regime 10/02/23: Discharge planning for 10/09/23. Reason for continued inpatient stay Substantial Risk for: rapid decompensation Time Spent With Patient Time: Total time managing care of this patient today ____ minutes.
[2023-10-02 20:00] VITALS: BP 134/90; PULSE 85; RESP 18; TEMP 36.2; O2SAT 98
[2023-10-03] MEDS: Ibuprofen 600 MG TABLET PO ×3 (10:25→20:13)
[2023-10-03] MEDS: OLANZapine ODT 10 MG TAB.RAPDIS TRANSLINGU ×2 (10:26→20:13)
--- NOTE | 2023-10-03 16:34 | P.PNPSI_ITS ---
Subjective Subjective Date of Service: 10/03/23 Reason For Visit: Schizoaffective disorder Subjective Notes: Conditional Voluntary Healthcare Proxy: Yes Guardianship: No Medical Problems Affecting Mental Status: No Interim History: Reports feeling well. Pleased with the outcome of her residential meeting on 10/01. Discharge to her residence planned for 10/08. Increased milieu involvement, encouraging a peer to walk with her and listen to music. Medication Compliance: Yes Side effects from medications: No Attending Groups: Intermittent Review of Systems Acute medical concerns: No Medical Review of Systems: unchanged Review of Systems Review of Systems Yes all other systems are reviewed and are negative Mental Status Exam Mental Status Exam Patient Appearance: Appropriate Patient Orientation: Person and Place Level of Consciousness: Awake and Alert Patient Behavior: Talkative and Pacing Behavior Comments: More pleasant Mood Description: Constricted Affect Description: Labile Patient Cognition Impaired: No Ability to Follow Directions: Fair Speech Pattern: Spontaneous Speech Memory Description: Remote Impaired Hallucinations: None Delusions: Paranoid Ideation (at times), Grandiose (at times) and Present (at times) Thought Process: Distracted and Goal Oriented Thought Content: positive for Circumstantial Depressive Symptoms: Back Pain Judgement: Fair Diagnostics Vital Signs (24Hr): Vital Signs - 24 hr 10/02/23 20:00 Temperature 97.1 F Pulse Rate 85 Respiratory Rate 18 Blood Pressure 134/90 H Pulse Oximetry 98 Oxygen Delivery Method Room Air BMI result Body Mass Index 37.7 Labs 09/26/23 14:40 09/26/23 14:40 Medications Medications Current Medications Al Hydroxide/Mg Hydroxide (Magnesium Hydrox/Alum Hydrox 30 Ml Oral.Susp) 30 ml PO Q6H PRN PRN Reason: Heartburn/Nausea Albuterol Sulfate (Albuterol Sulfate 90 Mcg 8 Gm Inhaler) 2 puff INHALE Q4H PRN PRN Reason: Wheezing Benztropine Mesylate (Benztropine Mesylate 1 Mg Tablet) 1 mg PO TID PRN PRN Reason: Extrapyramidal Effects Hydroxyzine HCl (Hydroxyzine Hcl 25 Mg Tablet) 25 mg PO Q6H PRN PRN Reason: Anxiety Ibuprofen (Ibuprofen 600 Mg Tablet) 600 mg PO Q4H PRN PRN Reason: moderate to severe pain Last Admin: 10/03/23 10:25 Dose: 600 mg Lorazepam (Lorazepam 0.5 Mg Tablet) 0.5 mg PO BID [facility] Last Admin: 10/03/23 10:27 Dose: Not Given Magnesium Hydroxide (Milk Of Magnesia 30 Ml Oral.Susp) 30 ml PO DAILY PRN PRN Reason: Constipation Metronidazole (Metronidazole 0.75 % Gel 45 Gm Tube) 1 appl TOPICAL DAILY [facility] Last Admin: 10/03/23 10:27 Dose: Not Given Multi-Ingred Cream/Lotion/Oil/Oint (Mineral Oil/Petrolatum,White 106 Gm Tube) 1 appl TOPICAL BID [facility]; Protocol Last Admin: 10/03/23 10:27 Dose: Not Given Multivitamins/Vitamin C (Multivitamin Tablet) 1 tab PO DAILY [facility] Last Admin: 10/03/23 10:27 Dose: Not Given Olanzapine (Olanzapine Odt 10 Mg Tab.Rapdis) 10 mg TRANSLINGU DAILY PRN PRN Reason: Psychosis Last Admin: 08/04/23 17:34 Dose: 10 mg Olanzapine (Olanzapine 10 Mg Vial) 10 mg IM BID PRN PRN Reason: if refuses PO Zydis Last Admin: 08/13/23 09:17 Dose: 10 mg Olanzapine (Olanzapine Odt 10 Mg Tab.Rapdis) 10 mg TRANSLINGU BID [facility] Last Admin: 10/03/23 10:26 Dose: 10 mg Paliperidone Palmitate (Paliperidone Palmitate 234 Mg/1.5 Ml Syringe) 234 mg IM Q30D [facility] Last Admin: 09/25/23 13:38 Dose: 234 mg Trazodone HCl (Trazodone Hcl 50 Mg Tablet) 50 mg PO BEDTIME MRX1 PRN PRN Reason: Insomnia Vitamin D (Cholecalciferol (Vitamin D3) 10 Mcg Tablet) 10 mcg PO DAILY [facility] Last Admin: 10/03/23 10:26 Dose: Not Given Allergies Allergies Allergy/AdvReac Type Severity Reaction Status Date / Time acetaminophen [From TYLENOL] Allergy Intermediate HIVES Verified 08/28/22 09:48 meperidine [From Demerol] Allergy Unknown Verified 08/28/22 09:48 Assessment & Plan Assessment & Plan (1) Schizoaffective disorder: Qualifiers: Schizoaffective disorder type: bipolar Qualified Code(s): F25.0 - Schizoaffective disorder, bipolar type Status: Acute Code(s): F25.9 - Schizoaffective disorder, unspecified Assessment and Plan: Presents with decompensation of schizoaffective disorder, while in group living environment. Not adherence appears to be a factor. Patient not engaging with interview, evaluation or adherent with medications ie declining same. Unable to care for self. Being held on a Section 12 that will on 07/02/23. In the meantime will try and establish report and encourage medication adherence. Plan 06/29: encourage med adherence. 07/01/23: Ensure tid Will file Section VII on 07/02/23. 07/02/23: HCP activated today. Martine Elder is willing to serve in this role. [phone]. 07/03/23: Encourage treatment compliance 07/04/23 Encourage treatment compliance, begin process of validating HCP with the courts in order to provide pt with psychopharmacology options. 07/05/23 Encourage treatment. 07/07 remains disorganized in speech and behavior; refusing meds, paranoid -continue process of affirming HCP 07/08- Continue current plan. 07/09 continue current treatment plan 07/11/23 continue current treatment plan 07/12: Continue current regimen and plans 07/13: Continue current regimen and plans 07/14: Continue current plans and regimen 07/15/23: Continue current tx. Initiate regime 07/16. 07/17/23: Continue to encourage treatment. 07/18/23: Add prn Zyprexa IM if she refuses HS dosing 07/19: Continue current management and treatment plan. 07/20: Continue current management and treatment plan. 07/22: Continue tx. 07/23: Continue tx 07/24: Encourage milieu participation 07/26/23 continues too labile to interact with others- 07/27/23 - CTP encourage treatment 07/27/22 Continue tx plan; encourge meds as approved by HCP and court 07/29/23 schedule olanzepine discontinued after on hold for several days; awaiting invega sustenna to alleviate some of the psychosis in hopes patient more engageable and able to participate in her treatment; PO meds still ordered and should be offered with statement that they are court ordered and approved by HCP. 07/30/23 pt showing slight improvement- continue treatment plan 07/31/23 continue tx plan 08/01/23 continue tx plan 08/01 -Intermittently angry and irritable. Said hello to continuity writer but then when continuity writer asked how she was doing said none of your business. -Made swiping motion as if to scratch towards several staff, saying it was a curse -Yelled at peer today due to disorganized thought that person should not be in group room; yell that another peer who was going into the community refrigerator since patient thinks that the refrigerator is her property; able to be redirected 08/02 screamed at continuity writer and refused to enage. 08/03 staff agree Patient seems to be increasingly disorganized, walking briskly down the calle and yelling at peers, staff, making angry accusatory remarks and frightening and provoking some patients, causing some patients to become angry response. Will not engage with continuity writer. -patient on Invega Sustenna however behaviors are problematic, upsetting and sometimes scary to both peers and staff. Patient psychotic illness has gone untreated for quite some time and it seems likely she will need p.o. to overlap long-acting medication. Butcher'S Assistant reached out to patient's healthcare proxy Brit Elder and left message to discuss treatment 08/06/23- Continue tx. Pt today able to reach out and initiate discussion. Benztropine 1 mg tid prn EPS 08/07/23- Continue tx. 08/12/23: Diagnostics 08/13/23. 08/16: continue current management and treatment plan. 08/23/23 improving adls and med compliance- but picks and chooses who she will interact with 08/26/23- Continue tx- attempt diagnostics again this week. 08/29/23- Continue to attempt to get pt involved in discharge planning and daily routine expectations. 08/31/23- Continue to attempt education regarding intrusive behaviors, reality testing 09/01/23- Depakote ER 500 mg HS Increase Olanzapine 20 mg bid 09/03/23: CBCD, CMP, A1c, Lipids, TSH 09/03 for first time, pt pleasant, cooperative with continuity writer. c/o of some body aches but says ibuprofin helping. Has been asking nursing for discharge and responding angrily, saying she owns the hospital when request (for dc) not granted. 09/04 continue tx 09/05 continue tx 09/06 continue tx 09/12/23 Continue plan of care 09/12 Patient pleasant today; friendly with continuity writer. No complaints, walking up and down the calle singing to herself. When continuity writer was talking to another peer that she knows from the community, patient came up and encouraged this peer who was having a hard time. 09/13 remains much more pleasant and approachable, calm. dry skin vs psoriasis patches on face; will order lotion 09/14- Continue current regime and plan of care. 09/16- Residential team meeting 09/18/23. 09/18/23- Continue treatment 09/19/23- Continue treatment 09/20: continue current management and treatment plan. 09/26/23: Continue treatment 09/27/2023: No changes 09/28/23: no changes- pt would like team to consider lowering olanzapine dose 09/29/23: Decrease Olanzapine to 10 mg bid 09/30/23: Continue current regime 10/02/23: Discharge planning for 10/09/23. 10/03/23: Continue current regime. Reason for continued inpatient stay Substantial Risk for: rapid decompensation Time Spent With Patient Time: Total time managing care of this patient today ____ minutes.
[2023-10-03 20:00] VITALS: BP 128/73; PULSE 109; RESP 18; TEMP 36.8; O2SAT 94
[2023-10-04 08:00] VITALS: BP 128/84; PULSE 90; RESP 16; TEMP 36.2; O2SAT 96
[2023-10-04] MEDS: OLANZapine ODT 10 MG TAB.RAPDIS TRANSLINGU ×2 (08:22→22:55)
[2023-10-04] MEDS: Ibuprofen 600 MG TABLET PO ×3 (08:23→22:55)
--- NOTE | 2023-10-04 08:38 | HO.PSYCHPN ---
Subjective Subjective Date of Service: 10/04/23 Reason For Visit: Schizoaffective disorder Interim History: Pt still lying in bed, still not willing to engage provider but did respond more appropriately agreeing with provider that she is getting better, continues to only agree to take olanzapine, but less labile - calling nurses by actual names instead of made up paranoid names. Medication Compliance: Yes Side effects from medications: Yes (weight gain) Attending Groups: No Review of Systems Medical Review of Systems: unchanged Mental Status Exam Mental Status Exam Patient Appearance: Disheveled and Unkempt Patient Orientation: Person and Place Level of Consciousness: Awake Patient Behavior: Uncooperative Mood Description: Withdrawn Affect Description: Blunted Ability to Follow Directions: Poor Speech Pattern: Clear Judgement: Fair Diagnostics Vital Signs (24Hr): Vital Signs - 24 hr 10/03/23 20:00 Temperature 98.2 F Pulse Rate 109 H Respiratory Rate 18 Blood Pressure 128/73 Pulse Oximetry 94 Oxygen Delivery Method Room Air BMI result Body Mass Index 37.7 Labs 09/26/23 14:40 09/26/23 14:40 Medications Medications Current Medications Al Hydroxide/Mg Hydroxide (Magnesium Hydrox/Alum Hydrox 30 Ml Oral.Susp) 30 ml PO Q6H PRN PRN Reason: Heartburn/Nausea Albuterol Sulfate (Albuterol Sulfate 90 Mcg 8 Gm Inhaler) 2 puff INHALE Q4H PRN PRN Reason: Wheezing Benztropine Mesylate (Benztropine Mesylate 1 Mg Tablet) 1 mg PO TID PRN PRN Reason: Extrapyramidal Effects Hydroxyzine HCl (Hydroxyzine Hcl 25 Mg Tablet) 25 mg PO Q6H PRN PRN Reason: Anxiety Ibuprofen (Ibuprofen 600 Mg Tablet) 600 mg PO Q4H PRN PRN Reason: moderate to severe pain Last Admin: 10/04/23 08:23 Dose: 600 mg Lorazepam (Lorazepam 0.5 Mg Tablet) 0.5 mg PO BID [facility] Last Admin: 10/04/23 08:24 Dose: Not Given Magnesium Hydroxide (Milk Of Magnesia 30 Ml Oral.Susp) 30 ml PO DAILY PRN PRN Reason: Constipation Metronidazole (Metronidazole 0.75 % Gel 45 Gm Tube) 1 appl TOPICAL DAILY [facility] Last Admin: 10/04/23 08:24 Dose: Not Given Multi-Ingred Cream/Lotion/Oil/Oint (Mineral Oil/Petrolatum,White 106 Gm Tube) 1 appl TOPICAL BID [facility]; Protocol Last Admin: 10/04/23 08:24 Dose: Not Given Multivitamins/Vitamin C (Multivitamin Tablet) 1 tab PO DAILY [facility] Last Admin: 10/04/23 08:24 Dose: Not Given Olanzapine (Olanzapine Odt 10 Mg Tab.Rapdis) 10 mg TRANSLINGU DAILY PRN PRN Reason: Psychosis Last Admin: 08/04/23 17:34 Dose: 10 mg Olanzapine (Olanzapine 10 Mg Vial) 10 mg IM BID PRN PRN Reason: if refuses PO Zydis Last Admin: 08/13/23 09:17 Dose: 10 mg Olanzapine (Olanzapine Odt 10 Mg Tab.Rapdis) 10 mg TRANSLINGU BID [facility] Last Admin: 10/04/23 08:22 Dose: 10 mg Paliperidone Palmitate (Paliperidone Palmitate 234 Mg/1.5 Ml Syringe) 234 mg IM Q30D [facility] Last Admin: 09/25/23 13:38 Dose: 234 mg Trazodone HCl (Trazodone Hcl 50 Mg Tablet) 50 mg PO BEDTIME MRX1 PRN PRN Reason: Insomnia Vitamin D (Cholecalciferol (Vitamin D3) 10 Mcg Tablet) 10 mcg PO DAILY [facility] Last Admin: 10/04/23 08:24 Dose: Not Given Allergies Allergies Allergy/AdvReac Type Severity Reaction Status Date / Time acetaminophen [From TYLENOL] Allergy Intermediate HIVES Verified 08/28/22 09:48 meperidine [From Demerol] Allergy Unknown Verified 08/28/22 09:48 Assessment & Plan Assessment & Plan (1) Schizoaffective disorder: Qualifiers: Schizoaffective disorder type: bipolar Qualified Code(s): F25.0 - Schizoaffective disorder, bipolar type Status: Acute Code(s): F25.9 - Schizoaffective disorder, unspecified Assessment and Plan: Presents with decompensation of schizoaffective disorder, while in group living environment. Not adherence appears to be a factor. Patient not engaging with interview, evaluation or adherent with medications ie declining same. Unable to care for self. Being held on a Section 12 that will on 07/02/23. In the meantime will try and establish report and encourage medication adherence. Plan 06/29: encourage med adherence. 07/01/23: Ensure tid Will file Section VII on 07/02/23. 07/02/23: HCP activated today. Martine Elder is willing to serve in this role. [phone]. 07/03/23: Encourage treatment compliance 07/04/23 Encourage treatment compliance, begin process of validating HCP with the courts in order to provide pt with psychopharmacology options. 07/05/23 Encourage treatment. 07/07 remains disorganized in speech and behavior; refusing meds, paranoid -continue process of affirming HCP 07/08- Continue current plan. 07/09 continue current treatment plan 07/11/23 continue current treatment plan 07/12: Continue current regimen and plans 07/13: Continue current regimen and plans 07/14: Continue current plans and regimen 07/15/23: Continue current tx. Initiate regime 07/16. 07/17/23: Continue to encourage treatment. 07/18/23: Add prn Zyprexa IM if she refuses HS dosing 07/19: Continue current management and treatment plan. 07/20: Continue current management and treatment plan. 07/22: Continue tx. 07/23: Continue tx 07/24: Encourage milieu participation 07/26/23 continues too labile to interact with others- 07/27/23 - CTP encourage treatment 07/27/22 Continue tx plan; encourge meds as approved by HCP and court 07/29/23 schedule olanzepine discontinued after on hold for several days; awaiting invega sustenna to alleviate some of the psychosis in hopes patient more engageable and able to participate in her treatment; PO meds still ordered and should be offered with statement that they are court ordered and approved by HCP. 07/30/23 pt showing slight improvement- continue treatment plan 07/31/23 continue tx plan 08/01/23 continue tx plan 08/01 -Intermittently angry and irritable. Said hello to pattern chart writer but then when pattern chart writer asked how she was doing said none of your business. -Made swiping motion as if to scratch towards several staff, saying it was a curse -Yelled at peer today due to disorganized thought that person should not be in group room; yell that another peer who was going into the community refrigerator since patient thinks that the refrigerator is her property; able to be redirected 08/02 screamed at pattern chart writer and refused to enage. 08/03 staff agree Patient seems to be increasingly disorganized, walking briskly down the calle and yelling at peers, staff, making angry accusatory remarks and frightening and provoking some patients, causing some patients to become angry response. Will not engage with pattern chart writer. -patient on Invega Sustenna however behaviors are problematic, upsetting and sometimes scary to both peers and staff. Patient psychotic illness has gone untreated for quite some time and it seems likely she will need p.o. to overlap long-acting medication. Avionics Engineer reached out to patient's healthcare proxy Brit Elder and left message to discuss treatment 08/06/23- Continue tx. Pt today able to reach out and initiate discussion. Benztropine 1 mg tid prn EPS 08/07/23- Continue tx. 08/12/23: Diagnostics 08/13/23. 08/16: continue current management and treatment plan. 08/23/23 improving adls and med compliance- but picks and chooses who she will interact with 08/26/23- Continue tx- attempt diagnostics again this week. 08/29/23- Continue to attempt to get pt involved in discharge planning and daily routine expectations. 08/31/23- Continue to attempt education regarding intrusive behaviors, reality testing 09/01/23- Depakote ER 500 mg HS Increase Olanzapine 20 mg bid 09/03/23: CBCD, CMP, A1c, Lipids, TSH 09/03 for first time, pt pleasant, cooperative with pattern chart writer. c/o of some body aches but says ibuprofin helping. Has been asking nursing for discharge and responding angrily, saying she owns the hospital when request (for dc) not granted. 09/04 continue tx 09/05 continue tx 09/06 continue tx 09/12/23 Continue plan of care 09/12 Patient pleasant today; friendly with pattern chart writer. No complaints, walking up and down the calle singing to herself. When pattern chart writer was talking to another peer that she knows from the community, patient came up and encouraged this peer who was having a hard time. 09/13 remains much more pleasant and approachable, calm. dry skin vs psoriasis patches on face; will order lotion 09/14- Continue current regime and plan of care. 09/16- Residential team meeting 09/18/23. 09/18/23- Continue treatment 09/19/23- Continue treatment 09/20: continue current management and treatment plan. 09/26/23: Continue treatment 09/27/2023: No changes 09/28/23: no changes- pt would like team to consider lowering olanzapine dose 09/29/23: Decrease Olanzapine to 10 mg bid 09/30/23: Continue current regime 10/02/23: Discharge planning for 10/09/23. 10/03/23: Continue current regime. 10/04/23 CTP pending dc Informed Consent: further education needed Reason for continued inpatient stay Substantial Risk for: rapid decompensation Time Spent With Patient Time: Total time managing care of this patient today ____ minutes.
[2023-10-05] MEDS: OLANZapine ODT 10 MG TAB.RAPDIS TRANSLINGU ×2 (08:53→20:36)
[2023-10-05] MEDS: Ibuprofen 600 MG TABLET PO (08:53)
--- NOTE | 2023-10-05 10:45 | P.PNPSI_ITS ---
Subjective Subjective Date of Service: 10/05/23 Reason For Visit: Schizoaffective disorder Interim History: Pt doing better, more appropriate with staff , lying in bed, saying she is tired but did get up briefly with me to talk about getting dc- feeling positive and future oriented Medication Compliance: Yes Side effects from medications: Yes Attending Groups: No Review of Systems Acute medical concerns: Yes elevated glucose Medical Review of Systems: unchanged Mental Status Exam Mental Status Exam Patient Appearance: Well Grooomed Patient Orientation: Person, Place, Time and Situation Level of Consciousness: Awake (but lying in bed) Patient Behavior: Passive Mood Description: Calm Affect Description: Blunted Patient Cognition Impaired: No Ability to Follow Directions: Fair Speech Pattern: Clear and Impoverished Thought Process: Intact Thought Content: positive for Poverty of Content Judgement: Fair Diagnostics Vital Signs (24Hr): BMI result Body Mass Index 37.7 Labs 09/26/23 14:40 09/26/23 14:40 Medications Medications Current Medications Al Hydroxide/Mg Hydroxide (Magnesium Hydrox/Alum Hydrox 30 Ml Oral.Susp) 30 ml PO Q6H PRN PRN Reason: Heartburn/Nausea Albuterol Sulfate (Albuterol Sulfate 90 Mcg 8 Gm Inhaler) 2 puff INHALE Q4H PRN PRN Reason: Wheezing Benztropine Mesylate (Benztropine Mesylate 1 Mg Tablet) 1 mg PO TID PRN PRN Reason: Extrapyramidal Effects Hydroxyzine HCl (Hydroxyzine Hcl 25 Mg Tablet) 25 mg PO Q6H PRN PRN Reason: Anxiety Ibuprofen (Ibuprofen 600 Mg Tablet) 600 mg PO Q4H PRN PRN Reason: moderate to severe pain Last Admin: 10/05/23 08:53 Dose: 600 mg Lorazepam (Lorazepam 0.5 Mg Tablet) 0.5 mg PO BID [facility] Last Admin: 10/05/23 08:55 Dose: Not Given Magnesium Hydroxide (Milk Of Magnesia 30 Ml Oral.Susp) 30 ml PO DAILY PRN PRN Reason: Constipation Metronidazole (Metronidazole 0.75 % Gel 45 Gm Tube) 1 appl TOPICAL DAILY [facility] Last Admin: 10/05/23 08:55 Dose: Not Given Multi-Ingred Cream/Lotion/Oil/Oint (Mineral Oil/Petrolatum,White 106 Gm Tube) 1 appl TOPICAL BID [facility]; Protocol Last Admin: 10/05/23 08:55 Dose: Not Given Multivitamins/Vitamin C (Multivitamin Tablet) 1 tab PO DAILY [facility] Last Admin: 10/05/23 08:55 Dose: Not Given Olanzapine (Olanzapine Odt 10 Mg Tab.Rapdis) 10 mg TRANSLINGU DAILY PRN PRN Reason: Psychosis Last Admin: 08/04/23 17:34 Dose: 10 mg Olanzapine (Olanzapine 10 Mg Vial) 10 mg IM BID PRN PRN Reason: if refuses PO Zydis Last Admin: 08/13/23 09:17 Dose: 10 mg Olanzapine (Olanzapine Odt 10 Mg Tab.Rapdis) 10 mg TRANSLINGU BID [facility] Last Admin: 10/05/23 08:53 Dose: 10 mg Paliperidone Palmitate (Paliperidone Palmitate 234 Mg/1.5 Ml Syringe) 234 mg IM Q30D [facility] Last Admin: 09/25/23 13:38 Dose: 234 mg Trazodone HCl (Trazodone Hcl 50 Mg Tablet) 50 mg PO BEDTIME MRX1 PRN PRN Reason: Insomnia Vitamin D (Cholecalciferol (Vitamin D3) 10 Mcg Tablet) 10 mcg PO DAILY [facility] Last Admin: 10/05/23 08:54 Dose: Not Given Allergies Allergies Allergy/AdvReac Type Severity Reaction Status Date / Time acetaminophen [From TYLENOL] Allergy Intermediate HIVES Verified 08/28/22 09:48 meperidine [From Demerol] Allergy Unknown Verified 08/28/22 09:48 Assessment & Plan Assessment & Plan (1) Schizoaffective disorder: Qualifiers: Schizoaffective disorder type: bipolar Qualified Code(s): F25.0 - Schizoaffective disorder, bipolar type Status: Acute Code(s): F25.9 - Schizoaffective disorder, unspecified Assessment and Plan: Presents with decompensation of schizoaffective disorder, while in group living environment. Not adherence appears to be a factor. Patient not engaging with interview, evaluation or adherent with medications ie declining same. Unable to care for self. Being held on a Section 12 that will on 07/02/23. In the meantime will try and establish report and encourage medication adherence. Plan 06/29: encourage med adherence. 07/01/23: Ensure tid Will file Section VII on 07/02/23. 07/02/23: HCP activated today. Martine Elder is willing to serve in this role. [phone]. 07/03/23: Encourage treatment compliance 07/04/23 Encourage treatment compliance, begin process of validating HCP with the courts in order to provide pt with psychopharmacology options. 07/05/23 Encourage treatment. 07/07 remains disorganized in speech and behavior; refusing meds, paranoid -continue process of affirming HCP 07/08- Continue current plan. 07/09 continue current treatment plan 07/11/23 continue current treatment plan 07/12: Continue current regimen and plans 07/13: Continue current regimen and plans 07/14: Continue current plans and regimen 07/15/23: Continue current tx. Initiate regime 07/16. 07/17/23: Continue to encourage treatment. 07/18/23: Add prn Zyprexa IM if she refuses HS dosing 07/19: Continue current management and treatment plan. 07/20: Continue current management and treatment plan. 07/22: Continue tx. 07/23: Continue tx 07/24: Encourage milieu participation 07/26/23 continues too labile to interact with others- 07/27/23 - CTP encourage treatment 07/27/22 Continue tx plan; encourge meds as approved by HCP and court 07/29/23 schedule olanzepine discontinued after on hold for several days; awaiting invega sustenna to alleviate some of the psychosis in hopes patient more engageable and able to participate in her treatment; PO meds still ordered and should be offered with statement that they are court ordered and approved by HCP. 07/30/23 pt showing slight improvement- continue treatment plan 07/31/23 continue tx plan 08/01/23 continue tx plan 08/01 -Intermittently angry and irritable. Said hello to commercial real estate underwriter but then when commercial real estate underwriter asked how she was doing said none of your business. -Made swiping motion as if to scratch towards several staff, saying it was a curse -Yelled at peer today due to disorganized thought that person should not be in group room; yell that another peer who was going into the community refrigerator since patient thinks that the refrigerator is her property; able to be redirected 08/02 screamed at commercial real estate underwriter and refused to enage. 08/03 staff agree Patient seems to be increasingly disorganized, walking briskly down the calle and yelling at peers, staff, making angry accusatory remarks and frightening and provoking some patients, causing some patients to become angry response. Will not engage with commercial real estate underwriter. -patient on Invega Sustenna however behaviors are problematic, upsetting and sometimes scary to both peers and staff. Patient psychotic illness has gone untreated for quite some time and it seems likely she will need p.o. to overlap long-acting medication. Business Process Consultant reached out to patient's healthcare proxy Brit Elder and left message to discuss treatment 08/06/23- Continue tx. Pt today able to reach out and initiate discussion. Benztropine 1 mg tid prn EPS 08/07/23- Continue tx. 08/12/23: Diagnostics 08/13/23. 08/16: continue current management and treatment plan. 08/23/23 improving adls and med compliance- but picks and chooses who she will interact with 08/26/23- Continue tx- attempt diagnostics again this week. 08/29/23- Continue to attempt to get pt involved in discharge planning and daily routine expectations. 08/31/23- Continue to attempt education regarding intrusive behaviors, reality testing 09/01/23- Depakote ER 500 mg HS Increase Olanzapine 20 mg bid 09/03/23: CBCD, CMP, A1c, Lipids, TSH 09/03 for first time, pt pleasant, cooperative with commercial real estate underwriter. c/o of some body aches but says ibuprofin helping. Has been asking nursing for discharge and responding angrily, saying she owns the hospital when request (for dc) not granted. 09/04 continue tx 09/05 continue tx 09/06 continue tx 09/12/23 Continue plan of care 09/12 Patient pleasant today; friendly with commercial real estate underwriter. No complaints, walking up and down the calle singing to herself. When commercial real estate underwriter was talking to another peer that she knows from the community, patient came up and encouraged this peer who was having a hard time. 09/13 remains much more pleasant and approachable, calm. dry skin vs psoriasis patches on face; will order lotion 09/14- Continue current regime and plan of care. 09/16- Residential team meeting 09/18/23. 09/18/23- Continue treatment 09/19/23- Continue treatment 09/20: continue current management and treatment plan. 09/26/23: Continue treatment 09/27/2023: No changes 09/28/23: no changes- pt would like team to consider lowering olanzapine dose 09/29/23: Decrease Olanzapine to 10 mg bid 09/30/23: Continue current regime 10/02/23: Discharge planning for 10/09/23. 10/03/23: Continue current regime. 10/04/23 CTP pending dc 10/05/23 CTP- may need to address hyerglycemia Patient educated on: medical condition Informed Consent: further education needed Reason for continued inpatient stay Substantial Risk for: rapid decompensation and med/psych decompensation Time Spent With Patient Time: Total time managing care of this patient today ____ minutes.
[2023-10-06] MEDS: OLANZapine ODT 10 MG TAB.RAPDIS TRANSLINGU ×2 (08:53→21:44)
--- NOTE | 2023-10-06 10:20 | HO.PSYCHPN ---
Subjective Subjective Date of Service: 10/06/23 Reason For Visit: Schizoaffective disorder Subjective Notes: Conditional Voluntary Healthcare Proxy: Yes Guardianship: No Medical Problems Affecting Mental Status: No Interim History: Sivan reports feeling excited for discharge on 10/08. She reports she will be attending their camp in [place] with her peers. Reports feeling well, denies sx of concern. I am very happy Medication Compliance: Yes Side effects from medications: No Attending Groups: No Review of Systems Acute medical concerns: No Medical Review of Systems: unchanged Review of Systems Review of Systems Yes all other systems are reviewed and are negative Mental Status Exam Mental Status Exam Patient Appearance: Well Grooomed Patient Orientation: Person, Place, Time and Situation Level of Consciousness: Awake (but lying in bed) Patient Behavior: Passive Mood Description: Calm Affect Description: Blunted Patient Cognition Impaired: No Ability to Follow Directions: Fair Speech Pattern: Clear and Impoverished Thought Process: Intact Thought Content: positive for Poverty of Content Judgement: Fair Diagnostics Vital Signs (24Hr): BMI result Body Mass Index 37.7 Labs 09/26/23 14:40 09/26/23 14:40 Medications Medications Current Medications Al Hydroxide/Mg Hydroxide (Magnesium Hydrox/Alum Hydrox 30 Ml Oral.Susp) 30 ml PO Q6H PRN PRN Reason: Heartburn/Nausea Albuterol Sulfate (Albuterol Sulfate 90 Mcg 8 Gm Inhaler) 2 puff INHALE Q4H PRN PRN Reason: Wheezing Benztropine Mesylate (Benztropine Mesylate 1 Mg Tablet) 1 mg PO TID PRN PRN Reason: Extrapyramidal Effects Hydroxyzine HCl (Hydroxyzine Hcl 25 Mg Tablet) 25 mg PO Q6H PRN PRN Reason: Anxiety Ibuprofen (Ibuprofen 600 Mg Tablet) 600 mg PO Q4H PRN PRN Reason: moderate to severe pain Last Admin: 10/05/23 08:53 Dose: 600 mg Lorazepam (Lorazepam 0.5 Mg Tablet) 0.5 mg PO BID [facility] Last Admin: 10/06/23 08:56 Dose: Not Given Magnesium Hydroxide (Milk Of Magnesia 30 Ml Oral.Susp) 30 ml PO DAILY PRN PRN Reason: Constipation Metronidazole (Metronidazole 0.75 % Gel 45 Gm Tube) 1 appl TOPICAL DAILY [facility] Last Admin: 10/06/23 08:56 Dose: Not Given Multi-Ingred Cream/Lotion/Oil/Oint (Mineral Oil/Petrolatum,White 106 Gm Tube) 1 appl TOPICAL BID [facility]; Protocol Last Admin: 10/06/23 08:56 Dose: Not Given Multivitamins/Vitamin C (Multivitamin Tablet) 1 tab PO DAILY [facility] Last Admin: 10/06/23 08:56 Dose: Not Given Olanzapine (Olanzapine Odt 10 Mg Tab.Rapdis) 10 mg TRANSLINGU DAILY PRN PRN Reason: Psychosis Last Admin: 08/04/23 17:34 Dose: 10 mg Olanzapine (Olanzapine 10 Mg Vial) 10 mg IM BID PRN PRN Reason: if refuses PO Zydis Last Admin: 08/13/23 09:17 Dose: 10 mg Olanzapine (Olanzapine Odt 10 Mg Tab.Rapdis) 10 mg TRANSLINGU BID [facility] Last Admin: 10/06/23 08:53 Dose: 10 mg Paliperidone Palmitate (Paliperidone Palmitate 234 Mg/1.5 Ml Syringe) 234 mg IM Q30D [facility] Last Admin: 09/25/23 13:38 Dose: 234 mg Trazodone HCl (Trazodone Hcl 50 Mg Tablet) 50 mg PO BEDTIME MRX1 PRN PRN Reason: Insomnia Vitamin D (Cholecalciferol (Vitamin D3) 10 Mcg Tablet) 10 mcg PO DAILY [facility] Last Admin: 10/06/23 08:56 Dose: Not Given Allergies Allergies Allergy/AdvReac Type Severity Reaction Status Date / Time acetaminophen [From TYLENOL] Allergy Intermediate HIVES Verified 08/28/22 09:48 meperidine [From Demerol] Allergy Unknown Verified 08/28/22 09:48 Assessment & Plan Assessment & Plan (1) Schizoaffective disorder: Qualifiers: Schizoaffective disorder type: bipolar Qualified Code(s): F25.0 - Schizoaffective disorder, bipolar type Status: Acute Code(s): F25.9 - Schizoaffective disorder, unspecified Assessment and Plan: Presents with decompensation of schizoaffective disorder, while in group living environment. Not adherence appears to be a factor. Patient not engaging with interview, evaluation or adherent with medications ie declining same. Unable to care for self. Being held on a Section 12 that will on 07/02/23. In the meantime will try and establish report and encourage medication adherence. Plan 06/29: encourage med adherence. 07/01/23: Ensure tid Will file Section VII on 07/02/23. 07/02/23: HCP activated today. Martine Elder is willing to serve in this role. [phone]. 07/03/23: Encourage treatment compliance 07/04/23 Encourage treatment compliance, begin process of validating HCP with the courts in order to provide pt with psychopharmacology options. 07/05/23 Encourage treatment. 07/07 remains disorganized in speech and behavior; refusing meds, paranoid -continue process of affirming HCP 07/08- Continue current plan. 07/09 continue current treatment plan 07/11/23 continue current treatment plan 07/12: Continue current regimen and plans 07/13: Continue current regimen and plans 07/14: Continue current plans and regimen 07/15/23: Continue current tx. Initiate regime 07/16. 07/17/23: Continue to encourage treatment. 07/18/23: Add prn Zyprexa IM if she refuses HS dosing 07/19: Continue current management and treatment plan. 07/20: Continue current management and treatment plan. 07/22: Continue tx. 07/23: Continue tx 07/24: Encourage milieu participation 07/26/23 continues too labile to interact with others- 07/27/23 - CTP encourage treatment 07/27/22 Continue tx plan; encourge meds as approved by HCP and court 07/29/23 schedule olanzepine discontinued after on hold for several days; awaiting invega sustenna to alleviate some of the psychosis in hopes patient more engageable and able to participate in her treatment; PO meds still ordered and should be offered with statement that they are court ordered and approved by HCP. 07/30/23 pt showing slight improvement- continue treatment plan 07/31/23 continue tx plan 08/01/23 continue tx plan 08/01 -Intermittently angry and irritable. Said hello to publications writer but then when publications writer asked how she was doing said none of your business. -Made swiping motion as if to scratch towards several staff, saying it was a curse -Yelled at peer today due to disorganized thought that person should not be in group room; yell that another peer who was going into the community refrigerator since patient thinks that the refrigerator is her property; able to be redirected 08/02 screamed at publications writer and refused to enage. 08/03 staff agree Patient seems to be increasingly disorganized, walking briskly down the calle and yelling at peers, staff, making angry accusatory remarks and frightening and provoking some patients, causing some patients to become angry response. Will not engage with publications writer. -patient on Invega Sustenna however behaviors are problematic, upsetting and sometimes scary to both peers and staff. Patient psychotic illness has gone untreated for quite some time and it seems likely she will need p.o. to overlap long-acting medication. Rubber Splicer reached out to patient's healthcare proxy Brit Elder and left message to discuss treatment 08/06/23- Continue tx. Pt today able to reach out and initiate discussion. Benztropine 1 mg tid prn EPS 08/07/23- Continue tx. 08/12/23: Diagnostics 08/13/23. 08/16: continue current management and treatment plan. 08/23/23 improving adls and med compliance- but picks and chooses who she will interact with 08/26/23- Continue tx- attempt diagnostics again this week. 08/29/23- Continue to attempt to get pt involved in discharge planning and daily routine expectations. 08/31/23- Continue to attempt education regarding intrusive behaviors, reality testing 09/01/23- Depakote ER 500 mg HS Increase Olanzapine 20 mg bid 09/03/23: CBCD, CMP, A1c, Lipids, TSH 09/03 for first time, pt pleasant, cooperative with publications writer. c/o of some body aches but says ibuprofin helping. Has been asking nursing for discharge and responding angrily, saying she owns the hospital when request (for dc) not granted. 09/04 continue tx 09/05 continue tx 09/06 continue tx 09/12/23 Continue plan of care 09/12 Patient pleasant today; friendly with publications writer. No complaints, walking up and down the calle singing to herself. When publications writer was talking to another peer that she knows from the community, patient came up and encouraged this peer who was having a hard time. 09/13 remains much more pleasant and approachable, calm. dry skin vs psoriasis patches on face; will order lotion 09/14- Continue current regime and plan of care. 09/16- Residential team meeting 09/18/23. 09/18/23- Continue treatment 09/19/23- Continue treatment 09/20: continue current management and treatment plan. 09/26/23: Continue treatment 09/27/2023: No changes 09/28/23: no changes- pt would like team to consider lowering olanzapine dose 09/29/23: Decrease Olanzapine to 10 mg bid 09/30/23: Continue current regime 10/02/23: Discharge planning for 10/09/23. 10/03/23: Continue current regime. 10/04/23 CTP pending dc 10/05/23 CTP- may need to address hyerglycemia 10/06/23 Continue plan. By history, when blood sugars have been discussed and treatment offered, pt declines. Reason for continued inpatient stay Substantial Risk for: rapid decompensation Time Spent With Patient Time: Total time managing care of this patient today ____ minutes.
[2023-10-06] MEDS: Ibuprofen 600 MG TABLET PO (21:45)
[2023-10-07 08:00] VITALS: RESP 18
[2023-10-07] MEDS: OLANZapine ODT 10 MG TAB.RAPDIS TRANSLINGU ×2 (09:24→21:21)
[2023-10-07] MEDS: Ibuprofen 600 MG TABLET PO ×2 (09:24→21:20)
--- NOTE | 2023-10-07 09:54 | P.PNPSI_ITS ---
Subjective Subjective Date of Service: 10/07/23 Reason For Visit: Schizoaffective disorder Subjective Notes: Conditional Voluntary Healthcare Proxy: Yes Guardianship: No Medical Problems Affecting Mental Status: No Interim History: Message left with pt's HCP to discuss discharge planning and to review meds/labs. Pt reports she is feeling well and is excited for her return home. She is visable in the milieu, walking, engaging with team and some peers-offers her support to others. Medication Compliance: Yes Side effects from medications: No Attending Groups: Intermittent Review of Systems Acute medical concerns: No Medical Review of Systems: unchanged Review of Systems Review of Systems Yes all other systems are reviewed and are negative Mental Status Exam Mental Status Exam Patient Appearance: Well Grooomed Patient Orientation: Person, Place, Time and Situation Level of Consciousness: Awake Patient Behavior: Passive and Good Eye Contact Mood Description: Calm Affect Description: Cheerful Patient Cognition Impaired: No Ability to Follow Directions: Fair Speech Pattern: Clear Thought Process: Intact Judgement: Good Diagnostics Vital Signs (24Hr): Vital Signs - 24 hr 10/07/23 08:00 Respiratory Rate 18 BMI result Body Mass Index 37.7 Labs 09/26/23 14:40 09/26/23 14:40 Medications Medications Current Medications Al Hydroxide/Mg Hydroxide (Magnesium Hydrox/Alum Hydrox 30 Ml Oral.Susp) 30 ml PO Q6H PRN PRN Reason: Heartburn/Nausea Albuterol Sulfate (Albuterol Sulfate 90 Mcg 8 Gm Inhaler) 2 puff INHALE Q4H PRN PRN Reason: Wheezing Benztropine Mesylate (Benztropine Mesylate 1 Mg Tablet) 1 mg PO TID PRN PRN Reason: Extrapyramidal Effects Hydroxyzine HCl (Hydroxyzine Hcl 25 Mg Tablet) 25 mg PO Q6H PRN PRN Reason: Anxiety Ibuprofen (Ibuprofen 600 Mg Tablet) 600 mg PO Q4H PRN PRN Reason: moderate to severe pain Last Admin: 10/07/23 09:24 Dose: 600 mg Lorazepam (Lorazepam 0.5 Mg Tablet) 0.5 mg PO BID [facility] Last Admin: 10/07/23 09:39 Dose: Not Given Magnesium Hydroxide (Milk Of Magnesia 30 Ml Oral.Susp) 30 ml PO DAILY PRN PRN Reason: Constipation Metronidazole (Metronidazole 0.75 % Gel 45 Gm Tube) 1 appl TOPICAL DAILY [facility] Last Admin: 10/07/23 09:39 Dose: Not Given Multi-Ingred Cream/Lotion/Oil/Oint (Mineral Oil/Petrolatum,White 106 Gm Tube) 1 appl TOPICAL BID [facility]; Protocol Last Admin: 10/07/23 09:39 Dose: Not Given Multivitamins/Vitamin C (Multivitamin Tablet) 1 tab PO DAILY [facility] Last Admin: 10/07/23 09:39 Dose: Not Given Olanzapine (Olanzapine Odt 10 Mg Tab.Rapdis) 10 mg TRANSLINGU DAILY PRN PRN Reason: Psychosis Last Admin: 08/04/23 17:34 Dose: 10 mg Olanzapine (Olanzapine 10 Mg Vial) 10 mg IM BID PRN PRN Reason: if refuses PO Zydis Last Admin: 08/13/23 09:17 Dose: 10 mg Olanzapine (Olanzapine Odt 10 Mg Tab.Rapdis) 10 mg TRANSLINGU BID [facility] Last Admin: 10/07/23 09:24 Dose: 10 mg Paliperidone Palmitate (Paliperidone Palmitate 234 Mg/1.5 Ml Syringe) 234 mg IM Q30D [facility] Last Admin: 09/25/23 13:38 Dose: 234 mg Trazodone HCl (Trazodone Hcl 50 Mg Tablet) 50 mg PO BEDTIME MRX1 PRN PRN Reason: Insomnia Vitamin D (Cholecalciferol (Vitamin D3) 10 Mcg Tablet) 10 mcg PO DAILY [facility] Last Admin: 10/07/23 09:39 Dose: Not Given Allergies Allergies Allergy/AdvReac Type Severity Reaction Status Date / Time acetaminophen [From TYLENOL] Allergy Intermediate HIVES Verified 08/28/22 09:48 meperidine [From Demerol] Allergy Unknown Verified 08/28/22 09:48 Assessment & Plan Assessment & Plan (1) Schizoaffective disorder: Qualifiers: Schizoaffective disorder type: bipolar Qualified Code(s): F25.0 - Schizoaffective disorder, bipolar type Status: Acute Code(s): F25.9 - Schizoaffective disorder, unspecified Assessment and Plan: Presents with decompensation of schizoaffective disorder, while in group living environment. Not adherence appears to be a factor. Patient not engaging with interview, evaluation or adherent with medications ie declining same. Unable to care for self. Being held on a Section 12 that will on 07/02/23. In the meantime will try and establish report and encourage medication adherence. Plan 06/29: encourage med adherence. 07/01/23: Ensure tid Will file Section VII on 07/02/23. 07/02/23: HCP activated today. Martine Elder is willing to serve in this role. [phone]. 07/03/23: Encourage treatment compliance 07/04/23 Encourage treatment compliance, begin process of validating HCP with the courts in order to provide pt with psychopharmacology options. 07/05/23 Encourage treatment. 07/07 remains disorganized in speech and behavior; refusing meds, paranoid -continue process of affirming HCP 07/08- Continue current plan. 07/09 continue current treatment plan 07/11/23 continue current treatment plan 07/12: Continue current regimen and plans 07/13: Continue current regimen and plans 07/14: Continue current plans and regimen 07/15/23: Continue current tx. Initiate regime 07/16. 07/17/23: Continue to encourage treatment. 07/18/23: Add prn Zyprexa IM if she refuses HS dosing 07/19: Continue current management and treatment plan. 07/20: Continue current management and treatment plan. 07/22: Continue tx. 07/23: Continue tx 07/24: Encourage milieu participation 07/26/23 continues too labile to interact with others- 07/27/23 - CTP encourage treatment 07/27/22 Continue tx plan; encourge meds as approved by HCP and court 07/29/23 schedule olanzepine discontinued after on hold for several days; awaiting invega sustenna to alleviate some of the psychosis in hopes patient more engageable and able to participate in her treatment; PO meds still ordered and should be offered with statement that they are court ordered and approved by HCP. 07/30/23 pt showing slight improvement- continue treatment plan 07/31/23 continue tx plan 08/01/23 continue tx plan 08/01 -Intermittently angry and irritable. Said hello to junior technical writer but then when junior technical writer asked how she was doing said none of your business. -Made swiping motion as if to scratch towards several staff, saying it was a curse -Yelled at peer today due to disorganized thought that person should not be in group room; yell that another peer who was going into the community refrigerator since patient thinks that the refrigerator is her property; able to be redirected 08/02 screamed at junior technical writer and refused to enage. 08/03 staff agree Patient seems to be increasingly disorganized, walking briskly down the calle and yelling at peers, staff, making angry accusatory remarks and frightening and provoking some patients, causing some patients to become angry response. Will not engage with junior technical writer. -patient on Invega Sustenna however behaviors are problematic, upsetting and sometimes scary to both peers and staff. Patient psychotic illness has gone untreated for quite some time and it seems likely she will need p.o. to overlap long-acting medication. Razor Grinder reached out to patient's healthcare proxy Brit Elder and left message to discuss treatment 08/06/23- Continue tx. Pt today able to reach out and initiate discussion. Benztropine 1 mg tid prn EPS 08/07/23- Continue tx. 08/12/23: Diagnostics 08/13/23. 08/16: continue current management and treatment plan. 08/23/23 improving adls and med compliance- but picks and chooses who she will interact with 08/26/23- Continue tx- attempt diagnostics again this week. 08/29/23- Continue to attempt to get pt involved in discharge planning and daily routine expectations. 08/31/23- Continue to attempt education regarding intrusive behaviors, reality testing 09/01/23- Depakote ER 500 mg HS Increase Olanzapine 20 mg bid 09/03/23: CBCD, CMP, A1c, Lipids, TSH 09/03 for first time, pt pleasant, cooperative with junior technical writer. c/o of some body aches but says ibuprofin helping. Has been asking nursing for discharge and responding angrily, saying she owns the hospital when request (for dc) not granted. 09/04 continue tx 09/05 continue tx 09/06 continue tx 09/12/23 Continue plan of care 09/12 Patient pleasant today; friendly with junior technical writer. No complaints, walking up and down the calle singing to herself. When junior technical writer was talking to another peer that she knows from the community, patient came up and encouraged this peer who was having a hard time. 09/13 remains much more pleasant and approachable, calm. dry skin vs psoriasis patches on face; will order lotion 09/14- Continue current regime and plan of care. 09/16- Residential team meeting 09/18/23. 09/18/23- Continue treatment 09/19/23- Continue treatment 09/20: continue current management and treatment plan. 09/26/23: Continue treatment 09/27/2023: No changes 09/28/23: no changes- pt would like team to consider lowering olanzapine dose 09/29/23: Decrease Olanzapine to 10 mg bid 09/30/23: Continue current regime 10/02/23: Discharge planning for 10/09/23. 10/03/23: Continue current regime. 10/04/23 CTP pending dc 10/05/23 CTP- may need to address hyerglycemia 10/06/23 Continue plan. By history, when blood sugars have been discussed and treatment offered, pt declines. 10/07/23: Message left for HCP to review DC plan, meds, diagnostics. DC 10/08. Reason for continued inpatient stay Substantial Risk for: stable for discharge Time Spent With Patient Time: Total time managing care of this patient today ____ minutes.
[2023-10-07 20:00] VITALS: BP 112/70; PULSE 90; TEMP 36.5; O2SAT 95
[2023-10-08 08:00] VITALS: BP 110/63; PULSE 107; RESP 18; TEMP 36.7; O2SAT 99
[2023-10-08] MEDS: Ibuprofen 600 MG TABLET PO ×2 (08:13→21:37)
[2023-10-08] MEDS: OLANZapine ODT 10 MG TAB.RAPDIS TRANSLINGU ×2 (08:14→21:38)
--- NOTE | 2023-10-08 11:57 | HO.PSYCHPN ---
Subjective Subjective Date of Service: 10/08/23 Reason For Visit: Schizoaffective disorder Subjective Notes: Conditional Voluntary Healthcare Proxy: Yes Guardianship: No Medical Problems Affecting Mental Status: No Interim History: Met with pt and HCP, Martine Elder. Pt is excited to return home, with several plans. Wants to work, and get paid Review of meds, labs, progress. Pt clear in what she will and will not take. I will never miss my shot again, I promise . Pt identified concerns with her residence and [facility] in regards to peers/team members whom she has difficulty with. Medication Compliance: Yes Side effects from medications: No Attending Groups: Intermittent Review of Systems Acute medical concerns: No Medical Review of Systems: unchanged Review of Systems Review of Systems Yes all other systems are reviewed and are negative Mental Status Exam Mental Status Exam Patient Appearance: Well Grooomed Patient Orientation: Person, Place, Time and Situation Level of Consciousness: Awake Patient Behavior: Passive and Good Eye Contact Mood Description: Calm Affect Description: Cheerful Patient Cognition Impaired: No Ability to Follow Directions: Fair Speech Pattern: Clear Thought Process: Intact Judgement: Good Diagnostics Vital Signs (24Hr): Vital Signs - 24 hr 10/07/23 20:00 10/08/23 08:00 Temperature 97.7 F 98.0 F Pulse Rate 90 107 H Respiratory Rate 18 Blood Pressure 112/70 110/63 Pulse Oximetry 95 99 Oxygen Delivery Method Room Air Room Air BMI result Body Mass Index 37.7 Labs 09/26/23 14:40 09/26/23 14:40 Medications Medications Current Medications Al Hydroxide/Mg Hydroxide (Magnesium Hydrox/Alum Hydrox 30 Ml Oral.Susp) 30 ml PO Q6H PRN PRN Reason: Heartburn/Nausea Albuterol Sulfate (Albuterol Sulfate 90 Mcg 8 Gm Inhaler) 2 puff INHALE Q4H PRN PRN Reason: Wheezing Benztropine Mesylate (Benztropine Mesylate 1 Mg Tablet) 1 mg PO TID PRN PRN Reason: Extrapyramidal Effects Hydroxyzine HCl (Hydroxyzine Hcl 25 Mg Tablet) 25 mg PO Q6H PRN PRN Reason: Anxiety Ibuprofen (Ibuprofen 600 Mg Tablet) 600 mg PO Q4H PRN PRN Reason: moderate to severe pain Last Admin: 10/08/23 08:13 Dose: 600 mg Lorazepam (Lorazepam 0.5 Mg Tablet) 0.5 mg PO BID [facility] Last Admin: 10/08/23 08:40 Dose: Not Given Magnesium Hydroxide (Milk Of Magnesia 30 Ml Oral.Susp) 30 ml PO DAILY PRN PRN Reason: Constipation Metronidazole (Metronidazole 0.75 % Gel 45 Gm Tube) 1 appl TOPICAL DAILY [facility] Last Admin: 10/08/23 08:40 Dose: Not Given Multi-Ingred Cream/Lotion/Oil/Oint (Mineral Oil/Petrolatum,White 106 Gm Tube) 1 appl TOPICAL BID [facility]; Protocol Last Admin: 10/08/23 08:40 Dose: Not Given Multivitamins/Vitamin C (Multivitamin Tablet) 1 tab PO DAILY [facility] Last Admin: 10/08/23 08:40 Dose: Not Given Olanzapine (Olanzapine Odt 10 Mg Tab.Rapdis) 10 mg TRANSLINGU DAILY PRN PRN Reason: Psychosis Last Admin: 08/04/23 17:34 Dose: 10 mg Olanzapine (Olanzapine 10 Mg Vial) 10 mg IM BID PRN PRN Reason: if refuses PO Zydis Last Admin: 08/13/23 09:17 Dose: 10 mg Olanzapine (Olanzapine Odt 10 Mg Tab.Rapdis) 10 mg TRANSLINGU BID [facility] Last Admin: 10/08/23 08:14 Dose: 10 mg Paliperidone Palmitate (Paliperidone Palmitate 234 Mg/1.5 Ml Syringe) 234 mg IM Q30D [facility] Last Admin: 09/25/23 13:38 Dose: 234 mg Trazodone HCl (Trazodone Hcl 50 Mg Tablet) 50 mg PO BEDTIME MRX1 PRN PRN Reason: Insomnia Vitamin D (Cholecalciferol (Vitamin D3) 10 Mcg Tablet) 10 mcg PO DAILY [facility] Last Admin: 10/08/23 08:40 Dose: Not Given Allergies Allergies Allergy/AdvReac Type Severity Reaction Status Date / Time acetaminophen [From TYLENOL] Allergy Intermediate HIVES Verified 08/28/22 09:48 meperidine [From Demerol] Allergy Unknown Verified 08/28/22 09:48 Assessment & Plan Assessment & Plan (1) Schizoaffective disorder: Qualifiers: Schizoaffective disorder type: bipolar Qualified Code(s): F25.0 - Schizoaffective disorder, bipolar type Status: Acute Code(s): F25.9 - Schizoaffective disorder, unspecified Assessment and Plan: Presents with decompensation of schizoaffective disorder, while in group living environment. Not adherence appears to be a factor. Patient not engaging with interview, evaluation or adherent with medications ie declining same. Unable to care for self. Being held on a Section 12 that will on 07/02/23. In the meantime will try and establish report and encourage medication adherence. Plan 06/29: encourage med adherence. 07/01/23: Ensure tid Will file Section VII on 07/02/23. 07/02/23: HCP activated today. Martine Elder is willing to serve in this role. [phone]. 07/03/23: Encourage treatment compliance 07/04/23 Encourage treatment compliance, begin process of validating HCP with the courts in order to provide pt with psychopharmacology options. 07/05/23 Encourage treatment. 07/07 remains disorganized in speech and behavior; refusing meds, paranoid -continue process of affirming HCP 07/08- Continue current plan. 07/09 continue current treatment plan 07/11/23 continue current treatment plan 07/12: Continue current regimen and plans 07/13: Continue current regimen and plans 07/14: Continue current plans and regimen 07/15/23: Continue current tx. Initiate regime 07/16. 07/17/23: Continue to encourage treatment. 07/18/23: Add prn Zyprexa IM if she refuses HS dosing 07/19: Continue current management and treatment plan. 07/20: Continue current management and treatment plan. 07/22: Continue tx. 07/23: Continue tx 07/24: Encourage milieu participation 07/26/23 continues too labile to interact with others- 07/27/23 - CTP encourage treatment 07/27/22 Continue tx plan; encourge meds as approved by HCP and court 07/29/23 schedule olanzepine discontinued after on hold for several days; awaiting invega sustenna to alleviate some of the psychosis in hopes patient more engageable and able to participate in her treatment; PO meds still ordered and should be offered with statement that they are court ordered and approved by HCP. 07/30/23 pt showing slight improvement- continue treatment plan 07/31/23 continue tx plan 08/01/23 continue tx plan 08/01 -Intermittently angry and irritable. Said hello to internal communications writer but then when internal communications writer asked how she was doing said none of your business. -Made swiping motion as if to scratch towards several staff, saying it was a curse -Yelled at peer today due to disorganized thought that person should not be in group room; yell that another peer who was going into the community refrigerator since patient thinks that the refrigerator is her property; able to be redirected 08/02 screamed at internal communications writer and refused to enage. 08/03 staff agree Patient seems to be increasingly disorganized, walking briskly down the calle and yelling at peers, staff, making angry accusatory remarks and frightening and provoking some patients, causing some patients to become angry response. Will not engage with internal communications writer. -patient on Invega Sustenna however behaviors are problematic, upsetting and sometimes scary to both peers and staff. Patient psychotic illness has gone untreated for quite some time and it seems likely she will need p.o. to overlap long-acting medication. Wiring Inspector reached out to patient's healthcare proxy Brit Elder and left message to discuss treatment 08/06/23- Continue tx. Pt today able to reach out and initiate discussion. Benztropine 1 mg tid prn EPS 08/07/23- Continue tx. 08/12/23: Diagnostics 08/13/23. 08/16: continue current management and treatment plan. 08/23/23 improving adls and med compliance- but picks and chooses who she will interact with 08/26/23- Continue tx- attempt diagnostics again this week. 08/29/23- Continue to attempt to get pt involved in discharge planning and daily routine expectations. 08/31/23- Continue to attempt education regarding intrusive behaviors, reality testing 09/01/23- Depakote ER 500 mg HS Increase Olanzapine 20 mg bid 09/03/23: CBCD, CMP, A1c, Lipids, TSH 09/03 for first time, pt pleasant, cooperative with internal communications writer. c/o of some body aches but says ibuprofin helping. Has been asking nursing for discharge and responding angrily, saying she owns the hospital when request (for dc) not granted. 09/04 continue tx 09/05 continue tx 09/06 continue tx 09/12/23 Continue plan of care 09/12 Patient pleasant today; friendly with internal communications writer. No complaints, walking up and down the calle singing to herself. When internal communications writer was talking to another peer that she knows from the community, patient came up and encouraged this peer who was having a hard time. 09/13 remains much more pleasant and approachable, calm. dry skin vs psoriasis patches on face; will order lotion 09/14- Continue current regime and plan of care. 09/16- Residential team meeting 09/18/23. 09/18/23- Continue treatment 09/19/23- Continue treatment 09/20: continue current management and treatment plan. 09/26/23: Continue treatment 09/27/2023: No changes 09/28/23: no changes- pt would like team to consider lowering olanzapine dose 09/29/23: Decrease Olanzapine to 10 mg bid 09/30/23: Continue current regime 10/02/23: Discharge planning for 10/09/23. 10/03/23: Continue current regime. 10/04/23 CTP pending dc 10/05/23 CTP- may need to address hyerglycemia 10/06/23 Continue plan. By history, when blood sugars have been discussed and treatment offered, pt declines. 10/08/23: Discharge 10/08. Reason for continued inpatient stay Substantial Risk for: stable for discharge Time Spent With Patient Time: Total time managing care of this patient today ____ minutes.
[2023-10-08 20:00] VITALS: BP 141/77; PULSE 98; TEMP 36.3; O2SAT 96
[2023-10-09 07:00] VITALS: BMI 38.9
[2023-10-09] MEDS: Ibuprofen 600 MG TABLET PO (07:08)
[2023-10-09 07:30] VITALS: BP 136/77; PULSE 82; RESP 15; TEMP 36.7; O2SAT 96
[2023-10-09] MEDS: OLANZapine ODT 10 MG TAB.RAPDIS TRANSLINGU (08:40)
--- NOTE | 2023-10-09 11:58 | PM.PSYDC ---
DS: Providers Provider Date of Service: 10/09/23 Date of admission: 06/27/23 12:48 Date of discharge: 10/09/23 Primary care physician: Gena Paul MD Admitting clinician: Carolin Reyes Attending physician on admission: Reggie Elder Attending physician on discharge: Reggie Elder Discharging clinician: Carolin Reyes DS: Diagnosis Discharge Diagnosis (1) Schizoaffective disorder: Status: Acute DS: Medications Discharge Medications Home Medications: Previous Rx's ?Medication ?Instructions ?Recorded Multi-Vitamin W/Extra C 1 tab PO DAILY #30 tabs 10/08/23 albuterol sulfate 90 mcg/actuation 2 puff inhalation DIRECTED PRN 10/08/23 aerosol inhaler (Ventolin HFA) Wheezing #1 inhaler benztropine 1 mg tablet 1 mg PO TID PRN Extrapyramidal 10/08/23 Effects #90 tabs cholecalciferol (vitamin D3) 10 10 mcg PO DAILY #30 tabs 10/08/23 mcg (400 unit) tablet (Vitamin D3) ibuprofen 600 mg tablet 600 mg PO Q4H PRN moderate to 10/08/23 severe pain #60 tabs lorazepam 0.5 mg tablet 0.5 mg PO BID PRN anxiety #60 tabs 10/08/23 metformin 500 mg tablet 500 mg PO BID #60 tabs 10/08/23 metronidazole 0.75 % topical gel 1 appl topical DAILY #1 units 10/08/23 multivitamin (Daily Multi-Vitamin 1 tab PO DAILY #30 tabs 10/08/23 tablet) olanzapine 10 mg disintegrating 10 mg translingual BID #60 tabs 10/08/23 tablet paliperidone palmitate 234 mg/1.5 234 mg (1.5 mL) IM Q30D #1.5 mL 10/08/23 mL intramuscular syringe (Invega Sustenna) white petrolatum-mineral oil 1 appl topical BID #1 units 10/08/23 topical cream (Dermacerin topical cream) Mental Status Exam Mental Status Exam Patient Appearance: Well Grooomed Patient Orientation: Person, Place, Time and Situation Level of Consciousness: Awake Patient Behavior: Passive and Good Eye Contact Mood Description: Calm Affect Description: Cheerful Patient Cognition Impaired: No Ability to Follow Directions: Fair Speech Pattern: Clear Thought Process: Intact Judgement: Good DS: Summary Hospital Course Hospital Course: Admission to adult psychiatry for exacerbation of schizoaffective disorder with severe decompensation after being off medications for approximately seven months. Pt admitted with severe psychosis. Pt's HCP was activated and affirmed by the court. Medications were re-started, included a previous INFANTE, Invega Sustenna, which by history had significant positive effect. Pt required several months to recompensate and was able to clear her thought process. She will return to her half-way and out patient team with [facility]. Time spent discussing smoking cessation with patient: 3 to 10 minutes Status at Discharge Functional status at discharge: independent ambulation Overall status at discharge: patient is back to baseline Time Spent with Patient Time attestation: Total time managing care of this patient today ____ minutes. Time spent: Less than 30 minutes Discharge Plan Discharge Anticipated Discharge Date/Time: 10/09/23 12:00 Patient Disposition: Home, Self-Care Discharge Diagnosis: Schizoaffective Disorder Referrals: [facility] Psychiatry santos Ramos [Other] - 11/10/23 9:20 am Invega Sustena Injection [Other] - 10/26/23 10:00 am Po,Gena Riddle MD [Primary Care Provider] - 1 Week Discharge Medications: New lorazepam 0.5 mg Tablet 0.5 mg PO BID PRN (Reason: anxiety) Qty: 60 0RF benztropine 1 mg Tablet 1 mg PO TID PRN (Reason: Extrapyramidal Effects) Qty: 90 0RF ibuprofen 600 mg Tablet 600 mg PO Q4H PRN (Reason: moderate to severe pain) Qty: 60 0RF Invega Sustenna 234 mg/1.5 mL Syringe 234 mg IM Q30D Qty: 1.5 0RF Dermacerin Cream 1 appl topical BID Qty: 1 0RF Protocol: Apply to: Apply to: dry skin face Continued metronidazole 0.75 % Gel 1 appl TOPICAL DAILY Qty: 1 0RF Discontinued (DME) blood-glucose meter [Goodie Goodie App Autocode Meter] Kit See Rx Instructions .Route Qty: 1 0RF Rx Instructions: As directed metformin 500 mg Tablet 500 mg PO BID olanzapine [Zyprexa Zydis] 20 mg Tablet,Disintegrating 20 mg PO DAILY olanzapine [Zyprexa Zydis] 10 mg Tablet,Disintegrating 10 mg PO DAILY PRN (Reason: Psychosis) albuterol sulfate [Ventolin HFA] 90 mcg/actuation Hfa Aerosol Inhaler 2 puff INHALATION DIRECTED PRN (Reason: Wheezing) nicotine (polacrilex) 2 mg Lozenge 2 mg BUCCAL Q2-4H PRN (Reason: Nicotine Cravings) duloxetine [Cymbalta] 20 mg Capsule,Delayed Release(Dr/Ec) 40 mg PO DAILY Multi-Vitamin W/Extra C 1 tab PO DAILY cholecalciferol (vitamin D3) [Vitamin D3] 10 mcg (400 unit) tablet 10 mcg PO DAILY (DME) Prodigy No Coding Strip See Rx Instructions .Route Qty: 100 3RF Rx Instructions: As directed check the BS QD (DME) lancets [Prodigy Lancets] 28 gauge misc See Rx Instructions .Route Qty: 100 3RF Rx Instructions: As directed check the blood sugar once a day No Action cholecalciferol (vitamin D3) [Vitamin D3] 10 mcg (400 unit) tablet 10 mcg PO DAILY Qty: 30 12RF multivitamin [Daily Multi-Vitamin] Tablet 1 tab PO DAILY Qty: 30 12RF olanzapine 10 mg tablet,disintegrating 10 mg translingual BID metformin 1,000 mg tablet 1,000 mg PO BID Qty: 60 4RF Discharge Orders: Discharge Order (Routine); Ordered 10/09/23 Ordered By: Carolin Reyes Diet: Advance to usual diet Activity on Discharge: As tolerated Stand Alone Forms: Patient Portal Discharge page Print Language: Nepali Care Plan Goals: Mood and Behavioral Stabilization Health Concerns: Mood and Behavioral Stabilization Plan of Treatment: Attend scheduled appointments Take medications as directed Invega Sustenna injection is due on October 26, 2023, 234 mg IM Assessment: Pt interviewed prior to discharge and found to be fully oriented and without SI, HI. Pt has insight and demonstrates good judgment in terms of wanting to pursue treatment. Pt is not in imminent risk of harm to self or others and has a safety plan that includes presenting to the closest ER or calling 911 if feeling unsafe. Pt has been observed closely by nursing and unit staff throughout admission. Pt has not engaged in any behaviors that suggest dangerousness to self or others and has demonstrated appropriate behaviors and impulse control. Discharge Date/Time: 10/09/23 11:10
== END 2023-10-09 11:10 | disposition home or self-care (01) | DRG 885 ==
LOC: HO.ED 06-26 15:33 → HO.PM5 06-27 12:50
PROVIDERS: Emergency Medicine; Admitting Provider Clinical Nurse Specialist Psychiatric/Mental Health, Adult; Emergency Provider Emergency Medicine; PCP Internal Medicine; Visit Provider Clinical Nurse Specialist Psychiatric/Mental Health, Adult
DX: F25.9 Schizoaffective disorder, unspecified (principal); L40.9 Psoriasis, unspecified; Z20.822 Contact with and (suspected) exposure to COVID-19; Z79.84 Long term (current) use of oral hypoglycemic drugs; Z79.899 Other long term (current) drug therapy
CPT/HCPCS: 36415; 80053; 80061; 80307; 81001; 83036; 84443; 85025; 87635; 99285; J1200; J1630; J2060; J2359; J2426; S9485

== ENCOUNTER → 2023-06-27 12:48 | Outpatient (BNV) | payer MEDICARE, MEDICAID, SELFPAY | PROVIDERS: Admitting Provider Clinical Nurse Specialist Psychiatric/Mental Health, Adult; Emergency Provider Emergency Medicine; PCP Internal Medicine; Visit Provider Psychiatry & Neurology Psychiatry | DX: F25.0 Schizoaffective disorder, bipolar type (principal) | CPT/HCPCS: 90792; 99231; 99232; 99238; 99499 ==

== ENCOUNTER 2023-10-22 10:27 | Outpatient (AMB) | payer MEDICARE, MEDICAID, SELFPAY ==
--- NOTE | 2023-10-22 10:47 | MHC.PC.OV ---
Vital Signs 10/22/23 10:48 Height 5 ft 2 in Weight 209 lb BMI 38.2 BP 138/78 Blood Pressure Location Lt brachial Position Sitting Pulse 92 Pulse Source Pulse Oximeter Pulse Oximetry (%) 95 Oxygen Delivery Method Room Air Intake Visit Reasons: discharged 10/08 Allergies acetaminophen [From TYLENOL] Allergy (Intermediate, Verified 10/22/23 10:50) HIVES meperidine [From Demerol] Allergy (Verified 10/22/23 10:50) Unknown Medication List - Last Reconciled 10/22/23 by Gena Paul, benztropine 1 mg PO TID PRN cholecalciferol (vitamin D3) (Vitamin D3) 10 mcg PO DAILY ibuprofen 600 mg PO Q4H PRN lorazepam 0.5 mg PO BID PRN metformin 500 mg PO BID metronidazole 0.75% 1 appl topical DAILY multivitamin (Daily Multi-Vitamin tablet) 1 tab PO DAILY olanzapine 10 mg translingual BID paliperidone palmitate (Invega Sustenna) 234 mg (1.5 mL) IM Q30D white petrolatum-mineral oil (Dermacerin topical cream) 1 appl See Protocol topical BID Tobacco use date assessed: 10/22/23 HPI discharged 10/08 HPI Details 53-year-old obese female smoker with uncontrolled diabetes mellitus hypercholesterolemia schizoaffective disorder coming in for follow-up. Last seen in 09/12/2022 patient was recently in the hospital admitted in 07/15/2023 and discharged 10/13/2023 for schizoaffective disorder. PAtient greets me that she is . Chart list of med is wrong. Patient declined physical exam and left the office. PENDING SALE TO [facility] Medical History Hypertension Obesity Postmenopausal Postmenopausal bleeding Rosacea, acne Schizoaffective disorder Surgical History Delivery by section Social History Household Members: None Household Members Other:: Ivis, Meño, Jhony Gracia Housing: Assisted Living Facility Housing Other:: Group living environment Do you presently have visiting nurse or other home services: Yes ([facility]) Unable to assess alcohol history related to: Refusing to respond Alcohol intake: current Alcohol intake frequency: does not drink Comment: patient asleep at start of shift Patient Tobacco Use Status: Tobacco use Unknown Tobacco use type: Cigarette Cigarettes Per Day: 5 e-Cigarette/Vaping Use: Never Used Substance Use Type: Marijuana Advance Directives Date on File: 11/06/20 service: No Current occupational status: disabled Sexual orientation: Straight/Heterosexual Cognitive needs: No Hearing needs: No Vision needs: No Questionnaire Thrive Questionnaire Date Thrive assessed: 10/06/23 AUDIT C Alcohol Use Questionnaire (AUDIT-C) 1. How often do you have a drink containing alcohol?: Never 3. How often do you have six or more drinks on one occasion?: Never Total Score: 0 Score Reviewed/Action Taken: No CLEMENTE-7 AMB Questionnaire CLEMENTE-7 Date CLEMENTE - 7 assessed: 07/23/22 Source: Developed by Drs. Viktor Lopez, Josee Ibarra, Chay Galvan and colleagues, with an educational khurram from [employer]. Physical exam (Primary Care) Vital Signs: Last Vital Signs Pulse 92 10/22/23 10:48 BP 138/78 10/22/23 10:48 Pulse Ox 95 10/22/23 10:48 Oxygen Delivery Method Room Air 10/22/23 10:48 BMI result Body Mass Index 38.2 Tobacco/Smoking Status: Tobacco use Status Tobacco use date assessed 10/22/23 10/22/23 10:57 Patient Tobacco Use Status Tobacco use Unknown 10/22/23 10:52 Tobacco use type Cigarette 10/22/23 10:52 e-Cigarette/Vaping Use Never Used 10/22/23 10:52 Thrive Assessment: Date of Thrive Assessment Date Thrive assessed 10/06/23 10/22/23 10:52 Const General: alert; No acute distress Eyes Conjunctivae: conjunctivae normal Resp Auscultation: clear to auscultation bilaterally Cardio Rate: regular rate Rhythm: regular rhythm GI Inspection: Yes normal to inspection Extrem General: Yes normal to inspection and No edema Results AMB Hemoglobin A1c AMB Hemoglobin A1c 8.1 % Last Edit by GEORGETTE Valentin on 10/22/23 11:04 Results Reviewed Results Reviewed: Laboratory Last Values Hgb A1c (Clinic) 8.1 % (4.0-6.0) H 10/22/23 11:03 Assessment and Plan Assessment & Plan (1) Type 2 diabetes mellitus with hyperglycemia: Code(s): E11.65 - Type 2 diabetes mellitus with hyperglycemia Plan: Decrease the amount of carbohydrate intake, pasta, bread, rice and potatoes are all sugar and that is aside from all the sweet stuff, remember that fruits are good but they are Sweet also. Hemoglobin A1c goal of less than 6.5. On metformin 500 mg twice a day discussed with the patient that the blood sugar is not under control and advised to increase the metformin to a 1000 mg twice a day (2) Hypercholesterolemia: Code(s): E78.00 - Pure hypercholesterolemia, unspecified Plan: Avoid fried foods, chicken skin, eggs, butter margarine, pastries and meat. Be it pork or beef they have a lot of cholesterol LDL goal of less than 100 and triglyceride of less than 150 10/13/2023 last blood work 77 (3) Obesity: Code(s): E66.9 - Obesity, unspecified Qualifiers: Body mass index: BMI 39.0-39.9 Obesity classification: adult class 2 (BMI 35 - 39.9) Obesity type: due to excess calories Serious obesity comorbidity presence: without serious comorbidity Qualified Code(s): E66.09 - Other obesity due to excess calories; Z68.39 - Body mass index [BMI] 39.0-39.9, adult Plan: Diet and exercise discussed about diet and exercise and to keep her active (4) Schizoaffective disorder: Comment: 50 yo female, long hx of psychosis and substance abuse, in a [facility] care setting since April 2019, when she found her partner had overdosed on heroin. Both were brought to ER, and pt watched partner . After this loss, pt had [facility] psychiatric hospitalization, addiction hospitalization, respite stay and then was admitted to a snf. While at the snf, pt stopped INFANTE medication regime, was in the home during the heightend state of the COVID pandemic and made poor alliances with her team due to her psychosis. She was admitted for re-stabilization and re-titration of medications. Code(s): F25.9 - Schizoaffective disorder, unspecified Qualifiers: Schizoaffective disorder type: bipolar Qualified Code(s): F25.0 - Schizoaffective disorder, bipolar type Plan: Continue to follow-up with psychiatry (5) Tobacco abuse: Code(s): Z72.0 - Tobacco use Plan: Patient continues to smoke and advised to stop smoking. (6) Postmenopausal bleeding: Code(s): N95.0 - Postmenopausal bleeding Plan: Patient insist on being and so will do a urine test as well as hCG test. Orders: Orders HCG Quantitative Today Gena Paul MD N95.0 - Postmenopausal bleeding AMB HCG Urine Test Today Gena Paul MD N95.0 - Postmenopausal bleeding AMB Hemoglobin A1c Today Gena Paul MD E11.65 - Type 2 diabetes mellitus with hyperglycemia Medications: Changed From metformin 500 mg PO BID 60 tabs 0RF E11.65 - Type 2 diabetes mellitus with hyperglycemia To metformin 1,000 mg PO BID 60 tabs 4RF E11.65 - Type 2 diabetes mellitus with hyperglycemia Gena Paul MD From olanzapine 10 mg translingual BID 60 tabs 0RF N95.0 - Postmenopausal bleeding To olanzapine 10 mg translingual BID N95.0 - Postmenopausal bleeding Carolin Reyes, SOCIAL SERVICE TECHNICIAN Coding Level of Care Code Est Pt Level 4 (86900) Complex EM visit Add On G2211 Diagnoses Type 2 diabetes mellitus with hyperglycemia E11.65 Hypercholesterolemia E78.00 Class 2 obesity due to excess calories without serious comorbidity with body mass index (BMI) of 39.0 to 39.9 in adult E66.09; Z68.39 Body mass index: BMI 39.0-39.9 Obesity classification: adult class 2 (BMI 35 - 39.9) Obesity type: due to excess calories Serious obesity comorbidity presence: without serious comorbidity Schizoaffective disorder, bipolar type F25.0 Schizoaffective disorder type: bipolar Tobacco abuse Z72.0 Postmenopausal bleeding N95.0
[2023-10-22 10:48] VITALS: BP 138/78; PULSE 92; O2SAT 95; BMI 38.2
== END 2023-10-22 11:33 | disposition home or self-care (01) ==
PROVIDERS: PCP Internal Medicine; Visit Provider Internal Medicine
DX: E11.65 Type 2 diabetes mellitus with hyperglycemia (principal); F25.0 Schizoaffective disorder, bipolar type; E66.01 Morbid (severe) obesity due to excess calories; Z68.39 Body mass index [BMI] 39.0-39.9, adult; E78.00 Pure hypercholesterolemia, unspecified; Z72.0 Tobacco use; N95.0 Postmenopausal bleeding
CPT/HCPCS: 83036; 99214; G2211

== ENCOUNTER 2024-03-10 10:13 | Outpatient (AMB) | payer MEDICARE, MEDICAID, SELFPAY ==
[2024-03-10 10:15] VITALS: BP 132/70; PULSE 99; O2SAT 95; BMI 36.8
--- NOTE | 2024-03-10 10:15 | MHC.PC.OV ---
Vital Signs 03/10/24 10:15 Height 5 ft 2 in Weight 201 lb BMI 36.8 BP 132/70 Blood Pressure Location Lt brachial Position Sitting Pulse 99 Pulse Source Pulse Oximeter Pulse Oximetry (%) 95 Oxygen Delivery Method Room Air Intake Visit Reasons: DM Nursery Attendant Required: No Allergies acetaminophen [From TYLENOL] Allergy (Intermediate, Verified 03/10/24 10:19) HIVES meperidine [From Demerol] Allergy (Verified 03/10/24 10:19) Unknown Tobacco use date assessed: 10/22/23 HPI DM HPI Details 53-year-old obese female h smoker with diabetes mellitus hypercholesterolemia schizoaffective disorder coming in for follow-up last seen in 10/13/2023. Patient has declined mammogram. [facility] Medical History Hypertension Obesity Postmenopausal Postmenopausal bleeding Rosacea, acne Schizoaffective disorder Surgical History Delivery by section Social History Household Members: None Household Members Other:: Ivis, Meño, Samia, Jhony Housing: Assisted Living Facility Housing Other:: Group living environment Do you presently have visiting nurse or other home services: Yes ([facility]) Unable to assess alcohol history related to: Refusing to respond Alcohol intake: current Alcohol intake frequency: does not drink Comment: patient asleep at start of shift Patient Tobacco Use Status: Tobacco use Unknown Tobacco use type: Cigarette Cigarettes Per Day: 5 e-Cigarette/Vaping Use: Never Used Substance Use Type: Marijuana Advance Directives Date on File: 11/06/20 service: No Current occupational status: disabled Sexual orientation: Straight/Heterosexual Cognitive needs: No Hearing needs: No Vision needs: No Questionnaire Thrive Questionnaire Date Thrive assessed: 10/06/23 Are you currently unemployed and looking for a job?: No AUDIT C Alcohol Use Questionnaire (AUDIT-C) 1. How often do you have a drink containing alcohol?: Never 3. How often do you have six or more drinks on one occasion?: Never Total Score: 0 Score Reviewed/Action Taken: No Physical exam (Primary Care) Vital Signs: Last Vital Signs Pulse 99 03/10/24 10:15 BP 132/70 03/10/24 10:15 Pulse Ox 95 03/10/24 10:15 Oxygen Delivery Method Room Air 03/10/24 10:15 BMI result Body Mass Index 36.8 Tobacco/Smoking Status: Tobacco use Status Tobacco use date assessed 10/22/23 03/10/24 10:23 Patient Tobacco Use Status Tobacco use Unknown 03/10/24 10:23 Tobacco use type Cigarette 03/10/24 10:23 e-Cigarette/Vaping Use Never Used 03/10/24 10:23 Thrive Assessment: Date of Thrive Assessment Date Thrive assessed 10/06/23 03/10/24 10:23 Const General: alert; No acute distress Eyes Conjunctivae: conjunctivae normal Resp Auscultation: clear to auscultation bilaterally Cardio Rate: regular rate Rhythm: regular rhythm GI Inspection: Yes normal to inspection Extrem General: Yes normal to inspection and No edema Results AMB Hemoglobin A1c AMB Hemoglobin A1c 6.4 % Last Edit by GEORGETTE Valentin on 03/10/24 10:25 Results Reviewed Results Reviewed: Laboratory Last Values Hgb A1c (Clinic) 6.4 % (4.0-6.0) H 03/10/24 10:14 Coding Level of Care Code Est Pt Level 4 (81408) Complex EM visit Add On G2211 Diagnoses Type 2 diabetes mellitus with hyperglycemia E11.65 Tobacco abuse Z72.0 Hypercholesterolemia E78.00 Schizoaffective disorder, bipolar type F25.0 Schizoaffective disorder type: bipolar Class 2 obesity due to excess calories without serious comorbidity with body mass index (BMI) of 39.0 to 39.9 in adult E66.09; Z68.39 Obesity type: due to excess calories Obesity classification: adult class 2 (BMI 35 - 39.9) Serious obesity comorbidity presence: without serious comorbidity Body mass index: BMI 39.0-39.9 Assessment & Plan Assessment & Plan (1) Type 2 diabetes mellitus with hyperglycemia: Code(s): E11.65 - Type 2 diabetes mellitus with hyperglycemia Category: Medical Plan: Decrease the amount of carbohydrate intake, pasta, bread, rice and potatoes are all sugar and that is aside from all the sweet stuff, remember that fruits are good but they are Sweet also. Hemoglobin A1c goal of less than 6.5. Patient takes metformin a 1000 mg twice a day only (2) Tobacco abuse: Comment: decreasing 5 a day (03/10/2024 Code(s): Z72.0 - Tobacco use Category: Medical Plan: Patient is strongly advised to stop smoking! PAtient has been decreasing smoking to 5 or less in a day (3) Hypercholesterolemia: Code(s): E78.00 - Pure hypercholesterolemia, unspecified Category: Medical Plan: Avoid fried foods, chicken skin, eggs, butter margarine, pastries and meat. Be it pork or beef they have a lot of cholesterol 10/13/2023 last blood work LDL goal of less than 100 and triglyceride of less than 150. Presently on no medication but the triglyceride needs to be repeated. (4) Schizoaffective disorder: Comment: 50 yo female, long hx of psychosis and substance abuse, in a skilled nursing care setting since April 2019, when she found her partner had overdosed on heroin. Both were brought to ER, and pt watched partner . 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 While at the correction, pt stopped INFANTE medication regime, was in the home during the heightend state of the COVID pandemic and made poor alliances with her team due to her psychosis. She was admitted for re-stabilization and re-titration of medications. Code(s): F25.9 - Schizoaffective disorder, unspecified Category: Medical Qualifiers: Schizoaffective disorder type: bipolar Qualified Code(s): F25.0 - Schizoaffective disorder, bipolar type Plan: Continue with counseling and therapy (5) Obesity: Code(s): E66.9 - Obesity, unspecified Category: Medical Qualifiers: Obesity type: due to excess calories Obesity classification: adult class 2 (BMI 35 - 39.9) Serious obesity comorbidity presence: without serious comorbidity Body mass index: BMI 39.0-39.9 Qualified Code(s): E66.09 - Other obesity due to excess calories; Z68.39 - Body mass index [BMI] 39.0-39.9, adult Plan: Diet and exercise Orders: Orders AMB Hemoglobin A1c Today E11.65 - Type 2 diabetes mellitus with hyperglycemia Comprehensive Met. Panel Today E78.00 - Pure hypercholesterolemia, unspecified Lipid Panel Today E78.00 - Pure hypercholesterolemia, unspecified Medications: Changed From metformin 1,000 mg PO BID 60 tabs 4RF E11.65 - Type 2 diabetes mellitus with hyperglycemia To metformin 1,000 mg PO .QD 60 tabs 4RF E11.65 - Type 2 diabetes mellitus with hyperglycemia
== END 2024-03-10 10:52 | disposition home or self-care (01) ==
PROVIDERS: PCP Internal Medicine; Visit Provider Internal Medicine
DX: E11.65 Type 2 diabetes mellitus with hyperglycemia (principal); Z72.0 Tobacco use; E78.00 Pure hypercholesterolemia, unspecified; F25.0 Schizoaffective disorder, bipolar type; E66.09 Other obesity due to excess calories; Z68.39 Body mass index [BMI] 39.0-39.9, adult

== ENCOUNTER → 2024-03-10 10:13 | Outpatient (BNVA) | payer MEDICARE, MEDICAID, SELFPAY | PROVIDERS: PCP Internal Medicine; Visit Provider Internal Medicine | DX: E11.65 Type 2 diabetes mellitus with hyperglycemia (principal); E78.00 Pure hypercholesterolemia, unspecified; F25.0 Schizoaffective disorder, bipolar type; E66.09 Other obesity due to excess calories; Z68.39 Body mass index [BMI] 39.0-39.9, adult; Z72.0 Tobacco use; Z71.3 Dietary counseling and surveillance | CPT/HCPCS: 83036; 99212 ==

== ENCOUNTER 2024-05-06 18:04 | Inpatient (IN) | payer MEDICARE, MEDICAID, SELFPAY ==
[2024-05-06 18:18] VITALS: BP 145/80; PULSE 97; RESP 18; TEMP 37; O2SAT 94; BMI 32.9
[2024-05-06 18:41] LABS: MANUAL DIFF FLAG NO
[2024-05-06 18:45] LABS: Basophils Absolute Auto 0.1 X10*3/uL (0.0-0.2); Basophils Percent Auto 0.7 % (0-2); Eosinophils Absolute Auto 0.2 X10*3/uL (0.0-0.4); Eosinophils Percent Auto 1.2 % (0-4); Hematocrit 47.2 % (37.0-47.0); Hemoglobin 16.3 g/dl (12.0-16.0); Imm Gran Abs Auto 0.07 X10*3/uL (0.00-0.03); Imm Gran Pct Auto 0.4 % (0.0-0.4); Lymphocytes Absolute Auto 2.9 X10*3/uL (1.2-4.9); Lymphocytes Percent Auto 18.2 % (20-40); Mean Corpuscular HGB Conc 34.5 g/dl (31.0-35.0); Mean Corpuscular Hemoglobin 33.1 pg (27.0-33.0); Mean Corpuscular Volume 95.7 fL (80.0-98.0); Mean Platelet Volume 9.3 fL (9.4-12.3); Monocytes Absolute Auto 0.8 X10*3/uL (0.1-1.2); Monocytes Percent Auto 5.2 % (2-11); Neutrophils Percent Auto 74.3 % (45-73); Platelet Count 272 X10*3/uL (160-400); Red Blood Count 4.93 X10*6/uL (4.20-5.50); Red Cell Distribution Width 12.1 % (11.0-16.0); White Blood Count 16.2 X10*3/uL (4.8-10.8)
[2024-05-06 18:57] LABS: Alanine Aminotransferase 40 U/L (0-31); Albumin Level 4.4 g/dL (3.5-5.0); Alkaline Phosphatase 96 U/L (39-117); Anion Gap 12 (12-20); Aspartate Amino Transferase 23 U/L (5-31); Bilirubin Total 0.3 mg/dL (0.0-1.0); Blood Urea Nitrogen 13 mg/dL (9-16); Calcium 9.8 mg/dL (8.4-10.2); Carbon Dioxide 25 mmol/L (22-29); Chloride 111 mmol/L (96-108); Creatinine Clr Calc Pharmacy 78.5; Estimated Glomerular Filt Rate > 60; Ethanol < 10 mg/dL; Glucose Random 95 mg/dL (60-115); Potassium 4.3 mmol/L (3.3-5.1); Sodium 144 mmol/L (135-145); Total Protein 7.1 g/dL (6.5-8.0)
--- NOTE | 2024-05-06 19:42 | ED_ITS ---
HPI - General Adult General Chief complaint: Psychiatric Symptoms Stated complaint: SECTION 12 FROM [facility] Time Seen by Provider: 05/06/24 18:45 Source: patient Mode of arrival: ambulatory Limitations: no limitations History of Present Illness ED Provider: Deandre Lennon PA-C HPI narrative: 53 yold female with pmh of schizoaffective disorder presents to the ED for inappropraite behavior. patient is non-compliant with his meds. Patient sent from longterm. Usually around this time every Amarjit patient is usually decompensates stopped taking her meds. Related Data Home Medications ?Medication ?Instructions ?Recorded ?Confirmed olanzapine 10 mg disintegrating 10 mg translingual BID 10/22/23 10/22/23 tablet Previous Rx's ?Medication ?Instructions ?Recorded benztropine 1 mg tablet 1 mg PO TID PRN Extrapyramidal 10/08/23 Effects #90 tabs ibuprofen 600 mg tablet 600 mg PO Q4H PRN moderate to 10/08/23 severe pain #60 tabs lorazepam 0.5 mg tablet 0.5 mg PO BID PRN anxiety #60 tabs 10/08/23 metronidazole 0.75 % topical gel 1 appl topical DAILY #1 units 10/08/23 paliperidone palmitate 234 mg/1.5 234 mg (1.5 mL) IM Q30D #1.5 mL 10/08/23 mL intramuscular syringe (Invega Sustenna) white petrolatum-mineral oil 1 appl topical BID #1 units 10/08/23 topical cream (Dermacerin topical cream) cholecalciferol (vitamin D3) 10 10 mcg PO DAILY #30 tabs 10/29/23 mcg (400 unit) tablet (Vitamin D3) multivitamin (Daily Multi-Vitamin 1 tab PO DAILY #30 tabs 10/29/23 tablet) metformin 1,000 mg tablet 1,000 mg PO .QD #60 tabs 03/10/24 Allergies Allergy/AdvReac Type Severity Reaction Status Date / Time acetaminophen [From TYLENOL] Allergy Intermediate HIVES Verified 05/06/24 18:28 meperidine [From Demerol] Allergy Unknown Verified 05/06/24 18:28 Review of Systems 2 Review of Systems: Noncompliant with psych meds. Inappropriate behavior Yes all other systems are reviewed and are negative PMFSH Past Medical History Medical History Hypertension Obesity Postmenopausal Postmenopausal bleeding Rosacea, acne Schizoaffective disorder Surgical History Delivery by section Social History Social History Household Members: None Household Members Other:: Ivis, Meño, Samia, Jhony Housing: Assisted Living Facility Housing Other:: Group living environment Do you presently have visiting nurse or other home services: Yes ([facility]) Unable to assess alcohol history related to: Unknown Alcohol intake: current Alcohol intake frequency: does not drink Comment: patient asleep at start of shift Patient Tobacco Use Status: Tobacco use Unknown Tobacco use type: Cigarette Cigarettes Per Day: 5 Smoked in Last 30 Days: No e-Cigarette/Vaping Use: Never Used Use of substances other than those prescribed or required for medical reasons: Unknown Substance Use Type: Marijuana Advance Directives: Yes Advance Directives on File: Yes Advance Directives Date on File: 11/06/20 service: No Current occupational status: disabled Sexual orientation: Straight/Heterosexual Cognitive needs: No Hearing needs: No Vision needs: No Physical Exam ED Vital Signs: Vital Signs - 24 hr 05/06/24 18:18 05/07/24 00:57 Temperature 98.6 F Pulse Rate 97 Respiratory Rate 18 18 Blood Pressure 145/80 H Pulse Oximetry 94 Oxygen Delivery Method Room Air BMI result Body Mass Index 32.9 Const General: cooperative, healthy appearing, comfortable, no acute distress, well developed, alert, awake and Physically active Orientation/consciousness: patient oriented x3 HENMT Head: Yes normal to inspection, Yes No palpable skull fracture present, Yes normocephalic and Yes atraumatic Eyes General: appearance normal, both eyes and all related structures Neck Neck: Yes normal visual inspection, Yes full ROM, Yes no lymphadenopathy, Yes no meningeal signs, Yes trachea midline, Yes supple, No anterior neck swelling and No tender Chest Chest palpation & inspection: normal inspection of the chest and normal palpation of entire chest wall Resp Effort & Inspection: normal respiratory effort and able to speak in complete sentences Auscultation: clear to auscultation bilaterally Cardio Jugular venous distension: no JVD Heart sounds: S1 normal heart sound present and S2 normal heart sound present GI Inspection: Yes normal to inspection Palpation (GI): Soft to palpation, not firm, nontender, no guarding and not rigid General: Yes no CVA tenderness Back/Spine/Pelvis Back: no CVA tenderness and No back tenderness Skin General skin exam: no rashes or lesions noted, elasticity normal and turgor normal Neuro General: patient oriented x3, gait normal, tone normal, moves all extremities, Normal light touch and pain sensation, no meningeal signs, no focal motor deficits, CN's II-XI intact bilaterally and normal sensation to monofilament Extrem Other: Inappropriate behavior Psych Appearance: grossly normal, well kempt and not disheveled Course Course Course Narrative: cation. Medical Decision Making Medical Decision Making [facility] Narrative: 53-year-old female presents to ED for inappropriate behavior and noncompliant with her psych medication. Patient's labs ordered care team consult placed. Patient is not suicidal or homicidal 9:49pm: Care team consultantjaclyn Hernandez evaluated patient and recommended patient be admitted some psych inpatient for mood stabilization and medication evaluation. Patient is sleeping comfortably in bed. Patient denied any distress. Patient will be going to M5 or M3 in the morning Differential Diagnosis Differential Diagnoses: The differential diagnosis associated with the presentation includes (Schizophrenia, depression, PTSD noncompliant with med) Admission/Observation Consideration of admission/observation: Escalation of care including admission/observation considered Consult Healthcare Provider Management of the patient was discussed with: Production Mechanic (Care team) Lab Data [facility] Lab Attestation statement: I reviewed the patient's lab results. 05/06/24 18:36 05/06/24 18:36 Labs: Lab Results 05/06/24 Range/Units 18:36 WBC 16.2 H (4.8-10.8) X10*3/uL RBC 4.93 (4.20-5.50) X10*6/uL Hgb 16.3 H (12.0-16.0) g/dl Hct 47.2 H (37.0-47.0) % MCV 95.7 (80.0-98.0) fL MCH 33.1 H (27.0-33.0) pg MCHC 34.5 (31.0-35.0) g/dl RDW 12.1 (11.0-16.0) % Plt Count 272 (160-400) X10*3/uL MPV 9.3 L (9.4-12.3) fL Immature Gran % (Auto) 0.4 (0.0-0.4) % Neut % (Auto) 74.3 H (45-73) % Lymph % (Auto) 18.2 L (20-40) % Phillips % (Auto) 5.2 (2-11) % Eos % (Auto) 1.2 (0-4) % Baso % (Auto) 0.7 (0-2) % Lymph # (Auto) 2.9 (1.2-4.9) X10*3/uL Phillips # (Auto) 0.8 (0.1-1.2) X10*3/uL Eos # (Auto) 0.2 (0.0-0.4) X10*3/uL Baso # (Auto) 0.1 (0.0-0.2) X10*3/uL Abs Immat Gran (auto) 0.07 H (0.00-0.03) X10*3/uL Absolute Neuts (auto) 12.0 H (2.0-8.3) x10*3/uL Absolute Nucleated RBC 0.000 (0.0-0.012) X10*3/uL Nucleated RBC % (auto) 0.0 (0.0-0.2) /100WBC Sodium 144 (135-145) mmol/L Potassium 4.3 (3.3-5.1) mmol/L Chloride 111 H (96-108) mmol/L Carbon Dioxide 25 (22-29) mmol/L Anion Gap 12 (12-20) BUN 13 (9-16) mg/dL Creatinine 0.81 (0.5-1.4) mg/dL Estim Creat Clear Calc 78.5 Estimated GFR > 60 Random Glucose 95 (60-115) mg/dL Calcium 9.8 (8.4-10.2) mg/dL Total Bilirubin 0.3 (0.0-1.0) mg/dL AST 23 (5-31) U/L ALT 40 H (0-31) U/L Alkaline Phosphatase 96 (39-117) U/L Total Protein 7.1 (6.5-8.0) g/dL Albumin 4.4 (3.5-5.0) g/dL Ethyl Alcohol < 10 mg/dL Independent Historian Clinical information obtained from an independent historian. History obtained from or confirmed by: EMS and Other (patient) External Record Review External record reviewed: Other (prior visitsi) Discharge Plan Discharge Clinical Impression: Schizoaffective disorder Qualifiers: Schizoaffective disorder type: bipolar Qualified Code(s): F25.0 - Schizoaffective disorder, bipolar type Patient Disposition: Still a Patient Prescriptions: No Action cholecalciferol (vitamin D3) [Vitamin D3] 10 mcg (400 unit) tablet 10 mcg PO DAILY Qty: 30 12RF multivitamin [Daily Multi-Vitamin] Tablet 1 tab PO DAILY Qty: 30 12RF lorazepam 0.5 mg Tablet 0.5 mg PO BID PRN (Reason: anxiety) Qty: 60 0RF benztropine 1 mg Tablet 1 mg PO TID PRN (Reason: Extrapyramidal Effects) Qty: 90 0RF ibuprofen 600 mg Tablet 600 mg PO Q4H PRN (Reason: moderate to severe pain) Qty: 60 0RF Invega Sustenna 234 mg/1.5 mL Syringe 234 mg IM Q30D Qty: 1.5 0RF Dermacerin Cream 1 appl topical BID Qty: 1 0RF Protocol: Apply to: Apply to: dry skin face metronidazole 0.75 % Gel 1 appl TOPICAL DAILY Qty: 1 0RF olanzapine 10 mg tablet,disintegrating 10 mg translingual BID metformin 1,000 mg tablet 1,000 mg PO .QD Qty: 60 4RF Interventions: [place]-Suicide Risk Severity Scale Last Done: 05/06/24 18:38 Print Language: German
--- NOTE | 2024-05-07 | ECG_ITS ---
Test Reason : baseline qt Blood Pressure : / mmHG Vent. Rate : 091 BPM Atrial Rate : 091 BPM P-R Int : 158 ms QRS Dur : 080 ms QT Int : 362 ms P-R-T Axes : 056 -29 047 degrees QTc Int : 445 ms Normal sinus rhythm Normal ECG When compared with ECG of 12-SEP-2020 12:42, No significant change was found Referred By: Neida London Electronically Signed By:DANIELLE STARR MD
--- OUTSIDE RECORDS SUMMARY | 2024-05-07 00:24 | XMS_ITS | Data Portability ---
Author Organization [place] - [facility] Address [address] [place] [id number] Care Team Providers Care Coding Coordinator Name Role Phone IRENE NORMAN Primary Care Provider [phone] Assessment Encounter Date Assessment Date Assessment LastModified by Organization Details LastModified Time 03/24/2020 03/24/2020 Overview/History : 49 y/o F with PMHx sig for schizoaffective disorder, new to , who presents for asymptomatic COVID testing. 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 Patient herself is asymptomatic. Exam: afebrile, RRR, normotensive, normal resps, well appearing and non-toxic. GENERAL: well developed, well nourished, appears stated age, sitting comfortably in no acute distress. HEENT: normocephalic, atraumatic, PERRL, EOMI, sclera anicteric, no conjunctival injection, nares patent. NECK: trachea midline, no masses. RESP: normal I:E, breathing non-labored, no cough or audible wheeze. CARDIO: RRR, normal S1, S2, radial pulses 2+ bilaterally. MUSK: normal strength, ROM, muscle tone, no atrophy. NEURO: awake, alert, no focal neuro deficits, moving all extremities spontaneously. SKIN: intact, good turgor, no cyanosis, pallor, ecchymosis, rash, lesions, abrasions, or lacerations. PSYCH: uncooperative, appropriate mood and affect. DDx considered, but not limited to: none, asymptomatic COVID testing. Work up/Results: COVID test pending. Plan/Discussion: Quarantine for 14 days. Continue to monitor for symptoms. Your COVID test results should be available in 2-3 days. We will call you with the results. Practice good hygiene, wash hands often, social distance Time On Scene with Patient: 00:34:22 pradeep Not available 03/24/2020 12:02:58 Plan of Treatment Reminders Order Date Submit Date Provider Last Modified By Organization Details Last Modified Time Details Appointments None recorded. Lab SARS CoV 2 RNA (COVID-19), QL, plateman-PCR, respiratory specimen 2019 020 [facility], [address], [place], [address], 0 21:09:13 Referral None recorded. Procedures None recorded. Surgeries None recorded. Imaging None recorded. Medication Orders None recorded. Patient TargetsNo targets recorded. Patient InstructionsNo instructions recorded. Reason for Referral None Reported. Results Created Date Observation Date Name Description Value Unit Range Abnormal Flag Note LastModifiedBy Organization Detail LastModifiedTime 03/24/20 20 03/26/2020 SARS CoV 2 RNA (COVI D-19) , QL, plateman-P CR, respi rator y speci men covid-19, CAS Not Detec beka Refer ence range : Not Detec beka (NOTE ) Testi ng was perfo rmed using the agus (R) SARS- CoV-2 test. This nucle ic acid ampli ficat ion test was devel oped and its perfo rmanc e arianna cteri stics deter mined by [facility]. Nucle ic acid ampli ficat ion tests inclu de PCR and TMA. This test has not been FDA clear ed or appro himanshu. This test has been autho rized by FDA under an Emerg ency Use Autho rizat ion (EUA) . This test is only autho rized for the durat ion of time the decla ratio n that circu mstan rock exist justi fying the autho rizat ion of the emerg ency use of in vitro diagn ostic tests for detec tion of SARS- CoV-2 virus and/o r diagn osis of COVID -19 infec tion under secti on 564(b )(1) of the Act, 21 U.S.C . 360bb b-3(b ) (1), unles s the autho rizat ion is termi nated or revok ed soone r. When diagn ostic testi ng is negat leigh, the possi bilit y of a false negat leigh resul t shoul d be consi dered in the roseline xt of a patie nt's recen t expos ures and the prese nce of clini fausto signs and sympt oms consi stent with COVID -19. An indiv idual witho ut sympt oms of COVID - 19 and who is not joseph ing SARS- CoV-2 virus would expec t to have a negat leigh (not detec beka) resul t in this assay . TEST PERFO RMED BY [facility], SAMARA AN, BELEN MIRANDA Y Not Available [facility] [address], [place], [address], 03/26/2020 21:09:13 Result Notes None recorded. Medical Equipment None Reported. Allergies No known drug allergies Medications Name Sig Start Date Stop Date Status Note LastModified by Organization Details LastModified Time ondansetron HCl 4 mg tablet active Not Available Not Available Not Available clonazepam 0.5 mg tablet active Not Available Not Available No t Available trazodone 100 mg tablet active Not Available Not Available No t Available benztropine 2 mg tablet active Not Available Not Available No t Available lisinopril 5 mg tablet active Not Available Not Available Not Available nystatin 100,000 unit/gram topical powder active Not Available Not Availab le Not Available ibuprofen 600 mg tablet active Not Available Not Available No t Available albuterol sulfate HFA 90 mcg/actuation aerosol inhaler active Not Available Not Availa ble Not Available risperidone 1 mg tablet active Not Available Not Available No t Available metoprolol tartrate 25 mg tablet TAKE 1 TABLET BY MOUTH 2 TIMES A DAY active Not Available Not Available No t Available nitrofurantoin monohydrate/mac rocrystals 100 mg capsule TAKE ONE CAPSULE BY MOUTH WITH FOOD TWICE A DAY FOR 10 DAYS active Not Available Not Available No t Available duloxetine 20 mg capsule,delayed release active Not Available Not Available Not Available Invega Sustenna 156 mg/mL intramuscular syringe active Not Available Not Available Not Available Invega Sustenna 234 mg/1.5 mL intramuscular syringe active Not Available Not Available Not Available Narcan 4 mg/actuation nasal spray active Not Available Not Available Not Available Tab-A-Linda 400 mcg tablet TAKE 1 TABLET BY MOUTH EVERY DAY active Not Available Not Available No t Available Vitals Date Recorded Oxygen saturation Oxygen saturation in Arterial blood by Pulse oximetry Heart rate Body temperature Respiratory rate Systolic blood pressure Diastolic blood pressure Provider Name and Address Organization Details Last Updated DateTime 0 99 % 99 % 88 /min 98.6 [degF] 18 /min 118 mm[Hg] 72 mm[Hg] Not Available [facility] 11:00:06 Social History Question Answer Notes LastModified by Organizat ion Details LastModified Time Do You Have An Advance Directive? Yes [employer] Information not available 03/24/2020 What Is Your Code Status? Full Code [employer] Information not available 03/24/2020 Sex: Unknown Functional Status None recorded. Mental Status None recorded. Family History Nothing Reported. Medical History No medical history recorded. Gynecological HistoryNo gynecological history recorded. Obstetrics History GPAL:G 0 P 0 0 0 0 Past Encounters Encounter ID Performer Location Encounter Start Date Encounter Closed Date Diagnosis/Indication Diagnosis SNOMED-CT Code Diagnosis ICD10 Code [id number] HARRIS RIOJAS [facility] [address] [place] [id number] 03/24/2020 10:50:35 03/25/2020 12:42:11 Exposure to communicable disease 680720106 Z20.828 Health Concerns Section Related Observation LastModified by Organization Detai ls LastModified Time None Recorded Concern Status LastModified by Organization Details LastModified Time None Recorded Advance Directives Directive Y: Payers Encounter Date Sequence Insurance Name Policy Number Policy Hou Covered Member ID Hou Member ID Guarantor Name 03/24/2020 1 [place] [employer] Sivan A Hailey [id number] Sivan Hart 03/24/2020 2 [place] Sivan Hart [id number] Sivan Hart Notes Date Note Type Note Provider Name and Address Organization Details Recorded Time 03/24/2020 text/html 49 y/o F with PM Hx sig for schizoaffective disorder, new to , who presents for asymptomatic COVID testing. 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 Patient herself is asymptomatic. HARRIS RIOJAS [address], [place], [address], [place] - [facility] 03/24/2020 12:03:04 OBGyn Episode No OBEpisode recorded.
--- NOTE | 2024-05-07 00:52 | MHC.EDTECH ---
pt continues to refuse to provide UA sample. rn aware.
[2024-05-07 00:57] VITALS: RESP 18
[2024-05-07 01:15] VITALS: RESP 16
[2024-05-07] MEDS: diphenhydrAMINE HCL 50 MG/ML VIAL IM (01:15)
[2024-05-07] MEDS: OLANZapine 10 MG VIAL IM (01:15)
[2024-05-07] MEDS: LORazepam 2 MG/ML VIAL IM (01:15)
[2024-05-07 01:30] VITALS: RESP 16
[2024-05-07 01:45] VITALS: RESP 16
[2024-05-07 02:00] VITALS: RESP 16
[2024-05-07 02:15] VITALS: RESP 16
--- NOTE | 2024-05-07 06:14 | PC.NURSE ---
Patient's escalating, loud disruptive, disorganized, threatening, delusional, high risk for assaultive behavior, provider notified/ordered Ativan 2mg IM, Olanzapine 10 mg IM, and Benadryl 50 mg IM, administered at 0115 with + effect, patient refused to provide urine sample, patient was seen in the community by [facility], disposition is section 12 inpatient bed search, per half-way patient has been refusing her medication for over 4 months, will continue to monitor
--- NOTE | 2024-05-07 08:50 | MHC.EDTECH ---
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
--- NOTE | 2024-05-07 08:53 | PC.NURSE ---
Pt.'s behaviors are escalating. Refusing EKG, yelling at staff members telling them that their names are Jesus and that she is the medical provider here. Refusing EKG, citing that we don't know what we're doing and only she knows how to do an EKG. Susan London MD notified for PRN medications.
--- NOTE | 2024-05-07 09:52 | PHA.MEDREC ---
Pharmacy Consult ? Medication Reconciliation Pharmacy has reviewed the medication reconciliation completed by nursing. Received mediation list from [facility]. patient on benztropine 1 mg BID instead of TID PRN. Patient also on metformin 1000 mg BID instead of daily. Orders were adjusted. Messaged ARMANI Agrawal to see if she would be able to find out when her last Invega injection was. Angie Lopez, PharmD
--- NOTE | 2024-05-07 10:32 | PC.NURSE ---
Pt. refused all medications. States that medications aren't real, and it's all in your head .
[2024-05-07] MEDS: Benztropine Mesylate 1 MG TABLET PO (22:10)
--- NOTE | 2024-05-07 22:15 | PC.NURSE ---
pt declined metformin stating she is not diabetic (random glucose 95 and no hx of diabetes listed in chart), and zyprexa
--- NOTE | 2024-05-07 22:33 | PC.NURSE ---
PT refused vitals.
[2024-05-08 07:13] LABS: Amphetamine Screen Urine Not Detected (Not Detect); Barbiturates, Urine Not Detected (Not Detect); Benzodiazepines Screen Urine Not Detected (Not Detect); Buprenorphine Scr Not Detected (Not Detect); Cannabinoid Screen Urine POSITIVE (Not Detect); Cocaine Screen Urine Not Detected (Not Detect); Fentanyl, urine Not Detected (Not Detect); Methadone Screen, Urine Not Detected (Not Detect); Opiate Screen Urine Not Detected (Not Detect); Oxycodone Screen Urine Not Detected (Not Detect); Phencyclidine Screen Urine Not Detected (Not Detect)
--- NOTE | 2024-05-08 07:13 | PC.NURSE ---
Assumed care of patient at 0645, patient moved from 4H to BH 5, patient appears to be in no apparent distress this am, occasionally agitated but able to redirect without issue. Patient currently pacing calmly on unit, offering no complaints to this RN. Patient remains an inpatient bedsearch at this time
[2024-05-08 07:20] LABS: Appearance Urine Clear; Color Urine Straw; Glucose Urine UA Negative (Negative); Leukocyte Esterase Urine Negative (Negative); Nitrite Urine Positive (Negative); UMIC TRIGGER UA YES; Urine Blood Negative (Negative); Urine Ketones Negative (Negative); Urine Protein Negative (Neg-Trace)
[2024-05-08 07:25] LABS: Bacteria Urine 4+ (None Seen); Hyaline Casts Urine 0-2 /LPF (0-2); RBC Urine 0-2 /HPF (0-2); WBC Urine 0-5 /HPF (0-5)
--- NOTE | 2024-05-08 08:57 | PC.NURSE ---
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
[2024-05-08 14:18] VITALS: PULSE 74; RESP 14; O2SAT 96
--- NOTE | 2024-05-08 18:41 | PC.NURSE ---
Patient calm and cooperative all day, offering no complaints to this RN, aware of plan of care for iploc
[2024-05-08 18:50] VITALS: RESP 20
[2024-05-08] MEDS: OLANZapine ODT 10 MG TAB.RAPDIS TRANSLINGU (21:09)
--- NOTE | 2024-05-08 21:11 | PC.NURSE ---
Addendum entered by Annita Hassanarnacion 05/09/24 02:40: manual barcode entry d/t pt paranoid about the barcode scanner reports that it is not good for her and became agitated Original Note: PT asking if she is going home tomorrow, TW noted she is a bed search. 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 Refused most medications except zyrpreka to which she stated she would take it becauce it is heroin. PT now resting quietly in bed. [address] Plan of care ongoing
[2024-05-09 06:34] VITALS: RESP 14
--- NOTE | 2024-05-09 07:26 | PC.NURSE ---
Assumed care of patient at 0645, patient appears to be sleeping, respirations even and unlabored, no apparent distress is noted. Continue plan of care for inpatient bedsearch
--- NOTE | 2024-05-09 08:40 | PC.NURSE ---
Pt frustrated this am, refusing all am medications stating I dont know who told you I need those, I am my doctor and I dont need them
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
[2024-05-09] MEDS: Nystatin Powder 15 GM BOTTLE 1 APPL TOPICAL (15:19)
[2024-05-09 15:48] VITALS: BMI 35.9
--- NOTE | 2024-05-09 15:56 | PC.ADMIT ---
Sivan is a 53-year-old female admitted from [facility] to [facility] on a CV for treatment of unspecified schizoaffective disorder. Tox screen positive for THC. Pt presented via EMS from her snf due to increased agitation, delusions and reported that she has been refusing her medications for the past 12 days and refused her Invega Sustenna IM. Pt was verbally aggressive towards snf staff and posturing them when they attempted to engage with her. Pt was chemically restrained on arrival to the ED on 05/07 for increased agitation. Per Pod RN, pt was noncompliant with medication and was suspicious of the barcode scanner stealing information from me. Pt has a hx of noncompliance and last hospitalization was on [facility] 06/29/23-10/09/23. Upon arrival to [facility], pt was pleasant, affect was flat, pt displayed thought blocking at times and had delayed responses to questions. Pt would also blankly stare at times. Pt refused vitals but allowed her weight to be taken. Skin check revealed fungal rash with odor under bilateral breasts, Nystatin powder order was obtained and pt allowed RN to apply. Pt declined to participate in assessment and asked to sleep, information is primarily obtained from crisis eval. Pt placed on 15 minute safety checks.
--- NOTE | 2024-05-09 16:31 | PC.NURSE ---
Pt refused flu vaccine at this time.
[2024-05-09 20:00] VITALS: RESP 18
[2024-05-09] MEDS: OLANZapine ODT 10 MG TAB.RAPDIS TRANSLINGU (21:26)
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
--- NOTE | 2024-05-10 16:51 | PC.NURSE ---
Pt refused to meet with TW to sign admission paperwork, safety tool,belongings,and MELANIE's.
[2024-05-10 20:00] VITALS: RESP 18
[2024-05-11] MEDS: Nystatin Powder 15 GM BOTTLE 1 APPL TOPICAL (06:34)
[2024-05-11 07:47] LABS: Cholesterol 193 mg/dL (<200); HDL Cholesterol 45 mg/dL (>40); LDL Cholesterol Calculated 110 mg/dL (<100); Triglycerides 193 mg/dL (<150)
--- NOTE | 2024-05-11 15:23 | P.PNPSI_ITS ---
Subjective Subjective Date of Service: 05/11/24 Reason For Visit: schizoaffective disorder Interim History: roaming the halls. quietly talking to self. per staff, refused morning meds, denied Sx. refused HS meds last night as well. yelling at roommate last NOC. Mental Status Exam Mental Status Exam Narrative: disheveled, hospital attire. cooperative to her ability. no PMA/PMR. speech nml rate, amount, loudness, tone, latency. thoughts generally disorganized and non-sequiturs to questions. affect constricted, normo-intense, non-labile. mood not assessed. no SI/SIBI/HI/AVH expressed. Diagnostics Vital Signs (24Hr): Vital Signs - 24 hr 05/10/24 20:00 Respiratory Rate 18 BMI result Body Mass Index 35.9 Labs 05/06/24 18:36 05/06/24 18:36 Labs: Laboratory Results - last 48 hr 05/11/24 07:02 Triglycerides 193 H Cholesterol 193 LDL Cholesterol, Calc 110 H HDL Cholesterol 45 Medications Medications Current Medications Al Hydroxide/Mg Hydroxide (Magnesium Hydrox/Alum Hydrox 30 Ml Oral.Susp) 30 ml PO Q6H PRN PRN Reason: Heartburn/Nausea Benztropine Mesylate (Benztropine Mesylate 1 Mg Tablet) 1 mg PO BID [facility] Last Admin: 05/11/24 09:26 Dose: Not Given Hydroxyzine HCl (Hydroxyzine Hcl 25 Mg Tablet) 25 mg PO Q6H PRN PRN Reason: Anxiety Ibuprofen (Ibuprofen 600 Mg Tablet) 600 mg PO Q4H PRN PRN Reason: moderate to severe pain Lorazepam (Lorazepam 0.5 Mg Tablet) 0.5 mg PO BID PRN PRN Reason: anxiety Magnesium Hydroxide (Milk Of Magnesia 30 Ml Oral.Susp) 30 ml PO DAILY PRN PRN Reason: Constipation Metformin HCl (Metformin Hcl 1,000 Mg Tablet) 1,000 mg PO BID [facility] Last Admin: 05/11/24 09:27 Dose: Not Given Metronidazole (Metronidazole 0.75 % Gel 45 Gm Tube) 1 appl TOPICAL DAILY [facility] Last Admin: 05/11/24 09:27 Dose: Not Given Multi-Ingred Cream/Lotion/Oil/Oint (Mineral Oil/Petrolatum,White 106 Gm Tube) 1 appl TOPICAL BID [facility]; Protocol Last Admin: 05/11/24 09:27 Dose: Not Given Multivitamins/Vitamin C (Multivitamin Tablet) 1 tab PO DAILY [facility] Last Admin: 05/11/24 09:27 Dose: Not Given Nitrofurantoin Macrocrystals (Nitrofurantoin Monohyd/M-Cryst 100 Mg Capsule) 100 mg PO BID [facility] Stop: 05/15/24 10:09 Last Admin: 05/11/24 09:27 Dose: Not Given Nystatin (Nystatin Powder 15 Gm Bottle) 1 appl TOPICAL BID [facility]; Protocol Last Admin: 05/11/24 06:34 Dose: 1 appl Olanzapine (Olanzapine Odt 10 Mg Tab.Rapdis) 10 mg TRANSLINGU BID [facility] Last Admin: 05/11/24 09:27 Dose: Not Given Olanzapine (Olanzapine Odt 10 Mg Tab.Rapdis) 5 mg TRANSLINGU Q4H PRN PRN Reason: agitation Paliperidone Palmitate (Paliperidone Palmitate 156 Mg/Ml Syringe) 156 mg IM ONCE ONE Stop: 05/11/24 15:22 Trazodone HCl (Trazodone Hcl 50 Mg Tablet) 50 mg PO BEDTIME MRX1 PRN PRN Reason: Insomnia Vitamin D (Cholecalciferol (Vitamin D3) 10 Mcg Tablet) 10 mcg PO DAILY [facility] Last Admin: 05/11/24 09:27 Dose: Not Given Allergies Allergies Allergy/AdvReac Type Severity Reaction Status Date / Time acetaminophen [From TYLENOL] Allergy Intermediate HIVES Verified 05/06/24 18:28 meperidine [From Demerol] Allergy Unknown Verified 05/06/24 18:28 Assessment & Plan Assessment & Plan (1) Schizoaffective disorder: Qualifiers: Schizoaffective disorder type: bipolar Qualified Code(s): F25.0 - Schizoaffective disorder, bipolar type Status: Acute Code(s): F25.9 - Schizoaffective disorder, unspecified (2) Type 2 diabetes mellitus with hyperglycemia: Status: Acute Code(s): E11.65 - Type 2 diabetes mellitus with hyperglycemia Plan 05/10: pt appears willing to take olanzapine. continue to offer the medication. address medical conditions as pt allows. 05/11: chart reviewed, affirmed HCP from prior [facility] stay noted, HCP received. discussed case with HCP Martine Elder ([phone]), who absolutely supported antipsychotic medication for pt and asserted it was her understanding that affirmation from earlier this year was still valid. MD has no reason to believe otherwise and will not formally invoke HCP again; it is, nevertheless, this bond underwriter's opinion that this patient lacks decision-making capacity regarding her mental healthcare at this time and that it is very appropriate to use an alternative decision maker as is being done. invega sustenna 156 mg ordered for now, to repeat in one week, then back to usual maintenance dosing next month. Reason for continued inpatient stay Substantial Risk for: harm to others and inability to function Time Spent With Patient Time: Total time managing care of this patient today __45__ minutes.
[2024-05-11] MEDS: Paliperidone Palmitate 156 MG/ML SYRINGE IM (16:23)
[2024-05-11 20:00] VITALS: RESP 16
--- NOTE | 2024-05-12 12:42 | P.PNPSI_ITS ---
Subjective Subjective Date of Service: 05/12/24 Reason For Visit: schizoaffective disorder Interim History: seen in her room. stated this quality analyst/technical writer is not Dr. Tyson, as quality analyst/technical writer introduced himself. pt stated, i know your real name. MD asked what that name was. pt replied, you know i know what it is. leave me alone. MD then excused himself from the room. per staff, pt allowed sustenna yesterday afternoon. slept 8 hours. Mental Status Exam Mental Status Exam Narrative: disheveled, hospital attire. not cooperative. no PMA/PMR. speech nml rate, decr amount, nml loudness, nml tone, nml latency. thoughts linear in response to questions, but bizarre, paranoid, delusional. affect constricted, normo- intense, non-labile. mood not assessed. no SI/SIBI/HI/AVH expressed. Diagnostics Vital Signs (24Hr): Vital Signs - 24 hr 05/11/24 20:00 Respiratory Rate 16 BMI result Body Mass Index 35.9 Labs 05/06/24 18:36 05/06/24 18:36 Labs: Laboratory Results - last 48 hr 05/11/24 07:02 Triglycerides 193 H Cholesterol 193 LDL Cholesterol, Calc 110 H HDL Cholesterol 45 Medications Medications Current Medications Al Hydroxide/Mg Hydroxide (Magnesium Hydrox/Alum Hydrox 30 Ml Oral.Susp) 30 ml PO Q6H PRN PRN Reason: Heartburn/Nausea Benztropine Mesylate (Benztropine Mesylate 1 Mg Tablet) 1 mg PO BID [facility] Last Admin: 05/12/24 10:47 Dose: Not Given Hydroxyzine HCl (Hydroxyzine Hcl 25 Mg Tablet) 25 mg PO Q6H PRN PRN Reason: Anxiety Ibuprofen (Ibuprofen 600 Mg Tablet) 600 mg PO Q4H PRN PRN Reason: moderate to severe pain Magnesium Hydroxide (Milk Of Magnesia 30 Ml Oral.Susp) 30 ml PO DAILY PRN PRN Reason: Constipation Metformin HCl (Metformin Hcl 1,000 Mg Tablet) 1,000 mg PO BID [facility] Last Admin: 05/12/24 10:47 Dose: Not Given Metronidazole (Metronidazole 0.75 % Gel 45 Gm Tube) 1 appl TOPICAL DAILY [facility] Last Admin: 05/12/24 10:47 Dose: Not Given Multi-Ingred Cream/Lotion/Oil/Oint (Mineral Oil/Petrolatum,White 106 Gm Tube) 1 appl TOPICAL BID [facility]; Protocol Last Admin: 05/12/24 10:48 Dose: Not Given Multivitamins/Vitamin C (Multivitamin Tablet) 1 tab PO DAILY [facility] Last Admin: 05/12/24 10:48 Dose: Not Given Nitrofurantoin Macrocrystals (Nitrofurantoin Monohyd/M-Cryst 100 Mg Capsule) 100 mg PO BID [facility] Stop: 05/15/24 10:09 Last Admin: 05/12/24 10:48 Dose: Not Given Nystatin (Nystatin Powder 15 Gm Bottle) 1 appl TOPICAL BID [facility]; Protocol Last Admin: 05/12/24 10:48 Dose: Not Given Olanzapine (Olanzapine Odt 10 Mg Tab.Rapdis) 10 mg TRANSLINGU BID [facility] Last Admin: 05/12/24 10:48 Dose: Not Given Olanzapine (Olanzapine Odt 10 Mg Tab.Rapdis) 5 mg TRANSLINGU Q4H PRN PRN Reason: agitation Trazodone HCl (Trazodone Hcl 50 Mg Tablet) 50 mg PO BEDTIME MRX1 PRN PRN Reason: Insomnia Vitamin D (Cholecalciferol (Vitamin D3) 10 Mcg Tablet) 10 mcg PO DAILY [facility] Last Admin: 05/12/24 10:47 Dose: Not Given Allergies Allergies Allergy/AdvReac Type Severity Reaction Status Date / Time acetaminophen [From TYLENOL] Allergy Intermediate HIVES Verified 05/06/24 18:28 meperidine [From Demerol] Allergy Unknown Verified 05/06/24 18:28 Assessment & Plan Assessment & Plan (1) Schizoaffective disorder: Qualifiers: Schizoaffective disorder type: bipolar Qualified Code(s): F25.0 - Schizoaffective disorder, bipolar type Status: Acute Code(s): F25.9 - Schizoaffective disorder, unspecified (2) Type 2 diabetes mellitus with hyperglycemia: Status: Acute Code(s): E11.65 - Type 2 diabetes mellitus with hyperglycemia Plan 05/10: pt appears willing to take olanzapine. continue to offer the medication. address medical conditions as pt allows. 05/11: chart reviewed, affirmed HCP from prior [facility] [place] stay noted, HCP received. discussed case with HCP Martine Elder ([phone]), who absolutely supported antipsychotic medication for pt and asserted it was her understanding that affirmation from earlier this year was still valid. MD has no reason to believe otherwise and will not formally invoke HCP again; it is, nevertheless, this quality analyst/technical writer's opinion that this patient lacks decision-making capacity regarding her mental healthcare at this time and that it is very appropriate to use an alternative decision maker as is being done. invega sustenna 156 mg ordered for now, to repeat in one week, then back to usual maintenance dosing next month. 05/12: received sustenna yesterday, may give second dose as soon as 05/16. paranoid delusions, bizarre, unpredictable responses/attitude. slept 8 hours. continue current mgmt. Reason for continued inpatient stay Substantial Risk for: harm to others and inability to function Time Spent With Patient Time: Total time managing care of this patient today ____ minutes.
[2024-05-12 20:00] VITALS: RESP 16
--- NOTE | 2024-05-13 00:31 | PC.NURSE ---
Sivan declined to take HS scheduled meds, stating I don't want them. I already took them.
[2024-05-13 07:00] VITALS: BMI 36.5
[2024-05-13] MEDS: Nystatin Powder 15 GM BOTTLE 1 APPL TOPICAL (10:26)
[2024-05-13 14:48] LABS: Creatinine Clr Calc Pharmacy 79.1; Estimated Glomerular Filt Rate > 60
--- NOTE | 2024-05-13 15:09 | P.PNPSI_ITS ---
Subjective Subjective Date of Service: 05/13/24 Reason For Visit: schizoaffective disorder Interim History: lying on bed, calm, receptive today. no bizarre statements, irritability, or dismissiveness. states she is feeling fine, has no questions or concerns for MD. per staff, denies dep/anx. refusing all meds except nystatin powder. denying Sx. slept 8 hours. Mental Status Exam Mental Status Exam Narrative: disheveled, hospital attire. cooperative. no PMA/PMR. speech nml rate, decr amount, nml loudness, nml tone, nml latency. thoughts linear in response to questions. affect constricted, normo-intense, non-labile. mood euthymic. no SI/SIBI/HI/AVH expressed. Diagnostics Vital Signs (24Hr): Vital Signs - 24 hr 05/12/24 20:00 Respiratory Rate 16 BMI result Body Mass Index 36.5 Labs 05/06/24 18:36 05/13/24 14:26 Labs: Laboratory Results - last 48 hr 05/13/24 14:26 Creatinine 0.85 Estim Creat Clear Calc 79.1 Estimated GFR > 60 Medications Medications Current Medications Al Hydroxide/Mg Hydroxide (Magnesium Hydrox/Alum Hydrox 30 Ml Oral.Susp) 30 ml PO Q6H PRN PRN Reason: Heartburn/Nausea Benztropine Mesylate (Benztropine Mesylate 1 Mg Tablet) 1 mg PO BID [facility] Last Admin: 05/13/24 09:43 Dose: Not Given Hydroxyzine HCl (Hydroxyzine Hcl 25 Mg Tablet) 25 mg PO Q6H PRN PRN Reason: Anxiety Ibuprofen (Ibuprofen 600 Mg Tablet) 600 mg PO Q4H PRN PRN Reason: moderate to severe pain Magnesium Hydroxide (Milk Of Magnesia 30 Ml Oral.Susp) 30 ml PO DAILY PRN PRN Reason: Constipation Metformin HCl (Metformin Hcl 1,000 Mg Tablet) 1,000 mg PO BID [facility] Last Admin: 05/13/24 09:43 Dose: Not Given Metronidazole (Metronidazole 0.75 % Gel 45 Gm Tube) 1 appl TOPICAL DAILY [facility] Last Admin: 05/13/24 09:43 Dose: Not Given Multi-Ingred Cream/Lotion/Oil/Oint (Mineral Oil/Petrolatum,White 106 Gm Tube) 1 appl TOPICAL BID [facility]; Protocol Last Admin: 05/13/24 09:43 Dose: Not Given Multivitamins/Vitamin C (Multivitamin Tablet) 1 tab PO DAILY [facility] Last Admin: 05/13/24 09:43 Dose: Not Given Nitrofurantoin Macrocrystals (Nitrofurantoin Monohyd/M-Cryst 100 Mg Capsule) 100 mg PO BID [facility] Stop: 05/15/24 10:09 Last Admin: 05/13/24 09:44 Dose: Not Given Nystatin (Nystatin Powder 15 Gm Bottle) 1 appl TOPICAL BID [facility]; Protocol Last Admin: 05/13/24 10:26 Dose: 1 appl Olanzapine (Olanzapine Odt 10 Mg Tab.Rapdis) 10 mg TRANSLINGU BID [facility] Last Admin: 05/13/24 09:44 Dose: Not Given Olanzapine (Olanzapine Odt 10 Mg Tab.Rapdis) 5 mg TRANSLINGU Q4H PRN PRN Reason: agitation Trazodone HCl (Trazodone Hcl 50 Mg Tablet) 50 mg PO BEDTIME MRX1 PRN PRN Reason: Insomnia Vitamin D (Cholecalciferol (Vitamin D3) 10 Mcg Tablet) 10 mcg PO DAILY [facility] Last Admin: 05/13/24 09:43 Dose: Not Given Allergies Allergies Allergy/AdvReac Type Severity Reaction Status Date / Time acetaminophen [From TYLENOL] Allergy Intermediate HIVES Verified 05/06/24 18:28 meperidine [From Demerol] Allergy Unknown Verified 05/06/24 18:28 Assessment & Plan Assessment & Plan (1) Schizoaffective disorder: Qualifiers: Schizoaffective disorder type: bipolar Qualified Code(s): F25.0 - Schizoaffective disorder, bipolar type Status: Acute Code(s): F25.9 - Schizoaffective disorder, unspecified (2) Type 2 diabetes mellitus with hyperglycemia: Status: Acute Code(s): E11.65 - Type 2 diabetes mellitus with hyperglycemia Plan 05/10: pt appears willing to take olanzapine. continue to offer the medication. address medical conditions as pt allows. 05/11: chart reviewed, affirmed [place] from [place] [facility] [place], HCP received. discussed case with HCP Martine Elder ([phone]), who absolutely supported antipsychotic medication for pt and asserted it was her understanding that affirmation from earlier this year was still valid. has no reason to believe otherwise and will not formally invoke HCP again; it is, nevertheless, this life underwriter's opinion that this patient lacks decision-making capacity regarding her mental healthcare at this time and that it is very appropriate to use an alternative decision maker as is being done. invega sustenna 156 mg ordered for now, to repeat in one week, then back to usual maintenance dosing next month. 05/12: received sustenna yesterday, may give second dose as soon as 05/16. paranoid delusions, bizarre, unpredictable responses/attitude. slept 8 hours. continue current mgmt. 05/13: more receptive today, no bizarre statements, aggressiveness, or accusations. slept 8 hours. continue current mgmt. sustenna 156 mg 05/16. Reason for continued inpatient stay Substantial Risk for: harm to others and inability to function Time Spent With Patient Time: Total time managing care of this patient today __25__ minutes.
[2024-05-13 20:00] VITALS: RESP 16
[2024-05-14 08:00] VITALS: RESP 18
--- NOTE | 2024-05-14 14:34 | HO.PSYCHPN ---
Subjective Subjective Date of Service: 05/14/24 Reason For Visit: schizoaffective disorder Interim History: lying in bed, headphones on. childlike voice. denies any problems, has no requests. per staff, refusing meds. wearing headphones. slept 8 hours. Mental Status Exam Mental Status Exam Narrative: disheveled, hospital attire. cooperative. no PMA/PMR. speech nml rate, decr amount, nml loudness, nml tone, nml latency. thoughts linear in response to questions. affect constricted, normo-intense, non-labile. mood euthymic. no SI/SIBI/HI/AVH expressed. Diagnostics Vital Signs (24Hr): Vital Signs - 24 hr 05/13/24 20:00 05/14/24 08:00 Respiratory Rate 16 18 BMI result Body Mass Index 36.5 Labs 05/06/24 18:36 05/13/24 14:26 Labs: Laboratory Results - last 48 hr 05/13/24 14:26 Creatinine 0.85 Estim Creat Clear Calc 79.1 Estimated GFR > 60 Medications Medications Current Medications Al Hydroxide/Mg Hydroxide (Magnesium Hydrox/Alum Hydrox 30 Ml Oral.Susp) 30 ml PO Q6H PRN PRN Reason: Heartburn/Nausea Benztropine Mesylate (Benztropine Mesylate 1 Mg Tablet) 1 mg PO BID [facility] Last Admin: 05/14/24 09:49 Dose: Not Given Hydroxyzine HCl (Hydroxyzine Hcl 25 Mg Tablet) 25 mg PO Q6H PRN PRN Reason: Anxiety Ibuprofen (Ibuprofen 600 Mg Tablet) 600 mg PO Q4H PRN PRN Reason: moderate to severe pain Magnesium Hydroxide (Milk Of Magnesia 30 Ml Oral.Susp) 30 ml PO DAILY PRN PRN Reason: Constipation Metformin HCl (Metformin Hcl 1,000 Mg Tablet) 1,000 mg PO BID [facility] Last Admin: 05/14/24 09:49 Dose: Not Given Metronidazole (Metronidazole 0.75 % Gel 45 Gm Tube) 1 appl TOPICAL DAILY [facility] Last Admin: 05/14/24 09:49 Dose: Not Given Multi-Ingred Cream/Lotion/Oil/Oint (Mineral Oil/Petrolatum,White 106 Gm Tube) 1 appl TOPICAL BID [facility]; Protocol Last Admin: 05/14/24 09:49 Dose: Not Given Multivitamins/Vitamin C (Multivitamin Tablet) 1 tab PO DAILY [facility] Last Admin: 05/14/24 09:49 Dose: Not Given Nitrofurantoin Macrocrystals (Nitrofurantoin Monohyd/M-Cryst 100 Mg Capsule) 100 mg PO BID [facility] Stop: 05/15/24 10:09 Last Admin: 05/14/24 09:50 Dose: Not Given Nystatin (Nystatin Powder 15 Gm Bottle) 1 appl TOPICAL BID [facility]; Protocol Last Admin: 05/14/24 09:50 Dose: Not Given Olanzapine (Olanzapine Odt 10 Mg Tab.Rapdis) 10 mg TRANSLINGU BID [facility] Last Admin: 05/14/24 09:50 Dose: Not Given Olanzapine (Olanzapine Odt 10 Mg Tab.Rapdis) 5 mg TRANSLINGU Q4H PRN PRN Reason: agitation Paliperidone Palmitate (Paliperidone Palmitate 156 Mg/Ml Syringe) 156 mg IM ONCE ONE Stop: 05/16/24 09:01 Trazodone HCl (Trazodone Hcl 50 Mg Tablet) 50 mg PO BEDTIME MRX1 PRN PRN Reason: Insomnia Vitamin D (Cholecalciferol (Vitamin D3) 10 Mcg Tablet) 10 mcg PO DAILY [facility] Last Admin: 05/14/24 09:49 Dose: Not Given Allergies Allergies Allergy/AdvReac Type Severity Reaction Status Date / Time acetaminophen [From TYLENOL] Allergy Intermediate HIVES Verified 05/06/24 18:28 meperidine [From Demerol] Allergy Unknown Verified 05/06/24 18:28 Assessment & Plan Assessment & Plan (1) Schizoaffective disorder: Qualifiers: Schizoaffective disorder type: bipolar Qualified Code(s): F25.0 - Schizoaffective disorder, bipolar type Status: Acute Code(s): F25.9 - Schizoaffective disorder, unspecified (2) Type 2 diabetes mellitus with hyperglycemia: Status: Acute Code(s): E11.65 - Type 2 diabetes mellitus with hyperglycemia Plan 05/10: pt appears willing to take olanzapine. continue to offer the medication. address medical conditions as pt allows. 05/11: chart reviewed, affirmed HCP from prior [facility] [place] stay noted, HCP received. discussed case with HCP Martine Elder ([phone]), who absolutely supported antipsychotic medication for pt and asserted it was her understanding that affirmation from earlier this year was still valid. MD has no reason to believe otherwise and will not formally invoke HCP again; it is, nevertheless, this filing writer's opinion that this patient lacks decision-making capacity regarding her mental healthcare at this time and that it is very appropriate to use an alternative decision maker as is being done. invega sustenna 156 mg ordered for now, to repeat in one week, then back to usual maintenance dosing next month. 05/12: received sustenna yesterday, may give second dose as soon as 05/16. paranoid delusions, bizarre, unpredictable responses/attitude. slept 8 hours. continue current mgmt. 05/13: more receptive today, no bizarre statements, aggressiveness, or accusations. slept 8 hours. continue current mgmt. sustenna 156 mg 05/16. 05/14: as for yesterday. next sustenna 156 mg ordered for 05/16, as per pharmacy recs. continue current mgmt otherwise. Reason for continued inpatient stay Substantial Risk for: harm to self, harm to others and inability to function Time Spent With Patient Time: Total time managing care of this patient today __25__ minutes.
[2024-05-14] MEDS: Nystatin Powder 15 GM BOTTLE 1 APPL TOPICAL (14:35)
[2024-05-14 19:59] VITALS: RESP 18
--- NOTE | 2024-05-15 07:37 | HO.PSYCHPN ---
Subjective Subjective Date of Service: 05/15/24 Reason For Visit: schizoaffective disorder Subjective Notes: Conditional Voluntary Interim History: Pt in bed. She denies any safety concerns and reports is doing well but appears very guarded. She continues to refuse medications. She also denies SI/HI. Review of Systems Review of Systems Noncompliant with psych meds. Inappropriate behavior Yes all other systems are reviewed and are negative Mental Status Exam Mental Status Exam Narrative: disheveled, hospital attire. cooperative. no PMA/PMR. speech nml rate, decr amount, nml loudness, nml tone, nml latency. thoughts linear in response to questions. affect constricted, normo-intense, non-labile. mood euthymic. no SI/SIBI/HI/AVH expressed. Diagnostics Vital Signs (24Hr): Vital Signs - 24 hr 05/14/24 08:00 05/14/24 19:59 Respiratory Rate 18 18 BMI result Body Mass Index 36.5 Labs 05/06/24 18:36 05/13/24 14:26 Labs: Laboratory Results - last 48 hr 05/13/24 14:26 Creatinine 0.85 Estim Creat Clear Calc 79.1 Estimated GFR > 60 Medications Medications Current Medications Al Hydroxide/Mg Hydroxide (Magnesium Hydrox/Alum Hydrox 30 Ml Oral.Susp) 30 ml PO Q6H PRN PRN Reason: Heartburn/Nausea Benztropine Mesylate (Benztropine Mesylate 1 Mg Tablet) 1 mg PO BID [facility] Last Admin: 05/14/24 22:20 Dose: Not Given Hydroxyzine HCl (Hydroxyzine Hcl 25 Mg Tablet) 25 mg PO Q6H PRN PRN Reason: Anxiety Ibuprofen (Ibuprofen 600 Mg Tablet) 600 mg PO Q4H PRN PRN Reason: moderate to severe pain Magnesium Hydroxide (Milk Of Magnesia 30 Ml Oral.Susp) 30 ml PO DAILY PRN PRN Reason: Constipation Metformin HCl (Metformin Hcl 1,000 Mg Tablet) 1,000 mg PO BID [facility] Last Admin: 05/14/24 22:20 Dose: Not Given Metronidazole (Metronidazole 0.75 % Gel 45 Gm Tube) 1 appl TOPICAL DAILY [facility] Last Admin: 05/14/24 09:49 Dose: Not Given Multi-Ingred Cream/Lotion/Oil/Oint (Mineral Oil/Petrolatum,White 106 Gm Tube) 1 appl TOPICAL BID [facility]; Protocol Last Admin: 05/14/24 22:20 Dose: Not Given Multivitamins/Vitamin C (Multivitamin Tablet) 1 tab PO DAILY [facility] Last Admin: 05/14/24 09:49 Dose: Not Given Nitrofurantoin Macrocrystals (Nitrofurantoin Monohyd/M-Cryst 100 Mg Capsule) 100 mg PO BID [facility] Stop: 05/15/24 10:09 Last Admin: 05/14/24 22:21 Dose: Not Given Nystatin (Nystatin Powder 15 Gm Bottle) 1 appl TOPICAL BID [facility]; Protocol Last Admin: 05/14/24 22:21 Dose: Not Given Olanzapine (Olanzapine Odt 10 Mg Tab.Rapdis) 10 mg TRANSLINGU BID [facility] Last Admin: 05/14/24 22:21 Dose: Not Given Olanzapine (Olanzapine Odt 10 Mg Tab.Rapdis) 5 mg TRANSLINGU Q4H PRN PRN Reason: agitation Paliperidone Palmitate (Paliperidone Palmitate 156 Mg/Ml Syringe) 156 mg IM ONCE ONE Stop: 05/16/24 09:01 Trazodone HCl (Trazodone Hcl 50 Mg Tablet) 50 mg PO BEDTIME MRX1 PRN PRN Reason: Insomnia Vitamin D (Cholecalciferol (Vitamin D3) 10 Mcg Tablet) 10 mcg PO DAILY [facility] Last Admin: 05/14/24 09:49 Dose: Not Given Allergies Allergies Allergy/AdvReac Type Severity Reaction Status Date / Time acetaminophen [From TYLENOL] Allergy Intermediate HIVES Verified 05/06/24 18:28 meperidine [From Demerol] Allergy Unknown Verified 05/06/24 18:28 Assessment & Plan Assessment & Plan (1) Schizoaffective disorder: Qualifiers: Schizoaffective disorder type: bipolar Qualified Code(s): F25.0 - Schizoaffective disorder, bipolar type Status: Acute Code(s): F25.9 - Schizoaffective disorder, unspecified (2) Type 2 diabetes mellitus with hyperglycemia: Status: Acute Code(s): E11.65 - Type 2 diabetes mellitus with hyperglycemia Plan 05/10: pt appears willing to take olanzapine. continue to offer the medication. address medical conditions as pt allows. 05/11: chart reviewed, affirmed HCP from prior [facility] [place] stay noted, HCP received. discussed case with HCP Martine Elder ([phone]), who absolutely supported antipsychotic medication for pt and asserted it was her understanding that affirmation from earlier this year was still valid. MD has no reason to believe otherwise and will not formally invoke HCP again; it is, nevertheless, this proposal manager writer's opinion that this patient lacks decision-making capacity regarding her mental healthcare at this time and that it is very appropriate to use an alternative decision maker as is being done. invega sustenna 156 mg ordered for now, to repeat in one week, then back to usual maintenance dosing next month. 05/12: received sustenna yesterday, may give second dose as soon as 05/16. paranoid delusions, bizarre, unpredictable responses/attitude. slept 8 hours. continue current mgmt. 05/13: more receptive today, no bizarre statements, aggressiveness, or accusations. slept 8 hours. continue current mgmt. sustenna 156 mg 05/16. 05/14: as for yesterday. next sustenna 156 mg ordered for 05/16, as per pharmacy recs. continue current mgmt otherwise. 05/15 continue tx. Reason for continued inpatient stay Substantial Risk for: inability to function Time Spent With Patient Time: Total time managing care of this patient today ____ minutes.
[2024-05-15 08:00] VITALS: RESP 18
[2024-05-15] MEDS: Nystatin Powder 15 GM BOTTLE 1 APPL TOPICAL (11:42)
[2024-05-15 20:19] VITALS: RESP 18
[2024-05-16 08:00] VITALS: RESP 18
[2024-05-16] MEDS: Nystatin Powder 15 GM BOTTLE 1 APPL TOPICAL ×2 (09:51→21:00)
--- NOTE | 2024-05-16 09:59 | P.PNPSI_ITS ---
Subjective Subjective Date of Service: 05/16/24 Reason For Visit: schizoaffective disorder Interim History: She reports pain all over, offerred ibuprofen. Pt in bed. She denies any safety concerns and reports is doing well but appears very guarded. She continues to refuse medications. She also denies SI/HI. Review of Systems Review of Systems Noncompliant with psych meds. Inappropriate behavior Yes all other systems are reviewed and are negative Mental Status Exam Mental Status Exam Narrative: improved hygiene, hospital attire. cooperative. no PMA/PMR. speech nml rate, decr amount, nml loudness, nml tone, nml latency. thoughts linear in response to questions. affect constricted, normo-intense, non-labile. mood euthymic. no SI/SIBI/HI/AVH expressed. Diagnostics Vital Signs (24Hr): Vital Signs - 24 hr 05/15/24 20:19 05/16/24 08:00 Respiratory Rate 18 18 BMI result Body Mass Index 36.5 Labs 05/06/24 18:36 05/13/24 14:26 Medications Medications Current Medications Al Hydroxide/Mg Hydroxide (Magnesium Hydrox/Alum Hydrox 30 Ml Oral.Susp) 30 ml PO Q6H PRN PRN Reason: Heartburn/Nausea Benztropine Mesylate (Benztropine Mesylate 1 Mg Tablet) 1 mg PO BID [facility] Last Admin: 05/16/24 08:57 Dose: Not Given Hydroxyzine HCl (Hydroxyzine Hcl 25 Mg Tablet) 25 mg PO Q6H PRN PRN Reason: Anxiety Ibuprofen (Ibuprofen 600 Mg Tablet) 600 mg PO Q4H PRN PRN Reason: moderate to severe pain Magnesium Hydroxide (Milk Of Magnesia 30 Ml Oral.Susp) 30 ml PO DAILY PRN PRN Reason: Constipation Metformin HCl (Metformin Hcl 1,000 Mg Tablet) 1,000 mg PO BID [facility] Last Admin: 05/16/24 08:59 Dose: Not Given Metronidazole (Metronidazole 0.75 % Gel 45 Gm Tube) 1 appl TOPICAL DAILY [facility] Last Admin: 05/16/24 08:59 Dose: Not Given Multi-Ingred Cream/Lotion/Oil/Oint (Mineral Oil/Petrolatum,White 106 Gm Tube) 1 appl TOPICAL BID [facility]; Protocol Last Admin: 05/16/24 08:59 Dose: Not Given Multivitamins/Vitamin C (Multivitamin Tablet) 1 tab PO DAILY [facility] Last Admin: 05/16/24 08:59 Dose: Not Given Nystatin (Nystatin Powder 15 Gm Bottle) 1 appl TOPICAL BID [facility]; Protocol Last Admin: 05/16/24 09:51 Dose: 1 appl Olanzapine (Olanzapine Odt 10 Mg Tab.Rapdis) 10 mg TRANSLINGU BID [facility] Last Admin: 05/16/24 08:59 Dose: Not Given Olanzapine (Olanzapine Odt 10 Mg Tab.Rapdis) 5 mg TRANSLINGU Q4H PRN PRN Reason: agitation Trazodone HCl (Trazodone Hcl 50 Mg Tablet) 50 mg PO BEDTIME MRX1 PRN PRN Reason: Insomnia Vitamin D (Cholecalciferol (Vitamin D3) 10 Mcg Tablet) 10 mcg PO DAILY [facility] Last Admin: 05/16/24 08:57 Dose: Not Given Allergies Allergies Allergy/AdvReac Type Severity Reaction Status Date / Time acetaminophen [From TYLENOL] Allergy Intermediate HIVES Verified 05/06/24 18:28 meperidine [From Demerol] Allergy Unknown Verified 05/06/24 18:28 Assessment & Plan Assessment & Plan (1) Schizoaffective disorder: Qualifiers: Schizoaffective disorder type: bipolar Qualified Code(s): F25.0 - Schizoaffective disorder, bipolar type Status: Acute Code(s): F25.9 - Schizoaffective disorder, unspecified (2) Type 2 diabetes mellitus with hyperglycemia: Status: Acute Code(s): E11.65 - Type 2 diabetes mellitus with hyperglycemia Plan 05/10: pt appears willing to take olanzapine. continue to offer the medication. address medical conditions as pt allows. 05/11: chart reviewed, affirmed HCP from prior [facility] stay noted, HCP received. discussed case with HCP Martine Elder ([phone]), who absolutely supported antipsychotic medication for pt and asserted it was her understanding that affirmation from earlier this year was still valid. has no reason to believe otherwise and will not formally invoke HCP again; it is, nevertheless, this commercial real estate underwriter's opinion that this patient lacks decision-making capacity regarding her mental healthcare at this time and that it is very appropriate to use an alternative decision maker as is being done. invega sustenna 156 mg ordered for now, to repeat in one week, then back to usual maintenance dosing next month. 05/12: received sustenna yesterday, may give second dose as soon as 05/16. paranoid delusions, bizarre, unpredictable responses/attitude. slept 8 hours. continue current mgmt. 05/13: more receptive today, no bizarre statements, aggressiveness, or accusations. slept 8 hours. continue current mgmt. sustenna 156 mg 05/16. 05/14: as for yesterday. next sustenna 156 mg ordered for 05/16, as per pharmacy recs. continue current mgmt otherwise. 05/15 continue tx. 05/16 continue tx. Reason for continued inpatient stay Substantial Risk for: inability to function Time Spent With Patient Time: Total time managing care of this patient today ____ minutes.
[2024-05-16] MEDS: Paliperidone Palmitate 156 MG/ML SYRINGE IM (11:28)
[2024-05-16] MEDS: Ibuprofen 600 MG TABLET PO ×2 (13:02→21:00)
[2024-05-16 20:00] VITALS: RESP 16
--- NOTE | 2024-05-17 10:55 | P.PNPSI_ITS ---
Subjective Subjective Date of Service: 05/17/24 Reason For Visit: schizoaffective disorder Interim History: met with patient; discussed with team pt says she's ok, but that she's in a lot of pain...on further inquiry she says it's her hands, feet, legs and back...says it's been going on for years and would like a motrin. Regarding medications she says she is taking them; inspector automatic typewriter gently challenges saying she has been refusing her zyprexa, however pt says that she's been taking her medications....that said, she did receive Invega sustenna Mental Status Exam Mental Status Exam Narrative: improved hygiene, casual attire, adequately groomed. cooperative. Mood is good and affect congruent, calmer, constricted vs a little blunted; speech nml rate, volume, prosody; not pressured and no latency; thought process, goal oriented, linear, concrete; thought content: does not discuss much; perception: answers questions appropriately; on SI/HI expressed; maybe internally preoccupied. judgment/insight: impaired but improving. Diagnostics Vital Signs (24Hr): Vital Signs - 24 hr 05/16/24 20:00 Respiratory Rate 16 BMI result Body Mass Index 36.5 Labs 05/06/24 18:36 05/13/24 14:26 Medications Medications Current Medications Al Hydroxide/Mg Hydroxide (Magnesium Hydrox/Alum Hydrox 30 Ml Oral.Susp) 30 ml PO Q6H PRN PRN Reason: Heartburn/Nausea Benztropine Mesylate (Benztropine Mesylate 1 Mg Tablet) 1 mg PO BID [facility] Last Admin: 05/17/24 09:19 Dose: Not Given Hydroxyzine HCl (Hydroxyzine Hcl 25 Mg Tablet) 25 mg PO Q6H PRN PRN Reason: Anxiety Ibuprofen (Ibuprofen 600 Mg Tablet) 600 mg PO Q4H PRN PRN Reason: moderate to severe pain Last Admin: 05/16/24 21:00 Dose: 600 mg Magnesium Hydroxide (Milk Of Magnesia 30 Ml Oral.Susp) 30 ml PO DAILY PRN PRN Reason: Constipation Metformin HCl (Metformin Hcl 1,000 Mg Tablet) 1,000 mg PO BID [facility] Last Admin: 05/17/24 09:19 Dose: Not Given Metronidazole (Metronidazole 0.75 % Gel 45 Gm Tube) 1 appl TOPICAL DAILY [facility] Last Admin: 05/17/24 09:19 Dose: Not Given Multi-Ingred Cream/Lotion/Oil/Oint (Mineral Oil/Petrolatum,White 106 Gm Tube) 1 appl TOPICAL BID [facility]; Protocol Last Admin: 05/17/24 09:19 Dose: Not Given Multivitamins/Vitamin C (Multivitamin Tablet) 1 tab PO DAILY [facility] Last Admin: 05/17/24 09:20 Dose: Not Given Nystatin (Nystatin Powder 15 Gm Bottle) 1 appl TOPICAL BID [facility]; Protocol Last Admin: 05/17/24 09:20 Dose: Not Given Olanzapine (Olanzapine Odt 10 Mg Tab.Rapdis) 10 mg TRANSLINGU BID [facility] Last Admin: 05/17/24 09:20 Dose: Not Given Olanzapine (Olanzapine Odt 10 Mg Tab.Rapdis) 5 mg TRANSLINGU Q4H PRN PRN Reason: agitation Trazodone HCl (Trazodone Hcl 50 Mg Tablet) 50 mg PO BEDTIME MRX1 PRN PRN Reason: Insomnia Vitamin D (Cholecalciferol (Vitamin D3) 10 Mcg Tablet) 10 mcg PO DAILY [facility] Last Admin: 05/17/24 09:19 Dose: Not Given Allergies Allergies Allergy/AdvReac Type Severity Reaction Status Date / Time acetaminophen [From TYLENOL] Allergy Intermediate HIVES Verified 05/06/24 18:28 meperidine [From Demerol] Allergy Unknown Verified 05/06/24 18:28 Assessment & Plan Assessment & Plan (1) Schizoaffective disorder: Qualifiers: Schizoaffective disorder type: bipolar Qualified Code(s): F25.0 - Schizoaffective disorder, bipolar type Status: Acute Code(s): F25.9 - Schizoaffective disorder, unspecified (2) Type 2 diabetes mellitus with hyperglycemia: Status: Acute Code(s): E11.65 - Type 2 diabetes mellitus with hyperglycemia Plan 05/10: pt appears willing to take olanzapine. continue to offer the medication. address medical conditions as pt allows. 05/11: chart reviewed, affirmed HCP from prior [facility] stay noted, HCP received. discussed case with HCP Martine Elder ([phone]), who absolutely supported antipsychotic medication for pt and asserted it was her understanding that affirmation from earlier this year was still valid. has no reason to believe otherwise and will not formally invoke HCP again; it is, nevertheless, this inspector automatic typewriter's opinion that this patient lacks decision-making capacity regarding her mental healthcare at this time and that it is very appropriate to use an alternative decision maker as is being done. invega sustenna 156 mg ordered for now, to repeat in one week, then back to usual maintenance dosing next month. 05/12: received sustenna yesterday, may give second dose as soon as 05/16. paranoid delusions, bizarre, unpredictable responses/attitude. slept 8 hours. continue current mgmt. 05/13: more receptive today, no bizarre statements, aggressiveness, or accusations. slept 8 hours. continue current mgmt. sustenna 156 mg 05/16. 05/14: as for yesterday. next sustenna 156 mg ordered for 05/16, as per pharmacy recs. continue current mgmt otherwise. 05/15 continue tx. 05/16 continue tx 05/17 remains delusional and with no insight; regarding medications she says she is taking them; inspector automatic typewriter gently challenges saying she has been refusing her Zyprexa, however pt says that she's been taking her medications.... -she did however take Invega Sustenna 156mg IM (last week) though said it was coffee Patient educated on: diagnosis and medication risk/benefits Informed Consent: understands, does not understand and further education needed Reason for continued inpatient stay Substantial Risk for: inability to function Time Spent With Patient Time: Total time managing care of this patient today ____ minutes.
[2024-05-17] MEDS: Ibuprofen 600 MG TABLET PO ×2 (13:29→20:46)
[2024-05-17 20:00] VITALS: RESP 16; TEMP 36.6
[2024-05-17] MEDS: Nystatin Powder 15 GM BOTTLE 1 APPL TOPICAL (20:47)
[2024-05-18] MEDS: Ibuprofen 600 MG TABLET PO ×2 (11:19→20:25)
--- NOTE | 2024-05-18 17:52 | P.PNPSI_ITS ---
Subjective Subjective Date of Service: 05/18/24 Reason For Visit: schizoaffective disorder Interim History: met with patient; discussed with team she says she's a little depressed but denies any SI; she denies any AH. She kept answers short but procedure writer could not solicit paranoid delusions. Mental Status Exam Mental Status Exam Narrative: improved hygiene, casual attire, adequately groomed. cooperative. Mood is good and affect congruent, calmer, constricted vs a little blunted; speech nml rate, volume, prosody; not pressured and no latency; thought process, goal oriented, linear, concrete; thought content: does not discuss much; perception: answers questions appropriately; on SI/HI expressed; maybe internally preoccupied. judgment/insight: impaired but improving. Diagnostics Vital Signs (24Hr): Vital Signs - 24 hr 05/17/24 20:00 Temperature 97.8 F Respiratory Rate 16 BMI result Body Mass Index 36.5 Labs 05/06/24 18:36 05/20/24 08:27 Medications Medications Current Medications Al Hydroxide/Mg Hydroxide (Magnesium Hydrox/Alum Hydrox 30 Ml Oral.Susp) 30 ml PO Q6H PRN PRN Reason: Heartburn/Nausea Benztropine Mesylate (Benztropine Mesylate 1 Mg Tablet) 1 mg PO BID [facility] Last Admin: 05/18/24 08:32 Dose: Not Given Hydroxyzine HCl (Hydroxyzine Hcl 25 Mg Tablet) 25 mg PO Q6H PRN PRN Reason: Anxiety Ibuprofen (Ibuprofen 600 Mg Tablet) 600 mg PO Q4H PRN PRN Reason: moderate to severe pain Last Admin: 05/18/24 11:19 Dose: 600 mg Magnesium Hydroxide (Milk Of Magnesia 30 Ml Oral.Susp) 30 ml PO DAILY PRN PRN Reason: Constipation Metformin HCl (Metformin Hcl 1,000 Mg Tablet) 1,000 mg PO BID [facility] Last Admin: 05/18/24 08:32 Dose: Not Given Metronidazole (Metronidazole 0.75 % Gel 45 Gm Tube) 1 appl TOPICAL DAILY [facility] Last Admin: 05/18/24 08:32 Dose: Not Given Multi-Ingred Cream/Lotion/Oil/Oint (Mineral Oil/Petrolatum,White 106 Gm Tube) 1 appl TOPICAL BID [facility]; Protocol Last Admin: 05/18/24 08:32 Dose: Not Given Multivitamins/Vitamin C (Multivitamin Tablet) 1 tab PO DAILY [facility] Last Admin: 05/18/24 08:32 Dose: Not Given Nystatin (Nystatin Powder 15 Gm Bottle) 1 appl TOPICAL BID [facility]; Protocol Last Admin: 05/18/24 08:32 Dose: Not Given Olanzapine (Olanzapine Odt 10 Mg Tab.Rapdis) 10 mg TRANSLINGU BID [facility] Last Admin: 05/18/24 08:32 Dose: Not Given Olanzapine (Olanzapine Odt 10 Mg Tab.Rapdis) 5 mg TRANSLINGU Q4H PRN PRN Reason: agitation Trazodone HCl (Trazodone Hcl 50 Mg Tablet) 50 mg PO BEDTIME MRX1 PRN PRN Reason: Insomnia Vitamin D (Cholecalciferol (Vitamin D3) 10 Mcg Tablet) 10 mcg PO DAILY [facility] Last Admin: 05/18/24 08:32 Dose: Not Given Allergies Allergies Allergy/AdvReac Type Severity Reaction Status Date / Time acetaminophen [From TYLENOL] Allergy Intermediate HIVES Verified 05/06/24 18:28 meperidine [From Demerol] Allergy Unknown Verified 05/06/24 18:28 Assessment & Plan Assessment & Plan (1) Schizoaffective disorder: Qualifiers: Schizoaffective disorder type: bipolar Qualified Code(s): F25.0 - Schizoaffective disorder, bipolar type Status: Acute Code(s): F25.9 - Schizoaffective disorder, unspecified (2) Type 2 diabetes mellitus with hyperglycemia: Status: Acute Code(s): E11.65 - Type 2 diabetes mellitus with hyperglycemia Plan 05/10: pt appears willing to take olanzapine. continue to offer the medication. address medical conditions as pt allows. 05/11: chart reviewed, affirmed HCP from prior [facility] [place] stay noted, HCP received. discussed case with HCP Martine Elder ([phone]), who absolutely supported antipsychotic medication for pt and asserted it was her understanding that affirmation from earlier this year was still valid. has no reason to believe otherwise and will not formally invoke HCP again; it is, nevertheless, this procedure writer's opinion that this patient lacks decision-making capacity regarding her mental healthcare at this time and that it is very appropriate to use an alternative decision maker as is being done. invega sustenna 156 mg ordered for now, to repeat in one week, then back to usual maintenance dosing next month. 05/12: received sustenna yesterday, may give second dose as soon as 05/16. paranoid delusions, bizarre, unpredictable responses/attitude. slept 8 hours. continue current mgmt. 05/13: more receptive today, no bizarre statements, aggressiveness, or accusations. slept 8 hours. continue current mgmt. sustenna 156 mg 05/16. 05/14: as for yesterday. next sustenna 156 mg ordered for 05/16, as per pharmacy recs. continue current mgmt otherwise. 05/15 continue tx. 05/16 continue tx 05/17 remains delusional and with no insight; regarding medications she says she is taking them; procedure writer gently challenges saying she has been refusing her Zyprexa, however pt says that she's been taking her medications.... -she did however take Invega Sustenna 156mg IM (last week) though said it was coffee Patient educated on: diagnosis Informed Consent: further education needed Reason for continued inpatient stay Substantial Risk for: rapid decompensation Time Spent With Patient Time: Total time managing care of this patient today ____ minutes.
[2024-05-18 20:00] VITALS: RESP 16
[2024-05-18] MEDS: Nystatin Powder 15 GM BOTTLE 1 APPL TOPICAL (20:41)
[2024-05-19] MEDS: Ibuprofen 600 MG TABLET PO ×3 (08:46→19:22)
[2024-05-19] MEDS: Nystatin Powder 15 GM BOTTLE 1 APPL TOPICAL (08:48)
--- NOTE | 2024-05-19 10:36 | P.PNPSI_ITS ---
Subjective Subjective Date of Service: 05/19/24 Reason For Visit: schizoaffective disorder Subjective Notes: Conditional Voluntary Interim History: Attempted to see the patient but was discussed in rounds today. Records and plans were reviewed. She refused to meet, ?get out of here I do not want to talk to anyone?. She has been taking her medications selectively. She is in bed a lot. Reports of auditory hallucinations of music. Eating and sleeping adequately. Review of Systems Review of Systems Yes Unobtainable due to mental status Mental Status Exam Mental Status Exam Narrative: Unable to examine. Irritable and angry Diagnostics Vital Signs (24Hr): Vital Signs - 24 hr 05/18/24 20:00 Respiratory Rate 16 BMI result Body Mass Index 36.5 Labs 05/06/24 18:36 05/13/24 14:26 Medications Medications Current Medications Al Hydroxide/Mg Hydroxide (Magnesium Hydrox/Alum Hydrox 30 Ml Oral.Susp) 30 ml PO Q6H PRN PRN Reason: Heartburn/Nausea Benztropine Mesylate (Benztropine Mesylate 1 Mg Tablet) 1 mg PO BID [facility] Last Admin: 05/19/24 08:50 Dose: Not Given Hydroxyzine HCl (Hydroxyzine Hcl 25 Mg Tablet) 25 mg PO Q6H PRN PRN Reason: Anxiety Ibuprofen (Ibuprofen 600 Mg Tablet) 600 mg PO Q4H PRN PRN Reason: moderate to severe pain Last Admin: 05/19/24 08:46 Dose: 600 mg Magnesium Hydroxide (Milk Of Magnesia 30 Ml Oral.Susp) 30 ml PO DAILY PRN PRN Reason: Constipation Metformin HCl (Metformin Hcl 1,000 Mg Tablet) 1,000 mg PO BID [facility] Last Admin: 05/19/24 08:52 Dose: Not Given Metronidazole (Metronidazole 0.75 % Gel 45 Gm Tube) 1 appl TOPICAL DAILY [facility] Last Admin: 05/19/24 08:52 Dose: Not Given Multi-Ingred Cream/Lotion/Oil/Oint (Mineral Oil/Petrolatum,White 106 Gm Tube) 1 appl TOPICAL BID [facility]; Protocol Last Admin: 05/19/24 08:52 Dose: Not Given Multivitamins/Vitamin C (Multivitamin Tablet) 1 tab PO DAILY [facility] Last Admin: 05/19/24 08:52 Dose: Not Given Nystatin (Nystatin Powder 15 Gm Bottle) 1 appl TOPICAL BID [facility]; Protocol Last Admin: 05/19/24 08:48 Dose: 1 appl Olanzapine (Olanzapine Odt 10 Mg Tab.Rapdis) 10 mg TRANSLINGU BID [facility] Last Admin: 05/19/24 09:47 Dose: Not Given Olanzapine (Olanzapine Odt 10 Mg Tab.Rapdis) 5 mg TRANSLINGU Q4H PRN PRN Reason: agitation Trazodone HCl (Trazodone Hcl 50 Mg Tablet) 50 mg PO BEDTIME MRX1 PRN PRN Reason: Insomnia Vitamin D (Cholecalciferol (Vitamin D3) 10 Mcg Tablet) 10 mcg PO DAILY [facility] Last Admin: 05/19/24 08:52 Dose: Not Given Allergies Allergies Allergy/AdvReac Type Severity Reaction Status Date / Time acetaminophen [From TYLENOL] Allergy Intermediate HIVES Verified 05/06/24 18:28 meperidine [From Demerol] Allergy Unknown Verified 05/06/24 18:28 Assessment & Plan Assessment & Plan (1) Schizoaffective disorder: Qualifiers: Schizoaffective disorder type: bipolar Qualified Code(s): F25.0 - Schizoaffective disorder, bipolar type Status: Acute Code(s): F25.9 - Schizoaffective disorder, unspecified (2) Type 2 diabetes mellitus with hyperglycemia: Status: Acute Code(s): E11.65 - Type 2 diabetes mellitus with hyperglycemia Plan 05/10: pt appears willing to take olanzapine. continue to offer the medication. address medical conditions as pt allows. 05/11: chart reviewed, affirmed HCP from prior [facility] [place] stay noted, HCP received. discussed case with HCP Martine Elder ([phone]), who absolutely supported antipsychotic medication for pt and asserted it was her understanding that affirmation from earlier this year was still valid. has no reason to believe otherwise and will not formally invoke HCP again; it is, nevertheless, this check writer's opinion that this patient lacks decision-making capacity regarding her mental healthcare at this time and that it is very appropriate to use an alternative decision maker as is being done. invega sustenna 156 mg ordered for now, to repeat in one week, then back to usual maintenance dosing next month. 05/12: received sustenna yesterday, may give second dose as soon as 05/16. paranoid delusions, bizarre, unpredictable responses/attitude. slept 8 hours. continue current mgmt. 05/13: more receptive today, no bizarre statements, aggressiveness, or accusations. slept 8 hours. continue current mgmt. sustenna 156 mg 05/16. 05/14: as for yesterday. next sustenna 156 mg ordered for 05/16, as per pharmacy recs. continue current mgmt otherwise. 05/15 continue tx. 05/16 continue tx 05/17 remains delusional and with no insight; regarding medications she says she is taking them; check writer gently challenges saying she has been refusing her Zyprexa, however pt says that she's been taking her medications.... -she did however take Invega Sustenna 156mg IM (last week) though said it was coffee 05/19: Continue current regimen and plans Reason for continued inpatient stay Substantial Risk for: inability to function and med/psych decompensation Time Spent With Patient Time: Total time managing care of this patient today ____ minutes.
[2024-05-19 20:10] VITALS: RESP 16
[2024-05-20 08:00] VITALS: RESP 18
[2024-05-20 08:56] LABS: Estimated Glomerular Filt Rate > 60
[2024-05-20] MEDS: Ibuprofen 600 MG TABLET PO ×2 (09:14→22:55)
--- NOTE | 2024-05-20 15:18 | P.PNPSI_ITS ---
Subjective Subjective Date of Service: 05/20/24 Reason For Visit: schizoaffective disorder Interim History: lying in bed, alert, pleasant. you're not a doctor. you're my son. no complaints or requests. per staff, +AH. listening to music. visible, refusing meds. delusional. pleasant. slept 5-6 hours. Mental Status Exam Mental Status Exam Narrative: adequately dressed and groomed, in own clothes. cooperative. no PMA/PMR. speech nml rate, decr amount, nml loudness, nml tone, nml latency. thoughts linear in response to questions. delusional. affect constricted, normo- intense, non-labile. mood euthymic. no SI/SIBI/HI/AVH expressed. Diagnostics Vital Signs (24Hr): Vital Signs - 24 hr 05/19/24 20:10 05/20/24 08:00 Respiratory Rate 16 18 BMI result Body Mass Index 36.5 Labs 05/06/24 18:36 05/20/24 08:27 Labs: Laboratory Results - last 48 hr 05/20/24 08:27 Creatinine 0.81 Estim Creat Clear Calc 83.0 Estimated GFR > 60 Medications Medications Current Medications Al Hydroxide/Mg Hydroxide (Magnesium Hydrox/Alum Hydrox 30 Ml Oral.Susp) 30 ml PO Q6H PRN PRN Reason: Heartburn/Nausea Benztropine Mesylate (Benztropine Mesylate 1 Mg Tablet) 1 mg PO BID [facility] Last Admin: 05/20/24 09:27 Dose: Not Given Hydroxyzine HCl (Hydroxyzine Hcl 25 Mg Tablet) 25 mg PO Q6H PRN PRN Reason: Anxiety Ibuprofen (Ibuprofen 600 Mg Tablet) 600 mg PO Q4H PRN PRN Reason: moderate to severe pain Last Admin: 05/20/24 09:14 Dose: 600 mg Magnesium Hydroxide (Milk Of Magnesia 30 Ml Oral.Susp) 30 ml PO DAILY PRN PRN Reason: Constipation Metformin HCl (Metformin Hcl 1,000 Mg Tablet) 1,000 mg PO BID [facility] Last Admin: 05/20/24 09:27 Dose: Not Given Metronidazole (Metronidazole 0.75 % Gel 45 Gm Tube) 1 appl TOPICAL DAILY [facility] Last Admin: 05/20/24 09:27 Dose: Not Given Multi-Ingred Cream/Lotion/Oil/Oint (Mineral Oil/Petrolatum,White 106 Gm Tube) 1 appl TOPICAL BID [facility]; Protocol Last Admin: 05/20/24 09:27 Dose: Not Given Multivitamins/Vitamin C (Multivitamin Tablet) 1 tab PO DAILY [facility] Last Admin: 05/20/24 09:27 Dose: Not Given Nystatin (Nystatin Powder 15 Gm Bottle) 1 appl TOPICAL BID [facility]; Protocol Last Admin: 05/20/24 09:27 Dose: Not Given Olanzapine (Olanzapine Odt 10 Mg Tab.Rapdis) 10 mg TRANSLINGU BID [facility] Last Admin: 05/20/24 09:27 Dose: Not Given Olanzapine (Olanzapine Odt 10 Mg Tab.Rapdis) 5 mg TRANSLINGU Q4H PRN PRN Reason: agitation Trazodone HCl (Trazodone Hcl 50 Mg Tablet) 50 mg PO BEDTIME MRX1 PRN PRN Reason: Insomnia Vitamin D (Cholecalciferol (Vitamin D3) 10 Mcg Tablet) 10 mcg PO DAILY [facility] Last Admin: 05/20/24 09:27 Dose: Not Given Allergies Allergies Allergy/AdvReac Type Severity Reaction Status Date / Time acetaminophen [From TYLENOL] Allergy Intermediate HIVES Verified 05/06/24 18:28 meperidine [From Demerol] Allergy Unknown Verified 05/06/24 18:28 Assessment & Plan Assessment & Plan (1) Schizoaffective disorder: Qualifiers: Schizoaffective disorder type: bipolar Qualified Code(s): F25.0 - Schizoaffective disorder, bipolar type Status: Acute Code(s): F25.9 - Schizoaffective disorder, unspecified (2) Type 2 diabetes mellitus with hyperglycemia: Status: Acute Code(s): E11.65 - Type 2 diabetes mellitus with hyperglycemia Plan 05/10: pt appears willing to take olanzapine. continue to offer the medication. address medical conditions as pt allows. 05/11: chart reviewed, affirmed HCP from prior [facility] [place] noted, HCP received. discussed case with HCP Martine Elder ([phone]), who absolutely supported antipsychotic medication for pt and asserted it was her understanding that affirmation from earlier this year was still valid. has no reason to believe otherwise and will not formally invoke HCP again; it is, nevertheless, this report writer's opinion that this patient lacks decision-making capacity regarding her mental healthcare at this time and that it is very appropriate to use an alternative decision maker as is being done. invega sustenna 156 mg ordered for now, to repeat in one week, then back to usual maintenance dosing next month. 05/12: received sustenna yesterday, may give second dose as soon as 05/16. paranoid delusions, bizarre, unpredictable responses/attitude. slept 8 hours. continue current mgmt. 05/13: more receptive today, no bizarre statements, aggressiveness, or accusations. slept 8 hours. continue current mgmt. sustenna 156 mg 05/16. 05/14: as for yesterday. next sustenna 156 mg ordered for 05/16, as per pharmacy recs. continue current mgmt otherwise. 05/15 continue tx. 05/16 continue tx 05/17 remains delusional and with no insight; regarding medications she says she is taking them; report writer gently challenges saying she has been refusing her Zyprexa, however pt says that she's been taking her medications.... -she did however take Invega Sustenna 156mg IM (last week) though said it was coffee 05/19: Continue current regimen and plans 05/20: no change in presentation. continue current mgmt. Reason for continued inpatient stay Substantial Risk for: inability to function and rapid decompensation Time Spent With Patient Time: Total time managing care of this patient today ____ minutes.
[2024-05-20 21:07] VITALS: RESP 16
[2024-05-21] MEDS: Ibuprofen 600 MG TABLET PO ×2 (03:51→21:21)
[2024-05-21 08:00] VITALS: RESP 18
--- NOTE | 2024-05-21 12:27 | HO.PSYCHPN ---
Subjective Subjective Date of Service: 05/21/24 Reason For Visit: schizoaffective disorder Interim History: lying in bed asleep, rousable. shaking head, does say no at one point, otherwise mute. no questions or complaints. per staff, blunted. refusing meds, VS. eating. no sleep last night. sitting in common area through the night. Mental Status Exam Mental Status Exam Narrative: adequately dressed and groomed, in own clothes. cooperative. no PMA/PMR. speech nml rate, decr amount, decr loudness, nml tone, incr latency. thoughts linear in response to questions. affect constricted, normo-intense, non-labile. mood not assessed. no SI/SIBI/HI/AVH expressed. Diagnostics Vital Signs (24Hr): Vital Signs - 24 hr 05/20/24 21:07 05/21/24 08:00 Respiratory Rate 16 18 BMI result Body Mass Index 36.5 Labs 05/06/24 18:36 05/20/24 08:27 Labs: Laboratory Results - last 48 hr 05/20/24 08:27 Creatinine 0.81 Estim Creat Clear Calc 83.0 Estimated GFR > 60 Medications Medications Current Medications Al Hydroxide/Mg Hydroxide (Magnesium Hydrox/Alum Hydrox 30 Ml Oral.Susp) 30 ml PO Q6H PRN PRN Reason: Heartburn/Nausea Benztropine Mesylate (Benztropine Mesylate 1 Mg Tablet) 1 mg PO BID [facility] Last Admin: 05/21/24 08:41 Dose: Not Given Hydroxyzine HCl (Hydroxyzine Hcl 25 Mg Tablet) 25 mg PO Q6H PRN PRN Reason: Anxiety Ibuprofen (Ibuprofen 600 Mg Tablet) 600 mg PO Q4H PRN PRN Reason: moderate to severe pain Last Admin: 05/21/24 03:51 Dose: 600 mg Magnesium Hydroxide (Milk Of Magnesia 30 Ml Oral.Susp) 30 ml PO DAILY PRN PRN Reason: Constipation Metformin HCl (Metformin Hcl 1,000 Mg Tablet) 1,000 mg PO BID [facility] Last Admin: 05/21/24 08:41 Dose: Not Given Metronidazole (Metronidazole 0.75 % Gel 45 Gm Tube) 1 appl TOPICAL DAILY [facility] Last Admin: 05/21/24 08:41 Dose: Not Given Multi-Ingred Cream/Lotion/Oil/Oint (Mineral Oil/Petrolatum,White 106 Gm Tube) 1 appl TOPICAL BID [facility]; Protocol Last Admin: 05/21/24 08:41 Dose: Not Given Multivitamins/Vitamin C (Multivitamin Tablet) 1 tab PO DAILY [facility] Last Admin: 05/21/24 08:41 Dose: Not Given Nystatin (Nystatin Powder 15 Gm Bottle) 1 appl TOPICAL BID [facility]; Protocol Last Admin: 05/21/24 08:41 Dose: Not Given Olanzapine (Olanzapine Odt 10 Mg Tab.Rapdis) 10 mg TRANSLINGU BID [facility] Last Admin: 05/21/24 08:41 Dose: Not Given Olanzapine (Olanzapine Odt 10 Mg Tab.Rapdis) 5 mg TRANSLINGU Q4H PRN PRN Reason: agitation Trazodone HCl (Trazodone Hcl 50 Mg Tablet) 50 mg PO BEDTIME MRX1 PRN PRN Reason: Insomnia Vitamin D (Cholecalciferol (Vitamin D3) 10 Mcg Tablet) 10 mcg PO DAILY [facility] Last Admin: 05/21/24 08:41 Dose: Not Given Allergies Allergies Allergy/AdvReac Type Severity Reaction Status Date / Time acetaminophen [From TYLENOL] Allergy Intermediate HIVES Verified 05/06/24 18:28 meperidine [From Demerol] Allergy Unknown Verified 05/06/24 18:28 Assessment & Plan Assessment & Plan (1) Schizoaffective disorder: Qualifiers: Schizoaffective disorder type: bipolar Qualified Code(s): F25.0 - Schizoaffective disorder, bipolar type Status: Acute Code(s): F25.9 - Schizoaffective disorder, unspecified (2) Type 2 diabetes mellitus with hyperglycemia: Status: Acute Code(s): E11.65 - Type 2 diabetes mellitus with hyperglycemia Plan 05/10: pt appears willing to take olanzapine. continue to offer the medication. address medical conditions as pt allows. 05/11: chart reviewed, affirmed HCP from prior [facility] [place] stay noted, HCP received. discussed case with HCP Martine Elder ([phone]), who absolutely supported antipsychotic medication for pt and asserted it was her understanding that affirmation from earlier this year was still valid. has no reason to believe otherwise and will not formally invoke HCP again; it is, nevertheless, this designer/writer's opinion that this patient lacks decision-making capacity regarding her mental healthcare at this time and that it is very appropriate to use an alternative decision maker as is being done. invega sustenna 156 mg ordered for now, to repeat in one week, then back to usual maintenance dosing next month. 05/12: received sustenna yesterday, may give second dose as soon as 05/16. paranoid delusions, bizarre, unpredictable responses/attitude. slept 8 hours. continue current mgmt. 05/13: more receptive today, no bizarre statements, aggressiveness, or accusations. slept 8 hours. continue current mgmt. sustenna 156 mg 05/16. 05/14: as for yesterday. next sustenna 156 mg ordered for 05/16, as per pharmacy recs. continue current mgmt otherwise. 05/15 continue tx. 05/16 continue tx 05/17 remains delusional and with no insight; regarding medications she says she is taking them; designer/writer gently challenges saying she has been refusing her Zyprexa, however pt says that she's been taking her medications.... -she did however take Invega Sustenna 156mg IM (last week) though said it was coffee 05/19: Continue current regimen and plans 05/20: no change in presentation. continue current mgmt. Reason for continued inpatient stay Substantial Risk for: inability to function Time Spent With Patient Time: Total time managing care of this patient today ____ minutes.
[2024-05-21 20:00] VITALS: RESP 16
[2024-05-21] MEDS: Nystatin Powder 15 GM BOTTLE 1 APPL TOPICAL (21:24)
[2024-05-22] MEDS: Ibuprofen 600 MG TABLET PO ×3 (09:52→20:13)
--- NOTE | 2024-05-22 10:35 | P.PNPSI_ITS ---
Subjective Subjective Date of Service: 05/22/24 Reason For Visit: schizoaffective disorder Interim History: Patient seen and discussed. Patient was irritable and refused to meet with this bid writer. When this bid writer introduced himself patient loudly answered no you're not the doctor.. and walked away. RN tells this bid writer patient also told her she is not the nurse. She was noted by staff to be making swatting movements towards people and hissing like a cat. Patient is adherent to medications. Review of Systems Review of Systems Noncompliant with psych meds. Inappropriate behavior Yes all other systems are reviewed and are negative and Unobtainable due to mental status Mental Status Exam Mental Status Exam Narrative: adequately dressed and groomed, in own clothes. cooperative. no PMA/PMR. speech nml rate, decr amount, decr loudness, nml tone, incr latency. thoughts linear in response to questions. affect constricted, normo-intense, non-labile. mood not assessed. no SI/SIBI/HI/AVH expressed. Patient Appearance: Unkempt and Malodorous Patient Orientation: Person Level of Consciousness: Awake Patient Behavior: Guarded and Suspicious Mood Description: Calm Affect Description: Blunted Ability to Follow Directions: Poor Speech Pattern: Clear Diagnostics Vital Signs (24Hr): Vital Signs - 24 hr 05/21/24 20:00 Respiratory Rate 16 BMI result Body Mass Index 36.5 Labs 05/06/24 18:36 05/20/24 08:27 Medications Medications Current Medications Al Hydroxide/Mg Hydroxide (Magnesium Hydrox/Alum Hydrox 30 Ml Oral.Susp) 30 ml PO Q6H PRN PRN Reason: Heartburn/Nausea Benztropine Mesylate (Benztropine Mesylate 1 Mg Tablet) 1 mg PO BID [facility] Last Admin: 05/22/24 09:54 Dose: Not Given Hydroxyzine HCl (Hydroxyzine Hcl 25 Mg Tablet) 25 mg PO Q6H PRN PRN Reason: Anxiety Ibuprofen (Ibuprofen 600 Mg Tablet) 600 mg PO Q4H PRN PRN Reason: moderate to severe pain Last Admin: 05/22/24 09:52 Dose: 600 mg Magnesium Hydroxide (Milk Of Magnesia 30 Ml Oral.Susp) 30 ml PO DAILY PRN PRN Reason: Constipation Metformin HCl (Metformin Hcl 1,000 Mg Tablet) 1,000 mg PO BID [facility] Last Admin: 05/22/24 09:54 Dose: Not Given Metronidazole (Metronidazole 0.75 % Gel 45 Gm Tube) 1 appl TOPICAL DAILY [facility] Last Admin: 05/22/24 09:54 Dose: Not Given Multi-Ingred Cream/Lotion/Oil/Oint (Mineral Oil/Petrolatum,White 106 Gm Tube) 1 appl TOPICAL BID [facility]; Protocol Last Admin: 05/22/24 09:54 Dose: Not Given Multivitamins/Vitamin C (Multivitamin Tablet) 1 tab PO DAILY [facility] Last Admin: 05/22/24 09:54 Dose: Not Given Nystatin (Nystatin Powder 15 Gm Bottle) 1 appl TOPICAL BID [facility]; Protocol Last Admin: 05/22/24 09:55 Dose: Not Given Olanzapine (Olanzapine Odt 10 Mg Tab.Rapdis) 10 mg TRANSLINGU BID [facility] Last Admin: 05/22/24 09:55 Dose: Not Given Olanzapine (Olanzapine Odt 10 Mg Tab.Rapdis) 5 mg TRANSLINGU Q4H PRN PRN Reason: agitation Trazodone HCl (Trazodone Hcl 50 Mg Tablet) 50 mg PO BEDTIME MRX1 PRN PRN Reason: Insomnia Vitamin D (Cholecalciferol (Vitamin D3) 10 Mcg Tablet) 10 mcg PO DAILY [facility] Last Admin: 05/22/24 09:54 Dose: Not Given Allergies Allergies Allergy/AdvReac Type Severity Reaction Status Date / Time acetaminophen [From TYLENOL] Allergy Intermediate HIVES Verified 05/06/24 18:28 meperidine [From Demerol] Allergy Unknown Verified 05/06/24 18:28 Assessment & Plan Assessment & Plan (1) Schizoaffective disorder: Qualifiers: Schizoaffective disorder type: bipolar Qualified Code(s): F25.0 - Schizoaffective disorder, bipolar type Status: Acute Code(s): F25.9 - Schizoaffective disorder, unspecified (2) Type 2 diabetes mellitus with hyperglycemia: Status: Acute Code(s): E11.65 - Type 2 diabetes mellitus with hyperglycemia Plan 05/10: pt appears willing to take olanzapine. continue to offer the medication. address medical conditions as pt allows. 05/11: chart reviewed, affirmed HCP from prior [facility] [place] stay noted, HCP received. discussed case with HCP Martine Elder ([phone]), who absolutely supported antipsychotic medication for pt and asserted it was her understanding that affirmation from earlier this year was still valid. has no reason to believe otherwise and will not formally invoke HCP again; it is, nevertheless, this bid writer's opinion that this patient lacks decision-making capacity regarding her mental healthcare at this time and that it is very appropriate to use an alternative decision maker as is being done. invega sustenna 156 mg ordered for now, to repeat in one week, then back to usual maintenance dosing next month. 05/12: received sustenna yesterday, may give second dose as soon as 05/16. paranoid delusions, bizarre, unpredictable responses/attitude. slept 8 hours. continue current mgmt. 05/13: more receptive today, no bizarre statements, aggressiveness, or accusations. slept 8 hours. continue current mgmt. sustenna 156 mg 05/16. 05/14: as for yesterday. next sustenna 156 mg ordered for 05/16, as per pharmacy recs. continue current mgmt otherwise. 05/15 continue tx. 05/16 continue tx 05/17 remains delusional and with no insight; regarding medications she says she is taking them; bid writer gently challenges saying she has been refusing her Zyprexa, however pt says that she's been taking her medications.... -she did however take Invega Sustenna 156mg IM (last week) though said it was coffee 05/19: Continue current regimen and plans 05/20: no change in presentation. continue current mgmt. 05/22: Continue current management and treatment plan. Reason for continued inpatient stay Substantial Risk for: inability to function and rapid decompensation Time Spent With Patient Time: Total time managing care of this patient today ____ minutes.
[2024-05-22 20:00] VITALS: RESP 16
[2024-05-22] MEDS: Nystatin Powder 15 GM BOTTLE 1 APPL TOPICAL (20:14)
--- NOTE | 2024-05-23 09:57 | P.PNPSI_ITS ---
Subjective Subjective Date of Service: 05/23/24 Reason For Visit: schizoaffective disorder Interim History: Patient seen and discussed. Patient continued to refuse to speak with this examiner. Patient remains delusional and paranoid. She was irritable with the nursing staff as well and swore at one of them. No physical aggression. Appears to be responding to IS at times per reports. Refusing medications on flow sheet review. Review of Systems Review of Systems Noncompliant with psych meds. Inappropriate behavior Yes all other systems are reviewed and are negative and Unobtainable due to mental status Mental Status Exam Mental Status Exam Narrative: adequately dressed and groomed, in own clothes. cooperative. no PMA/PMR. speech nml rate, decr amount, decr loudness, nml tone, incr latency. thoughts linear in response to questions. affect constricted, normo-intense, non-labile. mood not assessed. no SI/SIBI/HI/AVH expressed. Patient Appearance: Unkempt and Malodorous Patient Orientation: Person Level of Consciousness: Awake Patient Behavior: Guarded and Suspicious Mood Description: Calm Affect Description: Blunted Ability to Follow Directions: Poor Speech Pattern: Clear Diagnostics Vital Signs (24Hr): Vital Signs - 24 hr 05/22/24 20:00 Respiratory Rate 16 BMI result Body Mass Index 36.5 Labs 05/06/24 18:36 05/20/24 08:27 Medications Medications Current Medications Al Hydroxide/Mg Hydroxide (Magnesium Hydrox/Alum Hydrox 30 Ml Oral.Susp) 30 ml PO Q6H PRN PRN Reason: Heartburn/Nausea Benztropine Mesylate (Benztropine Mesylate 1 Mg Tablet) 1 mg PO BID [facility] Last Admin: 05/23/24 09:08 Dose: Not Given Hydroxyzine HCl (Hydroxyzine Hcl 25 Mg Tablet) 25 mg PO Q6H PRN PRN Reason: Anxiety Ibuprofen (Ibuprofen 600 Mg Tablet) 600 mg PO Q4H PRN PRN Reason: moderate to severe pain Last Admin: 05/22/24 20:13 Dose: 600 mg Magnesium Hydroxide (Milk Of Magnesia 30 Ml Oral.Susp) 30 ml PO DAILY PRN PRN Reason: Constipation Metformin HCl (Metformin Hcl 1,000 Mg Tablet) 1,000 mg PO BID [facility] Last Admin: 05/23/24 09:08 Dose: Not Given Metronidazole (Metronidazole 0.75 % Gel 45 Gm Tube) 1 appl TOPICAL DAILY [facility] Last Admin: 05/23/24 09:08 Dose: Not Given Multi-Ingred Cream/Lotion/Oil/Oint (Mineral Oil/Petrolatum,White 106 Gm Tube) 1 appl TOPICAL BID [facility]; Protocol Last Admin: 05/23/24 09:08 Dose: Not Given Multivitamins/Vitamin C (Multivitamin Tablet) 1 tab PO DAILY [facility] Last Admin: 05/23/24 09:08 Dose: Not Given Nystatin (Nystatin Powder 15 Gm Bottle) 1 appl TOPICAL BID [facility]; Protocol Last Admin: 05/23/24 09:09 Dose: Not Given Olanzapine (Olanzapine Odt 10 Mg Tab.Rapdis) 10 mg TRANSLINGU BID [facility] Last Admin: 05/23/24 09:09 Dose: Not Given Olanzapine (Olanzapine Odt 10 Mg Tab.Rapdis) 5 mg TRANSLINGU Q4H PRN PRN Reason: agitation Trazodone HCl (Trazodone Hcl 50 Mg Tablet) 50 mg PO BEDTIME MRX1 PRN PRN Reason: Insomnia Vitamin D (Cholecalciferol (Vitamin D3) 10 Mcg Tablet) 10 mcg PO DAILY [facility] Last Admin: 05/23/24 09:08 Dose: Not Given Allergies Allergies Allergy/AdvReac Type Severity Reaction Status Date / Time acetaminophen [From TYLENOL] Allergy Intermediate HIVES Verified 05/06/24 18:28 meperidine [From Demerol] Allergy Unknown Verified 05/06/24 18:28 Assessment & Plan Assessment & Plan (1) Schizoaffective disorder: Qualifiers: Schizoaffective disorder type: bipolar Qualified Code(s): F25.0 - Schizoaffective disorder, bipolar type Status: Acute Code(s): F25.9 - Schizoaffective disorder, unspecified (2) Type 2 diabetes mellitus with hyperglycemia: Status: Acute Code(s): E11.65 - Type 2 diabetes mellitus with hyperglycemia Plan 05/10: pt appears willing to take olanzapine. continue to offer the medication. address medical conditions as pt allows. 05/11: chart reviewed, affirmed [place] [facility] [place], HCP received. discussed case with HCP Martine Elder ([phone]), who absolutely supported antipsychotic medication for pt and asserted it was her understanding that affirmation from earlier this year was still valid. has no reason to believe otherwise and will not formally invoke HCP again; it is, nevertheless, this investigative writer's opinion that this patient lacks decision-making capacity regarding her mental healthcare at this time and that it is very appropriate to use an alternative decision maker as is being done. invega sustenna 156 mg ordered for now, to repeat in one week, then back to usual maintenance dosing next month. 05/12: received sustenna yesterday, may give second dose as soon as 05/16. paranoid delusions, bizarre, unpredictable responses/attitude. slept 8 hours. continue current mgmt. 05/13: more receptive today, no bizarre statements, aggressiveness, or accusations. slept 8 hours. continue current mgmt. sustenna 156 mg 05/16. 05/14: as for yesterday. next sustenna 156 mg ordered for 05/16, as per pharmacy recs. continue current mgmt otherwise. 05/15 continue tx. 05/16 continue tx 05/17 remains delusional and with no insight; regarding medications she says she is taking them; investigative writer gently challenges saying she has been refusing her Zyprexa, however pt says that she's been taking her medications.... -she did however take Invega Sustenna 156mg IM (last week) though said it was coffee 05/19: Continue current regimen and plans 05/20: no change in presentation. continue current mgmt. 05/22: Continue current management and treatment plan. 1229: refusing medications. Paranoid and easily agitated. Continue current management and treatment plan. Reason for continued inpatient stay Substantial Risk for: inability to function and rapid decompensation Time Spent With Patient Time: Total time managing care of this patient today ____ minutes.
[2024-05-23 20:00] VITALS: RESP 14
[2024-05-24] MEDS: Ibuprofen 600 MG TABLET PO (14:57)
--- NOTE | 2024-05-24 22:03 | HO.PSYCHPN ---
Subjective Subjective Date of Service: 05/24/24 Reason For Visit: schizoaffective disorder Interim History: Met with patient; discussed with staff Patient very irritable today. Steel Turner introduced self as Dr. Duarte to which patient yelled know you are not and started to walk away; investment underwriter tried to address her again however she again yelled know you are not and refused to engage. Mental Status Exam Mental Status Exam Narrative: improved hygiene, casual attire, adequately groomed. cooperative. Mood is irritable and affect constricted, angry; speech nml rate, volume, prosody; not pressured and no latency; thought process, goal oriented, linear, concrete; thought content on paranoid delusional thoughts; no SI/HI expressed; maybe internally preoccupied. judgment/insight: impaired Diagnostics Vital Signs (24Hr): BMI result Body Mass Index 36.5 Labs 05/06/24 18:36 05/20/24 08:27 Medications Medications Current Medications Al Hydroxide/Mg Hydroxide (Magnesium Hydrox/Alum Hydrox 30 Ml Oral.Susp) 30 ml PO Q6H PRN PRN Reason: Heartburn/Nausea Benztropine Mesylate (Benztropine Mesylate 1 Mg Tablet) 1 mg PO BID [facility] Last Admin: 05/24/24 09:55 Dose: Not Given Hydroxyzine HCl (Hydroxyzine Hcl 25 Mg Tablet) 25 mg PO Q6H PRN PRN Reason: Anxiety Ibuprofen (Ibuprofen 600 Mg Tablet) 600 mg PO Q4H PRN PRN Reason: moderate to severe pain Last Admin: 05/24/24 14:57 Dose: 600 mg Magnesium Hydroxide (Milk Of Magnesia 30 Ml Oral.Susp) 30 ml PO DAILY PRN PRN Reason: Constipation Metformin HCl (Metformin Hcl 1,000 Mg Tablet) 1,000 mg PO BID [facility] Last Admin: 05/24/24 09:55 Dose: Not Given Metronidazole (Metronidazole 0.75 % Gel 45 Gm Tube) 1 appl TOPICAL DAILY [facility] Last Admin: 05/24/24 09:56 Dose: Not Given Multi-Ingred Cream/Lotion/Oil/Oint (Mineral Oil/Petrolatum,White 106 Gm Tube) 1 appl TOPICAL BID [facility]; Protocol Last Admin: 05/24/24 09:56 Dose: Not Given Multivitamins/Vitamin C (Multivitamin Tablet) 1 tab PO DAILY [facility] Last Admin: 12/30/24 09:58 Dose: Not Given Nystatin (Nystatin Powder 15 Gm Bottle) 1 appl TOPICAL BID [facility]; Protocol Last Admin: 05/24/24 09:58 Dose: Not Given Olanzapine (Olanzapine Odt 10 Mg Tab.Rapdis) 10 mg TRANSLINGU BID [facility] Last Admin: 05/24/24 09:58 Dose: Not Given Olanzapine (Olanzapine Odt 10 Mg Tab.Rapdis) 5 mg TRANSLINGU Q4H PRN PRN Reason: agitation Trazodone HCl (Trazodone Hcl 50 Mg Tablet) 50 mg PO BEDTIME MRX1 PRN PRN Reason: Insomnia Vitamin D (Cholecalciferol (Vitamin D3) 10 Mcg Tablet) 10 mcg PO DAILY [facility] Last Admin: 05/24/24 09:55 Dose: Not Given Allergies Allergies Allergy/AdvReac Type Severity Reaction Status Date / Time acetaminophen [From TYLENOL] Allergy Intermediate HIVES Verified 05/06/24 18:28 meperidine [From Demerol] Allergy Unknown Verified 05/06/24 18:28 Assessment & Plan Assessment & Plan (1) Schizoaffective disorder: Qualifiers: Schizoaffective disorder type: bipolar Qualified Code(s): F25.0 - Schizoaffective disorder, bipolar type Status: Acute Code(s): F25.9 - Schizoaffective disorder, unspecified (2) Type 2 diabetes mellitus with hyperglycemia: Status: Acute Code(s): E11.65 - Type 2 diabetes mellitus with hyperglycemia Plan 05/10: pt appears willing to take olanzapine. continue to offer the medication. address medical conditions as pt allows. 05/11: chart reviewed, affirmed [place] [facility] [place], HCP received. discussed case with HCP Martine Elder ([phone]), who absolutely supported antipsychotic medication for pt and asserted it was her understanding that affirmation from earlier this year was still valid. has no reason to believe otherwise and will not formally invoke HCP again; it is, nevertheless, this investment underwriter's opinion that this patient lacks decision-making capacity regarding her mental healthcare at this time and that it is very appropriate to use an alternative decision maker as is being done. invega sustenna 156 mg ordered for now, to repeat in one week, then back to usual maintenance dosing next month. 05/12: received sustenna yesterday, may give second dose as soon as 05/16. paranoid delusions, bizarre, unpredictable responses/attitude. slept 8 hours. continue current mgmt. 05/13: more receptive today, no bizarre statements, aggressiveness, or accusations. slept 8 hours. continue current mgmt. sustenna 156 mg 05/16. 05/14: as for yesterday. next sustenna 156 mg ordered for 05/16, as per pharmacy recs. continue current mgmt otherwise. 05/15 continue tx. 05/16 continue tx 05/17 remains delusional and with no insight; regarding medications she says she is taking them; investment underwriter gently challenges saying she has been refusing her Zyprexa, however pt says that she's been taking her medications.... -she did however take Invega Sustenna 156mg IM (last week) though said it was coffee 05/19: Continue current regimen and plans 05/20: no change in presentation. continue current mgmt. 05/22: Continue current management and treatment plan. 1229: refusing medications. Paranoid and easily agitated. Continue current management and treatment plan. 05/24 paranoid, irritable and difficult with which to engage Reason for continued inpatient stay Substantial Risk for: inability to function Time Spent With Patient Time: Total time managing care of this patient today ____ minutes.
[2024-05-25] MEDS: Ibuprofen 600 MG TABLET PO ×2 (16:16→21:23)
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
[2024-05-26 20:00] VITALS: RESP 16
[2024-05-27] MEDS: Ibuprofen 600 MG TABLET PO ×2 (14:53→19:47)
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
[2024-05-27 20:00] VITALS: RESP 16
[2024-05-28] MEDS: Ibuprofen 600 MG TABLET PO ×3 (00:29→23:13)
[2024-05-28 08:00] VITALS: RESP 18
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
[2024-05-29 08:00] VITALS: RESP 18
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
[2024-05-29] MEDS: Ibuprofen 600 MG TABLET PO ×2 (16:23→21:02)
[2024-05-30] MEDS: Ibuprofen 600 MG TABLET PO ×3 (06:45→23:01)
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
[2024-05-31] MEDS: Ibuprofen 600 MG TABLET PO ×3 (04:01→18:05)
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
[2024-05-31] MEDS: OLANZapine 10 MG VIAL 5 MG IM (21:16)
--- NOTE | 2024-06-01 06:24 | PC.NURSE ---
Patient refused HS Cogentin, Metformin, Nystatin, and Olazapine ODT. Patient was not happy she was being given a court ordered Zyprexa. She yelled at staff I don't want to get anymore coffee , patient believes the medication in the IM's is coffee. Patient reassured it is medication in the IM and not coffee.
[2024-06-01 08:00] VITALS: RESP 18
[2024-06-01] MEDS: Ibuprofen 600 MG TABLET PO ×3 (09:00→20:24)
[2024-06-01] MEDS: OLANZapine 10 MG VIAL 5 MG IM (10:26)
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
[2024-06-01 20:00] VITALS: RESP 16
[2024-06-01] MEDS: OLANZapine ODT 10 MG TAB.RAPDIS TRANSLINGU (22:10)
[2024-06-02] MEDS: Ibuprofen 600 MG TABLET PO (07:39)
[2024-06-02] MEDS: OLANZapine ODT 10 MG TAB.RAPDIS TRANSLINGU ×2 (08:57→21:19)
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
[2024-06-02 20:00] VITALS: RESP 18
[2024-06-03] MEDS: Ibuprofen 600 MG TABLET PO (08:58)
[2024-06-03] MEDS: OLANZapine ODT 10 MG TAB.RAPDIS TRANSLINGU (09:06)
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
[2024-06-03 20:00] VITALS: RESP 20
[2024-06-03] MEDS: OLANZapine 10 MG VIAL 5 MG IM (20:29)
[2024-06-03] MEDS: diazePAM 10 MG/2 ML CARTRIDGE 5 MG IM (20:32)
[2024-06-04 08:00] VITALS: RESP 18
[2024-06-04] MEDS: diazePAM 10 MG/2 ML CARTRIDGE IM (11:39)
[2024-06-04] MEDS: OLANZapine 10 MG VIAL 5 MG IM ×2 (11:39→23:26)
--- NOTE | 2024-06-04 11:42 | PC.NURSE ---
Pt was agitated and uncontrolled behavior. She refused all PO meds and wanted IM medications. Ugo Tyson MD made aware.
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
[2024-06-04] MEDS: diazePAM 10 MG/2 ML CARTRIDGE 5 MG IM (23:27)
[2024-06-05] MEDS: OLANZapine 10 MG VIAL 5 MG IM ×2 (10:32→21:01)
[2024-06-05] MEDS: diazePAM 10 MG/2 ML CARTRIDGE 5 MG IM ×2 (10:38→21:02)
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
[2024-06-05] MEDS: Ibuprofen 600 MG TABLET PO (16:31)
[2024-06-06] MEDS: OLANZapine 10 MG VIAL 5 MG IM ×2 (10:37→21:57)
[2024-06-06] MEDS: diazePAM 10 MG/2 ML CARTRIDGE 5 MG IM ×2 (10:37→21:57)
--- NOTE | 2024-06-06 11:07 | PC.NURSE ---
Pt requested that this nurse ask Dr Duarte about holding her [place] today, the day before ECT. He stated that he will hold this morning, and give tonight's dose. Pt stated understanding.
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
[2024-06-06 20:00] VITALS: RESP 16
--- NOTE | 2024-06-06 22:04 | PC.NURSE ---
[facility] DECLINED ORAL PAUL MEDS, IM' GIVEN PER ORDER WITHOUT PROBLEMS.
[2024-06-07] MEDS: Ibuprofen 600 MG TABLET PO ×2 (08:34→14:10)
[2024-06-07] MEDS: OLANZapine ODT 10 MG TAB.RAPDIS TRANSLINGU (08:35)
[2024-06-07 13:08] LABS: Creatinine Clr Calc Pharmacy 73.9; Estimated Glomerular Filt Rate > 60
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
[2024-06-07 20:00] VITALS: RESP 16
[2024-06-07] MEDS: diazePAM 10 MG/2 ML CARTRIDGE 5 MG IM (21:46)
[2024-06-07] MEDS: OLANZapine 10 MG VIAL 5 MG IM (21:50)
[2024-06-08] MEDS: OLANZapine 10 MG VIAL 5 MG IM ×2 (10:08→21:08)
[2024-06-08] MEDS: diazePAM 10 MG/2 ML CARTRIDGE 5 MG IM ×2 (10:09→21:08)
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
[2024-06-08] MEDS: Ibuprofen 600 MG TABLET PO (15:19)
[2024-06-09 08:00] VITALS: RESP 18
[2024-06-09] MEDS: diazePAM 10 MG/2 ML CARTRIDGE 5 MG IM (08:33)
[2024-06-09] MEDS: OLANZapine 10 MG VIAL 5 MG IM (08:33)
[2024-06-09] MEDS: Ibuprofen 600 MG TABLET PO (12:27)
[2024-06-09 20:00] VITALS: RESP 16
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
[2024-06-09] MEDS: Lithium Carbonate ER 450 MG TABLET.ER PO (22:26)
[2024-06-09] MEDS: OLANZapine ODT 10 MG TAB.RAPDIS TRANSLINGU (22:26)
[2024-06-10] MEDS: OLANZapine ODT 10 MG TAB.RAPDIS TRANSLINGU ×2 (09:52→22:16)
[2024-06-10] MEDS: Lithium Carbonate ER 450 MG TABLET.ER PO ×2 (09:52→22:15)
[2024-06-10] MEDS: Ibuprofen 600 MG TABLET PO ×3 (09:52→22:31)
[2024-06-10] MEDS: diphenhydrAMINE HCl 2 % Cream 28 GM TUBE 1 APPL TOPICAL (15:17)
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
[2024-06-11 08:00] VITALS: RESP 18
[2024-06-11] MEDS: Lithium Carbonate ER 450 MG TABLET.ER PO ×2 (09:33→22:00)
[2024-06-11] MEDS: OLANZapine ODT 10 MG TAB.RAPDIS TRANSLINGU ×2 (09:34→22:00)
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
[2024-06-11] MEDS: Aspirin Enteric Coated 325 MG TABLET.DR PO (19:56)
[2024-06-11 20:17] VITALS: RESP 16
[2024-06-12 08:00] VITALS: RESP 18
[2024-06-12] MEDS: OLANZapine ODT 10 MG TAB.RAPDIS TRANSLINGU ×2 (10:56→20:28)
[2024-06-12] MEDS: Lithium Carbonate ER 450 MG TABLET.ER PO ×2 (10:56→20:28)
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
[2024-06-12] MEDS: Aspirin Enteric Coated 325 MG TABLET.DR PO ×2 (15:10→20:28)
[2024-06-12] MEDS: diphenhydrAMINE HCl 2 % Cream 28 GM TUBE 1 APPL TOPICAL (19:09)
[2024-06-12 20:45] VITALS: RESP 16
[2024-06-13] MEDS: Lithium Carbonate ER 450 MG TABLET.ER PO (10:13)
[2024-06-13] MEDS: OLANZapine ODT 10 MG TAB.RAPDIS TRANSLINGU (10:13)
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
[2024-06-13] MEDS: OLANZapine 10 MG VIAL 5 MG IM (22:16)
[2024-06-13] MEDS: diazePAM 10 MG/2 ML CARTRIDGE 5 MG IM (22:16)
[2024-06-13] MEDS: diphenhydrAMINE HCl 2 % Cream 28 GM TUBE 1 APPL TOPICAL (22:22)
--- NOTE | 2024-06-13 22:22 | PC.NURSE ---
Sivan at first declined her Benadryl cream but then changed her mind and accepted it
--- NOTE | 2024-06-14 00:31 | PC.NURSE ---
Pt was isolative to self/room, sleeping. She was irritable and aggressive towards RN when offered her HS Meds, she states get out of my room and pushed the movable computer. Pt is delusional and resistive to care, refused HS meds, IM meds given per HCP. She denied all psych symptoms, denies SI/HI. No episode of vomiting noted or reported.
[2024-06-14] MEDS: OLANZapine ODT 10 MG TAB.RAPDIS TRANSLINGU ×2 (09:17→21:44)
[2024-06-14] MEDS: Lithium Carbonate ER 450 MG TABLET.ER PO ×2 (09:17→21:44)
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
[2024-06-14] MEDS: Paliperidone Palmitate 234 MG/1.5 ML SYRINGE IM (13:33)
[2024-06-14] MEDS: diphenhydrAMINE HCl 2 % Cream 28 GM TUBE 1 APPL TOPICAL ×2 (15:34→21:52)
[2024-06-14 20:00] VITALS: RESP 14
[2024-06-15] MEDS: Lithium Carbonate ER 450 MG TABLET.ER PO ×2 (09:28→19:57)
[2024-06-15] MEDS: OLANZapine ODT 10 MG TAB.RAPDIS TRANSLINGU ×2 (09:28→19:57)
[2024-06-15] MEDS: diphenhydrAMINE HCl 2 % Cream 28 GM TUBE 1 APPL TOPICAL ×3 (09:28→19:57)
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
[2024-06-15] MEDS: Aspirin Enteric Coated 325 MG TABLET.DR PO (13:57)
[2024-06-15 20:00] VITALS: RESP 16
[2024-06-16] MEDS: OLANZapine ODT 10 MG TAB.RAPDIS TRANSLINGU ×2 (10:35→20:00)
[2024-06-16] MEDS: Lithium Carbonate ER 450 MG TABLET.ER PO ×2 (10:35→20:00)
[2024-06-16 19:46] VITALS: RESP 18
[2024-06-16] MEDS: diphenhydrAMINE HCl 2 % Cream 28 GM TUBE 1 APPL TOPICAL (20:00)
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
[2024-06-17 08:00] VITALS: RESP 16
[2024-06-17] MEDS: OLANZapine ODT 10 MG TAB.RAPDIS TRANSLINGU ×2 (08:26→21:29)
[2024-06-17] MEDS: Lithium Carbonate ER 450 MG TABLET.ER PO ×2 (08:26→21:29)
[2024-06-17 09:08] VITALS: BMI 80.7
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
[2024-06-17 12:41] LABS: Lithium 0.83 mmol/L (0.60-1.20)
[2024-06-17 12:53] LABS: Blood Urea Nitrogen 11 mg/dL (9-16); Creatinine Clr Calc Pharmacy 147.1; Estimated Glomerular Filt Rate > 60
[2024-06-17 13:08] LABS: TSH reflex Free T4 1.32 uIU/mL (0.32-4.0)
[2024-06-17 20:00] VITALS: RESP 18
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
[2024-06-18] MEDS: Lithium Carbonate ER 450 MG TABLET.ER PO ×2 (08:59→20:44)
[2024-06-18] MEDS: OLANZapine ODT 10 MG TAB.RAPDIS TRANSLINGU ×2 (08:59→20:43)
[2024-06-18] MEDS: diphenhydrAMINE HCl 2 % Cream 28 GM TUBE 1 APPL TOPICAL (09:15)
[2024-06-18 20:00] VITALS: RESP 16
[2024-06-19] MEDS: OLANZapine ODT 10 MG TAB.RAPDIS TRANSLINGU ×2 (10:20→20:45)
[2024-06-19] MEDS: Lithium Carbonate ER 450 MG TABLET.ER PO ×2 (10:21→20:45)
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
[2024-06-19] MEDS: diphenhydrAMINE HCl 2 % Cream 28 GM TUBE 1 APPL TOPICAL ×2 (15:15→20:49)
[2024-06-19 20:00] VITALS: RESP 16
[2024-06-20] MEDS: Lithium Carbonate ER 450 MG TABLET.ER PO ×2 (08:23→20:16)
[2024-06-20] MEDS: OLANZapine ODT 10 MG TAB.RAPDIS TRANSLINGU ×2 (08:23→20:16)
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
[2024-06-20 20:00] VITALS: RESP 18
[2024-06-20] MEDS: diphenhydrAMINE HCl 2 % Cream 28 GM TUBE 1 APPL TOPICAL (20:16)
[2024-06-21] MEDS: Lithium Carbonate ER 450 MG TABLET.ER PO ×2 (08:48→21:28)
[2024-06-21] MEDS: diphenhydrAMINE HCl 2 % Cream 28 GM TUBE 1 APPL TOPICAL (08:48)
[2024-06-21] MEDS: OLANZapine ODT 10 MG TAB.RAPDIS TRANSLINGU ×2 (08:48→21:27)
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
[2024-06-21 20:00] VITALS: RESP 18
[2024-06-22] MEDS: Lithium Carbonate ER 450 MG TABLET.ER PO ×2 (08:43→20:58)
[2024-06-22] MEDS: OLANZapine ODT 10 MG TAB.RAPDIS TRANSLINGU ×2 (08:43→20:58)
[2024-06-22] MEDS: Triamcinolone Acet 0.025 % Cream 15 GM TUBE 1 APPL TOPICAL (10:10)
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
[2024-06-22 20:00] VITALS: RESP 16
[2024-06-23] MEDS: OLANZapine ODT 10 MG TAB.RAPDIS TRANSLINGU ×2 (08:23→20:11)
[2024-06-23] MEDS: Lithium Carbonate ER 450 MG TABLET.ER PO ×2 (08:23→20:11)
[2024-06-23] MEDS: Triamcinolone Acet 0.025 % Cream 15 GM TUBE 1 APPL TOPICAL (08:24)
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
[2024-06-23 20:00] VITALS: RESP 18
[2024-06-23] MEDS: Mineral Oil/Petrolatum,White 106 GM Tube 1 APPL TOPICAL (20:09)
[2024-06-24] MEDS: Lithium Carbonate ER 450 MG TABLET.ER PO ×2 (09:53→20:10)
[2024-06-24] MEDS: OLANZapine ODT 10 MG TAB.RAPDIS TRANSLINGU ×2 (09:53→20:10)
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
[2024-06-24 20:00] VITALS: RESP 18
--- NOTE | 2024-06-25 07:50 | PC.NURSE ---
Phlebotomy came to draw this pt.'s stat creatinine, and pt refused. This writer producer called HCP, Martine, who stated that she would like this blood draw to take place. Security was called and during blood draw, pt pulled needle out of her arm. The language specialist stated that she had enough blood so no further action was taken.
[2024-06-25 08:41] LABS: Creatinine Clr Calc Pharmacy 125.6; Estimated Glomerular Filt Rate > 60
[2024-06-25] MEDS: OLANZapine ODT 10 MG TAB.RAPDIS TRANSLINGU ×2 (08:58→20:40)
[2024-06-25] MEDS: Lithium Carbonate ER 450 MG TABLET.ER PO ×2 (08:58→20:40)
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
[2024-06-25 20:23] VITALS: RESP 16
[2024-06-26 08:00] VITALS: RESP 18
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
[2024-06-26] MEDS: Lithium Carbonate ER 450 MG TABLET.ER PO ×2 (10:09→20:37)
[2024-06-26] MEDS: OLANZapine ODT 10 MG TAB.RAPDIS TRANSLINGU ×2 (10:09→20:37)
[2024-06-26 19:58] VITALS: RESP 18
[2024-06-27 08:14] VITALS: RESP 17
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
[2024-06-27] MEDS: Lithium Carbonate ER 450 MG TABLET.ER PO ×2 (09:58→20:21)
[2024-06-27] MEDS: OLANZapine ODT 10 MG TAB.RAPDIS TRANSLINGU ×2 (09:59→20:21)
[2024-06-27 20:00] VITALS: RESP 16
[2024-06-28] MEDS: Lithium Carbonate ER 450 MG TABLET.ER PO ×2 (09:34→20:10)
[2024-06-28] MEDS: OLANZapine ODT 10 MG TAB.RAPDIS TRANSLINGU ×2 (09:34→20:10)
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
[2024-06-28 20:00] VITALS: RESP 16
[2024-06-28] MEDS: Triamcinolone Acet 0.025 % Cream 15 GM TUBE 1 APPL TOPICAL (20:10)
[2024-06-29] MEDS: Lithium Carbonate ER 450 MG TABLET.ER PO ×2 (08:38→22:52)
[2024-06-29] MEDS: OLANZapine ODT 10 MG TAB.RAPDIS TRANSLINGU ×2 (08:38→22:52)
[2024-06-29] MEDS: Mineral Oil/Petrolatum,White 106 GM Tube 1 APPL TOPICAL (08:40)
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
[2024-06-29 20:33] VITALS: RESP 18
[2024-06-30] MEDS: Lithium Carbonate ER 450 MG TABLET.ER PO ×2 (08:12→21:03)
[2024-06-30] MEDS: OLANZapine ODT 10 MG TAB.RAPDIS TRANSLINGU ×2 (08:12→21:03)
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
[2024-06-30 20:20] VITALS: RESP 16
[2024-07-01] MEDS: OLANZapine ODT 10 MG TAB.RAPDIS TRANSLINGU (08:18)
[2024-07-01] MEDS: Lithium Carbonate ER 450 MG TABLET.ER PO ×2 (08:18→19:59)
[2024-07-01 09:41] LABS: Creatinine Clr Calc Pharmacy 143.3; Estimated Glomerular Filt Rate > 60
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
[2024-07-01] MEDS: OLANZapine ODT 10 MG TAB.RAPDIS 15 MG TRANSLINGU (19:59)
[2024-07-01 20:00] VITALS: RESP 18
[2024-07-02] MEDS: Triamcinolone Acet 0.025 % Cream 15 GM TUBE 1 APPL TOPICAL ×2 (09:36→21:39)
[2024-07-02] MEDS: Lithium Carbonate ER 450 MG TABLET.ER PO ×2 (09:37→21:37)
[2024-07-02] MEDS: OLANZapine ODT 10 MG TAB.RAPDIS 15 MG TRANSLINGU ×2 (09:38→21:37)
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
[2024-07-02] MEDS: Throat Lozenge, Medicated LOZENGE 1 LOZENGE MUCOUS MEM ×2 (14:19→21:39)
[2024-07-02 20:00] VITALS: RESP 16
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
[2024-07-03] MEDS: OLANZapine ODT 10 MG TAB.RAPDIS 15 MG TRANSLINGU ×2 (09:53→21:29)
[2024-07-03] MEDS: Lithium Carbonate ER 450 MG TABLET.ER PO ×2 (09:55→21:30)
[2024-07-03] MEDS: Throat Lozenge, Medicated LOZENGE 1 LOZENGE MUCOUS MEM ×2 (09:59→21:29)
[2024-07-03] MEDS: Mineral Oil/Petrolatum,White 106 GM Tube 1 APPL TOPICAL (11:45)
[2024-07-03] MEDS: Triamcinolone Acet 0.025 % Cream 15 GM TUBE 1 APPL TOPICAL (21:29)
[2024-07-03 21:32] VITALS: RESP 16; TEMP 36.6
[2024-07-04] MEDS: Throat Lozenge, Medicated LOZENGE 1 LOZENGE MUCOUS MEM ×3 (02:27→16:06)
[2024-07-04 02:41] VITALS: RESP 16; TEMP 37.1
[2024-07-04] MEDS: OLANZapine ODT 10 MG TAB.RAPDIS 15 MG TRANSLINGU ×2 (08:44→21:18)
[2024-07-04] MEDS: Lithium Carbonate ER 450 MG TABLET.ER PO ×2 (08:44→21:18)
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
[2024-07-04 20:38] VITALS: RESP 18
[2024-07-05] MEDS: OLANZapine ODT 10 MG TAB.RAPDIS 15 MG TRANSLINGU ×2 (09:27→20:33)
[2024-07-05] MEDS: Lithium Carbonate ER 450 MG TABLET.ER PO ×2 (09:27→20:33)
[2024-07-05] MEDS: Throat Lozenge, Medicated LOZENGE 1 LOZENGE MUCOUS MEM ×5 (09:35→20:35)
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
[2024-07-06] MEDS: OLANZapine ODT 10 MG TAB.RAPDIS 15 MG TRANSLINGU ×2 (12:11→20:56)
[2024-07-06] MEDS: Lithium Carbonate ER 450 MG TABLET.ER PO ×2 (12:11→20:55)
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
[2024-07-06] MEDS: Throat Lozenge, Medicated LOZENGE 1 LOZENGE MUCOUS MEM (21:02)
[2024-07-07] MEDS: Throat Lozenge, Medicated LOZENGE 1 LOZENGE MUCOUS MEM ×4 (09:32→20:12)
[2024-07-07] MEDS: Lithium Carbonate ER 450 MG TABLET.ER PO ×2 (09:34→20:14)
[2024-07-07] MEDS: OLANZapine ODT 10 MG TAB.RAPDIS 15 MG TRANSLINGU ×2 (09:35→20:13)
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
[2024-07-07 20:00] VITALS: RESP 18
[2024-07-08 07:00] VITALS: BMI 37.0
[2024-07-08] MEDS: Throat Lozenge, Medicated LOZENGE 1 LOZENGE MUCOUS MEM ×3 (07:50→17:23)
[2024-07-08] MEDS: OLANZapine ODT 10 MG TAB.RAPDIS 15 MG TRANSLINGU ×2 (08:38→22:59)
[2024-07-08] MEDS: Lithium Carbonate ER 450 MG TABLET.ER PO ×2 (08:38→22:59)
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
[2024-07-08 17:45] LABS: Creatinine Clr Calc Pharmacy 81.6; Estimated Glomerular Filt Rate > 60
[2024-07-09] MEDS: Lithium Carbonate ER 450 MG TABLET.ER PO ×2 (11:07→21:27)
[2024-07-09] MEDS: OLANZapine ODT 10 MG TAB.RAPDIS 15 MG TRANSLINGU ×2 (11:07→21:27)
[2024-07-09] MEDS: Throat Lozenge, Medicated LOZENGE 1 LOZENGE MUCOUS MEM ×2 (11:56→21:29)
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
[2024-07-10] MEDS: OLANZapine ODT 10 MG TAB.RAPDIS 15 MG TRANSLINGU ×2 (09:19→19:59)
[2024-07-10] MEDS: Lithium Carbonate ER 450 MG TABLET.ER PO ×2 (09:19→19:59)
[2024-07-10] MEDS: Throat Lozenge, Medicated LOZENGE 1 LOZENGE MUCOUS MEM ×4 (09:19→19:59)
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
[2024-07-11] MEDS: Throat Lozenge, Medicated LOZENGE 1 LOZENGE MUCOUS MEM ×3 (10:30→20:00)
[2024-07-11] MEDS: OLANZapine ODT 10 MG TAB.RAPDIS 15 MG TRANSLINGU ×2 (10:31→20:18)
[2024-07-11] MEDS: Lithium Carbonate ER 450 MG TABLET.ER PO ×2 (10:32→20:00)
[2024-07-11] MEDS: Triamcinolone Acet 0.025 % Cream 15 GM TUBE 1 APPL TOPICAL (18:11)
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
[2024-07-12] MEDS: Lithium Carbonate ER 450 MG TABLET.ER PO ×2 (09:00→20:52)
[2024-07-12] MEDS: OLANZapine ODT 10 MG TAB.RAPDIS 15 MG TRANSLINGU ×2 (09:00→20:52)
[2024-07-12] MEDS: Throat Lozenge, Medicated LOZENGE 1 LOZENGE MUCOUS MEM ×4 (09:00→20:52)
[2024-07-12] MEDS: Triamcinolone Acet 0.025 % Cream 15 GM TUBE 1 APPL TOPICAL (12:27)
[2024-07-12 20:45] VITALS: RESP 16
[2024-07-13 07:51] VITALS: RESP 18
[2024-07-13] MEDS: Lithium Carbonate ER 450 MG TABLET.ER PO ×2 (08:40→21:05)
[2024-07-13] MEDS: OLANZapine ODT 10 MG TAB.RAPDIS 15 MG TRANSLINGU ×2 (08:40→21:05)
--- NOTE | 2024-07-13 09:06 | PC.NURSE ---
Sivan was only accepting of [place] and Zydis per HCP orders. Ugo Tyson MD aware.
[2024-07-13] MEDS: Throat Lozenge, Medicated LOZENGE 1 LOZENGE MUCOUS MEM (12:33)
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
[2024-07-13 20:00] VITALS: RESP 16
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
[2024-07-14] MEDS: OLANZapine ODT 10 MG TAB.RAPDIS 15 MG TRANSLINGU ×2 (09:23→22:34)
[2024-07-14] MEDS: Lithium Carbonate ER 450 MG TABLET.ER PO ×2 (09:24→22:34)
[2024-07-14] MEDS: Throat Lozenge, Medicated LOZENGE 1 LOZENGE MUCOUS MEM (09:28)
[2024-07-14] MEDS: Paliperidone Palmitate 234 MG/1.5 ML SYRINGE IM (12:46)
[2024-07-14 20:31] VITALS: RESP 16
[2024-07-15 08:00] VITALS: RESP 18
[2024-07-15] MEDS: Lithium Carbonate ER 450 MG TABLET.ER PO ×2 (09:29→20:50)
[2024-07-15] MEDS: OLANZapine ODT 10 MG TAB.RAPDIS 15 MG TRANSLINGU ×2 (09:29→20:50)
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
[2024-07-15 14:55] LABS: Creatinine Clr Calc Pharmacy 72.1; Estimated Glomerular Filt Rate > 60
[2024-07-16] MEDS: OLANZapine ODT 10 MG TAB.RAPDIS 15 MG TRANSLINGU ×2 (09:08→21:35)
[2024-07-16] MEDS: Triamcinolone Acet 0.025 % Cream 15 GM TUBE 1 APPL TOPICAL (09:08)
[2024-07-16] MEDS: Lithium Carbonate ER 450 MG TABLET.ER PO ×2 (09:08→21:35)
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
[2024-07-16] MEDS: Throat Lozenge, Medicated LOZENGE 1 LOZENGE MUCOUS MEM ×2 (17:58→20:11)
[2024-07-16 20:00] VITALS: RESP 16
[2024-07-17] MEDS: Lithium Carbonate ER 450 MG TABLET.ER PO ×2 (10:16→20:41)
[2024-07-17] MEDS: OLANZapine ODT 10 MG TAB.RAPDIS 15 MG TRANSLINGU ×2 (10:16→20:41)
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
[2024-07-17] MEDS: Throat Lozenge, Medicated LOZENGE 1 LOZENGE MUCOUS MEM ×2 (10:19→12:30)
[2024-07-17 20:00] VITALS: RESP 16
[2024-07-18] MEDS: OLANZapine ODT 10 MG TAB.RAPDIS 15 MG TRANSLINGU ×2 (09:09→22:38)
[2024-07-18] MEDS: Lithium Carbonate ER 450 MG TABLET.ER PO ×2 (09:09→22:38)
[2024-07-18] MEDS: Throat Lozenge, Medicated LOZENGE 1 LOZENGE MUCOUS MEM ×2 (09:11→17:25)
[2024-07-18] MEDS: Triamcinolone Acet 0.025 % Cream 15 GM TUBE 1 APPL TOPICAL (09:13)
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
[2024-07-18 19:56] VITALS: RESP 16
[2024-07-19] MEDS: OLANZapine ODT 10 MG TAB.RAPDIS 15 MG TRANSLINGU (08:56)
[2024-07-19] MEDS: Lithium Carbonate ER 450 MG TABLET.ER PO ×2 (08:56→20:22)
[2024-07-19] MEDS: Throat Lozenge, Medicated LOZENGE 1 LOZENGE MUCOUS MEM (09:35)
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
[2024-07-19] MEDS: metFORMIN HCl 1,000 MG TABLET 1000 MG PO (20:21)
[2024-07-19] MEDS: OLANZapine ODT 10 MG TAB.RAPDIS TRANSLINGU (20:22)
[2024-07-19] MEDS: Mineral Oil/Petrolatum,White 106 GM Tube 1 APPL TOPICAL (20:23)
[2024-07-20] MEDS: Mineral Oil/Petrolatum,White 106 GM Tube 1 APPL TOPICAL (09:16)
[2024-07-20] MEDS: OLANZapine ODT 10 MG TAB.RAPDIS TRANSLINGU (09:39)
[2024-07-20] MEDS: Lithium Carbonate ER 450 MG TABLET.ER PO ×2 (09:39→20:33)
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
[2024-07-20] MEDS: OLANZapine ODT 10 MG TAB.RAPDIS 20 MG TRANSLINGU (20:33)
[2024-07-21] MEDS: Lithium Carbonate ER 450 MG TABLET.ER PO ×2 (08:51→21:12)
[2024-07-21] MEDS: Throat Lozenge, Medicated LOZENGE 1 LOZENGE MUCOUS MEM ×2 (11:56→17:16)
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
[2024-07-21] MEDS: OLANZapine ODT 10 MG TAB.RAPDIS 20 MG TRANSLINGU (21:12)
[2024-07-22 07:00] VITALS: BMI 37.2
[2024-07-22] MEDS: Lithium Carbonate ER 450 MG TABLET.ER PO ×2 (08:24→21:16)
[2024-07-22] MEDS: Throat Lozenge, Medicated LOZENGE 1 LOZENGE MUCOUS MEM (09:17)
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
[2024-07-22 13:54] LABS: Creatinine Clr Calc Pharmacy 84.9; Estimated Glomerular Filt Rate > 60
[2024-07-22] MEDS: OLANZapine ODT 10 MG TAB.RAPDIS 20 MG TRANSLINGU (21:17)
[2024-07-23] MEDS: Lithium Carbonate ER 450 MG TABLET.ER PO ×2 (08:17→20:23)
[2024-07-23] MEDS: Throat Lozenge, Medicated LOZENGE 1 LOZENGE MUCOUS MEM (08:17)
[2024-07-23 08:40] VITALS: RESP 18
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
[2024-07-23] MEDS: OLANZapine ODT 10 MG TAB.RAPDIS 20 MG TRANSLINGU (20:23)
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
[2024-07-24 08:00] VITALS: RESP 18
[2024-07-24] MEDS: Lithium Carbonate ER 450 MG TABLET.ER PO ×2 (08:19→21:07)
[2024-07-24] MEDS: Mineral Oil/Petrolatum,White 106 GM Tube 1 APPL TOPICAL (08:20)
[2024-07-24] MEDS: Throat Lozenge, Medicated LOZENGE 1 LOZENGE MUCOUS MEM ×3 (10:58→19:47)
[2024-07-24 19:48] VITALS: RESP 16
[2024-07-24] MEDS: OLANZapine ODT 10 MG TAB.RAPDIS 20 MG TRANSLINGU (21:07)
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
[2024-07-25] MEDS: Throat Lozenge, Medicated LOZENGE 1 LOZENGE MUCOUS MEM ×3 (08:31→17:27)
[2024-07-25] MEDS: Lithium Carbonate ER 450 MG TABLET.ER PO ×2 (08:31→21:40)
[2024-07-25 20:00] VITALS: RESP 16
[2024-07-25] MEDS: OLANZapine ODT 10 MG TAB.RAPDIS 20 MG TRANSLINGU (21:39)
[2024-07-25] MEDS: Mineral Oil/Petrolatum,White 106 GM Tube 1 APPL TOPICAL (21:39)
[2024-07-26] MEDS: Lithium Carbonate ER 450 MG TABLET.ER PO ×2 (09:02→20:35)
[2024-07-26] MEDS: Throat Lozenge, Medicated LOZENGE 1 LOZENGE MUCOUS MEM ×2 (09:02→13:50)
[2024-07-26] MEDS: Mineral Oil/Petrolatum,White 106 GM Tube 1 APPL TOPICAL ×2 (09:05→20:37)
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
[2024-07-26 20:00] VITALS: RESP 16
[2024-07-26] MEDS: OLANZapine ODT 10 MG TAB.RAPDIS 20 MG TRANSLINGU (20:35)
[2024-07-27] MEDS: Lithium Carbonate ER 450 MG TABLET.ER PO ×2 (08:44→21:02)
[2024-07-27] MEDS: Multivitamin TABLET 1 TAB PO (09:17)
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
[2024-07-27] MEDS: Mineral Oil/Petrolatum,White 106 GM Tube 1 APPL TOPICAL ×2 (11:55→21:02)
[2024-07-27 20:58] VITALS: RESP 16
[2024-07-27] MEDS: OLANZapine ODT 10 MG TAB.RAPDIS 20 MG TRANSLINGU (21:02)
[2024-07-28] MEDS: Lithium Carbonate ER 450 MG TABLET.ER PO ×2 (08:41→20:28)
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
[2024-07-28 20:25] VITALS: RESP 16
[2024-07-28] MEDS: OLANZapine ODT 10 MG TAB.RAPDIS 20 MG TRANSLINGU (20:28)
[2024-07-28] MEDS: Mineral Oil/Petrolatum,White 106 GM Tube 1 APPL TOPICAL (20:30)
[2024-07-29 07:00] VITALS: BMI 37.0
[2024-07-29 08:00] VITALS: RESP 18
[2024-07-29] MEDS: Lithium Carbonate ER 450 MG TABLET.ER PO ×2 (08:50→20:31)
[2024-07-29] MEDS: Throat Lozenge, Medicated LOZENGE 1 LOZENGE MUCOUS MEM ×2 (08:52→20:55)
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
[2024-07-29 15:04] LABS: Creatinine Clr Calc Pharmacy 73.7; Estimated Glomerular Filt Rate > 60
[2024-07-29] MEDS: OLANZapine ODT 10 MG TAB.RAPDIS 20 MG TRANSLINGU (20:30)
[2024-07-30] MEDS: Lithium Carbonate ER 450 MG TABLET.ER PO ×2 (08:37→20:09)
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
[2024-07-30] MEDS: Throat Lozenge, Medicated LOZENGE 1 LOZENGE MUCOUS MEM (17:31)
[2024-07-30] MEDS: OLANZapine ODT 10 MG TAB.RAPDIS 20 MG TRANSLINGU (20:10)
[2024-07-31] MEDS: Lithium Carbonate ER 450 MG TABLET.ER PO ×2 (08:55→20:42)
[2024-07-31] MEDS: Throat Lozenge, Medicated LOZENGE 1 LOZENGE MUCOUS MEM ×3 (09:57→17:15)
[2024-07-31] MEDS: Triamcinolone Acet 0.025 % Cream 15 GM TUBE 1 APPL TOPICAL (10:14)
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
[2024-07-31 19:49] VITALS: RESP 18
[2024-07-31] MEDS: OLANZapine ODT 10 MG TAB.RAPDIS 20 MG TRANSLINGU (20:42)
[2024-08-01] MEDS: Throat Lozenge, Medicated LOZENGE 1 LOZENGE MUCOUS MEM ×2 (08:53→16:27)
[2024-08-01] MEDS: Lithium Carbonate ER 450 MG TABLET.ER PO ×2 (08:53→21:28)
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
[2024-08-01 20:20] VITALS: RESP 16
[2024-08-01] MEDS: OLANZapine ODT 10 MG TAB.RAPDIS 20 MG TRANSLINGU (21:28)
[2024-08-01] MEDS: Mineral Oil/Petrolatum,White 106 GM Tube 1 APPL TOPICAL (21:29)
[2024-08-02] MEDS: Lithium Carbonate ER 450 MG TABLET.ER PO ×2 (08:42→22:06)
[2024-08-02] MEDS: Throat Lozenge, Medicated LOZENGE 1 LOZENGE MUCOUS MEM ×2 (08:42→13:19)
[2024-08-02] MEDS: Mineral Oil/Petrolatum,White 106 GM Tube 1 APPL TOPICAL ×2 (11:46→22:07)
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
[2024-08-02 20:24] VITALS: RESP 16
[2024-08-02] MEDS: OLANZapine ODT 10 MG TAB.RAPDIS 20 MG TRANSLINGU (22:06)
[2024-08-03] MEDS: Lithium Carbonate ER 450 MG TABLET.ER PO ×2 (08:43→20:37)
[2024-08-03] MEDS: Throat Lozenge, Medicated LOZENGE 1 LOZENGE MUCOUS MEM ×2 (10:46→11:57)
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
[2024-08-03] MEDS: OLANZapine ODT 10 MG TAB.RAPDIS 20 MG TRANSLINGU (20:37)
[2024-08-04] MEDS: Lithium Carbonate ER 450 MG TABLET.ER PO ×2 (09:43→20:49)
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
--- NOTE | 2024-08-04 20:08 | PC.NURSE ---
Addendum entered by Emily Wilson RN 08/04/24 20:52: Patient allowed labs with much encouragement Original Note: [facility] refused her HS lab draw stating that they don't even know how to draw labs no I had labs 2days ago . covering Provider notified
[2024-08-04] MEDS: OLANZapine ODT 10 MG TAB.RAPDIS 20 MG TRANSLINGU (20:50)
[2024-08-04 21:08] LABS: Lithium 0.45 mmol/L (0.60-1.20)
[2024-08-04 21:13] LABS: Anion Gap 12 (12-20); Blood Urea Nitrogen 16 mg/dL (9-16); Calcium 9.5 mg/dL (8.4-10.2); Carbon Dioxide 26 mmol/L (22-29); Chloride 107 mmol/L (96-108); Creatinine Clr Calc Pharmacy 82.6; Estimated Glomerular Filt Rate > 60; Glucose Random 231 mg/dL (60-115); Potassium 4.1 mmol/L (3.3-5.1); Sodium 141 mmol/L (135-145)
[2024-08-05 07:00] VITALS: BMI 37.1
[2024-08-05] MEDS: Lithium Carbonate ER 450 MG TABLET.ER PO ×2 (08:32→20:08)
[2024-08-05] MEDS: Throat Lozenge, Medicated LOZENGE 1 LOZENGE MUCOUS MEM ×2 (08:33→20:21)
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
[2024-08-05 20:00] VITALS: RESP 16
[2024-08-05] MEDS: OLANZapine ODT 10 MG TAB.RAPDIS 20 MG TRANSLINGU (20:09)
[2024-08-06] MEDS: Lithium Carbonate ER 450 MG TABLET.ER PO (08:15)
[2024-08-06] MEDS: Throat Lozenge, Medicated LOZENGE 1 LOZENGE MUCOUS MEM ×3 (08:16→20:38)
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
[2024-08-06 20:00] VITALS: RESP 18
[2024-08-06] MEDS: Lithium Carbonate ER 300 MG TABLET.ER 600 MG PO (20:38)
[2024-08-06] MEDS: OLANZapine ODT 10 MG TAB.RAPDIS 20 MG TRANSLINGU (20:38)
[2024-08-07] MEDS: Lithium Carbonate ER 450 MG TABLET.ER PO (08:56)
[2024-08-07] MEDS: Throat Lozenge, Medicated LOZENGE 1 LOZENGE MUCOUS MEM ×2 (08:56→15:29)
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
[2024-08-07 20:00] VITALS: RESP 16
[2024-08-07] MEDS: OLANZapine ODT 10 MG TAB.RAPDIS 20 MG TRANSLINGU (20:40)
[2024-08-07] MEDS: Lithium Carbonate ER 300 MG TABLET.ER 600 MG PO (20:40)
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
[2024-08-08] MEDS: Lithium Carbonate ER 450 MG TABLET.ER PO (10:22)
[2024-08-08 20:00] VITALS: RESP 16
[2024-08-08] MEDS: Lithium Carbonate ER 300 MG TABLET.ER 600 MG PO (20:13)
[2024-08-08] MEDS: Mineral Oil/Petrolatum,White 106 GM Tube 1 APPL TOPICAL (20:13)
[2024-08-08] MEDS: OLANZapine ODT 10 MG TAB.RAPDIS 20 MG TRANSLINGU (20:14)
[2024-08-09] MEDS: Lithium Carbonate ER 450 MG TABLET.ER PO (09:16)
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
[2024-08-09 20:00] VITALS: RESP 16
[2024-08-09] MEDS: Mineral Oil/Petrolatum,White 106 GM Tube 1 APPL TOPICAL (20:12)
[2024-08-09] MEDS: OLANZapine ODT 10 MG TAB.RAPDIS 20 MG TRANSLINGU (20:13)
[2024-08-09] MEDS: Lithium Carbonate ER 300 MG TABLET.ER 600 MG PO (20:13)
[2024-08-10] MEDS: Lithium Carbonate ER 450 MG TABLET.ER PO (09:32)
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
[2024-08-10 20:00] VITALS: RESP 16
[2024-08-10] MEDS: OLANZapine ODT 10 MG TAB.RAPDIS 20 MG TRANSLINGU (20:04)
[2024-08-10] MEDS: Lithium Carbonate ER 300 MG TABLET.ER 600 MG PO (20:04)
[2024-08-10] MEDS: Mineral Oil/Petrolatum,White 106 GM Tube 1 APPL TOPICAL (20:04)
[2024-08-11] MEDS: Lithium Carbonate ER 450 MG TABLET.ER PO (08:33)
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
[2024-08-11 20:08] VITALS: RESP 18
[2024-08-11 20:26] LABS: Anion Gap 13 (12-20); Blood Urea Nitrogen 15 mg/dL (9-16); Calcium 9.3 mg/dL (8.4-10.2); Carbon Dioxide 25 mmol/L (22-29); Chloride 106 mmol/L (96-108); Creatinine Clr Calc Pharmacy 81.8; Estimated Glomerular Filt Rate > 60; Glucose Random 206 mg/dL (60-115); Potassium 4.1 mmol/L (3.3-5.1); Sodium 140 mmol/L (135-145)
[2024-08-11] MEDS: Lithium Carbonate ER 300 MG TABLET.ER 600 MG PO (20:28)
[2024-08-11] MEDS: OLANZapine ODT 10 MG TAB.RAPDIS 20 MG TRANSLINGU (20:28)
[2024-08-12] MEDS: Lithium Carbonate ER 450 MG TABLET.ER PO (08:53)
[2024-08-12 09:04] VITALS: BMI 37.4
[2024-08-12] MEDS: Paliperidone Palmitate 234 MG/1.5 ML SYRINGE IM (09:09)
[2024-08-12] MEDS: Throat Lozenge, Medicated LOZENGE 1 LOZENGE MUCOUS MEM (10:35)
== END 2024-08-12 11:24 | disposition home or self-care (01) | DRG 885 ==
LOC: HO.ED 05-08 06:50 → HO.PADLT16 05-09 12:50
PROVIDERS: Psychiatry & Neurology Psychiatry; Student in an Organized Health Care Education/Training Program; Admitting Provider Psychiatry & Neurology Psychiatry; Emergency Provider Emergency Medicine; Visit Provider Psychiatry & Neurology Psychiatry
DX: F25.0 Schizoaffective disorder, bipolar type (principal); E11.65 Type 2 diabetes mellitus with hyperglycemia; Z79.84 Long term (current) use of oral hypoglycemic drugs; Z79.899 Other long term (current) drug therapy
CPT/HCPCS: 36415; 80048; 80053; 80061; 80178; 80307; 81001; 81003; 82565; 84443; 84520; 85025; 93005; 99285; J1200; J2060; J2359; J2426; J3360; S9485

== ENCOUNTER → 2024-05-07 00:17 | Outpatient (BNV) | payer MEDICARE, MEDICAID, SELFPAY | PROVIDERS: Emergency Provider Emergency Medicine; Visit Provider Psychiatry & Neurology Psychiatry | DX: F25.0 Schizoaffective disorder, bipolar type (principal); E11.65 Type 2 diabetes mellitus with hyperglycemia | CPT/HCPCS: 90792; 99231; 99232 ==

== ENCOUNTER → 2024-05-07 08:55 | Outpatient (BNV) | payer MEDICARE, MEDICAID, SELFPAY | PROVIDERS: Emergency Provider Emergency Medicine; Visit Provider Internal Medicine Cardiovascular Disease | DX: F25.9 Schizoaffective disorder, unspecified (principal); Z91.148 Patient's other noncompliance with medication regimen for other reason; I10 Essential (primary) hypertension | CPT/HCPCS: 93010 ==

== ENCOUNTER 2024-08-26 10:28 | Outpatient (AMB) | payer MEDICARE, MEDICAID, SELFPAY ==
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
[2024-08-26 10:42] VITALS: BP 130/66; PULSE 85; TEMP 36.1; O2SAT 93; BMI 37.4
== END 2024-08-26 11:11 | disposition home or self-care (01) ==
LOC: HO.HMCH 10:28
PROVIDERS: PCP Internal Medicine
DX: R03.0 Elevated blood-pressure reading, without diagnosis of hypertension (principal); E11.65 Type 2 diabetes mellitus with hyperglycemia; F25.0 Schizoaffective disorder, bipolar type; E66.09 Other obesity due to excess calories; Z68.39 Body mass index [BMI] 39.0-39.9, adult

== ENCOUNTER → 2024-08-26 10:28 | Outpatient (BNVA) | payer MEDICARE, MEDICAID, SELFPAY | PROVIDERS: PCP Internal Medicine | DX: Z00.00 Encounter for general adult medical examination without abnormal findings (principal); E66.9 Obesity, unspecified; E78.00 Pure hypercholesterolemia, unspecified; E11.9 Type 2 diabetes mellitus without complications; R03.0 Elevated blood-pressure reading, without diagnosis of hypertension; E11.65 Type 2 diabetes mellitus with hyperglycemia; F25.0 Schizoaffective disorder, bipolar type; E66.09 Other obesity due to excess calories; Z68.37 Body mass index [BMI] 37.0-37.9, adult | CPT/HCPCS: 96127; 99212 ==

== ENCOUNTER 2024-10-04 09:36 | Outpatient (AMB) | payer MEDICARE, MEDICAID, SELFPAY ==
--- NOTE | 2024-10-04 09:52 | AM.OFFVISNUR ---
Intake Visit Reasons: PPD Plant Allergies acetaminophen [From TYLENOL] Allergy (Intermediate, Verified 08/26/24 10:54) HIVES meperidine [From Demerol] Allergy (Verified 08/26/24 10:54) Unknown Office Meds tuberculin PPD 5 tub. unit/0.1 mL intradermal injection solution Performing Provider: Gena Paul MD [place] [facility] [facility] Administered by: Rebekah Childers RN on 10/04/24 09:52 Dose Route Admin Location Dispensed Lot Number Expiration Date [facility] [employer] 0.1 mL intradermal left forearm 0.1 mL [id number] 04/24/27 [id number] [employer] Assessment & Plan Assessment & Plan Orders: Orders AMB PPD Planted Today Z11.1 - Encounter for screening for respiratory tuberculosis Medications: New tuberculin PPD 0.1 mL intradermal ONCE 0.1 mL 0RF Z11.1 - Encounter for screening for respiratory tuberculosis Coding
--- OUTSIDE RECORDS SUMMARY | 2024-10-04 09:53 | XMS_ITS | Clinical Summary ---
Author Organization Unknown Care Team Providers Care Office Electrician Name Role Phone IRIS MANUEL, BERNARDA Unavailable Unavailable BAY LOMELI, GIOVANNI Unavailable Unavailable Payers Payer Name Policy Type Policy Number Effective Date Expira tion Date ON DEMAND [place]IC[place] [id number] [place] [id number] Problems Condition Name Condition Details Condition Category Status Onset Date Resolution Date Last Treatment Date Treating Clinician Comments PARANOID SCHIZOPHRENI A Active 09-06 00:00: 00 SCHIZOAFFECT ADINA DISORDER, BIPOLAR TYPE Active 08-30 00:00: 00 Patient's other noncompl with meds regimen for other reason Active 09-01 00:00: 00 RESTLESSNESS AND AGITATION Active 09-01 00:00: 00 DELUSIONAL DISORDERS Active 09-01 00:00: 00 MILD INTERMITTENT ASTHMA, UNCOMPLICATE D Active 09-01 00:00: 00 OBESITY, UNSPECIFIED Active 09-01 00:00: 00 NICOTINE DEPENDENCE, UNSPECIFIED, UNCOMPLICATE D Active 09-01 00:00: 00 TYPE 2 DIABETES MELLITUS WITH UNSPECIFIED COMPLICATION S Active 09-01 00:00: 00 ROSACEA, UNSPECIFIED Active 09-01 00:00: 00 Allergies, Adverse Reactions, Alerts Allergy Name Allergy Type Status Severity Reaction(s) Onset Date Inactive Date Treating Clinician Comments DEMEROL Propensity to adverse reactions Active 2024-08 19:32:1 8 TYLENOL Propensity to adverse reactions Active 2024-08 19:32:3 2 Medications Ordered Medication Name Filled Medication Name Start Date Stop Date Current Medication? Ordering Clinician Indication Dosage Frequency Signature (SIG) Comments Components Invega Sustenna 234 mg/1.5 mL intramuscul ar syringe 2019-05 00:00: 00 11-08 23:59 :00 No [id number] 234 mg MONTHLY 234 mg MONTHLY (route: intramuscu lar) Med Classific ation: Central Nervous System Agents metronidazo le 1 % topical gel 11-02 00:00: 00 11-10 23:59 :00 No [id number] 1 cm DAILY 1 cm DAILY (route: topical) Med Classific ation: Dermatolo gical Invega Sustenna 234 mg/1.5 mL intramuscul ar syringe 11-03 00:00: 00 08-29 23:59 :00 No [id number] 234 mg DIRECTED 234 mg DIRECTED (route: intramuscu lar) Med Classific ation: Central Nervous System Agents lorazepam 0.5 mg tablet 11-02 00:00: 00 11-10 23:59 :00 No [id number] 0.5 mg DAILY 0.5 mg DAILY (route: oral) Med Classific ation: Central Nervous System Agents duloxetine 20 mg capsule,del ayed release 11-03 00:00: 00 11-10 23:59 :00 No [id number] 20 mg DAILY 20 mg DAILY (route: oral) Med Classific ation: Central Nervous System Agents olanzapine 10 mg disintegrat ing tablet 11-03 00:00: 00 11-13 23:59 :00 No [id number] 10 mg DAILY 10 mg DAILY (route: oral) Med Classific ation: Central Nervous System Agents olanzapine 20 mg disintegrat ing tablet 11-02 00:00: 00 11-13 23:59 :00 No [id number] 20 mg DAILY 20 mg DAILY (route: oral) Med Classific ation: Central Nervous System Agents albuterol sulfate HFA 90 mcg/actuati on aerosol inhaler 09-01 00:00: 00 Yes [id number] 2 puff EVERY 4 HOURS 2 puff EVERY 4 HOURS (route: inhalation ) Med Classific ation: Respirato ry Therapy Agents ibuprofen 600 mg tablet 09-01 00:00: 00 Yes [id number] 1 tablet EVERY 6-8 HOURS NEEDED 1 tablet EVERY 6-8 HOURS NEEDED (route: oral) Med Classific ation: Analgesic , Anti-infl ammatory or Antipyret ic Invega Sustenna 234 mg/1.5 mL intramuscul ar syringe 09-01 00:00: 00 Yes [id number] 234 mg MONTHLY 234 mg MONTHLY (route: intramuscu lar) Med Classific ation: Central Nervous System Agents lithium carbonate ER 300 mg tablet,exte nded release 09-01 00:00: 00 Yes [id number] 2 tablet BEDTIME 2 tablet BEDTIME (route: oral) Med Classific ation: Central Nervous System Agents lithium carbonate ER 450 mg tablet,exte nded release 09-01 00:00: 00 Yes [id number] 1 tablet DAILY 1 tablet DAILY (route: oral) Med Classific ation: Central Nervous System Agents multivitami n tablet 09-01 00:00: 00 Yes [id number] 1 tablet DAILY 1 tablet DAILY (route: oral) Med Classific ation: Electroly te Balance-N utritiona l Products olanzapine 10 mg tablet 09-01 00:00: 00 Yes [id number] 2 tablet BEDTIME 2 tablet BEDTIME (route: oral) Med Classific ation: Central Nervous System Agents Vitamin D3 10 mcg (400 unit) capsule 09-01 00:00: 00 Yes [id number] 1 capsule DAILY 1 capsule DAILY (route: oral) Med Classific ation: Electroly te Balance-N utritiona l Products NITROFURANT OIN ORAL 2018-05 00:00: 00 05-14 00:00 :00 No 1 [id number] g Twice daily 1 [id number] Twice daily (route: ) Med Classific ation: ANTI-INFE CTIVE AGENTS Immunizations Ordered Immunization Name Filled Immunization Name Date Status Comments Refusal Reason INFLUENZA, TIV (INACTIVATED) 2024-05-26 00:00:00 Vital Signs Vital Name Observation Time Observation Value Commen ts BMI (%) 2024-09-05 19:55:50.000 42 kg/m2 Height 2024-09-05 19:55:35.000 62 [in_us] Weight (lbs) 2024-09-05 19:55:50.000 230 [lb_av] Plan of Treatment Planned Activity Planned Date Details Comments Future Scheduled Test SKILLED NU RSE TO EVALUATE PATIENT, IDENTIFY PRIMARY AND CO-MORBID CONDITIONS CODED PER CODING GUIDELINES, AND DEVELOP PATIENT SPECIFIC PLAN OF CARE THAT INCLUDES PATIENT GOAL FOR HOME HEALTH. [code = SKILLED NURSE TO EVALUATE PATIENT, IDENTIFY PRIMARY AND CO-MORBID CONDITIONS CODED PER CODING GUIDELINES, AND DEVELOP PATIENT SPECIFIC PLAN OF CARE THAT INCLUDES PATIENT GOAL FOR HOME HEALTH.] Future Scheduled Test SKILLED NU RSE WILL MAINTAIN SITUATIONAL AWARENESS FOR SAFETY AND WILL NOTIFY CLINICAL WAREHOUSE FORKLIFT OPERATOR AND PHYSICIAN/PROVIDER WITH ANY CHANGE IN CONDITION. [code = SKILLED NURSE WILL MAINTAIN SITUATIONAL AWARENESS FOR SAFETY AND WILL NOTIFY CLINICAL WAREHOUSE FORKLIFT OPERATOR AND PHYSICIAN/PROVIDER WITH ANY CHANGE IN CONDITION.] Future Scheduled Test SKILLED NU RSE TO ASSESS PATIENTS PSYCHOSOCIAL STATUS TO IDENTIFY POTENTIAL ISSUES THAT MAY COMPLICATE THE PROVISION OF THE PLAN OF CARE INCLUDING THE PATIENTS ABILITY TO ACCESS COMMUNITY RESOURCES AND PSYCHOSOCIAL SUPPORT SERVICES. [code = SKILLED NURSE TO ASSESS PATIENTS PSYCHOSOCIAL STATUS TO IDENTIFY POTENTIAL ISSUES THAT MAY COMPLICATE THE PROVISION OF THE PLAN OF CARE INCLUDING THE PATIENTS ABILITY TO ACCESS COMMUNITY RESOURCES AND PSYCHOSOCIAL SUPPORT SERVICES.] Future Scheduled Test SKILLED NU RSE FOR O/A OF ALTERED MOOD [code = SKILLED NURSE FOR O/A OF ALTERED MOOD] Future Scheduled Test SKILLED NU RSE FOR ADMINISTRATION AND TEACHING OF PRESCRIBED INJECTION THERAPY FOR INVEGA SUSTENNA 234 MG/1.5 ML INTRAMUSCULAR [id number] MG, MONTHLY [code = SKILLED NURSE FOR ADMINISTRATION AND TEACHING OF PRESCRIBED INJECTION THERAPY FOR INVEGA SUSTENNA 234 MG/1.5 ML INTRAMUSCULAR [id number] MG, MONTHLY] Future Scheduled Test SKILLED NU RSE TO REVIEW PATIENT MEDICATIONS. INSTRUCT PATIENT/CAREGIVER ON MONITORING OF EFFECTIVENESS, ADVERSE DRUG REACTIONS, SIDE EFFECTS OF ALL MEDICATIONS (PRESCRIPTION/-OTC), AND HOW AND WHEN TO REPORT PROBLEMS. [code = SKILLED NURSE TO REVIEW PATIENT MEDICATIONS. INSTRUCT PATIENT/CAREGIVER ON MONITORING OF EFFECTIVENESS, ADVERSE DRUG REACTIONS, SIDE EFFECTS OF ALL MEDICATIONS (PRESCRIPTION/-OTC), AND HOW AND WHEN TO REPORT PROBLEMS.] Future Scheduled Test SKILLED NU RSE TO O/A OF PATIENTS MENTAL/BEHAVIORAL STATUS, ASSESS VITAL SIGNS EACH VISIT ALLOW 2 PRNS FOR MEDICATION MANAGEMENT. [code = SKILLED NURSE TO O/A OF PATIENTS MENTAL/BEHAVIORAL STATUS, ASSESS VITAL SIGNS EACH VISIT ALLOW 2 PRNS FOR MEDICATION MANAGEMENT.] Future Scheduled Test PATIENT TREVINO S A RISK OF HOSPITALIZATION AND ED USE. SKILLED NURSE TO ESTABLISH SUPPORT MEASURES TO MINIMIZE RISK OF HOSPITALIZATION AND ED USE, AND INSTRUCT PATIENT/CAREGIVER ON METHODS TO REDUCE AVOIDABLE HOSPITALIZATION AND ED USE. [code = PATIENT HAS A RISK OF HOSPITALIZATION AND ED USE. SKILLED NURSE TO ESTABLISH SUPPORT MEASURES TO MINIMIZE RISK OF HOSPITALIZATION AND ED USE, AND INSTRUCT PATIENT/CAREGIVER ON METHODS TO REDUCE AVOIDABLE HOSPITALIZATION AND ED USE.] Goal Patient Goal - T O BE COMPLIANT WITH TAKING MEDICATION Goal Provider Goal - A PLAN OF CARE WILL BE ESTABLISHED THAT MEETS PATIENT'S LONG-TERM NEEDS AND INCLUDES PATIENT GOAL FOR HOME HEALTH. Goal Provider Goal - PATIENT WILL REMAIN SAFE IN THE COMMUNITY AND WILL BE FREE OF DANGER TO SELF AND OTHERS THROUGHOUT THE CERTIFICATION PERIOD. Goal Provider Goal - PSYCHOSOCIAL NEEDS WILL BE IDENTIFIED AND PLAN IMPLEMENTED TO MINIMIZE RISK THROUGHOUT CERTIFICATION PERIOD. Goal Provider Goal - PATIENT WILL BE ABLE TO PERFORM DAILY FUNCTIONS AND HAVE OPTIMAL IMPROVEMENT IN MOOD STABILITY THROUGHOUT CERTIFICATION PERIOD. Goal Provider Goal - PATIENT WILL RECEIVE INVEGA DUSTENNA 235MG/1.5 ML MONTHLY ORDERED. PATIENT/CAREGIVER WILL VERBALIZE/DEMONSTRATE KNOWLEDGE OF INJECTION THERAPY BY THE END OF THE CERTIFICATION PERIOD. Goal Provider Goal - PATIENT/CAREGIVER WILL VERBALIZE UNDERSTANDING OF EDUCATION PROVIDED ON MEDICATIONS BY THE END OF THE CERTIFICATION PERIOD. Goal Provider Goal - ALTERED MENTAL/BEHAVIORAL STATUS WILL BE IDENTIFIED PROMPTLY AND INTERVENTION INITIATED QUICKLY TO MINIMIZE ASSOCIATED RISKS THROUGHOUT CERTIFICATION PERIOD. Goal Provider Goal - PATIENT WILL HAVE SUPPORT MEASURES ESTABLISHED TO PREVENT HOSPITALIZATION AND ED USE AND PATIENT/CAREGIVER WILL VERBALIZE/DEMONSTRATE METHODS TO REDUCE AVOIDABLE HOSPITALIZATION AND ED USE BY END OF EPISODE. Progress Notes Progress Notes <paragraph>[Visit Date: 2024 by GIOVANNI HERMOSILLO RN]:</paragraph><paragraph>09-30-24 LONG-TERM VISIT MADE TO ASSESS MENTAL HEALTH STATUS SAFETY MEDICATION COMPLIANCE PATIENT LIVES IN A PENITENTIARY ALL MEDICATIONS BY PENITENTIARY STAFF. RN NEXT WEEKLY VISIT TO ASSESS MENTAL HEALTH STATUS . NO ISSUES THIS AFTERNOON COMPLIANT TAKE MEDICATIONS FROM PENITENTIARY ...</paragraph> Encounters Start Date/Time End Date/Time Encounter Type Admission Type Attending [facility] Care Facility Care Department Encounter ID Discharge Date Discharge Status Discharge Condition Discharge Reason Percent Goals Met 2024-09-01 00:00:00 2024-10-30 00:00:00 Outpatient GIOVANNI COVARRUBIAS [facility] [id number] [phone]
== END 2024-10-04 09:54 | disposition home or self-care (01) ==
LOC: HO.HMCH 09:36
PROVIDERS: PCP Internal Medicine; Visit Provider Internal Medicine
DX: Z11.1 Encounter for screening for respiratory tuberculosis (principal)

== ENCOUNTER → 2024-10-04 09:36 | Outpatient (BNVA) | payer MEDICARE, MEDICAID, SELFPAY | PROVIDERS: PCP Internal Medicine; Visit Provider Internal Medicine | DX: Z11.1 Encounter for screening for respiratory tuberculosis (principal) | CPT/HCPCS: 86580 ==

== ENCOUNTER → 2024-10-06 09:54 | Outpatient (BNVA) | payer MEDICARE, MEDICAID, SELFPAY | PROVIDERS: PCP Internal Medicine; Visit Provider Internal Medicine ==

== ENCOUNTER 2024-10-25 10:03 | Outpatient (AMB) | payer MEDICARE, MEDICAID, SELFPAY ==
--- NOTE | 2024-10-25 10:17 | A.OFFPC_ITS ---
Intake Visit Reasons: AWV Allergies acetaminophen [From TYLENOL] Allergy (Intermediate, Verified 08/26/24 10:54) HIVES meperidine [From Demerol] Allergy (Verified 08/26/24 10:54) Unknown Tobacco use date assessed: 08/26/24 Dental Screening Dental Screen Date: 08/26/24 [facility] Medical History Postmenopausal bleeding Postmenopausal Schizoaffective disorder Rosacea, acne Hypertension Obesity Surgical History Delivery by section Social History Household Members: None Household Members Other:: Meño Langston Carol, Kevin Housing: Assisted Living Facility Housing Other:: Group living environment Do you presently have visiting nurse or other home services: Yes ([facility]) Unable to assess alcohol history related to: Unknown Alcohol intake: current Alcohol intake frequency: does not drink Comment: patient asleep at start of shift Patient Tobacco Use Status: Current everyday Tobacco user Tobacco use type: Cigarette Cigarette Packs Per Day: 0.5 Cigarettes Per Day: 7 e-Cigarette/Vaping Use: Never Used Second Hand Smoke Exposure: Yes Substance Use Type: Marijuana Advance Directives Date on File: 11/06/20 service: No Current occupational status: disabled Sexual orientation: Unable to collect Cognitive needs: No Hearing needs: No Vision needs: No Questionnaire Thrive Questionnaire Date Thrive assessed: 08/26/24 CLEMENTE-7 AMB Questionnaire CLEMENTE-7 Date CLEMENTE - 7 assessed: 08/26/24 Source: Developed by Drs. Viktor Lopez, Josee Ibarra, Chay Galvan and colleagues, with an educational khurram from [employer]. Physical exam (Primary Care) Tobacco/Smoking Status: Tobacco use Status Tobacco use date assessed 08/26/24 08/26/24 10:48 Patient Tobacco Use Status Current everyday Tobacco 08/26/24 10:48 Tobacco use type Cigarette 08/26/24 10:47 e-Cigarette/Vaping Use Never Used 08/26/24 10:47 Thrive Assessment: Date of Thrive Assessment Date Thrive assessed 08/26/24 08/26/24 10:41 Coding Assessment & Plan Assessment & Plan Orders: Orders AMB Hemoglobin A1c Today E11.65 - Type 2 diabetes mellitus with hyperglycemia
--- NOTE | 2024-10-25 10:18 | AM.OFFVISMDC ---
Intake Vital Signs 10/25/24 10:21 Height 5 ft 2 in Weight 197 lb 4 oz BMI 36.1 BP 140/60 H Blood Pressure Location Lt brachial Position Sitting Pulse 91 Pulse Source Pulse Oximeter Temp 97.3 F Temp Source Temporal Artery Scan Pulse Oximetry (%) 98 Oxygen Delivery Method Room Air Intake Visit Reasons: AWV Intake Note: Patient is here for an Annual Wellness Visit. Parent Trainer Required: No Infectious Disease Technician: Infectious Disease Technician Present and Infectious Disease Technician offered & declined Accompanied by: Staff Allergies acetaminophen [From TYLENOL] Allergy (Intermediate, Verified 10/25/24 10:45) HIVES meperidine [From Demerol] Allergy (Verified 10/25/24 10:45) Unknown Medication List - Last Reconciled 10/25/24 by Michelle Garcia PA-C albuterol sulfate 90 mcg/actuation (Ventolin HFA) 2 puffs inhalation Q4-6H PRN cholecalciferol (vitamin D3) (Vitamin D3) 10 mcg PO DAILY 30 days ibuprofen 600 mg PO Q8H PRN lithium carbonate ER 600 mg (2 x 300 mg) PO BEDTIME 30 days lithium carbonate ER 450 mg PO DAILY 30 days metronidazole 0.75% 1 appl topical DAILY multivitamin (Daily Multi-Vitamin tablet) 1 tab PO DAILY 30 days olanzapine 20 mg (2 x 10 mg) translingual BEDTIME 30 days paliperidone palmitate (Invega Sustenna) 234 mg (1.5 mL) IM Q30D white petrolatum-mineral oil (Dermacerin topical cream) 1 appl See Protocol topical BID HPI AWV HPI Details 54-year-old female with past medical history of obesity, schizoaffective disorder, hypercholesterolemia, diabetes mellitus, tobacco abuse, elevated blood pressure last seen 08/2024 coming in for annual wellness visit. Presenting with skin rash, visual issues, and other health maintenance concerns. Reports ongoing facial rash linked to dry skin, seeking dermisin cream from [facility] due to difficulty obtaining it. Experiencing episodic blurred vision since taking lithium; prescription glasses resulted in improvement until broken. Cigarette consumption reduced to 5-7 per day, with future abstention intended by summer's end. Depression considered mild and effectively managed under psychiatric care, with visits every two months. No interest in therapy currently. [facility] Medical History Postmenopausal bleeding Postmenopausal Schizoaffective disorder Rosacea, acne Hypertension Obesity Surgical History Delivery by section Social History Household Members: None Household Members Other:: Ivis, Meño, Samia, Jhony Housing: Assisted Living Facility Housing Other:: Group living environment Do you presently have visiting nurse or other home services: Yes ([facility]) Unable to assess alcohol history related to: Unknown Alcohol intake: current Alcohol intake frequency: does not drink Comment: patient asleep at start of shift Patient Tobacco Use Status: Current everyday Tobacco user Tobacco use type: Cigarette Cigarette Packs Per Day: 0.5 Cigarettes Per Day: 7 e-Cigarette/Vaping Use: Never Used Second Hand Smoke Exposure: Yes Substance Use Type: Marijuana Advance Directives Date on File: 11/06/20 service: No Current occupational status: disabled Sexual orientation: Unable to collect Cognitive needs: No Hearing needs: No Vision needs: No Questionnaire Medicare Wellness Checkup What is your age?: 65-69 (54) What gender do you identify with?: female During the past 4 weeks, how much have you been bothered by emotional problems such as feeling anxious, depressed, irritable, sad or downhearted, and blue?: slightly During the past 4 weeks, has your physical & emotional health limited your social activities with family, friends, neighbors, or groups?: not at all During the past 4 weeks, how much bodily pain have you generally had?: mild pain During the past 4 weeks, was someone available to help you if you needed & wanted help?: yes, as much as I wanted During the past 4 weeks, what was the hardest physical activity you could do for at least 2 minutes?: moderate Can you get to places out of walking distance without help? (For eg., can you travel alone on buses, taxis or drive your car?): No Can you go shopping for groceries or clothes without someone's help?: No Can you prepare your own meals?: Yes Can you do your housework without help?: No Because of any health problems, do you need the help of another person with your personal care needs such as eating, bathing, dressing or getting around the house?: No Can you handle your own money without help?: Yes During the past 4 weeks, how would you rate your health in general?: good During the past 4 weeks how have things been going for you?: pretty well Are you having difficulties driving your car?: not applicable, I don't use a car Do you always fasten your seat belt when you are in a car?: yes, usually During past 4 weeks, have you been bothered by the following: never: Falling or dizzy when standing up, Sexual problems?, Trouble eating well? and Problems using the telephone?, often: Tiredness or fatigue? and always: Teeth or denture problems? Have you fallen 2 or more times in the past year?: No Are you afraid of falling?: Yes Are you a smoker?: yes, and I might quit During the past 4 weeks, how many drinks of wine, beer, or other alcoholic beverages did you have?: no alcohol at all Do you exercise for about 20 minutes 3 or more times a week?: yes, most of the time Have you been given information to help with the following?: yes: Hazards in your house that might hurt you? and yes: Keeping track of your medications? How often do you have trouble taking medicines the way you have been told to take them?: I always take medicine as prescribed How confident are you that you can control & manage most of your health problems?: somewhat confident What is your race?: White PHQ-9 Over the last 2 weeks, how often have you been bothered by any of the following problems? 1. Little interest or pleasure in doing things: several days 2. Feeling down, depressed, or hopeless: not at all 3. Trouble falling or staying asleep, or sleeping too much: not at all 4. Feeling tired or having little energy: several days 5. Poor appetite or overeating: several days 6. Feeling bad about yourself - or that you are a failure or have let yourself or your family down: not at all 7. Trouble concentrating on things, such as reading the newspaper or watching television: not at all 8. Moving or speaking so slowly that other people could have noticed. Or the opposite - being so fidgety or restless that you have been moving around a lot more than usual: not at all 9. Thoughts that you would be better off or of hurting yourself in some way: not at all Total score: 3 Depression Screening Interpretation: Positive Depression Screening Follow-up: Existing condition and In treatment Depression Screening Done: Yes Source: Developed by Drs. Viktor Lopez, Chay Underwood and colleagues, with an educational khurram from [employer]. Thrive Questionnaire Date Thrive assessed: 08/26/24 CLEMENTE-7 AMB Questionnaire CLEMENTE-7 Date CLEMENTE - 7 assessed: 08/26/24 Source: Developed by Drs. Viktor Lopez, Josee Ibarra, Chay Galvan and colleagues, with an educational khurram from [employer]. Review of Systems Const Denies body aches, Denies chills, Denies fever(s), Denies headache(s) and Denies poor appetite Eyes Reports no additional complaints and Reports requires corrective lenses ENT Denies dysphagia, Denies dizziness, Denies headache(s) and Denies odynophagia Card Denies chest pain, Denies syncope, Denies edema, Denies irregular heart rhythm, Denies lightheadedness and Denies dyspnea Resp Denies cough and Denies dyspnea GI Denies abdominal pain, Denies constipation, Denies dysphagia, Denies diarrhea, Denies nausea, Denies odynophagia and Denies vomiting Reports no additional complaints Musc Reports no additional complaints and Denies abnormal gait Skin/Breast Details: facial rash Reports system reviewed and no additional complaints, except as documented Neuro Denies abnormal gait, Denies dizziness, Denies syncope and Denies headache(s) Psych Reports no additional complaints Physical Exam Vital Signs: Last Vital Signs Temp 97.3 F 10/25/24 10:21 Pulse 91 10/25/24 10:21 BP 140/60 H 10/25/24 10:21 Pulse Ox 98 10/25/24 10:21 Oxygen Delivery Method Room Air 10/25/24 10:21 BMI result Body Mass Index 36.1 Const General: cooperative, healthy appearing, comfortable and no acute distress Orientation/consciousness: patient oriented x3 HEENT Other: Dry flaking skin of the face Head: Yes normocephalic Ears: hearing grossly normal bilaterally, external ears normal, TM's normal bilaterally, EAC's normal and Abnormal EAC present (Dry flaky skin) General nose exam: Normal external nose present Face and sinus: Yes normal facial exam and Yes sinuses nontender Mouth: Normal oral and palatal mucosa present and tongue normal Throat: Yes posterior oropharynx normal Eyes General: appearance normal, both eyes and all related structures Conjunctivae: conjunctivae normal Pupils: Equal, round and reactive pupils present EOM: EOMs intact bilaterally and No Nystagmus present Neck Neck: Yes normal visual inspection, Yes full ROM and Yes no lymphadenopathy Chest Chest palpation & inspection: normal inspection of the chest Resp Effort & Inspection: normal respiratory effort Auscultation: clear to auscultation bilaterally, no crackles, no rales, no rhonchi, no wheezes and breath sounds present Cardio Rate: regular rate Rhythm: regular rhythm Peripheral pulses: radial pulses present and dorsalis pedis present GI Other: Declines GI exam today General: Yes no CVA tenderness Back/Spine/Pelvis Back: no CVA tenderness Skin General skin exam: no rashes or lesions noted Neuro General: patient oriented x3 Cranial nerves: Yes Equal, round and reactive pupils present, Yes Midline tongue present, Yes Ability to bilaterally elevate shoulders present and No Nystagmus present Gait exam (Neuro): Normal gait present Extrem General: Yes normal to inspection, Yes full ROM, No no pedal edema and No edema Psych Speech and movement: Normal speech and movement present Affect: normal affect Insight: Good insight present (Psych) Judgement: Good judgement present (Psych) Assessment & Plan Assessment & Plan (1) Encounter for Medicare annual wellness exam: Comment: Colonoscopy at age 46 yo at [facility] - normal per pt. Declines flu. Code(s): Z00.00 - Encounter for general adult medical examination without abnormal findings Plan: Per patient she is up-to-date on her colonoscopy. She is declining mammogram, cervical cancer screening and additional vaccinations. Healthy diet and regular exercise is encouraged. Andreafski of care was reviewed with patient patient was provided with a written screening schedule. Healthcare proxy/ MOLST forms were reviewed with patient and states she has already completed these in the are on file. (2) Obesity: Code(s): E66.9 - Obesity, unspecified Qualifiers: Obesity type: due to excess calories Obesity classification: adult class 2 (BMI 35 - 39.9) Serious obesity comorbidity presence: without serious comorbidity Body mass index: BMI 39.0-39.9 Qualified Code(s): E66.09 - Other obesity due to excess calories; Z68.39 - Body mass index [BMI] 39.0-39.9, adult Plan: Healthy diet and regular exercise is encouraged. (3) Schizoaffective disorder: Comment: 50 yo female, long hx of psychosis and substance abuse, in [place] [facility] care setting since April 2019, when she found her partner had overdosed on heroin. Both were brought to ER, and pt watched partner . 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 While at the alf, pt stopped INFANTE medication regime, was in the home during the heightend state of the COVID pandemic and made poor alliances with her team due to her psychosis. She was admitted for re-stabilization and re-titration of medications. Code(s): F25.9 - Schizoaffective disorder, unspecified Qualifiers: Schizoaffective disorder type: bipolar Qualified Code(s): F25.0 - Schizoaffective disorder, bipolar type Plan: Continue on current medication regimen and continue to follow with [facility] for psychiatric care. (4) Vitamin D deficiency: Code(s): E55.9 - Vitamin D deficiency, unspecified Plan: Continue on vitamin-D supplementation and monitor with routine blood work (5) Hypercholesterolemia: Code(s): E78.00 - Pure hypercholesterolemia, unspecified Plan: Avoid foods that are high in cholesterol such as red meat, fried foods, eggs and baked goods. Triglyceride goal of less than 150 and LDL goal of less than 100. Reminded patient about blood work (6) Type 2 diabetes mellitus with hyperglycemia: Code(s): E11.65 - Type 2 diabetes mellitus with hyperglycemia Plan: Decrease the amount of carbohydrates such as pasta, bread, rice, and potatoes and limit the amount of sweets. Although fruits are generally healthy they should be eaten in moderation as they are still high in sugar. Hemoglobin A1c goal of less than 7%. No longer on metformin reminded patient about blood work as she is declining in office A1c (7) Blood pressure elevated without history of HTN: Code(s): R03.0 - Elevated blood-pressure reading, without diagnosis of hypertension Plan: Avoid salt intake and encourage healthy diet and regular exercise. (8) Tobacco abuse: Comment: decreasing 5 a day (03/10/2024 Code(s): Z72.0 - Tobacco use Plan: Smoking cigarettes and the use of tobacco can be harmful. We discussed the importance of stopping and options to aid in smoking cessation. Declined nicotine replacement therapy or medication management at this time. Agrees to reach out if this should change and states she is actually working on smoking cessation. (9) Mammogram declined: Code(s): Z53.20 - Procedure and treatment not carried out because of patient's decision for unspecified reasons Plan: Continues to decline mammogram (10) Cervical cancer screening declined: Code(s): Z53.20 - Procedure and treatment not carried out because of patient's decision for unspecified reasons Plan: Declines cervical cancer screening. (11) Ear itching: Code(s): L29.9 - Pruritus, unspecified Plan: Patient has flaky skin on the outside of the ear canal recommend the use of Dermotic ear drops and follow up as needed for this concern (12) Rosacea, acne: Code(s): L71.9 - Rosacea, unspecified Plan: Refill for cream sent Plan I have requested the [facility] fill the prescription for dermisin cream with refills, addressing the patient's facial rash and dry skin concerns. For the patient's vision problems linked to previous lithium use, further assessment will occur after her new glasses have been received. Regarding smoking, she is independently pursuing cessation by the summer's end without aid, supported by her commitment to this timeline. While her mild depressive symptoms are managed under psychiatric care, there are no immediate therapeutic changes. Blood glucose monitoring via fasting blood work is scheduled for the next week to accurately evaluate her glycemic status. No changes on screenings as the patient declines mammography, Pap smears, and future colonoscopies. Vaccinations remain current. This note was constructed using voice recognition software. While every effort has been made to ensure accuracy and beautician apprentice, still areas may have been included sometimes these areas may affect the content or meeting of the given symptoms. Total time spent caring for the patient today was 30 minutes. This includes time spent before the visit reviewing the chart, time spent during the visit, and time spent after the visit and documentation. Patient was informed and verbally consented to the use of an ambient scribe for clinic note documentation during this visit. Medications: New fluocinolone acetonide oil 0.01% (DermOtic Oil) 5 drps otic (ears) BID 7 days PRN 20 mL 0RF ear itching Refilled albuterol sulfate 90 mcg/actuation (Ventolin HFA) 2 puffs inhalation Q4-6H PRN 8.5 grams 1RF bronchospasm ibuprofen 600 mg PO Q8H PRN 30 tabs 0RF pain lithium carbonate ER 600 mg (2 x 300 mg) PO BEDTIME 30 days 60 tabs 0RF paliperidone palmitate (Invega Sustenna) 234 mg (1.5 mL) IM Q30D 1.5 mL 0RF lithium carbonate ER 450 mg PO DAILY 30 days 30 tabs 0RF metronidazole 0.75% 1 appl topical DAILY 1 units 0RF olanzapine 20 mg (2 x 10 mg) translingual BEDTIME 30 days 60 tabs 0RF white petrolatum-mineral oil (Dermacerin topical cream) 1 appl See Protocol topical BID 1 units 1RF Quality Reporting (2019) Depression/Bipolar (159/160/161/177) PHQ-9: Total score: 3 Coding Level of Care Code Medicare Subsequent (G0439) Diagnoses Encounter for Medicare annual wellness exam Z00.00 Class 2 obesity due to excess calories without serious comorbidity with body mass index (BMI) of 39.0 to 39.9 in adult E66.09; Z68.39 Obesity type: due to excess calories Obesity classification: adult class 2 (BMI 35 - 39.9) Serious obesity comorbidity presence: without serious comorbidity Body mass index: BMI 39.0-39.9 Schizoaffective disorder, bipolar type F25.0 Schizoaffective disorder type: bipolar Vitamin D deficiency E55.9 Hypercholesterolemia E78.00 Type 2 diabetes mellitus with hyperglycemia E11.65 Blood pressure elevated without history of HTN R03.0 Tobacco abuse Z72.0 Mammogram declined Z53.20 Cervical cancer screening declined Z53.20 Ear itching L29.9 Rosacea, acne L71.9 CPT Codes Advance Care Planning - Advance Care Planning discussion: On file, no changes ([id number]) Advance Care Planning - Time spent: 1-15 minutes, on File ([id number]) Advance Care Planning Advance Care Planning discussion: On file, no changes Who was present: [facility] worker, patient, myself Time spent: 1-15 minutes, on File
[2024-10-25 10:21] VITALS: BP 140/60; PULSE 91; TEMP 36.3; O2SAT 98; BMI 36.1
--- OUTSIDE RECORDS SUMMARY | 2024-10-25 10:58 | XMS_ITS | Clinical Summary ---
Author Organization Unknown Care Team Providers Care Fire Prevention Captain Name Role Phone IRIS MANUEL, BERNARDA Unavailable Unavailable BAY LOMELI, GIOVANNI Unavailable Unavailable Payers Payer Name Policy Type Policy Number Effective Date Expira tion Date [place] - [place] [id number] ON DEMAND MEDICARE - [facility] BILL[facility] - ABN [id number] Problems Condition Name Condition Details Condition Category [...] 2019-05 00:00: 00 11-08 23:59 :00 No [id number] 234 mg MONTHLY 234 mg MONTHLY (route: intramuscu lar) Med Classific ation: Central Nervous System Agents metronidazo le 1 % topical gel 11-02 00:00: 00 11-10 23:59 :00 No [id number] 1 cm DAILY 1 cm DAILY (route: topical) Med Classific ation: Dermatolo gical Invega Sustenna 234 mg/1.5 mL intramuscul ar syringe 11-03 00:00: 00 08-29 23:59 :00 No [id number] 234 mg DIRECTED 234 mg DIRECTED (route: intramuscu lar) Med Classific ation: Central Nervous System Agents lorazepam 0.5 mg tablet 11-02 00:00: 00 11-10 23:59 :00 No [id number] 0.5 mg DAILY 0.5 mg DAILY (route: oral) Med Classific ation: Central Nervous System Agents duloxetine 20 mg capsule,del ayed release 11-03 00:00: 00 11-10 23:59 :00 No [id number] 20 mg DAILY 20 mg DAILY (route: oral) Med Classific ation: Central Nervous System Agents olanzapine 10 mg disintegrat ing tablet 11-03 00:00: 00 11-13 23:59 :00 No [id number] 10 mg DAILY 10 mg DAILY (route: oral) Med Classific ation: Central Nervous System Agents olanzapine 20 mg disintegrat ing tablet 11-02 00:00: 00 11-13 23:59 :00 No [id number] 20 mg DAILY 20 mg DAILY (route: oral) Med Classific ation: Central Nervous System Agents albuterol sulfate HFA 90 mcg/actuati on aerosol inhaler 09-01 00:00: 00 Yes [id number] 2 puff EVERY 4 HOURS 2 puff EVERY 4 HOURS (route: inhalation ) Med Classific ation: Respirato ry Therapy Agents ibuprofen 600 mg tablet 09-01 00:00: 00 Yes [id number] 1 tablet EVERY 6-8 HOURS NEEDED 1 tablet EVERY 6-8 HOURS NEEDED (route: oral) Med Classific ation: Analgesic , Anti-infl ammatory or Antipyret ic Invega Sustenna 234 mg/1.5 mL intramuscul ar syringe 09-01 00:00: 00 Yes [id number] 234 mg MONTHLY 234 mg MONTHLY (route: intramuscu lar) Med Classific ation: Central Nervous System Agents lithium carbonate ER 300 mg tablet,exte nded release 09-01 00:00: 00 Yes [id number] 2 tablet BEDTIME 2 tablet BEDTIME (route: oral) Med Classific ation: Central Nervous System Agents lithium carbonate ER 450 mg tablet,exte nded release 09-01 00:00: 00 Yes [id number] 1 tablet DAILY 1 tablet DAILY (route: oral) Med Classific ation: Central Nervous System Agents multivitami n tablet 09-01 00:00: 00 Yes [id number] 1 tablet DAILY 1 tablet DAILY (route: oral) Med Classific ation: Electroly te Balance-N utritiona l Products olanzapine 10 mg tablet 09-01 00:00: 00 Yes [id number] 2 tablet BEDTIME 2 tablet BEDTIME (route: oral) Med Classific ation: Central Nervous System Agents Vitamin D3 10 mcg (400 unit) capsule 09-01 00:00: 00 Yes [id number] 1 capsule DAILY 1 capsule DAILY (route: oral) Med Classific ation: Electroly te Balance-N utritiona l Products NITROFURANT OIN ORAL 2018-05 00:00: 00 05-14 00:00 :00 No 1 [id number] g Twice daily 1 [id number] Twice daily (route: ) Med Classific ation: [...] AWARENESS FOR SAFETY AND WILL NOTIFY CLINICAL PLASTER AND STUCCO WORKER AND PHYSICIAN/PROVIDER WITH ANY CHANGE IN CONDITION. [code = SKILLED NURSE WILL MAINTAIN SITUATIONAL AWARENESS FOR SAFETY AND WILL NOTIFY CLINICAL PLASTER AND STUCCO WORKER AND PHYSICIAN/PROVIDER WITH ANY CHANGE IN CONDITION.] [...] FOR INVEGA SUSTENNA 234 MG/1.5 ML INTRAMUSCULAR [id number] MG, MONTHLY [code = SKILLED NURSE FOR ADMINISTRATION AND TEACHING OF PRESCRIBED INJECTION THERAPY FOR INVEGA SUSTENNA 234 MG/1.5 ML INTRAMUSCULAR [id number] MG, MONTHLY] Future Scheduled Test SKILLED NU [...] CARE WILL BE ESTABLISHED THAT MEETS PATIENT'S [facility] NEEDS AND INCLUDES PATIENT GOAL FOR HOME [...] AND ED USE BY END OF EPISODE. Encounters Start Date/Time End Date/Time Encounter Type Admission Type [facility] Care Facility Care Department Encounter ID Discharge Date Discharge Status Discharge Condition Discharge Reason Percent Goals Met 2024-09-01 00:00:00 2024-10-30 00:00:00 Outpatient GIOVANNI COVARRUBIAS [facility] [id number] 5.88
== END 2024-10-25 11:10 | disposition home or self-care (01) ==
LOC: HO.HMCH 10:05
PROVIDERS: PCP Internal Medicine
DX: Z00.00 Encounter for general adult medical examination without abnormal findings (principal); F25.0 Schizoaffective disorder, bipolar type; E11.65 Type 2 diabetes mellitus with hyperglycemia; E66.09 Other obesity due to excess calories; Z68.39 Body mass index [BMI] 39.0-39.9, adult; E55.9 Vitamin D deficiency, unspecified; E78.00 Pure hypercholesterolemia, unspecified; R03.0 Elevated blood-pressure reading, without diagnosis of hypertension; Z72.0 Tobacco use; Z53.20 Procedure and treatment not carried out because of patient's decision for unspecified reasons; L29.9 Pruritus, unspecified; L71.9 Rosacea, unspecified

== ENCOUNTER → 2024-10-25 10:03 | Outpatient (BNVA) | payer MEDICARE, MEDICAID, SELFPAY | PROVIDERS: PCP Internal Medicine ==

== ENCOUNTER 2024-12-29 13:59 | Inpatient (IN) | payer MEDICARE, MEDICAID, SELFPAY ==
--- OUTSIDE RECORDS SUMMARY | 2024-12-28 20:00 | XMS_ITS | Clinical Summary ---
Author Organization Unknown Care Team Providers Care Can Operator Name Role Phone IRIS MANUEL, BERNARDA Unavailable Unavailable BAY LOMELI, GIOVANNI Unavailable Unavailable Payers Payer Name Policy Type Policy Number Effective Date Expira tion Date [place] [id number] ON DEMAND MEDICARE - [facility] BILLING - ABN [id number] Problems Condition Name Condition Details Condition Category [...] 2019-05 00:00: 00 11-08 23:59 :00 No [id number] 234 mg MONTHLY 234 mg MONTHLY (route: intramuscu lar) Med Classific ation: Central Nervous System Agents metronidazo le 1 % topical gel 11-02 00:00: 00 11-10 23:59 :00 No [id number] 1 cm DAILY 1 cm DAILY (route: topical) Med Classific ation: Dermatolo gical Invega Sustenna 234 mg/1.5 mL intramuscul ar syringe 11-03 00:00: 00 08-29 23:59 :00 No [id number] 234 mg DIRECTED 234 mg DIRECTED (route: intramuscu lar) Med Classific ation: Central Nervous System Agents lorazepam 0.5 mg tablet 11-02 00:00: 00 11-10 23:59 :00 No [id number] 0.5 mg DAILY 0.5 mg DAILY (route: oral) Med Classific ation: Central Nervous System Agents duloxetine 20 mg capsule,del ayed release 11-03 00:00: 00 11-10 23:59 :00 No [id number] 20 mg DAILY 20 mg DAILY (route: oral) Med Classific ation: Central Nervous System Agents olanzapine 10 mg disintegrat ing tablet 11-03 00:00: 00 11-13 23:59 :00 No [id number] 10 mg DAILY 10 mg DAILY (route: oral) Med Classific ation: Central Nervous System Agents olanzapine 20 mg disintegrat ing tablet 11-02 00:00: 00 11-13 23:59 :00 No [id number] 20 mg DAILY 20 mg DAILY (route: oral) Med Classific ation: Central Nervous System Agents albuterol sulfate HFA 90 mcg/actuati on aerosol inhaler 09-01 00:00: 00 Yes [id number] 2 puff EVERY 4 HOURS 2 puff EVERY 4 HOURS (route: inhalation ) Med Classific ation: Respirato ry Therapy Agents ibuprofen 600 mg tablet 09-01 00:00: 00 Yes [id number] 1 tablet EVERY 6-8 HOURS NEEDED 1 tablet EVERY 6-8 HOURS NEEDED (route: oral) Med Classific ation: Analgesic , Anti-infl ammatory or Antipyret ic Invega Sustenna 234 mg/1.5 mL intramuscul ar syringe 09-01 00:00: 00 Yes [id number] 234 mg MONTHLY 234 mg MONTHLY (route: intramuscu lar) Med Classific ation: Central Nervous System Agents lithium carbonate ER 300 mg tablet,exte nded release 09-01 00:00: 00 Yes [id number] 2 tablet BEDTIME 2 tablet BEDTIME (route: oral) Med Classific ation: Central Nervous System Agents lithium carbonate ER 450 mg tablet,exte nded release 09-01 00:00: 00 Yes [id number] 1 tablet DAILY 1 tablet DAILY (route: oral) Med Classific ation: Central Nervous System Agents multivitami n tablet 09-01 00:00: 00 Yes [id number] 1 tablet DAILY 1 tablet DAILY (route: oral) Med Classific ation: Electroly te Balance-N utritiona l Products olanzapine 10 mg tablet 09-01 00:00: 00 Yes [id number] 2 tablet BEDTIME 2 tablet BEDTIME (route: oral) Med Classific ation: Central Nervous System Agents Vitamin D3 10 mcg (400 unit) capsule 09-01 00:00: 00 Yes [id number] 1 capsule DAILY 1 capsule DAILY (route: oral) Med Classific ation: Electroly te Balance-N utritiona l Products NITROFURANT OIN ORAL 2018-05 00:00: 00 05-14 00:00 :00 No 1 [id number] g Twice daily 1 [id number] Twice daily (route: ) Med Classific ation: ANTI-INFE CTIVE AGENTS Immunizations Ordered Immunization Name Filled Immunization Name Date Status Comments Refusal Reason INFLUENZA, TIV (INACTIVATED) 2024-05-26 00:00:00 Plan of Treatment Planned Activity Planned Date [...] AWARENESS FOR SAFETY AND WILL NOTIFY CLINICAL CONSTRUCTION GRIP AND PHYSICIAN/PROVIDER WITH ANY CHANGE IN CONDITION. [code = SKILLED NURSE WILL MAINTAIN SITUATIONAL AWARENESS FOR SAFETY AND WILL NOTIFY CLINICAL CONSTRUCTION GRIP AND PHYSICIAN/PROVIDER WITH ANY CHANGE IN CONDITION.] Future Scheduled Test SKILLED NU RSE TO PERFORM HOME SAFETY AND FALL ASSESSMENT AND PROVIDE INSTRUCTION TO IMPLEMENT HOME SAFETY AND FALL PREVENTION STRATEGIES. [code = SKILLED NURSE TO PERFORM HOME SAFETY AND FALL ASSESSMENT AND PROVIDE INSTRUCTION TO IMPLEMENT HOME SAFETY AND FALL PREVENTION STRATEGIES.] Future Scheduled Test PATIENT TREVINO S A [...] TO REDUCE AVOIDABLE HOSPITALIZATION AND ED USE.] Future Scheduled Test SKILLED NU RSE TO O/A OF PATIENTS MENTAL/BEHAVIORAL STATUS, ASSESS VITAL SIGNS EACH VISIT ALLOW 2 PRNS FOR MEDICATION MANAGEMENT. [code = SKILLED NURSE TO O/A OF PATIENTS MENTAL/BEHAVIORAL STATUS, ASSESS VITAL SIGNS EACH VISIT ALLOW 2 PRNS FOR MEDICATION MANAGEMENT.] Future Scheduled Test SKILLED NU RSE TO [...] PROBLEMS.] Future Scheduled Test SKILLED NU RSE FOR ADMINISTRATION AND TEACHING OF PRESCRIBED INJECTION THERAPY FORINVEGA SUSTENNA 234 MG/1.5 ML INTRAMUSCULAR [id number] MG INJECTABLE MED) [code = SKILLED NURSE FOR ADMINISTRATION AND TEACHING OF PRESCRIBED INJECTION THERAPY FORINVEGA SUSTENNA 234 MG/1.5 ML INTRAMUSCULAR [id number] MG INJECTABLE MED)] Future Scheduled Test SKILLED NU RSE FOR O/A OF GENERAL HEALTH STATUS OF PAIN, CARDIAC, RESPIRATORY, GASTROINTESTINAL, GENITOURINARY, SKIN, NEUROLOGIC, ENDOCRINE SYSTEMS TO IDENTIFY CHANGES ASSOCIATED WITH EXACERBATION FOR EARLY INTERVENTION OF COMPLICATIONS [code = SKILLED NURSE FOR O/A OF GENERAL HEALTH STATUS OF PAIN, CARDIAC, RESPIRATORY, GASTROINTESTINAL, GENITOURINARY, SKIN, NEUROLOGIC, ENDOCRINE SYSTEMS TO IDENTIFY CHANGES ASSOCIATED WITH EXACERBATION FOR EARLY INTERVENTION OF COMPLICATIONS ] Future Scheduled Test SKILLED NU RSE TO [...] ACCESS COMMUNITY RESOURCES AND PSYCHOSOCIAL SUPPORT SERVICES.] Goal 2024-10-26 Patient Goal - T O BE COMPLIANT WITH TAKING MEDICATION Goal Patient Goal - T O BE COMPLIANT WITH TAKING MEDICATION Goal Provider Goal - A PLAN OF CARE WILL BE ESTABLISHED THAT MEETS PATIENT'S PENITENTIARY NEEDS AND INCLUDES PATIENT GOAL FOR HOME HEALTH. Goal Provider Goal - PATIENT WILL REMAIN SAFE IN THE COMMUNITY AND WILL BE FREE OF DANGER TO SELF AND OTHERS THROUGHOUT THE CERTIFICATION PERIOD. Goal Provider Goal - PATIENT/CAREGIVER WILL VERBALIZE/DEMONSTRATE EFFECTIVE HOME SAFETY AND FALL PREVENTION STRATEGIES THROUGHOUT CERTIFICATION PERIOD. Goal Provider Goal - PATIENT WILL HAVE SUPPORT MEASURES ESTABLISHED TO PREVENT HOSPITALIZATION AND ED USE AND PATIENT/CAREGIVER WILL VERBALIZE/DEMONSTRATE METHODS TO REDUCE AVOIDABLE HOSPITALIZATION AND ED USE BY END OF EPISODE. Goal Provider Goal - ALTERED MENTAL/BEHAVIORAL STATUS WILL BE IDENTIFIED PROMPTLY AND INTERVENTION INITIATED QUICKLY TO MINIMIZE ASSOCIATED RISKS THROUGHOUT CERTIFICATION PERIOD. Goal Provider Goal - PATIENT/CAREGIVER WILL VERBALIZE UNDERSTANDING OF EDUCATION PROVIDED ON MEDICATIONS BY THE END OF THE CERTIFICATION PERIOD. Goal Provider Goal - PATIENT WILL RECEIVE INVEGA SUSTENNA 234 MG/1.5 ML INTRAMUSCULAR [id number] MG ORDERED. PATIENT/CAREGIVER WILL VERBALIZE/DEMONSTRATE KNOWLEDGE OF INJECTION THERAPY BY THE END OF THE CERTIFICATION PERIOD. Goal Provider Goal - CHANGE IN GENERAL HEALTH STATUS WILL BE IDENTIFIED AND REPORTED TO PHYSICIAN FOR PROMPT INTERVENTION TO MINIMIZE ASSOCIATED RISKS THROUGHOUT CERTIFICATION PERIOD. Goal Provider Goal - PSYCHOSOCIAL NEEDS WILL BE IDENTIFIED AND PLAN IMPLEMENTED TO MINIMIZE RISK THROUGHOUT CERTIFICATION PERIOD. Encounters Start Date/Time End Date/Time Encounter Type Admission Type Attending Clinicians Care Facility Care Department Encounter ID Discharge Date Discharge Status Discharge Condition Discharge Reason Percent Goals Met 2024-10-31 00:00:00 2024-12-29 00:00:00 Outpatient RECERTIFIC GIOVANNI ROQUE [facility] [id number]
--- NOTE | 2024-12-29 14:01 | ED_ITS ---
HPI - Psych General Chief Complaint: Psychiatric Symptoms Stated Complaint: SEC 12,CHARGING TOWARDS STAFF @ [facility] PER EMS Source: patient, EMS and old records reviewed Mode of arrival: EMS Limitations: no limitations History of Present Illness ED Provider: AZAEL HPI Narrative: 54 yo female with PMH of HTN, DM, schizoaffective disorder here with no complaints. She states she has a safe place to live and owns multiple houses in [place] and she isn't sure why they brought her here. She states she takes her medications. She denies falls, she states she has no medical issues. She feels fine otherwise and is confused why she is in the hospital. She knows she is at [facility] but states the hospital is located in [facility]. She is on S12 for not taking her medications and aggression. Onset (ago): unknown Duration: constant History of same: Yes Relieving factors: none Exacerbating factors: other Context: not taking psychiatric medications Associated psychiatric symptoms: none Associated symptoms: denies other symptoms Treatments prior to arrival: placed on mental health hold Related Data Home Medications ?Medication ?Instructions ?Recorded ?Confirmed olanzapine 20 mg disintegrating 20 mg BEDTIME 12/29/24 12/29/24 tablet Previous Rx's ?Medication ?Instructions ?Recorded cholecalciferol (vitamin D3) 10 10 mcg PO DAILY 30 day s #30 tabs 08/11/24 mcg (400 unit) tablet (Vitamin D3) multivitamin (Daily Multi-Vitamin 1 tab PO DAILY 30 da ys #30 tabs 08/11/24 tablet) albuterol sulfate 90 mcg/actuation 2 puff inhalation Q 4-6H PRN 10/25/24 aerosol inhaler (Ventolin HFA) bronchospasm #8.5 grams fluocinolone acetonide oil 0.01 % 5 drp otic (ears) BI D PRN ear 10/25/24 ear drops (DermOtic Oil) itching 7 days #20 mL ibuprofen 600 mg tablet 600 mg PO Q8H PRN pain #30 t abs 10/25/24 lithium carbonate 300 mg 600 mg (2 x 300 mg) PO BEDTI ME 30 10/25/24 tablet,extended release days #60 tabs lithium carbonate 450 mg 450 mg PO DAILY 30 days #30 tabs 10/25/24 tablet,extended release metronidazole 0.75 % topical gel 1 appl topical DAILY #1 units 10/25/24 olanzapine 10 mg disintegrating 20 mg (2 x 10 mg) serrano slingual 10/25/24 tablet BEDTIME 30 days #60 tabs paliperidone palmitate 234 mg/1.5 234 mg (1.5 mL) IM Q 30D #1.5 mL 10/25/24 mL intramuscular syringe (Invega Sustenna) white petrolatum-mineral oil 1 appl topical BID #1 uni ts 10/25/24 topical cream (Dermacerin (petrolatum-mineral oil) topical cream) Allergies Allergy/AdvReac Type Severity Reaction Status Date / Time acetaminophen (From TYLENOL) Allergy Intermediate HIVES Verified 12/29/24 14:09 meperidine (From Demerol) Allergy Unknown Verified 12/29/24 14:09 Review of Systems 2 Review of Systems: Constitutional : No Fever, No Chills ENT/Mouth : No Ear Pain, No Nasal Congestion, No sore throat Eyes: No Eye Pain, No Swelling, No Redness Cardiovascular : No Chest Pain, No SOB Respiratory : No Cough, No Sputum, No Dyspnea Gastrointestinal : No Nausea, No Vomiting, No Diarrhea, No Hematochezia, No Melena Genitourinary : No Dysuria, No Urinary Frequency, No Hematuria Musculoskeletal : No Myalgias Skin : No Skin Lesions, No rash Neuro : No Weakness, No Numbness, No Paresthesias, No Dizziness, No Headache Psych : no Anxiety, no Depression, no SI/HI All other systems reviewed and are negative [facility] Past Medical History Attestation statement: The following information was validated with the patient. Source: old records reviewed Medical History Postmenopausal bleeding Postmenopausal Schizoaffective disorder Rosacea, acne Hypertension Obesity Surgical History Delivery by section Social History Social History Household Members: None Household Members Other:: Meño Langston, Jhony Gracia Housing: Assisted Living Facility Housing Other:: Group living environment Do you presently have visiting nurse or other home services: Yes ([facility]) Unable to assess alcohol history related to: Refusing to respond Alcohol intake: current Alcohol intake frequency: does not drink Comment: patient asleep at start of shift Patient Tobacco Use Status: Current everyday Tobacco user Tobacco use type: Cigarette Cigarette Packs Per Day: 0.5 Cigarettes Per Day: 7 e-Cigarette/Vaping Use: Never Used Second Hand Smoke Exposure: Yes Use of substances other than those prescribed or required for medical reasons: Refusing to respond Substance Use Type: Marijuana Advance Directives: Yes Advance Directives on File: Yes Advance Directives Date on File: 11/06/20 service: No Current occupational status: disabled Sexual orientation: Unable to collect Cognitive needs: No Hearing needs: No Vision needs: No Physical Exam 2 Vital Signs: Vital Signs: Last Vital Signs Temp 97.9 F 12/29/24 14:08 Pulse 85 12/29/24 14:08 Resp 14 12/29/24 14:08 BP 141/53 H 12/29/24 14:08 Pulse Ox 97 12/29/24 14:08 O2 Del Method Room Air 12/29/24 14:08 BMI result Body Mass Index 32.0 Appearance: Alert. Oriented X2. No acute distress. Disheveled poor hygiene Eyes: Pupils equal, round and reactive to light. ENT: Pharynx normal. Neck: Normal inspection. Neck supple. CVS: Normal heart rate and rhythm. Pulses normal. Respiratory: No respiratory distress. Breath sounds normal. Abdomen: Soft and nontender. Skin: Skin warm and dry. Normal skin color. Normal skin turgor. Extremities: No lower extremity edema. No calf ttp Neuro: Oriented X 2. No motor deficit. No sensory deficit. CN2-12 intact Course Course Course Narrative: physician observation ended at 505pm admitted to inpatient psychiatry Medical Decision Making Medical Decision Making MDM Narrative: 54 yo female with PMH of HTN, DM, schizoaffective disorder here with c/o S12 due to agitation and not taking medications she denies all of this. She is calm and cooperative but thinks we are in [facility]. At this time will obtain labs, CARE team consult Differential Diagnosis Differential Diagnoses: The differential diagnosis associated with the presentation includes schizoaffective disorder, Admission/Observation Consideration of admission/observation: Escalation of care including admission/observation considered physician observation started at 223pm pending placement she is a bed search from the community Consult Healthcare Provider Management of the patient was discussed with: Behavioral Health Provider Lab Data [facility] Lab Attestation statement: I reviewed the patient's lab results. chronic leukocytosis 12/29/24 14:22 12/29/24 14:22 Labs: Lab Results 12/29/24 12/29/24 Range/Units 14:22 16:09 WBC 18.1 H (4.8-10.8) X10*3/uL RBC 5.06 (4.20-5.50) X10*6/uL Hgb 15.9 (12.0-16.0) g/dl Hct 46.7 (37.0-47.0) % MCV 92.3 (80.0-98.0) fL MCH 31.4 (27.0-33.0) pg MCHC 34.0 (31.0-35.0) g/dl RDW 13.2 (11.0-16.0) % Plt Count 268 (160-400) X10*3/uL MPV 9.2 L (9.4-12.3) fL Immature Gran % (Auto) 0.5 H (0.0-0.4) % Neut % (Auto) 75.3 H (45-73) % Lymph % (Auto) 17.6 L (20-40) % [place] % (Auto) 4.6 (2-11) % Eos % (Auto) 1.4 (0-4) % Baso % (Auto) 0.6 (0-2) % Lymph # (Auto) 3.2 (1.2-4.9) X10*3/uL [place] # (Auto) 0.8 (0.1-1.2) X10*3/uL Eos # (Auto) 0.3 (0.0-0.4) X10*3/uL Baso # (Auto) 0.1 (0.0-0.2) X10*3/uL Abs Immat Gran (auto) 0.09 H (0.00-0.03) X10*3/uL Absolute Neuts (auto) 13.6 H (2.0-8.3) x10*3/uL Absolute Nucleated RBC 0.000 (0.0-0.012) X10*3/uL Nucleated RBC % (auto) 0.0 (0.0-0.2) /100WBC Sodium 142 (135-145) mmol/L Potassium 3.9 (3.3-5.1) mmol/L Chloride 107 (96-108) mmol/L Carbon Dioxide 28 (22-29) mmol/L Anion Gap 11 L (12-20) BUN 14 (9-16) mg/dL Creatinine 0.78 (0.5-1.4) mg/dL Estim Creat Clear Calc 79.5 Estimated GFR > 60 Random Glucose 119 H (60-115) mg/dL Calcium 9.5 (8.4-10.2) mg/dL Magnesium 1.8 (1.6-2.6) mg/dL Total Bilirubin 0.5 (0.0-1.0) mg/dL Direct Bilirubin 0.2 (0.0-0.5) mg/dL AST 24 (5-31) U/L ALT 28 (0-31) U/L Alkaline Phosphatase 90 (39-117) U/L Total Protein 7.1 (6.5-8.0) g/dL Albumin 4.6 (3.5-5.0) g/dL Urine Color Yellow Urine Appearance Clear Urine pH 5.5 (5.0-9.0) Ur Specific [place] 1.025 (1.005-1.025) Urine Protein 100 (2+) H (Neg-Trace) mg/dL Urine Glucose (UA) Negative (Negative) mg/dL Urine Ketones Negative (Negative) mg/dL Urine Blood Negative (Negative) Urine Nitrite Negative (Negative) Ur Leukocyte Esterase Negative (Negative) Urine RBC 0-2 (0-2) /HPF Urine WBC 0-5 (0-5) /HPF Ur Squamous Epith Cells 3-5 (0-2) /HPF Urine Bacteria None Seen (None Seen) Hyaline Casts 0-2 (0-2) /LPF Urine Opiates Screen Not Detected (Not Detect) Ur Buprenorphine Scrn Not Detected (Not Detect) ng/mL Ur Oxycodone Screen Not Detected (Not Detect) ng/mL Urine Methadone Screen Not Detected (Not Detect) ng/mL Urine Fentanyl Screen Not Detected (Not Detect) Ur Barbiturates Screen Not Detected (Not Detect) Ur Phencyclidine Scrn Not Detected (Not Detect) Ur Amphetamines Screen Not Detected (Not Detect) U Benzodiazepines Scrn Not Detected (Not Detect) Vega < 0.10 L (0.60-1.20) mmol/L Urine Cocaine Screen Not Detected (Not Detect) U Marijuana (THC) Screen POSITIVE H (Not Detect) Ethyl Alcohol < 10 mg/dL COVID-19 (CAS) Negative (Negative) COVID-19 Clin Com See Note Independent Interpretation I performed an independent interpretation of an: EKG Interpretation: Rate: Rhythm: [place]: Normal P waves. Normal TONNY. Normal QRS complex. ST T wave : qTC: prior studies: The study has been interpreted contemporaneously by me. . Radiology Impression Discussion of test interpretation with radiology: I have reviewed the radiologist's reading. Independent Historian Clinical information obtained from an independent historian. History obtained from or confirmed by: EMS External Record Review External record reviewed: Inpatient record and Outpatient record Social Determinants Patient?s care significantly limited by Social Determinants of Health including: Problems related to primary support group Discharge Plan Discharge Clinical Impression: Schizoaffective disorder Qualifiers: Schizoaffective disorder type: bipolar Qualified Code(s): F25.0 - Schizoaffective disorder, bipolar type Patient Disposition: Admitted As Inpatient Interventions: [place]-Suicide Risk Severity Scale Last Done: 12/29/24 16:58 Admission Worksheet (ED) Last Done: 12/29/24 16:55 Discharge Date/Time: 12/29/24 17:02 Print Language: Occitan
[2024-12-29 14:08] VITALS: BP 141/53; PULSE 85; RESP 14; TEMP 36.6; O2SAT 97; BMI 32.0
[2024-12-29 14:27] LABS: Hematocrit 46.7 % (37.0-47.0); Hemoglobin 15.9 g/dl (12.0-16.0); Imm Gran Abs Auto 0.09 X10*3/uL (0.00-0.03); Imm Gran Pct Auto 0.5 % (0.0-0.4); Lymphocytes Absolute Auto 3.2 X10*3/uL (1.2-4.9); MANUAL DIFF FLAG NO; Mean Corpuscular HGB Conc 34.0 g/dl (31.0-35.0); Mean Corpuscular Hemoglobin 31.4 pg (27.0-33.0); Mean Corpuscular Volume 92.3 fL (80.0-98.0); NRBC Abs Auto 0.000 X10*3/uL (0.0-0.012); NRBC Pct Auto 0.0 /100WBC (0.0-0.2); Platelet Count 268 X10*3/uL (160-400); Red Blood Count 5.06 X10*6/uL (4.20-5.50); White Blood Count 18.1 X10*3/uL (4.8-10.8)
--- NOTE | 2024-12-29 14:27 | MHC.EDTECH ---
Pt refused EKG. Will attempt to obtain later. RN aware.
[2024-12-29 14:44] LABS: Lithium < 0.10 mmol/L (0.60-1.20)
[2024-12-29 14:49] LABS: Alanine Aminotransferase 28 U/L (0-31); Albumin Level 4.6 g/dL (3.5-5.0); Alkaline Phosphatase 90 U/L (39-117); Anion Gap 11 (12-20); Aspartate Amino Transferase 24 U/L (5-31); Blood Urea Nitrogen 14 mg/dL (9-16); Calcium 9.5 mg/dL (8.4-10.2); Carbon Dioxide 28 mmol/L (22-29); Chloride 107 mmol/L (96-108); Creatinine Clr Calc Pharmacy 79.5; Estimated Glomerular Filt Rate > 60; Magnesium 1.8 mg/dL (1.6-2.6); Potassium 3.9 mmol/L (3.3-5.1); Sodium 142 mmol/L (135-145); Total Protein 7.1 g/dL (6.5-8.0)
[2024-12-29 14:52] LABS: COVID-19 Test Negative (Negative); IDNOW Serial# 58CA691E
--- NOTE | 2024-12-29 15:46 | MHC.EDTECH ---
This pct attempted an EKG but the patient refused, patient states the EKG doesnt work, dori(RN) came over to talk to her but to no avail she still refused,RN Aware
--- NOTE | 2024-12-29 16:17 | PC.NURSE ---
refusing ekg and labs
[2024-12-29 16:20] LABS: Appearance Urine Clear; Glucose Urine UA Negative (Negative); PH 5.5 (5.0-9.0); Specific Gravity - Urine 1.025 (1.005-1.025); UMIC TRIGGER UACC YES
[2024-12-29 16:28] LABS: Cannabinoid Screen Urine POSITIVE (Not Detect)
--- NOTE | 2024-12-29 16:29 | PC.NURSE ---
staff at [facility] sent patient med rec, completed by this RN, unknown when patent last took her medications, staff reported patient was cheeking her meds
--- NOTE | 2024-12-29 16:53 | MHC.EDTECH ---
Pt refused vitals at this time, RN aware
--- NOTE | 2024-12-29 16:54 | MHC.EDTECH ---
Pt brought over to 2 from ED17 with no issues
[2024-12-29 17:20] VITALS: RESP 18; BMI 35.1
--- NOTE | 2024-12-29 18:19 | PC.ADMIT ---
Sivan arrived from the [facility]? on a 12B for decompensation. Per the crisis report she was refusing to acknowledge the staff?s roles at her care home and charged at a staff member when her upcoming Invega Sustenna injection was brought up. The staff suspects that she is cheeking her medication. Her lithium level was <0.1 though she is prescribed 600mg/day. She is not reported to be suicidal. Upon arrival to the unit, Sivan appeared happy to see familiar staff, but was unwilling to participate in the admission process in any way. When approached by MABLE Gomez she stated ?you?re not a nurse? and repeatedly walked away. She would not sign any paperwork or answer questions, so admission was completed based on existing evaluations. She has been calmly pacing the unit listening to music. Her medical history includes chronic leukocytosis, and her WBC is currently elevated at 18.1. She does not have evidence of a current infection. Tox screen was positive for THC only. Sivan is on 15 minute checks.
[2024-12-29] MEDS: OLANZapine ODT 10 MG TAB.RAPDIS 20 MG TRANSLINGU (21:20)
[2024-12-30 07:00] VITALS: BMI 35.0
[2024-12-30] MEDS: Cholecalciferol (Vitamin D3) 10 MCG TABLET PO (08:25)
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
[2024-12-30] MEDS: OLANZapine ODT 10 MG TAB.RAPDIS 20 MG TRANSLINGU (21:24)
[2024-12-31 08:00] VITALS: RESP 16
[2024-12-31] MEDS: Cholecalciferol (Vitamin D3) 10 MCG TABLET PO (08:43)
--- NOTE | 2024-12-31 10:28 | HO.PSYCHPN ---
Subjective Subjective Date of Service: 12/31/24 Reason For Visit: Decompensated Psychosis Subjective Notes: Conditional Voluntary (HCP has signed pt in.) Healthcare Proxy: Yes Guardianship: No Medical Problems Affecting Mental Status: No Interim History: Sivan is visable on the unit, walking, listening to music, visiting with friends. She has symptoms of active psychosis, refuses to discuss a treatment plan, I will tell you what your treatment plan is. It appears she is responding to internal stimuli. She is confrontive when approached about clinical matters, however is positive when talking about daily issues-discussed nail indonesian, hair products and fabric with tw with interest and no agitation. She is accepting medications. Call to [facility] to obtain the most recent dosing of her injectable medication, message was left. Medication Compliance: Yes Side effects from medications: No Attending Groups: No Review of Systems Acute medical concerns: No High WBC Review of Systems Review of Systems No, no, no Mental Status Exam Mental Status Exam Patient Appearance: Disheveled and Unkempt Patient Orientation: Person and Place Level of Consciousness: Alert Patient Behavior: Guarded, Suspicious, Resistive to Care, Avoidant, Distractible, Good Eye Contact and Impulsive Mood Description: Hostile and Labile Affect Description: Hostile and Labile Patient Cognition Impaired: No Ability to Follow Directions: Good Speech Pattern: Spontaneous Speech Memory Description: Remote Impaired Hallucinations: Auditory (??) Delusions: Paranoid Ideation and Present Thought Process: Illogical, Distracted and Evasive Thought Content: positive for Circumstantial, positive for Preoccupation, positive for Thought Blocking, positive for Tangential and positive for Suicidal Ideation (denies) Depressive Symptoms: Increased Irritability and Difficulty Concentrating Judgement: Poor Diagnostics Vital Signs (24Hr): Vital Signs - 24 hr 12/31/24 08:00 Respiratory Rate 16 BMI result Body Mass Index 35.0 Labs 12/29/24 14:22 12/29/24 14:22 Labs: Laboratory Results - last 48 hr 12/29/24 12/29/24 14:22 16:09 WBC 18.1 H RBC 5.06 Hgb 15.9 Hct 46.7 MCV 92.3 MCH 31.4 MCHC 34.0 RDW 13.2 Plt Count 268 MPV 9.2 L Immature Gran % (Auto) 0.5 H Neut % (Auto) 75.3 H Lymph % (Auto) 17.6 L [place] % (Auto) 4.6 Eos % (Auto) 1.4 Baso % (Auto) 0.6 Lymph # (Auto) 3.2 [place] # (Auto) 0.8 Eos # (Auto) 0.3 Baso # (Auto) 0.1 Abs Immat Gran (auto) 0.09 H Absolute Neuts (auto) 13.6 H Absolute Nucleated RBC 0.000 Nucleated RBC % (auto) 0.0 Sodium 142 Potassium 3.9 Chloride 107 Carbon Dioxide 28 Anion Gap 11 L BUN 14 Creatinine 0.78 Estim Creat Clear Calc 79.5 Estimated GFR > 60 Random Glucose 119 H Calcium 9.5 Magnesium 1.8 Total Bilirubin 0.5 Direct Bilirubin 0.2 AST 24 ALT 28 Alkaline Phosphatase 90 Total Protein 7.1 Albumin 4.6 Urine Color Yellow Urine Appearance Clear Urine pH 5.5 Ur Specific [place] 1.025 Urine Protein 100 (2+) H Urine Glucose (UA) Negative Urine Ketones Negative Urine Blood Negative Urine Nitrite Negative Ur Leukocyte Esterase Negative Urine RBC 0-2 Urine WBC 0-5 Ur Squamous Epith Cells 3-5 Urine Bacteria None Seen Hyaline Casts 0-2 Urine Opiates Screen Not Detected Ur Buprenorphine Scrn Not Detected Ur Oxycodone Screen Not Detected Urine Methadone Screen Not Detected Urine Fentanyl Screen Not Detected Ur Barbiturates Screen Not Detected Ur Phencyclidine Scrn Not Detected Ur Amphetamines Screen Not Detected U Benzodiazepines Scrn Not Detected [place] < 0.10 L Urine Cocaine Screen Not Detected U Marijuana (THC) Screen POSITIVE H Ethyl Alcohol < 10 COVID-19 (CAS) Negative COVID-19 Clin Com See Note Medications Medications Current Medications Al Hydroxide/Mg Hydroxide (Magnesium Hydrox/Alum Hydrox 30 Ml Oral.Susp) 30 ml PO Q6H PRN PRN Reason: Heartburn/Nausea Albuterol Sulfate (Albuterol Sulfate 90 Mcg 8 Gm Inhaler) 2 puff INHALE Q4H PRN PRN Reason: bronchospasm Hydroxyzine HCl (Hydroxyzine Hcl 25 Mg Tablet) 25 mg PO Q6H PRN PRN Reason: mild anxiety [place] Carbonate ([place] Carbonate Er 300 Mg Tablet.Er) 600 mg PO BEDTIME [facility] Last Admin: 12/30/24 21:24 Dose: 600 mg [place] Carbonate ([place] Carbonate Er 450 Mg Tablet.Er) 450 mg PO DAILY [facility] Last Admin: 12/31/24 08:43 Dose: 450 mg Magnesium Hydroxide (Milk Of Magnesia 30 Ml Oral.Susp) 30 ml PO DAILY PRN PRN Reason: Constipation Metronidazole (Metronidazole 0.75 % Gel 45 Gm Tube) 1 appl TOPICAL DAILY [facility] Last Admin: 12/30/24 09:00 Dose: Not Given Multivitamins/Vitamin C (Multivitamin Tablet) 1 tab PO DAILY [facility] Last Admin: 12/31/24 08:43 Dose: 1 tab Nicotine (Nicotine 21 Mg Patch.Td24) 21 mg TRANSDERMA DAILY PRN PRN Reason: smoking cessation Nicotine Polacrilex (Nicotine Polacrilex 2 Mg Gum) 4 mg BUCCAL Q2H PRN PRN Reason: Nicotine Cravings Olanzapine (Olanzapine 5 Mg Tablet) 5 mg PO TID PRN PRN Reason: agitation Olanzapine (Olanzapine Odt 10 Mg Tab.Rapdis) 20 mg TRANSLINGU BEDTIME [facility] Last Admin: 12/30/24 21:24 Dose: 20 mg Trazodone HCl (Trazodone Hcl 50 Mg Tablet) 50 mg PO BEDTIME MRX1 PRN PRN Reason: Insomnia Vitamin D (Cholecalciferol (Vitamin D3) 10 Mcg Tablet) 10 mcg PO DAILY [facility] Last Admin: 12/31/24 08:43 Dose: 10 mcg Allergies Allergies Allergy/AdvReac Type Severity Reaction Status Date / Time acetaminophen (From TYLENOL) Allergy Intermediate HIVES Verified 12/29/24 14:09 meperidine (From Demerol) Allergy Unknown Verified 12/29/24 14:09 Assessment & Plan Assessment & Plan (1) Schizoaffective disorder: Qualifiers: Schizoaffective disorder type: bipolar Qualified Code(s): F25.0 - Schizoaffective disorder, bipolar type Status: Acute Code(s): F25.9 - Schizoaffective disorder, unspecified (2) Cannabis use disorder: Status: Acute Code(s): F12.90 - Cannabis use, unspecified, uncomplicated Plan Admit, Section XIIB, 15 minute checks Re-establish regime Clarify HCP status Encourage milieu Diagnostics as needed Collateral contact Discharge planning 12/31: EKG, lipid panel, a1c, ammonia, b12,folate Reason for continued inpatient stay Substantial Risk for: rapid decompensation Time Spent With Patient Time: Total time managing care of this patient today ____ minutes.
[2024-12-31] MEDS: OLANZapine ODT 10 MG TAB.RAPDIS 20 MG TRANSLINGU (21:28)
[2025-01-01 08:00] VITALS: RESP 18
[2025-01-01] MEDS: Cholecalciferol (Vitamin D3) 10 MCG TABLET PO (10:40)
--- NOTE | 2025-01-01 17:34 | P.PNPSI_ITS ---
Subjective Subjective Date of Service: 01/01/25 Reason For Visit: Decompensated Psychosis Interim History: Sivan is visible on the unit, walking, listening to music. When approached by job specification writer who introduced self as the psychiatrist she responded no you're not! and walked away. Is adherent to medications. Observed interacting with staff appropriately. No reports of SI. Review of Systems Review of Systems No, no, no Mental Status Exam Mental Status Exam Patient Appearance: Disheveled and Unkempt Patient Orientation: Person and Place Level of Consciousness: Alert Patient Behavior: Guarded, Suspicious, Resistive to Care, Avoidant, Distractible, Good Eye Contact and Impulsive Mood Description: Hostile and Labile Affect Description: Hostile and Labile Patient Cognition Impaired: No Ability to Follow Directions: Good Speech Pattern: Spontaneous Speech Memory Description: Remote Impaired Diagnostics Vital Signs (24Hr): Vital Signs - 24 hr 01/01/25 08:00 Respiratory Rate 18 BMI result Body Mass Index 35.0 Labs 12/29/24 14:22 12/29/24 14:22 Medications Medications Current Medications Al Hydroxide/Mg Hydroxide (Magnesium Hydrox/Alum Hydrox 30 Ml Oral.Susp) 30 ml PO Q6H PRN PRN Reason: Heartburn/Nausea Albuterol Sulfate (Albuterol Sulfate 90 Mcg 8 Gm Inhaler) 2 puff INHALE Q4H PRN PRN Reason: bronchospasm Hydroxyzine HCl (Hydroxyzine Hcl 25 Mg Tablet) 25 mg PO Q6H PRN PRN Reason: mild anxiety [place] Carbonate ([place] Carbonate Er 300 Mg Tablet.Er) 600 mg PO BEDTIME [facility] Last Admin: 12/31/24 21:28 Dose: 600 mg [place] Carbonate ([place] Carbonate Er 450 Mg Tablet.Er) 450 mg PO DAILY [facility] Last Admin: 01/01/25 10:40 Dose: 450 mg Magnesium Hydroxide (Milk Of Magnesia 30 Ml Oral.Susp) 30 ml PO DAILY PRN PRN Reason: Constipation Metronidazole (Metronidazole 0.75 % Gel 45 Gm Tube) 1 appl TOPICAL DAILY [facility] Last Admin: 01/01/25 11:20 Dose: Not Given Multivitamins/Vitamin C (Multivitamin Tablet) 1 tab PO DAILY [facility] Last Admin: 01/01/25 10:40 Dose: 1 tab Nicotine (Nicotine 21 Mg Patch.Td24) 21 mg TRANSDERMA DAILY PRN PRN Reason: smoking cessation Nicotine Polacrilex (Nicotine Polacrilex 2 Mg Gum) 4 mg BUCCAL Q2H PRN PRN Reason: Nicotine Cravings Olanzapine (Olanzapine 5 Mg Tablet) 5 mg PO TID PRN PRN Reason: agitation Olanzapine (Olanzapine Odt 10 Mg Tab.Rapdis) 20 mg TRANSLINGU BEDTIME [facility] Last Admin: 12/31/24 21:28 Dose: 20 mg Trazodone HCl (Trazodone Hcl 50 Mg Tablet) 50 mg PO BEDTIME MRX1 PRN PRN Reason: Insomnia Last Admin: 12/31/24 21:28 Dose: 50 mg Vitamin D (Cholecalciferol (Vitamin D3) 10 Mcg Tablet) 10 mcg PO DAILY [facility] Last Admin: 01/01/25 10:40 Dose: 10 mcg Allergies Allergies Allergy/AdvReac Type Severity Reaction Status Date / Time acetaminophen (From TYLENOL) Allergy Intermediate HIVES Verified 12/29/24 14:09 meperidine (From Demerol) Allergy Unknown Verified 12/29/24 14:09 Assessment & Plan Assessment & Plan (1) Schizoaffective disorder: Qualifiers: Schizoaffective disorder type: bipolar Qualified Code(s): F25.0 - Schizoaffective disorder, bipolar type Status: Acute Code(s): F25.9 - Schizoaffective disorder, unspecified (2) Cannabis use disorder: Status: Acute Code(s): F12.90 - Cannabis use, unspecified, uncomplicated Plan Admit, Section XIIB, 15 minute checks Re-establish regime Clarify HCP status Encourage milieu Diagnostics as needed Collateral contact Discharge planning 12/31: EKG, lipid panel, a1c, ammonia, b12,folate 01/01: continue current management and treatment plan. Reason for continued inpatient stay Substantial Risk for: inability to function and rapid decompensation Time Spent With Patient Time: Total time managing care of this patient today ____ minutes.
[2025-01-01] MEDS: OLANZapine ODT 10 MG TAB.RAPDIS 20 MG TRANSLINGU (20:25)
[2025-01-02 08:00] VITALS: RESP 18
[2025-01-02] MEDS: Cholecalciferol (Vitamin D3) 10 MCG TABLET PO (09:11)
--- NOTE | 2025-01-02 09:22 | P.PNPSI_ITS ---
Subjective Subjective Date of Service: 01/02/25 Reason For Visit: Decompensated Psychosis Interim History: Sivan is visible on the unit, walking, listening to music. When asked how she is feeling compared to prior to admission she says I was doing OK at home! and denies any complaints. She abruptly puts her head phones on and walks away. Patient is adherent to medications. Observed interacting with staff appropriately. No reports of SI. Review of Systems Review of Systems No, no, no Mental Status Exam Mental Status Exam Patient Appearance: Disheveled and Unkempt Patient Orientation: Person and Place Level of Consciousness: Alert Patient Behavior: Guarded, Suspicious, Resistive to Care, Avoidant, Distractible, Good Eye Contact and Impulsive Mood Description: Hostile and Labile Affect Description: Hostile and Labile Patient Cognition Impaired: No Ability to Follow Directions: Good Speech Pattern: Spontaneous Speech Memory Description: Remote Impaired Diagnostics Vital Signs (24Hr): Vital Signs - 24 hr 01/02/25 08:00 Respiratory Rate 18 BMI result Body Mass Index 35.0 Labs 12/29/24 14:22 12/29/24 14:22 Medications Medications Current Medications Al Hydroxide/Mg Hydroxide (Magnesium Hydrox/Alum Hydrox 30 Ml Oral.Susp) 30 ml PO Q6H PRN PRN Reason: Heartburn/Nausea Albuterol Sulfate (Albuterol Sulfate 90 Mcg 8 Gm Inhaler) 2 puff INHALE Q4H PRN PRN Reason: bronchospasm Hydroxyzine HCl (Hydroxyzine Hcl 25 Mg Tablet) 25 mg PO Q6H PRN PRN Reason: mild anxiety [place] Carbonate ([place] Carbonate Er 300 Mg Tablet.Er) 600 mg PO BEDTIME [facility] Last Admin: 01/01/25 20:24 Dose: 600 mg [place] Carbonate ([place] Carbonate Er 450 Mg Tablet.Er) 450 mg PO DAILY [facility] Last Admin: 01/02/25 09:11 Dose: 450 mg Magnesium Hydroxide (Milk Of Magnesia 30 Ml Oral.Susp) 30 ml PO DAILY PRN PRN Reason: Constipation Metronidazole (Metronidazole 0.75 % Gel 45 Gm Tube) 1 appl TOPICAL DAILY [facility] Last Admin: 01/02/25 09:11 Dose: Not Given Multivitamins/Vitamin C (Multivitamin Tablet) 1 tab PO DAILY [facility] Last Admin: 01/02/25 09:11 Dose: 1 tab Nicotine (Nicotine 21 Mg Patch.Td24) 21 mg TRANSDERMA DAILY PRN PRN Reason: smoking cessation Nicotine Polacrilex (Nicotine Polacrilex 2 Mg Gum) 4 mg [place] Q2H PRN PRN Reason: Nicotine Cravings Olanzapine (Olanzapine 5 Mg Tablet) 5 mg PO TID PRN PRN Reason: agitation Olanzapine (Olanzapine Odt 10 Mg Tab.Rapdis) 20 mg TRANSLINGU BEDTIME [facility] Last Admin: 01/01/25 20:25 Dose: 20 mg Trazodone HCl (Trazodone Hcl 50 Mg Tablet) 50 mg PO BEDTIME MRX1 PRN PRN Reason: Insomnia Last Admin: 01/01/25 20:24 Dose: 50 mg Vitamin D (Cholecalciferol (Vitamin D3) 10 Mcg Tablet) 10 mcg PO DAILY [facility] Last Admin: 01/02/25 09:11 Dose: 10 mcg Allergies Allergies Allergy/AdvReac Type Severity Reaction Status Date / Time acetaminophen (From TYLENOL) Allergy Intermediate HIVES Verified 12/29/24 14:09 meperidine (From Demerol) Allergy Unknown Verified 12/29/24 14:09 Assessment & Plan Assessment & Plan (1) Schizoaffective disorder: Qualifiers: Schizoaffective disorder type: bipolar Qualified Code(s): F25.0 - Schizoaffective disorder, bipolar type Status: Acute Code(s): F25.9 - Schizoaffective disorder, unspecified (2) Cannabis use disorder: Status: Acute Code(s): F12.90 - Cannabis use, unspecified, uncomplicated Plan Admit, Section XIIB, 15 minute checks Re-establish regime Clarify HCP status Encourage milieu Diagnostics as needed Collateral contact Discharge planning 12/31: EKG, lipid panel, a1c, ammonia, b12,folate 01/01: continue current management and treatment plan. 01/02: continue current management and treatment plan. Reason for continued inpatient stay Substantial Risk for: inability to function and rapid decompensation Time Spent With Patient Time: Total time managing care of this patient today ____ minutes.
[2025-01-02 19:43] VITALS: RESP 15
[2025-01-02] MEDS: OLANZapine ODT 10 MG TAB.RAPDIS 20 MG TRANSLINGU (20:34)
[2025-01-03 08:00] VITALS: RESP 18
[2025-01-03] MEDS: Cholecalciferol (Vitamin D3) 10 MCG TABLET PO (08:31)
--- NOTE | 2025-01-03 10:09 | HO.PSYCHPN ---
Subjective Subjective Date of Service: 01/03/25 Reason For Visit: Decompensated Psychosis Subjective Notes: Conditional Voluntary Healthcare Proxy: Yes Guardianship: No Medical Problems Affecting Mental Status: No Interim History: Sivan is visable on the unit, walking, listening to music, singing at times. She is very positive in her approach to team, offers a smile, a hug, a positive word, then she proceeds to walk. She is observant in the milieu and did offer a few opinions which were on point regarding milieu activity today. Message was left for [facility] regarding the date of INFANTE being due. They did return our call and report the injection is due on 01/04/25. We will order this for tomorrow. Although more positive and social Sivan is not wanting to discuss her treatment plan, saying that she will not do this, not on a nice day like this and continues to walk. Some self dialoguing noted in observations today. No agitation or outbursts were observed. Medication Compliance: Yes Side effects from medications: No Attending Groups: No Review of Systems Acute medical concerns: No Review of Systems Review of Systems Oh no, not talking about this today, I feel good. Mental Status Exam Mental Status Exam Patient Appearance: Disheveled Patient Orientation: Person, Place and Situation Level of Consciousness: Alert Patient Behavior: Guarded and Good Eye Contact Mood Description: Withdrawn and Cheerful Affect Description: Withdrawn and Flat Patient Cognition Impaired: No Ability to Follow Directions: Fair Speech Pattern: Spontaneous Speech Memory Description: Remote Impaired Hallucinations: Auditory Delusions: Present Thought Process: Distracted Thought Content: positive for [place], positive for Circumstantial, positive for Tangential and positive for Suicidal Ideation ( no ) Judgement: Poor Diagnostics Vital Signs (24Hr): Vital Signs - 24 hr 01/02/25 19:43 01/03/25 08:00 Respiratory Rate 15 18 BMI result Body Mass Index 35.0 Labs 12/29/24 14:22 12/29/24 14:22 Medications Medications Current Medications Al Hydroxide/Mg Hydroxide (Magnesium Hydrox/Alum Hydrox 30 Ml Oral.Susp) 30 ml PO Q6H PRN PRN Reason: Heartburn/Nausea Albuterol Sulfate (Albuterol Sulfate 90 Mcg 8 Gm Inhaler) 2 puff INHALE Q4H PRN PRN Reason: bronchospasm Hydroxyzine HCl (Hydroxyzine Hcl 25 Mg Tablet) 25 mg PO Q6H PRN PRN Reason: mild anxiety [place] Carbonate ([place] Carbonate Er 300 Mg Tablet.Er) 600 mg PO BEDTIME [facility] Last Admin: 01/02/25 20:34 Dose: 600 mg [place] Carbonate ([place] Carbonate Er 450 Mg Tablet.Er) 450 mg PO DAILY [facility] Last Admin: 01/03/25 08:30 Dose: 450 mg Magnesium Hydroxide (Milk Of Magnesia 30 Ml Oral.Susp) 30 ml PO DAILY PRN PRN Reason: Constipation Metronidazole (Metronidazole 0.75 % Gel 45 Gm Tube) 1 appl TOPICAL DAILY [facility] Last Admin: 01/03/25 08:36 Dose: Not Given Multivitamins/Vitamin C (Multivitamin Tablet) 1 tab PO DAILY [facility] Last Admin: 01/03/25 08:30 Dose: 1 tab Nicotine (Nicotine 21 Mg Patch.Td24) 21 mg TRANSDERMA DAILY PRN PRN Reason: smoking cessation Nicotine Polacrilex (Nicotine Polacrilex 2 Mg Gum) 4 mg BUCCAL Q2H PRN PRN Reason: Nicotine Cravings Olanzapine (Olanzapine 5 Mg Tablet) 5 mg PO TID PRN PRN Reason: agitation Olanzapine (Olanzapine Odt 10 Mg Tab.Rapdis) 20 mg TRANSLINGU BEDTIME [facility] Last Admin: 01/02/25 20:34 Dose: 20 mg Trazodone HCl (Trazodone Hcl 50 Mg Tablet) 50 mg PO BEDTIME MRX1 PRN PRN Reason: Insomnia Last Admin: 01/01/25 20:24 Dose: 50 mg Vitamin D (Cholecalciferol (Vitamin D3) 10 Mcg Tablet) 10 mcg PO DAILY [facility] Last Admin: 01/03/25 08:31 Dose: 10 mcg Allergies Allergies Allergy/AdvReac Type Severity Reaction Status Date / Time acetaminophen (From TYLENOL) Allergy Intermediate HIVES Verified 12/29/24 14:09 meperidine (From Demerol) Allergy Unknown Verified 12/29/24 14:09 Assessment & Plan Assessment & Plan (1) Schizoaffective disorder: Qualifiers: Schizoaffective disorder type: bipolar Qualified Code(s): F25.0 - Schizoaffective disorder, bipolar type Status: Acute Code(s): F25.9 - Schizoaffective disorder, unspecified (2) Cannabis use disorder: Status: Acute Code(s): F12.90 - Cannabis use, unspecified, uncomplicated Plan Admit, Section XIIB, 15 minute checks Re-establish regime Clarify HCP status- HCP has signed pt into the unit. Encourage milieu Diagnostics as needed Collateral contact Discharge planning 12/31: EKG, lipid panel, a1c, ammonia, b12,folate 01/01: continue current management and treatment plan. 01/02: continue current management and treatment plan. 01/03: Invega INFANTE ordered as it is due on 01/04. Reason for continued inpatient stay Substantial Risk for: rapid decompensation Time Spent With Patient Time: Total time managing care of this patient today ____ minutes.
[2025-01-03] MEDS: OLANZapine ODT 10 MG TAB.RAPDIS 20 MG TRANSLINGU (20:56)
[2025-01-04] MEDS: Cholecalciferol (Vitamin D3) 10 MCG TABLET PO (07:57)
[2025-01-04 08:00] VITALS: RESP 16
[2025-01-04 08:23] LABS: Ammonia 25 umol/L (13-55)
[2025-01-04 08:29] LABS: Hemoglobin A1C 211.2370 umol/L; Total Hemoglobin (HGBA1C) 4010.6517 umol/L
[2025-01-04 08:37] LABS: Cholesterol 189 mg/dL (<200); HDL Cholesterol 44 mg/dL (>40); Triglycerides 189 mg/dL (<150)
[2025-01-04 09:10] LABS: Thyroid Stimulating Hormone 3.21 uIU/mL (0.32-4.0)
[2025-01-04 09:22] LABS: Folate 10.0 ng/mL (> or = 4.0); Vitamin B12 664 pg/mL (200-900)
--- NOTE | 2025-01-04 11:12 | HO.PSYCHPN ---
Subjective Subjective Date of Service: 01/04/25 Reason For Visit: Decompensated Psychosis Subjective Notes: Conditional Voluntary Healthcare Proxy: Yes Guardianship: No Medical Problems Affecting Mental Status: No Interim History: Sivan accepted her INFANTE Pat Hernandez from the team this a.m. without incident or resistance. The remainder of the day she is visable in the milieu, pleasant when approached, hugging different team members and reporting she is feeling well. She is coping by using music and walking. She denies pain or any adverse effects from the medication this afternoon, stating no, I take this all of the time. Medication Compliance: Yes Side effects from medications: No Attending Groups: Yes Review of Systems Acute medical concerns: No Review of Systems Review of Systems no Mental Status Exam Mental Status Exam Patient Appearance: Disheveled Patient Orientation: Person, Place and Situation Level of Consciousness: Alert Patient Behavior: Guarded and Good Eye Contact Mood Description: Withdrawn and Cheerful Affect Description: Withdrawn and Flat Patient Cognition Impaired: No Ability to Follow Directions: Fair Speech Pattern: Spontaneous Speech Memory Description: Remote Impaired Hallucinations: Auditory Delusions: Present Thought Process: Distracted Thought Content: positive for [place], positive for Circumstantial, positive for Tangential and positive for Suicidal Ideation ( no ) Judgement: Poor Diagnostics Vital Signs (24Hr): Vital Signs - 24 hr 01/04/25 08:00 Respiratory Rate 16 BMI result Body Mass Index 35.0 Labs 12/29/24 14:22 12/29/24 14:22 Labs: Laboratory Results - last 48 hr 01/04/25 01/04/25 07:59 08:01 Estimat Average Glucose 154 Hemoglobin A1c % 7.0 H Ammonia 25 Triglycerides 189 H Cholesterol 189 LDL Cholesterol, Calc 108 H HDL Cholesterol 44 Vitamin B12 664 Folate 10.0 TSH 3.21 Medications Medications Current Medications Al Hydroxide/Mg Hydroxide (Magnesium Hydrox/Alum Hydrox 30 Ml Oral.Susp) 30 ml PO Q6H PRN PRN Reason: Heartburn/Nausea Albuterol Sulfate (Albuterol Sulfate 90 Mcg 8 Gm Inhaler) 2 puff INHALE Q4H PRN PRN Reason: bronchospasm Hydroxyzine HCl (Hydroxyzine Hcl 25 Mg Tablet) 25 mg PO Q6H PRN PRN Reason: mild anxiety [place] Carbonate ([place] Carbonate Er 300 Mg Tablet.Er) 600 mg PO BEDTIME [facility] Last Admin: 01/03/25 20:56 Dose: 600 mg [place] Carbonate ([place] Carbonate Er 450 Mg Tablet.Er) 450 mg PO DAILY [facility] Last Admin: 01/04/25 07:57 Dose: 450 mg Magnesium Hydroxide (Milk Of Magnesia 30 Ml Oral.Susp) 30 ml PO DAILY PRN PRN Reason: Constipation Multivitamins/Vitamin C (Multivitamin Tablet) 1 tab PO DAILY [facility] Last Admin: 01/04/25 07:57 Dose: 1 tab Nicotine (Nicotine 21 Mg Patch.Td24) 21 mg TRANSDERMA DAILY PRN PRN Reason: smoking cessation Nicotine Polacrilex (Nicotine Polacrilex 2 Mg Gum) 4 mg BUCCAL Q2H PRN PRN Reason: Nicotine Cravings Olanzapine (Olanzapine 5 Mg Tablet) 5 mg PO TID PRN PRN Reason: agitation Olanzapine (Olanzapine Odt 10 Mg Tab.Rapdis) 20 mg TRANSLINGU BEDTIME [facility] Last Admin: 01/03/25 20:56 Dose: 20 mg Paliperidone Palmitate (Paliperidone Palmitate 234 Mg/1.5 Ml Syringe) 234 mg IM Q30D [facility] Last Admin: 01/04/25 08:25 Dose: 234 mg Trazodone HCl (Trazodone Hcl 50 Mg Tablet) 50 mg PO BEDTIME MRX1 PRN PRN Reason: Insomnia Last Admin: 01/01/25 20:24 Dose: 50 mg Vitamin D (Cholecalciferol (Vitamin D3) 10 Mcg Tablet) 10 mcg PO DAILY [facility] Last Admin: 01/04/25 07:57 Dose: 10 mcg Allergies Allergies Allergy/AdvReac Type Severity Reaction Status Date / Time acetaminophen (From TYLENOL) Allergy Intermediate HIVES Verified 12/29/24 14:09 meperidine (From Demerol) Allergy Unknown Verified 12/29/24 14:09 Assessment & Plan Assessment & Plan (1) Schizoaffective disorder: Qualifiers: Schizoaffective disorder type: bipolar Qualified Code(s): F25.0 - Schizoaffective disorder, bipolar type Status: Acute Code(s): F25.9 - Schizoaffective disorder, unspecified (2) Cannabis use disorder: Status: Acute Code(s): F12.90 - Cannabis use, unspecified, uncomplicated Plan Admit, Section XIIB, 15 minute checks Re-establish regime Clarify HCP status- HCP has signed pt into the unit. Encourage milieu Diagnostics as needed Collateral contact Discharge planning 12/31: EKG, lipid panel, a1c, ammonia, b12,folate 01/01: continue current management and treatment plan. 01/02: continue current management and treatment plan. 01/03: Invega INFANTE ordered as it is due on 01/04. 01/04: Continue tx Reason for continued inpatient stay Substantial Risk for: rapid decompensation Time Spent With Patient Time: Total time managing care of this patient today ____ minutes.
[2025-01-04] MEDS: OLANZapine ODT 10 MG TAB.RAPDIS 20 MG TRANSLINGU (20:54)
[2025-01-05 08:00] VITALS: RESP 16
--- NOTE | 2025-01-05 09:09 | HO.PSYCHPN ---
Subjective Subjective Date of Service: 01/05/25 Reason For Visit: Decompensated Psychosis Subjective Notes: Conditional Voluntary Healthcare Proxy: No Guardianship: No Interim History: Patient found lying in her bed. She states I want you to leave my room right now. Patient observed ambulating the in the milleu a few minutes later. Mental Status Exam Mental Status Exam Narrative: Appearance: Casually dressed, adequate hygiene Behavior: Irritable and uncooperative. Minimal eye contact, and there are no signs of psychomotor agitation or retardation Speech: Loud Thought process: No accessed Thought content: No assessed Mood: Irritable Affect: Flat SI: Not assessed HI: Not assessed VH/AH: Not assessed Delusions: Not assessed Insight/judgment: Not assessed Memory/cog: Alert and oriented. grossly intact to conversational testing Diagnostics Vital Signs (24Hr): Vital Signs - 24 hr 01/05/25 08:00 Respiratory Rate 16 BMI result Body Mass Index 35.0 Labs 12/29/24 14:22 12/29/24 14:22 Labs: Laboratory Results - last 48 hr 01/04/25 01/04/25 07:59 08:01 Estimat Average Glucose 154 Hemoglobin A1c % 7.0 H Ammonia 25 Triglycerides 189 H Cholesterol 189 LDL Cholesterol, Calc 108 H HDL Cholesterol 44 Vitamin B12 664 Folate 10.0 TSH 3.21 Medications Medications Current Medications Al Hydroxide/Mg Hydroxide (Magnesium Hydrox/Alum Hydrox 30 Ml Oral.Susp) 30 ml PO Q6H PRN PRN Reason: Heartburn/Nausea Albuterol Sulfate (Albuterol Sulfate 90 Mcg 8 Gm Inhaler) 2 puff INHALE Q4H PRN PRN Reason: bronchospasm Hydroxyzine HCl (Hydroxyzine Hcl 25 Mg Tablet) 25 mg PO Q6H PRN PRN Reason: mild anxiety [place] Carbonate ([place] Carbonate Er 300 Mg Tablet.Er) 600 mg PO BEDTIME [facility] Last Admin: 01/04/25 20:55 Dose: 600 mg [place] Carbonate ([place] Carbonate Er 450 Mg Tablet.Er) 450 mg PO DAILY [facility] Last Admin: 01/04/25 07:57 Dose: 450 mg Magnesium Hydroxide (Milk Of Magnesia 30 Ml Oral.Susp) 30 ml PO DAILY PRN PRN Reason: Constipation Multivitamins/Vitamin C (Multivitamin Tablet) 1 tab PO DAILY [facility] Last Admin: 01/04/25 07:57 Dose: 1 tab Nicotine (Nicotine 21 Mg Patch.Td24) 21 mg TRANSDERMA DAILY PRN PRN Reason: smoking cessation Nicotine Polacrilex (Nicotine Polacrilex 2 Mg Gum) 4 mg BUCCAL Q2H PRN PRN Reason: Nicotine Cravings Olanzapine (Olanzapine 5 Mg Tablet) 5 mg PO TID PRN PRN Reason: agitation Olanzapine (Olanzapine Odt 10 Mg Tab.Rapdis) 20 mg TRANSLINGU BEDTIME [facility] Last Admin: 01/04/25 20:54 Dose: 20 mg Paliperidone Palmitate (Paliperidone Palmitate 234 Mg/1.5 Ml Syringe) 234 mg IM Q30D [facility] Last Admin: 01/04/25 08:25 Dose: 234 mg Trazodone HCl (Trazodone Hcl 50 Mg Tablet) 50 mg PO BEDTIME MRX1 PRN PRN Reason: Insomnia Last Admin: 01/01/25 20:24 Dose: 50 mg Vitamin D (Cholecalciferol (Vitamin D3) 10 Mcg Tablet) 10 mcg PO DAILY [facility] Last Admin: 01/04/25 07:57 Dose: 10 mcg Allergies Allergies Allergy/AdvReac Type Severity Reaction Status Date / Time acetaminophen (From TYLENOL) Allergy Intermediate HIVES Verified 12/29/24 14:09 meperidine (From Demerol) Allergy Unknown Verified 12/29/24 14:09 Assessment & Plan Assessment & Plan (1) Schizoaffective disorder: Qualifiers: Schizoaffective disorder type: bipolar Qualified Code(s): F25.0 - Schizoaffective disorder, bipolar type Status: Acute Code(s): F25.9 - Schizoaffective disorder, unspecified (2) Cannabis use disorder: Status: Acute Code(s): F12.90 - Cannabis use, unspecified, uncomplicated Plan Admit, Section XIIB, 15 minute checks Re-establish regime Clarify HCP status- HCP has signed pt into the unit. Encourage milieu Diagnostics as needed Collateral contact Discharge planning 12/31: EKG, lipid panel, a1c, ammonia, b12,folate 01/01: continue current management and treatment plan. 01/02: continue current management and treatment plan. 01/03: Invega INFANTE ordered as it is due on 01/04. 01/05: Continue current treatment regimen. Reason for continued inpatient stay Substantial Risk for: rapid decompensation Time Spent With Patient Time: Total time managing care of this patient today ____ minutes.
[2025-01-05] MEDS: Cholecalciferol (Vitamin D3) 10 MCG TABLET PO (10:36)
[2025-01-05] MEDS: OLANZapine ODT 10 MG TAB.RAPDIS 20 MG TRANSLINGU (20:42)
[2025-01-06 07:00] VITALS: BMI 35.4
[2025-01-06] MEDS: Cholecalciferol (Vitamin D3) 10 MCG TABLET PO (08:32)
--- NOTE | 2025-01-06 09:20 | HO.PSYCHPN ---
Subjective Subjective Date of Service: 01/06/25 Reason For Visit: Decompensated Psychosis Subjective Notes: Conditional Voluntary Healthcare Proxy: Yes Interim History: Patient refused to engage with this provider and states I do not want to talk to you. Leave me alone. Patient observed ambulating the milieu and sitting in the dining room. She appears in no acute distress. Medication Compliance: Yes Mental Status Exam Mental Status Exam Narrative: Appearance: Casually dressed, adequate hygiene Behavior: Irritable and uncooperative. Minimal eye contact, and there are no signs of psychomotor agitation or retardation Speech: Normal volume and prosody Thought process: No accessed Thought content: No assessed Mood: Irritable Affect: Flat SI: Not assessed HI: Not assessed VH/AH: Not assessed Delusions: Not assessed Insight/judgment: Not assessed Memory/cog: Alert and oriented. grossly intact to conversational testing Diagnostics Vital Signs (24Hr): BMI result Body Mass Index 35.0 Labs 12/29/24 14:22 12/29/24 14:22 Labs: Laboratory Results - last 48 hr 01/04/25 07:59 Vitamin B12 664 Folate 10.0 Medications Medications Current Medications Al Hydroxide/Mg Hydroxide (Magnesium Hydrox/Alum Hydrox 30 Ml Oral.Susp) 30 ml PO Q6H PRN PRN Reason: Heartburn/Nausea Albuterol Sulfate (Albuterol Sulfate 90 Mcg 8 Gm Inhaler) 2 puff INHALE Q4H PRN PRN Reason: bronchospasm Hydroxyzine HCl (Hydroxyzine Hcl 25 Mg Tablet) 25 mg PO Q6H PRN PRN Reason: mild anxiety [place] Carbonate ([place] Carbonate Er 300 Mg Tablet.Er) 600 mg PO BEDTIME [facility] Last Admin: 01/05/25 20:42 Dose: 600 mg [place] Carbonate ([place] Carbonate Er 450 Mg Tablet.Er) 450 mg PO DAILY [facility] Last Admin: 01/06/25 08:32 Dose: 450 mg Magnesium Hydroxide (Milk Of Magnesia 30 Ml Oral.Susp) 30 ml PO DAILY PRN PRN Reason: Constipation Multivitamins/Vitamin C (Multivitamin Tablet) 1 tab PO DAILY [facility] Last Admin: 01/06/25 08:32 Dose: 1 tab Nicotine (Nicotine 21 Mg Patch.Td24) 21 mg TRANSDERMA DAILY PRN PRN Reason: smoking cessation Nicotine Polacrilex (Nicotine Polacrilex 2 Mg Gum) 4 mg BUCCAL Q2H PRN PRN Reason: Nicotine Cravings Olanzapine (Olanzapine 5 Mg Tablet) 5 mg PO TID PRN PRN Reason: agitation Olanzapine (Olanzapine Odt 10 Mg Tab.Rapdis) 20 mg TRANSLINGU BEDTIME [facility] Last Admin: 01/05/25 20:42 Dose: 20 mg Paliperidone Palmitate (Paliperidone Palmitate 234 Mg/1.5 Ml Syringe) 234 mg IM Q30D [facility] Last Admin: 01/04/25 08:25 Dose: 234 mg Trazodone HCl (Trazodone Hcl 50 Mg Tablet) 50 mg PO BEDTIME MRX1 PRN PRN Reason: Insomnia Last Admin: 01/01/25 20:24 Dose: 50 mg Vitamin D (Cholecalciferol (Vitamin D3) 10 Mcg Tablet) 10 mcg PO DAILY [facility] Last Admin: 01/06/25 08:32 Dose: 10 mcg Allergies Allergies Allergy/AdvReac Type Severity Reaction Status Date / Time acetaminophen (From TYLENOL) Allergy Intermediate HIVES Verified 12/29/24 14:09 meperidine (From Demerol) Allergy Unknown Verified 12/29/24 14:09 Assessment & Plan Assessment & Plan (1) Schizoaffective disorder: Qualifiers: Schizoaffective disorder type: bipolar Qualified Code(s): F25.0 - Schizoaffective disorder, bipolar type Status: Acute Code(s): F25.9 - Schizoaffective disorder, unspecified (2) Cannabis use disorder: Status: Acute Code(s): F12.90 - Cannabis use, unspecified, uncomplicated Plan Admit, Section XIIB, 15 minute checks Re-establish regime Clarify HCP status- HCP has signed pt into the unit. Encourage milieu Diagnostics as needed Collateral contact Discharge planning 12/31: EKG, lipid panel, a1c, ammonia, b12,folate 01/01: continue current management and treatment plan. 01/02: continue current management and treatment plan. 01/03: Invega INFANTE ordered as it is due on 01/04. 01/04: Continue tx 01/06: Continue tx Patient educated on: therapeutic strategies Reason for continued inpatient stay Substantial Risk for: rapid decompensation Time Spent With Patient Time: Total time managing care of this patient today ____ minutes.
[2025-01-06 20:25] VITALS: BP 131/78; PULSE 81; RESP 16; TEMP 36.7; O2SAT 97
[2025-01-06] MEDS: OLANZapine ODT 10 MG TAB.RAPDIS 20 MG TRANSLINGU (20:53)
[2025-01-07 07:57] VITALS: RESP 18
[2025-01-07] MEDS: Cholecalciferol (Vitamin D3) 10 MCG TABLET PO (09:00)
--- NOTE | 2025-01-07 09:53 | P.PNPSI_ITS ---
Subjective Subjective Date of Service: 01/07/25 Reason For Visit: Decompensated Psychosis Subjective Notes: Conditional Voluntary Healthcare Proxy: Yes Guardianship: No Medical Problems Affecting Mental Status: No Interim History: Sivan is visable in the milieu, walking, listening to music and intermittently interactive with team and peers. She is asking today about discharge now that she has had her injection. She feels prepared to discharge and we can begin to talk with her residence and HCP about this which she agrees with. Medication Compliance: Yes Side effects from medications: No Attending Groups: Intermittent Review of Systems Acute medical concerns: No Medical Review of Systems: unchanged Review of Systems Review of Systems I am very good How are you? Mental Status Exam Mental Status Exam Patient Appearance: Appropriate Patient Orientation: Person, Place, Time and Situation Level of Consciousness: Alert Patient Behavior: Talkative and Good Eye Contact Mood Description: Constricted and Cheerful Affect Description: Constricted Patient Cognition Impaired: No Ability to Follow Directions: Fair Speech Pattern: Spontaneous Speech Memory Description: Remote Impaired Hallucinations: None Delusions: Not Present Thought Process: Distracted Thought Content: positive for [place], positive for Circumstantial and positive for Suicidal Ideation (denies) Judgement: Fair Diagnostics Vital Signs (24Hr): Vital Signs - 24 hr 01/06/25 20:25 01/07/25 07:57 Temperature 98.1 F Pulse Rate 81 Respiratory Rate 16 18 Blood Pressure 131/78 Pulse Oximetry 97 Oxygen Delivery Method Room Air BMI result Body Mass Index 35.4 Labs 12/29/24 14:22 12/29/24 14:22 Medications Medications Current Medications Al Hydroxide/Mg Hydroxide (Magnesium Hydrox/Alum Hydrox 30 Ml Oral.Susp) 30 ml PO Q6H PRN PRN Reason: Heartburn/Nausea Albuterol Sulfate (Albuterol Sulfate 90 Mcg 8 Gm Inhaler) 2 puff INHALE Q4H PRN PRN Reason: bronchospasm Hydroxyzine HCl (Hydroxyzine Hcl 25 Mg Tablet) 25 mg PO Q6H PRN PRN Reason: mild anxiety [place] Carbonate ([place] Carbonate Er 300 Mg Tablet.Er) 600 mg PO BEDTIME [facility] Last Admin: 01/06/25 20:53 Dose: 600 mg [place] Carbonate ([place] Carbonate Er 450 Mg Tablet.Er) 450 mg PO DAILY [facility] Last Admin: 01/07/25 09:00 Dose: 450 mg [place] Hydroxide (Milk Of Magnesia 30 Ml Oral.Susp) 30 ml PO DAILY PRN PRN Reason: Constipation Multivitamins/Vitamin C (Multivitamin Tablet) 1 tab PO DAILY [facility] Last Admin: 01/07/25 09:00 Dose: 1 tab Nicotine (Nicotine 21 Mg Patch.Td24) 21 mg TRANSDERMA DAILY PRN PRN Reason: smoking cessation Nicotine Polacrilex (Nicotine Polacrilex 2 Mg Gum) 4 mg BUCCAL Q2H PRN PRN Reason: Nicotine Cravings Olanzapine (Olanzapine 5 Mg Tablet) 5 mg PO TID PRN PRN Reason: agitation Olanzapine (Olanzapine Odt 10 Mg Tab.Rapdis) 20 mg TRANSLINGU BEDTIME [facility] Last Admin: 01/06/25 20:53 Dose: 20 mg Paliperidone Palmitate (Paliperidone Palmitate 234 Mg/1.5 Ml Syringe) 234 mg IM Q30D [facility] Last Admin: 01/04/25 08:25 Dose: 234 mg Trazodone HCl (Trazodone Hcl 50 Mg Tablet) 50 mg PO BEDTIME MRX1 PRN PRN Reason: Insomnia Last Admin: 01/01/25 20:24 Dose: 50 mg Vitamin D (Cholecalciferol (Vitamin D3) 10 Mcg Tablet) 10 mcg PO DAILY [facility] Last Admin: 01/07/25 09:00 Dose: 10 mcg Allergies Allergies Allergy/AdvReac Type Severity Reaction Status Date / Time acetaminophen (From TYLENOL) Allergy Intermediate HIVES Verified 12/29/24 14:09 meperidine (From Demerol) Allergy Unknown Verified 12/29/24 14:09 Assessment & Plan Assessment & Plan (1) Schizoaffective disorder: Qualifiers: Schizoaffective disorder type: bipolar Qualified Code(s): F25.0 - Schizoaffective disorder, bipolar type Status: Acute Code(s): F25.9 - Schizoaffective disorder, unspecified (2) Cannabis use disorder: Status: Acute Code(s): F12.90 - Cannabis use, unspecified, uncomplicated Plan Admit, Section XIIB, 15 minute checks Re-establish regime Clarify HCP status- HCP has signed pt into the unit. Encourage milieu Diagnostics as needed Collateral contact Discharge planning 12/31: EKG, lipid panel, a1c, ammonia, b12,folate 01/01: continue current management and treatment plan. 01/02: continue current management and treatment plan. 01/03: Invega INFANTE ordered as it is due on 01/04. 01/04: Continue tx 01/06: Continue tx 01/07: Continue tx. DC Planning Reason for continued inpatient stay Substantial Risk for: rapid decompensation Time Spent With Patient Time: Total time managing care of this patient today ____ minutes.
[2025-01-07] MEDS: OLANZapine ODT 10 MG TAB.RAPDIS 20 MG TRANSLINGU (19:59)
[2025-01-08] MEDS: Cholecalciferol (Vitamin D3) 10 MCG TABLET PO (08:45)
--- NOTE | 2025-01-08 09:32 | HO.PSYCHPN ---
Subjective Subjective Date of Service: 01/08/25 Reason For Visit: Decompensated Psychosis Interim History: met with patient; discussed with team Pleasant on approach with film writer; she says she is doing okay and asks how film writer is doing and on ending conversation says to take care Otherwise same presentation, pacing the halls, taking medications without problem Mental Status Exam Mental Status Exam Patient Appearance: Appropriate Patient Orientation: Person, Place, Time and Situation Level of Consciousness: Alert Patient Behavior: Talkative and Good Eye Contact Behavior Comments: mostly friendly on approach; paces calle; does not interact much with peers Mood Description: Constricted ( ok ) and Cheerful Affect Description: Constricted Patient Cognition Impaired: No Ability to Follow Directions: Fair Speech Pattern: Spontaneous Speech Memory Description: Remote Impaired Hallucinations: None (denies) Delusions: Not Present (none expressed) Thought Process: Distracted Thought Content: positive for [place], positive for Goal Oriented and positive for Suicidal Ideation (denies) Judgement and Insight: Improving Diagnostics Vital Signs (24Hr): BMI result Body Mass Index 35.4 Labs 12/29/24 14:22 12/29/24 14:22 Medications Medications Current Medications Al Hydroxide/Mg Hydroxide (Magnesium Hydrox/Alum Hydrox 30 Ml Oral.Susp) 30 ml PO Q6H PRN PRN Reason: Heartburn/Nausea Albuterol Sulfate (Albuterol Sulfate 90 Mcg 8 Gm Inhaler) 2 puff INHALE Q4H PRN PRN Reason: bronchospasm Hydroxyzine HCl (Hydroxyzine Hcl 25 Mg Tablet) 25 mg PO Q6H PRN PRN Reason: mild anxiety Ibuprofen (Ibuprofen 800 Mg Tablet) 800 mg PO Q8H PRN PRN Reason: Pain, Mild (Pain Scale 1-3) [place] Carbonate ([place] Carbonate Er 300 Mg Tablet.Er) 600 mg PO BEDTIME [facility] Last Admin: 01/07/25 19:58 Dose: 600 mg [place] Carbonate ([place] Carbonate Er 450 Mg Tablet.Er) 450 mg PO DAILY [facility] Last Admin: 01/08/25 08:45 Dose: 450 mg Magnesium Hydroxide (Milk Of Magnesia 30 Ml Oral.Susp) 30 ml PO DAILY PRN PRN Reason: Constipation Multivitamins/Vitamin C (Multivitamin Tablet) 1 tab PO DAILY [facility] Last Admin: 01/08/25 08:45 Dose: 1 tab Nicotine (Nicotine 21 Mg Patch.Td24) 21 mg TRANSDERMA DAILY PRN PRN Reason: smoking cessation Nicotine Polacrilex (Nicotine Polacrilex 2 Mg Gum) 4 mg BUCCAL Q2H PRN PRN Reason: Nicotine Cravings Olanzapine (Olanzapine 5 Mg Tablet) 5 mg PO TID PRN PRN Reason: agitation Olanzapine (Olanzapine Odt 10 Mg Tab.Rapdis) 20 mg TRANSLINGU BEDTIME [facility] Last Admin: 01/07/25 19:59 Dose: 20 mg Paliperidone Palmitate (Paliperidone Palmitate 234 Mg/1.5 Ml Syringe) 234 mg IM Q30D [facility] Last Admin: 01/04/25 08:25 Dose: 234 mg Trazodone HCl (Trazodone Hcl 50 Mg Tablet) 50 mg PO BEDTIME MRX1 PRN PRN Reason: Insomnia Last Admin: 01/01/25 20:24 Dose: 50 mg Vitamin D (Cholecalciferol (Vitamin D3) 10 Mcg Tablet) 10 mcg PO DAILY [facility] Last Admin: 01/08/25 08:45 Dose: 10 mcg Allergies Allergies Allergy/AdvReac Type Severity Reaction Status Date / Time acetaminophen (From TYLENOL) Allergy Intermediate HIVES Verified 12/29/24 14:09 meperidine (From Demerol) Allergy Unknown Verified 12/29/24 14:09 Assessment & Plan Assessment & Plan (1) Schizoaffective disorder: Qualifiers: Schizoaffective disorder type: bipolar Qualified Code(s): F25.0 - Schizoaffective disorder, bipolar type Status: Acute Code(s): F25.9 - Schizoaffective disorder, unspecified (2) Cannabis use disorder: Status: Acute Code(s): F12.90 - Cannabis use, unspecified, uncomplicated Plan Admit, Section XIIB, 15 minute checks Re-establish regime Clarify HCP status- HCP has signed pt into the unit. Encourage milieu Diagnostics as needed Collateral contact Discharge planning 12/31: EKG, lipid panel, a1c, ammonia, b12,folate 01/01: continue current management and treatment plan. 01/02: continue current management and treatment plan. 01/03: In[facility]ga INFANTE ordered as it is due on 01/04. 01/04: Continue tx 01/06: Continue tx 01/08 Pleasant on approach with film writer;? she says she is doing okay and asks how film writer is doing and on ending conversation says to take care Otherwise same presentation, pacing the halls, taking medications without problem Patient educated on: diagnosis Informed Consent: understands and further education needed Reason for continued inpatient stay Substantial Risk for: stable for discharge and rapid decompensation Time Spent With Patient Time: Total time managing care of this patient today ____ minutes.
[2025-01-08 20:00] VITALS: RESP 18
[2025-01-08] MEDS: OLANZapine ODT 10 MG TAB.RAPDIS 20 MG TRANSLINGU (20:35)
[2025-01-09 08:00] VITALS: RESP 16
[2025-01-09] MEDS: Cholecalciferol (Vitamin D3) 10 MCG TABLET PO (08:47)
--- NOTE | 2025-01-09 10:18 | HO.PSYCHPN ---
Subjective Subjective Date of Service: 01/09/25 Reason For Visit: Decompensated Psychosis Interim History: met with patient; discussed with team same presentation; calm; polite to staff and taking meds. in behavioral control Mental Status Exam Mental Status Exam Patient Appearance: Appropriate Patient Orientation: Person, Place, Time and Situation Level of Consciousness: Alert Patient Behavior: Talkative and Good Eye Contact Behavior Comments: mostly friendly on approach; paces calle; does not interact much with peers Mood Description: Constricted ( ok ) and Cheerful Affect Description: Constricted Patient Cognition Impaired: No Ability to Follow Directions: Fair Speech Pattern: Spontaneous Speech Memory Description: Remote Impaired Hallucinations: None (denies) Delusions: Not Present (none expressed) Thought Process: Distracted Thought Content: positive for [place], positive for Goal Oriented and positive for Suicidal Ideation (denies) Judgement and Insight: Improving Diagnostics Vital Signs (24Hr): Vital Signs - 24 hr 01/08/25 20:00 01/09/25 08:00 Respiratory Rate 18 16 BMI result Body Mass Index 35.4 Labs 12/29/24 14:22 12/29/24 14:22 Medications Medications Current Medications Al Hydroxide/Mg Hydroxide (Magnesium Hydrox/Alum Hydrox 30 Ml Oral.Susp) 30 ml PO Q6H PRN PRN Reason: Heartburn/Nausea Albuterol Sulfate (Albuterol Sulfate 90 Mcg 8 Gm Inhaler) 2 puff INHALE Q4H PRN PRN Reason: bronchospasm Hydroxyzine HCl (Hydroxyzine Hcl 25 Mg Tablet) 25 mg PO Q6H PRN PRN Reason: mild anxiety Ibuprofen (Ibuprofen 800 Mg Tablet) 800 mg PO Q8H PRN PRN Reason: Pain, Mild (Pain Scale 1-3) [place] Carbonate ([place] Carbonate Er 300 Mg Tablet.Er) 600 mg PO BEDTIME [facility] Last Admin: 01/08/25 20:35 Dose: 600 mg [place] Carbonate ([place] Carbonate Er 450 Mg Tablet.Er) 450 mg PO DAILY [facility] Last Admin: 01/09/25 08:47 Dose: 450 mg Magnesium Hydroxide (Milk Of Magnesia 30 Ml Oral.Susp) 30 ml PO DAILY PRN PRN Reason: Constipation Multivitamins/Vitamin C (Multivitamin Tablet) 1 tab PO DAILY [facility] Last Admin: 01/09/25 08:46 Dose: 1 tab Nicotine (Nicotine 21 Mg Patch.Td24) 21 mg TRANSDERMA DAILY PRN PRN Reason: smoking cessation Nicotine Polacrilex (Nicotine Polacrilex 2 Mg Gum) 4 mg BUCCAL Q2H PRN PRN Reason: Nicotine Cravings Olanzapine (Olanzapine 5 Mg Tablet) 5 mg PO TID PRN PRN Reason: agitation Olanzapine (Olanzapine Odt 10 Mg Tab.Rapdis) 20 mg TRANSLINGU BEDTIME [facility] Last Admin: 01/08/25 20:35 Dose: 20 mg Paliperidone Palmitate (Paliperidone Palmitate 234 Mg/1.5 Ml Syringe) 234 mg IM Q30D [facility] Last Admin: 01/04/25 08:25 Dose: 234 mg Trazodone HCl (Trazodone Hcl 50 Mg Tablet) 50 mg PO BEDTIME MRX1 PRN PRN Reason: Insomnia Last Admin: 01/01/25 20:24 Dose: 50 mg Vitamin D (Cholecalciferol (Vitamin D3) 10 Mcg Tablet) 10 mcg PO DAILY [facility] Last Admin: 01/09/25 08:47 Dose: 10 mcg Allergies Allergies Allergy/AdvReac Type Severity Reaction Status Date / Time acetaminophen (From TYLENOL) Allergy Intermediate HIVES Verified 12/29/24 14:09 meperidine (From Demerol) Allergy Unknown Verified 12/29/24 14:09 Assessment & Plan Assessment & Plan (1) Schizoaffective disorder: Qualifiers: Schizoaffective disorder type: bipolar Qualified Code(s): F25.0 - Schizoaffective disorder, bipolar type Status: Acute Code(s): F25.9 - Schizoaffective disorder, unspecified (2) Cannabis use disorder: Status: Acute Code(s): F12.90 - Cannabis use, unspecified, uncomplicated Plan Admit, Section XIIB, 15 minute checks Re-establish regime Clarify HCP status- HCP has signed pt into the unit. Encourage milieu Diagnostics as needed Collateral contact Discharge planning 12/31: EKG, lipid panel, a1c, ammonia, b12,folate 01/01: continue current management and treatment plan. 01/02: continue current management and treatment plan. 01/03: In[facility]ga INFANTE ordered as it is due on 01/04. 01/04: Continue tx 01/06: Continue tx 01/08 Pleasant on approach with creative services writer;? she says she is doing okay and asks how creative services writer is doing and on ending conversation says to take care Otherwise same presentation, pacing the halls, taking medications without problem 01/09 CTP Patient educated on: diagnosis Informed Consent: understands Reason for continued inpatient stay Substantial Risk for: stable for discharge Time Spent With Patient Time: Total time managing care of this patient today ____ minutes.
[2025-01-09 20:00] VITALS: RESP 16
[2025-01-09] MEDS: OLANZapine ODT 10 MG TAB.RAPDIS 20 MG TRANSLINGU (21:26)
--- NOTE | 2025-01-10 10:02 | P.PNPSI_ITS ---
Subjective Subjective Date of Service: 01/10/25 Reason For Visit: Decompensated Psychosis Subjective Notes: Conditional Voluntary Healthcare Proxy: Yes Guardianship: No Medical Problems Affecting Mental Status: No Interim History: Hi, I love you all, can I go home now? Team reports a calm weekend. Pt is visable, interactive. She does not allow clinical discussions, with fixed beliefs that team are imposters, however, she reports feeling well, mood is stable, there is no agitation or aggression and she denies medical issues or concerns Denies SI,HI,AH,VH Medication Compliance: Yes Side effects from medications: No Attending Groups: Intermittent Review of Systems Acute medical concerns: No Review of Systems Review of Systems I am fine Mental Status Exam Mental Status Exam Patient Appearance: Appropriate Patient Orientation: Person, Place, Time and Situation Level of Consciousness: Alert Patient Behavior: Talkative and Good Eye Contact Mood Description: Constricted ( ok ) and Expansive Affect Description: Constricted Patient Cognition Impaired: No Ability to Follow Directions: Fair Speech Pattern: Spontaneous Speech Memory Description: Remote Impaired Hallucinations: None (denies) Delusions: Not Present (none expressed) Thought Process: Distracted Thought Content: positive for [place], positive for Goal Oriented and positive for Suicidal Ideation (denies) Judgement: Fair Judgement and Insight: Improving Diagnostics Vital Signs (24Hr): Vital Signs - 24 hr 01/09/25 20:00 Respiratory Rate 16 BMI result Body Mass Index 35.4 Labs 12/29/24 14:22 12/29/24 14:22 Medications Medications Current Medications Al Hydroxide/Mg Hydroxide (Magnesium Hydrox/Alum Hydrox 30 Ml Oral.Susp) 30 ml PO Q6H PRN PRN Reason: Heartburn/Nausea Albuterol Sulfate (Albuterol Sulfate 90 Mcg 8 Gm Inhaler) 2 puff INHALE Q4H PRN PRN Reason: bronchospasm Hydroxyzine HCl (Hydroxyzine Hcl 25 Mg Tablet) 25 mg PO Q6H PRN PRN Reason: mild anxiety Ibuprofen (Ibuprofen 800 Mg Tablet) 800 mg PO Q8H PRN PRN Reason: Pain, Mild (Pain Scale 1-3) [place] Carbonate ([place] Carbonate Er 300 Mg Tablet.Er) 600 mg PO BEDTIME [facility] Last Admin: 01/09/25 21:26 Dose: 600 mg [place] Carbonate ([place] Carbonate Er 450 Mg Tablet.Er) 450 mg PO DAILY [facility] Last Admin: 01/09/25 08:47 Dose: 450 mg Magnesium Hydroxide (Milk Of Magnesia 30 Ml Oral.Susp) 30 ml PO DAILY PRN PRN Reason: Constipation Multivitamins/Vitamin C (Multivitamin Tablet) 1 tab PO DAILY [facility] Last Admin: 01/09/25 08:46 Dose: 1 tab Nicotine (Nicotine 21 Mg Patch.Td24) 21 mg TRANSDERMA DAILY PRN PRN Reason: smoking cessation Nicotine Polacrilex (Nicotine Polacrilex 2 Mg Gum) 4 mg BUCCAL Q2H PRN PRN Reason: Nicotine Cravings Olanzapine (Olanzapine 5 Mg Tablet) 5 mg PO TID PRN PRN Reason: agitation Olanzapine (Olanzapine Odt 10 Mg Tab.Rapdis) 20 mg TRANSLINGU BEDTIME [facility] Last Admin: 01/09/25 21:26 Dose: 20 mg Paliperidone Palmitate (Paliperidone Palmitate 234 Mg/1.5 Ml Syringe) 234 mg IM Q30D [facility] Last Admin: 01/04/25 08:25 Dose: 234 mg Trazodone HCl (Trazodone Hcl 50 Mg Tablet) 50 mg PO BEDTIME MRX1 PRN PRN Reason: Insomnia Last Admin: 01/09/25 21:26 Dose: 50 mg Vitamin D (Cholecalciferol (Vitamin D3) 10 Mcg Tablet) 10 mcg PO DAILY [facility] Last Admin: 01/09/25 08:47 Dose: 10 mcg Allergies Allergies Allergy/AdvReac Type Severity Reaction Status Date / Time acetaminophen (From TYLENOL) Allergy Intermediate HIVES Verified 12/29/24 14:09 meperidine (From Demerol) Allergy Unknown Verified 12/29/24 14:09 Assessment & Plan Assessment & Plan (1) Schizoaffective disorder: Qualifiers: Schizoaffective disorder type: bipolar Qualified Code(s): F25.0 - Schizoaffective disorder, bipolar type Status: Acute Code(s): F25.9 - Schizoaffective disorder, unspecified (2) Cannabis use disorder: Status: Acute Code(s): F12.90 - Cannabis use, unspecified, uncomplicated Plan Admit, Section XIIB, 15 minute checks Re-establish regime Clarify HCP status- HCP has signed pt into the unit. Encourage milieu Diagnostics as needed Collateral contact Discharge planning 12/31: EKG, lipid panel, a1c, ammonia, b12,folate 01/01: continue current management and treatment plan. 01/02: continue current management and treatment plan. 01/03: [facility] INFANTE ordered as it is due on 01/04. 01/04: Continue tx 01/06: Continue tx 01/08 Pleasant on approach with designer/writer;? she says she is doing okay and asks how designer/writer is doing and on ending conversation says to take care Otherwise same presentation, pacing the halls, taking medications without problem 01/09 CTP 01/10 Continue plan of care, discharge planning with pt's retirement and HCP if all agree. Reason for continued inpatient stay Substantial Risk for: rapid decompensation Time Spent With Patient Time: Total time managing care of this patient today ____ minutes.
[2025-01-10] MEDS: Cholecalciferol (Vitamin D3) 10 MCG TABLET PO (10:11)
[2025-01-10] MEDS: OLANZapine ODT 10 MG TAB.RAPDIS 20 MG TRANSLINGU (20:41)
[2025-01-11 08:00] VITALS: RESP 18
[2025-01-11] MEDS: Cholecalciferol (Vitamin D3) 10 MCG TABLET PO (10:28)
--- NOTE | 2025-01-11 13:13 | P.PNPSI_ITS ---
Subjective Subjective Date of Service: 01/11/25 Reason For Visit: Decompensated Psychosis Subjective Notes: Conditional Voluntary Healthcare Proxy: Yes Guardianship: No Medical Problems Affecting Mental Status: No Interim History: Accepting medications, denies SI,HI,AH, VH. Continues to decline any type of clinical discussion. I will tell you if that coversation needs to happen. Team is working on discharge planning with her residence. Medication Compliance: Yes Side effects from medications: No Attending Groups: Yes Review of Systems Acute medical concerns: No Medical Review of Systems: unchanged Review of Systems Review of Systems Denies Mental Status Exam Mental Status Exam Patient Appearance: Appropriate Patient Orientation: Person, Place, Time and Situation Level of Consciousness: Alert Patient Behavior: Talkative and Good Eye Contact Mood Description: Constricted ( ok ) and Expansive Affect Description: Constricted Patient Cognition Impaired: No Ability to Follow Directions: Fair Speech Pattern: Spontaneous Speech Memory Description: Remote Impaired Hallucinations: None (denies) Delusions: Not Present (none expressed) Thought Process: Distracted Thought Content: positive for [place], positive for Goal Oriented and positive for Suicidal Ideation (denies) Judgement: Fair Judgement and Insight: Improving Diagnostics Vital Signs (24Hr): Vital Signs - 24 hr 01/11/25 08:00 Respiratory Rate 18 BMI result Body Mass Index 35.4 Labs 12/29/24 14:22 12/29/24 14:22 Medications Medications Current Medications Al Hydroxide/Mg Hydroxide (Magnesium Hydrox/Alum Hydrox 30 Ml Oral.Susp) 30 ml PO Q6H PRN PRN Reason: Heartburn/Nausea Albuterol Sulfate (Albuterol Sulfate 90 Mcg 8 Gm Inhaler) 2 puff INHALE Q4H PRN PRN Reason: bronchospasm Hydroxyzine HCl (Hydroxyzine Hcl 25 Mg Tablet) 25 mg PO Q6H PRN PRN Reason: mild anxiety Ibuprofen (Ibuprofen 800 Mg Tablet) 800 mg PO Q8H PRN PRN Reason: Pain, Mild (Pain Scale 1-3) [place] Carbonate ([place] Carbonate Er 300 Mg Tablet.Er) 600 mg PO BEDTIME [facility] Last Admin: 01/10/25 20:41 Dose: 600 mg [place] Carbonate ([place] Carbonate Er 450 Mg Tablet.Er) 450 mg PO DAILY [facility] Last Admin: 01/11/25 10:28 Dose: 450 mg Magn[place] Hydroxide (Milk Of Magnesia 30 Ml Oral.Susp) 30 ml PO DAILY PRN PRN Reason: Constipation Multivitamins/Vitamin C (Multivitamin Tablet) 1 tab PO DAILY [facility] Last Admin: 01/11/25 10:28 Dose: 1 tab Nicotine (Nicotine 21 Mg Patch.Td24) 21 mg TRANSDERMA DAILY PRN PRN Reason: smoking cessation Nicotine Polacrilex (Nicotine Polacrilex 2 Mg Gum) 4 mg BUCCAL Q2H PRN PRN Reason: Nicotine Cravings Olanzapine (Olanzapine 5 Mg Tablet) 5 mg PO TID PRN PRN Reason: agitation Olanzapine (Olanzapine Odt 10 Mg Tab.Rapdis) 20 mg TRANSLINGU BEDTIME [facility] Last Admin: 01/10/25 20:41 Dose: 20 mg Paliperidone Palmitate (Paliperidone Palmitate 234 Mg/1.5 Ml Syringe) 234 mg IM Q30D [facility] Last Admin: 01/04/25 08:25 Dose: 234 mg Trazodone HCl (Trazodone Hcl 50 Mg Tablet) 50 mg PO BEDTIME MRX1 PRN PRN Reason: Insomnia Last Admin: 01/09/25 21:26 Dose: 50 mg Vitamin D (Cholecalciferol (Vitamin D3) 10 Mcg Tablet) 10 mcg PO DAILY [facility] Last Admin: 01/11/25 10:28 Dose: 10 mcg Allergies Allergies Allergy/AdvReac Type Severity Reaction Status Date / Time acetaminophen (From TYLENOL) Allergy Intermediate HIVES Verified 12/29/24 14:09 meperidine (From Demerol) Allergy Unknown Verified 12/29/24 14:09 Assessment & Plan Assessment & Plan (1) Schizoaffective disorder: Qualifiers: Schizoaffective disorder type: bipolar Qualified Code(s): F25.0 - Schizoaffective disorder, bipolar type Status: Acute Code(s): F25.9 - Schizoaffective disorder, unspecified (2) Cannabis use disorder: Status: Acute Code(s): F12.90 - Cannabis use, unspecified, uncomplicated Plan Admit, Section XIIB, 15 minute checks Re-establish regime Clarify HCP status- HCP has signed pt into the unit. Encourage milieu Diagnostics as needed Collateral contact Discharge planning 12/31: EKG, lipid panel, a1c, ammonia, b12,folate 01/01: continue current management and treatment plan. 01/02: continue current management and treatment plan. 01/03: Invega INFANTE ordered as it is due on 01/04. 01/04: Continue tx 01/06: Continue tx 01/08 Pleasant on approach with life underwriter;? she says she is doing okay and asks how life underwriter is doing and on ending conversation says to take care Otherwise same presentation, pacing the halls, taking medications without problem 01/09 CTP 01/11 Discharge planning Reason for continued inpatient stay Substantial Risk for: rapid decompensation Time Spent With Patient Time: Total time managing care of this patient today ____ minutes.
[2025-01-11 20:00] VITALS: RESP 16
[2025-01-11] MEDS: OLANZapine ODT 10 MG TAB.RAPDIS 20 MG TRANSLINGU (20:57)
[2025-01-12 08:00] VITALS: RESP 14
[2025-01-12] MEDS: Cholecalciferol (Vitamin D3) 10 MCG TABLET PO (08:38)
--- NOTE | 2025-01-12 10:02 | HO.PSYCHPN ---
Subjective Subjective Date of Service: 01/12/25 Reason For Visit: Decompensated Psychosis Subjective Notes: Conditional Voluntary Healthcare Proxy: Yes Interim History: When you ask me those questions you think I am sick, but I am not sick, I feel really good, so ask those questions to the other people here who are sick and I will help you take care of them, OK? Beginning to explain her thoughts on resisting answering questions about how she is doing. Appears to make her feel a loss of control, identity, wanting to be more actively engaged and helpful to others she reports. Medication Compliance: Yes Side effects from medications: No Attending Groups: Yes Review of Systems Acute medical concerns: No Medical Review of Systems: unchanged Review of Systems Review of Systems no Mental Status Exam Mental Status Exam Patient Appearance: Appropriate Patient Orientation: Person, Place, Time and Situation Level of Consciousness: Alert Patient Behavior: Talkative and Good Eye Contact Mood Description: Constricted ( ok ) and Expansive Affect Description: Constricted Patient Cognition Impaired: No Ability to Follow Directions: Fair Speech Pattern: Spontaneous Speech Memory Description: Remote Impaired Hallucinations: None (denies) Delusions: Not Present (none expressed) Thought Process: Distracted Thought Content: positive for [place], positive for Goal Oriented and positive for Suicidal Ideation (denies) Judgement: Fair Judgement and Insight: Improving Diagnostics Vital Signs (24Hr): Vital Signs - 24 hr 01/11/25 20:00 01/12/25 08:00 Respiratory Rate 16 14 BMI result Body Mass Index 35.4 Labs 12/29/24 14:22 12/29/24 14:22 Medications Medications Current Medications Al Hydroxide/Mg Hydroxide (Magnesium Hydrox/Alum Hydrox 30 Ml Oral.Susp) 30 ml PO Q6H PRN PRN Reason: Heartburn/Nausea Albuterol Sulfate (Albuterol Sulfate 90 Mcg 8 Gm Inhaler) 2 puff INHALE Q4H PRN PRN Reason: bronchospasm Hydroxyzine HCl (Hydroxyzine Hcl 25 Mg Tablet) 25 mg PO Q6H PRN PRN Reason: mild anxiety Ibuprofen (Ibuprofen 800 Mg Tablet) 800 mg PO Q8H PRN PRN Reason: Pain, Mild (Pain Scale 1-3) [place] Carbonate ([place] Carbonate Er 300 Mg Tablet.Er) 600 mg PO BEDTIME [facility] Last Admin: 01/11/25 20:57 Dose: 600 mg [place] Carbonate ([place] Carbonate Er 450 Mg Tablet.Er) 450 mg PO DAILY [facility] Last Admin: 01/12/25 08:38 Dose: 450 mg Magnesium Hydroxide (Milk Of Magnesia 30 Ml Oral.Susp) 30 ml PO DAILY PRN PRN Reason: Constipation Multivitamins/Vitamin C (Multivitamin Tablet) 1 tab PO DAILY [facility] Last Admin: 01/12/25 08:38 Dose: 1 tab Nicotine (Nicotine 21 Mg Patch.Td24) 21 mg TRANSDERMA DAILY PRN PRN Reason: smoking cessation Nicotine Polacrilex (Nicotine Polacrilex 2 Mg Gum) 4 mg BUCCAL Q2H PRN PRN Reason: Nicotine Cravings Olanzapine (Olanzapine 5 Mg Tablet) 5 mg PO TID PRN PRN Reason: agitation Olanzapine (Olanzapine Odt 10 Mg Tab.Rapdis) 20 mg TRANSLINGU BEDTIME [facility] Last Admin: 01/11/25 20:57 Dose: 20 mg Paliperidone Palmitate (Paliperidone Palmitate 234 Mg/1.5 Ml Syringe) 234 mg IM Q30D [facility] Last Admin: 01/04/25 08:25 Dose: 234 mg Trazodone HCl (Trazodone Hcl 50 Mg Tablet) 50 mg PO BEDTIME MRX1 PRN PRN Reason: Insomnia Last Admin: 01/09/25 21:26 Dose: 50 mg Vitamin D (Cholecalciferol (Vitamin D3) 10 Mcg Tablet) 10 mcg PO DAILY [facility] Last Admin: 01/12/25 08:38 Dose: 10 mcg Allergies Allergies Allergy/AdvReac Type Severity Reaction Status Date / Time acetaminophen (From TYLENOL) Allergy Intermediate HIVES Verified 12/29/24 14:09 meperidine (From Demerol) Allergy Unknown Verified 12/29/24 14:09 Assessment & Plan Assessment & Plan (1) Schizoaffective disorder: Qualifiers: Schizoaffective disorder type: bipolar Qualified Code(s): F25.0 - Schizoaffective disorder, bipolar type Status: Acute Code(s): F25.9 - Schizoaffective disorder, unspecified (2) Cannabis use disorder: Status: Acute Code(s): F12.90 - Cannabis use, unspecified, uncomplicated Plan Admit, Section XIIB, 15 minute checks Re-establish regime Clarify HCP status- HCP has signed pt into the unit. Encourage milieu Diagnostics as needed Collateral contact Discharge planning 12/31: EKG, lipid panel, a1c, ammonia, b12,folate 01/01: continue current management and treatment plan. 01/02: continue current management and treatment plan. 01/03: Invega INFANTE ordered as it is due on 01/04. 01/04: Continue tx 01/06: Continue tx 01/08 Pleasant on approach with commercial lines underwriter;? she says she is doing okay and asks how commercial lines underwriter is doing and on ending conversation says to take care Otherwise same presentation, pacing the halls, taking medications without problem 01/09 CTP 01/12 Continue plan of care and [place] [facility] level 01/13 Reason for continued inpatient stay Substantial Risk for: rapid decompensation Time Spent With Patient Time: Total time managing care of this patient today ____ minutes.
[2025-01-12] MEDS: OLANZapine ODT 10 MG TAB.RAPDIS 20 MG TRANSLINGU (20:26)
[2025-01-13 07:00] VITALS: BMI 35.2
[2025-01-13 08:00] VITALS: RESP 18
[2025-01-13] MEDS: Cholecalciferol (Vitamin D3) 10 MCG TABLET PO (08:41)
--- NOTE | 2025-01-13 12:44 | HO.PSYCHPN ---
Subjective Subjective Date of Service: 01/13/25 Reason For Visit: Decompensated Psychosis Subjective Notes: Conditional Voluntary Healthcare Proxy: Yes Guardianship: No Medical Problems Affecting Mental Status: No Interim History: Care review with HCP Yaquelin Elder [phone]. Yaquelin is in agreement regarding discharge. She reports pt has upcoming concert and [employer] plans. Discussed [place] and she is in agreement. Will leave a message for OP team to review this idea. Yaquelin reports she believes that the residences concept of the nurses training patients on their diagnoses and regimes is inappropriate for pt which our team agrees. Pt becomes very defensive if you begin to ask clinical questions. She does not believe she has illness and will not discuss this. Yaquelin believes this was the precipitant for admission, when the residential team attempted to educate her regarding Invega and Schizophrenia. Team will discuss with residential team. Discharge planning for 01/17. Medication Compliance: Yes Side effects from medications: No Attending Groups: Yes Review of Systems Acute medical concerns: No Medical Review of Systems: unchanged Review of Systems Review of Systems Denies Mental Status Exam Mental Status Exam Patient Appearance: Appropriate Patient Orientation: Person, Place, Time and Situation Level of Consciousness: Alert Patient Behavior: Talkative and Good Eye Contact Mood Description: Constricted ( ok ) and Expansive Affect Description: Constricted Patient Cognition Impaired: No Ability to Follow Directions: Fair Speech Pattern: Spontaneous Speech Memory Description: Remote Impaired Hallucinations: None (denies) Delusions: Not Present (none expressed) Thought Process: Distracted Thought Content: positive for [place], positive for Goal Oriented and positive for Suicidal Ideation (denies) Judgement: Fair Judgement and Insight: Improving Diagnostics Vital Signs (24Hr): Vital Signs - 24 hr 01/13/25 08:00 Respiratory Rate 18 BMI result Body Mass Index 35.2 Labs 12/29/24 14:22 12/29/24 14:22 Medications Medications Current Medications Al Hydroxide/Mg Hydroxide (Magnesium Hydrox/Alum Hydrox 30 Ml Oral.Susp) 30 ml PO Q6H PRN PRN Reason: Heartburn/Nausea Albuterol Sulfate (Albuterol Sulfate 90 Mcg 8 Gm Inhaler) 2 puff INHALE Q4H PRN PRN Reason: bronchospasm Hydroxyzine HCl (Hydroxyzine Hcl 25 Mg Tablet) 25 mg PO Q6H PRN PRN Reason: mild anxiety Ibuprofen (Ibuprofen 800 Mg Tablet) 800 mg PO Q8H PRN PRN Reason: Pain, Mild (Pain Scale 1-3) Last Admin: 01/12/25 20:27 Dose: 800 mg [place] Carbonate ([place] Carbonate Er 300 Mg Tablet.Er) 600 mg PO BEDTIME [facility] Last Admin: 01/12/25 20:28 Dose: 600 mg [place] Carbonate ([place] Carbonate Er 450 Mg Tablet.Er) 450 mg PO DAILY [facility] Last Admin: 01/13/25 08:41 Dose: 450 mg Magnesium Hydroxide (Milk Of Magnesia 30 Ml Oral.Susp) 30 ml PO DAILY PRN PRN Reason: Constipation Multivitamins/Vitamin C (Multivitamin Tablet) 1 tab PO DAILY [facility] Last Admin: 01/13/25 08:41 Dose: 1 tab Nicotine (Nicotine 21 Mg Patch.Td24) 21 mg TRANSDERMA DAILY PRN PRN Reason: smoking cessation Nicotine Polacrilex (Nicotine Polacrilex 2 Mg Gum) 4 mg BUCCAL Q2H PRN PRN Reason: Nicotine Cravings Olanzapine (Olanzapine 5 Mg Tablet) 5 mg PO TID PRN PRN Reason: agitation Olanzapine (Olanzapine Odt 10 Mg Tab.Rapdis) 20 mg TRANSLINGU BEDTIME [facility] Last Admin: 01/12/25 20:26 Dose: 20 mg Paliperidone Palmitate (Paliperidone Palmitate 234 Mg/1.5 Ml Syringe) 234 mg IM Q30D [facility] Last Admin: 01/04/25 08:25 Dose: 234 mg Trazodone HCl (Trazodone Hcl 50 Mg Tablet) 50 mg PO BEDTIME MRX1 PRN PRN Reason: Insomnia Last Admin: 01/09/25 21:26 Dose: 50 mg Vitamin D (Cholecalciferol (Vitamin D3) 10 Mcg Tablet) 10 mcg PO DAILY [facility] Last Admin: 01/13/25 08:41 Dose: 10 mcg Allergies Allergies Allergy/AdvReac Type Severity Reaction Status Date / Time acetaminophen (From TYLENOL) Allergy Intermediate HIVES Verified 12/29/24 14:09 meperidine (From Demerol) Allergy Unknown Verified 12/29/24 14:09 Assessment & Plan Assessment & Plan (1) Schizoaffective disorder: Qualifiers: Schizoaffective disorder type: bipolar Qualified Code(s): F25.0 - Schizoaffective disorder, bipolar type Status: Acute Code(s): F25.9 - Schizoaffective disorder, unspecified Plan Admit, Section XIIB, 15 minute checks Re-establish regime Clarify HCP status- HCP has signed pt into the unit. Encourage milieu Diagnostics as needed Collateral contact Discharge planning 12/31: EKG, lipid panel, a1c, ammonia, b12,folate 01/01: continue current management and treatment plan. 01/02: continue current management and treatment plan. 01/03: Invega INFANTE ordered as it is due on 01/04. 01/04: Continue tx 01/06: Continue tx 01/08 Pleasant on approach with tech writer;? she says she is doing okay and asks how tech writer is doing and on ending conversation says to take care Otherwise same presentation, pacing the halls, taking medications without problem 01/09 CTP 01/12 Continue plan of care and discharge planning with her senior living. [place] level 01/13 01/13 [place] level not drawn DC planning Reason for continued inpatient stay Substantial Risk for: rapid decompensation Time Spent With Patient Time: Total time managing care of this patient today ____ minutes.
[2025-01-13] MEDS: OLANZapine ODT 10 MG TAB.RAPDIS 20 MG TRANSLINGU (21:12)
[2025-01-14] MEDS: Cholecalciferol (Vitamin D3) 10 MCG TABLET PO (07:58)
[2025-01-14 08:00] VITALS: RESP 16
--- NOTE | 2025-01-14 10:00 | P.PNPSI_ITS ---
Subjective Subjective Date of Service: 01/14/25 Reason For Visit: Decompensated Psychosis Subjective Notes: Conditional Voluntary Healthcare Proxy: Yes Guardianship: No Medical Problems Affecting Mental Status: No Interim History: Denies SI,HI,AH,VH. No, I am not sick I can help you take care of people who are sick here, but I am not one of them. Plans DC for 01/17. Several upcoming events she plans to attend which she is very excited about including concerts, [employer] and family events. Medication Compliance: Yes Side effects from medications: No Attending Groups: Yes Review of Systems Acute medical concerns: No Review of Systems Review of Systems Denies Mental Status Exam Mental Status Exam Patient Appearance: Appropriate Patient Orientation: Person, Place, Time and Situation Level of Consciousness: Alert Patient Behavior: Talkative and Good Eye Contact Mood Description: Constricted ( ok ) and Expansive Affect Description: Constricted Patient Cognition Impaired: No Ability to Follow Directions: Fair Speech Pattern: Spontaneous Speech Memory Description: Remote Impaired Hallucinations: None (denies) Delusions: Not Present (none expressed) Thought Process: Distracted Thought Content: positive for [place], positive for Goal Oriented and positive for Suicidal Ideation (denies) Judgement: Fair Judgement and Insight: Improving Diagnostics Vital Signs (24Hr): Vital Signs - 24 hr 01/14/25 08:00 Respiratory Rate 16 BMI result Body Mass Index 35.2 Labs 12/29/24 14:22 12/29/24 14:22 Medications Medications Current Medications Al Hydroxide/Mg Hydroxide (Magnesium Hydrox/Alum Hydrox 30 Ml Oral.Susp) 30 ml PO Q6H PRN PRN Reason: Heartburn/Nausea Albuterol Sulfate (Albuterol Sulfate 90 Mcg 8 Gm Inhaler) 2 puff INHALE Q4H PRN PRN Reason: bronchospasm Hydroxyzine HCl (Hydroxyzine Hcl 25 Mg Tablet) 25 mg PO Q6H PRN PRN Reason: mild anxiety Ibuprofen (Ibuprofen 800 Mg Tablet) 800 mg PO Q8H PRN PRN Reason: Pain, Mild (Pain Scale 1-3) Last Admin: 01/13/25 12:46 Dose: 800 mg [place] Carbonate ([place] Carbonate Er 300 Mg Tablet.Er) 600 mg PO BEDTIME [facility] Last Admin: 01/13/25 21:12 Dose: 600 mg [place] Carbonate ([place] Carbonate Er 450 Mg Tablet.Er) 450 mg PO DAILY [facility] Last Admin: 01/14/25 07:58 Dose: 450 mg Magnesium Hydroxide (Milk Of Magnesia 30 Ml Oral.Susp) 30 ml PO DAILY PRN PRN Reason: Constipation Multivitamins/Vitamin C (Multivitamin Tablet) 1 tab PO DAILY [facility] Last Admin: 01/14/25 07:58 Dose: 1 tab Nicotine (Nicotine 21 Mg Patch.Td24) 21 mg TRANSDERMA DAILY PRN PRN Reason: smoking cessation Nicotine Polacrilex (Nicotine Polacrilex 2 Mg Gum) 4 mg BUCCAL Q2H PRN PRN Reason: Nicotine Cravings Olanzapine (Olanzapine 5 Mg Tablet) 5 mg PO TID PRN PRN Reason: agitation Olanzapine (Olanzapine Odt 10 Mg Tab.Rapdis) 20 mg TRANSLINGU BEDTIME [facility] Last Admin: 01/13/25 21:12 Dose: 20 mg Paliperidone Palmitate (Paliperidone Palmitate 234 Mg/1.5 Ml Syringe) 234 mg IM Q30D [facility] Last Admin: 01/04/25 08:25 Dose: 234 mg Trazodone HCl (Trazodone Hcl 50 Mg Tablet) 50 mg PO BEDTIME MRX1 PRN PRN Reason: Insomnia Last Admin: 01/09/25 21:26 Dose: 50 mg Vitamin D (Cholecalciferol (Vitamin D3) 10 Mcg Tablet) 10 mcg PO DAILY [facility] Last Admin: 01/14/25 07:58 Dose: 10 mcg Allergies Allergies Allergy/AdvReac Type Severity Reaction Status Date / Time acetaminophen (From TYLENOL) Allergy Intermediate HIVES Verified 12/29/24 14:09 meperidine (From Demerol) Allergy Unknown Verified 12/29/24 14:09 Assessment & Plan Assessment & Plan (1) Schizoaffective disorder: Qualifiers: Schizoaffective disorder type: bipolar Qualified Code(s): F25.0 - Schizoaffective disorder, bipolar type Status: Acute Code(s): F25.9 - Schizoaffective disorder, unspecified Plan Admit, Section XIIB, 15 minute checks Re-establish regime Clarify HCP status- HCP has signed pt into the unit. Encourage milieu Diagnostics as needed Collateral contact Discharge planning 12/31: EKG, lipid panel, a1c, ammonia, b12,folate 01/01: continue current management and treatment plan. 01/02: continue current management and treatment plan. 01/03: Invega INFANTE ordered as it is due on 01/04. 01/04: Continue tx 01/06: Continue tx 01/08 Pleasant on approach with [employer] underwriter;? she says she is doing okay and asks how va underwriter is doing and on ending conversation says to take care Otherwise same presentation, pacing the halls, taking medications without problem 01/09 CTP 01/12 Continue plan of care and discharge planning with her skilled nursing. [place] level 01/13 01/14 DC planning for 01/17 to return to her skilled nursing [place] level 01/15 Reason for continued inpatient stay Substantial Risk for: rapid decompensation Time Spent With Patient Time: Total time managing care of this patient today ____ minutes.
[2025-01-14] MEDS: OLANZapine ODT 10 MG TAB.RAPDIS 20 MG TRANSLINGU (21:01)
[2025-01-15 08:00] VITALS: RESP 18
[2025-01-15] MEDS: Cholecalciferol (Vitamin D3) 10 MCG TABLET PO (08:09)
--- NOTE | 2025-01-15 10:41 | HO.PSYCHPN ---
Subjective Subjective Reason For Visit: Decompensated Psychosis Diagnostics Vital Signs (24Hr): Vital Signs - 24 hr 01/15/25 08:00 Respiratory Rate 18 BMI result Body Mass Index 35.2 Labs 12/29/24 14:22 12/29/24 14:22 Medications Medications Current Medications Al Hydroxide/Mg Hydroxide (Magnesium Hydrox/Alum Hydrox 30 Ml Oral.Susp) 30 ml PO Q6H PRN PRN Reason: Heartburn/Nausea Albuterol Sulfate (Albuterol Sulfate 90 Mcg 8 Gm Inhaler) 2 puff INHALE Q4H PRN PRN Reason: bronchospasm Hydroxyzine HCl (Hydroxyzine Hcl 25 Mg Tablet) 25 mg PO Q6H PRN PRN Reason: mild anxiety Ibuprofen (Ibuprofen 800 Mg Tablet) 800 mg PO Q8H PRN PRN Reason: Pain, Mild (Pain Scale 1-3) Last Admin: 01/13/25 12:46 Dose: 800 mg [place] Carbonate ([place] Carbonate Er 300 Mg Tablet.Er) 600 mg PO BEDTIME [facility] Last Admin: 01/14/25 21:01 Dose: 600 mg [place] Carbonate ([place] Carbonate Er 450 Mg Tablet.Er) 450 mg PO DAILY [facility] Last Admin: 01/15/25 08:09 Dose: 450 mg Magn[place] Hydroxide (Milk Of Magnesia 30 Ml Oral.Susp) 30 ml PO DAILY PRN PRN Reason: Constipation Multivitamins/Vitamin C (Multivitamin Tablet) 1 tab PO DAILY [facility] Last Admin: 01/15/25 08:09 Dose: 1 tab Nicotine (Nicotine 21 Mg Patch.Td24) 21 mg TRANSDERMA DAILY PRN PRN Reason: smoking cessation Nicotine Polacrilex (Nicotine Polacrilex 2 Mg Gum) 4 mg BUCCAL Q2H PRN PRN Reason: Nicotine Cravings Olanzapine (Olanzapine 5 Mg Tablet) 5 mg PO TID PRN PRN Reason: agitation Olanzapine (Olanzapine Odt 10 Mg Tab.Rapdis) 20 mg TRANSLINGU BEDTIME [facility] Last Admin: 01/14/25 21:01 Dose: 20 mg Paliperidone Palmitate (Paliperidone Palmitate 234 Mg/1.5 Ml Syringe) 234 mg IM Q30D [facility] Last Admin: 01/04/25 08:25 Dose: 234 mg Trazodone HCl (Trazodone Hcl 50 Mg Tablet) 50 mg PO BEDTIME MRX1 PRN PRN Reason: Insomnia Last Admin: 01/09/25 21:26 Dose: 50 mg Vitamin D (Cholecalciferol (Vitamin D3) 10 Mcg Tablet) 10 mcg PO DAILY [facility] Last Admin: 01/15/25 08:09 Dose: 10 mcg Allergies Allergies Allergy/AdvReac Type Severity Reaction Status Date / Time acetaminophen (From TYLENOL) Allergy Intermediate HIVES Verified 12/29/24 14:09 meperidine (From Demerol) Allergy Unknown Verified 12/29/24 14:09 Assessment & Plan Assessment & Plan (1) Schizoaffective disorder: Qualifiers: Schizoaffective disorder type: bipolar Qualified Code(s): F25.0 - Schizoaffective disorder, bipolar type Status: Acute Code(s): F25.9 - Schizoaffective disorder, unspecified Plan Admit, Section XIIB, 15 minute checks Re-establish regime Clarify HCP status- HCP has signed pt into the unit. Encourage milieu Diagnostics as needed Collateral contact Discharge planning 12/31: EKG, lipid panel, a1c, ammonia, b12,folate 01/01: continue current management and treatment plan. 01/02: continue current management and treatment plan. 01/03: Invega INFANTE ordered as it is due on 01/04. 01/04: Continue tx 01/06: Continue tx 01/08 Pleasant on approach with lyric writer;? she says she is doing okay and asks how lyric writer is doing and on ending conversation says to take care Otherwise same presentation, pacing the halls, taking medications without problem 01/09 CTP 01/12 Continue plan of care and [place] [facility] [place] level 01/13 01/14 DC planning for 01/17 to return to [place] [facility] [place] level 01/15 Time Spent With Patient Time: Total time managing care of this patient today ____ minutes.
[2025-01-15 20:00] VITALS: RESP 16
[2025-01-15] MEDS: OLANZapine ODT 10 MG TAB.RAPDIS 20 MG TRANSLINGU (20:53)
[2025-01-16 08:00] VITALS: RESP 18
[2025-01-16] MEDS: Cholecalciferol (Vitamin D3) 10 MCG TABLET PO (10:25)
--- NOTE | 2025-01-16 13:27 | P.PNPSI_ITS ---
Subjective Subjective Reason For Visit: Decompensated Psychosis Diagnostics Vital Signs (24Hr): Vital Signs - 24 hr 01/15/25 20:00 01/16/25 08:00 Respiratory Rate 16 18 BMI result Body Mass Index 35.2 Labs 12/29/24 14:22 12/29/24 14:22 Medications Medications Current Medications Al Hydroxide/Mg Hydroxide (Magnesium Hydrox/Alum Hydrox 30 Ml Oral.Susp) 30 ml PO Q6H PRN PRN Reason: Heartburn/Nausea Albuterol Sulfate (Albuterol Sulfate 90 Mcg 8 Gm Inhaler) 2 puff INHALE Q4H PRN PRN Reason: bronchospasm Hydroxyzine HCl (Hydroxyzine Hcl 25 Mg Tablet) 25 mg PO Q6H PRN PRN Reason: mild anxiety Ibuprofen (Ibuprofen 800 Mg Tablet) 800 mg PO Q8H PRN PRN Reason: Pain, Mild (Pain Scale 1-3) Last Admin: 01/13/25 12:46 Dose: 800 mg [place] Carbonate ([place] Carbonate Er 300 Mg Tablet.Er) 600 mg PO BEDTIME [facility] Last Admin: 01/15/25 20:54 Dose: 600 mg [place] Carbonate ([place] Carbonate Er 450 Mg Tablet.Er) 450 mg PO DAILY [facility] Last Admin: 01/16/25 10:25 Dose: 450 mg [place] Hydroxide (Milk Of Magnesia 30 Ml Oral.Susp) 30 ml PO DAILY PRN PRN Reason: Constipation Multivitamins/Vitamin C (Multivitamin Tablet) 1 tab PO DAILY [facility] Last Admin: 01/16/25 10:25 Dose: 1 tab Nicotine (Nicotine 21 Mg Patch.Td24) 21 mg TRANSDERMA DAILY PRN PRN Reason: smoking cessation Nicotine Polacrilex (Nicotine Polacrilex 2 Mg Gum) 4 mg BUCCAL Q2H PRN PRN Reason: Nicotine Cravings Olanzapine (Olanzapine 5 Mg Tablet) 5 mg PO TID PRN PRN Reason: agitation Olanzapine (Olanzapine Odt 10 Mg Tab.Rapdis) 20 mg TRANSLINGU BEDTIME [facility] Last Admin: 01/15/25 20:53 Dose: 20 mg Paliperidone Palmitate (Paliperidone Palmitate 234 Mg/1.5 Ml Syringe) 234 mg IM Q30D [facility] Last Admin: 01/04/25 08:25 Dose: 234 mg Trazodone HCl (Trazodone Hcl 50 Mg Tablet) 50 mg PO BEDTIME MRX1 PRN PRN Reason: Insomnia Last Admin: 01/09/25 21:26 Dose: 50 mg Vitamin D (Cholecalciferol (Vitamin D3) 10 Mcg Tablet) 10 mcg PO DAILY [facility] Last Admin: 01/16/25 10:25 Dose: 10 mcg Allergies Allergies Allergy/AdvReac Type Severity Reaction Status Date / Time acetaminophen (From TYLENOL) Allergy Intermediate HIVES Verified 12/29/24 14:09 meperidine (From Demerol) Allergy Unknown Verified 12/29/24 14:09 Assessment & Plan Assessment & Plan (1) Schizoaffective disorder: Qualifiers: Schizoaffective disorder type: bipolar Qualified Code(s): F25.0 - Schizoaffective disorder, bipolar type Status: Acute Code(s): F25.9 - Schizoaffective disorder, unspecified Plan Admit, Section XIIB, 15 minute checks Re-establish regime Clarify HCP status- HCP has signed pt into the unit. Encourage milieu Diagnostics as needed Collateral contact Discharge planning 12/31: EKG, lipid panel, a1c, ammonia, b12,folate 01/01: continue current management and treatment plan. 01/02: continue current management and treatment plan. 01/03: Invega INFANTE ordered as it is due on 01/04. 01/04: Continue tx 01/06: Continue tx 01/08 Pleasant on approach with senior grant writer;? she says she is doing okay and asks how senior grant writer is doing and on ending conversation says to take care Otherwise same presentation, pacing the halls, taking medications without problem 01/09 CTP 01/12 Continue plan of care and discharge planning with her halfway. [place] level 01/13 01/14 DC planning for 01/17 to return to her halfway [place] level 01/15 Time Spent With Patient Time: Total time managing care of this patient today ____ minutes.
[2025-01-16] MEDS: OLANZapine ODT 10 MG TAB.RAPDIS 20 MG TRANSLINGU (21:06)
[2025-01-17 08:00] VITALS: RESP 18
[2025-01-17] MEDS: Cholecalciferol (Vitamin D3) 10 MCG TABLET PO (09:49)
--- NOTE | 2025-01-17 18:27 | P.DS_ITS ---
DS: Providers Provider Date of admission: 12/29/24 16:21 Primary care physician: Unknown Physician DS: Diagnosis Discharge Diagnosis (1) Schizoaffective disorder: Status: Acute DS: Medications Discharge Medications Home Medications: Previous Rx's ?Medication ?Instructions ?Recorded albuterol sulfate 90 mcg/actuation 2 puff inhalation Q 4-6H PRN 10/25/24 aerosol inhaler (Ventolin HFA) bronchospasm #8.5 grams fluocinolone acetonide oil 0.01 % 5 drp otic (ears) BI D PRN ear 10/25/24 ear drops (DermOtic Oil) itching 7 days #20 mL ibuprofen 600 mg tablet 600 mg PO Q8H PRN pain #30 t abs 10/25/24 cholecalciferol (vitamin D3) 10 10 mcg PO DAILY 30 day s #30 tabs 01/17/25 mcg (400 unit) tablet (Vitamin D3) lithium carbonate 300 mg 600 mg (2 x 300 mg) PO BEDTI ME 30 01/17/25 tablet,extended release days #60 tabs lithium carbonate 450 mg 450 mg PO DAILY 30 days #30 tabs 01/17/25 tablet,extended release multivitamin (Daily Multi-Vitamin 1 tab PO DAILY 30 da ys #30 tabs 01/17/25 tablet) olanzapine 10 mg disintegrating 20 mg (2 x 10 mg) serrano slingual 01/17/25 tablet BEDTIME #30 tabs paliperidone palmitate 234 mg/1.5 234 mg (1.5 mL) IM Q 30D #1.5 mL 01/17/25 mL intramuscular syringe (Invega Sustenna) trazodone 50 mg tablet 50 mg PO BEDTIME MRX1 PRN In somnia 01/17/25 #30 tabs DS: Summary Time Spent with Patient Time attestation: Total time managing care of this patient today ____ minutes. Discharge Plan Discharge Anticipated Discharge Date/Time: 01/17/25 12:00 Patient Disposition: Xfer Other Discharge Diagnosis: Schizoaffective Disorder Cannabis Use Disorder Referrals: Physician,Unknown J [Primary Care Provider, Medical] Referral Note: Because you declined to sign a release of information for your primary care provider, the records of this hospitalization were not forwarded. If you would like your records sent to your PCP in the future, please call the hospital and ask for Medical Records. Discharge Medications: New olanzapine 10 mg Tablet,Disintegrating 20 mg translingual BEDTIME Qty: 30 0RF trazodone 50 mg Tablet 50 mg PO BEDTIME MRX1 PRN (Reason: Insomnia) Qty: 30 0RF Continued multivitamin [Daily Multi-Vitamin] Tablet 1 tab PO DAILY 30 Days Qty: 30 12RF lithium carbonate 300 mg tablet extended release 600 mg PO BEDTIME 30 Days Qty: 60 0RF lithium carbonate 450 mg tablet extended release 450 mg PO DAILY 30 Days Qty: 30 0RF cholecalciferol (vitamin D3) [Vitamin D3] 10 mcg (400 unit) tablet 10 mcg PO DAILY 30 Days Qty: 30 12RF Invega Sustenna 234 mg/1.5 mL syringe 234 mg IM Q30D Qty: 1.5 0RF albuterol sulfate [Ventolin HFA] 90 mcg/actuation HFA aerosol inhaler 2 puff inhalation Q4-6H PRN (Reason: bronchospasm) Qty: 8.5 1RF ibuprofen 600 mg tablet 600 mg PO Q8H PRN (Reason: pain) Qty: 30 0RF fluocinolone acetonide oil [DermOtic Oil] 0.01 % drops 5 drp otic (ears) BID PRN (Reason: ear itching) 7 Days Qty: 20 0RF Discontinued olanzapine 20 mg Tablet,Disintegrating 20 mg BEDTIME metronidazole 0.75 % gel 1 appl TOPICAL DAILY Qty: 1 0RF olanzapine 10 mg tablet,disintegrating 20 mg translingual BEDTIME 30 Days Qty: 60 0RF Dermacerin(petrolatum-min.oil) Cream 1 appl topical BID Qty: 1 1RF Protocol: Apply to: Apply to: dry skin face Discharge Orders: Discharge Order (Routine); Ordered 01/17/25 Ordered By: Carolin Reyes Diet: Advance to usual diet Activity on Discharge: As tolerated Stand Alone Forms: Patient Portal Discharge page, Community Support Print Language: Afghan Care Plan Goals: Mood and Behavioral Stabilization Abstinence from Cannabis Health Concerns: Mood and Behavioral Stabilization Abstinence from Cannabis Plan of Treatment: Attend scheduled appointments Take medications as directed Invega Sustenna injection will be given on 02/04/25 Call/Return as needed Assessment: Pt prepared to discharge. No SI,HI,AH,VH Pt prefers not to discuss medications or have medication education Discharge Date/Time: 01/17/25 11:20
== END 2025-01-17 11:20 | disposition other institution (70) | DRG 885 ==
LOC: HO.ED 16:55 → HO.PM5 17:19
PROVIDERS: Admitting Provider Psychiatry & Neurology Psychiatry; Emergency Provider Emergency Medicine; Visit Provider Clinical Nurse Specialist Psychiatric/Mental Health, Adult
DX: F25.0 Schizoaffective disorder, bipolar type (principal); F17.210 Nicotine dependence, cigarettes, uncomplicated; F12.90 Cannabis use, unspecified, uncomplicated; Z71.6 Tobacco abuse counseling; Z20.822 Contact with and (suspected) exposure to COVID-19; Z79.899 Other long term (current) drug therapy
CPT/HCPCS: 36415; 80048; 80061; 80076; 80178; 80307; 81001; 82140; 82607; 82746; 83036; 83735; 84443; 85025; 87635; 99285; J2426

== ENCOUNTER → 2024-12-29 16:21 | Outpatient (BNV) | payer MEDICARE, MEDICAID, SELFPAY | PROVIDERS: Admitting Provider Psychiatry & Neurology Psychiatry; Emergency Provider Emergency Medicine; Visit Provider Clinical Nurse Specialist Psychiatric/Mental Health, Adult | DX: F25.0 Schizoaffective disorder, bipolar type (principal); F12.90 Cannabis use, unspecified, uncomplicated | CPT/HCPCS: 90792; 99231; 99232 ==